=== PATIENT | female | born 1935 | race Caucasian/White ===

== ENCOUNTER → 2017-10-09 13:54 | Outpatient (CLI) | payer MEDICARE, OTHER, SELFPAY ==
[2017-10-09 14:15] LABS: International Normalized Ratio 2.6; Prothrombin Time (Protime)PT. 28.2 SECONDS (11.7-14.9)
== END ==
PROVIDERS: Visit Provider Internal Medicine Cardiovascular Disease
DX: I48.0 Paroxysmal atrial fibrillation (principal)
CPT/HCPCS: 85610

== ENCOUNTER → 2017-10-15 10:35 | Day surgery (SDC) | payer MEDICARE, OTHER, SELFPAY ==
[2017-10-15 11:21] LABS: Prothrombin Time Fingerstick 36.1 SEC (11.9-14.4)
--- NOTE | 2017-10-15 12:32 | PCM.OP.BLANK ---
Operative Report Date of Procedure: 10/15/17 CONSCIOUS SEDATION REPORT DATE OF SERVICE: October 15, 2017 BRIEF HISTORY OF PRESENT ILLNESS: The patient is an 82-year-old female who presented to the hospital today for an elective outpatient cardioversion due to underlying atrial fibrillation. The patient's last surface echocardiogram revealed an intact, normal ejection fraction. The patient is currently anticoagulated on Coumadin and receives amiodarone daily. She has a long-standing history of exertional dyspnea and chronic diastolic dysfunction. She denies any previous anesthetic complications. She has no known history of obstructive sleep apnea, asthma or COPD. The patient does not utilize supplemental oxygen at her baseline. PHYSICAL EXAMINATION: VITAL SIGNS: Reviewed and were acceptable. GENERAL: The patient is a pleasant female, in no apparent distress, speaking in full sentences. HEENT: Normocephalic, atraumatic. Mucous membranes are moist and pink. Good mouth opening noted. Trachea is midline. Good neck mobility. CHEST: S1, S2 irregularly irregular. No murmurs, rubs or gallops were noted. LUNGS: Clear to auscultation bilaterally without appreciable wheezes, rales or rhonchi. ABDOMEN: Soft, nontender, nondistended. Positive bowel sounds. EXTREMITIES: There is no clubbing, cyanosis or edema. ASA Class: II DESCRIPTION OF PROCEDURE: After confirmation of informed consent, the patient's anesthesia plan was reviewed in detail. Propofol was chosen. Risks and benefits were reviewed and the patient agreed to proceed. At 1210, the patient was given 40 mg of propofol. The patient achieved an appropriate level of sedation and was given a 200 joule synchronized cardioversion by Dr. Salvador at the bedside. This was initially unsuccessful in achieving normal sinus rhythm. Therefore, an additional 20 mg of propofol was administered. However, shortly after the administration of the patient's second bolus of propofol, she spontaneously converted to sinus rhythm. Therefore, a second shock was never delivered. In total, the patient received 60 mg of propofol throughout the procedure. The patient was monitored until 1222, at which time she reached her baseline mental status and function. The patient tolerated the procedure well. COMPLICATIONS: None ESTIMATED BLOOD LOSS: None RECOMMENDATIONS: Okay to recover in usual fashion.
--- NOTE | 2017-10-15 12:53 | PCM.OP.BLANK ---
Operative Report Date of Procedure: 10/15/17 DC cardioversion. Atrial fibrillation. Patient has a history of chronic persistent atrial fibrillation recently started on amiodarone. And brought in for an elective DC cardioversion. Patient is a patient of Dr. Gordon Vanegas. After informed consent was obtained anterior posterior pads were applied appropriately. The patient was seen by Dr. Rod of the medical care division. She was administered 40 mg of intravenous propofol and 200 J of DC cardioversion were applied. The patient reverted to sinus rhythm but then went back into atrial fibrillation intermittently. The patient was then administered at additional 20 mg of intravenous propofol and just before repeat DC cardioversion patient was noted to convert back to sinus rhythm. An EKG was done to confirm the above. Conclusion 1's Successful DC cardioversion to sinus rhythm. Follow-up as per Dr. Vanegas.
== END ==
PROVIDERS: Family Provider Internal Medicine; PCP Internal Medicine; Visit Provider Internal Medicine Cardiovascular Disease
DX: I48.0 Paroxysmal atrial fibrillation (principal); I35.1 Nonrheumatic aortic (valve) insufficiency; I07.1 Rheumatic tricuspid insufficiency; I50.9 Heart failure, unspecified; I27.20 Pulmonary hypertension, unspecified; E78.5 Hyperlipidemia, unspecified; D64.9 Anemia, unspecified; Z79.01 Long term (current) use of anticoagulants; Z79.82 Long term (current) use of aspirin; Z79.899 Other long term (current) drug therapy
CPT/HCPCS: 36416; 85610; 92960; 93005; J7040

== ENCOUNTER → 2018-01-05 09:33 | Outpatient (CLI) | payer MEDICARE, OTHER, SELFPAY ==
--- NOTE | 2018-01-05 09:33 | DT_ITS ---
This patient was seen during an EMR downtime January 04, 2018 - January 11, 2018. This patient may have a combination of paper and electronic documentation or all paper documentation. All documentation is viewable within the e-chart portion of [facility] for each patient visit.
--- NOTE | 2018-01-11 11:12 | PFT ---
INTRODUCTION: The patient is an 82-year-old female who presents for pulmonary function testing secondary to a diagnosis of dyspnea. Respiratory therapy reports good patient effort. Bronchodilators were used during testing. INTERPRETATION: Forced expiration spirometry demonstrates no evidence of a large airways obstructive ventilatory defect. There was no significant response to aerosolized bronchodilators. Spirograms are of good quality and plateau gradually. Body plethysmography was performed and reveals lung volumes to be within normal limits. Diffusing capacity by single breath CO is mildly reduced at 63% of predicted. IMPRESSION: These pulmonary function studies demonstrate the presence of an isolated mild reduction in diffusing capacity. There have been no significant changes since PFTs were last completed in April 2017.
== END ==
PROVIDERS: Family Provider Internal Medicine; PCP Internal Medicine; Visit Provider Internal Medicine Critical Care Medicine
DX: R06.09 Other forms of dyspnea (principal)
CPT/HCPCS: 94060; 94726; 94729

== ENCOUNTER → 2018-01-07 14:16 | Outpatient (CLI) | payer MEDICARE, OTHER, SELFPAY ==
[2018-01-07 11:25] VITALS: PULSE 67; PULSE 71; PULSE 72; PULSE 73; PULSE 77; PULSE 78; PULSE 81; O2SAT 93; O2SAT 94; O2SAT 95; O2SAT 96; O2SAT 97
--- NOTE | 2018-01-07 14:16 | DT_ITS ---
This patient was seen during an EMR downtime January 04, 2018 - January 11, 2018. This patient may have a combination of paper and electronic documentation or all paper documentation. All documentation is viewable within the e-chart portion of [facility] for each patient visit.
--- NOTE | 2018-01-11 11:30 | CPS ---
Testing done by Sandra Abreu RRT.
--- NOTE | 2018-01-11 11:58 | WT_ITS ---
PSN 6 Minute Walk Test - 6 Minute Walk Test 6 Minute Walk Test: 6 Minute Walk Test PSN:6-Minute Walk Test Start: 01/11/18 11: 24 Freq: Status: Active Protocol: [id number].[id number] Document 01/07/18 11:25 [email or web address] (Rec: 01/11/18 11:30 THAIS [id number]) 6 Minute Walk Test Date Performed 01/07/18 Time Performed 11:00 Height 5 ft 8 in Weight: 153 lb Weight in Pounds 153.[address]: Primo Webster Assistive device used: None Pre-test Oxygen Delivery Method Room Air Pulse Ox (%) 95 Pulse Rate (60-100 beats/min) 67 Dyspnea Roman Scale (0-10) 1 Exertion Roman Scale (6-20) 6 1st minute Oxygen Delivery Method Room Air Pulse Ox (%) 94 Pulse Rate (60-100 beats/min) 81 2nd minute Oxygen Delivery Method Room Air Pulse Ox (%) 93 Pulse Rate (60-100 beats/min) 73 3rd minute Oxygen Delivery Method Room Air Pulse Ox (%) 97 Pulse Rate (60-100 beats/min) 71 4th minute Oxygen Delivery Method Room Air Pulse Ox (%) 96 Pulse Rate (60-100 beats/min) 78 5th minute Oxygen Delivery Method Room Air Pulse Ox (%) 94 Pulse Rate (60-100 beats/min) 77 6th minute Oxygen Delivery Method Room Air Pulse Ox (%) 96 Pulse Rate (60-100 beats/min) 72 Post-test Oxygen Delivery Method Room Air Pulse Ox (%) 95 Pulse Rate (60-100 beats/min) 71 Dyspnea Roman Scale (0-10) 1 Exertion Roman Scale (6-20) 6 Full Laps Walked 18 Partial Lap, Number of Tiles Walked 0 Total Distance Walked (ft) 1062 01/11/18 11:30 Cardiopulmonary Services by Yumi Romeo Testing done by Sandra Abreu RRT. Initialized on 01/11/18 11:30 - END OF NOTE - Interpretation Interpretation: The patient ambulated 1062 feet over the course of 6 minutes beginning on room air without assistive devices or breaks. Pretesting oxygen saturation was noted to be 95% on room air. With ambulation, the james oxygen saturation was 93%. There was no significant exertional oxygen desaturation noted. - Recommendations Recommendations: There is no indication for the use of supplemental oxygen at this time.
== END ==
PROVIDERS: Family Provider Internal Medicine; PCP Internal Medicine; Visit Provider Internal Medicine Critical Care Medicine
DX: R06.09 Other forms of dyspnea (principal)
CPT/HCPCS: 94618

== ENCOUNTER → 2018-06-23 08:58 | Outpatient (CLI) | payer MEDICARE, OTHER, SELFPAY ==
[2018-06-23 09:28] LABS: Prothrombin Time (Protime)PT. 37.3 SECONDS (11.7-14.9)
[2018-06-23 09:39] LABS: International Normalized Ratio 3.7
== END ==
PROVIDERS: Family Provider Internal Medicine; PCP Internal Medicine; Referring Provider Internal Medicine Cardiovascular Disease; Visit Provider Internal Medicine Cardiovascular Disease
DX: I48.91 Unspecified atrial fibrillation (principal)
CPT/HCPCS: 85610

== ENCOUNTER → 2018-09-08 13:23 | Outpatient (CLI) | payer MEDICARE, OTHER, SELFPAY ==
[2018-07-05 09:19] VITALS: BMI 24.3
[2018-09-08 13:44] LABS: International Normalized Ratio 2.6; Prothrombin Time (Protime)PT. 28.3 SECONDS (11.7-14.9)
== END ==
PROVIDERS: Family Provider Internal Medicine; PCP Internal Medicine; Referring Provider Internal Medicine Cardiovascular Disease; Visit Provider Internal Medicine Cardiovascular Disease
DX: I48.91 Unspecified atrial fibrillation (principal)
CPT/HCPCS: 85610

== ENCOUNTER → 2018-09-23 15:23 | Outpatient (CLI) | payer MEDICARE, OTHER, SELFPAY ==
[2018-07-05 09:19] VITALS: BMI 24.3
[2018-09-23 16:27] LABS: International Normalized Ratio 2.2; Prothrombin Time (Protime)PT. 24.1 SECONDS (11.7-14.9)
== END ==
PROVIDERS: Family Provider Internal Medicine; PCP Internal Medicine; Referring Provider Internal Medicine Cardiovascular Disease; Visit Provider Internal Medicine Cardiovascular Disease
DX: I48.91 Unspecified atrial fibrillation (principal)
CPT/HCPCS: 85610

== ENCOUNTER → 2018-10-21 15:15 | Outpatient (CLI) | payer MEDICARE, OTHER, SELFPAY ==
[2018-07-05 09:19] VITALS: BMI 24.3
[2018-10-21 15:38] LABS: International Normalized Ratio 2.6; Prothrombin Time (Protime)PT. 28.3 SECONDS (11.7-14.9)
== END ==
PROVIDERS: Family Provider Internal Medicine; PCP Internal Medicine; Referring Provider Internal Medicine Cardiovascular Disease; Visit Provider Internal Medicine Cardiovascular Disease
DX: I48.91 Unspecified atrial fibrillation (principal)
CPT/HCPCS: 85610

== ENCOUNTER → 2018-11-04 15:22 | Outpatient (CLI) | payer MEDICARE, OTHER, SELFPAY ==
[2018-07-05 09:19] VITALS: BMI 24.3
[2018-11-04 16:05] LABS: International Normalized Ratio 3.2; Prothrombin Time (Protime)PT. 32.6 SECONDS (11.7-14.9)
== END ==
PROVIDERS: Family Provider Internal Medicine; PCP Internal Medicine; Referring Provider Internal Medicine Cardiovascular Disease; Visit Provider Internal Medicine Cardiovascular Disease
DX: I48.91 Unspecified atrial fibrillation (principal)
CPT/HCPCS: 85610

== ENCOUNTER 2018-12-21 11:10 | Outpatient (RCR) | payer MEDICARE, OTHER, SELFPAY ==
[2018-07-05 09:19] VITALS: BMI 24.3
[2018-12-08 14:37] LABS: International Normalized Ratio 2.7; Prothrombin Time (Protime)PT. 28.7 SECONDS (11.7-14.9)
[2018-12-21 11:26] LABS: Prothrombin Time Fingerstick 33.7 SEC (11.9-14.4)
== END 2018-12-21 12:00 | disposition home or self-care (01) ==
LOC: MTLAB 11:10
PROVIDERS: Family Provider Internal Medicine; PCP Internal Medicine; Referring Provider Internal Medicine Cardiovascular Disease; Visit Provider Internal Medicine Cardiovascular Disease
DX: I11.0 Hypertensive heart disease with heart failure (principal); I50.32 Chronic diastolic (congestive) heart failure; R06.09 Other forms of dyspnea; T84.84XA Pain due to internal orthopedic prosthetic devices, implants and grafts, initial encounter; I48.91 Unspecified atrial fibrillation; E03.9 Hypothyroidism, unspecified; G47.01 Insomnia due to medical condition; F41.9 Anxiety disorder, unspecified; Z96.652 Presence of left artificial knee joint; Z79.01 Long term (current) use of anticoagulants; Z51.81 Encounter for therapeutic drug level monitoring
CPT/HCPCS: 36415; 36416; 85610

== ENCOUNTER → 2018-12-28 | Outpatient (CLI) | payer MEDICARE, OTHER, SELFPAY ==
[2018-07-05 09:19] VITALS: BMI 24.3
--- NOTE | 2018-12-28 15:58 | PFTCOMP ---
COMPLETE PULMONARY FUNCTION TEST INTERPRETATION Brief HPI: Patient is an 83 year old female, currently under the care of myself, who presents to [facility] for complete pulmonary function tests secondary to diagnosis of dyspnea. Respiratory therapist reports good effort and reproducible results. Interpretation: Forced expiration spirometry shows no large airways obstructive ventilatory defect with an FEV1 of 86% predicted. There is no significant bronchodilator response by strict ATS criteria. Spirograms are of good quality and plateau slowly, indicating slowly emptying areas of the lungs. The respiratory flow volume loop shows decreased expiratory flow rates at high lung volumes consistent with small airways obstruction. Lung volumes by body plethysmography show a normal total lung capacity at 5.16 L, 93% predicted. All other lung volumes are within normal limits. Diffusion capacity by carbon monoxide is at the lower limit of normal at 67% predicted. The airway resistance is normal. Compared to previous pulmonary function tests from 01/05/2018, there has been no significant change. Impression: Isolated reduction diffusion capacity with some stigmata of possible small airways disease. No significant change compared to previous.
== END | disposition home or self-care (01) ==
LOC: PSN 09:55
PROVIDERS: Family Provider Internal Medicine; PCP Internal Medicine; Referring Provider Nurse Practitioner Acute Care; Visit Provider Nurse Practitioner Acute Care
DX: R06.09 Other forms of dyspnea (principal)
CPT/HCPCS: 94060; 94726; 94729

== ENCOUNTER → 2019-01-13 | Outpatient (CLI) | payer MEDICARE, OTHER, SELFPAY ==
[2019-01-13 10:02] VITALS: BMI 23.8
--- NOTE | 2019-01-13 11:29 | RAD_ITS ---
STUDY: X-RAY CHEST REASON FOR EXAM: Female, 83 years old. Congestive heart failure. TECHNIQUE: PA and lateral views of the chest. COMPARISON: Comparison is made with prior examination dated January 25, 2015. FINDINGS: Hyperinflation. There is no demonstrated pleural abnormality. There is mild cardiac enlargement. Normal mediastinum and debi. Normal visualized pulmonary arteries. There is atherosclerotic calcification of the aortic arch with tortuosity. Normal visualized thoracic spine. Healed right rib fracture. There is no demonstrated abnormality of the visualized soft tissue structures of the upper abdomen. RAD/Chest PA and Lateral IMPRESSION: Hyperinflation. No acute abnormality is seen. Electronically Signed: Lang Dasilva, at 12:51 EDT , Service support ,
[2019-01-13 12:00] LABS: Prothrombin Time Fingerstick 39.4 SEC (11.9-14.4)
== END | disposition home or self-care (01) ==
LOC: RAD 11:44 → LAB 11:45
PROVIDERS: Family Provider Internal Medicine; PCP Internal Medicine; Referring Provider Internal Medicine Cardiovascular Disease; Visit Provider Internal Medicine Cardiovascular Disease
DX: I48.91 Unspecified atrial fibrillation (principal); I48.92 Unspecified atrial flutter; I50.32 Chronic diastolic (congestive) heart failure; I48.0 Paroxysmal atrial fibrillation; Z79.01 Long term (current) use of anticoagulants
CPT/HCPCS: 36416; 71046; 85610

== ENCOUNTER → 2019-01-28 | Outpatient (CLI) | payer MEDICARE, OTHER, SELFPAY ==
[2019-01-13 10:02] VITALS: BMI 23.8
[2019-01-26 11:01] VITALS: BMI 23.7
--- NOTE | 2019-01-28 13:02 | ECHOD_ITS ---
Reason For Study: Afib/Flutter Procedure This was a 2D Doppler, Color Flow transthoracic echocardiogram. Exam performed in department. Left Ventricle Normal LV size. Left ventricular systolic function is normal. The estimated ejection fraction is 60 %. Unable to assess diastolic dysfunction. No regional wall motion abnormalities noted. Right Ventricle Normal RV size. Normal systolic function. Atria The left atrium is severely enlarged. The right atrium is severely enlarged. No doppler evidence for ASD. Mitral Valve There is mild to moderate mitral annular calcification. Extension of the mitral annular calcification onto the posterior mitral valve leaflet. Mild diffuse mitral valve thickening. Moderate (2+) mitral valve insufficiency. Tricuspid Valve Normal tricuspid valve. Moderately severe (3+) eccentric tricuspid valve insufficiency. Right ventricular systolic pressure estimated to be 51 mmHg. Aortic Valve Trisinus/trileaflet aortic valve. Mild diffuse aortic valve thickening. Mild focal aortic valve calcification. Aortic sclerosis, no stenosis. Pulmonic Valve The pulmonic valve is not well visualized. Trivial pulmonic valve insufficiency. Great Vessels Normal sized aortic root. Pericardium/Pleural No pericardial effusion. MMode/2D Measurements & Calculations LVIDd: 4.7 cm IVSd: 1.2 cm LVOT diam: 2.0 cm LVIDs: 2.8 cm LVPWd: 0.92 cm LVOT area: 3.0 cm2 RVDd: 3.5 cm FS: 40.4 % Ao root diam: 3.6 cm LAV(MOD-sp4): 102.6 ml Aortic Valve Planimetry: 1.7 cm2 LA dimension: 4.8 cm LA A4 area: 30.2 cm2 RA A4 area: 25.6 cm2 Time Measurements MV dec time: 0.24 sec Doppler Measurements & Calculations MV E max kameron: 93.8 cm/sec Med Peak E' Kameron: 5.1 cm/sec MV V2 max: 101.1 cm/sec E/E' med: 18.5 MV max P.1 mmHg MV V2 mean: 51.8 cm/sec MV mean P.3 mmHg MV V2 VTI: 28.6 cm MVA(VTI): 2.6 cm2 MV P1/2t max kameron: 102.1 cm/sec Ao V2 max: 159.6 cm/sec LV V1 max: 107.8 cm/sec MV P1/2t: 73.6 msec Ao max P.2 mmHg LV V1 max P.7 mmHg MV dec slope: 406.3 cm/sec2 Ao V2 mean: 105.6 cm/sec LV V1 mean P.3 mmHg Ao mean P.1 mmHg LV V1 mean: 69.4 cm/sec MVA(P1/2t): 3.0 cm2 Ao V2 VTI: 36.2 cm LV V1 VTI: 24.6 cm ROSA(I,D): 2.0 cm2 ROSA(V,D): 2.0 cm2 MR max kameron: 530.9 cm/sec SV(LVOT): 73.8 ml PA V2 max: 91.5 cm/sec MR max P.7 mmHg MR mean kameron: 409.4 cm/sec MR mean P.4 mmHg MR VTI: 194.8 cm PI end-d kameron: 175.3 cm/sec TR max kameron: 347.4 cm/sec TR max P.3 mmHg Interpretation Summary Left ventricular systolic function is normal. The estimated ejection fraction is 60 %. The left atrium is severely enlarged. The right atrium is severely enlarged. There is mild to moderate mitral annular calcification. Extension of the mitral annular calcification onto the posterior mitral valve leaflet. Mild diffuse mitral valve thickening. Moderate (2+) mitral valve insufficiency. Moderately severe (3+) eccentric tricuspid valve insufficiency. Aortic sclerosis, no stenosis. Trivial pulmonic valve insufficiency. Right ventricular systolic pressure estimated to be 51 mmHg. Unable to assess diastolic dysfunction. Ordering Physician: Kash Babin Referring Physician: Kash Babin Performed By: Vignesh Prieto RCS
== END | disposition home or self-care (01) ==
LOC: CVS 13:01
PROVIDERS: Family Provider Internal Medicine; PCP Internal Medicine; Referring Provider Internal Medicine Cardiovascular Disease; Visit Provider Internal Medicine Cardiovascular Disease
DX: I27.20 Pulmonary hypertension, unspecified (principal); I48.91 Unspecified atrial fibrillation; I48.92 Unspecified atrial flutter; I50.32 Chronic diastolic (congestive) heart failure; I50.23 Acute on chronic systolic (congestive) heart failure
CPT/HCPCS: 93225; 93226; 93306

== ENCOUNTER 2019-03-01 10:17 | Outpatient (RCR) | payer MEDICARE, OTHER, SELFPAY ==
[2018-07-05 09:19] VITALS: BMI 24.3
[2019-01-26 11:01] VITALS: BMI 23.7
[2019-02-10 13:16] LABS: Prothrombin Time Fingerstick 42.2 SEC (11.9-14.4)
[2019-02-10 14:40] LABS: International Normalized Ratio 3.4; Prothrombin Time (Protime)PT. 34.3 SECONDS (11.7-14.9)
[2019-03-01 12:22] LABS: International Normalized Ratio 4.4; Prothrombin Time (Protime)PT. 42.2 SECONDS (11.7-14.9)
[2019-03-01 12:31] LABS: ALB/GLOB Ratio 0.9 RATIO (0.9-2.4); AST(SGOT) 29 U/L (15-37); Alanine Aminotransfer ALT/SGPT 29 U/L (13-56); Albumin, Serum 3.8 g/dL (3.2-5.0); Alkaline Phosphatase 90 U/L (45-117); Anion Gap 6 (5-15); BUN 16 mg/dL (7-18); BUN/Creat Ratio 15.5 RATIO (10-20); Calcium,Total 8.7 mg/dL (8.5-10.1); Chloride 102 mmol/L (98-107); Creatinine, Serum 1.03 mg/dL (0.55-1.02); EST Glomerular Filtration Rate 55 mL/min (>60); Est Glom Filt Rate - Afr Amer 66 mL/min (>60); Globulin 4.1 g/dL (2.2-4.2); Glucose 68 mg/dL (74-106); Protein, Total 7.9 g/dL (6.4-8.2); Sodium Level 139 mmol/L (136-145)
[2019-03-01 12:36] LABS: Vitamin D,25 Hydroxy 32.4 ng/mL (29.95-100.01)
== END 2019-03-02 23:59 ==
LOC: BIMLAB 10:17
PROVIDERS: Internal Medicine; Family Provider Internal Medicine; PCP Internal Medicine; Referring Provider Internal Medicine Cardiovascular Disease; Visit Provider Internal Medicine Cardiovascular Disease
DX: I48.91 Unspecified atrial fibrillation (principal); I11.0 Hypertensive heart disease with heart failure; I50.32 Chronic diastolic (congestive) heart failure; R06.09 Other forms of dyspnea; T84.84XA Pain due to internal orthopedic prosthetic devices, implants and grafts, initial encounter; E03.9 Hypothyroidism, unspecified; G47.01 Insomnia due to medical condition; F41.9 Anxiety disorder, unspecified; Z96.652 Presence of left artificial knee joint; Z51.81 Encounter for therapeutic drug level monitoring; Z79.01 Long term (current) use of anticoagulants; M85.80 Other specified disorders of bone density and structure, unspecified site
CPT/HCPCS: 36415; 36416; 80053; 82306; 85610

== ENCOUNTER → 2019-03-08 | Outpatient (CLI) | payer MEDICARE, OTHER, SELFPAY ==
[2019-03-01 09:27] VITALS: BMI 23.6
--- NOTE | 2019-03-08 09:36 | BD_ITS ---
STUDY: DUAL ENERGY X-RAY ABSORPTIOMETRY / DXA REASON FOR EXAM: Female, 83 years old. The patient is postmenopausal. Loss of height. TECHNIQUE: Bone Mineral Density (BMD) measurements of lumbar spine and bilateral hips were obtained. COMPARISON: Comparison is made with prior examination dated March 13, 2003. FINDINGS: Lumbar Spine (L1-L4): g/cm2 (0.888) / T-score (-2.4) / Z-score (-0.6) Findings are suggestive of osteopenia with a high fracture risk. Left Femur Total: g/cm2 (0.733) / T-score (-2.2) / Z-score (0.0) Left Femoral Neck: g/cm2 (0.665) / T-score (-2.7) / Z-score (-0.4) Right Femur Total: g/cm2 (0.727) / T-score (-2.2) / Z-score (-0.1) Right Femoral Neck: g/cm2 (0.687) / T-score (-2.5) / Z-score (-0.3) The T-Scores on the most recent prior examination were: Lumbar Spine (L1-L4): There has been worsening of bone density since the previous examination. Left Femur Total: which represents a worsening of 22.5%. BD/DXA BONE DENS W/VERT FX ASMT IMPRESSION: The patient is considered osteoporotic as outlined below according to World Stephen Organization (WHO) criteria with a high fracture risk. There has been worsening of bone density since the previous examination. Reference Information: The T-score is the number of standard deviations above or below the standard which is normal for young adults at their peak bone mineral density. The World Health Organization (WHO) interprets the T-scores as follows: Above -1 Normal bone density Between -1 and -2.5 Osteopenia Equal to / or below -2.5 Osteoporosis As a practical clinical guideline, osteopenia may be graded as follows: Mild -1 through -1.5 Moderate -1.6 through -2.0 Severe -2.1 through -2.4 The Z-score is the number of standard deviations above or below age-matched controls. A Z-score of less than -1.5 would be considered abnormal. References: 1. NIH Osteoporosis and Related Bone Diseases http://www.osteo.org 2. International Society for Clinical Densitometry http://www.iscd.org 3. National Osteoporosis Foundation http://www.nof.org Electronically Signed: Lang Dasilva, at 10:58 EDT , Service support ,
== END | disposition home or self-care (01) ==
LOC: OPBD 09:30
PROVIDERS: Family Provider Internal Medicine; PCP Internal Medicine; Referring Provider Internal Medicine; Visit Provider Internal Medicine
DX: Z78.0 Asymptomatic menopausal state (principal)
CPT/HCPCS: 77085

== ENCOUNTER 2019-04-01 11:12 | Outpatient (RCR) | payer MEDICARE, SELFPAY ==
[2018-07-05 09:19] VITALS: BMI 24.3
[2019-03-01 09:27] VITALS: BMI 23.6
[2019-03-03 14:29] LABS: International Normalized Ratio 2.5; Prothrombin Time (Protime)PT. 26.9 SECONDS (11.7-14.9)
[2019-03-08 12:03] LABS: International Normalized Ratio 1.8; Prothrombin Time (Protime)PT. 20.7 SECONDS (11.7-14.9)
[2019-03-09 09:25] LABS: Prothrombin Time Fingerstick 23.9 SEC (11.9-14.4)
[2019-03-16 12:43] LABS: International Normalized Ratio 1.6; Prothrombin Time (Protime)PT. 19.2 SECONDS (11.7-14.9)
[2019-03-25 12:43] LABS: International Normalized Ratio 2.2; Prothrombin Time (Protime)PT. 24.5 SECONDS (11.7-14.9)
[2019-04-01 11:48] LABS: International Normalized Ratio 2.1; Prothrombin Time (Protime)PT. 23.2 SECONDS (11.7-14.9)
== END 2019-04-01 13:00 | disposition home or self-care (01) ==
LOC: LAB 11:12
PROVIDERS: Family Provider Internal Medicine; PCP Internal Medicine; Referring Provider Internal Medicine Cardiovascular Disease; Visit Provider Internal Medicine Cardiovascular Disease
DX: I11.0 Hypertensive heart disease with heart failure (principal); I50.32 Chronic diastolic (congestive) heart failure; I48.91 Unspecified atrial fibrillation; R06.09 Other forms of dyspnea; T84.84XA Pain due to internal orthopedic prosthetic devices, implants and grafts, initial encounter; E03.9 Hypothyroidism, unspecified; G47.01 Insomnia due to medical condition; F41.9 Anxiety disorder, unspecified; Z96.652 Presence of left artificial knee joint; Z51.81 Encounter for therapeutic drug level monitoring; Z79.01 Long term (current) use of anticoagulants; Z78.0 Asymptomatic menopausal state
CPT/HCPCS: 36415; 36416; 77085; 85610

== ENCOUNTER 2019-04-26 14:22 | Outpatient (RCR) | payer MEDICARE, OTHER, SELFPAY ==
[2019-03-01 09:27] VITALS: BMI 23.6
[2019-04-06 13:50] VITALS: BMI 23.7
[2019-04-08 12:10] LABS: International Normalized Ratio 2.8
[2019-04-22 14:36] LABS: Prothrombin Time (Protime)PT. 40.5 SECONDS (11.7-14.9)
[2019-04-22 15:07] LABS: International Normalized Ratio 4.1
[2019-04-26 15:15] LABS: International Normalized Ratio 3.1; Prothrombin Time (Protime)PT. 32.2 SECONDS (11.7-14.9)
== END 2019-04-26 16:00 | disposition home or self-care (01) ==
LOC: LAB 14:22
PROVIDERS: Family Provider Internal Medicine; PCP Internal Medicine; Referring Provider Internal Medicine Cardiovascular Disease; Visit Provider Internal Medicine Cardiovascular Disease
DX: I11.0 Hypertensive heart disease with heart failure (principal); I50.32 Chronic diastolic (congestive) heart failure; I48.91 Unspecified atrial fibrillation; R06.09 Other forms of dyspnea; T84.84XA Pain due to internal orthopedic prosthetic devices, implants and grafts, initial encounter; E03.9 Hypothyroidism, unspecified; G47.01 Insomnia due to medical condition; F41.9 Anxiety disorder, unspecified; Z96.652 Presence of left artificial knee joint; Z51.81 Encounter for therapeutic drug level monitoring; Z79.01 Long term (current) use of anticoagulants; Z78.0 Asymptomatic menopausal state
CPT/HCPCS: 36415; 85610

== ENCOUNTER 2019-05-24 12:30 | Outpatient (RCR) | payer MEDICARE, OTHER, SELFPAY ==
[2019-04-26 15:16] VITALS: BMI 23.7
[2019-05-03 13:45] LABS: International Normalized Ratio 2.5
[2019-05-10 13:28] LABS: International Normalized Ratio 2.5; Prothrombin Time (Protime)PT. 27.3 SECONDS (11.7-14.9)
[2019-05-24 14:01] LABS: International Normalized Ratio 2.7; Prothrombin Time (Protime)PT. 28.9 SECONDS (11.7-14.9)
== END 2019-05-24 18:00 | disposition home or self-care (01) ==
LOC: LAB 12:30
PROVIDERS: Family Provider Internal Medicine; PCP Internal Medicine; Referring Provider Internal Medicine Cardiovascular Disease; Visit Provider Internal Medicine Cardiovascular Disease
DX: I11.0 Hypertensive heart disease with heart failure (principal); I50.32 Chronic diastolic (congestive) heart failure; I48.91 Unspecified atrial fibrillation; R06.09 Other forms of dyspnea; T84.84XA Pain due to internal orthopedic prosthetic devices, implants and grafts, initial encounter; E03.9 Hypothyroidism, unspecified; G47.01 Insomnia due to medical condition; F41.9 Anxiety disorder, unspecified; Z96.652 Presence of left artificial knee joint; Z51.81 Encounter for therapeutic drug level monitoring; Z79.01 Long term (current) use of anticoagulants; Z78.0 Asymptomatic menopausal state
CPT/HCPCS: 36415; 85610

== ENCOUNTER → 2019-06-14 09:37 | Outpatient (CLI) | payer MEDICARE, OTHER, SELFPAY ==
[2019-06-14 09:08] VITALS: BMI 23.7
[2019-06-14 12:25] LABS: Absolute Neutrophil Count 4.2 X10^3/uL (2.0-7.7); Basophil# 0.06 X10^3/uL; Eosinophil# 0.37 X10^3/uL; Eosinophils% 6.1 % (0-5); Hemoglobin 12.2 g/dL (12.0-15.0); Mean Corp Hgb Conc 32.1 g/dL (32-36); Mean Corpuscular Hgb 32.4 pg (27.0-32.0); Mean Corpuscular Volume 101.1 fL (81-99); Monocyte# 0.76 X10^3/uL; Monocyte% 12.6 % (0-10); NRBC Flagged by Analyzer 0 % (0-5); Neutrophil # 4.21 X10^3/uL (2.7-7.7); POSITIVE DIFFERENTIAL YES; Platelet Count 225 K/mm3 (150-450); RBC Distribution Width CV 15.4 % (11.6-14.6); RBC Distribution Width SD 57.2 fl (35.1-43.9); Red Blood Count 3.76 M/mm3 (4.2-5.4)
[2019-06-14 12:26] LABS: International Normalized Ratio 2.5; Prothrombin Time (Protime)PT. 26.8 SECONDS (11.7-14.9)
[2019-06-14 12:27] LABS: Differential Indicated SCAN CRITERIA MET
[2019-06-14 13:06] LABS: Anion Gap 4 (5-15); BUN 16 mg/dL (7-18); BUN/Creat Ratio 16.1 RATIO (10-20); Calcium,Total 8.7 mg/dL (8.5-10.1); Chloride 105 mmol/L (98-107); Creatinine, Serum 0.99 mg/dL (0.55-1.02); EST Glomerular Filtration Rate 57 mL/min (>60); Est Glom Filt Rate - Afr Amer 69 mL/min (>60); Glucose 56 mg/dL (74-106); Potassium 4.3 mmol/L (3.5-5.1); Sodium Level 138 mmol/L (136-145); Thyroid Stim Hormone (TSH) 3.73 uIU/mL (0.358-3.74)
[2019-06-14 13:24] LABS: Platelet Estimate ADEQUATE (ADEQ); Red Cell Morphology N CHROM NORMAL (NORM C&C)
[2019-06-14 13:25] LABS: Anisocytosis RARE
== END ==
PROVIDERS: Internal Medicine Cardiovascular Disease; Family Provider Internal Medicine; PCP Internal Medicine; Visit Provider Internal Medicine
DX: I48.0 Paroxysmal atrial fibrillation (principal); E03.9 Hypothyroidism, unspecified; M81.0 Age-related osteoporosis without current pathological fracture; F41.9 Anxiety disorder, unspecified; I11.0 Hypertensive heart disease with heart failure; I50.32 Chronic diastolic (congestive) heart failure; R06.09 Other forms of dyspnea; G47.01 Insomnia due to medical condition; T84.84XA Pain due to internal orthopedic prosthetic devices, implants and grafts, initial encounter; Z51.81 Encounter for therapeutic drug level monitoring; Z79.01 Long term (current) use of anticoagulants; Z96.662 Presence of left artificial ankle joint
CPT/HCPCS: 36415; 80048; 84443; 85025; 85610

== ENCOUNTER 2019-07-11 12:21 | Outpatient (RCR) | payer MEDICARE, OTHER, SELFPAY ==
[2019-05-25 12:12] VITALS: BMI 23.7
[2019-07-08 09:57] VITALS: BMI 22.4
[2019-07-11 12:54] LABS: International Normalized Ratio 3.1; Prothrombin Time (Protime)PT. 32.1 SECONDS (11.7-14.9)
== END 2019-07-11 18:00 | disposition home or self-care (01) ==
LOC: LAB 12:21
PROVIDERS: Family Provider Internal Medicine; PCP Internal Medicine; Referring Provider Internal Medicine Cardiovascular Disease; Visit Provider Internal Medicine Cardiovascular Disease
DX: I11.0 Hypertensive heart disease with heart failure (principal); I50.32 Chronic diastolic (congestive) heart failure; I48.91 Unspecified atrial fibrillation; R06.09 Other forms of dyspnea; T84.84XA Pain due to internal orthopedic prosthetic devices, implants and grafts, initial encounter; E03.9 Hypothyroidism, unspecified; G47.01 Insomnia due to medical condition; F41.9 Anxiety disorder, unspecified; Z96.652 Presence of left artificial knee joint; Z51.81 Encounter for therapeutic drug level monitoring; Z79.01 Long term (current) use of anticoagulants; Z78.0 Asymptomatic menopausal state
CPT/HCPCS: 36415; 85610

== ENCOUNTER 2019-08-08 13:03 | Outpatient (RCR) | payer MEDICARE, OTHER, SELFPAY ==
[2019-07-08 09:57] VITALS: BMI 22.4
[2019-08-08 13:57] LABS: International Normalized Ratio 2.8; Prothrombin Time (Protime)PT. 29.3 SECONDS (11.7-14.9)
== END 2019-08-08 18:00 | disposition home or self-care (01) ==
LOC: LAB 13:03
PROVIDERS: Family Provider Internal Medicine; PCP Internal Medicine; Referring Provider Internal Medicine Cardiovascular Disease; Visit Provider Internal Medicine Cardiovascular Disease
DX: I11.0 Hypertensive heart disease with heart failure (principal); I50.32 Chronic diastolic (congestive) heart failure; I48.91 Unspecified atrial fibrillation; R06.09 Other forms of dyspnea; T84.84XA Pain due to internal orthopedic prosthetic devices, implants and grafts, initial encounter; E03.9 Hypothyroidism, unspecified; G47.01 Insomnia due to medical condition; F41.9 Anxiety disorder, unspecified; Z96.652 Presence of left artificial knee joint; Z51.81 Encounter for therapeutic drug level monitoring; Z79.01 Long term (current) use of anticoagulants; Z78.0 Asymptomatic menopausal state
CPT/HCPCS: 36415; 85610

== ENCOUNTER 2019-09-06 13:35 | Outpatient (RCR) | payer MEDICARE, OTHER, SELFPAY ==
[2019-09-02 12:33] VITALS: BMI 22.4
[2019-09-06 14:30] LABS: International Normalized Ratio 3.2; Prothrombin Time (Protime)PT. 33.3 SECONDS (11.7-14.9)
== END 2019-09-06 18:00 | disposition home or self-care (01) ==
LOC: LAB 13:35
PROVIDERS: Family Provider Internal Medicine; PCP Internal Medicine; Referring Provider Internal Medicine Cardiovascular Disease; Visit Provider Internal Medicine Cardiovascular Disease
DX: I11.0 Hypertensive heart disease with heart failure (principal); I50.32 Chronic diastolic (congestive) heart failure; I48.91 Unspecified atrial fibrillation; R06.09 Other forms of dyspnea; T84.84XA Pain due to internal orthopedic prosthetic devices, implants and grafts, initial encounter; E03.9 Hypothyroidism, unspecified; G47.01 Insomnia due to medical condition; F41.9 Anxiety disorder, unspecified; Z96.652 Presence of left artificial knee joint; Z51.81 Encounter for therapeutic drug level monitoring; Z79.01 Long term (current) use of anticoagulants; Z78.0 Asymptomatic menopausal state
CPT/HCPCS: 36415; 85610

== ENCOUNTER 2019-10-05 16:53 | Outpatient (RCR) | payer MEDICARE, OTHER, SELFPAY ==
[2019-09-02 12:33] VITALS: BMI 22.4
[2019-10-05 17:43] LABS: Prothrombin Time (Protime)PT. 31.4 SECONDS (11.7-14.9)
== END 2019-10-05 18:00 | disposition home or self-care (01) ==
LOC: LAB 16:53
PROVIDERS: Family Provider Internal Medicine; PCP Internal Medicine; Referring Provider Internal Medicine Cardiovascular Disease; Visit Provider Internal Medicine Cardiovascular Disease
DX: I11.0 Hypertensive heart disease with heart failure (principal); I50.32 Chronic diastolic (congestive) heart failure; I48.91 Unspecified atrial fibrillation; R06.09 Other forms of dyspnea; T84.84XA Pain due to internal orthopedic prosthetic devices, implants and grafts, initial encounter; E03.9 Hypothyroidism, unspecified; G47.01 Insomnia due to medical condition; F41.9 Anxiety disorder, unspecified; Z96.652 Presence of left artificial knee joint; Z51.81 Encounter for therapeutic drug level monitoring; Z79.01 Long term (current) use of anticoagulants
CPT/HCPCS: 36415; 85610

== ENCOUNTER 2019-11-04 11:15 | Outpatient (RCR) | payer MEDICARE, OTHER, SELFPAY ==
[2019-09-02 12:33] VITALS: BMI 22.4
[2019-11-04 12:16] LABS: International Normalized Ratio 2.9; Prothrombin Time (Protime)PT. 30.7 SECONDS (11.7-14.9)
== END 2019-12-01 18:00 | disposition home or self-care (01) ==
LOC: LAB 11:15
PROVIDERS: Family Provider Internal Medicine; PCP Internal Medicine; Referring Provider Internal Medicine Cardiovascular Disease; Visit Provider Internal Medicine Cardiovascular Disease
DX: I11.0 Hypertensive heart disease with heart failure (principal); I50.32 Chronic diastolic (congestive) heart failure; R06.09 Other forms of dyspnea; Z96.652 Presence of left artificial knee joint; T84.84XA Pain due to internal orthopedic prosthetic devices, implants and grafts, initial encounter; I48.91 Unspecified atrial fibrillation; Z51.81 Encounter for therapeutic drug level monitoring; Z79.01 Long term (current) use of anticoagulants; E03.9 Hypothyroidism, unspecified; G47.01 Insomnia due to medical condition; F41.9 Anxiety disorder, unspecified
CPT/HCPCS: 36415; 85610

== ENCOUNTER 2019-12-23 12:53 | Outpatient (RCR) | payer MEDICARE, OTHER, SELFPAY ==
[2019-09-02 12:33] VITALS: BMI 22.4
[2019-12-05 11:59] LABS: International Normalized Ratio 2.4; Prothrombin Time (Protime)PT. 25.6 SECONDS (11.7-14.9)
[2019-12-23 13:45] LABS: Absolute Lymphocyte Count 0.88 X10^3/uL (0.83-4.51); Absolute Neutrophil Count 4.2 X10^3/uL (2.0-7.7); Basophil# 0.07 X10^3/uL; Basophil% 1.1 % (0-1); Eosinophils% 6.4 % (0-5); Hematocrit 40.9 % (37-47); Hemoglobin 12.9 g/dL (12.0-15.0); Lymphocyte # 0.88 X10^3/ul (4.0); Lymphocyte % 14.1 % (19-41); Mean Corp Hgb Conc 31.5 g/dL (32-36); Mean Corpuscular Hgb 31.4 pg (27.0-32.0); Mean Corpuscular Volume 99.5 fL (81-99); Mean Platelet Vol. 8.7 fl (6.2-12.0); Monocyte% 11.2 % (0-10); NRBC Flagged by Analyzer 0 % (0-5); Neutrophil # 4.17 X10^3/uL (2.7-7.7); Platelet Count 239 K/mm3 (150-450); RBC Distribution Width SD 58.4 fl (35.1-43.9); Red Blood Count 4.11 M/mm3 (4.2-5.4); White Blood Count 6.2 K/mm3 (4.4-11.0)
[2019-12-23 13:58] LABS: International Normalized Ratio 2.8; Prothrombin Time (Protime)PT. 28.9 SECONDS (11.7-14.9)
[2019-12-23 14:01] LABS: ALB/GLOB Ratio 0.9 RATIO (0.9-2.4); AST(SGOT) 31 U/L (15-37); Alanine Aminotransfer ALT/SGPT 34 U/L (13-56); Albumin, Serum 3.6 g/dL (3.2-5.0); Alkaline Phosphatase 72 U/L (45-117); Anion Gap 3 (5-15); BUN 21 mg/dL (7-18); BUN/Creat Ratio 18.6 RATIO (10-20); Calcium,Total 9.3 mg/dL (8.5-10.1); Chloride 105 mmol/L (98-107); Creatinine, Serum 1.13 mg/dL (0.55-1.02); EST Glomerular Filtration Rate 49 mL/min (>60); Est Glom Filt Rate - Afr Amer 59 mL/min (>60); Glucose 82 mg/dL (74-106); Potassium 4.7 mmol/L (3.5-5.1); Protein, Total 7.6 g/dL (6.4-8.2); Sodium Level 139 mmol/L (136-145)
== END 2019-12-23 18:00 | disposition home or self-care (01) ==
LOC: LAB 12:53
PROVIDERS: Family Provider Internal Medicine; PCP Internal Medicine; Referring Provider Internal Medicine Cardiovascular Disease; Visit Provider Internal Medicine Cardiovascular Disease
DX: I48.0 Paroxysmal atrial fibrillation (principal); Z79.01 Long term (current) use of anticoagulants
CPT/HCPCS: 36415; 80053; 85025; 85610

== ENCOUNTER 2020-01-17 12:17 | Outpatient (RCR) | payer MEDICARE, OTHER, SELFPAY ==
[2019-12-21 10:20] VITALS: BMI 22.4
[2020-01-04 11:30] VITALS: BMI 23.0
[2020-01-17 13:32] LABS: T4 Total, Thyroxin 12.6 ug/dL (4.8-13.9); Thyroid Stim Hormone (TSH) 2.85 uIU/mL (0.358-3.74)
[2020-01-17 13:33] LABS: International Normalized Ratio 3.1; Prothrombin Time (Protime)PT. 31.8 SECONDS (11.7-14.9)
== END 2020-01-17 18:00 | disposition home or self-care (01) ==
LOC: LAB 12:17
PROVIDERS: Family Provider Internal Medicine; PCP Internal Medicine; Referring Provider Internal Medicine Cardiovascular Disease; Visit Provider Internal Medicine Cardiovascular Disease
DX: I48.0 Paroxysmal atrial fibrillation (principal); Z79.01 Long term (current) use of anticoagulants
CPT/HCPCS: 36415; 84436; 84443; 85610

== ENCOUNTER → 2020-01-31 | Outpatient (CLI) | payer MEDICARE, OTHER, SELFPAY ==
[2020-01-04 11:30] VITALS: BMI 23.0
[2020-01-31 09:49] LABS: Cholesterol 187 mg/dL (200); High Density Lipoprotein 84 mg/dL; Triglycerides 75 mg/dL; Very Low Density Lipoprotein 15 mg/dL (5-40)
== END | disposition home or self-care (01) ==
LOC: LAB 08:57
PROVIDERS: PCP Internal Medicine; Referring Provider Internal Medicine Cardiovascular Disease; Visit Provider Internal Medicine Cardiovascular Disease
DX: E78.00 Pure hypercholesterolemia, unspecified (principal); I10 Essential (primary) hypertension; I27.20 Pulmonary hypertension, unspecified; I34.0 Nonrheumatic mitral (valve) insufficiency; I36.1 Nonrheumatic tricuspid (valve) insufficiency; I48.0 Paroxysmal atrial fibrillation; Z79.01 Long term (current) use of anticoagulants; Z79.899 Other long term (current) drug therapy
CPT/HCPCS: 36415; 80061

== ENCOUNTER → 2020-02-13 07:35 | Outpatient (CLI) | payer MEDICARE, OTHER, SELFPAY ==
[2020-01-04 11:30] VITALS: BMI 23.0
--- NOTE | 2020-02-13 07:36 | ECHOD_ITS ---
Reason For Study: Valvular Heart Disease Procedure This was a 2D Doppler, Color Flow transthoracic echocardiogram. The exam was of adequate technical quality. Exam performed in department. Left Ventricle Normal LV size. Left ventricular systolic function is normal. The estimated ejection fraction is 55 %. No regional wall motion abnormalities noted. Right Ventricle Normal RV size. Normal systolic function. Atria The left atrium is severely enlarged. The right atrium is severely enlarged. No doppler evidence for ASD. Mitral Valve There is mild to moderate mitral annular calcification. Extension of the mitral annular calcification of the base of the posterior mitral valve leaflet. Moderate (2+) mitral valve insufficiency. Tricuspid Valve Normal tricuspid valve. Moderate (2+) tricuspid valve insufficiency. Right ventricular systolic pressure estimated to be 50 mmHg. Aortic Valve Trisinus/trileaflet aortic valve. Mild diffuse aortic valve thickening. Mild focal aortic valve calcification. Mild aortic stenosis. Pulmonic Valve The pulmonic valve is not well visualized. Trivial pulmonic valve insufficiency. Great Vessels Normal sized aortic root. Pericardium/Pleural No pericardial effusion. MMode/2D Measurements & Calculations LVIDd: 4.8 cm IVSd: 1.2 cm LVOT diam: 2.0 cm LVIDs: 3.4 cm LVPWd: 0.84 cm LVOT area: 3.1 cm2 RVDd: 3.3 cm FS: 30.2 % Ao root diam: 3.2 cm LAV(MOD-bp): 79.7 ml LVAd ap4: 20.0 cm2 LAV(MOD-bp) Indexed: 43.4 ml/m2 EDV(MOD-sp4): 53.9 ml LAV(MOD-sp2): 78.7 ml EDV(sp4-el): 52.0 ml LAV(MOD-sp4): 71.2 ml LVAs ap4: 12.3 cm2 ESV(MOD-sp4): 24.5 ml ESV(sp4-el): 22.7 ml EF(MOD-sp4): 54.6 % EF(sp4-el): 56.4 % SV(MOD-sp4): 29.4 ml SV(sp4-el): 29.3 ml LA A4 area: 24.5 cm2 LA dimension(2D): 5.2 cm RA A4 area: 26.5 cm2 Doppler Measurements & Calculations MV E max kameron: 60.5 cm/sec Lat Peak E' Kameron: 10.1 cm/sec Med Peak E' Kameron: 6.3 cm/sec E/E' lat: 6.0 E/E' med: 9.7 Ao V2 max: 141.7 cm/sec LV V1 max: 85.7 cm/sec PA V2 max: 82.0 cm/sec Ao max P.0 mmHg LV V1 max P.9 mmHg Ao V2 mean: 102.1 cm/sec Ao mean P.5 mmHg Ao V2 VTI: 26.6 cm ROSA(V,D): 1.9 cm2 TR max kameron: 325.1 cm/sec TR max P.3 mmHg Interpretation Summary Left ventricular systolic function is normal. The estimated ejection fraction is 55 %. The left atrium is severely enlarged. The right atrium is severely enlarged. There is mild to moderate mitral annular calcification. Extension of the mitral annular calcification of the base of the posterior mitral valve leaflet. Moderate (2+) mitral valve insufficiency. Moderate (2+) tricuspid valve insufficiency. Mild aortic stenosis. Trivial pulmonic valve insufficiency. Right ventricular systolic pressure estimated to be 50 mmHg. Transmitral diastolic flow velocities suggest diastolic dysfunction (pseudonormal pattern). Ordering Physician: Kash Babin Referring Physician: Agnieszka Fish Performed By: Evie Rene, GIOVANNA, RVT
--- NOTE | 2020-02-13 07:36 | RAD_ITS ---
STUDY: X-RAY CHEST REASON FOR EXAM: Female, 84 years old patient on amiodarone therapy. NO current chest complaints. TECHNIQUE: PA and lateral views of the chest. COMPARISON: January 13, 2019. FINDINGS: The lungs are clear and hyperexpanded. There is no demonstrated pleural abnormality. There is mild cardiac enlargement. Normal mediastinum and debi. Normal visualized pulmonary arteries. There is atherosclerotic calcification of the aortic arch with tortuosity. There is demineralization of the osseous structures. There is a moderate compression fracture of T12. There is no demonstrated abnormality of the visualized soft tissue structures of the upper abdomen. RAD/Chest PA and Lateral IMPRESSION: COPD and cardiomegaly without radiographic evidence of acute cardiopulmonary disease. Electronically Signed: Ilene Mayo MD at 5:00 EDT , Service support ,
--- NOTE | 2020-02-13 12:42 | PFT ---
INTRODUCTION: The patient is an 84-year-old female that presents for pulmonary function studies secondary to a diagnosis of atrial fibrillation on amiodarone therapy. Respiratory therapy reports good patient effort. Bronchodilators were used during testing. INTERPRETATION: Forced expiration spirometry demonstrates no evidence of a large airways obstructive ventilatory defect. Although there was technically no significant response to aerosolized bronchodilators, the patient did have a rather robust mid flow response. Spirograms are of good quality and plateau gradually. Body plus tomography was performed and reveals lung volumes to be within normal limits. Diffusing capacity by single breath CO is at the lower limits of normal at 65% of predicted. There have been little changes in the patient's pulmonary function studies from December 2018. IMPRESSION: Possible stigmata of small airways disease. Overall, the patient's pulmonary function studies have remained stable since December 2018.
== END ==
PROVIDERS: PCP Internal Medicine; Referring Provider Internal Medicine Cardiovascular Disease; Visit Provider Internal Medicine Cardiovascular Disease
DX: I34.0 Nonrheumatic mitral (valve) insufficiency (principal); I36.1 Nonrheumatic tricuspid (valve) insufficiency; I48.0 Paroxysmal atrial fibrillation; I27.20 Pulmonary hypertension, unspecified; E78.00 Pure hypercholesterolemia, unspecified; I10 Essential (primary) hypertension; Z79.01 Long term (current) use of anticoagulants; Z79.899 Other long term (current) drug therapy
CPT/HCPCS: 36415; 71046; 85610; 93306; 94060; 94726; 94729

== ENCOUNTER 2020-02-13 09:33 | Outpatient (RCR) | payer MEDICARE, OTHER, SELFPAY ==
[2020-01-04 11:30] VITALS: BMI 23.0
[2020-02-13 10:27] LABS: International Normalized Ratio 2.5; Prothrombin Time (Protime)PT. 26.5 SECONDS (11.7-14.9)
== END 2020-02-13 18:00 | disposition home or self-care (01) ==
LOC: LAB 09:33
PROVIDERS: Family Provider Internal Medicine; PCP Internal Medicine; Referring Provider Internal Medicine Cardiovascular Disease; Visit Provider Internal Medicine Cardiovascular Disease
DX: I48.0 Paroxysmal atrial fibrillation (principal); Z79.01 Long term (current) use of anticoagulants
CPT/HCPCS: 36415; 85610

== ENCOUNTER 2020-03-27 11:26 | Outpatient (RCR) | payer MEDICARE, OTHER, SELFPAY ==
[2020-02-15 10:33] VITALS: BMI 23.0
[2020-03-13 12:23] LABS: International Normalized Ratio 1.8; Prothrombin Time (Protime)PT. 20.7 SECONDS (11.7-14.9)
[2020-03-27 12:47] LABS: International Normalized Ratio 2.9
== END 2020-04-02 18:00 | disposition home or self-care (01) ==
LOC: LAB 11:26
PROVIDERS: Family Provider Internal Medicine; PCP Internal Medicine; Referring Provider Internal Medicine Cardiovascular Disease; Visit Provider Internal Medicine Cardiovascular Disease
DX: I48.0 Paroxysmal atrial fibrillation (principal); Z79.01 Long term (current) use of anticoagulants
CPT/HCPCS: 36415; 85610

== ENCOUNTER 2020-04-17 13:38 | Outpatient (RCR) | payer MEDICARE, OTHER, SELFPAY ==
[2020-02-15 10:33] VITALS: BMI 23.0
[2020-04-17 14:38] LABS: Prothrombin Time (Protime)PT. 34.7 SECONDS (11.7-14.9)
[2020-04-17 14:44] LABS: International Normalized Ratio 3.5
== END 2020-04-17 18:00 | disposition home or self-care (01) ==
LOC: LAB 13:38
PROVIDERS: Family Provider Internal Medicine; PCP Internal Medicine; Referring Provider Internal Medicine Cardiovascular Disease; Visit Provider Internal Medicine Cardiovascular Disease
DX: I48.0 Paroxysmal atrial fibrillation (principal); Z79.01 Long term (current) use of anticoagulants
CPT/HCPCS: 36415; 85610

== ENCOUNTER 2020-05-23 15:18 | Outpatient (RCR) | payer MEDICARE, OTHER, SELFPAY ==
[2020-05-02 09:16] VITALS: BMI 23.1
[2020-05-07 12:30] LABS: Prothrombin Time (Protime)PT. 39.6 SECONDS (11.7-14.9)
[2020-05-07 12:39] LABS: International Normalized Ratio 4.1
[2020-05-09 14:00] LABS: International Normalized Ratio 2.1; Prothrombin Time (Protime)PT. 23.1 SECONDS (11.7-14.9)
[2020-05-16 12:10] LABS: International Normalized Ratio 2.1; Prothrombin Time (Protime)PT. 23.4 SECONDS (11.7-14.9)
[2020-05-23 17:04] LABS: International Normalized Ratio 2.5; Prothrombin Time (Protime)PT. 26.9 SECONDS (11.7-14.9)
== END 2020-05-23 18:00 | disposition home or self-care (01) ==
LOC: LAB 15:18
PROVIDERS: Family Provider Internal Medicine; PCP Internal Medicine; Referring Provider Internal Medicine Cardiovascular Disease; Visit Provider Internal Medicine Cardiovascular Disease
DX: I48.0 Paroxysmal atrial fibrillation (principal); Z79.01 Long term (current) use of anticoagulants
CPT/HCPCS: 36415; 85610

== ENCOUNTER 2020-06-25 09:10 | Outpatient (RCR) | payer MEDICARE, OTHER, SELFPAY ==
[2020-05-23 15:37] VITALS: BMI 23.2
[2020-06-08 12:50] LABS: International Normalized Ratio 3.4; Prothrombin Time (Protime)PT. 34.4 SECONDS (11.7-14.9)
[2020-06-25 10:09] LABS: AST(SGOT) 40 U/L (15-37); Alanine Aminotransfer ALT/SGPT 46 U/L (13-56); Albumin, Serum 3.5 g/dL (3.2-5.0); Alkaline Phosphatase 73 U/L (45-117); Bilirubin, Direct 0.25 mg/dL (0.00-0.30); Cholesterol 176 mg/dL (200); Globulin 3.8 g/dL (2.2-4.2); High Density Lipoprotein 88 mg/dL; Protein, Total 7.3 g/dL (6.4-8.2); Triglycerides 62 mg/dL; Very Low Density Lipoprotein 12 mg/dL (5-40)
[2020-06-25 10:15] LABS: Prothrombin Time (Protime)PT. 34.7 SECONDS (11.7-14.9)
[2020-06-25 10:28] LABS: International Normalized Ratio 3.5
== END 2020-06-25 18:00 | disposition home or self-care (01) ==
LOC: LAB 09:10
PROVIDERS: Family Provider Internal Medicine; PCP Internal Medicine; Referring Provider Internal Medicine Cardiovascular Disease; Visit Provider Internal Medicine Cardiovascular Disease
DX: I48.0 Paroxysmal atrial fibrillation (principal); Z79.01 Long term (current) use of anticoagulants; E78.00 Pure hypercholesterolemia, unspecified
CPT/HCPCS: 36415; 80061; 80076; 85610

== ENCOUNTER 2020-07-30 12:03 | Outpatient (RCR) | payer MEDICARE, OTHER, SELFPAY ==
[2020-07-02 10:37] VITALS: BMI 23.6
[2020-07-30 12:49] LABS: International Normalized Ratio 2.8; Prothrombin Time (Protime)PT. 29.4 SECONDS (11.7-14.9)
== END 2020-07-30 18:00 | disposition home or self-care (01) ==
LOC: LAB 12:03
PROVIDERS: Family Provider Internal Medicine; PCP Internal Medicine; Referring Provider Internal Medicine Cardiovascular Disease; Visit Provider Internal Medicine Cardiovascular Disease
DX: I48.0 Paroxysmal atrial fibrillation (principal); Z79.01 Long term (current) use of anticoagulants
CPT/HCPCS: 36415; 85610

== ENCOUNTER 2020-08-27 11:45 | Outpatient (RCR) | payer MEDICARE, OTHER, SELFPAY ==
[2020-07-02 10:37] VITALS: BMI 23.6
[2020-08-27 12:16] LABS: International Normalized Ratio 2.6; Prothrombin Time (Protime)PT. 27.8 SECONDS (11.7-14.9)
== END 2020-08-27 18:00 | disposition home or self-care (01) ==
LOC: LAB 11:45
PROVIDERS: Family Provider Internal Medicine; PCP Internal Medicine; Referring Provider Internal Medicine Cardiovascular Disease; Visit Provider Internal Medicine Cardiovascular Disease
DX: I48.0 Paroxysmal atrial fibrillation (principal); Z79.01 Long term (current) use of anticoagulants
CPT/HCPCS: 36415; 85610

== ENCOUNTER → 2020-09-24 10:06 | Outpatient (CLI) | payer MEDICARE, OTHER, SELFPAY ==
[2020-09-24 09:34] VITALS: BMI 24.1
[2020-09-24 13:01] LABS: International Normalized Ratio 2.5; Prothrombin Time (Protime)PT. 26.6 SECONDS (11.7-14.9)
== END ==
PROVIDERS: PCP Internal Medicine; Visit Provider Internal Medicine Cardiovascular Disease
DX: I48.0 Paroxysmal atrial fibrillation (principal); Z79.01 Long term (current) use of anticoagulants
CPT/HCPCS: 36415; 85610

== ENCOUNTER 2020-10-25 12:44 | Outpatient (RCR) | payer MEDICARE, OTHER, SELFPAY ==
[2020-07-02 10:37] VITALS: BMI 23.6
[2020-09-24 09:34] VITALS: BMI 24.1
[2020-10-25 13:47] LABS: International Normalized Ratio 2.3; Prothrombin Time (Protime)PT. 24.7 SECONDS (11.7-14.9)
== END 2020-10-25 18:00 | disposition home or self-care (01) ==
LOC: LAB 12:44
PROVIDERS: Family Provider Internal Medicine; PCP Internal Medicine; Referring Provider Internal Medicine Cardiovascular Disease; Visit Provider Internal Medicine Cardiovascular Disease
DX: I48.0 Paroxysmal atrial fibrillation (principal); Z79.01 Long term (current) use of anticoagulants
CPT/HCPCS: 36415; 85610

== ENCOUNTER 2020-11-16 10:04 | Outpatient (RCR) | payer MEDICARE, OTHER, SELFPAY ==
[2020-09-24 09:34] VITALS: BMI 24.1
[2020-11-16 11:29] LABS: International Normalized Ratio 2.5; Prothrombin Time (Protime)PT. 26.3 SECONDS (11.7-14.9)
== END 2020-11-16 18:00 | disposition home or self-care (01) ==
LOC: LAB 10:04
PROVIDERS: Family Provider Internal Medicine; PCP Internal Medicine; Referring Provider Internal Medicine Cardiovascular Disease; Visit Provider Internal Medicine Cardiovascular Disease
DX: I48.0 Paroxysmal atrial fibrillation (principal); Z79.01 Long term (current) use of anticoagulants
CPT/HCPCS: 36415; 85610

== ENCOUNTER 2020-12-24 10:49 | Outpatient (RCR) | payer MEDICARE, OTHER, SELFPAY ==
[2020-09-24 09:34] VITALS: BMI 24.1
[2020-12-24 10:17] VITALS: BMI 24.0
[2020-12-24 12:42] LABS: Absolute Lymphocyte Count 0.64 X10^3/uL (0.83-4.51); Absolute Neutrophil Count 3.9 X10^3/uL (2.0-7.7); Basophil# 0.03 X10^3/uL; Basophil% 0.5 % (0-1); Eosinophil# 0.19 X10^3/uL; Eosinophils% 3.4 % (0-5); Hematocrit 39.1 % (37-47); Hemoglobin 12.2 g/dL (12.0-15.0); Lymphocyte # 0.64 X10^3/ul (0.83-4.51); Lymphocyte % 11.5 % (19-41); Mean Corp Hgb Conc 31.2 g/dL (32-36); Mean Corpuscular Hgb 31.9 pg (27.0-32.0); Mean Corpuscular Volume 102.1 fL (81-99); Mean Platelet Vol. 9.1 fl (6.2-12.0); Monocyte# 0.78 X10^3/uL; NRBC Flagged by Analyzer 0 % (0-5); Neutrophil % 70.2 % (47-70); Platelet Count 178 K/mm3 (150-450); RBC Distribution Width CV 15.5 % (11.6-14.6); RBC Distribution Width SD 58.1 fl (35.1-43.9); Red Blood Count 3.83 M/mm3 (4.2-5.4); White Blood Count 5.6 K/mm3 (4.4-11.0)
[2020-12-24 12:53] LABS: International Normalized Ratio 3.4; Prothrombin Time (Protime)PT. 33.3 SECONDS (11.7-14.9)
[2020-12-24 13:02] LABS: AST(SGOT) 33 U/L (15-37); Alanine Aminotransfer ALT/SGPT 35 U/L (13-56); Albumin, Serum 3.5 g/dL (3.2-5.0); Alkaline Phosphatase 60 U/L (45-117); Anion Gap 7 (5-15); BUN 14 mg/dL (7-18); BUN/Creat Ratio 12.4 RATIO (10-20); Calcium,Total 8.5 mg/dL (8.5-10.1); Chloride 103 mmol/L (98-107); Creatinine, Serum 1.13 mg/dL (0.55-1.02); EST Glomerular Filtration Rate 49 mL/min (>60); Est Glom Filt Rate - Afr Amer 59 mL/min (>60); Globulin 3.6 g/dL (2.2-4.2); Glucose 85 mg/dL (74-106); Potassium 4.2 mmol/L (3.5-5.1); Protein, Total 7.1 g/dL (6.4-8.2); Sodium Level 141 mmol/L (136-145)
== END 2020-12-31 23:59 ==
LOC: BIMLAB 10:49
PROVIDERS: Family Provider Internal Medicine; PCP Internal Medicine; Referring Provider Internal Medicine Cardiovascular Disease; Visit Provider Internal Medicine Cardiovascular Disease
DX: Z79.01 Long term (current) use of anticoagulants (principal); I48.0 Paroxysmal atrial fibrillation
CPT/HCPCS: 36415; 80053; 85025; 85610

== ENCOUNTER → 2021-01-04 12:42 | Outpatient (CLI) | payer MEDICARE, OTHER, SELFPAY ==
[2020-12-24 10:17] VITALS: BMI 24.0
--- NOTE | 2021-01-04 12:43 | ECHOD_ITS ---
Reason For Study: Murmur Procedure This was a 2D Doppler, Color Flow transthoracic echocardiogram. The exam was of adequate technical quality. Exam performed in department. Left Ventricle Normal LV size. Left ventricular systolic function is normal. The estimated ejection fraction is 60 %. No regional wall motion abnormalities noted. Right Ventricle Normal RV size. Normal systolic function. Atria The left atrium is severely enlarged. The right atrium is severely enlarged. No doppler evidence for ASD. Mitral Valve There is moderate mitral annular calcification. Extension of the mitral annular calcification onto the base of the posterior mitral valve leaflet. Mild diffuse mitral valve thickening. Mild-Moderate (1-2+) mitral valve insufficiency. Tricuspid Valve Normal tricuspid valve. Moderate (2+) tricuspid valve insufficiency. Right ventricular systolic pressure estimated to be 58 mmHg. Aortic Valve Trisinus/trileaflet aortic valve. Mild diffuse aortic valve thickening. Mild focal aortic valve calcification. Mild aortic stenosis. Pulmonic Valve The pulmonic valve is not well visualized. Trivial pulmonic valve insufficiency. Great Vessels Normal sized aortic root. Calcified aortic root. Pericardium/Pleural No pericardial effusion. MMode/2D Measurements & Calculations LVIDd: 5.2 cm IVSd: 0.99 cm LVOT diam: 2.0 cm LVIDs: 3.2 cm LVPWd: 0.95 cm LVOT area: 3.1 cm2 RVDd: 3.6 cm FS: 38.4 % Ao root diam: 3.2 cm LAV(MOD-bp): 95.7 ml LVAd ap4: 23.8 cm2 LAV(MOD-bp) Indexed: 52.5 ml/m2 LVLd ap4: 6.8 cm LAV(MOD-sp2): 87.4 ml EDV(MOD-sp4): 72.1 ml LAV(MOD-sp4): 96.9 ml EDV(sp4-el): 70.7 ml LVAs ap4: 13.1 cm2 LVLs ap4: 5.3 cm ESV(MOD-sp4): 28.1 ml ESV(sp4-el): 27.2 ml EF(MOD-sp4): 61.0 % EF(sp4-el): 61.5 % SV(MOD-sp4): 44.0 ml SV(sp4-el): 43.5 ml LA A4 area: 29.2 cm2 LA dimension(2D): 5.2 cm RA A4 area: 27.7 cm2 Doppler Measurements & Calculations MV E max kameron: 86.3 cm/sec Lat Peak E' Kameron: 10.4 cm/sec Med Peak E' Kameron: 6.0 cm/sec MV A max kameron: 22.6 cm/sec E/E' lat: 8.3 E/E' med: 14.4 MV E/A: 3.8 Ao V2 max: 182.0 cm/sec LV V1 max: 99.2 cm/sec PA V2 max: 87.4 cm/sec Ao max P.3 mmHg LV V1 max P.9 mmHg Ao V2 mean: 134.5 cm/sec Ao mean P.7 mmHg Ao V2 VTI: 48.1 cm ROSA(V,D): 1.7 cm2 TR max kameron: 370.8 cm/sec TR max P.0 mmHg ECHO/Echo Complete Interpretation Summary Left ventricular systolic function is normal. The estimated ejection fraction is 60 %. The left atrium is severely enlarged. The right atrium is severely enlarged. There is moderate mitral annular calcification. Extension of the mitral annular calcification onto the base of the posterior mi tral valve leaflet. Mild diffuse mitral valve thickening. Mild-Moderate (1-2+) mitral valve insufficiency. Moderate (2+) tricuspid valve insufficiency. Mild aortic stenosis. Trivial pulmonic valve insufficiency. Calcified aortic root. Right ventricular systolic pressure estimated to be 58 mmHg. Transmitral diastolic flow velocities suggest diastolic dysfunction (pseudonorm al pattern). Ordering Physician: Kash Babin Referring Physician: Agnieszka Fish Performed By: Evie Rene, GIOVANNA, RVT
== END ==
PROVIDERS: PCP Internal Medicine; Referring Provider Internal Medicine Cardiovascular Disease; Visit Provider Internal Medicine Cardiovascular Disease
DX: R06.09 Other forms of dyspnea (principal); I35.0 Nonrheumatic aortic (valve) stenosis; E78.00 Pure hypercholesterolemia, unspecified; I34.0 Nonrheumatic mitral (valve) insufficiency; I36.1 Nonrheumatic tricuspid (valve) insufficiency; I48.0 Paroxysmal atrial fibrillation; I11.0 Hypertensive heart disease with heart failure; I50.32 Chronic diastolic (congestive) heart failure
CPT/HCPCS: 93306

== ENCOUNTER 2021-01-16 13:18 | Outpatient (RCR) | payer MEDICARE, OTHER, SELFPAY ==
[2021-01-02 12:43] LABS: International Normalized Ratio 2.4
[2021-01-02 13:13] LABS: Thyroid Stim Hormone (TSH) 3.36 uIU/mL (0.358-3.74)
[2021-01-16 15:35] LABS: International Normalized Ratio 2.5; Prothrombin Time (Protime)PT. 26.2 SECONDS (11.7-14.9)
== END 2021-01-16 18:00 | disposition home or self-care (01) ==
LOC: LAB 13:18
PROVIDERS: Family Provider Internal Medicine; PCP Internal Medicine; Referring Provider Internal Medicine Cardiovascular Disease; Visit Provider Internal Medicine Cardiovascular Disease
DX: I48.0 Paroxysmal atrial fibrillation (principal); Z79.01 Long term (current) use of anticoagulants
CPT/HCPCS: 36415; 84443; 85610

== ENCOUNTER 2021-02-08 12:12 | Outpatient (RCR) | payer MEDICARE, OTHER, SELFPAY ==
[2021-02-08 12:47] LABS: International Normalized Ratio 3.1; Prothrombin Time (Protime)PT. 30.9 SECONDS (11.7-14.9)
== END 2021-02-08 18:00 | disposition home or self-care (01) ==
LOC: LAB 12:12
PROVIDERS: Family Provider Internal Medicine; PCP Internal Medicine; Referring Provider Internal Medicine Cardiovascular Disease; Visit Provider Internal Medicine Cardiovascular Disease
DX: I48.0 Paroxysmal atrial fibrillation (principal); Z79.01 Long term (current) use of anticoagulants
CPT/HCPCS: 36415; 85610

== ENCOUNTER 2021-03-11 13:03 | Outpatient (RCR) | payer MEDICARE, OTHER, SELFPAY ==
[2021-03-11 15:53] LABS: International Normalized Ratio 2.6; Prothrombin Time (Protime)PT. 26.9 SECONDS (11.7-14.9)
== END 2021-04-02 23:59 ==
LOC: BIMLAB 13:03
PROVIDERS: Family Provider Internal Medicine; PCP Internal Medicine; Referring Provider Internal Medicine Cardiovascular Disease; Visit Provider Internal Medicine Cardiovascular Disease
DX: I48.0 Paroxysmal atrial fibrillation (principal); Z79.01 Long term (current) use of anticoagulants
CPT/HCPCS: 36415; 85610

== ENCOUNTER → 2021-04-29 11:34 | Outpatient (CLI) | payer MEDICARE, OTHER, SELFPAY ==
[2021-04-29 12:49] LABS: AST(SGOT) 34 U/L (15-37); Alanine Aminotransfer ALT/SGPT 38 U/L (13-56); Albumin, Serum 3.3 g/dL (3.2-5.0); Alkaline Phosphatase 70 U/L (45-117); Bilirubin, Direct 0.18 mg/dL (0.00-0.30); Cholesterol 195 mg/dL (200); Globulin 4.4 g/dL (2.2-4.2); High Density Lipoprotein 83 mg/dL; Protein, Total 7.7 g/dL (6.4-8.2); Triglycerides 126 mg/dL; Very Low Density Lipoprotein 25 mg/dL (5-40)
== END ==
PROVIDERS: PCP Internal Medicine; Referring Provider Internal Medicine Cardiovascular Disease; Visit Provider Nurse Practitioner Family
DX: E78.00 Pure hypercholesterolemia, unspecified (principal)
CPT/HCPCS: 36415; 80061; 80076

== ENCOUNTER 2021-05-02 11:20 | Outpatient (RCR) | payer MEDICARE, OTHER, SELFPAY ==
[2021-04-03 00:18] VITALS: BMI 24.0
[2021-04-15 10:17] LABS: Prothrombin Time (Protime)PT. 22.2 SECONDS (11.7-14.9)
[2021-04-15 10:44] LABS: AST(SGOT) 37 U/L (15-37); Alanine Aminotransfer ALT/SGPT 41 U/L (13-56); Albumin, Serum 3.4 g/dL (3.2-5.0); Alkaline Phosphatase 68 U/L (45-117); Bilirubin, Direct 0.22 mg/dL (0.00-0.30); Cholesterol 199 mg/dL (200); Globulin 4.4 g/dL (2.2-4.2); High Density Lipoprotein 82 mg/dL; Protein, Total 7.8 g/dL (6.4-8.2); Triglycerides 94 mg/dL; Very Low Density Lipoprotein 19 mg/dL (5-40)
[2021-05-02 11:51] LABS: International Normalized Ratio 1.8; Prothrombin Time (Protime)PT. 20.5 SECONDS (11.7-14.9)
== END 2021-05-02 18:00 | disposition home or self-care (01) ==
LOC: LAB 11:20
PROVIDERS: Nurse Practitioner Family; Family Provider Internal Medicine; PCP Internal Medicine; Referring Provider Internal Medicine Cardiovascular Disease; Visit Provider Internal Medicine Cardiovascular Disease
DX: I48.0 Paroxysmal atrial fibrillation (principal); Z79.01 Long term (current) use of anticoagulants; E78.00 Pure hypercholesterolemia, unspecified
CPT/HCPCS: 36415; 80061; 80076; 85610

== ENCOUNTER 2021-05-24 11:41 | Outpatient (RCR) | payer MEDICARE, OTHER, SELFPAY ==
[2021-05-02 20:21] VITALS: BMI 24.0
[2021-05-09 12:08] LABS: International Normalized Ratio 2.1; Prothrombin Time (Protime)PT. 22.8 SECONDS (11.7-14.9)
[2021-05-24 12:24] LABS: International Normalized Ratio 2.6; Prothrombin Time (Protime)PT. 27.2 SECONDS (11.7-14.9)
== END 2021-06-02 03:35 | disposition home or self-care (01) ==
LOC: LAB 11:41
PROVIDERS: Family Provider Internal Medicine; PCP Internal Medicine; Referring Provider Internal Medicine Cardiovascular Disease; Visit Provider Internal Medicine Cardiovascular Disease
DX: I48.0 Paroxysmal atrial fibrillation (principal); Z79.01 Long term (current) use of anticoagulants
CPT/HCPCS: 36415; 85610

== ENCOUNTER 2021-06-19 12:24 | Outpatient (RCR) | payer MEDICARE, OTHER, SELFPAY ==
[2021-06-02 03:35] VITALS: BMI 24.0
[2021-06-19 14:08] LABS: International Normalized Ratio 3.1; Prothrombin Time (Protime)PT. 30.7 SECONDS (11.7-14.9)
== END 2021-07-02 18:00 | disposition home or self-care (01) ==
LOC: LAB 12:24
PROVIDERS: Family Provider Internal Medicine; PCP Internal Medicine; Referring Provider Internal Medicine Cardiovascular Disease; Visit Provider Internal Medicine Cardiovascular Disease
DX: I48.0 Paroxysmal atrial fibrillation (principal); Z79.01 Long term (current) use of anticoagulants
CPT/HCPCS: 36415; 85610

== ENCOUNTER 2021-07-03 12:07 | Outpatient (RCR) | payer MEDICARE, OTHER, SELFPAY ==
[2021-07-03 02:15] VITALS: BMI 24.0
[2021-07-03 13:04] LABS: Anion Gap 7 (5-15); BUN 18 mg/dL (7-18); BUN/Creat Ratio 15.9 RATIO (10-20); Calcium,Total 8.9 mg/dL (8.5-10.1); Chloride 103 mmol/L (98-107); Creatinine, Serum 1.13 mg/dL (0.55-1.02); EST Glomerular Filtration Rate 49 mL/min (>60); Est Glom Filt Rate - Afr Amer 59 mL/min (>60); Glucose 86 mg/dL (74-106); Potassium 4.4 mmol/L (3.5-5.1); Sodium Level 139 mmol/L (136-145)
[2021-07-03 13:09] LABS: Vitamin D,25 Hydroxy 44.8 ng/mL
== END 2021-08-03 18:00 | disposition home or self-care (01) ==
LOC: LAB 12:07
PROVIDERS: Family Provider Internal Medicine; PCP Internal Medicine; Referring Provider Internal Medicine Cardiovascular Disease; Visit Provider Internal Medicine Cardiovascular Disease
DX: I48.0 Paroxysmal atrial fibrillation (principal); Z79.01 Long term (current) use of anticoagulants; I10 Essential (primary) hypertension; M81.0 Age-related osteoporosis without current pathological fracture
CPT/HCPCS: 36415; 80048; 82306; 85610

== ENCOUNTER → 2021-07-15 09:09 | Outpatient (CLI) | payer MEDICARE, OTHER, SELFPAY | PROVIDERS: PCP Internal Medicine; Referring Provider Internal Medicine Cardiovascular Disease; Visit Provider Internal Medicine Cardiovascular Disease | DX: I48.0 Paroxysmal atrial fibrillation (principal); I48.92 Unspecified atrial flutter | CPT/HCPCS: 93225; 93226 ==

== ENCOUNTER 2021-08-05 12:41 | Outpatient (RCR) | payer MEDICARE, OTHER, SELFPAY ==
[2021-08-04 04:03] VITALS: BMI 24.0
[2021-08-05 13:42] LABS: Prothrombin Time (Protime)PT. 30.5 SECONDS (11.7-14.9)
== END 2021-09-02 18:00 | disposition home or self-care (01) ==
LOC: LAB 12:41
PROVIDERS: Family Provider Internal Medicine; PCP Internal Medicine; Referring Provider Internal Medicine Cardiovascular Disease; Visit Provider Internal Medicine Cardiovascular Disease
DX: I48.0 Paroxysmal atrial fibrillation (principal); Z79.01 Long term (current) use of anticoagulants
CPT/HCPCS: 36415; 85610

== ENCOUNTER 2021-08-28 13:46 | Emergency (ER) | payer MEDICARE, OTHER, SELFPAY ==
[2021-08-28 13:47] VITALS: BP 137/52; PULSE 63; RESP 16; TEMP 35.8; O2SAT 92; BMI 23.6
--- NOTE | 2021-08-28 14:08 | ED.VIS.LOWEX ---
HPI History of Present Illness Chief Complaint: Lower Extremity Injury Informant: patient Occured/Mechanism Mechanism/Context: Yes injury and Yes blunt trauma Onset/Context/Timing Onset: Today and Hours Context: Sudden Onset Timing: Continuous Quality of Pain: Sharp Current Severity: Mild Maximum Severity: Mild Associated Symptoms Associated Symptoms: Negative for Parasthesia, Weakness and Loss of Funtion Narrative Narrative: history of A. fib, hypertension, CHF on Coumadin.86-year-old female Tripped and fell over a curb injuring her left knee and right foot. Did not hit her head. No LOC. No chest, abdominal or back pain from the fall. [place] fine prior to the fall. She has had a prior left knee replacement. Prior similar symptoms: No Recent Illness/Hospitalization: No PFSH PFSH Medical History Anemia Anticoagulation goal of INR 2 to 3 Anxiety Arthritis Atrial fibrillation with normal ventricular rate Back problem Cataracts, bilateral Chronic headaches Cough Cystitis DDD (degenerative disc disease) Depression Dermatitis Diverticulosis Dyspnea on exertion Essential hypertension GERD (gastroesophageal reflux disease) Headache Hyperlipidemia Hypertension Hypothyroidism (acquired) Insomnia due to medical condition Joint pain Non-rheumatic mitral regurgitation Nonrheumatic aortic (valve) stenosis Nonrheumatic tricuspid valve regurgitation Osteopenia Osteoporosis 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 Paroxysmal atrial fibrillation Post-nasal drainage Pulmonary hypertension Pure hypercholesterolemia RBBB Seasonal allergies Snoring Urinary tract infection with hematuria UTI (urinary tract infection) Vision problems Home Medications Ca-D3-mag ml-kdcm-hmc-felicia-bor 1 tab PO DAILY 01/24/15 [History Last Taken 08/27/21] ascorbic acid (vitamin C) 500 mg PO DAILY@0800 01/24/15 [History Last Taken 08/27/21] aspirin 81 mg PO DAILY@0800 01/24/15 [History Last Taken 08/27/21] vitamin B comp and C no.3 1 ea PO DAILY 04/24/15 [History Last Taken 08/27/21] xijnwknyuqz-mfxnwxiab-uwg C-Mn 2 ea PO Q6H 10/14/17 [History Last Taken 08/27/21] multivitamin 1 ea PO DAILY 10/14/17 [History Last Taken 08/27/21] omega-3 fatty acids-fish oil 300 mg-1,000 mg capsule 1 cap PO BID 07/05/18 [History Last Taken 08/27/21] compress.stocking,knee,reg,lrg #2 ea 05/02/20 [Rx Last Taken Unknown] metoprolol succinate 25 mg tablet,extended release 24 hr 25 mg PO DAILY #90 tab 12/27/20 [Rx Last Taken 08/28/21] amiodarone 200 mg tablet 200 mg PO DAILY #90 tab 12/28/20 [Rx Last Taken 08/28/21] amlodipine 10 mg tablet 10 mg PO DAILY #90 tab 03/01/21 [Rx Last Taken 08/27/21] levothyroxine 100 mcg tablet 100 mcg PO DAILY #90 tab 06/28/21 [Rx Last Taken 08/28/21] atorvastatin 20 mg tablet 20 mg PO QHS #90 tab 07/01/21 [Rx Last Taken 08/27/21] losartan 50 mg tablet 50 mg PO DAILY #90 tab 07/09/21 [Rx Last Taken 08/28/21] alendronate 70 mg PO MO 08/28/21 [History Last Taken 08/26/21] furosemide 40 mg PO DAILY 08/28/21 [History Last Taken 08/28/21] furosemide [Lasix] 20 mg PO DAILY 08/28/21 [History Last Taken 08/27/21] potassium chloride 20 meq PO DAILY 08/28/21 [History Last Taken 08/27/21] potassium chloride 40 meq PO DAILY 08/28/21 [History Last Taken 08/28/21] warfarin 4.5 mg PO SUWE 08/28/21 [History Last Taken 08/25/21] warfarin 6 mg PO MOTUTHFRSA 08/28/21 [History Last Taken 08/27/21] Allergy/AdvReac Type Severity Reaction Status Date / Time bee venom protein (honey bee) Allergy Unknown UNKNOWN Verified 08/28/21 13:51 propoxyphene Allergy Unknown UNKNOWN Verified 08/28/21 13:51 [From Darvocet-N] codeine AdvReac Other Verified 08/28/21 13:51 Family History Mother Heart disease High cholesterol Osteoporosis CVA (cerebral vascular accident) Hypertension Father Hypertension Alcohol abuse Sister Asthma Hypertension Thyroid disorder Surgical History History of cardioversion History of cataract extraction History of total left knee replacement Status post surgical manipulation of ankle joint Status post total left knee replacement Social History Smoking Status: Never smoker alcohol intake: never substance use type: does not use what type of physical activity do you participate in: none ROS ROS ED ROS Narrative Denies recent illness. Review of Systems ROS Unobtainable: Denies due to encephalopathy Constitutional Constitutional ED: Denies fever(s) Eyes Eyes: Denies change in vision ENT ENT ED: Denies ear pain Cardiovascular Cardiovascular: Denies chest pain Respiratory/Chest Respiratory/Chest: Denies dyspnea Gastrointestinal Gastrointestinal: Denies abdominal pain, diarrhea, nausea or vomiting Genitourinary Genitourinary ED: Denies dysuria Musculoskeletal Musculoskeletal: Denies myalgias Integumentary Denies rash Neurologic Neurologic: Denies headache(s) Psychiatric Psychiatric: Denies depression Endocrine Endocrinology: Denies polyuria Hematologic/Lymphatic Hematologic/Lymphatic: Denies easy bruising Allergic/Immunologic Allergic/Immunologic ED: Denies urticaria EXAM Physical Exam Narrative Exam Narrative: 86-year-old female no acute distress. Vital signs stable afebrile. H EENT exam unremarkable atraumatic. Nontender. C-spine nontender. Trachea midline. Lungs clear to auscultation bilaterally. Heart regular rhythm rate about 60 with a systolic ejection murmur. Chest wall nontender. Ribs nontender. Back nontender. Abdomen soft nontender. Pelvic girdle intact. Tenderness to her left knee bruise on the lateral aspect of the left knee. Prior knee replacement midline incision which is well-healed. She is difficulty with flexion extension due to discomfort. There is no gross bony deformity. Proximal femur is nontender. The left lower leg ankle and foot is nontender neurovascular intact. Right hip and right knee are nontender. Ankle is mildly swollen which is chronic from a prior ankle surgery per the patient. She has mild tenderness along the lateral aspect of her right foot along the small toe or fifth metatarsal. Neurologically she is awake and alert with no focal motor deficits. Const Vital Signs: 08/28/21 13:47 Temperature 96.5 F L Temperature Source Temporal Pulse Rate 63 Respiratory Rate 16 Blood Pressure 137/52 H Blood Pressure Mean 80 Pulse Ox 92 Oxygen Delivery Method Room Air Positive well nourished and well developed; Negative for obese, cachectic, contractures or unkempt General Appearance ED: well developed and NAD; Negative for unkempt, cachectic or contractures Nutritional Appearance: Negative for cachectic or obese HEENT Reports moist mucous membranes normocephalic and atraumatic; Negative for trauma or tenderness Eyes PERRL Neck full ROM and supple Thyroid: Negative for tender Chest Wall inspection of chest normal and palpation of chest normal Chest: Negative for other Resp normal respiratory effort, no retractions and clear to auscultation bilaterally Auscultation: Negative for rales, rhonchi or wheezes Cardio regular rate, regular rhythm, S1 normal heart sound, S2 normal heart sound and no murmurs GI non-tender, non-distended and no masses Auscultation: normoactive bowel sounds Palpation: soft; Negative for tender, guarding or rebound tenderness present Back/Spine no CVA tenderness General Back: Negative for CVA tenderness Cervical Spine: Negative for cervical spine tenderness Thoracic Spine / Upper Back: Negative for thoracic spinal tenderness Lumbar Spine / Lower Back: Negative for lumbar spinal tenderness Extremity Extremity Narrative: Both upper extremities are nontender with normal range of motion. She has tenderness about her left knee has had a prior left knee replacement. She is decreased range of motion of left knee due to discomfort. She also has tenderness to the right lateral foot. No bony deformity. Neuro oriented x3 and moves all extremities Sensorium / Orientation: alert, oriented to person, oriented to place and oriented to time; Negative for orientation impaired, confused, lethargic or stuporous Motor Exam: strength 5/5 throughout Psych mental status grossly normal Appearance: Negative for unkempt Mood & Affect: Negative for anxious Skin no wounds Lesions: no lesions Rashes: no rashes Trauma: Negative for abrasion or laceration MDM MDM MDM Narrative Medical decision making narrative: 86-year-old female fell stepping off a curb. Complaining of left knee and right foot pain. X-rays of each are being obtained. She had no head injury. And otherwise exam is unremarkable. She does not currently want anything for pain. Multiple repeat exams patient is resting comfortably. She was treated with IV morphine 4 mg twice and Zofran x1. I have also spoken to her son. They realize orthopedics felt it was in her best interest to be transferred and I have already spoken [facility] about the transfer. I am awaiting acceptance. Lab Data Attestation: I reviewed the patient's lab results. Lab results narrative: CBC shows a white count of 5. Hemoglobin 13.8 hematocrit 42. Weight is 203. She is on Coumadin her INR is 2.5. Electrolytes unremarkable gap of 9 BUN 20 creatinine 1.2 glucose 128. Labs: Laboratory Results - last 24 hr 08/28/21 08/28/21 08/28/21 15:25 15:25 15:25 WBC 5.8 RBC 4.19 L Hgb 13.8 Hct 42.6 MCV 101.7 H MCH 32.9 H MCHC 32.4 RDW Std Deviation 57.9 H RDW Coeff of Payal 15.3 H Plt Count 203 MPV 8.6 PT 26.2 H INR 2.5 Sodium 139 Potassium 4.0 Chloride 103 Carbon Dioxide 27.0 Anion Gap 9 BUN 20 H Creatinine 1.23 H Estim Creat Clear Calc 33.73 Est GFR (MDRD) Af Amer 53 L Est GFR (MDRD) Non-Af 44 L BUN/Creatinine Ratio 16.3 Glucose 128 H Calcium 8.9 Radiography Diagnostic Testing: Clinical Impression(s) from Imaging Studies Foot X-Ray 08/28/21 14:20 IMPRESSION: Nondisplaced fracture at the base of the fifth metatarsal. Electronically Signed: Lang Dasilva MD at 15:10 EST , Knee X-Ray 08/28/21 14:20 IMPRESSION: Nondisplaced comminuted fracture of the distal femoral metaphysis. Small joint effusion. The patient is status post total knee replacement. Electronically Signed: Lang Dasilva MD at 15:10 EST , Left knee x-ray 4 views interpreted by myself shows a distal femur periprosthetic fracture. Right foot x-ray 3 views interpreted by myself shows a fracture of the proximal fifth or small metatarsal appears to be a pseudo-Hernandez fracture. I discussed the x-rays with the patient. Discharge Plan Triage Chief Complaint: Lower Extremity Injury ED Provider: Alan Reed Dx/Rx/DC Orders Clinical Impression: Fall, Fracture of distal end of femur, Anticoagulated, Foot fracture, right Prescriptions: No Action omega-3 fatty acids-fish oil [Fish Oil] 300-1,000 mg capsule 1 cap PO BID RF: 0 (DME) compress.stocking,knee,reg,lrg Misc See Rx Instructions .ROUTE .MEDSUPPLY Qty: 2 RF: 1 aspirin 81 MG tablet 81 mg PO DAILY@0800 RF: 0 ascorbic acid (vitamin C) 500 MG tablet 500 mg PO DAILY@0800 RF: 0 Ca-D3-mag ey-buky-lnp-felicia-bor 1 EACH tablet,chewable 1 tab PO DAILY RF: 0 vitamin B comp and C no.3 1 EACH capsule 1 ea PO DAILY RF: 0 multivitamin 1 EACH tablet 1 ea PO DAILY RF: 0 sezschkxwnr-biqzgepda-wlt C-Mn 1 EACH capsule 2 ea PO Q6H RF: 0 warfarin 3 mg tablet 4.5 mg PO SUWE RF: 0 furosemide 20 mg tablet 40 mg PO DAILY RF: 0 potassium chloride 20 mEq tablet extended release 20 meq PO DAILY RF: 0 alendronate 70 mg tablet 70 mg PO MO RF: 0 warfarin 3 mg tablet 6 mg PO MOTUTHFRSA RF: 0 furosemide [Lasix] 20 mg tablet 20 mg PO DAILY RF: 0 potassium chloride 20 mEq tablet extended release 40 meq PO DAILY RF: 0 metoprolol succinate 25 mg tablet extended release 24 hr 25 mg PO DAILY Qty: 90 RF: 4 amiodarone 200 mg tablet 200 mg PO DAILY Qty: 90 RF: 4 amlodipine 10 mg tablet 10 mg PO DAILY Qty: 90 RF: 3 levothyroxine 100 mcg tablet 100 mcg PO DAILY Qty: 90 RF: 1 atorvastatin 20 mg tablet 20 mg PO QHS Qty: 90 RF: 3 losartan 50 mg tablet 50 mg PO DAILY Qty: 90 RF: 3 Primary Care Provider: Agnieszka Fish Referrals: Agnieszka Fish MD [Primary Care Provider] - Disposition Disposition: Acute Care Hospital
--- NOTE | 2021-08-28 14:20 | RAD_ITS ---
STUDY: X-RAY - LEFT KNEE REASON FOR EXAM: Female, 86 years old. Fall TECHNIQUE: 2 view(s) of the knee. COMPARISON: None. FINDINGS: Nondisplaced comminuted oblique fracture of the distal metaphysis of the femur. The patient is status post total knee replacement. Small joint effusion. RAD/Knee 1 or 2 Views IMPRESSION: Nondisplaced comminuted fracture of the distal femoral metaphysis. Small joint effusion. The patient is status post total knee replacement. Electronically Signed: Lang Dasilva MD at 15:10 EST ,
--- NOTE | 2021-08-28 14:20 | RAD_ITS ---
STUDY: X-RAY - RIGHT FOOT CLINICAL: Female, 86 years old. History of fall. TECHNIQUE: 3 view(s) of the foot. COMPARISON: None. FINDINGS: There is an enthesophyte involving the posterior superior calcaneus at the site of insertion of the Achilles tendon. Calcaneal spur. Normal visualized subtalar, talonavicular, calcaneocuboid, tarsal and tarsometatarsal articulations. Nondisplaced transverse fracture at the base of the fifth metatarsal with overlying soft tissue swelling. There is degenerative arthrosis of the metatarsophalangeal joint of the hallux with a hallux valgus deformity. Normal tibial and fibular sesamoid bones. There is degenerative arthrosis of the interphalangeal joint of the great toe. Normal phalanges of the great toe. Normal second through fifth metatarsophalangeal joints. Normal interphalangeal joints and phalanges of the lesser toes. Soft tissue swelling. RAD/Foot min 3 Views IMPRESSION: Nondisplaced fracture at the base of the fifth metatarsal. Electronically Signed: Lang Dasilva MD at 15:10 EST ,
[2021-08-28] MEDS: Morphine 4 MG/ML Syringe IV ×2 (15:27→17:30)
[2021-08-28] MEDS: Ondansetron 4 MG/2 ML Vial IV (15:28)
--- NOTE | 2021-08-28 15:33 | NURSING ---
CALLED [facility]. LEFT MESSAGE ON DR GODINEZ'S MACHINE FOR JAYJAY, CADD TECHNICIAN, TO CALL BACK
[2021-08-28 15:42] LABS: Hematocrit 42.6 % (37-47); Hemoglobin 13.8 g/dL (12.0-15.0); Mean Corp Hgb Conc 32.4 g/dL (32-36); Mean Corpuscular Hgb 32.9 pg (27.0-32.0); Mean Corpuscular Volume 101.7 fL (81-99); Mean Platelet Vol. 8.6 fl (6.2-12.0); Platelet Count 203 K/mm3 (150-450); RBC Distribution Width CV 15.3 % (11.6-14.6); RBC Distribution Width SD 57.9 fl (35.1-43.9); Red Blood Count 4.19 M/mm3 (4.2-5.4); White Blood Count 5.8 K/mm3 (4.4-11.0)
[2021-08-28 15:50] LABS: International Normalized Ratio 2.5; Prothrombin Time (Protime)PT. 26.2 SECONDS (11.7-14.9)
[2021-08-28 15:51] LABS: Anion Gap 9 (5-15); BUN 20 mg/dL (7-18); BUN/Creat Ratio 16.3 RATIO (10-20); Calcium,Total 8.9 mg/dL (8.5-10.1); Chloride 103 mmol/L (98-107); Creatinine, Serum 1.23 mg/dL (0.55-1.02); EST Glomerular Filtration Rate 44 mL/min (>60); Est Glom Filt Rate - Afr Amer 53 mL/min (>60); Estimated Creatinine Clearance 33.73 ml/min; Glucose 128 mg/dL (74-106); Sodium Level 139 mmol/L (136-145)
--- NOTE | 2021-08-28 16:57 | NURSING ---
CALLED [facility] FOR TRANSFER
[2021-08-28 17:36] VITALS: BP 127/54; PULSE 67; RESP 18; O2SAT 96
--- NOTE | 2021-08-28 17:43 | NURSING ---
[facility] ER TO ER ACCEPTING DR VELEZ NURSE TO NURSE [phone]
--- NOTE | 2021-08-28 17:51 | NURSING ---
CALLED [facility], ETA 2 HRS
[2021-08-28 18:28] VITALS: BP 127/54; PULSE 67; RESP 18; TEMP 36.3; O2SAT 96
== END 2021-08-28 18:41 | disposition short-term general hospital (02) ==
PROVIDERS: Emergency Provider Emergency Medicine; PCP Internal Medicine; Visit Provider Emergency Medicine
DX: S72.354A Nondisplaced comminuted fracture of shaft of right femur, initial encounter for closed fracture (principal); I11.0 Hypertensive heart disease with heart failure; I50.9 Heart failure, unspecified; I27.20 Pulmonary hypertension, unspecified; I48.0 Paroxysmal atrial fibrillation; Y92.9 Unspecified place or not applicable; E78.5 Hyperlipidemia, unspecified; E78.00 Pure hypercholesterolemia, unspecified; W10.1XXA Fall (on)(from) sidewalk curb, initial encounter; Y93.9 Activity, unspecified; Z79.01 Long term (current) use of anticoagulants; F41.9 Anxiety disorder, unspecified; F32.A Depression, unspecified; Z87.440 Personal history of urinary (tract) infections; M19.90 Unspecified osteoarthritis, unspecified site; H26.9 Unspecified cataract; K21.9 Gastro-esophageal reflux disease without esophagitis; E03.9 Hypothyroidism, unspecified; I35.0 Nonrheumatic aortic (valve) stenosis; M81.0 Age-related osteoporosis without current pathological fracture; I34.0 Nonrheumatic mitral (valve) insufficiency; Z79.82 Long term (current) use of aspirin; Z79.899 Other long term (current) drug therapy; S92.901A Unspecified fracture of right foot, initial encounter for closed fracture
CPT/HCPCS: 73560; 73630; 80048; 85027; 85610; 96374; 96375; 96376; 99285; J2405

== ENCOUNTER 2021-09-03 14:10 | Inpatient (IN) | payer MEDICARE, OTHER, SELFPAY ==
[2021-09-03 14:20] VITALS: BP 118/61; PULSE 91; RESP 17; TEMP 37.2; O2SAT 91
--- NOTE | 2021-09-03 15:37 | NURSING ---
[facility] CALLED AND COVID VACCINATION STATUS VERIFIED. PFIZER 08/30/20, 09/20/20 AND BOOSTER 05/19/21.
[2021-09-03 17:30] LABS: International Normalized Ratio 1.2; Prothrombin Time (Protime)PT. 14.1 SECONDS (11.7-14.9)
[2021-09-03] MEDS: Potassium Chloride Oral Tablet 20 MEQ PO (17:53)
[2021-09-03] MEDS: Calcium Carb/Vitamin D 1 TABLET Tablet PO (17:53)
[2021-09-03] MEDS: Acetaminophen 325 MG Tablet 650 MG PO (18:22)
--- NOTE | 2021-09-03 19:54 | HP.PCM_ITS ---
HPI - General General Date of Admission: 09/03/21 HPI Narrative 08/28/2021 SAEID WALLS, is a 86 Female who presents to [facility] Emergency Department with lower extremity injury. Tripped, fell over curb, hurt left knee, right foot. Morphine, Zofran given. X-ray showed left distal femur periprosthetic fracture, right foot fifth metatarsal fracture. Transfer to [facility]. 08/29/2021 Admit to [facility]. Oxygen 2 liters per nasal cannula for hypoxia. CTA chest negative pulmonary embolism. Prepare for surgery, hold coumadin. 08/29/2021 Dr. Chacko performed retrograde IM nailing of left periprosthetic distal femur fracture. Vancomycin, Ancef given perioperative prophylaxis. Partial weight bearing left lower extremity. PT/OT for Custodial Facility. Non-operative management fo right fifth metatarsal fracture. 09/02/2021 Transfuse 1 unit PRBC for postoperative anemia. 09/03/2021 Admit to TCU with debility, here for rehabilitation, strengthening, prior to discharge home alone. [facility] Medical History Anemia Anticoagulation goal of INR 2 to 3 Anxiety Arthritis Atrial fibrillation with normal ventricular rate Back problem Cataracts, bilateral Chronic headaches Cough Cystitis DDD (degenerative disc disease) Depression Dermatitis Diverticulosis Dyspnea on exertion Essential hypertension GERD (gastroesophageal reflux disease) Headache Hyperlipidemia Hypertension Hypothyroidism (acquired) Insomnia due to medical condition Joint pain Non-rheumatic mitral regurgitation Nonrheumatic aortic (valve) stenosis Nonrheumatic tricuspid valve regurgitation Osteopenia Osteoporosis 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 Paroxysmal atrial fibrillation Post-nasal drainage Pulmonary hypertension Pure hypercholesterolemia RBBB Seasonal allergies Snoring Urinary tract infection with hematuria UTI (urinary tract infection) Vision problems Home Medications ascorbic acid (vitamin C) 500 mg PO DAILY@0800 01/24/15 [History Last Taken 08/27/21] aspirin 81 mg PO DAILY@0800 01/24/15 [History Last Taken 08/27/21] vitamin B comp and C no.3 1 ea PO DAILY 04/24/15 [History Last Taken 08/27/21] asjciwqetse-kddybsosu-nid C-Mn 2 ea PO TID 10/14/17 [History Last Taken 08/27/21] multivitamin 1 ea PO DAILY 10/14/17 [History Last Taken 08/27/21] compress.stocking,knee,reg,lrg #2 ea 05/02/20 [Rx Last Taken Unknown] furosemide 40 mg PO DAILY 08/28/21 [History Last Taken 08/28/21] furosemide [Lasix] 20 mg PO DAILY 08/28/21 [History Last Taken 08/27/21] potassium chloride 20 meq PO BID 08/28/21 [History Last Taken 08/27/21] warfarin 4.5 mg PO SUWE 08/28/21 [History Last Taken 09/02/21] warfarin 6 mg PO MOTUTHFRSA 08/28/21 [History Last Taken 08/27/21] acetaminophen [Tylenol] 650 mg PO Q4H PRN 09/03/21 [History Last Taken 09/03/21 09:03] amiodarone 100 mg PO DAILY 09/03/21 [History Last Taken 09/03/21 09:03] amlodipine 2.5 mg PO DAILY 09/03/21 [History Last Taken 09/03/21 09:03] atorvastatin 20 mg PO QHS 09/03/21 [History Last Taken 09/02/21 19:57] betamethasone valerate 1 applic TOPICAL TID PRN PRN 09/03/21 [History Last Taken Unknown] calcium carbonate-vitamin D3 [Calcium + D] 1 tab PO BID 09/03/21 [History Last Taken Unknown] docusate sodium 100 mg PO BID 09/03/21 [History Last Taken Unknown] estradiol [Estrace] 1 g VAGINAL QWEEK 09/03/21 [History Last Taken Unknown] levothyroxine 100 mcg PO DAILY 09/03/21 [History Last Taken 09/03/21 06:34] losartan 50 mg PO DAILY 09/03/21 [History Last Taken 09/03/21 0903] metoprolol succinate 12.5 mg PO DAILY 09/03/21 [History Last Taken 09/03/21 09:03] omeprazole 40 mg PO DAILY 09/03/21 [History Last Taken Unknown] oxycodone [OxyIR] 5 mg PO Q6H PRN 09/03/21 [History Last Taken Unknown] polyethylene glycol 3350 [Miralax] 17 g PO PRN PRN 09/03/21 [History Last Taken Unknown] Allergy/AdvReac Type Severity Reaction Status Date / Time bee venom protein (honey bee) Allergy Unknown UNKNOWN Verified 08/28/21 13:51 propoxyphene Allergy Unknown UNKNOWN Verified 08/28/21 13:51 [From Darvocet-N] codeine AdvReac Other Verified 08/28/21 13:51 Family History Mother Heart disease High cholesterol Osteoporosis CVA (cerebral vascular accident) Hypertension Father Hypertension Alcohol abuse Sister Asthma Hypertension Thyroid disorder Surgical History History of cardioversion History of cataract extraction History of total left knee replacement Status post surgical manipulation of ankle joint Status post total left knee replacement Social History (Updated 09/03/21 @ 19:[address] West Meyers MD) household members: none Smoking Status: Never smoker alcohol intake: never substance use type: does not use what type of physical activity do you participate in: none ROS Constitutional Constitutional: Denies chills, fever(s) or weight gain ENT HEENT: Denies headache(s), nasal congestion or nasal discharge Cardiovascular Cardiovascular: Denies chest pain or palpitations Respiratory/Chest Respiratory/Chest: Denies cough, excessive phlegm production or shortness of breath with exertion Gastrointestinal Gastrointestinal: Denies abdominal pain, nausea or vomiting Genitourinary Genitourinary: Denies dysuria Musculoskeletal Musculoskeletal: Denies joint pain or joint swelling Integumentary Integumentary: Denies rash or wounds Neurologic Neurologic: Denies focal weakness, numbness or tingling Psychiatric Psychiatric: Denies anxiety, auditory hallucinations, depression, homicidal ideation or suicidal ideation Vital Signs Vital Signs Vital Signs: 09/03/21 14:20 Temperature 98.9 F Temperature Source Temporal Pulse Rate 91 Pulse Rhythm Regular Pulse Strength Normal (2+) Respiratory Rate 17 Respiratory Effort Normal Non-Labored Respiratory Depth Normal Respiratory Pattern Normal Blood Pressure 118/61 Blood Pressure Mean 80 Blood Pressure Source Monitor Blood Pressure Position Sitting Blood Pressure Location Left Arm Pulse Ox 91 Oxygen Delivery Method Room Air Weight Weight: 74.57 kg Physical Exam Const alert and oriented x3 General Appearance: cooperative HEENT normocephalic Eyes PERRL and EOMs intact bilaterally Neck supple, no JVD and no carotid bruits Resp normal respiratory effort, normal air movement and clear to auscultation bilaterally Cardio regular rate and regular rhythm GI normal to inspection, nondistended, normoactive bowel sounds, non-tender and non-distended Extremity normal capillary refill General Extremity: Negative for edema Skin no rashes or lesions noted General Skin Exam: no breakdown Psych affect normal Appearance: appropriate Results Lab / Micro Data Labs: Laboratory Results - last 24 hr 09/03/21 16:06: PT 14.1, INR 1.2 Assessment & Plan Assessment/Plan (1) Debility: (2) Fracture of distal end of femur: (3) Foot fracture, right: (4) Paroxysmal atrial fibrillation: (5) Essential hypertension: (6) Chronic diastolic congestive heart failure: (7) Hypothyroidism: (8) Hyperlipidemia: (9) Osteoporosis: (10) Hypokalemia: PLAN: 86 year old female with below past medical history hospitalized for left distal femur periprosthetic fracture, right foot fifth metatarsal fracture, underwent retrograde IM nailing of left periprosthetic distal femur fracture 08/29/[address] Chacko, admitted to TCU with debility, here for rehabilitation, strengthening, prior to discharge home alone. * Debility - PT/OT. * Pain - Tylenol 1000mg q6h prn pain (1-5), Oxycodone 5mg q4h prn pain (6-10). * Bowel - Miralax 17gm daily, senna/colace 1 tablet bid, Dulcolax 10mg daily prn. * Adult immunization - Administer prevnar 13, pneumovax 23, fluzone, covid19 vaccine as appropriate. * DVT prophylaxis - Not necessary, on warfarin. * Atrial fibrillation - Metoprolol succinate 12.5mg daily, Amiodarone 100mg daily, Warfarin 6mg 5days/week, 4.5mG 2 days/week. * Hypertension - Metoprolol succinate 12.5mg daily, Losartan 50mg daily, Amlodipine 2.5mg daily. * Vitamin C deficiency - Vitamin C 500mg daily. * Coronary artery disease - Metoprolol succinate 12.5mg daily, Losartan 50mg d aily, Stop Aspirin 81mg daily, already on warfarin. * Hyperlipidemia - Atorvastatin 20mg qhs. * Rash - Betamethasone topical tid prn. * Calcium deficiency - Calcium D 1 tablet bid. * Chronic diastolic congestive heart failure - Metoprolol succinate 12.5mg daily, Losartan 50mg daily, Lasix 40mg am, 20mg pm. * Hypothyroidism - Levothyroxine 100mcg daily. * Nutrition - MVI daily. * GERD - Pantoprazole 40mg daily. * Hypokalemia - KCL 20meq bidcm. * Vitamin B deficiency - Vitamin B complex daily.
[2021-09-03] MEDS: Atorvastatin Calcium 20 MG Tablet PO (20:53)
[2021-09-04 05:32] LABS: Absolute Lymphocyte Count 0.48 X10^3/uL (0.83-4.51); Absolute Neutrophil Count 3.2 X10^3/uL (2.0-7.7); Basophil# 0.04 X10^3/uL; Basophil% 0.8 % (0-1); Eosinophil# 0.42 X10^3/uL; Eosinophils% 8.5 % (0-5); Hematocrit 26.4 % (37-47); Hemoglobin 8.7 g/dL (12.0-15.0); Lymphocyte # 0.48 X10^3/ul (0.83-4.51); Lymphocyte % 9.7 % (19-41); Mean Corpuscular Hgb 34.1 pg (27.0-32.0); Mean Corpuscular Volume 103.5 fL (81-99); Mean Platelet Vol. 8.9 fl (6.2-12.0); Monocyte# 0.78 X10^3/uL; Monocyte% 15.8 % (0-10); NRBC Flagged by Analyzer 0 % (0-5); Neutrophil # 3.16 X10^3/uL (2.7-7.7); POSITIVE DIFFERENTIAL YES; POSITIVE MORPHOLOGY YES; Platelet Count 187 K/mm3 (150-450); RBC Distribution Width CV 18.5 % (11.6-14.6); RBC Distribution Width SD 67.2 fl (35.1-43.9); Red Blood Count 2.55 M/mm3 (4.2-5.4); White Blood Count 4.9 K/mm3 (4.4-11.0)
[2021-09-04 05:38] LABS: Differential Indicated SCAN CRITERIA MET
[2021-09-04 05:44] VITALS: BP 117/67; PULSE 88
[2021-09-04] MEDS: Furosemide 40 MG Tablet PO (05:44)
[2021-09-04] MEDS: amLODIPine 2.5 MG Tablet PO (05:44)
[2021-09-04] MEDS: Losartan Potassium 50 MG Tablet PO (05:44)
[2021-09-04] MEDS: Metoprolol(XL)Succ 25 MG Tablet 12.5 MG PO (05:44)
[2021-09-04] MEDS: Levothyroxine 100 MCG Tablet PO (05:44)
[2021-09-04] MEDS: Pantoprazole Sodium 40 MG Tablet PO (05:44)
[2021-09-04 05:56] LABS: Anisocytosis 1+; Differential Comment SCANNED; Macrocytosis 1+
[2021-09-04 06:08] LABS: Anion Gap 4 (5-15); BUN 11 mg/dL (7-18); BUN/Creat Ratio 15.4 RATIO (10-20); Chloride 109 mmol/L (98-107); Creatinine, Serum 0.72 mg/dL (0.55-1.02); EST Glomerular Filtration Rate 82 mL/min (>60); Est Glom Filt Rate - Afr Amer 100 mL/min (>60); Estimated Creatinine Clearance 41.49 ml/min; Glucose 96 mg/dL (74-106); Potassium 4.1 mmol/L (3.5-5.1); Sodium Level 141 mmol/L (136-145)
[2021-09-04] MEDS: Amiodarone 200 MG Tablet 100 MG PO (08:01)
[2021-09-04] MEDS: Ascorbic Acid 500 MG Tablet PO (08:02)
[2021-09-04] MEDS: Potassium Chloride Oral Tablet 20 MEQ PO ×2 (08:02→16:43)
[2021-09-04] MEDS: Vitamin B Comp W-C Capsule 1 CAP PO (08:02)
[2021-09-04] MEDS: Multivitamins,Therapeutic Tablet 1 TABLET PO (08:02)
[2021-09-04] MEDS: Iron Polysaccharide Complex 150 MG CAPSULE PO (09:03)
[2021-09-04] MEDS: Tuberculin,Purif.prot.deriv. 50 TU/ML Vial 0.1 ML ID (10:07)
[2021-09-04] MEDS: Calcium Carb/Vitamin D 1 TABLET Tablet PO ×2 (11:24→16:43)
--- NOTE | 2021-09-04 11:42 | NURSING ---
Crackles in Rad lower lobes today that cleared with secretions. This nurse gave pt incentive spirometer and discussed importance of use to prevent complications to her respiratory system, pt verbalized understanding and demonstrated to this nurse proper technique on use. N.O. for polar care to left leg from pain control.
[2021-09-04 12:54] VITALS: BP 107/59; PULSE 79; RESP 16; TEMP 36.4; O2SAT 93
--- NOTE | 2021-09-04 13:34 | CASEMGMT ---
Social Work SW met w/pt in room, reviewed role of SW in TCU. Code status reviewed, pt confirms is a full code. MOLST form reviewed, communication to physician, form in chart. We spoke about pt's goals at discharge, pt does plan to return home, is open to home health care. SW did make pt aware she will have a plan of care meeting sometime in the next week, and that this will be communicated to pt when the meeting will be, pt states understanding. SW will continue to follow. HILARIO Nelson
[2021-09-04] MEDS: Furosemide 20 MG Tablet PO (13:56)
[2021-09-04] MEDS: Senna/Docusate Sodium 1 Tablet PO (16:44)
[2021-09-04] MEDS: Atorvastatin Calcium 20 MG Tablet PO (20:46)
[2021-09-05 05:23] VITALS: BP 122/62; PULSE 98
[2021-09-05 05:25] VITALS: PULSE 98
[2021-09-05] MEDS: Furosemide 40 MG Tablet PO (05:25)
[2021-09-05] MEDS: Losartan Potassium 50 MG Tablet PO (05:25)
[2021-09-05] MEDS: amLODIPine 2.5 MG Tablet PO (05:25)
[2021-09-05] MEDS: Metoprolol(XL)Succ 25 MG Tablet 12.5 MG PO (05:25)
[2021-09-05] MEDS: Senna/Docusate Sodium 1 Tablet PO (05:25)
[2021-09-05] MEDS: Levothyroxine 100 MCG Tablet PO (05:25)
[2021-09-05] MEDS: Pantoprazole Sodium 40 MG Tablet PO (05:25)
[2021-09-05 05:55] LABS: International Normalized Ratio 1.1; Prothrombin Time (Protime)PT. 13.8 SECONDS (11.7-14.9)
[2021-09-05] MEDS: Vitamin B Comp W-C Capsule 1 CAP PO (08:11)
[2021-09-05] MEDS: Multivitamins,Therapeutic Tablet 1 TABLET PO (08:11)
[2021-09-05] MEDS: Potassium Chloride Oral Tablet 20 MEQ PO ×2 (08:11→17:32)
[2021-09-05] MEDS: Amiodarone 200 MG Tablet 100 MG PO (08:11)
[2021-09-05] MEDS: Iron Polysaccharide Complex 150 MG CAPSULE PO (08:11)
[2021-09-05] MEDS: Ascorbic Acid 500 MG Tablet PO (08:11)
--- NOTE | 2021-09-05 08:49 | PCM.PN.RX ---
Progress Note - Pharmacy Subjective: [] TCU Admission Objective: Allergies bee venom protein (honey bee) Allergy (Unknown, Verified 08/28/21 13:51) UNKNOWN propoxyphene [From Darvocet-N] Allergy (Unknown, Verified 08/28/21 13:51) UNKNOWN codeine Adverse Reaction (Verified 08/28/21 13:51) Other Current Medications Generic Name Dose Route Start Last Admin Trade Name Freq PRN Reason Stop Dose Admin Acetaminophen 1,000 mg 09/03/21 20:16 Acetaminophen 500 Mg Tablet PO Q6H PRN PRN Pain Score 1-5 Amiodarone HCl 100 mg 09/04/21 08:00 09/05/21 08:11 Amiodarone 200 Mg Tablet PO 100 mg BREAKFAST LEDY Administration Amlodipine Besylate 2.5 mg 09/04/21 06:00 09/05/21 05:25 Amlodipine 2.5 Mg Tablet PO 2.5 mg DAILY LEDY Administration Ascorbic Acid 500 mg 09/04/21 08:00 09/05/21 08:11 Ascorbic Acid 500 Mg Tablet PO 500 mg BREAKFAST LEDY Administration Atorvastatin Calcium 20 mg 09/03/21 22:00 09/04/21 20:46 Atorvastatin Calcium 20 Mg Tablet PO 20 mg QHS LEDY Administration Betamethasone Valerate 1 applic 09/03/21 14:47 Betamethasone Valerate 0.1% Cream TOPICAL TID PRN PRN REDNESS Protocol Bisacodyl 10 mg 09/03/21 20:15 Bisacodyl 5 Mg Tablet PO X1 PRN Constipation Calcium/Vitamin D 1 tablet 09/03/21 17:00 09/04/21 16:43 Calcium Carb/Vitamin D 1 Tablet Tablet PO 1 tablet BIDLS LEDY Administration Furosemide 40 mg 09/04/21 06:00 09/05/21 05:25 Furosemide 40 Mg Tablet PO 40 mg DAILY LEDY Administration Furosemide 20 mg 09/04/21 14:00 09/04/21 13:56 Furosemide 20 Mg Tablet PO 20 mg DAILY@1400 LEDY Administration Levothyroxine Sodium 100 mcg 09/04/21 06:00 09/05/21 05:25 Levothyroxine 100 Mcg Tablet PO 100 mcg DAILY LEDY Administration Losartan Potassium 50 mg 09/04/21 06:00 09/05/21 05:25 Losartan Potassium 50 Mg Tablet PO 50 mg DAILY LEDY Administration Metoprolol Succinate 12.5 mg 09/04/21 06:00 09/05/21 05:25 Metoprolol(Xl)Succ 25 Mg Tablet PO 12.5 mg DAILY [facility] Administration Multivitamins 1 tablet 09/04/21 08:00 09/05/21 08:11 Multivitamins,Therapeutic Tablet PO 1 tablet BREAKFAST LEDY Administration Multivitamins 1 capsule 09/04/21 08:00 09/05/21 08:11 Vitamin B Comp W-C Capsule PO 1 capsule BREAKFAST [facility] Administration Oxycodone HCl 5 mg 09/03/21 20:16 Oxycodone 5 Mg Tablet PO Q4H PRN PRN Pain (Scale Score 6-10) Pantoprazole Sodium 40 mg 09/04/21 06:00 09/05/21 05:25 Pantoprazole Sodium 40 Mg Tablet PO 40 mg DAILY [facility] Administration Polyethylene Glycol 17 gm 09/04/21 06:00 09/05/21 05:25 Polyethylene Glycol 3350 17 Gm Packet PO Not Given DAILY [facility] Polysaccharide Iron Complex 150 mg 09/04/21 08:00 09/05/21 08:11 Iron Polysaccharide Complex 150 Mg Capsule PO 150 mg DAILYCM [facility] Administration Potassium Chloride 20 meq 09/03/21 17:00 09/05/21 08:11 Potassium Chloride Oral Tablet 20 Meq PO 20 meq BIDCM [facility] Administration Senna/Docusate Sodium 1 tablet 09/04/21 06:00 09/05/21 05:25 Senna/Docusate Sodium 1 Tablet PO 1 tablet BID LEDY Administration Tuberculin PPD 0.1 ml 09/11/21 10:00 Tuberculin,Purif.Prot.Deriv. 50 Tu/Ml Vial ID 09/11/21 10:01 X1 ONE Warfarin Sodium 6 mg 09/03/21 17:00 09/03/21 18:19 Warfarin 6 Mg Tablet PO 6 mg [id number] [facility] Administration Warfarin Sodium 2 mg/ Warfarin 4.5 mg 09/04/21 17:00 09/04/21 16:43 Sodium 2.5 mg PO 4.5 mg [id number]@1700 [facility] Administration Problem List (Last Reviewed 09/03/21 @ 19:[address] West Meyers MD) Hypokalemia (Acute) Osteoporosis (Acute) Hyperlipidemia (Acute) Hypothyroidism (Acute) Chronic diastolic congestive heart failure (Chronic) Debility (Acute) Paroxysmal atrial fibrillation (Chronic) Essential hypertension (Chronic) Vital Signs Temp Pulse Resp BP Pulse Ox 97.6 F L 98 16 122/62 H 93 09/04/21 12:54 09/05/21 05:25 09/04/21 12:54 09/05/21 05:23 09/04/21 12:54 Oxygen Delivery Method Room Air Weight: 74.57 kg Sodium 141 mmol/L (136-145) 09/04/21 05:12 Potassium 4.1 mmol/L (3.5-5.1) 09/04/21 05:12 Chloride 109 mmol/L (98-107) H 09/04/21 05:12 Carbon Dioxide 28.0 mmol/L (21.0-32.0) 09/04/21 05:12 Anion Gap 4 (5-15) L 09/04/21 05:12 BUN 11 mg/dL (7-18) 09/04/21 05:12 Creatinine 0.72 mg/dL (0.55-1.02) 09/04/21 05:12 Est GFR (MDRD) Af Amer 100 mL/min (>60) 09/04/21 05:12 Est GFR (MDRD) Non-Af 82 mL/min (>60) 09/04/21 05:12 BUN/Creatinine Ratio 15.4 RATIO (10-20) 09/04/21 05:12 Glucose 96 mg/dL (74-106) 09/04/21 05:12 Assessment/Plan: 1) Pain: Acetaminophen 1000mg po q6h prn for pain 1-5, Oxycodone 5mg po q4h prn for pain 6-10. Please continue to monitor prn usage and for signs/symptoms of increased pain. 2) GERD: Pantoprazole 40mg po daily. Please continue to monitor for signs/symptoms of GERD 3) Hypothyroidism: Levothyroxine 100mcg po daily. Pt's last TSH was 3.36 on 01-02-21. Please continue to monitor. 4) Hyperlipidemia: Atorvastatin 20mg po qhs. Pt's last Lipid Panel and LFTs (04-29-21) were within normal limits. Please continue to monitor. 5) Hypokalemia: Potassium Chloride 20meq po bid with food. Pt's last K+ was 4.1 on 09/04/21. Please continue to monitor. 6) Hypertension, CAD: Amlodipine 2.5mg po daily, Losartan 50mg po daily, Metoprolol Succinate 12.5mg po daily. Pt's K+ is 4.1, SrCr is 0.72, and BUN is 11. Please continue to monitor labs. Pt's average BP is 116/62.25. Please continue to monitor 7) Afb: Amiodarone 100mg with breakfast, Metoprolol Succinate 12.5mg po daily, Warfarin 6mg/4.5mg. Pt's average pulse is 90.8, pulse rhythm is regular, and pulse strength is normal. Please continue to monitor. Pt's last INR was 1.1 on 09/05/21. Please continue to monitor and adjust accordingly. 8) CHF: Metoprolol Succinate 12.5mg po daily, Losartan 50mg po daily, Furosemide 40mg po qam and 20mg po at 1400. Pt's Na is 141, K+ is 4.1, SrCr is 0.72, BUN is 11. Please continue to monitor labs. Psychotropic Medications: none Unnecessary Medications: none Bowel Regimen: Bisacodyl 10mg po daily x1 prn for constipation, Miralax 17gm po daily, Senna/Docusate 1 tablet po bid. Pt has refused 2 of 2 Miralax doses. Please continue to monitor pt refusals. If pt continues to refuse Miralax, please consider changing to prn use. Thanks Date of Note:: 09/05/21
[2021-09-05] MEDS: Calcium Carb/Vitamin D 1 TABLET Tablet PO ×2 (12:56→17:32)
[2021-09-05] MEDS: Furosemide 20 MG Tablet PO (12:56)
--- NOTE | 2021-09-05 13:43 | NURSING ---
Resident and daughter, Dexter, notified of a resident on the unit testing positive for COVID.
[2021-09-05 13:45] VITALS: BP 111/52; PULSE 98; RESP 12; TEMP 37.2; O2SAT 96
[2021-09-05] MEDS: Atorvastatin Calcium 20 MG Tablet PO (21:03)
[2021-09-06] MEDS: Pantoprazole Sodium 40 MG Tablet PO (05:59)
[2021-09-06] MEDS: amLODIPine 2.5 MG Tablet PO (05:59)
[2021-09-06] MEDS: Levothyroxine 100 MCG Tablet PO (05:59)
[2021-09-06 06:00] VITALS: BP 113/64; PULSE 90
[2021-09-06] MEDS: Furosemide 40 MG Tablet PO (06:00)
[2021-09-06] MEDS: Metoprolol(XL)Succ 25 MG Tablet 12.5 MG PO (06:00)
[2021-09-06] MEDS: Losartan Potassium 50 MG Tablet PO (06:00)
[2021-09-06 06:32] LABS: Hematocrit 29.7 % (37-47); Hemoglobin 9.4 g/dL (12.0-15.0)
[2021-09-06] MEDS: Potassium Chloride Oral Tablet 20 MEQ PO ×2 (08:11→17:30)
[2021-09-06] MEDS: Multivitamins,Therapeutic Tablet 1 TABLET PO (08:12)
[2021-09-06] MEDS: Iron Polysaccharide Complex 150 MG CAPSULE PO (08:12)
[2021-09-06] MEDS: Amiodarone 200 MG Tablet 100 MG PO (08:12)
[2021-09-06] MEDS: Ascorbic Acid 500 MG Tablet PO (08:12)
[2021-09-06] MEDS: Vitamin B Comp W-C Capsule 1 CAP PO (08:13)
[2021-09-06 08:18] VITALS: BP 108/50; PULSE 92
[2021-09-06 09:30] VITALS: PULSE 92; RESP 18; O2SAT 95
[2021-09-06] MEDS: Calcium Carb/Vitamin D 1 TABLET Tablet PO ×2 (11:51→17:30)
[2021-09-06] MEDS: Furosemide 20 MG Tablet PO (13:39)
[2021-09-06 14:24] VITALS: BP 105/62; PULSE 89; RESP 16; TEMP 36.3; O2SAT 96
--- NOTE | 2021-09-06 16:31 | CHAPLAIN ---
Type of Pastoral Visit _x__ Initial Visit ___ Follow-up Visit ___ On-call Visit ___ General Patient Visit ___ Spiritual Assessment ___ Family Conference ___ Bereavement ___ Rapid Response ___ Code Blue ___ Other (describe below) Pastoral Care Referral From _x__ Patient ___ Family ___ Nurse ___ Physician ___ Research And Development Specialist ___ Development Coordinator ___ Other (describe below) Sacrament/Intervention _x__ Active listening ___ Anointing ___ Islam ___ Bereavement ___ Communion ___ [place]queta exploration ___ _x__ Life review ___ Prayer ___ Reconciliation ___ Sacrament of Sick ___ Supportive presence ___ Wedding ___ Other (describe below) Pastoral Comments
[2021-09-06] MEDS: Senna/Docusate Sodium 1 Tablet PO (17:30)
[2021-09-06] MEDS: Atorvastatin Calcium 20 MG Tablet PO (20:26)
[2021-09-07] MEDS: Losartan Potassium 50 MG Tablet PO (05:11)
[2021-09-07] MEDS: amLODIPine 2.5 MG Tablet PO (05:11)
[2021-09-07] MEDS: Furosemide 40 MG Tablet PO (05:11)
[2021-09-07 05:12] VITALS: BP 119/60; PULSE 88
[2021-09-07] MEDS: Metoprolol(XL)Succ 25 MG Tablet 12.5 MG PO (05:12)
[2021-09-07] MEDS: Pantoprazole Sodium 40 MG Tablet PO (05:13)
[2021-09-07] MEDS: Levothyroxine 100 MCG Tablet PO (05:14)
[2021-09-07 05:18] VITALS: BP 119/60; PULSE 88; RESP 15; O2SAT 93
[2021-09-07 06:56] LABS: International Normalized Ratio 1.2
[2021-09-07] MEDS: Multivitamins,Therapeutic Tablet 1 TABLET PO (08:17)
[2021-09-07] MEDS: Vitamin B Comp W-C Capsule 1 CAP PO (08:18)
[2021-09-07] MEDS: Iron Polysaccharide Complex 150 MG CAPSULE PO (08:19)
[2021-09-07] MEDS: Potassium Chloride Oral Tablet 20 MEQ PO ×2 (08:19→17:13)
[2021-09-07] MEDS: Ascorbic Acid 500 MG Tablet PO (08:20)
[2021-09-07] MEDS: Amiodarone 200 MG Tablet 100 MG PO (08:22)
--- NOTE | 2021-09-07 09:58 | NURSING ---
REMOVED DRESSING TO PT LEFT KNEE AND UPPER THIGH PER ORDERS. AREA SWOLLEN AND BRUISED,STERI STRIPS ON INCISION AREAS. ADDED NEW STERI STRIPS TO AREAS THAT NEEDED REINFORCED. OPEN TO AIR. PT ASKED TO LEAVE WRAP OFF FOR NOW AND WOULD LET US KNOW IF SHE WANTED BACK ON. NO DRAINAGE AT THIS TIME. WILL CONTINUE TO MONITOR. RN AWARE.
[2021-09-07] MEDS: Calcium Carb/Vitamin D 1 TABLET Tablet PO ×2 (11:36→17:13)
[2021-09-07] MEDS: Furosemide 20 MG Tablet PO (13:11)
[2021-09-07 16:00] VITALS: BP 99/59; PULSE 85; RESP 17; TEMP 36.9; O2SAT 94
[2021-09-07] MEDS: Atorvastatin Calcium 20 MG Tablet PO (20:37)
[2021-09-08] MEDS: Levothyroxine 100 MCG Tablet PO (05:49)
[2021-09-08] MEDS: Polyethylene Glycol 3350 17 GM PACKET PO (05:50)
[2021-09-08] MEDS: Pantoprazole Sodium 40 MG Tablet PO (05:51)
[2021-09-08] MEDS: Furosemide 40 MG Tablet PO (05:51)
[2021-09-08] MEDS: amLODIPine 2.5 MG Tablet PO (05:51)
[2021-09-08] MEDS: Losartan Potassium 50 MG Tablet PO (05:51)
[2021-09-08 05:54] VITALS: BP 107/54; PULSE 85
--- NOTE | 2021-09-08 05:54 | NURSING ---
Toprol XL held at this time d/t BP of 107/54. Will continue to monitor.
[2021-09-08] MEDS: Ascorbic Acid 500 MG Tablet PO (08:11)
[2021-09-08 08:13] VITALS: BP 103/65; PULSE 90
[2021-09-08] MEDS: Metoprolol(XL)Succ 25 MG Tablet 12.5 MG PO (08:13)
[2021-09-08] MEDS: Vitamin B Comp W-C Capsule 1 CAP PO (08:15)
[2021-09-08] MEDS: Multivitamins,Therapeutic Tablet 1 TABLET PO (08:15)
[2021-09-08] MEDS: Potassium Chloride Oral Tablet 20 MEQ PO ×2 (08:16→16:30)
[2021-09-08] MEDS: Amiodarone 200 MG Tablet 100 MG PO (08:16)
[2021-09-08] MEDS: Iron Polysaccharide Complex 150 MG CAPSULE PO (08:16)
[2021-09-08 08:21] VITALS: BP 103/65; PULSE 90
[2021-09-08 09:30] VITALS: PULSE 85; RESP 18; O2SAT 93
[2021-09-08] MEDS: Calcium Carb/Vitamin D 1 TABLET Tablet PO ×2 (11:20→16:30)
[2021-09-08] MEDS: Furosemide 20 MG Tablet PO (13:53)
[2021-09-08 14:21] VITALS: BP 108/59; PULSE 80; RESP 152; TEMP 37.3; O2SAT 92
[2021-09-08] MEDS: Senna/Docusate Sodium 1 Tablet PO (16:30)
[2021-09-08] MEDS: Atorvastatin Calcium 20 MG Tablet PO (20:19)
[2021-09-09 04:34] VITALS: BP 121/65; PULSE 94
[2021-09-09] MEDS: Senna/Docusate Sodium 1 Tablet PO ×2 (04:34→17:47)
[2021-09-09] MEDS: Pantoprazole Sodium 40 MG Tablet PO (04:34)
[2021-09-09] MEDS: Metoprolol(XL)Succ 25 MG Tablet 12.5 MG PO (04:34)
[2021-09-09] MEDS: amLODIPine 2.5 MG Tablet PO (04:34)
[2021-09-09] MEDS: Losartan Potassium 50 MG Tablet PO (04:35)
[2021-09-09] MEDS: Furosemide 40 MG Tablet PO (04:35)
[2021-09-09] MEDS: Levothyroxine 100 MCG Tablet PO (04:35)
[2021-09-09 06:18] LABS: International Normalized Ratio 1.6
[2021-09-09] MEDS: Amiodarone 200 MG Tablet 100 MG PO (08:07)
[2021-09-09] MEDS: Potassium Chloride Oral Tablet 20 MEQ PO ×2 (08:07→17:46)
[2021-09-09] MEDS: Iron Polysaccharide Complex 150 MG CAPSULE PO (08:07)
[2021-09-09] MEDS: Vitamin B Comp W-C Capsule 1 CAP PO (08:07)
[2021-09-09] MEDS: Ascorbic Acid 500 MG Tablet PO (08:08)
[2021-09-09] MEDS: Multivitamins,Therapeutic Tablet 1 TABLET PO (08:08)
[2021-09-09] MEDS: Calcium Carb/Vitamin D 1 TABLET Tablet PO ×2 (11:16→17:46)
[2021-09-09] MEDS: Furosemide 20 MG Tablet PO (13:38)
[2021-09-09 15:01] VITALS: BP 106/53; PULSE 90; RESP 18; TEMP 36.1; O2SAT 96
[2021-09-09 20:28] VITALS: PULSE 85; RESP 16; O2SAT 97
[2021-09-09] MEDS: Atorvastatin Calcium 20 MG Tablet PO (20:28)
[2021-09-10] MEDS: Furosemide 40 MG Tablet PO (05:23)
[2021-09-10] MEDS: Pantoprazole Sodium 40 MG Tablet PO (05:23)
[2021-09-10] MEDS: Losartan Potassium 50 MG Tablet PO (05:23)
[2021-09-10] MEDS: Levothyroxine 100 MCG Tablet PO (05:23)
[2021-09-10] MEDS: amLODIPine 2.5 MG Tablet PO (05:23)
[2021-09-10 05:24] VITALS: BP 104/55; PULSE 85
[2021-09-10] MEDS: Metoprolol(XL)Succ 25 MG Tablet 12.5 MG PO (05:24)
--- NOTE | 2021-09-10 07:25 | MDS.RN ---
Preferences for customary routine and activities mds assessment completed.
[2021-09-10] MEDS: Multivitamins,Therapeutic Tablet 1 TABLET PO (08:24)
[2021-09-10] MEDS: Iron Polysaccharide Complex 150 MG CAPSULE PO (08:24)
[2021-09-10] MEDS: Potassium Chloride Oral Tablet 20 MEQ PO ×2 (08:24→17:41)
[2021-09-10] MEDS: Vitamin B Comp W-C Capsule 1 CAP PO (08:24)
[2021-09-10] MEDS: Ascorbic Acid 500 MG Tablet PO (08:25)
[2021-09-10] MEDS: Amiodarone 200 MG Tablet 100 MG PO (08:32)
[2021-09-10 08:34] VITALS: BP 103/56; PULSE 92
[2021-09-10 10:25] VITALS: PULSE 84; RESP 18; O2SAT 93
[2021-09-10] MEDS: Calcium Carb/Vitamin D 1 TABLET Tablet PO ×2 (11:07→17:41)
[2021-09-10] MEDS: Furosemide 20 MG Tablet PO (13:21)
[2021-09-10 13:28] VITALS: BP 96/50; PULSE 84; RESP 16; TEMP 36.2; O2SAT 93
--- NOTE | 2021-09-10 17:27 | CASEMGMT ---
Social Work BIMS and PHQ-9 completed for MDS assessment. Tiana Cool, SUPERINTENDENT DIVISION BUDGET AND POLICY ANALYST
[2021-09-10] MEDS: Atorvastatin Calcium 20 MG Tablet PO (20:33)
[2021-09-11] MEDS: Menthol/Lanolin/Calamine/Znox 113 GM Tube 1 APPLIC TOPICAL ×3 (04:55→17:14)
[2021-09-11] MEDS: amLODIPine 2.5 MG Tablet PO (04:55)
[2021-09-11] MEDS: Losartan Potassium 50 MG Tablet PO (04:55)
[2021-09-11] MEDS: Levothyroxine 100 MCG Tablet PO (04:56)
[2021-09-11] MEDS: Pantoprazole Sodium 40 MG Tablet PO (04:56)
[2021-09-11] MEDS: Furosemide 40 MG Tablet PO (04:58)
[2021-09-11 05:03] VITALS: BP 110/57; PULSE 91
[2021-09-11] MEDS: Metoprolol(XL)Succ 25 MG Tablet 12.5 MG PO (05:03)
[2021-09-11 05:54] LABS: Absolute Lymphocyte Count 0.84 X10^3/uL (0.83-4.51); Absolute Neutrophil Count 3.9 X10^3/uL (2.0-7.7); Basophil# 0.07 X10^3/uL; Basophil% 1.2 % (0-1); Eosinophil# 0.51 X10^3/uL; Eosinophils% 8.4 % (0-5); Hematocrit 31.6 % (37-47); Hemoglobin 10.1 g/dL (12.0-15.0); Lymphocyte # 0.84 X10^3/ul (0.83-4.51); Lymphocyte % 13.8 % (19-41); Mean Corpuscular Hgb 33.4 pg (27.0-32.0); Mean Corpuscular Volume 104.6 fL (81-99); Mean Platelet Vol. 8.3 fl (6.2-12.0); Monocyte# 0.73 X10^3/uL; NRBC Flagged by Analyzer 0 % (0-5); Neutrophil # 3.87 X10^3/uL (2.7-7.7); Neutrophil % 63.6 % (47-70); POSITIVE MORPHOLOGY YES; Platelet Count 316 K/mm3 (150-450); RBC Distribution Width CV 19.1 % (11.6-14.6); RBC Distribution Width SD 74.5 fl (35.1-43.9); Red Blood Count 3.02 M/mm3 (4.2-5.4); White Blood Count 6.1 K/mm3 (4.4-11.0)
[2021-09-11 06:09] LABS: Differential Indicated SCAN CRITERIA MET
[2021-09-11 06:22] LABS: Anisocytosis 2+
[2021-09-11 06:35] LABS: Anion Gap 7 (5-15); BUN 23 mg/dL (7-18); BUN/Creat Ratio 23.1 RATIO (10-20); Calcium,Total 8.2 mg/dL (8.5-10.1); Chloride 100 mmol/L (98-107); EST Glomerular Filtration Rate 56 mL/min (>60); Est Glom Filt Rate - Afr Amer 68 mL/min (>60); Estimated Creatinine Clearance 41.49 ml/min; Glucose 94 mg/dL (74-106); Potassium 3.7 mmol/L (3.5-5.1); Sodium Level 136 mmol/L (136-145)
[2021-09-11 06:44] LABS: International Normalized Ratio 1.8
[2021-09-11] MEDS: Amiodarone 200 MG Tablet 100 MG PO (07:58)
[2021-09-11] MEDS: Multivitamins,Therapeutic Tablet 1 TABLET PO (07:58)
[2021-09-11] MEDS: Potassium Chloride Oral Tablet 20 MEQ PO ×2 (07:59→17:13)
[2021-09-11] MEDS: Ascorbic Acid 500 MG Tablet PO (07:59)
[2021-09-11] MEDS: Vitamin B Comp W-C Capsule 1 CAP PO (07:59)
[2021-09-11] MEDS: Iron Polysaccharide Complex 150 MG CAPSULE PO (07:59)
--- NOTE | 2021-09-11 09:24 | CASEMGMT ---
Social Work IDT met with patient for care plan meeting. Discussed patient's progress in PT/OT and nursing. Pt progressing well. Explained Medicare benefit. Encouraged to contact secondary insurance to ensure copay coverage. The goal is for pt to return home alone with 0 steps. Discussed DC date and plans. Pt agreeable to DC home 09/20 and requesting [facility] and [facility] PT/OT. Pt does not have transportation for outpatient until cleared to drive. Provided [facility] list of agencies with Medicare and quality ratings. Pt agreeable to [facility]. Referral made for PT/OT. Referral made to [facility] for FWW. Friend to transport home. Plan: DC home alone 09/20, [facility] PT/OT, FWW TIFFANY Keane
[2021-09-11] MEDS: Calcium Carb/Vitamin D 1 TABLET Tablet PO ×2 (11:17→17:13)
[2021-09-11] MEDS: Tuberculin,Purif.prot.deriv. 50 TU/ML Vial 0.1 ML ID (11:17)
--- NOTE | 2021-09-11 11:56 | MDS.RN ---
Information for the mds was obtained from review of the clinical record, interview of resident, staff, and direct observation of resident's care. Information Systems, billing dept, and [facility] aware no PDPM codes generated with finalized mds assessment.
[2021-09-11 13:25] VITALS: BP 110/58; PULSE 84; RESP 16; TEMP 36.5; O2SAT 92
[2021-09-11] MEDS: Furosemide 20 MG Tablet PO (13:27)
--- NOTE | 2021-09-11 19:31 | DS.PCM_ITS ---
Providers Date of Admission: 09/03/21 Primary Care Physician: Dr. Agnieszka Fish MD Reason For Visit: LEFT FEMUR FRACTURE Diagnosis Discharge Diagnosis (1) Debility: Status: Acute Code(s): R53.81 - Other malaise (2) Fracture of distal end of femur: Status: Inactive Code(s): S72.409A - Unspecified fracture of lower end of unspecified femur, initial encounter for closed fracture (3) Foot fracture, right: Status: Inactive Code(s): S92.901A - Unspecified fracture of right foot, initial encounter for closed fracture (4) Paroxysmal atrial fibrillation: Status: Chronic Code(s): I48.0 - Paroxysmal atrial fibrillation (5) Essential hypertension: Status: Chronic Code(s): I10 - Essential (primary) hypertension (6) Chronic diastolic congestive heart failure: Status: Chronic Code(s): I50.32 - Chronic diastolic (congestive) heart failure (7) Hypothyroidism: Status: Acute Code(s): E03.9 - Hypothyroidism, unspecified (8) Hyperlipidemia: Status: Acute Code(s): E78.5 - Hyperlipidemia, unspecified (9) Osteoporosis: Status: Acute Code(s): M81.0 - Age-related osteoporosis without current pathological fracture (10) Hypokalemia: Status: Acute Code(s): E87.6 - Hypokalemia Medications at Discharge Home Medications ascorbic acid (vitamin C) 500 mg PO DAILY@0800 01/24/15 aspirin 81 mg PO DAILY@0800 01/24/15 vitamin B comp and C no.3 1 ea PO DAILY 04/24/15 multivitamin 1 ea PO DAILY 10/14/17 compress.stocking,knee,reg,lrg #2 ea 05/02/20 furosemide 40 mg PO DAILY 08/28/21 furosemide [Lasix] 20 mg PO DAILY 08/28/21 potassium chloride 20 meq PO BID 08/28/21 amiodarone 100 mg PO DAILY 09/03/21 amlodipine 2.5 mg PO DAILY 09/03/21 atorvastatin 20 mg PO QHS 09/03/21 betamethasone valerate 1 applic TOPICAL TID PRN PRN 09/03/21 calcium carbonate-vitamin D3 1 tab PO BID 09/03/21 levothyroxine 100 mcg PO DAILY 09/03/21 losartan 50 mg PO DAILY 09/03/21 metoprolol succinate 12.5 mg PO DAILY 09/03/21 omeprazole 40 mg PO DAILY 09/03/21 acetaminophen 1,000 mg PO Q6H PRN PRN #0 tab 09/11/21 polysaccharide iron complex [Ferrex 150] 150 mg PO DAILYCM 30 Days #30 cap 09/11/21 warfarin [Jantoven] 6 mg PO 1700 30 Days #30 tab 09/11/21 Hospital Course Operations - (retrograde IM nailing of left periprosthetic distal femur fracture) Procedures None Summary of Care Provided Minutes Spent on Discharge: 35 Hospital Course: 86 year old female with below past medical history hospitalized for left distal femur periprosthetic fracture, right foot fifth metatarsal fracture, underwent retrograde IM nailing of left periprosthetic distal femur fracture 08/29/[address] Chacko, admitted to TCU with debility, here for rehabilitation, strengthening, prior to discharge home alone. Discharge home alone 09/20/2021, [facility] PT/OT, Front Wheeled Walker. Physical Exam Const alert and oriented x3 General Appearance: cooperative HEENT normocephalic Eyes PERRL and EOMs intact bilaterally Neck supple, no JVD and no carotid bruits Resp normal respiratory effort, normal air movement and clear to auscultation bilaterally Cardio regular rate and regular rhythm GI normal to inspection, nondistended, normoactive bowel sounds, non-tender and non-distended Extremity normal capillary refill General Extremity: Negative for edema Skin no rashes or lesions noted General Skin Exam: no breakdown Psych affect normal Appearance: appropriate Weight / BMI Weight Weight: 69.127 kg ABG / Lab / Microbiology Data Result Diagrams: 09/11/21 05:14 09/11/21 05:14 Laboratory: Laboratory Results - last 24 hr 09/11/21 05:14: WBC 6.1, RBC 3.02 L, Hgb 10.1 L, Hct 31.6 L, MCV 104.6 H, MCH 33.4 H, MCHC 32.0, RDW Std Deviation 74.5 H, RDW Coeff of Payal 19.1 H, Plt Count 316, MPV 8.3, Immature Gran % (Auto) 1.000 H, Neut % (Auto) 63.6, Lymph % (Auto) 13.8 L, Lares % (Auto) 12.0 H, Eos % (Auto) 8.4 H, Baso % (Auto) 1.2 H, Absolute Neuts (auto) 3.9, Absolute Lymphs (auto) 0.84, Nucleated RBC % 0, Anisocytosis 2+ 09/11/21 05:14: Sodium 136, Potassium 3.7, Chloride 100, Carbon Dioxide 29.0, Anion Gap 7, BUN 23 H, Creatinine 1.00, Estim Creat Clear Calc 41.49, Est GFR (MDRD) Af Amer 68, Est GFR (MDRD) Non-Af 56 L, BUN/Creatinine Ratio 23.1 H, G lucose 94, Calcium 8.2 L 09/11/21 05:14: PT 20.0 H, INR 1.8 Microbiology: Microbiology 09/05/21 11:52 Nasal Secretion SARS-CoV-2 Antigen (Rapid) - Final D/C Instructions Discharge Diet: No restrictions Discharge Activity: Return to Normal Activity, May Shower and Use Walker Weight Bearing Status: Partial weight bearing (Left lower extremity.) Call your doctor if you observe: Fever of 101 or Higher, Inability to urinate, Inability to have a bowel movement, Shortness of breath, Dizziness, Fainting spells, Swelling in the ankles, Chest pain and Uncontrolled pain Additional Instructions: Discharge home alone 09/20/2021, [facility] PT/OT, Front Wheeled Walker. Please Follow Up With: MD Marisa When: As scheduled. Meaningful Use Info Meaningful Use Diagnoses (Choose all that apply): None applicable Discharge Plan Admission Admit Date/Time: 09/03/21 14:10 Primary Reason for Your Visit: Debility. Attending Provider: West Meyers Chi Primary Care Provider: Agnieszka Fish Instructions Additional Instructions / Restrictions: Discharge home alone 09/20/2021, [facility] PT/OT, Front Wheeled Walker. Discharge Orders/Prescriptions Prescriptions: New polysaccharide iron complex [Ferrex 150] 150 mg iron Capsule 150 mg PO DAILYCM 30 Days Qty: 30 RF: 0 acetaminophen 500 mg Tablet 1,000 mg PO Q6H PRN PRN (Reason: Pain Score 1-5) Qty: 0 RF: 0 warfarin [Jantoven] 6 mg Tablet 6 mg PO 1700 30 Days Qty: 30 RF: 0 Continued aspirin 81 MG tablet 81 mg PO DAILY@0800 RF: 0 ascorbic acid (vitamin C) 500 MG tablet 500 mg PO DAILY@0800 RF: 0 vitamin B comp and C no.3 1 EACH capsule 1 ea PO DAILY RF: 0 multivitamin 1 EACH tablet 1 ea PO DAILY RF: 0 furosemide 20 mg tablet 40 mg PO DAILY RF: 0 potassium chloride 20 mEq tablet extended release 20 meq PO BID RF: 0 furosemide [Lasix] 20 mg tablet 20 mg PO DAILY RF: 0 calcium carbonate-vitamin D3 600 mg-5 mcg (200 unit) Tablet 1 tab PO BID RF: 0 omeprazole 40 mg Capsule,Delayed Release(Dr/Ec) 40 mg PO DAILY RF: 0 betamethasone valerate 0.1 % Cream 1 applic TOPICAL TID PRN PRN (Reason: REDNESS) RF: 0 losartan 50 mg tablet 50 mg PO DAILY RF: 0 atorvastatin 20 mg tablet 20 mg PO QHS RF: 0 amiodarone 200 mg tablet 100 mg PO DAILY RF: 0 levothyroxine 100 mcg tablet 100 mcg PO DAILY RF: 0 amlodipine 10 mg tablet 2.5 mg PO DAILY RF: 0 metoprolol succinate 25 mg tablet extended release 24 hr 12.5 mg PO DAILY RF: 0 Discontinued uleeysohili-ynkksvdfq-ipj C-Mn 1 EACH capsule 2 ea PO TID RF: 0 warfarin 3 mg tablet 4.5 mg PO SUWE RF: 0 warfarin 3 mg tablet 6 mg PO MOTUTHFRSA RF: 0 docusate sodium 100 mg Capsule 100 mg PO BID RF: 0 acetaminophen [Tylenol] 325 mg Tablet 650 mg PO Q4H PRN (Reason: Pain) RF: 0 polyethylene glycol 3350 [Miralax] 17 gram Powder In Packet 17 g PO PRN PRN (Reason: Constipation) RF: 0 oxycodone [OxyIR] 5 mg Capsule 5 mg PO Q6H PRN (Reason: Pain (Scale Score 6-10)) RF: 0 estradiol [Estrace] 0.01 % (0.1 mg/gram) Cream 1 g VAGINAL QWEEK RF: 0 No Action (DME) compress.stocking,knee,reg,lrg Misc See Rx Instructions .ROUTE .MEDSUPPLY Qty: 2 RF: 1 Referrals / Follow Up: Agnieszka Fish MD [Primary Care Provider] - Disposition Disposition (needs filled in before D/C Order can be placed): Home Health Service
[2021-09-11 19:50] VITALS: PULSE 79; RESP 16; O2SAT 94
[2021-09-11] MEDS: Atorvastatin Calcium 20 MG Tablet PO (21:21)
[2021-09-12 06:00] VITALS: BP 106/55; PULSE 86
[2021-09-12] MEDS: Pantoprazole Sodium 40 MG Tablet PO (06:00)
[2021-09-12] MEDS: Furosemide 40 MG Tablet PO (06:00)
[2021-09-12] MEDS: Levothyroxine 100 MCG Tablet PO (06:00)
[2021-09-12] MEDS: Losartan Potassium 50 MG Tablet PO (06:00)
[2021-09-12] MEDS: amLODIPine 2.5 MG Tablet PO (06:00)
[2021-09-12] MEDS: Metoprolol(XL)Succ 25 MG Tablet 12.5 MG PO (06:00)
[2021-09-12] MEDS: Menthol/Lanolin/Calamine/Znox 113 GM Tube 1 APPLIC TOPICAL ×2 (06:02→17:13)
[2021-09-12] MEDS: Multivitamins,Therapeutic Tablet 1 TABLET PO (08:29)
[2021-09-12] MEDS: Ascorbic Acid 500 MG Tablet PO (08:29)
[2021-09-12] MEDS: Iron Polysaccharide Complex 150 MG CAPSULE PO (08:30)
[2021-09-12] MEDS: Vitamin B Comp W-C Capsule 1 CAP PO (08:30)
[2021-09-12] MEDS: Potassium Chloride Oral Tablet 20 MEQ PO ×2 (08:30→17:14)
[2021-09-12] MEDS: Amiodarone 200 MG Tablet 100 MG PO (08:33)
[2021-09-12 08:36] VITALS: BP 106/50; PULSE 91
[2021-09-12 08:40] VITALS: PULSE 90; RESP 18; O2SAT 96
--- NOTE | 2021-09-12 09:30 | NURSING ---
PT LEFT AT 0920 AM [address] JAGUAR FOR DR. YOUSSEF.
--- NOTE | 2021-09-12 10:57 | NURSING ---
PT RETURNED AT 10:45 FROM APPOINTMENT WITH . PT AND TRANSPORT SAID NNO AT THIS TIME AND WANTED PT TO FOLLOW UP IN 3 WEEKS. RN AND LICENSED INSURANCE AGENT AWARE.
[2021-09-12] MEDS: Calcium Carb/Vitamin D 1 TABLET Tablet PO ×2 (11:05→17:14)
[2021-09-12] MEDS: Furosemide 20 MG Tablet PO (13:12)
[2021-09-12 13:35] VITALS: BP 107/50; PULSE 85; RESP 14; TEMP 36.7; O2SAT 94
[2021-09-12] MEDS: Atorvastatin Calcium 20 MG Tablet PO (21:26)
[2021-09-13 06:11] LABS: Prothrombin Time (Protime)PT. 22.1 SECONDS (11.7-14.9)
[2021-09-13 06:50] VITALS: BP 106/59; PULSE 81
[2021-09-13] MEDS: Losartan Potassium 50 MG Tablet PO (06:50)
[2021-09-13] MEDS: Levothyroxine 100 MCG Tablet PO (06:50)
[2021-09-13] MEDS: Metoprolol(XL)Succ 25 MG Tablet 12.5 MG PO (06:50)
[2021-09-13] MEDS: amLODIPine 2.5 MG Tablet PO (06:50)
[2021-09-13] MEDS: Pantoprazole Sodium 40 MG Tablet PO (06:50)
[2021-09-13] MEDS: Menthol/Lanolin/Calamine/Znox 113 GM Tube 1 APPLIC TOPICAL ×2 (06:51→17:33)
[2021-09-13] MEDS: Furosemide 40 MG Tablet PO (06:52)
[2021-09-13] MEDS: Amiodarone 200 MG Tablet 100 MG PO (08:34)
[2021-09-13] MEDS: Potassium Chloride Oral Tablet 20 MEQ PO ×2 (08:34→17:32)
[2021-09-13] MEDS: Iron Polysaccharide Complex 150 MG CAPSULE PO (08:34)
[2021-09-13] MEDS: Multivitamins,Therapeutic Tablet 1 TABLET PO (08:34)
[2021-09-13] MEDS: Ascorbic Acid 500 MG Tablet PO (08:34)
[2021-09-13] MEDS: Vitamin B Comp W-C Capsule 1 CAP PO (08:34)
[2021-09-13] MEDS: Calcium Carb/Vitamin D 1 TABLET Tablet PO ×2 (11:36→17:31)
[2021-09-13] MEDS: Furosemide 20 MG Tablet PO (13:45)
[2021-09-13 15:41] VITALS: BP 105/54; PULSE 83; RESP 16; TEMP 36.9; O2SAT 89
--- NOTE | 2021-09-13 16:23 | NURSING ---
patient's checkbook box locked in med box per pt request.
[2021-09-13] MEDS: Senna/Docusate Sodium 1 Tablet PO (17:31)
[2021-09-13] MEDS: Atorvastatin Calcium 20 MG Tablet PO (20:55)
[2021-09-13 20:56] VITALS: RESP 16
[2021-09-14 06:43] VITALS: BP 110/61; PULSE 86; RESP 16; O2SAT 92
[2021-09-14 06:45] VITALS: BP 110/61; PULSE 86
[2021-09-14] MEDS: Losartan Potassium 50 MG Tablet PO (06:45)
[2021-09-14] MEDS: Metoprolol(XL)Succ 25 MG Tablet 12.5 MG PO (06:45)
[2021-09-14] MEDS: Senna/Docusate Sodium 1 Tablet PO (06:46)
[2021-09-14] MEDS: Levothyroxine 100 MCG Tablet PO (06:46)
[2021-09-14] MEDS: amLODIPine 2.5 MG Tablet PO (06:46)
[2021-09-14] MEDS: Pantoprazole Sodium 40 MG Tablet PO (06:46)
[2021-09-14] MEDS: Furosemide 40 MG Tablet PO (06:47)
[2021-09-14] MEDS: Menthol/Lanolin/Calamine/Znox 113 GM Tube 1 APPLIC TOPICAL ×2 (06:51→16:55)
[2021-09-14] MEDS: Vitamin B Comp W-C Capsule 1 CAP PO (08:11)
[2021-09-14] MEDS: Iron Polysaccharide Complex 150 MG CAPSULE PO (08:11)
[2021-09-14] MEDS: Amiodarone 200 MG Tablet 100 MG PO (08:11)
[2021-09-14] MEDS: Potassium Chloride Oral Tablet 20 MEQ PO ×2 (08:12→16:53)
[2021-09-14] MEDS: Ascorbic Acid 500 MG Tablet PO (08:12)
[2021-09-14] MEDS: Multivitamins,Therapeutic Tablet 1 TABLET PO (08:12)
[2021-09-14] MEDS: Calcium Carb/Vitamin D 1 TABLET Tablet PO ×2 (11:28→16:54)
[2021-09-14 13:40] VITALS: BP 95/52; PULSE 81; RESP 18; TEMP 36.6; O2SAT 94
[2021-09-14] MEDS: Furosemide 20 MG Tablet PO (14:58)
[2021-09-14 15:00] VITALS: BP 100/95
[2021-09-14] MEDS: Atorvastatin Calcium 20 MG Tablet PO (20:24)
[2021-09-15] MEDS: Furosemide 40 MG Tablet PO (05:22)
[2021-09-15] MEDS: Losartan Potassium 50 MG Tablet PO (05:22)
[2021-09-15] MEDS: Levothyroxine 100 MCG Tablet PO (05:22)
[2021-09-15] MEDS: amLODIPine 2.5 MG Tablet PO (05:22)
[2021-09-15 05:23] VITALS: PULSE 82
[2021-09-15] MEDS: Metoprolol(XL)Succ 25 MG Tablet 12.5 MG PO (05:23)
[2021-09-15] MEDS: Pantoprazole Sodium 40 MG Tablet PO (05:23)
[2021-09-15] MEDS: Menthol/Lanolin/Calamine/Znox 113 GM Tube 1 APPLIC TOPICAL ×2 (05:25→16:59)
[2021-09-15] MEDS: Vitamin B Comp W-C Capsule 1 CAP PO (07:30)
[2021-09-15] MEDS: Iron Polysaccharide Complex 150 MG CAPSULE PO (07:31)
[2021-09-15] MEDS: Amiodarone 200 MG Tablet 100 MG PO (07:31)
[2021-09-15] MEDS: Ascorbic Acid 500 MG Tablet PO (07:32)
[2021-09-15] MEDS: Potassium Chloride Oral Tablet 20 MEQ PO ×2 (07:32→16:53)
[2021-09-15] MEDS: Multivitamins,Therapeutic Tablet 1 TABLET PO (07:32)
[2021-09-15 08:25] LABS: International Normalized Ratio 2.2
[2021-09-15 13:05] VITALS: BP 95/42; PULSE 82; RESP 18; TEMP 36.3; O2SAT 94
[2021-09-15] MEDS: Calcium Carb/Vitamin D 1 TABLET Tablet PO ×2 (13:08→16:53)
[2021-09-15 16:21] VITALS: BP 107/62
[2021-09-15] MEDS: Atorvastatin Calcium 20 MG Tablet PO (21:20)
[2021-09-16 05:46] VITALS: BP 113/63; PULSE 81
[2021-09-16] MEDS: Losartan Potassium 50 MG Tablet PO (05:46)
[2021-09-16] MEDS: Levothyroxine 100 MCG Tablet PO (05:46)
[2021-09-16] MEDS: amLODIPine 2.5 MG Tablet PO (05:46)
[2021-09-16] MEDS: Metoprolol(XL)Succ 25 MG Tablet 12.5 MG PO (05:46)
[2021-09-16] MEDS: Furosemide 40 MG Tablet PO (05:46)
[2021-09-16] MEDS: Pantoprazole Sodium 40 MG Tablet PO (05:46)
[2021-09-16] MEDS: Menthol/Lanolin/Calamine/Znox 113 GM Tube 1 APPLIC TOPICAL ×2 (05:48→17:45)
[2021-09-16] MEDS: Potassium Chloride Oral Tablet 20 MEQ PO ×2 (08:26→17:44)
[2021-09-16] MEDS: Vitamin B Comp W-C Capsule 1 CAP PO (08:26)
[2021-09-16] MEDS: Multivitamins,Therapeutic Tablet 1 TABLET PO (08:27)
[2021-09-16] MEDS: Iron Polysaccharide Complex 150 MG CAPSULE PO (08:27)
[2021-09-16] MEDS: Amiodarone 200 MG Tablet 100 MG PO (08:28)
[2021-09-16] MEDS: Ascorbic Acid 500 MG Tablet PO (08:28)
[2021-09-16 08:33] VITALS: BP 96/57; PULSE 88
[2021-09-16] MEDS: Calcium Carb/Vitamin D 1 TABLET Tablet PO ×2 (11:09→17:45)
[2021-09-16] MEDS: Furosemide 20 MG Tablet PO (13:45)
[2021-09-16 13:49] VITALS: BP 106/49; PULSE 85; RESP 18; TEMP 36.2
[2021-09-16 13:50] VITALS: PULSE 84; RESP 18; O2SAT 95
[2021-09-16] MEDS: Atorvastatin Calcium 20 MG Tablet PO (21:22)
[2021-09-16] MEDS: Acetaminophen 500 MG Tablet 1000 MG PO (23:30)
[2021-09-17] MEDS: Pantoprazole Sodium 40 MG Tablet PO (05:14)
[2021-09-17] MEDS: amLODIPine 2.5 MG Tablet PO (05:14)
[2021-09-17] MEDS: Levothyroxine 100 MCG Tablet PO (05:14)
[2021-09-17] MEDS: Losartan Potassium 50 MG Tablet PO (05:14)
[2021-09-17] MEDS: Menthol/Lanolin/Calamine/Znox 113 GM Tube 1 APPLIC TOPICAL ×2 (05:17→17:01)
[2021-09-17 05:19] VITALS: BP 110/60; PULSE 87
[2021-09-17] MEDS: Metoprolol(XL)Succ 25 MG Tablet 12.5 MG PO (05:19)
[2021-09-17] MEDS: Furosemide 40 MG Tablet PO (05:20)
[2021-09-17 05:56] LABS: International Normalized Ratio 2.7; Prothrombin Time (Protime)PT. 28.2 SECONDS (11.7-14.9)
[2021-09-17] MEDS: Iron Polysaccharide Complex 150 MG CAPSULE PO (07:55)
[2021-09-17] MEDS: Potassium Chloride Oral Tablet 20 MEQ PO ×2 (07:55→16:59)
[2021-09-17] MEDS: Multivitamins,Therapeutic Tablet 1 TABLET PO (07:55)
[2021-09-17] MEDS: Vitamin B Comp W-C Capsule 1 CAP PO (07:56)
[2021-09-17] MEDS: Amiodarone 200 MG Tablet 100 MG PO (07:56)
[2021-09-17] MEDS: Ascorbic Acid 500 MG Tablet PO (07:57)
[2021-09-17] MEDS: Calcium Carb/Vitamin D 1 TABLET Tablet PO ×2 (11:51→17:00)
[2021-09-17] MEDS: Furosemide 20 MG Tablet PO (13:04)
[2021-09-17 13:13] VITALS: BP 108/54; PULSE 83; RESP 18; TEMP 36.1; O2SAT 95
[2021-09-17] MEDS: Atorvastatin Calcium 20 MG Tablet PO (19:50)
[2021-09-18 05:46] LABS: Absolute Lymphocyte Count 0.52 X10^3/uL (0.83-4.51); Absolute Neutrophil Count 3.2 X10^3/uL (2.0-7.7); Basophil# 0.04 X10^3/uL; Basophil% 0.8 % (0-1); Eosinophil# 0.38 X10^3/uL; Eosinophils% 7.7 % (0-5); Hematocrit 29.9 % (37-47); Hemoglobin 9.9 g/dL (12.0-15.0); Lymphocyte # 0.52 X10^3/ul (0.83-4.51); Lymphocyte % 10.5 % (19-41); Mean Corp Hgb Conc 33.1 g/dL (32-36); Mean Corpuscular Hgb 33.8 pg (27.0-32.0); Mean Platelet Vol. 8.3 fl (6.2-12.0); Monocyte# 0.75 X10^3/uL; Monocyte% 15.2 % (0-10); NRBC Flagged by Analyzer 0 % (0-5); Neutrophil # 3.23 X10^3/uL (2.7-7.7); Neutrophil % 65.2 % (47-70); POSITIVE DIFFERENTIAL YES; POSITIVE MORPHOLOGY YES; Platelet Count 297 K/mm3 (150-450); RBC Distribution Width CV 17.9 % (11.6-14.6); RBC Distribution Width SD 68.2 fl (35.1-43.9); Red Blood Count 2.93 M/mm3 (4.2-5.4)
[2021-09-18 05:48] LABS: Differential Indicated SCAN CRITERIA MET
[2021-09-18 06:08] LABS: Anion Gap 6 (5-15); BUN 16 mg/dL (7-18); BUN/Creat Ratio 17.2 RATIO (10-20); Calcium,Total 7.8 mg/dL (8.5-10.1); Chloride 103 mmol/L (98-107); Creatinine, Serum 0.93 mg/dL (0.55-1.02); EST Glomerular Filtration Rate 61 mL/min (>60); Est Glom Filt Rate - Afr Amer 74 mL/min (>60); Estimated Creatinine Clearance 44.61 ml/min; Glucose 85 mg/dL (74-106); Potassium 3.7 mmol/L (3.5-5.1); Sodium Level 136 mmol/L (136-145)
[2021-09-18 06:09] LABS: Anisocytosis 1+; Macrocytosis 1+
[2021-09-18 06:10] LABS: Differential Comment SCANNED
[2021-09-18 06:15] VITALS: BP 120/64; PULSE 82
[2021-09-18] MEDS: Losartan Potassium 50 MG Tablet PO (06:15)
[2021-09-18] MEDS: amLODIPine 2.5 MG Tablet PO (06:15)
[2021-09-18] MEDS: Metoprolol(XL)Succ 25 MG Tablet 12.5 MG PO (06:15)
[2021-09-18] MEDS: Levothyroxine 100 MCG Tablet PO (06:15)
[2021-09-18] MEDS: Pantoprazole Sodium 40 MG Tablet PO (06:15)
[2021-09-18] MEDS: Furosemide 40 MG Tablet PO (06:15)
[2021-09-18] MEDS: Menthol/Lanolin/Calamine/Znox 113 GM Tube 1 APPLIC TOPICAL ×2 (06:23→16:36)
[2021-09-18] MEDS: Amiodarone 200 MG Tablet 100 MG PO (07:31)
[2021-09-18] MEDS: Ascorbic Acid 500 MG Tablet PO (07:32)
[2021-09-18] MEDS: Multivitamins,Therapeutic Tablet 1 TABLET PO (07:32)
[2021-09-18] MEDS: Vitamin B Comp W-C Capsule 1 CAP PO (07:32)
[2021-09-18] MEDS: Potassium Chloride Oral Tablet 20 MEQ PO ×2 (07:32→16:34)
[2021-09-18] MEDS: Iron Polysaccharide Complex 150 MG CAPSULE PO (07:32)
[2021-09-18] MEDS: Calcium Carb/Vitamin D 1 TABLET Tablet PO ×2 (10:31→16:35)
--- NOTE | 2021-09-18 12:13 | CASEMGMT ---
Social Work BIMS(15) and PHQ-9(1) completed this date. SW also did let pt know that a walker tray would not be covered by insurance, she would need to get that on her own and pay for it out of pocket. Pt states understanding. Pt also received a call from Darleen at [facility], she wanted to make sure that this was a legitimate call before returning it. SW checked w/SW on TCU, a referral was made to [facility] and Darleen is the personal care aide, SW let pt know. HILARIO Nelson
[2021-09-18] MEDS: Furosemide 20 MG Tablet PO (14:20)
[2021-09-18 14:59] VITALS: BP 105/54; PULSE 73; RESP 16; TEMP 36.6; O2SAT 93
[2021-09-18] MEDS: Atorvastatin Calcium 20 MG Tablet PO (20:32)
[2021-09-19 05:06] VITALS: PULSE 78
[2021-09-19] MEDS: Pantoprazole Sodium 40 MG Tablet PO (05:06)
[2021-09-19] MEDS: Metoprolol(XL)Succ 25 MG Tablet 12.5 MG PO (05:06)
[2021-09-19] MEDS: Levothyroxine 100 MCG Tablet PO (05:07)
[2021-09-19] MEDS: amLODIPine 2.5 MG Tablet PO (05:07)
[2021-09-19] MEDS: Losartan Potassium 50 MG Tablet PO (05:07)
[2021-09-19] MEDS: Menthol/Lanolin/Calamine/Znox 113 GM Tube 1 APPLIC TOPICAL (05:07)
[2021-09-19] MEDS: Furosemide 40 MG Tablet PO (05:07)
[2021-09-19] MEDS: Amiodarone 200 MG Tablet 100 MG PO (08:31)
[2021-09-19] MEDS: Vitamin B Comp W-C Capsule 1 CAP PO (08:31)
[2021-09-19] MEDS: Iron Polysaccharide Complex 150 MG CAPSULE PO (08:33)
[2021-09-19] MEDS: Potassium Chloride Oral Tablet 20 MEQ PO ×2 (08:33→17:52)
[2021-09-19] MEDS: Multivitamins,Therapeutic Tablet 1 TABLET PO (08:34)
[2021-09-19] MEDS: Ascorbic Acid 500 MG Tablet PO (08:34)
[2021-09-19 08:40] VITALS: BP 99/53; PULSE 84
[2021-09-19] MEDS: Calcium Carb/Vitamin D 1 TABLET Tablet PO ×2 (11:31→17:53)
[2021-09-19 13:24] VITALS: BP 110/49; PULSE 67; RESP 18; TEMP 36.1; O2SAT 96
[2021-09-19] MEDS: Furosemide 20 MG Tablet PO (13:31)
--- NOTE | 2021-09-19 14:49 | MDS.RN ---
Pain interview for RENEA 09/20/21 completed.
[2021-09-19] MEDS: Atorvastatin Calcium 20 MG Tablet PO (21:28)
[2021-09-20 06:13] VITALS: PULSE 84
[2021-09-20] MEDS: Metoprolol(XL)Succ 25 MG Tablet 12.5 MG PO (06:13)
[2021-09-20] MEDS: Levothyroxine 100 MCG Tablet PO (06:13)
[2021-09-20] MEDS: Losartan Potassium 50 MG Tablet PO (06:14)
[2021-09-20] MEDS: Pantoprazole Sodium 40 MG Tablet PO (06:14)
[2021-09-20] MEDS: amLODIPine 2.5 MG Tablet PO (06:14)
[2021-09-20] MEDS: Furosemide 40 MG Tablet PO (06:14)
[2021-09-20 06:20] VITALS: BP 102/55; PULSE 83; RESP 18; TEMP 36.6; O2SAT 98
[2021-09-20] MEDS: Ascorbic Acid 500 MG Tablet PO (08:03)
[2021-09-20] MEDS: Multivitamins,Therapeutic Tablet 1 TABLET PO (08:03)
[2021-09-20] MEDS: Potassium Chloride Oral Tablet 20 MEQ PO (08:03)
[2021-09-20] MEDS: Iron Polysaccharide Complex 150 MG CAPSULE PO (08:04)
[2021-09-20] MEDS: Vitamin B Comp W-C Capsule 1 CAP PO (08:04)
[2021-09-20] MEDS: Amiodarone 200 MG Tablet 100 MG PO (08:10)
[2021-09-20 08:18] VITALS: BP 99/56; PULSE 103
--- NOTE | 2021-09-20 08:18 | NURSING ---
CHECK AND CHECKBOOK THAT WAS IN MED BOX GIVEN BACK TO PT.
[2021-09-20 11:18] VITALS: BP 118/67; PULSE 91; RESP 18; TEMP 36.3; O2SAT 97
[2021-09-20] MEDS: Calcium Carb/Vitamin D 1 TABLET Tablet PO (11:32)
== END 2021-09-20 12:08 | disposition home health service (06) | DRG 560 ==
PROVIDERS: Admitting Provider Family Medicine Geriatric Medicine; PCP Internal Medicine; Visit Provider Family Medicine Geriatric Medicine
DX: S72.402D Unspecified fracture of lower end of left femur, subsequent encounter for closed fracture with routine healing (principal); I50.32 Chronic diastolic (congestive) heart failure; I11.0 Hypertensive heart disease with heart failure; I48.0 Paroxysmal atrial fibrillation; E03.9 Hypothyroidism, unspecified; E78.5 Hyperlipidemia, unspecified; E87.6 Hypokalemia; W10.1XXD Fall (on)(from) sidewalk curb, subsequent encounter; M19.90 Unspecified osteoarthritis, unspecified site; K21.9 Gastro-esophageal reflux disease without esophagitis; S92.351D Displaced fracture of fifth metatarsal bone, right foot, subsequent encounter for fracture with routine healing; M97.12XD Periprosthetic fracture around internal prosthetic left knee joint, subsequent encounter; Z79.899 Other long term (current) drug therapy; Z79.82 Long term (current) use of aspirin; Z79.01 Long term (current) use of anticoagulants; Z79.890 Hormone replacement therapy
CPT/HCPCS: 36415; 80048; 85014; 85018; 85025; 85610; 87426; 97110; 97116; 97162; 97166; 97530; 97535; 97802

== ENCOUNTER 2021-09-26 08:49 | Outpatient (CLI) | payer MEDICARE, OTHER, SELFPAY ==
[2021-09-26 11:11] LABS: INR Fingerstick 4.6; Prothrombin Time Fingerstick 50.6 SEC (11.9-14.4)
[2021-09-26 11:36] LABS: International Normalized Ratio 3.7; Prothrombin Time (Protime)PT. 35.6 SECONDS (11.7-14.9)
== END 2021-09-26 23:59 | disposition home or self-care (01) ==
LOC: LAB 08:51
PROVIDERS: PCP Internal Medicine; Referring Provider Internal Medicine Cardiovascular Disease; Visit Provider Internal Medicine Cardiovascular Disease
DX: I48.0 Paroxysmal atrial fibrillation (principal); S72.90XA Unspecified fracture of unspecified femur, initial encounter for closed fracture; Z79.01 Long term (current) use of anticoagulants
CPT/HCPCS: 36416; 85610

== ENCOUNTER 2021-10-08 12:01 | Outpatient (RCR) | payer MEDICARE, OTHER, SELFPAY ==
[2021-09-02 22:51] VITALS: BMI 24.0
[2021-10-08 12:22] LABS: Mucous, Urine 0 SEEN /hpf (<or=2+); Red Blood Cells-Urine 0 SEEN /hpf (0-5); Squamous Epithelial Cells - UA 0 SEEN /hpf (5-10)
[2021-10-08 15:33] LABS: International Normalized Ratio 3.3; Prothrombin Time (Protime)PT. 32.8 SECONDS (11.7-14.9)
[2021-10-08 15:40] LABS: Color, Urine Yellow (Yellow); Glucose, Dipstick Normal (Normal); Ketone-Dipstick 5 mg/dl (Negative); Leukocyte Esterase-Dipstick 500 /ul (Negative); Nitrite-Dipstick Negative (Negative); Occult Blood-Urine 25 /ul (Negative); Protein-Dipstick 30 mg/dl (Negative); Urine Bilirubin Dipstick Negative (Negative); Urine Clarity Cloudy (Clear); Urine Urobilinogen 1 mg/dl (Normal)
[2021-10-08 16:08] LABS: Bacteria 4+ /hpf (None Seen); White Blood Cells >100 SEEN /hpf (0-5)
== END 2021-10-31 23:59 | disposition home or self-care (01) ==
LOC: BIMLAB 12:01
PROVIDERS: Family Provider Internal Medicine; PCP Internal Medicine; Referring Provider Internal Medicine Cardiovascular Disease; Visit Provider Internal Medicine Cardiovascular Disease
DX: I48.0 Paroxysmal atrial fibrillation (principal); S72.90XA Unspecified fracture of unspecified femur, initial encounter for closed fracture; Z79.01 Long term (current) use of anticoagulants; X58.XXXA Exposure to other specified factors, initial encounter; R82.90 Unspecified abnormal findings in urine
CPT/HCPCS: 36415; 81001; 85610; 87086; 87088; 87186

== ENCOUNTER 2021-10-28 09:31 | Outpatient (CLI) | payer MEDICARE, OTHER, SELFPAY ==
[2021-10-28 11:35] LABS: International Normalized Ratio 3.3; Prothrombin Time (Protime)PT. 32.5 SECONDS (11.7-14.9)
[2021-10-28 12:30] LABS: AST(SGOT) 31 U/L (15-37); Alanine Aminotransfer ALT/SGPT 30 U/L (13-56); Albumin, Serum 3.6 g/dL (3.2-5.0); Alkaline Phosphatase 92 U/L (45-117); Bilirubin, Direct 0.18 mg/dL (0.00-0.30); Cholesterol 182 mg/dL (200); Globulin 3.9 g/dL (2.2-4.2); High Density Lipoprotein 79 mg/dL; Protein, Total 7.5 g/dL (6.4-8.2); Triglycerides 106 mg/dL; Very Low Density Lipoprotein 21 mg/dL (5-40)
== END 2021-10-28 23:59 | disposition home or self-care (01) ==
LOC: LAB 09:33
PROVIDERS: PCP Internal Medicine; Referring Provider Internal Medicine Cardiovascular Disease; Visit Provider Internal Medicine Cardiovascular Disease
DX: S72.90XA Unspecified fracture of unspecified femur, initial encounter for closed fracture (principal); I48.0 Paroxysmal atrial fibrillation; E78.00 Pure hypercholesterolemia, unspecified; Z79.01 Long term (current) use of anticoagulants
CPT/HCPCS: 36415; 80061; 80076; 85610

== ENCOUNTER 2021-11-18 09:28 | Outpatient (CLI) | payer MEDICARE, OTHER, SELFPAY ==
[2021-11-18 12:16] LABS: Prothrombin Time (Protime)PT. 22.2 SECONDS (11.7-14.9)
== END 2021-11-18 23:59 | disposition home or self-care (01) ==
LOC: LAB 09:30
PROVIDERS: PCP Internal Medicine; Visit Provider Internal Medicine Cardiovascular Disease
DX: I48.0 Paroxysmal atrial fibrillation (principal); S72.90XA Unspecified fracture of unspecified femur, initial encounter for closed fracture; Z79.01 Long term (current) use of anticoagulants
CPT/HCPCS: 36415; 85610

== ENCOUNTER → 2021-11-25 | Outpatient (CLI) | payer MEDICARE, OTHER, SELFPAY ==
[2021-11-25 13:08] LABS: International Normalized Ratio 2.3; Prothrombin Time (Protime)PT. 24.8 SECONDS (11.7-14.9)
== END | disposition home or self-care (01) ==
LOC: LAB 12:26
PROVIDERS: PCP Internal Medicine; Visit Provider Internal Medicine Cardiovascular Disease
DX: S72.90XA Unspecified fracture of unspecified femur, initial encounter for closed fracture (principal); I48.0 Paroxysmal atrial fibrillation; Z79.01 Long term (current) use of anticoagulants
CPT/HCPCS: 36415; 85610

== ENCOUNTER → 2021-12-03 | Outpatient (CLI) | payer MEDICARE, OTHER, SELFPAY ==
[2021-12-03 11:14] LABS: International Normalized Ratio 2.7; Prothrombin Time (Protime)PT. 28.6 SECONDS (11.7-14.9)
== END | disposition home or self-care (01) ==
LOC: LAB 08:38
PROVIDERS: PCP Internal Medicine; Visit Provider Internal Medicine Cardiovascular Disease
DX: S72.90XA Unspecified fracture of unspecified femur, initial encounter for closed fracture (principal); I48.0 Paroxysmal atrial fibrillation; Z79.01 Long term (current) use of anticoagulants
CPT/HCPCS: 36415; 85610

== ENCOUNTER 2021-12-17 11:46 | Outpatient (RCR) | payer MEDICARE, OTHER, SELFPAY ==
[2021-11-01 00:08] VITALS: BMI 24.0
[2021-12-17 12:40] LABS: International Normalized Ratio 2.8; Prothrombin Time (Protime)PT. 29.3 SECONDS (11.7-14.9)
== END 2021-12-31 23:59 ==
LOC: BIMLAB 11:46
PROVIDERS: Family Provider Internal Medicine; PCP Internal Medicine; Referring Provider Internal Medicine Cardiovascular Disease; Visit Provider Internal Medicine Cardiovascular Disease
DX: I48.0 Paroxysmal atrial fibrillation (principal); Z79.01 Long term (current) use of anticoagulants; S72.90XD Unspecified fracture of unspecified femur, subsequent encounter for closed fracture with routine healing
CPT/HCPCS: 36415; 85610

== ENCOUNTER 2022-01-16 09:03 | Outpatient (RCR) | payer MEDICARE, OTHER, SELFPAY ==
[2022-01-01 00:08] VITALS: BMI 24.0
[2022-01-16 10:26] LABS: International Normalized Ratio 3.5; Prothrombin Time (Protime)PT. 34.5 SECONDS (11.7-14.9)
== END 2022-03-02 02:11 | disposition home or self-care (01) ==
LOC: LAB 09:03
PROVIDERS: Family Provider Internal Medicine; PCP Internal Medicine; Referring Provider Internal Medicine Cardiovascular Disease; Visit Provider Internal Medicine Cardiovascular Disease
DX: I48.0 Paroxysmal atrial fibrillation (principal); Z79.01 Long term (current) use of anticoagulants; S72.90XA Unspecified fracture of unspecified femur, initial encounter for closed fracture; X58.XXXA Exposure to other specified factors, initial encounter
CPT/HCPCS: 36415; 85610

== ENCOUNTER 2022-02-07 11:29 | Outpatient (RCR) | payer MEDICARE, OTHER, SELFPAY ==
[2022-02-07 15:06] LABS: Basophil# 0.06 X10^3/uL; Basophil% 1.1 % (0-1); Eosinophil# 0.28 X10^3/uL; Eosinophils% 5.3 % (0-5); Hematocrit 42.9 % (37-47); Hemoglobin 13.7 g/dL (12.0-15.0); Lymphocyte % 22.8 % (19-41); Mean Corp Hgb Conc 31.9 g/dL (32-36); Mean Corpuscular Hgb 33.3 pg (27.0-32.0); Mean Corpuscular Volume 104.4 fL (81-99); Mean Platelet Vol. 8.9 fl (6.2-12.0); Monocyte# 0.72 X10^3/uL; Monocyte% 13.7 % (0-10); NRBC Flagged by Analyzer 0 % (0-5); Neutrophil # 2.98 X10^3/uL (2.7-7.7); Neutrophil % 56.7 % (47-70); Platelet Count 217 K/mm3 (150-450); RBC Distribution Width CV 15.6 % (11.6-14.6); RBC Distribution Width SD 59.8 fl (35.1-43.9); Red Blood Count 4.11 M/mm3 (4.2-5.4); White Blood Count 5.3 K/mm3 (4.4-11.0)
[2022-02-07 15:23] LABS: Anion Gap 6 (5-15); BUN 32 mg/dL (7-18); BUN/Creat Ratio 21.1 RATIO (10-20); Calcium,Total 9.1 mg/dL (8.5-10.1); Chloride 103 mmol/L (98-107); Creatinine, Serum 1.52 mg/dL (0.55-1.02); EST Glomerular Filtration Rate 35 mL/min (>60); Est Glom Filt Rate - Afr Amer 42 mL/min (>60); Glucose 92 mg/dL (74-106); Sodium Level 139 mmol/L (136-145)
[2022-02-07 15:24] LABS: International Normalized Ratio 2.3; Prothrombin Time (Protime)PT. 25.2 SECONDS (11.7-14.9)
== END 2022-03-02 23:59 ==
LOC: BIMLAB 11:29
PROVIDERS: PCP Internal Medicine; Referring Provider Internal Medicine Cardiovascular Disease; Visit Provider Internal Medicine Cardiovascular Disease
DX: I48.0 Paroxysmal atrial fibrillation (principal); Z79.01 Long term (current) use of anticoagulants; S72.90XD Unspecified fracture of unspecified femur, subsequent encounter for closed fracture with routine healing
CPT/HCPCS: 36415; 80048; 85025; 85610

== ENCOUNTER 2022-04-01 12:11 | Outpatient (RCR) | payer MEDICARE, OTHER, SELFPAY ==
[2022-03-02 02:11] VITALS: BMI 24.0
[2022-03-07 11:54] LABS: International Normalized Ratio 1.8; Prothrombin Time (Protime)PT. 20.9 SECONDS (11.7-14.9)
[2022-03-17 13:42] LABS: International Normalized Ratio 1.9; Prothrombin Time (Protime)PT. 21.4 SECONDS (11.7-14.9)
[2022-04-01 13:06] LABS: International Normalized Ratio 2.5
== END 2022-04-01 18:00 | disposition home or self-care (01) ==
LOC: LAB 12:11
PROVIDERS: Family Provider Internal Medicine; PCP Internal Medicine; Referring Provider Internal Medicine Cardiovascular Disease; Visit Provider Internal Medicine Cardiovascular Disease
DX: I48.0 Paroxysmal atrial fibrillation (principal); Z79.01 Long term (current) use of anticoagulants; S72.90XA Unspecified fracture of unspecified femur, initial encounter for closed fracture; X58.XXXA Exposure to other specified factors, initial encounter
CPT/HCPCS: 36415; 85610

== ENCOUNTER → 2022-04-10 | Outpatient (CLI) | payer MEDICARE, OTHER, SELFPAY | END | disposition home or self-care (01) | PROVIDERS: PCP Internal Medicine; Referring Provider Physician Assistant Medical; Visit Provider Physician Assistant Medical | DX: R06.09 Other forms of dyspnea (principal) | CPT/HCPCS: 36415; 84443 ==

== ENCOUNTER 2022-04-14 12:19 | Outpatient (RCR) | payer MEDICARE, OTHER, SELFPAY ==
[2022-04-02 22:48] VITALS: BMI 24.0
[2022-04-14 13:45] LABS: International Normalized Ratio 2.6; Prothrombin Time (Protime)PT. 27.8 SECONDS (11.7-14.9)
== END 2022-04-14 18:00 | disposition home or self-care (01) ==
LOC: LAB 12:19
PROVIDERS: Family Provider Internal Medicine; PCP Internal Medicine; Referring Provider Internal Medicine Cardiovascular Disease; Visit Provider Internal Medicine Cardiovascular Disease
DX: I48.0 Paroxysmal atrial fibrillation (principal); S72.90XA Unspecified fracture of unspecified femur, initial encounter for closed fracture; X58.XXXA Exposure to other specified factors, initial encounter; Z79.01 Long term (current) use of anticoagulants
CPT/HCPCS: 36415; 85610

== ENCOUNTER → 2022-04-21 | Outpatient (CLI) | payer MEDICARE, OTHER, SELFPAY | END | disposition home or self-care (01) | LOC: PSN 09:02 | PROVIDERS: PCP Internal Medicine; Referring Provider Physician Assistant Medical; Visit Provider Physician Assistant Medical | DX: I48.92 Unspecified atrial flutter (principal); I50.32 Chronic diastolic (congestive) heart failure; I11.0 Hypertensive heart disease with heart failure; I48.0 Paroxysmal atrial fibrillation | CPT/HCPCS: 93225; 93226 ==

== ENCOUNTER 2022-05-27 15:09 | Outpatient (RCR) | payer MEDICARE, OTHER, SELFPAY ==
[2022-05-02 20:40] VITALS: BMI 24.0
[2022-05-05 13:58] LABS: International Normalized Ratio 2.9; Prothrombin Time (Protime)PT. 29.8 SECONDS (11.7-14.9)
[2022-05-27 16:23] LABS: International Normalized Ratio 2.9; Prothrombin Time (Protime)PT. 29.7 SECONDS (11.7-14.9)
[2022-05-27 16:47] LABS: Thyroid Stim Hormone (TSH) 0.61 uIU/mL (0.358-3.74)
== END 2022-05-27 18:00 | disposition home or self-care (01) ==
LOC: LAB 15:09
PROVIDERS: Family Provider Internal Medicine; PCP Internal Medicine; Referring Provider Internal Medicine Cardiovascular Disease; Visit Provider Internal Medicine Cardiovascular Disease
DX: I48.0 Paroxysmal atrial fibrillation (principal); S72.90XA Unspecified fracture of unspecified femur, initial encounter for closed fracture; Z79.01 Long term (current) use of anticoagulants; E03.9 Hypothyroidism, unspecified
CPT/HCPCS: 36415; 84443; 85610

== ENCOUNTER → 2022-06-10 | Outpatient (CLI) | payer MEDICARE, OTHER, SELFPAY ==
--- NOTE | 2022-06-10 13:54 | VDLE_ITS ---
Reason For Study: LEG PAIN Procedure LEFT This is a venous duplex using B-mode, color GSV is normal. flow and spectral Doppler. CFV is compressible, spontaneous, phasic, Exam performed in department. competent, and demonstrates normal The exam was diagnostic. augmentation. A preliminary report was called and/or faxed FV is compressible, spontaneous, phasic, to Tammie Pillai NP. competent and demonstrates normal augmentation. POP V is compressible, spontaneous, phasic, competent and demonstrates normal augmentation. T/P Trunk is compressible. PTV is compressible. LT PerV is compressible. VL/Venous Duplex US, Unilateral Interpretation Summary Deep veins of the left lower extremity are patent and compressible segmentally. There is no evidence of left lower extremity deep vein thrombosis. The left great saphenous vein ginny ears patent and compressible segmentally. Ordering Physician: Tammie Pillai Referring Physician: Agnieszka Fish Performed By: Cheko Ramos RVT
== END | disposition home or self-care (01) ==
LOC: CVS 13:53
PROVIDERS: PCP Internal Medicine; Referring Provider Nurse Practitioner Gerontology; Visit Provider Nurse Practitioner Gerontology
DX: M79.662 Pain in left lower leg (principal)
CPT/HCPCS: 93971

== ENCOUNTER 2022-06-13 11:30 | Outpatient (RCR) | payer MEDICARE, OTHER, SELFPAY ==
[2022-06-03 09:31] VITALS: BMI 24.0
[2022-06-13 15:11] LABS: Absolute Lymphocyte Count 0.95 X10^3/uL (0.83-4.51); Absolute Neutrophil Count 3.9 X10^3/uL (2.0-7.7); Basophil# 0.07 X10^3/uL; Basophil% 1.1 % (0-1); Eosinophil# 0.57 X10^3/uL; Hematocrit 39.1 % (37-47); Hemoglobin 12.3 g/dL (12.0-15.0); Lymphocyte # 0.95 X10^3/ul (0.83-4.51); Mean Corp Hgb Conc 31.5 g/dL (32-36); Mean Corpuscular Hgb 33.4 pg (27.0-32.0); Mean Corpuscular Volume 106.3 fL (81-99); Mean Platelet Vol. 9.1 fl (6.2-12.0); Monocyte% 12.6 % (0-10); NRBC Flagged by Analyzer 0 % (0-5); Neutrophil # 3.93 X10^3/uL (2.7-7.7); Neutrophil % 61.8 % (47-70); Platelet Count 232 K/mm3 (150-450); RBC Distribution Width CV 14.3 % (11.6-14.6); RBC Distribution Width SD 56.1 fl (35.1-43.9); Red Blood Count 3.68 M/mm3 (4.2-5.4); White Blood Count 6.4 K/mm3 (4.4-11.0)
[2022-06-13 15:32] LABS: Anion Gap 8 (5-15); BUN 17 mg/dL (7-18); BUN/Creat Ratio 16.7 RATIO (10-20); Calcium,Total 9.1 mg/dL (8.5-10.1); Chloride 105 mmol/L (98-107); Creatinine, Serum 1.02 mg/dL (0.55-1.02); EST Glomerular Filtration Rate 55 mL/min (>60); Est Glom Filt Rate - Afr Amer 66 mL/min (>60); Glucose 66 mg/dL (74-106); Magnesium 2.4 mg/dL (1.6-2.6); Potassium 4.8 mmol/L (3.5-5.1); Sodium Level 140 mmol/L (136-145)
[2022-06-13 15:43] LABS: International Normalized Ratio 2.8; Prothrombin Time (Protime)PT. 29.5 SECONDS (11.7-14.9)
== END 2022-07-02 23:59 ==
LOC: BIMLAB 11:30
PROVIDERS: Physician Assistant; Family Provider Internal Medicine; PCP Internal Medicine; Referring Provider Internal Medicine Cardiovascular Disease; Visit Provider Internal Medicine Cardiovascular Disease
DX: I48.0 Paroxysmal atrial fibrillation (principal); S72.90XA Unspecified fracture of unspecified femur, initial encounter for closed fracture; X58.XXXA Exposure to other specified factors, initial encounter; Z79.01 Long term (current) use of anticoagulants
CPT/HCPCS: 36415; 80048; 83735; 85025; 85610

== ENCOUNTER → 2022-07-10 | Outpatient (CLI) | payer MEDICARE, OTHER, SELFPAY ==
--- NOTE | 2022-07-10 13:45 | RAD_ITS ---
STUDY: X-RAY CHEST REASON FOR EXAM: Female, 86 years old. Possible DCCV, also on Amiodarone TECHNIQUE: XR Chest 2 Views COMPARISON: 02.13.20 FINDINGS: There is atherosclerotic calcification of the aortic arch with tortuosity. There are diffuse degenerative changes of the visualized thoracic spine. There is degenerative osteoarthritis of the bilateral shoulders. Healed right rib fracture . Stable lower lobe compressive root. Normal size heart. Normal mediastinum and debi. Normal visualized pulmonary arteries. There is no demonstrated abnormality of the visualized soft tissue structures of the upper abdomen. RAD/Chest PA and Lateral IMPRESSION: There are no acute findings. Electronically Signed: Carson Mitchell MD at 18:13 EST ,
[2022-07-10 14:21] LABS: Hematocrit 41.4 % (37-47); Hemoglobin 13.5 g/dL (12.0-15.0); Mean Corp Hgb Conc 32.6 g/dL (32-36); Mean Corpuscular Hgb 34.6 pg (27.0-32.0); Mean Corpuscular Volume 106.2 fL (81-99); Mean Platelet Vol. 8.4 fl (6.2-12.0); Platelet Count 237 K/mm3 (150-450); RBC Distribution Width CV 14.4 % (11.6-14.6); RBC Distribution Width SD 56.5 fl (35.1-43.9); White Blood Count 6.4 K/mm3 (4.4-11.0)
[2022-07-10 14:34] LABS: International Normalized Ratio 3.3; Prothrombin Time (Protime)PT. 33.1 SECONDS (11.7-14.9)
[2022-07-10 15:01] LABS: Anion Gap 3 (5-15); BUN 15 mg/dL (7-18); BUN/Creat Ratio 14.7 RATIO (10-20); Calcium,Total 9.1 mg/dL (8.5-10.1); Chloride 106 mmol/L (98-107); Creatinine, Serum 1.02 mg/dL (0.55-1.02); EST Glomerular Filtration Rate 55 mL/min (>60); Est Glom Filt Rate - Afr Amer 66 mL/min (>60); Glucose 94 mg/dL (74-106); Magnesium 2.6 mg/dL (1.6-2.6); Potassium 4.6 mmol/L (3.5-5.1); Sodium Level 139 mmol/L (136-145); Thyroid Stim Hormone (TSH) 3.38 uIU/mL (0.358-3.74)
== END | disposition home or self-care (01) ==
PROVIDERS: Physician Assistant Medical; PCP Internal Medicine; Referring Provider Internal Medicine Cardiovascular Disease; Visit Provider Internal Medicine Cardiovascular Disease
DX: R06.09 Other forms of dyspnea (principal); I50.32 Chronic diastolic (congestive) heart failure; I48.0 Paroxysmal atrial fibrillation; R00.2 Palpitations; Z79.01 Long term (current) use of anticoagulants; Z79.899 Other long term (current) drug therapy
CPT/HCPCS: 36415; 71046; 80048; 83735; 84443; 85027; 85610

== ENCOUNTER 2022-07-15 10:39 | Day surgery (SDC) | payer MEDICARE, OTHER, SELFPAY ==
--- NOTE | 2022-07-11 15:46 | HP.PCM_ITS ---
History and Physical Date of Admission: 07/15/22 [facility] [address] [place], [place] [id number] OFFICE VISIT Name:SAEID DUNCAN : 1935 Age/Sex:? 86/F ?HPI HPI History of Present Illness Details: SAEID WALLS, is a 86 F who presents here today for a cardiovascular follow up with a history of atrial fibrillation/flutter, tachycardic induced cardiomyopathy with systolic CHF, aortic valve stenosis, MR/TR, pulmonary hypertension, hyperlipidemia, and hypertension. In the past she did have an evaluation in the past for her cardiac dysrhythmia by? EP for possible ablation therapy.? She states she was thought not to be an ideal candidate. She did at times have lightheadedness and thinks that this was related to her atrial fib.? She does not have any chest pain or worsening shortness of breath.? Intake Vital Signs ? 07/11/2114:05 02/07/2210:56 04/10/2210:06 04/10/2210:07 Height 5 ft 9 in 5 ft 8 in 5 ft 8 in 5 ft 8 in Weight: ? ? 150 lb ? BMI ? ? 22.8 ? BP ? ? 110/70 ? Blood Pressure Location ? ? Lt brachial ? Position ? ? Sitting ? Respiration ? ? 18 ? Pulse ? ? 87 ? Pulse Source ? ? Monitor ? Pulse Oximetry (%) ? ? 98 ? 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: No Is patient in pain?: No Allergies bee venom protein (honey bee) Allergy (Unknown, Verified 04/10/22 10:09) UNKNOWNpropoxyphene [From Darvocet-N] Allergy (Unknown, Verified 04/10/22 10:09) UNKNOWNcodeine Adverse Reaction (Verified 04/10/22 10:09) Other Medications ascorbic acid (vitamin C) 500 mg tablet 500 mg PO DAILY@0800 SUPPLEMENT 01/24/15 [History Confirmed 04/10/22] aspirin 81 mg tablet,delayed release 81 mg PO DAILY@0800 Check with primary doctor 01/24/15 [History Confirmed 04/10/22] vitamin B comp and C no.3 15 mg-10 mg-50 mg-5 mg-300 mg capsule 1 ea PO DAILY SUPPLEMENT 04/24/15 [History Confirmed 04/10/22] multivitamin 1 ea PO DAILY VITAMIN 10/14/17 [History Confirmed 04/10/22] compress.stocking,knee,reg,lrg #2 ea 05/02/20 [Rx Confirmed 04/10/22] atorvastatin 20 mg tablet 20 mg PO QHS CHOLESTEROL 09/03/21 [History Confirmed 04/10/22] acetaminophen 500 mg tablet 1,000 mg PO Q6H PRN PRN Pain Score 1-5 #0 tabs 09/11/21 [Rx Confirmed 04/10/22] alendronate 70 mg tablet tablet PO 09/24/21 [History Confirmed 04/10/22] amiodarone 100 mg tablet 100 mg PO DAILY #90 tabs 10/01/21 [Rx Confirmed 04/10/22] amlodipine 5 mg tablet 5 mg PO DAILY #90 tabs 10/01/21 [Rx Confirmed 04/10/22] Handicap Placard #1 ea 10/08/21 [Rx Confirmed 02/07/22] potassium chloride 20 mEq tablet,extended release 20 meq PO .COMPLEX POTASSIUM 10/16/21 [History Confirmed 04/10/22] metoprolol succinate 50 mg tablet,extended release 24 hr 50 mg PO DAILY BP, HR #90 tabs 12/17/21 [Rx Confirmed 04/10/22] warfarin 3 mg tablet 3 mg PO .COMPLEX #180 tabs 12/26/21 [Rx Confirmed 04/10/22] pantoprazole 40 mg tablet,delayed release 40 mg PO DAILY #90 tabs 02/07/22 [Rx Confirmed 04/10/22] levothyroxine 100 mcg tablet 100 mcg PO DAILY THYROID #120 tabs 03/06/22 [Rx Confirmed 04/10/22] furosemide 20 mg tablet 20 mg PO .COMPLEX FLUID #270 tabs 04/10/22 [Rx Confirmed 04/10/22] losartan 50 mg tablet 25 mg PO DAILY BP 04/10/22 [History Confirmed 04/10/22] PFSH Medical History? Anemia Anticoagulation goal of INR 2 to 3 Anxiety Arthritis Atrial fibrillation with normal ventricular rate Back problem Cataracts, bilateral Chronic headaches Cough Cystitis DDD (degenerative disc disease) Depression Dermatitis Diverticulosis Dyspnea on exertion Essential hypertension Foul smelling urine GERD (gastroesophageal reflux disease) Headache Hx of fracture of femur Hyperlipidemia Hypertension Hypothyroidism (acquired) Insomnia due to medical condition Joint pain Non-rheumatic mitral regurgitation Nonrheumatic aortic (valve) stenosis Nonrheumatic tricuspid valve regurgitation Osteopenia Osteoporosis 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 Paroxysmal atrial fibrillation Post-nasal drainage Pulmonary hypertension Pure hypercholesterolemia RBBB Seasonal allergies Snoring Urinary tract infection with hematuria UTI (urinary tract infection) Vision problems Surgical History? History of cardioversion History of cataract extraction History of total left knee replacement Status post surgical manipulation of ankle joint Status post total left knee replacement Family History? Mother Heart disease High cholesterol Osteoporosis CVA (cerebral vascular accident) HypertensionFather Hypertension Alcohol abuseSister Asthma Hypertension Thyroid disorder Social History? household members:? none Smoking Status:? Never smoker alcohol intake:? never substance use type:? does not use what type of physical activity do you participate in:? none ROS Const Const: Negative for fatigue, weakness, headache(s), frequent falls, excessive sweating, weight gain or weight loss Eyes Eyes: Negative for blind spots, loss of peripheral vision, transient loss of vision, blurry vision, change in vision or double vision ENT ENT: Negative for headache(s), dizziness, tinnitus, Nosebleed/epistaxis or balance problems Cardio Chest Pain: No Palpitations: Yes Edema: None Muscle aches with walking: None Resp Respiratory: Negative for SOB with activity, SOB at rest, SOB orthopnea\SOB lying down or Cough GI GI: Negative nausea, vomiting, heartburn, bloating, vomiting blood/hematemesis, bright, red blood in stools or black,tarry stools : Negative for hematuria Musc Musc: Positive for muscle aches/ myalgia; Negative for muscle weakness, joint pain or balance problems Skin Skin: Negative rash or wounds Neuro Neuro: Positive for lightheadedness; Negative for dizziness, near syncope, syncope, orthostatic symptoms, frequent falls, headache(s), weakness, confusion, memory loss, restless legs, blurry vision or double vision Yovany Hematologic/Lymphatic: Negative for easy bleeding or easy bruising Endo Endo: Negative for fatigue, cold intolerance, heat intolerance or excessive sweating Psych Psych: Negative for anxiety or depression Allergy Allergy/Immunology: Negative for rash Cardiology Exam Const Appearance: cooperative, healthy appearing, comfortable, no acute distress, well developed and well groomed Nutritional Appearance: average body habitus Orientation: alert, awake and oriented x3 Head Head: normal to inspection, normocephalic and atraumatic Ears: hearing grossly normal bilaterally Nose: external nose normal Face and Sinus: face symmetric Eyes Eyelids: eyelids normal Conjunctivae: conjunctivae normal Pupils: PERRL EOM: EOM intact bilaterally Neck Neck: normal visual inspection Carotids: normal carotid upstroke Chest Chest inspection: normal inspection of the chest, symmetric chest movement and normal respiratory effort Auscultation: Bilateral: Clear to Auscultation Cardio Palpation: normal PMI Rate: regular rate Rhythm: irregularly irregular Heart sounds: S1 normal, S2 normal and murmur Murmur: Grade 3/6, harsh, mid systolic, LLSB, LVOT and sternal notch GI GI: normal to inspection, soft and bowel sounds present Neuro General: patient alert, patient awake, patient oriented x3 and moves all extrem ities Skin Skin: no rashes or lesions noted Extremities Pulses: Normal: Right Radial Pulse and Left Radial Pulse Lower Extremity Edema: None: Bilateral Psych Psychological: normal affect Supplemental Info Supplemental Information Transthoracic echocardiogram: 01-20-19 Left ventricular systolic function is normal. The estimated ejection fraction is 60 %. The left atrium is severely enlarged. The right atrium is severely enlarged. There is mild to moderate mitral annular calcification. Extension of the mitral annular calcification onto the posterior mitral valve leaflet. Mild diffuse mitral valve thickening. Moderate (2+) mitral valve insufficiency. Moderately severe (3+) eccentric tricuspid valve insufficiency. Aortic sclerosis, no stenosis. Trivial pulmonic valve insufficiency. Right ventricular systolic pressure estimated to be 51 mmHg. Unable to assess diastolic dysfunction. Echocardiogram: 02/13/2020 Interpretation Summary Left ventricular systolic function is normal. The estimated ejection fraction is 55 %. The left atrium is severely enlarged. The right atrium is severely enlarged. There is mild to moderate mitral annular calcification. Extension of the mitral annular calcification of the base of the posterior mitral valve leaflet. Moderate (2+) mitral valve insufficiency. Moderate (2+) tricuspid valve insufficiency. Mild aortic stenosis. Trivial pulmonic valve insufficiency. Right ventricular systolic pressure estimated to be 50 mmHg. Transmitral diastolic flow velocities suggest diastolic dysfunction (pseudonormal pattern). PFT 01/2019: Isolated reduction diffusion capacity with some stigmata of possible small airways disease.? No significant change compared to previous. Labs: ?? ? LDL Cholesterol 82 mg/dL (0-130) ?? ? HDL Cholesterol 79 mg/dL (40-) ?? ? Triglycerides 106 mg/dL (-199) ?? ? VLDL Cholesterol 21 mg/dL (5-40) Diagnostics: ?? ? Electrocardiogram ? Pulmonary: ?? ? No Data to Display Assessment and Plan Assessment and Plan (1) Chronic diastolic congestive heart failure: ?Status:?Chronic ?Plan: Patient does not have any symptoms of congestive heart failure.? She will continue with therapy with adjustment as deemed appropriate. (2) Essential hypertension: ?Status:?Chronic ?Plan: She will continue medical management with adjustment as deemed appropriate (3) Paroxysmal atrial fibrillation: ?Status:?Chronic ?Plan: She has presented for further evaluation and care with synchronized biphasic DC cardioversion. The procedure and risks have been discussed with her. She was agreeable to this approach. (4) Nonrheumatic aortic (valve) stenosis: ?Status:?Chronic ?Plan: She will continue noninvasive valuation with echocardiographic follow-up as needed. (5) Renal insufficiency: ?Status:?Acute ?Plan: Her renal insufficiency will need to be monitored over time and her medicines adjusted accordingly. (6) Pulmonary hypertension: ?Status:?Chronic ?Plan: Patient does have moderate pulmonary hypertension.? We will continue with her diuretics however we will decrease this due to her renal function. ? ? ? Orders: Orders 12 Lead EKG performed by [facility] Today I48.9 2 - Unspecified atrial flutter ? Thyroid Stim Hormone (TSH) Today R06.09 - Other forms of dyspnea ? Medications: Changed From furosemide ?20 mg PO TAKE 2 TABLETS BY MOUTH IN THE MORNING and ONE TABLET IN THE EVENING;? 270 tabs 3RF FLUID ? ? To furosemide ?20 mg PO TAKE 2 TABLETS BY MOUTH IN THE MORNING 270 tabs 3RF FLUID ? ? From losartan 50 mg? PO DAILY BP ? ? To losartan 25 mg? PO DAILY BP ?Patient Instructions: Decrease your losartan to 25 mg a day Decrease your furosemide to 40 mg a day Get your labs After you have your holter monitor I will call you Plan Details Follow Up: ? ? 6 Weeks (MMM) Coding Level of Care Code Off vis,est,level 4 Diagnoses Chronic diastolic congestive heart failure? I50.32 Essential hypertension? I10 Paroxysmal atrial fibrillation? I48.0 Nonrheumatic aortic (valve) stenosis? I35.0 Renal insufficiency? N28.9 Pulmonary hypertension? I27.20 Coding Level of Care Code Off vis,est,level 4 Diagnoses Chronic diastolic congestive heart failure? I50.32 Essential hypertension? I10 Paroxysmal atrial fibrillation? I48.0 Nonrheumatic aortic (valve) stenosis? I35.0 Renal insufficiency? N28.9 Pulmonary hypertension? I27.20 CC:? Dr. Agnieszka Fish MD ~ Assessment & Plan Addt'l Comments I have examined the patient and the H&P has been reviewed. There are no clinical changes since date of exam. This note was generated using a voice recognition system and there may be incorrect words, spelling or punctuation that were not noted when reviewing the office note prior to saving.
[2022-07-14 07:56] VITALS: BMI 22.8
[2022-07-15 10:51] LABS: INR Fingerstick 3.3; Prothrombin Time Fingerstick 37.8 SEC (11.7-14.9)
--- NOTE | 2022-07-15 12:36 | CARDIOVERS ---
Cardioversion Cardioversion: Date: ??2021 Procedure: Synchronized Biphasic DC Cardioversion Indications: Atrial fibrillation Consent: Per the Patient Anesthesia: per Dr. Rod of pulmonology and critical care medicine with propofol 40 mg IV push total Procedure: Synchronized Biphasic DC Cardioversion: 200 J x 1: Result: Sinus bradycardia; PSVCs; intermittent/transient junctional bradycardia Complications: no apparent complications This note was generated with [employer] software. It may contain incorrect words, spelling, and punctuation that were not noted in checking the note before signing.
--- NOTE | 2022-07-15 12:39 | PCM.OP.PRO ---
Procedure Report Date of Procedure: 07/15/22 CONSCIOUS SEDATION REPORT DATE OF SERVICE: July 15, 2022 BRIEF HISTORY OF PRESENT ILLNESS: The patient is an 86-year-old female who presented to [facility] for an elective outpatient cardioversion due to underlying atrial fibrillation. The patient did undergo a prior cardioversion in October 2017, during which time, she required 40 mg of propofol for sedation purposes. The patient denied any prior anesthetic complications. The patient is currently anticoagulated on Coumadin with an INR of 3.3 today. Her last surface echocardiogram demonstrated an ejection fraction of approximately 60%. PHYSICAL EXAMINATION: VITAL SIGNS: Reviewed and were acceptable. GENERAL: The patient is a female, in no apparent distress, speaking in full sentences. HEENT: Normocephalic, atraumatic. Mucous membranes are moist and pink. Good mouth opening noted. Trachea is midline. Good neck mobility. CHEST: S1, S2 irregularly irregular. No murmurs, rubs or gallops were noted. LUNGS: Clear to auscultation bilaterally without appreciable wheezes, rales or rhonchi. ABDOMEN: Soft, nontender, nondistended. Positive bowel sounds. EXTREMITIES: There is no clubbing, cyanosis or edema. ASA Class: II DESCRIPTION OF PROCEDURE: After confirmation of informed consent, the patient's anesthesia plan was reviewed in detail. Propofol was chosen. Risks and benefits were reviewed and the patient agreed to proceed. At 1216, the patient was given 40 mg of propofol. The patient achieved an appropriate level of sedation and was given a 200 joule synchronized cardioversion by Dr. Babin at the bedside. This was successful in achieving normal sinus rhythm. The patient was monitored until 1227, at which time she reached her baseline mental status and function. The patient tolerated the procedure well. COMPLICATIONS: None ESTIMATED BLOOD LOSS: None RECOMMENDATIONS: Okay to recover in usual fashion. Procedures Pulmonary 9xxxx: [id number] Con Sedation
== END 2022-07-15 13:25 | disposition home or self-care (01) ==
PROVIDERS: PCP Internal Medicine; Referring Provider Internal Medicine Cardiovascular Disease; Visit Provider Internal Medicine Cardiovascular Disease
DX: I48.0 Paroxysmal atrial fibrillation (principal); I11.0 Hypertensive heart disease with heart failure; I50.32 Chronic diastolic (congestive) heart failure; E03.9 Hypothyroidism, unspecified; E78.00 Pure hypercholesterolemia, unspecified; K21.9 Gastro-esophageal reflux disease without esophagitis; Z79.82 Long term (current) use of aspirin; Z79.01 Long term (current) use of anticoagulants; Z79.899 Other long term (current) drug therapy
CPT/HCPCS: 36416; 85610; 92960; 93005; J7040

== ENCOUNTER 2022-08-21 14:39 | Outpatient (RCR) | payer MEDICARE, OTHER, SELFPAY ==
[2022-07-03 00:38] VITALS: BMI 24.0
[2022-08-06 15:25] LABS: International Normalized Ratio 3.1; Prothrombin Time (Protime)PT. 31.9 SECONDS (11.7-14.9)
[2022-08-21 15:28] LABS: Prothrombin Time (Protime)PT. 30.7 SECONDS (11.7-14.9)
[2022-08-21 16:44] LABS: AST(SGOT) 30 U/L (15-37); Alanine Aminotransfer ALT/SGPT 35 U/L (13-56); Albumin, Serum 3.6 g/dL (3.2-5.0); Alkaline Phosphatase 74 U/L (45-117); Bilirubin, Direct 0.15 mg/dL (0.00-0.30); Cholesterol 180 mg/dL (200); Globulin 3.6 g/dL (2.2-4.2); High Density Lipoprotein 80 mg/dL; Protein, Total 7.2 g/dL (6.4-8.2); Triglycerides 168 mg/dL; Very Low Density Lipoprotein 34 mg/dL (5-40)
== END 2022-08-21 16:00 | disposition home or self-care (01) ==
LOC: LAB 14:39
PROVIDERS: Physician Assistant Medical; Family Provider Internal Medicine; PCP Internal Medicine; Referring Provider Internal Medicine Cardiovascular Disease; Visit Provider Internal Medicine Cardiovascular Disease
DX: I48.0 Paroxysmal atrial fibrillation (principal); S72.90XD Unspecified fracture of unspecified femur, subsequent encounter for closed fracture with routine healing; Z79.01 Long term (current) use of anticoagulants; E78.00 Pure hypercholesterolemia, unspecified
CPT/HCPCS: 36415; 80061; 80076; 85610

== ENCOUNTER → 2022-09-18 | Outpatient (CLI) | payer MEDICARE, OTHER, SELFPAY ==
--- NOTE | 2022-09-18 15:50 | RAD_ITS ---
EXAM: XR CHEST, 2 VIEWS CLINICAL INDICATION: COUGH TECHNIQUE: Frontal and lateral views of the chest. This report was created using [employer] report generation technology. COMPARISON: 07/10/2022 FINDINGS: LUNGS AND PLEURAL SPACES: Unremarkable. No consolidation or edema. No pneumothorax. No effusion. HEART: Cardiac silhouette is at the upper limits of normal in size. MEDIASTINUM: Central airways and mediastinal contour are unremarkable. BONES/JOINTS: Unremarkable. SOFT TISSUES: Unremarkable. RAD/Chest PA and Lateral IMPRESSION: Borderline cardiomegaly with no pulmonary abnormality. Electronically Signed: Ibrahima Da Silva MD at 16:16 EST ,
== END | disposition home or self-care (01) ==
LOC: RAD 15:40
PROVIDERS: PCP Internal Medicine; Referring Provider Nurse Practitioner Family; Visit Provider Nurse Practitioner Family
DX: R05.9 Cough, unspecified (principal)
CPT/HCPCS: 71046

== ENCOUNTER 2022-09-26 13:25 | Outpatient (RCR) | payer MEDICARE, OTHER, SELFPAY ==
[2022-09-03 08:06] VITALS: BMI 24.0
[2022-09-09 14:56] LABS: International Normalized Ratio 3.7
[2022-09-26 13:58] LABS: International Normalized Ratio 2.7; Prothrombin Time (Protime)PT. 27.9 SECONDS (11.7-14.9)
== END 2022-09-26 18:00 | disposition home or self-care (01) ==
LOC: LAB 13:25
PROVIDERS: Family Provider Internal Medicine; PCP Internal Medicine; Referring Provider Internal Medicine Cardiovascular Disease; Visit Provider Internal Medicine Cardiovascular Disease
DX: I48.0 Paroxysmal atrial fibrillation (principal); Z79.01 Long term (current) use of anticoagulants; S72.90XD Unspecified fracture of unspecified femur, subsequent encounter for closed fracture with routine healing
CPT/HCPCS: 36415; 85610

== ENCOUNTER 2022-10-31 13:07 | Outpatient (RCR) | payer MEDICARE, OTHER, SELFPAY ==
[2022-09-30 19:57] VITALS: BMI 24.0
[2022-10-31 13:43] LABS: International Normalized Ratio 3.1; Prothrombin Time (Protime)PT. 31.4 SECONDS (11.7-14.9)
== END 2022-10-31 21:47 | disposition home or self-care (01) ==
LOC: LAB 13:07
PROVIDERS: Family Provider Internal Medicine; PCP Internal Medicine; Referring Provider Internal Medicine Cardiovascular Disease; Visit Provider Internal Medicine Cardiovascular Disease
DX: I48.92 Unspecified atrial flutter (principal); Z79.01 Long term (current) use of anticoagulants; Z79.899 Other long term (current) drug therapy
CPT/HCPCS: 36415; 85610

== ENCOUNTER 2022-12-04 13:23 | Outpatient (RCR) | payer MEDICARE, OTHER, SELFPAY ==
[2022-10-31 21:48] VITALS: BMI 24.0
[2022-12-04 13:51] LABS: International Normalized Ratio 2.4; Prothrombin Time (Protime)PT. 26.7 SECONDS (11.7-14.9)
== END 2022-12-31 18:00 | disposition home or self-care (01) ==
LOC: LAB 13:23
PROVIDERS: Family Provider Internal Medicine; PCP Internal Medicine; Referring Provider Physician Assistant Medical; Visit Provider Physician Assistant Medical
DX: I48.0 Paroxysmal atrial fibrillation (principal); Z79.01 Long term (current) use of anticoagulants; I48.92 Unspecified atrial flutter
CPT/HCPCS: 36415; 85610

== ENCOUNTER → 2023-01-06 | Outpatient (CLI) | payer MEDICARE, OTHER, SELFPAY | END | disposition home or self-care (01) | LOC: PSN 09:48 | PROVIDERS: PCP Internal Medicine; Referring Provider Physician Assistant Medical; Visit Provider Physician Assistant Medical | DX: R00.1 Bradycardia, unspecified (principal) | CPT/HCPCS: 93225; 93226 ==

== ENCOUNTER 2023-01-23 10:55 | Outpatient (RCR) | payer MEDICARE, OTHER, SELFPAY ==
[2023-01-01 08:30] VITALS: BMI 24.0
[2023-01-01 16:26] LABS: International Normalized Ratio 3.3; Prothrombin Time (Protime)PT. 33.9 SECONDS (11.7-14.9)
[2023-01-23 12:22] LABS: International Normalized Ratio 2.4; Prothrombin Time (Protime)PT. 26.6 SECONDS (11.7-14.9)
[2023-01-23 12:30] LABS: Absolute Lymphocyte Count 0.76 X10^3/uL (0.83-4.51); Absolute Neutrophil Count 3.9 X10^3/uL (2.0-7.7); Basophil# 0.09 X10^3/uL; Basophil% 1.4 % (0-1); Eosinophils% 12.8 % (0-5); Hematocrit 45.4 % (37-47); Hemoglobin 14.7 g/dL (12.0-15.0); Lymphocyte # 0.76 X10^3/ul (0.83-4.51); Lymphocyte % 12.2 % (19-41); Mean Corp Hgb Conc 32.4 g/dL (32-36); Mean Corpuscular Hgb 33.8 pg (27.0-32.0); Mean Corpuscular Volume 104.4 fL (81-99); Mean Platelet Vol. 8.7 fl (6.2-12.0); Monocyte# 0.72 X10^3/uL; Monocyte% 11.5 % (0-10); NRBC Flagged by Analyzer 0 % (0-5); Neutrophil # 3.85 X10^3/uL (2.7-7.7); Neutrophil % 61.8 % (47-70); Platelet Count 253 K/mm3 (150-450); RBC Distribution Width CV 14.9 % (11.6-14.6); RBC Distribution Width SD 58.6 fl (35.1-43.9); Red Blood Count 4.35 M/mm3 (4.2-5.4); White Blood Count 6.2 K/mm3 (4.4-11.0)
[2023-01-23 12:43] LABS: Anion Gap 6 (5-15); BUN 19 mg/dL (7-18); BUN/Creat Ratio 16.7 RATIO (10-20); Calcium,Total 9.2 mg/dL (8.5-10.1); Chloride 106 mmol/L (98-107); Creatinine, Serum 1.14 mg/dL (0.55-1.02); EST Glomerular Filtration Rate 48 mL/min (>60); Est Glom Filt Rate - Afr Amer 58 mL/min (>60); Glucose 96 mg/dL (74-106); Potassium 4.4 mmol/L (3.5-5.1); Sodium Level 140 mmol/L (136-145); Thyroid Stim Hormone (TSH) 7.89 uIU/mL (0.358-3.74)
[2023-01-23 12:51] LABS: AST(SGOT) 33 U/L (15-37); Alanine Aminotransfer ALT/SGPT 32 U/L (13-56); Albumin, Serum 3.7 g/dL (3.2-5.0); Alkaline Phosphatase 80 U/L (45-117); Bilirubin, Direct 0.25 mg/dL (0.00-0.30); Cholesterol 198 mg/dL (200); Globulin 3.8 g/dL (2.2-4.2); High Density Lipoprotein 94 mg/dL; Protein, Total 7.5 g/dL (6.4-8.2); Triglycerides 90 mg/dL; Very Low Density Lipoprotein 18 mg/dL (5-40)
== END 2023-01-30 23:59 ==
LOC: BIMLAB 10:55
PROVIDERS: Family Provider Internal Medicine; PCP Internal Medicine; Referring Provider Physician Assistant Medical; Visit Provider Physician Assistant Medical
DX: Z79.01 Long term (current) use of anticoagulants; I48.92 Unspecified atrial flutter; Z79.899 Other long term (current) drug therapy
CPT/HCPCS: 36415; 80048; 80061; 80076; 84443; 85025; 85610

== ENCOUNTER 2023-02-12 11:15 | Outpatient (RCR) | payer MEDICARE, OTHER, SELFPAY ==
[2023-01-31 01:37] VITALS: BMI 24.0
[2023-02-12 12:44] LABS: International Normalized Ratio 2.9; Prothrombin Time (Protime)PT. 30.6 SECONDS (11.7-14.9)
== END 2023-03-02 23:59 ==
LOC: BIMLAB 11:15
PROVIDERS: Family Provider Internal Medicine; PCP Internal Medicine; Referring Provider Physician Assistant Medical; Visit Provider Physician Assistant Medical
DX: I48.0 Paroxysmal atrial fibrillation (principal); Z79.01 Long term (current) use of anticoagulants; S72.90XD Unspecified fracture of unspecified femur, subsequent encounter for closed fracture with routine healing
CPT/HCPCS: 36415; 85610

== ENCOUNTER → 2023-02-12 | Outpatient (CLI) | payer MEDICARE, OTHER, SELFPAY ==
--- NOTE | 2023-02-12 10:32 | BD_ITS ---
STUDY: DUAL ENERGY X-RAY ABSORPTIOMETRY / DXA REASON FOR EXAM: Female, 87 years old. Osteoporosis TECHNIQUE: Bone Mineral Density (BMD) measurements of lumbar spine and right hip were obtained. COMPARISON: Comparison is made with prior study March 08, 2019. FINDINGS: Lumbar Spine (L1-L4): g/cm2 (0.828) / T-score (-2.0) / Z-score (0.9) Findings are suggestive of osteopenia with a moderate fracture risk. Right Femur Total: g/cm2 (0.747) / T-score (-1.6) / Z-score (0.7) Right Femoral Neck: g/cm2 (0.567) / T-score (-2.5) / Z-score (0.0) The T-Scores on the most recent prior examination were: Lumbar Spine (L1-L4): There has been improvement of bone density since the previous examination. Right Femur Total: which represents an improvement of 11.7%. BD/Dexa Bone Density Study IMPRESSION: The patient is considered osteoporotic as outlined below according to World Stephen Organization (WHO) criteria with a high fracture risk. There has been improvement of bone density since the previous examination. Reference Information: The T-score is the number of standard deviations above or below the standard which is normal for young adults at their peak bone mineral density. The World Health Organization (WHO) interprets the T-scores as follows: Above -1 Normal bone density Between -1 and -2.5 Osteopenia Equal to / or below -2.5 Osteoporosis As a practical clinical guideline, osteopenia may be graded as follows: Mild -1 through -1.5 Moderate -1.6 through -2.0 Severe -2.1 through -2.4 The Z-score is the number of standard deviations above or below age-matched controls. A Z-score of less than -1.5 would be considered abnormal. References: 1. NIH Osteoporosis and Related Bone Diseases www osteo.org 2. International Society for Clinical Densitometry www iscd.org 3. National Osteoporosis Foundation www nof.org Electronically Signed: Lang Dasilva MD at 15:10 EDT ,
== END | disposition home or self-care (01) ==
LOC: OPBD 10:23
PROVIDERS: PCP Internal Medicine; Referring Provider Internal Medicine; Visit Provider Internal Medicine
DX: M81.0 Age-related osteoporosis without current pathological fracture (principal); I48.92 Unspecified atrial flutter; Z79.01 Long term (current) use of anticoagulants; Z79.899 Other long term (current) drug therapy
CPT/HCPCS: 36415; 77080; 85610

== ENCOUNTER 2023-03-18 14:10 | Outpatient (RCR) | payer MEDICARE, OTHER, SELFPAY ==
[2023-03-03 00:38] VITALS: BMI 24.0
[2023-03-18 14:37] LABS: International Normalized Ratio 3.1; Prothrombin Time (Protime)PT. 32.7 SECONDS (11.7-14.9)
== END 2023-04-02 23:59 ==
LOC: BIMLAB 14:10
PROVIDERS: Family Provider Internal Medicine; PCP Internal Medicine; Referring Provider Physician Assistant Medical; Visit Provider Physician Assistant Medical
DX: I48.0 Paroxysmal atrial fibrillation (principal); Z79.01 Long term (current) use of anticoagulants; S72.90XD Unspecified fracture of unspecified femur, subsequent encounter for closed fracture with routine healing
CPT/HCPCS: 36415; 85610

== ENCOUNTER 2023-04-17 13:44 | Outpatient (RCR) | payer MEDICARE, OTHER, SELFPAY ==
[2023-04-03 00:37] VITALS: BMI 24.0
[2023-04-03 15:13] LABS: International Normalized Ratio 2.2
[2023-04-17 15:10] LABS: International Normalized Ratio 2.6; Prothrombin Time (Protime)PT. 27.8 SECONDS (11.7-14.9)
[2023-04-17 15:51] LABS: Vitamin D,25 Hydroxy 54.8 ng/mL
== END 2023-04-17 18:00 | disposition home or self-care (01) ==
LOC: LAB 13:44
PROVIDERS: Family Provider Internal Medicine; PCP Internal Medicine; Referring Provider Physician Assistant Medical; Visit Provider Physician Assistant Medical
DX: I48.0 Paroxysmal atrial fibrillation (principal); Z79.01 Long term (current) use of anticoagulants; S72.90XD Unspecified fracture of unspecified femur, subsequent encounter for closed fracture with routine healing
CPT/HCPCS: 36415; 82306; 85610

== ENCOUNTER 2023-05-29 12:33 | Outpatient (RCR) | payer MEDICARE, OTHER, SELFPAY ==
[2023-05-03 01:57] VITALS: BMI 24.0
[2023-05-14 17:10] LABS: International Normalized Ratio 2.3; Prothrombin Time (Protime)PT. 25.5 SECONDS (11.7-14.9)
[2023-05-29 13:40] LABS: International Normalized Ratio 3.2; Prothrombin Time (Protime)PT. 32.8 SECONDS (11.7-14.9)
== END 2023-05-29 18:00 | disposition home or self-care (01) ==
LOC: LAB 12:33
PROVIDERS: Family Provider Internal Medicine; PCP Internal Medicine; Referring Provider Physician Assistant Medical; Visit Provider Physician Assistant Medical
DX: I48.0 Paroxysmal atrial fibrillation (principal); Z79.01 Long term (current) use of anticoagulants; I48.92 Unspecified atrial flutter; S72.90XA Unspecified fracture of unspecified femur, initial encounter for closed fracture
CPT/HCPCS: 36415; 85610

== ENCOUNTER 2023-06-18 13:45 | Outpatient (RCR) | payer MEDICARE, OTHER, SELFPAY ==
[2023-06-02 23:21] VITALS: BMI 24.0
[2023-06-18 14:14] LABS: International Normalized Ratio 3.1; Prothrombin Time (Protime)PT. 32.7 SECONDS (11.7-14.9)
== END 2023-07-02 18:00 | disposition home or self-care (01) ==
LOC: LAB 13:45
PROVIDERS: Family Provider Internal Medicine; PCP Internal Medicine; Referring Provider Physician Assistant Medical; Visit Provider Physician Assistant Medical
DX: Z79.01 Long term (current) use of anticoagulants; I48.92 Unspecified atrial flutter; Z79.899 Other long term (current) drug therapy
CPT/HCPCS: 36415; 85610

== ENCOUNTER 2023-07-15 14:44 | Outpatient (RCR) | payer MEDICARE, OTHER, SELFPAY ==
[2023-07-03 03:25] VITALS: BMI 24.0
[2023-07-15 17:03] LABS: International Normalized Ratio 2.7; Prothrombin Time (Protime)PT. 28.7 SECONDS (11.7-14.9)
[2023-07-15 17:05] LABS: AST(SGOT) 29 U/L (15-37); Alanine Aminotransfer ALT/SGPT 32 U/L (13-56); Albumin, Serum 3.7 g/dL (3.2-5.0); Alkaline Phosphatase 76 U/L (45-117); Bilirubin, Direct 0.24 mg/dL (0.00-0.30); Cholesterol 184 mg/dL (200); Globulin 3.9 g/dL (2.2-4.2); High Density Lipoprotein 85 mg/dL; Protein, Total 7.6 g/dL (6.4-8.2); Triglycerides 149 mg/dL; Very Low Density Lipoprotein 30 mg/dL (5-40)
[2023-07-15 17:14] LABS: Anion Gap 4 (5-15); BUN 21 mg/dL (7-18); BUN/Creat Ratio 17.2 RATIO (10-20); Calcium,Total 9.2 mg/dL (8.5-10.1); Chloride 105 mmol/L (98-107); Creatinine, Serum 1.22 mg/dL (0.55-1.02); EST Glomerular Filtration Rate 44 mL/min (>60); Est Glom Filt Rate - Afr Amer 54 mL/min (>60); Glucose 91 mg/dL (74-106); Potassium 4.5 mmol/L (3.5-5.1); Sodium Level 140 mmol/L (136-145); Thyroid Stim Hormone (TSH) 7.35 uIU/mL (0.358-3.74)
== END 2023-08-02 23:59 ==
LOC: BIMLAB 14:44
PROVIDERS: Family Provider Internal Medicine; PCP Internal Medicine; Referring Provider Physician Assistant Medical; Visit Provider Physician Assistant Medical
DX: I48.92 Unspecified atrial flutter (principal); Z79.01 Long term (current) use of anticoagulants; Z79.899 Other long term (current) drug therapy; E03.9 Hypothyroidism, unspecified; M81.0 Age-related osteoporosis without current pathological fracture; E78.00 Pure hypercholesterolemia, unspecified
CPT/HCPCS: 36415; 80048; 80061; 80076; 84443; 85610

== ENCOUNTER 2023-08-31 10:24 | Outpatient (RCR) | payer MEDICARE, OTHER, SELFPAY ==
[2023-08-03 00:26] VITALS: BMI 24.0
[2023-08-14 13:02] LABS: International Normalized Ratio 2.1; Prothrombin Time (Protime)PT. 23.9 SECONDS (11.7-14.9)
[2023-08-14 13:19] LABS: Thyroid Stim Hormone (TSH) 2.42 uIU/mL (0.358-3.74)
[2023-08-31 10:55] LABS: Prothrombin Time (Protime)PT. 31.3 SECONDS (11.7-14.9)
[2023-08-31 11:32] LABS: Anion Gap 5 (5-15); BUN 20 mg/dL (7-18); Chloride 112 mmol/L (98-107); Creatinine, Serum 1.11 mg/dL (0.55-1.02); EST Glomerular Filtration Rate 49 mL/min (>60); Est Glom Filt Rate - Afr Amer 60 mL/min (>60); Glucose 79 mg/dL (74-106); Potassium 4.8 mmol/L (3.5-5.1); Sodium Level 142 mmol/L (136-145)
== END 2023-08-31 18:00 | disposition home or self-care (01) ==
LOC: LAB 10:24
PROVIDERS: Family Provider Internal Medicine; PCP Internal Medicine; Referring Provider Physician Assistant Medical; Visit Provider Physician Assistant Medical
DX: I48.92 Unspecified atrial flutter (principal); Z79.01 Long term (current) use of anticoagulants; Z79.899 Other long term (current) drug therapy; I48.11 Longstanding persistent atrial fibrillation
CPT/HCPCS: 36415; 80048; 84443; 85610

== ENCOUNTER 2023-09-21 12:43 | Outpatient (RCR) | payer MEDICARE, OTHER, SELFPAY ==
[2023-09-02 21:54] VITALS: BMI 24.0
[2023-09-21 13:12] LABS: Prothrombin Time (Protime)PT. 31.6 SECONDS (11.7-14.9)
[2023-09-21 13:57] LABS: Anion Gap 4 (5-15); BUN 17 mg/dL (7-18); BUN/Creat Ratio 14.7 RATIO (10-20); Calcium,Total 9.5 mg/dL (8.5-10.1); Chloride 109 mmol/L (98-107); Creatinine, Serum 1.16 mg/dL (0.55-1.02); EST Glomerular Filtration Rate 47 mL/min (>60); Est Glom Filt Rate - Afr Amer 57 mL/min (>60); Glucose 76 mg/dL (74-106); Potassium 4.3 mmol/L (3.5-5.1); Sodium Level 141 mmol/L (136-145)
== END 2023-10-01 18:00 | disposition home or self-care (01) ==
LOC: LAB 12:43
PROVIDERS: Family Provider Internal Medicine; PCP Internal Medicine; Referring Provider Physician Assistant Medical; Visit Provider Physician Assistant Medical
DX: I48.92 Unspecified atrial flutter (principal); Z79.01 Long term (current) use of anticoagulants; Z79.899 Other long term (current) drug therapy; I11.0 Hypertensive heart disease with heart failure; I50.32 Chronic diastolic (congestive) heart failure
CPT/HCPCS: 36415; 80048; 85610

== ENCOUNTER → 2023-09-29 | Outpatient (CLI) | payer MEDICARE, OTHER, SELFPAY ==
--- NOTE | 2023-09-29 06:48 | ECHOD_ITS ---
Reason For Study: CP Procedure This was a 2D Doppler, Color Flow transthoracic echocardiogram. Technically difficult study due to heart rate. Exam performed in department. Left Ventricle Normal LV size. The estimated ejection fraction is 35 %. There is moderate global hypokinesis of the left ventricle. Right Ventricle Normal RV size. Normal systolic function. Atria The left atrium is severely enlarged. The right atrium is severely enlarged. Mitral Valve There is mild to moderate mitral annular calcification. Mild (1+) eccentric mitral valve insufficiency. Tricuspid Valve Normal tricuspid valve. Moderate (2+) tricuspid valve insufficiency. Pulmonary artery systolic pressure is 68 mmHg. Moderate pulmonary hypertension. Aortic Valve Trisinus/trileaflet aortic valve. Mild focal aortic valve thickening. Pulmonic Valve Normal pulmonic valve. Great Vessels Normal aortic root. The pulmonary artery is normal size. The inferior vena cava is dilated. Pericardium/Pleural No pericardial effusion. MMode/2D Measurements & Calculations LVIDd: 4.3 cm IVSd: 1.1 cm LVOT diam: 2.0 cm LVIDs: 3.4 cm LVPWd: 0.81 cm LVOT area: 3.0 cm2 RVDd: 3.5 cm FS: 20.3 % Ao root diam: 3.4 cm LAV(MOD-bp): 118.1 ml Aortic Valve Planimetry: 1.4 cm2 LA dimension: 5.3 cm LAV(MOD-bp) Indexed: 64.9 ml/m2 LAV(MOD-sp2): 104.1 ml LAV(MOD-sp4): 111.6 ml LA A4 area: 32.7 cm2 RA A4 area: 37.0 cm2 Doppler Measurements & Calculations MV E max sujey: 88.3 cm/sec MV V2 max: 96.4 cm/sec Ao V2 max: 136.5 cm/sec MV max P.7 mmHg Ao max P.5 mmHg MV V2 mean: 57.1 cm/sec Ao V2 mean: 91.4 cm/sec MV mean P.6 mmHg Ao mean P.9 mmHg MV V2 VTI: 9.9 cm Ao V2 VTI: 22.3 cm MVA(VTI): 3.9 cm2 AV (velocity ratio): 0.57 ROSA(I,D): 1.7 cm2 ROSA(V,D): 1.7 cm2 LV V1 max: 75.5 cm/sec MR max sujey: 423.9 cm/sec SV(LVOT): 38.7 ml LV V1 max P.3 mmHg MR max P.9 mmHg LV V1 mean P.2 mmHg LV V1 mean: 49.0 cm/sec LV V1 VTI: 12.8 cm PA V2 max: 61.7 cm/sec TR max sujey: 383.4 cm/sec TR max P.8 mmHg ECHO/Echo Complete Interpretation Summary Normal LV size. The estimated ejection fraction is 35 %. There is moderate global hypokinesis of the left ventricle. Pulmonary artery systolic pressure is 68 mmHg. Moderate pulmonary hypertension. Biatrial enlargement Ordering Physician: Eun Lloyd Referring Physician: Agnieszka Fish Performed By: Vignesh Prieto RCS
--- OUTSIDE RECORDS SUMMARY | 2023-09-29 06:51 | XMS RPT_ITS | CCD ---
Author Name Unknown Address [address] [place] [address] Organization [facility] Care Team Providers Care Electro Tech Name Role Phone DAVINA, PATSY Unavailable Unavailable TALAMPAS, SHARON Unavailable Unavailable DAVINA, PATSY Unavailable Unavailable TALAMPAS, SHARON Unavailable Unavailable TALAMPAS, SHARON Unavailable Unavailable DAVINA, PATSY Unavailable Unavailable TALAMPAS, SHARON Unavailable Unavailable DAVINA, PATSY Unavailable Unavailable DAVINA, PATSY Unavailable Unavailable TALAMPAS, SHARON Unavailable Unavailable DAVINA, PATSY Unavailable Unavailable DAVINA, PATSY Unavailable Unavailable TALAMPAS, SHARON Unavailable Unavailable Allergies Allergy Classification Reported Allergen(s) Allergy Type Date of Onset Reaction(s) Facility (1 source) Bee; Translations: [BEES] Propensity to adverse reactions (disorder) [facility] Repository (1 source) codeine; Translations: [CODEINE] Drug Allergy [facility] Repository (1 source) PROPOXYPHENE N-ACETAMINOPHEN; Translations: [PROPOXYPHENE N-ACETAMINOPHEN] Propensity to adverse reactions (disorder) [facility] Repository (1 source) OTHER; Translations: [OTHER] Propensity to adverse reactions (disorder) [facility] Repository Problems Problem Classification Problem Date Documented Da te Episodic/Chronic Congestive heart failure; nonhypertensive (1 source) Chronic diastolic (congestive) heart failure Onset: 06-11-2017 Chronic Unclassified (1 source) Unknown / UNK(Unknown) Onset: 06-11-2017 Results Test Name Value Interpretation Reference Range Facil ity Encounters Encounter Date Encounter Type Care Provider Facility Start: 01-22-2018 [facility] Facility :[facility] Start: 10-22-2017 End: 10-22-2017 Ambulatory [facility] Facility:[facility] Start: 10-12-2017 End: 10-12-2017 [facility] Facility:[facility] Start: 10-09-2017 End: 10-09-2017 [facility] Facility:[facility] Start: 06-11-2017 End: 06-11-2017 [facility] Facility:[facility] Procedures Date Procedure Procedure Detail Performing Clinician Start: 09-02-2021 Antibody screen Payers Date Payer Category Payer Policy ID Medicare [id number] Clinical Notes 08-29-2021 to 09-03-2021 Note Date & Type Note Facility 09-03-2021 Note HNO ID: [id number] Author: Juana Chua RN Service: Care Management Author Type: Registered Nurse Type: Care Mgt Progress Note Filed: 09/03/2021 10:05 AM Note Text: CARE MANAGEMENT DISCHARGE NOTE SERVICE DATE: 09/03/2021 SERVICE TIME: 1004 LOS: 5 days Admission Date: 08/28/2021 DISCHARGE ARRANGEMENT (list agency and phone number) Discharge Arrangement: Long-Term Facility Was an expedited discharge program used?: No Provider Name: [facility] CAREGIVER ASSESSMENT: HANDOFF COMMUNICATION: Handoff to: Other Caregiver Other Caregiver Name/Phone: RN to call report TRANSPORTATION ARRANGEMENTS: Transportation Arrangements: Ambulance/[facility] Transportation Agency and Phone #:: [facility] ( [facility] ) [phone] / [phone] Date of Trip: 09/03/21 Time of Trip: 1230 Type of Service: BLS Non-emergency Discussion of financial coverage occurred with: Patient Webmethods Consultant Location: [facility] Destination: [facility] Financial Care Management Responsibility: None ADDITIONAL CONTACT RESOURCES: [facility] can accept today. Discussed transportation with patient and requested cot transport. Patietn aware transport billed to insurance but may receive bill. Cot transport arranged for 1230, Patient, RN and facility notified. SIGNATURE: Juana Chua RN PATIENT NAME: Ana Maria Avalos DATE: September 03, 2021 TIME: 10:04 AM PAGER/CONTACT #: [phone] [facility] 09-03-2021 Note HNO ID: [id number] Author: Juana Chua RN Service: Care Management Author Type: Registered Nurse Type: Care Mgt Progress Note Filed: 09/03/2021 10:02 AM Note Text: CARE MANAGEMENT PROGRESS NOTE SERVICE DATE: 09/03/2021 SERVICE TIME: 1002 LOS: 5 days IMM Follow Up Copy Given: Yes Copy given to:: Patient Method: In Person SIGNATURE: Juana Chua RN PATIENT NAME: Ana Maria Avalos DATE: September 03, 2021 TIME: 10:02 AM PAGER/CONTACT #: [phone] [facility] 09-03-2021 Note HNO ID: [id number] Author: Reta Coppola RPh Service: Pharmacy Author Type: Pharmacist Type: Plan of Care Filed: 09/03/2021 9:56 AM Note Text: DISCHARGE MEDICATION REVIEW BY PHARMACY Patient Name: Ana Maria Avalos Account #: Data Unavailable Admission Date: 08/28/2021 Date of Contact: September 03, 2021 Time of Contact: 9:55 AM Medication list was reviewed by a Pharmacist for drug interactions or drug related problems:Yes Below is a summary of pharmacist recommendations discussed with LIP: No Recommendations at this time from Discharge Medication List. Patient's warfarin has been held, just restarted yesterday (INR 1.0). Being d/c to SNF. Reta Coppola RPh September 03, 2021 9:55 AM 09/03/2021 9:55 AM Medication List START taking these medications docusate sodium 100 mg capsule Commonly known as: COLACE Take 1 capsule by mouth twice daily as needed. oxyCODONE IR 5 mg immediate release tablet Commonly known as: ROXICODONE Take 1 tablet by mouth every 6 hours as needed. polyethylene glycol 3350 17 gram packet Commonly known as: MIRALAX, GLYCOLAX Take 1 Packet by mouth once daily as needed. Dissolve dose in 4 - 8 ounces of liquid and take as directed. CHANGE how you take these medications amLODIPine 2.5 mg tablet Commonly known as: NORVASC Take 1 tablet by mouth once daily. What changed: Another medication with the same name was removed. Continue taking this medication, and follow the directions you see here. COUMADIN 3 mg tablet Generic drug: warfarin What changed: Another medication with the same name was removed. Continue taking this medication, and follow the directions you see here. potassium chloride ER 20 mEq tablet Commonly known as: K-DUR, KLOR-CON Take 1 tablet by mouth twice daily. What changed: ? how much to take ? how to take this ? when to take this ? additional instructions CONTINUE taking these medications amiodarone 200 mg tablet Commonly known as: PACERONE Take 0.5 tablets by mouth once daily. ASPIR-81 81 mg EC tablet Generic drug: aspirin, enteric coated atorvastatin 20 mg tablet Commonly known as: LIPITOR Take 1 tablet by mouth once daily. B COMPLEX Tber Generic drug: B Complex Vitamins betamethasone valerate 0.1 % cream Commonly known as: BETA-CHERYL Apply 1 application to affected area three times daily as needed. CALCIUM + D 600 mg-5 mcg (200 unit) Tab Generic drug: calcium carbonate 600 mg-cholecalciferol 200 units COMPOUNDED PRESCRIPTION 1 box of non-adherent 4x4 gauze pads ESTRACE 0.01 % (0.1 mg/gram) vaginal cream Generic drug: estradiol 1gm vaginally once weekly furosemide 20 mg tablet Commonly known as: LASIX Take 2 tabs in the AM, 1 tab in the PM GLUCOSAMINE CHONDROITIN MAXSTR 500-400 mg Cap Generic drug: Xpovdbfhiko-Rjoqqixgi-Znm C-Mn levothyroxine 100 mcg tablet Commonly known as: SYNTHROID Take 1 tablet by mouth once daily. TAKE ONE TABLET BY MOUTH ONCE DAILY ON EMPTY stomach losartan 50 mg tablet Commonly known as: COZAAR Take 1 tablet by mouth once daily. metoprolol succinate ER 25 mg 24 hr tablet Commonly known as: TOPROL XL Take 0.5 tablets by mouth once daily. multivitamin tablet omeprazole 40 mg capsule Commonly known as: PriLOSEC Take 1 capsule by mouth once daily. TylenoL 325 mg tablet Generic drug: acetaminophen VITAMIN C 500 mg tablet Generic drug: ascorbic acid (vitamin C) STOP taking these medications Fish Oil-[place]-3 Fatty Acids 300-1,000 mg Cpdr Commonly known as: Fish OiL [place] 3-6-9 mupirocin 2 % ointment Commonly known as: BACTROBAN Where to Get Your Medications You can get these medications from any pharmacy Bring a paper prescription for each of these medications ? oxyCODONE IR 5 mg immediate release tablet [facility] 09-03-2021 Note HNO ID: [id number] Author: Marni Gray DO Service: Hospital Medicine Author Type: Physician Type: Progress Notes Filed: 09/03/2021 8:19 AM Note Text: DEPARTMENT OF HOSPITAL MEDICINE PROGRESS NOTE SERVICE DATE: 09/03/2021 SERVICE TIME: 8:04 AM Hospital Medicine/Primary Attending: Marni Gray, DO NIGHT AND WEEKEND COVERAGE: After 7pm please page [phone] CHIEF COMPLAINT: I m ok SUBJECTIVE: Pt seen and examined. Feels ok today. Pt denies chest pain, shortness of breath, nausea, vomiting, or diarrhea. OBJECTIVE: PHYSICAL EXAM: BP 123/66 Pulse 81 Temp (Src) 98.2 (Oral) Resp 17 Ht 5' 8 (1.73m) Wt 167 lb 5.3 oz (75.9kg) SpO2 94% BMI 25.45 kg/(m2). O2 Therapy: Room Air General - AANDOx3, NAD, Calm CV - RRR S1 S2, No M/R/G RESP - CTA B/L No wheezes, ronchi, rales ABD - soft, NT, ND +BS EXT - Post op dressing intact NEURO - CN II-XII grossly intact, no focal deficits MEDICATIONS: Current Facility-Administered Medications Medication Dose Route Frequency - amiodarone 100 mg tab(s) (PACERONE) 100 mg ORAL DAILY - atorvastatin 20 mg tab(s) (LIPITOR) 20 mg ORAL AT BEDTIME - losartan 50 mg tab(s) (COZAAR) 50 mg ORAL DAILY - metoprolol succinate ER 12.5 mg tab(s) (TOPROL XL) 12.5 mg ORAL DAILY - amLODIPine 2.5 mg tab(s) (NORVASC) 2.5 mg ORAL DAILY - pantoprazole DR 40 mg tab(s) (PROTONIX) 40 mg ORAL DAILY (6 AM) - levothyroxine 100 mcg tab(s) (SYNTHROID) 100 mcg ORAL DAILY (6 AM) - sodium chloride 0.9 % (flush) 3-5 mL (BD POSIFLUSH) 3-5 mL INTRAVENOUS q 12 H - NaCl 0.9% iv flush bag 20 mL INTRAVENOUS PRN - aluminum-magnesium hydroxide-simethicone 200-200-20 mg/5 mL 30 mL (MAALOX,MYLANTA,MAG-AL PLUS) 30 mL ORAL q 6 H PRN - benzocaine-menthol 1 Lozenge (CEPACOL) 1 Lozenge MUCOUS MEMBRANE (TOPICAL MOUTH AND THROAT) q 2 H PRN - guaiFENesin 600 mg ER tab(s) (MUCINEX) 600 mg ORAL q 12 H PRN - melatonin 3 mg tab(s) 3 mg ORAL HS PRN - ondansetron (PF) 4 mg injection (ZOFRAN) 4 mg INTRAVENOUS q 6 H PRN - polyethylene glycol 3350 17 g packet (MIRALAX, GLYCOLAX) 17 g ORAL DAILY PRN - docusate sodium 100 mg cap(s) (COLACE) 100 mg ORAL BID PRN - polyvinyl alcohol-povidone 1.4-0.6 % 1 Drop (REFRESH) 1 Drop BOTH EYES PRN - saliva substitute combo no.9 15 mL (BIOTENE mouthwash) 15 mL MUCOUS MEMBRANE (TOPICAL MOUTH AND THROAT) TID PRN - sodium chloride 0.65 % 2 [place] (AYR, OCEAN) 2 [place] EACH NOSTRIL PRN - prochlorperazine 10 mg injection (COMPAZINE) 10 mg INTRAVENOUS q 6 H PRN - sodium chloride 0.9 % (flush) 3-5 mL (BD POSIFLUSH) 3-5 mL INTRAVENOUS q 12 H - senna 17.2 mg tab(s) (SENOKOT) 17.2 mg ORAL AT BEDTIME - acetaminophen 650 mg tab(s) (TYLENOL) 650 mg ORAL TID - oxyCODONE IR 5 mg tab(s) (ROXICODONE) 5 mg ORAL q 3 H PRN - morphine 2 mg injection 2 mg INTRAVENOUS q 2 H PRN - warfarin 5 mg tab(s) (COUMADIN) 5 mg ORAL DAILY - WARFARIN DATA: Diagnostic tests reviewed for today's visit: CBC: Recent Labs 09/03/21100 WBC 6.88 RBC 2.70* HB 8.7* HCT 27.8* PLT 174 MCV 103.0* MCH 32.2 MPV 8.8* Coags: No results for input(s): PT, INR, APTT in the last 24 hours. BMP: Recent Labs 09/03/21100 NA 138 K 4.3 CHLOR 103 CO2 25 BUN 12 CREAT 0.87 GLUC 110* CMP: Recent Labs 09/03/21100 NA 138 K 4.3 CHLOR 103 CO2 25 BUN 12 CREAT 0.87 GLUC 110* CA 8.3* ANION 10 Cardiac Enzymes: No results for input(s): CK, MB, CKMB, TROPT in the last 24 hours. Liver Function, Amylase, Lipase: No results for input(s): TPROT, ALB, ALT, AST, ALKPHOS, TBILI, AMYLASE, LIPASE, LACTATE in the last 24 hours. MG/PHOS: No results for input(s): MG, P in the last 24 hours. Renal Panel: Recent Labs 09/03/21 0101 CREAT 0.87 BUN 12 GLUC 110* CA 8.3* CHLOR 103 K 4.3 CO2 25 NA 138 Heme: No results for input(s): RETICP, ABSRETIC, LD, KEVAN, FE, TIBC, TRANSFERSAT in the last 24 hours. Albumin/Creat Ratio (mg/g) Date Value 01/04/2014 2 Estimated Creatinine Clearance: 47.7 mL/min (based on SCr of 0.87 mg/dL). Assessment/Plan 1. POD #4 s/p IM nail of left distal femur fracture - plans for DC today 2. CHronic diastolic CHF - compensated. Restart lasix 3. Atrial fib - chronic. Re start OAC 4. Lung nodule - needs outpatient follow up 5. Macrocytic anemia - stable s/p transfusion 6. CHRISTOPHER vs CKD 3 - renal function now normal 7. Hypothyroidism - con't with synthroid 8. Hypoxia - resolved Medication and Non-Pharmacologic VTE Prophylaxis/Anticoagulants Anticoagulant AND Antiplatelet Medications (From admission, onward) Start Dose Route Frequency Last Action Ordered Stop 09/02/21 1700 warfarin 5 mg tab(s) (COUMADIN) 5 mg ORAL DAILY - WARFARIN Given, 09/02 1620 09/02/21 1359 09/07/21 1659 08/29/21 1230 vte pharmacologic prophylaxis contraindicated (tx,oh) 08/29/21 1230 pneumatic compression stockings (tx,nm) 08/29/21 1230 activity - mobilize patient (tx,nm) 08/29/21 0245 vte pharmacologic prophylaxis contra (more content not included)... [facility] 09-03-2021 Note HNO ID: [id number] Author: Stevie Urrutia MD Service: Orthopaedic Surgery Author Type: Resident Type: Progress Notes Filed: 09/03/2021 6:31 AM Note Text: Orthopaedic INPATIENT PROGRESS NOTE Assessment: 86 year old female?POD4?status-post?retrograde IM nailing of the left periprosthetic distal femur fracture. ? - Medical management per primary - Pain control. - Weight Bearing Status:?Partial WB LLE <60?lbs; WBAT RLE (post-op shoe ordered) - Dressing(s):?Maintain super riky, aquacel and tegaderms dressing LLE x 7-10 days: will change today - PT/OT: Evaluation AND?recommendations.? - INR yesterday:?1.0 - DVT PPx: Home warfarin, SCDs - Antibiotic PPx:?vancomycin and ancef: complete - Sandhu:?discontinued POD1 - Hemoglobin 8.7 this morning. IV Iron has previously been administered this admission - Ordered 2U PRBC transfusion 09/02/2021 - Anticipated Length of Stay/Disposition:?per primary, ok for discharge from ortho standpoint ? ? ? INTERVAL HPI: ? No acute events overnight. Pain controlled this morning. Doing well. Off oxygen currently. ? MEDICATIONS: Current Facility-Administered Medications Medication Dose Route Frequency - amiodarone 100 mg tab(s) (PACERONE) 100 mg ORAL DAILY - atorvastatin 20 mg tab(s) (LIPITOR) 20 mg ORAL AT BEDTIME - losartan 50 mg tab(s) (COZAAR) 50 mg ORAL DAILY - metoprolol succinate ER 12.5 mg tab(s) (TOPROL XL) 12.5 mg ORAL DAILY - amLODIPine 2.5 mg tab(s) (NORVASC) 2.5 mg ORAL DAILY - pantoprazole DR 40 mg tab(s) (PROTONIX) 40 mg ORAL DAILY (6 AM) - levothyroxine 100 mcg tab(s) (SYNTHROID) 100 mcg ORAL DAILY (6 AM) - sodium chloride 0.9 % (flush) 3-5 mL (BD POSIFLUSH) 3-5 mL INTRAVENOUS q 12 H - NaCl 0.9% iv flush bag 20 mL INTRAVENOUS PRN - aluminum-magnesium hydroxide-simethicone 200-200-20 mg/5 mL 30 mL (MAALOX,MYLANTA,MAG-AL PLUS) 30 mL ORAL q 6 H PRN - benzocaine-menthol 1 Lozenge (CEPACOL) 1 Lozenge MUCOUS MEMBRANE (TOPICAL MOUTH AND THROAT) q 2 H PRN - guaiFENesin 600 mg ER tab(s) (MUCINEX) 600 mg ORAL q 12 H PRN - melatonin 3 mg tab(s) 3 mg ORAL HS PRN - ondansetron (PF) 4 mg injection (ZOFRAN) 4 mg INTRAVENOUS q 6 H PRN - polyethylene glycol 3350 17 g packet (MIRALAX, GLYCOLAX) 17 g ORAL DAILY PRN - docusate sodium 100 mg cap(s) (COLACE) 100 mg ORAL BID PRN - polyvinyl alcohol-povidone 1.4-0.6 % 1 Drop (REFRESH) 1 Drop BOTH EYES PRN - saliva substitute combo no.9 15 mL (BIOTENE mouthwash) 15 mL MUCOUS MEMBRANE (TOPICAL MOUTH AND THROAT) TID PRN - sodium chloride 0.65 % 2 [place] (AYR, OCEAN) 2 [place] EACH NOSTRIL PRN - prochlorperazine 10 mg injection (COMPAZINE) 10 mg INTRAVENOUS q 6 H PRN - sodium chloride 0.9 % (flush) 3-5 mL (BD POSIFLUSH) 3-5 mL INTRAVENOUS q 12 H - senna 17.2 mg tab(s) (SENOKOT) 17.2 mg ORAL AT BEDTIME - acetaminophen 650 mg tab(s) (TYLENOL) 650 mg ORAL TID - oxyCODONE IR 5 mg tab(s) (ROXICODONE) 5 mg ORAL q 3 H PRN - morphine 2 mg injection 2 mg INTRAVENOUS q 2 H PRN - warfarin 5 mg tab(s) (COUMADIN) 5 mg ORAL DAILY - WARFARIN PHYSICAL EXAM: BP 129/70 Pulse 86 Temp 37 ?C (98.6 ?F) (Oral) Resp 17 Ht 172.7 cm (5' 8 ) Wt 75.9 kg (167 lb 5.3 oz) SpO2 94% BMI 25.44 kg/m? Body mass index is 25.44 kg/m?. General appearance:?NAD DATA: CBC: Recent Labs 09/03/21100 WBC 6.88 RBC 2.70* HB 8.7* HCT 27.8* PLT 174 MCV 103.0* MCH 32.2 MPV 8.8* BMP: Recent Labs 09/03/21100 NA 138 K 4.3 CHLOR 103 CO2 25 BUN 12 CREAT 0.87 GLUC 110* IMAGING: no new images SIGNATURE: Stevie Urrutia MD PAGER: [phone] DATE of SERVICE: 09/03/2021 TIME of SERVICE: 6:13 AM [facility] 09-02-2021 Note HNO ID: [id number] Author: Robin Recinos MD Service: Hospital Medicine Author Type: Physician Type: Progress Notes Filed: 09/02/2021 1:20 PM Note Text: DEPARTMENT OF HOSPITAL MEDICINE PROGRESS NOTE Hospital Medicine/Primary Attending: Robin Recinos MD NIGHT AND WEEKEND COVERAGE: [place] COVERAGE: After 7pm, please call cross cover pager #[phone] Subjective INTERVAL HPI: Pt seen and examined. MEDICATIONS: Reviewed Objective PHYSICAL EXAM: BP 99/60 Pulse 90 Temp (Src) 98.1 (Oral) Resp 18 Ht 5' 8 (1.73m) Wt 167 lb 5.3 oz (75.9kg) SpO2 94% BMI 25.45 kg/(m2). O2 Therapy: Room Air, Liters: 1 Physical Exam Performed GENERAL: Alert, no distress, cooperative NECK: Supple LUNGS: Lungs clear to auscultation CARDIAC: Normal S1 and S2; no rubs, murmurs, or gallops ABDOMEN: Abdomen soft, non-tender, BS normal, No masses or organomegaly EXTREMITIES: Extremities normal, no deformities, edema, clubbing or skin discoloration NEURO: Grossly normal cognition, motor function, and cranial nerves III-XII DATA: Diagnostic tests reviewed for today's visit: Most recent labs and imaging results. CBC, Coags, BMP, Mg, Phos Recent Labs 09/02/21 0652 09/02/21 0515 09/01/21 0517 08/31/21 0501 WBC -- 6.51 5.55 7.22 HB -- 6.7* 7.7* 8.4* HCT -- 22.0* 24.2* 26.5* PLT -- 182 125* 152 INR 1.0 -- 1.2 2.1* NA -- 139 -- 134* K -- 4.7 -- 4.3 CHLOR -- 106* -- 100 CO2 -- 26 -- 27 BUN -- 10 -- 18 CREAT -- 0.86 -- 1.01* GLUC -- 101* -- 110* CA -- 8.1* -- 8.0* Current Facility-Administered Medications Medication Dose Route Frequency - amiodarone 100 mg tab(s) (PACERONE) 100 mg ORAL DAILY - atorvastatin 20 mg tab(s) (LIPITOR) 20 mg ORAL AT BEDTIME - losartan 50 mg tab(s) (COZAAR) 50 mg ORAL DAILY - metoprolol succinate ER 12.5 mg tab(s) (TOPROL XL) 12.5 mg ORAL DAILY - amLODIPine 2.5 mg tab(s) (NORVASC) 2.5 mg ORAL DAILY - pantoprazole DR 40 mg tab(s) (PROTONIX) 40 mg ORAL DAILY (6 AM) - levothyroxine 100 mcg tab(s) (SYNTHROID) 100 mcg ORAL DAILY (6 AM) - sodium chloride 0.9 % (flush) 3-5 mL (BD POSIFLUSH) 3-5 mL INTRAVENOUS q 12 H - NaCl 0.9% iv flush bag 20 mL INTRAVENOUS PRN - aluminum-magnesium hydroxide-simethicone 200-200-20 mg/5 mL 30 mL (MAALOX,MYLANTA,MAG-AL PLUS) 30 mL ORAL q 6 H PRN - benzocaine-menthol 1 Lozenge (CEPACOL) 1 Lozenge MUCOUS MEMBRANE (TOPICAL MOUTH AND THROAT) q 2 H PRN - guaiFENesin 600 mg ER tab(s) (MUCINEX) 600 mg ORAL q 12 H PRN - melatonin 3 mg tab(s) 3 mg ORAL HS PRN - ondansetron (PF) 4 mg injection (ZOFRAN) 4 mg INTRAVENOUS q 6 H PRN - polyethylene glycol 3350 17 g packet (MIRALAX, GLYCOLAX) 17 g ORAL DAILY PRN - docusate sodium 100 mg cap(s) (COLACE) 100 mg ORAL BID PRN - polyvinyl alcohol-povidone 1.4-0.6 % 1 Drop (REFRESH) 1 Drop BOTH EYES PRN - saliva substitute combo no.9 15 mL (BIOTENE mouthwash) 15 mL MUCOUS MEMBRANE (TOPICAL MOUTH AND THROAT) TID PRN - sodium chloride 0.65 % 2 [place] (AYR, OCEAN) 2 [place] EACH NOSTRIL PRN - prochlorperazine 10 mg injection (COMPAZINE) 10 mg INTRAVENOUS q 6 H PRN - sodium chloride 0.9 % (flush) 3-5 mL (BD POSIFLUSH) 3-5 mL INTRAVENOUS q 12 H - senna 17.2 mg tab(s) (SENOKOT) 17.2 mg ORAL AT BEDTIME - acetaminophen 650 mg tab(s) (TYLENOL) 650 mg ORAL TID - oxyCODONE IR 5 mg tab(s) (ROXICODONE) 5 mg ORAL q 3 H PRN - morphine 2 mg injection 2 mg INTRAVENOUS q 2 H PRN - warfarin 3 mg tab(s) (COUMADIN) 3 mg ORAL DAILY - WARFARIN Assessment/Plan Principal Problem: # Acute left distal Femur fracture s/p retrograde IM Nailing of The left Periprosthetic placement POD #1 - Afebrile - Pain controlled - f/u on Ortho recs ? # Chronic hx of diastolic CHF , Atrial fibrillation, HTN - SAT's 93 % on 2 liters NC wean as tolerated while Keeping SAT's >90% - Holding Lasix and consider restarting if BP tolerates - Continue with remaining med regime. ? # Incidental Lung Nodule - Will need to follow up outpt for Chest CT ? # Macrocytic Anemia -Hb 6.7 today -2 units of blood transfusion ordered ? # Acute v/s Chronic renal failure stage Three - Resolved with GFR >60 ? # Hypothyroidism - Continue with Synthroid ? # Disposition - s/p PT and OT evaluation - Pending placement -Anticipate discharge in next 24 hours Medication and Non-Pharmacologic VTE Prophylaxis/Anticoagulants Anticoagulant AND Antiplatelet Medications (From admission, onward) Start Dose Route Frequency Last Action Ordered Stop 09/01/21 1700 warfarin 3 mg tab(s) (COUMADIN) 3 mg ORAL DAILY - WARFARIN Given, 09/01 1634 09/01/21 0649 -- 08/29/21 1230 vte pharmacologic prophylaxis contraindicated (tx,oh) 08/29/21 1230 pneumatic compression stockings (tx,nm) 08/29/21 1230 activity - mobilize patient (tx,nm) 08/29/21 0245 vte pharmacologic prophylaxis contraindicated (tx,nm) 08/29/21 0245 vte non-pharmacologic prophylaxis contraindicated (tx,nm) 08/29/21 0245 activity - mobil (more content not included)... [facility] 09-02-2021 Note HNO ID: [id number] Author: Juana Chua RN Service: Care Management Author Type: Registered Nurse Type: Care Mgt Progress Note Filed: 09/02/2021 11:55 AM Note Text: CARE MANAGEMENT PROGRESS NOTE SERVICE DATE: 09/02/2021 SERVICE TIME: 1154 LOS: 4 days Notified Vladimir transitional care transfer held today. Receiving PRBC SIGNATURE: Juana Chua RN PATIENT NAME: Ana Maria Avalos DATE: September 02, 2021 TIME: 11:54 AM PAGER/CONTACT #: [phone] [facility] 09-02-2021 Note HNO ID: [id number] Author: Tomás Chacko MD Service: Orthopaedic Surgery Author Type: Physician Type: Progress Notes Filed: 09/02/2021 2:02 PM Note Text: I evaluated the patient and personally participated in the [place] components. I agree with the resident's findings and plan with the following revisions and/or additions: Doing well. Pain controlled. Looking forward to discharge to rehab. Acute on chronic blood loss anemia. INR 1.2. Resume ususal coumadin doing. Transfuse for symptomatic anemia. Leg not excessively swollen and wound stable. Signature: Tomás Chacko MD Service Date: 09/02/2021 Service Time: 2:00 PM Orthopaedic INPATIENT PROGRESS NOTE Assessment: 86 year old female?POD3?status-post?retrograde IM nailing of the left periprosthetic distal femur fracture. ? - Medical management per primary - Pain control. - Weight Bearing Status:?Partial WB LLE <60?lbs; WBAT RLE (post-op shoe ordered) - Dressing(s):?Maintain super riky, aquacel and tegaderms dressing LLE x 7-10 days: will change today - PT/OT: Evaluation AND?recommendations.? - INR yesterday: 1.2 - DVT PPx: SCDs.?Hold Warfarin today due to Hg 6.7 - Antibiotic PPx:?vancomycin and ancef: complete - Sandhu:?discontinued POD1 - Hemoglobin 6.7 this morning. IV Iron has previously been administered this admission - Ordered 2U PRBC transfusion - F/U INR/Hg labs - Anticipated Length of Stay/Disposition:?per primary. ? ? ? INTERVAL HPI: ? No acute events overnight. Pain controlled. Off oxygen currently. Denies SOB/CP.? MEDICATIONS: Current Facility-Administered Medications Medication Dose Route Frequency - amiodarone 100 mg tab(s) (PACERONE) 100 mg ORAL DAILY - atorvastatin 20 mg tab(s) (LIPITOR) 20 mg ORAL AT BEDTIME - losartan 50 mg tab(s) (COZAAR) 50 mg ORAL DAILY - metoprolol succinate ER 12.5 mg tab(s) (TOPROL XL) 12.5 mg ORAL DAILY - amLODIPine 2.5 mg tab(s) (NORVASC) 2.5 mg ORAL DAILY - pantoprazole DR 40 mg tab(s) (PROTONIX) 40 mg ORAL DAILY (6 AM) - levothyroxine 100 mcg tab(s) (SYNTHROID) 100 mcg ORAL DAILY (6 AM) - sodium chloride 0.9 % (flush) 3-5 mL (BD POSIFLUSH) 3-5 mL INTRAVENOUS q 12 H - NaCl 0.9% iv flush bag 20 mL INTRAVENOUS PRN - aluminum-magnesium hydroxide-simethicone 200-200-20 mg/5 mL 30 mL (MAALOX,MYLANTA,MAG-AL PLUS) 30 mL ORAL q 6 H PRN - benzocaine-menthol 1 Lozenge (CEPACOL) 1 Lozenge MUCOUS MEMBRANE (TOPICAL MOUTH AND THROAT) q 2 H PRN - guaiFENesin 600 mg ER tab(s) (MUCINEX) 600 mg ORAL q 12 H PRN - melatonin 3 mg tab(s) 3 mg ORAL HS PRN - ondansetron (PF) 4 mg injection (ZOFRAN) 4 mg INTRAVENOUS q 6 H PRN - polyethylene glycol 3350 17 g packet (MIRALAX, GLYCOLAX) 17 g ORAL DAILY PRN - docusate sodium 100 mg cap(s) (COLACE) 100 mg ORAL BID PRN - polyvinyl alcohol-povidone 1.4-0.6 % 1 Drop (REFRESH) 1 Drop BOTH EYES PRN - saliva substitute combo no.9 15 mL (BIOTENE mouthwash) 15 mL MUCOUS MEMBRANE (TOPICAL MOUTH AND THROAT) TID PRN - sodium chloride 0.65 % 2 [place] (AYR, OCEAN) 2 [place] EACH NOSTRIL PRN - prochlorperazine 10 mg injection (COMPAZINE) 10 mg INTRAVENOUS q 6 H PRN - sodium chloride 0.9 % (flush) 3-5 mL (BD POSIFLUSH) 3-5 mL INTRAVENOUS q 12 H - senna 17.2 mg tab(s) (SENOKOT) 17.2 mg ORAL AT BEDTIME - acetaminophen 650 mg tab(s) (TYLENOL) 650 mg ORAL TID - oxyCODONE IR 5 mg tab(s) (ROXICODONE) 5 mg ORAL q 3 H PRN - morphine 2 mg injection 2 mg INTRAVENOUS q 2 H PRN - warfarin 3 mg tab(s) (COUMADIN) 3 mg ORAL DAILY - WARFARIN PHYSICAL EXAM: BP 111/67 Pulse 89 Temp 36.5 ?C (97.7 ?F) (Oral) Resp 16 Ht 172.7 cm (5' 8 ) Wt 75.9 kg (167 lb 5.3 oz) SpO2 92% BMI 25.44 kg/m? Body mass index is 25.44 kg/m?. General appearance:?NAD LLE: Dressing c/d/i +SILT s/s/sp/dp/t +motor df/pf/ehl +2 dp/pt pulses ? RLE:?no open wounds/lacerations +SILT s/s/sp/dp/t +motor df/pf/ehl +2 dp/pt pulses DATA: CBC: Recent Labs 09/02/21 0515 WBC 6.51 RBC 2.03* HB 6.7* HCT 22.0* PLT 182 MCV 108.4* MCH 33.0 MPV 8.9* BMP: Recent Labs 09/02/21 0515 NA 139 K 4.7 CHLOR 106* CO2 26 BUN 10 CREAT 0.86 GLUC 101* IMAGING: no new images SIGNATURE: Stevie Urrutia MD PAGER: [phone] DATE of SERVICE: 09/02/2021 TIME of SERVICE: 6:02 AM [facility] 09-01-2021 Note HNO ID: [id number] Author: Anjelica Holly RN Service: Nursing Author Type: Registered Nurse Type: Progress Notes Filed: 09/01/2021 1:36 PM Note Text: RN discussed discharge plan with Dr. Recinos. Per physician keep patient one more night to monitor BP, attempt to wean oxygen. [facility] 09-01-2021 Note HNO ID: [id number] Author: Robin Recinos MD Service: Hospital Medicine Author Type: Physician Type: Progress Notes Filed: 09/01/2021 1:21 PM Note Text: DEPARTMENT OF HOSPITAL MEDICINE PROGRESS NOTE Hospital Medicine/Primary Attending: Robin Recinos MD NIGHT AND WEEKEND COVERAGE: [place] COVERAGE: After 7pm, please call cross cover pager #[phone] Subjective INTERVAL HPI: Pt seen and examined. MEDICATIONS: Reviewed Objective PHYSICAL EXAM: BP 95/50 Pulse 87 Temp (Src) 98.4 (Oral) Resp 16 Ht 5' 8 (1.73m) Wt 166 lb 10.7 oz (75.6kg) SpO2 96% BMI 25.35 kg/(m2). O2 Therapy: Nasal Cannula, Liters: 2 Physical Exam Performed GENERAL: Alert, no distress, cooperative NECK: Supple LUNGS: Lungs clear to auscultation CARDIAC: Normal S1 and S2; no rubs, murmurs, or gallops ABDOMEN: Abdomen soft, non-tender, BS normal, No masses or organomegaly EXTREMITIES: Extremities normal, no deformities, edema, clubbing or skin discoloration NEURO: Grossly normal cognition, motor function, and cranial nerves III-XII DATA: Diagnostic tests reviewed for today's visit: Most recent labs and imaging results. CBC, Coags, BMP, Mg, Phos Recent Labs 09/01/21 0517 08/31/21 0501 08/30/21 1234 08/30/21 1233 08/30/21 0047 08/30/21 0046 WBC 5.55 7.22 -- 11.04* -- 9.89 HB 7.7* 8.4* -- 9.5* -- 9.0* HCT 24.2* 26.5* -- 29.9* -- 28.6* PLT 125* 152 -- 185 -- 151 INR 1.2 2.1* -- -- 2.9* -- NA -- 134* 133* -- -- 134* K -- 4.3 4.7 -- -- 5.0 CHLOR -- 100 97 -- -- 100 CO2 -- 27 24 -- -- 25 BUN -- 18 23* -- -- 23* CREAT -- 1.01* 1.38* -- -- 1.26* GLUC -- 110* 156* -- -- 150* CA -- 8.0* 8.3* -- -- 7.8* MG -- -- 2.5* -- -- -- Current Facility-Administered Medications Medication Dose Route Frequency - amiodarone 100 mg tab(s) (PACERONE) 100 mg ORAL DAILY - atorvastatin 20 mg tab(s) (LIPITOR) 20 mg ORAL AT BEDTIME - losartan 50 mg tab(s) (COZAAR) 50 mg ORAL DAILY - metoprolol succinate ER 12.5 mg tab(s) (TOPROL XL) 12.5 mg ORAL DAILY - amLODIPine 2.5 mg tab(s) (NORVASC) 2.5 mg ORAL DAILY - pantoprazole DR 40 mg tab(s) (PROTONIX) 40 mg ORAL DAILY (6 AM) - levothyroxine 100 mcg tab(s) (SYNTHROID) 100 mcg ORAL DAILY (6 AM) - sodium chloride 0.9 % (flush) 3-5 mL (BD POSIFLUSH) 3-5 mL INTRAVENOUS q 12 H - NaCl 0.9% iv flush bag 20 mL INTRAVENOUS PRN - aluminum-magnesium hydroxide-simethicone 200-200-20 mg/5 mL 30 mL (MAALOX,MYLANTA,MAG-AL PLUS) 30 mL ORAL q 6 H PRN - benzocaine-menthol 1 Lozenge (CEPACOL) 1 Lozenge MUCOUS MEMBRANE (TOPICAL MOUTH AND THROAT) q 2 H PRN - guaiFENesin 600 mg ER tab(s) (MUCINEX) 600 mg ORAL q 12 H PRN - melatonin 3 mg tab(s) 3 mg ORAL HS PRN - ondansetron (PF) 4 mg injection (ZOFRAN) 4 mg INTRAVENOUS q 6 H PRN - polyethylene glycol 3350 17 g packet (MIRALAX, GLYCOLAX) 17 g ORAL DAILY PRN - docusate sodium 100 mg cap(s) (COLACE) 100 mg ORAL BID PRN - polyvinyl alcohol-povidone 1.4-0.6 % 1 Drop (REFRESH) 1 Drop BOTH EYES PRN - saliva substitute combo no.9 15 mL (BIOTENE mouthwash) 15 mL MUCOUS MEMBRANE (TOPICAL MOUTH AND THROAT) TID PRN - sodium chloride 0.65 % 2 [place] (AYR, OCEAN) 2 [place] EACH NOSTRIL PRN - prochlorperazine 10 mg injection (COMPAZINE) 10 mg INTRAVENOUS q 6 H PRN - sodium chloride 0.9 % (flush) 3-5 mL (BD POSIFLUSH) 3-5 mL INTRAVENOUS q 12 H - senna 17.2 mg tab(s) (SENOKOT) 17.2 mg ORAL AT BEDTIME - acetaminophen 650 mg tab(s) (TYLENOL) 650 mg ORAL TID - oxyCODONE IR 5 mg tab(s) (ROXICODONE) 5 mg ORAL q 3 H PRN - morphine 2 mg injection 2 mg INTRAVENOUS q 2 H PRN - warfarin 3 mg tab(s) (COUMADIN) 3 mg ORAL DAILY - WARFARIN - ferric gluconate 125 mg in NaCl 0.9% 100 mL (FERRLECIT) 125 mg INTRAVENOUS DAILY AT 6 PM Assessment/Plan Principal Problem: # Acute left distal Femur fracture s/p retrograde IM Nailing of The left Periprosthetic placement POD #1 - Afebrile - Pain controlled - f/u on Ortho recs ? # Chronic hx of diastolic CHF , Atrial fibrillation, HTN - SAT's 93 % on 2 liters NC wean as tolerated while Keeping SAT's >90% - Holding Lasix and consider restarting if BP tolerates - Continue with remaining med regime. ? # Incidental Lung Nodule - Will need to follow up outpt for Chest CT ? # Macrocytic Anemia With H/H of 8.4/26.4 ? # Acute v/s Chronic renal failure stage Three - Resolved with GFR >60 ? # Hypothyroidism - Continue with Synthroid ? # Disposition - s/p PT and OT evaluation - Pending placement Medication and Non-Pharmacologic VTE Prophylaxis/Anticoagulants Anticoagulant AND Antiplatelet Medications (From admission, onward) Start Dose Route Frequency Last Action Ordered Stop 09/01/21 1700 warfarin 3 mg tab(s) (COUMADIN) 3 mg ORAL DAILY - WARFARIN Ordered 09/01/21 0649 -- 08/29/21 1230 vte pharmacologic prophylaxis contraindicated (tx,nm) 08/29/21 1230 pneumatic compression stockings (tx,nm) 08/29/21 1230 activity - mobilize patient (tx,nm) (more content not included)... [facility] 09-01-2021 Note HNO ID: [id number] Author: Anjelica Avni, RN Service: Nursing Author Type: Registered Nurse Type: Progress Notes Filed: 09/01/2021 1:13 PM Note Text: RN notified Dr. Recinos of pt BP 98/54, with current BP meds due. Per physician hold metoprolol, norvasc, and losartan. Okay to give amiodorone. Will continue to monitor. [facility] 09-01-2021 Note HNO ID: [id number] Author: Stevie Urrutia MD Service: Orthopaedic Surgery Author Type: Resident Type: Progress Notes Filed: 09/01/2021 7:31 AM Note Text: Orthopaedic INPATIENT PROGRESS NOTE Assessment: 86 year old female?POD2?status-post?retrograde IM nailing of the left periprosthetic distal femur fracture. ? - Medical management per primary - Pain control. - Weight Bearing Status:?Partial WB LLE <60?lbs; WBAT RLE (post-op shoe ordered) - Dressing(s):?Maintain super riky, aquacel and tegaderms dressing LLE x 7-10 days: will change today - PT/OT: Evaluation AND?recommendations.? - INR today: 1.2 - DVT PPx: SCDs.?Ok to resume home Coumadin beginning today from ortho standpoint - Antibiotic PPx:?vancomycin and ancef: complete - Sandhu: discontinued POD1 - Hemoglobin 7.7 this morning. Ordered IV Iron - Anticipated Length of Stay/Disposition:?per primary. ? ? ? INTERVAL HPI: ? No acute events overnight. Pain controlled. Currently on 3L NC. Denies SOB/CP. MEDICATIONS: Current Facility-Administered Medications Medication Dose Route Frequency - amiodarone 100 mg tab(s) (PACERONE) 100 mg ORAL DAILY - atorvastatin 20 mg tab(s) (LIPITOR) 20 mg ORAL AT BEDTIME - losartan 50 mg tab(s) (COZAAR) 50 mg ORAL DAILY - metoprolol succinate ER 12.5 mg tab(s) (TOPROL XL) 12.5 mg ORAL DAILY - amLODIPine 2.5 mg tab(s) (NORVASC) 2.5 mg ORAL DAILY - pantoprazole DR 40 mg tab(s) (PROTONIX) 40 mg ORAL DAILY (6 AM) - levothyroxine 100 mcg tab(s) (SYNTHROID) 100 mcg ORAL DAILY (6 AM) - sodium chloride 0.9 % (flush) 3-5 mL (BD POSIFLUSH) 3-5 mL INTRAVENOUS q 12 H - NaCl 0.9% iv flush bag 20 mL INTRAVENOUS PRN - aluminum-magnesium hydroxide-simethicone 200-200-20 mg/5 mL 30 mL (MAALOX,MYLANTA,MAG-AL PLUS) 30 mL ORAL q 6 H PRN - benzocaine-menthol 1 Lozenge (CEPACOL) 1 Lozenge MUCOUS MEMBRANE (TOPICAL MOUTH AND THROAT) q 2 H PRN - guaiFENesin 600 mg ER tab(s) (MUCINEX) 600 mg ORAL q 12 H PRN - melatonin 3 mg tab(s) 3 mg ORAL HS PRN - ondansetron (PF) 4 mg injection (ZOFRAN) 4 mg INTRAVENOUS q 6 H PRN - polyethylene glycol 3350 17 g packet (MIRALAX, GLYCOLAX) 17 g ORAL DAILY PRN - docusate sodium 100 mg cap(s) (COLACE) 100 mg ORAL BID PRN - polyvinyl alcohol-povidone 1.4-0.6 % 1 Drop (REFRESH) 1 Drop BOTH EYES PRN - saliva substitute combo no.9 15 mL (BIOTENE mouthwash) 15 mL MUCOUS MEMBRANE (TOPICAL MOUTH AND THROAT) TID PRN - sodium chloride 0.65 % 2 [place] (AYR, OCEAN) 2 [place] EACH NOSTRIL PRN - prochlorperazine 10 mg injection (COMPAZINE) 10 mg INTRAVENOUS q 6 H PRN - sodium chloride 0.9 % (flush) 3-5 mL (BD POSIFLUSH) 3-5 mL INTRAVENOUS q 12 H - senna 17.2 mg tab(s) (SENOKOT) 17.2 mg ORAL AT BEDTIME - acetaminophen 650 mg tab(s) (TYLENOL) 650 mg ORAL TID - oxyCODONE IR 5 mg tab(s) (ROXICODONE) 5 mg ORAL q 3 H PRN - morphine 2 mg injection 2 mg INTRAVENOUS q 2 H PRN PHYSICAL EXAM: BP 118/63 Pulse 81 Temp 37 ?C (98.6 ?F) (Axillary) Resp 16 Ht 172.7 cm (5' 8 ) Wt 75.6 kg (166 lb 10.7 oz) SpO2 98% BMI 25.34 kg/m? Body mass index is 25.34 kg/m?. General appearance:?NAD LLE: Dressing c/d/i +SILT s/s/sp/dp/t +motor df/pf/ehl +2 dp/pt pulses ? RLE:?no open wounds/lacerations +SILT s/s/sp/dp/t +motor df/pf/ehl +2 dp/pt pulses ? DATA: CBC: Recent Labs 09/01/21 0517 WBC 5.55 RBC 2.25* HB 7.7* HCT 24.2* PLT 125* MCV 107.6* MCH 34.2* MPV 8.9* BMP: No results for input(s): NA, K, CHLOR, CO2, BUN, CREAT, GLUC in the last 24 hours. IMAGING: no new images SIGNATURE: Stevie Urrutia MD PAGER: [phone] DATE of SERVICE: 09/01/2021 TIME of SERVICE: 6:44 AM [facility] 08-31-2021 Note HNO ID: [id number] Author: Anjelica Holly RN Service: Nursing Author Type: Registered Nurse Type: Progress Notes Filed: 08/31/2021 2:04 PM Note Text: RN spoke with Shahla Yan regarding patient unable to void on her own. RN bladder scan and per physician if greater than 400 mL, okay to straight cath x 1. Verbal orders obtained. [facility] 08-31-2021 Note HNO ID: [id number] Author: Anjelica Holly RN Service: Nursing Author Type: Registered Nurse Type: Progress Notes Filed: 08/31/2021 12:04 PM Note Text: RN spoke with Dr. Gale regarding patient morning cardiac/ antihypertensive medications after episode of hypotension this morning, and current vitals reported to physician. Per physician, okay to hold norvasc and losartan, and to administer metoprolol and amiodorone. Will continue to monitor. [facility] 08-31-2021 Note HNO ID: [id number] Author: Anjelica Holly RN Service: Nursing Author Type: Registered Nurse Type: Progress Notes Filed: 08/31/2021 10:58 AM Note Text: RN spoke with [facility] in [place] to verify coumadin dosage- see prior to admission meds. RN also called [facility] in [place], and per pharmacy patient has not filled scripts there recently. [facility] 08-31-2021 Note HNO ID: [id number] Author: Ghada Gale MD Service: Hospital Medicine Author Type: Physician Type: Progress Notes Filed: 08/31/2021 11:22 AM Note Text: INPATIENT PROGRESS NOTE SERVICE DATE: 08/31/2021 SERVICE TIME: 10:44 AM PRIMARY SERVICE: Hospitalist Subjective CHIEF COMPLAINT: Leg pain INTERVAL HPI: Pt states pain is controlled and no issues over night. Current Facility-Administered Medications Medication Dose Route Frequency - amiodarone 100 mg tab(s) (PACERONE) 100 mg ORAL DAILY - atorvastatin 20 mg tab(s) (LIPITOR) 20 mg ORAL AT BEDTIME - losartan 50 mg tab(s) (COZAAR) 50 mg ORAL DAILY - metoprolol succinate ER 12.5 mg tab(s) (TOPROL XL) 12.5 mg ORAL DAILY - amLODIPine 2.5 mg tab(s) (NORVASC) 2.5 mg ORAL DAILY - pantoprazole DR 40 mg tab(s) (PROTONIX) 40 mg ORAL DAILY (6 AM) - levothyroxine 100 mcg tab(s) (SYNTHROID) 100 mcg ORAL DAILY (6 AM) - sodium chloride 0.9 % (flush) 3-5 mL (BD POSIFLUSH) 3-5 mL INTRAVENOUS q 12 H - NaCl 0.9% iv flush bag 20 mL INTRAVENOUS PRN - aluminum-magnesium hydroxide-simethicone 200-200-20 mg/5 mL 30 mL (MAALOX,MYLANTA,MAG-AL PLUS) 30 mL ORAL q 6 H PRN - benzocaine-menthol 1 Lozenge (CEPACOL) 1 [place]oz[place] MUCOUS MEMBRANE (TOPICAL MOUTH AND THROAT) q 2 H PRN - guaiFENesin 600 mg ER tab(s) (MUCINEX) 600 mg ORAL q 12 H PRN - melatonin 3 mg tab(s) 3 mg ORAL HS PRN - ondansetron (PF) 4 mg injection (ZOFRAN) 4 mg INTRAVENOUS q 6 H PRN - polyethylene glycol 3350 17 g packet (MIRALAX, GLYCOLAX) 17 g ORAL DAILY PRN - docusate sodium 100 mg cap(s) (COLACE) 100 mg ORAL BID PRN - polyvinyl alcohol-povidone 1.4-0.6 % 1 Drop (REFRESH) 1 Drop BOTH EYES PRN - saliva substitute combo no.9 15 mL (BIOTENE mouthwash) 15 mL MUCOUS MEMBRANE (TOPICAL MOUTH AND THROAT) TID PRN - sodium chloride 0.65 % 2 [place] (AYR, OCEAN) 2 [place] EACH NOSTRIL PRN - prochlorperazine 10 mg injection (COMPAZINE) 10 mg INTRAVENOUS q 6 H PRN - sodium chloride 0.9 % (flush) 3-5 mL (BD POSIFLUSH) 3-5 mL INTRAVENOUS q 12 H - senna 17.2 mg tab(s) (SENOKOT) 17.2 mg ORAL AT BEDTIME - acetaminophen 650 mg tab(s) (TYLENOL) 650 mg ORAL TID - oxyCODONE IR 5 mg tab(s) (ROXICODONE) 5 mg ORAL q 3 H PRN - morphine 2 mg injection 2 mg INTRAVENOUS q 2 H PRN ROS: All remaining ROS >12 were negative Objective PHYSICAL EXAM: BP 109/50 Pulse 105 Temp (Src) 98.4 (Oral) Resp 18 Ht 5' 8 (1.73m) Wt 163 lb 9.3 oz (74.2kg) SpO2 93% BMI 24.88 kg/(m2). O2 Therapy: Nasal Cannula, Liters: 2 Physical Exam Performed GENERAL: Alert, no distress, cooperative OROPHARYNX: Lips, mucosa, and tongue normal. Teeth and gums normal. Oropharynx normal. NECK: No jugulovenous distention, No carotid bruits, Carotid pulse normal contour, Supple LUNGS: Lungs clear to auscultation, Good diaphragmatic excursion CARDIAC: Normal S1 and S2; no rubs, murmurs, or gallops ABDOMEN: Abdomen soft, non-tender, BS normal, No masses or organomegaly EXTREMITIES: Extremities normal, no deformities, edema, clubbing or skin discoloration. Good capillary refill., No ulcers DATA: Diagnostic tests reviewed for today's visit: Most recent labs and imaging results. Assessment/Plan 86 y/o female Acute left distal Femur fracture s/p retrograde IM Nailing of The left Periprosthetic placement POD #1 - Afebrile - Pain controlled - f/u on Ortho recs Chronic hx of diastolic CHF , Atrial fibrillation, HTN - SAT's 93 % on 2 liters NC wean as tolerated while Keeping SAT's >90% - Holding Lasix and consider restarting if BP tolerates - Continue with remaining med regime. Incidental Lung Nodule - Will need to follow up outpt for Chest CT FEN - Mild Hyponatremia with Sodium of 134 and monitor Heme - Macrocytic Anemia With H/H of 8.4/26.4 Acute v/s Chronic renal failure stage Three - Resolved with GFR >60 Hypothyroidism - Continue with Synthroid Disposition - s/p PT and OT evaluation - Pending placement on Thursday at [facility]. [facility]. Medication and Non-Pharmacologic VTE Prophylaxis/Anticoagulants 08/29/21 1230 vte pharmacologic prophylaxis contraindicated ([place], [place]) 08/29/21 1230 pneumatic compression stockings ([place]) 08/29/21 1230 activity - mobilize patient ([place] 08/29/21 0245 vte pharmacologic prophylaxis contraindicated ([place] 08/29/21 0245 vte non-pharmacologic prophylaxis contraindicated ([place]) 08/29/21 0245 activity - mobilize patient ([place]) VTE Prophylaxis: VTE prophylaxis appropriate SIGNATURE: Ghada Gale MD PATIENT NAME: Ana Maria Avalos DATE: August 31, 2021 TIME: 10:43 AM [facility] 08-31-2021 Note HNO ID: [id number] Author: Stevie Urrutia MD Service: Orthopaedic Surgery Author Type: Resident Type: Progress Notes Filed: 08/31/2021 7:34 AM Note Text: Orthopaedic INPATIENT PROGRESS NOTE Assessment: 86 year old female POD1 status-post?retrograde IM nailing of the left periprosthetic distal femur fracture. ? - Medical management per primary - Pain control. - Weight Bearing Status:?Partial WB LLE <60 lbs; WBAT RLE (post-op shoe ordered) - Dressing(s):?Maintain super riky, aquacel and tegaderms dressing LLE x 7-10 days - PT/OT: Evaluation AND?recommendations. - INR today: 2.1 - DVT PPx: SCDs.?Ok to resume home Coumadin beginning today from ortho standpoint - Antibiotic PPx:?vancomycin and ancef: complete - Sandhu: discontinued POD1 - Anticipated Length of Stay/Disposition:?per primary. ? ? ? INTERVAL HPI: ? No acute events overnight. Pain controlled. Currently on 2L NC. Denies SOB/CP. Emergency response team called yesterday for SVTs. MEDICATIONS: Current Facility-Administered Medications Medication Dose Route Frequency - amiodarone 100 mg tab(s) (PACERONE) 100 mg ORAL DAILY - atorvastatin 20 mg tab(s) (LIPITOR) 20 mg ORAL AT BEDTIME - losartan 50 mg tab(s) (COZAAR) 50 mg ORAL DAILY - metoprolol succinate ER 12.5 mg tab(s) (TOPROL XL) 12.5 mg ORAL DAILY - amLODIPine 2.5 mg tab(s) (NORVASC) 2.5 mg ORAL DAILY - pantoprazole DR 40 mg tab(s) (PROTONIX) 40 mg ORAL DAILY (6 AM) - levothyroxine 100 mcg tab(s) (SYNTHROID) 100 mcg ORAL DAILY (6 AM) - sodium chloride 0.9 % (flush) 3-5 mL (BD POSIFLUSH) 3-5 mL INTRAVENOUS q 12 H - NaCl 0.9% iv flush bag 20 mL INTRAVENOUS PRN - aluminum-magnesium hydroxide-simethicone 200-200-20 mg/5 mL 30 mL (MAALOX,MYLANTA,MAG-AL PLUS) 30 mL ORAL q 6 H PRN - benzocaine-menthol 1 Lozenge (CEPACOL) 1 Lozenge MUCOUS MEMBRANE (TOPICAL MOUTH AND THROAT) q 2 H PRN - guaiFENesin 600 mg ER tab(s) (MUCINEX) 600 mg ORAL q 12 H PRN - melatonin 3 mg tab(s) 3 mg ORAL HS PRN - ondansetron (PF) 4 mg injection (ZOFRAN) 4 mg INTRAVENOUS q 6 H PRN - polyethylene glycol 3350 17 g packet (MIRALAX, GLYCOLAX) 17 g ORAL DAILY PRN - docusate sodium 100 mg cap(s) (COLACE) 100 mg ORAL BID PRN - polyvinyl alcohol-povidone 1.4-0.6 % 1 Drop (REFRESH) 1 Drop BOTH EYES PRN - saliva substitute combo no.9 15 mL (BIOTENE mouthwash) 15 mL MUCOUS MEMBRANE (TOPICAL MOUTH AND THROAT) TID PRN - sodium chloride 0.65 % 2 [place] (AYR, OCEAN) 2 [place] EACH NOSTRIL PRN - prochlorperazine 10 mg injection (COMPAZINE) 10 mg INTRAVENOUS q 6 H PRN - sodium chloride 0.9 % (flush) 3-5 mL (BD POSIFLUSH) 3-5 mL INTRAVENOUS q 12 H - senna 17.2 mg tab(s) (SENOKOT) 17.2 mg ORAL AT BEDTIME - acetaminophen 650 mg tab(s) (TYLENOL) 650 mg ORAL TID - oxyCODONE IR 5 mg tab(s) (ROXICODONE) 5 mg ORAL q 3 H PRN - morphine 2 mg injection 2 mg INTRAVENOUS q 2 H PRN PHYSICAL EXAM: BP 109/50 Pulse 105 Temp 36.9 ?C (98.4 ?F) (Oral) Resp 18 Ht 172.7 cm (5' 8 ) Wt 74.2 kg (163 lb 9.3 oz) SpO2 93% BMI 24.87 kg/m? Body mass index is 24.87 kg/m?. General appearance: NAD LLE: Dressing c/d/i +SILT s/s/sp/dp/t +motor df/pf/ehl +2 dp/pt pulses ? RLE: no open wounds/lacerations +SILT s/s/sp/dp/t +motor df/pf/ehl +2 dp/pt pulses DATA: CBC: Recent Labs 08/31/21 0501 WBC 7.22 RBC 2.49* HB 8.4* HCT 26.5* PLT 152 MCV 106.4* MCH 33.7 MPV 9.0 BMP: Recent Labs 08/31/21 0501 NA 134* K 4.3 CHLOR 100 CO2 27 BUN 18 CREAT 1.01* GLUC 110* IMAGING: no new images SIGNATURE: Stevie Urrutia MD PAGER: [phone] DATE of SERVICE: 08/31/2021 TIME of SERVICE: 6:33 AM [facility] 08-30-2021 Note HNO ID: [id number] Author: Juana Chua RN Service: Care Management Author Type: Registered Nurse Type: Care Mgt Progress Note Filed: 08/30/2021 5:10 PM Note Text: CARE MANAGEMENT PROGRESS NOTE SERVICE DATE: 08/30/2021 SERVICE TIME: 170 LOS: 1 day [facility]. Will need expedited covid test within 72 hours of discharge. Patient updated SIGNATURE: Juana Chua RN PATIENT NAME: Ana Maria Avalos DATE: August 30, 2021 TIME: 5:09 PM PAGER/CONTACT #: [phone] [facility] 08-30-2021 Note HNO ID: [id number] Author: Eula Mast [email or web address].[email or web address] Service: Critical Care Author Type: Nurse Practitioner Type: Progress Notes Filed: 08/30/2021 1:06 PM Note Text: EMERGENCY RESPONSE TEAM Rapid Response Date of MET Page: August 30, 2021 Time of MET Page: 12:18 Requesting Provider: RN on Floor SUMMARY DIAGNOSIS, ASSESSMENT and RECOMMENDATIONS Rapid response was called for ? SVT on telemetry. Per RN, patient was just given some bad news and became very anxious and upset. All of a sudden her HR >170s and alarming on telemetry. On arrival, patient sitting up in chair in no distress. SBP 120s HR 160-170s appeared to be SVT on telemetry, which was confirmed with beside EKG. 5mg Lopressor IV x1 was given. HR lowered to HR 120-130s sinus tachycardia. SBP 100s.. Denies any CP, SOB or palpitations. Hx paroxsymal Afib on Coumadin but states she actually was in NSR prior to hospitalization. BMP from 0046 significant K 5.0 /Scr 1.26 Plan -BMP/CBC/ Mag/ Troponin -STAT EKG, done -500ml LRB IV x1 -Primary already ordered LR @ 100ml/hr maintenance will order end time for tonight at 23:00 (1L) to avoid hypervolemia. -Maintain telemetry Status: Stable PLAN, DISPOSITION and OUTCOME Responded to therapy, remains on current unit under care of: [facility] History of Present Illness: This is a 86 year old female who was admitted to the hospital for femur Fx s/p ORIF on 08/29/2021. PRIMARY REASON FOR CALL Cardiac: Heart rate <40 or >140 with new symptoms Any Heart Rate >150 PAST MEDICAL / SURGICAL HISTORY PAST MEDICAL HISTORY Diagnosis Date - Ankle fracture October trimalleolar fracture right ankle (/ suregery) - Arthritis - Atrial fibrillation (HCC) INR goal 2.5-3.5 - Degeneration of intervertebral disc, site unspecified DDD; had sciatica in her 40's - Disorder of bone and cartilage, unspecified osteopenia - Diverticulosis of colon (without mention of hemorrhage) - Essential hypertension, benign - History of total left knee replacement - Nontoxic multinodular goiter - Pure hypercholesterolemia - Unspecified hypothyroidism , PAST SURGICAL HISTORY Procedure Laterality Date - BX BREAST PERC VACUUM/ROTN 12/27/2009 - CARDIOVERSION 03/03/2011 In [place] - OPEN TX FEMORAL SUPRACONDYLAR FRACTURE W/XTN Left 08/29/2021 - PAST SURGICAL HISTORY OF right ankle ORIF for triamalleolar fracture - S $ KNEE TOTAL ARTHR PRASHANTH Left 05/07/2015 [facility] Marisa. LTK replacement arthroplasty - SIGMOIDOSCOPY FLX DX W/COLLJ SPEC BR/WA IF PFRMD 08/03/1999 Sigmoidoscopy MEDICATIONS Current Facility-Administered Medications Medication Dose Route Frequency - lactated ringers 500 mL iv bolus 500 mL INTRAVENOUS ONCE - amiodarone 100 mg tab(s) (PACERONE) 100 mg ORAL DAILY - atorvastatin 20 mg tab(s) (LIPITOR) 20 mg ORAL AT BEDTIME - losartan 50 mg tab(s) (COZAAR) 50 mg ORAL DAILY - metoprolol succinate ER 12.5 mg tab(s) (TOPROL XL) 12.5 mg ORAL DAILY - amLODIPine 2.5 mg tab(s) (NORVASC) 2.5 mg ORAL DAILY - pantoprazole DR 40 mg tab(s) (PROTONIX) 40 mg ORAL DAILY (6 AM) - levothyroxine 100 mcg tab(s) (SYNTHROID) 100 mcg ORAL DAILY (6 AM) - sodium chloride 0.9 % (flush) 3-5 mL (BD POSIFLUSH) 3-5 mL INTRAVENOUS q 12 H - NaCl 0.9% iv flush bag 20 mL INTRAVENOUS PRN - aluminum-magnesium hydroxide-simethicone 200-200-20 mg/5 mL 30 mL (MAALOX,MYLANTA,MAG-AL PLUS) 30 mL ORAL q 6 H PRN - benzocaine-menthol 1 Lozenge (CEPACOL) 1 Lozenge MUCOUS MEMBRANE (TOPICAL MOUTH AND THROAT) q 2 H PRN - guaiFENesin 600 mg ER tab(s) (MUCINEX) 600 mg ORAL q 12 H PRN - melatonin 3 mg tab(s) 3 mg ORAL HS PRN - ondansetron (PF) 4 mg injection (ZOFRAN) 4 mg INTRAVENOUS q 6 H PRN - polyethylene glycol 3350 17 g packet (MIRALAX, GLYCOLAX) 17 g ORAL DAILY PRN - docusate sodium 100 mg cap(s) (COLACE) 100 mg ORAL BID PRN - polyvinyl alcohol-povidone 1.4-0.6 % 1 Drop (REFRESH) 1 Drop BOTH EYES PRN - saliva substitute combo no.9 15 mL (BIOTENE mouthwash) 15 mL MUCOUS MEMBRANE (TOPICAL MOUTH AND THROAT) TID PRN - sodium chloride 0.65 % 2 [place] (AYR, OCEAN) 2 [place] EACH NOSTRIL PRN - prochlorperazine 10 mg injection (COMPAZINE) 10 mg INTRAVENOUS q 6 H PRN - sodium chloride 0.9 % (flush) 3-5 mL (BD POSIFLUSH) 3-5 mL INTRAVENOUS q 12 H - lactated ringers iv infusion 100 mL/hr INTRAVENOUS CONTINUOUS - senna 17.2 mg tab(s) (SENOKOT) 17.2 mg ORAL AT BEDTIME - acetaminophen 650 mg tab(s) (TYLENOL) 650 mg ORAL TID - oxyCODONE IR 5 mg tab(s) (ROXICODONE) 5 mg ORAL q 3 H PRN - morphine 2 mg injection 2 mg INTRAVENOUS q 2 H PRN ALLERGIES ALLERGIES Allergen Reactions - Bees - Codeine - Darvocet A500 [Prop* - Environmental [Othe* PERTINENT PHYSICAL EXAM and INITIAL ASSESSMENT (For vital signs prior and during MET call, see nursing documentation) Pertinent Vital Signs at Time of MET 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 [facility] 08-30-2021 Note HNO ID: [id number] Author: Juana Chua RN Service: Care Management Author Type: Registered Nurse Type: Care Mgt Progress Note Filed: 08/30/2021 11:41 AM Note Text: CARE MANAGEMENT PROGRESS NOTE SERVICE DATE: 08/30/2021 SERVICE TIME: 1140 LOS: 1 day Spoke with patient and discussed [facility] does not have bed available. Provided choice list. Patient wants to speak to family before giving choices. Discussed need choices as soon as possible. I will send some referrals in [place] area while waiting for patient preferences. SIGNATURE: Juana Chua RN PATIENT NAME: Ana Maria Avalos DATE: August 30, 2021 TIME: 11:40 AM PAGER/CONTACT #: [phone] [facility] 08-30-2021 Note HNO ID: [id number] Author: Juana Chua RN Service: Care Management Author Type: Registered Nurse Type: Care Mgt Initial Assessment Filed: 08/30/2021 10:12 AM Note Text: CARE MANAGEMENT: ASSESSMENT AND DISCHARGE PLAN SERVICE DATE: August 30, 2021 SERVICE TIME: 1010 PRIMARY CARE PHYSICIAN: Agnieszka Fish MD ADMISSION STATUS: Inpatient Needs Prior to Discharge: Facility or Agency Choices;Discharge Transportation MEDICAL: MEDICARE A AND B 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 : 1 - Never How confident are you filling out medical forms by yourself?: 1 - Extremely If Patient scores > 3 on either question, the following interventions were put into place:: Patient did not score > 3 on either question. Baseline Mental Status Prior to this Illness what was the patient's Baseline Mental Status?: Alert AND Oriented Prior to this illness, has anyone described the patient having any of the following behaviors?: Not Applicable Relationship of the informant to the patient:: Self Functional Status: Independent Does Patient Currently Receive Any Community Services or Home Care?: None Equipment Prior to Admission: None Has the Patient Been in a Long-Term Facility in the Past 30 days?: No SOCIAL: Living Arrangements: Home Lives With: Alone Financial Resources: Retired Primary Contact: Extended Emergency Contact Information Primary Emergency Contact: Kvng Pope [place] Mobile Relation: Relative Secondary Emergency Contact: Tracee Pope Mobile Relation: Daughter Contact Resources: Family Family Name/Phone: daughter Tracee Pope Caregiver AssessmentCaregiver is ready, willing and able to meet the patient's needs as recommended by the inter-professional team:: Yes Does the patient have an acute stroke diagnosis, or has the patient had a stroke during this admission?: No Patient's transition needs and plan for meeting these needs: snf Patient's perception of need for this admission: fall. Femur fracture Medication Adherance I am convinced of the importance of my prescription medication: 0 - Agree Completely I worry that my prescription medication will do more harm than good to me : 0 - Disagree Completely I feel financially burdened by my oyx-tx-[id number] expenses for my prescription medication:: 0 - Disagree Completely Risk Score: 0 Patient is categorized as: Low risk < 2 Are you interested in bedside delivery of your medications? No Is Patient Psychosocially Complex?: No ASSESSMENT AND PLAN: Medical Needs: Medical Needs: None Psychosocial Needs: Psychosocial Needs: None FREEDOM OF CHOICE EXPLAINED: [place] of Choice Given: No (requests [place] transitional snf) POTENTIAL TRANSITION PLANS Long-Term Facility/Intermediate Care Facility Met with patient at bedside. Lives alone and independent prior to admission. Ambulates without assistance. Patient asking about [place] [facility]. Discussed I will send referral to [facility] to check for bed availability . PT OT evaluation pending. . SIGNATURE: Juana Chua RN PATIENT NAME: Ana Maria Avalos DATE: August 30, 2021 TIME: 10:10 AM PAGER/CONTACT #: [phone] [facility] 08-30-2021 Note HNO ID: [id number] Author: Dwight Pierce MD Service: Hospital Medicine Author Type: Physician Type: Progress Notes Filed: 08/30/2021 1:28 PM Note Text: INPATIENT PROGRESS NOTE CHIEF COMPLAINT: L leg pain INTERVAL HPI: Pt underwent IMN for L femur fracture yest. Pt today denies any new complaints. No CP/SOB/palpitations PHYSICAL EXAM: BP 121/65 Pulse 156 Temp (Src) 97.5 (Axillary) Resp 18 Ht 5' 8 (1.73m) Wt 163 lb 9.3 oz (74.2kg) SpO2 92% BMI 24.88 kg/(m2). O2 Therapy: Nasal Cannula, Liters: 2 GENERAL: Alert, no distress, cooperative LUNGS: Lungs clear to auscultation, Good diaphragmatic excursion CARDIAC: Normal S1 and S2; no rubs, murmurs, or gallops ABDOMEN: Abdomen soft, non-tender, BS normal, No masses or organomegaly, sandhu+ EXTREMITIES: no edema DATA: Diagnostic tests reviewed for today's visit: CBC, Coags, BMP, Mg, Phos Recent Labs 08/30/21 1234 08/30/21 1233 08/30/21 0047 08/30/21 0046 08/29/21 1312 08/29/21 0442 08/29/21 0236 WBC -- 11.04* -- 9.89 9.53 < > 7.29 HB -- 9.5* -- 9.0* 10.0* < > 11.0* HCT -- 29.9* -- 28.6* 31.0* < > 34.3* PLT -- 185 -- 151 162 < > 179 INR -- -- 2.9* -- 2.5* -- 2.4* NA 133* -- -- 134* 139 < > 137 K 4.7 -- -- 5.0 4.8 < > 5.1 CHLOR 97 -- -- 100 105 < > 102 CO2 24 -- -- 25 25 < > 26 BUN 23* -- -- 23* 22* < > 22* CREAT 1.38* -- -- 1.26* 1.17* < > 1.15* GLUC 156* -- -- 150* 173* < > 209* CA 8.3* -- -- 7.8* 8.0* < > 8.3* MG 2.5* -- -- -- -- -- -- < > = values in this interval not displayed. Recent Labs 08/30/21 1220 PCGLUCOSE 164* Assessment/Plan # LEft distal femur fracture s/p IMN - c/w pain control with Oxycodone # acute hypoxic resp failure- Pt on 2 L O2 currently. Denies SOB. CT chest at admission neg for PE. Wean o2 to RA as able Rpt CXR if unable to wean # Chronic diastolic HF- lasix on hold. Restart if BP stable # chronic Afib- rate controlled on BB/amiodarone . Coumadin on hold for Sx. Restart when ok with ortho INR today therapaeutic # incidental lung nodule- needs rpt CT chest as out pt # CHRISTOPHER vs CKD 3- monitor PT/OT recommends SNF [place] Pt noted to have elevated HR earlier sustaining at 170.I was told that pt got upset after knowing that she needs to go to SNF [place]. EKG showed SVT. SWAMPER was called. HR improved with 1 dose of IV lopressor. Ordered fro NS bolus. Troponin elevated at 30. Pt with no active CP. Rpt Troponin and continue to monitor on tele Plan of care discussed with: Provider, RN, Patient. SIGNATURE: Dwight Pierce MD PATIENT NAME: Ana Maria Avalos DATE: August 30, 2021 TIME: 1:11 PM PAGER: [facility] 08-30-2021 Note HNO ID: [id number] Author: Tomás Chacko MD Service: Orthopaedic Surgery Author Type: Physician Type: Progress Notes Filed: 08/30/2021 11:56 AM Note Text: I evaluated the patient and personally participated in the [place] components. I agree with the resident's findings and plan with the following revisions and/or additions: overall doing well. Stable construct and will allow 60 lbs PWB. Discharge plan to SNF in [place]. Will try and arrange followup locally with her previous Ortho. Signature: Tomás Chacko MD Service Date: 08/30/2021 Service Time: 11:55 AM Orthopaedic INPATIENT PROGRESS NOTE Assessment: 86 year old female POD1 status-post retrograde IM nailing of the left periprosthetic distal femur fracture. ? - Medical management per primary - Pain control. - Weight Bearing Status: Partial WB LLE < 60 lbs; WBAT RLE (post-op shoe ordered) - Dressing(s): Maintain super riky, aquacel and tegaderms dressing LLE x 7-10 days - PT/OT: Evaluation AND recommendations. - INR today: 2.9 - DVT PPx: SCDs. Hold coumadin until POD2 (will recheck INR tomorrow) - Antibiotic PPx: vancomycin and ancef: complete - Sandhu: dc POD1 after up with therapy. - Anticipated Length of Stay/Disposition: per primary. ? INTERVAL HPI: No acute events overnight. Pain controlled. Currently on 2L NC. Denies SOB/CP. MEDICATIONS: Current Facility-Administered Medications Medication Dose Route Frequency - amiodarone 100 mg tab(s) (PACERONE) 100 mg ORAL DAILY - atorvastatin 20 mg tab(s) (LIPITOR) 20 mg ORAL AT BEDTIME - losartan 50 mg tab(s) (COZAAR) 50 mg ORAL DAILY - metoprolol succinate ER 12.5 mg tab(s) (TOPROL XL) 12.5 mg ORAL DAILY - amLODIPine 2.5 mg tab(s) (NORVASC) 2.5 mg ORAL DAILY - pantoprazole DR 40 mg tab(s) (PROTONIX) 40 mg ORAL DAILY (6 AM) - levothyroxine 100 mcg tab(s) (SYNTHROID) 100 mcg ORAL DAILY (6 AM) - sodium chloride 0.9 % (flush) 3-5 mL (BD POSIFLUSH) 3-5 mL INTRAVENOUS q 12 H - NaCl 0.9% iv flush bag 20 mL INTRAVENOUS PRN - aluminum-magnesium hydroxide-simethicone 200-200-20 mg/5 mL 30 mL (MAALOX,MYLANTA,MAG-AL PLUS) 30 mL ORAL q 6 H PRN - benzocaine-menthol 1 Lozenge (CEPACOL) 1 Lozenge MUCOUS MEMBRANE (TOPICAL MOUTH AND THROAT) q 2 H PRN - guaiFENesin 600 mg ER tab(s) (MUCINEX) 600 mg ORAL q 12 H PRN - melatonin 3 mg tab(s) 3 mg ORAL HS PRN - ondansetron (PF) 4 mg injection (ZOFRAN) 4 mg INTRAVENOUS q 6 H PRN - polyethylene glycol 3350 17 g packet (MIRALAX, GLYCOLAX) 17 g ORAL DAILY PRN - docusate sodium 100 mg cap(s) (COLACE) 100 mg ORAL BID PRN - polyvinyl alcohol-povidone 1.4-0.6 % 1 Drop (REFRESH) 1 Drop BOTH EYES PRN - saliva substitute combo no.9 15 mL (BIOTENE mouthwash) 15 mL MUCOUS MEMBRANE (TOPICAL MOUTH AND THROAT) TID PRN - sodium chloride 0.65 % 2 [place] (AYR, OCEAN) 2 [place] EACH NOSTRIL PRN - prochlorperazine 10 mg injection (COMPAZINE) 10 mg INTRAVENOUS q 6 H PRN - sodium chloride 0.9 % (flush) 3-5 mL (BD POSIFLUSH) 3-5 mL INTRAVENOUS q 12 H - lactated ringers iv infusion 100 mL/hr INTRAVENOUS CONTINUOUS - senna 17.2 mg tab(s) (SENOKOT) 17.2 mg ORAL AT BEDTIME - acetaminophen 650 mg tab(s) (TYLENOL) 650 mg ORAL TID - oxyCODONE IR 5 mg tab(s) (ROXICODONE) 5 mg ORAL q 3 H PRN - morphine 2 mg injection 2 mg INTRAVENOUS q 2 H PRN PHYSICAL EXAM: BP 105/70 Pulse 62 Temp 36.8 ?C (98.2 ?F) (Oral) Resp 18 Ht 172.7 cm (5' 8 ) Wt 74.2 kg (163 lb 9.3 oz) SpO2 97% BMI 24.87 kg/m? Body mass index is 24.87 kg/m?. General appearance: NAD LLE: Dressing c/d/i +SILT s/s/sp/dp/t +motor df/pf/ehl +2 dp/pt pulses RLE: no open wounds/lacerations +SILT s/s/sp/dp/t +motor df/pf/ehl +2 dp/pt pulses DATA: CBC: Recent Labs 08/30/2145 WBC 9.89 RBC 2.74* HB 9.0* HCT 28.6* PLT 151 MCV 104.4* MCH 32.8 MPV 9.0 BMP: Recent Labs 08/30/2145 NA 134* K 5.0 CHLOR 100 CO2 25 BUN 23* CREAT 1.26* GLUC 150* IMAGING: XR L Femur: Stable IMN hardware in apropriate alignment. SIGNATURE: Stevie Urrutia MD PAGER: [phone] DATE of SERVICE: 08/30/2021 TIME of SERVICE: 6:07 AM [facility] 08-29-2021 Note HNO ID: [id number] Author: Lana Lopez RN Service: ? Author Type: Registered Nurse Type: Nursing Progress Note Filed: 08/29/2021 12:07 PM Note Text: Post op xrays completed [facility] 08-29-2021 Note HNO ID: [id number] Author: Kilo Olivares RN Service: ? Author Type: Registered Nurse Type: Nursing Progress Note Filed: 08/29/2021 12:00 PM Note Text: Xray here for post op film [facility] 08-29-2021 Note HNO ID: [id number] Author: Lucille Chicas APRN.INTERNAL SECURITY MANAGER Service: Anesthesiology Author Type: Nurse Patrol Agent Type: Anesthesia Procedure Notes Filed: 08/29/2021 8:31 AM Note Text: ANESTHESIOLOGY PROCEDURE NOTE Airway General Information Procedure Start Time/Medication Administration: 08/29/2021 8:13 AM Patient location during procedure: OR Timeout Performed Pre-procedure: timeout performed Consent Obtained: Yes Patient identity confirmed: arm band Staffing Anesthesiologist: Primo Reno MD INTERNAL SECURITY MANAGER: Lucille Chicas APRN.INTERNAL SECURITY MANAGER Performed by: INTERNAL SECURITY MANAGER Indications and Patient Condition Preoxygenated: yes Patient position: sniffing Indications for airway management: anesthesia anesthesia circuit Method: asleep Cricoid Pressure: Yes Final Airway Details Final airway type: endotracheal airway Final Endotracheal Airway: ETT Cuffed: yes Successful intubation technique: direct laryngoscopy Devices used: Bougie Endotracheal tube insertion site: oral Blade: Epifanio Blade size: #3 ETT size (mm): 7.5 Measured from: lips Measurement (cm): 21 Placement verified by: chest auscultation and capnometry Cormack-Lehane Classification: grade IIb - view of arytenoids or posterior of glottis only Number of attempts at approach: 2 SIGNATURE: Lucille Chicas APRN.INTERNAL SECURITY MANAGER PATIENT NAME: Ana Maria Avalos DATE: August 29, 2021 TIME: 8:31 AM CSN: [id number] [facility] 08-29-2021 Note HNO ID: [id number] Author: Lizet Dickerson RN Service: Nursing Author Type: Registered Nurse Type: Nursing Progress Note Filed: 08/29/2021 8:00 AM Note Text: Last coumadin on 08/27/21 [facility] 08-29-2021 Note HNO ID: [id number] Author: Lizet Dickerson RN Service: Nursing Author Type: Registered Nurse Type: Nursing Progress Note Filed: 08/29/2021 8:00 AM Note Text: Dr Dwight Reno notified of no urination since yesterday per pt [facility] 08-29-2021 Note HNO ID: [id number] Author: Lizet Dickerson RN Service: Nursing Author Type: Registered Nurse Type: Nursing Progress Note Filed: 08/29/2021 7:58 AM Note Text: Dr Chacko in room and notified of INR of 2.4 [facility] 08-29-2021 Note HNO ID: [id number] Author: Lizet Dickerson RN Service: Nursing Author Type: Registered Nurse Type: Nursing Progress Note Filed: 08/29/2021 7:57 AM Note Text: Dr Chacko text paged with INR of 2.4 [facility] 08-29-2021 Note HNO ID: [id number] Author: Edis Chavez MD Service: Orthopaedic Surgery Author Type: Resident Type: Progress Notes Filed: 08/29/2021 6:05 AM Note Text: ORTHOPAEDIC SURGERY DAILY PROGRESS NOTE ASSESSMENT: 86 year old female with L periprosthetic distal femur fracture and R 5th metatarsal fracture PLAN: -medical management per primary -hold warfarin for surgery -pain control -maintain knee immobilizer -postop shoe to right foot -PT/OT: NWB LLE -ice and elevate right foot. Ice left knee -NPO -plan for ORIF L distal femur fracture today -plan for non-operative treatment of R 5th metatarsal fracture INTERVAL HPI: No acute events overnight. Pain controlled. Denies fevers and chills. Denies chest pain and shortness of breath. OBJECTIVE: BP (!) 111/48 Pulse 61 Temp 36.6 ?C (97.9 ?F) (Oral) Resp 16 Ht 172.7 cm (5' 8 ) Wt 74.2 kg (163 lb 9.3 oz) SpO2 94% BMI 24.87 kg/m? Exam: General: NAD, AOx3 Left Lower Extremity: There is swelling and bruising around the left knee. Compartments of the thigh and leg are soft and compressible. The patient tolerates passive stretch of the digits. +DF/PF/EHL. SILT neff/sa/sp/dp/t. BCR of the digits of the foot. Right Lower Extremity: There is swelling and bruising around the lateral foot. Compartments of the thigh and leg are soft and compressible. The patient tolerates passive stretch of the digits. +DF/PF/EHL. SILT but diminished neff/sa/sp/dp/t. BCR of the digits of the foot. Recent Labs 08/29/21 0442 08/29/21 0236 CREAT 1.12* 1.15* BUN 22* 22* NA 139 137 K 4.5 5.1 CHLOR 105 102 CO2 26 26 ANION 8* 9 GLUC 131* 209* CA 8.0* 8.3* ALB -- 3.7* AST -- 33 ALT -- 28 ALKPHOS -- 46 TBILI -- 0.6 WBC 6.68 7.29 HB 11.2* 11.0* HCT 35.1* 34.3* PLT 187 179 COAGS: APTT 29.5 12/09/2010 INR (POCT) 2.4 08/29/2021 Imaging: XR of the left femur: There is a displaced periprosthetic distal femur fracture. Implant appears stable. No proximal hardware or fractures identified. Edis Chavez MD Orthopaedic Surgery 08/29/2021 6:01 AM [facility] Summary Purpose Family History No Family History Records FoundNo Family History Records Found Advance Directives No Advanced Directives Records FoundNo Advanced Directives Records Found Additional Source Comments INFORMATION SOURCE (unrecogn ized section and content) DATE CREATED AUTHOR AUTHOR'S ORGANIZ ATION 09/12/2021 [facility] FOR RECORDS PERTAINING TO PATIENTS WHO ARE OR HAVE BEEN ENROLLED IN A CHEMICAL DEPENDENCY/SUBSTANCEABUSE PROGRAM, SOME INFORMATION MAY BE OMITTED. This clinical summary was aggregated from multiple sources. Caution should be exercised in using it in the provision of clinical care. This summary normalizes information from multiple sources, and as a consequence, information in this document may materially change the coding, format and clinical context of patient data. In addition, data may be omitted in some cases. CLINICAL DECISIONS SHOULD BE BASED ON THE PRIMARY CLINICAL RECORDS. [facility]. provides no warranty or guarantee of the accuracy or completeness of information in this document.
--- NOTE | 2023-09-29 17:36 | STRESSREP ---
Stress Test Report Pharmacologic myocardial perfusion stress test. 88-year-old lady with a history of chest pain Resting EKG demonstrates atrial flutter with a rate of 130 bpm. Resting blood pressure is 108/68 mmHg. 0.4 mg of regadenoson was infused per usual protocol followed by rapid intravenous saline flush injection. Continuous EKG monitoring was performed. The maximum heart rate was 134 bpm which was 100% of max impacted heart rate the maximum workload was 1 metabolic equivalent. At rest there were no ST or T wave changes noted to suggest ischemia and at peak infusion nonspecific ST changes were noted which did not meet the criteria for ischemia. No clinical angina is noted. The final blood pressure was 110/72 mmHg. Myocardial perfusion protocol. 11.3 mCi of technetium 99m sestamibi was injected at rest. 0.4 mg of regadenoson was infused per usual protocol. At peak infusion 33.8 mCi of technetium 99m sestamibi was injected stress images were obtained stress and rest images were reconstructed and compared in the short axis vertical long and horizontal long axis. Gated images were also obtained. Perfusion SPECT analysis: Review of the stress images demonstrate normal uptake of tracer noted in all areas of the myocardium. The resting images similar demonstrated normal uptake of tracer noted in all areas of the myocardium. No areas of reversibility are noted to suggest ischemia and no previous infarct is noted. Gated SPECT analysis: The gated ejection fraction is 42%. Conclusion: Normal pharmacologic myocardial perfusion stress test. Reduced ejection fraction. Atrial flutter with 2 :1 conduction and or junctional tachycardia.
== END | disposition home or self-care (01) ==
LOC: CVS 06:47
PROVIDERS: PCP Internal Medicine; Referring Provider Physician Assistant Medical; Visit Provider Physician Assistant Medical
DX: R07.9 Chest pain, unspecified (principal); R06.09 Other forms of dyspnea; I20.89 Other forms of angina pectoris; I35.0 Nonrheumatic aortic (valve) stenosis
CPT/HCPCS: 78452; 93017; 93306; A9500; A4216; J2785

== ENCOUNTER 2023-10-19 13:44 | Outpatient (RCR) | payer MEDICARE, OTHER, SELFPAY ==
[2023-10-01 22:27] VITALS: BMI 24.0
[2023-10-19 14:26] LABS: International Normalized Ratio 2.3; Prothrombin Time (Protime)PT. 25.1 SECONDS (11.7-14.9)
== END 2023-10-31 18:00 | disposition home or self-care (01) ==
LOC: LAB 13:44
PROVIDERS: Family Provider Internal Medicine; PCP Internal Medicine; Referring Provider Physician Assistant Medical; Visit Provider Physician Assistant Medical
DX: I48.92 Unspecified atrial flutter (principal); Z79.01 Long term (current) use of anticoagulants; Z79.899 Other long term (current) drug therapy
CPT/HCPCS: 36415; 85610

== ENCOUNTER 2023-11-16 14:53 | Outpatient (RCR) | payer MEDICARE, OTHER, SELFPAY ==
[2023-10-31 22:08] VITALS: BMI 24.0
[2023-11-02 11:59] LABS: International Normalized Ratio 2.4; Prothrombin Time (Protime)PT. 26.2 SECONDS (11.7-14.9)
[2023-11-16 15:27] LABS: International Normalized Ratio 2.6; Prothrombin Time (Protime)PT. 27.8 SECONDS (11.7-14.9)
== END 2023-12-01 22:42 | disposition home or self-care (01) ==
LOC: LAB 14:53
PROVIDERS: Family Provider Internal Medicine; PCP Internal Medicine; Referring Provider Physician Assistant Medical; Visit Provider Physician Assistant Medical
DX: Z79.01 Long term (current) use of anticoagulants; I48.11 Longstanding persistent atrial fibrillation
CPT/HCPCS: 36415; 85610

== ENCOUNTER → 2023-11-17 | Outpatient (CLI) | payer MEDICARE, OTHER, SELFPAY ==
[2023-11-17 12:47] VITALS: PULSE 110; PULSE 75; PULSE 89; PULSE 90; PULSE 92; PULSE 94; PULSE 97; O2SAT 93; O2SAT 94; O2SAT 95; O2SAT 96
--- NOTE | 2023-11-18 09:46 | PCM.PSN.6M ---
PSN 6 Minute Walk Test 6 Minute Walk Test 6 Minute Walk Test: 6 Minute Walk Test PSN:6-Minute Walk Test Start: 11/17/23 12:47 Freq: Status: Active Protocol: RESP.6MINW Document 11/17/23 12:47 THAIS (Rec: 11/17/23 12:49 THAIS [id number]) 6 Minute Walk Test Date Performed 11/17/23 Time Performed 12:30 Height 5 ft 8 in Weight: 150 lb Weight in Pounds 150.[address]: Eun Lloyd Assistive device used: None Pre-test Oxygen Delivery Method Room Air Pulse Ox 96 Pulse Rate (60-100) 90 Dyspnea Roman Scale (0-10) 0 Exertion Roman Scale (6-20) 6 1st minute Oxygen Delivery Method Room Air Pulse Ox 95 Pulse Rate (60-100) 94 2nd minute Oxygen Delivery Method Room Air Pulse Ox 93 Pulse Rate (60-100) 89 3rd minute Oxygen Delivery Method Room Air Pulse Ox 93 Pulse Rate (60-100) 110 H 4th minute Oxygen Delivery Method Room Air Pulse Ox 95 Pulse Rate (60-100) 92 5th minute Oxygen Delivery Method Room Air Pulse Ox 94 Pulse Rate (60-100) 94 6th minute Oxygen Delivery Method Room Air Pulse Ox 95 Pulse Rate (60-100) 97 Dyspnea Roman Scale (0-10) 4 Exertion Roman Scale (6-20) 13 Post-test Oxygen Delivery Method Room Air Pulse Ox 96 Pulse Rate (60-100) 75 Full Laps Walked 13 Partial Lap, Number of Tiles Walked 23 Total Distance Walked (ft) 790 Interpretation Interpretation: The patient ambulated 790 feet over the course of 6 minutes beginning on room air without assistive devices. Pretesting oxygen saturation was noted to be 96% on room air. With ambulation, the james oxygen saturation was 93%. There was no significant exertional oxygen desaturation. Recommendations Recommendations: There is no indication for the use of supplemental oxygen at this time.
== END | disposition home or self-care (01) ==
LOC: PSN 12:08
PROVIDERS: PCP Internal Medicine; Referring Provider Physician Assistant Medical; Visit Provider Physician Assistant Medical
DX: R06.09 Other forms of dyspnea (principal)
CPT/HCPCS: 94618

== ENCOUNTER 2023-12-29 12:15 | Outpatient (RCR) | payer MEDICARE, OTHER, SELFPAY ==
[2023-12-01 22:42] VITALS: BMI 24.0
[2023-12-15 15:21] LABS: International Normalized Ratio 2.4; Prothrombin Time (Protime)PT. 26.4 SECONDS (11.7-14.9)
[2023-12-29 13:07] LABS: International Normalized Ratio 2.2; Prothrombin Time (Protime)PT. 24.6 SECONDS (11.7-14.9)
== END 2024-01-01 18:00 | disposition home or self-care (01) ==
LOC: LAB 12:15
PROVIDERS: Family Provider Internal Medicine; PCP Internal Medicine; Referring Provider Physician Assistant Medical; Visit Provider Physician Assistant Medical
DX: I48.11 Longstanding persistent atrial fibrillation; Z79.01 Long term (current) use of anticoagulants
CPT/HCPCS: 36415; 85610

== ENCOUNTER 2024-01-27 13:54 | Outpatient (RCR) | payer MEDICARE, OTHER, SELFPAY ==
[2024-01-04 09:22] VITALS: BMI 24.0
[2024-01-15 12:28] LABS: Absolute Lymphocyte Count 0.96 X10^3/uL (0.83-4.51); Basophil# 0.07 X10^3/uL; Basophil% 1.1 % (0-1); Eosinophil# 0.36 X10^3/uL; Eosinophils% 5.7 % (0-5); Hematocrit 45.5 % (37-47); Hemoglobin 14.8 g/dL (12.0-15.0); Lymphocyte # 0.96 X10^3/ul (0.83-4.51); Lymphocyte % 15.2 % (19-41); Mean Corp Hgb Conc 32.5 g/dL (32-36); Mean Corpuscular Hgb 33.3 pg (27.0-32.0); Mean Corpuscular Volume 102.2 fL (81-99); Mean Platelet Vol. 8.8 fl (6.2-12.0); Monocyte# 0.86 X10^3/uL; Monocyte% 13.6 % (0-10); NRBC Flagged by Analyzer 0 % (0-5); Neutrophil # 4.04 X10^3/uL (2.7-7.7); Neutrophil % 64.1 % (47-70); Platelet Count 196 K/mm3 (150-450); RBC Distribution Width CV 15.6 % (11.6-14.6); RBC Distribution Width SD 59.3 fl (35.1-43.9); Red Blood Count 4.45 M/mm3 (4.2-5.4); White Blood Count 6.3 K/mm3 (4.4-11.0)
[2024-01-15 12:47] LABS: International Normalized Ratio 3.7; Prothrombin Time (Protime)PT. 36.4 SECONDS (11.7-14.9)
[2024-01-15 13:18] LABS: AST(SGOT) 30 U/L (15-37); Alanine Aminotransfer ALT/SGPT 32 U/L (13-56); Albumin, Serum 3.9 g/dL (3.2-5.0); Alkaline Phosphatase 78 U/L (45-117); Anion Gap 8 (5-15); BUN 31 mg/dL (7-18); BUN/Creat Ratio 20.3 RATIO (10-20); Bilirubin, Direct 0.35 mg/dL (0.00-0.30); Calcium,Total 9.5 mg/dL (8.5-10.1); Chloride 100 mmol/L (98-107); Creatinine, Serum 1.53 mg/dL (0.55-1.02); EST Glomerular Filtration Rate 34 mL/min (>60); Est Glom Filt Rate - Afr Amer 41 mL/min (>60); Globulin 3.8 g/dL (2.2-4.2); Glucose 92 mg/dL (74-106); Potassium 5.4 mmol/L (3.5-5.1); Protein, Total 7.7 g/dL (6.4-8.2); Sodium Level 135 mmol/L (136-145); Thyroid Stim Hormone (TSH) 2.83 uIU/mL (0.358-3.74)
[2024-01-16 07:17] LABS: Cholesterol 156 mg/dL (200); High Density Lipoprotein 56 mg/dL; Triglycerides 121 mg/dL; Very Low Density Lipoprotein 24 mg/dL (5-40)
[2024-01-27 14:38] LABS: International Normalized Ratio 3.1; Prothrombin Time (Protime)PT. 31.6 SECONDS (11.7-14.9)
[2024-01-27 15:02] LABS: Anion Gap 2 (5-15); BUN 38 mg/dL (7-18); BUN/Creat Ratio 21.6 RATIO (10-20); Calcium,Total 9.4 mg/dL (8.5-10.1); Chloride 103 mmol/L (98-107); Creatinine, Serum 1.76 mg/dL (0.55-1.02); EST Glomerular Filtration Rate 29 mL/min (>60); Est Glom Filt Rate - Afr Amer 35 mL/min (>60); Glucose 95 mg/dL (74-106); Potassium 4.8 mmol/L (3.5-5.1); Sodium Level 135 mmol/L (136-145)
== END 2024-01-27 18:00 | disposition home or self-care (01) ==
LOC: LAB 13:54
PROVIDERS: Nurse Practitioner Family; Family Provider Internal Medicine; PCP Internal Medicine; Referring Provider Physician Assistant Medical; Visit Provider Physician Assistant Medical
DX: Z79.01 Long term (current) use of anticoagulants; I48.11 Longstanding persistent atrial fibrillation; E78.00 Pure hypercholesterolemia, unspecified; I10 Essential (primary) hypertension; E03.9 Hypothyroidism, unspecified
CPT/HCPCS: 36415; 80048; 80053; 80061; 82248; 84443; 85025; 85610

== ENCOUNTER 2024-02-26 12:46 | Outpatient (RCR) | payer MEDICARE, OTHER, SELFPAY ==
[2024-01-31 22:18] VITALS: BMI 24.0
[2024-02-15 14:28] LABS: International Normalized Ratio 2.1; Prothrombin Time (Protime)PT. 23.7 SECONDS (11.7-14.9)
[2024-02-26 13:10] LABS: International Normalized Ratio 2.6
[2024-02-26 13:31] LABS: Anion Gap 5 (5-15); BUN 26 mg/dL (7-18); BUN/Creat Ratio 18.7 RATIO (10-20); Calcium,Total 9.2 mg/dL (8.5-10.1); Chloride 97 mmol/L (98-107); Creatinine, Serum 1.39 mg/dL (0.55-1.02); EST Glomerular Filtration Rate 38 mL/min (>60); Est Glom Filt Rate - Afr Amer 46 mL/min (>60); Glucose 93 mg/dL (74-106); Sodium Level 129 mmol/L (136-145)
== END 2024-03-02 18:00 | disposition home or self-care (01) ==
LOC: LAB 12:46
PROVIDERS: Family Provider Internal Medicine; PCP Internal Medicine; Referring Provider Physician Assistant Medical; Visit Provider Physician Assistant Medical
DX: Z79.01 Long term (current) use of anticoagulants; I48.11 Longstanding persistent atrial fibrillation; N18.30 Chronic kidney disease, stage 3 unspecified
CPT/HCPCS: 36415; 80048; 85610

== ENCOUNTER 2024-03-18 11:52 | Outpatient (RCR) | payer MEDICARE, OTHER, SELFPAY ==
[2024-03-02 20:47] VITALS: BMI 24.0
[2024-03-18 12:30] LABS: International Normalized Ratio 2.1; Prothrombin Time (Protime)PT. 23.1 SECONDS (11.7-14.9)
[2024-03-18 12:50] LABS: ALB/GLOB Ratio 1.1 RATIO (0.9-2.4); AST(SGOT) 27 U/L (15-37); Alanine Aminotransfer ALT/SGPT 29 U/L (13-56); Albumin, Serum 3.8 g/dL (3.2-5.0); Alkaline Phosphatase 83 U/L (45-117); Anion Gap 5 (5-15); BUN 30 mg/dL (7-18); BUN/Creat Ratio 18.5 RATIO (10-20); Calcium,Total 9.2 mg/dL (8.5-10.1); Chloride 99 mmol/L (98-107); Creatinine, Serum 1.62 mg/dL (0.55-1.02); EST Glomerular Filtration Rate 32 mL/min (>60); Est Glom Filt Rate - Afr Amer 39 mL/min (>60); Globulin 3.6 g/dL (2.2-4.2); Glucose 106 mg/dL (74-106); Potassium 5.7 mmol/L (3.5-5.1); Protein, Total 7.4 g/dL (6.4-8.2); Sodium Level 133 mmol/L (136-145)
== END 2024-03-18 18:00 | disposition home or self-care (01) ==
LOC: LAB 11:52
PROVIDERS: Internal Medicine Cardiovascular Disease; Family Provider Internal Medicine; PCP Internal Medicine; Referring Provider Physician Assistant Medical; Visit Provider Physician Assistant Medical
DX: I50.40 Unspecified combined systolic (congestive) and diastolic (congestive) heart failure; R06.09 Other forms of dyspnea
CPT/HCPCS: 36415; 80053; 83880; 85610

== ENCOUNTER → 2024-04-05 | Outpatient (CLI) | payer MEDICARE, OTHER, SELFPAY ==
[2024-04-05 12:32] LABS: Anion Gap 5 (5-15); BUN 21 mg/dL (7-18); BUN/Creat Ratio 16.9 RATIO (10-20); Calcium,Total 9.2 mg/dL (8.5-10.1); Chloride 101 mmol/L (98-107); Creatinine, Serum 1.24 mg/dL (0.55-1.02); EST Glomerular Filtration Rate 43 mL/min (>60); Est Glom Filt Rate - Afr Amer 53 mL/min (>60); Glucose 87 mg/dL (74-106); Potassium 5.2 mmol/L (3.5-5.1); Sodium Level 132 mmol/L (136-145)
== END | disposition home or self-care (01) ==
LOC: BIMLAB 11:21
PROVIDERS: Internal Medicine Cardiovascular Disease; PCP Internal Medicine; Visit Provider Internal Medicine
DX: N18.32 Chronic kidney disease, stage 3b (principal)
CPT/HCPCS: 36415; 80048

== ENCOUNTER 2024-04-18 12:17 | Outpatient (RCR) | payer MEDICARE, OTHER, SELFPAY ==
[2024-04-03 03:47] VITALS: BMI 24.0
[2024-04-08 12:00] LABS: International Normalized Ratio 1.7
[2024-04-18 15:12] LABS: International Normalized Ratio 2.3; Prothrombin Time (Protime)PT. 25.4 SECONDS (11.7-14.9)
== END 2024-05-02 23:59 ==
LOC: BIMLAB 12:17
PROVIDERS: Family Provider Internal Medicine; PCP Internal Medicine; Referring Provider Physician Assistant Medical; Visit Provider Physician Assistant Medical
DX: Z79.01 Long term (current) use of anticoagulants; I48.11 Longstanding persistent atrial fibrillation
CPT/HCPCS: 36415; 85610

== ENCOUNTER 2024-05-26 14:14 | Outpatient (RCR) | payer MEDICARE, OTHER, SELFPAY ==
[2024-05-03 00:45] VITALS: BMI 24.0
[2024-05-06 15:46] LABS: International Normalized Ratio 2.1
[2024-05-06 15:51] LABS: Anion Gap 4 (5-15); BUN 19 mg/dL (7-18); BUN/Creat Ratio 16.1 RATIO (10-20); Calcium,Total 9.2 mg/dL (8.5-10.1); Chloride 100 mmol/L (98-107); Creatinine, Serum 1.18 mg/dL (0.55-1.02); EST Glomerular Filtration Rate 46 mL/min (>60); Est Glom Filt Rate - Afr Amer 56 mL/min (>60); Glucose 102 mg/dL (74-106); Potassium 5.2 mmol/L (3.5-5.1); Sodium Level 131 mmol/L (136-145)
[2024-05-26 16:15] LABS: International Normalized Ratio 3.7; Prothrombin Time (Protime)PT. 36.5 SECONDS (11.7-14.9)
== END 2024-05-26 18:00 | disposition home or self-care (01) ==
LOC: LAB 14:14
PROVIDERS: Internal Medicine Cardiovascular Disease; Family Provider Internal Medicine; PCP Internal Medicine; Referring Provider Physician Assistant Medical; Visit Provider Physician Assistant Medical
DX: Z79.01 Long term (current) use of anticoagulants; I48.11 Longstanding persistent atrial fibrillation; N18.32 Chronic kidney disease, stage 3b
CPT/HCPCS: 36415; 80048; 85610

== ENCOUNTER 2024-06-29 13:45 | Outpatient (RCR) | payer MEDICARE, OTHER, SELFPAY ==
[2024-06-02 20:38] VITALS: BMI 24.0
[2024-06-08 15:13] LABS: International Normalized Ratio 2.7; Prothrombin Time (Protime)PT. 28.1 SECONDS (11.7-14.9)
[2024-06-29 15:59] LABS: Prothrombin Time (Protime)PT. 31.2 SECONDS (11.7-14.9)
== END 2024-07-02 23:59 ==
LOC: BIMLAB 13:45
PROVIDERS: Family Provider Internal Medicine; PCP Internal Medicine; Referring Provider Physician Assistant Medical; Visit Provider Physician Assistant Medical
DX: Z79.01 Long term (current) use of anticoagulants; I48.11 Longstanding persistent atrial fibrillation
CPT/HCPCS: 36415; 85610

== ENCOUNTER 2024-08-01 14:38 | Outpatient (RCR) | payer MEDICARE, OTHER, SELFPAY ==
[2024-07-03 00:38] VITALS: BMI 24.0
[2024-08-01 16:35] LABS: International Normalized Ratio 2.3; Prothrombin Time (Protime)PT. 25.8 SECONDS (11.7-14.9)
== END 2024-08-02 23:59 ==
LOC: BIMLAB 14:38
PROVIDERS: Family Provider Internal Medicine; PCP Internal Medicine; Referring Provider Physician Assistant Medical; Visit Provider Physician Assistant Medical
DX: Z79.01 Long term (current) use of anticoagulants; I48.11 Longstanding persistent atrial fibrillation
CPT/HCPCS: 36415; 85610

== ENCOUNTER 2024-08-15 14:19 | Outpatient (RCR) | payer MEDICARE, OTHER, SELFPAY ==
[2024-08-03 00:20] VITALS: BMI 24.0
[2024-08-15 17:34] LABS: International Normalized Ratio 2.7; Prothrombin Time (Protime)PT. 29.3 SECONDS (11.7-14.9)
== END 2024-09-02 23:59 ==
LOC: BIMLAB 14:19
PROVIDERS: Family Provider Internal Medicine; PCP Internal Medicine; Referring Provider Physician Assistant Medical; Visit Provider Physician Assistant Medical
DX: I48.92 Unspecified atrial flutter (principal); Z79.01 Long term (current) use of anticoagulants; Z79.899 Other long term (current) drug therapy; I11.0 Hypertensive heart disease with heart failure; I50.32 Chronic diastolic (congestive) heart failure
CPT/HCPCS: 36415; 85610

== ENCOUNTER → 2024-09-01 | Outpatient (CLI) | payer MEDICARE, OTHER, SELFPAY ==
[2024-09-01 17:11] LABS: Absolute Lymphocyte Count 1.02 X10^3/uL (0.83-4.51); Absolute Neutrophil Count 4.6 X10^3/uL (2.0-7.7); Basophil# 0.05 X10^3/uL; Basophil% 0.7 % (0-1); Eosinophil# 0.23 X10^3/uL; Eosinophils% 3.4 % (0-5); Hematocrit 41.8 % (37-47); Hemoglobin 13.5 g/dL (12.0-15.0); Lymphocyte # 1.02 X10^3/ul (0.83-4.51); Lymphocyte % 15.1 % (19-41); Mean Corp Hgb Conc 32.3 g/dL (32-36); Mean Corpuscular Hgb 32.8 pg (27.0-32.0); Mean Corpuscular Volume 101.5 fL (81-99); Mean Platelet Vol. 8.7 fl (6.2-12.0); Monocyte# 0.84 X10^3/uL; Monocyte% 12.4 % (0-10); NRBC Flagged by Analyzer 0 % (0-5); Neutrophil % 68.1 % (47-70); Platelet Count 202 K/mm3 (150-450); RBC Distribution Width CV 14.5 % (11.6-14.6); RBC Distribution Width SD 53.7 fl (35.1-43.9); Red Blood Count 4.12 M/mm3 (4.2-5.4); White Blood Count 6.8 K/mm3 (4.4-11.0)
[2024-09-01 17:36] LABS: Erythrocyte Sedimentation Rate 12 mm/hr (0-30)
[2024-09-01 17:57] LABS: ALB/GLOB Ratio 0.9 RATIO (0.9-2.4); AST(SGOT) 26 U/L (15-37); Alanine Aminotransfer ALT/SGPT 30 U/L (13-56); Albumin, Serum 3.5 g/dL (3.2-5.0); Alkaline Phosphatase 93 U/L (45-117); Anion Gap 7 (5-15); BUN 23 mg/dL (7-18); BUN/Creat Ratio 18.1 RATIO (10-20); CRP 7.31 mg/L (0.0-3.0); Calcium,Total 9.6 mg/dL (8.5-10.1); Chloride 99 mmol/L (98-107); Creatinine, Serum 1.27 mg/dL (0.55-1.02); EST Glomerular Filtration Rate 42 mL/min (>60); Est Glom Filt Rate - Afr Amer 51 mL/min (>60); Globulin 3.9 g/dL (2.2-4.2); Glucose 90 mg/dL (74-106); Protein, Total 7.4 g/dL (6.4-8.2); Sodium Level 132 mmol/L (136-145)
[2024-09-01 17:59] LABS: Vitamin D,25 Hydroxy 58.4 ng/mL
== END | disposition home or self-care (01) ==
LOC: BIMLAB 15:18
PROVIDERS: PCP Internal Medicine; Referring Provider Internal Medicine; Visit Provider Internal Medicine
DX: E03.9 Hypothyroidism, unspecified (principal); M81.0 Age-related osteoporosis without current pathological fracture; I10 Essential (primary) hypertension
CPT/HCPCS: 36415; 80053; 82306; 84443; 85025; 85652; 86140

== ENCOUNTER 2024-09-12 15:07 | Outpatient (RCR) | payer MEDICARE, OTHER, SELFPAY ==
[2024-09-03 00:45] VITALS: BMI 24.0
[2024-09-12 16:55] LABS: International Normalized Ratio 3.3; Prothrombin Time (Protime)PT. 34.1 SECONDS (11.7-14.9)
== END 2024-09-30 23:59 ==
LOC: BIMLAB 15:07
PROVIDERS: Family Provider Internal Medicine; PCP Internal Medicine; Referring Provider Physician Assistant Medical; Visit Provider Physician Assistant Medical
DX: Z79.01 Long term (current) use of anticoagulants; I48.11 Longstanding persistent atrial fibrillation
CPT/HCPCS: 36415; 85610

== ENCOUNTER 2024-10-06 14:39 | Outpatient (RCR) | payer MEDICARE, OTHER, SELFPAY ==
[2024-10-01 00:39] VITALS: BMI 24.0
[2024-10-06 16:44] LABS: International Normalized Ratio 2.6; Prothrombin Time (Protime)PT. 28.4 SECONDS (11.7-14.9)
[2024-10-06 18:04] LABS: CRP 3.29 mg/L (0.0-3.0)
== END 2024-10-31 23:59 ==
LOC: BIMLAB 14:39
PROVIDERS: Family Provider Internal Medicine; PCP Internal Medicine; Referring Provider Physician Assistant Medical; Visit Provider Physician Assistant Medical
DX: Z79.01 Long term (current) use of anticoagulants; I48.11 Longstanding persistent atrial fibrillation; R79.82 Elevated C-reactive protein (CRP)
CPT/HCPCS: 36415; 85610; 86140

== ENCOUNTER 2024-11-02 10:33 | Outpatient (RCR) | payer MEDICARE, OTHER, SELFPAY ==
[2024-11-01 00:13] VITALS: BMI 24.0
[2024-11-02 12:54] LABS: International Normalized Ratio 2.6; Prothrombin Time (Protime)PT. 28.6 SECONDS (11.7-14.9)
[2024-11-02 16:33] LABS: AST(SGOT) 31 U/L (<=31); Alanine Aminotransfer ALT/SGPT 23 U/L (<=34); Albumin, Serum 4.2 g/dL (3.4-4.8); Alkaline Phosphatase 95 U/L (35-104); Bilirubin, Direct 0.51 mg/dL (0.00-0.30); Cholesterol 140 mg/dL (<=200); Globulin 2.8 g/dL (2.2-4.2); High Density Lipoprotein 67 mg/dL; Low Density Lipoprotein Calc. 61 mg/dL; Protein, Total 6.9 g/dL (5.9-8.4); Total Bilirubin 1.04 mg/dL (0.00-1.30); Triglycerides 61 mg/dL; Very Low Density Lipoprotein 12 mg/dL (5-40); cholesterol:hdl ratio screen 2.08
== END 2024-11-30 23:59 ==
LOC: BIMLAB 10:33
PROVIDERS: Family Provider Internal Medicine; PCP Internal Medicine; Referring Provider Physician Assistant Medical; Visit Provider Physician Assistant Medical
DX: Z79.01 Long term (current) use of anticoagulants; E78.00 Pure hypercholesterolemia, unspecified
CPT/HCPCS: 36415; 80061; 80076; 85610

== ENCOUNTER 2024-12-02 12:36 | Outpatient (RCR) | payer MEDICARE, OTHER, SELFPAY ==
[2024-12-01 00:27] VITALS: BMI 24.0
[2024-12-02 13:14] LABS: International Normalized Ratio 2.5; Prothrombin Time (Protime)PT. 27.9 SECONDS (11.7-14.9)
[2024-12-02 14:49] LABS: AST(SGOT) 31 U/L (<=31); Alanine Aminotransfer ALT/SGPT 22 U/L (<=34); Albumin, Serum 4.1 g/dL (3.4-4.8); Alkaline Phosphatase 94 U/L (35-104); Bilirubin, Direct 0.42 mg/dL (0.00-0.30); Cholesterol 128 mg/dL (<=200); Globulin 2.6 g/dL (2.2-4.2); High Density Lipoprotein 59 mg/dL; Low Density Lipoprotein Calc. 53 mg/dL; Protein, Total 6.7 g/dL (5.9-8.4); Total Bilirubin 0.83 mg/dL (0.00-1.30); Triglycerides 79 mg/dL; Very Low Density Lipoprotein 16 mg/dL (5-40); cholesterol:hdl ratio screen 2.15
== END 2024-12-02 18:00 | disposition home or self-care (01) ==
LOC: LAB 12:36
PROVIDERS: Internal Medicine Cardiovascular Disease; Family Provider Internal Medicine; PCP Internal Medicine; Referring Provider Physician Assistant Medical; Visit Provider Physician Assistant Medical
DX: Z79.01 Long term (current) use of anticoagulants; E78.00 Pure hypercholesterolemia, unspecified
CPT/HCPCS: 36415; 80061; 80076; 85610

== ENCOUNTER 2025-01-10 10:31 | Outpatient (RCR) | payer MEDICARE, OTHER, SELFPAY ==
[2024-12-31 20:50] VITALS: BMI 24.0
[2025-01-10 12:27] LABS: International Normalized Ratio 3.5; Prothrombin Time (Protime)PT. 35.5 SECONDS (11.7-14.9)
== END 2025-01-30 23:59 ==
LOC: BIMLAB 10:31
PROVIDERS: Family Provider Internal Medicine; PCP Internal Medicine; Referring Provider Physician Assistant Medical; Visit Provider Physician Assistant Medical
DX: Z79.01 Long term (current) use of anticoagulants
CPT/HCPCS: 36415; 85610

== ENCOUNTER 2025-01-30 19:17 | Emergency (ER) | payer MEDICARE, OTHER, SELFPAY ==
[2025-01-30 19:20] VITALS: BP 126/66; PULSE 64; RESP 18; TEMP 35.6; O2SAT 94
[2025-01-30 19:40] VITALS: BMI 24.6
--- NOTE | 2025-01-30 19:53 | EKG12_ITS ---
Test Reason : SOB Blood Pressure : */* mmHG Vent. Rate : 80 BPM Atrial Rate : * BPM P-R Int : * ms QRS Dur : 106 ms QT Int : 384 ms P-R-T Axes : * 40 181 degrees QTcB Int : 442 ms Atrial fibrillation with premature ventricular or aberrantly conducted complexes Incomplete right bundle branch block ST & T wave abnormality, consider lateral ischemia Abnormal ECG Confirmed by SAMARA KIM, NORAH ([id number]), social media editor EDNA CHUN ([id number]) on 01/31/2025 1:35:01 PM Referred By: JOVITA Confirmed By: NORAH PASCUAL MD
--- NOTE | 2025-01-30 19:53 | EKG12_ITS ---
Test Reason : SOB Blood Pressure : */* mmHG Vent. Rate : 80 BPM Atrial Rate : * BPM P-R Int : * ms QRS Dur : 106 ms QT Int : 384 ms P-R-T Axes : * 40 181 degrees QTcB Int : 442 ms Atrial fibrillation with premature ventricular or aberrantly conducted complexes Incomplete right bundle branch block ST & T wave abnormality, consider lateral ischemia Abnormal ECG Confirmed by SAMARA KIM, NORAH ([id number]), news copy editor EDNA CHUN ([id number]) on 01/31/2025 1:35:01 PM Referred By: JOVITA Confirmed By: NORAH PASCUAL MD
[2025-01-30 20:04] LABS: Hematocrit 41.4 % (37-47); Hemoglobin 13.5 g/dL (12.0-15.0); Immature Granulocytes Count 0.020 X10^3/uL (0.0-0.0); Mean Corp Hgb Conc 32.6 g/dL (32-36); Mean Corpuscular Volume 97.6 fL (81-99); Mean Platelet Vol. 9.0 fl (6.2-12.0); NRBC Flagged by Analyzer 0 % (0-5); Platelet Count 173 K/mm3 (150-450); RBC Distribution Width CV 14.5 % (11.6-14.6); RBC Distribution Width SD 51.8 fl (35.1-43.9); Red Blood Count 4.24 M/mm3 (4.2-5.4); White Blood Count 5.7 K/mm3 (4.4-11.0)
[2025-01-30 20:38] LABS: Anion Gap 13 (5-15); BUN 37 mg/dL (4-19); BUN/Creat Ratio 21.9 RATIO (10-20); Calcium,Total 9.0 mg/dL (7.6-11.0); Carbon Dioxide 20.6 mmol/L (21.0-32.0); Chloride 99 mmol/L (98-108); Estimated Creatinine Clearance 23.07 ml/min (50-250); Glucose 136 mg/dL (70-99); Potassium 4.9 mmol/L (3.3-5.1); Troponin T High Sensitivity 56 ng/L (<=14)
--- NOTE | 2025-01-30 20:42 | CT_ITS ---
PROCEDURE: ABDOMEN/PELVIS W IV CONT ONLY 01/30/2025 REASON FOR EXAM: RUQ AND RLQ PAIN TECHNIQUE: ABDOMEN/PELVIS W IV CONT ONLY Coronal and Sagittal reconstruction series were provided. CONTRAST: Isovue 370 VOLUME: 100 mL One or more dose reduction techniques were used (e.g., Automated exposure control, adjustment of the mA and/or kV according to patient size, use of iterative reconstruction technique. RADIATION DOSE SUMMARY: CTDlvol: 23.27+ 15.17 mGy DLP: 725.89 mGycm COMPARISON: None. FINDINGS: The heart is enlarged. Partially visualized bilateral pleural effusions. Anasarca. Degenerative changes of the spine. [id number]-[id number] atherosclerosis. Normal caliber abdominal aorta. Thickening of the right anterior abdominal wall musculature measuring 10.0 x 4.1 cm with internal hyperdensity suspicious for an anterior abdominal wall hematoma with acute interval hemorrhage. Small volume ascites. No suspicious lymphadenopathy. Irregular hepatic surface contour suspicious for cirrhosis. The pancreas, spleen, and adrenals are unremarkable. Bilateral renal cortical atrophy. The urinary bladder is unremarkable. The uterus is unremarkable. Colonic diverticulosis. Normal caliber large and small bowel. CT/Abdomen/Pelvis W IV Cont ONLY IMPRESSION: Anterior abdominal wall musculature hematoma with probable acute internal hemor rhage. Anasarca. Small volume ascites. Probable cirrhotic liver morphology. Cardiomegaly. Bilateral pleural effusions. Colonic diverticulosis. Reading Location: [place] [id number]
--- NOTE | 2025-01-30 20:42 | CT_ITS ---
PROCEDURE: ABDOMEN/PELVIS W IV CONT ONLY 01/30/2025 REASON FOR EXAM: RUQ AND RLQ PAIN TECHNIQUE: ABDOMEN/PELVIS W IV CONT ONLY Coronal and Sagittal reconstruction series were provided. CONTRAST: Isovue 370 VOLUME: 100 mL One or more dose reduction techniques were used (e.g., Automated exposure control, adjustment of the mA and/or kV according to patient size, use of iterative reconstruction technique. RADIATION DOSE SUMMARY: CTDlvol: 23.27+ 15.17 mGy DLP: 725.89 mGycm COMPARISON: None. FINDINGS: The heart is enlarged. Partially visualized bilateral pleural effusions. Anasarca. Degenerative changes of the spine. Orlvgvfx-ld-rrazgh atherosclerosis. Normal caliber abdominal aorta. Thickening of the right anterior abdominal wall musculature measuring 10.0 x 4.1 cm with internal hyperdensity suspicious for an anterior abdominal wall hematoma with acute interval hemorrhage. Small volume ascites. No suspicious lymphadenopathy. Irregular hepatic surface contour suspicious for cirrhosis. The pancreas, spleen, and adrenals are unremarkable. Bilateral renal cortical atrophy. The urinary bladder is unremarkable. The uterus is unremarkable. Colonic diverticulosis. Normal caliber large and small bowel. CT/Abdomen/Pelvis W IV Cont ONLY IMPRESSION: Anterior abdominal wall musculature hematoma with probable acute internal hemor rhage. Anasarca. Small volume ascites. Probable cirrhotic liver morphology. Cardiomegaly. Bilateral pleural effusions. Colonic diverticulosis. Reading Location: [place] [id number]
--- NOTE | 2025-01-30 20:49 | EDS_ITS ---
HPI History of Present Illness Chief Complaint: Shortness of Breath Narrative Narrative: Patient is a 89-year-old female with past medical history of chronic kidney disease, pulmonary hypertension, atrial fibrillation on warfarin, CHF, hypothyroidism who presents to the emergency department with a chief complaint of abdominal pain and shortness of breath. Patient states that she has been following closely with the heart group and they have been making several medication adjustments and attempt to help get fluid off for her. She states that she noted that she has had worsening shortness of breath with exertion and swelling in her legs and she also noted that she developed severe right sided abdominal pain therefore she came here for further evaluation management. She did not feel that she was going to make it through the night. [facility] Medical History Elevated C-reactive protein (CRP) Pain in both upper extremities Hemorrhoid CKD (chronic kidney disease), stage III 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 Longstanding persistent atrial fibrillation Foul smelling urine Hx of fracture of femur Dermatitis Nonrheumatic aortic (valve) stenosis Cystitis Osteoporosis Urinary tract infection with hematuria Vision problems Osteopenia Chronic headaches Cataracts, bilateral UTI (urinary tract infection) Back problem Arthritis Seasonal allergies RBBB DDD (degenerative disc disease) Diverticulosis Pure hypercholesterolemia Anemia Pulmonary hypertension Non-rheumatic mitral regurgitation Nonrheumatic tricuspid valve regurgitation Paroxysmal atrial fibrillation Essential hypertension Hyperlipidemia GERD (gastroesophageal reflux disease) Depression Joint pain Headache Snoring Post-nasal drainage Cough Dyspnea on exertion Anxiety Insomnia due to medical condition Hypothyroidism (acquired) Anticoagulation goal of INR 2 to 3 Hypertension Atrial fibrillation with normal ventricular rate 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 Home Medications ?Medication ?Instructions ?Recorded ?Last Taken ?Type ascorbic acid (vitamin C) 500 mg 500 mg PO DAILY@0800 SUPPLEMENT 01/24/15 08/27/21 History tablet vitamin B comp and C no.3 15 mg-10 1 ea PO DAILY SUPPL EMENT 04/24/15 08/27/21 History mg-50 mg-5 mg-300 mg capsule multivitamin 1 ea PO DAILY VITAMIN 08/27/21 History acetaminophen 500 mg tablet 1,000 mg (2 x 500 mg) PO Q 6H PRN 09/11/21 Unknown Rx PRN Pain Score 1-5 #0 tabs metoprolol tartrate 100 mg tablet 100 mg PO Q12H #180 tabs 05/23/24 Unknown Rx atorvastatin 20 mg tablet 20 mg PO QHS CHOLESTEROL #90 tabs 06/16/24 Unknown Rx alendronate 70 mg tablet See Rx Instructions .Route 1 08/21/23 Unknown Rx .COMPLEX #14 tabs Handicap Placard #1 ea 08/15/24 Unknown Rx spironolactone 25 mg tablet 25 mg PO DAILY #30 tabs Unknown Rx warfarin 3 mg tablet 3 mg PO .COMPLEX #180 tabs 0 09/19/24 Unknown Rx Held on 01/30/25. Instructions: MD Ordered levothyroxine 112 mcg tablet See Rx Instructions .Rout e 09/26/24 Unknown Rx .COMPLEX #90 tabs dapagliflozin propanediol 10 mg 10 mg PO QAM #30 tabs 11/15/24 Unknown Rx tablet (Farxiga) losartan 50 mg tablet 25 mg (1/2 x 50 mg) PO DAILY #90 01/20/25 Unknown Rx tabs Allergy/AdvReac Type Severity Reaction Status Date / Time bee venom protein (honey bee) Allergy Unknown UNKNOWN Verified 01/30/25 19:23 propoxyphene (From Allergy Unknown UNKNOWN Verified 01/30/25 19:23 Darvocet-N) codeine AdvReac Other Verified 01/30/25 19:23 Family History Mother Heart disease High cholesterol Osteoporosis CVA (cerebral vascular accident) Hypertension Father Hypertension Alcohol abuse Sister Asthma Hypertension Thyroid disorder Surgical History History of cataract extraction History of cardioversion (~07/15/22) History of total left knee replacement Status post surgical manipulation of ankle joint Status post total left knee replacement Social History household members: none Smoking Status: Never smoker alcohol intake: never substance use type: does not use what type of physical activity do you participate in: none ROS ROS ED ROS Narrative Constitutional: Denies any fevers, chills, headaches Eyes: Denies change in vision double vision blurred vision Cardiovascular: Denies chest pain or palpitations Respiratory complains of shortness of breath as noted above: Denies coughing wheezing Abdomen: Complains of abdominal pain as noted above denies nausea vomiting diarrhea : Denies urinary symptoms Neurological: Denies any numbness, wheeze, tingling Musculoskeletal: Denies back pain complains of bilateral lower extremity swell ing as noted above Skin: Denies any rashes or lesions EXAM Physical Exam Narrative Exam Narrative: General: Patient is lying in bed rest comfortably do not appear to be acute distress Head: Atraumatic, normocephalic Eyes: PERRL bilaterally, EOMI blood, no conjunctival injection noted Neck: Soft, supple, trachea midline Cardiovascular: Regular rhythm no murmurs gallops rubs noted Respiratory: Clear to auscultation bilaterally Abdomen: Soft, nondistended, tender to palpation the right upper and lower quadrants no rebound or guarding on exam Extremities: Patient has 1+ pitting edema in the bilateral lower extremities, radial pulse +2/4 in bilateral extremities, Neurological: Patient follow commands knew that she was at [facility] year is 2024 Skin: Warm, dry, tact no rashes or lesions noted Const Vital Signs: 01/30/25 19:20 01/30/25 20:05 01/30/25 21:27 Temperature 96.1 F L Temperature Source Temporal Pulse Rate 64 88 Respiratory Rate 18 16 Blood Pressure 126/66 H 103/62 Blood Pressure Mean 86 75 Pulse Ox 94 98 Oxygen Delivery Method Room Air Room Air Room Air 01/30/25 23:00 Temperature Temperature Source Pulse Rate 90 Respiratory Rate 15 Blood Pressure 115/74 Blood Pressure Mean 87 Pulse Ox 98 Oxygen Delivery Method Room Air MDM MDM MDM Narrative Medical decision making narrative: Patient is a 89-year-old female who presents to the Emergency Department chief complaint of abdominal pain as well as dyspnea on exertion. On the differential diagnose occludes but not into CHF exacerbation, pneumonia, ACS, cholecystitis, pancreatitis, appendicitis. Once workup is obtained reviewed she will be reevaluated. Patient will be given 500 cc bolus of IV fluids as well as morphine Zofran. Patient's CBC reviewed showed no evidence leukocytosis white blood count normal at 5.7, hemoglobin stable at 13.5 this was compared to blood draw from earlier today, platelet count normal 173. Patient INR earlier today was noted be 6.7, sodium 132, potassium normal 4.9, creatinine was elevated 1.70 she does have underlying chronic kidney disease. Patient's AST and ALT were 62 and 42 respectively total bilirubin was noted to be 1.67 with a direct bilirubin of 0.71. Patient troponin was 56 with a delta troponin of 51. Patient is EKG showed atrial fibrillation with PVCs with a rate of 80 bpm. Patient's lipase normal at 41, urinalysis showed negative nitrites 100 leukocyte esterase 25-50 white cells with no bacteria seen she does not have any urinary symptoms this will be sent for culture will hold off antibiotics for now. Patient CT abdomen pelvis with IV contrast reviewed and showed anterior abdominal wall musculature hematoma with probable acute internal hemorrhage. Ansa cardia. Small volume ascites. Probable cirrhotic liver morphology. Cardiomegaly bilateral pleural effusions with colonic diverticulosis. I called and spoke with our general surgeon Dr. Machado here and she recommended transfer. Called and discussed case with on-call general surgeon Dr. Haji at [facility] And she states that the patient can go ER to ER. I discussed with ER physician Dr. Rocha who will accept patient for transfer. Patient was notified is agreeable this plan all question concerns answered. Lab Data Labs: Laboratory Results - last 24 hr 01/30/25 01/30/25 01/30/25 19:50 21:15 22:00 WBC 5.7 RBC 4.24 Hgb 13.5 Hct 41.4 MCV 97.6 MCH 31.8 MCHC 32.6 RDW Std Deviation 51.8 H RDW Coeff of Payal 14.5 Plt Count 173 MPV 9.0 Immature Gran % (Auto) 0.300 Neut % (Auto) 66.1 Lymph % (Auto) 15.0 L [place] % (Auto) 15.7 H Eos % (Auto) 2.4 Baso % (Auto) 0.5 Absolute Neuts (auto) 3.8 Absolute Lymphs (auto) 0.86 Nucleated RBC % 0 Sodium 132 L Potassium 4.9 Chloride 99 Carbon Dioxide 20.6 L Anion Gap 13 BUN 37 H Creatinine 1.70 H Estim Creat Clear Calc 23.07 L Est GFR (MDRD) Non-Af 29 L BUN/Creatinine Ratio 21.9 H Glucose 136 H Calcium 9.0 Total Bilirubin 1.67 H Direct Bilirubin 0.71 H AST 62 H ALT 42 H Alkaline Phosphatase 115 H Troponin T High Sens 56 H* Troponin T Hi Sens 2 Hr 51 H Total Protein 6.1 Albumin 3.8 Globulin 2.3 Lipase 41 Urine Color Yellow Urine Clarity Cloudy Urine pH 5.0 Ur Specific [place] 1.015 Urine Protein 100 H Urine Glucose (UA) 1000 H Urine Ketones Negative Urine Occult Blood 25 H Urine Nitrite Negative Urine Bilirubin Negative Urine Urobilinogen Normal Ur Leukocyte Esterase 100 H Urine RBC 0-5 SEEN Urine WBC 25-50 SEEN Ur Squamous Epith Cells 5-10 SEEN Ur Transition Epith Cell 5-10 SEEN Urine Bacteria 0 SEEN Urine Mucus 0 SEEN Radiography Diagnostic Testing: Clinical Impression(s) from Imaging Studies Abdomen/Pelvis CT 01/30/25 20:42 IMPRESSION: Anterior abdominal wall musculature hematoma with probable acute internal hemorrhage. Anasarca. Small volume ascites. Probable cirrhotic liver morphology. Cardiomegaly. Bilateral pleural effusions. Colonic diverticulosis. Reading Location: [id number] Discharge Plan Triage Chief Complaint: Shortness of Breath ED Provider: Car Solomon Dx/Rx/DC Orders Clinical Impression: Abdominal pain, Dyspnea on exertion, Chronic diastolic CHF (congestive heart failure), NYHA class 2, Essential hypertension, Paroxysmal atrial fibrillation, Hypothyroidism (acquired), Renal insufficiency, Hematoma of rectus sheath Prescriptions: No Action ascorbic acid (vitamin C) 500 MG tablet 500 mg PO DAILY@0800 Patient Comments: SUPPLEMENT vitamin B comp and C no.3 1 EACH capsule 1 ea PO DAILY Patient Comments: SUPPLEMENT multivitamin 1 EACH tablet 1 ea PO DAILY acetaminophen 500 mg Tablet 1,000 mg PO Q6H PRN PRN (Reason: Pain Score 1-5) Qty: 0 0RF metoprolol tartrate 100 mg tablet 100 mg PO Q12H Qty: 180 3RF atorvastatin 20 mg tablet 20 mg PO QHS Qty: 90 3RF alendronate 70 mg tablet See Rx Instructions .ROUTE .COMPLEX Qty: 14 0RF Dose Instruction: TAKE 1 TABLET BY MOUTH EVERY WEEK Rx Instructions: TAKE 1 TABLET BY MOUTH EVERY WEEK (DME) Handicap Placard See Rx Instructions .ROUTE .MEDSUPPLY Qty: 1 0RF Rx Instructions: As directed, length of time 3 years spironolactone 25 mg tablet 25 mg PO DAILY Qty: 30 11RF warfarin 3 mg tablet 3 mg PO .COMPLEX Qty: 180 3RF Protocol: Dose Management Condition: Thursday Dose/Route: 7.5 mg Instruction: 2.5 x 3 mg tablets Condition: Thursday Dose/Route: 0 mg Instruction: 0 tablets Condition: Thursday Dose/Route: 0 mg Instruction: 0 tablets Condition: Thursday Dose/Route: 6 mg Instruction: 2 x 3 mg tablets Condition: Dose/Route: 6 mg Instruction: 2 x 3 mg tablets Condition: Thursday Dose/Route: 7.5 mg Instruction: 2.5 x 3 mg tablets Condition: Thursday Dose/Route: 7.5 mg Instruction: 2.5 x 3 mg tablets Protocol Text: Adjustment Start Date: Thursday01/30/25 INR Value: 6.7 INR Date: 01/30/25 Recheck Date: 02/01/25 Rx Instructions: 2 tablets (6mg) daily or as directed levothyroxine 112 mcg tablet See Rx Instructions .ROUTE .COMPLEX Qty: 90 3RF Dose Instruction: TAKE 1 TABLET BY MOUTH DAILY for FOR THYROID Rx Instructions: TAKE 1 TABLET BY MOUTH DAILY for FOR THYROID dapagliflozin propanediol [Farxiga] 10 mg tablet 10 mg PO QAM Qty: 30 11RF losartan 50 mg tablet 25 mg PO DAILY Qty: 90 3RF Primary Care Provider: Agnieszka Fish Referrals: Agnieszka Fish MD [Primary Care Provider] - Print Language: Tajik Disposition Disposition: DC/Tx to Another Type of HCF
[2025-01-30 21:09] LABS: Lipase 41 U/L (13-75)
[2025-01-30 21:20] LABS: AST(SGOT) 62 U/L (<=31); Alanine Aminotransfer ALT/SGPT 42 U/L (<=34); Albumin, Serum 3.8 g/dL (3.4-4.8); Alkaline Phosphatase 115 U/L (35-104); Bilirubin, Direct 0.71 mg/dL (0.00-0.30); Globulin 2.3 g/dL (2.2-4.2)
[2025-01-30 21:22] LABS: Mucous, Urine 0 SEEN /hpf (<or=2+)
[2025-01-30] MEDS: 0.9% Normal Saline (500mL Bag) 500 ML 999 ML IV (21:23)
[2025-01-30 21:27] VITALS: BP 103/62; PULSE 88; RESP 16; O2SAT 98
[2025-01-30 21:29] LABS: Color, Urine Yellow (Yellow); Glucose, Dipstick 1000 mg/dl (Normal); Ketone-Dipstick Negative (Negative); Leukocyte Esterase-Dipstick 100 /ul (Negative); Nitrite-Dipstick Negative (Negative); Occult Blood-Urine 25 /ul (Negative); Protein-Dipstick 100 mg/dl (Negative); Specific Gravity, Urine 1.015 (1.002-1.030); Urine Bilirubin Dipstick Negative (Negative)
[2025-01-30 21:42] LABS: Red Blood Cells-Urine 0-5 SEEN /hpf (0-5)
[2025-01-30 21:43] LABS: Squamous Epithelial Cells - UA 5-10 SEEN /hpf (5-10)
[2025-01-30 21:44] LABS: Transitional Epithelial - Ur 5-10 SEEN /hpf (0-5)
[2025-01-30] MEDS: Phytonadione (Vit K) 10 MG in 0.9% Normal Saline (50mL Bag) 50 ML 150 MG IV (22:20)
[2025-01-30 22:25] LABS: Troponin T High Sens 2 HR 51 ng/L (<=14)
[2025-01-30 23:00] VITALS: BP 115/74; PULSE 90; RESP 15; O2SAT 98
[2025-01-31 00:10] VITALS: BP 109/74; PULSE 91; RESP 20; TEMP 36.7; O2SAT 95
== END 2025-01-31 00:20 | disposition other institution (70) ==
PROVIDERS: Emergency Provider Emergency Medicine; PCP Internal Medicine; Visit Provider Emergency Medicine
DX: R10.9 Unspecified abdominal pain (principal); I27.20 Pulmonary hypertension, unspecified; I50.32 Chronic diastolic (congestive) heart failure; I13.0 Hypertensive heart and chronic kidney disease with heart failure and stage 1 through stage 4 chronic kidney disease, or unspecified chronic kidney disease; I48.0 Paroxysmal atrial fibrillation; N18.30 Chronic kidney disease, stage 3 unspecified; K57.30 Diverticulosis of large intestine without perforation or abscess without bleeding; M79.81 Nontraumatic hematoma of soft tissue; R06.09 Other forms of dyspnea; I49.3 Ventricular premature depolarization; I35.0 Nonrheumatic aortic (valve) stenosis; I34.0 Nonrheumatic mitral (valve) insufficiency; K21.9 Gastro-esophageal reflux disease without esophagitis; F41.9 Anxiety disorder, unspecified; F32.A Depression, unspecified; E03.9 Hypothyroidism, unspecified; M81.0 Age-related osteoporosis without current pathological fracture; E78.00 Pure hypercholesterolemia, unspecified; Z79.01 Long term (current) use of anticoagulants; Z79.899 Other long term (current) drug therapy; Z79.890 Hormone replacement therapy
CPT/HCPCS: 74177; 80048; 80076; 81001; 83690; 84484; 85025; 93005; 96361; 96365; 96366; 96375; 99284; Q9967; A4216; J2405

== ENCOUNTER → 2025-01-30 | Outpatient (CLI) | payer MEDICARE, OTHER, SELFPAY ==
--- NOTE | 2025-01-30 12:33 | RAD_ITS ---
PROCEDURE: CHEST PA AND LATERAL 01/30/2025 REASON FOR EXAM: SHORTNESS OF BREATH, CHF TECHNIQUE: CHEST PA AND LATERAL COMPARISON: 09/18/2022. FINDINGS: The heart is enlarged. Bibasilar linear opacities favoring atelectasis. The lungs are hyperaerated which can suggest COPD. Chronic right rib deformities. RAD/Chest PA and Lateral IMPRESSION: Cardiomegaly. Hyperaerated lungs with can suggest COPD. Probable bibasilar atelectasis. Reading Location: [place] [address]
[2025-01-30 13:38] LABS: Basophil# 0.05 X10^3/uL; Eosinophil# 0.09 X10^3/uL; Eosinophils% 1.8 % (0-5); Hematocrit 42.3 % (37-47); Hemoglobin 13.6 g/dL (12.0-15.0); Mean Corp Hgb Conc 32.2 g/dL (32-36); Mean Corpuscular Hgb 31.6 pg (27.0-32.0); Mean Corpuscular Volume 98.1 fL (81-99); Mean Platelet Vol. 9.3 fl (6.2-12.0); Monocyte# 0.86 X10^3/uL; Monocyte% 17.2 % (0-10); NRBC Flagged by Analyzer 0 % (0-5); Neutrophil # 2.98 X10^3/uL (2.7-7.7); Neutrophil % 59.6 % (47-70); Platelet Count 185 K/mm3 (150-450); RBC Distribution Width CV 14.4 % (11.6-14.6); Red Blood Count 4.31 M/mm3 (4.2-5.4)
[2025-01-30 13:48] LABS: Prothrombin Time (Protime)PT. 59.8 SECONDS (11.7-14.9)
[2025-01-30 14:00] LABS: International Normalized Ratio 6.7
[2025-01-30 14:20] LABS: Anion Gap 12 (5-15); BUN 34 mg/dL (4-19); BUN/Creat Ratio 24.2 RATIO (10-20); Chloride 99 mmol/L (98-108); Creatinine, Serum 1.41 mg/dL (0.70-1.20); EST Glomerular Filtration Rate 36 (>60); Glucose 93 mg/dL (70-99); Potassium 4.6 mmol/L (3.3-5.1); Sodium Level 132 mmol/L (133-145)
[2025-01-30 14:26] LABS: Pro- Brain NATRIURETIC PEPTIDE 1533 pg/mL (<=1800)
== END | disposition home or self-care (01) ==
PROVIDERS: PCP Internal Medicine; Referring Provider Nurse Practitioner Gerontology; Visit Provider Nurse Practitioner Gerontology
DX: I48.11 Longstanding persistent atrial fibrillation (principal); I50.40 Unspecified combined systolic (congestive) and diastolic (congestive) heart failure; I48.19 Other persistent atrial fibrillation; N18.32 Chronic kidney disease, stage 3b; R53.83 Other fatigue; Z79.01 Long term (current) use of anticoagulants; Z79.899 Other long term (current) drug therapy; R06.02 Shortness of breath
CPT/HCPCS: 36415; 71046; 80048; 83880; 84443; 85025; 85610

== ENCOUNTER 2025-02-13 16:06 | Outpatient (RCR) | payer MEDICARE, OTHER, SELFPAY ==
[2025-02-13 16:23] LABS: Hematocrit 34.4 % (37-47); Hemoglobin 11.2 g/dL (12.0-15.0); Mean Corp Hgb Conc 32.6 g/dL (32-36); Mean Corpuscular Volume 100.3 fL (81-99); Mean Platelet Vol. 9.0 fl (6.2-12.0); Platelet Count 251 K/mm3 (150-450); RBC Distribution Width CV 18.8 % (11.6-14.6); RBC Distribution Width SD 63.1 fl (35.1-43.9); Red Blood Count 3.43 M/mm3 (4.2-5.4); White Blood Count 4.7 K/mm3 (4.4-11.0)
[2025-02-13 16:36] LABS: Anion Gap 12 (5-15); BUN 26 mg/dL (4-19); BUN/Creat Ratio 24.9 RATIO (10-20); Calcium,Total 8.4 mg/dL (7.6-11.0); Carbon Dioxide 17.4 mmol/L (21.0-32.0); Chloride 103 mmol/L (98-108); Glucose 122 mg/dL (70-99); Potassium 4.0 mmol/L (3.3-5.1)
== END 2025-03-02 18:00 | disposition home or self-care (01) ==
LOC: HHLAB 16:06
PROVIDERS: PCP Internal Medicine; Referring Provider Internal Medicine; Visit Provider Internal Medicine
DX: M79.81 Nontraumatic hematoma of soft tissue (principal)
CPT/HCPCS: 80048; 85027

== ENCOUNTER → 2025-03-01 | Outpatient (CLI) | payer MEDICARE, OTHER, SELFPAY ==
[2025-03-01 16:23] LABS: Anion Gap 13 (5-15); BUN 29 mg/dL (4-19); BUN/Creat Ratio 24.4 RATIO (10-20); Calcium,Total 9.5 mg/dL (7.6-11.0); Carbon Dioxide 26.2 mmol/L (21.0-32.0); Chloride 92 mmol/L (98-108); Glucose 88 mg/dL (70-99); Potassium 3.5 mmol/L (3.3-5.1)
== END | disposition home or self-care (01) ==
LOC: BIMLAB 12:06
PROVIDERS: Physician Assistant Medical; PCP Internal Medicine; Visit Provider Internal Medicine
DX: N18.32 Chronic kidney disease, stage 3b (principal); I50.40 Unspecified combined systolic (congestive) and diastolic (congestive) heart failure; E87.6 Hypokalemia
CPT/HCPCS: 36415; 80048

== ENCOUNTER → 2025-03-20 | Outpatient (CLI) | payer MEDICARE, OTHER, SELFPAY | END | disposition home or self-care (01) | LOC: LABSPEC 13:41 | PROVIDERS: PCP Internal Medicine; Referring Provider Nurse Practitioner Family; Visit Provider Nurse Practitioner Family | DX: R30.0 Dysuria (principal) | CPT/HCPCS: 87086; 87088; 87186 ==

== ENCOUNTER → 2025-04-09 | Outpatient (CLI) | payer MEDICARE, OTHER, SELFPAY ==
--- OUTSIDE RECORDS SUMMARY | 2025-04-10 07:32 | XMS RPT_ITS | CCD ---
Author Organization [facility] CliniSyar Care Team Providers Care Wheel Roller Name Role Phone DAVINA, SRINATH Unavailable Unavailable TALAMPAS, SHARON Unavailable Unavailable DAVINA, SRINATH Unavailable Unavailable TALAMPAS, SHARON Unavailable Unavailable TALAMPAS, SHARON Unavailable Unavailable DAVINA, SRINATH Unavailable Unavailable TALAMPAS, SHARON Unavailable Unavailable DAVINA, SRINATH Unavailable Unavailable DAVINA, SRINATH Unavailable Unavailable TALAMPAS, SHARON Unavailable Unavailable DAVINA, SRINATH Unavailable Unavailable DAVINA, SRINATH Unavailable Unavailable TALAMPAS, SHARON Unavailable Unavailable Dr. Agnieszka Fish Primary Care Provider [phone] 0) Polina, Dr. Aaron Referring Provider [phone] Dr. Kash Babin Attending Provider [phone]) SANDRA Sequeira Attending Provider Dr. Agnieszka Fish Attending Provider [phone])2 Dr. Agnieszka Fish Primary Care Provider 1(33 0) Dr. Agnieszka Fish Referring Provider [phone])2 Dr. Kash Babin Attending Provider [phone] Dr. Agnieszka Fish Primary Care Provider 1(33 0) Dr. Agnieszka Fish Referring Provider [phone])2 Dr. Agnieszka Fish Primary Care Provider 1(33 0) Dr. Agnieszka Fish Attending Provider [phone])2 Dr. Agnieszka Fish Referring Provider [phone])2 SANDRA Sequeira Attending Provider Dr. Agnieszka Fish Primary Care Provider 1(33 0) Dr. Agnieszka Fish Referring Provider [phone] SANDRA Sequeira Attending Provider Dr. Sheldon Huntley Attending Provider [phone] SANDRA Crandall Attending Provider Unavail beatriz Pillai PROPERTY ASSISTANT, PROPERTY ASSISTANT-C Tammie Referring Provider Dr. Kash Babin Attending Provider 1(330) Dr. Kash Babin Referring Provider 1(330) Dr. Kash Babin Other Provider [phone] Dr. Casey Rod Attending Provider [phone] Dr. Agnieszka Fish Attending Provider [phone])2 Dr. Agnieszka Fish Primary Care Provider 1(33 0) Dr. Agnieszka Fish Referring Provider [phone] Wendy PROPERTY ASSISTANT, PROPERTY ASSISTANT-C Tyler Attending Provider 1(330) Dr. Agnieszka Fish Primary Care Provider 1(33 0) Dr. Agnieszka Fish Referring Provider [phone])2 Dr. Kash Babin Attending Provider 1(330) Dr. Kash Babin Referring Provider 1(330) Dr. Kash Babin Other Provider [phone] Dr. Casey Rod Attending Provider [phone] Dr. Agnieszka Fish Attending Provider [phone])2 Wendy PROPERTY ASSISTANT, PROPERTY ASSISTANT-C Tyler Attending Provider 1(330) SANDRA Sequeira Attending Provider Dr. Agnieszka Fish Primary Care Provider 1(33 0) Dr. Agnieszka Fish Referring Provider [phone])2 Dr. Michael Salvador Attending Provider [phone] Dr. Agnieszka Fish Primary Care Provider 1(33 0) Polina, Dr. Aaron Referring Provider [phone])2 Polina, Dr. Aaron Attending Provider [phone])2 Dr. Agnieszka Fish Primary Care Provider 1(33 0) Polina, Dr. Aaron Referring Provider [phone])2 SANDRA Sequeira Attending Provider Polina, Dr. Aaron Primary Care Provider 1(33 0) Polina, Dr. Aaron Referring Provider [phone])2 Polina, Dr. Aaron Primary Care Provider 1(33 0) Polina, Dr. Aaron Attending Provider [phone])2 Polina, Dr. Aaron Referring Provider [phone])2 SANDRA Sequeira Attending Provider Dr. Michael Salvador Attending Provider [phone] Dr. Agnieszka Fish Primary Care Provider 1(33 0) Dr. Agnieszka Fish Attending Provider [phone])2 Dr. Agnieszka Fish Referring Provider [phone])2 SANDRA Sequeira Attending Provider Dr. Michael Salvador Attending Provider [phone])- Dr. Michael Salvador Referring Provider [phone] Dr. Agnieszka Fish Primary Care Provider 1(33 0) Dr. Agnieszka Fish Referring Provider [phone])2 SANDRA Sequeira Attending Provider SANDRA Sequeira Referring Provider SANDRA Sequeira Other Provider 1(33 0) Dr. Casey Rod Attending Provider Srinath Alba Unavailable Modesto KIM, Michael S Unavailable Danny Edmond MD Unavailable Polina KIM, Agnieszka Quintanilla Primary Care Provider [phone]) Agnieszka Fish MD Primary Care Provider [phone] DANNY EDMOND Referring Unavailable OLEGHE, EFEWONGBE B Primary Care Unavailable DANNY EDMOND Referring Unavailable OLEGHE, EFEWONGBE B Primary Care Unavailable RENO DUKES Attending Unavailable DANNY EDMOND Referring Unavailable OLEGHE, EFEWONGBE B Primary Care Unavailable DANNY EDMOND Referring Unavailable OLEGHE, EFEWONGBE B Primary Care Unavailable PENNY LLOYD Referring Unavailable DANNY EDMOND Attending Unavailable OLEGHE, EFEWONGBE B Primary Care Unavailable Polina KIM, Dr. Aaron Primary Care Provider Eun Sequeira Attending Provider 1(33 0) Eun Sequeira Referring Provider 1(33 0) Dr. Agnieszka Fish MD Attending Provider 1(33 0) Dr. Agnieszka Fish MD Referring Provider 1(33 0) Dr. Agnieszka Fish MD Primary Care Provider Eun Sequeira Attending Provider 1(33 0) Eun Sequeira Referring Provider 1(33 0) Dr. Agnieszka Fish MD Referring Provider 1(33 0) Dr. Agnieszka Fish MD Primary Care Provider Eun Sequeira Attending Provider [phone] Eun Sequeira Referring Provider 1(33 0) Tammie Neff Attending Provider [phone] Tammie Neff Referring Provider [phone] Dr. Car Solomon DO Emergency Provider LISA FISH Attending Unavaila ble POLINA, ELINAEWONGBE B Primary Care Unavailable ICKES II, ARNOLDO Admitting Unavailable ADELIA SAGASTUME Consulting Unavailable Polina KIM, Dr. Aaron Primary Care Provider Polina KIM, Dr. Aaron Referring Provider 1(33 0) Eun Sequeira Attending Provider [phone] Eun Sequeira Referring Provider [phone] Tammie Neff Attending Provider [phone] Tammie Neff Referring Provider Dr. Car Solomon DO Attending Provider Dr. Car Solomon DO Emergency Provider Polina KIM, Dr. Aaron Attending Provider 1(33 0) Ungzohaib PROPERTY ASSISTANT-C, Carla Attending Provider [phone] Polina KIM, Dr. Aaron Primary Care Provider Eun Sequeira Attending Provider 1(33 0) Dr. Agnieszka Fish MD Referring Provider 1(33 0) Dr. Agnieszka Fish MD Primary Care Provider Eun Sequeira Attending Provider [phone] 0) Eun Sequeira Referring Provider [phone] Madyson PROPERTY ASSISTANT-C, Carla Referring Provider [phone] Agnieszka Fish Attending Unavailable Oleghe, Efewongbe Primary Care Unavailable Olealexxe, Efewongbe Referring Unavailable Eun Sequeira Referring Unavail able Eun Sequeira Attending Unavail able Delmae, Efewongbe Primary Care Unavailable Eun Sequeira Referring Unavail able Oleghe, Efewongbe Primary Care Unavailable Eun Sequeira Attending Unavail able Eun Sequeira Referring Unavail able Eun Sequeira Attending Unavail able Oleghe, Efewongbe Primary Care Unavailable Oleghe, Efewongbe Primary Care Unavailable Eun Sequeira Referring Unavail able Eun Sequeira Attending Unavail able Eun Sequeira Referring Unavail able Eun Sequeira Attending Unavail able Oleghe, Efewongbe Primary Care Unavailable Rosas PROPERTY ASSISTANT, Tammie Referring Unavailable Rosas PROPERTY ASSISTANT, Tammie Attending Unavailable Oleghe, Efewongbe Primary Care Unavailable Eun Sequeira Referring Unavail able Eun Sequeira Attending Unavail able Oleghe, Efewongbe Primary Care Unavailable Oleghe OLS, Efewongbe Attending Unavailabl e Oleghe, Efewongbe Primary Care Unavailable Jennifererer Carla Referring Unavailable Oleghe, Efewongbe Primary Care Unavailable Carla Coughlin Attending Unavailable Oleghe, Efewongbe Referring Unavailable Oleghe, Efewongbe Attending Unavailable Oleghe, Efewongbe Primary Care Unavailable Dheeraj Rene NP Consulting Unavailable Eun Sequeira Referring Unavail able Eun Sequeira Attending Unavail able Oleghe, Efewongbe Primary Care Unavailable Oleghe, Efewongbe Consulting Unavailable Penny Richards Consulting Unavailable Oleghe, Efewongbe Primary Care Unavailable Eun Sequeira Referring Unavail able Eun Sequeira Attending Unavail able Oleghe, Efewongbe Referring Unavailable Oleghe, Efewongbe Primary Care Unavailable Eun Sequeira Attending Unavail able Oleghe, Efewongbe Primary Care Unavailable Oleghe, Efewongbe Referring Unavailable Oleghe, Efewongbe Attending Unavailable Oleghe, Efewongbe Primary Care Unavailable Oleghe, Efewongbe Referring Unavailable Jennifererer Carla Attending Unavailable Oleghe, Efewongbe Attending Unavailable Oleghe, Efewongbe Referring Unavailable Oleghe, Efewongbe Primary Care Unavailable Oleghe, Efewongbe Primary Care Unavailable Eun Sequeira Referring Unavail able Eun Sequeira Attending Unavail able Oleghe, Efewongbe Primary Care Unavailable Lloyd PA, Eun M Attending Unavail able Prema FLORES, Eun Gee Referring Unavail able Eun Sequeira Referring Unavail able Eun Sequeira Attending Unavail able Oleghe, Efewongbe Primary Care Unavailable Car Solomon Attending Unavailable Oleghe, Efewongbe Primary Care Unavailable Oleghe, Efewongbe Primary Care Unavailable Oleghe, Efewongbe Referring Unavailable Carla Coughlin Attending Unavailable Oleghe, Efewongbe Primary Care Unavailable Oleghe, Efewongbe Referring Unavailable Eun Sequeira Attending Unavail able Oleghe, Efewongbe Referring Unavailable Eun Sequeira Attending Unavail able Oleghe, Efewongbe Primary Care Unavailable Oleghe, Efewongbe Attending Unavailable Oleghe, Efewongbe Primary Care Unavailable Oleghe, Efewongbe Referring Unavailable Oleghe, Efewongbe Attending Unavailable Oleghe, Efewongbe Primary Care Unavailable Oleghe, Efewongbe Attending Unavailable Oleghe, Efewongbe Referring Unavailable Oleghe, Efewongbe Primary Care Unavailable Oleghe Dr. Agnieszka KIM Primary Care Provider Eun Sequeira Attending Provider Eun Sequeira Referring Provider [facility] Dheeraj YARBROUGH Attending Provider [phone] Allergies Allergy Classification Reported Allergen(s) Allergy Type Date of Onset Reaction(s) Facility (4 sources) Bee; Translations: [BEES] Propensity to adverse reactions (disorder) 5 [facility] Repository (20 sources) codeine; Translations: [CODEINE] Drug Allergy 5 Hives [facility] Repository (8 sources) PROPOXYPHENE N-ACETAMINOPHEN; Translations: [PROPOXYPHENE N-ACETAMINOPHEN] Propensity to adverse reactions (disorder) 5 Intolerance [facility] Repository (2 sources) OTHER; Translations: [OTHER] Propensity to adverse reactions (disorder) 5 [facility] Repository (20 sources) Propoxyphene Drug Allergy 2 UNKNOWN [facility] (20 sources) bee venom protein (honey bee) Allergy to substance 2 UNKNOWN [facility] (2 sources) Environmental [Other] Propensity to adverse reactions 5 [facility] (1 source) VENOM-HONEY BEE; Translations: [VENOM-HONEY BEE] Propensity to adverse reactions to drug (disorder) 5 [facility] Other [place] [facility] (1 source) Propoxyphene Drug Allergy 5 [facility] Repository (1 source) bee venom protein (honey bee) Drug allergy (disorder) 5 [facility] Repository Medications Current Medications Medication Drug Class(es) Dates Sig (Normalized) Sig (Original) acetaminophen 500 mg oral tablet (20 sources) Start: 09-11-2021 Start: 09-11-2021 take 1000 mg by mout h every six hours as needed Acetaminophen Active 1000 MG PO EVERY 6 HOURS NEEDED 0 September 11, 2021 1:00am Start: 09-03-2021 End: 09-11-2021 Start: 01-24-2015 End: 05-09-2015 Start: 01-24-2015 End: 05-09-2015 take 2 tablets by mouth once daily Acetaminophen (Tylenol) 325 MG tablet Discontinued 650 mg PO DAILY January 24, 2015 12:00am May 09, 2015 12:32pm apixaban 5 mg oral tablet (18 sources) Factor Xa Inhibitor Start: 02-09-2025 End: 02-09-2025 B COMPLEX TAB (5 sources) Start: 06-23-2005 take 1 tablet by mouth once daily B COMPLEX TAB Take 1 tablet by mouth once daily. 0 06/23/2005 Active Start: 06-23-2005 B COMPLEX TAB Take one(1) tablet daily. 0 06/23/2005 Active cholecalciferol 0.05 mg oral capsule (1 source) Vitamin D take 1 capsule by mouth once daily Cholecalciferol, Vitamin D3, (VITAMIN D-3) 50 mcg (2,000 unit) cap Take 4,000 Units by mouth once daily. 0 Active chondroitin sulfates 400 mg / glucosamine hydrochloride 500 mg oral capsule (5 sources) Start: 6 GLUCOSAMINE CHONDROITIN MAXSTR 500 MG-400 MG CAP Take two (2) tablet three times daily. 0 05/28/2006 Active Compress.Stocking,Knee,Re g,Lrg (20 sources) Start: 0 Compress.Stocking,Knee,Re g,Lrg Active 0 .ROUTE .MEDSUPPLY 2 May 02, 2020 9:38am wear daily for venous insufficiency 20-30 mmHg Start: 05-02-2020 Compress.Stock ing,Knee,Reg,Lrg Active 0 .ROUTE .MEDSUPPLY 2 May 01, 2020 11:00pm wear daily for venous insufficiency 20-30 mmHg Start: 05-02-2020 Compress.Stock ing,Knee,Reg,Lrg Active 0 .ROUTE .MEDSUPPLY 2 May 02, 2020 12:00am wear daily for venous insufficiency 20-30 mmHg dapagliflozin 10 mg oral tablet (14 sources) Sodium-Glucose Cotransporter 2 Inhibitor Start: 11-15-2024 Folic Acid (1 source) take 400 ug by mouth once daily FOLIC ACID ORAL Take 400 mcg by mouth once daily. 0 Active furosemide 20 mg oral tablet (20 sources) Loop Diuretic Start: 02-16-2025 End: 03-20-2025 Start: 10-16-2021 End: 04-10-2022 take 1 tablet by mouth in the evening Furosemide 20 mg tablet Discontinued 20 mg PO .COMPLEX 270 3 October 21, 2021 2:04pm April 10, 2022 10:39am FLUID 20 mg PO TAKE 2 TABLETS BY MOUTH IN THE MORNING and ONE TABLET IN THE EVENING; Start: 10-14-2017 End: 03-18-2024 Start: 10-14-2017 End: 01-19-2018 Start: 10-14-2017 End: 12-24-2023 Start: 10-14-2017 End: 08-19-2019 take 1 tablet by mouth once daily in the evening Furosemide (Lasix) 20 mg tablet Discontinued 20 mg PO EVERY EVENING January 19, 2018 12:00am August 19, 2019 6:04pm Handicap Placard (20 sources) Start: 08-15-[address] Active 0 .ROUTE .MEDSUPPLY 1 0 August 15, 2024 4:14pm Other reduced mobility As directed, length of time 3 years Start: 08-15-[address] Active 0 .ROUTE .MEDSUPPLY 1 August 15, 2024 4:14pm As directed, length of time 3 years Start: 10-08-[address] Active 0 .ROUTE .MEDSUPPLY October 08, 2021 12:42pm As directed, length of time 3 years Start: 10-08-2021 End: 08-15-2024 Handicap Placard Discontinue d 0 .ROUTE .MEDSUPPLY 1 0 October 08, 2021 1:00am August 15, 2024 4:14pm Other reduced mobility As directed, length of time 3 years Start: 10-08-2021 End: 08-15-2024 Handicap Placard Discontinue d 0 .ROUTE .MEDSUPPLY 1 October 08, 2021 1:00am August 15, 2024 4:14pm As directed, length of time 3 years Start: 10-08-[address] Active 0 .ROUTE .MEDSUPPLY 1 October 08, 2021 12:00am As directed, length of time 3 years Start: 10-08-[address] Active 0 .ROUTE .MEDSUPPLY October 08, 2021 1:00am As directed, length of time 3 years metoprolol tartrate 100 mg o ral tablet (20 sources) beta-Adrenergic Jhonny Start: 09-29-2023 End: 03-28-2025 Start: 12-17-2021 End: 09-29-2023 Start: 12-17-2021 End: 09-29-2023 Start: 12-17-2021 End: 09-29-2023 Start: 04-06-2019 End: 12-17-2021 Start: 04-06-2019 End: 11-14-2021 Start: 04-06-2019 End: 12-17-2021 Metoprolol Succinate 25 mg t ablet extended release 24 hr Discontinued 50 mg PO DAILY December 17, 2021 4:38pm December 17, 2021 4:39pm BP, HR Start: 12-21-2017 End: 12-17-2021 take 50 mg by mouth once daily Metoprolol Succinate Di scontinued 50 MG PO DAILY December 17, 2021 4:38pm December 17, 2021 4:39pm Start: 01-24-2015 End: 03-01-2019 Start: 01-24-2015 End: 03-01-2019 Start: 01-24-2015 End: 12-24-2023 take 1 tablet by mouth once daily Metoprolol Succinate 25 mg tablet extended release 24 hr Discontinued 25 mg PO DAILY November 14, 2021 5:35pm December 17, 2021 4:39pm BP, HR take 1 tablet by saulo th twice daily metoprolol tartrate, short acting, (LOPRESSOR) 100 mg tablet Take 100 mg by mouth two times a day. 0 Active take 1 tablet by saulo th once daily metoprolol tartrate, short acting, (LOPRESSOR) 100 mg tablet Take 100 mg by mouth once daily. 0 Active Multivitamin 1 EACH tablet (6 sources) Start: 10-14-2017 Multivitamin 1 EACH tablet Active 1 NMA PO DAILY October 14, 2017 12:00am VITAMIN Start: 10-14-2017 Multivitamin 1 EACH tablet Active 1 NMA PO DAILY October 14, 2017 12:00am Multivitamin preparation (20 sources) Start: 10-14-2017 Multivitamin A ctive 1 EACH PO DAILY October 14, 2017 2:39pm Start: 10-14-2017 Multivitamin A ctive 1 EACH PO DAILY October 13, 2017 11:00pm Start: 10-14-2017 Multivitamin A ctive 1 EACH PO DAILY October 14, 2017 12:00am MULTIVITAMIN TAB (5 sources) Start: 06-23-2005 MULTIVITAMIN T AB Take one(1) tablet daily. 0 06/23/2005 Active nitrofurantoin, macrocrystals 25 mg / nitrofurantoin, monohydrate 75 mg oral capsule (20 sources) Nitrofuran Antibacterial Start: 04-09-2025 Start: 03-20-2025 End: 03-25-2025 Start: 05-25-2019 End: 06-14-2019 Btkdy-0-KAG-EPA-Fish Oil (FISH OIL) 1,000 mg (120 mg-180 mg) cap (1 source) take 1 capsule by mouth twice daily Mqgxj-8-GHU-EPA-Fish Oil (FISH OIL) 1,000 mg (120 mg-180 mg) cap Take 2 g by mouth two times a day. 0 Active spironolactone 25 mg oral tablet (20 sources) Aldosterone Antagonist Start : 11-09 End: 09-13 Vitamin B Comp And C No.3 (20 sources) Start : 04-24 Vitamin B Comp And C No.3 Active 1 EACH PO DAILY April 24, 2015 1:40pm Start: 04-24-2015 Vitamin B Comp And C No.3 Active 1 EACH PO DAILY April 23, 2015 11:00pm Start: 04-24-2015 Vitamin B Comp And C No.3 Active 1 EACH PO DAILY April 24, 2015 12:00am Vitamin B Comp And C No.3 1 EACH capsule (6 sources) Start: 04-24-2015 take 1 capsule by mouth once daily Vitamin B Comp And C No.3 1 EACH capsule Active 1 NMA PO DAILY April 24, 2015 12:00am SUPPLEMENT Start: 04-24-2015 take 1 capsule by mo [facility] once daily Vitamin B Comp And C No.3 1 EACH capsule Active 1 NMA PO DAILY April 24, 2015 12:00am vitamin b12 1 mg oral tablet (1 source) Vitamin B12 take 1 tablet by mouth once daily cyanocobalamin (VITAMIN B-12) 1,000 mcg tab Take 1,000 mcg by mouth once daily. 0 Active Completed/Discontinued Medications Medication Drug Class(es) Dates Sig (Normalized) Sig (Original) acetaminophen 325 mg / HYDROcodone bitartrate 5 mg oral tablet (20 sources) Opioid Agonist Start: 05-09-2015 End: 05-17-2015 Start: 05-09-2015 End: 05-17-2015 Hydrocodone-Acetaminophen 1 TABLET tablet Discontinued 1 - 2 {tbl} PO EVERY 4 HOURS NEEDED as needed for Mild-Mod Pain (1-5/10) 90 0 May 09, 2015 12:00am May 17, 2015 1:08pm Start: 05-09-2015 End: 05-17-2015 take 1 tablet by mouth every four hours as needed Hydrocodone-Acetaminophen Discontinued 1 - 2 TABLET PO EVERY 4 HOURS NEEDED 90 May 09, 2015 12:00am May 17, 2015 1:08pm alendronic acid 70 mg oral t ablet (20 sources) Bisphosphonate Start: 09-24-2021 End: 06-21-2024 Start: 09-24-2021 End: 07-02-2022 Alendronate 70 mg tablet Dis continued NMA PO September 24, 2021 1:00am July 02, 2022 11:56pm Start: 03-11-2019 End: 08-28-2021 amiodarone hydrochloride 200 mg oral tablet (20 sources) Antiarrhythmic Start: 05-20-2022 End: 07-21-2023 Start: 05-20-2022 End: 07-21-2023 Start: 05-20-2022 End: 07-21-2023 Amiodarone 200 mg tablet Discontinued 100 mg PO DAILY 45 March 27, 2023 12:58pm July 21, 2023 11:47am Dose decreased Start: 10-01-2021 End: 05-20-2022 Start: 04-06-2019 End: 10-01-2021 Start: 04-06-2019 End: 10-01-2021 Start: 04-06-2019 End: 10-01-2021 Start: 01-13-2019 End: 03-01-2019 Start: 01-13-2019 End: 03-01-2019 Start: 01-13-2019 End: 03-01-2019 Start: 08-13-2018 End: 12-24-2023 take 0.5 tablet by mouth once daily amiodarone (PACERONE) 200 mg tablet Take 0.5 tablets by mouth once daily. 90 tablet 3 08/13/2018 12/24/2023 Discontinued Start: 07-07-2017 End: 01-13-2019 amLODIPine 5 mg oral tablet (20 sources) Dihydropyridine Calcium Channel Jhonny Start: 10-01-2021 End: 09-29-2023 Start: 01-07-2021 End: 10-01-2021 Start: 01-07-2021 End: 10-01-2021 Start: 01-07-2021 End: 10-01-2021 Start: 01-07-2021 End: 10-01-2021 Start: 01-07-2021 End: 09-03-2021 take 1 tablet by mouth once daily Amlodipine 10 mg tablet Discontinued 10 mg PO DAILY 90 March 01, 2021 11:15am September 03, 2021 3:47pm Start: 06-11-2020 End: 01-07-2021 Start: 10-14-2017 End: 06-11-2020 Start: 10-14-2017 End: 06-11-2020 Start: 10-14-2017 End: 12-24-2023 take 1 tablet by mouth once daily Amlodipine 2.5 mg tablet Discontinued 2.5 mg PO DAILY 90 4 October 14, 2019 8:22am May 23, 2020 3:41pm ascorbic acid 500 mg oral ta blet (20 sources) Vitamin C Start: 12-18-2009 End: 02-22-2025 Start: 12-18-2009 ascorbic acid( VITAMIN C 500 MG TAB) Take 1,000 mg by mouth daily at bedtime. 0 12/18/2009 Active aspirin 81 mg delayed releas e oral tablet (20 sources) Platelet Aggregation Inhibitor, Nonsteroidal Anti-inflammatory Drug Start: 04-30-2010 End: 03-18-2024 atorvastatin 20 mg oral tablet (20 sources) HMG-CoA Reductase Inhibitor Start: 10-14-2017 End: 06-16-2024 benzonatate 100 mg oral capsule (20 sources) Non-narcotic Antitussive Start: 09-18-2022 End: 01-23-2023 Start: 04-26-2019 End: 05-25-2019 Start: 04-26-2019 End: 05-25-2019 take 2 capsules by mouth three times daily as needed for cough Benzonatate (Tessalon Perles) 100 mg capsule Discontinued 200 mg PO THREE TIMES A DAY as needed for cough 60 0 April 26, 2019 12:00am May 25, 2019 12:04pm betamethasone 1 mg/ml topica l cream (20 sources) Corticosteroid Start: 01-11-2014 End: 09-24-2021 calcium carbonate 1500 mg / cholecalciferol 200 unt oral tablet (20 sources) Vitamin D Start: 09-03-2021 End: 09-24-2021 Start: 09-03-2021 End: 09-24-2021 Calcium Carbonate-Vitamin D3 600 mg-5 mcg (200 unit) Tablet Discontinued 1 {tbl} PO TWICE A DAY September 03, 2021 1:00am September 24, 2021 1:02pm CALCIUM Start: 09-03-2021 End: 09-24-2021 take 1 tablet by mouth twice daily Calcium Carbonate-Vitamin D3 Discontinued 1 TABLET PO TWICE A DAY September 03, 2021 1:00am September 24, 2021 1:02pm Start: 06-23-2005 CALCIUM + D 60 0 MG-200 UNIT TAB Take one(1) tablet two(2) times daily. 0 06/23/2005 Active cephalexin 500 mg oral capsu le (20 sources) Cephalosporin Antibacterial Start: 02-23-2025 End: 03-20-2025 Start: 10-11-2021 End: 02-07-2022 Start: 09-02-2019 End: 09-12-2019 Start: 09-02-2019 End: 09-12-2019 take 1 capsule by mouth every twelve hours Cephalexin 500 mg capsule Discontinued 500 mg PO Q12H 20 10 0 September 02, 2019 1:00am September 11, 2019 1:00am September 12, 2019 1:08am Start: 04-26-2019 End: 05-25-2019 COMPOUNDED PRESCRIPTION (3 sources) Start: 04-05-2017 End: 12-24-2023 COMPOUNDED PRESCRIPTION 1 bret x of non-adherent 4x4 gauze pads 1 Box 0 04/05/2017 12/24/2023 Discontinued Start: 04-05-2017 COMPOUNDED PRE SCRIPTION 1 box of non-adherent 4x4 gauze pads 1 Box 0 04/05/2017 Active Compress.Stocking,Knee,Reg,L rg misc (6 sources) Start: 05-02-2020 End: 01-05-2025 Compress.Stocking,Knee,Reg,L rg misc Discontinued 0 .ROUTE .MEDSUPPLY 2 May 02, 2020 12:00am January 05, 2025 9:33am Venous insufficiency (chronic) (peripheral) wear daily for venous insufficiency 20-30 mmHg Start: 05-02-2020 End: 01-05-2025 Compress.Stocking,Knee,Reg,L rg misc Discontinued 0 .ROUTE .MEDSUPPLY May 02, 2020 12:00am January 05, 2025 9:33am wear daily for venous insufficiency 20-30 mmHg Start: 05-02-2020 Compress.Stock ing,Knee,Reg,Lrg misc Active 0 .ROUTE .MEDSUPPLY May 02, 2020 12:00am wear daily for venous insufficiency 20-30 mmHg 24 hr dilTIAZem hydrochlorid e 120 mg extended release oral capsule (20 sources) Calcium Channel Jhonny Start: 12-02-2023 End: 01-30-2025 take 1 capsule by mouth once haylee ly dilTIAZem ER (CARDIZEM SR) 120 mg 12 hr capsule Take 120 mg by mouth once daily. Takes midday 0 Active docusate sodium 100 mg oral capsule (20 sources) Start: 09-03-2021 End: 12-24-2023 empagliflozin 10 mg oral tab let (20 sources) Sodium-Glucose Cotransporter 2 Inhibitor Start: 11-10-2023 End: 11-15-2024 estradiol 0.1 mg/ml vaginal cream (20 sources) Estrogen Start: 09-03-2021 End: 09-11-2021 Start: 01-11-2019 End: 04-06-2019 Start: 01-24-2015 End: 07-05-2018 Start: 10-10-2008 End: 12-24-2023 Estradiol (Estrace) 0.01 % ( 0.1 mg/gram) Cream Discontinued 1 g VAGINAL EVERY WEEK September 03, 2021 1:00am September 11, 2021 8:35pm ESTRACE ferrous sulfate 325 mg oral tablet (20 sources) Start: 10-14-2017 End: 07-05-2018 Jrzfogbk-Bujxwf-Dmt9- D3-C-Antelmo (Glucosamine-Chondr Complx Cplt) 1 EACH tablet (20 sources) Start: 01-24-2015 End: 05-09-2015 take 1 tablet by mouth three times daily Sdkpofjn-Wxikso-Xpz6-D3-C -Antelmo (Glucosamine-Chondr Complx Cplt) 1 EACH tablet Discontinued 1 EACH PO THREE TIMES A DAY January 24, 2015 11:55pm May 09, 2015 12:32pm Start: 01-24-2015 End: 05-09-2015 take 1 tablet by mouth three times daily Jymmupnz-Aveidu-Fih2-D3-C-Antelmo (Glucosamine-Chondr Complx Cplt) 1 EACH tablet Discontinued 1 NMA PO THREE TIMES A DAY January 24, 2015 12:00am May 09, 2015 12:32pm Start: 01-24-2015 End: 05-09-2015 take 1 tablet by mouth three times daily Farrrlql-Gfephu-Lfy3-D3-C-Antelmo (Glucosamine-Chondr Complx Cplt) 1 EACH tablet Discontinued 1 EACH PO THREE TIMES A DAY January 23, 2015 11:00pm May 09, 2015 11:32am Start: 01-24-2015 End: 05-09-2015 take 1 tablet by mouth three times daily Qdayojfe-Gvoioo-Nts2-D3-C-Antelmo (Glucosamine-Chondr Complx Cplt) 1 EACH tablet Discontinued 1 EACH PO THREE TIMES A DAY January 24, 2015 12:00am May 09, 2015 12:32pm Fbbliocryol-Djjttonfb-Zwm C- Mn (20 sources) Start: 10-14-2017 End: 09-11-2021 Glnyhbvbfei-Lhhmhvvtv-Nrq C- Mn Discontinued 2 EACH PO THREE TIMES A DAY October 14, 2017 2:39pm September 11, 2021 8:35pm Start: 10-14-2017 End: 09-11-2021 Adbrsiyvpnl-Zzxfjavjh-Sid C- Mn Discontinued 2 EACH PO THREE TIMES A DAY October 13, 2017 11:00pm September 11, 2021 7:35pm Start: 10-14-2017 End: 09-11-2021 Lbiuhaqwzaw-Yiqjjboyf-Pin C- Mn Discontinued 2 EACH PO THREE TIMES A DAY October 14, 2017 12:00am September 11, 2021 8:35pm Klasgoiiluq-Ascnzdwlm-Phf C-Mn 1 EACH capsule (6 sources) Start: 10-14-2017 End: 09-11-2021 take 1 capsule by mouth three times daily Myukhmcoois-Kwalifsaa-Qcg C-Mn 1 EACH capsule Discontinued 2 NMA PO THREE TIMES A DAY October 14, 2017 12:00am September 11, 2021 8:35pm SUPPLEMENT Start: 10-14-2017 End: 09-11-2021 take 1 capsule by mouth three times daily Nrjavkozzks-Cpsfxeuxy-Mji C-Mn 1 EACH capsule Discontinued 2 NMA PO THREE TIMES A DAY October 14, 2017 12:00am September 11, 2021 8:35pm levothyroxine sodium 0.112 m g oral tablet (20 sources) l-Thyroxine Start: 07-16-2023 End: 09-26-2024 Start: 06-15-2018 End: 12-24-2023 Start: 01-24-2015 End: 01-11-2019 Start: 01-24-2015 End: 01-11-2019 take 100 ug by mouth once daily Levothyroxine Discontinued 100 MCG PO DAILY January 24, 2015 12:00am January 11, 2019 11:04am losartan potassium 50 mg ora l tablet (20 sources) Angiotensin 2 Receptor Jhonny Start: 09-05-2019 End: 02-22-2025 Start: 09-05-2019 End: 01-20-2025 Losartan 50 mg tablet Active 25 mg PO DAILY 90 3 January 20, 2025 11:26am Start: 10-15-2017 End: 08-19-2019 Start: 10-15-2017 End: 01-20-2025 take 1 tablet by mouth once daily Losartan 50 mg tablet Discontinued 50 mg PO DAILY 90 3 March 21, 2024 9:15am January 20, 2025 11:26am magnesium oxide 400 mg oral tablet (20 sources) Start: 10-14-2017 End: 07-05-2018 metOLazone 5 mg oral tablet (9 sources) Thiazide-like Diuretic Start: 02-22-2025 End: 03-20-2025 mupirocin 0.02 mg/mg topical ointment (20 sources) RNA Synthetase Inhibitor Antibacterial Start: 07-05-2018 End: 01-28-2019 Quyse-1o-Gbc-Epa- Fish Oil-D3 (20 sources) Start: 01-24-2015 End: 07-05-2018 take 1 capsule by mouth once daily Hnqjg-0m-Hoo-Epa-F shaan Oil-D3 Discontinued 1 CAP PO DAILY January 24, 2015 11:55pm July 05, 2018 10:17am Start: 01-24-2015 End: 07-05-2018 take 1 capsule by mouth once daily Amzyb-2b-Pgp-Epa-Fish Oil-D3 Discontinued 1 CAP PO DAILY January 23, 2015 11:00pm July 05, 2018 9:17am Start: 01-24-2015 End: 07-05-2018 take 1 capsule by mouth once daily Tfnlr-7v-Dfy-Epa-Fish Oil-D3 Discontinued 1 CAP PO DAILY January 24, 2015 12:00am July 05, 2018 10:17am Rytbu-4g-Akn-Epa-Fish Oil-D3 1 EACH capsule (6 sources) Start: 01-24-2015 End: 07-05-2018 take 1 capsule by mouth once daily Ivvft-4c-Boy-Epa-Fish Oil-D3 1 EACH capsule Discontinued 1 NMA PO DAILY January 24, 2015 12:00am July 05, 2018 10:17am omeprazole 40 mg delayed release oral capsule (20 sources) Proton Pump Inhibitor Start: 01-24-2015 End: 12-24-2023 oxyCODONE hydrochloride 5 mg oral tablet (20 sources) Opioid Agonist Start: 09-03-2021 End: 12-24-2023 take 1 tablet by mouth every six hours as needed oxyCODONE IR (ROXICODONE) 5 mg immediate release tablet Indications: Other closed fracture of distal end of left femur, initial encounter ([facility]) Take 1 tablet by mouth every 6 hours as needed. 3 tablet 0 09/03/2021 12/24/2023 Discontinued Start: 09-03-2021 End: 09-11-2021 pantoprazole 40 mg delayed r elease oral tablet (20 sources) Proton Pump Inhibitor Start: 10-08-2021 End: 07-24-2022 Start: 10-08-2021 End: 02-07-2022 Pantoprazole 40 mg tablet,de layed release (DR/EC) Discontinued 40 mg PO TWICE A DAY 180 3 January 08, 2022 9:49am February 07, 2022 11:24am Bid for 3 months then daily polyethylene glycol 3350 50141 mg powder for oral solution (20 sources) Osmotic Laxative Start: 09-03-2021 End: 12-24-2023 polyethylene glycol 3350 (MIRALAX, GLYCOLAX) 17 gram packet Take 1 Packet by mouth once daily as needed. Dissolve dose in 4 - 8 ounces of liquid and take as directed. 0 09/03/2021 12/24/2023 Discontinued Start: 09-03-2021 End: 09-11-2021 Start: 09-03-2021 End: 09-11-2021 Polyethylene Glycol 3350 (Mi ralax) 17 gram Powder In Packet Discontinued 17 g PO NEEDED as needed for Constipation September 03, 2021 1:00am September 11, 2021 8:36pm polysaccharide iron complex 150 mg oral capsule (20 sources) Start: 09-11-2021 End: 11-20-2021 potassium chloride 20 meq ex tended release oral tablet (20 sources) Start: 12-24-2023 End: 03-18-2024 Start: 03-26-2023 End: 12-24-2023 Potassium Chloride 20 mEq ta blet extended release Discontinued 0 .ROUTE .COMPLEX 240 March 26, 2023 4:59pm December 24, 2023 1:01pm TAKE 2 TABLETS IN THE MORNING and 1 TABLET IN THE EVENING Start: 03-26-2023 End: 12-24-2023 Potassium Chloride 20 mEq ta blet extended release Discontinued 0 .ROUTE .COMPLEX 240 March 26, 2023 4:59pm December 24, 2023 1:01pm TAKE 2 TABLETS IN THE MORNING and 1 TABLET IN THE EVENING Start: 03-26-2023 Potassium Chlo ride Active 0 .ROUTE .COMPLEX 240 March 26, 2023 3:59pm TAKE 2 TABLETS IN THE MORNING and 1 TABLET IN THE EVENING Start: 03-26-2023 Potassium Chlo ride Active 0 .ROUTE .COMPLEX 240 March 26, 2023 4:59pm TAKE 2 TABLETS IN THE MORNING and 1 TABLET IN THE EVENING Start: 09-03-2021 take 1 tablet by saulo th twice daily potassium chloride ER (K-DUR, KLOR-CON) 20 mEq tablet Take 1 tablet by mouth twice daily. 0 09/03/2021 Active Start: 06-03-2019 End: 03-26-2023 take 1 tablet by mouth in the evening Potassium Chloride 20 mEq tablet extended release Discontinued 20 meq PO .COMPLEX 240 3 July 02, 2022 11:55pm March 26, 2023 5:00pm POTASSIUM 20 mEq PO 2 tablets in the AM and 1 tablet in the PM; Start: 01-19-2018 End: 03-26-2023 Start: 01-19-2018 End: 06-03-2019 take 1 tablet by mouth once daily in the evening Potassium Chloride 20 mEq tablet extended release Discontinued 20 meq PO EVERY EVENING January 19, 2018 12:00am June 03, 2019 8:06am Start: 01-19-2018 End: 06-03-2019 take 40 mEq by mouth once daily in the morning Potassium Chloride Discontinued 40 MEQ PO EVERY MORNING January 19, 2018 12:00am June 03, 2019 8:06am Start: 10-14-2017 End: 01-19-2018 Start: 10-14-2017 End: 01-19-2018 Start: 10-14-2017 End: 01-19-2018 take 2 tablets by mouth once daily Potassium Chloride 20 MEQ tablet Discontinued 40 meq PO DAILY October 14, 2017 12:00am January 19, 2018 9:49am Start: 10-14-2017 End: 01-19-2018 take 2 tablets by mouth at bedtime Potassium Chloride 10 MEQ tablet Discontinued 20 meq PO AT BEDTIME October 14, 2017 12:00am January 19, 2018 9:47am Start: 10-14-2017 End: 01-19-2018 take 40 mEq by mouth once daily Potassium Chloride Dis continued 40 MEQ PO DAILY October 14, 2017 12:00am January 19, 2018 9:49am Start: 10-14-2017 End: 01-19-2018 take 20 mEq by mouth at bedtime Potassium Chloride Dis continued 20 MEQ PO AT BEDTIME October 14, 2017 12:00am January 19, 2018 9:47am temazepam 15 mg oral capsule (20 sources) Benzodiazepine Start: 04-24-2015 End: 05-17-2015 Start: 04-24-2015 End: 05-17-2015 take 1 capsule by mouth at bedtime as needed for sleep Temazepam 15 MG capsule Discontinued 15 mg PO AT BEDTIME NEEDED as needed for Sleep April 24, 2015 12:00am May 17, 2015 1:07pm traMADol hydrochloride 50 mg oral tablet (20 sources) Opioid Agonist Start: 04-24-2015 End: 05-09-2015 triamcinolone acetonide 0.05 5 mg/actuat metered dose nasal spray (20 sources) Corticosteroid Start: 10-14-2017 End: 07-05-2018 Start: 10-14-2017 End: 07-05-2018 Triamcinolone Acetonide 1 SP RAY aerosol,spray Discontinued 2 NMA NS DAILY October 14, 2017 12:00am July 05, 2018 10:18am Start: 10-14-2017 End: 07-05-2018 Triamcinolone Acetonide Disc ontinued 2 SPRAY NS DAILY October 14, 2017 12:00am July 05, 2018 10:18am warfarin sodium 3 mg oral ta blet (20 sources) Vitamin K Antagonist Start: 09-26-2021 End: 02-09-2025 Start: 09-26-2021 End: 12-26-2021 take 1.5 tablets by mouth every week Warfarin 3 mg tablet Discontinued 3 mg PO .COMPLEX 1 0 September 26, 2021 1:00am December 26, 2021 9:03am 3 mg PO 1.5 tablets (4.5 mg) on and Thursday; 6 mg all other days of the week, or as directed; Please contact the information source for Protocol details. Start: 09-11-2021 End: 09-26-2021 Start: 08-28-2021 End: 09-11-2021 take 1.5 tablets by mouth once daily Warfarin Discontinued 6 MG PO MOTUTHFRSA August 28, 2021 4:41pm September 11, 2021 8:36pm 3 mg PO take 1.5 tablet (4.5 mg) on Thu and ; take 2 tablets (6mg) daily all other days of the week, or as directed; Start: 08-28-2021 End: 09-11-2021 Warfarin 3 mg tablet Discont inued 4.5 mg PO August 28, 2021 1:00am September 11, 2021 8:35pm AFIB Start: 08-28-2021 End: 09-11-2021 Warfarin Discontinued 4.5 MG PO August 28, 2021 1:00am September 11, 2021 8:35pm Start: 06-25-2021 End: 09-11-2021 take 1.5 tablets by mouth once daily Warfarin 3 mg tablet Discontinued 3 mg PO .COMPLEX 60 July 01, 2021 8:33am August 28, 2021 4:42pm 3 mg PO take 1.5 tablet (4.5 mg) on Thursday and ; take 2 tablets (6mg) daily all other days of the week, or as directed; Please contact the information source for Protocol details. Start: 05-09-2020 End: 06-25-2021 take 4.5 mg by mouth once daily Warfarin 3 mg tablet Discontinued 4.5 mg PO DAILY 45 May 09, 2020 2:28pm June 25, 2021 2:10pm Please contact the information source for Protocol details. Start: 05-09-2020 End: 06-25-2021 take 4.5 mg by mouth once daily Warfarin Discontinued 4.5 MG PO DAILY May 09, 2020 2:28pm June 25, 2021 2:10pm Start: 03-03-2019 End: 09-11-2021 Start: 03-03-2019 End: 05-09-2020 take 1 tablet by mouth four times weekly Warfarin 3 mg tablet Discontinued 3 mg PO 4 times per week 60 March 26, 2020 12:23pm May 09, 2020 2:29pm Please contact the information source for Protocol details. Start: 01-28-2019 End: 03-01-2019 Start: 01-28-2019 End: 03-01-2019 Start: 11-24-2018 End: 05-09-2020 Start: 05-17-2015 End: 03-03-2019 Start: 05-17-2015 End: 03-03-2019 Start: 05-17-2015 End: 03-03-2019 take 0.5 tablet by mouth every other day Warfarin 5 mg tablet Discontinued 5 mg PO .COMPLEX January 19, 2018 9:45am March 03, 2019 6:46pm 5 mg PO alternating QOD with half tab; 5mg(1 tablet) on thursday and thursday 10mg (2 tablets) on thursday, thursday,thursday, and thursday Please contact the information source for Protocol details. Start: 05-17-2015 End: 01-19-2018 take 2 tablets by mouth once daily Warfarin (Augtoven) 5 MG tablet Discontinued 5 mg PO DAILY October 14, 2017 3:02pm January 19, 2018 9:50am 5mg(1 tablet) on thursday and thursday 10mg (2 tablets) on thursday, thursday,thursday, and thursday Start: 05-17-2015 End: 10-14-2017 Warfarin Discontinued 10 MG PO Paolo@1700 0 May 17, 2015 12:00am October 14, 2017 3:02pm Start: 01-24-2015 End: 05-17-2015 Start: 01-24-2015 End: 05-17-2015 take 2 tablets by mouth once daily Warfarin (Jantoven) 4 MG tablet Discontinued 8 mg PO DAILY January 24, 2015 12:00am May 17, 2015 1:07pm take 1 tablet by saulo once daily warfarin (COUMADIN) 3 mg tablet Take 3 mg by mouth daily as directed. 0 Active (20 sources) Start: 02-23-2025 End: 03-20-2025 Start: 02-23-2025 Start: 08-15-2024 Start: 03-26-2023 End: 12-24-2023 Start: 10-08-2021 End: 08-15-2024 Start: 05-02-2020 End: 01-05-2025 Start: 10-14-2017 End: 02-22-2025 Start: 10-14-2017 End: 09-11-2021 Start: 04-24-2015 End: 02-22-2025 Start: 01-24-2015 End: 05-09-2015 Start: 01-24-2015 End: 07-05-2018 Problems Active Problems Problem Classification Problem Date Documented Date Episodic/Chronic Abdominal pain (13 sources) Abdominal pain; Translations: [Unspecified abdominal pain] Onset: 02-08-2025 01-30-2025 Episodic Acute and unspecified renal failure (1 source) Acute kidney failure, unspecified; Translations: [HANH (acute kidney injury)] Onset: 01-31-2025 Episodic Acute bronchitis (5 sources) Acute bronchitis, unspecified; Translations: [Acute bronchitis] 09-18-2022 Episodic Allergic reactions (20 sources) Inflammatory dermatosis; Translations: [Dermatitis, unspecified] 03-26-2021 Episodic Anxiety disorders (20 sources) Anxiety; Translations: [Anxiety disorder, unspecified] Onset: 12-19-2005 01-11-2019 Chronic Cardiac dysrhythmias (20 sources) Paroxysmal atrial flutter; Translations: [Unspecified atrial flutter] Onset: 12-16-2010 Chronic Cardiac dysrhythmias (20 sources) Tachycardia, unspecified; Translations: [Tachycardia, unspecified] Episodic Chronic kidney disease (20 sources) Chronic kidney disease stage 3; Translations: [Stage 3 chronic kidney disease] 03-18-2024 Chronic Chronic kidney disease (1 source) Chronic kidney disease; Translations: [Chronic kidney disease, stage 3b] Onset: 03-07-2025 Complication of device; implant or graft (20 sources) Pain due to knee joint prosthesis; Translations: [Pain due to internal orthopedic prosthetic devices, implants and grafts, initial encounter] 01-11-2019 Episodic Conduction disorders (20 sources) Right bundle branch block; Translations: [Unspecified right bundle-branch block] 01-13-2019 Chronic Congestive heart failure; nonhypertensive (20 sources) Chronic diastolic (congestive) heart failure; Translations: [Chronic diastolic heart failure] Onset: 06-11-2017 Chronic Coronary atherosclerosis and other heart disease (20 sources) Angina pectoris; Translations: [Angina at rest] Onset: 12-24-2023 07-21-2023 Chronic Deficiency and other anemia (1 source) Anemia, unspecified; Translations: [Anemia, unspecified] Onset: 03-01-2025 Episodic Disorders of lipid metabolism (20 sources) Pure hypercholesterolemia; Translations: [Pure hypercholesterolemia, unspecified] Onset: 12-19-2005 Chronic Diverticulosis and diverticulitis (5 sources) Diverticulosis of colon; Translations: [Diverticulosis of large intestine without perforation or abscess without bleeding] 12-19-2005 Chronic E Codes: Fall (20 sources) Fall; Translations: [Unspecified fall, initial encounter] 09-05-2021 Episodic Esophageal disorders (20 sources) Gastroesophageal reflux disease; Translations: [Gastro-esophageal reflux disease without esophagitis] Chronic Essential hypertension (20 sources) Essential hypertension; Translations: [Essential (primary) hypertension] Onset: 12-19-2005 Resolved: 12-12-2016 Chronic Fluid and electrolyte disorders (20 sources) Hypokalemia; Translations: [Hypokalemia] Onset: 01-31-2025 Episodic Fracture of lower limb (20 sources) Fracture of femur; Translations: [Unspecified fracture of unspecified femur, initial encounter for closed fracture] Onset: 08-29-2021 Episodic Genitourinary symptoms and ill-defined conditions (20 sources) Foul smelling urine; Translations: [Unspecified abnormal findings in urine] Onset: 03-22-2025 Episodic Headache; including migraine (5 sources) Migraine without aura; Translations: [Migraine without aura] Onset: 09-24-2006 09-24-2006 Chronic Headache; including migraine (20 sources) Headache; Translations: [Headache] Onset: 09-24-2006 01-11-2019 Episodic Heart valve disorders (20 sources) Aortic stenosis, non-rheumatic ; Translations: [Nonrheumatic aortic (valve) stenosis] Chronic Hemorrhoids (16 sources) Hemorrhoids; Translations: [Unspecified hemorrhoids] 09-01-2024 Episodic Malaise and fatigue (20 sources) Asthenia; Translations: [Other malaise] Onset: 02-23-2025 Episodic Mood disorders (12 sources) Mood disorder; Translations: [Unspecified mood [affective] disorder] 03-01-2025 Chronic Osteoporosis (20 sources) Osteoporosis; Translations: [Age-related osteoporosis without current pathological fracture] Onset: 09-01-2024 Chronic Other aftercare (20 sources) Drug 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; Translations: [exterminator helper (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) use of anticoagulants] 09-05-2021 Episodic Other aftercare (20 sources) Long-term current use of anticoagulant; Translations: [senior care (current) use of anticoagulants] 11-24-2018 Episodic Other aftercare (20 sources) Anticoagulant effect; Translations: [Encounter for therapeutic drug level monitoring] 01-11-2019 Episodic Other aftercare (3 sources) senior care (current) use of anticoagulants; Translations: [Anticoagulated on Coumadin] Onset: 01-31-2025 Episodic Other aftercare (14 sources) Post-discharge follow-up; Translations: [Encounter for follow-up examination after completed treatment for conditions other than malignant neoplasm] 02-23-2025 Episodic Other and ill-defined heart disease (18 sources) Right cardiac ventricular dilatation; Translations: [Cardiomegaly] 02-22-2025 Chronic Other and ill-defined heart disease (1 source) Cardiomegaly; Translations: [Cardiomegaly] Onset: 02-23-2025 Chronic Other bone disease and musculoskeletal deformities (5 sources) Disorder of skeletal system; Translations: [Disorder of bone, unspecified] 08-16-2009 Episodic Other connective tissue disease (20 sources) History of total knee arthroplasty; Translations: [Presence of left artificial knee joint] 01-11-2019 Chronic Other connective tissue disease (5 sources) History of left total knee replacement; Translations: [Presence of left artificial knee joint] 07-22-2015 Chronic Other connective tissue disease (20 sources) Pain in calf; Translations: [Pain in left lower leg] 06-10-2022 Episodic Other connective tissue disease (10 sources) Pain in left lower leg; Translations: [Pain in limb] Episodic Other connective tissue disease (16 sources) Pain in upper limb; Translations: [Pain in right arm] 09-01-2024 Episodic Other connective tissue disease (2 sources) Nontraumatic hematoma of soft tissue; Translations: [Nontraumatic hematoma of soft tissue] Onset: 03-02-2025 Episodic Other diseases of kidney and ureters (20 sources) Renal impairment; Translations: [Disorder of kidney and ureter, unspecified] 04-10-2022 Episodic Other diseases of kidney and ureters (4 sources) Disorder of kidney and ureter, unspecified; Translations: [Unspecified disorder of kidney and ureter] Episodic Other injuries and conditions due to external causes (20 sources) H/O: fracture; Translations: [Personal history of (healed) traumatic fracture] 10-08-2021 Episodic Other injuries and conditions due to external causes (5 sources) Personal history of (healed) traumatic fracture; Translations: [Personal history of traumatic fracture] Episodic Other lower respiratory disease (20 sources) Dyspnea on exertion; Translations: [Dyspnea, unspecified] 10-15-2017 Episodic Other lower respiratory disease (20 sources) Cough; Translations: [Cough] 01-11-2019 Episodic Other screening for suspected conditions (not mental disorders or infectious disease) (20 sources) Mammography abnormal; Translations: [Other abnormal and inconclusive findings on diagnostic imaging of breast] Onset: 12-18-2009 12-18-2009 Episodic Other upper respiratory infections (20 sources) Nasal discharge; Translations: [Postnasal drip] 01-11-2019 Episodic Pulmonary heart disease (20 sources) Pulmonary hypertension; Translations: [Pulmonary hypertension, unspecified] Chronic Residual codes; unclassified (20 sources) 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; Translations: [Insomnia due to medical condition] 01-11-2019 Chronic Residual codes; unclassified (17 sources) Insomnia; Translations: [Insomnia, unspecified] Onset: 06-23-2005 12-19-2005 Episodic Spondylosis; intervertebral disc disorders; other back problems (5 sources) Degeneration of intervertebral disc; Translations: [Degeneration of intervertebral disc, site unspecified] 08-16-2009 Chronic Superficial injury; contusion (20 sources) Hematoma of rectus sheath; Translations: [Contusion of abdominal wall, initial encounter] Onset: 01-31-2025 01-30-2025 Episodic Thyroid disorders (20 sources) Acquired hypothyroidism; Translations: [Hypothyroidism, unspecified] Onset: 09-20-2024 Chronic Unclassified (1 source) Unknown / UNK(Unknown) Onset: 06-11-2017 Unclassified (5 sources) SUMMARY Onset: 11-29-2015 07-29-2021 Unclassified (2 sources) Other persistent atrial fibrillation; Translations: [Atrial fibrillation, persistent (HCC)] Onset: 12-24-2023 Unclassified (1 source) Longstanding persistent atrial fibrillation; Translations: [Longstanding persistent atrial fibrillation] Onset: 02-23-2025 Urinary tract infections (20 sources) Urinary tract infectious disease; Translations: [Urinary tract infection, site not specified] 04-01-2019 Episodic Past or Other Problems Problem Classification Problem Date Documented Da te Episodic/Chronic Other lower respiratory disease (5 sources) Hypoxia; Translations: [Hypoxemia] Onset: 08-29-2021 08-29-2021 Episodic Other skin disorders (5 sources) Alopecia; Translations: [Other specified nonscarring hair loss] Onset: 12-27-2008 Resolved: 04-30-2010 07-29-2021 Episodic Residual codes; unclassified (20 sources) History of cardioversion; Translations: [Personal history of other medical treatment] Onset: 07-03-2022 07-15-2022 Episodic Comment on above: WC: 07/15/22, 10/15; [facility]: 2010, 2015 Results Test Name Value Interpretation Reference Range Facility Urine Cultureon 03-22-2025 [facility] Presumptive E. coli Rodman Count >100,000 Presumptive E. coli: REACTION Ampicillin Islt OSVALDO 8 Ampicillin+Sulbac Islt OSVALDO <=2 S Cefepime Islt OSVALDO <=0.12 S cefTRIAXone Islt OSVALDO <=0.25 S Ciprofloxacin Islt OSVALDO <=0.06 S B-Lactamase Extended Susc Islt NEG Gentamicin Islt OSVALDO <=1 S levoFLOXacin Islt OSVALDO <=0.12 S Meropenem Islt OSVALDO <=0.25 S Nitrofurantoin Islt OSVALDO <=16 S Pip+Tazo Islt OSVALDO <=4 S TMP SMX Islt OSVALDO <=20 S Normal [facility] Comment on above: Performed By: #### L 300.3900 #### [facility] [address] [place], [place], [address] Internal Medicine Office Vis iton 03-20-2025 Internal Medicine Office Visit [facility] [address] [place] [address] [place] [address] OFFICE VISIT Date of Service: 03/20/25 MR#: [id number] Acct: [id number] Name: ANA MARIA AVALOS Rep #: [id number] : 1935 Provider: LINNEA vinson Age/Sex: 89/F Location: [facility] Status: Signed Intake Vital Signs 03/01/25 12:14 Height 5 ft 8 in Weight: 148 lb BMI 22.5 BP 124/82 H Blood Pressure Location Lt brachial Position Sitting Respiration 16 Pulse 87 Pulse Source Monitor Temp 96.4 F L Temp Source Temporal Pulse Oximetry (%) 97 Oxygen Delivery Method room air Intake Visit Reasons: ACUTE-POSSIBLE UTI Pharmacist Per Diem Required: No Accompanied by: Self Is patient in pain?: No Allergies bee venom protein (honey bee) Allergy (Unknown, Verified 03/20/25 10:56) UNKNOWN propoxyphene (From Darvocet-N) Allergy (Unknown, Verified 03/20/25 10:56) UNKNOWN codeine Adverse Reaction (Verified 03/20/25 10:56) Other Medications ???Medication ???Instructions ???Recorded ???Confirmed ???Type acetaminophen 500 mg tablet 1,000 mg (2 x 500 mg) PO Q6H PRN 0 09/11/21 03/01/25 Rx PRN Pain Score 1-5 #0 tabs metoprolol tartrate 100 mg tablet 100 mg PO Q12H #180 tabs 05/23/24 03/20/25 Rx atorvastatin 20 mg tablet 20 mg PO QHS CHOLESTEROL #90 tabs 06/16/24 03/20/25 Rx alendronate 70 mg tablet See Rx Instructions .Route 4 03/20/25 Rx .COMPLEX #14 tabs Handicap Placard #1 ea 08/15/24 03/01/25 Rx spironolactone 25 mg tablet 25 mg PO DAILY #30 tabs 09/13/24 0 03/20/25 Rx levothyroxine 112 mcg tablet See Rx Instructions .Route 5 03/20/25 Rx .COMPLEX #90 tabs dapagliflozin propanediol 10 mg 10 mg PO QAM #30 tabs 11/15/24 Rx tablet (Farxiga) apixaban 5 mg tablet (Eliquis) 5 mg PO .COMPLEX #200 tabs 5 03/20/25 Rx furosemide 20 mg tablet (Lasix) 40 mg PO QAM 03/20/25 03/20/25 His tory nitrofurantoin 100 mg PO Q12H 5 days #10 caps 03/20/25 Rx monohydrate/macrocrysta ls 100 mg capsule (Macrobid) Have you fallen in the past year?: Yes PFSH Medical History (Updated 03/20/25 @ 14:37 by Carla Coughlin NP-C) UTI (urinary tract infection) Mood disorder Insomnia Hematoma of rectus sheath Right ventricular dilation Elevated C-reactive protein (CRP) Pain in both upper extremities Hemorrhoid CKD (chronic kidney disease), stage III 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 Longstanding persistent atrial fibrillation Foul smelling urine Hx of fracture of femur Dermatitis Nonrheumatic aortic (valve) stenosis Cystitis Osteoporosis Urinary tract infection with hematuria Vision problems Osteopenia Chronic headaches Cataracts, bilateral Back problem Arthritis Seasonal allergies RBBB DDD (degenerative disc disease) Diverticulosis Pure hypercholesterolemia Anemia Pulmonary hypertension Non-rheumatic mitral regurgitation Nonrheumatic tricuspid valve regurgitation Paroxysmal atrial fibrillation Essential hypertension Hyperlipidemia GERD (gastroesophageal reflux disease) Depression Joint pain Headache Snoring Post-nasal drainage Cough Dyspnea on exertion Anxiety Insomnia due to medical condition Hypothyroidism (acquired) Anticoagulation goal of INR 2 to 3 Hypertension Atrial fibrillation with normal ventricular rate 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 Surgical History History of cataract extraction History of cardioversion ( 07/15/22) History of total left knee replacement Status post surgical manipulation of ankle joint Status post total left knee replacement Family History Mother Heart disease High cholesterol Osteoporosis CVA (cerebral vascular accident) Hypertension Father Hypertension Alcohol abuse Sister Asthma Hypertension Thyroid disorder Social History household members: none Smoking Status: Never smoker alcohol intake: never substance use type: does not use what type of physical activity do you participate in: none HPI HPI Details: ANA MARIA AVALOS, is a 89 F who presents to the office today for urinary concerns. Patient states that over the last several weeks she was taking diuretics and has been urinating well has noticed over the last several days decreased urinary stream as well as change in color and odor of urine. She denies pain or burning with urination however noticed due to feelings of retention and discoloration of urine that she may have a urinary tract infection. States history of UTI approximately 1/year. ROS Const Constitutional: No body ache, chills, excessive sweating, fatigue, fever(s), frequ (more content not included)... Normal [facility] No Panel InformationOrdered By: Carla Coughlin on 03-20-2025 DARK YELLOW [facility] Cloudy [facility] 250 g/dL [facility] Trace (5) [facility] 1.010 [facility] 7.5 [facility] Negative [facility] 1 mg/dL [facility] Hemolyzed [facility] Large [facility] Trace [facility] Positive [facility] Urine cultureOrdered By: Gypsy Coughlin on 03-20-2025 Bacteria identified Cx Nom (U) Presumptive E. coli Abnormal [facility] Anion gap in Serum or Plasma Ordered By: Eun Lloyd on 03-01-2025 Anion gap [Moles/Vol] 13 mmol/L 5-15 [facility] BUN/creatinine ratioOrdered By: Eun Lloyd on 03-01-2025 Urea nitrogen/Creatinine [Mass ratio] 24.4 mg/mg High 10-20 [facility] Basic Metabolic Profile (BMP )on 03-01-2025 BUN/CRE 24.4 RATIO High 10-20 [facility] Comment on above: Order Comment: Send result to Dr. Fish also Performed By: #### L 500.2500 #### [facility] [address] [place], [address] Calcium [Mass/Vol] 9.5 mg/dL Normal 7.6-11.0 [facility] Comment on above: Order Comment: Send result to Dr. Fish also Performed By: #### L 500.2500 #### [facility] [address] [place], [address] Chloride [Moles/Vol] 92 mmol/L Low 98-108 [facility] Comment on above: Order Comment: Send result to Dr. Fish also Performed By: #### L 500.2500 #### [facility] [address] [place], [address] CO2 [Moles/Vol] 26.2 mmol/L Normal 21.0-32.0 [facility] Comment on above: Order Comment: Send result to Dr. Fish also Performed By: #### L 500.2500 #### [facility] [address] [place], [address] Creatinine [Mass/Vol] 1.17 mg/dL Normal 0.70-1.20 [facility] Comment on above: Order Comment: Send result to Dr. Fish also Performed By: #### L 500.2500 #### [facility] [address] [place], [address] GAP 13 Normal 5-15 [facility] Comment on above: Order Comment: Send result to Dr. Fish also Performed By: #### L 500.2500 #### [facility] [address] [place], [address] GFR/1.73 sq M.predicted among non-blacks MDRD (S/P/Bld) [Vol rate/Area] 45 mL/min/{1.73_m2} Low >60 [facility] Comment on above: Order Comment: Send result to Dr. Fish also Result Comment: mL/m in/1.73m2 CKD-EPI Creatinine Equation (2020) Performed By: #### L 500.2500 #### [facility] [address] [place], [address] Glucose [Mass/Vol] 88 mg/dL Normal 70-99 [facility] Comment on above: Order Comment: Send result to Dr. Fish also Performed By: #### L 500.2500 #### [facility] [address] [place], [address] Potassium [Moles/Vol] 3.5 mmol/L Normal 3.3-5.1 [facility] Comment on above: Order Comment: Send result to Dr. Fish also Performed By: #### L 500.2500 #### [facility] [address] [place], [address] Sodium [Moles/Vol] 131 mmol/L Low 133-145 [facility] Comment on above: Order Comment: Send result to Dr. Fish also Performed By: #### L 500.2500 #### [facility] [address] [place], [place], [address] Urea nitrogen [Mass/Vol] 29 mg/dL High 4-19 [facility] Comment on above: Order Comment: Send result to Dr. Fish also Performed By: #### L 500.2500 #### [facility] [address] [place], [place], [address] Carbon dioxide, total [Moles /volume] in Central venous bloodOrdered By: Eun Lloyd on 03-01-2025 CO2 [Moles/Vol] 26.2 mmol/L 21.0-32.0 [facility] Chloride assayOrdered By: Alee Lloyd on 03-01-2025 Chloride [Moles/Vol] 92 mmol/L Low 98-108 [facility] Glomerular filtration rate ( GFR) estimation/1.73 sq m using serum, plasma, or whole bOrdered By: Eun Lloyd on 03-01-2025 GFR/1.73 sq M.predicted among non-blacks MDRD (S/P/Bld) [Vol rate/Area] 45 mL/min/{1.73_m2} Low >60 [facility] Internal Medicine Office Vis iton 03-01-2025 Internal Medicine Office Visit [facility] [place] [address] [place] [address] OFFICE VISIT Date of Service: 03/01/25 MR#: [id number] Acct: [id number] Name: ANA MARIA AVALOS Rep #: [id number] : 1935 Provider: Dr. Agnieszka kebede MD Age/Sex: 89/F Location: [facility] Status: Signed Intake Vital Signs 09/01/24 14:13 02/23/25 11:23 03/01/25 11:07 Height 5 ft 8 in 5 ft 8 in 5 ft 8 in Weight: 150 lb 2 oz BMI 22.8 BP 118/84 H Blood Pressure Location Lt brachial Position Sitting Respiration 16 Pulse 69 Pulse Source Monitor Temp 97.0 F L Temp Source Temporal Pulse Oximetry (%) 95 Oxygen Delivery Method room air Intake Visit Reasons: 6 M FU Chief Complaint: Follow-up chronic conditions. Pharmacist Per Diem Required: No Accompanied by: Self Is patient in pain?: No Allergies bee venom protein (honey bee) Allergy (Unknown, Verified 03/01/25 11:08) UNKNOWN propoxyphene (From Darvocet-N) Allergy (Unknown, Verified 03/01/25 11:08) UNKNOWN codeine Adverse Reaction (Verified 03/01/25 11:08) Other Medications ???Medication ???Instructions ???Recorded ???Confirmed ???Type acetaminophen 500 mg tablet 1,000 mg (2 x 500 mg) PO Q6H PRN 0 09/11/21 03/01/25 Rx PRN Pain Score 1-5 #0 tabs metoprolol tartrate 100 mg tablet 100 mg PO Q12H #180 tabs 05/23/24 03/01/25 Rx atorvastatin 20 mg tablet 20 mg PO QHS CHOLESTEROL #90 tabs 06/16/24 03/01/25 Rx alendronate 70 mg tablet See Rx Instructions .Route 4 03/01/25 Rx .COMPLEX #14 tabs Handicap Placard #1 ea 08/15/24 03/01/25 Rx spironolactone 25 mg tablet 25 mg PO DAILY #30 tabs 09/13/24 0 03/01/25 Rx levothyroxine 112 mcg tablet See Rx Instructions .Route 5 03/01/25 Rx .COMPLEX #90 tabs dapagliflozin propanediol 10 mg 10 mg PO QAM #30 tabs 11/15/24 Rx tablet (Farxiga) apixaban 5 mg tablet (Eliquis) 5 mg PO .COMPLEX #200 tabs 5 03/01/25 Rx furosemide 20 mg tablet (Lasix) 20 mg PO QAM 02/16/25 03/01/25 His tory metolazone 5 mg tablet 5 mg PO .COMPLEX #10 tabs 02/22/25 03/01/25 Rx cephalexin 500 mg capsule 500 mg PO Q8 02/23/25 03/01/25 His tory doxycycline hyclate 100 mg capsule 100 mg PO 02/23/25 03/01/25 Hist ory Have you fallen in the past year?: Yes Nurse's Note: 6 M FU [facility] Medical History (Updated 03/01/25 @ 13:[address] Agnieszka Fish MD) Mood disorder Insomnia Hematoma of rectus sheath Right ventricular dilation Elevated C-reactive protein (CRP) Pain in both upper extremities Hemorrhoid CKD (chronic kidney disease), stage III 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 Longstanding persistent atrial fibrillation Foul smelling urine Hx of fracture of femur Dermatitis Nonrheumatic aortic (valve) stenosis Cystitis Osteoporosis Urinary tract infection with hematuria Vision problems Osteopenia Chronic headaches Cataracts, bilateral UTI (urinary tract infection) Back problem Arthritis Seasonal allergies RBBB DDD (degenerative disc disease) Diverticulosis Pure hypercholesterolemia Anemia Pulmonary hypertension Non-rheumatic mitral regurgitation Nonrheumatic tricuspid valve regurgitation Paroxysmal atrial fibrillation Essential hypertension Hyperlipidemia GERD (gastroesophageal reflux disease) Depression Joint pain Headache Snoring Post-nasal drainage Cough Dyspnea on exertion Anxiety Insomnia due to medical condition Hypothyroidism (acquired) Anticoagulation goal of INR 2 to 3 Hypertension Atrial fibrillation with normal ventricular rate 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 Surgical History History of cataract extraction History of cardioversion ( 07/15/22) History of total left knee replacement Status post surgical manipulation of ankle joint Status post total left knee replacement Family History Mother Heart disease High cholesterol Osteoporosis CVA (cerebral vascular accident) Hypertension Father Hypertension Alcohol abuse Sister Asthma Hypertension Thyroid disorder Social History household members: none Smoking Status: Never smoker alcohol intake: never substance use type: does not use what type of physical activity do you participate in: none HPI HPI Chief Complaint: Follow-up chronic conditions. Details: ANA MARIA AVALOS, is an 89-year-old female presenting for follow up of her chronic conditions. Status post recent hospital admission for abdominal pain and subsequent diagnosis of rectus sheath hematoma. She was transferred from [facility] to [facility] Due to anticipation for int ervention however conservative approach taken at (more content not included)... Normal [facility] Potassium measurement (mass/ volume)Ordered By: Eun Lloyd on 03-01-2025 Potassium (Unsp spec) [Mass/Vol] 3.5 mmol/L 3.3-5.1 [facility] Serum creatinine measurement (mass/volume)Ordered By: Eun Lloyd on 03-01-2025 Creatinine [Mass/Vol] 1.17 mg/dL 0.70-1.20 [facility] Serum glucose measurement (m ass/volume)Ordered By: Eun Lloyd on 03-01-2025 Glucose [Mass/Vol] 88 mg/dL 70-99 [facility] Serum or plasma calcium caleb urement (mass/volume)Ordered By: Eun Lloyd on 03-01-2025 Calcium [Mass/Vol] 9.5 mg/dL 7.6-11.0 [facility] Serum or plasma urea nitroge n measurement (mass/volume)Ordered By: Eun Lloyd on 03-01-2025 Urea nitrogen [Mass/Vol] 29 mg/dL High 4-19 [facility] Sodium levelOrdered By: Jim Lloyd on 03-01-2025 Sodium [Moles/Vol] 131 mmol/L Low 133-145 [facility] Internal Medicine Office Vis iton 02-23-2025 Internal Medicine Office Visit [facility] [address] [place] [address] [place] [address] OFFICE VISIT Date of Service: 02/23/25 MR#: [id number] Acct: [id number] Name: ANA MARIA AVALOS Rep #: [id number] : 1935 Provider: LINNEA vinson Age/Sex: 89/F Location: [facility] Status: Signed Intake Vital Signs 01/30/25 19:20 02/10/25 08:29 02/22/25 13:01 02/23/25 11:23 Height 5 ft 8 in 5 ft 8 in 5 ft 8 in 5 ft 8 in Weight: 167 lb BMI 25.4 BP 120/74 Blood Pressure Location Lt brachial Position Sitting Respiration 16 Pulse 83 Pulse Source Monitor Temp 96.5 F L Temp Source Temporal Pulse Oximetry (%) 95 Oxygen Delivery Method room air Intake Visit Reasons: Hospital FU Chief Complaint: Hospital F/U Pharmacist Per Diem Required: No Accompanied by: Neighbor Is patient in pain?: No Allergies bee venom protein (honey bee) Allergy (Unknown, Verified 02/23/25 11:05) UNKNOWN propoxyphene (From Darvocet-N) Allergy (Unknown, Verified 02/23/25 11:05) UNKNOWN codeine Adverse Reaction (Verified 02/23/25 11:05) Other Medications ???Medication ???Instructions ???Recorded ???Confirmed ???Type acetaminophen 500 mg tablet 1,000 mg (2 x 500 mg) PO Q6H PRN 0 09/11/21 02/23/25 Rx PRN Pain Score 1-5 #0 tabs metoprolol tartrate 100 mg tablet 100 mg PO Q12H #180 tabs 05/23/24 02/23/25 Rx atorvastatin 20 mg tablet 20 mg PO QHS CHOLESTEROL #90 tabs 06/16/24 02/23/25 Rx alendronate 70 mg tablet See Rx Instructions .Route 4 02/23/25 Rx .COMPLEX #14 tabs Handicap Placard #1 ea 08/15/24 01/05/25 Rx spironolactone 25 mg tablet 25 mg PO DAILY #30 tabs 09/13/24 0 02/23/25 Rx levothyroxine 112 mcg tablet See Rx Instructions .Route 5 02/23/25 Rx .COMPLEX #90 tabs dapagliflozin propanediol 10 mg 10 mg PO QAM #30 tabs 11/15/24 Rx tablet (Farxiga) apixaban 5 mg tablet (Eliquis) 5 mg PO .COMPLEX #200 tabs 5 02/23/25 Rx furosemide 20 mg tablet (Lasix) 20 mg PO QAM 02/16/25 02/22/25 His tory metolazone 5 mg tablet 5 mg PO .COMPLEX #10 tabs 02/22/25 02/22/25 Rx cephalexin 500 mg capsule 500 mg PO Q8 02/23/25 02/23/25 His tory doxycycline hyclate 100 mg capsule 100 mg PO 02/23/25 02/23/25 Hist ory Have you fallen in the past year?: Yes Nurse's Note: 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 Longstanding persistent atrial fibrillation Foul smelling urine Hx of fracture of femur Dermatitis Nonrheumatic aortic (valve) stenosis Cystitis Osteoporosis Urinary tract infection with hematuria Vision problems Osteopenia Chronic headaches Cataracts, bilateral UTI (urinary tract infection) Back problem Arthritis Seasonal allergies RBBB DDD (degenerative disc disease) Diverticulosis Pure hypercholesterolemia Anemia Pulmonary hypertension Non-rheumatic mitral regurgitation Nonrheumatic tricuspid valve regurgitation Paroxysmal atrial fibrillation Essential hypertension Hyperlipidemia GERD (gastroesophageal reflux disease) Depression Joint pain Headache Snoring Post-nasal drainage Cough Dyspnea on exertion Anxiety Insomnia due to medical condition Hypothyroidism (acquired) Anticoagulation goal of INR 2 to 3 Hypertension Atrial fibrillation with normal ventricular rate 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 Surgical History History of cataract extraction History of cardioversion ( 07/15/22) History of total left knee replacement Status post surgical manipulation of ankle joint Status post total left knee replacement Family History Mother Heart disease High cholesterol Osteoporosis CVA (cerebral vascular accident) Hypertension Father Hypertension Alcohol abuse Sister Asthma Hypertension Thyroid disorder Social History household members: none Smoking Status: Never smoker alcohol intake: never substance use type: does not use what type of physical activity do you participate in: none HPI HPI Chief Complaint: Hospital F/U Details: ANA MARIA AVALOS, is a 89 F who presents to the office today for follow-up from recent hospital stay. Patient initially presented to [facility] 01/30/2025 with abdominal pain. Here she was diagnosed with a rectus sheath hematoma. She was then transferred to [facility] Where she received care until she was discharged 02/08/2025. Hospital course included neff (more content not included)... Normal [facility] Cardiology Visit Reporton Cardiology Visit Report [facility] [address] [place] [address] OFFICE VISIT Date of Service: 02/22/25 MR#: [id number] Acct: [id number] Name: ANA MARIA AVALOS Rep #: [id number] : 1935 Provider: SANDRA Blount Age/Sex: 89/F Location: [facility] Status: Signed HPI HPI History of Present Illness Details: ANA MARIA AVALOS, is a 89 F who presents here today for a cardiovascular follow up. She does have a hx of history of persistent chronic atrial fibrillation/flutter, tachycardic induced cardiomyopathy with systolic CHF, aortic valve stenosis (peak gradient 8mmHg), MR/TR, pulmonary hypertension, hyperlipidemia, and hypertension. In the past she did have an evaluation in the past for her cardiac dysrhythmia by??? EP for possible ablation therapy.??? She states she was thought not to be an ideal candidate. However, they did talk with her about an AV darin ablation. The patient had some medications adjusted were we were treating her LV dysfunction with guideline directed medical therapy and added diltiazem and remove the digoxin. This is allowed for better rate control of her atrial fibrillation and repeat echocardiogram done March 01, 2024 revealed that her EF improved to 57%. She does have moderate 2+ mitral regurgitation and moderate to severe 3+ tricuspid regurgitation. Right ventricular systolic pressure was estimated 51. Right atrial pressure 15. Patient presented to [facility] on January 30, 2025. She was then transferred to [facility] For a rectus sheath hematoma. She was noted to have a supratherapeutic INR. She was treated with vitamin K. Echocardiogram demonstrated severe pulmonary hypertension, severe tricuspid regurg and worsening right ventricular enlargement. Her hospital stay was complicated by superficial septic thrombophlebitis involving the antecubital vein in the left upper extremity. She was also noted to be hyperkalemic during her hospital stay. Her Aldactone and losartan were held. Upon discharge her Aldactone was restarted with instructions to repeat a BMP in 1 week. Her Coumadin was discontinued and it was recommended that she be switched to Eliquis. She still has swelling and dependent edema. She is up 20 lbs. Intake Vital Signs 02/10/25 08:29 02/22/25 13:01 Height 5 ft 8 in 5 ft 8 in Weight: 166 lb BMI 25.2 BP 116/75 Blood Pressure Location Lt brachial Position Sitting Respiration 16 Pulse 71 Pulse Source NIBP Intake Visit Reasons: S/P [facility] 02/08 Pharmacist Per Diem Required: No Accompanied by: Friend Is patient in pain?: No Allergies bee venom protein (honey bee) Allergy (Unknown, Verified 02/22/25 13:08) UNKNOWN propoxyphene (From Darvocet-N) Allergy (Unknown, Verified 02/22/25 13:08) UNKNOWN codeine Adverse Reaction (Verified 02/22/25 13:08) Other Medications ???Medication ???Instructions ???Recorded ???Confirmed ???Type acetaminophen 500 mg tablet 1,000 mg (2 x 500 mg) PO Q6H PRN 0 09/11/21 01/30/25 Rx PRN Pain Score 1-5 #0 tabs metoprolol tartrate 100 mg tablet 100 mg PO Q12H #180 tabs 05/23/24 02/22/25 Rx atorvastatin 20 mg tablet 20 mg PO QHS CHOLESTEROL #90 tabs 06/16/24 02/22/25 Rx alendronate 70 mg tablet See Rx Instructions .Route 4 02/22/25 Rx .COMPLEX #14 tabs Handicap Placard #1 ea 08/15/24 01/05/25 Rx spironolactone 25 mg tablet 25 mg PO DAILY #30 tabs 09/13/24 0 02/22/25 Rx levothyroxine 112 mcg tablet See Rx Instructions .Route 5 02/22/25 Rx .COMPLEX #90 tabs dapagliflozin propanediol 10 mg 10 mg PO QAM #30 tabs 11/15/24 Rx tablet (Farxiga) apixaban 5 mg tablet (Eliquis) 5 mg PO .COMPLEX #200 tabs 5 02/22/25 Rx furosemide 20 mg tablet (Lasix) 20 mg PO QAM 02/16/25 02/22/25 His tory metolazone 5 mg tablet 5 mg PO .COMPLEX #10 tabs 02/22/25 02/22/25 Rx Ejection fraction %: 35 Have you fallen in the past year?: Yes [facility] Medical History (Updated 02/22/25 @ 13:47 by Eun Lloyd PA, PA) Right ventricular dilation Elevated C-reactive protein (CRP) Pain in both upper extremities Hemorrhoid CKD (chronic kidney disease), stage III 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 Normal [facility] Anion gap in Serum or Plasma Ordered By: Agnieszka Fish on 02-13-2025 Anion gap [Moles/Vol] 12 mmol/L - [facility] Automated blood erythrocyte countOrdered By: Agnieszka Fish on 02-13-2025 RBC (Bld) [#/Vol] 3.43 10*6/uL Low 4.2-5.4 [facility] Comment on above: Performed By: #### L 100.0500, L500.2500 #### [facility] [address] [place], [address] Automated blood hematocrit ( percentage)Ordered By: Agnieszka Fish on 02-13-2025 Hematocrit (Bld) [Volume fraction] 34.4 % Low 37-47 [facility] Comment on above: Performed By: #### L 100.0500, L500.2500 #### [facility] [address] [place], [address] BUN/creatinine ratioOrdered By: Agnieszka Fish on 02-13-2025 Urea nitrogen/Creatinine [Mass ratio] 24.9 mg/mg High 05-22 [facility] Basic Metabolic Profile (BMP )on 02-13-2025 BUN/CRE 24.9 RATIO High 05-22 [facility] Comment on above: Performed By: #### L 100.0500, L500.2500 #### [facility] [address] [place], [address] GAP 12 Normal 12-15 [facility] Comment on above: Performed By: #### L 100.0500, L500.2500 #### [facility] [address] [place], [address] Potassium [Moles/Vol] 4.0 mmol/L Normal 3.3-5.1 [facility] Comment on above: Performed By: #### L 100.0500, L500.2500 #### [facility] [address] [place], [address] CBC-Complete Blood Cnt No Di ffon 02-13-2025 MCHC (RBC) [Mass/Vol] 32.6 g/dL Normal 32-36 [facility] Comment on above: Performed By: #### L 100.0500, L500.2500 #### [facility] [address] [place], [address] Platelet mean volume (Bld) [Entitic vol] 9.0 fL Normal 6.2-12.0 [facility] Comment on above: Performed By: #### L 100.0500, L500.2500 #### [facility] [address] [place], [address] RDW SD 63.1 fl High 35.1-43.9 [facility] Comment on above: Performed By: #### L 100.0500, L500.2500 #### [facility] [address] [place], [address] Carbon dioxide, total [Moles /volume] in Central venous bloodOrdered By: Agnieszka Fish on 02-13-2025 CO2 [Moles/Vol] 17.4 mmol/L Low 21.0-32.0 [facility] Comment on above: Performed By: #### L 100.0500, L500.2500 #### [facility] [address] [place], [address] Chloride assayOrdered By: Elina Fish on 02-13-2025 Chloride [Moles/Vol] 103 mmol/L 98-108 [facility] Comment on above: Performed By: #### L 100.0500, L500.2500 #### [facility] [address] [place], [address] Erythrocyte distribution wid th ratioOrdered By: Agnieszka Fish on 02-13-2025 Erythrocyte distribution width (RBC) [Ratio] 18.8 % High 11.6-14.6 [facility] Comment on above: Performed By: #### L 100.0500, L500.2500 #### [facility] [address] [place], [address] Erythrocyte distribution wid th standard deviationOrdered By: Agnieszka Fish on 02-13-2025 Erythrocyte distribution width (RBC) [Ratio] 63.1 fl High 35.1-43.9 [facility] Glomerular filtration rate ( GFR) estimation/1.73 sq m using serum, plasma, or whole bOrdered By: Agnieszka Fish on 02-13-2025 GFR/1.73 sq M.predicted among non-blacks MDRD (S/P/Bld) [Vol rate/Area] 51 mL/min/{1.73_m2} Low >60 [facility] Comment on above: Result Comment: mL/m in/1.73m2 CKD-EPI Creatinine Equation (2020) Performed By: #### L 100.0500, L500.2500 #### [facility] [address] [place], [address] Hemoglobin measurementOrdere d By: Agnieszka Fish on 02-13-2025 Hemoglobin (Bld) [Mass/Vol] 11.2 g/dL Low 12.0-15.0 [facility] Comment on above: Performed By: #### L 100.0500, L500.2500 #### [facility] [address] [place], [address] MCV (mean corpuscular volume ) determinationOrdered By: Agnieszka Fish on 02-13-2025 MCV (RBC) [Entitic vol] 100.3 fL High 81-99 [facility] Comment on above: Performed By: #### L 100.0500, L500.2500 #### [facility] [address] [place], [address] Mean corpuscular hemoglobin (MCH) determinationOrdered By: Agnieszka Fish on 02-13-2025 MCH (RBC) [Entitic mass] 32.7 pg High 27.0-32.0 [facility] Comment on above: Performed By: #### L 100.0500, L500.2500 #### [facility] [address] [place], [address] Platelet countOrdered By: Elina shanelosman Fish on 02-13-2025 Platelets (Bld) [#/Vol] 251 10*3/uL 150-450 [facility] Comment on above: Performed By: #### L 100.0500, L500.2500 #### [facility] [address] [place], [address] Potassium measurement (mass/ volume)Ordered By: Agnieszka Fish on 02-13-2025 Potassium (Unsp spec) [Mass/Vol] 4.0 mmol/L 3.3-5.1 [facility] Serum creatinine measurement (mass/volume)Ordered By: Agnieszka Fsih on 02-13-2025 Creatinine [Mass/Vol] 1.05 mg/dL 0.70-1.20 [facility] Comment on above: Performed By: #### L 100.0500, L500.2500 #### [facility] [address] [place], [address] Serum glucose measurement (m ass/volume)Ordered By: Agnieszka Fish on 02-13-2025 Glucose [Mass/Vol] 122 mg/dL High 70-99 [facility] Comment on above: Performed By: #### L 100.0500, L500.2500 #### [facility] [address] [place], [address] Serum or plasma calcium caleb urement (mass/volume)Ordered By: Agnieszka Fish on 02-13-2025 Calcium [Mass/Vol] 8.4 mg/dL 7.6-11.0 [facility] Comment on above: Performed By: #### L 100.0500, L500.2500 #### [facility] [address] [place], [address] Serum or plasma urea nitroge n measurement (mass/volume)Ordered By: Agnieszka Fish on 02-13-2025 Urea nitrogen [Mass/Vol] 26 mg/dL High 4-19 [facility] Comment on above: Performed By: #### L 100.0500, L500.2500 #### [facility] [address] [place], [address] Sodium levelOrdered By: Hugh Fish on 02-13-2025 Sodium [Moles/Vol] 132 mmol/L Low 133-145 [facility] Comment on above: Performed By: #### L 100.0500, L500.2500 #### [facility] [address] [place], [address] White blood cell (WBC) count Ordered By: Agnieszka Fish on 02-13-2025 WBC (Bld) [#/Vol] 4.7 10*3/uL 4.4-11.0 [facility] Comment on above: Performed By: #### L 100.0500, L500.2500 #### [facility] [address] [place], [address] Basic metabolic 2000 panelon 02-08-2025 Anion gap [Moles/Vol] 13 mmol/L Normal 8-15 [facility] Comment on above: Order Comment: Speci men Type: BLOOD SPECIMEN Ordering Facility: [facility] Address: [address] [place] [address] Performed By: #### 3 4528-0 #### [facility] CLIA [id number] 1 [place] [address] [place] Calcium [Mass/Vol] 8.0 mg/dL Low 8.5-10.2 [facility] Comment on above: Order Comment: Speci men Type: BLOOD SPECIMEN Ordering Facility: [facility] Address: [address] [place] [address] Performed By: #### 3 4528-0 #### [facility] CLIA [id number] [address] [place] Chloride [Moles/Vol] 98 mmol/L Normal 98-107 [facility] Comment on above: Order Comment: Speci men Type: BLOOD SPECIMEN Ordering Facility: [facility] Address: [address] [place] [address] Performed By: #### 3 4528-0 #### [facility] CLIA [id number] [address] [place] CO2 [Moles/Vol] 18 mmol/L Low 22-30 [facility] Comment on above: Order Comment: Speci men Type: BLOOD SPECIMEN Ordering Facility: [facility] Address: [address] [place] [address] Performed By: #### 3 4528-0 #### [facility] CLIA [id number] [address] [place] Creatinine [Mass/Vol] 0.91 mg/dL Normal 0.58-0.96 [facility] Comment on above: Order Comment: Speci men Type: BLOOD SPECIMEN Ordering Facility: [facility] Address: [address] [place] [address] Performed By: #### 3 4528-0 #### [facility] CLIA [id number] [address] Creatinine and Glomerular filtration rate.predicted panel (S/P/Bld) 61 mL/min/1.73m??? Normal >=60 [facility] Comment on above: Order Comment: Speci men Type: BLOOD SPECIMEN Ordering Facility: [facility] Address: [address] [place] [address] Result Comment: Kiki mated Glomerular Filtration Rate (eGFR) is calculated using the 2020 CKD-EPI creatinine equation. This equation utilizes serum creatinine, sex, and age as parameters. The creatinine assay has traceable calibration to isotope dilution-mass spectrometry. Refer to KDIGO guidelines for clinical interpretation. In patients with unstable renal function, e.g. those with acute kidney injury, the eGFR may not accurately reflect actual GFR. Performed By: #### 3 4528-0 #### [facility] CLIA [id number] 1 [place] [address] [place] Glucose [Mass/Vol] 81 mg/dL Normal 74-99 [facility] Comment on above: Order Comment: Claudia howell Type: BLOOD SPECIMEN Ordering Facility: [facility] Address: [address] [place] [address] Result Comment: The [place] Diabetes [employer] (ADA) provides guidance for cutoff [...] Standards of Medical Care in Diabetes 2016, [place] [employer]. Diabetes Care. 2016.39(Suppl 1). Performed By: #### 3 4528-0 #### [facility] CLIA [id number] 1 [place] [address] [place] Potassium [Moles/Vol] 4.5 mmol/L Normal 3.7-5.1 [facility] Comment on above: Order Comment: Claudia howell Type: BLOOD SPECIMEN Ordering Facility: [facility] Address: [address] [id number] Performed By: #### 3 4528-0 #### [facility] CLIA [id number] [address] [place] [address] [place] Sodium [Moles/Vol] 129 mmol/L Low 136-144 [facility] Comment on above: Order Comment: Speci men Type: BLOOD SPECIMEN Ordering Facility: [facility] Address: [address] [place] [address] Performed By: #### 3 4528-0 #### [facility] CLIA [id number] 1 [place] [address] [place] Urea nitrogen [Mass/Vol] 21 mg/dL Normal 7-21 [facility] Comment on above: Order Comment: Speci men Type: BLOOD SPECIMEN Ordering Facility: [facility] Address: [address] [place] [address] Performed By: #### 3 4528-0 #### [facility] CLIA [id number] [address] [place] CBC W Auto Differential pane l (Bld)on 02-08-2025 Basophils (Bld) [#/Vol] 0.04 10*3/uL Normal <0.11 [facility] Comment on above: Order Comment: Speci men Type: BLOOD SPECIMEN Ordering Facility: [facility] Address: [address] [place] [address] Performed By: #### 2 4321-2 #### [facility] CLIA [id number] [address] [place] Basophils/100 WBC (Bld) 0.9 % Normal [facility] Comment on above: Order Comment: Speci men Type: BLOOD SPECIMEN Ordering Facility: [facility] Address: [address] [place] [address] Performed By: #### 2 4321-2 #### [facility] CLIA [id number] [address] STATES [facility] Differential cell count method Nom (Bld) Auto Normal [facility] Comment on above: Order Comment: Speci men Type: BLOOD SPECIMEN Ordering Facility: [facility] Address: [facility] [place] [address] Performed By: #### 2 4321-2 #### [facility] CLIA [id number] [address] [place] Eosinophils (Bld) [#/Vol] 10*3/uL Normal <0.46 [facility] Comment on above: Order Comment: Speci men Type: BLOOD SPECIMEN Ordering Facility: [facility] Address: [address] [place] [address] Performed By: #### 2 4321-2 #### [facility] CLIA [id number] [address] [place] Eosinophils/100 WBC (Bld) 0.5 % Normal [facility] Comment on above: Order Comment: Speci men Type: BLOOD SPECIMEN Ordering Facility: [facility] Address: [facility] [place] [address] Performed By: #### 2 1-2 #### [facility] CLIA [id number] [address] [place] Erythrocyte distribution width (RBC) [Ratio] 16.2 % High 11.5-15.0 [facility] Comment on above: Order Comment: Speci men Type: BLOOD SPECIMEN Ordering Facility: [facility] Address: [address] [place] [address] Performed By: #### 2 1-2 #### [facility] CLIA [id number] [address] [place] Hematocrit (Bld) [Volume fraction] 36.0 % Normal 36.0-46.0 [facility] Comment on above: Order Comment: Speci men Type: BLOOD SPECIMEN Ordering Facility: [facility] Address: [address] [place] [address] Performed By: #### 2 4321-2 #### [facility] CLIA [id number] [address] [place] Hemoglobin (Bld) [Mass/Vol] 11.2 g/dL Low 11.5-15.5 [facility] Comment on above: Order Comment: Speci men Type: BLOOD SPECIMEN Ordering Facility: [facility] Address: [facility] [place] [address] Performed By: #### 2 4321-2 #### [facility] CLIA [id number] [address] [place] Immature granulocytes (Bld) [#/Vol] 10*3/uL Normal <0.10 [facility] Comment on above: Order Comment: Speci men Type: BLOOD SPECIMEN Ordering Facility: [facility] Address: [address] [place] [address] Performed By: #### 2 4321-2 #### [facility] CLIA [id number] [address] OF [facility] Immature granulocytes/100 WBC (Bld) 0.5 % Normal [facility] Comment on above: Order Comment: Speci men Type: BLOOD SPECIMEN Ordering Facility: [facility] Address: [address] [place] [address] Performed By: #### 2 4321-2 #### [facility] CLIA [id number] [address] [place] Lymphocytes (Bld) [#/Vol] 0.41 10*3/uL Low 1.00-4.00 [facility] Comment on above: Order Comment: Speci men Type: BLOOD SPECIMEN Ordering Facility: [facility] Address: [address] [place] [address] Performed By: #### 2 4321-2 #### [facility] CLIA [id number] [address] Lymphocytes/100 WBC (Bld) 9.3 % Normal [facility] Comment on above: Order Comment: Speci men Type: BLOOD SPECIMEN Ordering Facility: [facility] Address: [address] [place] [address] Performed By: #### 2 4321-2 #### [facility] CLIA [id number] [address] [place] MCH (RBC) [Entitic mass] 31.5 pg Normal 26.0-34.0 [facility] Comment on above: Order Comment: Speci men Type: BLOOD SPECIMEN Ordering Facility: [facility] Address: [address] [place], [place] [address] Performed By: #### 2 4321-2 #### [facility] CLIA [id number] [address] MCHC (RBC) [Mass/Vol] 31.1 g/dL Normal 30.5-36.0 [facility] Comment on above: Order Comment: Speci men Type: BLOOD SPECIMEN Ordering Facility: [facility] Address: [address] [place] [address] Performed By: #### 2 4321-2 #### [facility] CLIA [id number] [address] MCV (RBC) [Entitic vol] 101.1 fL High 80.0-100.0 [facility] Comment on above: Order Comment: Speci men Type: BLOOD SPECIMEN Ordering Facility: [facility] Address: [address] [place] [address] Performed By: #### 2 4321-2 #### [facility] CLIA [id number] [address] Monocytes (Bld) [#/Vol] 0.74 10*3/uL Normal <0.87 [facility] Comment on above: Order Comment: Speci men Type: BLOOD SPECIMEN Ordering Facility: [facility] Address: [address] [place] [address] Performed By: #### 2 4321-2 #### [facility] CLIA [id number] [address] Monocytes/100 WBC (Bld) 16.7 % Normal [facility] Comment on above: Order Comment: Speci men Type: BLOOD SPECIMEN Ordering Facility: [facility] Address: [address] [place] [address] Performed By: #### 2 4321-2 #### [facility] CLIA [id number] [address] [place] Neutrophils (Bld) [#/Vol] 3.20 10*3/uL Normal 1.45-7.50 [facility] Comment on above: Order Comment: Speci men Type: BLOOD SPECIMEN Ordering Facility: [facility] Address: [address] [place] [address] Performed By: #### 2 4321-2 #### [facility] CLIA [id number] [address] [place] Neutrophils/100 WBC (Bld) 72.1 % Normal [facility] Comment on above: Order Comment: Speci men Type: BLOOD SPECIMEN Ordering Facility: [facility] Address: [address] [place] [address] Performed By: #### 2 4321-2 #### [facility] CLIA [id number] [address] [place] Nucleated RBC (Bld) [#/Vol] 10*3/uL Normal <0.01 [facility] Comment on above: Order Comment: Speci men Type: BLOOD SPECIMEN Ordering Facility: [facility] Address: [address] [place] [address] Performed By: #### 2 4321-2 #### [facility] CLIA [id number] [address] [place] Nucleated RBC/100 WBC (Bld) [Ratio] 0.0 /100 WBC Normal [facility] Comment on above: Order Comment: Speci men Type: BLOOD SPECIMEN Ordering Facility: [facility] Address: [address] [place] [address] Performed By: #### 2 4321-2 #### [facility] CLIA [id number] [address] [place] Platelet mean volume (Bld) [Entitic vol] 9.1 fL Normal 9.0-12.7 [facility] Comment on above: Order Comment: Speci men Type: BLOOD SPECIMEN Ordering Facility: [facility] Address: [address] [place] [address] Performed By: #### 2 4321-2 #### [facility] CLIA [id number] [address] [place] Platelets (Bld) [#/Vol] 155 10*3/uL Normal 150-400 [facility] Comment on above: Order Comment: Speci men Type: BLOOD SPECIMEN Ordering Facility: [facility] Address: [address] [place] [address] Performed By: #### 2 4321-2 #### [facility] CLIA [id number] [address] RBC (Bld) [#/Vol] 3.56 10*6/uL Low 3.90-5.20 [facility] Comment on above: Order Comment: Speci men Type: BLOOD SPECIMEN Ordering Facility: [facility] Address: [address] [place] [address] Performed By: #### 2 4321-2 #### [facility] CLIA [id number] [address] WBC (Bld) [#/Vol] 4.43 10*3/uL Normal 3.70-11.00 [facility] Comment on above: Order Comment: Speci men Type: BLOOD SPECIMEN Ordering Facility: [facility] Address: [address] [place] [address] Performed By: #### 2 4321-2 #### [facility] CLIA [id number] [address] CNDSon 02-08-2025 CNDS HNO ID: [id number] Author: LISA FISH MD Service: Hospital Medicine [...] Attending Provider: Lisa Fish MD Consulting: Susana Haji MD Primary Service: [facility] BUTLER Consulting: Adelia Sagastume MD MY CONDITION AT DISCHARGE: Stable REASON I WAS IN THE HOSPITAL: Rectus sheath hematoma SUMMARY OF WHAT HAPPENED WHILE I WAS IN THE HOSPITAL: Patient is a very pleasant 89-year-old female with a history of chronic atrial fibrillation, tricuspid regurgitation and pulmonary hypertension and who was transferred from [facility] where she had presented with rectus sheath [...] pleasant 89-year-old female presents as transfer from [facility] for rectus sheath hematoma. She was initially [...] Attending Provider: Lisa Fish MD Consulting: Susana Haji MD Primary Service: [facility] Consulting: Adelia Sagastume MD FINAL DIAGNOSIS: Rectus sheath hematoma Active [...] results. FOLLOW-UP APPOINTMENTS ALREADY SCHEDULED WITH A [facility] PROVIDER: No future appointments. Discharge Information Row Name ED to Hosp-Admission (Current) from 01/31/2025 in [facility] Phone# [phone] (more content not included)... Normal [facility] ECHOon 02-08-2025 Echocardiography Echocardiography Report: Transthoracic Echo [facility] Date of service: 02/08/2025 12:45:03 PM [facility] Ordering physician: HIMANSHU DECKER Exam indication: [...] * * Final * * * [facility] [employer] [facility] : [id number] Normal [facility] CBC W Auto Differential pane l (Bld)on 02-07-2025 Basophils (Bld) [#/Vol] 0.03 10*3/uL Normal <0.11 [facility] Comment on above: Order Comment: Claudia howell Type: BLOOD SPECIMEN Ordering Facility: [facility] Address: [address] [place] [address] Performed By: #### 3 4528-0 #### [facility] CLIA [id number] 1 [place] [address] [place] Basophils/100 WBC (Bld) 0.6 % Normal [facility] Comment on above: Order Comment: Sharnodai dante Type: BLOOD SPECIMEN Ordering Facility: [facility] Address: [address] [place] [address] Performed By: #### 3 4528-0 #### [facility] CLIA [id number] 1 [place] [address] [place] Differential cell count method Nom (Bld) Auto Normal [facility] Comment on above: Order Comment: Speci men Type: BLOOD SPECIMEN Ordering Facility: [facility] Address: [address] [place] [address] Performed By: #### 3 4528-0 #### [facility] CLIA [id number] [address] OF [facility] Eosinophils (Bld) [#/Vol] 0.05 10*3/uL Normal <0.46 [facility] Comment on above: Order Comment: Speci men Type: BLOOD SPECIMEN Ordering Facility: [facility] Address: [address] [place] [address] Performed By: #### 3 4528-0 #### [facility] CLIA [id number] [address] Eosinophils/100 WBC (Bld) 1.0 % Normal [facility] Comment on above: Order Comment: Speci men Type: BLOOD SPECIMEN Ordering Facility: [facility] Address: [address] [place] [address] Performed By: #### 3 4528-0 #### [facility] CLIA [id number] [address] Erythrocyte distribution width (RBC) [Ratio] 16.0 % High 11.5-15.0 [facility] Comment on above: Order Comment: Speci men Type: BLOOD SPECIMEN Ordering Facility: [facility] Address: [address] [place] [address] Performed By: #### 3 4528-0 #### [facility] CLIA [id number] [address] Hematocrit (Bld) [Volume fraction] 33.4 % Low 36.0-46.0 [facility] Comment on above: Order Comment: Speci men Type: BLOOD SPECIMEN Ordering Facility: [facility] Address: [facility] [place] [address] Performed By: #### 3 4528-0 #### [facility] CLIA [id number] [address] [place] Hemoglobin (Bld) [Mass/Vol] 10.8 g/dL Low 11.5-15.5 [facility] Comment on above: Order Comment: Speci men Type: BLOOD SPECIMEN Ordering Facility: [facility] Address: [address] [place] [address] Performed By: #### 3 4528-0 #### [facility] CLIA [id number] 1 [place] [address] [place] Immature granulocytes (Bld) [#/Vol] 0.05 10*3/uL Normal <0.10 [facility] Comment on above: Order Comment: Speci men Type: BLOOD SPECIMEN Ordering Facility: [facility] Address: [address] [place] [address] Performed By: #### 3 4528-0 #### [facility] CLIA [id number] [address] [place] Immature granulocytes/100 WBC (Bld) 1.0 % Normal [facility] Comment on above: Order Comment: Speci men Type: BLOOD SPECIMEN Ordering Facility: [facility] Address: [address] [place] [address] Performed By: #### 3 4528-0 #### [facility] CLIA [id number] [address] [place] [address] [place] Lymphocytes (Bld) [#/Vol] 0.52 10*3/uL Low 1.00-4.00 [facility] Comment on above: Order Comment: Speci men Type: BLOOD SPECIMEN Ordering Facility: [facility] Address: [address] [place] [address] Performed By: #### 3 4528-0 #### [facility] CLIA [id number] 1 [place] [address] [place] Lymphocytes/100 WBC (Bld) 10.8 % Normal [facility] Comment on above: Order Comment: Speci men Type: BLOOD SPECIMEN Ordering Facility: [facility] Address: [address] [place] [address] Performed By: #### 3 4528-0 #### [facility] CLIA [id number] [address] MCH (RBC) [Entitic mass] 32.0 pg Normal 26.0-34.0 [facility] Comment on above: Order Comment: Speci men Type: BLOOD SPECIMEN Ordering Facility: [facility] Address: [address] [place] [address] Performed By: #### 3 4528-0 #### [facility] CLIA [id number] [address] OF [facility] MCHC (RBC) [Mass/Vol] 32.3 g/dL Normal 30.5-36.0 [facility] Comment on above: Order Comment: Speci men Type: BLOOD SPECIMEN Ordering Facility: [facility] Address: [address] [place] [address] Performed By: #### 3 4528-0 #### [facility] CLIA [id number] [address] MCV (RBC) [Entitic vol] 98.8 fL Normal 80.0-100.0 [facility] Comment on above: Order Comment: Speci men Type: BLOOD SPECIMEN Ordering Facility: [facility] Address: [address] [place] [address] Performed By: #### 3 4528-0 #### [facility] CLIA [id number] [address] Monocytes (Bld) [#/Vol] 0.76 10*3/uL Normal <0.87 [facility] Comment on above: Order Comment: Speci men Type: BLOOD SPECIMEN Ordering Facility: [facility] Address: [address] [place] [address] Performed By: #### 3 4528-0 #### [facility] CLIA [id number] [address] Monocytes/100 WBC (Bld) 15.7 % Normal [facility] Comment on above: Order Comment: Speci men Type: BLOOD SPECIMEN Ordering Facility: [facility] Address: [address] [place] [address] Performed By: #### 3 4528-0 #### [facility] CLIA [id number] [address] [place] Neutrophils (Bld) [#/Vol] 3.42 10*3/uL Normal 1.45-7.50 [facility] Comment on above: Order Comment: Speci men Type: BLOOD SPECIMEN Ordering Facility: [facility] Address: [address] [place] [address] Performed By: #### 3 4528-0 #### [facility] CLIA [id number] [address] [place] Neutrophils/100 WBC (Bld) 70.9 % Normal [facility] Comment on above: Order Comment: Speci men Type: BLOOD SPECIMEN Ordering Facility: [facility] Address: [address] [place] [address] Performed By: #### 3 4528-0 #### [facility] CLIA [id number] [address] [place] Nucleated RBC (Bld) [#/Vol] 10*3/uL Normal <0.01 [facility] Comment on above: Order Comment: Speci men Type: BLOOD SPECIMEN Ordering Facility: [facility] Address: [address] [place] [address] Performed By: #### 3 4528-0 #### [facility] CLIA [id number] [address] [place] Nucleated RBC/100 WBC (Bld) [Ratio] 0.0 /100 WBC Normal [facility] Comment on above: Order Comment: Speci men Type: BLOOD SPECIMEN Ordering Facility: [facility] Address: [address] [place] [address] Performed By: #### 3 4528-0 #### [facility] CLIA [id number] [address] [place] Platelet mean volume (Bld) [Entitic vol] 9.7 fL Normal 9.0-12.7 [facility] Comment on above: Order Comment: Speci men Type: BLOOD SPECIMEN Ordering Facility: [facility] Address: [address] [place] [address] Performed By: #### 3 4528-0 #### [facility] CLIA [id number] [address] Platelets (Bld) [#/Vol] 158 10*3/uL Normal 150-400 [facility] Comment on above: Order Comment: Speci men Type: BLOOD SPECIMEN Ordering Facility: [facility] Address: [address] [place] [address] Performed By: #### 3 4528-0 #### [facility] CLIA [id number] [address] RBC (Bld) [#/Vol] 3.38 10*6/uL Low 3.90-5.20 [facility] Comment on above: Order Comment: Speci men Type: BLOOD SPECIMEN Ordering Facility: [facility] Address: [address] [place] [address] Performed By: #### 3 4528-0 #### [facility] CLIA [id number] [address] WBC (Bld) [#/Vol] 4.83 10*3/uL Normal 3.70-11.00 [facility] Comment on above: Order Comment: Speci men Type: BLOOD SPECIMEN Ordering Facility: [facility] Address: [address] [place] [address] Performed By: #### 3 4528-0 #### [facility] CLIA [id number] [address] OF [facility] NUTRITIONon 02-07-2025 NUTRITION HNO ID: [id number] Author: DIONICIO ALVAREZ DTR Service: Nutrition Therapy Author Type: Spectrographic Analyst Type: Nutrition Filed: 02/07/2025 13:40 Note Text: NUTRITION THERAPY [employer]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 NOTE SERVICE DATE: 02/07/2025 SERVICE TIME: Start [...] units Time Spent (mins): 30 SIGNATURE: Dionicio Alvarez DTR PATIENT NAME: Ana Maria Avalos DATE: February 07, 2025 TIME: 1:36 PM [facility] PT EDon 02-07-2025 PT ED HNO ID: [id number] Author: DIONICIO ALVAREZ DTR Service: Nutrition Therapy Author Type: Spectrographic Analyst Type: Patient Education Filed: 02/07/2025 13:40 Note [...] Routine Care : 2 units SIGNATURE: Dionicio Alvarez DTR PATIENT NAME: Ana Maria Avalos DATE: February 07, 2025 TIME: 1:40 PM PAGER: Normal [facility] PT panel Coag (PPP)on 2024 INR Coag (PPP) [Relative time] 1.1 {INR} Normal 0.9-1.3 [facility] Comment on above: Order Comment: Speci men Type: BLOOD SPECIMEN Ordering Facility: [facility] Address: [address] [place] [address] Result Comment: [place] min K Antagonist (VKA) Therapeutic Range: INR 2 to 3 (Target INR of 2.5) Note: For patients treated with VKA drugs, such as warfarin, the [place] [employer] 2012 Guideline recommends [...] Chest 2012, 141:7S-47S Madelaine RA et al. [facility] 2017, 70: 252-289 Performed By: #### 3 4528-0 #### [facility] CLIA [id number] [address] [place] [address] STATES OF [facility] PT Coag (PPP) [Time] 12.3 s Normal 9.7-13.0 [facility] Comment on above: Order Comment: Claudia howell Type: BLOOD SPECIMEN Ordering Facility: [facility] Address: [address] [place] [address] Performed By: #### 3 4528-0 #### [facility] CLIA [id number] [address] [place] [address] CBC W Auto Differential pane l (Bld)on 02-06-2025 Basophils (Bld) [#/Vol] 0.03 10*3/uL Normal <0.11 [facility] Comment on above: Order Comment: Claudia howell Type: BLOOD SPECIMEN Ordering Facility: [facility] Address: [address] [id number] Performed By: #### 3 4528-0 #### [facility] CLIA [id number] [address] Basophils/100 WBC (Bld) 0.6 % Normal [facility] Comment on above: Order Comment: Speci men Type: BLOOD SPECIMEN Ordering Facility: [facility] Address: [facility] [place] [address] Performed By: #### 3 4528-0 #### [facility] CLIA [id number] [address] [place] Differential cell count method Nom (Bld) Auto Normal [facility] Comment on above: Order Comment: Speci men Type: BLOOD SPECIMEN Ordering Facility: [facility] Address: [address] [place] [address] Performed By: #### 3 4528-0 #### [facility] CLIA [id number] [address] OF [facility] Eosinophils (Bld) [#/Vol] 0.06 10*3/uL Normal <0.46 [facility] Comment on above: Order Comment: Speci men Type: BLOOD SPECIMEN Ordering Facility: [facility] Address: [address] [place] [address] Performed By: #### 3 4528-0 #### [facility] CLIA [id number] [address] Eosinophils/100 WBC (Bld) 1.1 % Normal [facility] Comment on above: Order Comment: Speci men Type: BLOOD SPECIMEN Ordering Facility: [facility] Address: [address] [place] [address] Performed By: #### 3 4528-0 #### [facility] CLIA [id number] [address] [place] Erythrocyte distribution width (RBC) [Ratio] 15.8 % High 11.5-15.0 [facility] Comment on above: Order Comment: Speci men Type: BLOOD SPECIMEN Ordering Facility: [facility] Address: [address] [place] [address] Performed By: #### 3 4528-0 #### [facility] CLIA [id number] [address] [place] Hematocrit (Bld) [Volume fraction] 32.5 % Low 36.0-46.0 [facility] Comment on above: Order Comment: Speci men Type: BLOOD SPECIMEN Ordering Facility: [facility] Address: [address] [place] [address] Performed By: #### 3 4528-0 #### [facility] CLIA [id number] [address] [place] Hemoglobin (Bld) [Mass/Vol] 10.5 g/dL Low 11.5-15.5 [facility] Comment on above: Order Comment: Speci men Type: BLOOD SPECIMEN Ordering Facility: [facility] Address: [address] [place] [address] Performed By: #### 3 4528-0 #### [facility] CLIA [id number] [address] [place] Immature granulocytes (Bld) [#/Vol] 0.03 10*3/uL Normal <0.10 [facility] Comment on above: Order Comment: Speci men Type: BLOOD SPECIMEN Ordering Facility: [facility] Address: [address] [place] [address] Performed By: #### 3 4528-0 #### [facility] CLIA [id number] [address] Immature granulocytes/100 WBC (Bld) 0.6 % Normal [facility] Comment on above: Order Comment: Speci men Type: BLOOD SPECIMEN Ordering Facility: [facility] Address: [address] [place] [address] Performed By: #### 3 4528-0 #### [facility] CLIA [id number] [address] [place] Lymphocytes (Bld) [#/Vol] 0.82 10*3/uL Low 1.00-4.00 [facility] Comment on above: Order Comment: Speci men Type: BLOOD SPECIMEN Ordering Facility: [facility] Address: [address] [place] [address] Performed By: #### 3 4528-0 #### [facility] CLIA [id number] [address] Lymphocytes/100 WBC (Bld) 15.4 % Normal [facility] Comment on above: Order Comment: Speci men Type: BLOOD SPECIMEN Ordering Facility: [facility] Address: [address] [place] [address] Performed By: #### 3 4528-0 #### [facility] CLIA [id number] [address] MCH (RBC) [Entitic mass] 31.6 pg Normal 26.0-34.0 [facility] Comment on above: Order Comment: Speci men Type: BLOOD SPECIMEN Ordering Facility: [facility] Address: [address] [place] [address] Performed By: #### 3 4528-0 #### [facility] CLIA [id number] [address] MCHC (RBC) [Mass/Vol] 32.3 g/dL Normal 30.5-36.0 [facility] Comment on above: Order Comment: Speci men Type: BLOOD SPECIMEN Ordering Facility: [facility] Address: [address] [place] [address] Performed By: #### 3 4528-0 #### [facility] CLIA [id number] [address] MCV (RBC) [Entitic vol] 97.9 fL Normal 80.0-100.0 [facility] Comment on above: Order Comment: Speci men Type: BLOOD SPECIMEN Ordering Facility[facility] Address: [address] [place] [address] Performed By: #### 3 4528-0 #### [facility] CLIA [id number] [address] Monocytes (Bld) [#/Vol] 0.92 10*3/uL High <0.87 [facility] Comment on above: Order Comment: Speci men Type: BLOOD SPECIMEN Order[facility] Facility[facility] Address: [address] [place] [address] Performed By: #### 3 4528-0 #### [facility] CLIA [id number] [address] Monocytes/100 WBC (Bld) 17.3 % Normal [facility] Comment on above: Order Comment: Speci men Type: BLOOD SPECIMEN Ordering Facility: [facility] Address: [address] [place] [address] Performed By: #### 3 4528-0 #### [facility] CLIA [id number] [address] [place] Neutrophils (Bld) [#/Vol] 3.45 10*3/uL Normal 1.45-7.50 [facility] Comment on above: Order Comment: Speci men Type: BLOOD SPECIMEN Ordering Facility: [facility] Address: [address] [place] [address] Performed By: #### 3 4528-0 #### [facility] CLIA [id number] [address] Neutrophils/100 WBC (Bld) 65.0 % Normal [facility] Comment on above: Order Comment: Speci men Type: BLOOD SPECIMEN Order[facility] Facility[facility] Address: [address] [place] [address] Performed By: #### 3 4528-0 #### [facility] CLIA [id number] [address] [place] Nucleated RBC (Bld) [#/Vol] 10*3/uL Normal <0.01 [facility] Comment on above: Order Comment: Speci men Type: BLOOD SPECIMEN Ordering Facility[facility] Address: [address] [place] [address] Performed By: #### 3 4528-0 #### [facility] CLIA [id number] [address] [place] Nucleated RBC/100 WBC (Bld) [Ratio] 0.0 /100 WBC Normal [facility] Comment on above: Order Comment: Speci men Type: BLOOD SPECIMEN Order[facility] Address: [address] [place] [address] Performed By: #### 3 4528-0 #### [facility] CLIA [id number] [address] [place] Platelet mean volume (Bld) [Entitic vol] 8.9 fL Low 9.0-12.7 [facility] Comment on above: Order Comment: Speci men Type: BLOOD SPECIMEN Order[facility] Address: [address] [place] [address] Performed By: #### 3 4528-0 #### [facility] CLIA [id number] [address] [place] Platelets (Bld) [#/Vol] 141 10*3/uL Low 150-400 [facility] Comment on above: Order Comment: Speci men Type: BLOOD SPECIMEN Order[facility] Address: [address] [place] [address] Performed By: #### 3 4528-0 #### [facility] CLIA [id number] 1 [place] [address] [place] RBC (Bld) [#/Vol] 3.32 10*6/uL Low 3.90-5.20 [facility] Comment on above: Order Comment: Speci men Type: BLOOD SPECIMEN Order[facility] Address: [address] [place] [address] Performed By: #### 3 4528-0 #### [facility] CLIA [id number] [address] [place] WBC (Bld) [#/Vol] 5.31 10*3/uL Normal 3.70-11.00 [facility] Comment on above: Order Comment: Speci men Type: BLOOD SPECIMEN Order[facility] Address: [address] [place] [address] Performed By: #### 3 4528-0 #### [facility] CLIA [id number] [address] STATES OF [facility] CONSULTon 02-06-2025 CONSULT HNO ID: [id number] Author: KYLIE VILLATORO MD Service: Clinical Cardiology [...] pressure 15 mmHg Ms. Avalos presented to [place] for abdominal discomfort. She was found to [...] BREAST PERC VACUUM/ROTN 12/27/2009 CARDIOVERSION 03/03/2011 In [place] OPEN [place] FEMORAL SUPRACONDYLAR FRACTURE W/XTN Left 08/29/2021 PAST SURGICAL HISTORY OF right ankle ORIF for triamalleolar fracture S $ KNEE TOTAL ARTHR PRASHANTH Left 05/07/2015 [facility] Knsaurav. LTK replacement arthroplasty SIGMOIDOSCOPY FLX [...] Yes No Sig: Take one(1) tablet daily. Tbuye-7-AZF-EPA-Fish Oil (FISH OIL) 1,000 mg (120 mg-180 [...] No Sig: Take 112 mcg by mouth d (more content not included)... Normal [facility] ECG COMPLETEon 02-06-2025 ECG COMPLETE Ventricular Rate : 8 9 BPM QRS Duration : 88 ms Q-T Interval : 386 ms QTC Calculation(Bazett) : 469 ms Calculated R [place] : 96 degrees Calculated T [place] : 188 degrees ATRIAL FIBRILLATION RIGHTWARD AXIS ST & T WAVE ABNORMALITY, CONSIDER INFEROLATERAL ISCHEMIA ABNORMAL ECG WHEN COMPARED WITH ECG OF 30-Aug-2021 12:25, SIGNIFICANT CHANGES HAVE OCCURRED Confirmed by MD CASSIDY VINAY ([id number]) on 02/06/2025 5:38:40 PM NAME : ANA MARIA AVALOS PID : [id number] : 1935 Gender : Female Race : ORD : [id number] Procedure Date : Feb 06 2025 10:07:19 Edit Date : Feb 06 2025 17:38:42 Diagnosis: ATRIAL FIBRILLATION RIGHTWARD AXIS ST & T WAVE ABNORMALITY, CONSIDER INFEROLATERAL ISCHEMIA ABNORMAL ECG WHEN COMPARED WITH ECG OF 30-Aug-2021 12:25, SIGNIFICANT CHANGES HAVE OCCURRED Confirmed by MD CASSIDY VINAY ([id number]) on 02/06/2025 5:38:40 PM Test Reason : Arrhythmia Location : [address] : [place] [address] Overread By : MD CASSIDY VINAY Edited By : MD CASSIDY VINAY Referred By : , Acquired by : JACK ROWE [facility] PT panel Coag (PPP)on 2024 INR Coag (PPP) [Relative time] 1.3 {INR} Normal 0.9-1.3 [facility] Comment on above: Order Comment: Speci men Type: BLOOD SPECIMEN [facility] Address: [address] [place] [address] Result Comment: [place] min K Antagonist (VKA) Therapeutic Range: INR 2 to 3 (Target INR of 2.5) Note: For patients treated with VKA drugs, such as warfarin, the [place] [employer] 2012 Guideline recommends [...] Chest 2012, 141:7S-47S Madelaine RA, et al. [facility] 2017, 70: 252-289 Performed By: #### 3 4528-0 #### [facility] CLIA [id number] [address] [place] [address] OF [facility] PT Coag (PPP) [Time] 13.5 s High 9.7-13.0 [facility] Comment on above: Order Comment: Speci men Type: BLOOD SPECIMEN [facility] Address: [address] [place] [address] Performed By: #### 3 4528-0 #### [facility] CLIA [id number] [address] THERAPY NTon 02-06-2025 THERAPY NT HNO ID: [id number] Author: ELLYN AUGUST OTR/L Service: Occupational Therapy Author Type: Occupational Therapist Type: Therapy (PT/OT/Speech/Resp) Filed: 02/06/2025 10:46 Note Text: Occupational Therapy Evaluation Summary SERVICE DATE: 02/06/2025 SERVICE TIME: 1516 to 1005 ROOM: [id number] OT 6 Clicks Score: 23 DISCHARGE RECOMMENDATIONS [...] Bed/Chair Alarm CURRENT HOSPITAL COURSE Presented to [place] ED with abd pain--found to have abd [...] Unsteadiness on feet TREATMENT INTERVENTIONS Evaluation, Self Prison Management (60899) Timed Code Treatment (minutes): 24 Skilled Treatment Time (minutes): 49 $ Evaluation - Low (76544) Billed Units: 1 unit Self Prison Management (84233) Treatment Minutes: 24 $ Self Prison Management (52701) Billed Units: 2 units TRAINING AND EDUCATION PROVIDED Energy Conservation, Transfer - Sit to Stand, Transfer - Toilet/Commode, Toileting , Standing Balance to Improve [place] with ADLs/Self-Care, Sitting Balance to Improve [place] with ADLs/Self-Care, Role of Occupational Therapy, Safety/Judgment, [...] Limitation Comments Strength Limitation Comments: 3+; 4- dist (more content not included)... Normal [facility] Basic metabolic 2000 panelon 02-05-2025 Anion gap [Moles/Vol] 10 mmol/L Normal 8-15 [facility] Comment on above: Order Comment: Speci men Type: BLOOD SPECIMENOrdering Facility: [facility] Address: [address] [place] [address] Performed By: #### 2 4321-2 ####[facility] [id number] [place] [address] [place] Calcium [Mass/Vol] 8.7 mg/dL Normal 8.5-10.2 [facility] Comment on above: Order Comment: Speci men Type: BLOOD SPECIMENOrdering Facility: [facility] Address: [address] [place] [address] Performed By: #### 2 4321-2 ####[facility] [id number] [place] [address] [place] Chloride [Moles/Vol] 100 mmol/L Normal 98-107 [facility] Comment on above: Order Comment: Speci men Type: BLOOD SPECIMENOrdering Facility: [facility] Address: [address] [place] [address] Performed By: #### 2 4321-2 ####[facility] [id number] [address] [place] CO2 [Moles/Vol] 24 mmol/L Normal 22-30 [facility] Comment on above: Order Comment: Speci men Type: BLOOD SPECIMENOrdering Facility: [facility] Address: [address] [place] [address] Performed By: #### 2 4321-2 ####[facility] [id number] [place] [address] [place] Creatinine [Mass/Vol] 1.03 mg/dL High 0.58-0.96 [facility] Comment on above: Order Comment: Speci men Type: BLOOD SPECIMENOrdering Facility: [facility] Address: [address] [place] [address] Performed By: #### 2 4321-2 ####[facility] [id number] [address] Creatinine and Glomerular filtration rate.predicted panel (S/P/Bld) 52 mL/min/1.73m??? Low >=60 [facility] Comment on above: Order Comment: Speci men Type: BLOOD SPECIMENOrdering Facility: [facility] Address: [address] [place] [address] Result Comment: Kiki mated Glomerular Filtration Rate (eGFR) is calculated using the 2020 CKD-EPI creatinine equation. This equation utilizes serum creatinine, sex, and age as parameters. The creatinine assay has traceable calibration to isotope dilution-mass spectrometry. Refer to KDIGO guidelines for clinical interpretation. In patients with unstable renal function, e.g. those with acute kidney injury, the eGFR may not accurately reflect actual GFR. Performed By: #### 2 4321-2 ####[facility] [id number] [place] [address] [place] Glucose [Mass/Vol] 122 mg/dL High 74-99 [facility] Comment on above: Order Comment: Speci men Type: BLOOD SPECIMENOrdering Facility: [facility] Address: [address] [place] [address] Result Comment: The [place] Diabetes Association (ADA) provides guidance for cutoff [...] Standards of Medical Care in Diabetes 2016, [place] [employer]. Diabetes Care. 2016.39(Suppl 1). Performed By: #### 2 4321-2 ####[facility] [id number] [place] [address] [place] Potassium [Moles/Vol] 4.9 mmol/L Normal 3.7-5.1 [facility] Comment on above: Order Comment: Sharondai men Type: BLOOD SPECIMENOrdering Facility: [facility] Address: [address] [place] [id number] Performed By: #### 2 4321-2 ####[facility] [id number] [place] [id number] [place] Sodium [Moles/Vol] 134 mmol/L Low 136-144 [facility] Comment on above: Order Comment: Speci men Type: BLOOD SPECIMENOrdering Facility: [facility] Address: [address] [place] [address] Performed By: #### 2 4321-2 ####[facility] [id number] [address] STATES [facility] Urea nitrogen [Mass/Vol] 25 mg/dL High 7-21 [facility] Comment on above: Order Comment: Speci men Type: BLOOD SPECIMENOrdering Facility: [facility] Address: [address] [place] [address] Performed By: #### 2 4321-2 ####[facility] [id number] [address] OF [facility] CBC panel Auto (Bld)on 02-05 Erythrocyte distribution width (RBC) [Ratio] 15.7 % High 11.5-15.0 [facility] Comment on above: Order Comment: Speci men Type: BLOOD SPECIMEN Ordering Facility: [facility] Address: [address] [place] [address] Performed By: #### 3 4528-0 #### [facility] CLIA [id number] [address] STATES OF [facility] Hematocrit (Bld) [Volume fraction] 37.2 % Normal 36.0-46.0 [facility] Comment on above: Order Comment: Speci men Type: BLOOD SPECIMEN Ordering Facility: [facility] Address: [address] [place] [address] Performed By: #### 3 4528-0 #### [facility] CLIA [id number] [address] Hemoglobin (Bld) [Mass/Vol] 11.6 g/dL Normal 11.5-15.5 [facility] Comment on above: Order Comment: Speci men Type: BLOOD SPECIMEN Ordering Facility: [facility] Address: [address] [place] [address] Performed By: #### 3 4528-0 #### [facility] CLIA [id number] [address] MCH (RBC) [Entitic mass] 31.7 pg Normal 26.0-34.0 [facility] Comment on above: Order Comment: Speci men Type: BLOOD SPECIMEN Ordering Facility: [facility] Address: [address] [place] [address] Performed By: #### 3 4528-0 #### [facility] CLIA [id number] [address] MCHC (RBC) [Mass/Vol] 31.2 g/dL Normal 30.5-36.0 [facility] Comment on above: Order Comment: Speci men Type: BLOOD SPECIMEN Ordering Facility: [facility] Address: [address] [place] [address] Performed By: #### 3 4528-0 #### [facility] CLIA [id number] [address] OF [facility] MCV (RBC) [Entitic vol] 101.6 fL High 80.0-100.0 [facility] Comment on above: Order Comment: Speci men Type: BLOOD SPECIMEN Ordering Facility: [facility] Address: [address] [place] [address] Performed By: #### 3 4528-0 #### [facility] CLIA [id number] [address] Nucleated RBC (Bld) [#/Vol] 10*3/uL Normal <0.01 [facility] Comment on above: Order Comment: Speci men Type: BLOOD SPECIMEN Ordering Facility: [facility] Address: [address] [place] [address] Performed By: #### 3 4528-0 #### [facility] CLIA [id number] [address] Platelet mean volume (Bld) [Entitic vol] 9.2 fL Normal 9.0-12.7 [facility] Comment on above: Order Comment: Speci men Type: BLOOD SPECIMEN Ordering Facility: [facility] Address: [address] [place] [address] Performed By: #### 3 4528-0 #### [facility] CLIA [id number] [address] Platelets (Bld) [#/Vol] 168 10*3/uL Normal 150-400 [facility] Comment on above: Order Comment: Claudia howell Type: BLOOD SPECIMEN Ordering Facility: [facility] Address: [address] [place] [address] Performed By: #### 3 4528-0 #### [facility] CLIA [id number] [address] [place] RBC (Bld) [#/Vol] 3.66 10*6/uL Low 3.90-5.20 [facility] Comment on above: Order Comment: Claudia howell Type: BLOOD SPECIMEN Ordering Facility: [facility] Address: [address] [place] [address] Performed By: #### 3 4528-0 #### [facility] CLIA [id number] [address] WBC (Bld) [#/Vol] 5.27 10*3/uL Normal 3.70-11.00 [facility] Comment on above: Order Comment: Claudia howell Type: BLOOD SPECIMEN Ordering Facility: [facility] Address: [address] [place] [address] Performed By: #### 3 4528-0 #### [facility] CLIA [id number] [address] PT panel Coag (PPP)on 2024 INR Coag (PPP) [Relative time] 1.3 {INR} Normal 0.9-1.3 [facility] Comment on above: Order Comment: Claudia howell Type: BLOOD SPECIMEN Ordering Facility: [facility] Address: [address] [place] [address] Result Comment: [place]ton min K Antagonist (VKA) Therapeutic Range: INR 2 to 3 (Target INR of 2.5) Note: For patients treated with VKA drugs, such as warfarin, the [place] [employer] 2012 Guideline recommends [...] Chest 2012, 141:7S-47S Madelaine RA, et al. [facility] 2017, 70: 252-289 Performed By: #### 3 4528-0 #### [facility] CLIA [id number] [address] PT Coag (PPP) [Time] 14.2 s High 9.7-13.0 [facility] Comment on above: Order Comment: Speci dante Type: BLOOD SPECIMEN Ordering Facility: [facility] Address: [address] [place] [address] Performed By: #### 3 4528-0 #### [facility] CLIA [id number] [address] CBC W Auto Differential pane l (Bld)on 02-04-2025 Basophils (Bld) [#/Vol] 0.04 10*3/uL Normal <0.11 [facility] Comment on above: Order Comment: Sharondai dante Type: BLOOD SPECIMEN Ordering Facility: [facility] Address: [address] [place] [address] Performed By: #### 3 4528-0 #### [facility] CLIA [id number] [address] Basophils/100 WBC (Bld) 0.6 % Normal [facility] Comment on above: Order Comment: Sharondai dante Type: BLOOD SPECIMEN Ordering Facility: [facility] Address: [address] [place] [address] Performed By: #### 3 4528-0 #### [facility] CLIA [id number] [address] Differential cell count method Nom (Bld) Auto Normal [facility] Comment on above: Order Comment: Speci men Type: BLOOD SPECIMEN Ordering Facility: [facility] Address: [address] [place] [address] Performed By: #### 3 4528-0 #### [facility] CLIA [id number] [address] Eosinophils (Bld) [#/Vol] 0.12 10*3/uL Normal <0.46 [facility] Comment on above: Order Comment: Speci men Type: BLOOD SPECIMEN Ordering Facility: [facility] Address: [address] [place] [address] Performed By: #### 3 4528-0 #### [facility] CLIA [id number] [address] Eosinophils/100 WBC (Bld) 1.9 % Normal [facility] Comment on above: Order Comment: Speci men Type: BLOOD SPECIMEN Ordering Facility: [facility] Address: [address] [place] [address] Performed By: #### 3 4528-0 #### [facility] CLIA [id number] [address] Erythrocyte distribution width (RBC) [Ratio] 14.9 % Normal 11.5-15.0 [facility] Comment on above: Order Comment: Speci men Type: BLOOD SPECIMEN Ordering Facility: [facility] Address: [address] [place] [address] Performed By: #### 3 4528-0 #### [facility] CLIA [id number] [address] Hematocrit (Bld) [Volume fraction] 36.4 % Normal 36.0-46.0 [facility] Comment on above: Order Comment: Speci men Type: BLOOD SPECIMEN Ordering Facility: [facility] Address: [address] [place] [address] Performed By: #### 3 4528-0 #### [facility] CLIA [id number] [address] [place] Hemoglobin (Bld) [Mass/Vol] 11.4 g/dL Low 11.5-15.5 [facility] Comment on above: Order Comment: Speci men Type: BLOOD SPECIMEN Ordering Facility: [facility] Address: [address] [place] [address] Performed By: #### 3 4528-0 #### [facility] CLIA [id number] [address] [place] Immature granulocytes (Bld) [#/Vol] 0.03 10*3/uL Normal <0.10 [facility] Comment on above: Order Comment: Speci men Type: BLOOD SPECIMEN Ordering Facility: [facility] Address: [address] [place] [address] Performed By: #### 3 4528-0 #### [facility] CLIA [id number] [address] Immature granulocytes/100 WBC (Bld) 0.5 % Normal [facility] Comment on above: Order Comment: Speci men Type: BLOOD SPECIMEN Ordering Facility: [facility] Address: [address] [place] [address] Performed By: #### 3 4528-0 #### [facility] CLIA [id number] [address] [place] Lymphocytes (Bld) [#/Vol] 1.21 10*3/uL Normal 1.00-4.00 [facility] Comment on above: Order Comment: Speci men Type: BLOOD SPECIMEN Ordering Facility: [facility] Address: [address] [place] [address] Performed By: #### 3 4528-0 #### [facility] CLIA [id number] [address] [place] Lymphocytes/100 WBC (Bld) 18.7 % Normal [facility] Comment on above: Order Comment: Speci men Type: BLOOD SPECIMEN Ordering Facility: [facility] Address: [address] [place] [address] Performed By: #### 3 4528-0 #### [facility] CLIA [id number] [address] MCH (RBC) [Entitic mass] 31.5 pg Normal 26.0-34.0 [facility] Comment on above: Order Comment: Speci men Type: BLOOD SPECIMEN Ordering Facility: [facility] Address: [address] [place] [address] Performed By: #### 3 4528-0 #### [facility] CLIA [id number] [address] OF [facility] MCHC (RBC) [Mass/Vol] 31.3 g/dL Normal 30.5-36.0 [facility] Comment on above: Order Comment: Speci men Type: BLOOD SPECIMEN Ordering Facility: [facility] Address: [address] [place] [address] Performed By: #### 3 4528-0 #### [facility] CLIA [id number] [address] MCV (RBC) [Entitic vol] 100.6 fL High 80.0-100.0 [facility] Comment on above: Order Comment: Speci men Type: BLOOD SPECIMEN Ordering Facility[facility] Address: [address] [place] [address] Performed By: #### 3 4528-0 #### [facility] CLIA [id number] [address] Monocytes (Bld) [#/Vol] 1.17 10*3/uL High <0.87 [facility] Comment on above: Order Comment: Speci men Type: BLOOD SPECIMEN Ordering Facility: [facility] Address: [address] [place] [address] Performed By: #### 3 4528-0 #### [facility] CLIA [id number] [address] Monocytes/100 WBC (Bld) 18.1 % Normal [facility] Comment on above: Order Comment: Speci men Type: BLOOD SPECIMEN Ordering Facility[facility] Address: [address] [place] [address] Performed By: #### 3 4528-0 #### [facility] CLIA [id number] [address] [place] Neutrophils (Bld) [#/Vol] 3.91 10*3/uL Normal 1.45-7.50 [facility] Comment on above: Order Comment: Speci men Type: BLOOD SPECIMEN Order[facility] Facility[facility] Address: [address] [place] [address] Performed By: #### 3 4528-0 #### [facility] CLIA [id number] [address] Neutrophils/100 WBC (Bld) 60.2 % Normal [facility] Comment on above: Order Comment: Speci men Type: BLOOD SPECIMEN Ordering Facility[facility] Address: [address] [place] [address] Performed By: #### 3 4528-0 #### [facility] CLIA [id number] [address] [place] Nucleated RBC (Bld) [#/Vol] 10*3/uL Normal <0.01 [facility] Comment on above: Order Comment: Speci men Type: BLOOD SPECIMEN Order[facility] Address: [address] [place] [address] Performed By: #### 3 4528-0 #### [facility] CLIA [id number] [address] [place] Nucleated RBC/100 WBC (Bld) [Ratio] 0.0 /100 WBC Normal [facility] Comment on above: Order Comment: Speci men Type: BLOOD SPECIMEN Order[facility] Address: [address] [place] [address] Performed By: #### 3 4528-0 #### [facility] CLIA [id number] [address] [place] Platelet mean volume (Bld) [Entitic vol] 9.5 fL Normal 9.0-12.7 [facility] Comment on above: Order Comment: Speci men Type: BLOOD SPECIMEN Order[facility] Address: [address] [place] [address] Performed By: #### 3 4528-0 #### [facility] CLIA [id number] [address] Platelets (Bld) [#/Vol] 152 10*3/uL Normal 150-400 [facility] Comment on above: Order Comment: Speci men Type: BLOOD SPECIMEN [facility] Address: [address] [place] [address] Performed By: #### 3 4528-0 #### [facility] CLIA [id number] [address] STATES OF [facility] RBC (Bld) [#/Vol] 3.62 10*6/uL Low 3.90-5.20 [facility] Comment on above: Order Comment: Speci men Type: BLOOD SPECIMEN [facility] Address: [address] [place] [address] Performed By: #### 3 4528-0 #### [facility] CLIA [id number] [address] WBC (Bld) [#/Vol] 6.48 10*3/uL Normal 3.70-11.00 [facility] Comment on above: Order Comment: Speci men Type: BLOOD SPECIMEN [facility] Address: [address] [place] [address] Performed By: #### 3 4528-0 #### [facility] CLIA [id number] [address] [place] Basic metabolic 2000 panelon 02-03-2025 Anion gap [Moles/Vol] 9 mmol/L Normal 8-15 [facility] Comment on above: Order Comment: Speci men Type: BLOOD SPECIMENOrdering Facility: [facility] Address: [address] [place] [address] Performed By: #### 2 4321-2 ####[facility] [id number] [place] [address] [place] Calcium [Mass/Vol] 8.5 mg/dL Normal 8.5-10.2 [facility] Comment on above: Order Comment: Speci men Type: BLOOD SPECIMENOrdering Facility: [facility] Address: [address] [place] [address] Performed By: #### 2 4321-2 ####[facility] [id number] [place] [address] [place] Chloride [Moles/Vol] 101 mmol/L Normal 98-107 [facility] Comment on above: Order Comment: Speci men Type: BLOOD SPECIMENOrdering Facility: [facility] Address: [address] [place] [address] Performed By: #### 2 4321-2 ####[facility] [id number] [place] [address] [place] CO2 [Moles/Vol] 21 mmol/L Low 22-30 [facility] Comment on above: Order Comment: Speci men Type: BLOOD SPECIMENOrdering Facility: [facility] Address: [address] [place] [address] Performed By: #### 2 4321-2 ####[facility] [id number] [place] [address] [place] Creatinine [Mass/Vol] 1.26 mg/dL High 0.58-0.96 [facility] Comment on above: Order Comment: Speci men Type: BLOOD SPECIMENOrdering Facility: [facility] Address: [address] [place] [address] Performed By: #### 2 4321-2 ####[facility] [id number] [address] [place] Creatinine and Glomerular filtration rate.predicted panel (S/P/Bld) 41 mL/min/1.73m??? Low >=60 [facility] Comment on above: Order Comment: Speci men Type: BLOOD SPECIMENOrdering Facility: [facility] Address: [address] [place], [place] [address] Result Comment: Kiki mated Glomerular Filtration Rate (eGFR) is calculated using the 2020 CKD-EPI creatinine equation. This equation utilizes serum creatinine, sex, and age as parameters. The creatinine assay has traceable calibration to isotope dilution-mass spectrometry. Refer to KDIGO guidelines for clinical interpretation. In patients with unstable renal function, e.g. those with acute kidney injury, the eGFR may not accurately reflect actual GFR. Performed By: #### 2 4321-2 ####[facility] [id number] [place] [address] [place] Glucose [Mass/Vol] 122 mg/dL High 74-99 [facility] Comment on above: Order Comment: Claudia howell Type: BLOOD SPECIMENOrdering Facility: [facility] Address: [address] [place] [address] Result Comment: The [place] [employer] (ADA) provides guidance for cutoff [...] Standards of Medical Care in Diabetes 2016, [place] [employer]. Diabetes Care. 2016.39(Suppl 1). Performed By: #### 2 4321-2 ####[facility] [id number] [place] [address] [place] Potassium [Moles/Vol] 4.8 mmol/L Normal 3.7-5.1 [facility] Comment on above: Order Comment: Claudia howell Type: BLOOD SPECIMENOrdering Facility: [facility] Address: [address] [id number] Performed By: #### 2 4321-2 ####[facility] [id number] [place] [address] [place] Sodium [Moles/Vol] 131 mmol/L Low 136-144 [facility] Comment on above: Order Comment: Speci men Type: BLOOD SPECIMENOrdering Facility: [facility] Address: [address] [place] [address] Performed By: #### 2 4321-2 ####[facility] [id number] [place] [address] [place] Urea nitrogen [Mass/Vol] 34 mg/dL High 7-21 [facility] Comment on above: Order Comment: Speci men Type: BLOOD SPECIMENOrdering Facility: [facility] Address: [address] [place] [address] Performed By: #### 2 4321-2 ####[facility] [id number] [address] [place] Anion gap [Moles/Vol] 9 mmol/L Normal 8-15 [facility] Comment on above: Order Comment: Speci men Type: BLOOD SPECIMEN [facility] Address: [address] [place] [address] Performed By: #### 2 4321-2 #### [facility] CLIA [id number] 1 [place] [address] [place] Calcium [Mass/Vol] 9.0 mg/dL Normal 8.5-10.2 [facility] Comment on above: Order Comment: Speci men Type: BLOOD SPECIMEN [facility] Address: [address] [place] [address] Performed By: #### 2 4321-2 #### [facility] CLIA [id number] 1 [place] [address] [place] Chloride [Moles/Vol] 101 mmol/L Normal 98-107 [facility] Comment on above: Order Comment: Speci men Type: BLOOD SPECIMEN [facility] Address: [address] [place] [address] Performed By: #### 2 4321-2 #### [facility] CLIA [id number] 1 [place] [address] [place] CO2 [Moles/Vol] 22 mmol/L Normal 22-30 [facility] Comment on above: Order Comment: Speci dante Type: BLOOD SPECIMEN [facility] Address: [address] [place] [address] Performed By: #### 2 4321-2 #### [facility] CLIA [id number] 1 [place] [address] [place] Creatinine [Mass/Vol] 1.26 mg/dL High 0.58-0.96 [facility] Comment on above: Order Comment: Speci men Type: BLOOD SPECIMEN [facility] Address: [address] [place] [address] Performed By: #### 2 4321-2 #### [facility] CLIA [id number] [address] Creatinine and Glomerular filtration rate.predicted panel (S/P/Bld) 41 mL/min/1.73m??? Low >=60 [facility] Comment on above: Order Comment: Speci men Type: BLOOD SPECIMEN [facility] Address: [address] [place] [address] Result Comment: Kiki mated Glomerular Filtration Rate (eGFR) is calculated using the 2020 CKD-EPI creatinine equation. This equation utilizes serum creatinine, sex, and age as parameters. The creatinine assay has traceable calibration to isotope dilution-mass spectrometry. Refer to KDIGO guidelines for clinical interpretation. In patients with unstable renal function, e.g. those with acute kidney injury, the eGFR may not accurately reflect actual GFR. Performed By: #### 2 4321-2 #### [facility] CLIA [id number] [address] [place] Glucose [Mass/Vol] 104 mg/dL High 74-99 [facility] Comment on above: Order Comment: Speci men Type: BLOOD SPECIMEN [facility] Address: [address] [place] [address] Result Comment: The [place] Diabetes Association (ADA) provides guidance for cutoff [...] Standards of Medical Care in Diabetes 2016, [place] [employer]. Diabetes Care. 2016.39(Suppl 1). Performed By: #### 2 4321-2 #### [facility] CLIA [id number] [address] [place] Potassium [Moles/Vol] 5.3 mmol/L High 3.7-5.1 [facility] Comment on above: Order Comment: Sharondai men Type: BLOOD SPECIMEN [facility] Address: [address] [place] [address] Performed By: #### 2 4321-2 #### [facility] CLIA [id number] [address] STATES OF [facility] Sodium [Moles/Vol] 132 mmol/L Low 136-144 [facility] Comment on above: Order Comment: Claudia howell Type: BLOOD SPECIMEN [facility] Address: [address] [place] [address] Performed By: #### 2 4321-2 #### [facility] CLIA [id number] [address] [place] Urea nitrogen [Mass/Vol] 36 mg/dL High 7-21 [facility] Comment on above: Order Comment: Sharondai men Type: BLOOD SPECIMEN [facility] Address: [address] [place] [address] Performed By: #### 2 4321-2 #### [facility] CLIA [id number] [address] [place] CBC W Auto Differential pane l (Bld)on 02-03-2025 Basophils (Bld) [#/Vol] 0.05 10*3/uL Normal <0.11 [facility] Comment on above: Order Comment: Speci men Type: BLOOD SPECIMEN [facility] Address: [address] [place] [address] Performed By: #### 2 4321-2 #### [facility] CLIA [id number] [address] Basophils/100 WBC (Bld) 0.7 % Normal [facility] Comment on above: Order Comment: Speci men Type: BLOOD SPECIMEN [facility] Address: [address] [place] [address] Performed By: #### 2 1-2 #### [facility] CLIA [id number] [address] Differential cell count method Nom (Bld) Auto Normal [facility] Comment on above: Order Comment: Speci men Type: BLOOD SPECIMEN [facility] Address: [address] [place] [address] Performed By: #### 2 1-2 #### [facility] CLIA [id number] [address] OF [facility] Eosinophils (Bld) [#/Vol] 0.10 10*3/uL Normal <0.46 [facility] Comment on above: Order Comment: Speci men Type: BLOOD SPECIMEN [facility] Address: [address] [place] [address] Performed By: #### 2 1-2 #### [facility] CLIA [id number] [address] Eosinophils/100 WBC (Bld) 1.4 % Normal [facility] Comment on above: Order Comment: Speci men Type: BLOOD SPECIMEN [facility] Address: [address] [place] [address] Performed By: #### 2 1-2 #### [facility] CLIA [id number] [address] [place] Erythrocyte distribution width (RBC) [Ratio] 14.6 % Normal 11.5-15.0 [facility] Comment on above: Order Comment: Speci men Type: BLOOD SPECIMEN [facility] Address: [address] [place] [address] Performed By: #### 2 4321-2 #### [facility] CLIA [id number] [address] [place] Hematocrit (Bld) [Volume fraction] 36.0 % Normal 36.0-46.0 [facility] Comment on above: Order Comment: Speci men Type: BLOOD SPECIMEN [facility] [facility] Address: [address] [place] [address] Performed By: #### 2 4321-2 #### [facility] CLIA [id number] [address] [place] Hemoglobin (Bld) [Mass/Vol] 11.2 g/dL Low 11.5-15.5 [facility] Comment on above: Order Comment: Speci men Type: BLOOD SPECIMEN Ordering Facility: [facility] Address: [address] [place] [address] Performed By: #### 2 4321-2 #### [facility] CLIA [id number] [address] Immature granulocytes (Bld) [#/Vol] 10*3/uL Normal <0.10 [facility] Comment on above: Order Comment: Speci men Type: BLOOD SPECIMEN Ordering Facility: [facility] Address: [address] [place] [address] Performed By: #### 2 4321-2 #### [facility] CLIA [id number] [address] [place] Immature granulocytes/100 WBC (Bld) 0.3 % Normal [facility] Comment on above: Order Comment: Speci men Type: BLOOD SPECIMEN Ordering Facility: [facility] Address: [address] [place] [address] Performed By: #### 2 4321-2 #### [facility] CLIA [id number] [address] [place] Lymphocytes (Bld) [#/Vol] 1.25 10*3/uL Normal 1.00-4.00 [facility] Comment on above: Order Comment: Speci men Type: BLOOD SPECIMEN Ordering Facility: [facility] Address: [address] [place] [address] Performed By: #### 2 4321-2 #### [facility] CLIA [id number] [address] Lymphocytes/100 WBC (Bld) 17.7 % Normal [facility] Comment on above: Order Comment: Speci men Type: BLOOD SPECIMEN Ordering Facility: [facility] Address: [address] [place] [address] Performed By: #### 2 4321-2 #### [facility] CLIA [id number] [address] MCH (RBC) [Entitic mass] 31.4 pg Normal 26.0-34.0 [facility] Comment on above: Order Comment: Speci men Type: BLOOD SPECIMEN Ordering Facility: [facility] Address: [address] [place] [address] Performed By: #### 2 4321-2 #### [facility] CLIA [id number] [address] MCHC (RBC) [Mass/Vol] 31.1 g/dL Normal 30.5-36.0 [facility] Comment on above: Order Comment: Speci men Type: BLOOD SPECIMEN Ordering Facility: [facility] Address: [address] [place] [address] Performed By: #### 2 4321-2 #### [facility] CLIA [id number] [address] MCV (RBC) [Entitic vol] 100.8 fL High 80.0-100.0 [facility] Comment on above: Order Comment: Speci men Type: BLOOD SPECIMEN Ordering Facility: [facility] Address: [address] [place] [address] Performed By: #### 2 4321-2 #### [facility] CLIA [id number] [address] [place] Monocytes (Bld) [#/Vol] 1.50 10*3/uL High <0.87 [facility] Comment on above: Order Comment: Speci men Type: BLOOD SPECIMEN Ordering Facility: [facility] Address: [address] [place] [address] Performed By: #### 2 4321-2 #### [facility] CLIA [id number] [address] [place] Monocytes/100 WBC (Bld) 21.2 % Normal [facility] Comment on above: Order Comment: Speci men Type: BLOOD SPECIMEN Ordering Facility: [facility] Address: [address] [place] [address] Performed By: #### 2 4321-2 #### [facility] CLIA [id number] [address] [place] Neutrophils (Bld) [#/Vol] 4.14 10*3/uL Normal 1.45-7.50 [facility] Comment on above: Order Comment: Speci men Type: BLOOD SPECIMEN Ordering Facility: [facility] Address: [address] [place] [address] Performed By: #### 2 4321-2 #### [facility] CLIA [id number] [address] [place] Neutrophils/100 WBC (Bld) 58.7 % Normal [facility] Comment on above: Order Comment: Speci men Type: BLOOD SPECIMEN Ordering Facility: [facility] Address: [address] [place] [address] Performed By: #### 2 4321-2 #### [facility] CLIA [id number] 1 [place] [address] [place] Nucleated RBC (Bld) [#/Vol] 0.02 10*3/uL High <0.01 [facility] Comment on above: Order Comment: Speci men Type: BLOOD SPECIMEN Ordering Facility: [facility] Address: [address] [place] [address] Performed By: #### 2 4321-2 #### [facility] CLIA [id number] [address] [place] Nucleated RBC/100 WBC (Bld) [Ratio] 0.3 /100 WBC Normal [facility] Comment on above: Order Comment: Speci men Type: BLOOD SPECIMEN Ordering Facility: [facility] Address: [address] [place] [address] Performed By: #### 2 4321-2 #### [facility] CLIA [id number] [address] [place] Platelet mean volume (Bld) [Entitic vol] 9.7 fL Normal 9.0-12.7 [facility] Comment on above: Order Comment: Speci men Type: BLOOD SPECIMEN Ordering Facility: [facility] Address: [facility] [place] [address] Performed By: #### 2 4321-2 #### [facility] CLIA [id number] [address] [place] Platelets (Bld) [#/Vol] 140 10*3/uL Low 150-400 [facility] Comment on above: Order Comment: Speci men Type: BLOOD SPECIMEN Ordering Facility: [facility] Address: [address] [place] [address] Performed By: #### 2 4321-2 #### [facility] CLIA [id number] [address] [place] RBC (Bld) [#/Vol] 3.57 10*6/uL Low 3.90-5.20 [facility] Comment on above: Order Comment: Speci men Type: BLOOD SPECIMEN Ordering Facility: [facility] Address: [address] [place] [address] Performed By: #### 2 4321-2 #### [facility] CLIA [id number] [address] [place] WBC (Bld) [#/Vol] 7.06 10*3/uL Normal 3.70-11.00 [facility] Comment on above: Order Comment: Speci men Type: BLOOD SPECIMEN Ordering Facility: [facility] Address: [address] [place] [address] Performed By: #### 2 4321-2 #### [facility] CLIA [id number] 1 [place] [address] [place] Basic metabolic 2000 panelon 02-02-2025 Anion gap [Moles/Vol] 9 mmol/L Normal 8-15 [facility] Comment on above: Order Comment: Speci men Type: BLOOD SPECIMEN Ordering Facility: [facility] Address: [address] [place] [address] Performed By: #### 2 4321-2 #### [facility] CLIA [id number] 1 [place] [address] [place] Calcium [Mass/Vol] 8.0 mg/dL Low 8.5-10.2 [facility] Comment on above: Order Comment: Speci men Type: BLOOD SPECIMEN Ordering Facility: [facility] Address: [address] [place] [address] Performed By: #### 2 4321-2 #### [facility] CLIA [id number] [address] [place] Chloride [Moles/Vol] 102 mmol/L Normal 98-107 [facility] Comment on above: Order Comment: Speci men Type: BLOOD SPECIMEN Ordering Facility: [facility] Address: [address] [place] [address] Performed By: #### 2 4321-2 #### [facility] CLIA [id number] 1 [place] [address] [place] CO2 [Moles/Vol] 20 mmol/L Low 22-30 [facility] Comment on above: Order Comment: Speci men Type: BLOOD SPECIMEN Ordering Facility: [facility] Address: [address] [place] [address] Performed By: #### 2 4321-2 #### [facility] CLIA [id number] 1 [place] [address] [place] Creatinine [Mass/Vol] 1.29 mg/dL High 0.58-0.96 [facility] Comment on above: Order Comment: Claudia howell Type: BLOOD SPECIMEN Ordering Facility: [facility] Address: [address] [place] [address] Performed By: #### 2 4321-2 #### [facility] CLIA [id number] [address] OF [facility] Creatinine and Glomerular filtration rate.predicted panel (S/P/Bld) 40 mL/min/1.73m??? Low >=60 [facility] Comment on above: Order Comment: Claudia howell Type: BLOOD SPECIMEN Ordering Facility: [facility] Address: [address] [place] [address] Result Comment: Kiki mated Glomerular Filtration Rate (eGFR) is calculated using the 2020 CKD-EPI creatinine equation. This equation utilizes serum creatinine, sex, and age as parameters. The creatinine assay has traceable calibration to isotope dilution-mass spectrometry. Refer to KDIGO guidelines for clinical interpretation. In patients with unstable renal function, e.g. those with acute kidney injury, the eGFR may not accurately reflect actual GFR. Performed By: #### 2 4321-2 #### [facility] CLIA [id number] [address] [place] Glucose [Mass/Vol] 106 mg/dL High 74-99 [facility] Comment on above: Order Comment: Claudia hoewll Type: BLOOD SPECIMEN Ordering Facility: [facility] Address: [address] [place] [address] Result Comment: The [place] [employer] (ADA) provides guidance for cutoff [...] Standards of Medical Care in Diabetes 2016, [place] [employer]. Diabetes Care. 2016.39(Suppl 1). Performed By: #### 2 4321-2 #### [facility] CLIA [id number] [address] [place] Potassium [Moles/Vol] 5.1 mmol/L Normal 3.7-5.1 [facility] Comment on above: Order Comment: Speci men Type: BLOOD SPECIMEN Ordering Facility: [facility] Address: [address] [place] [address] Performed By: #### 2 4321-2 #### [facility] CLIA [id number] [address] STATES OF [facility] Sodium [Moles/Vol] 131 mmol/L Low 136-144 [facility] Comment on above: Order Comment: Speci men Type: BLOOD SPECIMEN Ordering Facility: [facility] Address: [address] [place] [address] Performed By: #### 2 4321-2 #### [facility] CLIA [id number] [address] STATES OF [facility] Urea nitrogen [Mass/Vol] 36 mg/dL High 7-21 [facility] Comment on above: Order Comment: Speci men Type: BLOOD SPECIMEN Ordering Facility: [facility] Address: [address] [place] [address] Performed By: #### 2 4321-2 #### [facility] CLIA [id number] [address] [place] CBC W Auto Differential pane l (Bld)on 02-02-2025 Basophils (Bld) [#/Vol] 0.03 10*3/uL Normal <0.11 [facility] Comment on above: Order Comment: Speci men Type: BLOOD SPECIMEN Ordering Facility: [facility] Address: [address] [place] [address] Performed By: #### 3 4528-0 #### [facility] CLIA [id number] [address] STATES OF [facility] Basophils/100 WBC (Bld) 0.5 % Normal [facility] Comment on above: Order Comment: Speci men Type: BLOOD SPECIMEN Ordering Facility: [facility] Address: [address] [place] [address] Performed By: #### 3 4528-0 #### [facility] CLIA [id number] [address] Differential cell count method Nom (Bld) Auto Normal [facility] Comment on above: Order Comment: Speci men Type: BLOOD SPECIMEN Ordering Facility: [facility] Address: [address] [place] [address] Performed By: #### 3 4528-0 #### [facility] CLIA [id number] [address] Eosinophils (Bld) [#/Vol] 0.18 10*3/uL Normal <0.46 [facility] Comment on above: Order Comment: Speci men Type: BLOOD SPECIMEN Ordering Facility: [facility] Address: [address] [place] [address] Performed By: #### 3 4528-0 #### [facility] CLIA [id number] [address] Eosinophils/100 WBC (Bld) 3.0 % Normal [facility] Comment on above: Order Comment: Speci men Type: BLOOD SPECIMEN Ordering Facility[facility] Address: [address] [place] [address] Performed By: #### 3 4528-0 #### [facility] CLIA [id number] [address] Erythrocyte distribution width (RBC) [Ratio] 14.6 % Normal 11.5-15.0 [facility] Comment on above: Order Comment: Speci men Type: BLOOD SPECIMEN Ordering Facility[facility] Address: [address] [place] [address] Performed By: #### 3 4528-0 #### [facility] CLIA [id number] [address] Hematocrit (Bld) [Volume fraction] 30.9 % Low 36.0-46.0 [facility] Comment on above: Order Comment: Speci men Type: BLOOD SPECIMEN Ordering Facility[facility] Address: [address] [place] [address] Performed By: #### 3 4528-0 #### [facility] CLIA [id number] [address] [place] Hemoglobin (Bld) [Mass/Vol] 10.2 g/dL Low 11.5-15.5 [facility] Comment on above: Order Comment: Speci men Type: BLOOD SPECIMEN Ordering Facility[facility] Address: [address] [place] [address] Performed By: #### 3 4528-0 #### [facility] CLIA [id number] [address] [place] Immature granulocytes (Bld) [#/Vol] 0.03 10*3/uL Normal <0.10 [facility] Comment on above: Order Comment: Speci men Type: BLOOD SPECIMEN Ordering Facility: [facility] Address: [address] [place] [address] Performed By: #### 3 4528-0 #### [facility] CLIA [id number] [address] [place] Immature granulocytes/100 WBC (Bld) 0.5 % Normal [facility] Comment on above: Order Comment: Speci men Type: BLOOD SPECIMEN Ordering Facility: [facility] Address: [address] [place] [address] Performed By: #### 3 4528-0 #### [facility] CLIA [id number] [address] [place] Lymphocytes (Bld) [#/Vol] 0.74 10*3/uL Low 1.00-4.00 [facility] Comment on above: Order Comment: Speci men Type: BLOOD SPECIMEN Ordering Facility: [facility] Address: [address] [place] [address] Performed By: #### 3 4528-0 #### [facility] CLIA [id number] [address] Lymphocytes/100 WBC (Bld) 12.1 % Normal [facility] Comment on above: Order Comment: Speci men Type: BLOOD SPECIMEN Ordering Facility[facility] Address: [address] [place] [address] Performed By: #### 3 4528-0 #### [facility] CLIA [id number] [address] MCH (RBC) [Entitic mass] 32.3 pg Normal 26.0-34.0 [facility] Comment on above: Order Comment: Speci men Type: BLOOD SPECIMEN Ordering [facility] Address: [address] [place] [address] Performed By: #### 3 4528-0 #### [facility] CLIA [id number] [address] OF [facility] MCHC (RBC) [Mass/Vol] 33.0 g/dL Normal 30.5-36.0 [facility] Comment on above: Order Comment: Speci men Type: BLOOD SPECIMEN Ordering Facility[facility] Address: [address] [place] [address] Performed By: #### 3 4528-0 #### [facility] CLIA [id number] [address] MCV (RBC) [Entitic vol] 97.8 fL Normal 80.0-100.0 [facility] Comment on above: Order Comment: Speci men Type: BLOOD SPECIMEN Ordering Facility[facility] Address: [address] [place] [address] Performed By: #### 3 4528-0 #### [facility] CLIA [id number] [address] Monocytes (Bld) [#/Vol] 1.46 10*3/uL High <0.87 [facility] Comment on above: Order Comment: Speci men Type: BLOOD SPECIMEN Ordering Facility[facility] Address: [address] [place] [address] Performed By: #### 3 4528-0 #### [facility] CLIA [id number] [address] [place] Monocytes/100 WBC (Bld) 23.9 % Normal [facility] Comment on above: Order Comment: Speci men Type: BLOOD SPECIMEN Ordering Facility[facility] Address: [address] [place] [address] Performed By: #### 3 4528-0 #### [facility] CLIA [id number] [address] [place] Neutrophils (Bld) [#/Vol] 3.66 10*3/uL Normal 1.45-7.50 [facility] Comment on above: Order Comment: Speci men Type: BLOOD SPECIMEN Ordering Facility[facility] Address: [address] [place] [address] Performed By: #### 3 4528-0 #### [facility] CLIA [id number] [address] Neutrophils/100 WBC (Bld) 60.0 % Normal [facility] Comment on above: Order Comment: Speci men Type: BLOOD SPECIMEN Ordering Facility[facility] Address: [address] [place] [address] Performed By: #### 3 4528-0 #### [facility] CLIA [id number] [address] [place] Nucleated RBC (Bld) [#/Vol] 10*3/uL Normal <0.01 [facility] Comment on above: Order Comment: Speci men Type: BLOOD SPECIMEN Order[facility] Facility[facility] Address: [address] [place] [address] Performed By: #### 3 4528-0 #### [facility] CLIA [id number] [address] [place] Nucleated RBC/100 WBC (Bld) [Ratio] 0.0 /100 WBC Normal [facility] Comment on above: Order Comment: Speci men Type: BLOOD SPECIMEN Ordering Facility[facility] Address: [address] [place] [address] Performed By: #### 3 4528-0 #### [facility] CLIA [id number] [address] Platelet mean volume (Bld) [Entitic vol] 9.7 fL Normal 9.0-12.7 [facility] Comment on above: Order Comment: Speci men Type: BLOOD SPECIMEN Ordering Facility[facility] Address: [address] [place] [address] Performed By: #### 3 4528-0 #### [facility] CLIA [id number] [address] [place] Platelets (Bld) [#/Vol] 114 10*3/uL Low 150-400 [facility] Comment on above: Order Comment: Speci men Type: BLOOD SPECIMEN Order[facility] Address: [address] [place] [address] Performed By: #### 3 4528-0 #### [facility] CLIA [id number] [address] STATES [facility] RBC (Bld) [#/Vol] 3.16 10*6/uL Low 3.90-5.20 [facility] Comment on above: Order Comment: Speci men Type: BLOOD SPECIMEN Ordering Facility[facility] Address: [address] [place] [address] Performed By: #### 3 4528-0 #### [facility] CLIA [id number] [address] [place] WBC (Bld) [#/Vol] 6.10 10*3/uL Normal 3.70-11.00 [facility] Comment on above: Order Comment: Speci men Type: BLOOD SPECIMEN Order[facility] Facility[facility] Address: [facility] [place] [address] Performed By: #### 3 4528-0 #### [facility] CLIA [id number] [address] PT panel Coag (PPP)on 2024 INR Coag (PPP) [Relative time] 1.8 {INR} High 0.9-1.3 [facility] Comment on above: Order Comment: Claudia howell Type: BLOOD SPECIMEN Ordering Facility: [facility] Address: [address] [place], [place] [address] Result Comment: [place] min K Antagonist (VKA) Therapeutic Range: INR 2 to 3 (Target INR of 2.5) Note: For patients treated with VKA drugs, such as warfarin, the [place] [employer] 2012 Guideline recommends [...] to 3.5 (target INR of 3). Timothy ALVARADO, et al. Chest 2012, 141:7S-47S Madelaine RA, et al. [facility] 2017, 70: 252-289 Performed By: #### 3 4528-0 #### [employer] [facility] CLIA [id number] [address] [place] PT Coag (PPP) [Time] 18.4 s High 9.7-13.0 [facility] Comment on above: Order Comment: Claudia howell Type: BLOOD SPECIMEN Ordering Facility[facility] Address: [address] [place] [address] Performed By: #### 3 4528-0 #### [employer] [facility] CLIA [id number] [address] [place] THERAPY NTon 02-02-2025 THERAPY NT HNO ID: [id number] Author: CHRISTEN QUICK PT Service: Physical Therapy Author Type: Physical Therapist Type: Therapy (PT/OT/Speech/Resp) Filed: 02/02/2025 16:50 Note Text: Physical Therapy Evaluation Summary SERVICE DATE: 02/02/2025 SERVICE TIME: 1556 to 1625 ROOM: [id number] PT 6 Clicks Score: 18 DISCHARGE RECOMMENDATIONS Home Anticipated Discharge Needs: Physical Assist at Home Physical Assist at Home for: Shopping, Transportation ASSESSMENT Response to Therapy Interventions: Good Participation in Activities, Pain pt with abdominal pain but able to mobilize with min A PRECAUTIONS Bed/Chair Alarm CURRENT HOSPITAL COURSE presented to [facility] with abd pain--found to have abd wall hematoma Relevant Past Medical History: osteoporosis, afib, HTN, CHF HOME LIVING Patient Lives With: Self/Alone Assistance Available: None (may be moving to [place] and live with dtr and son in [...] on feet TREATMENT INTERVENTIONS Evaluation, Therapeutic Activity (62642) Timed Code Treatment (minutes): 8 Skilled Treatment Time (minutes): 23 $ Evaluation-Moderate (64844) Billed Units: 1 unit Therapeutic Activity (70859) Treatment Minutes: 8 $ Therapeutic Activity (61527) Billed Units: 1 unit Cues for safe [...] to walker Gait Device: Wheeled Walker General Deviations/Observations : Misty decreased, Flexed trunk posture, Step length [...] DATE: February 02, 2025 TIME: 4:49 PM Normal [facility] Basic metabolic 2000 panelon 02-01-2025 Anion gap [Moles/Vol] 10 mmol/L Normal 8-15 [facility] Comment on above: Order Comment: Speci men Type: BLOOD SPECIMEN Ordering [facility] Address: [address] [place] [address] Performed By: #### 2 4321-2 #### [facility] CLIA [id number] 1 [place] [address] [place] Calcium [Mass/Vol] 8.6 mg/dL Normal 8.5-10.2 [facility] Comment on above: Order Comment: Speci men Type: BLOOD SPECIMEN Ordering Facility[facility] Address: [address] [place] [address] Performed By: #### 2 4321-2 #### [facility] CLIA [id number] 1 [place] [address] [place] Chloride [Moles/Vol] 101 mmol/L Normal 98-107 [facility] Comment on above: Order Comment: Speci men Type: BLOOD SPECIMEN Ordering Facility[facility] Address: [address] [place] [address] Performed By: #### 2 4321-2 #### [facility] CLIA [id number] [address] CO2 [Moles/Vol] 20 mmol/L Low 22-30 [facility] Comment on above: Order Comment: Speci men Type: BLOOD SPECIMEN Ordering Facility[facility] Address: [address] [place] [address] Performed By: #### 2 4321-2 #### [facility] CLIA [id number] [address] [place] Creatinine [Mass/Vol] 1.39 mg/dL High 0.58-0.96 [facility] Comment on above: Order Comment: Speci men Type: BLOOD SPECIMEN Order[facility] Address: [address] [place] [address] Performed By: #### 2 4321-2 #### [facility] CLIA [id number] [address] Creatinine and Glomerular filtration rate.predicted panel (S/P/Bld) 37 mL/min/1.73m??? Low >=60 [facility] Comment on above: Order Comment: Speci men Type: BLOOD SPECIMEN Ordering Facility: [facility] Address: [address] [place] [address] Result Comment: Kiki mated Glomerular Filtration Rate (eGFR) is calculated using the 2020 CKD-EPI creatinine equation. This equation utilizes serum creatinine, sex, and age as parameters. The creatinine assay has traceable calibration to isotope dilution-mass spectrometry. Refer to KDIGO guidelines for clinical interpretation. In patients with unstable renal function, e.g. those with acute kidney injury, the eGFR may not accurately reflect actual GFR. Performed By: #### 2 4321-2 #### [facility] CLIA [id number] [address] [place] Glucose [Mass/Vol] 120 mg/dL High 74-99 [facility] Comment on above: Order Comment: Speci men Type: BLOOD SPECIMEN Ordering Facility: [facility] Address: [address] [place] [address] Result Comment: The [place] Diabetes Association (ADA) provides guidance for cutoff [...] Standards of Medical Care in Diabetes 2016, [place] [employer]. Diabetes Care. 2016.39(Suppl 1). Performed By: #### 2 4321-2 #### [facility] CLIA [id number] [address] STATES OF [facility] Potassium [Moles/Vol] 4.6 mmol/L Normal 3.7-5.1 [facility] Comment on above: Order Comment: Speci men Type: BLOOD SPECIMEN Ordering Facility: [facility] Address: [address] [place] [address] Performed By: #### 2 4321-2 #### [facility] CLIA [id number] [address] [place] Sodium [Moles/Vol] 131 mmol/L Low 136-144 [facility] Comment on above: Order Comment: Sharondai dante Type: BLOOD SPECIMEN Ordering Facility: [facility] Address: [address] [place] [address] Performed By: #### 2 4321-2 #### [facility] CLIA [id number] [address] STATES [facility] Urea nitrogen [Mass/Vol] 38 mg/dL High 7-21 [facility] Comment on above: Order Comment: Sharondai men Type: BLOOD SPECIMEN Ordering Facility: [facility] Address: [address] [place] [address] Performed By: #### 2 4321-2 #### [place] [facility] CLIA [id number] [address] [place] CBC panel Auto (Bld)on 02-01 Erythrocyte distribution width (RBC) [Ratio] 14.6 % Normal 11.5-15.0 [facility] Comment on above: Order Comment: Speci men Type: BLOOD SPECIMEN Ordering Facility: [facility] Address: [facility] [place] [address] Performed By: #### 3 4528-0 #### [facility] CLIA [id number] [address] OF [facility] Hematocrit (Bld) [Volume fraction] 35.1 % Low 36.0-46.0 [facility] Comment on above: Order Comment: Speci men Type: BLOOD SPECIMEN Ordering Facility: [facility] Address: [address] [place] [address] Performed By: #### 3 4528-0 #### [facility] CLIA [id number] [address] STATES OF [facility] Hemoglobin (Bld) [Mass/Vol] 11.2 g/dL Low 11.5-15.5 [facility] Comment on above: Order Comment: Speci men Type: BLOOD SPECIMEN Ordering Facility: [facility] Address: [address] [place] [address] Performed By: #### 3 4528-0 #### [facility] CLIA [id number] [address] STATES OF [facility] MCH (RBC) [Entitic mass] 31.8 pg Normal 26.0-34.0 [facility] Comment on above: Order Comment: Speci men Type: BLOOD SPECIMEN Ordering Facility: [facility] Address: [address] [place] [address] Performed By: #### 3 4528-0 #### [facility] CLIA [id number] [address] [place] MCHC (RBC) [Mass/Vol] 31.9 g/dL Normal 30.5-36.0 [facility] Comment on above: Order Comment: Speci men Type: BLOOD SPECIMEN Ordering Facility: [facility] Address: [address] [place] [address] Performed By: #### 3 4528-0 #### [facility] CLIA [id number] [address] MCV (RBC) [Entitic vol] 99.7 fL Normal 80.0-100.0 [facility] Comment on above: Order Comment: Speci men Type: BLOOD SPECIMEN Ordering Facility: [facility] Address: [address] [place] [address] Performed By: #### 3 4528-0 #### [facility] CLIA [id number] [address] Nucleated RBC (Bld) [#/Vol] 0.02 10*3/uL High <0.01 [facility] Comment on above: Order Comment: Speci men Type: BLOOD SPECIMEN Ordering Facility: [facility] Address: [address] [place] [address] Performed By: #### 3 4528-0 #### [facility] CLIA [id number] [address] Platelet mean volume (Bld) [Entitic vol] 9.1 fL Normal 9.0-12.7 [facility] Comment on above: Order Comment: Speci men Type: BLOOD SPECIMEN Ordering Facility: [facility] Address: [address] [place] [address] Performed By: #### 3 4528-0 #### [facility] CLIA [id number] [address] Platelets (Bld) [#/Vol] 145 10*3/uL Low 150-400 [facility] Comment on above: Order Comment: Speci men Type: BLOOD SPECIMEN Ordering Facility: [facility] Address: [address] [place] [address] Performed By: #### 3 4528-0 #### [facility] CLIA [id number] [address] [place] RBC (Bld) [#/Vol] 3.52 10*6/uL Low 3.90-5.20 [facility] Comment on above: Order Comment: Speci men Type: BLOOD SPECIMEN Ordering Facility: [facility] Address: [address] [place] [address] Performed By: #### 3 4528-0 #### [facility] CLIA [id number] [address] OF [facility] WBC (Bld) [#/Vol] 6.74 10*3/uL Normal 3.70-11.00 [facility] Comment on above: Order Comment: Speci men Type: BLOOD SPECIMEN Ordering Facility: [facility] Address: [address] [place] [address] Performed By: #### 3 4528-0 #### [facility] CLIA [id number] [address] PT panel Coag (PPP)on 2024 INR Coag (PPP) [Relative time] 1.5 {INR} High 0.9-1.3 [facility] Comment on above: Order Comment: Speci men Type: BLOOD SPECIMEN Ordering Facility: [facility] Address: [address] [place] [address] Result Comment: Payton min K Antagonist (VKA) Therapeutic Range: INR 2 to 3 (Target INR of 2.5) Note: For patients treated with VKA drugs, such as warfarin, the [place] [employer] 2012 Guideline recommends [...] GH, et al. Chest 2012, 141:7S-47S Madelaine FOSTER et al. [facility] 2017, 70: 252-289 Performed By: #### 2 4321-2 #### [facility] CLIA [id number] [address] [place] [address] [place] PT Coag (PPP) [Time] 15.7 s High 9.7-13.0 [facility] Comment on above: Order Comment: Speci men Type: BLOOD SPECIMEN Ordering [facility]: [facility] Address: [address] [place] [address] Performed By: #### 2 4321-2 #### [facility] CLIA [id number] [address] STATES [facility] CBC W Auto Differential pane l (Bld)on 01-31-2025 Basophils (Bld) [#/Vol] 0.04 10*3/uL Normal <0.11 [facility] Comment on above: Order Comment: Speci men Type: BLOOD SPECIMEN Ordering [facility] Address: [address] [place] [address] Performed By: #### 2 4321-2 #### [facility] CLIA [id number] [address] [place] Basophils/100 WBC (Bld) 0.7 % Normal [facility] Comment on above: Order Comment: Speci men Type: BLOOD SPECIMEN Ordering [facility] Address: [address] [place] [address] Performed By: #### 2 4321-2 #### [facility] CLIA [id number] [address] Differential cell count method Nom (Bld) Auto Normal [facility] Comment on above: Order Comment: Speci men Type: BLOOD SPECIMEN Ordering Facility: [facility] Address: [address] [place] [address] Performed By: #### 2 4321-2 #### [place] [facility] CLIA [id number] [address] [place] Eosinophils (Bld) [#/Vol] 0.03 10*3/uL Normal <0.46 [facility] Comment on above: Order Comment: Speci men Type: BLOOD SPECIMEN Ordering Facility: [facility] Address: [address] [place] [address] Performed By: #### 2 4321-2 #### [facility] CLIA [id number] [address] [place] Eosinophils/100 WBC (Bld) 0.5 % Normal [facility] Comment on above: Order Comment: Speci men Type: BLOOD SPECIMEN Ordering Facility: [facility] Address: [address] [place] [address] Performed By: #### 2 4321-2 #### [facility] CLIA [id number] [address] Erythrocyte distribution width (RBC) [Ratio] 14.3 % Normal 11.5-15.0 [facility] Comment on above: Order Comment: Speci men Type: BLOOD SPECIMEN Ordering Facility: [facility] Address: [address] [place] [address] Performed By: #### 2 4321-2 #### [facility] CLIA [id number] [address] [place] Hematocrit (Bld) [Volume fraction] 40.0 % Normal 36.0-46.0 [facility] Comment on above: Order Comment: Speci men Type: BLOOD SPECIMEN Ordering Facility: [facility] Address: [address] [place] [address] Performed By: #### 2 4321-2 #### [facility] CLIA [id number] [address] [place] Hemoglobin (Bld) [Mass/Vol] 12.5 g/dL Normal 11.5-15.5 [facility] Comment on above: Order Comment: Speci men Type: BLOOD SPECIMEN Ordering Facility: [facility] Address: [address] [place] [address] Performed By: #### 2 4321-2 #### [facility] CLIA [id number] [address] Immature granulocytes (Bld) [#/Vol] 10*3/uL Normal <0.10 [facility] Comment on above: Order Comment: Speci men Type: BLOOD SPECIMEN Ordering Facility: [facility] Address: [address] [place] [address] Performed By: #### 2 4321-2 #### [facility] CLIA [id number] [address] Immature granulocytes/100 WBC (Bld) 0.3 % Normal [facility] Comment on above: Order Comment: Speci men Type: BLOOD SPECIMEN Ordering Facility: [facility] Address: [address] [place] [address] Performed By: #### 2 4321-2 #### [facility] CLIA [id number] [address] OF [facility] Lymphocytes (Bld) [#/Vol] 0.98 10*3/uL Low 1.00-4.00 [facility] Comment on above: Order Comment: Speci men Type: BLOOD SPECIMEN Ordering [facility] Address: [address] [place] [address] Performed By: #### 2 1-2 #### [facility] CLIA [id number] [address] [place] [address] Lymphocytes/100 WBC (Bld) 16.6 % Normal [facility] Comment on above: Order Comment: Speci men Type: BLOOD SPECIMEN Ordering [facility] Address: [address] [place] [address] Performed By: #### 2 4321-2 #### [facility] CLIA [id number] [address] MCH (RBC) [Entitic mass] 31.3 pg Normal 26.0-34.0 [facility] Comment on above: Order Comment: Speci men Type: BLOOD SPECIMEN Ordering Facility[facility] Address: [address] [place] [address] Performed By: #### 2 4321-2 #### [place] [facility] CLIA [id number] [address] STATES OF [facility] MCHC (RBC) [Mass/Vol] 31.3 g/dL Normal 30.5-36.0 [facility] Comment on above: Order Comment: Speci men Type: BLOOD SPECIMEN Ordering Facility: [facility] Address: [address] [place] [address] Performed By: #### 2 4321-2 #### [facility] [facility] CLIA [id number] [address] OF [facility] MCV (RBC) [Entitic vol] 100.0 fL Normal 80.0-100.0 [facility] Comment on above: Order Comment: Speci men Type: BLOOD SPECIMEN Ordering Facility: [facility] Address: [address] [place] [address] Performed By: #### 2 4321-2 #### [facility] [facility] CLIA [id number] [address] [place] Monocytes (Bld) [#/Vol] 0.94 10*3/uL High <0.87 [facility] Comment on above: Order Comment: Speci men Type: BLOOD SPECIMEN Order[facility] Address: [address] [place] [address] Performed By: #### 2 1-2 #### [facility] [facility] CLIA [id number] [address] Monocytes/100 WBC (Bld) 15.9 % Normal [facility] Comment on above: Order Comment: Speci men Type: BLOOD SPECIMEN Ordering [facility] Address: [address] [place] [address] Performed By: #### 2 4321-2 #### [facility] [facility] CLIA [id number] [address] [place] Neutrophils (Bld) [#/Vol] 3.91 10*3/uL Normal 1.45-7.50 [facility] Comment on above: Order Comment: Speci men Type: BLOOD SPECIMEN Order[facility] Address: [address] [place] [address] Performed By: #### 2 4321-2 #### [facility] CLIA [id number] [address] [place] Neutrophils/100 WBC (Bld) 66.0 % Normal [facility] Comment on above: Order Comment: Speci men Type: BLOOD SPECIMEN Order[facility] Address: [address] [place] [address] Performed By: #### 2 4321-2 #### [facility] [facility] CLIA [id number] [address] Nucleated RBC (Bld) [#/Vol] 10*3/uL Normal <0.01 [facility] Comment on above: Order Comment: Speci men Type: BLOOD SPECIMEN Order[facility] Facility[facility] Address: [address] [place] [address] Performed By: #### 2 1-2 #### [facility] CLIA [id number] [address] Nucleated RBC/100 WBC (Bld) [Ratio] 0.0 /100 WBC Normal [facility] Comment on above: Order Comment: Speci men Type: BLOOD SPECIMEN Order[facility] Facility[facility] Address: [address] [place] [address] Performed By: #### 2 1-2 #### [facility] CLIA [id number] [address] [place] Platelet mean volume (Bld) [Entitic vol] 9.5 fL Normal 9.0-12.7 [facility] Comment on above: Order Comment: Speci men Type: BLOOD SPECIMEN Order[facility] Address: [address] [place] [address] Performed By: #### 2 1-2 #### [place] [facility] CLIA [id number] [address] [place] Platelets (Bld) [#/Vol] 179 10*3/uL Normal 150-400 [facility] Comment on above: Order Comment: Speci men Type: BLOOD SPECIMEN Order[facility] Address: [address] [place] [address] Performed By: #### 2 1-2 #### [facility] [facility] CLIA [id number] [address] [place] [address] [place] RBC (Bld) [#/Vol] 4.00 10*6/uL Normal 3.90-5.20 [facility] Comment on above: Order Comment: Speci men Type: BLOOD SPECIMEN Ordering Facility: [facility] Address: [address] [place], [place] [address] Performed By: #### 2 4321-2 #### [facility] CLIA [id number] [address] [place] WBC (Bld) [#/Vol] 5.92 10*3/uL Normal 3.70-11.00 [facility] Comment on above: Order Comment: Speci men Type: BLOOD SPECIMEN Order[facility] Address: [address] [place] [address] Performed By: #### 2 4321-2 #### [facility] CLIA [id number] [address] CONSULTon 01-31-2025 CONSULT HNO ID: [id number] Author: SUSANA HAJI MD Service: General Surgery Author Type: Physician Type: Consults Filed: 01/31/2025 23:38 Note Text: HISTORY AND PHYSICAL EXAM: EGS SERVICE SERVICE DATE: 01/31/2025 SERVICE TIME: 2:49 AM Subjective CHIEF COMPLAINT: Rectus Sheath Hematoma HPI: 89 year old female with many co morbidities PMH Afib on coumadin, HLD, HTN, HLD, hypothyroidism, T2DM, CAD, CHF, Pulm HTN. [facility] couple days of Right hemiabdomen [...] BREAST PERC VACUUM/ROTN 12/27/2009 CARDIOVERSION 03/03/2011 In [facility] [place] FEMORAL SUPRACONDYLAR FRACTURE W/XTN Left 08/29/2021 PAST SURGICAL HISTORY OF right ankle ORIF for triamalleolar fracture S $ KNEE TOTAL ARTHR PRASHANTH Left 05/07/2015 [facility] [place]. LTK replacement arthroplasty SIGMOIDOSCOPY FLX [...] CAD, CHF, Pulm HTN. She presents to [facility] with a couple days of Right hemiabdomen pain and concern for rectus sheath hematoma. Hospital Course/Operations/Proce dures: * No surgery found * Plan: Rectus sheath hematoma - Patient currently HDS not tachycardic with normal hgb. - Bleed likely to tamponade in rectus sheath once anticoagulant reversal administered - No acute surgical intervention indicated. - Recommend medical admission - if not previously reversed at [place], would recommend reversal of coumadin - If patient becomes unstable, would recommend CTA and discussion with IR of embolization or thrombin injection into rectus sheath - rest of care per primary - Code status: Code Status: Not on file Assessment and plan d/w Dr. Haji. SIGNATURE: Rosalio Kraft MD PATIENT NAME: AnaM aria Avalos DATE: 01/31/2025 TIME: 2:49 AM Pager: See below. Emergency General Surgery (EGS) Staff Addendum: Briefly, this is a 89 YO patient presenting wi (more content not included)... Normal [facility] Comprehensive metabolic 2000 panelon 01-31-2025 Albumin [Mass/Vol] 3.5 g/dL Low 3.9-4.9 [facility] Comment on above: Order Comment: Speci men Type: BLOOD SPECIMEN Ordering [facility] Address: [address] [place] [address] Performed By: #### 2 4323-8 #### [facility] CLIA [id number] [address] [place] [address] [place] ALP [Catalytic activity/Vol] 102 U/L Normal 34-123 [facility] Comment on above: Order Comment: Speci men Type: BLOOD SPECIMEN Order[facility] Address: [address] [place] [address] Performed By: #### 2 4323-8 #### [place] [facility] CLIA [id number] [address] ALT With P-5'-P [Catalytic activity/Vol] 34 U/L Normal 7-38 [facility] Comment on above: Order Comment: Speci men Type: BLOOD SPECIMEN Order[facility] Address: [address] [place] [address] Performed By: #### 2 4323-8 #### [facility] CLIA [id number] [address] Anion gap [Moles/Vol] 13 mmol/L Normal 8-15 [facility] Comment on above: Order Comment: Speci men Type: BLOOD SPECIMEN Order[facility] Address: [address] [place] [address] Performed By: #### 2 4323-8 #### [facility] CLIA [id number] [address] AST With P-5'-P [Catalytic activity/Vol] 48 U/L High 13-35 [facility] Comment on above: Order Comment: Speci men Type: BLOOD SPECIMEN Order[facility] Address: [address] [place] [address] Performed By: #### 2 4323-8 #### [facility] [facility] CLIA [id number] [address] [place] Bilirubin [Mass/Vol] 1.6 mg/dL High 0.2-1.3 [facility] Comment on above: Order Comment: Speci men Type: BLOOD SPECIMEN Order[facility] Address: [address] [place] [address] Performed By: #### 2 4323-8 #### [facility] [facility] CLIA [id number] [address] [place] Calcium [Mass/Vol] 8.7 mg/dL Normal 8.5-10.2 [facility] Comment on above: Order Comment: Speci men Type: BLOOD SPECIMEN Order[facility] Address: [address] [place] [address] Performed By: #### 2 4323-8 #### [facility] CLIA [id number] [address] [place] Chloride [Moles/Vol] 102 mmol/L Normal 98-107 [facility] Comment on above: Order Comment: Speci men Type: BLOOD SPECIMEN Order[facility] Address: [address] [place] [address] Performed By: #### 2 4323-8 #### [facility] CLIA [id number] [address] [place] CO2 [Moles/Vol] 19 mmol/L Low 22-30 [facility] Comment on above: Order Comment: Speci men Type: BLOOD SPECIMEN Order[facility] Address: [address] [place] [address] Performed By: #### 2 4323-8 #### [facility] CLIA [id number] [address] [place] Creatinine [Mass/Vol] 1.49 mg/dL High 0.58-0.96 [facility] Comment on above: Order Comment: Speci men Type: BLOOD SPECIMEN Ordering Facility[facility] Address: [address] [place] [address] Performed By: #### 2 4323-8 #### [facility] CLIA [id number] [address] [place] Creatinine and Glomerular filtration rate.predicted panel (S/P/Bld) 34 mL/min/1.73m??? Low >=60 [facility] Comment on above: Order Comment: Speci men Type: BLOOD SPECIMEN Ordering Facility: [facility] Address: [address] [place] [address] Result Comment: Kiki mated Glomerular Filtration Rate (eGFR) is calculated using the 2020 CKD-EPI creatinine equation. This equation utilizes serum creatinine, sex, and age as parameters. The creatinine assay has traceable calibration to isotope dilution-mass spectrometry. Refer to KDIGO guidelines for clinical interpretation. In patients with unstable renal function, e.g. those with acute kidney injury, the eGFR may not accurately reflect actual GFR. Performed By: #### 2 4323-8 #### [facility] CLIA [id number] [address] [place] [address] [place] Glucose [Mass/Vol] 102 mg/dL High 74-99 [facility] Comment on above: Order Comment: Claudia howell Type: BLOOD SPECIMEN Ordering Facility: [facility] Address: [address] [place] [address] Result Comment: The [place] Diabetes Association (ADA) provides guidance for cutoff [...] Standards of Medical Care in Diabetes 2016, [place] [employer]. Diabetes Care. 2016.39(Suppl 1). Performed By: #### 2 4323-8 #### [facility] CLIA [id number] [address] [place] Potassium [Moles/Vol] 4.9 mmol/L Normal 3.7-5.1 [facility] Comment on above: Order Comment: Claudia howell Type: BLOOD SPECIMEN Ordering Facility[facility] Address: [address] [id number] Performed By: #### 2 4323-8 #### [facility] CLIA [id number] [address] [place] [address] [place] Protein [Mass/Vol] 5.6 g/dL Low 6.3-8.0 [facility] Comment on above: Order Comment: Speci men Type: BLOOD SPECIMEN Ordering Facility[facility] Address: [address] [place] [address] Performed By: #### 2 4323-8 #### [facility] CLIA [id number] [address] Sodium [Moles/Vol] 134 mmol/L Low 136-144 [facility] Comment on above: Order Comment: Speci men Type: BLOOD SPECIMEN [facility]ing Facility: [facility] Address: [address] [place] [address] Performed By: #### 2 4323-8 #### [facility] CLIA [id number] [address] [place] Urea nitrogen [Mass/Vol] 36 mg/dL High 7-21 [facility] Comment on above: Order Comment: Speci men Type: BLOOD SPECIMEN Ordering Facility: [facility] Address: [address] [place] [address] Performed By: #### 2 4323-8 #### [facility] CLIA [id number] [address] OF [facility] ED NOTEon 01-31-2025 ED NOTE HNO ID: [id number] Author: NIA LOPEZ RN Service: Emergency Medicine Author Type: Registered Nurse Type: ED Notes Filed: 01/31/2025 03:20 Note Text: While administering medication pt requested pain medication. This nurse to notify physician. [facility] ED NOTE HNO ID: [id number] Author: AYDEN ROSALES RN Service: ? Author Type: Registered Nurse Type: ED Notes Filed: 01/31/2025 01:19 Note Text: Bed: 12-ED Expected date: Expected time: Means of arrival: Comments: [place] transfer [facility] ED PROV NOTEon 01-31-2025 ED PROV NOTE HNO ID: [id number] Author: STEVE RED MD Service: Emergency Medicine [...] with: Functional Transfers: Arrives via EMS from [place] D/ ABD wall hematoma. Pt denies falls and/or accidents. A/Ox4. + Coumadin. 89-year-old female presenting to the emergency department with abdominal wall hematoma reported from [facility]. Patient denies any trauma to the abdomen [...] BREAST PERC VACUUM/ROTN 12/27/2009 CARDIOVERSION 03/03/2011 In [place] OPEN TX FEMORAL SUPRACONDYLAR FRACTURE W/XTN Left 08/29/2021 PAST SURGICAL HISTORY OF right ankle ORIF for triamalleolar fracture S $ KNEE TOTAL ARTHR PRASHANTH Left 05/07/2015 [facility] [place]. LTK replacement arthroplasty SIGMOIDOSCOPY FLX [...] 0.98 (*) 1.00 - 4.00 k/uL Abs [place] 0.94 (*) <0.87 k/uL All other components within normal limits COMPREHENSIVE METABOLIC PANEL PROTHROMBIN TIME TYPE + SCREEN Procedures ED Course / Clinical Impression ED Course as of 01/31/25 Gracie9 Steve Hickey's Documentation ThuJan 31, 2025 (more content not included)... Normal [facility] ED PROV NOTE HNO ID: [id number] Author: STEVE RED MD Service: Emergency Medicine [...] abdominal trauma, falls or injuries. Transferred from [place] for surgical consult. for the last day [...] and hemodynamically stable. Repeat hemoglobin here 5.3. STEVE RED 01/31/25 0259 Normal [facility] HISTORY PHYSICALon HISTORY PHYSICAL HNO ID: [id number] Author: PAT SEARS APRN.CNP Service: Hospital Medicine Author Type: Nurse Practitioner Type: H&P Filed: 01/31/2025 08:56 Note Text: DEPARTMENT OF HOSPITAL MEDICINE HISTORY AND PHYSICAL EXAM SERVICE DATE: 01/31/2025 SERVICE TIME: 8:46 AM NIGHT AND WEEKEND COVERAGE: After 7pm call #[phone] Chief complaint: Transfer from [place] for rectus sheath hematoma HPI: This is an 89-year-old female with prior history of atrial fibrillation on warfarin, HFpEF, hypertension, hyperlipidemia and hypothyroidism. She initially went to [place] for abdominal pain and then transferred here [...] staff and pt will be admitted to [facility]. PAST MEDICAL HISTORY Diagnosis Date Ankle [...] BREAST PERC VACUUM/ROTN 12/27/2009 CARDIOVERSION 03/03/2011 In [place] OPEN TX FEMORAL SUPRACONDYLAR FRACTURE W/XTN Left 08/29/2021 PAST SURGICAL HISTORY OF right ankle ORIF for triamalleolar fracture S $ KNEE TOTAL ARTHR PRASHANTH Left 05/07/2015 [facility] [place]. LTK replacement arthroplasty SIGMOIDOSCOPY FLX [...] (U/L) Date Value 01/31/2025 34 URINLAYSIS Specific [place], Ur Date Value Ref Range Status 01/06/2017 [...] Neg Final ALLERGIES Allergen Reactions Codeine Hives Darvocet A500 [Prop* Intolerance Venom-Honey Bee Unknown REVIEW [...] clear to auscultation, Unlabored CARDIAC: S1S2, irregular (more content not included)... Normal [facility] Hgb Bld-mCncon 01-31-2025 Hemoglobin (Bld) [Mass/Vol] 12.1 g/dL Normal 11.5-15.5 [facility] Comment on above: Order Comment: Claudia howell Type: BLOOD SPECIMEN Ordering Facility[facility] Address: [address] [place] [address] Performed By: #### 3 4528-0 #### [facility] CLIA [id number] [address] OF [facility] Hemoglobin (Bld) [Mass/Vol] 11.9 g/dL Normal 11.5-15.5 [facility] Comment on above: Order Comment: Claudia howell Type: BLOOD SPECIMEN Ordering [facility] Address: [address] [place] [address] Performed By: #### 7 18-7 #### [facility] CLIA [id number] [address] [place] Hemoglobin (Bld) [Mass/Vol] 11.8 g/dL Normal 11.5-15.5 [facility] Comment on above: Order Comment: Claudia howell Type: BLOOD SPECIMENOrdering Facility: [facility] Address: [address] [place] [address] Performed By: #### 7 18-7 ####[facility] [id number] [address] [place] PT panel Coag (PPP)on 2024 INR Coag (PPP) [Relative time] 5.3 {INR} High 0.9-1.3 [facility] Comment on above: Order Comment: Claudia howell Type: BLOOD SPECIMEN Ordering Facility[facility] Address: [address] [place] [address] Result Comment: [place] min K Antagonist (VKA) Therapeutic Range: INR 2 to 3 (Target INR of 2.5) Note: For patients treated with VKA drugs, such as warfarin, the [place] [employer] 2012 Guideline recommends [...] Chest 2012, 141:7S-47S Madelaine RA, et al. [facility] 2017, 70: 252-289 Performed By: #### 3 4528-0 #### [facility] CLIA [id number] 1 [place] [address] [place] PT Coag (PPP) [Time] 51.0 s High 9.7-13.0 [facility] Comment on above: Order Comment: Specchilo howell Type: BLOOD SPECIMEN Ordering Facility[facility] Address: [address] [place] [address] Performed By: #### 3 4528-0 #### [facility] CLIA [id number] [address] [place] TYPE + SCREENon 01-31-2025 ABO O Normal [facility] Comment on above: Order Comment: Claudia howell Type: BLOOD SPECIMENOrdering Facility: [facility] Address: [address] [place] [address] Performed By: #### T SCR ####[facility]ANKCLIA [id number] [address] [place] Rh Nom (Bld) Positive Normal [facility] Comment on above: Order Comment: Claudia howell Type: BLOOD SPECIMENOrdering Facility: [facility] Address: [address] [place] [address] Performed By: #### T SCR ####[facility] BANKCLIA [id number] [address] TYPE AND SCREEN EXPIRATION 02/03/2025 23:59 Normal [facility] Comment on above: Order Comment: Speci men Type: BLOOD SPECIMENOrdering Facility: [facility] Address: [address] [place] [address] Performed By: #### T SCR ####[facility] BLOOD BANKCLIA [id number] [place] [id number] [facility] 12 Lead EKGon 01-30-2025 12 Lead EKG [facility] Cardiovascular Services [address] [place] [address] 12 Lead EKG 01/30/251932 MR#: [id number] Acct: [id number] Name: ANA MARIA AVALOS Rep #: [id number] : 1935 89 From: Michael Salvador MD Attending Dr: Status: DEP ER Ordering Dr: Car Solomon DO Date: 01/30/25 Location: ED Sex: F C Admitted: Test Reason : SOB Blood Pressure : */* mmHG Vent. Rate : 80 BPM Atrial Rate : * BPM P-R Int : * ms QRS Dur : 106 ms QT Int : 384 ms P-R-T Axes : * 40 181 degrees QTcB Int : 442 ms Atrial fibrillation with premature ventricular or aberrantly conducted complexes Incomplete right bundle branch block ST T wave abnormality, consider lateral ischemia Abnormal ECG Confirmed by MICHAEL SALVADOR MD ([id number]), writer editor EDNA CHUN ([id number]) on 01/31/2025 1:35:01 PM Referred By: JOVITA Confirmed By: MICHAEL SALVADOR MD 01/31/25 1339 Date Michael Salvador MD CC: Dr. Agnieszka Fish MD; Dr. Car Solomon DO Signed Normal [facility] Abdomen/Pelvis W IV Cont ONL Yon 01-30-2025 Abdomen/Pelvis W IV Cont ONLY [facility] Imaging Services [address] [place] [address] Abdomen/Pelvis W IV Cont ONLY MR#: [id number] Acct: [id number] Name: ANA MARIA AVALOS Rep #: [id number] : 1935 F 89 From: Schuyler Justin MD PCP: Dr. Agnieszka Fish MD Status: REG ER Study: Abdomen/Pelvis W IV Cont ONLY Date of Exam: Exam# [id number] Ordering Dr: Car Solomon DO PROCEDURE: ABDOMEN/PELVIS W IV CONT ONLY 01/30/2025 REASON FOR EXAM: RUQ AND RLQ PAIN TECHNIQUE: ABDOMEN/PELVIS W IV CONT ONLY Coronal and Sagittal reconstruction series were provided. CONTRAST: Isovue 370 VOLUME: 100 mL One or more dose reduction techniques were used (e.g., Automated exposure control, adjustment of the mA and/or kV according to patient size, use of iterative reconstruction technique. RADIATION DOSE SUMMARY: CTDlvol: 23.27+ 15.17 mGy DLP: 725.89 mGycm COMPARISON: None. FINDINGS: The heart is enlarged. Partially visualized bilateral pleural effusions. Anasarca. Degenerative changes of the spine. Ucljlplz-yz-bjgvne atherosclerosis. Normal caliber abdominal aorta. Thickening of the right anterior abdominal wall musculature measuring 10.0 x 4.1 cm with internal hyperdensity suspicious for an anterior abdominal wall hematoma with acute interval hemorrhage. Small volume ascites. No suspicious lymphadenopathy. Irregular hepatic surface contour suspicious for cirrhosis. The pancreas, spleen, and adrenals are unremarkable. Bilateral renal cortical atrophy. The urinary bladder is unremarkable. The uterus is unremarkable. Colonic diverticulosis. Normal caliber large and small bowel. CT/Abdomen/Pelvis W IV Cont ONLY IMPRESSION: Anterior abdominal wall musculature hematoma with probable acute internal hemorrhage. Anasarca. Small volume ascites. Probable cirrhotic liver morphology. Cardiomegaly. Bilateral pleural effusions. Colonic diverticulosis. Reading Location: [id number] CC: Dr. Agnieszka Fish MD; Dr. Car Solomno DO Injection Mold Tooling Technician: Signed Normal [facility] Absolute lymphocyte countOrd ered By: Car Solomon on 01-30-2025 Lymphocytes Auto (Unsp spec) [#/Vol] 0.86 10*3/uL 0.83-4.51 [facility] Absolute lymphocyte countOrd ered By: Tammie Pillai on 01-30-2025 Lymphocytes Auto (Unsp spec) [#/Vol] 1.00 10*3/uL 0.83-4.51 [facility] Absolute neutrophil countOrd ered By: Car Solomon on 01-30-2025 Neutrophils (Bld) [#/Vol] 3.8 10*3/uL 2.0-7.7 [facility] Absolute neutrophil countOrd ered By: Tammie Pillai on 01-30-2025 Neutrophils (Bld) [#/Vol] 3.0 10*3/uL 2.0-7.7 [facility] Anion gap in Serum or Plasma Ordered By: Car Solomon on 01-30-2025 Anion gap [Moles/Vol] 13 mmol/L 12-15 [facility] Anion gap in Serum or Plasma Ordered By: Tammie Pillai on 01-30-2025 Anion gap [Moles/Vol] 12 mmol/L 12-15 [facility] Automated lymphocyte count a s percentage of total leukocytesOrdered By: Car Solomon on 01-30-2025 Lymphocytes/100 WBC Auto (Unsp spec) 15.0 % Low [facility] Automated lymphocyte count a s percentage of total leukocytesOrdered By: Tammie Pillai on 01-30-2025 Lymphocytes/100 WBC Auto (Unsp spec) 20.0 % [facility] BUN/creatinine ratioOrdered By: Car Solomon on 01-30-2025 Urea nitrogen/Creatinine [Mass ratio] 21.9 mg/mg High 05-22 [facility] BUN/creatinine ratioOrdered By: Tammie Pillai on 01-30-2025 Urea nitrogen/Creatinine [Mass ratio] 24.2 mg/mg High [facility] Basic Metabolic Profile (BMP )on 01-30-2025 BUN/CRE 21.[address] [facility] Comment on above: Performed By: #### L 453.9098 #### [facility] [address] [place], [place] [address], [address] Calcium [Mass/Vol] 9.0 mg/dL Normal 7.6-11.0 [facility] Comment on above: Performed By: #### L 300.3900 #### [facility] [address] [place], [address] Chloride [Moles/Vol] 99 mmol/L Normal 98-108 [facility] Comment on above: Performed By: #### L 300.3900 #### [facility] [address] [place], [address] CO2 [Moles/Vol] 20.6 mmol/L Low 21.0-32.0 [facility] Comment on above: Performed By: #### L 300.3900 #### [facility] [address] [place], [address] Creatinine [Mass/Vol] 1.70 mg/dL High 0.70-1.20 [facility] Comment on above: Performed By: #### L 300.3900 #### [facility] [address] [place], [address] ECRCL 23.07 ml/min Low 50-250 [facility] Comment on above: Performed By: #### L 300.3900 #### [facility] [address] [place], [address] GAP 13 Normal 5-15 [facility] Comment on above: Performed By: #### L 300.3900 #### [facility] [address] [place], [address] GFR/1.73 sq M.predicted among non-blacks MDRD (S/P/Bld) [Vol rate/Area] 29 mL/min/{1.73_m2} Low >60 [facility] Comment on above: Result Comment: mL/m in/1.73m2 CKD-EPI Creatinine Equation (2020) Performed By: #### L 300.3900 #### [facility] [address] [place], [address] Glucose [Mass/Vol] 136 mg/dL High 70-99 [facility] Comment on above: Performed By: #### L 300.3900 #### [facility] [address] [place], [address] Potassium [Moles/Vol] 4.9 mmol/L Normal 3.3-5.1 [facility] Comment on above: Result Comment: Hemo lysis present, Results??could be affected. ?? Performed By: #### L 300.3900 #### [facility] [address] [place], [address] Sodium [Moles/Vol] 132 mmol/L Low 133-145 [facility] Comment on above: Performed By: #### L 300.3900 #### [facility] [address] [place], [address] Urea nitrogen [Mass/Vol] 37 mg/dL High 4-19 [facility] Comment on above: Performed By: #### L 300.3900 #### [facility] [address] [place], [address] BUN/CRE 24.2 RATIO High 10-20 [facility] Comment on above: Performed By: #### L 100.0100, L300.3900, L503.7505, L500.2500, L501.9520 ####[facility] [address] [place], [address] Calcium [Mass/Vol] 9.0 mg/dL Normal 7.6-11.0 [facility] Comment on above: Performed By: #### L 100.0100, L300.3900, L503.7505, L500.2500, L501.9520 ####[facility] [address] [place], [address] Chloride [Moles/Vol] 99 mmol/L Normal 98-108 [facility] Comment on above: Performed By: #### L 100.0100, L300.3900, L503.7505, L500.2500, L501.9520 ####[facility] [address] [place], [address] CO2 [Moles/Vol] 21.0 mmol/L Normal 21.0-32.0 [facility] Comment on above: Performed By: #### L 100.0100, L300.3900, L503.7505, L500.2500, L501.9520 ####[facility] [address] [place], [address] Creatinine [Mass/Vol] 1.41 mg/dL High 0.70-1.20 [facility] Comment on above: Performed By: #### L 100.0100, L300.3900, L503.7505, L500.2500, L501.9520 ####[facility] [address] [place], [address] GAP 12 Normal 5-15 [facility] Comment on above: Performed By: #### L 100.0100, L300.3900, L503.7505, L500.2500, L501.9520 ####[facility] [address] [place], [address] GFR/1.73 sq M.predicted among non-blacks MDRD (S/P/Bld) [Vol rate/Area] 36 mL/min/{1.73_m2} Low >60 [facility] Comment on above: Result Comment: mL/m in/1.73m2 CKD-EPI Creatinine Equation (2020) Performed By: #### L 100.0100, L300.3900, L503.7505, L500.2500, L501.9520 ####[facility] [address] [place], [address] Glucose [Mass/Vol] 93 mg/dL Normal 70-99 [facility] Comment on above: Performed By: #### L 100.0100, L300.3900, L503.7505, L500.2500, L501.9520 ####[facility] [address] [place], [address] Potassium [Moles/Vol] 4.6 mmol/L Normal 3.3-5.1 [facility] Comment on above: Performed By: #### L 100.0100, L300.3900, L503.7505, L500.2500, L501.9520 ####[facility] [address] [place], [address] Sodium [Moles/Vol] 132 mmol/L Low 133-145 [facility] Comment on above: Performed By: #### L 100.0100, L300.3900, L503.7505, L500.2500, L501.9520 ####[facility] [address] [place], [address] Urea nitrogen [Mass/Vol] 34 mg/dL High 4-19 [facility] Comment on above: Performed By: #### L 100.0100, L300.3900, L503.7505, L500.2500, L501.9520 ####[facility] [address] [place], [address] Basophil percentageOrdered B y: Car Solomon on 01-30-2025 Basophils/100 WBC (Bld) 0.5 % 0-1 [facility] Basophil percentageOrdered B y: Tammie Pillai on 01-30-2025 Basophils/100 WBC (Bld) 1.0 % 0-1 [facility] Bilirubin Test strip Ql (U)O rdered By: Car Solomon on 01-30-2025 Bilirubin Ql (U) Negative Negative [facility] Bilirubin directOrdered By: Car Solomon on 01-30-2025 Bilirubin.direct [Mass/Vol] 0.71 mg/dL High 0.00-0.30 [facility] Comment on above: Hemolysis present, R esults could be affected. Bilirubin, totalOrdered By: Car Solomon on 01-30-2025 Bilirubin [Mass/Vol] 1.67 mg/dL High 0.00-1.30 [facility] CBC W/Diff, Automatedon 01-03 Absolute Lymph 0.86 X10 3/uL Normal 0.83-4.51 [facility] Comment on above: Performed By: #### L 300.3900 #### [facility] [address] [place], [address] Absolute Neut 3.8 X10 3/uL Normal 2.0-7.7 [facility] Comment on above: Performed By: #### L 300.3900 #### [facility] [address] [place], [address] Basophils/100 WBC (Bld) 0.5 % Normal 0-1 [facility] Comment on above: Performed By: #### L 300.3900 #### [facility] [address] [place], [address] Eosinophils/100 WBC (Bld) 2.4 % Normal 0-5 [facility] Comment on above: Performed By: #### L 300.3900 #### [facility] [address] [place], [address] Erythrocyte distribution width (RBC) [Ratio] 14.5 % Normal 11.6-14.6 [facility] Comment on above: Performed By: #### L 300.3900 #### [facility] [address] [place], [address] Hematocrit (Bld) [Volume fraction] 41.4 % Normal 37-47 [facility] Comment on above: Performed By: #### L 300.3900 #### [facility] [address] [place], [address] Hemoglobin (Bld) [Mass/Vol] 13.5 g/dL Normal 12.0-15.0 [facility] Comment on above: Performed By: #### L 300.3900 #### [facility] [address] [place], [address] IG% 0.300 Normal 0.0-0.9 [facility] Comment on above: Result Comment: IG% - Immature Granulocytes (promyelocytes, myelocytes and metamyelocytes) > 1% indicates that a LEFT SHIFT is Present. Performed By: #### L 300.3900 #### [facility] [address] [place], [address] Lymphocytes/100 WBC (Bld) 15.0 % Low 19-41 [facility] Comment on above: Performed By: #### L 300.3900 #### [facility] [address] [place], [address] MCH (RBC) [Entitic mass] 31.8 pg Normal 27.0-32.0 [facility] Comment on above: Performed By: #### L 300.3900 #### [facility] [address] [place], [address] MCHC (RBC) [Mass/Vol] 32.6 g/dL Normal 32-36 [facility] Comment on above: Performed By: #### L 300.3900 #### [facility] [address] [place], [address] MCV (RBC) [Entitic vol] 97.6 fL Normal 81-99 [facility] Comment on above: Performed By: #### L 300.3900 #### [facility] [address] [place], [address] Monocytes/100 WBC (Bld) 15.7 % High 0-10 [facility] Comment on above: Performed By: #### L 300.3900 #### [facility] [address] [place], [address] Neutrophils/100 WBC (Bld) 66.1 % Normal 47-70 [facility] Comment on above: Performed By: #### L 300.3900 #### [facility] [address] [place], [address] Nucleated RBC (Bld) [#/Vol] 0 10*3/uL Normal 0-5 [facility] Comment on above: Performed By: #### L 300.3900 #### [facility] [address] [place], [address] Platelet mean volume (Bld) [Entitic vol] 9.0 fL Normal 6.2-12.0 [facility] Comment on above: Performed By: #### L 300.3900 #### [facility] [address] [place], [address] Platelets (Bld) [#/Vol] 173 10*3/uL Normal 150-450 [facility] Comment on above: Performed By: #### L 300.3900 #### [facility] [address] [place], [address] RBC (Bld) [#/Vol] 4.24 10*6/uL Normal 4.2-5.4 [facility] [facility] Comment on above: Performed By: #### L 300.3900 #### [facility] [address] [place], [address] RDW SD 51.8 fl High 35.1-43.9 [facility] Comment on above: Performed By: #### L 300.3900 #### [facility] [address] [place], [address] WBC (Bld) [#/Vol] 5.7 10*3/uL Normal 4.4-11.0 [facility] Comment on above: Performed By: #### L 300.3900 #### [facility] [address] [place], [address] Absolute Lymph 1.00 X10 3/uL Normal 0.83-4.51 [facility] Comment on above: Performed By: #### L 100.0100, L300.3900, L503.7505, L500.2500, L501.9520 ####[facility] [address] [place], [address] Absolute Neut 3.0 X10 3/uL Normal 2.0-7.7 [facility] Comment on above: Performed By: #### L 100.0100, L300.3900, L503.7505, L500.2500, L501.9520 ####[facility] [address] [place], [address] Basophils/100 WBC (Bld) 1.0 % Normal 0-1 [facility] Comment on above: Performed By: #### L 100.0100, L300.3900, L503.7505, L500.2500, L501.9520 ####[facility] [address] [place], [address] Eosinophils/100 WBC (Bld) 1.8 % Normal 0-5 [facility] Comment on above: Performed By: #### L 100.0100, L300.3900, L503.7505, L500.2500, L501.9520 ####[facility] [address] [place], [address] Erythrocyte distribution width (RBC) [Ratio] 14.4 % Normal 11.6-14.6 [facility] Comment on above: Performed By: #### L 100.0100, L300.3900, L503.7505, L500.2500, L501.9520 ####[facility] [address] [place], [address] Hematocrit (Bld) [Volume fraction] 42.3 % Normal 37-47 [facility] Comment on above: Performed By: #### L 100.0100, L300.3900, L503.7505, L500.2500, L501.9520 ####[facility] [address] [place], [address] Hemoglobin (Bld) [Mass/Vol] 13.6 g/dL Normal 12.0-15.0 [facility] Comment on above: Performed By: #### L 100.0100, L300.3900, L503.7505, L500.2500, L501.9520 ####[facility] [address] [place], [address] IG% 0.400 Normal 0.0-0.9 [facility] Comment on above: Result Comment: IG% - Immature Granulocytes (promyelocytes, myelocytes and metamyelocytes) > 1% indicates that a LEFT SHIFT is Present. Performed By: #### L 100.0100, L300.3900, L503.7505, L500.2500, L501.9520 ####[facility] [address] [place], [address] Lymphocytes/100 WBC (Bld) 20.0 % Normal 19-41 [facility] Comment on above: Performed By: #### L 100.0100, L300.3900, L503.7505, L500.2500, L501.9520 ####[facility] [address] [place], [address] MCH (RBC) [Entitic mass] 31.6 pg Normal 27.0-32.0 [facility] Comment on above: Performed By: #### L 100.0100, L300.3900, L503.7505, L500.2500, L501.9520 ####[facility] [address] [place], [address] MCHC (RBC) [Mass/Vol] 32.2 g/dL Normal 32-36 [facility] Comment on above: Performed By: #### L 100.0100, L300.3900, L503.7505, L500.2500, L501.9520 ####[facility] [address] [place], [address] MCV (RBC) [Entitic vol] 98.1 fL Normal 81-99 [facility] Comment on above: Performed By: #### L 100.0100, L300.3900, L503.7505, L500.2500, L501.9520 ####[facility] [address] [place], [address] Monocytes/100 WBC (Bld) 17.2 % High 0-10 [facility] Comment on above: Performed By: #### L 100.0100, L300.3900, L503.7505, L500.2500, L501.9520 ####[facility] [address] [place], [address] Neutrophils/100 WBC (Bld) 59.6 % Normal 47-70 [facility] Comment on above: Performed By: #### L 100.0100, L300.3900, L503.7505, L500.2500, L501.9520 ####[facility] [address] [place], [address] Nucleated RBC (Bld) [#/Vol] 0 10*3/uL Normal 0-5 [facility] Comment on above: Performed By: #### L 100.0100, L300.3900, L503.7505, L500.2500, L501.9520 ####[facility] [address] [place], [address] Platelet mean volume (Bld) [Entitic vol] 9.3 fL Normal 6.2-12.0 [facility] Comment on above: Performed By: #### L 100.0100, L300.3900, L503.7505, L500.2500, L501.9520 ####[facility] [address] [place], [address] Platelets (Bld) [#/Vol] 185 10*3/uL Normal 150-450 [facility] Comment on above: Performed By: #### L 100.0100, L300.3900, L503.7505, L500.2500, L501.9520 ####[facility] [address] [place], [address] RBC (Bld) [#/Vol] 4.31 10*6/uL Normal 4.2-5.4 [facility] Comment on above: Performed By: #### L 100.0100, L300.3900, L503.7505, L500.2500, L501.9520 ####[facility] [address] [place], [address] RDW SD 52.0 fl High 35.1-43.9 [facility] Comment on above: Performed By: #### L 100.0100, L300.3900, L503.7505, L500.2500, L501.9520 ####[facility] [address] [place], [address] WBC (Bld) [#/Vol] 5.0 10*3/uL Normal 4.4-11.0 [facility] Comment on above: Performed By: #### L 100.0100, L300.3900, L503.7505, L500.2500, L501.9520 ####[facility] [address] [place], [address] Carbon dioxide, total [Moles /volume] in Central venous bloodOrdered By: Car Solomon on 01-30-2025 CO2 [Moles/Vol] 20.6 mmol/L Low 21.0-32.0 [facility] Carbon dioxide, total [Moles /volume] in Central venous bloodOrdered By: Tammie Pillai on 01-30-2025 CO2 [Moles/Vol] 21.0 mmol/L 21.0-32.0 [facility] Chest PA and Lateralon 01-30 Chest PA and Lateral [facility] Imaging Services [address] [place] [address] Chest PA and Lateral MR#: [id number] Acct: [id number] Name: ANA MARIA AVALOS Rep #: [id number] : 1935 F 89 From: Schuyler Justin MD PCP: Dr. Agnieszka Fish MD Status: REG CLI Study: Chest PA and Lateral Date of Exam: 01/30/25 Exam# [id number] Ordering Dr: Tammie Pillai PROPERTY ASSISTANT PROPERTY ASSISTANT- C PROCEDURE: CHEST PA AND LATERAL 01/30/2025 REASON FOR EXAM: SHORTNESS OF BREATH, CHF TECHNIQUE: CHEST PA AND LATERAL COMPARISON: 09/18/2022. FINDINGS: The heart is enlarged. Bibasilar linear opacities favoring atelectasis. The lungs are hyperaerated which can suggest COPD. Chronic right rib deformities. RAD/Chest PA and Lateral IMPRESSION: Cardiomegaly. Hyperaerated lungs with can suggest COPD. Probable bibasilar atelectasis. Reading Location: [id number] CC: PROPERTY ASSISTANT-C Tammie Pillai; Dr. Agnieszka Fish MD Injection Mold Tooling Technician: Signed Normal [facility] Chloride assayOrdered By: Gregory Solomon on 01-30-2025 Chloride [Moles/Vol] 99 mmol/L 98-108 [facility] Chloride assayOrdered By: Omar Pillai on 01-30-2025 Chloride [Moles/Vol] 99 mmol/L 98-108 [facility] Emergency Department Summary on 01-30-2025 Emergency Department Summary [facility] Medical Records Department [address] [place] [address] Emergency Department Summary 01/30/25 MR#: [id number] Acct: [id number] Name: ANA MARIA AVALOS Rep #: [id number] : 1935 89 From: Car Solomon DO PCP: Dr. Agnieszka Fish MD Status:REG ER Location: ED HPI History of Present Illness Chief Complaint: Shortness of Breath Narrative Narrative: Patient is a 89-year-old female with past medical history of chronic kidney disease, pulmonary hypertension, atrial fibrillation on warfarin, CHF, hypothyroidism who presents to the emergency department with a chief complaint of abdominal pain and shortness of breath. Patient states that she has been following closely with the heart group and they have been making several medication adjustments and attempt to help get fluid off for her. She states that she noted that she has had worsening shortness of breath with exertion and swelling in her legs and she also noted that she developed severe right sided abdominal pain therefore she came here for further evaluation management. She did not feel that she was going to make it through the night. [facility] Medical History Elevated C-reactive protein (CRP) Pain in both upper extremities Hemorrhoid CKD (chronic kidney disease), stage III 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 Longstanding persistent atrial fibrillation Foul smelling urine Hx of fracture of femur Dermatitis Nonrheumatic aortic (valve) stenosis Cystitis Osteoporosis Urinary tract infection with hematuria Vision problems Osteopenia Chronic headaches Cataracts, bilateral UTI (urinary tract infection) Back problem Arthritis Seasonal allergies RBBB DDD (degenerative disc disease) Diverticulosis Pure hypercholesterolemia Anemia Pulmonary hypertension Non-rheumatic mitral regurgitation Nonrheumatic tricuspid valve regurgitation Paroxysmal atrial fibrillation Essential hypertension Hyperlipidemia GERD (gastroesophageal reflux disease) Depression Joint pain Headache Snoring Post-nasal drainage Cough Dyspnea on exertion Anxiety Insomnia due to medical condition Hypothyroidism (acquired) Anticoagulation goal of INR 2 to 3 Hypertension Atrial fibrillation with normal ventricular rate 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 Home Medications ???Medication ???Instructions ???Recorded ???Last Taken ???Type ascorbic acid (vitamin C) 500 mg 500 mg PO DAILY@0800 SUPPLEMENT 08/27/21 History tablet vitamin B comp and C no.3 15 mg-10 1 ea PO DAILY SUPPLEMENT 5 08/27/21 History mg-50 mg-5 mg-300 mg capsule multivitamin 1 ea PO DAILY VITAMIN 10/14/17 History acetaminophen 500 mg tablet 1,000 mg (2 x 500 mg) PO Q6H PRN 0 09/11/21 Unknown Rx PRN Pain Score 1-5 #0 tabs metoprolol tartrate 100 mg tablet 100 mg PO Q12H #180 tabs 05/23/24 Unknown Rx atorvastatin 20 mg tablet 20 mg PO QHS CHOLESTEROL #90 tabs 06/16/24 Unknown Rx alendronate 70 mg tablet See Rx Instructions .Route 4 Unknown Rx .COMPLEX #14 tabs Handicap Placard #1 ea 08/15/24 Unknown Rx spironolactone 25 mg tablet 25 mg PO DAILY #30 tabs 09/13/24 U nknown Rx warfarin 3 mg tablet 3 mg PO .COMPLEX #180 tabs 5 Unknown Rx Held on 01/30/25. Instructions: MD Ordered levothyroxine 112 mcg tablet See Rx Instructions .Route 5 Unknown Rx .COMPLEX #90 tabs dapagliflozin propanediol 10 mg 10 mg PO QAM #30 tabs 11/15/24 Unk nown Rx tablet (Farxiga) losartan 50 mg tablet 25 mg (1/2 x 50 mg) PO DAILY #90 0 01/20/25 Unknown Rx tabs Allergy/AdvReac Type Severity Reaction Status Date / Time bee venom protein (honey bee) Allergy Unknown UNKNOWN Verified 01/30/25 19:23 propoxyphene (From Allergy Unknown UNKNOWN Verified 01/30/25 19:23 Darvocet-N) codeine AdvReac Other Verified 01/30/25 19:23 Family History Mother Heart disease High cholesterol Osteoporosis CVA (cerebral vascular accident) Hypertension Father Hypertension Alcohol abuse Sister Asthma Hypertension Thyroid disorder Surgical History History of cataract extraction History of cardioversion ( 07/15/22) History of total left knee replacement Status post surgical manipulation of ankle joint Status post total left knee replacement Social History household members: none Smoking Status: Never smoker alcohol intake: never substance use type: does not use what type of physical activity do you participate in: none ROS ROS ED ROS Narrative Constitutional: Denies a (more content not included)... Normal [facility] Eosinophil percentageOrdered By: Car Solomon on 01-30-2025 Eosinophils/100 WBC (Bld) 2.4 % 0-5 [facility] Eosinophil percentageOrdered By: Tammie Pillai on 01-30-2025 Eosinophils/100 WBC (Bld) 1.8 % 0-5 [facility] Erythrocyte distribution wid th ratioOrdered By: Car Solomon on 01-30-2025 Erythrocyte distribution width (RBC) [Ratio] 14.5 % 11.6-14.6 [facility] Erythrocyte distribution wid th ratioOrdered By: Tammie Pillai on 01-30-2025 Erythrocyte distribution width (RBC) [Ratio] 14.4 % 11.6-14.6 [facility] Erythrocyte distribution wid th standard deviationOrdered By: Car Solomon on 01-30-2025 Erythrocyte distribution width (RBC) [Ratio] 51.8 fl High 35.1-43.9 [facility] Erythrocyte distribution wid th standard deviationOrdered By: Tammie Pillai on 01-30-2025 Erythrocyte distribution width (RBC) [Ratio] 52.0 fl High 35.1-43.9 [facility] Glomerular filtration rate ( GFR) estimation/1.73 sq m using serum, plasma, or whole bOrdered By: Car Solomon on 01-30-2025 GFR/1.73 sq M.predicted among non-blacks MDRD (S/P/Bld) [Vol rate/Area] 29 mL/min/{1.73_m2} Low >60 [facility] Comment on above: mL/min/1.73m2 CKD-EP I Creatinine Equation (2020) Glomerular filtration rate ( GFR) estimation/1.73 sq m using serum, plasma, or whole bOrdered By: Tammie Pillai on 01-30-2025 GFR/1.73 sq M.predicted among non-blacks MDRD (S/P/Bld) [Vol rate/Area] 36 mL/min/{1.73_m2} Low >60 [facility] Comment on above: mL/min/1.73m2 CKD-EP I Creatinine Equation (2020) Hematocrit Auto (Bld) [Volum e fraction]Ordered By: Car Solomon on 01-30-2025 Hematocrit (Bld) [Volume fraction] 41.4 % 37-47 [facility] Hematocrit Auto (Bld) [Volum e fraction]Ordered By: Tammie Pillai on 01-30-2025 Hematocrit (Bld) [Volume fraction] 42.3 % 37-47 [facility] Hemoglobin measurementOrdere d By: Car Solomon on 01-30-2025 Hemoglobin (Bld) [Mass/Vol] 13.5 g/dL 12.0-15.0 [facility] Hemoglobin measurementOrdere d By: Tammie Pillai on 01-30-2025 Hemoglobin (Bld) [Mass/Vol] 13.6 g/dL 12.0-15.0 [facility] Immature granulocytes/100 WB C Auto (Bld)Ordered By: Car Solomon on 01-30-2025 Immature granulocytes/100 WBC (Bld) 0.300 % 0.0-0.9 [facility] Comment on above: IG% - Immature Granu locytes (promyelocytes, myelocytes and metamyelocytes) > 1% indicates that a LEFT SHIFT is Present. Immature granulocytes/100 WB C Auto (Bld)Ordered By: Tammie Pillai on 01-30-2025 Immature granulocytes/100 WBC (Bld) 0.400 % 0.0-0.9 [facility] Comment on above: IG% - Immature Granu locytes (promyelocytes, myelocytes and metamyelocytes) > 1% indicates that a LEFT SHIFT is Present. International normalized rat io (INR) calculationOrdered By: Tammie Pillai on 01-30-2025 INR Coag (Bld) [Relative time] 6.7 {INR} High [facility] Comment on above: CRITICAL VALUE BRAVO D TO AANY FRAUSTO ([facility])01/30/25 1359 Schuyler Dave.RESULTS READ BACK BY SAME. Ketones Test strip Ql (U)Ord ered By: Car Solomon on 01-30-2025 Ketones Ql (U) Negative Negative [facility] L499.0042on 01-30-2025 Trop T High Sen 51 ng/L High <=14 [facility] Comment on above: Result Comment: CRIT ICAL CALLED BY MICHAELA NGUYEN TO HARVEY LAZCANO AT 2125 Performed By: #### L 300.9338 #### [facility] [address] [place], [address] L499.0043on 01-30-2025 Trop T High Sen Normal <=14 [facility] Comment on above: Result Comment: [facility] DISCHARGED Performed By: #### L 499.0043 #### [facility] [address] [place], [address] L501.4021on 01-30-2025 Trop T High Sen 56 ng/L Invalid Interpretation Code <=14 [facility] Comment on above: Result Comment: Crit ical Result(s) Called at: 2037 by: MICHAELA NGUYEN TO STEVO KING Results read back by same. Performed By: #### L 300.3900 #### [facility] [address] [place], [address] L503.7505on 01-30-2025 Natriuretic peptide B (Bld) [Mass/Vol] 1533 pg/mL Normal <=1800 [facility] Comment on above: Result Comment: Hear t Failure Unlikely: < 300 pg/mL Heart Failure Likely < 50 Years: > 450 pg/mL 50-75 Years: > 900 pg/mL >75 Years: > 1800 pg/mL Performed By: #### L 100.0100, L300.3900, L503.7505, L500.2500, L501.9520 ####[facility] [address] [place], [address] Laboratory - Chemistry and C hemistry - challengeOrdered By: Car Solomon on 01-30-2025 AST [Catalytic activity/Vol] 62 U/L High <32 [facility] Comment on above: Hemolysis present, R esults could be affected. Lipaseon 01-30-2025 Lipase [Catalytic activity/Vol] 41 U/L Normal 13-75 [facility] Comment on above: Result Comment: Tito domínguez note: LIPASE revised reference range effective 22. New Lipase methodology. Expected to produce lower values than the previous assay method. NEW Reference Range: 13 - 75 U/L Performed By: #### L 501.2450, L500.3400 ####[facility] [address] [place], [address] Lipase measurementOrdered By : Car Solomon on 01-30-2025 Lipase [Catalytic activity/Vol] 41 U/L 13-75 [facility] Comment on above: Please note:LIPASE r evised reference range effective 22. New Lipase methodology. Expected to produce lower values than the previous assay method. NEW Reference Range: 13 - 75 U/L Liver Profileon 01-30-2025 Albumin [Mass/Vol] 3.8 g/dL Normal 3.4-4.8 [facility] Comment on above: Performed By: #### L 501.2450, L500.3400 ####[facility] [address] [place], [address] ALK PHOS 115 U/L High 35-104 [facility] Comment on above: Performed By: #### L 501.2450, L500.3400 ####[facility] [address] [place], [address] ALT [Catalytic activity/Vol] 42 U/L High <=34 [facility] Comment on above: Performed By: #### L 501.2450, L500.3400 ####[facility] [address] [place], [address] AST [Catalytic activity/Vol] 62 U/L High <=31 [facility] Comment on above: Result Comment: Hemo lysis present, Results??could be affected. ?? Performed By: #### L 501.2450, L500.3400 ####[facility] [address] [place], [address] Bilirubin [Mass/Vol] 1.67 mg/dL High 0.00-1.30 [facility] Comment on above: Performed By: #### L 501.2450, L500.3400 ####[facility] [address] [place], [address] Bilirubin.direct [Mass/Vol] 0.71 mg/dL High 0.00-0.30 [facility] Comment on above: Result Comment: Hemo lysis present, Results??could be affected. ?? Performed By: #### L 501.2450, L500.3400 ####[facility] [address] [place], [address] Globulin (S) [Mass/Vol] 2.3 g/dL Normal 2.2-4.2 [facility] Comment on above: Performed By: #### L 501.2450, L500.3400 ####[facility] [address] [place], [address] T PROT 6.1 g/dL Normal 5.9-8.4 [facility] Comment on above: Performed By: #### L 501.2450, L500.3400 ####[facility] [address] [place], [address] MCV (mean corpuscular volume ) determinationOrdered By: Car Solomon on 01-30-2025 MCV (RBC) [Entitic vol] 97.6 fL 81-99 [facility] MCV (mean corpuscular volume ) determinationOrdered By: Tammie Pillai on 01-30-2025 MCV (RBC) [Entitic vol] 98.1 fL 81-99 [facility] Mean corpuscular hemoglobin (MCH) determinationOrdered By: Car Solomon on 01-30-2025 MCH (RBC) [Entitic mass] 31.8 pg 27.0-32.0 [facility] Mean corpuscular hemoglobin (MCH) determinationOrdered By: Tammie Pillai on 01-30-2025 MCH (RBC) [Entitic mass] 31.6 pg 27.0-32.0 [facility] Mean corpuscular hemoglobin concentration (MCHC) determinationOrdered By: Car Solomon on 01-30-2025 MCHC (RBC) [Mass/Vol] 32.6 g/dL 32-36 [facility] Mean corpuscular hemoglobin concentration (MCHC) determinationOrdered By: Tammie Pillai on 01-30-2025 MCHC (RBC) [Mass/Vol] 32.2 g/dL 32-36 [facility] Mean platelet volume determi nationOrdered By: Car Solomon on 01-30-2025 Platelet mean volume (Bld) [Entitic vol] 9.0 fL 6.2-12.0 [facility] Mean platelet volume determi nationOrdered By: Tammie Pillai on 01-30-2025 Platelet mean volume (Bld) [Entitic vol] 9.3 fL 6.2-12.0 [facility] Microscopic analysis of urin e for red blood cells (RBC)Ordered By: Car Solomon on 01-30-2025 Microscopic analysis of urine for red blood cells (RBC) 0-5 SEEN /hpf 0-5 [facility] Monocyte percentageOrdered B y: Car Solomon on 01-30-2025 Monocytes/100 WBC (Bld) 15.7 % High 0-10 [facility] Monocyte percentageOrdered B y: Tammie Pillai on 01-30-2025 Monocytes/100 WBC (Bld) 17.2 % High 0-10 [facility] Mucus LM Ql (Urine sed)Order ed By: Car Solomon on 01-30-2025 Mucus Ql (Urine sed) 0 SEEN /hpf [facility] Natriuretic peptide.B prohor alejandro N-Terminal [Mass/volume] in Serum or PlasmaOrdered By: Tammie Pillai on 01-30-2025 Natriuretic peptide.B prohormone N-Terminal [Mass/Vol] 1533 pg/mL <1800 [facility] Comment on above: Heart Failure Unlike ly: < 300 pg/mLHeart Failure Likely< 50 Years: > 450 pg/mL50-75 Years: > 900 pg/mL>75 Years: > 1800 pg/mL Neutrophil percentageOrdered By: Car Solomon on 01-30-2025 Neutrophils/100 WBC (Bld) 66.1 % 47-70 [facility] Neutrophil percentageOrdered By: Tammie Pillai on 01-30-2025 Neutrophils/100 WBC (Bld) 59.6 % 47-70 [facility] Nitrite Test strip Ql (U)Ord ered By: Car Solomon on 01-30-2025 Nitrite Ql (U) Negative Negative [facility] No Panel InformationOrdered By: Car Solomon on 01-30-2025 62 U/L High <32 [facility] Nucleated red blood cell per centageOrdered By: Car Solomon on 01-30-2025 Nucleated RBC/100 WBC (Bld) [Ratio] 0 % 0-5 [facility] Nucleated red blood cell per centageOrdered By: Tammie Pillai on 01-30-2025 Nucleated RBC/100 WBC (Bld) [Ratio] 0 % 0-5 [facility] Platelet countOrdered By: Gregory Solomon on 01-30-2025 Platelets (Bld) [#/Vol] 173 10*3/uL 150-450 [facility] Platelet countOrdered By: Omar Pillai on 01-30-2025 Platelets (Bld) [#/Vol] 185 10*3/uL 150-450 [facility] Potassium measurement (mass/ volume)Ordered By: Car Solomon on 01-30-2025 Potassium (Unsp spec) [Mass/Vol] 4.9 mmol/L 3.3-5.1 [facility] Comment on above: Hemolysis present, R esults could be affected. Potassium measurement (mass/ volume)Ordered By: Tammie Pillai on 01-30-2025 Potassium (Unsp spec) [Mass/Vol] 4.6 mmol/L 3.3-5.1 [facility] Protein Test strip Ql (U)Ord ered By: Car Solomon on 01-30-2025 Protein Ql (U) 100 mg/dl High Negative [facility] Prothrombin Time w/INRon INR Coag (PPP) [Relative time] 6.7 {INR} Invalid Interpretation Code [facility] Comment on above: Result Comment: CRIT ICAL VALUE CALLED TO ANAY FRAUSTO ([facility]) 01/30/25 1359 Schuyler Flores RESULTS READ BACK BY SAME. Performed By: #### L 100.0100, L300.3900, L503.7505, L500.2500, L501.9520 ####[facility] [address] [place], [place], [id number] PT Coag (PPP) [Time] 59.8 s High 11.7-14.9 [facility] Comment on above: Performed By: #### L 100.0100, L300.3900, L503.7505, L500.1278, L501.9520 ####[facility] [address] [place], [address] Prothrombin timeOrdered By: Tammie Pillai on 01-30-2025 PT Coag (PPP) [Time] 59.8 s High 11.7-14.9 [facility] RBC Auto (Bld) [#/Vol]Ordere d By: Car Solomon on 01-30-2025 RBC (Bld) [#/Vol] 4.24 10*6/uL 4.2-5.4 [facility] RBC Auto (Bld) [#/Vol]Ordere d By: Tammie Pillai on 01-30-2025 RBC (Bld) [#/Vol] 4.31 10*6/uL 4.2-5.4 [facility] Serum creatinine measurement (mass/volume)Ordered By: Car Solomon on 01-30-2025 Creatinine [Mass/Vol] 1.70 mg/dL High 0.70-1.20 [facility] Serum creatinine measurement (mass/volume)Ordered By: Tammie Pillai on 01-30-2025 Creatinine [Mass/Vol] 1.41 mg/dL High 0.70-1.20 [facility] Serum globulin measurementOr dered By: Car Solomon on 01-30-2025 Globulin (S) [Mass/Vol] 2.3 g/dL 2.2-4.2 [facility] Serum glucose measurement (m ass/volume)Ordered By: Car Solomon on 01-30-2025 Glucose [Mass/Vol] 136 mg/dL High 70-99 [facility] Serum glucose measurement (m ass/volume)Ordered By: Tammie Pillai on 01-30-2025 Glucose [Mass/Vol] 93 mg/dL 70-99 [facility] Serum or plasma alanine henderson otransferase (ALT) measurementOrdered By: Car Solomon on 01-30-2025 ALT [Catalytic activity/Vol] 42 U/L High <35 [facility] Serum or plasma albumin caleb urement (mass/volume)Ordered By: Car Solomon on 01-30-2025 Albumin [Mass/Vol] 3.8 g/dL 3.4-4.8 [facility] Serum or plasma alkaline lexus sphatase measurementOrdered By: Car Solomon on 01-30-2025 ALP [Catalytic activity/Vol] 115 U/L High 35-104 [facility] Serum or plasma calcium caleb urement (mass/volume)Ordered By: Car Solomon on 01-30-2025 Calcium [Mass/Vol] 9.0 mg/dL 7.6-11.0 [facility] Serum or plasma calcium caleb urement (mass/volume)Ordered By: Tammie Pillai on 01-30-2025 Calcium [Mass/Vol] 9.0 mg/dL 7.6-11.0 [facility] Serum or plasma urea nitroge n measurement (mass/volume)Ordered By: Car Solomon on 01-30-2025 Urea nitrogen [Mass/Vol] 37 mg/dL High 4-19 [facility] Serum or plasma urea nitroge n measurement (mass/volume)Ordered By: Tammie Pillai on 01-30-2025 Urea nitrogen [Mass/Vol] 34 mg/dL High - [facility] Sodium levelOrdered By: Alondra Solomon on 01-30-2025 Sodium [Moles/Vol] 132 mmol/L Low 133-145 [facility] Sodium levelOrdered By: Ely Pillai on 01-30-2025 Sodium [Moles/Vol] 132 mmol/L Low 133-145 [facility] Squamous epithelial cells de tection in urine sediment by light microscopyOrdered By: Car Solomon on 01-30-2025 Epithelial cells.squamous LM Ql (Urine sed) 5-10 SEEN /hpf 5-10 [facility] TSH DL <= 0.005 mIU/L QnOrde red By: Tammie Pillai on 01-30-2025 TSH Qn 2.200 uIU/mL 0.300-4.200 [facility] Thyroid Stim Hormone (TSH)on 01-30-2025 TSH 2.200 uIU/mL Normal 0.300-4.200 [facility] Comment on above: Performed By: #### L 100.0100, L300.3900, L503.7505, L500.2500, L501.9520 ####[facility] [id number] [place], [address] Total proteinOrdered By: Shivani Solomon on 01-30-2025 Protein [Mass/Vol] 6.1 g/dL 5.9-8.4 [facility] Transitional cells detection in urine sediment by light microscopyOrdered By: Car Solomon on 01-30-2025 Transitional cells LM Ql (Urine sed) 5-10 SEEN /hpf 0-5 [facility] Troponin T.cardiac [Mass/vol ume] in Serum or Plasma by High sensitivity methodOrdered By: Car Solomon on 01-30-2025 Troponin T.cardiac High sensitivity method [Mass/Vol] 51 ng/L High <14 [facility] Comment on above: CRITICAL CALLED BY Marlen NGUYEN TO HARVEY LAZCANO AT 2124 Troponin T.cardiac High sensitivity method [Mass/Vol] 56 ng/L High <14 [facility] Comment on above: Critical Result(s) C alled at: 2037 by: MICHAELA NGUYEN TO STEVO KING Results read back by same. Urinalysis, Completeon 01-30 EPI,TRANSITION 5-10 SEEN Normal 0-5 [facility] Comment on above: Order Comment: COLLE CTOR TO SPECIFY Performed By: #### L 300.3900 #### [facility] [address] [place], [address] EPI,SQUAMOUS 5-10 SEEN Normal 5-10 [facility] Comment on above: Order Comment: COLLE CTOR TO SPECIFY Performed By: #### L 300.3900 #### [facility] [address] [place], [address] RBC 0-5 SEEN Normal 0-5 [facility] Comment on above: Order Comment: COLLE CTOR TO SPECIFY Performed By: #### L 300.3900 #### [facility] [address] [place], [address] WBC 25-50 SEEN Normal 0-5 [facility] Comment on above: Order Comment: DAPHNEY CTOR TO SPECIFY Performed By: #### L 300.3900 #### [facility] [address] [place], [address] BACTERIA 0 SEEN Normal None Seen [facility] Comment on above: Order Comment: DAPHNEY CTOR TO SPECIFY Performed By: #### L 300.3900 #### [facility] [address] [place], [address] Mucus Ql (Urine sed) 0 SEEN Normal [facility] Comment on above: Order Comment: DAPHNEY CTOR TO SPECIFY Performed By: #### L 300.3900 #### [facility] [address] [place], [address] Urine clarityOrdered By: Shivani Solomon on 01-30-2025 Clarity (U) Cloudy Clear [facility] Urine color determinationOrd ered By: Car Solomon on 01-30-2025 Color (U) Yellow Yellow [facility] Urine glucose detectionOrder ed By: Car Solomon on 01-30-2025 Glucose Ql (U) 1000 mg/dl High Normal [facility] Urine leukocyte esterase det ection by dipstickOrdered By: Car Solomon on 01-30-2025 Leukocyte esterase Test strip Ql (U) 100 /ul High Negative [facility] Urine pHOrdered By: Car raymundo on 01-30-2025 pH (U) 5.0 [pH] 5.0 - 8.0 [facility] Urine sediment bacteria coun t by microscopy (number/high power field)Ordered By: Car Solomon on 01-30-2025 Bacteria LM.HPF (Urine sed) [#/Area] 0 /[HPF] None Seen [facility] Urine specific gravity measu rementOrdered By: Car Solomon on 01-30-2025 Specific gravity (U) [Rel density] 1.015 1.002-1.030 [facility] Urine urobilinogen measureme ntOrdered By: Car Solomon on 01-30-2025 Urobilinogen Ql (U) Normal mg/dl Normal [facility] White blood cell (WBC) count Ordered By: Car Solomon on 01-30-2025 WBC (Bld) [#/Vol] 5.7 10*3/uL 4.4-11.0 [facility] White blood cell (WBC) count Ordered By: Tammie Pillai on 01-30-2025 WBC (Bld) [#/Vol] 5.0 10*3/uL 4.4-11.0 [facility] White blood cell countOrdere d By: Car Solomon on 01-30-2025 White blood cell count 25-50 SEEN /hpf 0-5 [facility] International normalized rat io (INR) calculationOrdered By: Eun Lloyd on 01-10-2025 INR Coag (Bld) [Relative time] 3.5 {INR} [facility] Prothrombin Time w/INRon INR Coag (PPP) [Relative time] 3.5 {INR} Normal [facility] Comment on above: Performed By: #### L 500.2500 #### [facility] [address] [place], [place], [id number] PT Coag (PPP) [Time] 35.5 s High 11.7-14.9 [facility] Comment on above: Performed By: #### L 500.2500 #### [facility] [address] [place], [place], [address] Prothrombin timeOrdered By: Eun Lloyd on 01-10-2025 PT Coag (PPP) [Time] 35.5 s High 11.7-14.9 [facility] Cardiology Visit Reporton Cardiology Visit Report [facility] [address] [place], [place] [address] OFFICE VISIT Date of Service: 01/05/25 MR#: [id number] Acct: [id number] Name: ANA MARIA AVALOS Rep #: [id number] : 1935 Provider: SANDRA Blount Age/Sex: 89/F Location: [facility] Status: Signed HPI HPI History of Present Illness Details: ANA MARIA AVALOS, is a 89 F who presents here today for a cardiovascular follow up. She does have a hx of history of persistent chronic atrial fibrillation/flutter, tachycardic induced cardiomyopathy with systolic CHF, aortic valve stenosis (peak gradient 8mmHg), MR/TR, pulmonary hypertension, hyperlipidemia, and hypertension. In the past she did have an evaluation in the past for her cardiac dysrhythmia by??? EP for possible ablation therapy.??? She states she was thought not to be an ideal candidate. However, they did talk with her about an AV darin ablation. The patient had some medications adjusted were we were treating her LV dysfunction with guideline directed medical therapy and added diltiazem and remove the digoxin. This is allowed for better rate control of her atrial fibrillation and repeat echocardiogram done March 01, 2024 revealed that her EF improved to 57%. She does have moderate 2+ mitral regurgitation and moderate to severe 3+ tricuspid regurgitation. Right ventricular systolic pressure was estimated 51. Right atrial pressure 15. Pts main complaint is fatigue. She has not get up and go. Intake Vital Signs 10/26/24 11:05 01/05/25 09:29 Height 5 ft 8 in 5 ft 8 in Weight: 149 lb BMI 22.6 BP 105/64 Blood Pressure Location Lt brachial Position Sitting Respiration 18 Pulse 56 L Pulse Source Monitor Intake Visit Reasons: Pt r/s from 01/04 with MH: see clinicals. Pharmacist Per Diem Required: No Is patient in pain?: No Allergies bee venom protein (honey bee) Allergy (Unknown, Verified 01/05/25 09:31) UNKNOWN propoxyphene (From Darvocet-N) Allergy (Unknown, Verified 01/05/25 09:31) UNKNOWN codeine Adverse Reaction (Verified 01/05/25 09:31) Other Medications ???Medication ???Instructions ???Recorded ???Confirmed ???Type ascorbic acid (vitamin C) 500 mg 500 mg PO DAILY@0800 SUPPLEMENT 01/05/25 History tablet vitamin B comp and C no.3 15 mg-10 1 ea PO DAILY SUPPLEMENT 5 01/05/25 History mg-50 mg-5 mg-300 mg capsule multivitamin 1 ea PO DAILY VITAMIN 10/14/1712/25 History acetaminophen 500 mg tablet 1,000 mg (2 x 500 mg) PO Q6H PRN 0 09/11/21 01/05/25 Rx PRN Pain Score 1-5 #0 tabs losartan 50 mg tablet 50 mg PO DAILY #90 tabs 03/21/24 0 01/05/25 Rx metoprolol tartrate 100 mg tablet 100 mg PO Q12H #180 tabs 05/23/24 01/05/25 Rx atorvastatin 20 mg tablet 20 mg PO QHS CHOLESTEROL #90 tabs 06/16/24 01/05/25 Rx alendronate 70 mg tablet See Rx Instructions .Route 4 01/05/25 Rx .COMPLEX #14 tabs Handicap Placard #1 ea 08/15/24 01/05/25 Rx diltiazem HCl 120 mg 120 mg PO DAILY #90 caps 09/13/24 01/05/25 Rx capsule,extended release 24 hr spironolactone 25 mg tablet 25 mg PO DAILY #30 tabs 09/13/24 0 01/05/25 Rx warfarin 3 mg tablet 3 mg PO .COMPLEX #180 tabs 5 10/26/24 Rx levothyroxine 112 mcg tablet See Rx Instructions .Route 5 01/05/25 Rx .COMPLEX #90 tabs dapagliflozin propanediol 10 mg 10 mg PO QAM #30 tabs 11/15/2412/25 Rx tablet (Farxiga) Ejection fraction %: 57 Have you fallen in the past year?: Yes (fall 3 weeks ago. unsure if passed out.) [facility] Medical History Elevated C-reactive protein (CRP) Pain in both upper extremities Hemorrhoid CKD (chronic kidney disease), stage III 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 Longstanding persistent atrial fibrillation Foul smelling urine Hx of fracture of femur Dermatitis Nonrheumatic aortic (valve) stenosis Cystitis Osteoporosis Urinary tract infection with hematuria Vision problems Osteopenia Chronic headaches Cataracts, bilateral UTI (urinary tract infection) Back problem Arthritis Seasonal allergies RBBB DDD (degenerative disc disease) Diverticulosis Pure hypercholesterolemia Anemia Pulmonary hypertension Non-rheumatic mitral regurgitation Nonrheumatic tricuspid valve regurgitation Paroxysmal atrial fibrillation Essential hypertension Hyperlipidemia GERD (gastroesophageal reflux disease) Depression Joint pain Headache Snoring Post-nasal drainage Cough Dyspnea on exertion Anxiety Insomnia due to medical condition Hypothyroidism (acquired) Anticoagulation goal of INR 2 to 3 Hypertension Atrial fibrillation with normal ventricular rate 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 Surg (more content not included)... Normal [facility] Bilirubin directOrdered By: Eun Lloyd on 12-02-2024 Bilirubin.direct [Mass/Vol] 0.42 mg/dL High 0.00-0.30 [facility] Bilirubin, totalOrdered By: Eun Lloyd on 12-02-2024 Bilirubin [Mass/Vol] 0.83 mg/dL 0.00-1.30 [facility] Calculated very low density lipoprotein (VLDL) cholesterol measurementOrdered By: Eun Lloyd on 12-02-2024 Calculated very low density lipoprotein (VLDL) cholesterol measurement 16 mg/dL 5-40 [facility] International normalized rat io (INR) calculationOrdered By: Penny Richards on 12-02-2024 INR Coag (Bld) [Relative time] 2.5 {INR} [facility] LDL calc ser/plasOrdered By: Eun Lloyd on 12-02-2024 Cholesterol in LDL [Mass/Vol] 53 mg/dL [facility] Comment on above: Fpxsuhrcfj=621-423 m g/dL & Higher Zwqz=033 mg/dL or greater Laboratory - Chemistry and C hemistry - challengeOrdered By: Eun Lloyd on 12-02-2024 AST [Catalytic activity/Vol] 31 U/L <32 [facility] Lipid Profileon 12-02-2024 CHOL:HDL 2.15 Normal [facility] Comment on above: Performed By: #### L 500.2500 #### [facility] [place], [address] Cholesterol [Mass/Vol] 128 mg/dL Normal <=200 [facility] Comment on above: Result Comment: Chol esterol level, Desirable <200 mg/dL Borderline high cholesterol 200-239 mg/dL High cholesterol >=240 mg/dL Recommendations of the NCEP Adult Treatment Panel for the following risk-cutoff thresholds for the [place] Citizen population. Performed By: #### L 500.2500 #### [facility] [address] [place], [address] Cholesterol in HDL [Mass/Vol] 59 mg/dL Normal [facility] Comment on above: Result Comment: [place]ita onal Cholesterol Education Program (NCEP) guidelines: <40 mg/dL: Low HDL-cholesterol (major risk factor for CHD) >= 60 mg/dL: High HDL-cholesterol (negative risk factor for CHD) HDL-cholesterol is affected by a number of factors, e.g. smoking, exercise, hormones, sex and age. Performed By: #### L 500.2500 #### [facility] [address] [place], [address] Cholesterol in LDL [Mass/Vol] 53 mg/dL Normal [facility] Comment on above: Result Comment: Bord xgrqqd=565-203 mg/dL Higher Dmhl=111 mg/dL or greater Performed By: #### L 500.2500 #### [facility] [address] [place], [address] Cholesterol in VLDL [Mass/Vol] 16 mg/dL Normal 5-40 [facility] Comment on above: Performed By: #### L 500.2500 #### [facility] [address] [place], [address] Triglyceride [Mass/Vol] 79 mg/dL Normal [facility] Comment on above: Result Comment: The drugs N-Acetylcysteine and Metamizole may falsely depress this assay. Normal range: <150 mg/dL Borderline High: 150-199 mg/dL High: 200-499 mg/dL Very High: >500 mg/dL Performed By: #### L 500.2500 #### [facility] [address] [place], [address] Liver Profileon 12-02-2024 Albumin [Mass/Vol] 4.1 g/dL Normal 3.4-4.8 [facility] Comment on above: Performed By: #### L 500.2500 #### [facility] [address] [place], [address] ALK PHOS 94 U/L Normal 35-104 [facility] Comment on above: Performed By: #### L 500.2500 #### [facility] [address] [place], [address] ALT [Catalytic activity/Vol] 22 U/L Normal <=34 [facility] Comment on above: Performed By: #### L 500.2500 #### [facility] [address] [place], [address] AST [Catalytic activity/Vol] 31 U/L Normal <=31 [facility] Comment on above: Performed By: #### L 500.2500 #### [facility] [address] [place], [address] Bilirubin [Mass/Vol] 0.83 mg/dL Normal 0.00-1.30 [facility] Comment on above: Performed By: #### L 500.2500 #### [facility] [address] [place], [address] Bilirubin.direct [Mass/Vol] 0.42 mg/dL High 0.00-0.30 [facility] Comment on above: Performed By: #### L 500.2500 #### [facility] [address] [place], [address] Globulin (S) [Mass/Vol] 2.6 g/dL Normal 2.2-4.2 [facility] Comment on above: Performed By: #### L 500.2500 #### [facility] [address] [place], [address] T PROT 6.7 g/dL Normal 5.9-8.4 [facility] Comment on above: Performed By: #### L 500.2500 #### [facility] [address] [place], [address] No Panel InformationOrdered By: Eun Lloyd on 12-02-2024 31 U/L <32 [facility] Prothrombin Time w/INRon INR Coag (PPP) [Relative time] 2.5 {INR} Normal [facility] Comment on above: Order Comment: Comme nts: STANDING ORDER Performed By: #### L 300.3900 #### [facility] [address] [place], [place], [id number] PT Coag (PPP) [Time] 27.9 s High 11.7-14.9 [facility] Comment on above: Order Comment: Comme nts: STANDING ORDER Performed By: #### L 300.3900 #### [facility] [address] [place], [place], [phone] Prothrombin timeOrdered By: Penny Richards on 12-02-2024 PT Coag (PPP) [Time] 27.9 s High 11.7-14.9 [facility] Screening total cholesterol/ high density lipoprotein (HDL) cholesterol ratioOrdered By: Eun Lloyd on 12-02-2024 Cholesterol.total/Edyta sterol in HDL [Mass ratio] 2.15 {ratio} [facility] Serum globulin measurementOr dered By: Eun Lloyd on 12-02-2024 Globulin (S) [Mass/Vol] 2.6 g/dL 2.2-4.2 [facility] Serum or plasma alanine henderson otransferase (ALT) measurementOrdered By: Eun Lloyd on 12-02-2024 ALT [Catalytic activity/Vol] 22 U/L <35 [facility] Serum or plasma albumin caleb urement (mass/volume)Ordered By: Eun Lloyd on 12-02-2024 Albumin [Mass/Vol] 4.1 g/dL 3.4-4.8 [facility] Serum or plasma alkaline lexus sphatase measurementOrdered By: Eun Lloyd on 12-02-2024 ALP [Catalytic activity/Vol] 94 U/L 35-104 [facility] Serum or plasma cholesterol in HDL measurement (mass/volume)Ordered By: Eun Lloyd on 12-02-2024 Cholesterol in HDL [Mass/Vol] 59 mg/dL >40 [facility] Comment on above: National Cholesterol Education Program (NCEP) guidelines:<40 mg/dL: Low HDL-cholesterol (major risk factor for CHD)>= 60 mg/dL: High HDL-cholesterol (negative risk factor for CHD)HDL-cholesterol is affected by a number of factors, e.g. smoking, exercise, hormones, sex and age. Serum or plasma cholesterol measurement (mass/volume)Ordered By: Eun Lloyd on 12-02-2024 Cholesterol [Mass/Vol] 128 mg/dL <201 [facility] Comment on above: Cholesterol level, D esirable <200 mg/dLBorderline high cholesterol 200-239 mg/dLHigh cholesterol >=240 mg/dLRecommendations of the NCEP Adult Treatment Panel for the following risk-cutoff thresholds for the [place] Citizen population. Total proteinOrdered By: Osvaldo Lloyd on 12-02-2024 Protein [Mass/Vol] 6.7 g/dL 5.9-8.4 [facility] Triglycerides measurementOrd ered By: Eun Lloyd on 12-02-2024 Triglyceride [Mass/Vol] 79 mg/dL <199 [facility] Comment on above: The drugs N-Acetylcy steine and Metamizole may falsely depress this assay. Normal range: <150 mg/dLBorderline High: 150-199 mg/dLHigh: 200-499 mg/dLVery High: >500 mg/dL Bilirubin directOrdered By: Eun Lloyd on 11-02-2024 Bilirubin.direct [Mass/Vol] 0.51 mg/dL High 0.00-0.30 [facility] Bilirubin, totalOrdered By: Eun Lloyd on 11-02-2024 Bilirubin [Mass/Vol] 1.04 mg/dL 0.00-1.30 [facility] Calculated very low density lipoprotein (VLDL) cholesterol measurementOrdered By: Eun Lloyd on 11-02-2024 Calculated very low density lipoprotein (VLDL) cholesterol measurement 12 mg/dL 5-40 [facility] International normalized rat io (INR) calculationOrdered By: Eun Lloyd on 11-02-2024 INR Coag (Bld) [Relative time] 2.6 {INR} [facility] LDL calc ser/plasOrdered By: Eun Lloyd on 11-02-2024 Cholesterol in LDL [Mass/Vol] 61 mg/dL [facility] Comment on above: Uhvbkgzvrj=453-261 m g/dL & Higher Uyqg=404 mg/dL or greater Laboratory - Chemistry and C hemistry - challengeOrdered By: Eun Lloyd on 11-02-2024 AST [Catalytic activity/Vol] 31 U/L <32 [facility] Lipid Profileon 11-02-2024 CHOL:HDL 2.08 Normal [facility] Comment on above: Performed By: #### L 500.2500 #### [facility] [address] [place], [place], [phone] ([phone]) Cholesterol [Mass/Vol] 140 mg/dL Normal <=200 [facility] Comment on above: Result Comment: Chol esterol level, Desirable <200 mg/dL Borderline high cholesterol 200-239 mg/dL High cholesterol >=240 mg/dL Recommendations of the NCEP Adult Treatment Panel for the following risk-cutoff thresholds for the [place] Citizen population. Performed By: #### L 500.2500 #### [facility] [address] [place], [place], [id number] ([phone]) Cholesterol in HDL [Mass/Vol] 67 mg/dL Normal [facility] Comment on above: Result Comment: [place] onal Cholesterol Education Program (NCEP) guidelines: <40 mg/dL: Low HDL-cholesterol (major risk factor for CHD) >= 60 mg/dL: High HDL-cholesterol (negative risk factor for CHD) HDL-cholesterol is affected by a number of factors, e.g. smoking, exercise, hormones, sex and age. Performed By: #### L 500.2500 #### [facility] [address] [place], [place], [phone] ([phone]) Cholesterol in LDL [Mass/Vol] 61 mg/dL Normal [facility] Comment on above: Result Comment: Bord gogbrp=023-861 mg/dL Higher Vwxh=305 mg/dL or greater Performed By: #### L 500.2500 #### [facility] [address], [address] Cholesterol in VLDL [Mass/Vol] 12 mg/dL Normal 5-40 [facility] Comment on above: Performed By: #### L 500.2500 #### [facility] [address] [place], [address] Triglyceride [Mass/Vol] 61 mg/dL Normal [facility] Comment on above: Result Comment: The drugs N-Acetylcysteine and Metamizole may falsely depress this assay. Normal range: <150 mg/dL Borderline High: 150-199 mg/dL High: 200-499 mg/dL Very High: >500 mg/dL Performed By: #### L 500.2500 #### [facility] [address] [place], [address] Liver Profileon 11-02-2024 Albumin [Mass/Vol] 4.2 g/dL Normal 3.4-4.8 [facility] Comment on above: Performed By: #### L 500.2500 #### [facility] [address] [place], [address] ALK PHOS 95 U/L Normal 35-104 [facility] Comment on above: Performed By: #### L 500.2500 #### [facility] [address] [place], [address] ALT [Catalytic activity/Vol] 23 U/L Normal <=34 [facility] Comment on above: Performed By: #### L 500.2500 #### [facility] [address] [place], [address] AST [Catalytic activity/Vol] 31 U/L Normal <=31 [facility] Comment on above: Performed By: #### L 500.2500 #### [facility] [address] [place], [address] Bilirubin [Mass/Vol] 1.04 mg/dL Normal 0.00-1.30 [facility] Comment on above: Performed By: #### L 500.2500 #### [facility] [address] [place], [place], [id number] Bilirubin.direct [Mass/Vol] 0.51 mg/dL High 0.00-0.30 [facility] Comment on above: Performed By: #### L 500.2500 #### [facility] [address] [place], [address] Globulin (S) [Mass/Vol] 2.8 g/dL Normal 2.2-4.2 [facility] Comment on above: Performed By: #### L 500.2500 #### [facility] [address] [place], [address] T PROT 6.9 g/dL Normal 5.9-8.4 [facility] Comment on above: Performed By: #### L 500.2500 #### [facility] [address] [place], [address] No Panel InformationOrdered By: Eun Lloyd on 11-02-2024 31 U/L <32 [facility] Prothrombin Time w/INRon INR Coag (PPP) [Relative time] 2.6 {INR} Normal [facility] Comment on above: Performed By: #### L 500.2500 #### [facility] [address] [place], [address] PT Coag (PPP) [Time] 28.6 s High 11.7-14.9 [facility] Comment on above: Performed By: #### L 500.2500 #### [facility] [address] [place], [address] Prothrombin timeOrdered By: Eun Lloyd on 11-02-2024 PT Coag (PPP) [Time] 28.6 s High 11.7-14.9 [facility] Screening total cholesterol/ high density lipoprotein (HDL) cholesterol ratioOrdered By: Eun Lloyd on 11-02-2024 Cholesterol.total/Edtya sterol in HDL [Mass ratio] 2.08 {ratio} [facility] Serum globulin measurementOr dered By: Eun Lloyd on 11-02-2024 Globulin (S) [Mass/Vol] 2.8 g/dL 2.2-4.2 [facility] Serum or plasma alanine henderson otransferase (ALT) measurementOrdered By: Eun Lloyd on 11-02-2024 ALT [Catalytic activity/Vol] 23 U/L <35 [facility] Serum or plasma albumin caleb urement (mass/volume)Ordered By: Eun Lloyd on 11-02-2024 Albumin [Mass/Vol] 4.2 g/dL 3.4-4.8 [facility] Serum or plasma alkaline lexus sphatase measurementOrdered By: Eun Lloyd on 11-02-2024 ALP [Catalytic activity/Vol] 95 U/L 35-104 [facility] Serum or plasma cholesterol in HDL measurement (mass/volume)Ordered By: Eun Lloyd on 11-02-2024 Cholesterol in HDL [Mass/Vol] 67 mg/dL >40 [facility] Comment on above: National Cholesterol Education Program (NCEP) guidelines:<40 mg/dL: Low HDL-cholesterol (major risk factor for CHD)>= 60 mg/dL: High HDL-cholesterol (negative risk factor for CHD)HDL-cholesterol is affected by a number of factors, e.g. smoking, exercise, hormones, sex and age. Serum or plasma cholesterol measurement (mass/volume)Ordered By: Eun Lloyd on 11-02-2024 Cholesterol [Mass/Vol] 140 mg/dL <201 [facility] Comment on above: Cholesterol level, D esirable <200 mg/dLBorderline high cholesterol 200-239 mg/dLHigh cholesterol >=240 mg/dLRecommendations of the NCEP Adult Treatment Panel for the following risk-cutoff thresholds for the [place] Citizen population. Total proteinOrdered By: Osvaldo Lloyd on 11-02-2024 Protein [Mass/Vol] 6.9 g/dL 5.9-8.4 [facility] Triglycerides measurementOrd ered By: Eun Lloyd on 04-02-2025 Triglyceride [Mass/Vol] 61 mg/dL <199 [facility] Comment on above: The drugs N-Acetylcy steine and Metamizole may falsely depress this assay. Normal range: <150 mg/dLBorderline High: 150-199 mg/dLHigh: 200-499 mg/dLVery High: >500 mg/dL Cardiology Visit Reporton Cardiology Visit Report [facility] [address] [place] [address] OFFICE VISIT Date of Service: 10/26/24 MR#: [id number] Acct: [id number] Name: ANA MARIA AVALOS Rep #: [id number] : 1935 Provider: SANDRA Blount Age/Sex: 89/F Location: [facility] Status: Signed HPI HPI History of Present Illness Details: ANA MARIA AVAOLS, is a 89 F who presents here today for a cardiovascular follow up. She does have a hx of history of persistent chronic atrial fibrillation/flutter, tachycardic induced cardiomyopathy with systolic CHF, aortic valve stenosis (peak gradient 8mmHg), MR/TR, pulmonary hypertension, hyperlipidemia, and hypertension. In the past she did have an evaluation in the past for her cardiac dysrhythmia by??? EP for possible ablation therapy.??? She states she was thought not to be an ideal candidate. However, they did talk with her about an AV darin ablation. The patient had some medications adjusted were we were treating her LV dysfunction with guideline directed medical therapy and added diltiazem and remove the digoxin. This is allowed for better rate control of her atrial fibrillation and repeat echocardiogram done March 01, 2024 revealed that her EF improved to 57%. She does have moderate 2+ mitral regurgitation and moderate to severe 3+ tricuspid regurgitation. Right ventricular systolic pressure was estimated 51. Right atrial pressure 15. The patient is tolerating the Jardiance along with her spironolactone metoprolol and losartan. Last blood work did show that her potassium was 5 and her sodium was depressed. She has been on Lasix 40 mg daily. Intake Vital Signs 03/18/24 10:56 10/26/24 08:39 03/26/25 11:05 Height 5 ft 8 in 5 ft 8 in 5 ft 8 in Weight: 145 lb BMI 22.0 BP 108/65 Blood Pressure Location Lt brachial Position Sitting Respiration 18 Pulse 62 Pulse Source Monitor Pulse Oximetry (%) 92 Intake Visit Reasons: 6 M FU Pharmacist Per Diem Required: No Is patient in pain?: No Allergies bee venom protein (honey bee) Allergy (Unknown, Verified 10/26/24 11:00) UNKNOWN propoxyphene (From Darvocet-N) Allergy (Unknown, Verified 10/26/24 11:00) UNKNOWN codeine Adverse Reaction (Verified 10/26/24 11:00) Other Medications ???Medication ???Instructions ???Recorded ???Confirmed ???Type ascorbic acid (vitamin C) 500 mg 500 mg PO DAILY@0800 SUPPLEMENT 10/26/24 History tablet vitamin B comp and C no.3 15 mg-10 1 ea PO DAILY SUPPLEMENT 5 10/26/24 History mg-50 mg-5 mg-300 mg capsule multivitamin 1 ea PO DAILY VITAMIN 10/14/17 History compress.stocking,knee, reg,lrg #2 ea 05/02/20 09/01/24 Rx acetaminophen 500 mg tablet 1,000 mg (2 x 500 mg) PO Q6H PRN 0 09/11/21 10/26/24 Rx PRN Pain Score 1-5 #0 tabs losartan 50 mg tablet 50 mg PO DAILY #90 tabs 03/21/24 0 10/26/24 Rx metoprolol tartrate 100 mg tablet 100 mg PO Q12H #180 tabs 05/23/24 10/26/24 Rx atorvastatin 20 mg tablet 20 mg PO QHS CHOLESTEROL #90 tabs 06/16/24 10/26/24 Rx alendronate 70 mg tablet See Rx Instructions .Route 4 10/26/24 Rx .COMPLEX #14 tabs Handicap Placard #1 ea 08/15/24 09/01/24 Rx diltiazem HCl 120 mg 120 mg PO DAILY #90 caps 09/13/24 10/26/24 Rx capsule,extended release 24 hr empagliflozin 10 mg tablet 10 mg PO DAILY #30 tabs 09/13/24 0 10/26/24 Rx (Jardiance) spironolactone 25 mg tablet 25 mg PO DAILY #30 tabs 09/13/24 0 10/26/24 Rx warfarin 3 mg tablet 3 mg PO .COMPLEX #180 tabs 5 10/26/24 Rx levothyroxine 112 mcg tablet See Rx Instructions .Route 5 10/26/24 Rx .COMPLEX #90 tabs Ejection fraction %: 57 Have you fallen in the past year?: No PFSH Medical History Elevated C-reactive protein (CRP) Pain in both upper extremities Hemorrhoid CKD (chronic kidney disease), stage III 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 Longstanding persistent atrial fibrillation Foul smelling urine Hx of fracture of femur Dermatitis Nonrheumatic aortic (valve) stenosis Cystitis Osteoporosis Urinary tract infection with hematuria Vision problems Osteopenia Chronic headaches Cataracts, bilateral UTI (urinary tract infection) Back problem Arthritis Seasonal allergies RBBB DDD (degenerative disc disease) Diverticulosis Pure hypercholesterolemia Anemia Pulmonary hypertension Non-rheumatic mitral regurgitation Nonrheumatic tricuspid valve regurgitation Paroxysmal atrial fibrillation Essential hypertension Hyperlipidemia GERD (gastroesophageal reflux disease) Depression Joint pain Headache Snoring Post-nasal drainage Cough Dyspnea on exertion Anxiety Insomnia due to medical c (more content not included)... Normal [facility] CRPon 10-06-2024 C-REACTIVE PROT 3.29 mg/L High 0.0-3.0 [facility] Comment on above: Performed By: #### L 300.3900 #### [facility] [address] [place], [address] CRP [Mass/Vol]Ordered By: Elina Fish on 10-06-2024 C-Reactive Protein Extended Range 3.29 mg/L High 0.0-3.0 [facility] International normalized rat io (INR) calculationOrdered By: Eun Lloyd on 10-06-2024 INR Coag (Bld) [Relative time] 2.6 {INR} [facility] Prothrombin Time w/INRon INR Coag (PPP) [Relative time] 2.6 {INR} Normal [facility] Comment on above: Performed By: #### L 500.2500 #### [facility] [address] [place], [address] PT Coag (PPP) [Time] 28.4 s High 11.7-14.9 [facility] Comment on above: Performed By: #### L 500.2500 #### [facility] [address] [place], [address] Prothrombin timeOrdered By: Eun Lloyd on 10-06-2024 PT Coag (PPP) [Time] 28.4 s High 11.7-14.9 [facility] Serum or plasma C reactive p rotein measurement (mass/volume)Ordered By: Agnieszka Fish on 10-06-2024 CRP [Mass/Vol] 3.29 mg/L High 0.0-3.0 [facility] International normalized rat io (INR) calculationOrdered By: Eun Lloyd on 09-12-2024 INR Coag (Bld) [Relative time] 3.3 {INR} [facility] Prothrombin Time w/INRon INR Coag (PPP) [Relative time] 3.3 {INR} Normal [facility] Comment on above: Performed By: #### L 300.3900 #### [facility] [address] [place], [address] PT Coag (PPP) [Time] 34.1 s High 11.7-14.9 [facility] Comment on above: Performed By: #### L 300.3900 #### [facility] [address] [place], [address] Prothrombin timeOrdered By: Eun Lloyd on 09-12-2024 PT Coag (PPP) [Time] 34.1 s High 11.7-14.9 [facility] 20-DW-Gcdtsdw DOrdered By: Sisi Fish on 09-01-2024 Vitamin D 25-Hydroxy 58.4 ng/mL [facility] Comment on above: Vitamin D 25(OH) Sta tus Range Deficiency <20 ng/mL (50nmol/L) Insufficiency 20 - 30 ng/mL (50 - 75 nmol/L) Sufficiency 30 - 100 ng/mL (75 - 250 nmol/L) Toxicity >100 ng/mL (>250 nmol/L) Absolute neutrophil countOrd ered By: Agnieszka Fish on 09-01-2024 Neutrophils (Bld) [#/Vol] 4.6 10*3/uL 2.0-7.7 [facility] Albumin to globulin ratioOrd ered By: shaneldanburylisa Fish on 09-01-2024 Albumin/Globulin [Mass ratio] 0.9 {ratio} 0.9-2.4 [facility] Basophil percentageOrdered B y: Hughdanburylisa Fish on 09-01-2024 Basophils/100 WBC (Bld) 0.7 % 0-1 [facility] Bilirubin, totalOrdered By: shaneldanburylisa Fish on 09-01-2024 Bilirubin [Mass/Vol] 1.20 mg/dL High 0.20-1.00 [facility] Comment on above: For patients on eltr ombopag therapy, use of Dimension [place] TBIL is not recommended. Blood urea nitrogen (BUN)/cr eatinine ratioOrdered By: Agnieszka Fish on 09-01-2024 Urea nitrogen/Creatinine [Mass ratio] 18.1 mg/mg 10-20 [facility] C-reactive protein measureme nt by high sensitivity methodOrdered By: shaneldanburylisa Jeansisi on 09-01-2024 C-Reactive Protein Extended Range 7.31 mg/L High 0.0-3.0 [facility] Comment on above: C-Reactive Protein ( CRP) provides useful information for thediagnosis, therapy and monitoring of inflammatory processesand associated diseases. For the evaluation of Relative Riskfor Cardiovascular Disease, a High Sensitivity CRP (HSCRP)should be ordered. CBC W/Diff, Automatedon 08-05 Absolute Lymph 1.02 X10 3/uL Normal 0.83-4.51 [facility] Comment on above: Performed By: #### L 300.6488 #### [facility] [place], [address] Absolute Neut 4.6 X10 3/uL Normal 2.0-7.7 [facility] Comment on above: Performed By: #### L 300.3900 #### [facility] [address] [place], [address] Basophils/100 WBC (Bld) 0.7 % Normal 0-1 [facility] Comment on above: Performed By: #### L 300.3900 #### [facility] [address] [place], [address] Eosinophils/100 WBC (Bld) 3.4 % Normal 0-5 [facility] Comment on above: Performed By: #### L 300.3900 #### [facility] [address] [place], [address] Erythrocyte distribution width (RBC) [Ratio] 14.5 % Normal 11.6-14.6 [facility] Comment on above: Performed By: #### L 300.3900 #### [facility] [address] [place], [address] Hematocrit (Bld) [Volume fraction] 41.8 % Normal 37-47 [facility] Comment on above: Performed By: #### L 300.3900 #### [facility] [address] [place], [address] Hemoglobin (Bld) [Mass/Vol] 13.5 g/dL Normal 12.0-15.0 [facility] Comment on above: Performed By: #### L 300.3900 #### [facility] [address] [place], [address] IG% 0.300 Normal 0.0-0.9 [facility] Comment on above: Result Comment: IG% - Immature Granulocytes (promyelocytes, myelocytes and metamyelocytes) > 1% indicates that a LEFT SHIFT is Present. Performed By: #### L 300.3900 #### [facility] [address] [place], [address] Lymphocytes/100 WBC (Bld) 15.1 % Low 19-41 [facility] Comment on above: Performed By: #### L 300.3900 #### [facility] [address] [place], [address] MCH (RBC) [Entitic mass] 32.8 pg High 27.0-32.0 [facility] Comment on above: Performed By: #### L 300.3900 #### [facility] [address] [place], [address] MCHC (RBC) [Mass/Vol] 32.3 g/dL Normal 32-36 [facility] Comment on above: Performed By: #### L 300.3900 #### [facility] [address] [place], [address] MCV (RBC) [Entitic vol] 101.5 fL High 81-99 [facility] Comment on above: Performed By: #### L 300.3900 #### [facility] [address] [place], [address] Monocytes/100 WBC (Bld) 12.4 % High 0-10 [facility] Comment on above: Performed By: #### L 300.3900 #### [facility] [address] [place], [address] Neutrophils/100 WBC (Bld) 68.1 % Normal 47-70 [facility] Comment on above: Performed By: #### L 300.3900 #### [facility] [address] [place], [address] Nucleated RBC (Bld) [#/Vol] 0 10*3/uL Normal 0-5 [facility] Comment on above: Performed By: #### L 300.3900 #### [facility] [address] [place], [address] Platelet mean volume (Bld) [Entitic vol] 8.7 fL Normal 6.2-12.0 [facility] Comment on above: Performed By: #### L 300.3900 #### [facility] [address] [place], [address] Platelets (Bld) [#/Vol] 202 10*3/uL Normal 150-450 [facility] Comment on above: Performed By: #### L 300.3900 #### [facility] [address] [place], [address] RBC (Bld) [#/Vol] 4.12 10*6/uL Low 4.2-5.4 [facility] [facility] Comment on above: Performed By: #### L 300.3900 #### [facility] [address] [place], [address] RDW SD 53.7 fl High 35.1-43.9 [facility] Comment on above: Performed By: #### L 300.3900 #### [facility] [address] [place], [address] WBC (Bld) [#/Vol] 6.8 10*3/uL Normal 4.4-11.0 [facility] Comment on above: Performed By: #### L 300.3900 #### [facility] [address] [place], [address] CRPon 09-01-2024 C-REACTIVE PROT 7.31 mg/L High 0.0-3.0 [facility] Comment on above: Result Comment: C-Re active Protein (CRP) provides useful information for the diagnosis, therapy and monitoring of inflammatory processes and associated diseases. For the evaluation of Relative Risk for Cardiovascular Disease, a High Sensitivity CRP (HSCRP) should be ordered. Performed By: #### L 300.3900 #### [facility] [address] [place], [address] Carbon dioxide measurementOr dered By: Agnieszka Fish on 09-01-2024 CO2 [Moles/Vol] 26.0 mmol/L 21.0-32.0 [facility] Chloride measurementOrdered By: Agnieszka Fish on 09-01-2024 Chloride [Moles/Vol] 99 mmol/L 98-107 [facility] Comprehensive Metabolic Prof ilon 09-01-2024 Albumin [Mass/Vol] 3.5 g/dL Normal 3.2-5.0 [facility] Comment on above: Performed By: #### L 300.3900 #### [facility] [address] [place], [address] Albumin/Globulin [Mass ratio] 0.9 {ratio} Normal 0.9-2.4 [facility] Comment on above: Performed By: #### L 300.3900 #### [facility] [address] [place], [address] ALK P 93 U/L Normal 45-117 [facility] Comment on above: Performed By: #### L 300.3900 #### [facility] [address] [place], [address] ALT [Catalytic activity/Vol] 30 U/L Normal 13-56 [facility] Comment on above: Performed By: #### L 300.3900 #### [facility] [address] [place], [address] AST [Catalytic activity/Vol] 26 U/L Normal 15-37 [facility] Comment on above: Performed By: #### L 300.3900 #### [facility] [address] [place], [address] Bilirubin [Mass/Vol] 1.20 mg/dL High 0.20-1.00 [facility] Comment on above: Result Comment: For patients on eltrombopag therapy, use of Dimension [place] TBIL is not recommended. Performed By: #### L 300.3900 #### [facility] [address] [place], [address] BUN/CRE 18.1 RATIO Normal 10-20 [facility] Comment on above: Performed By: #### L 300.3900 #### [facility] [address] [place], [address] CA,Total 9.6 mg/dL Normal 8.5-10.1 [facility] Comment on above: Performed By: #### L 300.3900 #### [facility] [address] [place], [address] Chloride [Moles/Vol] 99 mmol/L Normal 98-107 [facility] Comment on above: Performed By: #### L 300.3900 #### [facility] [address] [place], [address] CO2 [Moles/Vol] 26.0 mmol/L Normal 21.0-32.0 [facility] Comment on above: Performed By: #### L 300.3900 #### [facility] [address] [place], [address] Creatinine [Mass/Vol] 1.27 mg/dL High 0.55-1.02 [facility] Comment on above: Result Comment: The validity of the calculated GFR GFRAA in patients over 70 years has not been determined. Clinical correlation is essential. Performed By: #### L 300.3900 #### [facility] [address] [place], [address] EST GFR - AA 51 mL/min Low >60 [facility] Comment on above: Result Comment: Afri can [place] Citizen GFR Calc Performed By: #### L 300.3900 #### [facility] [address] [place], [address] GAP 7 Normal 5-15 [facility] Comment on above: Performed By: #### L 300.3900 #### [facility] [address] [place], [address] GFR/1.73 sq M.predicted among non-blacks MDRD (S/P/Bld) [Vol rate/Area] 42 mL/min/{1.73_m2} Low >60 [facility] Comment on above: Result Comment: Non- GFR Calc Performed By: #### L 300.3900 #### [facility] [address] [place], [address] Globulin (S) [Mass/Vol] 3.9 g/dL Normal 2.2-4.2 [facility] Comment on above: Performed By: #### L 300.3900 #### [facility] [address] [place], [address] Glucose [Mass/Vol] 90 mg/dL Normal 74-106 [facility] Comment on above: Performed By: #### L 300.3900 #### [facility] [address] [place], [address] Potassium [Moles/Vol] 5.0 mmol/L Normal 3.5-5.1 [facility] Comment on above: Performed By: #### L 300.3900 #### [facility] [address] [place], [address] Sodium [Moles/Vol] 132 mmol/L Low 136-145 [facility] Comment on above: Performed By: #### L 300.3900 #### [facility] [address] [place], [address] T PROT 7.4 g/dL Normal 6.4-8.2 [facility] Comment on above: Performed By: #### L 300.3900 #### [facility] [address] [place], [address] Urea nitrogen [Mass/Vol] 23 mg/dL High 7-18 [facility] Comment on above: Performed By: #### L 300.3900 #### [facility] [address] [place], [place], [address] Eosinophil percentageOrdered By: Agnieszka Fish on 09-01-2024 Eosinophils/100 WBC (Bld) 3.4 % 0-5 [facility] Erythrocyte Sed Rateon 09-01 SED RATE 12 mm/hr Normal 0-30 [facility] Comment on above: Performed By: #### L 300.3900 #### [facility] [address] [place], [place], [address] Erythrocyte distribution wid th ratioOrdered By: Agnieszka Fish on 09-01-2024 Erythrocyte distribution width (RBC) [Ratio] 14.5 % 11.6-14.6 [facility] Erythrocyte distribution wid th standard deviationOrdered By: Agnieszka Fish on 09-01-2024 Erythrocyte distribution width (RBC) [Entitic vol] 53.7 fL High 35.1-43.9 [facility] Erythrocyte sedimentation ra teOrdered By: Agnieszka Fish on 09-01-2024 ESR (Bld) [Velocity] 12 mm/h 0-30 [facility] Estimated glomerular filtrat ion rate (GFR) AmericanOrdered By: Agnieszka Fish on 09-01-2024 Estimated GFR (MDRD) Amer 51 mL/min Low >60 [facility] Comment on above: GFR Calc Glomerular filtration rate ( GFR) estimationOrdered By: Agnieszka Fish on 09-01-2024 Estimated GFR (MDRD) Non-Af Amer 42 mL/min Low >60 [facility] Comment on above: Non- GFR Calc Glucose measurementOrdered B y: Agnieszka Fish on 09-01-2024 Glucose [Mass/Vol] 90 mg/dL 74-106 [facility] Hematocrit Auto (Bld) [Volum e fraction]Ordered By: Agnieszka Fish on 09-01-2024 Hematocrit (Bld) [Volume fraction] 41.8 % 37-47 [facility] Hemoglobin measurementOrdere d By: Agnieszka Fish on 09-01-2024 Hemoglobin (Bld) [Mass/Vol] 13.5 g/dL 12.0-15.0 [facility] Immature granulocytes/100 WB C Auto (Bld)Ordered By: Agnieszka Fish on 09-01-2024 Immature granulocytes/100 WBC (Bld) 0.300 % 0.0-0.9 [facility] Comment on above: IG% - Immature Granu locytes (promyelocytes, myelocytes and metamyelocytes) > 1% indicates that a LEFT SHIFT is Present. Internal Medicine Office Vis iton 09-01-2024 Internal Medicine Office Visit [facility] [address] [place], [place] [address] OFFICE VISIT Date of Service: 09/01/24 MR#: [id number] Acct: [id number] Name: ANA MARIA AVALOS Rep #: [id number] : 1935 Provider: Dr. Agnieszka kebede MD Age/Sex: 89/F Location: [facility] Status: Signed Intake Vital Signs 03/18/24 10:56 09/01/24 14:13 Height 5 ft 8 in 5 ft 8 in Weight: 146 lb 6 oz BMI 22.2 BP 102/62 Blood Pressure Location Lt brachial Position Sitting Respiration 16 Pulse 82 Pulse Source Monitor Temp 96.2 F L Temp Source Temporal Pulse Oximetry (%) 94 Oxygen Delivery Method room air Intake Visit Reasons: 6 M FU Chief Complaint: Follow-up chronic conditions Pharmacist Per Diem Required: No Accompanied by: Self Is patient in pain?: No Allergies bee venom protein (honey bee) Allergy (Unknown, Verified 09/01/24 14:10) UNKNOWN propoxyphene (From Darvocet-N) Allergy (Unknown, Verified 09/01/24 14:10) UNKNOWN codeine Adverse Reaction (Verified 09/01/24 14:10) Other Medications ???Medication ???Instructions ???Recorded ???Confirmed ???Type ascorbic acid (vitamin C) 500 mg 500 mg PO DAILY@0800 SUPPLEMENT 09/01/24 History tablet vitamin B comp and C no.3 15 mg-10 1 ea PO DAILY SUPPLEMENT 5 09/01/24 History mg-50 mg-5 mg-300 mg capsule multivitamin 1 ea PO DAILY VITAMIN 10/14/17 History compress.stocking,knee, reg,lrg #2 ea 05/02/20 09/01/24 Rx acetaminophen 500 mg tablet 1,000 mg (2 x 500 mg) PO Q6H PRN 0 09/11/21 09/01/24 Rx PRN Pain Score 1-5 #0 tabs warfarin 3 mg tablet 3 mg PO .COMPLEX #180 tabs 4 09/01/24 Rx empagliflozin 10 mg tablet 10 mg PO DAILY #30 tabs 11/10/23 0 09/01/24 Rx (Jardiance) spironolactone 25 mg tablet 25 mg PO DAILY #30 tabs 11/10/23 0 09/01/24 Rx diltiazem HCl 120 mg 120 mg PO DAILY #90 caps 12/02/23 09/01/24 Rx capsule,extended release 24 hr levothyroxine 112 mcg tablet See Rx Instructions .Route 4 09/01/24 Rx .COMPLEX #60 tabs losartan 50 mg tablet 50 mg PO DAILY #90 tabs 03/21/24 0 09/01/24 Rx metoprolol tartrate 100 mg tablet 100 mg PO Q12H #180 tabs 05/23/24 09/01/24 Rx atorvastatin 20 mg tablet 20 mg PO QHS CHOLESTEROL #90 tabs 06/16/24 09/01/24 Rx alendronate 70 mg tablet See Rx Instructions .Route 4 09/01/24 Rx .COMPLEX #14 tabs Handicap Placard #1 ea 08/15/24 09/01/24 Rx Have you fallen in the past year?: No Nurse's Note: patient stated she has been very tired and also having some arthritic pain [facility] Medical History (Updated 09/01/24 @ 18:[address] 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 Longstanding persistent atrial fibrillation Foul smelling urine Hx of fracture of femur Dermatitis Nonrheumatic aortic (valve) stenosis Cystitis Osteoporosis Urinary tract infection with hematuria Vision problems Osteopenia Chronic headaches Cataracts, bilateral UTI (urinary tract infection) Back problem Arthritis Seasonal allergies RBBB DDD (degenerative disc disease) Diverticulosis Pure hypercholesterolemia Anemia Pulmonary hypertension Non-rheumatic mitral regurgitation Nonrheumatic tricuspid valve regurgitation Paroxysmal atrial fibrillation Essential hypertension Hyperlipidemia GERD (gastroesophageal reflux disease) Depression Joint pain Headache Snoring Post-nasal drainage Cough Dyspnea on exertion Anxiety Insomnia due to medical condition Hypothyroidism (acquired) Anticoagulation goal of INR 2 to 3 Hypertension Atrial fibrillation with normal ventricular rate 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 Surgical History History of cataract extraction History of cardioversion ( 07/15/22) History of total left knee replacement Status post surgical manipulation of ankle joint Status post total left knee replacement Family History Mother Heart disease High cholesterol Osteoporosis CVA (cerebral vascular accident) Hypertension Father Hypertension Alcohol abuse Sister Asthma Hypertension Thyroid disorder Social History household members: none Smoking Status: Never smoker alcohol intake: never substance use type: does not use what type of physical activity do you participate in: none HPI HPI Chief Complaint: Follow-up chronic conditions Details: ANA MARIA AVALOS, is a 89 F who presents to the office today for follow-up of her chronic medical conditions. Also has some concerns. She states that she believes that she has a hemorrhoid (more content not included)... Normal [facility] Laboratory - Chemistry and C hemistry - challengeOrdered By: Agnieszka Fish on 09-01-2024 AST [Catalytic activity/Vol] 26 U/L 15-37 [facility] Lymphocytes Auto (Unsp spec) [#/Vol]Ordered By: Agnieszka Fish on 09-01-2024 Lymphocytes (Bld) [#/Vol] 1.02 10*3/uL 0.83-4.51 [facility] Lymphocytes/100 WBC Auto (Un sp spec)Ordered By: Agnieszka Fish on 09-01-2024 Lymphocytes/100 WBC (Bld) 15.1 % Low 19-41 [facility] MCV (mean corpuscular volume ) determinationOrdered By: Agnieszka Fish on 09-01-2024 MCV (RBC) [Entitic vol] 101.5 fL High 81-99 [facility] Mean corpuscular hemoglobin (MCH) determinationOrdered By: Agnieszka Fish on 09-01-2024 MCH (RBC) [Entitic mass] 32.8 pg High 27.0-32.0 [facility] Mean corpuscular hemoglobin concentration (MCHC) determinationOrdered By: Agnieszka Fish on 09-01-2024 MCHC (RBC) [Mass/Vol] 32.3 g/dL 32-36 [facility] Mean platelet volume determi nationOrdered By: Agnieszka Fish on 09-01-2024 Platelet mean volume (Bld) [Entitic vol] 8.7 fL 6.2-12.0 [facility] Monocyte percentageOrdered B y: Agnieszka Fish on 09-01-2024 Monocytes/100 WBC (Bld) 12.4 % High 0-10 [facility] Neutrophil percentageOrdered By: Agnieszka Fish on 09-01-2024 Neutrophils/100 WBC (Bld) 68.1 % 47-70 [facility] Nucleated red blood cell per centageOrdered By: Agnieszka Fish on 09-01-2024 Nucleated RBC/100 WBC (Bld) [Ratio] 0 % 0-5 [facility] Platelet countOrdered By: Elina Fish on 09-01-2024 Platelets (Bld) [#/Vol] 202 10*3/uL 150-450 [facility] Potassium measurementOrdered By: Agnieszka Fish on 09-01-2024 Potassium [Moles/Vol] 5.0 mmol/L 3.5-5.1 [facility] RBC Auto (Bld) [#/Vol]Ordere d By: Agnieszka Fish on 09-01-2024 RBC (Bld) [#/Vol] 4.12 10*6/uL Low 4.2-5.4 [facility] Serum anion gap measurementO rdered By: Agnieszka Fish on 09-01-2024 Anion gap [Moles/Vol] 7 mmol/L 5-15 [facility] Serum globulin measurementOr dered By: Agnieszka Fish on 09-01-2024 Globulin (S) [Mass/Vol] 3.9 g/dL 2.2-4.2 [facility] Serum or plasma alanine henderson otransferase (ALT) measurementOrdered By: Agnieszka Fish on 09-01-2024 ALT [Catalytic activity/Vol] 30 U/L 13-56 [facility] Serum or plasma albumin caleb urement (mass/volume)Ordered By: Agnieszka Fish on 09-01-2024 Albumin [Mass/Vol] 3.5 g/dL 3.2-5.0 [facility] Serum or plasma alkaline lexus sphatase measurementOrdered By: shaneldanburylisa Jeansisi on 09-01-2024 ALP [Catalytic activity/Vol] 93 U/L 45-117 [facility] Serum or plasma calcium caleb urement (mass/volume)Ordered By: Agnieszka Fish on 09-01-2024 Calcium [Mass/Vol] 9.6 mg/dL 8.5-10.1 [facility] Serum or plasma creatinine m easurement (mass/volume)Ordered By: Agnieszka Fish on 09-01-2024 Creatinine [Mass/Vol] 1.27 mg/dL High 0.55-1.02 [facility] Comment on above: The validity of the calculated GFR & GFRAA in patients over 70 years has not been determined. Clinical correlation is essential. Serum or plasma urea nitroge n measurement (mass/volume)Ordered By: Agnieszka Fish on 09-01-2024 Urea nitrogen [Mass/Vol] 23 mg/dL High 7-18 [facility] Sodium levelOrdered By: Hugh beckettreed Polina on 09-01-2024 Sodium [Moles/Vol] 132 mmol/L Low 136-145 [facility] TSH QnOrdered By: Agnieszka Fish on 09-01-2024 Thyroid Stimulating Hormone (TSH) 1.010 uIU/mL 0.358-3.740 [facility] Thyroid Stim Hormone (TSH)on 09-01-2024 TSH 1.010 uIU/mL Normal 0.358-3.740 [facility] Comment on above: Performed By: #### L 300.3900 #### [facility] [address] [place], [place], [id number] Total proteinOrdered By: Sid Fish on 09-01-2024 Protein [Mass/Vol] 7.4 g/dL 6.4-8.2 [facility] Vitamin D,25 Hydroxyon 09-01 Vitamin D 25-OH 58.4 ng/mL Normal [facility] Comment on above: Result Comment: Payton min D 25(OH) Status Range Deficiency <20 ng/mL (50nmol/L) Insufficiency 20 - 30 ng/mL (50 - 75 nmol/L) Sufficiency 30 - 100 ng/mL (75 - 250 nmol/L) Toxicity >100 ng/mL (>250 nmol/L) Performed By: #### L 300.3900 #### [facility] [address] [facility] [facility] [place], [address] White blood cell (WBC) count Ordered By: Agnieszka Fish on 09-01-2024 WBC (Bld) [#/Vol] 6.8 10*3/uL 4.4-11.0 [facility] International normalized rat io (INR) calculationOrdered By: Eun Lloyd on 08-15-2024 INR Coag (Bld) [Relative time] 2.7 {INR} [facility] Prothrombin Time w/INRon INR Coag (PPP) [Relative time] 2.7 {INR} Normal [facility] Comment on above: Performed By: #### L 500.2500 #### [facility] [address] [place], [place], [id number] PT Coag (PPP) [Time] 29.3 s High 11.7-14.9 [facility] Comment on above: Performed By: #### L 500.2500 #### [facility] [address] [place], [place], [id number] Prothrombin timeOrdered By: Eun Lloyd on 08-15-2024 PT Coag (PPP) [Time] 29.3 s High 11.7-14.9 [facility] International normalized rat io (INR) calculationOrdered By: Eun Lloyd on 08-01-2024 INR Coag (Bld) [Relative time] 2.3 {INR} [facility] Prothrombin Time w/INRon INR Coag (PPP) [Relative time] 2.3 {INR} Normal [facility] Comment on above: Performed By: #### L 300.3900 #### [facility] [address] [place], [address] PT Coag (PPP) [Time] 25.8 s High 11.7-14.9 [facility] Comment on above: Performed By: #### L 300.3900 #### [facility] [address] [place], [address] Prothrombin timeOrdered By: Eun Lloyd on 08-01-2024 PT Coag (PPP) [Time] 25.8 s High 11.7-14.9 [facility] Prothrombin Time w/INRon INR Coag (PPP) [Relative time] 3.0 {INR} Normal [facility] Comment on above: Performed By: #### L 300.3900 #### [facility] [address] [place], [address] PT Coag (PPP) [Time] 31.2 s High 11.7-14.9 [facility] Comment on above: Performed By: #### L 300.3900 #### [facility] [address] [place], [address] Prothrombin Time w/INRon INR Coag (PPP) [Relative time] 2.7 {INR} Normal [facility] Comment on above: Performed By: #### L 500.2500 #### [facility] [address] [place], [address] PT Coag (PPP) [Time] 28.1 s High 11.7-14.9 [facility] Comment on above: Performed By: #### L 500.2500 #### [facility] [address] [place], [address] Prothrombin Time w/INRon INR Coag (PPP) [Relative time] 3.7 {INR} Normal [facility] Comment on above: Performed By: #### L 500.2500 #### [facility] [address] [place], [address] PT Coag (PPP) [Time] 36.5 s High 11.7-14.9 [facility] Comment on above: Performed By: #### L 500.2500 #### [facility] [address] [place], [address] Basic Metabolic Profile (BMP )on 05-06-2024 BUN/CRE 16.1 RATIO Normal - [facility] Comment on above: Performed By: #### L 500.2500 #### [facility] [address] [place], [address] CA,Total 9.2 mg/dL Normal 8.5-10.1 [facility] Comment on above: Performed By: #### L 500.2500 #### [facility] [address] [place], [address] Chloride [Moles/Vol] 100 mmol/L Normal 98-107 [facility] Comment on above: Performed By: #### L 500.2500 #### [facility] [address] [place], [address] CO2 [Moles/Vol] 27.0 mmol/L Normal 21.0-32.0 [facility] Comment on above: Performed By: #### L 500.2500 #### [facility] [address] [place], [address] Creatinine [Mass/Vol] 1.18 mg/dL High 0.55-1.02 [facility] Comment on above: Result Comment: The validity of the calculated GFR GFRAA in patients over 70 years has not been determined. Clinical correlation is essential. Performed By: #### L 500.2500 #### [facility] [address] [place], [address] EST GFR - AA 56 mL/min Low >60 [facility] Comment on above: Result Comment: Afri can [place] Citizen GFR Calc Performed By: #### L 500.2500 #### [facility] [address] [place], [address] GAP 4 Low 5-15 [facility] Comment on above: Performed By: #### L 500.2500 #### [facility] [address] [place], [address] GFR/1.73 sq M.predicted among non-blacks MDRD (S/P/Bld) [Vol rate/Area] 46 mL/min/{1.73_m2} Low >60 [facility] Comment on above: Result Comment: Non- GFR Calc Performed By: #### L 500.2500 #### [facility] [address] [place], [address] Glucose [Mass/Vol] 102 mg/dL Normal 74-106 [facility] Comment on above: Result Comment: Fast ing Glucose result from 100 to 125 mg/dL suggests IMPAIRED HOMEOSTASIS per A.D.A. criteria. Performed By: #### L 500.2500 #### [facility] [address] [place], [address] Potassium [Moles/Vol] 5.2 mmol/L High 3.5-5.1 [facility] Comment on above: Performed By: #### L 500.2500 #### [facility] [address] [place], [address] Sodium [Moles/Vol] 131 mmol/L Low 136-145 [facility] Comment on above: Performed By: #### L 500.2500 #### [facility] [address] [place], [address] Urea nitrogen [Mass/Vol] 19 mg/dL High 7-18 [facility] Comment on above: Performed By: #### L 500.2500 #### [facility] [address] [place], [address] Prothrombin Time w/INRon INR Coag (PPP) [Relative time] 2.1 {INR} Normal [facility] Comment on above: Performed By: #### L 300.3900 #### [facility] [address] [place], [address] PT Coag (PPP) [Time] 23.0 s High 11.7-14.9 [facility] Comment on above: Performed By: #### L 300.3900 #### [facility] [address] [place], [address] Prothrombin Time w/INRon INR Coag (PPP) [Relative time] 2.3 {INR} Normal [facility] Comment on above: Performed By: #### L 300.3900 #### [facility] [address] [place], [address] PT Coag (PPP) [Time] 25.4 s High 11.7-14.9 [facility] Comment on above: Performed By: #### L 300.3900 #### [facility] [address] [place], [address] Prothrombin Time w/INRon INR Coag (PPP) [Relative time] 1.7 {INR} Normal [facility] Comment on above: Performed By: #### L 300.3900 #### [facility] [address] [place], [address] PT Coag (PPP) [Time] 20.0 s High 11.7-14.9 [facility] Comment on above: Performed By: #### L 300.3900 #### [facility] [address] [place], [address] Basic Metabolic Profile (BMP )on 04-05-2024 BUN/CRE 16.9 RATIO Normal 10-20 [facility] Comment on above: Performed By: #### L 300.3900 #### [facility] [address] [place], [address] CA,Total 9.2 mg/dL Normal 8.5-10.1 [facility] Comment on above: Performed By: #### L 300.3900 #### [facility] [address] [place], [address] Chloride [Moles/Vol] 101 mmol/L Normal 98-107 [facility] Comment on above: Performed By: #### L 300.3900 #### [facility] [address] [place], [address] CO2 [Moles/Vol] 26.0 mmol/L Normal 21.0-32.0 [facility] Comment on above: Performed By: #### L 300.3900 #### [facility] [address] [place], [address] Creatinine [Mass/Vol] 1.24 mg/dL High 0.55-1.02 [facility] Comment on above: Result Comment: The validity of the calculated GFR GFRAA in patients over 70 years has not been determined. Clinical correlation is essential. Performed By: #### L 300.3900 #### [facility] [address] [place], [address] EST GFR - AA 53 mL/min Low >60 [facility] Comment on above: Result Comment: Afri can [place] Citizen GFR Calc Performed By: #### L 300.3900 #### [facility] [address] [place], [address] GAP 5 Normal 5-15 [facility] Comment on above: Performed By: #### L 300.3900 #### [facility] [address] [place], [address] GFR/1.73 sq M.predicted among non-blacks MDRD (S/P/Bld) [Vol rate/Area] 43 mL/min/{1.73_m2} Low >60 [facility] Comment on above: Result Comment: Non- GFR Calc Performed By: #### L 300.3900 #### [facility] [address] [place], [address] Glucose [Mass/Vol] 87 mg/dL Normal 74-106 [facility] Comment on above: Performed By: #### L 300.3900 #### [facility] [address] [place], [address] Potassium [Moles/Vol] 5.2 mmol/L High 3.5-5.1 [facility] Comment on above: Performed By: #### L 300.3900 #### [facility] [address] [place], [address] Sodium [Moles/Vol] 132 mmol/L Low 136-145 [facility] Comment on above: Performed By: #### L 300.3900 #### [facility] [address] [place], [address] Urea nitrogen [Mass/Vol] 21 mg/dL High 7-18 [facility] Comment on above: Performed By: #### L 300.3900 #### [facility] [address] [place], [address] CNOVon 03-01-2024 CNOV Office Visit (KLAUS CHAKRABORTY MAI) ANA MARIA AVALOS ([id number]) 1935 F Date Time Provider Department 03/01/24 2:15 PM [facility] During your visit today, we recorded the following information about you: Pulse Blood pressure Weight Height 67/minute 118/85 65.4 kg 1.727 m Reno Dukes MD 03/01/2024 6:19 PM Signed [facility] SECTION OF HEART FAILURE and CARDIAC TRANSPLANT MEDICINE OUTPATIENT VISIT DATE March 01, 2024 OUTPATIENT VISIT TYPE Consultation PRIMARY CARE PHYSICIAN: Agnieszka Fish (Carla) [address] [place] [address] CHIEF COMPLAINT: Some fatigue NURSING INTAKE (Patient?s concerns and/or recent hospitalizations/ER visits): Ana Maria Avalos is being referred by Dr. Edmond for optimization of GDMT, consider transition to Entresto. 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 This winter experienced shortness of breath, fatigue, and dizziness. Echo done at [facility] in october of this year, reports EF was 30%. HF Nursing Assessment: Interim Hospitalizations and/or ER visits: no Chest Pain: no Skipping or irregular heartbeats: yes, occasionally. Has improved since the winter. Happen with exertion or at rest Shortness of breath at rest: no Shortness of breath with activity: yes Cough: no Waking up in the middle of the night gasping for air: no Lightheadedness or dizziness: yes Feeling like you are going to pass out: no Actually passing out: no Poor energy level: improved Unintentional weight gain: no Unintentional weight loss: no Swelling in your legs,feet, abdomen: no Filling up quickly when you eat: no Exercise: gardening/house work HISTORY OF PRESENT ILLNESS: 88 year old female Long standing a fib, now chronic, on warfarin and rate control HFpEF, on lasix and jardiance (SGLT started in Spring after low EF found) Essential hypertension She had an echo in Sep 2023 in [place] reportedly showing EF of 30%, we do not have any images and I do not see an official report. At that time, her metoprolol was changed to short acting 100 mg bid, cardizem was added, jardiance, and spironolatone. Her losartan dose stayed stable. This improved some SOB and fatigue she was having and can now do much more, although still not where she wants to be. She was sent back to [facility] main to see EP, holter showed average HR 82 with no sig juan or tachy Sent to me today with concomitant echo to opine on medical therapy PAST MEDICAL HISTORY Diagnosis Date Ankle fracture [...] BREAST PERC VACUUM/ROTN 12/27/2009 CARDIOVERSION 03/03/2011 In [place] OPEN TX FEMORAL SUPRACONDYLAR FRACTURE W/XTN Left 08/29/2021 PAST SURGICAL HISTORY OF right ankle ORIF for triamalleolar fracture S $ KNEE TOTAL ARTHR PRASHANTH Left 05/07/2015 [facility] [place]. LTK replacement arthroplasty SIGMOIDOSCOPY FLX DX W/COLLJ SPEC BR/WA IF PFRMD 08/03/1999 Sigmoidoscopy SOCIAL HISTORY Social History Tobacco Use Smoking status: Never Smokeless tobacco: Never Vaping Use Vaping Use: Never used Substance Use Topics Alcohol use: Yes Comment: Rarely Drug use: No FAMILY HISTORY Problem Relation Age of Onset Hypertension Mother Arthritis Mother Hypertension Sister Asthma Sister Osteoporosis Paternal Aunt ALLERGIES: ALLERGIES Allergen Reactions Codele Lucerocet A500 [Prop* Intolerance CURRENT MEDICATIONS: furosemide (LASIX) 20 mg tablet Take 40 mg by mouth once daily. spironolactone (ALDACTONE) 25 mg tablet Take 25 mg by mouth once daily. alendronate (FOSAMAX) 70 mg tablet Take 1 tablet by mouth one time a week. On Saturdays Cholecalciferol, Vitamin D3, (VITAMIN D-3) 50 mcg (2,000 unit) cap Take 4,000 Units by mouth once daily. cyanocobalamin (VITAMIN B-12) 1,000 mcg tab Take 1,000 mcg by mouth once daily. FOLIC ACID ORAL Take 400 mcg by mouth once daily. Zlhnv-6-SEI-EPA-Fish Oil (FISH OIL) 1,000 mg (120 mg-180 mg) cap Take 2 g by mouth two times a day. metoprolol tartrate, short acting, (LOPRESSOR) 100 mg tablet Take 100 mg by mouth two times a day. dilTIAZem ER (CARDIZEM SR) 120 mg 12 hr capsule Take 120 mg (more content not included)... Normal [facility] ECHOon 03-01-2024 Echocardiography Echocardiography Report: Transthoracic Echo [facility] [id number] Date of service: 03/01/2024 12:07:52 PM ARCHITECT Ordering physician: DANNY EDMOND Indication: Nonsustained atrial fibrillation Technologist: Marcia Pollock Interpreting physician: Tommy Garcia MD PATIENT: Name: MRS. ANA MARIA AVALOS : 1935 Age: 88 years Gender: F History of hypertension, dyslipidemia and arrhythmia. Primary rhythm: atrial fib. Height: 172.70 cm BSA: 1.81 m Weight: 68.04 kg BMI: 22.8 kg/m Heart rate 95 bpm Blood pressure 124/73 mmHg Color Doppler was utilized to interrogate the cardiac valves assessed and spectral Doppler was utilized to determine the flow velocities and pressure gradients reported in this exam. MEASUREMENTS: Value Indexed Normal Max aortic dimension 3.5 cm Ao < 3.8 Left atrial volume 84 ml (biplane A-L) 47 ml/m Edwin <= 34 LV ID (diastole) 3.7 cm (2D) 2.05 cm/m LV ID (systole) 2.1 cm (2D) 1.16 cm/m IVS, leaflet tips 1.5 cm (2D) Posterior wall thickness 1.5 cm (2D) Left ventricular mass 209 g (2D) 116 g/m LV stroke volume 22 ml (2D biplane) LV end diastolic volume 39 ml (2D biplane) 21.4 ml/m 29<=EDVi<62 LV end systolic volume 16 ml (2D biplane) 9.1 ml/m Ejection Fraction 57 % (2D biplane) EF > 54 FINDINGS: LEFT VENTRICLE The left ventricle is small. Left ventricular systolic function is normal. Left ventricular diastolic function was not evaluated due to AF. Wall Motion: All scored segments are normal. RIGHT VENTRICLE The right ventricle is normal in size. Right ventricular systolic function is low normal. RV systolic tissue Doppler velocity is 8.7 cm/s. Tricuspid annular displacement is 1.6 cm. Estimated right ventricular systolic pressure is 51 mmHg consistent with moderate pulmonary hypertension. Estimated right atrial pressure is 15 mmHg based on IVC assessment. LEFT ATRIUM The left atrial cavity is moderately dilated. Pulmonary Veins: The pulmonary venous pattern showed blunted systolic flow. RIGHT ATRIUM The right atrial cavity is dilated. Inferior Vena Cava: The inferior vena cava appears dilated measuring 2.2 cm. The vessel decreases less than 50 percent with inspiration. MITRAL VALVE There is mild mitral annular calcification observed posterior. There is moderate (2+) mitral valve regurgitation. There is mild thickening. TRICUSPID VALVE There is moderately severe (3+) tricuspid valve regurgitation caused by annular dilatation. There is mild thickening. The hepatic venous pattern showed blunted systolic flow. AORTIC VALVE There is trace aortic valve regurgitation. Tricuspid aortic valve. There is moderate thickening. The peak gradient is 8 mmHg (peak velocity = 143.0 cm/s). PULMONIC VALVE The pulmonic valve cusps are structurally normal. There is trace pulmonic valve regurgitation. AORTA The visualized aorta is normal in size. Measurements - Sinus: 3.5 cm. Mid ascending aorta 3.4 cm. PULMONARY ARTERIES The pulmonary arteries are unseen or not interrogated. INTERVENTRICULAR SEPTUM There is no flow through the interventricular septum as detected by Doppler. PERICARDIUM There is no pericardial effusion. CONCLUSIONS: - Exam indication: Nonsustained atrial fibrillation - The left ventricle is small. Left ventricular systolic function is normal. EF = 57 5% (2D biplane) Left ventricular diastolic function [...] and RV systolic function appear slightly worse. * * * Final * * * [employer] [facility] : [id number] Normal [facility] CNOVon 12-24-2023 CNOV Office Visit (CARDMN ) ROBBIEANA MARIA Cristal ([id number]) 1935 F Date Time Provider Department 12/24/23 12:45 PM DANNY EDMOND During your visit today, we recorded the following information about you: Pulse Blood pressure Weight Height 89/minute 131/76 68 kg 1.727 m Danny Edmond MD 12/24/2023 3:02 PM Signed [facility] Department of Cardiovascular Medicine SECTION OF CARDIAC PACING and ELECTROPHYSIOLOGY OUTPATIENT VISIT DATE December 24, 2023 OUTPATIENT VISIT TYPE NEW PRIMARY CARE PHYSICIAN: Agnieszka Fish (Kathryn) [address] [place] [address] REFERRING PHYSICIAN: PENNY LLOYD [address] [place], [place] [address]y [facility] [address] CHIEF COMPLAINT: Persistent atrial fibrillation HISTORY OF PRESENT ILLNESS: Ms. Avalos is a 88 year old female who presents today for evaluation of atrial fibrillation. She has a past medical history of hypertension, hyperlipidemia, persistent atrial fibrillation, and hypothyroidism. She was an established patient of [facility] Edmond last seen in December 2017, she had underwent several cardioversion and attempted drug loading with Tikosyn but this was not tolerated due to prolonged QT. She was previously managed with amiodarone since November 2015. She has discussed AVN and PPM implant. She followed with her local provider and had amiodarone stopped due to persistent atrial fibrillation. She has been expressing concern related to worsening symptoms with her locla provider who advised an evaluation at [facility]. Patient states that she has been experiencing shortness of breath, low energy level, lightheadedness, and a decreased activity tolerance. She denies abdominal distention, edema, palpitations, PND, or syncope. She finds herself significantly limited with activity finding she frequently needs to take breaks from exertion. PAST MEDICAL HISTORY Diagnosis Date Ankle fracture October trimalleolar fracture right ankle (11/02 suregery) Arthritis Atrial fibrillation (HCC) INR goal 2.5-3.5 Degeneration of intervertebral disc, site unspecified DDD; had sciatica in her 40's Disorder of bone and cartilage, unspecified osteopenia Diverticulosis of colon (without mention of hemorrhage) Essential hypertension, benign History of total left knee replacement Nontoxic multinodular goiter Pure hypercholesterolemia Unspecified hypothyroidism PAST SURGICAL HISTORY Procedure Laterality Date BX BREAST PERC VACUUM/ROTN 12/27/2009 CARDIOVERSION 03/03/2011 In [place] OPEN TX FEMORAL SUPRACONDYLAR FRACTURE W/XTN Left 08/29/2021 PAST SURGICAL HISTORY OF right ankle ORIF for triamalleolar fracture S $ KNEE TOTAL ARTHR PRASHANTH Left 05/07/2015 [facility] [place]. LTK replacement arthroplasty SIGMOIDOSCOPY FLX DX W/COLLJ SPEC BR/WA IF PFRMD 08/03/1999 Sigmoidoscopy SOCIAL HISTORY Social History Tobacco Use Smoking status: Never Smokeless tobacco: Never Vaping Use Vaping Use: Never used Substance Use Topics Alcohol use: Yes Comment: Rarely Drug use: No FAMILY HISTORY Problem Relation Age of Onset Hypertension Mother Arthritis Mother Hypertension Sister Asthma Sister Osteoporosis Paternal Aunt ALLERGIES: ALLERGIES Allergen Reactions Bees Codeine Darvocet A500 [Prop* Environmental [Othe* MEDICATIONS: potassium chloride ER (K-DUR, KLOR-CON) 20 mEq tablet Take 1 tablet by mouth twice daily. warfarin (COUMADIN) 3 mg tablet Take 3 mg by mouth daily as directed. Take 1.5 tabs (4.5 mg) Thursday and Thursday. All other days take 2 tablets (6mg). Per [facility] in [place]- pt filled prescription June 26, 2021. losartan (COZAAR) 50 mg tablet Take 1 tablet by mouth once daily. (Patient taking differently: Take 25 mg by mouth once daily.) furosemide (LASIX) 20 mg tablet Take 2 tabs in the AM, 1 tab in the PM atorvastatin (LIPITOR) 20 mg tablet Take 1 tablet by mouth once daily. betamethasone valerate (BETA-CHERYL) 0.1 % cream Apply 1 application to affected area three times daily as needed. acetaminophen (TYLENOL) 325 mg tablet Take 650 mg by mouth every 4 hours as needed. aspirin EC (ASPIR-81) 81 mg ORAL TbEC One tablet daily ascorbic acid(VITAMIN C 500 MG TAB) Take one(1) tablet daily. GLUCOSAMINE CHONDROITIN MAXSTR 500 MG-400 MG CAP Take two (2) tablet three times daily. MULTIVITAMIN TAB Take one(1) tablet daily. CALCIUM + D 600 MG-200 UNIT TAB Take one(1) tablet two(2) times daily. B COMPLEX TAB Take one(1) tablet daily. metoprolol tartrate, short acting, (LOPRESSOR) 100 mg tablet Take 100 mg by mouth once daily. dilTIAZem ER (CARDIZEM SR) 120 mg 12 hr capsule Take 120 mg by mouth once daily. levothyroxine (SYNTHROID) 112 mcg tablet Take 112 mcg by mouth daily before breakfast. empagliflozin (JARDIANCE) 10 mg tablet Take 10 mg by mouth (more content not included)... Normal [facility] ECG COMPLETEon 12-24-2023 ECG COMPLETE Ventricular Rate : 8 3 BPM QRS Duration : 98 ms Q-T Interval : 402 ms QTC Calculation(Bazett) : 472 ms Calculated R [place] : -15 degrees Calculated T [place] : 54 degrees ATRIAL FIBRILLATION INCOMPLETE RIGHT BUNDLE BRANCH BLOCK NONSPECIFIC ST AND T WAVE ABNORMALITY PROLONGED QT INTERVAL OR TU FUSION, CONSIDER HYPOKALEMIA ABNORMAL ECG Confirmed by KATELYN ALBERTO MD ([id number]) on 01/04/2024 11:56:49 PM NAME : ANA MARIA AVALOS PID : [id number] : 1935 Gender : Female Race : ORD : [id number] Procedure Date : Dec 24 2023 11:25:23 Edit Date : Jan 04 2024 23:56:55 Diagnosis: ATRIAL FIBRILLATION INCOMPLETE RIGHT BUNDLE BRANCH BLOCK NONSPECIFIC ST AND T WAVE ABNORMALITY PROLONGED QT INTERVAL OR TU FUSION, CONSIDER HYPOKALEMIA ABNORMAL ECG Confirmed by KATELYN ALBERTO MD ([id number]) on 01/04/2024 11:56:49 PM Test Reason : Location : 314 : J14 Overread By : KATELYN ALBERTO MD Edited By : KATELYN ALBERTO MD Referred By : DANNY EDMOND Acquired by : CATIE GR [facility] HOLTER MONITOR 24 HOURon HOLTER MONITOR 24 HOUR Holter Report : IMPRESSIONS AND FINDINGS: Atrial fibrillation (100%) with frequent periods of rapid ventricular response (29%), occasional ventricular ectopy burden. Maximum HR 132 bpm. Minimum HR 59 bpm. Average HR 83 bpm. Occasional ventricular ectopy seen as singles, couplets and bigeminal cycles. Patient did not record any symptoms. Event marker was not activated. JACQUELINE Rico,CCT, scanned on 12/31/2023 Confirmed by DANNY EDMOND MD ([id number]) on 02/03/2024 5:18:14 PM Hookup Date: 20231224 Hookup Time: [id number] Recording Duration: 73239 S Minimum Heart Rate: 59 BPM Minimum Heart Rate Date/Time: 20231225 [id number] Maximum Heart Rate: 132 BPM Maximum Heart Rate Date/Time: 20231225 [id number] Average Heart Rate: 83 BPM Longest RR: 1.805 S Longest RR DATE/TIME: 20231225 [id number] QRS complexes: 247732 Ventricular Ectopics: 2761 Ventricular Isolated Beats: 2749 Ventricular Bigeminal Cycles: 208 Ventricular Couplets: 6 Ventricular Runs: 0 Ventricular Beats in Runs: 0 Supraventricular Ectopics: 0 Supraventricular Isolated Beats: 0 Supraventricular Couplets: 0 Supraventricular Runs: 0 Supraventricular Beats in Runs: 0 Overreading Physician: DANNY EDMOND MD [facility] Violet 12-02-2023 CNPN Telephone (CARDMN) ANA MARIA AVALOS ([id number]) 1935 F Date Time Provider Department 12/02/23 DANNY EDMOND During your visit today, we recorded the following information about you: Piper Brito 12/02/2023 2:52 PM Addendum Outside [id number] AND Scan Docs Referral- 12/24 (Dr. Eun Lloyd, PA) Office Visit- 12/24 EKG- 10/24 TTE Echo- 09/26 Stress Test- 09/26 Holter Report- 12/24 Cardioversion- 07/24 Labs- 11/24otto Brito Allergies As of Date: 12/02/2023 Noted Allergy Reaction BEES 06/20/2005 CODEINE 06/20/2005 DARVOCET A500 (PROPOXYPHENE N-CARLINE*06/20/2005 Environmental [Other] 06/20/2005 Date Reviewed: 09/01/2021 Reviewed by: Eula Loja, RN - Fully Assessed Reason for Visit: Received Outside Medical Records [[id number]] Cmt: [facility] Referral Prescriptions as of 12/02/2023 - docusate sodium (COLACE) 100 mg capsule Take 1 capsule by mouth twice daily as needed. - oxyCODONE IR (ROXICODONE) 5 mg immediate release tablet Take 1 tablet by mouth every 6 hours as needed. - polyethylene glycol 3350 (MIRALAX, GLYCOLAX) 17 gram packet Take 1 Packet by mouth once daily as needed. Dissolve dose in 4 - 8 ounces of liquid and take as directed. - potassium chloride ER (K-DUR, KLOR-CON) 20 mEq tablet Take 1 tablet by mouth twice daily. - warfarin (COUMADIN) 3 mg tablet Take 3 mg by mouth daily as directed. Take 1.5 tabs (4.5 mg) Thursday and Thursday. All other days take 2 tablets (6mg). Per [facility] in [place]- pt filled prescription June 26, 2021. - amLODIPine (NORVASC) 2.5 mg tablet Take 1 tablet by mouth once daily. - losartan (COZAAR) 50 mg tablet Take 1 tablet by mouth once daily. - furosemide (LASIX) 20 mg tablet Take 2 tabs in the AM, 1 tab in the PM - atorvastatin (LIPITOR) 20 mg tablet Take 1 tablet by mouth once daily. - amiodarone (PACERONE) 200 mg tablet Take 0.5 tablets by mouth once daily. - levothyroxine (SYNTHROID) 100 mcg tablet Take 1 tablet by mouth once daily. TAKE ONE TABLET BY MOUTH ONCE DAILY ON EMPTY stomach - Omeprazole 40 mg capsule Take 1 capsule by mouth once daily. - metoprolol succinate ER (TOPROL XL) 25 mg 24 hr tablet Take 0.5 tablets by mouth once daily. - COMPOUNDED PRESCRIPTION 1 box of non-adherent 4x4 gauze pads - betamethasone valerate (BETA-CHERYL) 0.1 % cream Apply 1 application to affected area three times daily as needed. - acetaminophen (TYLENOL) 325 mg tablet Take 650 mg by mouth every 4 hours as needed. - aspirin EC (ASPIR-81) 81 mg ORAL TbEC One tablet daily - ascorbic acid(VITAMIN C 500 MG TAB) Take one(1) tablet daily. - estradiol(ESTRACE 0.01% (0.1 MG/G) VAGINAL CREAM) 1gm vaginally once weekly - GLUCOSAMINE CHONDROITIN MAXSTR 500 MG-400 MG CAP Take two (2) tablet three times daily. - MULTIVITAMIN TAB Take one(1) tablet daily. - CALCIUM + D 600 MG-200 UNIT TAB Take one(1) tablet two(2) times daily. - B COMPLEX TAB Take one(1) tablet daily. Problem List As Of Date 12/02/2023 Noted Resolved Hypothyroidism [E03.9] NONTOX MULTINODUL GOITER [E04.2] DIVERTICULOSIS OF COLON W/O BLEED [K57.30] OSTEOPENIA [M89.9, M94.9] Degeneration of Intervertebral Disc, Site Unspe* INSOMNIA NOS [G47.00] 06/23/2005 Essential hypertension [I10] 12/19/2005 HYPERLIPIDEMIA NEC/NOS [E78.5] 12/19/2005 ANXIETY STATE NOS [F41.1] 12/19/2005 COMMON MIGRAINE [346.1] 09/24/2006 HEADACHE [R51] 09/24/2006 Other alopecia [L65.8] 12/27/2008 04/30/2010 Abnormal Mammogram, Unspecified [R92.8] 12/18/2009 Atrial fibrillation (HCC) [I48.91] 12/16/2010 History of total left knee replacement [Z96.652] SUMMARY 11/29/2015 Hypertension [I10] 11/29/2015 12/12/2016 Chronic diastolic CHF (congestive heart failure*11/12/2018 Femur fracture (HCC) [S72.90XA] 08/29/2021 Hypoxia [R09.02] 08/29/2021 Encounter Status:Closed by PIPER BRITO on 12/02/23 Normal [facility] Laboratory - CoagulationOrde red By: Eun Lloyd on 11-16-2023 INR Coag (Bld) [Relative time] 2.6 {INR} [facility] PT Coag (PPP) [Time] 27.8 s 11.7-14.9 [facility] Laboratory - CoagulationOrde red By: Eun Lloyd on 10-19-2023 INR Coag (Bld) [Relative time] 2.3 {INR} [facility] PT Coag (PPP) [Time] 25.1 s 11.7-14.9 [facility] Basophil percentageOrdered B y: Eun Lloyd on 09-21-2023 Chloride [Moles/Vol] 109 mmol/L 98-107 [facility] Glucose [Mass/Vol] 76 mg/dL 74-106 [facility] Potassium [Moles/Vol] 4.3 mmol/L 3.5-5.1 [facility] Sodium [Moles/Vol] 141 mmol/L 136-145 [facility] Laboratory - Chemistry and C hemistry - challengeOrdered By: Eun Lloyd on 09-21-2023 CO2 [Moles/Vol] 28.0 mmol/L 21.0-32.0 [facility] Urea nitrogen/Creatinine [Mass ratio] 14.7 mg/mg 10-20 [facility] Laboratory - CoagulationOrde red By: Eun Lloyd on 09-21-2023 INR Coag (Bld) [Relative time] 3.0 {INR} [facility] PT Coag (PPP) [Time] 31.6 s 11.7-14.9 [facility] No Panel InformationOrdered By: Eun Lloyd on 09-21-2023 Estimated GFR (MDRD) Amer 57 mL/min >60 [facility] Comment on above: GFR Calc Estimated GFR (MDRD) Non-Af Amer 47 mL/min >60 [facility] Comment on above: Non- GFR Calc Serum or plasma calcium caleb urement (mass/volume)Ordered By: Eun Lloyd on 09-21-2023 Calcium [Mass/Vol] 9.5 mg/dL 8.5-10.1 [facility] Serum or plasma creatinine m easurement (mass/volume)Ordered By: Eun Lloyd on 09-21-2023 Creatinine [Mass/Vol] 1.16 mg/dL 0.55-1.02 [facility] Comment on above: The validity of the calculated GFR & GFRAA in patients over 70 years has not been determined. Clinical correlation is essential. Serum or plasma urea nitroge n measurement (mass/volume)Ordered By: Eun Lloyd on 09-21-2023 Urea nitrogen [Mass/Vol] 17 mg/dL 7-18 [facility] Thin prep Papanicolaou smear with manual screeningOrdered By: Eun Lloyd on 09-21-2023 Thin prep Papanicolaou smear with manual screening 4 5-15 [facility] Basophil percentageOrdered B y: Eun Lloyd on 08-31-2023 Chloride [Moles/Vol] 112 mmol/L 98-107 [facility] Glucose [Mass/Vol] 79 mg/dL 74-106 [facility] Potassium [Moles/Vol] 4.8 mmol/L 3.5-5.1 [facility] Sodium [Moles/Vol] 142 mmol/L 136-145 [facility] International normalized rat io (INR) calculationOrdered By: Eun Lloyd on 08-31-2023 INR Coag (PPP) [Relative time] 3.0 {INR} [facility] Laboratory - Chemistry and C hemistry - challengeOrdered By: Eun Lloyd on 08-31-2023 CO2 [Moles/Vol] 25.0 mmol/L 21.0-32.0 [facility] Urea nitrogen/Creatinine [Mass ratio] 18.0 mg/mg 10-20 [facility] - CoagulationOrde red By: Eun Lloyd on 08-31-2023 PT Coag (PPP) [Time] 31.3 s 11.7-14.9 [facility] No Panel InformationOrdered By: Eun Lloyd on 08-31-2023 Estimated GFR (MDRD) Amer 60 mL/min >60 [facility] Comment on above: GFR Calc Estimated GFR (MDRD) Non-Af Amer 49 mL/min >60 [facility] Comment on above: Non- GFR Calc Serum or plasma calcium caleb urement (mass/volume)Ordered By: Eun Lloyd on 08-31-2023 Calcium [Mass/Vol] 9.0 mg/dL 8.5-10.1 [facility] Serum or plasma creatinine m easurement (mass/volume)Ordered By: Eun Lloyd on 08-31-2023 Creatinine [Mass/Vol] 1.11 mg/dL 0.55-1.02 [facility] Comment on above: The validity of the calculated GFR & GFRAA in patients over 70 years has not been determined. Clinical correlation is essential. Serum or plasma urea nitroge n measurement (mass/volume)Ordered By: Eun Lloyd on 08-31-2023 Urea nitrogen [Mass/Vol] 20 mg/dL 7-18 [facility] Thin prep Papanicolaou smear with manual screeningOrdered By: Eun Lloyd on 08-31-2023 Thin prep Papanicolaou smear with manual screening 5 5-15 [facility] No Panel InformationOrdered By: Agnieszka Fish on 08-14-2023 Thyroid Stimulating Hormone (TSH) 2.42 uIU/mL 0.358-3.74 [facility] Basophil percentageOrdered B y: Eun Lloyd on 07-15-2023 Bilirubin [Mass/Vol] 0.90 mg/dL 0.20-1.00 [facility] Comment on above: For patients on eltr ombopag therapy, use of Dimension [place] TBIL is not recommended. Cholesterol [Mass/Vol] 184 mg/dL <200 [facility] Comment on above: <200 mg/dL Desirable 200-240 mg/dL Borderline >240 mg/dL High Risk Protein [Mass/Vol] 7.6 g/dL 6.4-8.2 [facility] Triglyceride [Mass/Vol] 149 mg/dL <199 [facility] Comment on above: The drugs N-Acetylcy steine and Metamizole may falsely depress this assay.Serum Triglycerides Reference Interval Normal <150 mg/dL Borderline high 150 - 199 mg/dL High 200 - 499 mg/dL Very High > or = 500 mg/dL Basophil percentageOrdered B y: Agnieszka Fish on 07-15-2023 Chloride [Moles/Vol] 105 mmol/L 98-107 [facility] Glucose [Mass/Vol] 91 mg/dL 74-106 [facility] Potassium [Moles/Vol] 4.5 mmol/L 3.5-5.1 [facility] Sodium [Moles/Vol] 140 mmol/L 136-145 [facility] Direct bilirubinOrdered By: Eun Lloyd on 07-15-2023 Bilirubin.direct [Mass/Vol] 0.24 mg/dL 0.00-0.30 [facility] Laboratory - Chemistry and C hemistry - challengeOrdered By: Eun Lloyd on 07-15-2023 ALP [Catalytic activity/Vol] 76 U/L 45-117 [facility] ALT [Catalytic activity/Vol] 32 U/L 13-56 [facility] Globulin (S) [Mass/Vol] 3.9 g/dL 2.2-4.2 [facility] Laboratory - Chemistry and C hemistry - challengeOrdered By: Agnieszka Fish on 07-15-2023 CO2 [Moles/Vol] 31.0 mmol/L 21.0-32.0 [facility] Urea nitrogen/Creatinine [Mass ratio] 17.2 mg/mg 10- [facility] Laboratory - CoagulationOrde red By: Eun Lloyd on 07-15-2023 PT Coag (PPP) [Time] 28.7 s 11.7-14.9 [facility] No Panel InformationOrdered By: Agnieszka Fish on 07-15-2023 Estimated GFR (MDRD) Amer 54 mL/min >60 [facility] Comment on above: GFR Calc Estimated GFR (MDRD) Non-Af Amer 44 mL/min >60 [facility] Comment on above: Non- GFR Calc Thyroid Stimulating Hormone (TSH) 7.35 uIU/mL 0.358-3.74 [facility] Serum or plasma albumin caleb urement (mass/volume)Ordered By: Eun Lloyd on 07-15-2023 Albumin [Mass/Vol] 3.7 g/dL 3.2-5.0 [facility] Serum or plasma calcium caleb urement (mass/volume)Ordered By: Agnieszka Fish on 07-15-2023 Calcium [Mass/Vol] 9.2 mg/dL 8.5-10.1 [facility] Serum or plasma cholesterol in HDL measurement (mass/volume)Ordered By: Eun Lloyd on 07-15-2023 Cholesterol in HDL [Mass/Vol] 85 mg/dL >40 [facility] Comment on above: The drugs N-Acetylcy steine and Metamizole may falsely depress this assay. Reference Range HDL <40 mg/dL Low HDL Cholesterol HDL >or= 60 mg/dL High HDL Cholesterol Serum or plasma cholesterol in VLDL measurement (mass/volume)Ordered By: Eun Lloyd on 07-15-2023 Cholesterol in VLDL [Mass/Vol] 30 mg/dL 5-40 [facility] Serum or plasma creatinine m easurement (mass/volume)Ordered By: Agnieszka Fish on 07-15-2023 Creatinine [Mass/Vol] 1.22 mg/dL 0.55-1.02 [facility] Comment on above: The validity of the calculated GFR & GFRAA in patients over 70 years has not been determined. Clinical correlation is essential. Serum or plasma low density lipoprotein (LDL) cholesterol measurement (mass/volume)Ordered By: Eun Lloyd on 07-15-2023 Cholesterol in LDL [Mass/Vol] 69 mg/dL 0-130 [facility] Serum or plasma urea nitroge n measurement (mass/volume)Ordered By: Agnieszka Fish on 07-15-2023 Urea nitrogen [Mass/Vol] 21 mg/dL 7-18 [facility] Thin prep Papanicolaou smear with manual screeningOrdered By: Eun Lloyd on 07-15-2023 Thin prep Papanicolaou smear with manual screening 29 U/L 15-37 [facility] Thin prep Papanicolaou smear with manual screeningOrdered By: Agnieszka Fish on 07-15-2023 Thin prep Papanicolaou smear with manual screening 4 5-15 [facility] Whole blood international no rmalized ratio (INR)Ordered By: Eun Lloyd on 07-15-2023 INR Coag (Bld) [Relative time] 2.7 {INR} [facility] Laboratory - CoagulationOrde red By: Eun Lloyd on 06-18-2023 PT Coag (PPP) [Time] 32.7 s 11.7-14.9 [facility] Whole blood international no rmalized ratio (INR)Ordered By: Eun Lloyd on 06-18-2023 INR Coag (Bld) [Relative time] 3.1 {INR} [facility] INR in Blood by Coagulation assayOrdered By: Eun Lloyd on 05-29-2023 INR Coag (Bld) [Relative time] 3.2 {INR} [facility] Laboratory - CoagulationOrde red By: Eun Lloyd on 05-29-2023 PT Coag (PPP) [Time] 32.8 s 11.7-14.9 [facility] INR in Blood by Coagulation assayOrdered By: Agnieszka Fish on 04-17-2023 INR Coag (Bld) [Relative time] 2.6 {INR} [facility] Laboratory - CoagulationOrde red By: Agnieszka Fish on 04-17-2023 PT Coag (PPP) [Time] 27.8 s 11.7-14.9 [facility] No Panel InformationOrdered By: Agnieszka Fish on 04-17-2023 Vitamin D 25-Hydroxy 54.8 ng/mL [facility] Comment on above: Vitamin D 25(OH) Sta tus Range Deficiency <20 ng/mL (50nmol/L) Insufficiency 20 - 30 ng/mL (50 - 75 nmol/L) Sufficiency 30 - 100 ng/mL (75 - 250 nmol/L) Toxicity >100 ng/mL (>250 nmol/L) INR in Blood by Coagulation assayOrdered By: Eun Lloyd on 03-18-2023 INR Coag (Bld) [Relative time] 3.1 {INR} [facility] Laboratory - CoagulationOrde red By: Eun Lloyd on 03-18-2023 PT Coag (PPP) [Time] 32.7 s 11.7-14.9 [facility] INR in Blood by Coagulation assayOrdered By: Eun Lloyd on 02-12-2023 INR Coag (Bld) [Relative time] 2.9 {INR} [facility] Laboratory - CoagulationOrde red By: Eun Lloyd on 02-12-2023 PT Coag (PPP) [Time] 30.6 s 11.7-14.9 [facility] Absolute lymphocyte countOrd ered By: Agnieszka Fish on 01-23-2023 Lymphocytes Auto (Unsp spec) [#/Vol] 0.76 10*3/uL 0.83-4.51 [facility] Basophil percentageOrdered B y: Agnieszka Fish on 01-23-2023 Basophils/100 WBC (Bld) 1.4 % 0-1 [facility] Chloride [Moles/Vol] 106 mmol/L 98-107 [facility] Eosinophils/100 WBC (Bld) 12.8 % 0-5 [facility] Glucose [Mass/Vol] 96 mg/dL 74-106 [facility] Neutrophils (Bld) [#/Vol] 3.9 10*3/uL 2.0-7.7 [facility] Neutrophils/100 WBC (Bld) 61.8 % 47-70 [facility] Potassium [Moles/Vol] 4.4 mmol/L 3.5-5.1 [facility] Sodium [Moles/Vol] 140 mmol/L 136-145 [facility] WBC (Bld) [#/Vol] 6.2 10*3/uL 4.4-11.0 [facility] Basophil percentageOrdered B y: Eun Lloyd on 01-23-2023 Bilirubin [Mass/Vol] 1.00 mg/dL 0.20-1.00 [facility] Comment on above: For patients on eltr ombopag therapy, use of Dimension [place] TBIL is not recommended. Cholesterol [Mass/Vol] 198 mg/dL <200 [facility] Comment on above: <200 mg/dL Desirable 200-240 mg/dL Borderline >240 mg/dL High Risk Protein [Mass/Vol] 7.5 g/dL 6.4-8.2 [facility] Triglyceride [Mass/Vol] 90 mg/dL <199 [facility] Comment on above: The drugs N-Acetylcy steine and Metamizole may falsely depress this assay.Serum Triglycerides Reference Interval Normal <150 mg/dL Borderline high 150 - 199 mg/dL High 200 - 499 mg/dL Very High > or = 500 mg/dL Blood erythrocytes count (nu mber/volume)Ordered By: Agnieszka Fish on 01-23-2023 RBC (Bld) [#/Vol] 4.35 10*6/uL 4.2-5.4 [facility] Blood hemoglobin measurement (mass/volume)Ordered By: Agnieszka Fish on 01-23-2023 Hemoglobin (Bld) [Mass/Vol] 14.7 g/dL 12.0-15.0 [facility] Blood lymphocytes/100 leukoc ytesOrdered By: Agnieszka Fish on 01-23-2023 Lymphocytes/100 WBC (Bld) 12.2 % 19-41 [facility] Blood monocytes/100 leukocyt esOrdered By: Agnieszka Fish on 01-23-2023 Monocytes/100 WBC (Bld) 11.5 % 0-10 [facility] Blood platelet mean volumeOr dered By: Agnieszka Fish on 01-23-2023 Platelet mean volume (Bld) [Entitic vol] 8.7 fL 6.2-12.0 [facility] Determination of erythrocyte mean corpuscular volume (MCV)Ordered By: Agnieszka Fish on 01-23-2023 MCV (RBC) [Entitic vol] 104.4 fL 81-99 [facility] Direct bilirubinOrdered By: Eun Lloyd on 01-23-2023 Bilirubin.direct [Mass/Vol] 0.25 mg/dL 0.00-0.30 [facility] Hematocrit Auto (Bld) [Volum e fraction]Ordered By: Agnieszka Fish on 01-23-2023 Hematocrit (Bld) [Volume fraction] 45.4 % 37-47 [facility] INR in Blood by Coagulation assayOrdered By: Eun Lloyd on 01-23-2023 INR Coag (Bld) [Relative time] 2.4 {INR} [facility] Laboratory - Chemistry and C hemistry - challengeOrdered By: Eun Lloyd on 01-23-2023 ALP [Catalytic activity/Vol] 80 U/L 45-117 [facility] ALT [Catalytic activity/Vol] 32 U/L 13-56 [facility] Globulin (S) [Mass/Vol] 3.8 g/dL 2.2-4.2 [facility] Laboratory - Chemistry and C hemistry - challengeOrdered By: Agnieszka Fish on 01-23-2023 CO2 [Moles/Vol] 28.0 mmol/L 21.0-32.0 [facility] Urea nitrogen/Creatinine [Mass ratio] 16.7 mg/mg 10-20 [facility] Laboratory - CoagulationOrde red By: Eun Lloyd on 01-23-2023 PT Coag (PPP) [Time] 26.6 s 11.7-14.9 [facility] Laboratory - Hematology and Cell countsOrdered By: Agnieszka Fish on 01-23-2023 Erythrocyte distribution width (RBC) [Entitic vol] 58.6 fL 35.1-43.9 [facility] Erythrocyte distribution width (RBC) [Ratio] 14.9 % 11.6-14.6 [facility] Immature granulocytes/100 WBC (Bld) 0.300 % 0.0-0.9 [facility] Comment on above: IG% - Immature Granu locytes (promyelocytes, myelocytes and metamyelocytes) > 1% indicates that a LEFT SHIFT is Present. MCH (RBC) [Entitic mass] 33.8 pg 27.0-32.0 [facility] Nucleated RBC/100 WBC (Bld) [Ratio] 0 % 0-5 [facility] MCHC Auto (RBC) [Mass/Vol]Or dered By: Agnieszka Fish on 01-23-2023 MCHC (RBC) [Mass/Vol] 32.4 g/dL 32-36 [facility] No Panel InformationOrdered By: Agnieszka Fish on 01-23-2023 Estimated GFR (MDRD) Amer 58 mL/min >60 [facility] Comment on above: GFR Calc Estimated GFR (MDRD) Non-Af Amer 48 mL/min >60 [facility] Comment on above: Non- GFR Calc Thyroid Stimulating Hormone (TSH) 7.89 uIU/mL 0.358-3.74 [facility] Platelets bldOrdered By: Sid Fish on 01-23-2023 Platelets (Bld) [#/Vol] 253 10*3/uL 150-450 [facility] Serum or plasma albumin caleb urement (mass/volume)Ordered By: Eun Lloyd on 01-23-2023 Albumin [Mass/Vol] 3.7 g/dL 3.2-5.0 [facility] Serum or plasma calcium caleb urement (mass/volume)Ordered By: Agnieszka Fish on 01-23-2023 Calcium [Mass/Vol] 9.2 mg/dL 8.5-10.1 [facility] Serum or plasma cholesterol in HDL measurement (mass/volume)Ordered By: Eun Lloyd on 01-23-2023 Cholesterol in HDL [Mass/Vol] 94 mg/dL >40 [facility] Comment on above: The drugs N-Acetylcy steine and Metamizole may falsely depress this assay. Reference Range HDL <40 mg/dL Low HDL Cholesterol HDL >or= 60 mg/dL High HDL Cholesterol Serum or plasma cholesterol in VLDL measurement (mass/volume)Ordered By: Eun Lloyd on 01-23-2023 Cholesterol in VLDL [Mass/Vol] 18 mg/dL 5-40 [facility] Serum or plasma creatinine m easurement (mass/volume)Ordered By: Agnieszka Fish on 01-23-2023 Creatinine [Mass/Vol] 1.14 mg/dL 0.55-1.02 [facility] Comment on above: The validity of the calculated GFR & GFRAA in patients over 70 years has not been determined. Clinical correlation is essential. Serum or plasma low density lipoprotein (LDL) cholesterol measurement (mass/volume)Ordered By: Eun Lloyd on 01-23-2023 Cholesterol in LDL [Mass/Vol] 86 mg/dL 0-130 [facility] Serum or plasma urea nitroge n measurement (mass/volume)Ordered By: Agnieszka Fish on 01-23-2023 Urea nitrogen [Mass/Vol] 19 mg/dL 7-18 [facility] Thin prep Papanicolaou smear with manual screeningOrdered By: Eun Lloyd on 01-23-2023 Thin prep Papanicolaou smear with manual screening 33 U/L 15-37 [facility] Thin prep Papanicolaou smear with manual screeningOrdered By: Agnieszka Fish on 01-23-2023 Thin prep Papanicolaou smear with manual screening 6 5-15 [facility] INR in Blood by Coagulation assayOrdered By: Eun Lloyd on 01-01-2023 INR Coag (Bld) [Relative time] 3.3 {INR} [facility] - CoagulationOrde red By: Eun Lloyd on 01-01-2023 PT Coag (PPP) [Time] 33.9 s 11.7-14.9 [facility] INR in Blood by Coagulation assayOrdered By: Eun Lloyd on 12-04-2022 INR Coag (Bld) [Relative time] 2.4 {INR} [facility] - CoagulationOrde red By: Eun Lloyd on 12-04-2022 PT Coag (PPP) [Time] 26.7 s 11.7-14.9 [facility] INR in Blood by Coagulation assayOrdered By: Dr. Babin on 10-31-2022 INR Coag (Bld) [Relative time] 3.1 {INR} [facility] - CoagulationOrde red By: Dr. Babin on 10-31-2022 PT Coag (PPP) [Time] 31.4 s 11.7-14.9 [facility] INR in Blood by Coagulation assayOrdered By: Dr. Babin on 09-26-2022 INR Coag (Bld) [Relative time] 2.7 {INR} [facility] - CoagulationOrde red By: Dr. Babin on 09-26-2022 PT Coag (PPP) [Time] 27.9 s 11.7-14.9 [facility] No Panel Informationon 09-18 Influenza Types A,B Rapid (Clinic) Negative [facility] POC SARS CoV-2 Antigen Negative [facility] Basophil percentageOrdered B y: Eun Lloyd on 08-21-2022 Bilirubin [Mass/Vol] 0.60 mg/dL 0.20-1.00 [facility] Comment on above: For patients on eltr ombopag therapy, use of Dimension [place] TBIL is not recommended. Cholesterol [Mass/Vol] 180 mg/dL <200 [facility] Comment on above: <200 mg/dL Desirable 200-240 mg/dL Borderline >240 mg/dL High Risk Protein [Mass/Vol] 7.2 g/dL 6.4-8.2 [facility] Triglyceride [Mass/Vol] 168 mg/dL <199 [facility] Comment on above: The drugs N-Acetylcy steine and Metamizole may falsely depress this assay.Serum Triglycerides Reference Interval Normal <150 mg/dL Borderline high 150 - 199 mg/dL High 200 - 499 mg/dL Very High > or = 500 mg/dL Direct bilirubinOrdered By: Eun Lloyd on 08-21-2022 Bilirubin.direct [Mass/Vol] 0.15 mg/dL 0.00-0.30 [facility] INR in Blood by Coagulation assayOrdered By: Eun Lloyd on 08-21-2022 INR Coag (Bld) [Relative time] 3.0 {INR} [facility] Laboratory - Chemistry and C hemistry - challengeOrdered By: Eun Lloyd on 08-21-2022 ALP [Catalytic activity/Vol] 74 U/L 45-117 [facility] ALT [Catalytic activity/Vol] 35 U/L 13-56 [facility] Globulin (S) [Mass/Vol] 3.6 g/dL 2.2-4.2 [facility] Laboratory - CoagulationOrde red By: Eun Lloyd on 08-21-2022 PT Coag (PPP) [Time] 30.7 s 11.7-14.9 [facility] Serum or plasma albumin caleb urement (mass/volume)Ordered By: Eun Lloyd on 08-21-2022 Albumin [Mass/Vol] 3.6 g/dL 3.2-5.0 [facility] Serum or plasma cholesterol in HDL measurement (mass/volume)Ordered By: Eun Lloyd on 08-21-2022 Cholesterol in HDL [Mass/Vol] 80 mg/dL >40 [facility] Comment on above: The drugs N-Acetylcy steine and Metamizole may falsely depress this assay. Reference Range HDL <40 mg/dL Low HDL Cholesterol HDL >or= 60 mg/dL High HDL Cholesterol Serum or plasma cholesterol in VLDL measurement (mass/volume)Ordered By: Eun Lloyd on 08-21-2022 Cholesterol in VLDL [Mass/Vol] 34 mg/dL 5-40 [facility] Serum or plasma low density lipoprotein (LDL) cholesterol measurement (mass/volume)Ordered By: Eun Lloyd on 08-21-2022 Cholesterol in LDL [Mass/Vol] 66 mg/dL 0-130 [facility] Thin prep Papanicolaou smear with manual screeningOrdered By: Eun Lloyd on 08-21-2022 Thin prep Papanicolaou smear with manual screening 30 U/L 15-37 [facility] Laboratory - CoagulationOrde red By: Dr. Babin on 07-15-2022 INR Coag (Bld) [Relative time] 3.3 {INR} [facility] Comment on above: Critical Value > 4.0 Whole blood prothrombin time Ordered By: Dr. Babin on 07-15-2022 PT Coag (Bld) [Time] 37.8 s 11.7-14.9 [facility] Basophil percentageOrdered B y: Eun Lloyd on 07-10-2022 Chloride [Moles/Vol] 106 mmol/L 98-107 [facility] Glucose [Mass/Vol] 94 mg/dL 74-106 [facility] Potassium [Moles/Vol] 4.6 mmol/L 3.5-5.1 [facility] Sodium [Moles/Vol] 139 mmol/L 136-145 [facility] WBC (Bld) [#/Vol] 6.4 10*3/uL 4.4-11.0 [facility] Blood erythrocytes count (nu mber/volume)Ordered By: Eun Lloyd on 07-10-2022 RBC (Bld) [#/Vol] 3.90 10*6/uL 4.2-5.4 [facility] Blood hemoglobin measurement (mass/volume)Ordered By: Eun Lloyd on 07-10-2022 Hemoglobin (Bld) [Mass/Vol] 13.5 g/dL 12.0-15.0 [facility] Blood platelet mean volumeOr dered By: Eun Lloyd on 07-10-2022 Platelet mean volume (Bld) [Entitic vol] 8.4 fL 6.2-12.0 [facility] Determination of erythrocyte mean corpuscular volume (MCV)Ordered By: Eun Lloyd on 07-10-2022 MCV (RBC) [Entitic vol] 106.2 fL 81-99 [facility] Hematocrit Auto (Bld) [Volum e fraction]Ordered By: Eun Lloyd on 07-10-2022 Hematocrit (Bld) [Volume fraction] 41.4 % 37-47 [facility] INR in Blood by Coagulation assayOrdered By: Eun Lloyd on 07-10-2022 INR Coag (Bld) [Relative time] 3.3 {INR} [facility] Laboratory - Chemistry and C hemistry - challengeOrdered By: Eun Lloyd on 07-10-2022 CO2 [Moles/Vol] 30.0 mmol/L 21.0-32.0 [facility] Magnesium [Mass/Vol] 2.6 mg/dL 1.6-2.6 [facility] Urea nitrogen/Creatinine [Mass ratio] 14.7 mg/mg 10-20 [facility] - CoagulationOrde red By: Eun Lloyd on 07-10-2022 PT Coag (PPP) [Time] 33.1 s 11.7-14.9 [facility] - Hematology and Cell countsOrdered By: Eun Lloyd on 07-10-2022 Erythrocyte distribution width (RBC) [Entitic vol] 56.5 fL 35.1-43.9 [facility] Erythrocyte distribution width (RBC) [Ratio] 14.4 % 11.6-14.6 [facility] MCH (RBC) [Entitic mass] 34.6 pg 27.0-32.0 [facility] MCHC Auto (RBC) [Mass/Vol]Or dered By: Eun Lloyd on 07-10-2022 MCHC (RBC) [Mass/Vol] 32.6 g/dL 32-36 [facility] No Panel InformationOrdered By: Eun Lloyd on 07-10-2022 Estimated GFR (MDRD) Amer 66 mL/min >60 [facility] Comment on above: GFR Calc Estimated GFR (MDRD) Non-Af Amer 55 mL/min >60 [facility] Comment on above: Non- GFR Calc Thyroid Stimulating Hormone (TSH) 3.38 uIU/mL 0.358-3.74 [facility] Platelets bldOrdered By: Osvaldo Lloyd on 07-10-2022 Platelets (Bld) [#/Vol] 237 10*3/uL 150-450 [facility] Serum or plasma calcium caleb urement (mass/volume)Ordered By: Eun Lloyd on 07-10-2022 Calcium [Mass/Vol] 9.1 mg/dL 8.5-10.1 [facility] Serum or plasma creatinine m easurement (mass/volume)Ordered By: Eun Lloyd on 07-10-2022 Creatinine [Mass/Vol] 1.02 mg/dL 0.55-1.02 [facility] Comment on above: The validity of the calculated GFR & GFRAA in patients over 70 years has not been determined. Clinical correlation is essential. Serum or plasma urea nitroge n measurement (mass/volume)Ordered By: Eun Lloyd on 07-10-2022 Urea nitrogen [Mass/Vol] 15 mg/dL 7-18 [facility] Thin prep Papanicolaou smear with manual screeningOrdered By: Eun Lloyd on 07-10-2022 Thin prep Papanicolaou smear with manual screening 3 5-15 [facility] Absolute lymphocyte countOrd ered By: Britany Crandall on 06-13-2022 Lymphocytes Auto (Unsp spec) [#/Vol] 0.95 10*3/uL 0.83-4.51 [facility] Basophil percentageOrdered B y: Britany Crandall on 06-13-2022 Basophils/100 WBC (Bld) 1.1 % 0-1 [facility] Chloride [Moles/Vol] 105 mmol/L 98-107 [facility] Eosinophils/100 WBC (Bld) 9.0 % 0-5 [facility] Glucose [Mass/Vol] 66 mg/dL 74-106 [facility] Neutrophils (Bld) [#/Vol] 3.9 10*3/uL 2.0-7.7 [facility] Neutrophils/100 WBC (Bld) 61.8 % 47-70 [facility] Potassium [Moles/Vol] 4.8 mmol/L 3.5-5.1 [facility] Sodium [Moles/Vol] 140 mmol/L 136-145 [facility] WBC (Bld) [#/Vol] 6.4 10*3/uL 4.4-11.0 [facility] Blood erythrocytes count (nu mber/volume)Ordered By: Britany Crandall on 06-13-2022 RBC (Bld) [#/Vol] 3.68 10*6/uL 4.2-5.4 [facility] Blood hemoglobin measurement (mass/volume)Ordered By: Britany Crandall on 06-13-2022 Hemoglobin (Bld) [Mass/Vol] 12.3 g/dL 12.0-15.0 [facility] Blood lymphocytes/100 leukoc ytesOrdered By: Britany Crandall on 06-13-2022 Lymphocytes/100 WBC (Bld) 15.0 % 19-41 [facility] Blood monocytes/100 leukocyt esOrdered By: Britany Crandall on 06-13-2022 Monocytes/100 WBC (Bld) 12.6 % 0-10 [facility] Blood platelet mean volumeOr dered By: Britany Crandall on 06-13-2022 Platelet mean volume (Bld) [Entitic vol] 9.1 fL 6.2-12.0 [facility] Determination of erythrocyte mean corpuscular volume (MCV)Ordered By: Britany Crandall on 06-13-2022 MCV (RBC) [Entitic vol] 106.3 fL 81-99 [facility] Hematocrit Auto (Bld) [Volum e fraction]Ordered By: Britany Crandall on 06-13-2022 Hematocrit (Bld) [Volume fraction] 39.1 % 37-47 [facility] INR in Blood by Coagulation assayOrdered By: Dr. Babin on 06-13-2022 INR Coag (Bld) [Relative time] 2.8 {INR} [facility] Laboratory - Chemistry and C hemistry - challengeOrdered By: Britany Crandall on 06-13-2022 CO2 [Moles/Vol] 27.0 mmol/L 21.0-32.0 [facility] Magnesium [Mass/Vol] 2.4 mg/dL 1.6-2.6 [facility] Urea nitrogen/Creatinine [Mass ratio] 16.7 mg/mg 10-20 [facility] Laboratory - CoagulationOrde red By: Dr. Babin on 06-13-2022 PT Coag (PPP) [Time] 29.5 s 11.7-14.9 [facility] - Hematology and Cell countsOrdered By: Britany Crandall on 06-13-2022 Erythrocyte distribution width (RBC) [Entitic vol] 56.1 fL 35.1-43.9 [facility] Erythrocyte distribution width (RBC) [Ratio] 14.3 % 11.6-14.6 [facility] Immature granulocytes/100 WBC (Bld) 0.500 % 0.0-0.9 [facility] Comment on above: IG% - Immature Granu locytes (promyelocytes, myelocytes and metamyelocytes) > 1% indicates that a LEFT SHIFT is Present. MCH (RBC) [Entitic mass] 33.4 pg 27.0-32.0 [facility] Nucleated RBC/100 WBC (Bld) [Ratio] 0 % 0-5 [facility] MCHC Auto (RBC) [Mass/Vol]Or dered By: Britany Crandall on 06-13-2022 MCHC (RBC) [Mass/Vol] 31.5 g/dL 32-36 [facility] No Panel InformationOrdered By: Britany Crandall on 06-13-2022 Estimated GFR (MDRD) Amer 66 mL/min >60 [facility] Comment on above: GFR Calc Estimated GFR (MDRD) Non-Af Amer 55 mL/min >60 [facility] Comment on above: Non- GFR Calc Platelets bldOrdered By: Kristine Crandall on 06-13-2022 Platelets (Bld) [#/Vol] 232 10*3/uL 150-450 [facility] Serum or plasma calcium caleb urement (mass/volume)Ordered By: Britany Crandall on 06-13-2022 Calcium [Mass/Vol] 9.1 mg/dL 8.5-10.1 [facility] Serum or plasma creatinine m easurement (mass/volume)Ordered By: Britany Crandall on 06-13-2022 Creatinine [Mass/Vol] 1.02 mg/dL 0.55-1.02 [facility] Comment on above: The validity of the calculated GFR & GFRAA in patients over 70 years has not been determined. Clinical correlation is essential. Serum or plasma urea nitroge n measurement (mass/volume)Ordered By: Britany Crandall on 06-13-2022 Urea nitrogen [Mass/Vol] 17 mg/dL 7-18 [facility] Thin prep Papanicolaou smear with manual screeningOrdered By: Britany Crandall on 06-13-2022 Thin prep Papanicolaou smear with manual screening 8 5-15 [facility] INR in Blood by Coagulation assayOrdered By: Dr. Fish on 05-27-2022 INR Coag (Bld) [Relative time] 2.9 {INR} [facility] Laboratory - CoagulationOrde red By: Dr. Fish on 05-27-2022 PT Coag (PPP) [Time] 29.7 s 11.7-14.9 [facility] No Panel InformationOrdered By: Dr. Fish on 05-27-2022 Thyroid Stimulating Hormone (TSH) 0.61 uIU/mL 0.358-3.74 [facility] INR in Blood by Coagulation assayon 04-14-2022 INR Coag (Bld) [Relative time] 2.6 {INR} [facility] Work Phone: Laboratory - Coagulationon 0 04-14-2022 PT Coag (PPP) [Time] 27.8 s 11.7-14.9 [facility] Work Phone: No Panel Informationon 04-10 Thyroid Stimulating Hormone (TSH) 10.60 uIU/mL 0.358-3.74 [facility] Work Phone: INR in Blood by Coagulation assayon 04-01-2022 INR Coag (Bld) [Relative time] 2.5 {INR} [facility] Work Phone: Laboratory - Coagulationon 0 04-01-2022 PT Coag (PPP) [Time] 27.0 s 11.7-14.9 [facility] Work Phone: Absolute lymphocyte counton 02-07-2022 Lymphocytes Auto (Unsp spec) [#/Vol] 1.20 10*3/uL 0.83-4.51 [facility] Work Phone: Basophil percentageon 2021 Basophils/100 WBC (Bld) 1.1 % 0-1 [facility] Work Phone: Chloride [Moles/Vol] 103 mmol/L 98-107 [facility] Work Phone: [phone] Eosinophils/100 WBC (Bld) 5.3 % 0-5 [facility] Work Phone: Glucose [Mass/Vol] 92 mg/dL 74-106 [facility] Work Phone: [phone] Neutrophils (Bld) [#/Vol] 3.0 10*3/uL 2.0-7.7 [facility] Work Phone: [phone] Neutrophils/100 WBC (Bld) 56.7 % 47-70 [facility] Work Phone: Potassium [Moles/Vol] 5.0 mmol/L 3.5-5.1 [facility] Work Phone: Sodium [Moles/Vol] 139 mmol/L 136-145 [facility] Work Phone: WBC (Bld) [#/Vol] 5.3 10*3/uL 4.4-11.0 [facility] Work Phone: Blood erythrocytes count (nu mber/volume)on 02-07-2022 RBC (Bld) [#/Vol] 4.11 10*6/uL 4.2-5.4 [place] [facility] Work Phone: Blood hemoglobin measurement (mass/volume)on 02-07-2022 Hemoglobin (Bld) [Mass/Vol] 13.7 g/dL 12.0-15.0 [facility] Work Phone: Blood lymphocytes/100 leukoc yteson 02-07-2022 Lymphocytes/100 WBC (Bld) 22.8 % 19-41 [facility] Work Phone: Blood monocytes/100 leukocyt eson 02-07-2022 Monocytes/100 WBC (Bld) 13.7 % 0-10 [facility] Work Phone: Blood platelet mean volumeon 02-07-2022 Platelet mean volume (Bld) [Entitic vol] 8.9 fL 6.2-12.0 [facility] Work Phone: Determination of erythrocyte mean corpuscular volume (MCV)on 02-07-2022 MCV (RBC) [Entitic vol] 104.4 fL 81-99 [facility] Work Phone: Hematocrit Auto (Bld) [Volum e fraction]on 02-07-2022 Hematocrit (Bld) [Volume fraction] 42.9 % 37-47 [facility] Work Phone: INR in Blood by Coagulation assayon 02-07-2022 INR Coag (Bld) [Relative time] 2.3 {INR} [facility] Work Phone: Laboratory - Chemistry and C hemistry - challengeon 02-07-2022 CO2 [Moles/Vol] 30.0 mmol/L 21.0-32.0 [facility] Work Phone: Urea nitrogen/Creatinine [Mass ratio] 21.1 mg/mg 10-20 [facility] Work Phone: Laboratory - Coagulationon 0 02-07-2022 PT Coag (PPP) [Time] 25.2 s 11.7-14.9 [facility] Work Phone: Laboratory - Hematology and Cell countson 02-07-2022 Erythrocyte distribution width (RBC) [Entitic vol] 59.8 fL 35.1-43.9 [facility] Work Phone: Erythrocyte distribution width (RBC) [Ratio] 15.6 % 11.6-14.6 [facility] Work Phone: Immature granulocytes/100 WBC (Bld) 0.400 % 0.0-0.9 [facility] Work Phone: Comment on above: IG% - Immature Granu locytes (promyelocytes, myelocytes and metamyelocytes) > 1% indicates that a LEFT SHIFT is Present. MCH (RBC) [Entitic mass] 33.3 pg 27.0-32.0 [facility] Work Phone: Nucleated RBC/100 WBC (Bld) [Ratio] 0 % 0-5 [facility] Work Phone: MCHC Auto (RBC) [Mass/Vol]on 02-07-2022 MCHC (RBC) [Mass/Vol] 31.9 g/dL 32-36 [facility] Work Phone: No Panel Informationon 02-07 Estimated GFR (MDRD) Amer 42 mL/min >60 [facility] Work Phone: Comment on above: GFR Calc Estimated GFR (MDRD) Non-Af Amer 35 mL/min >60 [facility] Work Phone: Comment on above: Non- GFR Calc Platelets bldon 02-07-2022 Platelets (Bld) [#/Vol] 217 10*3/uL 150-450 [facility] Work Phone: Serum or plasma calcium caleb urement (mass/volume)on 02-07-2022 Calcium [Mass/Vol] 9.1 mg/dL 8.5-10.1 [facility] Work Phone: Serum or plasma creatinine m easurement (mass/volume)on 02-07-2022 Creatinine [Mass/Vol] 1.52 mg/dL 0.55-1.02 [facility] Work Phone: Comment on above: The validity of the calculated GFR & GFRAA in patients over 70 years has not been determined. Clinical correlation is essential. Serum or plasma urea nitroge n measurement (mass/volume)on 02-07-2022 Urea nitrogen [Mass/Vol] 32 mg/dL 7-18 [facility] Work Phone: Thin prep Papanicolaou smear with manual screeningon 02-07-2022 Thin prep Papanicolaou smear with manual screening 6 5-15 [facility] Work Phone: INR in Blood by Coagulation assayon 01-16-2022 INR Coag (Bld) [Relative time] 3.5 {INR} [facility] Work Phone: Laboratory - Coagulationon 0 01-16-2022 PT Coag (PPP) [Time] 34.5 s 11.7-14.9 [facility] Work Phone: INR in Blood by Coagulation assayon 12-17-2021 INR Coag (Bld) [Relative time] 2.8 {INR} [facility] Work Phone: Laboratory - Coagulationon 0 12-17-2021 PT Coag (PPP) [Time] 29.3 s 11.7-14.9 [facility] Work Phone: INR in Blood by Coagulation assayon 12-03-2021 INR Coag (Bld) [Relative time] 2.7 {INR} [facility] Work Phone: Laboratory - Coagulationon 0 12-03-2021 PT Coag (PPP) [Time] 28.6 s 11.7-14.9 [facility] Work Phone: INR in Blood by Coagulation assayon 11-25-2021 INR Coag (Bld) [Relative time] 2.3 {INR} [facility] Work Phone: Laboratory - Coagulationon 0 11-25-2021 PT Coag (PPP) [Time] 24.8 s 11.7-14.9 [facility] Work Phone: INR in Blood by Coagulation assayon 11-18-2021 INR Coag (Bld) [Relative time] 2.0 {INR} [facility] Work Phone: Laboratory - Coagulationon 0 11-18-2021 PT Coag (PPP) [Time] 22.2 s 11.7-14.9 [facility] Work Phone: Basophil percentageon 2021 Bilirubin [Mass/Vol] 0.60 mg/dL 0.20-1.00 [facility] Work Phone: Comment on above: For patients on eltr ombopag therapy, use of Dimension [place] TBIL is not recommended. Cholesterol [Mass/Vol] 182 mg/dL <200 [facility] Work Phone: Comment on above: <200 mg/dL Desirable 200-240 mg/dL Borderline >240 mg/dL High Risk Protein [Mass/Vol] 7.5 g/dL 6.4-8.2 [facility] Work Phone: Triglyceride [Mass/Vol] 106 mg/dL [facility] Work Phone: Comment on above: The drugs N-Acetylcy steine and Metamizole may falsely depress this assay.Serum Triglycerides Reference Interval Normal <150 mg/dL Borderline high 150 - 199 mg/dL High 200 - 499 mg/dL Very High > or = 500 mg/dL Direct bilirubinon 2 Bilirubin.direct [Mass/Vol] 0.18 mg/dL 0.00-0.30 [facility] Work Phone: INR in Blood by Coagulation assayon 10-28-2021 INR Coag (Bld) [Relative time] 3.3 {INR} [facility] Work Phone: Laboratory - Chemistry and C hemistry - challengeon 10-28-2021 ALP [Catalytic activity/Vol] 92 U/L 45-117 [facility] Work Phone: ALT [Catalytic activity/Vol] 30 U/L 13-56 [facility] Work Phone: Globulin (S) [Mass/Vol] 3.9 g/dL 2.2-4.2 [facility] Work Phone: Laboratory - Coagulationon 0 10-28-2021 PT Coag (PPP) [Time] 32.5 s 11.7-14.9 [facility] Work Phone: Serum or plasma albumin caleb urement (mass/volume)on 10-28-2021 Albumin [Mass/Vol] 3.6 g/dL 3.2-5.0 [facility] Work Phone: Serum or plasma cholesterol in HDL measurement (mass/volume)on 10-28-2021 Cholesterol in HDL [Mass/Vol] 79 mg/dL [facility] Work Phone: Comment on above: The drugs N-Acetylcy steine and Metamizole may falsely depress this assay. Reference Range HDL <40 mg/dL Low HDL Cholesterol HDL >or= 60 mg/dL High HDL Cholesterol Serum or plasma cholesterol in VLDL measurement (mass/volume)on 10-28-2021 Cholesterol in VLDL [Mass/Vol] 21 mg/dL 5-40 [facility] Work Phone: Serum or plasma low density lipoprotein (LDL) cholesterol measurement (mass/volume)on 10-28-2021 Cholesterol in LDL [Mass/Vol] 82 mg/dL 0-130 [facility] Work Phone: Thin prep Papanicolaou smear with manual screeningon 10-28-2021 Thin prep Papanicolaou smear with manual screening 31 U/L 15-37 [facility] [facility] Work Phone: Basophil percentageon 2021 Basophil percentage >100 SEEN /hpf [facility] Work Phone: Bilirubin Test strip Ql (U)o n 10-08-2021 Bilirubin Ql (U) Negative Negative [facility] Work Phone: Culture, urineon 10-08-2021 Bacteria identified Cx Nom (U) Presumptive E. coli [facility] Work Phone: INR in Blood by Coagulation assayon 10-08-2021 INR Coag (Bld) [Relative time] 3.3 {INR} [facility] Work Phone: Ketones Test strip Ql (U)on 10-08-2021 Ketones Ql (U) 5 mg/dl Negative [facility] Work Phone: Laboratory - Coagulationon 0 10-08-2021 PT Coag (PPP) [Time] 32.8 s 11.7-14.9 [facility] Work Phone: Mucus LM Ql (Urine sed)on Mucus Ql (Urine sed) 0 SEEN /hpf [facility] Work Phone: Nitrite Test strip Ql (U)on 10-08-2021 Nitrite Ql (U) Negative Negative [facility] Work Phone: Protein Test strip Ql (U)on 10-08-2021 Protein Ql (U) 30 mg/dl Negative [facility] Work Phone: Squamous epithelial cells de tection in urine sediment by light microscopyon 10-08-2021 Epithelial cells.squamous LM Ql (Urine sed) 0 SEEN /hpf [facility] Work Phone: Urine blood detectionon RBC Ql (U) 25 /ul Negative [facility] Work Phone: RBC Ql (U) 0 SEEN /hpf [facility] Work Phone: Urine clarityon 10-08-2021 Clarity (U) Cloudy Clear [facility] Work Phone: Urine color determinationon 10-08-2021 Color (U) Yellow Yellow [facility] Work Phone: Urine glucose detectionon Glucose Ql (U) Normal mg/dl Normal [facility] Work Phone: Urine leukocyte esterase det ection by dipstickon 10-08-2021 Leukocyte esterase Test strip Ql (U) 500 /ul Negative [facility] Work Phone: Urine pHon 10-08-2021 pH (U) 7.0 [pH] [facility] Work Phone: Urine sediment bacteria coun t by microscopy (number/high power field)on 10-08-2021 Bacteria LM.HPF (Urine sed) [#/Area] 4 /[HPF] None Seen [facility] Work Phone: Urine specific gravity measu rementon 10-08-2021 Specific gravity (U) [Rel density] 1.010 [facility] Work Phone: Urobilinogen Auto test strip Ql (U)on 10-08-2021 Urobilinogen Ql (U) 1 mg/dl Normal [facility] Work Phone: INR in Blood by Coagulation assayon 09-26-2021 INR Coag (Bld) [Relative time] 3.7 {INR} [facility] Work Phone: Laboratory - Coagulationon 0 09-26-2021 PT Coag (PPP) [Time] 35.6 s 11.7-14.9 [facility] Work Phone: Whole blood prothrombin time on 09-26-2021 PT Coag (Bld) [Time] 50.6 s 11.9-14.4 [facility] Work Phone: No Panel Informationon 09-19 SARS-CoV-2 Antigen (Rapid) [facility] Work Phone: Absolute lymphocyte counton 09-18-2021 Lymphocytes Auto (Unsp spec) [#/Vol] 0.52 10*3/uL 0.83-4.51 [facility] Work Phone: Basophil percentageon 2021 Basophils/100 WBC (Bld) 0.8 % 0-1 [facility] Work Phone: Chloride [Moles/Vol] 103 mmol/L 98-107 [facility]: Eosinophils/100 WBC (Bld) 7.7 % 0-5 [facility] Work Phone: Glucose [Mass/Vol] 85 mg/dL 74-106 [facility] Work Phone: Neutrophils (Bld) [#/Vol] 3.2 10*3/uL 2.0-7.7 [facility] Work Phone: Neutrophils/100 WBC (Bld) 65.2 % 47-70 [facility] Work Phone: Potassium [Moles/Vol] 3.7 mmol/L 3.5-5.1 [facility] Work Phone: Sodium [Moles/Vol] 136 mmol/L 136-145 [facility] Work Phone: [phone] WBC (Bld) [#/Vol] 5.0 10*3/uL 4.4-11.0 [facility] Work Phone: Blood erythrocytes count (nu mber/volume)on 09-18-2021 RBC (Bld) [#/Vol] 2.93 10*6/uL 4.2-5.4 [facility] Work Phone: Blood hemoglobin measurement (mass/volume)on 09-18-2021 Hemoglobin (Bld) [Mass/Vol] 9.9 g/dL 12.0-15.0 [facility] Work Phone: Blood lymphocytes/100 leukoc yteson 09-18-2021 Lymphocytes/100 WBC (Bld) 10.5 % 19-41 [facility] Work Phone: Blood manual differential co mment interpretation (narrative result)on 09-18-2021 Manual differential comment Tomi (Bld) [Interp] SCANNED [facility] Work Phone: Comment on above: LYMPHOPENIA NOTED Blood monocytes/100 leukocyt eson 09-18-2021 Monocytes/100 WBC (Bld) 15.2 % 0-10 [facility] Work Phone: Blood platelet mean volumeon 09-18-2021 Platelet mean volume (Bld) [Entitic vol] 8.3 fL 6.2-12.0 [facility] Work Phone: Determination of erythrocyte mean corpuscular volume (MCV)on 09-18-2021 MCV (RBC) [Entitic vol] 102.0 fL 81-99 [facility] Work Phone: Hematocrit Auto (Bld) [Volum e fraction]on 09-18-2021 Hematocrit (Bld) [Volume fraction] 29.9 % 37-47 [facility] Work Phone: Laboratory - Chemistry and C hemistry - challengeon 09-18-2021 CO2 [Moles/Vol] 27.0 mmol/L 21.0-32.0 [facility] Work Phone: Urea nitrogen/Creatinine [Mass ratio] 17.2 mg/mg 10-20 [facility] Work Phone: Laboratory - Hematology and Cell countson 09-18-2021 Anisocytosis Ql (Bld) 1+ [facility]: Erythrocyte distribution width (RBC) [Entitic vol] 68.2 fL 35.1-43.9 [facility] Work Phone: Erythrocyte distribution width (RBC) [Ratio] 17.9 % 11.6-14.6 [facility] Work Phone: Immature granulocytes/100 WBC (Bld) 0.600 % 0.0-0.9 [facility] Work Phone: Comment on above: IG% - Immature Granu locytes (promyelocytes, myelocytes and metamyelocytes) > 1% indicates that a LEFT SHIFT is Present. MCH (RBC) [Entitic mass] 33.8 pg 27.0-32.0 [facility] Work Phone: Nucleated RBC/100 WBC (Bld) [Ratio] 0 % 0-5 [facility] Work Phone: MCHC Auto (RBC) [Mass/Vol]on 09-18-2021 MCHC (RBC) [Mass/Vol] 33.1 g/dL 32-36 [facility] Work Phone: Macrocytes detectionon 09-18 Macrocytes Ql (Bld) 1+ [facility] Work Phone: No Panel Informationon 09-18 Estimated Creatinine Clearance Calc 44.61 ml/min [facility] Work Phone: Estimated GFR (MDRD) Amer 74 mL/min >60 [facility] Work Phone: Comment on above: GFR Calc Estimated GFR (MDRD) Non-Af Amer 61 mL/min >60 [facility] Work Phone: Comment on above: Non- GFR Calc Platelets bldon 09-18-2021 Platelets (Bld) [#/Vol] 297 10*3/uL 150-450 [facility] Work Phone: Serum or plasma calcium caleb urement (mass/volume)on 09-18-2021 Calcium [Mass/Vol] 7.8 mg/dL 8.5-10.1 [facility] Work Phone: Serum or plasma creatinine m easurement (mass/volume)on 09-18-2021 Creatinine [Mass/Vol] 0.93 mg/dL 0.55-1.02 [facility] Work Phone: Comment on above: The validity of the calculated GFR & GFRAA in patients over 70 years has not been determined. Clinical correlation is essential. Serum or plasma urea nitroge n measurement (mass/volume)on 09-18-2021 Urea nitrogen [Mass/Vol] 16 mg/dL 7-18 [facility] Work Phone: Thin prep Papanicolaou smear with manual screeningon 09-18-2021 Thin prep Papanicolaou smear with manual screening 6 5-15 [facility] Work Phone: INR in Blood by Coagulation assayon 02-15-2022 INR Coag (Bld) [Relative time] 2.7 {INR} [facility] Work Phone: Laboratory - Coagulationon 0 09-17-2021 PT Coag (PPP) [Time] 28.2 s 11.7-14.9 [facility] Work Phone: Basophil percentageon 2021 Chloride [Moles/Vol] 103 mmol/L 98-107 [facility] Work Phone: Glucose [Mass/Vol] 128 mg/dL 74-106 [facility] Work Phone: Comment on above: Fasting Glucose resu lt greater than or equal to 126 mg/dL suggests DIABETES MELLITUS per A.D.A. criteria. Potassium [Moles/Vol] 4.0 mmol/L 3.5-5.1 [facility] Work Phone: Sodium [Moles/Vol] 139 mmol/L 136-145 [facility] Work Phone: WBC (Bld) [#/Vol] 5.8 10*3/uL 4.4-11.0 [facility] Work Phone: Blood erythrocytes count (nu mber/volume)on 08-28-2021 RBC (Bld) [#/Vol] 4.19 10*6/uL 4.2-5.4 [facility] Work Phone: Blood hemoglobin measurement (mass/volume)on 08-28-2021 Hemoglobin (Bld) [Mass/Vol] 13.8 g/dL 12.0-15.0 [facility] Work Phone: Blood platelet mean volumeon 08-28-2021 Platelet mean volume (Bld) [Entitic vol] 8.6 fL 6.2-12.0 [facility] Work Phone: Determination of erythrocyte mean corpuscular volume (MCV)on 08-28-2021 MCV (RBC) [Entitic vol] 101.7 fL 81-99 [facility] Work Phone: Hematocrit Auto (Bld) [Volum e fraction]on 08-28-2021 Hematocrit (Bld) [Volume fraction] 42.6 % 37-47 [facility] Work Phone: INR in Blood by Coagulation assayon 08-28-2021 INR Coag (Bld) [Relative time] 2.5 {INR} [facility] Work Phone: Laboratory - Chemistry and C hemistry - challengeon 08-28-2021 CO2 [Moles/Vol] 27.0 mmol/L 21.0-32.0 [facility] Work Phone: Urea nitrogen/Creatinine [Mass ratio] 16.3 mg/mg 10-20 [facility] Work Phone: Laboratory - Coagulationon 0 08-28-2021 PT Coag (PPP) [Time] 26.2 s 11.7-14.9 [facility] Work Phone: Laboratory - Hematology and Cell countson 08-28-2021 Erythrocyte distribution width (RBC) [Entitic vol] 57.9 fL 35.1-43.9 [facility] Work Phone: Erythrocyte distribution width (RBC) [Ratio] 15.3 % 11.6-14.6 [facility] Work Phone: MCH (RBC) [Entitic mass] 32.9 pg 27.0-32.0 [facility] Work Phone: MCHC Auto (RBC) [Mass/Vol]on 08-28-2021 MCHC (RBC) [Mass/Vol] 32.4 g/dL 32-36 [facility] Work Phone: No Panel Informationon 08-28 Estimated Creatinine Clearance Calc 33.73 ml/min [facility] Work Phone: Estimated GFR (MDRD) Amer 53 mL/min >60 [facility] Work Phone: Comment on above: GFR Calc Estimated GFR (MDRD) Non-Af Amer 44 mL/min >60 [facility] Work Phone: Comment on above: Non- GFR Calc Platelets bldon 08-28-2021 Platelets (Bld) [#/Vol] 203 10*3/uL 150-450 [facility] Work Phone: Serum or plasma calcium caleb urement (mass/volume)on 08-28-2021 Calcium [Mass/Vol] 8.9 mg/dL 8.5-10.1 [facility] Work Phone: Serum or plasma creatinine m easurement (mass/volume)on 08-28-2021 Creatinine [Mass/Vol] 1.23 mg/dL 0.55-1.02 [facility] Work Phone: Comment on above: The validity of the calculated GFR & GFRAA in patients over 70 years has not been determined. Clinical correlation is essential. Serum or plasma urea nitroge n measurement (mass/volume)on 08-28-2021 Urea nitrogen [Mass/Vol] 20 mg/dL 7-18 [facility] Work Phone: Thin prep Papanicolaou smear with manual screeningon 08-28-2021 Thin prep Papanicolaou smear with manual screening 9 5-15 [facility] Work Phone: INR in Blood by Coagulation assayon 08-05-2021 INR Coag (Bld) [Relative time] 3.0 {INR} [facility] Work Phone: Laboratory - Coagulationon 0 08-05-2021 PT Coag (PPP) [Time] 30.5 s 11.7-14.9 [facility] Work Phone: Vital Signs Date Time Vital Sign Value Performing Clinician Faci lity 04-09-2025 11:16-0400 Body height 172.[address] Agnieszka Fish MD Work Phone: [facility] 04-09-2025 11:16-0400 Body mass index (BMI) [Ratio] 23.4 kg/m2 Dr. Agnieszka Fish MD Work Phone: [facility] 04-09-2025 11:16-0400 Body temperature 98.6 [degF] Dr. Agnieszka Fish MD Work Phone: [facility] 04-09-2025 11:16-0400 Body weight 69.[address] Agnieszka Fish MD Work Phone: [facility] 04-09-2025 11:16-0400 Diastolic blood pressure 66 mm[Hg] Dr. Agnieszka Fish MD Work Phone: [facility] 04-09-2025 11:16-0400 Heart rate 70 /min Dr. Agnieszka Fish MD Work Phone: [facility] 04-09-2025 11:16-0400 Respiratory rate 15 /min Dr. Agnieszka Fish MD Work Phone: [facility] 04-09-2025 11:16-0400 SaO2% (BldA) [Mass fraction] 98 % Dr. Agnieszka Fish MD Work Phone: [facility] 04-09-2025 11:16-0400 Systolic blood pressure 102 mm[Hg] Dr. Agnieszka Fish MD Work Phone: [facility] 03-01-2025 12:14-0400 Body mass index (BMI) [Ratio] 22.5 kg/m2 Dr. Agnieszka Fish MD Work Phone: [facility] 03-01-2025 12:14-0400 Body temperature 96.4 [degF] Dr. Agnieszka Fish MD Work Phone: [facility] 03-01-2025 12:14-0400 Body weight 67.[address] Agnieszka Fish MD Work Phone: [facility] 03-01-2025 12:14-0400 Diastolic blood pressure 82 mm[Hg] Dr. Agnieszka Fish MD Work Phone: [facility] 03-01-2025 12:14-0400 Heart rate 87 /min Dr. Agnieszka Fish MD Work Phone: [facility] 03-01-2025 12:14-0400 Respiratory rate 16 /min Dr. Agnieszka Fish MD Work Phone: [facility] 03-01-2025 12:14-0400 SaO2% (BldA) [Mass fraction] 97 % Dr. Agnieszka Fish MD Work Phone: [facility] 03-01-2025 12:14-0400 Systolic blood pressure 124 mm[Hg] Dr. Agnieszka Fish MD Work Phone: [facility] 03-01-2025 11:07-0400 Body height 172.[address] Agnieszka Fish MD Work Phone: [facility] 03-01-2025 11:07-0400 Body mass index (BMI) [Ratio] 22.8 kg/m2 Dr. Agnieszka Fish MD Work Phone: [facility] 03-01-2025 11:07-0400 Body temperature 97 [degF] Dr. Agnieszka Fish MD Work Phone: [facility] 03-01-2025 11:07-0400 Body weight 68.[address] Agnieszka Fish MD Work Phone: [facility] 03-01-2025 11:07-0400 Diastolic blood pressure 84 mm[Hg] Dr. Agnieszka Fish MD Work Phone: [facility] 03-01-2025 11:07-0400 Heart rate 69 /min Dr. Agnieszka Fish MD Work Phone: [facility] 03-01-2025 11:07-0400 Respiratory rate 16 /min Dr. gAnieszka Fish MD Work Phone: [facility] 03-01-2025 11:07-0400 SaO2% (BldA) [Mass fraction] 95 % Dr. Agnieszka Fish MD Work Phone: [facility] 03-01-2025 11:07-0400 Systolic blood pressure 118 mm[Hg] Dr. Agnieszka Fish MD Work Phone: [facility] 02-23-2025 11:23-0400 Body height 172.[address] Agnieszka Fish MD Work Phone: [facility] 02-23-2025 11:23-0400 Body mass index (BMI) [Ratio] 25.4 kg/m2 Dr. Agnieszka Fish MD Work Phone: [facility] 02-23-2025 11:23-0400 Body temperature 96.5 [degF] Dr. Agnieszka Fish MD Work Phone: [facility] 02-23-2025 11:23-0400 Body weight 75.[address] Agnieszka Fish MD Work Phone: [facility] 02-23-2025 11:23-0400 Diastolic blood pressure 74 mm[Hg] Dr. Agnieszka Fish MD Work Phone: [facility] 02-23-2025 11:23-0400 Heart rate 83 /min Dr. Agnieszka Fish MD Work Phone: [facility] 02-23-2025 11:23-0400 Respiratory rate 16 /min Dr. Agnieszka Fish MD Work Phone: [facility] 02-23-2025 11:23-0400 SaO2% (BldA) [Mass fraction] 95 % Dr. Agnieszka Fish MD Work Phone: [facility] 02-23-2025 11:23-0400 Systolic blood pressure 120 mm[Hg] Dr. Agnieszka Fish MD Work Phone: [facility] 02-22-2025 13:01-0400 Body height 172.[address] Agnieszka Fish MD Work Phone: [facility] 02-22-2025 13:01-0400 Body mass index (BMI) [Ratio] 25.2 kg/m2 Dr. Agnieszka Fish MD Work Phone: [facility] 02-22-2025 13:01-0400 Body weight 75.[address] Agnieszka Fish MD Work Phone: [facility] 02-22-2025 13:01-0400 Diastolic blood pressure 75 mm[Hg] Dr. Agnieszka Fish MD Work Phone: [facility] 02-22-2025 13:01-0400 Heart rate 71 /min Dr. Agnieszka Fish MD Work Phone: [facility] 02-22-2025 13:01-0400 Respiratory rate 16 /min Dr. Agnieszka Fish MD Work Phone: [facility] 02-22-2025 13:01-0400 Systolic blood pressure 116 mm[Hg] Dr. Agnieszka Fish MD Work Phone: [facility] 01-31-2025 00:10-0400 Body temperature 98 [degF] Dr. Agnieszka Fish MD Work Phone: [facility] 01-31-2025 00:10-0400 Diastolic blood pressure 74 mm[Hg] Dr. Agnieszka Fish MD Work Phone: [facility] 01-31-2025 00:10-0400 Heart rate 91 /min Dr. Agnieszka Fish MD Work Phone: [facility] 01-31-2025 00:10-0400 Respiratory rate 20 /min Dr. Agnieszka Fish MD Work Phone: [facility] 01-31-2025 00:10-0400 SaO2% (BldA) [Mass fraction] 95 % Dr. Agnieszka Fish MD Work Phone: [facility] 01-31-2025 00:10-0400 Systolic blood pressure 109 mm[Hg] Dr. Agnieszka Fish MD Work Phone: [facility] 01-30-2025 19:40-0400 Body mass index (BMI) [Ratio] 24.6 kg/m2 Dr. Agnieszka Fish MD Work Phone: [facility] 01-30-2025 19:40-0400 Body weight 73.[address] Agnieszka Fish MD Work Phone: [facility] 01-30-2025 19:20-0400 Body height 172.[address] Agnieszka Fish MD Work Phone: [facility] 01-05-2025 09:29-0400 Body height 172.[address] Agnieszka Fish MD Work Phone: [facility] 01-05-2025 09:29-0400 Body mass index (BMI) [Ratio] 22.6 kg/m2 Dr. Agnieszka Fish MD Work Phone: [facility] 01-05-2025 09:29-0400 Body weight 67.[address] Agnieszka Fish MD Work Phone: [facility] 01-05-2025 09:29-0400 Diastolic blood pressure 64 mm[Hg] Dr. Agnieszka Fish MD Work Phone: [facility] 01-05-2025 09:29-0400 Heart rate 56 /min Dr. Agnieszka Fish MD Work Phone: [facility] 01-05-2025 09:29-0400 Respiratory rate 18 /min Dr. Agnieszka Fish MD Work Phone: [facility] 01-05-2025 09:29-0400 Systolic blood pressure 105 mm[Hg] Dr. Agnieszka Fish MD Work Phone: [facility] 12-31-2024 20:50-0400 Body mass index (BMI) [Ratio] 24 kg/m2 Dr. Agnieszka Fish MD Work Phone: [facility] 12-01-2024 00:27-0400 Body mass index (BMI) [Ratio] 24 kg/m2 Dr. Agnieszka Fish MD Work Phone: [facility] 11-01-2024 00:13-0400 Body mass index (BMI) [Ratio] 24 kg/m2 Dr. Agnieszka Fish MD Work Phone: [facility] 10-26-2024 11:05-0400 Body height 172.[address] Agnieszka Fish MD Work Phone: [facility] 10-26-2024 08:39-0400 Body mass index (BMI) [Ratio] 22 kg/m2 Dr. Agnieszka Fish MD Work Phone: [facility] 10-26-2024 08:39-0400 Body weight 65.[address] Agnieszka Fish MD Work Phone: [facility] 10-26-2024 08:39-0400 Diastolic blood pressure 65 mm[Hg] Dr. Agnieszka Fish MD Work Phone: [facility] 10-26-2024 08:39-0400 Heart rate 62 /min Dr. Agnieszka Fish MD Work Phone: [facility] 10-26-2024 08:39-0400 Respiratory rate 18 /min Dr. Agnieszka Fish MD Work Phone: [facility] 10-26-2024 08:39-0400 SaO2% (BldA) [Mass fraction] 92 % Dr. Agnieszka Fish MD Work Phone: [facility] 10-26-2024 08:39-0400 Systolic blood pressure 108 mm[Hg] Dr. Agnieszka Fish MD Work Phone: [facility] 10-01-2024 00:39-0500 Body mass index (BMI) [Ratio] 24 kg/m2 Dr. Agnieszka Fish MD Work Phone: [facility] 09-03-2024 00:45-0500 Body mass index (BMI) [Ratio] 24 kg/m2 Dr. Agnieszka Fish MD Work Phone: [facility] 09-01-2024 14:13-0500 Body mass index (BMI) [Ratio] 22.2 kg/m2 Dr. Agnieszka Fish MD Work Phone: [facility] 09-01-2024 14:13-0500 Body temperature 96.2 [degF] Dr. Agnieszka Fish MD Work Phone: [facility] 09-01-2024 14:13-0500 Body weight 66.[address] Agnieszka Fish MD Work Phone: [facility] 09-01-2024 14:13-0500 Diastolic blood pressure 62 mm[Hg] Dr. Agnieszka Fish MD Work Phone: [facility] 09-01-2024 14:13-0500 Heart rate 82 /min Dr. Agnieszka Fish MD Work Phone: [facility] 09-01-2024 14:13-0500 Respiratory rate 16 /min Dr. Agnieszka Fish MD Work Phone: [facility] 09-01-2024 14:13-0500 SaO2% (BldA) [Mass fraction] 94 % Dr. Agnieszka Fish MD Work Phone: [facility] 09-01-2024 14:13-0500 Systolic blood pressure 102 mm[Hg] Dr. Agnieszka Fish MD Work Phone: [facility] 08-03-2024 00:20-0500 Body mass index (BMI) [Ratio] 24 kg/m2 Dr. Agnieszka Fish MD Work Phone: [facility] 07-03-2024 00:38-0500 Body mass index (BMI) [Ratio] 24 kg/m2 Dr. Agnieszka Fish MD Work Phone: [facility] 03-01-2024 15:19-0400 Body height 172.7 cm Reno Dukes MD Work Phone: [facility] 03-01-2024 15:19-0400 Body mass index (BMI) [Ratio] 21.93 kg/m2 Reno Dukes MD Work Phone: [facility] 03-01-2024 15:19-0400 Body weight 65.41 kg Reno Dukes MD Work Phone: [facility] 03-01-2024 15:19-0400 Diastolic blood pressure 85 mm[Hg] Reno Dukes MD Work Phone: [facility] 03-01-2024 15:19-0400 Heart rate 67 /min Reno Dukes MD Work Phone: [facility] 03-01-2024 15:19-0400 SaO2% (BldA) [Mass fraction] 97 % Reno Dukes MD Work Phone: [facility] 03-01-2024 15:19-0400 Systolic blood pressure 118 mm[Hg] Reno Dukes MD Work Phone: [facility] 12-24-2023 12:21-0400 Body height 172.7 cm Danny Edmond MD Work Phone: [facility] 12-24-2023 12:21-0400 Body mass index (BMI) [Ratio] 22.81 kg/m2 Danny Edmond MD Work Phone: [facility] 12-24-2023 12:21-0400 Body weight 68.04 kg Danny Edmond MD Work Phone: [facility] 12-24-2023 12:21-0400 Diastolic blood pressure 76 mm[Hg] Danny Edmond MD Work Phone: [facility] 12-24-2023 12:21-0400 Heart rate 89 /min Danny Edmond MD Work Phone: [facility] 12-24-2023 12:21-0400 Systolic blood pressure 131 mm[Hg] Danny Edmond MD Work Phone: [facility] 11-17-2023 12:47-0400 Body height 172.[address] Agnieszka Fish Work Phone: [facility] 11-17-2023 12:47-0400 Body weight 68.[address] Agnieszka Fish Work Phone: [facility] 11-17-2023 12:47-0400 Heart rate 90 /min Dr. Agnieszka Fish Work Phone: [facility] 11-17-2023 12:47-0400 SaO2% (BldA) [Mass fraction] 96 % Dr. Agnieszka Fish Work Phone: [facility] 10-31-2023 22:08-0400 Body mass index (BMI) [Ratio] 24 kg/m2 Dr. Agnieszka Fish Work Phone: [facility] 10-01-2023 22:27-0500 Body mass index (BMI) [Ratio] 24 kg/m2 Dr. Agnieszka Fish Work Phone: [facility] 09-02-2023 21:54-0500 Body mass index (BMI) [Ratio] 24 kg/m2 Dr. Agnieszka Fish Work Phone: [facility] 08-03-2023 00:26-0500 Body mass index (BMI) [Ratio] 24 kg/m2 Dr. Agnieszka Fish Work Phone: [facility] 07-21-2023 10:23-0500 Body height 172.[address] Agnieszka Fish Work Phone: [facility] 07-21-2023 10:15-0500 Body mass index (BMI) [Ratio] 23.1 kg/m2 Dr. Agnieszka Fish Work Phone: [facility] 07-21-2023 10:15-0500 Body weight 68.[address] Agnieszka Fish Work Phone: [facility] 07-21-2023 10:15-0500 Diastolic blood pressure 70 mm[Hg] Dr. Agnieszka Fish Work Phone: [facility] 07-21-2023 10:15-0500 Heart rate 120 /min Dr. Agnieszka Fish Work Phone: [facility] 07-21-2023 10:15-0500 Respiratory rate 18 /min Dr. Agnieszka Fish Work Phone: [facility] 07-21-2023 10:15-0500 SaO2% (BldA) [Mass fraction] 95 % Dr. Agnieszka Fish Work Phone: [facility] 07-21-2023 10:15-0500 Systolic blood pressure 120 mm[Hg] Dr. Agnieszka Fish Work Phone: [facility] 07-15-2023 14:10-0500 Body mass index (BMI) [Ratio] 23.2 kg/m2 Dr. Agnieszka Fish Work Phone: [facility] 07-15-2023 14:10-0500 Body temperature 97.1 [degF] Dr. Agnieszka Fish Work Phone: [facility] 07-15-2023 14:10-0500 Body weight 69.[address] Agnieszka Fish Work Phone: [facility] 07-15-2023 14:10-0500 Diastolic blood pressure 70 mm[Hg] Dr. Agnieszka Fish Work Phone: [facility] 07-15-2023 14:10-0500 Heart rate 114 /min Dr. Agnieszka Fish Work Phone: [facility] 07-15-2023 14:10-0500 Respiratory rate 16 /min Dr. Agnieszka Fish Work Phone: [facility] 07-15-2023 14:10-0500 SaO2% (BldA) [Mass fraction] 95 % Dr. Agnieszka Fish Work Phone: [facility] 07-15-2023 14:10-0500 Systolic blood pressure 118 mm[Hg] Dr. Agnieszka Fish Work Phone: [facility] 07-03-2023 03:25-0500 Body mass index (BMI) [Ratio] 24 kg/m2 Dr. Agnieszka Fish Work Phone: [facility] 06-02-2023 23:21-0400 Body mass index (BMI) [Ratio] 24 kg/m2 Dr. Agnieszka Fish Work Phone: [facility] 05-03-2023 01:57-0400 Body mass index (BMI) [Ratio] 24 kg/m2 [facility] 04-03-2023 00:37-0400 Body mass index (BMI) [Ratio] 24 kg/m2 Dr. Agnieszka Fish Work Phone: [facility] 03-03-2023 00:38-0400 Body mass index (BMI) [Ratio] 24 kg/m2 Dr. Agnieszka Fish Work Phone: [facility] 02-12-2023 10:25-0400 Body height 172.[address] Agnieszka Fish Work Phone: [facility] 01-31-2023 01:37-0400 Body mass index (BMI) [Ratio] 24 kg/m2 Dr. Agnieszka Fish Work Phone: [facility] 01-28-2023 10:04-0400 Body mass index (BMI) [Ratio] 22.8 kg/m2 Dr. Agnieszka Fish Work Phone: [facility] 01-28-2023 10:04-0400 Body weight 68.[address] Agnieszka Fish Work Phone: [facility] 01-28-2023 10:04-0400 Diastolic blood pressure 76 mm[Hg] Dr. Agnieszka Fish Work Phone: [facility] 01-28-2023 10:04-0400 Heart rate 80 /min Dr. Agnieszka Fish Work Phone: [facility] 01-28-2023 10:04-0400 Respiratory rate 18 /min Dr. Agnieszka Fish Work Phone: [facility] 01-28-2023 10:04-0400 SaO2% (BldA) [Mass fraction] 96 % Dr. Agnieskza Fish Work Phone: [facility] 01-28-2023 10:04-0400 Systolic blood pressure 121 mm[Hg] Dr. Agnieszka Fish Work Phone: [facility] 01-23-2023 10:26-0400 Body mass index (BMI) [Ratio] 22.8 kg/m2 Dr. Agnieszka Fish Work Phone: [facility] 01-23-2023 10:26-0400 Body temperature 97.8 [degF] Dr. Agnieszka Fish Work Phone: [facility] 01-23-2023 10:26-0400 Body weight 68.[address] Agnieszka Fish Work Phone: [facility] 01-23-2023 10:26-0400 Diastolic blood pressure 80 mm[Hg] Dr. Agnieszka Fish Work Phone: [facility] 01-23-2023 10:26-0400 Heart rate 100 /min Dr. Agnieszka Fish Work Phone: [facility] 01-23-2023 10:26-0400 Respiratory rate 16 /min Dr. Agnieszka Fish Work Phone: [facility] 01-23-2023 10:26-0400 SaO2% (BldA) [Mass fraction] 94 % Dr. Agnieszka Fish Work Phone: [facility] 01-23-2023 10:26-0400 Systolic blood pressure 124 mm[Hg] Dr. Agnieszka Fish Work Phone: [facility] 01-01-2023 15:04-0400 Body height 172.[address] Agnieszka Fish Work Phone: [facility] 01-01-2023 08:30-0400 Body mass index (BMI) [Ratio] 24 kg/m2 Dr. Agnieszka Fish Work Phone: [facility] 10-31-2022 21:48-0400 Body mass index (BMI) [Ratio] 24 kg/m2 Dr. Agnieszka Fish Work Phone: [facility] 10-15-2022 10:07-0400 Body height 172.[address] Agnieszka Fish Work Phone: [facility] 10-15-2022 10:07-0400 Body mass index (BMI) [Ratio] 23.1 kg/m2 Dr. Agnieszka Fish Work Phone: [facility] 10-15-2022 10:07-0400 Body weight 68.[address] Agnieszka Fish Work Phone: [facility] 10-15-2022 10:07-0400 Diastolic blood pressure 78 mm[Hg] Dr. Agnieszka Fish Work Phone: [facility] 10-15-2022 10:07-0400 Respiratory rate 18 /min Dr. Agnieszka Fish Work Phone: [facility] 10-15-2022 10:07-0400 Systolic blood pressure 115 mm[Hg] Dr. Agnieszka Fish Work Phone: [facility] 09-30-2022 19:57-0500 Body mass index (BMI) [Ratio] 24 kg/m2 Dr. Agnieszka Fish Work Phone: [facility] 09-18-2022 14:55-0500 Body height 172.[address] Agnieszka Fish Work Phone: [facility] 09-18-2022 14:55-0500 Body mass index (BMI) [Ratio] 22.8 kg/m2 Dr. Agnieszka Fish Work Phone: [facility] 09-18-2022 14:55-0500 Body temperature 97.6 [degF] Dr. Agnieszka Fish Work Phone: [facility] 09-18-2022 14:55-0500 Body weight 68.[address] Agnieszka Fish Work Phone: [facility] 09-18-2022 14:55-0500 Diastolic blood pressure 98 mm[Hg] Dr. Agnieszka Fish Work Phone: [facility] 09-18-2022 14:55-0500 Heart rate 108 /min Dr. Agnieszka Fish Work Phone: [facility] 09-18-2022 14:55-0500 Respiratory rate 16 /min Dr. Agnieszka Fish Work Phone: [facility] 09-18-2022 14:55-0500 SaO2% (BldA) [Mass fraction] 92 % Dr. Agnieszka Fish Work Phone: [facility] 09-18-2022 14:55-0500 Systolic blood pressure 148 mm[Hg] Dr. Agnieszka Fish Work Phone: [facility] 09-03-2022 08:06-0500 Body mass index (BMI) [Ratio] 24 kg/m2 Dr. Agnieszka Fish Work Phone: [facility] 07-24-2022 15:44-0500 Body temperature 96.9 [degF] Dr. Agnieszka Fish Work Phone: [facility] 07-24-2022 15:44-0500 Body weight 67.[address] Agnieszka Fish Work Phone: [facility] 07-24-2022 15:44-0500 Diastolic blood pressure 82 mm[Hg] Dr. Agnieszka Fish Work Phone: [facility] 07-24-2022 15:44-0500 Heart rate 90 /min Dr. Agnieszka Fish Work Phone: [facility] 07-24-2022 15:44-0500 Respiratory rate 18 /min Dr. Agnieszka Fish Work Phone: [facility] 07-24-2022 15:44-0500 SaO2% (BldA) [Mass fraction] 97 % Dr. Agnieszka Fish Work Phone: [facility] 07-24-2022 15:44-0500 Systolic blood pressure 112 mm[Hg] Dr. Agnieszka Fish Work Phone: [facility] 07-15-2022 11:12-0500 Body height 172.[address] Agnieszka Fish Work Phone: [facility] 07-15-2022 11:12-0500 Body weight 68.[address] Agnieszka Fish Work Phone: [facility] 07-14-2022 07:56-0500 Body mass index (BMI) [Ratio] 22.8 kg/m2 Dr. Agnieszka Fish Work Phone: [facility] 07-03-2022 00:38-0500 Body mass index (BMI) [Ratio] 24 kg/m2 Dr. Agnieszka Fish Work Phone: [facility] 06-13-2022 10:52-0500 Body height 172.[address] Agnieszka Fish Work Phone: [facility] Work Phone: 06-13-2022 10:52-0500 Body mass index (BMI) [Ratio] 23.2 kg/m2 Dr. Agnieszka Fish Work Phone: [facility] 06-13-2022 10:52-0500 Body temperature 96.8 [degF] Dr. Agnieszka Fish Work Phone: [facility] 06-13-2022 10:52-0500 Body weight 69.[address] Agnieszka Fish Work Phone: [facility] 06-13-2022 10:52-0500 Diastolic blood pressure 68 mm[Hg] Dr. Agnieszka Fish Work Phone: [facility] 06-13-2022 10:52-0500 Heart rate 125 /min Dr. Agnieszka Fish Work Phone: [facility] 06-13-2022 10:52-0500 Respiratory rate 16 /min Dr. Agnieszka Fish Work Phone: [facility] 06-13-2022 10:52-0500 SaO2% (BldA) [Mass fraction] 95 % Dr. Agnieszka Fish Work Phone: [facility] 06-13-2022 10:52-0500 Systolic blood pressure 108 mm[Hg] Dr. Agnieszka Fish Work Phone: [facility] 06-03-2022 09:31-0400 Body mass index (BMI) [Ratio] 24 kg/m2 Dr. Agnieszka Fish Work Phone: [facility] 05-02-2022 20:40-0400 Body mass index (BMI) [Ratio] 24 kg/m2 Dr. Agnieszka Fish Work Phone: [facility] 04-10-2022 10:07-0400 Body height 172.[address] Agnieszka Fish Work Phone: [facility] Work Phone: 04-10-2022 10:06-0400 Body mass index (BMI) [Ratio] 22.8 kg/m2 Dr. Agnieszka Fish Work Phone: [facility] Work Phone: 04-10-2022 10:06-0400 Body weight 68.[address] Agnieszka Fish Work Phone: [facility] Work Phone: 04-10-2022 10:06-0400 Diastolic blood pressure 70 mm[Hg] Dr. Agnieszka Fish Work Phone: [facility] Work Phone: 04-10-2022 10:06-0400 Heart rate 87 /min Dr. Agnieszka Fish Work Phone: [facility] Work Phone: 04-10-2022 10:06-0400 Respiratory rate 18 /min Dr. Agnieszka Fish Work Phone: [facility] Work Phone: 04-10-2022 10:06-0400 SaO2% (BldA) [Mass fraction] 98 % Dr. Agnieszka Fish Work Phone: [facility] Work Phone: 04-10-2022 10:06-0400 Systolic blood pressure 110 mm[Hg] Dr. Agnieszka Fish Work Phone: [facility] Work Phone: 04-02-2022 22:48-0400 Body mass index (BMI) [Ratio] 24 kg/m2 Dr. Agnieszka Fish Work Phone: [facility] Work Phone: 03-02-2022 02:11-0400 Body mass index (BMI) [Ratio] 24 kg/m2 Dr. Agnieszka Fish Work Phone: [facility] Work Phone: 02-07-2022 10:56-0400 Body height 172.[address] Agnieszka Fish Work Phone: [facility] Work Phone: 02-07-2022 10:56-0400 Body mass index (BMI) [Ratio] 22.8 kg/m2 Dr. Agnieszka Fish Work Phone: [facility] Work Phone: 02-07-2022 10:56-0400 Body temperature 96.4 [degF] Dr. Agnieszka Fish Work Phone: [facility] Work Phone: 02-07-2022 10:56-0400 Body weight 68.[address] Agnieszka Fish Work Phone: [facility] Work Phone: 02-07-2022 10:56-0400 Diastolic blood pressure 60 mm[Hg] Dr. Agnieszka Fish Work Phone: [facility] Work Phone: 02-07-2022 10:56-0400 Heart rate 50 /min Dr. Agnieszka Fish Work Phone: [facility] Work Phone: 02-07-2022 10:56-0400 Respiratory rate 16 /min Dr. Agnieszka Fish Work Phone: [facility] Work Phone: 02-07-2022 10:56-0400 SaO2% (BldA) [Mass fraction] 97 % Dr. Agnieszka Fish Work Phone: [facility] Work Phone: 02-07-2022 10:56-0400 Systolic blood pressure 104 mm[Hg] Dr. Agnieszka Fish Work Phone: [facility] Work Phone: 01-01-2022 00:08-0400 Body mass index (BMI) [Ratio] 24 kg/m2 Dr. Agnieszka Fish Work Phone: [facility] Work Phone: 11-01-2021 00:08-0400 Body mass index (BMI) [Ratio] 24 kg/m2 Dr. Agnieszka Fish Work Phone: [facility] Work Phone: 10-08-2021 09:59-0500 Body height 172.[address] Agnieszka Fish Work Phone: [facility] Work Phone: 10-08-2021 09:59-0500 Body temperature 97.3 [degF] Dr. Agnieszka Fish Work Phone: [facility] Work Phone: 10-08-2021 09:59-0500 Diastolic blood pressure 74 mm[Hg] Dr. Agnieszka Fish Work Phone: [facility] Work Phone: 10-08-2021 09:59-0500 Heart rate 85 /min Dr. Agnieszka Fish Work Phone: [facility] Work Phone: 10-08-2021 09:59-0500 Respiratory rate 18 /min Dr. Agnieszka Fish Work Phone: [facility] Work Phone: 10-08-2021 09:59-0500 SaO2% (BldA) [Mass fraction] 98 % Dr. Agnieszka Fish Work Phone: [facility] Work Phone: 10-08-2021 09:59-0500 Systolic blood pressure 120 mm[Hg] Dr. Agnieszka Fish Work Phone: [facility] Work Phone: 09-20-2021 10:18-0500 Body temperature 97.3 [degF] Dr. Agnieszka Fish Work Phone: [facility] Work Phone: 09-20-2021 10:18-0500 Diastolic blood pressure 67 mm[Hg] Dr. Agnieszka Fish Work Phone: [facility] Work Phone: 09-20-2021 10:18-0500 Heart rate 91 /min Dr. Agnieszka Fish Work Phone: [facility] Work Phone: 09-20-2021 10:18-0500 Respiratory rate 18 /min Dr. Agnieszka Fish Work Phone: [facility] Work Phone: 09-20-2021 10:18-0500 SaO2% (BldA) [Mass fraction] 97 % Dr. Agnieszka Fish Work Phone: [facility] Work Phone: 09-20-2021 10:18-0500 Systolic blood pressure 118 mm[Hg] Dr. Agnieszka Fish Work Phone: [facility] Work Phone: 09-17-2021 09:37-0500 Body weight 67.[address] Agnieszka Fish Work Phone: [facility] Work Phone: 09-02-2021 21:51-0500 Body mass index (BMI) [Ratio] 24 kg/m2 Dr. Agnieszka Fish Work Phone: [facility] Work Phone: 08-28-2021 17:28-0500 Body temperature 97.4 [degF] Dr. Agnieszka Fish Work Phone: [facility] Work Phone: 08-28-2021 17:28-0500 Diastolic blood pressure 54 mm[Hg] Dr. Agnieszka Fish Work Phone: [facility] Work Phone: 08-28-2021 17:28-0500 Heart rate 67 /min Dr. Agnieszka Fish Work Phone: [facility] Work Phone: 08-28-2021 17:28-0500 Respiratory rate 18 /min Dr. Agnieszka Fish Work Phone: [facility] Work Phone: 08-28-2021 17:28-0500 SaO2% (BldA) [Mass fraction] 96 % Dr. Agnieszka Fish Work Phone: [facility] Work Phone: 08-28-2021 17:28-0500 Systolic blood pressure 127 mm[Hg] Dr. Agnieszka Fish Work Phone: [facility] Work Phone: 08-28-2021 12:47-0500 Body mass index (BMI) [Ratio] 23.6 kg/m2 Dr. Agnieszka Fish Work Phone: [facility] Work Phone: 08-28-2021 12:47-0500 Body weight 70.[address] Agnieszka Fish Work Phone: [facility] Work Phone: 08-04-2021 03:03-0500 Body mass index (BMI) [Ratio] 24 kg/m2 Dr. Agnieszka Fish Work Phone: [facility] Work Phone: 07-11-2021 13:05-0500 Body weight 70.[address] Agnieszka Fish Work Phone: [facility] Work Phone: 07-11-2021 13:05-0500 Diastolic blood pressure 68 mm[Hg] Dr. Agnieszka Fish Work Phone: [facility] Work Phone: 07-11-2021 13:05-0500 Heart rate 104 /min Dr. Agnieszka Fish Work Phone: [facility] Work Phone: 07-11-2021 13:05-0500 Respiratory rate 16 /min Dr. Agnieszka Fish Work Phone: [facility] Work Phone: 07-11-2021 13:05-0500 Systolic blood pressure 108 mm[Hg] Dr. Agnieszka Fish Work Phone: [facility] Work Phone: 12-21-2020 14:53-0400 Body mass index (BMI) [Ratio] 24 kg/m2 Dr. Agnieszka Fish Work Phone: [facility] Work Phone: Encounters Encounter Date Encounter Type Care Provider Facility Start: 04-09-2025 End: 04-09-[address] Agnieszka Fish MD Work Phone: [facility] Start: 04-09-2025 End: 04-09-2025 Dheeraj YARBROUGH -[facility] Work Phone: Start: 03-20-2025 End: 03-20-[address] Agnieszka Fish MD Work Phone: -Laboratory Specimen Start: 03-20-2025 End: 03-20-2025 Carla Coughlin PROPERTY ASSISTANT-C -Laboratory Specime n Work Phone: Start: 03-20-2025 End: 03-20-2025 Carla Coughlin PROPERTY ASSISTANT-C -[facility] Work Phone: Start: 03-20-2025 End: 03-20-[address] Agnieszka Fish MD Work Phone: -[facility] Start: 03-20-2025 End: 03-20-2025 ambulatory Carla Coughlin Facility:[facility] Start: 03-03-2025 ambulatory Agnieszka Fish Facili ty:[facility] Start: 03-01-2025 End: 03-01-[address] Agnieszka Fish MD Work Phone: -Laboratory [facility] Start: 03-01-2025 End: 03-01-2025 Dr. Agnieszka Fish MD -[facility] Start: 03-01-2025 End: 03-01-2025 Dr. Agnieszka Fish MD -[facility] Work Phone: Start: 03-01-2025 End: 03-01-[address] Agnieszka Fish MD Work Phone: -[facility] Start: 03-01-2025 End: 03-01-2025 ambulatory Agnieszka Fish Facility:[facility] Start: 02-23-2025 End: 02-23-2025 Carla Coughlin PROPERTY ASSISTANT-C -[facility] Work Phone: Start: 02-23-2025 End: 02-23-[address] Agnieszka Fish MD Work Phone: -[facility] Start: 02-22-2025 End: 02-22-2025 Eun FLORES -[facility] Work Phone: Start: 02-22-2025 End: 02-22-[address] Agnieszka Fish MD Work Phone: -[facility] Start: 02-21-2025 ambulatory Agnieszka Fish Facili ty:[facility] Start: 02-13-2025 End: 03-02-2025 Dr. Agnieszka Fish MD -[facility] Start: 02-13-2025 End: 03-02-[address] Agnieszka Fish MD Work Phone: -Home Health [facility] Start: 02-10-2025 ambulatory Eun FLORES Facility:[facility] Start: 01-31-2025 End: 02-08-2025 Evaluation and management of inpatient LISA ELIZABETH FISH Facility:[facility] Start: 01-30-2025 End: 01-31-2025 Dr. Car Solomon DO -Emergency [facility] Work Phone: Start: 01-30-2025 End: 01-31-2025 Emergency department patient visit Dr. Agnieszka Fish MD Work Phone: -Emergency Department Work Phone: Start: 01-30-2025 End: 01-30-[address] Agnieszka Fish MD Work Phone: -Radiology [facility] Start: 01-30-2025 End: 01-30-2025 Patient encounter procedure Tammie Pillai PROPERTY ASSISTANT-C -Radiology [facility] Work Phone: Start: 01-30-2025 End: 01-30-2025 Tammie Pillai PROPERTY ASSISTANT-C -Radiology [facility] Work Phone: Start: 01-30-2025 End: 01-30-2025 ambulatory Tammie Pillai NP Facility:[facility] Start: 01-10-2025 End: 01-30-2025 Discharged Recurring Eun FLORES -[facility]atory [facility] Start: 01-10-2025 End: 01-30-2025 Eun Lloyd PA -Laboratory [facility] Start: 01-10-2025 End: 01-30-[address] Agnieszka Fish MD Work Phone: -[facility] Start: 01-05-2025 End: 01-05-2025 Patient encounter procedure Eun Lloyd PA -[facility] Work Phone: Start: 01-05-2025 End: 01-05-2025 Eun FLORES -[facility] Work Phone: Start: 01-05-2025 End: 01-05-[address] Agnieszka Fish MD Work Phone: [facility] Work Phone: Start: 12-02-2024 End: 12-02-2024 Discharged Recurring Eun Lloyd PA -Laboratory Work Phone: Start: 12-02-2024 End: 12-02-2024 Eun Lloyd PA -Laboratory Work Phone: Start: 12-02-2024 End: 12-02-[address] Agnieszka Fish MD Work Phone: [facility] Work Phone: Start: 11-02-2024 End: 11-30-2024 Discharged Recurring Eun FLORES -Laboratory [facility] Start: 11-02-2024 End: 11-30-2024 Eun Lloyd PA -Laboratory [facility] Start: 11-02-2024 End: 11-30-2024 ambulatory Eun FLORES Facility:[facility] Start: 10-26-2024 End: 10-26-2024 Patient encounter procedure Eun FLORES -[facility] Work Phone: Start: 10-26-2024 End: 10-26-2024 Eun FLORES -[facility] Work Phone: Start: 10-26-2024 End: 10-26-2024 ambulatory Agnieszka Fish Facility:[facility] Start: 10-06-2024 End: 10-31-2024 Discharged Recurring Eun FLORES -Laboratory, [facility] Start: 10-06-2024 End: 10-31-[address] Agnieszka Fish MD Work Phone: [facility] Work Phone: Start: 09-12-2024 End: 09-30-2024 Discharged Recurring Eun FLORES -Laboratory, [facility] Start: 09-12-2024 End: 09-30-2024 ambulatory Eun FLORES Facility:[facility] Start: 09-01-2024 End: 09-01-[address] Agnieszka Fish MD -Laboratory, [facility] Start: 09-01-2024 End: 09-01-[address] Agnieszka Fish MD -[facility] Work Phone: Start: 09-01-2024 End: 09-01-2024 ambulatory [facility] Facility:[facility] Start: 09-01-2024 End: 09-01-2024 ambulatory [facility] Facility:[facility] Start: 08-15-2024 End: 09-02-2024 Discharged Recurring Eun FLORES -Laboratory, [facility] Start: 08-15-2024 End: 09-02-2024 [facility]ulatory [facility] Facility[facility] Start: 08-01-2024 End: 08-02-2024 Discharged Recurring Eun FLORES -Laboratory, [facility] Start: 08-01-2024 End: 08-02-2024 ambulatory [facility] Facility:[facility] Start: 06-29-2024 End: 07-02-2024 ambulatory [facility] Facility:[facility] Start: 05-26-2024 End: 05-26-2024 ambulatory [facility] Facility:[facility] Start: 04-18-2024 End: 05-02-2024 ambulatory Dheeraj Rene NP Facility:[facility] Start: 04-05-2024 End: 04-05-2024 ambulatory Agnieszka URBAN Facility:[facility] Start: 03-01-2024 End: 03-01-2024 ambulatory RENO DUKES Facility:[facility] Start: 03-01-2024 End: 03-01-2024 Patient encounter procedure Reno Dukes MD Work Phone: Cardiology Comment on above: Chronic diastolic he art failure (HCC) (Primary Dx); Atrial fibrillation, chronic (HCC); Tricuspid valve insufficiency, unspecified etiology Start: 03-01-2024 End: 03-01-2024 ambulatory DANNY EDMOND Facility:[facility] Start: 12-24-2023 End: 12-24-2023 ambulatory [facility] Work Phone: Cardiology Comment on above: Holter Monitor Appli cation (24-HR) Start: 12-24-2023 End: 12-24-2023 Patient encounter procedure Danny Edmond MD Work Phone: Cardiology Comment on above: Atrial fibrillation, persistent (HCC) (Primary Dx); Other forms of angina pectoris (HCC); Chronic diastolic CHF (congestive heart failure) (HCC) Start: 12-24-2023 End: 12-24-2023 ambulatory DANNY EDMOND Facility:[facility] Start: 12-02-2023 Telephone encounter Danny silveira MD Work Phone: Cardiology Comment on above: Received [facility] ([facility]) Atrial fibrillation, unspecified type (HCC) (Primary Dx) Start: 11-18-2023 Non-patient / Non-visit Dr. Elina Fish Work Phone: [facility] Start: 11-17-2023 End: 11-17-[address] Agnieszka Fish Work Phone: [facility] Work Phone: Start: 11-17-2023 End: 11-17-[address] Agnieszka Fish Work Phone: [facility]-Pulmonary Services/Neurology Work Phone: Start: 11-16-2023 End: 12-01-[address] Agnieszka Fish Work Phone: [facility] Work Phone: Start: 11-16-2023 End: 12-01-[address] [facility] Start: 11-16-[address] Kristen [facility]: Start: 10-19-2023 End: 10-31-[address] Agnieszka Fish Work Phone: [facility] Work Phone: Start: 10-19-2023 End: 10-31-[address] [facility] Start: 10-05-2023 End: 10-05-[address] Agnieszka Fish Work Phone: [facility] Work Phone: Start: 09-29-2023 Non-patient / Non-visit Dr. Elina Fish Work Phone: [facility] Start: 09-29-2023 End: 09-29-[address] Agnieszka Fish Work Phone: [facility] Work Phone: Start: 09-29-2023 End: 09-29-[address] Agniesz[facility] Work Phone: Start: 09-21-2023 End: 10-01-[address] Agnieszka Fish Work Phone: [facility] Work Phone: Start: 09-21-2023 End: 10-01-[address] [facility]ies[facility]: Start: 08-31-2023 End: 08-31-[address] Agnieszka Fish Work Phone: [facility] Work Phone: Start: 08-31-2023 End: 08-31-[address] [facility] Start: 07-21-2023 End: 07-21-[address] Agnieszka Fish Work Phone: [facility] Work Phone: Start: 07-15-2023 End: 08-02-[address] Agnieszka Fish Work Phone: [facility] [place] Start: 07-15-2023 End: 07-15-2023 Patient encounter procedure Dr. Agnieszka Fish Work Phone: [facility] Internal Medicine Work Phone: Start: 06-18-2023 End: 07-02-[address] Agnieszka Fish Work Phone: [facility] Work Phone: Start: 05-29-2023 End: 05-29-2023 ambulatory [facility] Work Phone: Start: 05-29-2023 End: 05-29-2023 Discharged Recurring [facility] Work Phone: Start: 04-17-2023 End: 04-17-[address] Agnieszka Fish Work Phone: [facility] Work Phone: Start: 04-17-2023 End: 04-17-[address] Agnieszka Fish Work Phone: [facility]-Laboratory Work Phone: Start: 04-17-[address] Krist[facility]: Start: 03-18-2023 End: 04-02-[address] Agnieszka Fish Work Phone: [facility] Work Phone: Start: 03-18-2023 End: 04-02-[address] Agnieszka Fish [facility] Start: 02-12-2023 End: 03-02-[address] Agnieszka Fish [facility] Start: 02-12-2023 End: 03-02-[address] Agnieszka Fish Work Phone: [facility] Work Phone: Start: 02-12-2023 End: 02-12-[address] Agnieszka Fish Work Phone: [facility]-Outpatient Bone Densitometry Work Phone: Start: 01-28-2023 End: 01-28-[address] Agnieszka Fish Work Phone: [facility] Work Phone: Start: 01-23-2023 End: 01-30-[address] Agnieszka Fish Work Phone: [facility] Work Phone: Start: 01-23-2023 End: 01-30-[address] Agnieszka Fish Work Phone[facility] Start: 01-23-2023 End: 01-23-[address] Agnieszka Fish Work Phone: [facility] Work Phone: Start: 01-06-2023 End: 01-06-[address] Agnieszka Fish Work Phone: [facility] Work Phone: Start: 01-06-2023 End: 01-06-[address] Agniesz[facility] Start: 01-01-[address] Kristen [facility] Work Phone: [facility] Start: 01-01-2023 End: 01-01-[address] Agnieszka Fish Work Phone: [facility] Start: 12-04-2022 End: 12-31-[address] Agnieszka Fish Work Phone: [facility] Work Phone: Start: 12-04-2022 End: 12-31-[address] Agnieszka Fish [facility] Phone[facility] Start: 10-31-2022 End: 10-31-[address] Agnieszka Fish Work Phone: [facility] Work Phone: Start: 10-31-2022 End: 10-31-[address] Agnieszka Fish [facility] Phone[facility] Start: 10-15-2022 End: 10-15-[address] Agnieszka Fish Work Phone: [facility] Start: 10-15-2022 End: 10-15-[address] Agnieszka Fish Work Phone: [facility] Start: 09-26-2022 End: 09-26-[address] Agnieszka Fish Work Phone: [facility] Work Phone: Start: 09-26-2022 End: 09-26-[address] Agnieszka Fish Work Phone: [facility]-Laboratory Start: 09-26-[address] Kristen Fish Work Phone: [facility] Start: 09-18-2022 End: 09-18-[address] Agnieszka Fish Work Phone: [facility] Work Phone: Start: 09-18-2022 End: 09-18-[address] Agnieszka Fish Work Phone: [facility] Start: 08-21-2022 End: 08-21-[address] Agnieszka Fish Work Phone: [facility] Work Phone: Start: 08-21-2022 End: 08-21-[address] Agnieszka Fish Work Phone: [facility] Start: 08-08-2022 End: 08-08-[address] Agnieszka Fish Work Phone: [facility] Start: 07-24-2022 End: 07-24-[address] Agnieszka Fish Work Phone: [facility] Start: 07-15-2022 Non-patient / Non-visit Dr. Elina Fish Work Phone: [facility] Start: 07-15-2022 End: 07-15-2022 Admission to same day surgery center Dr. 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 Elina Fish Work Phone: [facility] Start: 07-10-2022 End: 07-10-[address] Agnieszka Fish Work Phone: [facility] Work Phone: Start: 07-10-2022 End: 07-10-[address] Agnieszka Fish Work Phone: [facility] Start: 06-13-2022 End: 07-02-[address] Agnieszka Fish Work Phone: [facility] Start: 06-13-[address] Kristen [facility]: [facility] Start: 06-13-2022 End: 06-13-[address] Agnieszka Fish Work Phone: [facility] Start: 06-10-2022 Non-patient / Non-visit Dr. Elina Fish Work Phone: [facility] Start: 06-10-2022 End: 06-10-[address] Agnieszka Fish Work Phone: [facility] Work Phone: Start: 06-10-2022 End: 06-10-[address] [facility]niesz[facility] Start: 05-27-2022 End: 05-27-[address] Agnieszka Fish Work Phone: [facility] Work Phone: Start: 05-27-2022 End: 05-27-[address] Agnieszka Fish Work Phone: [facility]-Laboratory Start: 04-21-2022 End: 04-21-[address] Agnieszka Fish Work Phone: [facility]-Pulmonary Services/Neurology Start: 04-14-2022 End: 04-14-[address] Agniesz[facility] Start: 04-10-2022 End: 04-10-[address] Agnieszka Fish Work Phone: [facility] Work Phone: Start: 04-10-2022 End: 04-10-[address] Agnieszka Fish Work Phone: [facility] Start: 04-01-2022 End: 04-01-[address] Agnieszka Fish Work Phone: [facility] Work Phone: Start: 04-01-2022 End: 04-01-[address] Agniesz[facility] Start: 02-07-2022 End: 03-02-[address] Agnieszka Fish Work Phone: [facility] Start: 02-07-[address] Kristen Fish Work Phone: [facility] Start: 02-07-2022 End: 02-07-[address] Agnieszka Fish Work Phone: [facility] Start: 01-16-2022 End: 03-02-[address] Agnieszka Fish Work Phone: [facility] Start: 12-17-2021 End: 12-31-[address] Agnieszka Fish Work Phone: [facility] Start: 12-03-2021 End: 12-03-[address] Agnieszka Fish Work Phone: [facility] Start: 11-25-2021 End: 11-25-[address] Agnieszka Fish Work Phone: [facility] Start: 11-18-2021 End: 11-18-[address] Agnieszka Fish Work Phone: [facility] Start: 10-28-2021 End: 10-28-[address] Agnieszka Fish Work Phone: [facility] Start: 10-08-2021 End: 10-31-[address] Agnieszka Fish Work Phone: [facility] Start: 10-08-2021 End: 10-08-[address] Agnieszka Fish Work Phone: [facility] Start: 09-26-2021 End: 09-26-[address] Agnieszka Fish Work Phone: [facility] Start: 09-24-2021 End: 09-24-[address] Agnieszka Fish Work Phone: [facility] Start: 09-03-2021 End: 09-20-2021 Evaluation and management of inpatient Dr. Agnieszka Fish Work Phone: [facility]-Transitional Care Unit Start: 08-28-2021 End: 08-28-2021 Emergency department patient visit Dr. Agnieszka Fish Work Phone: [facility]-Emergency Department Start: 08-06-2021 End: 08-06-[address] Agnieszka Fish Work Phone: [facility] Start: 08-05-2021 End: 09-02-[address] Agnieszka Fish Work Phone: [facility]-Laboratory Start: 07-15-[address] Agnieszka Fish Work Phone: [facility]-Pulmonary Services/Neurology Start: 07-11-2021 End: 07-11-[address] Agnieszka Fish Work Phone: [facility] Start: 01-22-[address] [facility] Facility :[facility] Start: 10-22-2017 End: 10-22-[address] [facility] Facility:[facility] Start: 10-12-2017 End: 10-12-[address] [facility] Facility:[facility] Start: 10-09-2017 End: 10-09-[address] [facility] Facility:[facility] Start: 06-11-2017 End: 06-11-[address] [facility] Facility:[facility] Procedures Date Procedure Procedure Detail Performing Clinician Start: 03-20-[address] Kristen Fish MD Work Phone: Start: 02-13-2025 Mean corpuscular hem oglobin concentration determination Dr. Agnieszka Fish MD Work Phone: Start: 02-13-2025 Platelet mean volume determination Dr. Agnieszka Fish MD Work Phone: Start: 01-31-2025 Antibody screen LISA FISH Comment on above: Order Comment: Speci men Type: BLOOD SPECIMENOrdering Facility: [facility] Address: [address] [place] [address] Performed By: #### T SCR ####[facility] BLOOD BANKIA [id number] [place] [address] [facility] Start: 01-30-2025 Urine microscopy: red cells Dr. Agnieszka Fish MD Work Phone: Start: 01-30-2025 Urnls dip stick/tabl et reagent auto microscopy Dr. Agnieszka Fish MD Work Phone: Start: 01-30-2025 Computed tomography of abdomen and pelvis with intravenous contrast Dr. Agnieszka Fish MD Work Phone: Start: 01-30-2025 Blood count smear mc rscp w/mnl difrntl wbc count Dr. Agnieszka Fish MD Work Phone: Start: 01-30-[address] Agnieszka Fish MD Work Phone: Start: 01-30-2025 Mean corpuscular hem oglobin concentration determination Dr. Agnieszka Fish MD Work Phone: Start: 01-30-2025 Nucleated red blood cell count procedure Dr. Agnieszka Fish MD Work Phone: Start: 01-30-2025 Platelet mean volume determination Dr. Agnieszka Fish MD Work Phone: Start: 01-30-[address]25 [address] se measurement Dr. Agnieszka Fish MD Work Phone: Start: 01-30-2025 Blood count smear mc rscp w/mnl difrntl wbc count Dr. Agnieszka Fish MD Work Phone: Start: 01-30-2025 Calculation of inter national normalized ratio Dr. Agnieszka Fish MD Work Phone: Start: 01-30-2025 Mean corpuscular hem oglobin concentration determination Dr. Agnieszka Fish MD Work Phone: Start: 01-30-2025 Nucleated red blood cell count procedure Dr. Agnieszka Fish MD Work Phone: Start: 01-30-2025 Platelet mean volume determination Dr. Agnieszka Fish MD Work Phone: Start: 01-30-2025 X-ray of chest, PA a nd lateral views Dr. Agnieszka Fish MD Work Phone: Start: 01-10-2025 Calculation of inter national normalized ratio Dr. Agnieszka Fish MD Work Phone: Start: 12-02-[address] Agnieszka Fish MD Work Phone: Start: 12-02-2024 Calculation of inter national normalized ratio Dr. Agnieszka Fish MD Work Phone: Start: 12-02-2024 Total cholesterol:HD L ratio measurement Dr. Agnieszka Fish MD Work Phone: Start: 11-02-2024 Calculation of inter national normalized ratio Dr. Agnieszka Fish MD Work Phone: Start: 11-02-[address] Agnieszka Fish MD Work Phone: Start: 11-02-2024 Total cholesterol:HD L ratio measurement Dr. Agnieszka Fish MD Work Phone: Start: 03-01-2024 Echo tthrc r-t 2d w/ wom-mode compl spec&colr d Danny Edmond MD Work Phone: Start: 09-29-2023 Cardiovascular stres s test using pharmacologic stress agent Dr. Agnieszka Fish Work Phone: Start: 02-12-2023 Dual energy X-ray absorptiometry Dr. Agnieszka Fish Work Phone: Start: 09-18-2022 Plain chest X-ray Dr. Sisi Fish Work Phone: Start: 07-10-2022 Plain chest X-ray Dr. Sisi Fish Work Phone: Start: 10-08-[address] Kristen Fish Work Phone: Start: 09-19-2021 SARS-CoV-2 Antigen (Rapid) Dr. Agnieszka Fish Work Phone: Start: 08-28-2021 Radiologic examinati on of knee Dr. Agnieszka Fish Work Phone: Start: 08-28-2021 X-ray of both feet Dr. Agnieszka Fish Work Phone: Plan of Treatment Date Care Activity Detail Author Start: 01-31-2025 [facility] Start: 01-30-2025 [facility] Start: 09-03-2024 Diabetes Screening Diabetes Screenin g [facility] Start: 04-03-2024 Influenza vaccination [facility] Start: 03-01-2024 End: 03-01-2024 Patient encounter procedure 03/01/2024 2:15 PM EDT Office Visit Cardiology [address] [id number] Reno Dukes MD [address] [place], [place] [id number] Dx: Atrial fibrillation, persistent (HCC) [I48.19] Cardiology Comment on above: Dx: Atrial fibrillat ion, persistent (HCC) [I48.19] Start: 03-01-2024 End: 03-01-2024 Patient encounter procedure 03/01/2024 12:30 PM EDT Appointment Cardiology [address] [id number] Dx: Atrial fibrillation, persistent (HCC) [I48.19] Cardiology Comment on above: Dx: Atrial fibrillat ion, persistent (HCC) [I48.19] Start: 12-24-2023 End: 12-24-2023 ambulatory 12/24/2023 12:00 PM EDT Results Only Cardiology [address] [place] [address] DX: AFIB Cardiology Comment on above: DX: AFIB Start: 12-24-2023 End: 12-24-2023 Patient encounter procedure Cardiology Comment on above: DX: AFIB Start: 09-29-2023 Covid-19 Vaccine () Covid-19 Vaccine () [facility] Start: 08-03-2023 Advance Directive Discussion Advance Directive Discussion [facility] Start: 08-03-2023 Behavioral Health Screening Behavioral Health Screening [facility] Start: 07-21-2023 Evaluation of diagno stic study results [facility] Start: 04-03-2023 Covid-19 Vaccine () Covid-19 Vaccine () [facility] Start: 03-24-2016 Urine microalbumin profile DTa P,Tdap,Td Vaccine (1 - Tdap) [facility] Start: 1996 RSV Vaccine (1 - 1-d ose 60+ series) RSV Vaccine (1 - 1-dose 60+ series) [facility] Start: 1986 Shingrix Vaccine (1 of 2) Murphy grix Vaccine (1 of 2) [facility] Start: 1954 Depression Screening Depression Scre ening [facility] Anion gap in Serum o r Plasma [facility] BUN/Creatinine ratio [facility] Calcium [Mass/volume ] in Serum or Plasma [facility] Carbon dioxide, tota l [Moles/volume] in Central venous blood [facility] Cardioversion [facility] Work Phone: Cardioversion [facility] CBC W Auto Different ial panel - Blood [facility] Creatinine [Mass/vol ume] in Serum or Plasma [facility] DXA Bone [Mass/Area] Bone density [facility] DXA Bone [Mass/Area] Bone density [facility] End: 12-01-2024 ECG COMPLETE ECG COMPLETE ECG Routine Atrial fibrillation, unspecified type (HCC) 1 Occurrences starting 12/02/2023 until 12/01/2024 [facility] Work Phone: Comment on above: 1 Occurrences starti ng 12/02/2023 until 12/01/2024 End: 12-23-2024 Echocardiography ECHO Cardiology Routine Atrial fibrillation, persistent (HCC) 1 Occurrences starting 12/24/2023 until 12/23/2024 [facility] Work Phone: Comment on above: 1 Occurrences starti ng 12/24/2023 until 12/23/2024 Glucose [Mass/volume ] in Serum or Plasma [facility] Hepatic function panel [facility] End: 12-23-2024 HOLTER MONITOR 24 HOUR HOLTER MONITOR 24 HOUR ECG Routine Atrial fibrillation, persistent (HCC) 1 Occurrences starting 12/24/2023 until 12/23/2024 [facility] Comment on above: 1 Occurrences starti ng 12/24/2023 until 12/23/2024 Lipid 1996 panel - S abdullahi or Plasma [facility] Measurement of renal function [facility] Patient referral [facility] Work Phone: Potassium measurement [facility] Radionuclide imaging of perfusion of myocardium under exercise stress [facility] Serum chloride measurement [facility] Sodium measurement [facility] Troponin T.cardiac [Mass/volume] in Serum or Plasma by High sensitivity method [facility] Urea nitrogen [Mass/volume] in Serum or Plasma [facility] US Heart [facility] Vitamin D, 25-hydrox y measurement [facility] Immunizations Immunization Date Immunization Notes Care Provider [facility] 05-29-2023 influenza virus vacc ine, unspecified formulation Reno Dukes MD Work Phone: [facility] 05-19-2021 Covid (Pfizer) Dr. Agnieszka Fish Work Phone: [facility] 05-19-2021 influenza virus vacc ine, unspecified formulation Danny Edmond MD Work Phone: [facility] 09-20-2020 Covid (Pfizer) Dr. Agnieszka Fish Work Phone: [facility] 08-30-2020 Covid (Pfizer) Dr. Agnieszka Fish Work Phone: [facility] 05-02-2020 influenza, injectabl e, quadrivalent, preservative free Dr. Agnieszka Fish Work Phone: [facility] 05-02-2020 influenza, seasonal, injectable Dr. Agnieszka Fish Work Phone: [facility] 05-02-2020 Fluad Quad (65yr up)(PF) 60 mcg (15 mcg x 4)/0.5mL IM syringe (flu vac Dr. Agnieszka Fish Work Phone: [facility] Work Phone: 05-24-2019 influenza, injectabl e, quadrivalent, preservative free Dr. Agnieszka Fish Work Phone: [facility] 05-24-2019 influenza, seasonal, injectable Dr. Agnieszka Fish Work Phone: [facility] 05-24-2019 Fluad 2018- 65yr up(PF)45 mcg(15 mcgx3)/0.5 mL intramuscular syringe (flu vac Dr. Agnieszka Fish Work Phone: [facility] Work Phone: 03-23-2016 tetanus and diphther ia toxoids, adsorbed, preservative free, for adult use (2 Lf of tetanus toxoid and 2 Lf of diphtheria toxoid) Dr. Agnieszka Fish Work Phone: [facility] 05-18-[address] Sid Fish Work Phone: [facility] Work Phone: 05-18-2015 pneumococcal vaccine , unspecified formulation Dr. Agnieszka Fish Work Phone: [facility] 05-09-2015 influenza, high dose seasonal, preservative-free Danny Edmond MD Work Phone: [facility] 05-09-2015 influenza, injectabl e, quadrivalent, preservative free Dr. Agnieszka Fish Work Phone: [facility] 05-09-2015 influenza, seasonal, injectable Dr. Agnieszka Fish Work Phone: [facility] 01-05-2015 pneumococcal conjuga te vaccine, 13 valent Danny Edmond MD Work Phone: [facility] 04-28-2014 influenza, high dose seasonal, preservative-free Danny Edmond MD Work Phone: [facility] 06-14-2012 influenza virus vacc ine, unspecified formulation Danny Edmond MD Work Phone: [facility] 03-30-2012 tetanus and diphther ia toxoids, adsorbed, preservative free, for adult use (2 Lf of tetanus toxoid and 2 Lf of diphtheria toxoid) Danny Edmond MD Work Phone: [facility] Work Phone: 06-25-2004 pneumococcal polysaccharide vaccine, 23 valent Danny Edmond MD Work Phone: [facility] Payers Date Payer Category Payer Self-pay [id number] 2019 Unknown MMO MMO MEDICARE SUPPLEMENT [id number] 2019-Present [phone] [address] [place] [address] Indemnity [id number] 2015 Unknown [id number] 2002 Medicare MEDICARE MEDICAR E A AND B [id number] 2002-Present [phone] [facility] [address] [place] [address] Medicare [id number] 2001 Medicare [id number] Medicare [id number] Unknown [id number] Unknown [id number] 2.16.840.1.321075.3.579.2.462 Unknown [id number] 2.16.840.1.458466.3.579.2.462 Unknown [id number] 2.16.840.1.898873.3.579.2.462 Unknown [id number] 2.16.840.1.204483.3.579.2.462 Unknown [id number] 2.16.840.1.475793.3.579.2.462 Unknown [id number] 2.16.840.1.942996.3.579.2.462 Unknown [id number] 2.16.840.1.850855.3.579.2.462 Unknown [id number] 2.16.840.1.543194.3.579.2.462 Unknown [id number] 2.16.840.1.320252.3.579.2.462 Unknown [id number] 2.16.840.1.028473.3.579.2.462 Unknown [id number] 2.16.840.1.893127.3.579.2.462 Unknown [id number] 2.16.840.1.003680.3.579.2.462 Unknown [id number] 2.16.840.1.466444.3.579.2.462 Unknown [id number] 2.16.840.1.372615.3.579.2.462 Unknown [id number] 2.16.840.1.654695.3.579.2.462 Unknown [id number] 2.16.840.1.629976.3.579.2.462 Unknown [id number] 2.16.840.1.248994.3.579.2.462 Unknown [id number] 2.16.840.1.674126.3.579.2.462 Unknown [id number] 2.16.840.1.288224.3.579.2.462 Unknown [id number] 2.16.840.1.989194.3.579.2.462 Unknown [id number] 2.16.840.1.614594.3.579.2.462 Unknown [id number] 2.16.840.1.494211.3.579.2.462 Unknown [id number] 2.16.840.1.152208.3.579.2.462 Unknown [id number] 2.16.840.1.301276.3.579.2.462 Unknown [id number] 2.16.840.1.456839.3.579.2.462 Unknown [id number] 2.16.840.1.186984.3.579.2.462 Social History Date Type Detail Facility Start: 10-08-2021 End: 07-21-2023 Tobacco smoking status CAIS Unknown if ever smoked [facility] Start: 05-15-2015 None [facility] Start: 05-15-2015 Alone [facility] Start: 05-15-2015 Non-smoker [facility] Start: 1935 Sex Assigned At Female [facility] Start: 05-29-2011 End: 03-01-2025 Tobacco smoking status NHIS Never smoked tobacco [facility] Work Phone: Start: 05-29-2011 Tobacco use and exposure Smokeless tobacco non-user [facility] Start: 08-29-2021 End: 03-01-2024 Alcohol intake Current drinker of alcohol (finding) [facility] Start: 08-29-2021 End: 12-24-2023 History of Social function [facility] Start: 08-29-2021 End: 12-24-2023 Tobacco use panel [facility] Adult Depression Screening Assessment 0 [facility] Start: 1935 Sex Assigned At Not on file [facility] Start: 11-01-2024 Sex Female (finding) [facility] Medical Equipment Procedure Code Equipment Code Equipment Origin al Text Equipment Identifier Dates Rfn-A Femur Nail 5deg Bend 12mm X 200mm Sterile [id number] Start: 08-29-2021 Locking Screw Tf na Medullary Nail 5mm X 70mm Xl25 Ns [id number] Start: 08-29-2021 Locking Screw Fo r Im Nail 5mm 82mm Xl25 [id number] Start: 08-29-2021 Locking Screw Tf na Medullary Nail 5mm X 76mm Xl25 Ns [id number] Start: 08-29-2021 Locking Screw Tf na Medullary Nail 5mm X 30mm Xl25 Ns [id number] Start: 08-29-2021 Goals Date Patient Goal Desired Activity /State Personal health goal Functional Status Date Assessment Result Facility 09-20-2021 Functional status Up ad monica [facility] Work Phone: Mental Status Date Assessment Result Facility 09-20-2021 Cognitive function Voice/Name [facility] Work Phone: Clinical Notes 11-18-2023 to 02-08-2025 Note Date & Type Note Facility 02-08-2025 Note HNO ID: [id number] Author: STEVE GONZALEZ RN Service: Care Management Author Type: Registered Nurse Type: Care Mgt Progress Note Filed: 02/09/2025 07:39 Note Text: CARE MANAGEMENT DISCHARGE NOTE SERVICE DATE: February 09, 2025 SERVICE TIME: 737 Admission Date: 01/31/2025 LOS: 8 days Discharge Arrangement Discharge Arrangement: Home with Home Health Services Arranged Medical Services: Skilled Home Health Care Type: Home Health Agency, Jail, Physical Therapy, Occupational Therapy Provider Name: Dr. Fish Caregiver Assessment Caregiver is ready, willing and able to meet the patient's needs as recommended by the inter-professional team: Yes Name of Caregiver: [facility] Transportation Arrangements Transportation Arrangements: Car Handoff Communication: Additional Information: Discharge Information Row Name ED to Hosp-Admission (Discharged) from 01/31/2025 in [facility] Care Agency [facility] Start of Care 02/09/25 Patient discharged last evening to home with [facility]. Order and DC summary sent to agency. Patient arranged transport home with a friend. SIGNATURE: Steve Gonzalez RN PATIENT NAME: Ana Maria Avalos DATE: February 09, 2025 TIME: 7:38 AM [facility] 02-08-2025 Note HNO ID: [id number] Author: STEVE GONZALEZ RN Service: Care Management Author Type: Registered Nurse Type: Care Mgt Progress Note Filed: 02/08/2025 15:05 Note Text: CARE MANAGEMENT PROGRESS NOTE SERVICE DATE: 02/08/2025 SERVICE TIME: 1504 LOS: 8 days Needs Prior to Discharge: To Be Determined [facility] can accept and do SOC tomorrow. Patient informed and agreeable. Home care order sent. SIGNATURE: Steve Gonzalez RN PATIENT NAME: Ana Maria Avalos DATE: February 08, 2025 TIME: 3:04 PM [facility] 02-08-2025 Note HNO ID: [id number] Author: STEVE GONZALEZ RN Service: Care Management Author Type: Registered Nurse Type: Care Mgt Progress Note Filed: 02/08/2025 10:42 Note Text: CARE MANAGEMENT PROGRESS NOTE SERVICE DATE: 02/08/2025 SERVICE TIME: 1040 LOS: 8 days Needs Prior to Discharge: To Be Determined Chart reviewed. Informed patient that [facility] can draw INR labs if she discharges on coumadin. Patient requested referral to [facility] after discussing home care with friend. Referral sent. Awaiting ECHO. CM will continue to follow. SIGNATURE: Steve Gonzalez RN PATIENT NAME: Ana Maria Avalos DATE: February 08, 2025 TIME: 10:40 AM [facility] 02-07-2025 Note HNO ID: [id number] Author: HIMANSHU DECKER DO Service: Hospital Medicine Author Type: Physician Type: Progress Notes Filed: 02/07/2025 16:53 Note Text: DEPARTMENT OF HOSPITAL MEDICINE PROGRESS NOTE SERVICE DATE: 02/07/2025 SERVICE TIME: 4:45 PM Hospital Medicine/Primary Attending: Himanshu Decker DO NIGHT AND WEEKEND COVERAGE: After 7pm please page [phone] SUBJECTIVE: Patient seen examined at bedside. Reports [...] on lower side -Cardio following echo pending #HANH v CKD improving-renal function improved -Monitor BMP -Hold losartan/Aldactone due to hanh and hypotension #HFpEF- Last EF 57% #moderately- [...] VTE Prophylaxis: scd, subcu heparin Disposition: Home (more content not included)... [facility] 02-07-2025 Note HNO ID: [id number] Author: STEVE GONZALEZ RN Service: Care Management Author Type: Registered Nurse Type: Care Mgt Progress Note Filed: 02/07/2025 15:51 Note Text: CARE MANAGEMENT PROGRESS NOTE SERVICE DATE: 02/07/2025 SERVICE TIME: 1550 LOS: 7 days Needs Prior to Discharge: To Be Determined, Home Care Order Chart reviewed. Informed patient that [facility] can accept. Patient is agreeable to use [facility]. Will need home care order placed prior to discharge. SIGNATURE: Steve Gonzalez RN PATIENT NAME: Ana Maria Avalos DATE: February 07, 2025 TIME: 3:50 PM [facility] 02-07-2025 Note HNO ID: [id number] Author: MARVIN CASTILLO APRN.NEISHA Service: Hospital Medicine Author Type: Nurse Practitioner Type: Progress Notes Filed: 02/07/2025 06:31 Note Text: Nurse (Ami Kelsey RN) informed me that she discontinued the right [...] redness or signs of infection. WILIAN Boswell ([facility], pager # [phone]) [facility] 02-06-2025 Note HNO ID: [id number] Author: HIMANSHU DECKER DO Service: Hospital Medicine Author Type: Physician Type: Progress Notes Filed: 02/06/2025 17:38 Note Text: DEPARTMENT OF HOSPITAL MEDICINE PROGRESS NOTE SERVICE DATE: 02/06/2025 SERVICE TIME: 5:26 PM Hospital Medicine/Primary Attending: Himanshu Decker DO NIGHT AND WEEKEND COVERAGE: After 7pm please page [phone] SUBJECTIVE: Patient seen examined at bedside. No [...] on lower side -Cardio consult as above #HANH v CKD improving-renal function improved -Monitor BMP -Hold losartan/Aldactone due to hanh and hypotension #HFpEF- Last EF 57% #moderately- [...] - Continue levothyroxine 112 mcg daily VTE Prophyla (more content not included)... [facility] 02-06-2025 Note HNO ID: [id number] Author: STEVE GONZALEZ RN Service: Care Management Author Type: Registered [...] No preferred agency named. Referral sent to [facility] to see if they can accept and service Pietro. will continue to follow. SIGNATURE: Steve Gonzalez RN PATIENT NAME: Ana Maria Avalos DATE: February 06, 2025 TIME: 12:46 PM [facility] 02-05-2025 Note HNO ID: [id number] Author: HIMANSHU DECKER DO Service: Hospital Medicine Author Type: Physician Type: Progress Notes Filed: 02/05/2025 14:16 Note Text: DEPARTMENT OF HOSPITAL MEDICINE PROGRESS NOTE SERVICE DATE: 02/05/2025 SERVICE TIME: 2:08 PM Hospital Medicine/Primary Attending: Himanshu Decker DO NIGHT AND WEEKEND COVERAGE: After 7pm please page [phone] SUBJECTIVE: Patient seen and examined at bedside. [...] NM +BS, bruising over right flank, smaller chilkoot of demarcated bruising over left flank, noticed [...] on lower side -Cardio consult as above #HANH v CKD improving -Monitor BMP -Hold losartan/Aldactone due to hanh and hypotension #HFpEF- Last EF 57% #moderately- [...] VTE Prophylaxis: scd, subcu heparin Disposition: Home (more content not included)... [facility] 02-04-2025 Note HNO ID: [id number] Author: HIMANSHU DECKER DO Service: Hospital Medicine Author Type: Physician Type: Progress Notes Filed: 02/04/2025 15:18 Note Text: DEPARTMENT OF HOSPITAL MEDICINE PROGRESS NOTE SERVICE DATE: 02/04/2025 SERVICE TIME: 3:13 PM Hospital Medicine/Primary Attending: Himanshu Decker DO NIGHT AND WEEKEND COVERAGE: After 7pm please page [phone] SUBJECTIVE: Patient seen examined at bedside, no [...] NM +BS, bruising over right flank, smaller chilkoot of demarcated bruising over left flank Neuro- [...] INR see above - Continue metoprolol metoprolol #HANH v CKD improving -Monitor BMP -Hold losartan/Aldactone due to hanh and hypotension #HFpEF- Last EF 57% #moderately- severe (3+) tricuspid valve regurgitation #mod pulm htn - Continue Farxiga 10 mg daily - Continue metoprolol twice daily hold blood pressure below 100 systolic # Hyperkalemia -Will give D10 and insulin -1 dose of Lokelma -Hold Aldactone and losartan due to hanh -Consider dose of Lasix if blood pressure [...] encounter (POA: Yes) Atrial fibrillation (HCC) (POA: Ye (more content not included)... [facility] 02-03-2025 Note HNO ID: [id number] Author: HIMANSHU DECKER DO Service: Hospital Medicine Author Type: Physician Type: Progress Notes Filed: 02/03/2025 08:39 Note Text: DEPARTMENT OF HOSPITAL MEDICINE PROGRESS NOTE SERVICE DATE: 02/03/2025 SERVICE TIME: 8:36 AM Hospital Medicine/Primary Attending: Himanshu Decker DO NIGHT AND WEEKEND COVERAGE: After 7pm please page [phone] SUBJECTIVE: Patient seen examined at bedside. No [...] INR see above - Continue metoprolol metoprolol #HANH v CKD improving -Monitor BMP -Hold losartan/Aldactone [...] (POA: Yes) This note was generated using wireWAX voice dictation. All reasonable efforts were made to correct dictation errors. SIGNATURE: Himanshu Decker DO PATIENT NAME: Ana Maria Avalos DATE: February 03, 2025 TIME: 8:36 (more content not included)... [facility] 02-02-2025 Note HNO ID: [id number] Author: PILAR MACIAS MD Service: General Surgery Author Type: Resident [...] there are any questions or concerns. Pilar Macias MD February 02, 2025 2:46 PM [facility] 02-02-2025 Note HNO ID: [id number] Author: HIMANSHU DECKER DO Service: Hospital Medicine Author Type: Physician Type: Progress Notes Filed: 02/02/2025 13:15 Note Text: DEPARTMENT OF HOSPITAL MEDICINE PROGRESS NOTE SERVICE DATE: 02/02/2025 SERVICE TIME: 1:11 PM Hospital Medicine/Primary Attending: Himanshu Decker DO NIGHT AND WEEKEND COVERAGE: After 7pm please page [phone] SUBJECTIVE: Patient seen examined at bedside, no [...] last 24 hours. Renal Panel: Recent Labs 02/02/25309 CREAT 1.29* BUN 36* GLUC 106* CA [...] hold monitor INR - Continue metoprolol metoprolol #HANH v CKD improving -Monitor BMP #HFpEF- Last [...] (POA: Yes) This note was generated using wireWAX voice dictation. All reasonable efforts were made to correct dictation errors. SIGNATURE: Himanshu Decker DO PATIENT NAME: Ana Maria Avalos DATE: February 02, 2025 TIME: 1:11 PM PAGER/CONTACT #: My Pager [facility] 02-01-2025 Note HNO ID: [id number] Author: STEVE GONZALEZ RN Service: Care Management Author Type: Registered [...] CM will continue to follow. SIGNATURE: Steve Gonzalez RN PATIENT NAME: Ana Maria Avalos DATE: February 01, 2025 TIME: 12:16 PM [facility] 02-01-2025 Note HNO ID: [id number] Author: HIMANSHU DECKER DO Service: Hospital Medicine Author Type: Physician Type: Progress Notes Filed: 02/01/2025 11:46 Note Text: DEPARTMENT OF HOSPITAL MEDICINE PROGRESS NOTE SERVICE DATE: 02/01/2025 SERVICE TIME: 11:37 AM Hospital Medicine/Primary Attending: Himanshu Decker, NIGHT AND WEEKEND COVERAGE: After 7pm please page [phone] SUBJECTIVE: Patient seen and examined at bedside, [...] -Warfarin on hold monitor INR -Resume metoprolol #HANH v CKD improving -Monitor BMP #HFpEF- Last [...] (POA: Yes) This note was generated using wireWAX voice dictation. All reasonable efforts were made to correct dictation errors. SIGNATURE: Himanshu Decker DO PATIENT NAME: Ana Maria Avalos DATE: February 01, 2025 TIME: 11:37 AM PAGER/CONTACT #: My Pager [facility] 01-31-2025 Note HNO ID: [id number] Author: RYAN MALDONADO RN Service: Care Management Author Type: Registered Nurse Type: Care Mgt Initial Assessment Filed: 01/31/2025 17:19 Note Text: CARE MANAGEMENT: ASSESSMENT AND DISCHARGE PLAN SERVICE DATE: January 31, 2025 SERVICE TIME: 5:11 PM PCP: Agnieszka Fish MD Primary Contact: Extended Emergency Contact Information Primary Emergency Contact: Preston Pope Mobile Relation: Daughter Secondary Emergency Contact: Nehal Boles Mobile Relation: Other Admission Status: Inpatient Insurance Provider: MEDICARE A AND B Discharge Planning requested by: Per Department Practice Potential Transition Plans To Be Determined Advance Directives Current Advance Directive: None Hand Mexican Food Maker Attempted to Assist with AD Completion: Yes [...] little to no assistance, Back to cooking Hanson of Choice Explained: Hanson of Choice Given: No Are you interested [...] groceries and will work on the yard. 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 Her son lives near by but is not super helpful. Has a walker but does not use it. +DME, +PCP. Anticipate patient will be discharging home pending clinical course. She states if she does need placement she would prefer somewhere in [place]. Friends will be able to transport home. SIGNATURE: Ryan Maldonado RN PATIENT NAME: Ana Maria Avalos DATE: January 31, 2025 TIME: 5:11 PM [facility] 01-30-2025 Discharge summary [facility] 01-30-2025 Radiology Diagnostic study note [facility] Imaging Services [address] [place] [address] [id number] Chest PA and Lateral MR#: [id number] Acct: [id number] Name: ANA MARIA AVALOS Rep #: [id number] : 1935 F 89 From: Martín Justin MD PCP: Dr. Agnieszka Fish MD Status: R EG CLI Study:Chest PA and Lateral Date of Exam: 01/30/25 Exam# [id number] Ordering Dr: Tammie Pillai PROPERTY ASSISTANT PROPERTY ASSISTANT-C PROCEDURE: CHEST PA AND LATERAL 01/30/2025 REASON FOR EXAM: SHORTNESS OF BREATH, CHF TECHNIQUE: CHEST PA AND LATERAL COMPARISON: 09/18/2022. FINDINGS: The heart is enlarged. Bibasilar linear opacities favoring atelectasis. The lungs are hyperaerated which can suggest COPD. Chronic right rib deformities. RAD/Chest PA and Lateral IMPRESSION: Cardiomegaly. Hyperaerated lungs with can suggest COPD. Probable bibasilar atelectasis. Reading Location: [id number] CC: PROPERTY ASSISTANT-C Tammie Pillai; Dr. Agnieszka Fish MD ~ Injection Mold Tooling Technician: Signed [facility] 01-30-2025 Radiology Diagnostic study note [facility] Imaging Services [address] [place] [address] Abdomen/Pelvis W IV Cont ONLY MR#: [id number] Acct: [id number] Name: ANA MARIA AVALOS Rep #: [id number] : 1935 F 89 From: Martín Justin MD PCP: Dr. Agnieszka Fish MD Status: R EG ER Study:Abdomen/Pelvis W IV Cont ONLY Date of E xam: 01/30/25 Exam# [id number] Ordering Dr: Nza Solomon DO PROCEDURE: ABDOMEN/PELVIS W IV CONT ONLY 01/30/2025 REASON FOR EXAM: RUQ AND RLQ PAIN TECHNIQUE: ABDOMEN/PELVIS W IV CONT ONLY Coronal and Sagittal reconstruction series were provided. CONTRAST: Isovue 370 VOLUME: 100 mL One or more dose reduction techniques were used (e.g., Automated exposure control, adjustment of the mA and/or kV according to patient size, use of iterative reconstruction technique. RADIATION DOSE SUMMARY: CTDlvol: 23.27+ 15.17 mGy DLP: 725.89 mGycm COMPARISON: None. FINDINGS: The heart is enlarged. Partially visualized bilateral pleural effusions. Anasarca. Degenerative changes of the spine. Hdxewjuu-wg-ilgati atherosclerosis. Normal caliber abdominal aorta. Thickening of the right anterior abdominal wall musculature measuring 10.0 x 4.1cm with internal hyperdensity suspicious for an anterior abdominal wall hematoma with acute interval hemorrhage. Small volume ascites. No suspicious lymphadenopathy. Irregular hepatic surface contour suspicious for cirrhosis. The pancreas, spleen, and adrenals are unremarkable. Bilateral renal cortical atrophy. The urinary bladder is unremarkable. The uterus is unremarkable. Colonic diverticulosis. Normal caliber large and small bowel. CT/Abdomen/Pelvis W IV Cont ONLY IMPRESSION: Anterior abdominal wall musculature hematoma with probable acute internal hemorrhage. Anasarca. Small volume ascites. Probable cirrhotic liver morphology. Cardiomegaly. Bilateral pleural effusions. Colonic diverticulosis. Reading Location: [id number] CC: Dr. Agnieszka Fish MD; Dr. Car Solomon DO ~ Injection Mold Tooling Technician: Signed [facility] 01-30-2025 Discharge summary Note Date/Time January 30, 2025 11:41pm [facility] Medical Records Department [address] [place] [address] Emergency Department Summary 01/30/25 MR#: [id number] Acct: [id number] Name: ANA MARIA AVALOS Rep #:[id number] : 1935 89 From: Car Solomon DO PCP: Dr. Agnieszka Fish MD Status:R EG ER Location: ED HPI History of Present Illness Chief Complaint: Shortness of Breath Narrative Narrative: Patient is a 89-year-old female with past medical history of chronic kidney disease, pulmonary hypertension, atrial fibrillation on warfarin, CHF, hypothyroidism who presents to the emergency department with a chief complaint of abdominal pain and shortness of breath. Patient states that she has been following closely with the heart group and they have been making several medication adjustments and attempt to help get fluid off for her. She states that she noted that she has had worsening shortness of breath with exertion and swelling in her legs and she also noted that she developed severe right sided abdominal pain therefore she came here for further evaluation management. She did not feel that she was going to make it through the night. [facility] Medical History Elevated C-reactive protein (CRP) Pain in both upper extremities Hemorrhoid CKD (chronic kidney disease), stage III 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 Longstanding persistent atrial fibrillation Foul smelling urine Hx of fracture of femur Dermatitis Nonrheumatic aortic (valve) stenosis Cystitis Osteoporosis Urinary tract infection with hematuria Vision problems Osteopenia Chronic headaches Cataracts, bilateral UTI (urinary tract infection) Back problem Arthritis Seasonal allergies RBBB DDD (degenerative disc disease) Diverticulosis Pure hypercholesterolemia Anemia Pulmonary hypertension Non-rheumatic mitral regurgitation Nonrheumatic tricuspid valve regurgitation Paroxysmal atrial fibrillation Essential hypertension Hyperlipidemia GERD (gastroesophageal reflux disease) Depression Joint pain Headache Snoring Post-nasal drainage Cough Dyspnea on exertion Anxiety Insomnia due to medical condition Hypothyroidism (acquired) Anticoagulation goal of INR 2 to 3 Hypertension Atrial fibrillation with normal ventricular rate 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 Home Medications ?Medication ?Instructions ?Recorded ?Last Taken ?Type ascorbic acid (vitamin C) 500 mg 500 mg PO DAILY@0800 SUPPLEMENT 01/24/15 08/27/21 History tablet vitamin B comp and C no.3 15 mg-10 1 ea PO DAILY SUPPL EMENT 04/24/15 08/27/21 History mg-50 mg-5 mg-300 mg capsule multivitamin 1 ea PO DAILY VITAMIN 08/27/21 History acetaminophen 500 mg tablet 1,000 mg (2 x 500 mg) PO Q 6H PRN 09/11/21 Unknown Rx PRN Pain Score 1-5 #0 tabs metoprolol tartrate 100 mg tablet 100 mg PO Q12H #180 tabs 05/23/24 Unknown Rx atorvastatin 20 mg tablet 20 mg PO QHS CHOLESTEROL #90 tabs 06/16/24 Unknown Rx alendronate 70 mg tablet See Rx Instructions .Route 1 08/21/23 Unknown Rx .COMPLEX #14 tabs Handicap Placard #1 ea 08/15/24 Unknown Rx spironolactone 25 mg tablet 25 mg PO DAILY #30 tabs Unknown Rx warfarin 3 mg tablet 3 mg PO .COMPLEX #180 tabs 0 09/19/24 Unknown Rx Held on 01/30/25. Instructions: Ordered levothyroxine 112 mcg tablet See Rx Instructions .Rout e 09/26/24 Unknown Rx .COMPLEX #90 tabs dapagliflozin propanediol 10 mg 10 mg PO QAM #30 tabs 11/15/24 Unknown Rx tablet (Farxiga) losartan 50 mg tablet 25 mg (1/2 x 50 mg) PO DAILY #90 01/20/25 Unknown Rx tabs Allergy/AdvReac Type Severity Reaction Status Date / Time bee venom protein (honey bee) Allergy Unknown UNKNOWN Verified 01/30/25 19:23 propoxyphene (From Allergy Unknown UNKNOWN Verified 01/30/25 19:23 Darvocet-N) codeine AdvReac Other Verified 01/30/25 19:23 Family History Mother Heart disease High cholesterol Osteoporosis CVA (cerebral vascular accident) Hypertension Father Hypertension Alcohol abuse Sister Asthma Hypertension Thyroid disorder Surgical History History of cataract extraction History of cardioversion (~07/15/22) History of total left knee replacement Status post surgical manipulation of ankle joint Status post total left knee replacement Social History household members: none Smoking Status: Never smoker alcohol intake: never substance use type: does not use what type of physical activity do you participate in: none ROS ROS ED ROS Narrative Constitutional: Denies any fevers, chills, headaches Eyes: Denies change in vision double vision blurred vision Cardiovascular: Denies chest pain or palpitations Respiratory complains of shortness of breath as noted above: Denies coughing wheezing Abdomen: Complains of abdominal pain as noted above denies nausea vomiting diarrhea : Denies urinary symptoms Neurological: Denies any numbness, wheeze, tingling Musculoskeletal: Denies back pain complains of bilateral lower extremity swelling as noted above Skin: Denies any rashes or lesions EXAM Physical Exam Narrative Exam Narrative: General: Patient is lying in bed rest comfortably do not appear to be acute distress Head: Atraumatic, normocephalic Eyes: PERRL bilaterally, EOMI blood, no conjunctival injection noted Neck: Soft, supple, trachea midline Cardiovascular: Regular rhythm no murmurs gallops rubs noted Respiratory: Clear to auscultation bilaterally Abdomen: Soft, nondistended, tender to palpation the right upper and lower quadrants no rebound or guarding on exam Extremities: Patient has 1+ pitting edema in the bilateral lower extremities, radial pulse +2/4 in bilateral extremities, Neurological: Patient follow commands knew that she was at [facility]24 Skin: Warm, dry, tact no rashes or lesions noted Const Vital Signs: 01/30/25 19:20 01/30/25 20:05 01/30/25 21:27 Temperature 96.1 F L Temperature Source Temporal Pulse Rate 64 88 Respiratory Rate 18 16 Blood Pressure 126/66 H 103/62 Blood Pressure Mean 86 75 Pulse Ox 94 98 Oxygen Delivery Method Room Air Room Air Room Air 01/30/25 23:00 Temperature Temperature Source Pulse Rate 90 Respiratory Rate 15 Blood Pressure 115/74 Blood Pressure Mean 87 Pulse Ox 98 Oxygen Delivery Method Room Air MDM MDM MDM Narrative Medical decision making narrative: Patient is a 89-year-old female who presents to the Emergency Department chief complaint of abdominal pain as well as dyspnea on exertion. On the differentialdiagnose occludes but not into CHF exacerbation, pneumonia, ACS, cholecystitis, pancreatitis, appendicitis. Once workup is obtained reviewed she will be reevaluated. Patient will be given 500 cc bolus of IV fluids as well as morphine Zofran. Patient's CBC reviewed showed no evidence leukocytosis white blood count normal at 5.7, hemoglobin stable at 13.5 this was compared to blood draw from earlier today, platelet count normal 173. Patient INR earlier today was noted be 6.7, sodium 132, potassium normal 4.9, creatinine was elevated 1.70 she does have underlying chronic kidney disease. Patient's AST and ALT were 62 and 42 respectively total bilirubin was noted to be 1.67 with a direct bilirubin of 0.71. Patient troponin was 56 with a delta troponin of 51. Patient is EKG showed atrial fibrillation with PVCs with a rate of 80 bpm. Patient's lipase normal at 41, urinalysis showed negative nitrites 100 leukocyte esterase 25-50 white cells with no bacteria seen she does not have any urinary symptoms this will be sent for culture will hold off antibiotics for now. Patient CT abdomen pelvis with IV contrast reviewed and showed anterior abdominal wall musculature hematoma with probable acute internal hemorrhage. Ansa cardia. Small volume ascites. Probable cirrhotic liver morphology. Cardiomegaly bilateral pleural effusions with colonic diverticulosis. I called and spoke with our general surgeon Dr. Machado here and she recommended transfer. Called and discussed case with on-call general surgeon Dr. Haji at [facility] And she states that the patient can go ER to ER. I discussed with ER physician Dr. Rocha who will accept patient for transfer. Patient was notified is agreeable this plan all question concerns answered. Lab Data Labs: Laboratory Results - last 24 hr 01/30/25 01/30/25 01/30/25 19:50 21:15 22:00 WBC 5.7 RBC 4.24 Hgb 13.5 Hct 41.4 MCV 97.6 MCH 31.8 MCHC 32.6 RDW Std Deviation 51.8 H RDW Coeff of Payal 14.5 Plt Count 173 MPV 9.0 Immature Gran % (Auto) 0.300 Neut % (Auto) 66.1 Lymph % (Auto) 15.0 L [place] % (Auto) 15.7 H Eos % (Auto) 2.4 Baso % (Auto) 0.5 Absolute Neuts (auto) 3.8 Absolute Lymphs (auto) 0.86 Nucleated RBC % 0 Sodium 132 L Potassium 4.9 Chloride 99 Carbon Dioxide 20.6 L Anion Gap 13 BUN 37 H Creatinine 1.70 H Estim Creat Clear Calc 23.07 L Est GFR (MDRD) Non-Af 29 L BUN/Creatinine Ratio 21.9 H Glucose 136 H Calcium 9.0 Total Bilirubin 1.67 H Direct Bilirubin 0.71 H AST 62 H ALT 42 H Alkaline Phosphatase 115 H Troponin T High Sens 56 H* Troponin T Hi Sens 2 Hr 51 H Total Protein 6.1 Albumin 3.8 Globulin 2.3 Lipase 41 Urine Color Yellow Urine Clarity Cloudy Urine pH 5.0 Ur Specific [place] 1.015 Urine Protein 100 H Urine Glucose (UA) 1000 H Urine Ketones Negative Urine Occult Blood 25 H Urine Nitrite Negative Urine Bilirubin Negative Urine Urobilinogen Normal Ur Leukocyte Esterase 100 H Urine RBC 0-5 SEEN Urine WBC 25-50 SEEN Ur Squamous Epith Cells 5-10 SEEN Ur Transition Epith Cell 5-10 SEEN Urine Bacteria 0 SEEN Urine Mucus 0 SEEN Radiography Diagnostic Testing: Clinical Impression(s) from Imaging Studies Abdomen/Pelvis CT 01/30/25 20:42 IMPRESSION: Anterior abdominal wall musculature hematoma with probable acute internal hemorrhage. Anasarca. Small volume ascites. Probable cirrhotic liver morphology. Cardiomegaly. Bilateral pleural effusions. Colonic diverticulosis. Reading Location: [place] [address] Discharge Plan Triage Chief Complaint: Shortness of Breath ED Provider: Car Solomon Dx/Rx/DC Orders Clinical Impression: Abdominal pain, Dyspnea on exertion, Chronic diastolic CHF (congestive heart failure), NYHA class 2, Essential hypertension, Paroxysmal atrial fibrillation, Hypothyroidism (acquired), Renal insufficiency, Hematoma of rectus sheath Prescriptions: No Action ascorbic acid (vitamin C) 500 MG tablet 500 mg PO DAILY@0800 Patient Comments: SUPPLEMENT vitamin B comp and C no.3 1 EACH capsule 1 ea PO DAILY Patient Comments: SUPPLEMENT multivitamin 1 EACH tablet 1 ea PO DAILY acetaminophen 500 mg Tablet 1,000 mg PO Q6H PRN PRN (Reason: Pain Score 1-5) Qty: 0 0RF metoprolol tartrate 100 mg tablet 100 mg PO Q12H Qty: 180 3RF atorvastatin 20 mg tablet 20 mg PO QHS Qty: 90 3RF alendronate 70 mg tablet See Rx Instructions .ROUTE .COMPLEX Qty: 14 0RF Dose Instruction: TAKE 1 TABLET BY MOUTH EVERY WEEK Rx Instructions: TAKE 1 TABLET BY MOUTH EVERY WEEK (DME) Handicap Placard See Rx Instructions .ROUTE .MEDSUPPLY Qty: 1 0RF Rx Instructions: As directed, length of time 3 years spironolactone 25 mg tablet 25 mg PO DAILY Qty: 30 11RF warfarin 3 mg tablet 3 mg PO .COMPLEX Qty: 180 3RF Protocol: Dose Management Condition: Thursday Dose/Route: 7.5 mg Instruction: 2.5 x 3 mg tablets Condition: Thursday Dose/Route: 0 mg Instruction: 0 tablets Condition: Thursday Dose/Route: 0 mg Instruction: 0 tablets Condition: Thursday Dose/Route: 6 mg Instruction: 2 x 3 mg tablets Condition: Dose/Route: 6 mg Instruction: 2 x 3 mg tablets Condition: Thursday Dose/Route: 7.5 mg Instruction: 2.5 x 3 mg tablets Condition: Thursday Dose/Route: 7.5 mg Instruction: 2.5 x 3 mg tablets Protocol Text: Adjustment Start Date: Thursday01/30/25 INR Value: 6.7 INR Date: 01/30/25 Recheck Date: 02/01/25 Rx Instructions: 2 tablets (6mg) daily or as directed levothyroxine 112 mcg tablet See Rx Instructions .ROUTE .COMPLEX Qty: 90 3RF Dose Instruction: TAKE 1 TABLET BY MOUTH DAILY for FOR THYROID Rx Instructions: TAKE 1 TABLET BY MOUTH DAILY for FOR THYROID dapagliflozin propanediol [Farxiga] 10 mg tablet 10 mg PO QAM Qty: 30 11RF losartan 50 mg tablet 25 mg PO DAILY Qty: 90 3RF Primary Care Provider: Agnieszka Fish Referrals: Agnieszka Fish MD [Primary Care Provider] - Print Language: Icelandic Disposition Disposition: DC/Tx to Another Type of HCF What to do if you have Problems For any increased pain, shortness of breath, bleeding, nausea or vomiting, chestpain, or any unexpected problems, contact your Primary Care Provider. Call [facility] ([phone]) or report to the closest Emergency Room. Call 911 if necessary. 01/30/25 2341 <Electronically signed by Car Solomon DO> Cosigner Signature (if applicable): CC: Dr. Agnieszka Fish MD ~ Signed [facility] Work Phone: 1(901) 573-238906-05-2025 Evaluation note* Diagnosis Onset Date Resolution Status Admit Date Fatigue acute January 05, 2025 9:25am CKD (chronic kidney disease) , stage III chronic January 05, 2025 9:25am 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 chronic January 05, 2025 9:25am Longstanding persistent atri al fibrillation chronic January 05, 2025 9:25am Pure hypercholesterolemia chronic January 05, 2025 9:25am Fatigue acute February 22 12:52pm Right ventricular dilation acute February 22, 2025 12:52pm CKD (chronic kidney disease) , stage III chronic February 22, 2025 12:52pm 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 chronic February 22, 2025 12:52pm Longstanding persistent atri al fibrillation chronic February 22, 2025 12:52pm Pure hypercholesterolemia chronic February 22, 2025 12:52pm Fatigue acute February 23 10:52am Hospital discharge follow-up acute February 23, 2025 10:52am 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 chronic February 23, 2025 10:52am Longstanding persistent atri al fibrillation chronic February 23, 2025 10:52am Hematoma of rectus sheath noneactive February 23, 2025 10:52am [facility] Work Phone: 1([phone]) 710-875906-05-2025 Evaluation note* Diagnosis Onset Date Resolution Status Admit Date Fatigue acute January 05, 2025 9:25am CKD (chronic kidney disease) , stage III chronic January 05, 2025 9:25am 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 chronic January 05, 2025 9:25am Longstanding persistent atri al fibrillation chronic January 05, 2025 9:25am Pure hypercholesterolemia chronic January 05, 2025 9:25am Fatigue acute February 22 12:52pm Right ventricular dilation acute February 22, 2025 12:52pm CKD (chronic kidney disease) , stage III chronic February 22, 2025 12:52pm 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 chronic February 22, 2025 12:52pm Longstanding persistent atri al fibrillation chronic February 22, 2025 12:52pm Pure hypercholesterolemia chronic February 22, 2025 12:52pm Fatigue acute February 23 10:52am Hospital discharge follow-up acute February 23, 2025 10:52am 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 chronic February 23, 2025 10:52am Longstanding persistent atri al fibrillation chronic February 23, 2025 10:52am Hematoma of rectus sheath noneactive February 23, 2025 10:52am Insomnia acute March 01 10:52am Hematoma of rectus sheath chronic March 01, 2025 10:52am Hypothyroidism (acquired) chronic March 01, 2025 10:52am Mood disorder chronic March 01, 2025 10:52am Pulmonary hypertension chronic 2024 10:52am [facility] Work Phone: 1([phone]) 504-451006-05-2025 Evaluation note* Diagnosis Onset Date Resolution Status Admit Date Fatigue acute January 05, 2025 9:25am CKD (chronic kidney disease) , stage III chronic January 05, 2025 9:25am 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 chronic January 05, 2025 9:25am Longstanding persistent atri al fibrillation chronic January 05, 2025 9:25am Pure hypercholesterolemia chronic January 05, 2025 9:25am Fatigue acute February 22 12:52pm Right ventricular dilation acute February 22, 2025 12:52pm CKD (chronic kidney disease) , stage III chronic February 22, 2025 12:52pm 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 chronic February 22, 2025 12:52pm Longstanding persistent atri al fibrillation chronic February 22, 2025 12:52pm Pure hypercholesterolemia chronic February 22, 2025 12:52pm Fatigue acute February 23 10:52am Hospital discharge follow-up acute February 23, 2025 10:52am 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 chronic February 23, 2025 10:52am Longstanding persistent atri al fibrillation chronic February 23, 2025 10:52am Hematoma of rectus sheath noneactive February 23, 2025 10:52am Insomnia acute March 01 10:52am Hematoma of rectus sheath chronic March 01, 2025 10:52am Hypothyroidism (acquired) chronic March 01, 2025 10:52am Mood disorder chronic March 01, 2025 10:52am Pulmonary hypertension chronic Ju ly 2024 10:52am UTI (urinary tract infection) acute March 20, 2025 10:40am [facility] Work Phone: 1([phone]) 365-221606-05-2025 Evaluation note* Diagnosis Onset Date Resolution Status Admit Date Fatigue acute January 05, 2025 9:25am CKD (chronic kidney disease) , stage III chronic January 05, 2025 9:25am 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 chronic January 05, 2025 9:25am Longstanding persistent atri al fibrillation chronic January 05, 2025 9:25am Pure hypercholesterolemia chronic January 05, 2025 9:25am Fatigue acute February 22 12:52pm Right ventricular dilation acute February 22, 2025 12:52pm CKD (chronic kidney disease) , stage III chronic February 22, 2025 12:52pm 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 chronic February 22, 2025 12:52pm Longstanding persistent atri al fibrillation chronic February 22, 2025 12:52pm Pure hypercholesterolemia chronic February 22, 2025 12:52pm Fatigue acute February 23 10:52am Hospital discharge follow-up acute February 23, 2025 10:52am 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 chronic February 23, 2025 10:52am Longstanding persistent atri al fibrillation chronic February 23, 2025 10:52am Hematoma of rectus sheath noneactive February 23, 2025 10:52am Insomnia acute March 01 10:52am Hematoma of rectus sheath chronic March 01, 2025 10:52am Hypothyroidism (acquired) chronic March 01, 2025 10:52am Mood disorder chronic March 01, 2025 10:52am Pulmonary hypertension chronic Ju ly 2024 10:52am UTI (urinary tract infection) acute March 20, 2025 10:40am UTI (urinary tract infection) acute April 09, 2025 10:59am [facility] Work Phone: 1(395) 662-892106-05-2025 [facility] [address] [place] [address] OFFICE VISIT Date of Service: 01/05/25 MR#: [id number] Acct: [id number] Name: ANA MARIA AVALOS Rep #: [id number] : 1935 Provider: SANDRA Santiago Age/Sex: 89/F Location: [facility] Status: Signed HPI HPI History of Present Illness Details: ANA MARIA AVALOS, is a 89 F who presents here today for a cardiovascular follow up. She does have a hx of history of persistent chronic atrial fibrillation/flutter, tachycardic induced cardiomyopathy with systolic CHF, aortic valve stenosis (peak gradient 8mmHg), MR/TR, pulmonary hypertension, hyperlipidemia, and hypertension. In the past she did have an evaluation in the past for her cardiac dysrhythmia by? EP for possible ablation therapy.? She states she was thought not to be an ideal candidate.However, they did talk withher about an AV darin ablation. The patient had some medications adjusted were we were treating her LV dysfunction with guideline directed medical therapy and added diltiazem and remove the digoxin. This is allowed for better rate control of her atrial fibrillation and repeat echocardiogram done March 01, 2024 revealed that her EF improved to 57%. She does have moderate 2+ mitral regurgitation and moderate tosevere 3+ tricuspid regurgitation. Right ventricular systolic pressure was estimated 51. Right atrial pressure 15. Pts main complaint is fatigue. She has not get up and go. Intake Vital Signs 10/26/24 11:05 01/05/25 09:29 Height 5 ft 8 in 5 ft 8 in Weight: 149 lb BMI 22.6 BP 105/64 Blood Pressure Location Lt brachial Position Sitting Respiration 18 Pulse 56 L Pulse Source Monitor Intake Visit Reasons: Pt r/s from 01/04 with MH: see clinicals. Pharmacist Per Diem Required: No Is patient in pain?: No Allergies bee venom protein (honey bee) Allergy (Unknown, Verified 01/05/25 09:31) UNKNOWN propoxyphene (From Darvocet-N) Allergy (Unknown, Verified 01/05/25 09:31) UNKNOWN codeine Adverse Reaction (Verified 01/05/25 09:31) Other Medications ?Medication ?Instructions ?Recorded ?Confirmed ?Type ascorbic acid (vitamin C) 500 mg 500 mg PO DAILY@0800 SUPPLEMENT 01/24/15 01/05/25 History tablet vitamin B comp and C no.3 15 mg-10 1 ea PO DAILY SUPPL EMENT 04/24/15 01/05/25 History mg-50 mg-5 mg-300 mg capsule multivitamin 1 ea PO DAILY VITAMIN 01/05/25 History acetaminophen 500 mg tablet 1,000 mg (2 x 500 mg) PO Q 6H PRN 09/11/21 01/05/25 Rx PRN Pain Score 1-5 #0 tabs losartan 50 mg tablet 50 mg PO DAILY #90 tabs 03/0301/05/25 Rx metoprolol tartrate 100 mg tablet 100 mg PO Q12H #180 tabs 05/23/24 01/05/25 Rx atorvastatin 20 mg tablet 20 mg PO QHS CHOLESTEROL #90 tabs 06/16/24 01/05/25 Rx alendronate 70 mg tablet See Rx Instructions .Route 1 08/21/23 01/05/25 Rx .COMPLEX #14 tabs Handicap Placard #1 ea 08/15/24 01/05/25 Rx diltiazem HCl 120 mg 120 mg PO DAILY #90 caps 06/2701/05/25 Rx capsule,extended release 24 hr spironolactone 25 mg tablet 25 mg PO DAILY #30 tabs 01/05/25 Rx warfarin 3 mg tablet 3 mg PO .COMPLEX #180 tabs 0 09/19/24 10/26/24 Rx levothyroxine 112 mcg tablet See Rx Instructions .Rout e 09/26/24 01/05/25 Rx .COMPLEX #90 tabs dapagliflozin propanediol 10 mg 10 mg PO QAM #30 tabs 11/15/24 01/05/25 Rx tablet (Farxiga) Ejection fraction %: 57 Have you fallen in the past year?: Yes (fall 3 weeks ago. unsure if passed out.) [facility] Medical History Elevated C-reactive protein (CRP) Pain in both upper extremities Hemorrhoid CKD (chronic kidney disease), stage III 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 Longstanding persistent atrial fibrillation Foul smelling urine Hx of fracture of femur Dermatitis Nonrheumatic aortic (valve) stenosis Cystitis Osteoporosis Urinary tract infection with hematuria Vision problems Osteopenia Chronic headaches Cataracts, bilateral UTI (urinary tract infection) Back problem Arthritis Seasonal allergies RBBB DDD (degenerative disc disease) Diverticulosis Pure hypercholesterolemia Anemia Pulmonary hypertension Non-rheumatic mitral regurgitation Nonrheumatic tricuspid valve regurgitation Paroxysmal atrial fibrillation Essential hypertension Hyperlipidemia GERD (gastroesophageal reflux disease) Depression Joint pain Headache Snoring Post-nasal drainage Cough Dyspnea on exertion Anxiety Insomnia due to medical condition Hypothyroidism (acquired) Anticoagulation goal of INR 2 to 3 Hypertension Atrial fibrillation with normal ventricular rate 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 Surgical History History of cataract extraction History of cardioversion (~07/15/22) History of total left knee replacement Status post surgical manipulation of ankle joint Status post total left knee replacement Family History Mother Heart disease High cholesterol Osteoporosis CVA (cerebral vascular accident) Hypertension Father Hypertension Alcohol abuse Sister Asthma Hypertension Thyroid disorder Social History household members: none Smoking Status: Never smoker alcohol intake: never substance use type: does not use what type of physical activity do you participate in: none ROS Const Const: Positive for fatigue; Negative for weakness Eyes Eyes: Negative for change in vision ENT ENT: Positive for balance problems; Negative for dizziness Cardio Chest Pain: No Palpitations: Yes (occasionally) feels like its: irregular Edema: None Resp Respiratory: Positive for SOB with activity; Negative for SOB at rest or SOB orthopneaundefinedSOB lying down GI GI: Negative nausea or heartburn Musc Musc: Positive for balance problems Neuro Neuro: Positive for lightheadedness; Negative for dizziness, near syncope, syncope or weakness Endo Endo: Positive for fatigue Cardiology Exam Const Appearance: cooperative, comfortable, no acute distress and well developed Appears much younger than her stated age of 89. Head Head: normal to inspection Eyes General: appearance normal, both eyes and all related structures Neck Neck: normal visual inspection and no JVD Carotids: Negative bruit Chest Chest inspection: normal inspection of the chest Auscultation: Bilateral: Clear to Auscultation Cardio Rate: regular rate Rhythm: irregularly irregular Heart sounds: S1 normal, S2 normal and murmur; Negative rub or gallop Murmur: Grade 2/6, mid systolic, LLSB and RLSB GI GI: normal to inspection Neuro General: patient alert and patient oriented x3 Skin Skin: no rashes or lesions noted Hyperpigmentation on the lower extremities. Extremities Lower Extremity Edema: None: Bilateral Psych Psychological: normal affect Supplemental Info Supplemental Information Echocardiogram done in March 2024 at [facility] demonstrated an ejection fraction of 57%. Left atrium moderately dilated, right atrium dilated. Moderate mitral insufficiency. Moderately severetricuspid insufficiency. RVSP51 mmHg. Echocardiogram 09/29/2023 Normal LV size. The estimated ejection fraction is 35 %. There is moderate global hypokinesis of the left ventricle. Pulmonary artery systolic pressure is 68 mmHg. Moderate pulmonary hypertension. Biatrial enlargement Stress Test 09/29/2023 Conclusion: Normal pharmacologic myocardial perfusion stress test. Reduced ejection fraction. Atrial flutter with 2:1 conduction and or junctional tachycardia. Holter Monitor 01/06/2023 Interpretation Normal sinus rhythm with 33 hours of scan in sinus bradycardia. Rare episodes ofmarked sinus arrhythmia. Longest R-R interval 1.9 seconds. Minimum HR 36 BPM at 3:47:50 AM D1, no activity or symptom recorded. Average HR 58 BPM Maximum HR 86 BPM at 9:58:29 AM D2, no activity or symptom recorded. Rare isolated premature atrial complexes. Rare atrial bigeminy. 77 atrial couplets. 14 runs totaling 58 beats. The longest run was 8 beats of probable ectopic atrial rhythm rate 110 BPM at 9:54:40 PMD2. The fastest run was 4 beatsof probable ectopic atrial tachycardia rate 136 BPM at 1:26:08 AM D2. Rare isolated premature ventricular complexes. One ventricular couplet. No further runs noted. No symptoms documented in 48 hour holter diary. Labs: HDL Cholesterol 59 mg/dL (40-) Cholesterol 128 mg/dL (<=200) Triglycerides 79 mg/dL (-199) Diagnostics: No Data to Display Pulmonary: No Data to Display Past Visits: Cardiology Visit 01/05/25 Assessment and Plan Assessment and Plan (1) Longstanding persistent atrial fibrillation: Status: Chronic Plan: Heart rate is controlled. She will continue with her metoprolol and Coumadin. We manage her INRs. (2) 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: Status: Chronic Plan: Patient's global LV systolic dysfunction has improved to an EF of 57%. She doeshave moderate valvular heart disease with tricuspid and mitral regurgitation as well as some mild aortic stenosis. Patient states that she is significantly better since her medication regimen last year. She will continuewith her metoprolol, losartan, spironolactone, Farxiga. Will continue to monitor echocardiograms asdeemed appropriate. (3) CKD (chronic kidney disease), stage III: Status: Chronic Qualifiers: Chronic kidney disease stage 3 subtype: stage 3b (GFR 30-44) Qualified Code(s): N18.32 - Chronic kidney disease, stage 3b Plan: This is being managed by her primary care doctor. (4) Pure hypercholesterolemia: Status: Chronic Plan: she will continue with her current dose of atorvastatin. Lipids are adequatley controlled. Laboratory Tests 12/02/24 12:46 Cholesterol 128 LDL Cholesterol, Calc 53 HDL Cholesterol 59 (5) Fatigue: Status: Acute Plan: Will stop her diltiazem. She will let us know if this helps. If she still has fatigue will consider decreasing her metoprolol. Plan Details Additional Comments: Thank you for allowing me to participate in the care of your patient. Please don't hesitate to callif any issues arise. This note was generated using a voice recognition system and there may be incorrect words, spelling, or punctuation that were not noted when reviewing theoffice note prior to saving. Portions of this documentation were copied and pasted from previous office visitnotes to provide a cohesive continuity of the history. The note has been reviewed, edited, and updated, as necessary. Follow Up: 3 Months (Susie/JOSEPH) Coding Level of Care Code Off vis,est,level 4 Diagnoses Longstanding persistent atrial fibrillation I48.11 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 I50.40 Stage 3b chronic kidney disease N18.32 Chronic kidney disease stage 3 subtype: stage 3b (GFR 30-44) Pure hypercholesterolemia E78.00 Fatigue R53.83 Coding Level of Care Code Off vis,est,level 4 Diagnoses Longstanding persistent atrial fibrillation I48.11 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 I50.40 Stage 3b chronic kidney disease N18.32 Chronic kidney disease stage 3 subtype: stage 3b (GFR 30-44) Pure hypercholesterolemia E78.00 Fatigue R53.83 Clinical Quality Measures Falls Risk Screening/Assistive Devices Have you fallen in the past year?: Yes (fall 3 weeks ago. unsure if passed out.) Cardiac Ejection fraction %: 57 01/05/25 1007 Sivakumar FLORES> Date _ Eun FLORES Cosigner Signature: Date (if applicable) CC: Dr. Agnieszka Fish MD ~ [facility]03-26-2025 Evaluation note* Diagnosis Onset Date Resolution Status Admit Date CKD (chronic kidney disease) , stage III chronic October 26, 2024 10:57am Heart failure with reduced e jection fraction and diastolic dysfunction chronic October 26, 2024 10:57am Longstanding persistent atri al fibrillation chronic October 26, 2024 10:57am Pure hypercholesterolemia chronic October 26, 2024 10:57am [facility] Work Phone: 1([phone]) 905-315203-26-2025 Evaluation note* Diagnosis Onset Date Resolution Status Admit Date CKD (chronic kidney disease) , stage III chronic October 26, 2024 10:57am Heart failure with reduced e jection fraction and diastolic dysfunction chronic October 26, 2024 10:57am Longstanding persistent atri al fibrillation chronic October 26, 2024 10:57am Pure hypercholesterolemia chronic October 26, 2024 10:57am Fatigue acute January 05, 2025 9:25am CKD (chronic kidney disease) , stage III chronic January 05, 2025 9:25am Heart failure with reduced e jection fraction and diastolic dysfunction chronic January 05, 2025 9:25am Longstanding persistent atri al fibrillation chronic January 05, 2025 9:25am Pure hypercholesterolemia chronic January 05, 2025 9:25am [facility] Work Phone: 1(210) 415-688803-26-2025 Evaluation note* Diagnosis Onset Date Resolution Status Admit Date CKD (chronic kidney disease) , stage III chronic October 26, 2024 10:57am Heart failure with reduced e jection fraction and diastolic dysfunction chronic October 26, 2024 10:57am Longstanding persistent atri al fibrillation chronic October 26, 2024 10:57am Pure hypercholesterolemia chronic October 26, 2024 10:57am Fatigue acute January 05, 2025 9:25am CKD (chronic kidney disease) , stage III chronic January 05, 2025 9:25am Heart failure with reduced e jection fraction and diastolic dysfunction chronic January 05, 2025 9:25am Longstanding persistent atri al fibrillation chronic January 05, 2025 9:25am Pure hypercholesterolemia chronic January 05, 2025 9:25am Fatigue acute February 22 12:52pm Right ventricular dilation acute February 22, 2025 12:52pm CKD (chronic kidney disease) , stage III chronic February 22, 2025 12:52pm Heart failure with reduced e jection fraction and diastolic dysfunction chronic February 22, 2025 12:52pm Longstanding persistent atri al fibrillation chronic February 22, 2025 12:52pm Pure hypercholesterolemia chronic February 22, 2025 12:52pm [facility] Work Phone: 1(579) 529-594601-30-2025 Evaluation note* Diagnosis Onset Date Resolution Status Admit Date Essential hypertension [facility] 2024 2:09pm 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 chronic September 01 2:09pm Hemorrhoid chronic September 01, 2024 2:09pm Hypothyroidism chronic September 012024 2:09pm Osteoporosis chronic August 2:09pm Pain in both upper extremities chron ic September 01, 2024 2:09pm CKD (chronic kidney disease) , stage III chronic October 26, 2024 10:57am 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 chronic October 26, 2024 10:57am Longstanding persistent atri al fibrillation chronic October 26, 2024 10:57am Pure hypercholesterolemia chronic October 26, 2024 10:57am [facility] Work Phone: [phone]) 114-588007-30-2024 History of Present illness Narrative* Reno Dukes MD - 03/01/2024 2:15 PM EDT Images from the original note were not included. Heart [facility] [place] SECTION OF HEART FAILURE and CARDIAC TRANSPLANT MEDICINE OUTPATIENT VISIT DATE March 01, 2024 OUTPATIENT VISIT TYPE Consultation PRIMARY CARE PHYSICIAN: Agnieszka Fish (Kathryn) [address] [place] [address] CHIEF COMPLAINT: Some fatigue NURSING INTAKE (Patient s concerns and/or recent hospitalizations/ER visits): Ana Maria Cristal Robbie is being referred by Dr. Edmond for optimization of GDMT, consider transition toEntresto. 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 This winter experienced shortness of breath, fatigue, and dizziness. Echo done at [facility] in october of this year, reports EF was 30%. HF Nursing Assessment: Interim Hospitalizations and/or ER visits: no Chest Pain: no Skipping or irregular heartbeats: yes, occasionally. Has improved since the winter. Happen with exertion or at rest Shortness of breath at rest: no Shortness of breath with activity: yes Cough: no Waking up in the middle of the night gasping for air: no Lightheadedness or dizziness: yes Feeling like you are going to pass out: no Actually passing out: no Poor energy level: improved Unintentional weight gain: no Unintentional weight loss: no Swelling in your legs,feet, abdomen: no Filling up quickly when you eat: no Exercise: gardening/house work HISTORY OF PRESENT ILLNESS: 88 year old female Long standing a fib, now chronic, on warfarin and rate control HFpEF, on lasix and jardiance (SGLT started in Spring after low EF found) Essential hypertension She had an echo in Sep 2023 in [place] reportedly showing EF of 30%, we do not have any images and I do not see an official report. At that time, her metoprolol was changed to short acting 100 mg bid, cardizem was added, jardiance,and spironolatone. Her losartan dose stayed stable. This improved some SOB and fatigue she was having and can now do much more, although still not where she wants to be. She was sent back to [facility] main to see EP, holter showed average HR 82 with no sig juan or tachy Sent to me today with concomitant echo to opine on medical therapy PAST MEDICAL HISTORY Diagnosis Date Ankle fracture [...] BREAST PERC VACUUM/ROTN 12/27/2009 CARDIOVERSION 03/03/2011 In [place] OPEN TX FEMORAL SUPRACONDYLAR FRACTURE W/XTN Left 08/29/2021 PAST SURGICAL HISTORY OF right ankle ORIF for triamalleolar fracture S $ KNEE TOTAL ARTHR PRASHANTH Left 05/07/2015 [facility] [place]. LTK replacement arthroplasty SIGMOIDOSCOPY FLX DX W/COLLJ SPEC BR/WA IF PFRMD 08/03/1999 Sigmoidoscopy SOCIAL HISTORY Social History Tobacco Use Smoking status: Never Smokeless tobacco: Never Vaping Use Vaping Use: Never used Substance Use Topics Alcohol use: Yes Comment: Rarely Drug use: No FAMILY HISTORY Problem Relation Age of Onset Hypertension Mother Arthritis Mother Hypertension Sister Asthma Sister Osteoporosis Paternal Aunt ALLERGIES: ALLERGIES Allergen Reactions Codele Trejo A500 [Prop* Intolerance CURRENT MEDICATIONS: furosemide (LASIX) 20 mg tablet Take 40 mg by mouth once daily. spironolactone (ALDACTONE) 25 mg tablet Take 25 mg by mouth once daily. alendronate (FOSAMAX) 70 mg tablet Take 1 tablet by mouth one time a week. On Saturdays Cholecalciferol, Vitamin D3, (VITAMIN D-3) 50 mcg (2,000 unit) cap Take 4,000 Units by mouth once daily. cyanocobalamin (VITAMIN B-12) 1,000 mcg tab Take 1,000 mcg by mouth once daily. FOLIC ACID ORAL Take 400 mcg by mouth once daily. Qldyw-3-JNR-EPA-Fish Oil (FISH OIL) 1,000 mg (120 mg-180 mg) cap Take 2 g by mouth two times a day. metoprolol tartrate, short acting, (LOPRESSOR) 100 mg tablet Take 100 mg by mouth two times a day. dilTIAZem ER (CARDIZEM SR) 120 mg 12 hr capsule Take 120 mg by mouth once daily. Takes midday levothyroxine (SYNTHROID) 112 mcg tablet Take 112 mcg by mouth daily before breakfast. empagliflozin (JARDIANCE) 10 mg tablet Take 10 mg by mouth daily with breakfast. potassium chloride ER (K-DUR, KLOR-CON) 20 mEq tablet Take 1 tablet by mouth twice daily. (Patient taking differently: Take 40 mEq by mouth once daily.) warfarin (COUMADIN) 3 mg tablet Take 3 mg by mouth daily as directed. losartan (COZAAR) 50 mg tablet Take 1 tablet by mouth once daily. atorvastatin (LIPITOR) 20 mg tablet Take 1 tablet by mouth once daily. acetaminophen (TYLENOL) 325 mg tablet Take 650 mg by mouth every 4 hours as needed. aspirin EC (ASPIR-81) 81 mg ORAL TbEC Take 81 mg by mouth once daily. ascorbic acid(VITAMIN C 500 MG TAB) Take 1,000 mg by mouth daily at bedtime. GLUCOSAMINE CHONDROITIN MAXSTR 500 MG-400 MG CAP Take two (2) tablet three times daily. MULTIVITAMIN TAB Take one(1) tablet daily. CALCIUM + D 600 MG-200 UNIT TAB Take one(1) tablet two(2) times daily. B COMPLEX TAB Take 1 tablet by mouth once daily. betamethasone valerate (BETA-CHERYL) 0.1 % cream Apply 1 application to affected area three times daily as needed. REVIEW OF SYSTEMS: CONSTITUTION: Negative for: Fever, Night sweats and Recent weight change HEENT: Negative for: Hearing loss RESPIRATORY: Negative for: Cough and Difficulty breathing GASTROINTESTINAL: Negative for: Melena, Nausea, Diarrhea, Abdominal distention and Early satiety MUSCULOSKELETAL: NEUROLOGICAL: Negative for: Headaches and Dizziness SKIN: Negative for: Rash EYES: Negative for: Visual disturbance CARDIOVASCULAR: Positive for: Arrhythmia Negative for: Chest pain, Leg swelling and Pre-syncope GENITOURINARY: PHYSICAL EXAMINATION: BP 118/85 (BP Site: Left Arm, BP Position: Sitting, BP Cuff Size: Regular Adult) Pulse 67 Ht 172.7 cm (5' 8) Wt 65.4 kg (144 lb 3.2 oz) SpO2 97% BMI 21.93 kg/m General: Well appearing, in no acute distress Skin: No clubbing, no cyanosis Eyes: Extra ocular movements intact Oropharynx: Teeth in good repair Neck: JVP is 12-14 cm h20 with large V waves no carotid bruits, carotids have a normal upstroke, nopalpable thyromegaly. Lungs: Dec BS right base Heart: irregular rhythm, mild RV lift, 2/6 systolic murmur at LLSB Abdomen: Soft, nontender, bowel sounds normal, no palpable organomegaly, no bruits, mildly pulsatile liver Extremities: trace peripheral edema . Grade 2/4 distal pulses bilaterally. Neuro: Oriented to person, place and time, alert, cooperative, gait coordinated. CARDIOVASCULAR MEDICINE TESTING: Last ECHO Result Conclusion ECHO Collected: 03/01/2024 12:07 PM (Final result) Impression: CONCLUSIONS: - Exam indication: Nonsustained atrial fibrillation - The left ventricle is small. Left ventricular systolic function is normal. EF = 57 5% (2D biplane) Left ventricular diastolic function [...] and RV systolic function appear slightly worse. 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 The current medical program includes Rate control of A fib: Metoprolol 100 mg bid and Cardizem SR 120 mg with average HR 80s on holter HFpEF: jardiance, spironolatone, lasix 40 mg / 20 mg with euvolemic by exam for her physiology Hypertension: Losartan, cardizem At this point, no indication to change ARB to Entresto Long talk about atrial TR and joint terminal attack controller remodeling of the RV over time. At this point, would not change any meds. If in the future has right sided HF, can switch cardizem to digoxin as was being contemplated by her local physicians in Sep 2023. PLAN AND RECOMMENDATIONS: no changes Follow up in 6 months I personally interviewed, confirmed and edited the above information as obtained by others I personally spent 65 minutes in total time involved in the management and care of this patient. Wediscussed natural history of disease, current treatment options, and future potential treatment options. We discussed diet, exercise, other non-medical management as above. [facility] Section Of Heart Failure and Cardiac Transplant Medicine Heart [facility] [place] Desk [id number] [place] [address] documented in this encounterKettering [facility] Hospital07-30-2024 NoteHNO ID: [id number] Author: RENO DUKES MD Service: ? Author Type: Physician Type: Progress Notes Filed: 03/01/2024 18:19 Note Text: [facility] SECTION OF HEART FAILURE and CARDIAC TRANSPLANT MEDICINE OUTPATIENT VISIT DATE March 01, 2024 OUTPATIENT VISIT TYPE Consultation PRIMARY CARE PHYSICIAN: Agnieszka Fish (Kathryn) [address] [place] [address] CHIEF COMPLAINT: Some fatigue NURSING INTAKE (Patient?s concerns and/or recent hospitalizations/ER visits): Ana Maria Avalos is being referred by Dr. Edmond for optimization of GDMT, consider transition to Entresto. 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 This winter experienced shortness of breath, fatigue, and dizziness. Echo done at [facility] in october of this year, reports EF was 30%. HF Nursing Assessment: Interim Hospitalizations and/or ER visits: no Chest Pain: no Skipping or irregular heartbeats: yes, occasionally. Has improved since the winter. Happen with exertion or at rest Shortness of breath at rest: no Shortness of breath with activity: yes Cough: no Waking up in the middle of the night gasping for air: no Lightheadedness or dizziness: yes Feeling like you are going to pass out: no Actually passing out: no Poor energy level: improved Unintentional weight gain: no Unintentional weight loss: no Swelling in your legs,feet, abdomen: no Filling up quickly when you eat: no Exercise: gardening/house work HISTORY OF PRESENT ILLNESS: 88 year old female Long standing a fib, now chronic, on warfarin and rate control HFpEF, on lasix and jardiance (SGLT started in Spring after low EF found) Essential hypertension She had an echo in Sep 2023 in [place] reportedly showing EF of 30%, we do not have any images and I do not see an official report. At that time, her metoprolol was changed to short acting 100 mg bid, cardizem was added, jardiance, and spironolatone. Her losartan dose stayed stable. This improved some SOB and fatigue she was having and can now do much more, although still not where she wants to be. She was sent back to [facility] main to see EP, holter showed average HR 82 with no sig juan or tachy Sent to me today with concomitant echo to opine on medical therapy PAST MEDICAL HISTORY Diagnosis Date Ankle fracture [...] BREAST PERC VACUUM/ROTN 12/27/2009 CARDIOVERSION 03/03/2011 In [facility] [place] FEMORAL SUPRACONDYLAR FRACTURE W/XTN Left 08/29/2021 PAST SURGICAL HISTORY OF right ankle ORIF for triamalleolar fracture S $ KNEE TOTAL ARTHR PRASHANTH Left 05/07/2015 [facility] [place]. LTK replacement arthroplasty SIGMOIDOSCOPY FLX DX W/COLLJ SPEC BR/WA IF PFRMD 08/03/1999 Sigmoidoscopy SOCIAL HISTORY Social History Tobacco Use Smoking status: Never Smokeless tobacco: Never Vaping Use Vaping Use: Never used Substance Use Topics Alcohol use: Yes Comment: Rarely Drug use: No FAMILY HISTORY Problem Relation Age of Onset Hypertension Mother Arthritis Mother Hypertension Sister Asthma Sister Osteoporosis Paternal Aunt ALLERGIES: ALLERGIES Allergen Reactions Codeine Hives Darvocet A500 [Prop* Intolerance CURRENT MEDICATIONS: furosemide (LASIX) 20 mg tablet Take 40 mg by mouth once daily. spironolactone (ALDACTONE) 25 mg tablet Take 25 mg by mouth once daily. alendronate (FOSAMAX) 70 mg tablet Take 1 tablet by mouth one time a week. On Saturdays Cholecalciferol, Vitamin D3, (VITAMIN D-3) 50 mcg (2,000 unit) cap Take 4,000 Units by mouth once daily. cyanocobalamin (VITAMIN B-12) 1,000 mcg tab Take 1,000 mcg by mouth once daily. FOLIC ACID ORAL Take 400 mcg by mouth once daily. Oajzt-1-TJA-EPA-Fish Oil (FISH OIL) 1,000 mg (120 mg-180 mg) cap Take 2 g by mouth two times a day. metoprolol tartrate, short acting, (LOPRESSOR) 100 mg tablet Take 100 mg by mouth two times a day. dilTIAZem ER (CARDIZEM SR) 120 mg 12 hr capsule Take 120 mg by mouth once daily. Takes midday levothyroxine (SYNTHROID) 112 mcg tablet Take 112 mcg by mouth daily before breakfast. empagliflozin (JARDIANCE) 10 mg tablet Take 10 mg by mouth daily with breakfast. potassium chloride ER (K-DUR, KLOR-CON) 20 mEq tablet Take 1 tabl (more content not included)...[facility]05-23-2024 NoteHNO ID: [id number] Author: ELA RIVERA Tech Service: ? Author Type: Technologist Type: Progress Notes Filed: 12/24/2023 14:24 Note Text: HOLTER MONITOR APPLICATION Patient Name: Ana Maria Avalos [facility] Number: [id number] Chest is cleansed with alcohol Skin prep applied Electrodes place on chest and stress loops secured with tape Fresh battery inserted in monitor Holter monitor secured to patient with waist or shoulder straps Patient instructed 1.) Diary documentation 2.) Usage of event button 3.) Maintenance and care of monitor 4.) Safety issues with monitor 5.) Return unit in 24 hours or 48 hours 6.) Call with problems [phone] OR [phone] Patient expresses good verbal understanding of instructions Amrik LugoOhio[facility]05-23-2024 History of Present illness Narrative* Ela Rivera Tech - 12/24/2023 2:24 PM EDT HOLTER MONITOR APPLICATION Patient Name: Ana Maria Avalos [facility] Number: [id number] Chest is cleansed with alcohol Skin prep applied Electrodes place on chest and stress loops secured with tape Fresh battery inserted in monitor Holter monitor secured to patient with waist or shoulder straps Patient instructed 1.) Diary documentation 2.) Usage of event button 3.) Maintenance and care of monitor 4.) Safety issues with monitor 5.) Return unit in 24 hours or 48 hours 6.) Call with problems [phone] OR [phone] Patient expresses good verbal understanding of instructions Amrik Lugo documented in this [facility]05-23-2024 NoteEducation (CARDMN) ANA MARIA AVALOS ([id number]) 1935 F Date Time Provider Department 12/24/23 1:45 PM ARRHYTHMIA MONITORING LAB CARDMN Reason for Visit: Holter Monitor Application [261] Cmt: 24-HR Visit Diagnosis:Atrial fibrillation, persistent (HCC) [I48.19] Order(s):HOLTER MONITOR 24 HOUR [[id number]] Order #: [id number] During your visit today, we recorded the following information about you: Allergies As of Date: 12/24/2023 Noted Allergy Reaction CODEINE 06/20/2005 4 - Hives DARVOCET A500 (PROPOXYPHENE N-CARLINE*06/20/2005 5 - Intolerance Date Reviewed: 12/24/2023 Reviewed by: Cecilia Mccann RN - Fully Assessed Prescriptions as of 12/24/2023 - metoprolol tartrate, short acting, (LOPRESSOR) 100 mg tablet Take 100 mg by mouth once daily. - dilTIAZem ER (CARDIZEM SR) 120 mg 12 hr capsule Take 120 mg by mouth once daily. - levothyroxine (SYNTHROID) 112 mcg tablet Take 112 mcg by mouth daily before breakfast. - empagliflozin (JARDIANCE) 10 mg tablet Take 10 mg by mouth daily with breakfast. - potassium chloride ER (K-DUR, KLOR-CON) 20 mEq tablet Take 1 tablet by mouth twice daily. - warfarin (COUMADIN) 3 mg tablet Take 3 mg by mouth daily as directed. Take 1.5 tabs (4.5 mg) Thursday and Thursday. All other days take 2 tablets (6mg). Per [facility] in [place]- pt filled prescription June 26, 2021. - losartan (COZAAR) 50 mg tablet Take 1 tablet by mouth once daily. - furosemide (LASIX) 20 mg tablet Take 2 tabs in the AM, 1 tab in the PM - atorvastatin (LIPITOR) 20 mg tablet Take 1 tablet by mouth once daily. - betamethasone valerate (BETA-CHERYL) 0.1 % cream Apply 1 application to affected area three times daily as needed. - acetaminophen (TYLENOL) 325 mg tablet Take 650 mg by mouth every 4 hours as needed. - aspirin EC (ASPIR-81) 81 mg ORAL TbEC One tablet daily - ascorbic acid(VITAMIN C 500 MG TAB) Take one(1) tablet daily. - GLUCOSAMINE CHONDROITIN MAXSTR 500 MG-400 MG CAP Take two (2) tablet three times daily. - MULTIVITAMIN TAB Take one(1) tablet daily. - CALCIUM + D 600 MG-200 UNIT TAB Take one(1) tablet two(2) times daily. - B COMPLEX TAB Take one(1) tablet daily. Encounter Status:Closed by ELA RIVERA on 12/24/23[facility] 12-24-2023 History of Present illness Narrative* Danny Edmond MD - 12/24/2023 12:45 PM EDT Images from the original note were not included. [facility] Department of Cardiovascular Medicine SECTION OF CARDIAC PACING and ELECTROPHYSIOLOGY OUTPATIENT VISIT DATE December 24, 2023 OUTPATIENT VISIT TYPE NEW PRIMARY CARE PHYSICIAN: Agnieszka Fish (Kathryn) [address] [facility] [place] [address] REFERRING PHYSICIAN: PENNY LLOYD [address] [place] [address] [place] [id number] CHIEF COMPLAINT: Persistent atrial fibrillation HISTORY OF PRESENT ILLNESS: Ms. Avalos is a 88 year old female who presents today for evaluation of atrial fibrillation. She has a past medical history of hypertension, hyperlipidemia, persistent atrial fibrillation, andhypothyroidism. She was an established patient of [place] Edmond last seen in December 2017, she had underwent several cardioversion and attempted drug loading with Tikosyn but this was not tolerated due to prolonged QT. She was previously managed with amiodarone since November 2015. She has discussed AVN and PPM implant. She followed with her local provider and had amiodarone stopped due to persistent atrial fibrillation. She has been expressing concern related to worsening symptoms with her locla provider who advised an evaluation at [facility]. Patient states that she has been experiencing shortness of breath, low energy level, lightheadedness, and a decreased activity tolerance. She denies abdominal distention, edema, palpitations, PND, orsyncope. She finds herself significantly limited with activity finding she frequently needs to takebreaks from exertion. PAST MEDICAL HISTORY Diagnosis Date Ankle fracture October trimalleolar fracture right ankle (11/02 suregery) Arthritis Atrial fibrillation (HCC) INR goal 2.5-3.5 Degeneration of intervertebral disc, site unspecified DDD; had sciatica in her 40's Disorder of bone and cartilage, unspecified osteopenia Diverticulosis of colon (without mention of hemorrhage) Essential hypertension, benign History of total left knee replacement Nontoxic multinodular goiter Pure hypercholesterolemia Unspecified hypothyroidism PAST SURGICAL HISTORY Procedure Laterality Date BX BREAST PERC VACUUM/ROTN 12/27/2009 CARDIOVERSION 03/03/2011 In [place] OPEN TX FEMORAL SUPRACONDYLAR FRACTURE W/XTN Left 08/29/2021 PAST SURGICAL HISTORY OF right ankle ORIF for triamalleolar fracture S $ KNEE TOTAL ARTHR PRASHANTH Left 05/07/2015 [facility] Marisa. LTK replacement arthroplasty SIGMOIDOSCOPY FLX DX W/COLLJ SPEC BR/WA IF PFRMD 08/03/1999 Sigmoidoscopy SOCIAL HISTORY Social History Tobacco Use Smoking status: Never Smokeless tobacco: Never Vaping Use Vaping Use: Never used Substance Use Topics Alcohol use: Yes Comment: Rarely Drug use: No FAMILY HISTORY Problem Relation Age of Onset Hypertension Mother Arthritis Mother Hypertension Sister Asthma Sister Osteoporosis Paternal Aunt ALLERGIES: ALLERGIES Allergen Reactions Bees Codeine Darvocet A500 [Prop* Environmental [Othe* MEDICATIONS: potassium chloride ER (K-DUR, KLOR-CON) 20 mEq tablet Take 1 tablet by mouth twice daily. warfarin (COUMADIN) 3 mg tablet Take 3 mg by mouth daily as directed. Take 1.5 tabs (4.5 mg) nd Thursday. All other days take 2 tablets (6mg). Per [facility] in [place]- pt filled prescriptionJune 26, 2021. losartan (COZAAR) 50 mg tablet Take 1 tablet by mouth once daily. (Patient taking differently: Take25 mg by mouth once daily.) furosemide (LASIX) 20 mg tablet Take 2 tabs in the AM, 1 tab in the PM atorvastatin (LIPITOR) 20 mg tablet Take 1 tablet by mouth once daily. betamethasone valerate (BETA-CHERYL) 0.1 % cream Apply 1 application to affected area three times daily as needed. acetaminophen (TYLENOL) 325 mg tablet Take 650 mg by mouth every 4 hours as needed. aspirin EC (ASPIR-81) 81 mg ORAL TbEC One tablet daily ascorbic acid(VITAMIN C 500 MG TAB) Take one(1) tablet daily. GLUCOSAMINE CHONDROITIN MAXSTR 500 MG-400 MG CAP Take two (2) tablet three times daily. MULTIVITAMIN TAB Take one(1) tablet daily. CALCIUM + D 600 MG-200 UNIT TAB Take one(1) tablet two(2) times daily. B COMPLEX TAB Take one(1) tablet daily. metoprolol tartrate, short acting, (LOPRESSOR) 100 mg tablet Take 100 mg by mouth once daily. dilTIAZem ER (CARDIZEM SR) 120 mg 12 hr capsule Take 120 mg by mouth once daily. levothyroxine (SYNTHROID) 112 mcg tablet Take 112 mcg by mouth daily before breakfast. empagliflozin (JARDIANCE) 10 mg tablet Take 10 mg by mouth daily with breakfast. Cecilia Mccann RN PHYSICAL EXAMINATION: BP 131/76 Pulse 89 Ht 172.7 cm (5' 8) Wt 68 kg (150 lb) BMI 22.81 kg/m Echocardiogram 09/2023: Left Ventricle: Normal Lv size. The estimated ejection fraction is 35%. There is moderate global hypokinesis of the left ventricle. Right Ventricle: Normal RV size. Normal systolic function. Atri: The left atrium is severely enlarged. Mitral valve: there is mild to moderate mitral annular calcification. Mild eccentric mitral valve insufficiency. Tricuspid Valve: Normal tricuspid valve. Moderate tricuspid valve insufficiency. Pulmonary artery systolic pressure is 68 mmHg. Moderate pulmonary hypertension. Pulmonic Valve: Normal pulmonic valve. Great Vessels: Normal aortic root. The pulmonary artery is normal in size. The inferior vena cava is dilated. EP STAFF NOTE: Please note: This note has been produced using speech recognition software and may contain errors related to that system including grammar, punctuation, spelling, gender and words and phrases that may be inappropriate Consultation initially requested by Davina for an opinion regarding management of AF I have reviewed the above information and examined the patient and confirm the above with the following additions/modifications. ECG: PE: Vitals: BP 131/76 Pulse 89 Ht 172.7 cm (5' 8) Wt 68 kg (150 lb) BMI 22.81 kg/m General: Appears well nourished. In no acute distress. Skin: No clubbing. No cyanosis. Eyes: EOMI Oropharynx: No oral lesions. Neck: no JVD. giant Lungs: Unlabored Heart: IRIR Abdomen: nontender Extremities: venous stasis No peripheral edema bilaterally. Neuro: Oriented x3, alert, cooperative, gait coordinated. PROBLEM LIST: Persistent AF - Dx 12/2010, symptomatic, initially presented with a rapid ventricular rate, somewhatdifficult to rate control On Flecainide 2012 to 2015 Recurrent AF -2015. Admitted to [facility] at that time for dofetilide initiation and therapeutic drug monitoring. QT prolongation on Tikosyn. Unable to tolerate. Started on Amiodarone at that time. Recurrent, symptomatic AF - requiring DCC. Thus far maintaining NSR. significant pulmonary hypertension DLCO 64% DLCO 60% CHADS VASc score Age x2, HTN, female - 5 - on coumadin JOEL at [place] 02-14-11: smoke and a possible fibrinous clot in the left atrial appendage - DCC aborted, inr goal increased to 2.5-3.5 Repeat JOEL at [facility] main : CONCLUSIONS: - Exam indication: atrial fibrillation - The left ventricle is normal in size. EF = 45 5% (visual est.) - The right ventricle is normal in size. Right ventricular systolic function is mildly decreased. - There is moderate (2+) mitral valve regurgitation. - There is moderately severe (3+) tricuspid valve regurgitation. Severely dilated right atrium. Interatrial septum bowing into left atrium suggestive of high right atrial pressures. IVC is dilated with no respiratory variation suggesting RA pressure >15 mmHg. Moderate 2+ mitral regurgitation due to annular dilatation Moderately severe 3+ tricuspid regurgitation with hepatic vein systolic flow reversal, however no RV dilation. dyslipidemia hypothyroidism TTE : - The left ventricle is normal in size. There is mild concentric left ventricular hypertrophy. Leftventricular systolic function is normal. EF = 55 5% (visual est.) Left ventricular diastolic function was not evaluated due to severe MR and AF. - The right ventricle is normal in size. Right ventricular systolic function is normal. - The left atrial cavity is severely dilated. - The right atrial cavity is severely dilated. - There is moderate (2+ - 3+) mitral valve regurgitation. Regurgitant orifice area (PISA) is 0.34 cm . - There is moderately severe (3+) tricuspid valve regurgitation. - Estimated right ventricular systolic pressure is 68 mmHg consistent with moderately severe pulmonary hypertension. Estimated right atrial pressure is 10 mmHg. - Exam was compared with the prior echocardiographic exam performed on 06/24/2016. Probably no significant change. RVSP is slightly lower. TTE 2019: - The left ventricle is normal in size. Left ventricular systolic function is normal. EF = 66 5% (2D biplane) Indeterminate left ventricular diastolic dysfunction. - The right ventricle is normal in size. Right ventricular systolic function is normal. - The left atrial cavity is moderately dilated. - The right atrial cavity is dilated. - There is moderate (2+ - 3+) mitral valve regurgitation. Regurgitant orifice area (PISA) is 0.11 cm . - There is moderate (2+ - 3+) tricuspid valve regurgitation. - Estimated right ventricular systolic pressure is 74 mmHg consistent with moderately severe pulmonary hypertension. Estimated right atrial pressure is 15 mmHg based on IVC assessment. - Exam was compared with the prior echocardiographic exam performed on 04/01/2017, no significant change. IMPRESSION / PLAN: 88 y/o with recurrent, persistent, symptomatic AF in the setting of significant structural heart disease with moderately severe MR / TR, massive AMENA and moderately severe pHTN. She was started on Amiodarone after failing Tikosyn due to QT prolongation. She has known pHTN with a reduced DLCO - followed by pulmonology. DLCO is reduced DLCO 64% DLCO 60% She had her first recurrent of AF and was cardioverted. She felt better in NSR EKG 10-15-17 most consistent with atypical AFL with RVR at 117 bpm. She was last seen in EP clinic by myself in 2010. She is referred back in 2018 to discuss the potential for ablation / PVI. R/B reviewed. Efficacy is likely to be limited based on her advanced valve Dz and massive bi-atrialenlargement. In 2018 I reviewed the option for AVN ablation and PPM implant (His pacing or BiV pacing in the setting of her valve Dz) - which may be the preferred approach due to the limited likelihood for success with PVI. Also discussed the potential for PPM now - with deferred AVN ablation until the need arised. She may benefit from atrial based pacing current for her relative bradycardia. Also would be helpful to monitor for recurrent AF. In 2018 she was very much against an invasive approach of any kind at this time. If her burden of breakthroughs worsens or Dr. Webster recommends stopping Amiodarone do to worseningpulmonary function - she will reconsider. Followed locally since 2018 - now re-referred back to [facility]: LAst DCC monitor suggested she was maintaining NSR: Her Amio was stopped about d/t recurrent AF Rate control / AC used. I suspect that as the Amio wore off - rate control was poor on or about late Jul / early Aug 2023 and by Sep 2023 she was developed a tachy-induced CM with ADSHF: Metoprolol has since been adjusted and Dilt at low dose added. Her rate control appears improved She is feeling better as of recent. Agreed to the following: - Holter to assess rate control - if sub-optimal ? med adjustment versus AVN RFA and PPM placement - Referral to HF for during adjustment of GDMT - ? switch from Cozaar to Entresto. TTE to be updated at time of HF referral - ordered This note was created with electronic dictation and errors in syntax and meaning may have occurred. Danny Edmond MD Pager: [phone] Office: [phone] I personally examined the patient and repeated the delgadillo components of the exam and cardiac history, past medical and surgical history, social and family history. The assessment and plan were formulated and discussed with the patient and family. I spent over 25 minutes (face time) and greater than 50% of this time was spent counseling and/or coordinating the care of the patient with regard the diagnosis and medical regimen Referring Physician: Sharon Velazco MD [id number] [place] [address] Srinath Alba MD [address] [facility] [id number] Primo Webster MD [facility] NoteHNO ID: [id number] Author: DANNY EDMOND MD Service: ? Author Type: Physician Type: Progress Notes Filed: 12/24/2023 15:02 Note Text: [facility] [place] [facility] Department of Cardiovascular Medicine SECTION OF CARDIAC PACING and ELECTROPHYSIOLOGY OUTPATIENT VISIT DATE December 24, 2023 OUTPATIENT VISIT TYPE NEW PRIMARY CARE PHYSICIAN: Agnieszka Fish (Carla) [address] [facility] [place] [address] REFERRING PHYSICIAN: PENNY LLOYD [address] [place] [address] [address] [facility] [address] CHIEF COMPLAINT: Persistent atrial fibrillation HISTORY OF PRESENT ILLNESS: Ms. Avalos is a 88 year old female who presents today for evaluation of atrial fibrillation. She has a past medical history of hypertension, hyperlipidemia, persistent atrial fibrillation, and hypothyroidism. She was an established patient of Madison Edmond last seen in December 2017, she had underwent several cardioversion and attempted drug loading with Tikosyn but this was not tolerated due to prolonged QT. She was previously managed with amiodarone since November 2015. She has discussed AVN and PPM implant. She followed with her local provider and had amiodarone stopped due to persistent atrial fibrillation. She has been expressing concern related to worsening symptoms with her [facility] provider who advised an evaluation at [facility]. Patient states that she has been experiencing shortness of breath, low energy level, lightheadedness, and a decreased activity tolerance. She denies abdominal distention, edema, palpitations, PND, or syncope. She finds herself significantly limited with activity finding she frequently needs to take breaks from exertion. PAST MEDICAL HISTORY Diagnosis Date Ankle fracture October trimalleolar fracture right ankle (11/02 suregery) Arthritis Atrial fibrillation (HCC) INR goal 2.5-3.5 Degeneration of intervertebral disc, site unspecified DDD; had sciatica in her 40's Disorder of bone and cartilage, unspecified osteopenia Diverticulosis of colon (without mention of hemorrhage) Essential hypertension, benign History of total left knee replacement Nontoxic multinodular goiter Pure hypercholesterolemia Unspecified hypothyroidism PAST SURGICAL HISTORY Procedure Laterality Date BX BREAST PERC VACUUM/ROTN 12/27/2009 CARDIOVERSION 03/03/2011 In [facility] [place] FEMORAL SUPRACONDYLAR FRACTURE W/XTN Left 08/29/2021 PAST SURGICAL HISTORY OF right ankle ORIF for triamalleolar fracture S $ KNEE TOTAL ARTHR PRASHANTH Left 05/07/2015 [facility] [place]. LTK replacement arthroplasty SIGMOIDOSCOPY FLX DX W/COLLJ SPEC BR/WA IF PFRMD 08/03/1999 Sigmoidoscopy SOCIAL HISTORY Social History Tobacco Use Smoking status: Never Smokeless tobacco: Never Vaping Use Vaping Use: Never used Substance Use Topics Alcohol use: Yes Comment: Rarely Drug use: No FAMILY HISTORY Problem Relation Age of Onset Hypertension Mother Arthritis Mother Hypertension Sister Asthma Sister Osteoporosis Paternal Aunt ALLERGIES: ALLERGIES Allergen Reactions Bees Codeine Darvocet A500 [Prop* Environmental [Othe* MEDICATIONS: potassium chloride ER (K-DUR, KLOR-CON) 20 mEq tablet Take 1 tablet by mouth twice daily. warfarin (COUMADIN) 3 mg tablet Take 3 mg by mouth daily as directed. Take 1.5 tabs (4.5 mg) Thursday and Thursday. All other days take 2 tablets (6mg). Per [facility] in [place]- pt filled prescription June 26, 2021. losartan (COZAAR) 50 mg tablet Take 1 tablet by mouth once daily. (Patient taking differently: Take 25 mg by mouth once daily.) furosemide (LASIX) 20 mg tablet Take 2 tabs in the AM, 1 tab in the PM atorvastatin (LIPITOR) 20 mg tablet Take 1 tablet by mouth once daily. betamethasone valerate (BETA-CHERYL) 0.1 % cream Apply 1 application to affected area three times daily as needed. acetaminophen (TYLENOL) 325 mg tablet Take 650 mg by mouth every 4 hours as needed. aspirin EC (ASPIR-81) 81 mg ORAL TbEC One tablet daily ascorbic acid(VITAMIN C 500 MG TAB) Take one(1) tablet daily. GLUCOSAMINE CHONDROITIN MAXSTR 500 MG-400 MG CAP Take two (2) tablet three times daily. MULTIVITAMIN TAB Take one(1) tablet daily. CALCIUM + D 600 MG-200 UNIT TAB Take one(1) tablet two(2) times daily. B COMPLEX TAB Take one(1) tablet daily. metoprolol tartrate, short acting, (LOPRESSOR) 100 mg tablet Take 100 mg by mouth once daily. dilTIAZem ER (CARDIZEM SR) 120 mg 12 hr capsule Take 120 mg by mouth once daily. levothyroxine (SYNTHROID) 112 mcg tablet Take 112 mcg by mouth daily before breakfast. empagliflozin (JARDIANCE) 10 mg tablet Take 10 mg by mouth daily with breakfast. Cecilia Mccann RN PHYSICAL EXAMINATION: BP 131/76 Pulse 89 Ht 172.7 cm (5' 8) Wt 68 kg (150 lb) BMI 22.81 kg/m? Echocardiogram 09/2023: Left Ventricle: Normal Lv size. The estimated ejection fraction is 35%. There is m (more content not included)...[facility]05-01-2024 Telephone encounter Note* Telephone Encounter - [place]Piper - 12/02/2023 1:23 PM EDT Images from the original note were not included. Outside EP-42-pgs & Scan Docs Referral- 12/24 (Dr. Eun Lloyd, PA) Office Visit- 12/24 EKG- 24 TTE Echo- 2 Stress Test- 09/26 Holter Report- 12/24 Cardioversion- 07/24 Labs- 11/24 Piper Brito [facility]05-01[facility] Miscellaneous Notes* Telephone Encounter - Piper Rainey - 12/02/2023 1:23 PM EDT Images from the original note were not included. Outside EP-42-pgs & Scan Docs Referral- 12/24 (Dr. Eun Lloyd, PA) Office Visit- 12/24 EKG- 10/24 TTE Echo- 09/26 Stress Test- 09/26 Holter Report- 12/24 Cardioversion- 07/24 Labs- 11/24 Piper Brito documented in [facility] Diagnosis Onset Date Resolution Status Paroxysmal atrial flutter ac [place] Essential hypertension chron ic Non-rheumatic mitral regurgitation chronic Nonrheumatic aortic (valve) stenosis chronic Nonrheumatic tricuspid valve regurgitation chronic Paroxysmal atrial fibrillation chronic Pure hypercholesterolemia ch ronic Debility acute Hyperlipidemia acute Hypokalemia acute Hypothyroidism acute Chronic diastolic congestive heart failure chronic Essential hypertension chron ic Osteoporosis chronic Paroxysmal atrial fibrillation chronic Paroxysmal atrial flutter ac [place] Chronic diastolic congestive heart failure chronic Essential hypertension chron ic Nonrheumatic aortic (valve) stenosis chronic Paroxysmal atrial fibrillation chronic Foul smelling urine acute Hx of fracture of femur acut e GERD (gastroesophageal reflux disease) chronic Osteoporosis chronic Paroxysmal atrial fibrillation [facility] Work Phone: Evaluation note* Diagnosis Onset Date Resolution Status Debility acute Hyperlipidemia acute Hypokalemia acute Hypothyroidism acute Chronic diastolic congestive heart failure chronic Essential hypertension chron ic Osteoporosis chronic Paroxysmal atrial fibrillation chronic Paroxysmal atrial flutter ac [place] Chronic diastolic congestive heart failure chronic Essential hypertension chron ic Nonrheumatic aortic (valve) stenosis chronic Paroxysmal atrial fibrillation chronic Foul smelling urine acute Hx of fracture of femur acut e GERD (gastroesophageal reflux disease) chronic Osteoporosis chronic Paroxysmal atrial fibrillation chronic [facility] Work Phone: Evaluation note* Diagnosis Onset Date Resolution Status Femoral distal fracture acut e Essential hypertension chron ic GERD (gastroesophageal reflux disease) chronic Osteoporosis chronic Paroxysmal atrial fibrillation [facility] Work Phone: Evaluation note* Diagnosis Onset Date Resolution Status Femoral distal fracture acut e Essential hypertension chron ic GERD (gastroesophageal reflux disease) chronic Osteoporosis chronic Paroxysmal atrial fibrillation chronic Renal insufficiency acute Chronic diastolic congestive heart failure chronic Essential hypertension chron ic Nonrheumatic aortic (valve) stenosis chronic Paroxysmal atrial fibrillation chronic Pulmonary hypertension chron ic [facility] Work Phone: Evaluation note* Diagnosis Onset Date Resolution Status Renal insufficiency acute Chronic diastolic congestive heart failure chronic Essential hypertension chron ic Nonrheumatic aortic (valve) stenosis chronic Paroxysmal atrial fibrillation chronic Pulmonary hypertension chron ic Pain of left calf acute Paroxysmal atrial fibrillation chronic Tachycardia noneactive [facility] Work Phone: Evaluation note* Diagnosis Onset Date Resolution Status Renal insufficiency acute Chronic diastolic congestive heart failure chronic Essential hypertension chron ic Nonrheumatic aortic (valve) stenosis chronic Paroxysmal atrial fibrillation chronic Pulmonary hypertension chron ic Pain of left calf acute Paroxysmal atrial fibrillation chronic Tachycardia noneactive Pain of left calf acute Essential hypertension chron ic Osteoporosis chronic Persistent atrial fibrillation [facility] Work Phone: Evaluation note* Diagnosis Onset Date Resolution Status Pain of left calf acute Paroxysmal atrial fibrillation chronic Tachycardia noneactive Pain of left calf acute Essential hypertension chron ic Osteoporosis chronic Persistent atrial fibrillation [facility] Work Phone: Evaluation note* Diagnosis Onset Date Resolution Status Pain of left calf acute Paroxysmal atrial fibrillation chronic Tachycardia noneactive Pain of left calf acute Essential hypertension chron ic Osteoporosis chronic Persistent atrial fibrillation chronic Acute bronchitis noneactive [facility] Work Phone: Evaluation note* Diagnosis Onset Date Resolution Status Pain of left calf acute Essential hypertension chron ic Osteoporosis chronic Persistent atrial fibrillation chronic Acute bronchitis noneactive Essential hypertension chron ic Nonrheumatic aortic (valve) stenosis chronic Paroxysmal atrial fibrillation chronic Pulmonary hypertension chron ic [facility] Work Phone: Evaluation note* Diagnosis Onset Date Resolution Status Acute bronchitis noneactive Essential hypertension chron ic Nonrheumatic aortic (valve) stenosis chronic Paroxysmal atrial fibrillation chronic Pulmonary hypertension [facility] Work Phone: Evaluation note* Diagnosis Onset Date Resolution Status Essential hypertension chron ic Nonrheumatic aortic (valve) stenosis chronic Paroxysmal atrial fibrillation chronic Pulmonary hypertension chron ic Essential hypertension chron ic Hypothyroidism (acquired) ch ronic Osteoporosis chronic Paroxysmal atrial fibrillation chronic Essential hypertension chron ic Hypothyroidism (acquired) ch ronic Nonrheumatic aortic (valve) stenosis chronic Paroxysmal atrial fibrillation chronic Pulmonary hypertension [facility] Work Phone: Evaluation note* Diagnosis Onset Date Resolution Status Essential hypertension chron ic Hypothyroidism (acquired) ch ronic Osteoporosis chronic Paroxysmal atrial fibrillation chronic Essential hypertension chron ic Hypothyroidism (acquired) ch ronic Nonrheumatic aortic (valve) stenosis chronic Paroxysmal atrial fibrillation chronic Pulmonary hypertension [facility] Work Phone: Evaluation noteNo assessment information available [facility] Work Phone: Evaluation note* Diagnosis Onset Date Resolution Status Essential hypertension chron ic Hypothyroidism chronic Osteoporosis chronic Persistent atrial fibrillation chronic Angina at rest acute Longstanding persistent atrial fibrillation acute Essential hypertension chron ic Nonrheumatic aortic (valve) stenosis chronic Pulmonary hypertension [facility] Work Phone: Evaluation note* Diagnosis Atrial fibrillation, unspecified type (HCC)- Primary documented in this encounter [facility]* Diagnosis Atrial fibrillation, persistent (HCC) Atrial fibrillation documented in this encounter [facility]* Diagnosis Atrial fibrillation, persistent (HCC)- Primary Atrial fibrillation Other forms of angina pectoris (HCC) Chronic diastolic CHF (congestive heart failure) (HCC) Chronic diastolic heart failure documented in this encounter [facility]* Diagnosis Chronic diastolic heart failure (HCC)- Primary Chronic diastolic heart failure Atrial fibrillation, chronic (HCC) Atrial fibrillation Tricuspid valve insufficiency, unspecified etiology [facility] Work Phone: Progress note Author Eun Lloyd [facility] Note Date/Time January 05, 2025 10:07 am [facility] [address] [place] [address] OFFICE VISIT Date of Service: 01/05/25 MR#: [id number] Acct: [id number] Name: ANA MARIA AVALOS Rep #: [id number] : 1935 Provider: SANDRA Santiago Age/Sex: 89/F Location: [facility] Status: Signed HPI HPI History of Present Illness Details: ANA MARIA AVALOS, is a 89 F who presents here today for a cardiovascular follow up. She does have a hx of history of persistent chronic atrial fibrillation/flutter, tachycardic induced cardiomyopathy with systolic CHF, aortic valve stenosis (peak gradient 8mmHg), MR/TR, pulmonary hypertension, hyperlipidemia, and hypertension. In the past she did have an evaluation in the past for her cardiac dysrhythmia by? EP for possible ablation therapy.? She states she was thought not to be an ideal candidate. However, they did talk withher about an AV darin ablation. The patient had some medications adjusted were we were treating her LV dysfunction with guideline directed medical therapy and added diltiazem and remove the digoxin. This is allowed for better rate control of her atrial fibrillation and repeat echocardiogram done March 01, 2024 revealed that her EF improved to 57%. She does have moderate 2+ mitral regurgitation and moderate tosevere 3+ tricuspid regurgitation. Right ventricular systolic pressure was estimated 51. Right atrial pressure 15. Pts main complaint is fatigue. She has not get up and go. Intake Vital Signs 10/26/24 11:05 01/05/25 09:29 Height 5 ft 8 in 5 ft 8 in Weight: 149 lb BMI 22.6 BP 105/64 Blood Pressure Location Lt brachial Position Sitting Respiration 18 Pulse 56 L Pulse Source Monitor Intake Visit Reasons: Pt r/s from 01/04 with MH: see clinicals. Pharmacist Per Diem Required: No Is patient in pain?: No Allergies bee venom protein (honey bee) Allergy (Unknown, Verified 01/05/25 09:31) UNKNOWN propoxyphene (From Darvocet-N) Allergy (Unknown, Verified 01/05/25 09:31) UNKNOWN codeine Adverse Reaction (Verified 01/05/25 09:31) Other Medications ?Medication ?Instructions ?Recorded ?Confirmed ?Type ascorbic acid (vitamin C) 500 mg 500 mg PO DAILY@0800 SUPPLEMENT 01/24/15 01/05/25 History tablet vitamin B comp and C no.3 15 mg-10 1 ea PO DAILY SUPPL EMENT 04/24/15 01/05/25 History mg-50 mg-5 mg-300 mg capsule multivitamin 1 ea PO DAILY VITAMIN 01/05/25 History acetaminophen 500 mg tablet 1,000 mg (2 x 500 mg) PO Q 6H PRN 09/11/21 01/05/25 Rx PRN Pain Score 1-5 #0 tabs losartan 50 mg tablet 50 mg PO DAILY #90 tabs 03/0301/05/25 Rx metoprolol tartrate 100 mg tablet 100 mg PO Q12H #180 tabs 05/23/24 01/05/25 Rx atorvastatin 20 mg tablet 20 mg PO QHS CHOLESTEROL #90 tabs 06/16/24 01/05/25 Rx alendronate 70 mg tablet See Rx Instructions .Route 1 08/21/23 01/05/25 Rx .COMPLEX #14 tabs Handicap Placard #1 ea 08/15/24 01/05/25 Rx diltiazem HCl 120 mg 120 mg PO DAILY #90 caps 06/2701/05/25 Rx capsule,extended release 24 hr spironolactone 25 mg tablet 25 mg PO DAILY #30 tabs 01/05/25 Rx warfarin 3 mg tablet 3 mg PO .COMPLEX #180 tabs 0 09/19/24 10/26/24 Rx levothyroxine 112 mcg tablet See Rx Instructions .Rout e 09/26/24 01/05/25 Rx .COMPLEX #90 tabs dapagliflozin propanediol 10 mg 10 mg PO QAM #30 tabs 11/15/24 01/05/25 Rx tablet (Farxiga) Ejection fraction %: 57 Have you fallen in the past year?: Yes (fall 3 weeks ago. unsure if passed out.) [facility] Medical History Elevated C-reactive protein (CRP) Pain in both upper extremities Hemorrhoid CKD (chronic kidney disease), stage III 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 Longstanding persistent atrial fibrillation Foul smelling urine Hx of fracture of femur Dermatitis Nonrheumatic aortic (valve) stenosis Cystitis Osteoporosis Urinary tract infection with hematuria Vision problems Osteopenia Chronic headaches Cataracts, bilateral UTI (urinary tract infection) Back problem Arthritis Seasonal allergies RBBB DDD (degenerative disc disease) Diverticulosis Pure hypercholesterolemia Anemia Pulmonary hypertension Non-rheumatic mitral regurgitation Nonrheumatic tricuspid valve regurgitation Paroxysmal atrial fibrillation Essential hypertension Hyperlipidemia GERD (gastroesophageal reflux disease) Depression Joint pain Headache Snoring Post-nasal drainage Cough Dyspnea on exertion Anxiety Insomnia due to medical condition Hypothyroidism (acquired) Anticoagulation goal of INR 2 to 3 Hypertension Atrial fibrillation with normal ventricular rate 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 Surgical History History of cataract extraction History of cardioversion (~07/15/22) History of total left knee replacement Status post surgical manipulation of ankle joint Status post total left knee replacement Family History Mother Heart disease High cholesterol Osteoporosis CVA (cerebral vascular accident) Hypertension Father Hypertension Alcohol abuse Sister Asthma Hypertension Thyroid disorder Social History household members: none Smoking Status: Never smoker alcohol intake: never substance use type: does not use what type of physical activity do you participate in: none ROS Const Const: Positive for fatigue; Negative for weakness Eyes Eyes: Negative for change in vision ENT ENT: Positive for balance problems; Negative for dizziness Cardio Chest Pain: No Palpitations: Yes (occasionally) feels like its: irregular Edema: None Resp Respiratory: Positive for SOB with activity; Negative for SOB at rest or SOB orthopneaundefinedSOB lying down GI GI: Negative nausea or heartburn Musc Musc: Positive for balance problems Neuro Neuro: Positive for lightheadedness; Negative for dizziness, near syncope, syncope or weakness Endo Endo: Positive for fatigue Cardiology Exam Const Appearance: cooperative, comfortable, no acute distress and well developed Appears much younger than her stated age of 89. Head Head: normal to inspection Eyes General: appearance normal, both eyes and all related structures Neck Neck: normal visual inspection and no JVD Carotids: Negative bruit Chest Chest inspection: normal inspection of the chest Auscultation: Bilateral: Clear to Auscultation Cardio Rate: regular rate Rhythm: irregularly irregular Heart sounds: S1 normal, S2 normal and murmur; Negative rub or gallop Murmur: Grade 2/6, mid systolic, LLSB and RLSB GI GI: normal to inspection Neuro General: patient alert and patient oriented x3 Skin Skin: no rashes or lesions noted Hyperpigmentation on the lower extremities. Extremities Lower Extremity Edema: None: Bilateral Psych Psychological: normal affect Supplemental Info Supplemental Information Echocardiogram done in March 2024 at [facility] demonstrated an ejection fraction of 57%. Left atrium moderately dilated, right atrium dilated. Moderate mitral insufficiency. Moderately severe tricuspid insufficiency. RVSP51 mmHg. Echocardiogram 09/29/2023 Normal LV size. The estimated ejection fraction is 35 %. There is moderate global hypokinesis of the left ventricle. Pulmonary artery systolic pressure is 68 mmHg. Moderate pulmonary hypertension. Biatrial enlargement Stress Test 09/29/2023 Conclusion: Normal pharmacologic myocardial perfusion stress test. Reduced ejection fraction. Atrial flutter with 2:1 conduction and or junctional tachycardia. Holter Monitor 01/06/2023 Interpretation Normal sinus rhythm with 33 hours of scan in sinus bradycardia. Rare episodes ofmarked sinus arrhythmia. Longest R-R interval 1.9 seconds. Minimum HR 36 BPM at 3:47:50 AM D1, no activity or symptom recorded. Average HR 58 BPM Maximum HR 86 BPM at 9:58:29 AM D2, no activity or symptom recorded. Rare isolated premature atrial complexes. Rare atrial bigeminy. 77 atrial couplets. 14 runs totaling 58 beats. The longest run was 8 beats of probable ectopic atrial rhythm rate 110 BPM at 9:54:40 PM D2. The fastest run was 4 beatsof probable ectopic atrial tachycardia rate 136 BPM at 1:26:08 AM D2. Rare isolated premature ventricular complexes. One ventricular couplet. No further runs noted. No symptoms documented in 48 hour holter diary. Labs: HDL Cholesterol 59 mg/dL (40-) Cholesterol 128 mg/dL (<=200) Triglycerides 79 mg/dL (-199) Diagnostics: No Data to Display Pulmonary: No Data to Display Past Visits: Cardiology Visit 01/05/25 Assessment and Plan Assessment and Plan (1) Longstanding persistent atrial fibrillation: Status: Chronic Plan: Heart rate is controlled. She will continue with her metoprolol and Coumadin. We manage her INRs. (2) 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: Status: Chronic Plan: Patient's global LV systolic dysfunction has improved to an EF of 57%. She doeshave moderate valvular heart disease with tricuspid and mitral regurgitation as well as some mild aortic stenosis. Patient states that she is significantly better since her medication regimen last year. She will continue with her metoprolol, losartan, spironolactone, Farxiga. Will continue to monitor echocardiograms as deemed appropriate. (3) CKD (chronic kidney disease), stage III: Status: Chronic Qualifiers: Chronic kidney disease stage 3 subtype: stage 3b (GFR 30-44) Qualified Code(s): N18.32 - Chronic kidney disease, stage 3b Plan: This is being managed by her primary care doctor. (4) Pure hypercholesterolemia: Status: Chronic Plan: she will continue with her current dose of atorvastatin. Lipids are adequatley controlled. Laboratory Tests 12/02/24 12:46 Cholesterol 128 LDL Cholesterol, Calc 53 HDL Cholesterol 59 (5) Fatigue: Status: Acute Plan: Will stop her diltiazem. She will let us know if this helps. If she still has fatigue will consider decreasing her metoprolol. Plan Details Additional Comments: Thank you for allowing me to participate in the care of your patient. Please don't hesitate to call if any issues arise. This note was generated using a voice recognition system and there may be incorrect words, spelling, or punctuation that were not noted when reviewing theoffice note prior to saving. Portions of this documentation were copied and pasted from previous office visitnotes to provide a cohesive continuity of the history. The note has been reviewed, edited, and updated, as necessary. Follow Up: 3 Months (Susie/JOSEPH) Coding Level of Care Code Off vis,est,level 4 Diagnoses Longstanding persistent atrial fibrillation I48.11 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 I50.40 Stage 3b chronic kidney disease N18.32 Chronic kidney disease stage 3 subtype: stage 3b (GFR 30-44) Pure hypercholesterolemia E78.00 Fatigue R53.83 Coding Level of Care Code Off vis,est,level 4 Diagnoses Longstanding persistent atrial fibrillation I48.11 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 I50.40 Stage 3b chronic kidney disease N18.32 Chronic kidney disease stage 3 subtype: stage 3b (GFR 30-44) Pure hypercholesterolemia E78.00 Fatigue R53.83 Clinical Quality Measures Falls Risk Screening/Assistive Devices Have you fallen in the past year?: Yes (fall 3 weeks ago. unsure if passed out.) Cardiac Ejection fraction %: 57 01/05/25 1007 <Electronically signed by Eun Max> Date _ Eun FLORES Cosigner Signature: Date (if applicable) CC: Dr. Agnieszka Fish MD ~ [facility] Work Phone: Reason for referral (narrative)* Outpatient Procedure (Routine) - Authorized Specialty Diagnoses / Procedures Referred By Contac t Referred To [facility] Diagnoses Atrial fibrillation, unspecified type (HCC) Procedures ECG COMPLETE ECG ROUTINE ECG W/LEAST 12 LDS W/I&R Danny Edmond MD [address] [place] [address] [facility] [place] [address] Referral ID Status Reason Start Date Expiration Date Visits Requested Visits Authorized [id number] Authorized Auto-Generat ed Referral 12/02/2023 12/01/2024 1 1 [facility] for referral (narrative)[facility] for [facility] Work Phone: Summary Purpose Family History Relationship Condition Age at Onset Recorded Date/T philip mother Cardiac disease Unknown High blood cholesterol Unknown Osteoporosis Unknown Cerebrovascular accident (CVA) Unknown Hypertension Unknown father Hypertension Unknown Alcohol abuse Unknown sister Asthma Unknown Disorder of thyroid Unknown Advance Directives Advance Directive Response Recorded Date/ Time Advance Directives Yes October 15, 2 018 11:11am Living Will Yes September 04 11:30am Power of Frame Gate Mortiser Operator Yes September 04, 2021 11:30am Advance Directive Response Recorded Date/ Time Advance Directives Yes October 15 018 10:11am Living Will Yes September 04 10:30am Power of Frame Gate Mortiser Operator Yes September 04, 2021 10:30am Advance Directive Response Recorded Date/ Time Advance Directives on File Yes Decem laura 2021 11:12am Name of Medical Power of Frame Gate Mortiser Operator Preston Avalos July 15, 2022 11:12am Advance Directives Yes July 11:12am Living Will Yes July 15 11:12am Power of Frame Gate Mortiser Operator Yes July 15, 2022 11:12am Advance Directive Response Recorded Date/ Time Advance Directives on File Yes Decem 2021 12:12pm Name of Medical Power of Frame Gate Mortiser Operator Preston Avalos July 15, 2022 12:12pm Advance Directives Yes July 12:12pm Living Will Yes July 15 12:12pm Power of Frame Gate Mortiser Operator Yes July 15, 2022 12:12pm Advance Directive Response Recorded Date/ Time Advance Directives Yes July 12:12pm Living Will Yes July 15 12:12pm Power of Frame Gate Mortiser Operator Yes July 15, 2022 12:12pm Advance Directive Response Recorded Date/ Time Advance Directives Yes January 01 3:04pm Living Will Yes January 01, 2023 3 :04pm Power of Frame Gate Mortiser Operator Yes January 01, 2023 3:04pm Advance Directive Response Recorded Date/ Time Advance Directives Yes January 28 10:48am Living Will Yes January 28, 2023 10:48am Power of Frame Gate Mortiser Operator Yes January 28 10:48am Advance Directive Response Recorded Date/ Time Advance Directives Yes January 28 9:48am Living Will Yes January 28, 2023 9:48am Power of Frame Gate Mortiser Operator Yes January 28 9:48am Advance Directive Response Recorded Date/ Time Living Will Yes January 28, 2023 10:48am Do you have a Healthcare Power of Frame Gate Mortiser Operator? Yes January 28, 2023 10:48am Living Will Yes July 03 1:38am Do you have a Healthcare Power of Frame Gate Mortiser Operator? Yes July 03, 2024 1:38am Living Will Yes August 03 1:20am Do you have a Healthcare Power of Frame Gate Mortiser Operator? Yes August 03, 2024 1:20am Living Will Yes September 03 1:45am Do you have a Healthcare Power of Frame Gate Mortiser Operator? Yes September 03, 2024 1:45am Living Will Yes October 01, 2024 1:39am Do you have a Healthcare Power of Frame Gate Mortiser Operator? Yes October 01, 2024 1:39am Advance Directives Yes January 28 10:48am Advance Directive Response Recorded Date/ Time Living Will Yes January 28, 2023 10:48am Do you have a Healthcare Power of Frame Gate Mortiser Operator? Yes January 28, 2023 10:48am Living Will Yes September 03 1:45am Do you have a Healthcare Power of Frame Gate Mortiser Operator? Yes September 03, 2024 1:45am Living Will Yes October 01, 2024 1:39am Do you have a Healthcare Power of Frame Gate Mortiser Operator? Yes October 01, 2024 1:39am Living Will Yes November 01, 2024 12:13am Do you have a Healthcare Power of Frame Gate Mortiser Operator? Yes November 01, 2024 12:13am Living Will Yes December 01, 2024 12 :27am Do you have a Healthcare Power of Frame Gate Mortiser Operator? Yes December 01, 2024 12:27am Advance Directives Yes January 28 10:48am Advance Directive Response Recorded Date/ Time Living Will Yes January 28, 2023 10:48am Do you have a Healthcare Pow er of Frame Gate Mortiser Operator? Yes January 28, 2023 10:48am Living Will Yes October 01, 2024 1:39am Do you have a Healthcare Pow er of Frame Gate Mortiser Operator? Yes October 01, 2024 1:39am Do you have a Healthcare Pow er of Frame Gate Mortiser Operator? Yes January 30, 2025 7:40pm Name of Medical Power of Frame Gate Mortiser Operator preston lawrence January 30, 2025 7:40pm Living Will Yes November 01, 2024 12:13am Do you have a Healthcare Pow er of Frame Gate Mortiser Operator? Yes November 01, 2024 12:13am Living Will Yes December 01, 2024 12 :27am Do you have a Healthcare Pow er of Frame Gate Mortiser Operator? Yes December 01, 2024 12:27am Living Will Yes December 31, 2024 8 :50pm Do you have a Healthcare Pow er of Frame Gate Mortiser Operator? Yes December 31, 2024 8:50pm Advance Directives Yes January 28 10:48am Advance Directive Response Recorded Date/ Time Living Will Yes January 28, 2023 10:48am Do you have a Healthcare Pow er of Frame Gate Mortiser Operator? Yes January 28, 2023 10:48am Do you have a Healthcare Pow er of Frame Gate Mortiser Operator? Yes January 30, 2025 7:40pm Name of Medical Power of Frame Gate Mortiser Operator preston lawrence January 30, 2025 7:40pm Living Will Yes November 01, 2024 12:13am Do you have a Healthcare Pow er of Frame Gate Mortiser Operator? Yes November 01, 2024 12:13am Living Will Yes December 01, 2024 12 :27am Do you have a Healthcare Pow er of Frame Gate Mortiser Operator? Yes December 01, 2024 12:27am Living Will Yes December 31, 2024 8 :50pm Do you have a Healthcare Pow er of Frame Gate Mortiser Operator? Yes December 31, 2024 8:50pm Advance Directives Yes February 10 8:29am Advance Directive Response Recorded Date/ Time Living Will Yes January 28, 2023 10:48am Do you have a Healthcare Pow er of Frame Gate Mortiser Operator? Yes January 28, 2023 10:48am Do you have a Healthcare Pow er of Frame Gate Mortiser Operator? Yes January 30, 2025 7:40pm Name of Medical Power of Frame Gate Mortiser Operator preston lawrence January 30, 2025 7:40pm Living Will Yes November 01, 2024 12:13am Do you have a Healthcare Pow er of Frame Gate Mortiser Operator? Yes November 01, 2024 12:13am Living Will Yes December 01, 2024 12 :27am Do you have a Healthcare Pow er of Frame Gate Mortiser Operator? Yes December 01, 2024 12:27am Living Will Yes December 31, 2024 8 :50pm Do you have a Healthcare Pow er of Frame Gate Mortiser Operator? Yes December 31, 2024 8:50pm Advance Directives Yes January 01 3:04pm Advance Directive Response Recorded Date/ Time Do you have a Healthcare Pow er of Frame Gate Mortiser Operator? Yes January 30, 2025 7:40pm Name of Medical Power of Frame Gate Mortiser Operator preston lawrence January 30, 2025 7:40pm Living Will Yes November 01, 2024 12:13am Do you have a Healthcare Pow er of Frame Gate Mortiser Operator? Yes November 01, 2024 12:13am Living Will Yes December 01, 2024 12 :27am Do you have a Healthcare Pow er of Frame Gate Mortiser Operator? Yes December 01, 2024 12:27am Living Will Yes December 31, 2024 8 :50pm Do you have a Healthcare Pow er of Frame Gate Mortiser Operator? Yes December 31, 2024 8:50pm Advance Directives Yes January 01 3:04pm Advance Directive Response Recorded Date/ Time Do you have a Healthcare Pow er of Frame Gate Mortiser Operator? Yes January 30, 2025 7:40pm Name of Medical Power of Frame Gate Mortiser Operator preston lawrence January 30, 2025 7:40pm Living Will Yes November 01, 2024 12:13am Do you have a Healthcare Pow er of Frame Gate Mortiser Operator? Yes November 01, 2024 12:13am Living Will Yes December 01, 2024 12 :27am Do you have a Healthcare Pow er of Frame Gate Mortiser Operator? Yes December 01, 2024 12:27am Living Will Yes December 31, 2024 8 :50pm Do you have a Healthcare Pow er of Frame Gate Mortiser Operator? Yes December 31, 2024 8:50pm Advance Directives Yes March 01 12:14pm Advance Directive Response Recorded Date/ Time Do you have a Healthcare Pow er of Frame Gate Mortiser Operator? Yes January 30, 2025 7:40pm Name of Medical Power of Frame Gate Mortiser Operator preston lawrence January 30, 2025 7:40pm Living Will Yes December 01, 2024 12 :27am Do you have a Healthcare Pow er of Frame Gate Mortiser Operator? Yes December 01, 2024 12:27am Living Will Yes December 31, 2024 8 :50pm Do you have a Healthcare Pow er of Frame Gate Mortiser Operator? Yes December 31, 2024 8:50pm Advance Directives Yes March 01 12:14pm Advance Directive Response Recorded Date/ Time Do you have a Healthcare Pow er of Frame Gate Mortiser Operator? Yes January 30, 2025 7:40pm Name of Medical Power of Frame Gate Mortiser Operator preston lawrence January 30, 2025 7:40pm Living Will Yes December 31, 2024 8 :50pm Do you have a Healthcare Pow er of Frame Gate Mortiser Operator? Yes December 31, 2024 8:50pm Advance Directives Yes March 01 12:14pm Chief Complaint and Reason for Visit Chief Complaint 7 m fu AFIB S/O EKG, back in a fib M. Lomeli fall LEFT FEMUR FRACTURE GO OVER MEDS. HOME DRAW LAB WORK Hospital S/O HOME DRAW LAB WORK Reason for Visit Paroxysmal atrial fl utter Essential hypertension Non-rheumatic mitral regurgitation Nonrheumatic aortic (valve) stenosis Nonrheumatic tricuspid valve regurgitation Paroxysmal atrial fibrillation Pure hypercholesterolemia Debility Hyperlipidemia Hypokalemia Hypothyroidism Chronic diastolic congestive heart failure Essential hypertension Osteoporosis Paroxysmal atrial fibrillation Paroxysmal atrial flutter Chronic diastolic congestive heart failure Essential hypertension Nonrheumatic aortic (valve) stenosis Paroxysmal atrial fibrillation Foul smelling urine Hx of fracture of femur GERD (gastroesophageal reflux disease) Osteoporosis Paroxysmal atrial fibrillation Chief Complaint S/O EKG, back in a fib M. Lomeli fall LEFT FEMUR FRACTURE GO OVER MEDS. HOME DRAW LAB WORK Hospital S/O HOME DRAW LAB WORK HOMEDRAW LABWORK Reason for Visit Debility Hyperlipidemia Hypokalemia Hypothyroidism Chronic diastolic congestive heart failure Essential hypertension Osteoporosis Paroxysmal atrial fibrillation Paroxysmal atrial flutter Chronic diastolic congestive heart failure Essential hypertension Nonrheumatic aortic (valve) stenosis Paroxysmal atrial fibrillation Foul smelling urine Hx of fracture of femur GERD (gastroesophageal reflux disease) Osteoporosis Paroxysmal atrial fibrillation Chief Complaint S/O EKG, back in a fib M. Lomeli fall LEFT FEMUR FRACTURE GO OVER MEDS. HOME DRAW LAB WORK Hospital S/O HOME DRAW LAB WORK HOMEDRAW LABWORK HOMEDRAW LABWORK Reason for Visit Debility Hyperlipidemia Hypokalemia Hypothyroidism Chronic diastolic congestive heart failure Essential hypertension Osteoporosis Paroxysmal atrial fibrillation Paroxysmal atrial flutter Chronic diastolic congestive heart failure Essential hypertension Nonrheumatic aortic (valve) stenosis Paroxysmal atrial fibrillation Foul smelling urine Hx of fracture of femur GERD (gastroesophageal reflux disease) Osteoporosis Paroxysmal atrial fibrillation Chief Complaint LEFT FEMUR FRACTURE GO OVER MEDS. HOME DRAW LAB WORK Hospital FU S/O HOME DRAW LAB WORK HOMEDRAW LABWORK HOMEDRAW LABWORK HOMEBOUND PATIENT LABWORK S/O Reason for Visit Debility Hyperlipidemia Hypokalemia Hypothyroidism Chronic diastolic congestive heart failure Essential hypertension Osteoporosis Paroxysmal atrial fibrillation Paroxysmal atrial flutter Chronic diastolic congestive heart failure Essential hypertension Nonrheumatic aortic (valve) stenosis Paroxysmal atrial fibrillation Foul smelling urine Hx of fracture of femur GERD (gastroesophageal reflux disease) Osteoporosis Paroxysmal atrial fibrillation Chief Complaint HOMEDRAW LABWORK HOMEDRAW LABWORK HOMEBOUND PATIENT LABWORK S/O S/O 3 M FU Reason for Visit Femoral distal fract ure Essential hypertension GERD (gastroesophageal reflux disease) Osteoporosis Paroxysmal atrial fibrillation Chief Complaint HOMEBOUND PATIENT LA BWORK S/O S/O 3 M FU S/O Reason for Visit Femoral distal fract ure Essential hypertension GERD (gastroesophageal reflux disease) Osteoporosis Paroxysmal atrial fibrillation Chief Complaint S/O S/O 3 M FU S/O 6-9 mo fu INT LABS Reason for Visit Femoral distal fract ure Essential hypertension GERD (gastroesophageal reflux disease) Osteoporosis Paroxysmal atrial fibrillation Renal insufficiency Chronic diastolic congestive heart failure Essential hypertension Nonrheumatic aortic (valve) stenosis Paroxysmal atrial fibrillation Pulmonary hypertension Chief Complaint 3 M FU S/O 6-9 mo fu INT LABS S/O AFIB S/O Reason for Visit Femoral distal fract ure Essential hypertension GERD (gastroesophageal reflux disease) Osteoporosis Paroxysmal atrial fibrillation Renal insufficiency Chronic diastolic congestive heart failure Essential hypertension Nonrheumatic aortic (valve) stenosis Paroxysmal atrial fibrillation Pulmonary hypertension Chief Complaint S/O 6-9 mo fu INT LABS S/O AFIB S/O PAIN IN LEFT LOWER LEG CALF ISSUES S/O Reason for Visit Renal insufficiency Chronic diastolic congestive heart failure Essential hypertension Nonrheumatic aortic (valve) stenosis Paroxysmal atrial fibrillation Pulmonary hypertension Pain of left calf Paroxysmal atrial fibrillation Tachycardia Chief Complaint S/O 6-9 mo fu INT LABS S/O AFIB S/O PAIN IN LEFT LOWER LEG CALF ISSUES S/O EKG to see if a-fib L.Lorson EORDERS afib afib afib afib 6 M FU Reason for Visit Renal insufficiency Chronic diastolic congestive heart failure Essential hypertension Nonrheumatic aortic (valve) stenosis Paroxysmal atrial fibrillation Pulmonary hypertension Pain of left calf Paroxysmal atrial fibrillation Tachycardia Pain of left calf Essential hypertension Osteoporosis Persistent atrial fibrillation Chief Complaint S/O PAIN IN LEFT LOWER LEG CALF ISSUES S/O EKG to see if a-fib L.[place] EORDERS afib afib afib afib 6 M FU Thinks in sinus rhythm Tammie Vasel S/O Reason for Visit Pain of left calf Paroxysmal atrial fibrillation Tachycardia Pain of left calf Essential hypertension Osteoporosis Persistent atrial fibrillation Chief Complaint PAIN IN LEFT LOWER L EG CALF ISSUES S/O EKG to see if a-fib L.[place] EORDERS afib afib afib afib 6 M FU Thinks in sinus rhythm Tammie Vasel S/O Cough EORDER/COUGH S/O Reason for Visit Pain of left calf Paroxysmal atrial fibrillation Tachycardia Pain of left calf Essential hypertension Osteoporosis Persistent atrial fibrillation Acute bronchitis Chief Complaint EKG to see if nikolay Beckwith EORDERS afib afib afib afib 6 M FU Thinks in sinus rhythm Tammie Vasel S/O Cough EORDER/COUGH S/O 6 M FU S/O Reason for Visit Pain of left calf Essential hypertension Osteoporosis Persistent atrial fibrillation Acute bronchitis Essential hypertension Nonrheumatic aortic (valve) stenosis Paroxysmal atrial fibrillation Pulmonary hypertension Chief Complaint Cough EORDER/COUGH S/O 6 M FU S/O S/O Reason for Visit Acute bronchitis Essential hypertension Nonrheumatic aortic (valve) stenosis Paroxysmal atrial fibrillation Pulmonary hypertension Chief Complaint Cough EORDER/COUGH S/O 6 M FU S/O S/O HR in 40's last 3 days S/O BRADYCARDIA Reason for Visit Acute bronchitis Essential hypertension Nonrheumatic aortic (valve) stenosis Paroxysmal atrial fibrillation Pulmonary hypertension Chief Complaint 6 M FU S/O S/O HR in 40's last 3 days BRADYCARDIA 6 M FU S/O 3 M FU Reason for Visit Essential hypertensi on Nonrheumatic aortic (valve) stenosis Paroxysmal atrial fibrillation Pulmonary hypertension Essential hypertension Hypothyroidism (acquired) Osteoporosis Paroxysmal atrial fibrillation Essential hypertension Hypothyroidism (acquired) Nonrheumatic aortic (valve) stenosis Paroxysmal atrial fibrillation Pulmonary hypertension Chief Complaint S/O HR in 40's last 3 days BRADYCARDIA 6 M FU S/O 3 M FU OSTEO SCRNING S/O Reason for Visit Essential hypertensi on Hypothyroidism (acquired) Osteoporosis Paroxysmal atrial fibrillation Essential hypertension Hypothyroidism (acquired) Nonrheumatic aortic (valve) stenosis Paroxysmal atrial fibrillation Pulmonary hypertension Chief Complaint S/O HR in 40's last 3 days BRADYCARDIA 6 M FU S/O 3 M FU OSTEO SCRNING S/O S/O Reason for Visit Essential hypertensi on Hypothyroidism (acquired) Osteoporosis Paroxysmal atrial fibrillation Essential hypertension Hypothyroidism (acquired) Nonrheumatic aortic (valve) stenosis Paroxysmal atrial fibrillation Pulmonary hypertension Chief Complaint BRADYCARDIA 6 M FU S/O 3 M FU OSTEO SCRNING S/O S/O S/O Reason for Visit Essential hypertensi on Hypothyroidism (acquired) Osteoporosis Paroxysmal atrial fibrillation Essential hypertension Hypothyroidism (acquired) Nonrheumatic aortic (valve) stenosis Paroxysmal atrial fibrillation Pulmonary hypertension Chief Complaint OSTEO SCRNING S/O S/O S/O S/O Chief Complaint S/O S/O follow up S/O 6 M FU S/O Reason for Visit Essential hypertensi on Hypothyroidism Osteoporosis Persistent atrial fibrillation Angina at rest Longstanding persistent atrial fibrillation Essential hypertension Nonrheumatic aortic (valve) stenosis Pulmonary hypertension Chief Complaint S/O follow up S/O 6 M FU S/O S/O CP, ANGINA AT REST; MURMUR, LYNN Reason for Visit Essential hypertensi on Hypothyroidism Osteoporosis Persistent atrial fibrillation Angina at rest Longstanding persistent atrial fibrillation Essential hypertension Nonrheumatic aortic (valve) stenosis Pulmonary hypertension Chief Complaint follow up S/O 6 M FU S/O S/O CP, ANGINA AT REST; MURMUR, LYNN EKG CHECK/BP CHECK S/O Reason for Visit Essential hypertensi on Hypothyroidism Osteoporosis Persistent atrial fibrillation Angina at rest Longstanding persistent atrial fibrillation Essential hypertension Nonrheumatic aortic (valve) stenosis Pulmonary hypertension Chief Complaint S/O S/O CP, ANGINA AT REST; MURMUR, LYNN EKG CHECK/BP CHECK S/O S/O DYSPNEA DYSPNEA Chief Complaint Admit Date S/O August 01, 2024 2:38pm S/O August 15, 2024 2 :19pm 6 M FU September 01, 2024 2 :09pm S/O September 12, 2024 3:07pm S/O October 06, 2024 2:39 pm 6 M FU October 26, 2024 10: 57am Reason for Visit Admit Date Essential hypertension September 01 2:09pm Heart failure with reduced e jection fraction and diastolic dysfunction September 01, 2024 2:09pm Hemorrhoid September 01, 2024 2 :09pm Hypothyroidism September 01, 2024 2 :09pm Osteoporosis September 01, 2024 2 :09pm Pain in both upper extremities August 052024 2:09pm CKD (chronic kidney disease), stage III October 26, 2024 10:57am Heart failure with reduced e jection fraction and diastolic dysfunction October 26, 2024 10:57am Longstanding persistent atrial fibrillat ion October 26, 2024 10:57am Pure hypercholesterolemia October 26 10:57am Chief Complaint Admit Date S/O September 12, 2024 3:07pm S/O October 06, 2024 2:39 pm 6 M FU October 26, 2024 10: 57am S/O November 02, 2024 10:3 3am S/O December 02, 2024 12:36p m Reason for Visit Admit Date CKD (chronic kidney disease), stage III October 26, 2024 10:57am Heart failure with reduced e jection fraction and diastolic dysfunction October 26, 2024 10:57am Longstanding persistent atrial fibrillat ion October 26, 2024 10:57am Pure hypercholesterolemia October 26 10:57am Chief Complaint Admit Date S/O September 12, 2024 3:07pm S/O October 06, 2024 2:39 pm 6 M FU October 26, 2024 10: 57am S/O November 02, 2024 10:3 3am S/O December 02, 2024 12:36p m Pt r/s from 01/04 with MH: see clinicals. January 05, 2025 9:25am Reason for Visit Admit Date CKD (chronic kidney disease), stage III October 26, 2024 10:57am Heart failure with reduced e jection fraction and diastolic dysfunction October 26, 2024 10:57am Longstanding persistent atrial fibrillat ion October 26, 2024 10:57am Pure hypercholesterolemia October 26 10:57am Fatigue January 05, 2025 9:25a m CKD (chronic kidney disease), stage III January 05, 2025 9:25am Heart failure with reduced e jection fraction and diastolic dysfunction January 05, 2025 9:25am Longstanding persistent atrial fibrillat ion January 05, 2025 9:25am Pure hypercholesterolemia January 05, 2025 9:25am Chief Complaint Admit Date S/O October 06, 2024 2:39 pm 6 M FU October 26, 2024 10: 57am S/O November 02, 2024 10:3 3am S/O December 02, 2024 12:36p m Pt r/s from 01/04 with MH: see clinicals. January 05, 2025 9:25am S/O January 10, 2025 10:3 1am E-ORDER, SOB January 30, 2025 12:3 1pm sob January 30, 2025 7:17 pm Chief Complaint Admit Date 6 M FU October 26, 2024 10: 57am S/O November 02, 2024 10:3 3am S/O December 02, 2024 12:36p m Pt r/s from 01/04 with MH: see clinicals. January 05, 2025 9:25am S/O January 10, 2025 10:3 1am E-ORDER, SOB January 30, 2025 12:3 1pm sob January 30, 2025 7:17 pm S/P [facility] 02/08February 22, 2025 12:5 2pm Reason for Visit Admit Date CKD (chronic kidney disease), stage III October 26, 2024 10:57am Heart failure with reduced e jection fraction and diastolic dysfunction October 26, 2024 10:57am Longstanding persistent atrial fibrillat ion October 26, 2024 10:57am Pure hypercholesterolemia October 26 10:57am Fatigue January 05, 2025 9:25a m CKD (chronic kidney disease), stage III January 05, 2025 9:25am Heart failure with reduced e jection fraction and diastolic dysfunction January 05, 2025 9:25am Longstanding persistent atrial fibrillat ion January 05, 2025 9:25am Pure hypercholesterolemia January 05, 2025 9:25am Fatigue February 22, 2025 12:5 2pm Right ventricular dilation February 22 12:52pm CKD (chronic kidney disease), stage III February 22, 2025 12:52pm Heart failure with reduced e jection fraction and diastolic dysfunction February 22, 2025 12:52pm Longstanding persistent atrial fibrillat ion February 22, 2025 12:52pm Pure hypercholesterolemia February 22 12:52pm Chief Complaint Admit Date 6 M FU October 26, 2024 10: 57am S/O November 02, 2024 10:3 3am S/O December 02, 2024 12:36p m Pt r/s from 01/04 with MH: see clinicals. January 05, 2025 9:25am S/O January 10, 2025 10:3 1am E-ORDER, SOB January 30, 2025 12:3 1pm sob January 30, 2025 7:17 pm S/P [facility] 02/08February 22, 2025 12:5 2pm Hospital FU February 23, 2025 10:5 2am Chief Complaint Admit Date S/O November 02, 2024 10:3 3am S/O December 02, 2024 12:36p m Pt r/s from 01/04 with MH: see clinicals. January 05, 2025 9:25am S/O January 10, 2025 10:3 1am E-ORDER, SOB January 30, 2025 12:3 1pm sob January 30, 2025 7:17 pm S/P [facility] 02/08February 22, 2025 12:5 2pm Hospital FU February 23, 2025 10:5 2am 6 M FU March 01, 2025 10:5 2am Reason for Visit Admit Date Fatigue January 05, 2025 9:25a m CKD (chronic kidney disease), stage III January 05, 2025 9:25am Heart failure with reduced e jection fraction and diastolic dysfunction January 05, 2025 9:25am Longstanding persistent atrial fibrillat ion January 05, 2025 9:25am Pure hypercholesterolemia January 05, 2025 9:25am Fatigue February 22, 2025 12:5 2pm Right ventricular dilation February 22 12:52pm CKD (chronic kidney disease), stage III February 22, 2025 12:52pm Heart failure with reduced e jection fraction and diastolic dysfunction February 22, 2025 12:52pm Longstanding persistent atrial fibrillat ion February 22, 2025 12:52pm Pure hypercholesterolemia February 22 12:52pm Fatigue February 23, 2025 10:5 2am Hospital discharge follow-up February 23, 2025 10:52am Heart failure with reduced e jection fraction and diastolic dysfunction February 23, 2025 10:52am Longstanding persistent atrial fibrillat ion February 23, 2025 10:52am Hematoma of rectus sheath February 23 10:52am Reason for Visit Admit Date Fatigue January 05, 2025 9:25a m CKD (chronic kidney disease), stage III January 05, 2025 9:25am Heart failure with reduced e jection fraction and diastolic dysfunction January 05, 2025 9:25am Longstanding persistent atrial fibrillat ion January 05, 2025 9:25am Pure hypercholesterolemia January 05, 2025 9:25am Fatigue February 22, 2025 12:5 2pm Right ventricular dilation February 22 12:52pm CKD (chronic kidney disease), stage III February 22, 2025 12:52pm Heart failure with reduced e jection fraction and diastolic dysfunction February 22, 2025 12:52pm Longstanding persistent atrial fibrillat ion February 22, 2025 12:52pm Pure hypercholesterolemia February 22 12:52pm Fatigue February 23, 2025 10:5 2am Hospital discharge follow-up February 23, 2025 10:52am Heart failure with reduced e jection fraction and diastolic dysfunction February 23, 2025 10:52am Longstanding persistent atrial fibrillat ion February 23, 2025 10:52am Hematoma of rectus sheath February 23 10:52am Insomnia March 01, 2025 10:5 2am Hematoma of rectus sheath March 01 10:52am Hypothyroidism (acquired) March 01 10:52am Mood disorder March 01, 2025 10:5 2am Pulmonary hypertension March 01, 2025 1 0:52am Chief Complaint Admit Date S/O December 02, 2024 12:36p m Pt r/s from 01/04 with MH: see clinicals. January 05, 2025 9:25am S/O January 10, 2025 10:3 1am E-ORDER, SOB January 30, 2025 12:3 1pm sob January 30, 2025 7:17 pm S/P [facility] 02/08February 22, 2025 12:5 2pm Hospital FU February 23, 2025 10:5 2am 6 M FU March 01, 2025 10:5 2am Chief Complaint Admit Date S/O December 02, 2024 12:36p m Pt r/s from 01/04 with MH: see clinicals. January 05, 2025 9:25am S/O January 10, 2025 10:3 1am E-ORDER, SOB January 30, 2025 12:3 1pm sob January 30, 2025 7:17 pm S/P [facility] 02/08February 22, 2025 12:5 2pm Hospital FU February 23, 2025 10:5 2am 6 M FU March 01, 2025 10:5 2am ACUTE-POSSIBLE UTI March 20, 2025 10 :40am Reason for Visit Admit Date Fatigue January 05, 2025 9:25a m CKD (chronic kidney disease), stage III January 05, 2025 9:25am Heart failure with reduced e jection fraction and diastolic dysfunction January 05, 2025 9:25am Longstanding persistent atrial fibrillat ion January 05, 2025 9:25am Pure hypercholesterolemia January 05, 2025 9:25am Fatigue February 22, 2025 12:5 2pm Right ventricular dilation February 22 12:52pm CKD (chronic kidney disease), stage III February 22, 2025 12:52pm Heart failure with reduced e jection fraction and diastolic dysfunction February 22, 2025 12:52pm Longstanding persistent atrial fibrillat ion February 22, 2025 12:52pm Pure hypercholesterolemia February 22 12:52pm Fatigue February 23, 2025 10:5 2am Hospital discharge follow-up February 23, 2025 10:52am Heart failure with reduced e jection fraction and diastolic dysfunction February 23, 2025 10:52am Longstanding persistent atrial fibrillat ion February 23, 2025 10:52am Hematoma of rectus sheath February 23 10:52am Insomnia March 01, 2025 10:5 2am Hematoma of rectus sheath March 01 10:52am Hypothyroidism (acquired) March 01 10:52am Mood disorder March 01, 2025 10:5 2am Pulmonary hypertension March 01, 2025 1 0:52am UTI (urinary tract infection) March 10:40am Chief Complaint Admit Date Pt r/s from 01/04 with MH: see clinicals. January 05, 2025 9:25am S/O January 10, 2025 10:3 1am E-ORDER, SOB January 30, 2025 12:3 1pm sob January 30, 2025 7:17 pm S/P [facility] /February 22, 2025 12:5 2pm Hospital FU February 23, 2025 10:5 2am 6 M FU March 01, 2025 10:5 2am ACUTE-POSSIBLE UTI March 20, 2025 10 :40am concern for uti April 09, 2025 10:59am Reason for Visit Admit Date Fatigue January 05, 2025 9:25a m CKD (chronic kidney disease), stage III January 05, 2025 9:25am Heart failure with reduced e jection fraction and diastolic dysfunction January 05, 2025 9:25am Longstanding persistent atrial fibrillat ion January 05, 2025 9:25am Pure hypercholesterolemia January 05, 2025 9:25am Fatigue February 22, 2025 12:5 2pm Right ventricular dilation February 22 12:52pm CKD (chronic kidney disease), stage III February 22, 2025 12:52pm Heart failure with reduced e jection fraction and diastolic dysfunction February 22, 2025 12:52pm Longstanding persistent atrial fibrillat ion February 22, 2025 12:52pm Pure hypercholesterolemia February 22 12:52pm Fatigue February 23, 2025 10:5 2am Hospital discharge follow-up February 23, 2025 10:52am Heart failure with reduced e jection fraction and diastolic dysfunction February 23, 2025 10:52am Longstanding persistent atrial fibrillat ion February 23, 2025 10:52am Hematoma of rectus sheath February 23 10:52am Insomnia March 01, 2025 10:5 2am Hematoma of rectus sheath March 01 10:52am Hypothyroidism (acquired) March 01 10:52am Mood disorder March 01, 2025 10:5 2am Pulmonary hypertension March 01, 2025 1 0:52am UTI (urinary tract infection) March 10:40am UTI (urinary tract infection) April 09, 2025 10:59am Reason for Referral Specialty Diagnoses / Procedures Referred By Contac t [facility] Diagnoses Atrial fibrillation, persistent (HCC) Procedures CARDIOVASCULAR MEDICINE OP FOLLOW UP APPT ORDER Danny Edmond MD [address] [place] [address] [facility] [address] [place] [address] Referral ID Status Reason Start Date Expiration Date Visits Requested Visits Authorized [id number] Ref Not Required PCP Requested Referral 12/24/2023 12/23/2024 1 1 Specialty Diagnoses / Procedures Referred By Contac t Referred To Contact Diagnoses Atrial fibrillation, persistent (HCC) Procedures REFERRAL TO CHF CLINIC OFFICE/OUTPATIENT [facility])[3] 60 MINUTES Danny Edmond MD [address] [place] [id number] Referral ID Status Reason Start Date Expiration Date Visits Requested Visits Authorized [id number] Authorized PCP Requested Referral 12/24/2023 12/23/2024 1 1 Specialty Diagnoses / Procedures Referred By Contac t Referred To Contact [facility] Diagnoses Atrial fibrillation, persistent (HCC) Procedures ECHO ECHO TTHRC R-T 2D W/WOM-MODE COMPL SPEC&COLR D Danny Edmond MD [address] [place] [address] [place] [id number] Referral ID Status Reason Start Date Expiration Date Visits Requested Visits Authorized [id number] Authorized Auto-Generat ed Referral 12/24/2023 12/23/2024 1 1 Specialty Diagnoses / Procedures Referred By Contac t Referred To Contact [facility] Procedures CARDIOVASCULAR MEDICINE [place] [address] [place], [place] [id number] [place] [id number] Referral ID Status Reason Start Date Expiration Date Visits Requested Visits Authorized [id number] Ref Not Required PCP Requested Referral 09/01/2024 11/30/2024 1 1 Additional Source Comments INFORMATION SOURCE (unrecogn ized section and content) DATE CREATED AUTHOR 01/22/2018 [facility] DATE CREATED AUTHOR AUTHOR'S ORGANIZ ATION 03/03/2024 [facility] DATE CREATED AUTHOR AUTHOR'S ORGANIZ ATION 02/13/2025 [facility] DATE CREATED AUTHOR AUTHOR'S ORGANIZ ATION 03/24/2025 [facility] Goals (unrecognized section and content) Goals may be documented in a n alternate sectionGoals may be documented in an alternate sectionGoals may be documented in an alternate sectionGoals may be documented in an alternate sectionGoals may be documented in an alternate sectionGoals may be documented in an alternate sectionGoals may be documented in an alternate sectionGoals may be documented in an alternate sectionGoals may be documented in an alternate sectionGoals may be documented in an alternate sectionGoals may be documented in an alternate sectionGoals may be documented in an alternate sectionGoals may be documented in an alternate sectionGoals may be documented in an alternate sectionGoals may be documented in an alternate sectionGoals may be documented in an alternate sectionGoals may be documented in an alternate sectionGoals may be documented in an alternate sectionGoals may be documented in an alternate sectionGoals may be documented in an alternate sectionGoals may be documented in an alternate sectionGoals may be documented in an alternate sectionGoals may be documented in an alternate sectionGoals may be documented in an alternate sectionGoals may be documented in an alternate sectionGoals may be documented in an alternate sectionGoals may be documented in an alternate sectionGoals may be documented in an alternate sectionGoals may be documented in an alternate sectionGoals may be documented in an alternate sectionGoals may be documented in an alternate sectionGoals may be documented in an alternate sectionGoals may be documented in an alternate sectionGoals may be documented in an alternate sectionGoals may be documented in an alternate sectionGoals may be documented in an alternate sectionGoals may be documented in an alternate sectionGoals may be documented in an alternate sectionGoals may be documented in an alternate sectionGoals may be documented in an alternate sectionGoals may be documented in an alternate sectionGoals may be documented in an alternate sectionGoals may be documented in an alternate sectionGoals may be documented in an alternate sectionGoals may be documented in an alternate section Care Teams (unrecognized sec tion and content) Team Status: Active Member Role Status Dates Dr. Agnieszka Fish MD Family Provider Active Dr. Agnieszka Fish MD Primary Care Provider Active Team Status: Inactive Member Role Status Dates Dr. Agnieszka Fish MD Primary Care Cristal khan, Attending Provider, Referring Provider Active Team Status: Active Member Role Status Dates Dr. Agnieszka Fish MD Primary Care Provider Active Dr. Sheldon Huntley MD Attending Provider Active Tammie Pillai PROPERTY ASSISTANT, PROPERTY ASSISTANT-C Referring Provider Active Team Status: Inactive Member Role Status Dates Dr. Agnieszka Fish MD Primary Care Provider, Refer ring Provider Active SANDRA Solorzano Attending Provider Active Team Status: Inactive Member Role Status Dates Dr. Agnieszka Fish MD Primary Care Provider, Refer ring Provider Active Olaf Active Dr. Kash Babin MD Attending Provider Active Team Status: Active Member Role Status Dates Dr. Agnieszka Fish MD Primary Care Provider Active Dr. Kash Babin MD Attending Provid er, Referring Provider, Other Provider Active Team Status: Active Member Role Status Dates Dr. Agnieszka Fish MD Primary Care Provider Active Dr. Kash Babin MD Referring Provider, Other Prov ider Active Dr. Casey Rod DO Attending Provider Active Team Status: Inactive Member Role Status Dates Dr. Agnieszka Fish MD Primary Care Provider, Refer ring Provider Active Dr. Kash Babin MD Attending Provider Active Team Status: Inactive Member Role Status Dates Dr. Kash Babin MD Attending Provider, Referring Provider Active Dr. Agnieszka Fish MD Primary Care Provider, Famil y Provider Active Dheeraj Rene PROPERTY ASSISTANT, PROPERTY ASSISTANT-C Other Provider Active Team Status: Inactive Member Role Status Dates Dr. Agnieszka Fish MD Primary Care Provider Active Tammie Pillai PROPERTY ASSISTANT, PROPERTY ASSISTANT-C Attending Provider, Referring P erin Active Team Status: Inactive Member Role Status Dates Dr. Agnieszka Fish MD Primary Care Provider Active Dr. Kash Babin MD Attending Provider, Referring Provider Active Eun Lloyd PA, PA Other Provider Active Team Status: Inactive Member Role Status Dates Dr. Agnieszka Fish MD Primary Care Provider Active Dr. Kash Babin MD Attending Provider, Referring Provider Active Team Status: Inactive Member Role Status Dates Dr. Agnieszka Fish MD Primary Care Provider, Refer ring Provider Active Tyler Nguyen PROPERTY ASSISTANT, PROPERTY ASSISTANT-C Attending Provider Active Team Status: Active Member Role Status Dates Dr. Kash Babin MD Attending Provider, Referring Provider Active Dr. Agnieszka Fish MD Primary Care Provider, Famil y Provider Active Dheeraj Rene PROPERTY ASSISTANT, PROPERTY ASSISTANT-C Other Provider Active Team Status: Inactive Member Role Status Dates Dr. Agnieszka Fish MD Primary Care Provider Active Tyler Nguyen PROPERTY ASSISTANT, PROPERTY ASSISTANT-C Attending Provider, Referring Prov ider Active Team Status: Inactive Member Role Status Dates Dr. Agnieszka Fish MD Primary Care Provider, Refer ring Provider Active Eun FLORES PA Attending Provider Active Team Status: Inactive Member Role Status Dates Dr. Agnieszka Fish MD Primary Care Provider Active Team Status: Inactive Member Role Status Dates Dr. Kash Babin MD Other Provider Active Dr. Agnieszka Fish MD Primary Care Provider, Famil y Provider Active Dheeraj Rene PROPERTY ASSISTANT, PROPERTY ASSISTANT-C Other Provider Active Eun Lloyd PA, PA Attending Provider, Referr ing Provider Active Team Status: Inactive Member Role Status Dates Dr. Agnieszka Fish MD Primary Care Provider, Refer ring Provider Active Dr. Michael Salvador MD Attending Provider Active Team Status: Active Member Role Status Dates Dr. Kash Babin MD Other Provider Active Dr. Agnieszka Fish MD Primary Care Provider, Famil y Provider Active Dheeraj Rene PROPERTY ASSISTANT, PROPERTY ASSISTANT-C Other Provider Active Eun FLORES, PA Attending Provider, Referr ing Provider Active Team Status: Inactive Member Role Status Dates Dr. Agnieszka Fish MD Primary Care Provider Active Eun FLORES, PA Attending Provider, Referr ing Provider Active Team Status: Active Member Role Status Dates Dr. Agnieszka Fish MD Primary Care P rovider, Attending Provider, Referring Provider Active Team Status: Active Member Role Status Dates Dr. Agnieszka Fish MD Primary Care Provider Active Dr. Michael Salvador MD Attending Provider Active Team Status: Active Member Role Status Dates Dr. Agnieszka Fish MD Primary Care Provider Active Eun FLORES, PA Attending Provider, Referr ing Provider Active Team Status: Active Member Role Status Dates Dr. Agnieszka Fish MD Primary Care Provider Active Dr. Michael Salvador MD Attending Provider, Referring Pro vider Active Team Status: Active Member Role Status Dates Dr. Agnieszka Fish MD Primary Care Provider Active Eun FLORES, PA Referring Provider, Other Provider Active Dr. Casey Rod DO Attending Provider Active Wheel Roller Relationship Specialty Start Date End Date Agnieszka Fish MD [address] [place] [address] PCP - General Internal Medicine 08/28/21 Srinath Alba [address] [place], [place] [address] Cardiology 12/15/17 Michael Salvador MD [address] [place], [place] [id number] [phone] Physician Cardiology 11/12/18 Danny Edmond MD [address] [place], [place] [id number] Primary Staff Physician Cardiology 10/19/18 Wheel Roller Relationship Specialty Start Date End Date Agnieszka Fish MD [address] [place], [place] [id number] PCP - General Internal Medicine 08/28/21 Srinath Alba [address] [place], [place] [id number] Cardiology 12/15/17 Michael Salvador MD [address] [place] [address] Physician Cardiology 11/12/18 Danny Edmond MD [address] [place] [address] Primary Staff Physician Cardiology 10/19/18 Wheel Roller Relationship Specialty Start Date End Date Agnieszka Fsih MD [address] [place] [address] PCP - General Internal Medicine 08/28/21 Srinath Alba [address] [place] [address] (Fax) Cardiology 12/15/17 Michael Salvador MD [address] [facility] [address] [place] [address] Physician Cardiology 11/12/18 Danny Edmond MD [address] [facility] [place], [place] [id number] Primary Staff Physician Cardiology 10/19/18 Wheel Roller Relationship Specialty Start Date End Date Agnieszka Fish MD [address] [place] [address] PCP - General Internal Medicine 08/28/21 Srinath Alba [address] [place] [address] (Fax) Cardiology 12/15/17 Michael Salvador MD [address] [facility] [address] [place] [address] Physician Cardiology 11/12/18 Danny Edmond MD [address] [place] [address] Primary Staff Physician Cardiology 10/19/18 Wheel Roller Relationship Specialty Start Date End Date Agnieszka Fish MD [address] [address] (Fax) PCP - General Internal Medicine 08/28/21 Srinath Alba [address] [place] [address] (Fax) Cardiology 12/15/17 Michael Salvador MD [address] [address] Physician Cardiology 11/12/18 Danny Edmond MD [address] [place] [address] Primary Staff Physician Cardiology 10/19/18 Team Status: Inactive Member Role Status Dates Dr. Agnieszka Fish MD Primary Care Provider Active Start: August 01, 2024 End: August 02, 2024 Dr. Agnieszka Fish MD Family Provider Active Start: August 01, 2024 End: August 02, 2024 Eun FLORES PA Attending Provider Active Start: August 01, 2024 End: August 02, 2024 Eun FLORES PA Referring Provider Active Start: August 01, 2024 End: August 02, 2024 Team Status: Inactive Member Role Status Dates Dr. Agnieszka Fish MD Primary Care Provider Active Start: August 15, 2024 End: September 02, 2024 Dr. Agnieszka iFsh MD Family Provider Active Start: August 15, 2024 End: September 02, 2024 Eun FLORES PA Attending Provider Active Start: August 15, 2024 End: September 02, 2024 Eun FLORES PA Referring Provider Active Start: August 15, 2024 End: September 02, 2024 Team Status: Inactive Member Role Status Dates Dr. Agnieszka Fish MD Primary Care Provider Active Start: September 01, 2024 End: September 01, 2024 Dr. Agnieszka Fish MD Attending Provider Active Start: September 01, 2024 End: September 01, 2024 Dr. Agnieszka Fish MD Referring Provider Active Start: September 01, 2024 End: September 01, 2024 Team Status: Inactive Member Role Status Dates Dr. Agnieszka Fish MD Primary Care Provider Active Start: September 12, 2024 End: September 30, 2024 Dr. Agnieszka Fish MD Family Provider Active Start: September 12, 2024 End: September 30, 2024 Eun Lloyd PA, PA Attending Provider Active Start: September 12, 2024 End: September 30, 2024 Eun Lloyd PA, PA Referring Provider Active Start: September 12, 2024 End: September 30, 2024 Team Status: Inactive Member Role Status Dates Dr. Agnieszka Fish MD Primary Care Provider Active Start: October 06, 2024 End: October 31, 2024 Dr. Agnieszka Fish MD Family Provider Active Start: October 06, 2024 End: October 31, 2024 Eun Lloyd PA, PA Attending Provider Active Start: October 06, 2024 End: October 31, 2024 Eun Lloyd PA, PA Referring Provider Active Start: October 06, 2024 End: October 31, 2024 Team Status: Inactive Member Role Status Dates Dr. Agnieszka Fish MD Primary Care Provider Active Start: October 26, 2024 End: October 26, 2024 Dr. Agnieszka Fish MD Referring Provider Active Start: October 26, 2024 End: October 26, 2024 Eun Lloyd PA, PA Attending Provider Active Start: October 26, 2024 End: October 26, 2024 Team Status: Inactive Member Role Status Dates Dr. Agnieszka Fish MD Primary Care Provider Active Start: November 02, 2024 End: November 30, 2024 Dr. Agnieszka Fish MD Family Provider Active Start: November 02, 2024 End: November 30, 2024 Eun Lloyd PA, PA Attending Provider Active Start: November 02, 2024 End: November 30, 2024 Eun Lloyd PA, PA Referring Provider Active Start: November 02, 2024 End: November 30, 2024 Team Status: Inactive Member Role Status Dates Dr. Agnieszka Fish MD Primary Care Provider Active Start: December 02, 2024 End: December 02, 2024 Dr. Agnieszka Fish MD Family Provider Active Start: December 02, 2024 End: December 02, 2024 Eun Lloyd PA, PA Attending Provider Active Start: December 02, 2024 End: December 02, 2024 Eun Lloyd PA, PA Referring Provider Active Start: December 02, 2024 End: December 02, 2024 Team Status: Active Member Role Status Dates Dr. Agnieszka Fish MD Primary Care Provider Active Team Status: Inactive Member Role Status Dates Dr. Agnieszka Fish MD Primary Care Provider Active Start: January 05, 2025 End: January 05, 2025 Dr. Agnieszka Fish MD Referring Provider Active Start: January 05, 2025 End: January 05, 2025 Eun Lloyd PA, PA Attending Provider Active Start: January 05, 2025 End: January 05, 2025 Team Status: Active Member Role/Relationship Status Dates Dr. Agnieszka Fish MD Family Provider Active Dr. Agnieszka Fish MD Primary Care Provider Active Team Status: Inactive Member Role/Relationship Status Dates Dr. Agnieszka Fish MD Primary Care Provider Active Start: October 06, 2024 End: October 31, 2024 Dr. Agnieszka Fish MD Family Provider Active Start: October 06, 2024 End: October 31, 2024 Eun Lloyd PA, PA Attending Provider Active Start: October 06, 2024 End: October 31, 2024 Eun Lloyd PA, PA Referring Provider Active Start: October 06, 2024 End: October 31, 2024 Team Status: Inactive Member Role/Relationship Status Dates Dr. Agnieszka Fish MD Primary Care Provider Active Start: October 26, 2024 End: October 26, 2024 Dr. Agnieszka Fish MD Referring Provider Active Start: October 26, 2024 End: October 26, 2024 Eun Lloyd PA, PA Attending Provider Active Start: October 26, 2024 End: October 26, 2024 Team Status: Inactive Member Role/Relationship Status Dates Dr. Agnieszka Fish MD Primary Care Provider Active Start: November 02, 2024 End: November 30, 2024 Dr. Agnieszka Fish MD Family Provider Active Start: November 02, 2024 End: November 30, 2024 Eun Lloyd PA, PA Attending Provider Active Start: November 02, 2024 End: November 30, 2024 Eun FLORES, PA Referring Provider Active Start: November 02, 2024 End: November 30, 2024 Team Status: Inactive Member Role/Relationship Status Dates Dr. Agnieszka Fish MD Primary Care Provider Active Start: December 02, 2024 End: December 02, 2024 Dr. Agnieszka Fish MD Family Provider Active Start: December 02, 2024 End: December 02, 2024 Eun Lloyd PA, PA Attending Provider Active Start: December 02, 2024 End: December 02, 2024 Eun Lloyd PA, PA Referring Provider Active Start: December 02, 2024 End: December 02, 2024 Team Status: Inactive Member Role/Relationship Status Dates Dr. Agnieszka Fish MD Primary Care Provider Active Start: January 05, 2025 End: January 05, 2025 Dr. Agnieszka Fish MD Referring Provider Active Start: January 05, 2025 End: January 05, 2025 Eun Lloyd PA, PA Attending Provider Active Start: January 05, 2025 End: January 05, 2025 Team Status: Inactive Member Role/Relationship Status Dates Dr. Agnieszka Fish MD Primary Care Provider Active Start: January 10, 2025 End: January 30, 2025 Dr. Agnieszka Fish MD Family Provider Active Start: January 10, 2025 End: January 30, 2025 Eun FLORES, PA Attending Provider Active Start: January 10, 2025 End: January 30, 2025 Eun Lloyd PA, PA Referring Provider Active Start: January 10, 2025 End: January 30, 2025 Team Status: Active Member Role/Relationship Status Dates Dr. Agnieszka Fish MD Primary Care Provider Active Start: January 30, 2025 Tammie Pillai PROPERTY ASSISTANT, PROPERTY ASSISTANT-C Attending Provider Active Start: January 30, 2025 Tammie Pillai PROPERTY ASSISTANT, PROPERTY ASSISTANT-C Referring Provider Active Start: January 30, 2025 Team Status: Inactive Member Role/Relationship Status Dates Dr. Agnieszka Fish MD Primary Care Provider Active Start: January 30, 2025 End: January 31, 2025 Dr. Car Solomon DO Emergency Provider Active Start: January 30, 2025 End: January 31, 2025 Team Status: Inactive Member Role/Relationship Status Dates Dr. Agnieszka Fish MD Primary Care Provider Active Start: January 30, 2025 End: January 30, 2025 Tammie Pillai PROPERTY ASSISTANT, PROPERTY ASSISTANT-C Attending Provider Active Start: January 30, 2025 End: January 30, 2025 Tammie Pillai PROPERTY ASSISTANT, PROPERTY ASSISTANT-C Referring Provider Active Start: January 30, 2025 End: January 30, 2025 Team Status: Active Member Role/Relationship Status Dates Dr. Agnieszka Fish MD Primary Care Provider Active Team Status: Inactive Member Role/Relationship Status Dates Dr. Agnieszka Fish MD Primary Care Provider Active Start: October 26, 2024 End: October 26, 2024 Dr. Agnieszka Fish MD Referring Provider Active Start: October 26, 2024 End: October 26, 2024 Eun Lloyd PA, PA Attending Provider Active Start: October 26, 2024 End: October 26, 2024 Team Status: Inactive Member Role/Relationship Status Dates Dr. Agnieszka Fish MD Primary Care Provider Active Start: November 02, 2024 End: November 30, 2024 Dr. Agnieszka Fish MD Family Provider Active Start: November 02, 2024 End: November 30, 2024 Eun Lloyd PA, PA Attending Provider Active Start: November 02, 2024 End: November 30, 2024 Eun Lloyd PA, PA Referring Provider Active Start: November 02, 2024 End: November 30, 2024 Team Status: Inactive Member Role/Relationship Status Dates Dr. Agnieszka Fish MD Primary Care Provider Active Start: December 02, 2024 End: December 02, 2024 Dr. Agnieszka Fish MD Family Provider Active Start: December 02, 2024 End: December 02, 2024 Eun Lloyd PA, PA Attending Provider Active Start: December 02, 2024 End: December 02, 2024 Eun Lloyd PA, PA Referring Provider Active Start: December 02, 2024 End: December 02, 2024 Team Status: Inactive Member Role/Relationship Status Dates Dr. Agnieszka Fish MD Primary Care Provider Active Start: January 05, 2025 End: January 05, 2025 Dr. Agnieszka Fish MD Referring Provider Active Start: January 05, 2025 End: January 05, 2025 Eun Lloyd PA, PA Attending Provider Active Start: January 05, 2025 End: January 05, 2025 Team Status: Inactive Member Role/Relationship Status Dates Dr. Agnieszka Fish MD Primary Care Provider Active Start: January 10, 2025 End: January 30, 2025 Dr. Agnieszka Fish MD Family Provider Active Start: January 10, 2025 End: January 30, 2025 Eun Lloyd PA, PA Attending Provider Active Start: January 10, 2025 End: January 30, 2025 Eun Lloyd PA, PA Referring Provider Active Start: January 10, 2025 End: January 30, 2025 Team Status: Inactive Member Role/Relationship Status Dates Dr. Agnieszka iFsh MD Primary Care Provider Active Start: January 30, 2025 End: January 30, 2025 Tammie Pillai PROPERTY ASSISTANT, PROPERTY ASSISTANT-C Attending Provider Active Start: January 30, 2025 End: January 30, 2025 Tammie Pillai PROPERTY ASSISTANT, PROPERTY ASSISTANT-C Referring Provider Active Start: January 30, 2025 End: January 30, 2025 Team Status: Inactive Member Role/Relationship Status Dates Dr. Agnieszka Fish MD Primary Care Provider Active Start: January 30, 2025 End: January 31, 2025 Dr. Car Solomon DO Attending Provider Active Start: January 30, 2025 End: January 31, 2025 Dr. Car Solomon DO Emergency Provider Active Start: January 30, 2025 End: January 31, 2025 Team Status: Active Member Role/Relationship Status Dates Dr. Agnieszka Fish MD Primary Care Provider Active Start: February 13, 2025 Dr. Agnieszka Fish MD Attending Provider Active Start: February 13, 2025 Dr. Agnieszka Fish MD Referring Provider Active Start: February 13, 2025 Team Status: Inactive Member Role/Relationship Status Dates Dr. Agnieszka Fish MD Primary Care Provider Active Start: February 22, 2025 End: February 22, 2025 Dr. Agnieszka Fish MD Referring Provider Active Start: February 22, 2025 End: February 22, 2025 Eun Lloyd PA, PA Attending Provider Active Start: February 22, 2025 End: February 22, 2025 Team Status: Inactive Member Role/Relationship Status Dates Dr. Agnieszka Fish MD Primary Care Provider Active Start: February 23, 2025 End: February 23, 2025 Dr. Agnieszka Fish MD Referring Provider Active Start: February 23, 2025 End: February 23, 2025 LINNEA Aggarwal Attending Provider Active Start: February 23, 2025 End: February 23, 2025 Team Status: Inactive Member Role/Relationship Status Dates Dr. Agnieszka Fish MD Primary Care Provider Active Start: November 02, 2024 End: November 30, 2024 Dr. Agnieszka Fish MD Family Provider Active Start: November 02, 2024 End: November 30, 2024 Eun Lloyd PA, PA Attending Provider Active Start: November 02, 2024 End: November 30, 2024 Eun Lloyd PA, PA Referring Provider Active Start: November 02, 2024 End: November 30, 2024 Team Status: Inactive Member Role/Relationship Status Dates Dr. Agnieszka Fish MD Primary Care Provider Active Start: December 02, 2024 End: December 02, 2024 Dr. Agnieszka Fish MD Family Provider Active Start: December 02, 2024 End: December 02, 2024 Eun Lloyd PA, PA Attending Provider Active Start: December 02, 2024 End: December 02, 2024 Eun Lloyd PA, PA Referring Provider Active Start: December 02, 2024 End: December 02, 2024 Team Status: Inactive Member Role/Relationship Status Dates Dr. Agnieszka Fish MD Primary Care Provider Active Start: January 05, 2025 End: January 05, 2025 Dr. Agnieszka Fish MD Referring Provider Active Start: January 05, 2025 End: January 05, 2025 Eun Lloyd PA, PA Attending Provider Active Start: January 05, 2025 End: January 05, 2025 Team Status: Inactive Member Role/Relationship Status Dates Dr. Agnieszka Fish MD Primary Care Provider Active Start: January 10, 2025 End: January 30, 2025 Dr. Agnieszka Fish MD Family Provider Active Start: January 10, 2025 End: January 30, 2025 Eun Lloyd PA, PA Attending Provider Active Start: January 10, 2025 End: January 30, 2025 Eun Lloyd PA, PA Referring Provider Active Start: January 10, 2025 End: January 30, 2025 Team Status: Inactive Member Role/Relationship Status Dates Dr. Agnieszka Fish MD Primary Care Provider Active Start: January 30, 2025 End: January 30, 2025 Tammie Pillai PROPERTY ASSISTANT, PROPERTY ASSISTANT-C Attending Provider Active Start: January 30, 2025 End: January 30, 2025 Tammie Pillai PROPERTY ASSISTANT, PROPERTY ASSISTANT-C Referring Provider Active Start: January 30, 2025 End: January 30, 2025 Team Status: Inactive Member Role/Relationship Status Dates Dr. Agnieszka Fish MD Primary Care Provider Active Start: January 30, 2025 End: January 31, 2025 Dr. Car Solomon DO Attending Provider Active Start: January 30, 2025 End: January 31, 2025 Dr. Car Solomon DO Emergency Provider Active Start: January 30, 2025 End: January 31, 2025 Team Status: Active Member Role/Relationship Status Dates Dr. Agnieszka Fish MD Primary Care Provider Active Start: February 13, 2025 Dr. Agnieszka Fish MD Attending Provider Active Start: February 13, 2025 Dr. Agnieszka Fish MD Referring Provider Active Start: February 13, 2025 Team Status: Inactive Member Role/Relationship Status Dates Dr. Agnieszka Fish MD Primary Care Provider Active Start: February 22, 2025 End: February 22, 2025 Dr. Agnieszka Fish MD Referring Provider Active Start: February 22, 2025 End: February 22, 2025 Eun Lloyd PA, PA Attending Provider Active Start: February 22, 2025 End: February 22, 2025 Team Status: Inactive Member Role/Relationship Status Dates Dr. Agnieszka Fish MD Primary Care Provider Active Start: February 23, 2025 End: February 23, 2025 Dr. Agnieszka Fish MD Referring Provider Active Start: February 23, 2025 End: February 23, 2025 LINNEA Aggarwal Attending Provider Active Start: February 23, 2025 End: February 23, 2025 Team Status: Inactive Member Role/Relationship Status Dates Dr. Agnieszka Fish MD Primary Care Provider Active Start: March 01, 2025 End: March 01, 2025 Dr. Agnieszka Fish MD Attending Provider Active Start: March 01, 2025 End: March 01, 2025 Dr. Agnieszka Fish MD Referring Provider Active Start: March 01, 2025 End: March 01, 2025 Team Status: Active Member Role/Relationship Status Dates Dr. Agnieszka Fish MD Primary Care Provider Active Start: March 01, 2025 Dr. Agnieszka Fish MD Attending Provider Active Start: March 01, 2025 Team Status: Inactive Member Role/Relationship Status Dates Dr. Agnieszka Fish MD Primary Care Provider Active Start: February 13, 2025 End: March 02, 2025 Dr. Agnieszka Fish MD Attending Provider Active Start: February 13, 2025 End: March 02, 2025 Dr. Agnieszka Fish MD Referring Provider Active Start: February 13, 2025 End: March 02, 2025 Team Status: Inactive Member Role/Relationship Status Dates Dr. Agnieszka Fish MD Primary Care Provider Active Start: December 02, 2024 End: December 02, 2024 Dr. Agnieszka Fish MD Family Provider Active Start: December 02, 2024 End: December 02, 2024 Eun Lloyd PA, PA Attending Provider Active Start: December 02, 2024 End: December 02, 2024 Eun Lloyd PA, PA Referring Provider Active Start: December 02, 2024 End: December 02, 2024 Team Status: Inactive Member Role/Relationship Status Dates Dr. Agnieszka Fish MD Primary Care Provider Active Start: January 05, 2025 End: January 05, 2025 Dr. Agnieszka Fish MD Referring Provider Active Start: January 05, 2025 End: January 05, 2025 Eun FLORES PA Attending Provider Active Start: January 05, 2025 End: January 05, 2025 Team Status: Inactive Member Role/Relationship Status Dates Dr. Agnieszka Fish MD Primary Care Provider Active Start: January 10, 2025 End: January 30, 2025 Dr. Agnieszka Fish MD Family Provider Active Start: January 10, 2025 End: January 30, 2025 Eun FLORES PA Attending Provider Active Start: January 10, 2025 End: January 30, 2025 SANDRA Weaver Referring Provider Active Start: January 10, 2025 End: January 30, 2025 Team Status: Inactive Member Role/Relationship Status Dates Dr. Agnieszka Fish MD Primary Care Provider Active Start: January 30, 2025 End: January 30, 2025 Tammie Pillai PROPERTY ASSISTANT, PROPERTY ASSISTANT-C Attending Provider Active Start: January 30, 2025 End: January 30, 2025 Tammie Pillai PROPERTY ASSISTANT, PROPERTY ASSISTANT-C Referring Provider Active Start: January 30, 2025 End: January 30, 2025 Team Status: Inactive Member Role/Relationship Status Dates Dr. Agnieszka Fish MD Primary Care Provider Active Start: January 30, 2025 End: January 31, 2025 Dr. Car Solomon DO Attending Provider Active Start: January 30, 2025 End: January 31, 2025 Dr. Car Solomon DO Emergency Provider Active Start: January 30, 2025 End: January 31, 2025 Team Status: Inactive Member Role/Relationship Status Dates Dr. Agnieszka Fish MD Primary Care Provider Active Start: February 13, 2025 End: March 02, 2025 Dr. Agnieszka Fish MD Attending Provider Active Start: February 13, 2025 End: March 02, 2025 Dr. Agnieszka Fish MD Referring Provider Active Start: February 13, 2025 End: March 02, 2025 Team Status: Inactive Member Role/Relationship Status Dates Dr. Agnieszka Fish MD Primary Care Provider Active Start: February 22, 2025 End: February 22, 2025 Dr. Agnieszka Fish MD Referring Provider Active Start: February 22, 2025 End: February 22, 2025 Eun Lloyd PA, PA Attending Provider Active Start: February 22, 2025 End: February 22, 2025 Team Status: Inactive Member Role/Relationship Status Dates Dr. Agnieszka Fish MD Primary Care Provider Active Start: February 23, 2025 End: February 23, 2025 Dr. Agnieszka Fish MD Referring Provider Active Start: February 23, 2025 End: February 23, 2025 Carla Coughlin PROPERTY ASSISTANT-C Attending Provider Active Start: February 23, 2025 End: February 23, 2025 Team Status: Inactive Member Role/Relationship Status Dates Dr. Agnieszka Fish MD Primary Care Provider Active Start: March 01, 2025 End: March 01, 2025 Dr. Agnieszka Fish MD Attending Provider Active Start: March 01, 2025 End: March 01, 2025 Dr. Agnieszka Fish MD Referring Provider Active Start: March 01, 2025 End: March 01, 2025 Team Status: Inactive Member Role/Relationship Status Dates Dr. Agnieszka Fish MD Primary Care Provider Active Start: March 01, 2025 End: March 01, 2025 Dr. Agnieszka Fish MD Attending Provider Active Start: March 01, 2025 End: March 01, 2025 Team Status: Inactive Member Role/Relationship Status Dates Dr. Agnieszka Fish MD Primary Care Provider Active Start: March 20, 2025 End: March 20, 2025 Dr. Agnieszka Fish MD Referring Provider Active Start: March 20, 2025 End: March 20, 2025 Carla Coughlin PROPERTY ASSISTANT-C Attending Provider Active Start: March 20, 2025 End: March 20, 2025 Team Status: Inactive Member Role/Relationship Status Dates Dr. Agnieszka Fish MD Primary Care Provider Active Start: March 20, 2025 End: March 20, 2025 Carla Coughlin PROPERTY ASSISTANT-C Attending Provider Active Start: March 20, 2025 End: March 20, 2025 Carla Coughlin PROPERTY ASSISTANT-C Referring Provider Active Start: March 20, 2025 End: March 20, 2025 Team Status: Inactive Member Role/Relationship Status Dates Dr. Agnieszka Fish MD Primary Care Provider Active Start: January 05, 2025 End: January 05, 2025 Dr. Agnieszka Fish MD Referring Provider Active Start: January 05, 2025 End: January 05, 2025 Eun Lloyd PA, PA Attending Provider Active Start: January 05, 2025 End: January 05, 2025 Team Status: Inactive Member Role/Relationship Status Dates Dr. Agnieszka Fish MD Primary Care Provider Active Start: January 10, 2025 End: January 30, 2025 Dr. Agnieszka Fish MD Family Provider Active Start: January 10, 2025 End: January 30, 2025 Eun Lloyd PA, PA Attending Provider Active Start: January 10, 2025 End: January 30, 2025 Eun Lloyd PA, PA Referring Provider Active Start: January 10, 2025 End: January 30, 2025 Team Status: Inactive Member Role/Relationship Status Dates Dr. Agnieszka Fish MD Primary Care Provider Active Start: January 30, 2025 End: January 30, 2025 Tammie Pillai PROPERTY ASSISTANT, PROPERTY ASSISTANT-C Attending Provider Active Start: January 30, 2025 End: January 30, 2025 Tammie Pillai PROPERTY ASSISTANT, PROPERTY ASSISTANT-C Referring Provider Active Start: January 30, 2025 End: January 30, 2025 Team Status: Inactive Member Role/Relationship Status Dates Dr. Agnieszka Fish MD Primary Care Provider Active Start: January 30, 2025 End: January 31, 2025 Dr. Car Solomon DO Attending Provider Active Start: January 30, 2025 End: January 31, 2025 Dr. Car Solomon DO Emergency Provider Active Start: January 30, 2025 End: January 31, 2025 Team Status: Inactive Member Role/Relationship Status Dates Dr. Agnieszka Fish MD Primary Care Provider Active Start: February 13, 2025 End: March 02, 2025 Dr. Agnieszka Fish MD Attending Provider Active Start: February 13, 2025 End: March 02, 2025 Dr. Agnieszka Fish MD Referring Provider Active Start: February 13, 2025 End: March 02, 2025 Team Status: Inactive Member Role/Relationship Status Dates Dr. Agnieszka Fish MD Primary Care Provider Active Start: February 22, 2025 End: February 22, 2025 Dr. Agnieszka Fish MD Referring Provider Active Start: February 22, 2025 End: February 22, 2025 Eun Lloyd PA, PA Attending Provider Active Start: February 22, 2025 End: February 22, 2025 Team Status: Inactive Member Role/Relationship Status Dates Dr. Agnieszka Fish MD Primary Care Provider Active Start: February 23, 2025 End: February 23, 2025 Dr. Agnieszka Fish MD Referring Provider Active Start: February 23, 2025 End: February 23, 2025 LINNEA Aggarwal Attending Provider Active Start: February 23, 2025 End: February 23, 2025 Team Status: Inactive Member Role/Relationship Status Dates Dr. Agnieszka Fish MD Primary Care Provider Active Start: March 01, 2025 End: March 01, 2025 Dr. Agnieszka Fish MD Attending Provider Active Start: March 01, 2025 End: March 01, 2025 Dr. Agnieszka Fish MD Referring Provider Active Start: March 01, 2025 End: March 01, 2025 Team Status: Inactive Member Role/Relationship Status Dates Dr. Agnieszka Fish MD Primary Care Provider Active Start: March 01, 2025 End: March 01, 2025 Dr. Agnieszka Fish MD Attending Provider Active Start: March 01, 2025 End: March 01, 2025 Team Status: Inactive Member Role/Relationship Status Dates Dr. Agnieszka Fish MD Primary Care Provider Active Start: March 20, 2025 End: March 20, 2025 Dr. Agnieszka Fish MD Referring Provider Active Start: March 20, 2025 End: March 20, 2025 LINNEA Aggarwal Attending Provider Active Start: March 20, 2025 End: March 20, 2025 Team Status: Inactive Member Role/Relationship Status Dates Dr. Agnieszka Fish MD Primary Care Provider Active Start: March 20, 2025 End: March 20, 2025 LINNEA Aggarwal Attending Provider Active Start: March 20, 2025 End: March 20, 2025 LINNEA Aggarwal Referring Provider Active Start: March 20, 2025 End: March 20, 2025 Team Status: Inactive Member Role/Relationship Status Dates Dr. Agnieszka Fish MD Primary Care Provider Active Start: April 09, 2025 End: April 09, 2025 Dr. Agnieszka Fish MD Referring Provider Active Start: April 09, 2025 End: April 09, 2025 LINNEA Mendoza NP Attending Provider Active S tart: April 09, 2025 End: April 09, 2025 Source Comments (unrecognize d section and content) In the event this informatio n is protected by the Federal Confidentiality of Alcohol and Drug Abuse Patient Records regulations: The Federal rules restrict any use of the information to criminally investigate or prosecute any alcohol or drug abuse patient.[facility] the event this information is protected by the Federal Confidentiality of Alcohol and Drug Abuse Patient Records regulations: The Federal rules restrict any use of the information to criminally investigate or prosecute any alcohol or drug abuse patient.[facility] the event this information is protected by the Federal Confidentiality of Alcohol and Drug Abuse Patient Records regulations: The Federal rules restrict any use of the information to criminally investigate or prosecute any alcohol or drug abuse patient.[facility] the event this information is protected by the Federal Confidentiality of Alcohol and Drug Abuse Patient Records regulations: The Federal rules restrict any use of the information to criminally investigate or prosecute any alcohol or drug abuse patient.[facility] the event this information is protected by the Federal Confidentiality of Alcohol and Drug Abuse Patient Records regulations: The Federal rules restrict any use of the information to criminally investigate or prosecute any alcohol or drug abuse patient.[facility] Reason for Visit (unrecogniz ed section and content) Reason Comments Received Outside Medical Records Hair joe Medical & Referral Reason Comments Holter Monitor Application 24-HR Reason Comments Consult Specialty Diagnoses / Procedures Referred By Contac t Referred To Contact [facility] Diagnoses Atrial fibrillation, persistent (HCC) Procedures ECHO ECHO TTHRC R-T 2D W/WOM-MODE COMPL SPEC&COLR D Danny Edmond MD [address] [place] [address] [facility] [address] [address] [place] [address] Referral ID Status Reason Start Date Expiration Date V isits Requested Visits Authorized [id number] Closed Auto-Generate d Referral 12/24/2023 12/23/2024 1 1 FOR RECORDS PERTAINING TO PATIENTS WHO ARE [...] BE BASED ON THE PRIMARY CLINICAL RECORDS. [facility], [facility]. provides no warranty or guarantee of the accuracy or completeness of information in this document.
== END | disposition home or self-care (01) ==
LOC: LABSPEC 04-10 07:26
PROVIDERS: PCP Internal Medicine; Visit Provider Nurse Practitioner Family
DX: R82.90 Unspecified abnormal findings in urine (principal)
CPT/HCPCS: 87077; 87086; 87088; 87186

== ENCOUNTER → 2025-04-14 | Outpatient (CLI) | payer MEDICARE, OTHER, SELFPAY ==
--- NOTE | 2025-04-14 11:35 | RAD_ITS ---
PROCEDURE: CHEST PA AND LATERAL 04/14/2025 REASON FOR EXAM: SOB TECHNIQUE: Procedure Code: RADCXR Modality: DX Procedure: CHEST PA AND LATERAL COMPARISON: January 30, 2025 FINDINGS: Hardware: None Heart: Enlarged. Mediastinum: Aorta is atherosclerotic. Lungs: Subsegmental atelectasis of the lung bases. No consolidation. Bones: Degenerative changes are identified within the thoracic spine. RAD/Chest PA and Lateral IMPRESSION: Cardiac enlargement. Subsegmental atelectasis of the lung bases. Reading Location: [id number]
[2025-04-14 12:27] LABS: Hematocrit 40.2 % (37-47); Hemoglobin 13.2 g/dL (12.0-15.0); Immature Granulocytes Count 0.010 X10^3/uL (0.0-0.0); Mean Corp Hgb Conc 32.8 g/dL (32-36); Mean Corpuscular Volume 91.4 fL (81-99); Mean Platelet Vol. 9.5 fl (6.2-12.0); NRBC Flagged by Analyzer 0 % (0-5); Platelet Count 188 K/mm3 (150-450); RBC Distribution Width CV 18.9 % (11.6-14.6); RBC Distribution Width SD 62.4 fl (35.1-43.9); Red Blood Count 4.40 M/mm3 (4.2-5.4); White Blood Count 4.3 K/mm3 (4.4-11.0)
[2025-04-14 13:11] LABS: Cholesterol 109 mg/dL (<=200); Low Density Lipoprotein Calc. 51 mg/dL; Triglycerides 83 mg/dL; Very Low Density Lipoprotein 17 mg/dL (5-40); cholesterol:hdl ratio screen 2.64
[2025-04-14 13:15] LABS: AST(SGOT) 55 U/L (<=31); Alanine Aminotransfer ALT/SGPT 27 U/L (<=34); Albumin, Serum 3.6 g/dL (3.4-4.8); Alkaline Phosphatase 143 U/L (35-104); Anion Gap 12 (5-15); BUN 32 mg/dL (4-19); BUN/Creat Ratio 22.5 RATIO (10-20); Bilirubin, Direct 1.08 mg/dL (0.00-0.30); Calcium,Total 8.8 mg/dL (7.6-11.0); Carbon Dioxide 25.3 mmol/L (21.0-32.0); Chloride 94 mmol/L (98-108); Globulin 2.6 g/dL (2.2-4.2); Glucose 72 mg/dL (70-99); Potassium 3.6 mmol/L (3.3-5.1)
== END | disposition home or self-care (01) ==
PROVIDERS: PCP Internal Medicine; Referring Provider Physician Assistant Medical; Visit Provider Physician Assistant Medical
DX: R05.9 Cough, unspecified (principal); I50.40 Unspecified combined systolic (congestive) and diastolic (congestive) heart failure; I48.11 Longstanding persistent atrial fibrillation; E78.00 Pure hypercholesterolemia, unspecified; Z79.01 Long term (current) use of anticoagulants
CPT/HCPCS: 36415; 71046; 80048; 80061; 80076; 85025

== ENCOUNTER → 2025-05-02 | Outpatient (CLI) | payer MEDICARE, OTHER, SELFPAY ==
--- OUTSIDE RECORDS SUMMARY | 2025-01-31 01:19 | XMS RPT_ITS ---
Author Name Auto Generated Organization OHIP Care Team Providers Care Brushing Operator Name Role Phone AGNIESZKA FISH Primary Care Unavailable ARNOLDO GONSALVES II Admitting Unavailable LISA FISH Attending Unavailsantiago PERRY MD, ADELIA Consulting Unavailable PROBLEMS DATE TYPE CONDITION / CODE [facility] Active Hematoma of rect us sheath, initial encounter / S30.1XXA(ICD-10) LISA FISH [facility] 01/31/2025 Active CHRISTOPHER (acute kidne y injury) / N17.9(ICD-10) LISA FISH [facility] 01/31/2025 Active Anticoagulated o n Coumadin / Z79.01(ICD-10) [facility] 01/31/2025 Active Atrial fibrillat ion, persistent (HCC) / I48.19(ICD-10) AUNGLISA Laird [facility] 01/31/2025 Active Hyperkalemia / E87.5(ICD-10) [facility] PROCEDURES No Procedure Records Found RESULTS CASE MANAGEM Observed: 02/08/2025 6:47 PM Status: COMPLETED Source: [facility] HNO ID: [id number] Author: STEVE VALDERRAMA RN Service: Care Management Author Type: Registered Nurse Type: Care Mgt Progress Note Filed: 02/09/2025 07:39 Note Text: CARE MANAGEMENT DISCHARGE NOTE SERVICE DATE: February 09, 2025 SERVICE TIME: 737 Admission Date: 01/31/2025 LOS: 8 days Discharge Arrangement Discharge Arrangement: Home with Home Health Services Arranged Medical Services: Skilled Home Health Care Type: Home Health Agency, Assisted, Physical Therapy, Occupational Therapy Provider Name: Dr. Fish Caregiver Assessment Caregiver is ready, willing and able to meet the patient's needs as recommended by the inter-professional team: Yes Name of Caregiver: [facility] Transportation Arrangements Transportation Arrangements: Car Handoff Communication: Additional Information: Discharge Information Row Name ED to Hosp-Admission (Discharged) from 01/31/2025 in [facility] Start of Care 02/09/25 Patient discharged last evening to home with [facility]. Order and DC summary sent to agency. Patient arranged transport home with a friend. SIGNATURE: Steve Valderrama RN PATIENT NAME: Ana Maria Avalos DATE: February 09, 2025 TIME: 7:38 AM CNDS Observed: 02/08/2025 4:43 PM Status: COMPLETED Source: [facility] HNO ID: [id number] Author: LISA FISH MD Service: Hospital Medicine Author Type: Physician Type: Discharge Summary Filed: 02/08/2025 16:45 Note Text: DISCHARGE SUMMARY PATIENT NAME: Ana Maria Avalos Code Status: Full Code Highest Readmission Risk Score: 12 The 30 day readmissions risk score is derived from an internally validated risk model which evaluates patient level characteristics, utilization history, medication orders and lab results up until the day of discharge. Patients with a score of 39 or above are considered highest risk for readmission. Specific patient level drivers will be listed at the bottom of the summary. Admission Information Admission Information ADMIT DATE: 01/31/2025 DISCHARGE DATE: 02/08/2025 MY DOCTORS AND MEDICAL TEAM: My Main Hospital Doctor: Lisa Fish,* Primary Care Provider: Agnieszka Fish MD My Medical Team Members: Treatment Team: Attending Provider: Lisa Fish MD Consulting: Susana Rodriguez MD Primary Service: [place] Consulting: Adelia Perry MD MY CONDITION AT DISCHARGE: Stable REASON I WAS IN THE HOSPITAL: Rectus sheath hematoma SUMMARY OF WHAT HAPPENED WHILE I WAS IN THE HOSPITAL: Patient is a very pleasant 89-year-old female with a history of chronic atrial fibrillation, tricuspid regurgitation and pulmonary hypertension and who was transferred from [facility] where she had presented with rectus sheath hematoma and found to have supratherapeutic INR. She was treated with vitamin K and followed by surgical team. Patient was seen by cardiology as well as general surgery. Patient was monitored for ongoing bleeding clinically with serial examinations and hemoglobin monitoring and remained stable. Echocardiogram showed unchanged severe pulmonary hypertension, severe tricuspid regurgitation but worsening right ventricular enlargement. Hospital stay complicated by development of superficial septic thrombophlebitis involving the antecubital vein in the left upper extremity. This was treated with antibiotics and warm compresses and she is improving from this. Hospital stay was also complicated by hyperkalemia on admission for which Aldactone and losartan were initially held. Only Aldactone will be resumed for now and patient instructed to do BMP in 1 week. Coumadin was discontinued and she has been switched to Eliquis per cardiology recommendations. Patient is instructed to follow with primary care provider in 1 week. OTHER PROBLEMS/DIAGNOSIS: Principal Problem: Rectus sheath hematoma, initial encounter Active Problems: Atrial fibrillation (HCC) Hypothyroidism Essential hypertension Acute on chronic diastolic congestive heart failure (HCC) Localized edema Shortness of breath Resolved Problems: * No resolved hospital problems. * OPERATIONS PERFORMED WHILE IN THE HOSPITAL: None IMPORTANT TEST/PROCEDURES: No procedures performed TEST RESULTS NOT AVAILABLE AT THIS TIME: No pending results Discharge Disposition Discharge Disposition: Home With Home Care Additional Provider to Provider Information: Patient is a pleasant 89-year-old female presents as transfer from [facility] for rectus sheath hematoma. She was initially being treated was referred abdominal pain. She was found to have significantly elevated INR. She was treated with vitamin K and followed by surgical team. Surgery recommended monitoring. Subcu heparin was resumed. Cardiology was consulted to assist with selection of anticoagulation patient previously on Coumadin. Echocardiogram was ordered to evaluate for possible heart failure. Patient had right AC aVF that became painful on reportedly was draining purulence. She started on antibiotics orally and topically and IV was removed. She is currently awaiting echocardiogram and final anticoagulation plan. Treatment Team: Attending Provider: Lisa Fish MD Consulting: Susana Rodriguez MD Primary Service: DONAVON BUTLER Consulting: Adelia Perry MD FINAL DIAGNOSIS: Rectus sheath hematoma Active Hospital Problems Diagnosis POA Rectus sheath hematoma, initial encounter Yes Atrial fibrillation (HCC) Yes Localized edema Unknown Shortness of breath Unknown Acute on chronic diastolic congestive heart failure (HCC) Yes Essential hypertension Yes Hypothyroidism Yes Resolved Hospital Problems No resolved problems to display. Transitions of Care Critical Issues: LAB MONITORING NEEDED: BMP to be drawn in 1 week SPECIALIST FOLLOW-UP: Follow-up with primary care provider in 1 week LABS AND PROCEDURES PENDING AT DISCHARGE: No pending results. FOLLOW-UP APPOINTMENTS ALREADY SCHEDULED WITH A [facility] PROVIDER: No future appointments. Discharge Information Row Name ED to Hosp-Admission (Current) from 01/31/2025 in [facility] Start of Care 02/09/25 ALLERGIES Allergen Reactions Codeine Hives Darvocet A500 [Prop* Intolerance Venom-Honey Bee Unknown DISCHARGE MEDICATION: Medication List START taking these medications apixaban 5 mg tab(s) Commonly known as: ELIQUIS Take 1 tablet by mouth two times a day. bacitracin 500 unit/gram ointment Apply to affected area two times a day for 5 days. cephALEXin 500 mg capsule Commonly known as: KEFLEX Take 1 capsule by mouth every 8 hours for 13 doses. doxycycline hyclate 100 mg capsule Commonly known as: VIBRAMYCIN Take 1 capsule by mouth every 12 hours at 6 am and 6 pm for 8 doses. CONTINUE taking these medications alendronate 70 mg tablet Commonly known as: FOSAMAX atorvastatin 20 mg tablet Commonly known as: LIPITOR Take 1 tablet by mouth once daily. B COMPLEX Tber Generic drug: B Complex Vitamins CALCIUM + D 600 mg-5 mcg (200 unit) Tab Generic drug: calcium carbonate 600 mg-cholecalciferol 200 units dapagliflozin propanediol 10 mg tablet Commonly known as: FARXIGA Fish OiL 1,000 (120-180) mg Cap Generic drug: Ilavi-2-QGW-EPA-Fish Oil FOLIC ACID PO GLUCOSAMINE CHONDROITIN MAXSTR 500-400 mg Cap Generic drug: Oynnneyclic-Lpbggrcoj-Ddz C-Mn metoprolol tartrate (short acting) 100 mg tablet Commonly known as: LOPRESSOR multivitamin tablet spironolactone 25 mg tablet Commonly known as: ALDACTONE SYNTHROID 112 mcg tablet Generic drug: levothyroxine TylenoL 325 mg tablet Generic drug: acetaminophen VITAMIN B-12 1,000 mcg Tab Generic drug: cyanocobalamin VITAMIN C 500 mg tablet Generic drug: ascorbic acid (vitamin C) Vitamin D-3 50 mcg (2,000 unit) Cap Generic drug: Cholecalciferol (Vitamin D3) STOP taking these medications COUMADIN 3 mg tablet Generic drug: warfarin losartan 50 mg tablet Commonly known as: COZAAR Where to Get Your Medications These medications were sent to [id number] - [place] [address] - [address] - [phone] [address] [place] [id number] apixaban 5 mg tab(s) bacitracin 500 unit/gram ointment cephALEXin 500 mg capsule doxycycline hyclate 100 mg capsule Discharge Physical Exam: VITAL SIGNS: BP 100/64 Pulse 107 Temp 36.8 ?C (98.3 ?F) (Oral) Resp 20 Ht 172.7 cm (5' 8) Wt 84.4 kg (186 lb 1.1 oz) SpO2 95% BMI 28.29 kg/m? GENERAL: Alert, no distress, cooperative SKIN: Skin color, texture, turgor normal. No rashes or lesions. HEAD/SINUSES: No significant findings LUNGS: Lungs clear to auscultation, Good diaphragmatic excursion ABDOMEN: Resolving ecchymosis bilateral flanks EXTREMITIES: Extremities normal, no deformities, edema, clubbing or skin discoloration. Good capillary refill., No ulcers The remainder of the physical exam is noncontributory. Additional Information Additional Health Information I Need to Know After I Leave the Hospital No additional instructions. The patient's risk for 30-day readmission is determined using the following contributing factors: Predictive Model Details 12% (Low) Factor Value Calculated 02/08/2025 05:21 19% Hospital Unit [place] [facility] READMISSION RISK Model -15% [facility] -11% Admissions (365d) 1 -10% Current Age 89 -8% ED visits (365d) 0 8% Diagnosis Count 18 -6% Observations (365d) 0 5% Sodium (Avg) 131.8 5% Mark Anthony Scale 19 -4% ED Encounter No Plan of care discussed with Provider, RN, Patient 40 minutes spent in discharge planning and coordination of care. SIGNATURE: Lisa Fish MD DATE: February 08, 2025 TIME: 4:43 PM CASE MANAGEM Observed: 02/08/2025 3:04 PM Status: COMPLETED [id number] Author: STEVE VALDERRAMA RN Service: Care Management Author Type: Registered Nurse Type: Care Mgt Progress Note Filed: 02/08/2025 15:05 Note Text: CARE MANAGEMENT PROGRESS NOTE SERVICE DATE: 02/08/2025 SERVICE TIME: 1504 LOS: 8 days Needs Prior to Discharge: To Be Determined [facility] can accept and do SOC tomorrow. Patient informed and agreeable. Home care order sent. SIGNATURE: Steve Valderrama RN PATIENT NAME: Ana Maria Avalos DATE: February 08, 2025 TIME: 3:04 PM ECHO Observed: 02/08/2025 12:45 PM Status: F Source: [facility] Echocardiography Report: Tra nsthoracic Echo [facility] Date of service: 02/08/2025 12:45:03 PM [facility] Ordering physician: HIMANSHU DECKER Exam indication: Initial evaluation of Heart Failure Technologist: Evie Pantoja Interpreting physician: Dakotah Cuenca MD PATIENT: Name: MRS. ANA MARIA AVALOS : 1935 Age: 89 years Gender: F History of hypertension, arrhythmia and dyslipidemia. Primary rhythm: atrial fib. Height: 172.70 cm BSA: 1.97 m Weight: 80.70 kg BMI: 27.1 kg/m Heart rate 98 bpm Blood pressure 116/76 mmHg Color Doppler was utilized to interrogate the cardiac valves assessed and spectral Doppler was utilized to determine the flow velocities and pressure gradients reported in this exam. MEASUREMENTS: Value Indexed Normal Max aortic dimension 3.5 cm Ao < 3.8 Left atrial volume 135 ml (biplane A-L) 69 ml/m Edwin <= 34 LV ID (diastole) 4.1 cm (2D) 2.07 cm/m LV ID (systole) 2.8 cm (2D) 1.40 cm/m IVS, leaflet tips 0.8 cm (2D) Posterior wall thickness 1.1 cm (2D) Left ventricular mass 118 g (2D) 60 g/m LV end diastolic volume 62 ml (2D biplane) 31.6 ml/m 29<=EDVi<62 Ejection Fraction 55 % (visual est.) EF > 54 FINDINGS: LEFT VENTRICLE The left ventricle is normal in size. There is no left ventricular hypertrophy. Left ventricular systolic function is normal regionally. Left ventricular diastolic function was not evaluated due to AF. Wall Motion: All scored segments are normal. RIGHT VENTRICLE The right ventricle is dilated. Right ventricular systolic function is moderately decreased. RV systolic tissue Doppler velocity is 9.0 cm/s. Tricuspid annular displacement is 1.5 cm. Estimated right ventricular systolic pressure is 52 mmHg consistent with moderate pulmonary hypertension (but may be underestimated due to severe TR). Estimated right atrial pressure is 15 mmHg based on IVC assessment. LEFT ATRIUM The left atrial cavity is severely dilated. RIGHT ATRIUM The right atrial cavity is severely dilated. Inferior Vena Cava: The inferior vena cava appears dilated measuring 3.8 cm. The vessel decreases less than 50 percent with inspiration. MITRAL VALVE There is mild mitral annular calcification observed posterior. There is mild (1+) mitral valve regurgitation. There is no thickening. TRICUSPID VALVE There is severe (4+) tricuspid valve regurgitation caused by annular dilatation. There is no thickening. The hepatic venous pattern showed reversed systolic flow. AORTIC VALVE There is no aortic valve stenosis. There is no aortic valve regurgitation. Tricuspid aortic valve. There is mild thickening. PULMONIC VALVE The pulmonic valve cusps are structurally normal. There is trace (trace - 1+) pulmonic valve regurgitation. There is no thickening. AORTA The visualized aorta is normal in size. Measurements - Mid ascending aorta 3.5 cm. PULMONARY ARTERIES The pulmonary arteries are unseen or not interrogated. The main pulmonary artery diameter is 3.1 cm (diastolic). INTERATRIAL SEPTUM There is no evidence of intracardiac shunting as detected by Doppler. INTERVENTRICULAR SEPTUM There is systolic and diastolic flattening of the interventricular septum consistent with RV pressure and volume overload. There is no flow through the interventricular septum as detected by Doppler. PERICARDIUM There is no pericardial effusion. CONCLUSIONS: - Exam indication: Initial evaluation of Heart Failure - The left ventricle is normal in size. There is no left ventricular hypertrophy. Left ventricular systolic function is normal. EF = 55 5% (visual est.) Left ventricular diastolic function was not evaluated due to AF. - The right ventricle is dilated. Right ventricular systolic function is moderately decreased. - Severe biatrial enlargement. - There is severe (4+) tricuspid valve regurgitation caused by annular dilatation and lack of leaflet coaptation (clip 17). - Estimated right ventricular systolic pressure is 52 mmHg consistent with moderate pulmonary hypertension (but may be underestimated due to severe TR and dilated, dysfunctional right ventricle). Estimated right atrial pressure is 15 mmHg based on IVC assessment. - Exam was compared with the prior CC echocardiographic exam performed on 03/01/24. When compared to report of prior study, the right ventricle is dilated and dysfunctional on current study. * * * Final * * * CC [employer] : [id number] CASE MANAGEM Observed: 02/08/2025 10:40 AM Status: COMPLETED Source: [facility] HNO ID: [id number] Author: STEVE VALDERRAMA RN Service: Care Management Author Type: Registered Nurse Type: Care Mgt Progress Note Filed: 02/08/2025 10:42 Note Text: CARE MANAGEMENT PROGRESS NOTE SERVICE DATE: 02/08/2025 SERVICE TIME: 1040 LOS: 8 days Needs Prior to Discharge: To Be Determined Chart reviewed. Informed patient that [facility] can draw INR labs if she discharges on coumadin. Patient requested referral to [facility] after discussing home care with friend. Referral sent. Awaiting ECHO. CM will continue to follow. SIGNATURE: Steve Valderrama RN PATIENT NAME: Ana Maria Avalos DATE: February 08, 2025 TIME: 10:40 AM CBC W AUTO DIFF BLD Collected: 02/08/2025 8:[address] atus: F Source: [facility] Order Comment: Specimen Type : BLOOD SPECIMEN Ordering Facility: [facility] Address: [address] [place] [address] TYPE CODE TESTS RESULT OUT OF RANGE REFERENCE UNITS LAB 6690-2(LOINC) WBC # Bld Auto 4.43 3.70-11.00 k/uL LAB 789-8(LOINC) RBC # Bld Auto 3.56 Low 3.90-5.20 m/ uL LAB 718-7(LOINC) Hgb Bld-mCnc 11.2 Low 11.5-15.5 g/dL LAB 4544-3(LOINC) Hct VFr Bld Auto 36.0 36.0-46.0 % LAB 787-2([facility]) MCV RBC Auto 101.1 High 80.0-100.0 fL LAB 785-6([facility]) MCH RBC Qn Auto 31.5 26.0-34.0 p g LAB 786-4([facility]) MCHC RBC Auto-mCnc 31.1 30.5-36.0 g/dL LAB 37597-6([facility]) RDW RBC-Rto 16.2 High 11.5-15.0 % LAB 777-3([facility]) Platelet # Bld Auto 155 150-400 k/uL LAB 25197-1([facility]) PMV Bld Auto 9.1 9.0-12.7 fL LAB 770-8([facility]) Neutrophils/leuk NFr Bld Auto 72.1 % LAB 751-8([facility]) Neutrophils # Bld Auto 3.20 1.45-7.50 k/uL LAB 736-9([facility]) Lymphocytes/leuk NFr Bld Auto 9.3 % LAB 731-0([facility]) Lymphocytes # Bld Auto 0.41 Low 1.00-4.00 k/uL LAB 5905-5([facility]) Monocytes/leuk NFr Bld Auto 16.7 % LAB 742-7([facility]) Monocytes # Bld Auto 0.74 <0.87 k/uL LAB 713-8([facility]) Eosinophil/leuk NFr Bld Auto 0.5 % LAB 711-2([facility]) Eosinophil # Bld Auto <0.03 <0.46 k/uL LAB 706-2([facility]) Basophils/leuk NFr Bld Auto 0.9 % LAB 704-7([facility]) Basophils # Bld Auto 0.04 <0.11 k/uL LAB 95143-0([facility]) Imm Granulocytes/mavis k NFr Bld Auto 0.5 % LAB 73512-4([facility]) Imm Granulocytes # Bld Auto <0.03 <0.10 k/uL LAB 64813-5([facility]) nRBC/100 WBC Bld-Rto 0.0 /100 WBC LAB 771-6([facility]) nRBC # Bld Auto <0.01 <0.01 k/u L LAB 04677-9(LOINC) Differential method Bld Auto Performed By: #### [id number] # ### [facility] CLIA [id number] [address] [place] [id number] [place] MET[place] 2000 PNL SERPL Collected: 04/2025 8:40 AM Status: F Source: [facility] Order Comment: Specimen Type : BLOOD SPECIMEN Ordering Facility: [facility] Address: [facility] [place] [address] TYPE CODE TESTS RESULT OUT OF RANGE REFERENCE UNITS LAB 2345-7(LOINC) Glucose SerPl-mCnc 81 74-99 mg/dL Result Comment: The [place] [employer] (ADA) provides guidance for cutoff values for fasting glucose and random glucose. The ADA defines fasting as no caloric intake for at least 8 hours. Fasting plasma glucose results between 100 to 125 mg/dL indicate increased risk for diabetes (prediabetes). Fasting plasma glucose results greater than or equal to 126 mg/dL meet the criteria for diagnosis of diabetes. In the absence of unequivocal hyperglycemia, results should be confirmed by repeat testing. In a patient with classic symptoms of hyperglycemia or hyperglycemic crisis, random plasma glucose results greater than or equal to 200 mg/dL meet the criteria for diagnosis of diabetes. Reference: Standards of Medical Care in Diabetes 2016, [place] [employer] Association. Diabetes Care. 2016.39(Suppl 1). LAB 3094-0(LOINC) BUN SerPl-mCnc 21 7-21 mg/ dL LAB 2160-0(LOINC) Creat SerPl-mCnc 0.91 0.58-0.96 mg/dL LAB 2951-2(LOINC) Sodium SerPl-sCnc 129 Low 136-144 mmol/L LAB 2823-3(LOINC) Potassium SerPl-sCnc 4.5 3.7-5.1 mmol/L LAB 2075-0(LOINC) Chloride SerPl-sCnc 98 98-107 mmol/L LAB 2028-9(LOINC) CO2 SerPl-sCnc 18 Low 22-30 mmo l/L LAB 1863-0(LOINC) Anion Gap4 SerPl-sCnc 13 8-15 mmol/L LAB 40200-5(LOINC) Calcium SerPl-mCnc 8.0 Low 8.5-10.2 mg/dL LAB 50082-9(LOINC) Creatinine + eGFR Pnl SerPlBld 61 >=60 mL/min/1. 73m??? Result Comment: Estimated Gl omerular Filtration Rate (eGFR) is calculated using the 2020 CKD-EPI creatinine equation. This equation utilizes serum creatinine, sex, and age as parameters. The creatinine assay has traceable calibration to isotope dilution-mass spectrometry. Refer to KDIGO guidelines for clinical interpretation. In patients with unstable renal function, e.g. those with acute kidney injury, the eGFR may not accurately reflect actual GFR. Performed By: #### 40005-7 # ### [facility] CLIA [id number] [address] PROGRESS Observed: 02/07/2025 4:45 PM Status: COMPLETED Source: [facility] HNO ID: [id number] Author: HIMANSHU DECKER DO Service: Hospital Medicine Author Type: Physician Type: Progress Notes Filed: 02/07/2025 16:53 Note Text: DEPARTMENT OF HOSPITAL MEDICINE PROGRESS NOTE SERVICE DATE: 02/07/2025 SERVICE TIME: 4:45 PM Hospital Medicine/Primary Attending: Himanshu Decker DO NIGHT AND WEEKEND COVERAGE: After 7pm please page [phone] SUBJECTIVE: Patient seen examined at bedside. Reports some pain at right IV site with erythema and reported pus draining from it earlier. Otherwise denies any complaints or concerns. Denies any change in abdominal discomfort. OBJECTIVE: PHYSICAL EXAM: BP 108/58 Pulse 103 Temp (Src) 98.5 (Oral) Resp 18 Ht 5' 8 (1.73m) Wt 179 lb 10.8 oz (81.5kg) SpO2 95% BMI 27.33 kg/(m2). O2 Therapy: Room Air General - Alert, NAD, Calm ENT- no icterus, MMM CV -irregularly irregular S1 S2, No M/R/G RESP - CTA B/L No wheezes, ronchi, rales ABD - soft, NT, ND, NM +BS, bilateral flank and periumbilical bruising slowly fading/receding from previously outlined area Neuro- Conversant, follows commands, moves all ext, gross sensation intact Ext:Non-tender, 2+ edema Skin: warm, no rash MEDICATIONS: Current Facility-Administered Medications Medication Dose Route Frequency levothyroxine 112 mcg tab(s) (SYNTHROID) 112 mcg ORAL BEFORE BREAKFAST DAILY NaCl 0.9% iv flush bag 20 mL INTRAVENOUS PRN aluminum-magnesium hydroxide-simethicone 200-200-20 mg/5 mL 30 mL 30 mL ORAL DAILY PRN ondansetron 4 mg tab(s) (ZOFRAN) 4 mg ORAL q 6 H PRN Or ondansetron (PF) 4 mg injection (ZOFRAN) 4 mg INTRAVENOUS q 6 H PRN acetaminophen 650 mg tab(s) (TYLENOL) 650 mg ORAL q 6 H PRN melatonin 3 mg tab(s) 3 mg ORAL AT BEDTIME PRN dapagliflozin propanediol 10 mg tab(s) (FARXIGA) 10 mg ORAL DAILY WITH BREAKFAST atorvastatin 20 mg tab(s) (LIPITOR) 20 mg ORAL AT BEDTIME metoprolol tartrate (short acting) 100 mg tab(s) (LOPRESSOR) 100 mg ORAL BID dextrose 15 gram/32 mL 15 g (TRUEPLUS) 15 g ORAL PRN Or glucagon 1 mg injection 1 mg INTRAMUSCULAR PRN Or dextrose 10% iv bolus 12.5 g INTRAVENOUS PRN heparin 5,000 Units injection 5,000 Units SUBCUTANEOUS q 12 H polyvinyl alcohol-povidone 1.4-0.6 % 1 drop (REFRESH) 1 drop BOTH EYES PRN hemorrhoid ointment ointment (PREPARATION H) RECTAL PRN sodium chloride 0.9 % (flush) 2-10 mL (BD POSIFLUSH) 2-10 mL INTRAVENOUS DIRECTED PRN And perflutren lipid microspheres 1.1 mg/mL 1.3 mL injection (DEFINITY) 1.3 mL INTRAVENOUS DIRECTED PRN DATA: Diagnostic tests reviewed for today's visit: CBC: Recent Labs 02/07/25456 WBC 4.83 RBC 3.38* HB 10.8* HCT 33.4* PLT 158 MCV 98.8 MCH 32.0 MPV 9.7 Coags: Recent Labs 02/07/25456 INR 1.1 BMP: No results for input(s): NA, K, CHLOR, CO2, BUN, CREAT, GLUC in the last 24 hours. CMP: No results for input(s): NA, K, CHLOR, CO2, BUN, CREAT, GLUC, TPROT, CA, MG, ALBUMIN, TBILI, ALKPHOS, ALT, AST, ANION in the last 24 hours. Cardiac Enzymes: No results for input(s): CK, MB, CKMB, TROPT in the last 24 hours. Liver Function, Amylase, Lipase: No results for input(s): TPROT, ALB, ALT, AST, ALKPHOS, TBILI, AMYLASE, LIPASE, LACTATE in the last 24 hours. MG/PHOS: No results for input(s): MG, P in the last 24 hours. Renal Panel: No results for input(s): ALBUMIN, CREAT, BUN, GLUC, CA, P, CHLOR, K, CO2, NA in the last 24 hours. Heme: No results for input(s): RETICP, ABSRETIC, LD, KEVAN, FE, TIBC,TRANSFERSAT in the last 24 hours. Albumin/Creat Ratio (mg/g) Date Value 01/04/2014 2 Assessment/Plan This is a 89 year old female with: #Rectus sheath hematoma- In the setting of supratherapeutic INR - Warfarin still held at this time appreciate cardiology recs- echo pending - Telemetry - Continue monitor hemoglobin closely #R anti cubital IV site erythema with reported purulent drainage - Start Doxy, bacitracin ointment, cold compress and elevation-monitor #Atrial fibrillation on chronic warfarin with supratherapeutic INR -Warfarin on hold monitor INR see above - Continue metoprolol May need to reduce dose if blood pressure remains on lower side -Cardio following echo pending #CHRISTOPHER v CKD improving-renal function improved -Monitor BMP -Hold losartan/Aldactone due to christopher and hypotension #HFpEF- Last EF 57% #moderately- severe (3+) tricuspid valve regurgitation #mod pulm htn - Continue Farxiga 10 mg daily - Continue metoprolol -Repeat BMP pending -Repeat echo pending # Hyperkalemia stable - Repeat BMP pending #hyponatremia improved -repeat BMP pending #Hypertension pressure on the low side - Monitor vitals, continue current blood pressure meds #Hyperlipidemia - Atorvastatin 20 mg daily #Hypothyroidism - Continue levothyroxine 112 mcg daily VTE Prophylaxis: scd, subcu heparin Disposition: Home Plan of care discussed with: Provider, RN, Patient. Problem List Rectus sheath hematoma, initial encounter (POA: Yes) Atrial fibrillation (HCC) (POA: Yes) Hypothyroidism (POA: Yes) Essential hypertension (POA: Yes) Acute on chronic diastolic congestive heart failure (HCC) (POA: Yes) Localized edema (POA: Status not on file) Shortness of breath (POA: Status not on file) This note was generated using Deep-Secureon voice dictation. All reasonable efforts were made to correct dictation errors. SIGNATURE: Himanshu Decker DO PATIENT NAME: Ana Maria Avalos DATE: February 07, 2025 TIME: 4:45 PM PAGER/CONTACT #: My Pager CASE MANAGEM Observed: 02/07/2025 3:50 PM Status: COMPLETED Source: [facility] HNO ID: [id number] Author: STEVE VALDERRAMA RN Service: Care Management Author Type: Registered Nurse Type: Care Mgt Progress Note Filed: 02/07/2025 15:51 Note Text: CARE MANAGEMENT PROGRESS NOTE SERVICE DATE: 02/07/2025 SERVICE TIME: 1550 LOS: 7 days Needs Prior to Discharge: To Be Determined, Home Care Order Chart reviewed. Informed patient that shopp [facility] can accept. Patient is agreeable to use shopp. Will need home care order placed prior to discharge. SIGNATURE: Steve Valderrama RN PATIENT NAME: Ana Maria Avalos DATE: February 07, 2025 TIME: 3:50 PM PT ED Observed: 02/07/2025 1:40 PM Status: COMPLETED Source: [facility] HNO ID: [id number] Author: DIONICIO SHERIDAN DTR Service: Nutrition Therapy Author Type: Sail Cutter Type: Patient Education Filed: 02/07/2025 13:40 Note Text: NUTRITION THERAPY PATIENT EDUCATION SERVICE DATE: 02/07/2025 SERVICE TIME: 1049 TOPIC: Congestive Heart failure LEARNING ASSESSMENT Individuals Assessed: Patient Preferred Learning Method: No Preference Barriers to Learning: None Evident LEARNING RESPONSE Instruction Provided to: Patient Patient / Family Response: Verbalizes Understanding and Recommend Continued Instruction Method of Instruction: Teach Back . Individual instruction Written instruction/Handouts Verbal instruction Material(s) Provided to Patient: Education Materials Provided Nutrition Education [facility]: Your Sodium Controlled Diet MNT Billing: $ Routine Care : 2 units SIGNATURE: Dionicio Sheridan DTR PATIENT NAME: Ana Maria Avalos DATE: February 07, 2025 TIME: 1:40 PM PAGER: NUTRITION Observed: 02/07/2025 1:36 PM Status: COMPLETED Source: [facility] HNO ID: [id number] Author: DIONICIO SHERIDAN DTR Service: Nutrition Therapy Author Type: Sail Cutter Type: Nutrition Filed: 02/07/2025 13:40 Note Text: NUTRITION THERAPY SWING TYPE LATHE OPERATOR NOTE SERVICE DATE: 02/07/2025 SERVICE TIME: Start Time: 1019 Visit Type: Length of Stay, Diet Education Patient reports poor appetite prior to this admission over 1-2 months. Weight loss is probably masked by fluid retention. Patient dislikes current diet. Unable to liberalize diet related to hyperlipidemia diagnosis. Plan of Care: Follow-Up: Tech Reassessment Nursing Admission Assessment Malnutrition Score: 1 Nutrition Intake: Diet Orders (From admission, onward) Start Ordered 02/04/25 1530 DIET HEART HEALTHY START NOW Question Answer Comment Heart Healthy 2 GM SODIUM (LOW SAT FAT) Fluid Restriction 1800 ML 02/04/25 1518 Average intake over: Unable to determine Appetite: Good (Po intake 50-100%) GI Symptoms: None Anthropometrics: Weight: 81.5 kg (179 lb 10.8 oz) Body mass index is 27.32 kg/m?. Usual Weight: 68.5 kg (151 lb) (patient reports intentional weight loss prior to this admission) Weight Change: Increased Food Preferences: dislikes some of hospital offerings MNT Billing: $ Routine Care : 2 units Time Spent (mins): 30 SIGNATURE: Dionicio Sheridan DTR PATIENT NAME: Ana Maria Avalos DATE: February 07, 2025 TIME: 1:36 PM CBC W AUTO DIFF BLD Collected: 02/07/2025 4:[address] atus: F Source: [facility] Order Comment: Specimen Type : BLOOD SPECIMEN Ordering Facility: [facility] Address: [address] [place] [address] TYPE CODE TESTS RESULT OUT OF RANGE REFERENCE UNITS LAB 6690-2(LOINC) WBC # Bld Auto 4.83 3.70-11.00 k/uL LAB 789-8(LOINC) RBC # Bld Auto 3.38 Low 3.90-5.20 m/ uL LAB 718-7(LOINC) Hgb Bld-mCnc 10.8 Low 11.5-15.5 g/dL LAB 4544-3([facility]) Hct VFr Bld Auto 33.4 Low 36.0-46.0 % LAB 787-2([facility]) MCV RBC Auto 98.8 80.0-100.0 fL LAB 785-6([facility]) MCH RBC Qn Auto 32.0 26.0-34.0 p g LAB 786-4([facility]) MCHC RBC Auto-mCnc 32.3 30.5-36.0 g/dL LAB 16174-0([facility]) RDW RBC-Rto 16.0 High 11.5-15.0 % LAB 777-3([facility]) Platelet # Bld Auto 158 150-400 k/uL LAB 22382-0([facility]) PMV Bld Auto 9.7 9.0-12.7 fL LAB 770-8([facility]) Neutrophils/leuk NFr Bld Auto 70.9 % LAB 751-8([facility]) Neutrophils # Bld Auto 3.42 1.45-7.50 k/uL LAB 736-9([facility]) Lymphocytes/leuk NFr Bld Auto 10.8 % LAB 731-0([facility]) Lymphocytes # Bld Auto 0.52 Low 1.00-4.00 k/uL LAB 5905-5([facility]) Monocytes/leuk NFr Bld Auto 15.7 % LAB 742-7([facility]) Monocytes # Bld Auto 0.76 <0.87 k/uL LAB 713-8([facility]) Eosinophil/leuk NFr Bld Auto 1.0 % LAB 711-2([facility]) Eosinophil # Bld Auto 0.05 <0.46 k/uL LAB 706-2([facility]) Basophils/leuk NFr Bld Auto 0.6 % LAB 704-7([facility]) Basophils # Bld Auto 0.03 <0.11 k/uL LAB 87661-9([facility]) Imm Granulocytes/mavis k NFr Bld Auto 1.0 % LAB 76963-3([facility]) Imm Granulocytes # Bld Auto 0.05 <0.10 k/uL LAB 04356-6([facility]) nRBC/100 WBC Bld-Rto 0.0 /100 WBC LAB 771-6(LOINC) nRBC # Bld Auto <0.01 <0.01 k/u L LAB 30360-9(INC) Differential method Bld Auto Performed By: #### [id number] # ### [facility] CLIA [id number] [address] PT PNL PPP Collected: 02/07/2025 4:57 AM Status: F Source: [facility] Order Comment: Specimen Type : BLOOD SPECIMEN Ordering Facility: [facility] Address: [address] [place] [address] TYPE CODE TESTS RESULT OUT OF RANGE REFERENCE UNITS LAB 5902-2([facility]) Prothrombin time 12.3 9.7-13.0 sec LAB 6301-6([facility]) INR PPP 1.1 0.9-1.3 Result Comment: Vitamin K An tagonist (VKA) Therapeutic Range: INR 2 to 3 (Target INR of 2.5) Note: For patients treated with VKA drugs, such as warfarin, the [employer] 2012 Guideline recommends a therapeutic INR range of 2 to 3 (target INR of 2.5). This recommendation includes high-risk patients with antiphospholipid syndrome with previous arterial or venous thromboembolism, current-generation mechanical or bioprosthetic aortic heart valve replacement. Note: Patients with mechanical aortic valve replacement and additional risk factors for thromboembolic events (atrial fibrillation, previous thromboembolism, LV dysfunction, hypercoagulable conditions) or an older generation mechanical AVR (i.e., ball in-Cage) or any mechanical MVR should have a INR therapeutic range of 2.5 to 3.5 (target INR of 3). Timothy GH, et al. Chest 2012, 141:7S-47S Madelaine RA, et al. JACC 2017, 70: 252-289 Performed By: #### [id number] # ### [facility] CLIA [id number] [address] PROGRESS Observed: 02/07/2025 4:45 AM Status: COMPLETED Source: [facility] HNO ID: [id number] Author: MARVIN CASTILLO APRN.SYSTEM CONTROLLER Service: Hospital Medicine Author Type: Nurse Practitioner Type: Progress Notes Filed: 02/07/2025 06:31 Note Text: Nurse (Ami Kelsey, LISBET) informed me that she discontinued the right AC IV due to redness. She also states that a photo was uploaded under the LDA- Avatar section in nursing flowsheet, which I reviewed. She stated that upon removing IV, she also saw what appeared to be pus. She states that the site was cleansed and a band-aid was applied. Upon my arrival to room for assessment, nurse reported that the redness had decreased. Per my assessment, there is mild redness located right antecubital space with minimal soft tissue swelling. Nurse removed band-aid per my request and applied a soft guaze pad. There wasn't any visible drainage or pus on my exam. Patient endorse minor discomfort since having IV removed. Peripheral pulse intact. Nurse instructed to monitor and assess for signs of increasing redness or signs of infection. WILIAN Boswell ([facility], pager # [phone]) PROGRESS Observed: 02/06/2025 5:26 PM Status: COMPLETED [facility] [id number] Author: HIMANSHU DECKER DO Service: Hospital Medicine Author Type: Physician Type: Progress Notes Filed: 02/06/2025 17:38 Note Text: DEPARTMENT OF HOSPITAL MEDICINE PROGRESS NOTE SERVICE DATE: 02/06/2025 SERVICE TIME: 5:26 PM Hospital Medicine/Primary Attending: Himanshu Decker DO NIGHT AND WEEKEND COVERAGE: After 7pm please page [phone] SUBJECTIVE: Patient seen examined at bedside. No new complaints or concerns reported, no events reported overnight. Denies any pain OBJECTIVE: PHYSICAL EXAM: BP 110/76 Pulse 109 Temp (Src) 98.6 (Oral) Resp 18 Ht 5' 8 (1.73m) Wt 177 lb 14.6 oz (80.7kg) SpO2 94% BMI 27.06 kg/(m2). O2 Therapy: Room Air General - Alert, NAD, Calm ENT- no icterus, MMM CV -irregularly irregular S1 S2, No M/R/G RESP - CTA B/L No wheezes, ronchi, rales ABD - soft, NT, ND, NM +BS, left and right flank bruising seems to be fading compared to previous, noticed also small anterior abdominal bruising fading, Neuro- Conversant, follows commands, moves all ext, gross sensation intact Ext:Non-tender, 2+ edema Skin: warm, no rash MEDICATIONS: Current Facility-Administered Medications Medication Dose Route Frequency levothyroxine 112 mcg tab(s) (SYNTHROID) 112 mcg ORAL BEFORE BREAKFAST DAILY NaCl 0.9% iv flush bag 20 mL INTRAVENOUS PRN aluminum-magnesium hydroxide-simethicone 200-200-20 mg/5 mL 30 mL 30 mL ORAL DAILY PRN ondansetron 4 mg tab(s) (ZOFRAN) 4 mg ORAL q 6 H PRN Or ondansetron (PF) 4 mg injection (ZOFRAN) 4 mg INTRAVENOUS q 6 H PRN acetaminophen 650 mg tab(s) (TYLENOL) 650 mg ORAL q 6 H PRN melatonin 3 mg tab(s) 3 mg ORAL AT BEDTIME PRN dapagliflozin propanediol 10 mg tab(s) (FARXIGA) 10 mg ORAL DAILY WITH BREAKFAST atorvastatin 20 mg tab(s) (LIPITOR) 20 mg ORAL AT BEDTIME metoprolol tartrate (short acting) 100 mg tab(s) (LOPRESSOR) 100 mg ORAL BID dextrose 15 gram/32 mL 15 g (TRUEPLUS) 15 g ORAL PRN Or glucagon 1 mg injection 1 mg INTRAMUSCULAR PRN Or dextrose 10% iv bolus 12.5 g INTRAVENOUS PRN heparin 5,000 Units injection 5,000 Units SUBCUTANEOUS q 12 H polyvinyl alcohol-povidone 1.4-0.6 % 1 drop (REFRESH) 1 drop BOTH EYES PRN hemorrhoid ointment ointment (PREPARATION H) RECTAL PRN sodium chloride 0.9 % (flush) 2-10 mL (BD POSIFLUSH) 2-10 mL INTRAVENOUS DIRECTED PRN And perflutren lipid microspheres 1.1 mg/mL 1.3 mL injection (DEFINITY) 1.3 mL INTRAVENOUS DIRECTED PRN DATA: Diagnostic tests reviewed for today's visit: CBC: Recent Labs 02/06/25 0636 WBC 5.31 RBC 3.32* HB 10.5* HCT 32.5* PLT 141* MCV 97.9 MCH 31.6 MPV 8.9* Coags: Recent Labs 02/06/25 0414 INR 1.3 BMP: No results for input(s): NA, K, CHLOR, CO2, BUN, CREAT, GLUC in the last 24 hours. CMP: No results for input(s): NA, K, CHLOR, CO2, BUN, CREAT, GLUC, TPROT, CA, MG, ALBUMIN, TBILI, ALKPHOS, ALT, AST, ANION in the last 24 hours. Cardiac Enzymes: No results for input(s): CK, MB, CKMB, TROPT in the last 24 hours. Liver Function, Amylase, Lipase: No results for input(s): TPROT, ALB, ALT, AST, ALKPHOS, TBILI, AMYLASE, LIPASE, LACTATE in the last 24 hours. MG/PHOS: No results for input(s): MG, P in the last 24 hours. Renal Panel: No results for input(s): ALBUMIN, CREAT, BUN, GLUC, CA, P, CHLOR, K, CO2, NA in the last 24 hours. Heme: No results for input(s): RETICP, ABSRETIC, LD, KEVAN, FE, TIBC,TRANSFERSAT in the last 24 hours. Albumin/Creat Ratio (mg/g) Date Value 01/04/2014 2 Assessment/Plan This is a 89 year old female with: #Rectus sheath hematoma- In the setting of supratherapeutic INR - Warfarin still held at this time appreciate cardiology recs echo pending-reordered echo as was ordered Limited but was able to change to full echo - Telemetry - Every 4 hours vital signs - Continue monitor hemoglobin closely #Atrial fibrillation on chronic warfarin with supratherapeutic INR -Warfarin on hold monitor INR see above - Continue metoprolol May need to reduce dose if blood pressure remains on lower side -Cardio consult as above #CHRISTOPHER v CKD improving-renal function improved -Monitor BMP -Hold losartan/Aldactone due to christopher and hypotension #HFpEF- Last EF 57% #moderately- severe (3+) tricuspid valve regurgitation #mod pulm htn - Continue Farxiga 10 mg daily - Continue metoprolol twice daily hold blood pressure below 100 systolic-May need to adjust dosing to allow for diuretic if continues to develop swelling in her legs -Repeat BMP pending # Hyperkalemia stable - Repeat BMP pending #hyponatremia-does remain relatively stable -repeat BMP pending #Hypertension pressure on the low side - Monitor vitals, continue current blood pressure meds #Hyperlipidemia - Atorvastatin 20 mg daily #Hypothyroidism - Continue levothyroxine 112 mcg daily VTE Prophylaxis: scd, subcu heparin Disposition: Home Plan of care discussed with: Provider, RN, Patient. Problem List Rectus sheath hematoma, initial encounter (POA: Yes) Atrial fibrillation (HCC) (POA: Yes) Hypothyroidism (POA: Yes) Essential hypertension (POA: Yes) Acute on chronic diastolic congestive heart failure (HCC) (POA: Yes) Localized edema (POA: Status not on file) Shortness of breath (POA: Status not on file) This note was generated using Storm Player voice dictation. All reasonable efforts were made to correct dictation errors. SIGNATURE: Himanshu Decker DO PATIENT NAME: Ana Maria Avalos DATE: February 06, 2025 TIME: 5:26 PM PAGER/CONTACT #: My Pager CASE MANAGEM Observed: 02/06/2025 12:46 PM Status: COMPLETED Source: [facility] HNO ID: [id number] Author: STEVE VALDERRAMA RN Service: Care Management Author Type: Registered Nurse Type: Care Mgt Progress Note Filed: 02/06/2025 12:48 Note Text: CARE MANAGEMENT PROGRESS NOTE SERVICE DATE: 02/06/2025 SERVICE TIME: 1205 LOS: 6 days Needs Prior to Discharge: To Be Determined, Home Care Order IMM Follow Up Copy Given: Yes Copy given to:: Patient Method: In Person Chart reviewed. Discussed home care with patient who is interested primarily in SN to assist with INR testing. [place]. No preferred agency named. [facility] and service will continue to follow. SIGNATURE: Steve Valderrama RN PATIENT NAME: Ana Maria Avalos DATE: February 06, 2025 TIME: 12:46 PM THERAPY NT Observed: 02/06/2025 10:39 AM Status: COMPLETED Source: [facility] HNO ID: [id number] Author: ELLYN SHOOK, OTR/L Service: Occupational Therapy Author Type: Occupational Therapist Type: Therapy (PT/OT/Speech/Resp) Filed: 02/06/2025 10:46 Note Text: Occupational Therapy Evaluation Summary SERVICE DATE: 02/06/2025 SERVICE TIME: 0916 to 1005 ROOM: [id number] OT 6 Clicks Score: 23 DISCHARGE RECOMMENDATIONS Home OT Recommended Discharge Disposition Comments: Pt would benefit from home OT for IADL mgmt, change in life roles and possible housing transition, pt reluctant to ask others for help in her family Anticipated Discharge Needs: Physical Assist at Home Physical Assist at Home for: Shopping, Transportation ASSESSMENT Response to Therapy Interventions: Good Participation in Activities, Improved Tolerance for Activity, Multiple Ongoing Medical Issues, Needs Frequent Redirection or Reinstruction, Labile Vital Signs Pt agreeable to work with OT, rpts a lot of potential life changes as her family is asking her to come live with them eventually and she is worried about the acute/chronic changes in her health and wondering functionally what she is going to be able to do at D/C. Rpts prior to D/C struggling with walking a long distance in stores and with gardening which is a passion of hers. Pt sits edge of bed dizzy somewhat BP 94/58, after standing a few minutes, BP 81/60. Facilitated toileting, standing hand hygiene, facial hygiene, upperbody bathing at sink with stand by assist. Assisted back to edge of bed, discussed possible sources for additional help if needed and to explore options for aides, housekeepers, gardeners if she doesn't want to burden family. Pt receptive and grateful for session. PRECAUTIONS Fall Risk, Bed/Chair Alarm CURRENT HOSPITAL COURSE Presented to [facility] with abd pain--found to have abd wall hematoma. Pt found to have a supratherapeutic INR: 5+; administered vitamin K Relevant Past Medical History: osteoporosis, afib, HTN, CHF, HLD, atrial fibrillation on warfarin, hypothyroidism HOME LIVING Patient Lives With: Self/Alone Assistance Available: None Entry To Home: Stairs Number Of Stairs Into Home: 0 Number Of Stairs To Bed/Bath: 1 story set up Tub/Shower Type: Walk in shower Laundry: main floor Equipment Owned: Grab Bars- Shower, Rollator, Cane PRIOR FUNCTIONAL LEVEL Within Functional Limits Patient completely independent in ADLs/IADLs prior to admission. Pt completed med management and exercises at home IND. [place] and driving to places as needed. Pt expresses interest in having someone come to home for assistance. Family does not live nearby and/or not able to provide assistance. Pt rpts having DME (rollator and cane) at home but did not need to use them. Baseline Cognition: Oriented to self, Oriented to place, Oriented to time, Oriented to situation SUBJECTIVE Pt cooperative, open, and engaged in session. COGNITION Responsiveness: Alert, Awake Follows Commands: 2-step Commands THERAPY DIAGNOSIS Reduced mobility-other, Unsteadiness on feet TREATMENT INTERVENTIONS Evaluation, Self Fci Management (86323) Timed Code Treatment (minutes): 24 Skilled Treatment Time (minutes): 49 $ Evaluation - Low (67234) Billed Units: 1 unit Self Fci Management (17855) Treatment Minutes: 24 $ Self Fci Management (14240) Billed Units: 2 units TRAINING AND EDUCATION PROVIDED Energy Conservation, Transfer - Sit to Stand, Transfer - Toilet/Commode, Toileting , Standing Balance to Improve [place] with ADLs/Self-Care, Sitting Balance to Improve [place] with ADLs/Self-Care, Role of Occupational Therapy, Safety/Judgment, Functional Mobility Involving ADLs, Adaptive Equipment/DME, Bed Mobility, Grooming Tasks THERAPEUTIC SKILLS USED Therapeutic Use of Self, Cuing Verbal, Cues for Sequencing/Proper Technique for Activity, Assessment of Tolerance Including Vitals Response to Activity, Cuing Tactile, Physical Assist FUNCTIONAL STATUS Activities of Daily Living Assist Level Additional Information Feeding Independent Grooming Stand By Assistance Bathing Upper Body Contact Guard Assistance Bathing Lower Body Minimal Assistance Dressing Upper Body Supervision Dressing Lower Body Stand By Assistance Toileting Modified Independent Mobility Assist Level Additional Information Bed Mobility Supine To Sit: Contact Guard Assistance Sit To Supine: Stand By Assistance Sit to Stand Contact Guard Assistance Stand to Sit Contact Guard Assistance Bed to Chair Toilet/Commode Modified Independent Shower Functional Mobility Contact Guard Assistance, Additional Information Functional Mobility Device: Wheeled Walker pt reaching for things to steady herself when not using walker, doesn't use DME typically at home Hand Dominance: Right Range of Motion: WFL Strength: Strength Limitation Comments Strength Limitation Comments: 3+; 4- distally BALANCE Static Sitting Balance: Good Dynamic Sitting Balance: Good Static Standing Balance: Good Dynamic Standing Balance: Fair GOALS Grooming with: Modified Independent Upper Body Bathing with: Set Up Lower Body Bathing with: Set Up Tolerate (minutes of functional activity): 25 (standing activity tolerance) Functional Activity with: Modified Independent (with walker or cane as needed) Demonstrate Positive Coping Strategies with: Verbal Cues Only Additional Goal 1: Pt to tolerate OOB ADLs for at least 25 mins Additional Goal 2: Pt to verbalize/demo at least 2 WSEC techs with IADLs/ADLs Rehab Potential: Good ACUTE CARE TREATMENT PLAN OT Frequency: 1 Time Per Week Treatment Interventions: Education, Self Care/Home Management, Functional Mobility Training, Balance Training SIGNATURE: Ellyn Shook OTR/L PATIENT NAME: Ana Maria Avalos DATE: February 06, 2025 TIME: 10:39 AM ECG COMPLETE Observed: 02/06/2025 10:07 AM Status: F Source: [facility] Ventricular Rate : 89 BPM QRS Duration : 88 ms Q-T Interval : 386 ms QTC Calculation(Bazett) : 469 ms Calculated R [place] : 96 degrees Calculated T [place] : 188 degrees ATRIAL FIBRILLATION RIGHTWARD AXIS ST & T WAVE ABNORMALITY, CONSIDER INFEROLATERAL ISCHEMIA ABNORMAL ECG WHEN COMPARED WITH ECG OF 30-Aug-2021 12:25, SIGNIFICANT CHANGES HAVE OCCURRED Confirmed by MD CASSIDY VINAY ([id number]) on 02/06/2025 5:38:40 PM NAME : ANA MARIA AVALOS PID : [id number] : 1935 Gender : Female Race : ORD : [id number] Procedure Date : Feb 06 2025 10:07:19 Edit Date : Feb 06 2025 17:38:42 Diagnosis: ATRIAL FIBRILLATION RIGHTWARD AXIS ST & T WAVE ABNORMALITY, CONSIDER INFEROLATERAL ISCHEMIA ABNORMAL ECG WHEN COMPARED WITH ECG OF 30-Aug-2021 12:25, SIGNIFICANT CHANGES HAVE OCCURRED Confirmed by MD CASSIDY VINAY ([id number]) on 02/06/2025 5:38:40 PM Test Reason : Arrhythmia Location : 200 : [facility] 710 Overread By : MD CASSIDY VINAY Edited By : MD CASSIDY VINAY Referred By : , Acquired by : JACK ROWE CONSULT Observed: 02/06/2025 9:54 AM Status: COMPLETED Source: [facility] HNO ID: [id number] Author: KYLIE VILLATORO MD Service: Clinical Cardiology Author Type: Physician Type: Consults Filed: 02/06/2025 17:16 Note Text: CONSULT: CARDIOLOGY SERVICE SERVICE DATE: 02/06/2025 SERVICE TIME: 3:30 PM CONSULTING PHYSICIAN: Kylie Villatoro PCP: Agnieszka Fish MD ATTENDING: Himanshu Decker DO REASON FOR CONSULT: Arrhythmias Subjective CHIEF COMPLAINT: Rectus sheath hematoma, initial encounter [S30.1XXA] HISTORY OF PRESENT ILLNESS: Ms. Avalos is a 89 year old female who presents for abdominal pain. Ms. Avalos has history of : -Hypertension -Hyperlipidemia -Chronic diastolic congestive heart failure -Permanent atrial fibrillation on Coumadin and metoprolol -Pulmonary hypertension -Echocardiogram March 01, 2024 revealed : ejection fraction 57?5%, moderate left atrial enlargement, dilated right atrium, moderate mitral insufficiency, moderately severe tricuspid insufficiency, moderate pulmonary hypertension with a right ventricular systolic pressure estimated at 51 mmHg and right atrial pressure 15 mmHg Ms. Avalos presented to [facility] for abdominal discomfort. She was found to have a rectus sheath hematoma. She has atrial fibrillation. Her Coumadin is currently on hold. Cardiology consult was obtained. Ms. 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 There had been discussions in the past for consideration for AV darin ablation. She was felt not to be a good candidate for atrial fibrillation ablation. Her ejection fraction returned to normal by February 2024. Ms. Avalos claims she has not felt well since November. She stated started having abdominal distention and abdominal pain. She has had some resolution of the distention and pain. She still has a very tender abdomen. She has occasional palpitations. She has had very much decreased energy. She has had shortness of breath. She has had increasing edema especially over the last few days. She has had some constipation since she has been in the hospital. She has very little urine output. She has arthritis in her hands. Ms. Avalos denies fever, cough, nausea, vomiting, diarrhea, hematochezia, or melena. 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 LTK replacement arthroplasty SIGMOIDOSCOPY FLX DX W/COLLJ SPEC BR/WA IF PFRMD 08/03/1999 Sigmoidoscopy FAMILY HISTORY Problem Relation Age of Onset Hypertension Mother Arthritis Mother Hypertension Sister Asthma Sister Osteoporosis Paternal Aunt Social History Tobacco Use Smoking status: Never Smokeless tobacco: Never Vaping Use Vaping status: Never Used Substance Use Topics Alcohol use: Yes Comment: Rarely Drug use: No Prior to Admission Medications Prescriptions Last Dose Informant Patient Reported? Taking? B COMPLEX TAB Yes No Sig: Take 1 tablet by mouth once daily. CALCIUM + D 600 MG-200 UNIT TAB Yes No Sig: Take one(1) tablet two(2) times daily. Cholecalciferol, Vitamin D3, (VITAMIN D-3) 50 mcg (2,000 unit) cap Yes No Sig: Take 4,000 Units by mouth once daily. FOLIC ACID ORAL Yes No Sig: Take 400 mcg by mouth once daily. GLUCOSAMINE CHONDROITIN MAXSTR 500 MG-400 MG CAP Yes No Sig: Take two (2) tablet three times daily. MULTIVITAMIN TAB Yes No Sig: Take one(1) tablet daily. Smykc-4-BYN-EPA-Fish Oil (FISH OIL) 1,000 mg (120 mg-180 mg) cap Yes No Sig: Take 2 g by mouth two times a day. acetaminophen (TYLENOL) 325 mg tablet Yes No Sig: Take 650 mg by mouth every 4 hours as needed. alendronate (FOSAMAX) 70 mg tablet Yes Yes Sig: Take 1 tablet by mouth one time a week. On Saturdays ascorbic acid(VITAMIN C 500 MG TAB) Yes No Sig: Take 1,000 mg by mouth daily at bedtime. atorvastatin (LIPITOR) 20 mg tablet No No Sig: Take 1 tablet by mouth once daily. cyanocobalamin (VITAMIN B-12) 1,000 mcg tab Yes No Sig: Take 1,000 mcg by mouth once daily. dapagliflozin propanediol (FARXIGA) 10 mg tablet Yes Yes Sig: Take 10 mg by mouth daily with breakfast. levothyroxine (SYNTHROID) 112 mcg tablet Yes No Sig: Take 112 mcg by mouth daily before breakfast. losartan (COZAAR) 50 mg tablet No No Sig: Take 1 tablet by mouth once daily. Patient taking differently: Take 25 mg by mouth once daily. metoprolol tartrate, short acting, (LOPRESSOR) 100 mg tablet Yes No Sig: Take 100 mg by mouth two times a day. spironolactone (ALDACTONE) 25 mg tablet Yes No Sig: Take 25 mg by mouth once daily. warfarin (COUMADIN) 3 mg tablet Yes Yes Sig: Take 6 mg by mouth daily as directed. Facility-Administered Medications: None Current Facility-Administered Medications Medication Dose Route Frequency levothyroxine 112 mcg tab(s) (SYNTHROID) 112 mcg ORAL BEFORE BREAKFAST DAILY NaCl 0.9% iv flush bag 20 mL INTRAVENOUS PRN aluminum-magnesium hydroxide-simethicone 200-200-20 mg/5 mL 30 mL 30 mL ORAL DAILY PRN ondansetron 4 mg tab(s) (ZOFRAN) 4 mg ORAL q 6 H PRN Or ondansetron (PF) 4 mg injection (ZOFRAN) 4 mg INTRAVENOUS q 6 H PRN acetaminophen 650 mg tab(s) (TYLENOL) 650 mg ORAL q 6 H PRN melatonin 3 mg tab(s) 3 mg ORAL AT BEDTIME PRN dapagliflozin propanediol 10 mg tab(s) (FARXIGA) 10 mg ORAL DAILY WITH BREAKFAST atorvastatin 20 mg tab(s) (LIPITOR) 20 mg ORAL AT BEDTIME metoprolol tartrate (short acting) 100 mg tab(s) (LOPRESSOR) 100 mg ORAL BID dextrose 15 gram/32 mL 15 g (TRUEPLUS) 15 g ORAL PRN Or glucagon 1 mg injection 1 mg INTRAMUSCULAR PRN Or dextrose 10% iv bolus 12.5 g INTRAVENOUS PRN heparin 5,000 Units injection 5,000 Units SUBCUTANEOUS q 12 H polyvinyl alcohol-povidone 1.4-0.6 % 1 drop (REFRESH) 1 drop BOTH EYES PRN hemorrhoid ointment ointment (PREPARATION H) RECTAL PRN ALLERGIES Allergen Reactions Codeine Hives Niccet A500 [Prop* Intolerance Venom-Honey Bee Unknown CARDIAC STATUS: Chest Pain: Denies Dyspnea: As above Ankle Edema: 2+ Arrhythmia: Atrial fibrillation with rapid ventricular rate, frequent multiform PVCs, frequent ventricular couplets Functional Capacity: Not assessed REVIEW OF SYSTEMS: The following systems were reviewed with the patient, and are unremarkable other than as described below. SYSTEMIC: No fever, chills, or change in weight or appetite HEENT: No recent change in vision or hearing. CARDIOVASCULAR: No murmur, gallop. Denies chest pain. She has occasional palpitations and has had shortness of breath. She has had increasing edema GI: No recent nausea, vomiting or diarrhea. She has had abdominal distention and pain : No recent hematuria or dysuria. SKIN: No recent itching or eruption. PSYCH: No recent active anxiety or depression. HEMATOLOGY/ONCOLOGY: No recent diagnosis of cancer. She was admitted with a rectal sheath hematoma ENDOCRINE: No recent polyuria or heat intolerance. NEURO: No recent TIA, stroke or seizures. RHEUMATOLOGY: She has arthritis discomfort in her fingers Objective PHYSICAL EXAM: Pleasant, comfortable, not in acute distress. Awake, alert, oriented times 3. Excellent historian Moves all extremities. SKIN: No rash or lumps. HEENT: Normocephalic, face symmetrical. NECK: Supple, no JVD, no carotid bruit, no thyromegaly. LUNGS: Clear to auscultation bilaterally. Diminished breath sounds CARDIAC: PMI present, tachycardic, irregularly irregular rhythm, S1 and S2, no S3 or S4, systolic flow type murmur right upper sternal border ABDOMEN: bowel sounds present, diffuse tenderness with voluntary guarding and no rebound EXTREMITIES: 2+ edema. PULSES: Peripheral pulses present. Body mass index is 27.05 kg/m?. O2 Therapy: Room Air No data recorded Patient Vitals for the past 48 hrs: BP Temp Temp src Pulse Resp SpO2 Weight 02/06/25 0938 81/60 -- -- -- -- -- -- 02/06/25 0934 94/58 -- -- -- -- -- -- 02/06/25 0702 104/71 36.3 ?C (97.4 ?F) Oral 81 20 95 % -- 02/06/25 0607 -- -- -- -- -- -- 80.7 kg (177 lb 14.6 oz) 02/06/25 0308 102/54 36.5 ?C (97.7 ?F) Oral 118 18 96 % -- 02/05/25 2329 110/72 36.4 ?C (97.6 ?F) Oral 110 19 97 % -- 02/05/252010 97/61 -- -- 98 -- -- -- 02/05/25 1945 102/58 36.8 ?C (98.2 ?F) Oral 106 -- 96 % -- 02/05/25 1520 98/65 36.4 ?C (97.5 ?F) Oral 82 16 96 % -- 02/05/25 1105 101/63 36.6 ?C (97.9 ?F) Oral 70 15 96 % -- 02/05/25 1018 -- -- -- -- -- -- 76.9 kg (169 lb 8.5 oz) 02/05/25 0913 109/54 36.3 ?C (97.3 ?F) Oral 86 14 93 % -- 02/04/25 2301 106/58 36.6 ?C (97.8 ?F) Oral 98 18 93 % -- 02/04/252012 97/52 36.5 ?C (97.7 ?F) Oral 85 18 95 % -- 02/04/25 1519 107/68 36.6 ?C (97.9 ?F) Oral 104 17 97 % -- 02/04/25 1101 94/58 36.4 ?C (97.6 ?F) Oral 80 18 96 % -- DATA: Diagnostic tests reviewed for today's visit: Most recent labs and imaging results. Past 72 Hour Labs: Recent Labs 02/06/25 0636 02/06/25 0414 02/05/25 1508 WBC 5.31 -- 5.27 RBC 3.32* -- 3.66* HB 10.5* -- 11.6 HCT 32.5* -- 37.2 MCV 97.9 -- 101.6* MCH 31.6 -- 31.7 MCHC 32.3 -- 31.2 RDWCV 15.8* -- 15.7* PLT 141* -- 168 MPV 8.9* -- 9.2 NEUTP 65.0 -- -- LYMPHP 15.4 -- -- MONOP 17.3 -- -- EODINP 1.1 -- -- BASOP 0.6 -- -- ABSNEUT 3.45 -- -- ABSMONO 0.92* -- -- ABSEOSIN 0.06 -- -- ABSBASO 0.03 -- -- GLUC -- -- 122* BUN -- -- 25* CREAT -- -- 1.03* NA -- -- 134* K -- -- 4.9 CHLOR -- -- 100 CO2 -- -- 24 CA -- -- 8.7 PTSEC -- 13.5* -- INR -- 1.3 -- Last Lab Drawn: TSH 2.160 06/23/2018 Triglyceride 84 11/23/2018 HDL Cholesterol 81 11/23/2018 LDL Chol, Vladimir 96 11/23/2018 Cholesterol, Total 194 11/23/2018 Prior Cardiac Workup: Echocardiogram March 01, 2024 revealed : CONCLUSIONS: - Exam indication: Nonsustained atrial fibrillation - The left ventricle is small. Left ventricular systolic function is normal. EF = 57 ? 5% (2D biplane) Left ventricular diastolic function was not evaluated due to AF. - The right ventricle is normal in size. Right ventricular systolic function is low normal. - The left atrial cavity is moderately dilated. - The right atrial cavity is dilated. - There is moderate (2+) mitral valve regurgitation. - There is moderately severe (3+) tricuspid valve regurgitation caused by annular dilatation. - Estimated right ventricular systolic pressure is 51 mmHg consistent with moderate pulmonary hypertension. Estimated right atrial pressure is 15 mmHg based on IVC assessment. - Exam was compared with the prior CC echocardiographic exam performed on 11/12/2018. TR and RV systolic function appear slightly worse. Impression/Recommendations Principal Problem: Rectus sheath hematoma, initial encounter (POA: Yes) Assessment AND Plan: Ms. Avalos's EKG revealed atrial fibrillation, rate 89, PVCs, right axis deviation, inferior lateral ST depression. Ms. Avalos will need anticoagulation resumed in the near future. General Surgery made recommendations concerning anticoagulation. I am recommending an echocardiogram as she does appear to have congestive heart failure. She has had hypotension complicating treating her congestive heart failure. I will make further recommendations after results of her echocardiogram are known. On ordering her echocardiogram I was only allowed to order a limited echo as somehow the system seems to think she had a recent echocardiogram. She has not had an echocardiogram since February 2024. Active Problems: Atrial fibrillation (HCC) (POA: Yes) Assessment AND Plan: Hypothyroidism (POA: Yes) Assessment AND Plan: Essential hypertension (POA: Yes) Assessment AND Plan: Chronic diastolic CHF (congestive heart failure) (HCC) (POA: Yes) Assessment AND Plan: Resolved Problems: * No resolved hospital problems. * Orders reviewed and I agree with the cardiac orders. Additional orders include: Echocardiogram SIGNATURE: Kylie Villatoro MD PATIENT NAME: Ana Maria Avalos DATE: February 06, 2025 TIME: 9:54 AM CBC W AUTO DIFF BLD Collected: 02/06/2025 6:[address] atus: F Source: [facility] Order Comment: Specimen Type : BLOOD SPECIMEN Ordering Facility: [facility] Address: [address] [place] [address] TYPE CODE TESTS RESULT OUT OF RANGE REFERENCE UNITS LAB 6690-2(LOINC) WBC # Bld Auto 5.31 3.70-11.00 k/uL LAB 789-8(LOINC) RBC # Bld Auto 3.32 Low 3.90-5.20 m/ uL LAB 718-7(LOINC) Hgb Bld-mCnc 10.5 Low 11.5-15.5 g/dL LAB 4544-3(LOINC) Hct VFr Bld Auto 32.5 Low 36.0-46.0 % LAB 787-2(LOINC) MCV RBC Auto 97.9 80.0-100.0 fL LAB 785-6(LOINC) MCH RBC Qn Auto 31.6 26.0-34.0 p g LAB 786-4(LOINC) MCHC RBC Auto-mCnc 32.3 30.5-36.0 g/dL LAB 77747-9(LOINC) RDW RBC-Rto 15.8 High 11.5-15.0 % LAB 777-3(LOINC) Platelet # Bld Auto 141 Low 150-400 k/uL LAB 49857-6(LOINC) PMV Bld Auto 8.9 Low 9.0-12.7 fL LAB 770-8(LOINC) Neutrophils/leuk NFr Bld Auto 65.0 % LAB 751-8(LOINC) Neutrophils # Bld Auto 3.45 1.45-7.50 k/uL LAB 736-9(LOINC) Lymphocytes/leuk NFr Bld Auto 15.4 % LAB 731-0(LOINC) Lymphocytes # Bld Auto 0.82 Low 1.00-4.00 k/uL LAB 5905-5(LOINC) Monocytes/leuk NFr Bld Auto 17.3 % LAB 742-7(LOINC) Monocytes # Bld Auto 0.92 High <0.87 k/uL LAB 713-8(LOINC) Eosinophil/leuk NFr Bld Auto 1.1 % LAB 711-2(LOINC) Eosinophil # Bld Auto 0.06 <0.46 k/uL LAB 706-2(LOINC) Basophils/leuk NFr Bld Auto 0.6 % LAB 704-7(LOINC) Basophils # Bld Auto 0.03 <0.11 k/uL LAB 83385-1(LOINC) Imm Granulocytes/mavis k NFr Bld Auto 0.6 % LAB 73557-3(LOINC) Imm Granulocytes # Bld Auto 0.03 <0.10 k/uL LAB 93081-0(LOINC) nRBC/100 WBC Bld-Rto 0.0 /100 WBC LAB 771-6(INC) nRBC # Bld Auto <0.01 <0.01 k/u L LAB 56013-3(INC) Differential method Bld Auto Performed By: #### [id number] # ### [facility] CLIA [id number] [address] PT PNL PPP Collected: 02/06/2025 4:14 AM Status: F Source: [facility] Order Comment: Specimen Type : BLOOD SPECIMEN Ordering Facility: [facility] Address: [address] [place] [address] TYPE CODE TESTS RESULT OUT OF RANGE REFERENCE UNITS LAB 5902-2(INC) Prothrombin time 13.5 High 9.7-13.0 sec LAB 6301-6(LOINC) INR PPP 1.3 0.9-1.3 Result Comment: Vitamin K An tagonist (VKA) Therapeutic Range: INR 2 to 3 (Target INR of 2.5) Note: For patients treated with VKA drugs, such as warfarin, the [employer] 2012 Guideline recommends a therapeutic INR range of 2 to 3 (target INR of 2.5). This recommendation includes high-risk patients with antiphospholipid syndrome with previous arterial or venous thromboembolism, current-generation mechanical or bioprosthetic aortic heart valve replacement. Note: Patients with mechanical aortic valve replacement and additional risk factors for thromboembolic events (atrial fibrillation, previous thromboembolism, LV dysfunction, hypercoagulable conditions) or an older generation mechanical AVR (i.e., ball in-Cage) or any mechanical MVR should have a INR therapeutic range of 2.5 to 3.5 (target INR of 3). Timothy GH, et al. Chest 2012, 141:7S-47S Madelaine RA, et al. [facility] 2017, 70: 252-289 Performed By: #### [id number] # ### [facility] CLIA [id number] [address] CBC PNL BLD AUTO Collected: 02/05/2025 3:08 PM Statu s: F Source: [facility] Order Comment: Specimen Type : BLOOD SPECIMEN Ordering Facility: [facility] Address: [address] [place] [address] TYPE CODE TESTS RESULT OUT OF RANGE REFERENCE UNITS LAB 6690-2(LOINC) WBC # Bld Auto 5.27 3.70-11.00 k/uL LAB 789-8(LOINC) RBC # Bld Auto 3.66 Low 3.90-5.20 m/ uL LAB 718-7(LOINC) Hgb Bld-mCnc 11.6 11.5-15.5 g/dL LAB 4544-3(LOINC) Hct VFr Bld Auto 37.2 36.0-46.0 % LAB 787-2(LOINC) MCV RBC Auto 101.6 High 80.0-100.0 fL LAB 785-6(LOINC) MCH RBC Qn Auto 31.7 26.0-34.0 pg LAB 786-4(LOINC) MCHC RBC Auto-mCnc 31.2 30.5-36.0 g/dL LAB 46270-2(LOINC) RDW RBC-Rto 15.7 High 11.5-15.0 % LAB 777-3(LOINC) Platelet # Bld Auto 168 150-400 k/uL LAB 81293-0(LOINC) PMV Bld Auto 9.2 9.0-12.7 fL LAB 771-6([facility]) nRBC # Bld Auto <0.01 <0.01 k/uL Performed By: #### [id number] # ### [facility] CLIA [id number] [address] [place] [address] [place] [facility] BAS METAB 2000 PNL SERPL Collected: 01/2025 3:08 PM Status: F Source: [facility] Order Comment: Specimen Type : BLOOD SPECIMEN Ordering Facility: [facility] Address: [address] [place] [address] TYPE CODE TESTS RESULT OUT OF RANGE REFERENCE UNITS LAB 2345-7([facility]) Glucose SerPl-mCnc 122 High 74-99 mg/dL Result Comment: The [place] [employer] (ADA) provides guidance for cutoff values for fasting glucose and random glucose. The ADA defines fasting as no caloric intake for at least 8 hours. Fasting plasma glucose results between 100 to 125 mg/dL indicate increased risk for diabetes (prediabetes). Fasting plasma glucose results greater than or equal to 126 mg/dL meet the criteria for diagnosis of diabetes. In the absence of unequivocal hyperglycemia, results should be confirmed by repeat testing. In a patient with classic symptoms of hyperglycemia or hyperglycemic crisis, random plasma glucose results greater than or equal to 200 mg/dL meet the criteria for diagnosis of diabetes. Reference: Standards of Medical Care in Diabetes 2016, [place] [employer]. Diabetes Care. 2016.39(Suppl 1). LAB 3094-0(LOINC) BUN SerPl-mCnc 25 High 7-21 mg/ dL LAB 2160-0(LOINC) Creat SerPl-mCnc 1.03 High 0.58-0.96 mg/dL LAB 2951-2(LOINC) Sodium SerPl-sCnc 134 Low 136-144 mmol/L LAB 2823-3(LOINC) Potassium SerPl-sCnc 4.9 3.7-5.1 mmol/L LAB 2075-0(LOINC) Chloride SerPl-sCnc 100 98-107 mmol/L LAB 2028-9(LOINC) CO2 SerPl-sCnc 24 22-30 mmo l/L LAB 1863-0(LOINC) Anion Gap4 SerPl-sCnc 10 8-15 mmol/L LAB 25002-9(LOINC) Calcium SerPl-mCnc 8.7 8.5-10.2 mg/dL LAB 70928-6(INC) Creatinine + eGFR Pnl SerPlBld 52 Low >=60 mL/min/1. 73m??? Result Comment: Estimated Gl omerular Filtration Rate (eGFR) is calculated using the 2020 CKD-EPI creatinine equation. This equation utilizes serum creatinine, sex, and age as parameters. The creatinine assay has traceable calibration to isotope dilution-mass spectrometry. Refer to KDIGO guidelines for clinical interpretation. In patients with unstable renal function, e.g. those with acute kidney injury, the eGFR may not accurately reflect actual GFR. Performed By: #### [id number] # ### [facility] CLIA [id number] [address] PROGRESS Observed: 02/05/2025 2:08 PM Status: COMPLETED Source: [facility] HNO ID: [id number] Author: HIMANSHU DECKER DO Service: Hospital Medicine Author Type: Physician Type: Progress Notes Filed: 02/05/2025 14:16 Note Text: DEPARTMENT OF HOSPITAL MEDICINE PROGRESS NOTE SERVICE DATE: 02/05/2025 SERVICE TIME: 2:08 PM Hospital Medicine/Primary Attending: Himanshu Decker DO NIGHT AND WEEKEND COVERAGE: After 7pm please page [phone] SUBJECTIVE: Patient seen and examined at bedside. No new complaints or concerns reported, no events reported overnight. OBJECTIVE: PHYSICAL EXAM: BP 101/63 Pulse 70 Temp (Src) 97.9 (Oral) Resp 15 Ht 5' 8 (1.73m) Wt 169 lb 8.5 oz (76.9kg) SpO2 96% BMI 25.78 kg/(m2). O2 Therapy: Room Air General - Alert, NAD, Calm ENT- no icterus, MMM CV -irregularly irregular S1 S2, No M/R/G RESP - CTA B/L No wheezes, ronchi, rales ABD - soft, NT, ND, NM +BS, bruising over right flank, smaller [place] of demarcated bruising over left flank, noticed also small anterior abdominal bruising Neuro- Conversant, follows commands, moves all ext, gross sensation intact Ext:Non-tender, 2+ edema Skin: warm, no rash MEDICATIONS: Current Facility-Administered Medications Medication Dose Route Frequency levothyroxine 112 mcg tab(s) (SYNTHROID) 112 mcg ORAL BEFORE BREAKFAST DAILY NaCl 0.9% iv flush bag 20 mL INTRAVENOUS PRN aluminum-magnesium hydroxide-simethicone 200-200-20 mg/5 mL 30 mL 30 mL ORAL DAILY PRN ondansetron 4 mg tab(s) (ZOFRAN) 4 mg ORAL q 6 H PRN Or ondansetron (PF) 4 mg injection (ZOFRAN) 4 mg INTRAVENOUS q 6 H PRN acetaminophen 650 mg tab(s) (TYLENOL) 650 mg ORAL q 6 H PRN melatonin 3 mg tab(s) 3 mg ORAL AT BEDTIME PRN dapagliflozin propanediol 10 mg tab(s) (FARXIGA) 10 mg ORAL DAILY WITH BREAKFAST atorvastatin 20 mg tab(s) (LIPITOR) 20 mg ORAL AT BEDTIME metoprolol tartrate (short acting) 100 mg tab(s) (LOPRESSOR) 100 mg ORAL BID dextrose 15 gram/32 mL 15 g (TRUEPLUS) 15 g ORAL PRN Or glucagon 1 mg injection 1 mg INTRAMUSCULAR PRN Or dextrose 10% iv bolus 12.5 g INTRAVENOUS PRN heparin 5,000 Units injection 5,000 Units SUBCUTANEOUS q 12 H polyvinyl alcohol-povidone 1.4-0.6 % 1 drop (REFRESH) 1 drop BOTH EYES PRN hemorrhoid ointment ointment (PREPARATION H) RECTAL PRN WARFARIN DOSING PER PHARMACY 1 each OTHER DAILY - WARFARIN DATA: Diagnostic tests reviewed for today's visit: CBC: No results for input(s): WBC, RBC, HB, HCT, PLT, MCV, MCH, MPV, RDW in the last 24 hours. Coags: Recent Labs 02/05/25 0936 INR 1.3 BMP: No results for input(s): NA, K, CHLOR, CO2, BUN, CREAT, GLUC in the last 24 hours. CMP: No results for input(s): NA, K, CHLOR, CO2, BUN, CREAT, GLUC, TPROT, CA, MG, ALBUMIN, TBILI, ALKPHOS, ALT, AST, ANION in the last 24 hours. Cardiac Enzymes: No results for input(s): CK, MB, CKMB, TROPT in the last 24 hours. Liver Function, Amylase, Lipase: No results for input(s): TPROT, ALB, ALT, AST, ALKPHOS, TBILI, AMYLASE, LIPASE, LACTATE in the last 24 hours. MG/PHOS: No results for input(s): MG, P in the last 24 hours. Renal Panel: No results for input(s): ALBUMIN, CREAT, BUN, GLUC, CA, P, CHLOR, K, CO2, NA in the last 24 hours. Heme: No results for input(s): RETICP, ABSRETIC, LD, KEVAN, FE, TIBC,TRANSFERSAT in the last 24 hours. Albumin/Creat Ratio (mg/g) Date Value 01/04/2014 2 Assessment/Plan This is a 89 year old female with: #Rectus sheath hematoma- In the setting of supratherapeutic INR - Warfarin on hold, may be okay to resume now per surgical team has been on heparin for 2 days-will consult cardiology to see if she may be a better candidate for DOAC or if recommend further delay in resumption of blood thinners at this time - Telemetry - Every 4 hours vital signs - Continue monitor hemoglobin closely -As nursing outlined new bruising on anterior abdomen #Atrial fibrillation on chronic warfarin with supratherapeutic INR -Warfarin on hold monitor INR see above - Continue metoprolol May need to reduce dose if blood pressure remains on lower side -Cardio consult as above #CHRISTOPHER v CKD improving -Monitor BMP -Hold losartan/Aldactone due to christopher and hypotension #HFpEF- Last EF 57% #moderately- severe (3+) tricuspid valve regurgitation #mod pulm htn - Continue Farxiga 10 mg daily - Continue metoprolol twice daily hold blood pressure below 100 systolic-May need to adjust dosing to allow for diuretic if continues to develop swelling in her legs -Repeat BMP pending # Hyperkalemia - Repeat BMP pending #hyponatremia-does remain relatively stable -repeat BMP pending #Hypertension pressure on the low side - Monitor vitals, continue current blood pressure meds #Hyperlipidemia - Atorvastatin 20 mg daily #Hypothyroidism - Continue levothyroxine 112 mcg daily VTE Prophylaxis: scd, subcu heparin Disposition: Home Plan of care discussed with: Provider, RN, Patient. Problem List Rectus sheath hematoma, initial encounter (POA: Yes) Atrial fibrillation (HCC) (POA: Yes) Hypothyroidism (POA: Yes) Essential hypertension (POA: Yes) Chronic diastolic CHF (congestive heart failure) (HCC) (POA: Yes) This note was generated using [employer] voice dictation. All reasonable efforts were made to correct dictation errors. SIGNATURE: Himanshu Decker DO PATIENT NAME: Ana Maria Avalos DATE: February 05, 2025 TIME: 2:08 PM PAGER/CONTACT #: My Pager PT PNL PPP Collected: 02/05/2025 9:36 AM Status: F Source: [facility] Order Comment: Specimen Type : BLOOD SPECIMEN Ordering Facility: [facility] Address: [address] [place] [address] TYPE CODE TESTS RESULT OUT OF RANGE REFERENCE UNITS LAB 5902-2(LOINC) Prothrombin time 14.2 High 9.7-13.0 sec LAB 6301-6(LOINC) INR PPP 1.3 0.9-1.3 Result Comment: Vitamin K An tagonist (VKA) Therapeutic Range: INR 2 to 3 (Target INR of 2.5) Note: For patients treated with VKA drugs, such as warfarin, the [employer] 2012 Guideline recommends a therapeutic INR range of 2 to 3 (target INR of 2.5). This recommendation includes high-risk patients with antiphospholipid syndrome with previous arterial or venous thromboembolism, current-generation mechanical or bioprosthetic aortic heart valve replacement. Note: Patients with mechanical aortic valve replacement and additional risk factors for thromboembolic events (atrial fibrillation, previous thromboembolism, LV dysfunction, hypercoagulable conditions) or an older generation mechanical AVR (i.e., ball in-Cage) or any mechanical MVR should have a INR therapeutic range of 2.5 to 3.5 (target INR of 3). Timothy GH, et al. Chest 2012, 141:7S-47S Madelaine RA, et al. JACC 2017, 70: 252-289 Performed By: #### [id number] # ### [facility] CLIA [id number] [address] [facility] PROGRESS Observed: 02/04/2025 3:13 PM Status: COMPLETED Source: [facility] HNO ID: [id number] Author: HIMANSHU DECKER DO Service: Hospital Medicine Author Type: Physician Type: Progress Notes Filed: 02/04/2025 15:18 Note Text: DEPARTMENT OF HOSPITAL MEDICINE PROGRESS NOTE SERVICE DATE: 02/04/2025 SERVICE TIME: 3:13 PM Hospital Medicine/Primary Attending: Himanshu Decker DO NIGHT AND WEEKEND COVERAGE: After 7pm please page [phone] SUBJECTIVE: Patient seen examined at bedside, no new acute complaints or concerns reported, no events reported overnight. Reports she has been getting up and moving. OBJECTIVE: PHYSICAL EXAM: BP 94/58 Pulse 80 Temp (Src) 97.6 (Oral) Resp 18 Ht 5' 8 (1.73m) Wt 175 lb 6.4 oz (79.6kg) SpO2 96% BMI 26.68 kg/(m2). O2 Therapy: Room Air General - Alert, NAD, Calm ENT- no icterus, MMM CV -irregularly irregular S1 S2, No M/R/G RESP - CTA B/L No wheezes, ronchi, rales ABD - soft, NT, ND, NM +BS, bruising over right flank, smaller [place] of demarcated bruising over left flank Neuro- Conversant, follows commands, moves all ext, gross sensation intact Ext:Non-tender, 1+ edema Skin: warm, no rash MEDICATIONS: Current Facility-Administered Medications Medication Dose Route Frequency levothyroxine 112 mcg tab(s) (SYNTHROID) 112 mcg ORAL BEFORE BREAKFAST DAILY NaCl 0.9% iv flush bag 20 mL INTRAVENOUS PRN aluminum-magnesium hydroxide-simethicone 200-200-20 mg/5 mL 30 mL 30 mL ORAL DAILY PRN ondansetron 4 mg tab(s) (ZOFRAN) 4 mg ORAL q 6 H PRN Or ondansetron (PF) 4 mg injection (ZOFRAN) 4 mg INTRAVENOUS q 6 H PRN acetaminophen 650 mg tab(s) (TYLENOL) 650 mg ORAL q 6 H PRN melatonin 3 mg tab(s) 3 mg ORAL AT BEDTIME PRN dapagliflozin propanediol 10 mg tab(s) (FARXIGA) 10 mg ORAL DAILY WITH BREAKFAST atorvastatin 20 mg tab(s) (LIPITOR) 20 mg ORAL AT BEDTIME metoprolol tartrate (short acting) 100 mg tab(s) (LOPRESSOR) 100 mg ORAL BID dextrose 15 gram/32 mL 15 g (TRUEPLUS) 15 g ORAL PRN Or glucagon 1 mg injection 1 mg INTRAMUSCULAR PRN Or dextrose 10% iv bolus 12.5 g INTRAVENOUS PRN heparin 5,000 Units injection 5,000 Units SUBCUTANEOUS q 12 H polyvinyl alcohol-povidone 1.4-0.6 % 1 drop (REFRESH) 1 drop BOTH EYES PRN hemorrhoid ointment ointment (PREPARATION H) RECTAL PRN DATA: Diagnostic tests reviewed for today's visit: CBC: Recent Labs 02/04/25 0451 WBC 6.48 RBC 3.62* HB 11.4* HCT 36.4 PLT 152 MCV 100.6* MCH 31.5 MPV 9.5 Coags: No results for input(s): PT, INR, APTT in the last 24 hours. BMP: No results for input(s): NA, K, CHLOR, CO2, BUN, CREAT, GLUC in the last 24 hours. CMP: No results for input(s): NA, K, CHLOR, CO2, BUN, CREAT, GLUC, TPROT, CA, MG, ALBUMIN, TBILI, ALKPHOS, ALT, AST, ANION in the last 24 hours. Cardiac Enzymes: No results for input(s): CK, MB, CKMB, TROPT in the last 24 hours. Liver Function, Amylase, Lipase: No results for input(s): TPROT, ALB, ALT, AST, ALKPHOS, TBILI, AMYLASE, LIPASE, LACTATE in the last 24 hours. MG/PHOS: No results for input(s): MG, P in the last 24 hours. Renal Panel: No results for input(s): ALBUMIN, CREAT, BUN, GLUC, CA, P, CHLOR, K, CO2, NA in the last 24 hours. Heme: No results for input(s): RETICP, ABSRETIC, LD, KEVAN, FE, TIBC,TRANSFERSAT in the last 24 hours. Albumin/Creat Ratio (mg/g) Date Value 01/04/2014 2 Assessment/Plan This is a 89 year old female with: #Rectus sheath hematoma- In the setting of supratherapeutic INR - Continue to hold warfarin start subcu heparin per surgery recommendations after 48 hours can consider initiation of warfarin if no signs of bleeding, hypotension, drop in hemoglobin or worsening pain-appreciate surgical recs - Telemetry - Every 4 hours vital signs - Continue monitor hemoglobin closely #Atrial fibrillation on chronic warfarin with supratherapeutic INR -Warfarin on hold monitor INR see above - Continue metoprolol metoprolol #CHRISTOPHER v CKD improving -Monitor BMP -Hold losartan/Aldactone due to christopher and hypotension #HFpEF- Last EF 57% #moderately- severe (3+) tricuspid valve regurgitation #mod pulm htn - Continue Farxiga 10 mg daily - Continue metoprolol twice daily hold blood pressure below 100 systolic # Hyperkalemia -Will give D10 and insulin -1 dose of Lokelma -Hold Aldactone and losartan due to christopher -Consider dose of Lasix if blood pressure stable #hyponatremia- -repeat in a.m., consider fluid restriction if worsening #Hypertension pressure on the low side - Every 4 hours vital signs while holding antihypertensive medications #Hyperlipidemia - Atorvastatin 20 mg daily #Hypothyroidism - Continue levothyroxine 112 mcg daily VTE Prophylaxis: scd, subcu heparin Disposition: Home Plan of care discussed with: Provider, RN, Patient. Problem List Rectus sheath hematoma, initial encounter (POA: Yes) Atrial fibrillation (HCC) (POA: Yes) Hypothyroidism (POA: Yes) Essential hypertension (POA: Yes) Chronic diastolic CHF (congestive heart failure) (HCC) (POA: Yes) This note was generated using Storm Player voice dictation. All reasonable efforts were made to correct dictation errors. SIGNATURE: Himanshu Decker DO PATIENT NAME: Ana Maria Avalos DATE: February 04, 2025 TIME: 3:13 PM PAGER/CONTACT #: My Pager CBC W AUTO DIFF BLD Collected: 02/04/2025 4:[address] at[facility]: F Source: [facility] Order Comment: Specimen Type : BLOOD SPECIMEN Ordering Facility: [facility] Address: [address] [place] [address] TYPE CODE TESTS RESULT OUT OF RANGE REFERENCE UNITS LAB 6690-2(LOINC) WBC # Bld Auto 6.48 3.70-11.00 k/uL LAB 789-8(LOINC) RBC # Bld Auto 3.62 Low 3.90-5.20 m/ uL LAB 718-7(LOINC) Hgb Bld-mCnc 11.4 Low 11.5-15.5 g/dL LAB 4544-3(LOINC) Hct VFr Bld Auto 36.4 36.0-46.0 % LAB 787-2([facility]) MCV RBC Auto 100.6 High 80.0-100.0 fL LAB 785-6([facility]) MCH RBC Qn Auto 31.5 26.0-34.0 p g LAB 786-4([facility]) MCHC RBC Auto-mCnc 31.3 30.5-36.0 g/dL LAB 41058-8([facility]) RDW RBC-Rto 14.9 11.5-15.0 % LAB 777-3([facility]) Platelet # Bld Auto 152 150-400 k/uL LAB 74138-6([facility]) PMV Bld Auto 9.5 9.0-12.7 fL LAB 770-8([facility]) Neutrophils/leuk NFr Bld Auto 60.2 % LAB 751-8([facility]) Neutrophils # Bld Auto 3.91 1.45-7.50 k/uL LAB 736-9([facility]) Lymphocytes/leuk NFr Bld Auto 18.7 % LAB 731-0([facility]) Lymphocytes # Bld Auto 1.21 1.00-4.00 k/uL LAB 5905-5([facility]) Monocytes/leuk NFr Bld Auto 18.1 % LAB 742-7([facility]) Monocytes # Bld Auto 1.17 High <0.87 k/uL LAB 713-8([facility]) Eosinophil/leuk NFr Bld Auto 1.9 % LAB 711-2([facility]) Eosinophil # Bld Auto 0.12 <0.46 k/uL LAB 706-2([facility]) Basophils/leuk NFr Bld Auto 0.6 % LAB 704-7([facility]) Basophils # Bld Auto 0.04 <0.11 k/uL LAB 93823-5([facility]) Imm Granulocytes/mavis k NFr Bld Auto 0.5 % LAB 59543-7([facility]) Imm Granulocytes # Bld Auto 0.03 <0.10 k/uL LAB 09989-5([facility]) nRBC/100 WBC Bld-Rto 0.0 /100 WBC LAB 771-6([facility]) nRBC # Bld Auto <0.01 <0.01 k/u L LAB 84296-8([facility]) Differential method Bld Auto Performed By: #### [id number] # ### [facility] CLIA [id number] [address] [place] [address] [place] BAS METAB 2000 PNL SERPL Collected: 11/2024 11:24 AM Status: F Source: [facility] Order Comment: Specimen Type : BLOOD SPECIMEN Ordering Facility: [facility] Address: [address] [place] [address] [place] [address] TYPE CODE TESTS RESULT OUT OF RANGE REFERENCE UNITS LAB 2345-7(LOINC) Glucose SerPl-mCnc 122 High 74-99 mg/dL Result Comment: The [place] Diabetes [employer] (ADA) provides guidance for cutoff values for fasting glucose and random glucose. The ADA defines fasting as no caloric intake for at least 8 hours. Fasting plasma glucose results between 100 to 125 mg/dL indicate increased risk for diabetes (prediabetes). Fasting plasma glucose results greater than or equal to 126 mg/dL meet the criteria for diagnosis of diabetes. In the absence of unequivocal hyperglycemia, results should be confirmed by repeat testing. In a patient with classic symptoms of hyperglycemia or hyperglycemic crisis, random plasma glucose results greater than or equal to 200 mg/dL meet the criteria for diagnosis of diabetes. Reference: Standards of Medical Care in Diabetes 2016, [place] [employer]. Diabetes Care. 2016.39(Suppl 1). LAB 3094-0(LOINC) BUN SerPl-mCnc 34 High 7-21 mg/ dL LAB 2160-0(LOINC) Creat SerPl-mCnc 1.26 High 0.58-0.96 mg/dL LAB 2951-2(LOINC) Sodium SerPl-sCnc 131 Low 136-144 mmol/L LAB 2823-3(LOINC) Potassium SerPl-sCnc 4.8 3.7-5.1 mmol/L LAB 2075-0(LOINC) Chloride SerPl-sCnc 101 98-107 mmol/L LAB 2028-9(LOINC) CO2 SerPl-sCnc 21 Low 22-30 mmo l/L LAB 1863-0(LOINC) Anion Gap4 SerPl-sCnc 9 8-15 mmol/L LAB 52858-9(LOINC) Calcium SerPl-mCnc 8.5 8.5-10.2 mg/dL LAB 08049-7(LOINC) Creatinine + eGFR Pnl SerPlBld 41 Low >=60 mL/min/1. 73m??? Result Comment: Estimated Gl omerular Filtration Rate (eGFR) is calculated using the 2020 CKD-EPI creatinine equation. This equation utilizes serum creatinine, sex, and age as parameters. The creatinine assay has traceable calibration to isotope dilution-mass spectrometry. Refer to KDIGO guidelines for clinical interpretation. In patients with unstable renal function, e.g. those with acute kidney injury, the eGFR may not accurately reflect actual GFR. Performed By: #### 00896-9 # ### [facility] CLIA [id number] [address] PROGRESS Observed: 02/03/2025 8:36 AM Status: COMPLETED Source: [facility] HNO ID: [id number] Author: HIMANSHU DECKER DO Service: Hospital Medicine Author Type: Physician Type: Progress Notes Filed: 02/03/2025 08:39 Note Text: DEPARTMENT OF HOSPITAL MEDICINE PROGRESS NOTE SERVICE DATE: 02/03/2025 SERVICE TIME: 8:36 AM Hospital Medicine/Primary Attending: Himanshu Decker DO NIGHT AND WEEKEND COVERAGE: After 7pm please page [phone] SUBJECTIVE: Patient seen examined at bedside. No new acute complaints or concerns reported, no events reported overnight. Reports pain is improved. Feels less swollen her abdomen. OBJECTIVE: PHYSICAL EXAM: BP 112/66 Pulse 72 Temp (Src) 97.7 (Oral) Resp 18 Ht 5' 8 (1.73m) Wt 175 lb 6.4 oz (79.6kg) SpO2 100% BMI 26.68 kg/(m2). O2 Therapy: Room Air General - Alert, NAD, Calm ENT- no icterus, MMM CV -irregularly irregular S1 S2, No M/R/G RESP - CTA B/L No wheezes, ronchi, rales ABD - soft, NT, ND, NM +BS, bruising over right flank Neuro- Conversant, follows commands, moves all ext, gross sensation intact Ext:Non-tender, 1+ edema Skin: warm, no rash MEDICATIONS: Current Facility-Administered Medications Medication Dose Route Frequency levothyroxine 112 mcg tab(s) (SYNTHROID) 112 mcg ORAL BEFORE BREAKFAST DAILY NaCl 0.9% iv flush bag 20 mL INTRAVENOUS PRN aluminum-magnesium hydroxide-simethicone 200-200-20 mg/5 mL 30 mL 30 mL ORAL DAILY PRN ondansetron 4 mg tab(s) (ZOFRAN) 4 mg ORAL q 6 H PRN Or ondansetron (PF) 4 mg injection (ZOFRAN) 4 mg INTRAVENOUS q 6 H PRN acetaminophen 650 mg tab(s) (TYLENOL) 650 mg ORAL q 6 H PRN melatonin 3 mg tab(s) 3 mg ORAL AT BEDTIME PRN dapagliflozin propanediol 10 mg tab(s) (FARXIGA) 10 mg ORAL DAILY WITH BREAKFAST atorvastatin 20 mg tab(s) (LIPITOR) 20 mg ORAL AT BEDTIME metoprolol tartrate (short acting) 100 mg tab(s) (LOPRESSOR) 100 mg ORAL BID dextrose 10% iv bolus 25 g INTRAVENOUS STAT dextrose 15 gram/32 mL 15 g (TRUEPLUS) 15 g ORAL PRN Or glucagon 1 mg injection 1 mg INTRAMUSCULAR PRN Or dextrose 10% iv bolus 12.5 g INTRAVENOUS PRN sodium zirconium cyclosilicate 5 g oral packet (LOKELMA) 5 g ORAL ONCE heparin 5,000 Units injection 5,000 Units SUBCUTANEOUS q 12 H DATA: Diagnostic tests reviewed for today's visit: CBC: Recent Labs 02/03/25329 WBC 7.06 RBC 3.57* HB 11.2* HCT 36.0 PLT 140* MCV 100.8* MCH 31.4 MPV 9.7 Coags: No results for input(s): PT, INR, APTT in the last 24 hours. BMP: Recent Labs 02/03/25 0330 NA 132* K 5.3* CHLOR 101 CO2 22 BUN 36* CREAT 1.26* GLUC 104* CMP: Recent Labs 02/03/25 0330 NA 132* K 5.3* CHLOR 101 CO2 22 BUN 36* CREAT 1.26* GLUC 104* CA 9.0 ANION 9 Cardiac Enzymes: No results for input(s): CK, MB, CKMB, TROPT in the last 24 hours. Liver Function, Amylase, Lipase: No results for input(s): TPROT, ALB, ALT, AST, ALKPHOS, TBILI, AMYLASE, LIPASE, LACTATE in the last 24 hours. MG/PHOS: No results for input(s): MG, P in the last 24 hours. Renal Panel: Recent Labs 02/03/25 0330 CREAT 1.26* BUN 36* GLUC 104* CA 9.0 CHLOR 101 K 5.3* CO2 22 NA 132* Heme: No results for input(s): RETICP, ABSRETIC, LD, KEVAN, FE, TIBC,TRANSFERSAT in the last 24 hours. Albumin/Creat Ratio (mg/g) Date Value 01/04/2014 2 Assessment/Plan This is a 89 year old female with: #Rectus sheath hematoma- In the setting of supratherapeutic INR - Continue to hold warfarin start subcu heparin per surgery recommendations after 48 hours can consider initiation of warfarin if no signs of bleeding, hypotension, drop in hemoglobin or worsening pain-appreciate surgical recs - Telemetry - Every 4 hours vital signs - Continue monitor hemoglobin closely #Atrial fibrillation on chronic warfarin with supratherapeutic INR -Warfarin on hold monitor INR see above - Continue metoprolol metoprolol #CHRISTOPHER v CKD improving -Monitor BMP -Hold losartan/Aldactone #HFpEF- Last EF 57% - Continue Farxiga 10 mg daily - Holding metoprolol # Hyperkalemia -Will give D10 and insulin -1 dose of Lokelma -Hold Aldactone and losartan -Consider dose of Lasix if blood pressure stable #Hypertension - Every 4 hours vital signs while holding antihypertensive medications #Hyperlipidemia - Atorvastatin 20 mg daily #Hypothyroidism - Continue levothyroxine 112 mcg daily VTE Prophylaxis: scd, subcu heparin Disposition: Home Plan of care discussed with: Provider, RN, Patient. Problem List Rectus sheath hematoma, initial encounter (POA: Yes) Atrial fibrillation (HCC) (POA: Yes) Hypothyroidism (POA: Yes) Essential hypertension (POA: Yes) Chronic diastolic CHF (congestive heart failure) (HCC) (POA: Yes) This note was generated using Storm Player voice dictation. All reasonable efforts were made to correct dictation errors. SIGNATURE: Himanshu Decker DO PATIENT NAME: Ana Maria Avalos DATE: February 03, 2025 TIME: 8:36 AM PAGER/CONTACT #: My Pager CBC W AUTO DIFF BLD Collected: 02/03/2025 3:[address] [facility]: F Source: [facility] Order Comment: Specimen Type : BLOOD SPECIMEN Ordering Facility: [facility] Address: [address] [place] [id number] TYPE CODE TESTS RESULT OUT OF RANGE REFERENCE UNITS LAB 6690-2([facility]) WBC # Bld Auto 7.06 3.70-11.00 k/uL LAB 789-8([facility]) RBC # Bld Auto 3.57 Low 3.90-5.20 m/ uL LAB 718-7([facility]) Hgb Bld-mCnc 11.2 Low 11.5-15.5 g/dL LAB 4544-3([facility]) Hct VFr Bld Auto 36.0 36.0-46.0 % LAB 787-2([facility]) MCV RBC Auto 100.8 High 80.0-100.0 fL LAB 785-6([facility]) MCH RBC Qn Auto 31.4 26.0-34.0 p g LAB 786-4([facility]) MCHC RBC Auto-mCnc 31.1 30.5-36.0 g/dL LAB 26158-8([facility]) RDW RBC-Rto 14.6 11.5-15.0 % LAB 777-3([facility]) Platelet # Bld Auto 140 Low 150-400 k/uL LAB 56569-8([facility]) PMV Bld Auto 9.7 9.0-12.7 fL LAB 770-8([facility]) Neutrophils/leuk NFr Bld Auto 58.7 % LAB 751-8([facility]) Neutrophils # Bld Auto 4.14 1.45-7.50 k/uL LAB 736-9([facility]) Lymphocytes/leuk NFr Bld Auto 17.7 % LAB 731-0([facility]) Lymphocytes # Bld Auto 1.25 1.00-4.00 k/uL LAB 5905-5([facility]) Monocytes/leuk NFr Bld Auto 21.2 % LAB 742-7([facility]) Monocytes # Bld Auto 1.50 High <0.87 k/uL LAB 713-8([facility]) Eosinophil/leuk NFr Bld Auto 1.4 % LAB 711-2([facility]) Eosinophil # Bld Auto 0.10 <0.46 k/uL LAB 706-2([facility]) Basophils/leuk NFr Bld Auto 0.7 % LAB 704-7(LO[facility]) Basophils # Bld Auto 0.05 <0.11 k/uL LAB 10292-8(LOINC) Imm Granulocytes/mavis k NFr Bld Auto 0.3 % LAB 18427-1([facility]) Imm Granulocytes # Bld Auto <0.03 <0.10 k/uL LAB 56680-0(LOINC) nRBC/100 WBC Bld-Rto 0.3 /100 WBC LAB 771-6([facility]) nRBC # Bld Auto 0.02 High <0.01 k/u L LAB 57683-5([facility]) Differential method Bld Auto Performed By: #### 41911-6 # ### [facility] CLIA [id number] [address] [facility] BAS METAB 2000 PNL SERPL Collected: 11/2024 3:30 AM Status: F Source: [facility] Order Comment: Specimen Type : BLOOD SPECIMEN Ordering Facility: [facility] Address: [address] [place] [address] TYPE CODE TESTS RESULT OUT OF RANGE REFERENCE UNITS LAB 2345-7([facility]) Glucose SerPl-mCnc 104 High 74-99 mg/dL Result Comment: The [place] Diabetes [employer] (ADA) provides guidance for cutoff values for fasting glucose and random glucose. The ADA defines fasting as no caloric intake for at least 8 hours. Fasting plasma glucose results between 100 to 125 mg/dL indicate increased risk for diabetes (prediabetes). Fasting plasma glucose results greater than or equal to 126 mg/dL meet the criteria for diagnosis of diabetes. In the absence of unequivocal hyperglycemia, results should be confirmed by repeat testing. In a patient with classic symptoms of hyperglycemia or hyperglycemic crisis, random plasma glucose results greater than or equal to 200 mg/dL meet the criteria for diagnosis of diabetes. Reference: Standards of Medical Care in Diabetes 2016, [place] [employer]. Diabetes Care. 2016.39(Suppl 1). LAB 3094-0(LOINC) BUN SerPl-mCnc 36 High 7-21 mg/ dL LAB 2160-0(LOINC) Creat SerPl-mCnc 1.26 High 0.58-0.96 mg/dL LAB 2951-2(LOINC) Sodium SerPl-sCnc 132 Low 136-144 mmol/L LAB 2823-3(LOINC) Potassium SerPl-sCnc 5.3 High 3.7-5.1 mmol/L LAB 2075-0(LOINC) Chloride SerPl-sCnc 101 98-107 mmol/L LAB 8-9(LOINC) CO2 SerPl-sCnc 22 22-30 mmo l/L LAB 1863-0(LOINC) Anion Gap4 SerPl-sCnc 9 8-15 mmol/L LAB 52838-3(LOINC) Calcium SerPl-mCnc 9.0 8.5-10.2 mg/dL LAB 42775-4(LOINC) Creatinine + eGFR Pnl SerPlBld 41 Low >=60 mL/min/1. 73m??? Result Comment: Estimated Gl omerular Filtration Rate (eGFR) is calculated using the 2020 CKD-EPI creatinine equation. This equation utilizes serum creatinine, sex, and age as parameters. The creatinine assay has traceable calibration to isotope dilution-mass spectrometry. Refer to KDIGO guidelines for clinical interpretation. In patients with unstable renal function, e.g. those with acute kidney injury, the eGFR may not accurately reflect actual GFR. Performed By: #### 13101-1 # ### [facility] CLIA [id number] [address] THERAPY NT Observed: 02/02/2025 4:49 PM Status: COMPLETED Source: [facility] HNO ID: [id number] Author: CHRISTEN QUICK PT Service: Physical Therapy Author Type: Physical Therapist Type: Therapy (PT/OT/Speech/Resp) Filed: 02/02/2025 16:50 Note Text: Physical Therapy Evaluation Summary SERVICE DATE: 02/02/2025 SERVICE TIME: 1556 to 1625 ROOM: [place] [address] PT 6 Clicks Score: 18 DISCHARGE RECOMMENDATIONS Home Anticipated Discharge Needs: Physical Assist at Home Physical Assist at Home for: Shopping, Transportation ASSESSMENT Response to Therapy Interventions: Good Participation in Activities, Pain pt with abdominal pain but able to mobilize with min A PRECAUTIONS Bed/Chair Alarm CURRENT HOSPITAL COURSE presented to [facility] ED with abd pain--found to have abd wall hematoma Relevant Past Medical History: osteoporosis, afib, HTN, CHF HOME LIVING Patient Lives With: Self/Alone Assistance Available: None (may be moving to [place] and live with dtr and son in law) Entry To Home: Stairs Number Of Stairs Into Home: 1 Number Of Stairs To Bed/Bath: 1 story set up Tub/Shower Type: Walk in shower Laundry: main floor Equipment Owned: Walker- Wheeled, Rollator, Grab Bars- Shower (can get shower chair if needed) PRIOR FUNCTIONAL LEVEL Within Functional Limits Patient completely independent in ADLs/IADLs prior to admission SUBJECTIVE agreeable to PT/mobility THERAPY DIAGNOSIS Reduced mobility-other, Unsteadiness on feet TREATMENT INTERVENTIONS Evaluation, Therapeutic Activity (45496) Timed Code Treatment (minutes): 8 Skilled Treatment Time (minutes): 23 $ Evaluation-Moderate (71942) Billed Units: 1 unit Therapeutic Activity (10688) Treatment Minutes: 8 $ Therapeutic Activity (77244) Billed Units: 1 unit Cues for safe mobility per grid below Cues for safe bed mobility via log roll Cues for hand placement and safety with transfers Cues for safe walker use--stay close to the walker, have upright posture and look up Supine AROM bilat LEs--cues for proper alignment and technique TRAINING AND EDUCATION PROVIDED Bed Mobility, Benefits of In-Hospital Mobility, Discharge Planning, Falls Prevention, Home Safety, Positioning, Role of Physical Therapy, Transfers THERAPEUTIC SKILLS USED Activity Dosing, Assessment of Tolerance Including Vitals Response to Activity, Cues for Sequencing/Proper Technique for Activity, Physical Assist, Movement Facilitation FUNCTIONAL STATUS Bed Mobility Supine To Sit: Minimal Assistance, Additional Information cues for log roll technique Sit to Supine: Stand By Assistance, Additional Information able to bring LEs into bed Transfers Sit To Stand: Contact Guard Assistance, Additional Information cues for hand placement and safety Stand To Sit: Contact Guard Assistance, Additional Information cues for reach back to bed and slowly sit down Bed to Chair Gait Contact Guard Assistance, Stand By Assistance, Additional Information cues for upright posture and stay close to walker Gait Device: Wheeled Walker General Deviations/Observations: Misty decreased, Flexed trunk posture, Step length decreased Gait Distance (feet): amb 50'x2 Stairs Range of Motion: WFL Strength: WFL GOALS Transfer Supine to/from Sit with: Stand By Assistance Transfer Sit to/from Stand with: Stand By Assistance Ambulate with: Stand By Assistance Distance: 100'x2 Device: No Device Goal: sit to/from stand x10 reps SBA Rehab Potential: Good Good Rehab Potential Due To: Good overall health status ACUTE CARE TREATMENT PLAN PT Frequency: 4 Times Per Week (1-4) Treatment Interventions: Education, Functional Mobility Training SIGNATURE: Christen Quick PT PATIENT NAME: Ana Maria Avalos DATE: February 02, 2025 TIME: 4:49 PM PLAN OF CARE Observed: 02/02/2025 2:45 PM Status: COMPLETED Source: [facility] HNO ID: [id number] Author: PILAR MAY MD Service: General Surgery Author Type: Resident Type: Plan of Care Filed: 02/02/2025 14:50 Note Text: Patient has remained hemodynamically stable. The most common course of rectus sheath hematomas is to self-tamponade and resolve spontaneously. Chemoprophylaxis (LMWH or SQ heparin) may be initiated 48-72 hours after hemostasis. If no increase in abdominal pain, drop in hemoglobin, or hypotension, then may resume therapeutic anticoagulation 48-72 hours after starting chemoprophylaxis. There is no indication for surgical intervention at this time. Surgery signing off. Please reach out if there are any questions or concerns. Pilar May MD February 02, 2025 2:46 PM PROGRESS Observed: 02/02/2025 1:11 PM Status: COMPLETED Source: [facility] HNO ID: [id number] Author: HIMANSHU DECKER DO Service: Hospital Medicine Author Type: Physician Type: Progress Notes Filed: 02/02/2025 13:15 Note Text: DEPARTMENT OF HOSPITAL MEDICINE PROGRESS NOTE SERVICE DATE: 02/02/2025 SERVICE TIME: 1:11 PM Hospital Medicine/Primary Attending: Himanshu Decker DO NIGHT AND WEEKEND COVERAGE: After 7pm please page [phone] SUBJECTIVE: Patient seen examined at bedside, no new acute complaints or concerns reported, no events reported overnight. Denies any change in pain worsening. OBJECTIVE: PHYSICAL EXAM: BP 105/66 Pulse 83 Temp (Src) 98 (Oral) Resp 15 Ht 5' 8 (1.73m) Wt 175 lb 6.4 oz (79.6kg) SpO2 95% BMI 26.68 kg/(m2). O2 Therapy: Room Air General - Alert, NAD, Calm ENT- no icterus, MMM CV -irregularly irregular S1 S2, No M/R/G RESP - CTA B/L No wheezes, ronchi, rales ABD - soft, NT, ND, NM +BS, bruising over right flank Neuro- Conversant, follows commands, moves all ext, gross sensation intact Ext:Non-tender, no edema Skin: warm, no rash MEDICATIONS: Current Facility-Administered Medications Medication Dose Route Frequency levothyroxine 112 mcg tab(s) (SYNTHROID) 112 mcg ORAL BEFORE BREAKFAST DAILY NaCl 0.9% iv flush bag 20 mL INTRAVENOUS PRN aluminum-magnesium hydroxide-simethicone 200-200-20 mg/5 mL 30 mL 30 mL ORAL DAILY PRN ondansetron 4 mg tab(s) (ZOFRAN) 4 mg ORAL q 6 H PRN Or ondansetron (PF) 4 mg injection (ZOFRAN) 4 mg INTRAVENOUS q 6 H PRN acetaminophen 650 mg tab(s) (TYLENOL) 650 mg ORAL q 6 H PRN melatonin 3 mg tab(s) 3 mg ORAL AT BEDTIME PRN dapagliflozin propanediol 10 mg tab(s) (FARXIGA) 10 mg ORAL DAILY WITH BREAKFAST atorvastatin 20 mg tab(s) (LIPITOR) 20 mg ORAL AT BEDTIME metoprolol tartrate (short acting) 100 mg tab(s) (LOPRESSOR) 100 mg ORAL BID DATA: Diagnostic tests reviewed for today's visit: CBC: Recent Labs 02/02/25309 WBC 6.10 RBC 3.16* HB 10.2* HCT 30.9* PLT 114* MCV 97.8 MCH 32.3 MPV 9.7 Coags: Recent Labs 02/02/25309 INR 1.8* BMP: Recent Labs 02/02/25309 NA 131* K 5.1 CHLOR 102 CO2 20* BUN 36* CREAT 1.29* GLUC 106* CMP: Recent Labs 02/02/25309 NA 131* K 5.1 CHLOR 102 CO2 20* BUN 36* CREAT 1.29* GLUC 106* CA 8.0* ANION 9 Cardiac Enzymes: No results for input(s): CK, MB, CKMB, TROPT in the last 24 hours. Liver Function, Amylase, Lipase: No results for input(s): TPROT, ALB, ALT, AST, ALKPHOS, TBILI, AMYLASE, LIPASE, LACTATE in the last 24 hours. MG/PHOS: No results for input(s): MG, P in the last 24 hours. Renal Panel: Recent Labs 02/02/25 0310 CREAT 1.29* BUN 36* GLUC 106* CA 8.0* CHLOR 102 K 5.1 CO2 20* NA 131* Heme: No results for input(s): RETICP, ABSRETIC, LD, KEVAN, FE, TIBC,TRANSFERSAT in the last 24 hours. Albumin/Creat Ratio (mg/g) Date Value 01/04/2014 2 Assessment/Plan This is a 89 year old female with: #Rectus sheath hematoma- In the setting of supratherapeutic INR -Surgery recommending 72 hours holding blood thinners monitor hemoglobin - Hold warfarin for now consider resuming tomorrow if hemoglobin remaining stable - Telemetry - Every 4 hours vital signs - Continue monitor hemoglobin closely #Atrial fibrillation on chronic warfarin with supratherapeutic INR -Warfarin on hold monitor INR - Continue metoprolol metoprolol #CHRISTOPHER v CKD improving -Monitor BMP #HFpEF- Last EF 57% - Continue Farxiga 10 mg daily - His metoprolol #Hypertension - Every 4 hours vital signs while holding antihypertensive medications #Hyperlipidemia - Atorvastatin 20 mg daily #Hypothyroidism - Continue levothyroxine 112 mcg daily VTE Prophylaxis: scd Disposition: Home Plan of care discussed with: Provider, RN, Patient. Problem List Rectus sheath hematoma, initial encounter (POA: Yes) Atrial fibrillation (HCC) (POA: Yes) Hypothyroidism (POA: Yes) Essential hypertension (POA: Yes) Chronic diastolic CHF (congestive heart failure) (HCC) (POA: Yes) This note was generated using Storm Player voice dictation. All reasonable efforts were made to correct dictation errors. SIGNATURE: Himanshu Decker DO PATIENT NAME: Ana Maria Avalos DATE: February 02, 2025 TIME: 1:11 PM PAGER/CONTACT #: My Pager CBC W AUTO DIFF BLD Collected: 02/02/2025 3:[address] at[facility]: F Source: [facility] Order Comment: Specimen Type : BLOOD SPECIMEN Ordering Facility: [facility] Address: [address] [place] [address] TYPE CODE TESTS RESULT OUT OF RANGE REFERENCE UNITS LAB 6690-2(LOINC) WBC # Bld Auto 6.10 3.70-11.00 k/uL LAB 789-8([facility]) RBC # Bld Auto 3.16 Low 3.90-5.20 m/ uL LAB 718-7([facility]) Hgb Bld-mCnc 10.2 Low 11.5-15.5 g/dL LAB 4544-3([facility]) Hct VFr Bld Auto 30.9 Low 36.0-46.0 % LAB 787-2([facility]) MCV RBC Auto 97.8 80.0-100.0 fL LAB 785-6([facility]) MCH RBC Qn Auto 32.3 26.0-34.0 p g LAB 786-4([facility]) MCHC RBC Auto-mCnc 33.0 30.5-36.0 g/dL LAB 50960-8([facility]) RDW RBC-Rto 14.6 11.5-15.0 % LAB 777-3([facility]) Platelet # Bld Auto 114 Low 150-400 k/uL LAB 71787-1([facility]) PMV Bld Auto 9.7 9.0-12.7 fL LAB 770-8([facility]) Neutrophils/leuk NFr Bld Auto 60.0 % LAB 751-8([facility]) Neutrophils # Bld Auto 3.66 1.45-7.50 k/uL LAB 736-9([facility]) Lymphocytes/leuk NFr Bld Auto 12.1 % LAB 731-0([facility]) Lymphocytes # Bld Auto 0.74 Low 1.00-4.00 k/uL LAB 5905-5([facility]) Monocytes/leuk NFr Bld Auto 23.9 % LAB 742-7([facility]) Monocytes # Bld Auto 1.46 High <0.87 k/uL LAB 713-8([facility]) Eosinophil/leuk NFr Bld Auto 3.0 % LAB 711-2([facility]) Eosinophil # Bld Auto 0.18 <0.46 k/uL LAB 706-2([facility]) Basophils/leuk NFr Bld Auto 0.5 % LAB 704-7([facility]) Basophils # Bld Auto 0.03 <0.11 k/uL LAB 74802-3([facility]) Imm Granulocytes/mavis k NFr Bld Auto 0.5 % LAB 96112-8(LOINC) Imm Granulocytes # Bld Auto 0.03 <0.10 k/uL LAB 72151-2(LOINC) nRBC/100 WBC Bld-Rto 0.0 /100 WBC LAB 771-6(LOINC) nRBC # Bld Auto <0.01 <0.01 k/u L LAB 23887-9(LOINC) Differential method Bld Auto Performed By: #### 10803-3 # ### [facility] CLIA [id number] [address] PT PNL PPP Collected: 02/02/2025 3:10 AM Status: F Source: [facility] Order Comment: Specimen Type : BLOOD SPECIMEN Ordering Facility: [facility] Address: [address] [place] [address] TYPE CODE TESTS RESULT OUT OF RANGE REFERENCE UNITS LAB 5902-2(LOINC) Prothrombin time 18.4 High 9.7-13.0 sec LAB 6301-6(LOINC) INR PPP 1.8 High 0.9-1.3 Result Comment: Vitamin K An tagonist (VKA) Therapeutic Range: INR 2 to 3 (Target INR of 2.5) Note: For patients treated with VKA drugs, such as warfarin, the [place] [employer] 2012 Guideline recommends a therapeutic INR range of 2 to 3 (target INR of 2.5). This recommendation includes high-risk patients with antiphospholipid syndrome with previous arterial or venous thromboembolism, current-generation mechanical or bioprosthetic aortic heart valve replacement. Note: Patients with mechanical aortic valve replacement and additional risk factors for thromboembolic events (atrial fibrillation, previous thromboembolism, LV dysfunction, hypercoagulable conditions) or an older generation mechanical AVR (i.e., ball in-Cage) or any mechanical MVR should have a INR therapeutic range of 2.5 to 3.5 (target INR of 3). Timothy GH, et al. Chest 2012, 141:7S-47S Madelaine RA et al. [facility] 2017, 70: 252-289 Performed By: #### 34725-9 # ### [facility] CLIA [id number] [address] [place] 2000 PNL SERPL Collected: 10/2024 3:10 AM Status: F Source: [facility] Order Comment: Specimen Type : BLOOD SPECIMEN Ordering Facility: [facility] Address: [place] [address] TYPE CODE TESTS RESULT OUT OF RANGE REFERENCE UNITS LAB 2345-7(LOINC) Glucose SerPl-mCnc 106 High 74-99 mg/dL Result Comment: The [place] [employer] (ADA) provides guidance for cutoff values for fasting glucose and random glucose. The ADA defines fasting as no caloric intake for at least 8 hours. Fasting plasma glucose results between 100 to 125 mg/dL indicate increased risk for diabetes (prediabetes). Fasting plasma glucose results greater than or equal to 126 mg/dL meet the criteria for diagnosis of diabetes. In the absence of unequivocal hyperglycemia, results should be confirmed by repeat testing. In a patient with classic symptoms of hyperglycemia or hyperglycemic crisis, random plasma glucose results greater than or equal to 200 mg/dL meet the criteria for diagnosis of diabetes. Reference: Standards of Medical Care in Diabetes 2016, [place] [employer]. Diabetes Care. 2016.39(Suppl 1). LAB 3094-0(LOINC) BUN SerPl-mCnc 36 High 7-21 mg/ dL LAB 2160-0(LOINC) Creat SerPl-mCnc 1.29 High 0.58-0.96 mg/dL LAB 2951-2(LOINC) Sodium SerPl-sCnc 131 Low 136-144 mmol/L LAB 2823-3(LOINC) Potassium SerPl-sCnc 5.1 3.7-5.1 mmol/L LAB 2075-0(LOINC) Chloride SerPl-sCnc 102 98-107 mmol/L LAB 2027-9(LOINC) CO2 SerPl-sCnc 20 Low 22-30 mmo l/L LAB 1863-0(LOINC) Anion Gap4 SerPl-sCnc 9 8-15 mmol/L LAB 96297-4(LOINC) Calcium SerPl-mCnc 8.0 Low 8.5-10.2 mg/dL LAB 91072-6(LOINC) Creatinine + eGFR Pnl SerPlBld 40 Low >=60 mL/min/1. 73m??? Result Comment: Estimated Gl omerular Filtration Rate (eGFR) is calculated using the 2020 CKD-EPI creatinine equation. This equation utilizes serum creatinine, sex, and age as parameters. The creatinine assay has traceable calibration to isotope dilution-mass spectrometry. Refer to KDIGO guidelines for clinical interpretation. In patients with unstable renal function, e.g. those with acute kidney injury, the eGFR may not accurately reflect actual GFR. Performed By: #### 46155-4 # ### [facility] CLIA [id number] [address] CASE MANAGEM Observed: 02/01/2025 12:16 PM Status: COMPLETED Source: [facility] HNO ID: [id number] Author: STEVE VALDERRAMA RN Service: Care Management Author Type: Registered Nurse Type: Care Mgt Progress Note Filed: 02/01/2025 12:19 Note Text: CARE MANAGEMENT PROGRESS NOTE SERVICE DATE: 02/01/2025 SERVICE TIME: 1216 LOS: 1 day Needs Prior to Discharge: To Be Determined, OT/PT Evaluation Chart reviewed. Patient admitted from home alone. Recommend therapy evaluation to assist with discharge planning. Discharge disposition TBD. CM will continue to follow. SIGNATURE: Steve Valderrama RN PATIENT NAME: Ana Maria Avalos DATE: February 01, 2025 TIME: 12:16 PM PROGRESS Observed: 02/01/2025 11:35 AM Status: COMPLETED Source: [facility] HNO ID: [id number] Author: HIMANSHU DECKER DO Service: Hospital Medicine Author Type: Physician Type: Progress Notes Filed: 02/01/2025 11:46 Note Text: DEPARTMENT OF HOSPITAL MEDICINE PROGRESS NOTE SERVICE DATE: 02/01/2025 SERVICE TIME: 11:37 AM Hospital Medicine/Primary Attending: Himanshu Decker DO NIGHT AND WEEKEND COVERAGE: After 7pm please page [phone] SUBJECTIVE: Patient seen and examined at bedside, no new acute complaints returns reported, no events reported overnight. Reports abdomen pain is improving feels less bloated. OBJECTIVE: PHYSICAL EXAM: BP 125/76 Pulse 139 Temp (Src) 97.9 (Oral) Resp 18 Ht 5' 8 (1.73m) Wt 175 lb 6.4 oz (79.6kg) SpO2 92% BMI 26.68 kg/(m2). O2 Therapy: Room Air General - Alert, NAD, Calm ENT- no icterus, MMM CV -irregularly irregular S1 S2, No M/R/G RESP - CTA B/L No wheezes, ronchi, rales ABD - soft, NT, ND, NM +BS Neuro- Conversant, follows commands, moves all ext, gross sensation intact Ext:Non-tender, no edema Skin: warm, no rash MEDICATIONS: Current Facility-Administered Medications Medication Dose Route Frequency levothyroxine 112 mcg tab(s) (SYNTHROID) 112 mcg ORAL BEFORE BREAKFAST DAILY NaCl 0.9% iv flush bag 20 mL INTRAVENOUS PRN aluminum-magnesium hydroxide-simethicone 200-200-20 mg/5 mL 30 mL 30 mL ORAL DAILY PRN ondansetron 4 mg tab(s) (ZOFRAN) 4 mg ORAL q 6 H PRN Or ondansetron (PF) 4 mg injection (ZOFRAN) 4 mg INTRAVENOUS q 6 H PRN acetaminophen 650 mg tab(s) (TYLENOL) 650 mg ORAL q 6 H PRN melatonin 3 mg tab(s) 3 mg ORAL AT BEDTIME PRN dapagliflozin propanediol 10 mg tab(s) (FARXIGA) 10 mg ORAL DAILY WITH BREAKFAST [START ON 02/02/2025] atorvastatin 20 mg tab(s) (LIPITOR) 20 mg ORAL AT BEDTIME metoprolol tartrate (short acting) 100 mg tab(s) (LOPRESSOR) 100 mg ORAL BID DATA: Diagnostic tests reviewed for today's visit: CBC: Recent Labs 02/01/25 0204 WBC 6.74 RBC 3.52* HB 11.2* HCT 35.1* PLT 145* MCV 99.7 MCH 31.8 MPV 9.1 Coags: Recent Labs 02/01/25 0923 INR 1.5* BMP: Recent Labs 02/01/25 0204 NA 131* K 4.6 CHLOR 101 CO2 20* BUN 38* CREAT 1.39* GLUC 120* CMP: Recent Labs 02/01/25 0204 NA 131* K 4.6 CHLOR 101 CO2 20* BUN 38* CREAT 1.39* GLUC 120* CA 8.6 ANION 10 Cardiac Enzymes: No results for input(s): CK, MB, CKMB, TROPT in the last 24 hours. Liver Function, Amylase, Lipase: No results for input(s): TPROT, ALB, ALT, AST, ALKPHOS, TBILI, AMYLASE, LIPASE, LACTATE in the last 24 hours. MG/PHOS: No results for input(s): MG, P in the last 24 hours. Renal Panel: Recent Labs 02/01/25 0204 CREAT 1.39* BUN 38* GLUC 120* CA 8.6 CHLOR 101 K 4.6 CO2 20* NA 131* Heme: No results for input(s): RETICP, ABSRETIC, LD, KEVAN, FE, TIBC,TRANSFERSAT in the last 24 hours. Albumin/Creat Ratio (mg/g) Date Value 01/04/2014 2 Assessment/Plan This is a 89 year old female with: #Rectus sheath hematoma- In the setting of supratherapeutic INR -Surgery recommending 72 hours holding blood thinners monitor hemoglobin - Hold warfarin and antihypertensive medications - Telemetry - Every 4 hours vital signs - Serial hemoglobin every 6 hours x 24 hours #Atrial fibrillation on chronic warfarin with supratherapeutic INR -Warfarin on hold monitor INR -Resume metoprolol #CHRISTOPHER v CKD improving -Monitor BMP #HFpEF- Last EF 57% - Continue Farxiga 10 mg daily - His metoprolol #Hypertension - Every 4 hours vital signs while holding antihypertensive medications #Hyperlipidemia - Atorvastatin 20 mg daily #Hypothyroidism - Continue levothyroxine 112 mcg daily VTE Prophylaxis: scd Disposition: Home Plan of care discussed with: Provider, RN, Patient. Problem List Rectus sheath hematoma, initial encounter (POA: Yes) Atrial fibrillation (HCC) (POA: Yes) Hypothyroidism (POA: Yes) Essential hypertension (POA: Yes) Chronic diastolic CHF (congestive heart failure) (HCC) (POA: Yes) This note was generated using Storm Player voice dictation. All reasonable efforts were made to correct dictation errors. SIGNATURE: Himanshu Decker DO PATIENT NAME: Ana Maria Avalos DATE: February 01, 2025 TIME: 11:37 AM PAGER/CONTACT #: My Pager PT PNL PPP Collected: 02/01/2025 9:23 AM Status: F Source: [facility] Order Comment: Specimen Type : BLOOD SPECIMEN Ordering Facility: [facility] Address: [address] [place] [address] TYPE CODE TESTS RESULT OUT OF RANGE REFERENCE UNITS LAB 5902-2(LOINC) Prothrombin time 15.7 High 9.7-13.0 sec LAB 6301-6(LOINC) INR PPP 1.5 High 0.9-1.3 Result Comment: Vitamin K An tagonist (VKA) Therapeutic Range: INR 2 to 3 (Target INR of 2.5) Note: For patients treated with VKA drugs, such as warfarin, the [place] [employer] 2012 Guideline recommends a therapeutic INR range of 2 to 3 (target INR of 2.5). This recommendation includes high-risk patients with antiphospholipid syndrome with previous arterial or venous thromboembolism, current-generation mechanical or bioprosthetic aortic heart valve replacement. Note: Patients with mechanical aortic valve replacement and additional risk factors for thromboembolic events (atrial fibrillation, previous thromboembolism, LV dysfunction, hypercoagulable conditions) or an older generation mechanical AVR (i.e., ball in-Cage) or any mechanical MVR should have a INR therapeutic range of 2.5 to 3.5 (target INR of 3). Timothy GH, et al. Chest 2012, 141:7S-47S Madelaine RA, et al. [facility] 2017, 70: 252-289 Performed By: #### 61926-1 # ### [facility] CLIA [id number] [address] STATES OF [facility] CBC PNL BLD AUTO Collected: 02/01/2025 2:04 AM Statu s: F Source: [facility] Order Comment: Specimen Type : BLOOD SPECIMEN Ordering Facility: [facility] Address: [address] [place] [address] TYPE CODE TESTS RESULT OUT OF RANGE REFERENCE UNITS LAB 6690-2(LOINC) WBC # Bld Auto 6.74 3.70-11.00 k/uL LAB 789-8(LOINC) RBC # Bld Auto 3.52 Low 3.90-5.20 m/ uL LAB 718-7(LOINC) Hgb Bld-mCnc 11.2 Low 11.5-15.5 g/dL LAB 4544-3(LOINC) Hct VFr Bld Auto 35.1 Low 36.0-46.0 % LAB 787-2(LOINC) MCV RBC Auto 99.7 80.0-100.0 fL LAB 785-6(LOINC) MCH RBC Qn Auto 31.8 26.0-34.0 pg LAB 786-4(LOINC) MCHC RBC Auto-mCnc 31.9 30.5-36.0 g/dL LAB 97876-9(LOINC) RDW RBC-Rto 14.6 11.5-15.0 % LAB 777-3(LOINC) Platelet # Bld Auto 145 Low 150-400 k/uL LAB 39280-4(LOINC) PMV Bld Auto 9.1 9.0-12.7 fL LAB 771-6(LOINC) nRBC # Bld Auto 0.02 High <0.01 k/uL Performed By: #### 42327-0 # ### [facility] CLIA [id number] [address] [place] 2000 PNL SERPL Collected: 09/2024 2:04 AM Status: F Source: [facility] Order Comment: Specimen Type : BLOOD SPECIMEN Ordering Facility: [facility] Address: [address] [place] [address] TYPE CODE TESTS RESULT OUT OF RANGE REFERENCE UNITS LAB 2345-7(LOINC) Glucose SerPl-mCnc 120 High 74-99 mg/dL Result Comment: The [place] [employer] (ADA) provides guidance for cutoff values for fasting glucose and random glucose. The ADA defines fasting as no caloric intake for at least 8 hours. Fasting plasma glucose results between 100 to 125 mg/dL indicate increased risk for diabetes (prediabetes). Fasting plasma glucose results greater than or equal to 126 mg/dL meet the criteria for diagnosis of diabetes. In the absence of unequivocal hyperglycemia, results should be confirmed by repeat testing. In a patient with classic symptoms of hyperglycemia or hyperglycemic crisis, random plasma glucose results greater than or equal to 200 mg/dL meet the criteria for diagnosis of diabetes. Reference: Standards of Medical Care in Diabetes 2016, [place] [employer]. Diabetes Care. 2016.39(Suppl 1). LAB 3094-0(LOINC) BUN SerPl-mCnc 38 High 7-21 mg/ dL LAB 2160-0(LOINC) Creat SerPl-mCnc 1.39 High 0.58-0.96 mg/dL LAB 2951-2(LOINC) Sodium SerPl-sCnc 131 Low 136-144 mmol/L LAB 2823-3(LOINC) Potassium SerPl-sCnc 4.6 3.7-5.1 mmol/L LAB 2075-0(LOINC) Chloride SerPl-sCnc 101 98-107 mmol/L LAB 8-9(LOINC) CO2 SerPl-sCnc 20 Low 22-30 mmo l/L LAB 1863-0(LOINC) Anion Gap4 SerPl-sCnc 10 8-15 mmol/L LAB 03187-4(LOINC) Calcium SerPl-mCnc 8.6 8.5-10.2 mg/dL LAB 66796-1(LOINC) Creatinine + eGFR Pnl SerPlBld 37 Low >=60 mL/min/1. 73m??? Result Comment: Estimated Gl omerular Filtration Rate (eGFR) is calculated using the 2020 CKD-EPI creatinine equation. This equation utilizes serum creatinine, sex, and age as parameters. The creatinine assay has traceable calibration to isotope dilution-mass spectrometry. Refer to KDIGO guidelines for clinical interpretation. In patients with unstable renal function, e.g. those with acute kidney injury, the eGFR may not accurately reflect actual GFR. Performed By: #### 89932-1 # ### [facility] CLIA [id number] [address] HGB BLD-MCNC Collected: 01/31/2025 9:26 PM Status: F Source: [facility] Order Comment: Specimen Type : BLOOD SPECIMEN Ordering Facility: [facility] Address: [address] [place] [address] TYPE CODE TESTS RESULT OUT OF RANGE REFERENCE UNITS LAB 718-7([facility]) Hgb Bld-mCnc 12.1 11.5-15.5 g/dL Performed By: #### 718-7 ### # [facility] CLIA [id number] [address] CASE MGT INCAREY ARREOLA Observed: 01/31/2025 5:11 PM Status: COMPLETED Source: [facility] HNO ID: [id number] Author: KALEB MALDONADO RN Service: Care Management Author Type: Registered Nurse Type: Care Mgt Initial Assessment Filed: 01/31/2025 17:19 Note Text: CARE MANAGEMENT: ASSESSMENT AND DISCHARGE PLAN SERVICE DATE: January 31, 2025 SERVICE TIME: 5:11 PM PCP: Agnieszka Fish MD Primary Contact: Extended Emergency Contact Information Primary Emergency Contact: Tracee Pope Mobile Relation: Daughter Secondary Emergency Contact: Nehal Boles Mobile Relation: Other Admission Status: Inpatient Insurance Provider: MEDICARE A AND B Discharge Planning requested by: Per Department Practice Potential Transition Plans To Be Determined Advance Directives Current Advance Directive: None Milling Supervisor Attempted to Assist with AD Completion: Yes Action: Education Provided Current Living Arrangements and Support Lives with: Alone Type of Residence: Private Residence (House) Does the patient have to climb stairs at home?: No Support: Friends/neighbors, Children How do you manage to accomplish the following: Independent: Ambulation, Bathe/Shower, Dress, Meals/Meal Prep, Going to the bathroom, Medication Management, Transportation to appointments/community Current Services/Equipment Current Post-Acute Service(s): DME Current DME Type: Walker Discharge Planning Patient Goal(s): Be able to go home, Go shopping with little to no assistance, Back to cooking [place] Explained: [place] Given: No Are you interested in bedside delivery of your medications? No Discharge Planning Participant(s): Patient Patient/Family Comments: Caregiver Assessment: Caregiver is ready, willing and able to meet the patient's needs as recommended by the inter-professional team: No Caregiver needed Transport at Discharge: Transportation Arrangements: Car Needs Prior to Discharge: Needs Prior to Discharge: To Be Determined Post-Acute Discharge Plan: CM Reviewed chart. Plan to admit patient to monitor HGB. Gen surg following for abdominal hematoma, but no planned surgery at this time. CM met with patient at the bedside. Introduced self and role[place] She still drives herself to the store for groceries and will work on the yard. PALLIATIVE CARE NURSE PRACTITIONER she was ind with all ADL's. Her son lives near by but is not super helpful. Has a walker but does not use it. +DME, +PCP. Anticipate patient will be discharging home pending clinical course. She states if she does need placement she would prefer somewhere in [place]. Friends will be able to transport home. SIGNATURE: Kaleb Maldonado RN PATIENT NAME: Ana Maria Avalos DATE: January 31, 2025 TIME: 5:11 PM HGB BLD-MCNC Collected: 01/31/2025 3:54 PM Status: F Source: [facility] Order Comment: Specimen Type : BLOOD SPECIMEN Ordering Facility: [facility] Address: [address] [place] [address] TYPE CODE TESTS RESULT OUT OF RANGE REFERENCE UNITS LAB 718-7(LOINC) Hgb Bld-mCnc 11.9 11.5-15.5 g/dL Performed By: #### 718-7 ### # [facility] CLIA [id number] [address] HGB BLD-MCNC Collected: 01/31/2025 9:28 AM Status: F Source: [facility] Order Comment: Specimen Type : BLOOD SPECIMEN Ordering Facility: [facility] Address: [address] [place] [address] TYPE CODE TESTS RESULT OUT OF RANGE REFERENCE UNITS LAB 718-7(LOINC) Hgb Bld-mCnc 11.8 11.5-15.5 g/dL Performed By: #### 718-7 ### # [facility] CLIA [id number] [address] HISTORY PHYSICAL Observed: 01/31/2025 8:46 AM Status: COMPLETED Source: [facility] HNO ID: [id number] Author: PAT SEARS APRN.CNP Service: Hospital Medicine Author Type: Nurse Practitioner Type: H&P Filed: 01/31/2025 08:56 Note Text: DEPARTMENT OF HOSPITAL MEDICINE HISTORY AND PHYSICAL EXAM SERVICE DATE: 01/31/2025 SERVICE TIME: 8:46 AM NIGHT AND WEEKEND COVERAGE: After 7pm call #[phone] Chief complaint: Transfer from [place] for rectus sheath hematoma HPI: This is an 89-year-old female with prior history of atrial fibrillation on warfarin, HFpEF, hypertension, hyperlipidemia and hypothyroidism. She initially went to [place] for abdominal pain and then transferred here because she was found to have a rectus sheath hematoma. She is on warfarin and denies recent changes. Denies active bleeding. No chest pain or dyspnea. She does have some lightheadedness. No other signs of bleeding. Patient was seen by general surgery with no plans for intervention. She is hemodynamically stable with a hemoglobin of 12.5. INR was elevated at 5.3 and she received vitamin K. Sodium 134, potassium 4.9, creatinine 1.49, WBC 5 and platelets 179. History and labs reviewed. Discussed with ED staff and pt will be admitted to [facility]. 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 LTK replacement arthroplasty SIGMOIDOSCOPY FLX DX W/COLLJ SPEC BR/WA IF PFRMD 08/03/1999 Sigmoidoscopy FAMILY HISTORY Problem Relation Age of Onset Hypertension Mother Arthritis Mother Hypertension Sister Asthma Sister Osteoporosis Paternal Aunt Social History Tobacco Use Smoking status: Never Smokeless tobacco: Never Vaping Use Vaping status: Never Used Substance Use Topics Alcohol use: Yes Comment: Rarely Drug use: No DATA: Diagnostic tests reviewed for today's visit: No orders to display WBC (k/uL) Date Value 01/31/2025 5.92 RBC (m/uL) Date Value 01/31/2025 4.00 Hemoglobin (g/dL) Date Value 01/31/2025 12.5 Hematocrit (%) Date Value 01/31/2025 40.0 MCV (fL) Date Value 01/31/2025 100.0 MCH (pg) Date Value 01/31/2025 31.3 MCHC (g/dL) Date Value 01/31/2025 31.3 RDW-CV (%) Date Value 01/31/2025 14.3 Platelet Count (k/uL) Date Value 01/31/2025 179 MPV (fL) Date Value 01/31/2025 9.5 Glucose (mg/dL) Date Value 01/31/2025 102 (H) BUN (mg/dL) Date Value 01/31/2025 36 (H) Creatinine (mg/dL) Date Value 01/31/2025 1.49 (H) Sodium (mmol/L) Date Value 01/31/2025 134 (L) Potassium (mmol/L) Date Value 01/31/2025 4.9 Chloride (mmol/L) Date Value 01/31/2025 102 CO2 (mmol/L) Date Value 01/31/2025 19 (L) Protein, Total (g/dL) Date Value 01/31/2025 5.6 (L) Albumin (g/dL) Date Value 01/31/2025 3.5 (L) Calcium, Total (mg/dL) Date Value 01/31/2025 8.7 Alkaline Phosphatase (U/L) Date Value 01/31/2025 102 Bilirubin, Total (mg/dL) Date Value 01/31/2025 1.6 (H) AST (U/L) Date Value 01/31/2025 48 (H) ALT (U/L) Date Value 01/31/2025 34 URINLAYSIS Specific [place], Ur Date Value Ref Range Status 01/06/2017 1.015 1.005 - 1.030 Final Glucose, Urine Date Value Ref Range Status 01/06/2017 neg Neg mg/dL Final Bilirubin, Urine Date Value Ref Range Status 01/06/2017 neg Neg Final Ketones, Urine Date Value Ref Range Status 01/06/2017 neg Neg Final Hemoglobin/Blood,Ur Date Value Ref Range Status 01/06/2017 trace Neg Final Protein, Urine Date Value Ref Range Status 01/06/2017 30 Neg mg/dL Final Urobilinogen, Urine Date Value Ref Range Status 01/06/2017 0.2 Normal (<1.1) EU Final Leukocytes Date Value Ref Range Status 01/06/2017 mod Neg Final ALLERGIES Allergen Reactions Codeine Hives Maya A500 [Prop* Intolerance Venom-Honey Bee Unknown REVIEW OF SYSTEM: Abdominal pain, lightheadedness. All systems reviewed and negative except as stated in HPI PHYSICAL EXAM: BP 101/62 Pulse 85 Temp (Src) 97.4 (Oral) Resp 17 Ht 5' 8 (1.73m) Wt 175 lb 6.4 oz (79.6kg) SpO2 100% BMI 26.68 kg/(m2). O2 Therapy: Room Air GENERAL: Alert, no distress, cooperative LUNGS: Lungs clear to auscultation, Unlabored CARDIAC: S1S2, irregular ABDOMEN: Abdomen soft, BS normal, NT EXTREMITIES: Extremities normal. no deformities, edema, or clubbing NEURO: AANDOX3, speech fluent HOME MEDICATIONS: Prior to Admission Medications Prescriptions Last Dose Informant Patient Reported? Taking? B COMPLEX TAB Yes No Sig: Take 1 tablet by mouth once daily. CALCIUM + D 600 MG-200 UNIT TAB Yes No Sig: Take one(1) tablet two(2) times daily. Cholecalciferol, Vitamin D3, (VITAMIN D-3) 50 mcg (2,000 unit) cap Yes No Sig: Take 4,000 Units by mouth once daily. FOLIC ACID ORAL Yes No Sig: Take 400 mcg by mouth once daily. GLUCOSAMINE CHONDROITIN MAXSTR 500 MG-400 MG CAP Yes No Sig: Take two (2) tablet three times daily. MULTIVITAMIN TAB Yes No Sig: Take one(1) tablet daily. Qnjni-8-BUL-EPA-Fish Oil (FISH OIL) 1,000 mg (120 mg-180 mg) cap Yes No Sig: Take 2 g by mouth two times a day. acetaminophen (TYLENOL) 325 mg tablet Yes No Sig: Take 650 mg by mouth every 4 hours as needed. alendronate (FOSAMAX) 70 mg tablet Yes No Sig: Take 1 tablet by mouth one time a week. On Saturdays ascorbic acid(VITAMIN C 500 MG TAB) Yes No Sig: Take 1,000 mg by mouth daily at bedtime. atorvastatin (LIPITOR) 20 mg tablet No No Sig: Take 1 tablet by mouth once daily. cyanocobalamin (VITAMIN B-12) 1,000 mcg tab Yes No Sig: Take 1,000 mcg by mouth once daily. dapagliflozin propanediol (FARXIGA) 10 mg tablet Yes No Sig: Take 10 mg by mouth daily with breakfast. levothyroxine (SYNTHROID) 112 mcg tablet Yes No Sig: Take 112 mcg by mouth daily before breakfast. losartan (COZAAR) 50 mg tablet No No Sig: Take 1 tablet by mouth once daily. Patient taking differently: Take 25 mg by mouth once daily. metoprolol tartrate, short acting, (LOPRESSOR) 100 mg tablet Yes No Sig: Take 100 mg by mouth two times a day. spironolactone (ALDACTONE) 25 mg tablet Yes No Sig: Take 25 mg by mouth once daily. warfarin (COUMADIN) 3 mg tablet Yes No Sig: Take 6 mg by mouth daily as directed. Facility-Administered Medications: None PROBLEM LIST: Rectus sheath hematoma, initial encounter (POA: Yes) Atrial fibrillation (HCC) (POA: Yes) Hypothyroidism (POA: Yes) Essential hypertension (POA: Yes) Chronic diastolic CHF (congestive heart failure) (HCC) (POA: Yes) A/P: *Rectus sheath hematoma - In the setting of supratherapeutic INR - Seen by surgery with no plans for intervention as patient is hemodynamically stable with a hemoglobin of 12.5 - Hold warfarin and antihypertensive medications - Telemetry - Every 4 hours vital signs - Serial hemoglobin every 6 hours x 24 hours *Atrial fibrillation on chronic warfarin with supratherapeutic INR - INR 5.3 and patient received vitamin K - Hold warfarin - INR in a.m. *CHRISTOPHER v CKD - Creatinine 1.49. Last creatinine in [facility] was in 2021 -BMP in a.m. *HFpEF - Last EF 57% - Continue Farxiga 10 mg daily *Hypertension - Every 4 hours vital signs while holding antihypertensive medications *Hyperlipidemia - Atorvastatin 20 mg daily *Hypothyroidism - Continue levothyroxine 112 mcg daily PAGE 1526 UNTIL 7PM TODAY VTE Prophylaxis: Patient is already anti-coagulated. Plan of care discussed with: patient SIGNATURE: Pat Sears APRN.CNP PATIENT NAME: Ana Maria Avalos DATE: January 31, 2025 TIME: 8:46 AM PAGER/CONTACT #: [phone] ED NOTE Observed: 01/31/2025 3:19 AM Status: COMPLETED Source: [facility] HNO ID: [id number] Author: NIA LOPEZ RN Service: Emergency Medicine Author Type: Registered Nurse Type: ED Notes Filed: 01/31/2025 03:20 Note Text: While administering medication pt requested pain medication. This nurse to notify physician. CONSULT Observed: 01/31/2025 2:49 AM Status: COMPLETED Source: [facility] HNO ID: [id number] Author: SUSANA RODRIGUEZ MD Service: General Surgery Author Type: Physician Type: Consults Filed: 01/31/2025 23:38 Note Text: HISTORY AND PHYSICAL EXAM: EGS SERVICE SERVICE DATE: 01/31/2025 SERVICE TIME: 2:49 AM Subjective CHIEF COMPLAINT: Rectus Sheath Hematoma HPI: 89 year old female with many co morbidities PMH Afib on coumadin, HLD, HTN, HLD, hypothyroidism, T2DM, CAD, CHF, Pulm HTN. [facility] with a couple days of Right hemiabdomen pain and concern for rectus sheath hematoma. She reports she has never had this pain before. She denies any recent heavy lifting, coughing, or trauma to the area. She states she has also noticed some swelling over the area where the pain is but has not noticed any skin changes or rashes. She notes that she takes warfarin for a-fib and typically is in therapeutic range. She denies any nausea, vomiting, constipation, or diarrhea. No fevers or chills. She has otherwise felt well. Labs in the ED reveal a PT/INR of 5.6. Unclear if her warfarin was reversed at the outside ED. CTAP notable for a rectus sheath hematoma. PAST MEDICAL HISTORY Diagnosis Date Ankle fracture 10/23/2014 trimalleolar fracture right ankle (11/02 suregery) Arthritis Atrial fibrillation (HCC) INR goal 2.5-3.5 Degeneration of intervertebral disc, site unspecified DDD; had sciatica in her 40's Disorder of bone and cartilage, unspecified osteopenia Diverticulosis of colon (without mention of hemorrhage) Dyslipidemia Essential hypertension, benign History of total left knee replacement Nontoxic multinodular goiter Pure hypercholesterolemia Unspecified hypothyroidism PAST SURGICAL HISTORY Procedure Laterality Date BX BREAST PERC VACUUM/ROTN 12/27/2009 CARDIOVERSION 03/03/2011 In [facility] [place] FEMORAL SUPRACONDYLAR FRACTURE W/XTN Left 08/29/2021 PAST SURGICAL HISTORY OF right ankle ORIF for triamalleolar fracture S $ KNEE TOTAL ARTHR PRASHANTH Left 05/07/2015 [facility] [place]. LTK replacement arthroplasty SIGMOIDOSCOPY FLX DX W/COLLJ SPEC BR/WA IF PFRMD 08/03/1999 Sigmoidoscopy FAMILY HISTORY Problem Relation Age of Onset Hypertension Mother Arthritis Mother Hypertension Sister Asthma Sister Osteoporosis Paternal Aunt Social History Tobacco Use Smoking status: Never Smokeless tobacco: Never Vaping Use Vaping status: Never Used Substance Use Topics Alcohol use: Yes Comment: Rarely Drug use: No (Not in a hospital admission) ALLERGIES Allergen Reactions Codeine Hives Darvocet A500 [Prop* Intolerance Venom-Honey Bee Unknown COMPLETE REVIEW OF SYSTEMS: Pertinent positives and negatives noted in the HPI. Complete ROS otherwise negative. Objective BP 101/62 Pulse 86 Temp (Src) 97.4 (Oral) Resp 16 Ht 5' 8 (1.73m) Wt 175 lb 6.4 oz (79.6kg) SpO2 96% BMI 26.68 kg/(m2). O2 Therapy: Room Air PHYSICAL EXAM: GENERAL: Alert. No distress. Resting comfortably. NEURO: AANDOx3. No focal neurologic deficits. Sensation grossly intact. HEENT: Normocephalic. Atraumatic. EOMI. LUNGS: Unlabored breathing. Equal excursion bilaterally. CARDIAC: Regular rate. Good perfusion throughout. ABDOMEN: Right hemiabdomen more firm than left and mildly TTP. No overlying skin changes. Abdomen otherwise soft, non-distended. EXTREMITIES: GRAVES. No deformities. SKIN: No obvious jaundice or pallor. DATA: Labs: Recent Labs 01/31/25 0157 NA 134* K 4.9 CHLOR 102 CO2 19* BUN 36* CREAT 1.49* GLUC 102* ANION 13 CA 8.7 ALB 3.5* AST 48* ALT 34 ALKPHOS 102 TBILI 1.6* WBC 5.92 HB 12.5 HCT 40.0 PLT 179 INR 5.3* No orders to display Diagnostic tests reviewed for today's visit: Most recent labs and imaging results. No orders to display Assessment/Plan There are no active hospital problems to display for this patient. 89 year old female with many co morbidities PMH Afib on coumadin, HLD, HTN, HLD, hypothyroidism, T2DM, CAD, CHF, Pulm HTN. She presents to [facility] with a couple days of Right hemiabdomen pain and concern for rectus sheath hematoma. Hospital Course/Operations/Procedures: * No surgery found * Plan: Rectus sheath hematoma - Patient currently HDS not tachycardic with normal hgb. - Bleed likely to tamponade in rectus sheath once anticoagulant reversal administered - No acute surgical intervention indicated. - Recommend medical admission - if not previously reversed at [facility], would recommend reversal of coumadin - If patient becomes unstable, would recommend CTA and discussion with IR of embolization or thrombin injection into rectus sheath - rest of care per primary - Code status: Code Status: Not on file Assessment and plan d/w Dr. Rodriguez. SIGNATURE: Rosalio Kraft MD PATIENT NAME: Ana Maria Avalos DATE: 01/31/2025 TIME: 2:49 AM Pager: See below. Emergency General Surgery (EGS) Staff Addendum: Briefly, this is a 89 YO patient presenting with acute onset R abdominal pain and swelling. No reported traumatic event (+) supratherapeutic INR, (+) therapeutic anticoagulation No hypotension or hypoxia. On exam: Lungs CTAB. CV regular. Abdomen is soft, (+) palpable fullness R rectus mm sheath. CT a/p reviewed with patient. Labs noted Impression: Patient Active Hospital Problem List: Rectus sheath hematoma, initial encounter Date Noted: 01/31/2025 Hypothyroidism Date Noted: Essential hypertension Date Noted: 12/19/2005 Atrial fibrillation (HCC) Date Noted: 12/16/2010 Chronic diastolic CHF (congestive heart failure) (HCC) Date Noted: 11/12/2018 Our plan of care includes: Serial H/H and hemodynamics Abdominal surveillance Hold therapeutic anticoagulation at this time Hematoma expected to tamponade within the rectus sheath Anticoagulation can generally be restarted after rectus sheath hematoma once hemostasis is achieved and the patient is clinically stable, with most patients in observational studies safely resuming anticoagulation by day 4 after diagnosis. [employer] recommends timing of reinitiation be individualized, balancing thrombotic and rebleeding risks. For high bleeding risk situations, such as rectus sheath hematoma, therapeutic anticoagulation is typically delayed for 48-72hrs after hemostasis. Chemoprophylaxis (LMWH or SQ heparin) dosing likely can be initiated at 48-72hrs if H/H stable and no hypotension. Then OK to resume therapeutic anticoagulation 48-72hrs after starting chemoprophylaxis if no increase in abdominal pain, drop in H/H or hypotension. Please call if any questions or concerns with this plan. Attending Note I evaluated the patient and personally participated in the delgadillo components. I agree with the resident's findings and plan as documented and have discussed the case and management of the patient's care with the resident. Susana Rodriguez MD Department of General Surgery Division of Trauma, Critical Care, and Acute Care Surgery January 31, 2025 11:26 PM ED PROV NOTE Observed: 01/31/2025 2:25 AM Status: COMPLETED Source: [facility] HNO ID: [id number] Author: STEVE RED MD Service: Emergency Medicine Author Type: Resident Type: ED Provider Notes Filed: 01/31/2025 05:32 Note Text: Attestation signed by Steve Red MD at 01/31/2025 5:32 AM Attending Note I evaluated the patient and personally participated in the delgadillo components. I agree with the resident's findings and plan as documented and have discussed the case and management of the patient's care with the resident. Please see separate ED provider note for additional details/changes to resident documentation. Signature: Steve Red MD Date: 01/31/2025 Time: 3:30 AM ED Provider Note Patient Name: Ana Maria Avalos : 1935 SERVICE DATE: 01/31/25 History Patient presents with: Functional Transfers: Arrives via EMS from [facility] D/T ABD wall hematoma. Pt denies falls and/or accidents. A/Ox4. + Coumadin. 89-year-old female presenting to the emergency department with abdominal wall hematoma reported from [facility]. Patient denies any trauma to the abdomen recently and states that the pain has been worsening throughout the last day. Patient states that she has been having history of recent swelling all over her body including her abdomen but states that she began experiencing abdominal pain yesterday which prompted her to be evaluated in the ER. History provided by: Patient PAST MEDICAL HISTORY Diagnosis Date Ankle fracture 10/23/2014 trimalleolar fracture right ankle (11/02 suregery) Arthritis Atrial fibrillation (HCC) INR goal 2.5-3.5 Degeneration of intervertebral disc, site unspecified DDD; had sciatica in her 40's Disorder of bone and cartilage, unspecified osteopenia Diverticulosis of colon (without mention of hemorrhage) Dyslipidemia Essential hypertension, benign History of total left knee replacement Nontoxic multinodular goiter Pure hypercholesterolemia Unspecified hypothyroidism PAST SURGICAL HISTORY Procedure Laterality Date BX BREAST PERC VACUUM/ROTN 12/27/2009 CARDIOVERSION 03/03/2011 In [facility] [place] FEMORAL SUPRACONDYLAR FRACTURE W/XTN Left 08/29/2021 PAST SURGICAL HISTORY OF right ankle ORIF for triamalleolar fracture S $ KNEE TOTAL ARTHR PRASHANTH Left 05/07/2015 [facility] [place]. LTK replacement arthroplasty SIGMOIDOSCOPY FLX DX W/COLLJ SPEC BR/WA IF PFRMD 08/03/1999 Sigmoidoscopy FAMILY HISTORY Problem Relation Age of Onset Hypertension Mother Arthritis Mother Hypertension Sister Asthma Sister Osteoporosis Paternal Aunt Social History Tobacco Use Smoking status: Never Smokeless tobacco: Never Vaping Use Vaping status: Never Used Substance and Sexual Activity Alcohol use: Yes Comment: Rarely Drug use: No Sexual activity: Not Currently Comment: with prostrate cancer/ ALLERGIES Allergen Reactions Codeine Hives Darvocet A500 [Prop* Intolerance Venom-Honey Bee Unknown Review of Systems All other systems reviewed and are negative. Physical Exam Vitals [01/31/25 0120] BP Pulse Temp Temp src Resp SpO2 Weight Height 101/78 (!) 92 36.3 ?C (97.4 ?F) Oral 12 96 % 79.6 kg (175 lb 6.4 oz) 1.727 m (5' 8) Physical Exam Vitals and nursing note reviewed. Constitutional: General: She is not in acute distress. Appearance: Normal appearance. She is not toxic-appearing. HENT: Head: Normocephalic and atraumatic. Nose: Nose normal. Mouth/Throat: Mouth: Mucous membranes are moist. Eyes: Extraocular Movements: Extraocular movements intact. Pupils: Pupils are equal, round, and reactive to light. Cardiovascular: Rate and Rhythm: Normal rate and regular rhythm. Heart sounds: No murmur heard. No friction rub. No gallop. Pulmonary: Effort: Pulmonary effort is normal. Breath sounds: Normal breath sounds. No wheezing, rhonchi or rales. Abdominal: General: Abdomen is flat. There is distension. Palpations: Abdomen is soft. Tenderness: There is abdominal tenderness. There is guarding. Musculoskeletal: General: Normal range of motion. Cervical back: Normal range of motion. Skin: General: Skin is warm and dry. Neurological: General: No focal deficit present. Mental Status: She is alert and oriented to person, place, and time. Psychiatric: Mood and Affect: Mood normal. Behavior: Behavior normal. Diagnostic Testing ED Labs Ordered and Reviewed COMPLETE BLOOD COUNT AND DIFFERENTIAL - Abnormal; Notable for the following components: Result Value Ref Range Abs Lymph 0.98 (*) 1.00 - 4.00 k/uL Abs Lamar 0.94 (*) <0.87 k/uL All other components within normal limits COMPREHENSIVE METABOLIC PANEL PROTHROMBIN TIME TYPE + SCREEN Procedures ED Course / Clinical Impression ED Course as of 01/31/25 0319 Steve Sampson's Documentation ThuJan 31, 2025 0258 At 2150,10 mg of IV vitamin K were given at outside hospital Clinical Impressions as of 01/31/25 0319 Hematoma of rectus sheath, initial encounter CHRISTOPHER (acute kidney injury) Anticoagulated on Coumadin MDM / Disposition / Plan MDM 89-year-old female presenting to the emergency department for right roberson hematoma. Patient has a small extension to the lower part of some associated area of hematoma. Patient is on Coumadin and was given vitamin K at [facility] prior to transfer. On arrival here patient was evaluated by surgery who recommended medical admission for trending hemoglobins. If patient becomes unstable they recommend CTA, however given patient's current stable vital signs I do not think that is indicated at this time. Patient admitted to [facility] in hemodynamically stable condition. SIGNATURE: Steve Sampson MD Emergency Medicine, PGY-2 [facility] - STEVE SAMPSON 01/31/25 0327 STEVE RED 01/31/25 0532 CBC W AUTO DIFF BLD Collected: 01/31/2025 1:[address] [facility]: F Source: [facility] Order Comment: Specimen Type : BLOOD SPECIMEN Ordering Facility: [facility] Address: [place] [address] TYPE CODE TESTS RESULT OUT OF RANGE REFERENCE UNITS LAB 6690-2([facility]) WBC # Bld Auto 5.92 3.70-11.00 k/uL LAB 789-8([facility]) RBC # Bld Auto 4.00 3.90-5.20 m/ uL LAB 718-7([facility]) Hgb Bld-mCnc 12.5 11.5-15.5 g/dL LAB 4544-3([facility]) Hct VFr Bld Auto 40.0 36.0-46.0 % LAB 787-2([facility]) MCV RBC Auto 100.0 80.0-100.0 fL LAB 785-6([facility]) MCH RBC Qn Auto 31.3 26.0-34.0 p g LAB 786-4([facility]) MCHC RBC Auto-mCnc 31.3 30.5-36.0 g/dL LAB 65103-4([facility]) RDW RBC-Rto 14.3 11.5-15.0 % LAB 777-3([facility]) Platelet # Bld Auto 179 150-400 k/uL LAB 65506-9([facility]) PMV Bld Auto 9.5 9.0-12.7 fL LAB 770-8([facility]) Neutrophils/leuk NFr Bld Auto 66.0 % LAB 751-8([facility]) Neutrophils # Bld Auto 3.91 1.45-7.50 k/uL LAB 736-9([facility]) Lymphocytes/leuk NFr Bld Auto 16.6 % LAB 731-0([facility]) Lymphocytes # Bld Auto 0.98 Low 1.00-4.00 k/uL LAB 5905-5([facility]) Monocytes/leuk NFr Bld Auto 15.9 % LAB 742-7([facility]) Monocytes # Bld Auto 0.94 High <0.87 k/uL LAB 713-8([facility]) Eosinophil/leuk NFr Bld Auto 0.5 % LAB 711-2([facility]) Eosinophil # Bld Auto 0.03 <0.46 k/uL LAB 706-2([facility]) Basophils/leuk NFr Bld Auto 0.7 % LAB 704-7([facility]) Basophils # Bld Auto 0.04 <0.11 k/uL LAB 87296-8([facility]) Imm Granulocytes/mavis k NFr Bld Auto 0.3 % LAB 52595-2([facility]) Imm Granulocytes # Bld Auto <0.03 <0.10 k/uL LAB 10479-5([facility]) nRBC/100 WBC Bld-Rto 0.0 /100 WBC LAB 771-6([facility]) nRBC # Bld Auto <0.01 <0.01 k/u L LAB 36631-5([facility]) Differential method Bld Auto Performed By: #### [id number] # ### [facility] CLIA [id number] [address] OF [facility] PT PNL PPP Collected: 01/31/2025 1:57 AM Status: F Source: [facility] Order Comment: Specimen Type : BLOOD SPECIMEN Ordering Facility: [facility] Address: [address] [place] [address] TYPE CODE TESTS RESULT OUT OF RANGE REFERENCE UNITS LAB 5902-2([facility]) Prothrombin time 51.0 High 9.7-13.0 sec LAB 6301-6([facility]) INR PPP 5.3 High 0.9-1.3 Result Comment: Vitamin K An tagonist (VKA) Therapeutic Range: INR 2 to 3 (Target INR of 2.5) Note: For patients treated with VKA drugs, such as warfarin, the [employer] 2012 Guideline recommends a therapeutic INR range of 2 to 3 (target INR of 2.5). This recommendation includes high-risk patients with antiphospholipid syndrome with previous arterial or venous thromboembolism, current-generation mechanical or bioprosthetic aortic heart valve replacement. Note: Patients with mechanical aortic valve replacement and additional risk factors for thromboembolic events (atrial fibrillation, previous thromboembolism, LV dysfunction, hypercoagulable conditions) or an older generation mechanical AVR (i.e., ball in-Cage) or any mechanical MVR should have a INR therapeutic range of 2.5 to 3.5 (target INR of 3). Timothy GH, et al. Chest 2012, 141:7S-47S Madelaine RA, et al. [facility] 2017, 70: 252-289 Performed By: #### [id number] # ### [facility] CLIA [id number] [address] TYPE + SCREEN Collected: 01/31/2025 1:57 AM Status: F Source: [facility] Order Comment: Specimen Type : BLOOD SPECIMEN Ordering Facility: [facility] Address: [address] [place] [address] TYPE CODE TESTS RESULT OUT OF RANGE REFERENCE UNITS LAB [id number] ABO O LAB [id number] RH Positive LAB [id number] ANTIBODY SCREEN Negative LAB [id number] TYPE AND SCREEN EXPIRATION 02/03/2025 23:59 Performed By: #### TSCR #### [facility] CLIA [id number] [address] COMP METAB 2000 PNL SERPL Collected: 1:57 AM Status: F Source: [facility] Order Comment: Specimen Type : BLOOD SPECIMEN Ordering Facility: [facility] Address: [address] [place] [address] TYPE CODE TESTS RESULT OUT OF RANGE REFERENCE UNITS LAB 2885-2(LOINC) Prot SerPl-mCnc 5.6 Low 6.3-8.0 g/dL LAB 1751-7(LOINC) Albumin SerPl-mCnc 3.5 Low 3.9-4.9 g/dL LAB 33812-6(LOINC) Calcium SerPl-mCnc 8.7 8.5-10.2 mg/dL LAB 1975-2(LOINC) Bilirub SerPl-mCnc 1.6 High 0.2-1.3 mg/dL LAB 6768-6(LOINC) ALP SerPl-cCnc 102 34-123 U/L LAB 30457-1(LOINC) AST SerPl w P-5'-P-cCnc 48 High 13-35 U/L LAB 1743-4(LOINC) ALT SerPl w P-5'-P-cCnc 34 7-38 U/L LAB 2345-7(LOINC) Glucose SerPl-mCnc 102 High 74-99 mg/dL Result Comment: The [place] [employer] (ADA) provides guidance for cutoff values for fasting glucose and random glucose. The ADA defines fasting as no caloric intake for at least 8 hours. Fasting plasma glucose results between 100 to 125 mg/dL indicate increased risk for diabetes (prediabetes). Fasting plasma glucose results greater than or equal to 126 mg/dL meet the criteria for diagnosis of diabetes. In the absence of unequivocal hyperglycemia, results should be confirmed by repeat testing. In a patient with classic symptoms of hyperglycemia or hyperglycemic crisis, random plasma glucose results greater than or equal to 200 mg/dL meet the criteria for diagnosis of diabetes. Reference: Standards of Medical Care in Diabetes 2016, [place] [employer]. Diabetes Care. 2016.39(Suppl 1). LAB 3094-0(LOINC) BUN SerPl-mCnc 36 High 7-21 mg/ dL LAB 2160-0(LOINC) Creat SerPl-mCnc 1.49 High 0.58-0.96 mg/dL LAB 2951-2(LOINC) Sodium SerPl-sCnc 134 Low 136-144 mmol/L LAB 2823-3(LOINC) Potassium SerPl-sCnc 4.9 3.7-5.1 mmol/L LAB 2075-0(LOINC) Chloride SerPl-sCnc 102 98-107 mmol/L LAB 2028-9(LOINC) CO2 SerPl-sCnc 19 Low 22-30 mmo l/L LAB 1863-0(LOINC) Anion Gap4 SerPl-sCnc 13 8-15 mmol/L LAB 21833-2(LOINC) Creatinine + eGFR Pnl SerPlBld 34 Low >=60 mL/min/1. 73m??? Result Comment: Estimated Gl omerular Filtration Rate (eGFR) is calculated using the 2020 CKD-EPI creatinine equation. This equation utilizes serum creatinine, sex, and age as parameters. The creatinine assay has traceable calibration to isotope dilution-mass spectrometry. Refer to KDIGO guidelines for clinical interpretation. In patients with unstable renal function, e.g. those with acute kidney injury, the eGFR may not accurately reflect actual GFR. Performed By: #### [id number] # ### [facility] CLIA [id number] [address] [facility] [place] ED PROV NOTE Observed: 01/31/2025 1:38 AM Status: COMPLETED Source: [facility] HNO ID: [id number] Author: STEVE RED MD Service: Emergency Medicine Author Type: Physician Type: ED Provider Notes Filed: 01/31/2025 02:59 Note Text: Attending Note I personally saw and examined the patient. I reviewed the resident's note. I agree with the resident's assessment and plan unless otherwise noted. I was present for the significant portion of the procedure(s). Brief HPI: Ana Maria Avalos is a 89 year old female transferred from outside facility. Patient is on Coumadin, history of A-fib. States that her family was in town this week and she was eating more salads. Taking her Coumadin as prescribed. She denies abdominal trauma, falls or injuries. Transferred from [facility] for surgical consult. for the last day or so. Denies any exacerbating or relieving factors. No trauma or injury to the abdomen. She had a mechanical fall in her garden over 8 weeks ago. Given 10 mg Vit K IV @ 2150 at outside hospital. PAST MEDICAL HISTORY Diagnosis Date Ankle fracture 10/23/2014 trimalleolar fracture right ankle (11/02 suregery) Arthritis Atrial fibrillation (HCC) INR goal 2.5-3.5 Degeneration of intervertebral disc, site unspecified DDD; had sciatica in her 40's Disorder of bone and cartilage, unspecified osteopenia Diverticulosis of colon (without mention of hemorrhage) Dyslipidemia Essential hypertension, benign History of total left knee replacement Nontoxic multinodular goiter Pure hypercholesterolemia Unspecified hypothyroidism Physical Exam: - Gen: Well appearing, NAD. Seated semirecumbent in bed. No distress. Pleasant conversational. Vital signs within normal limits. A-fib on monitor - CV: irregular, rate mid 80s. Murmur present - Pulm: No respiratory distress, CTAB - abdomen: Soft, mild superficial tenderness to palpation mainly midline and slightly to right of umbilicus. No significant distention. No bruising or ecchymosis. - lower extremities: Chronic lower extremity edema/venous stasis skin changes - Neuro: No focal neurologic deficits, AANDOx3 MDM/Plan: In summary this is an 89-year-old female transferred to our facility for surgical consultation. Likely spontaneous rectal sheath abdominal hematoma. Supratherapeutic INR reported at outside ED. report of 10 x 3 cm abdominal wall hematoma/rectus sheath hematoma. Hemoglobin 12.5. Hemodynamically stable upon arrival here. Case reviewed with surgery, awaiting final recommendations. No acute operative intervention planned for now. 2:26 AM Surgery recommends reversal if she has not already received vitamin K. Surgically updated that she has already received vitamin K. Surgical recommendations for medical admit. Patient's pain is controlled. She is resting comfortably and hemodynamically stable. Repeat hemoglobin here 5.3. NEDA STEVE 01/31/25 0259 ED NOTE Observed: 01/31/2025 1:19 AM Status: COMPLETED Source: [facility] HNO ID: [id number] Author: AYDEN ROSALES RN Service: ? Author Type: Registered Nurse Type: ED Notes Filed: 01/31/2025 01:19 Note Text: Bed: 12-ED Expected date: Expected time: Means of arrival: Comments: [facility] transfer ALLERGIES DATE TYPE / CODE NAME / CODE REACTION SEVERITY SOURCE 01/31/2025 DRUG INGREDI/[id number] 003(SNOMED CT) VENOM-HONEY BEE UNKNOWN [facility] 06/20/2005 DRUG INGREDI/346475 003(SNOMED CT) CODEINE HIVES [facility] 06/20/2005 DRUG/[id number] (SNOMED CT) PROPOXYPHENE N-ACETAMINOPHEN INTOLERANCE [facility] ENCOUNTERS ADMIT/DISCHARGE ACCOUNT NUMBER ADMITTING ENCOUNTER CLASS LOCATION SOURCE 01/31/2025/ 5 [id number] ARNOLDO GONSALVES II [facility]patient [facility]counter [facility] 7109Bed: 01 [facility] PAYERS ENCOUNTER GUARANTOR PAYER SUBSCRIBER SOURCE 01/31/2025 Primary Insuranc e:MEDICARE A AND BPolicy Number: [id number] Date:[id number] Name:Cristal LLANOS: [id number] [place] [address] [facility] 01/31/2025 Secondary Insura nce:MMO MEDICARE SUPPLEMENTPolicy Number: [id number] Date:1511-31-26Lizn Name:Dwight LLANOS: [id number] [place] [address] [facility]
--- OUTSIDE RECORDS SUMMARY | 2025-01-31 01:19 | XMS RPT_ITS ---
Author Name Auto Generated Organization OHIP Care Team Providers Care Ecommerce Manager Name Role Phone AGNIESZKA FISH Primary Care Unavailable ARNOLDO GONSALVES II Admitting Unavailable LISA FISH Attending Unavailsantiago PERRY MD, ADELIA Consulting Unavailable PROBLEMS DATE TYPE CONDITION / CODE [facility] Active Hematoma of rect us sheath, initial encounter / S30.1XXA(ICD-10) LISA FISH [facility] 01/31/2025 Active CHRISTOPHER (acute kidne y injury) / N17.9(ICD-10) LISA FISH [facility] 01/31/2025 Active Anticoagulated o n Coumadin / Z79.01(ICD-10) [facility] 01/31/2025 Active Atrial fibrillat ion, persistent (HCC) / I48.19(ICD-10) AUNGLISA Laird [facility] 01/31/2025 Active Hyperkalemia / E87.5(ICD-10) [facility] PROCEDURES No Procedure Records Found RESULTS CASE MANAGEM Observed: 02/08/2025 6:47 PM Status: COMPLETED Source: [facility] HNO ID: [id number] Author: STEVE VALDERRAMA RN Service: Care Management Author Type: Registered Nurse Type: Care Mgt Progress Note Filed: 02/09/2025 07:39 Note Text: CARE MANAGEMENT DISCHARGE NOTE SERVICE DATE: February 09, 2025 SERVICE TIME: 737 Admission Date: 01/31/2025 LOS: 8 days Discharge Arrangement Discharge Arrangement: Home with Home Health Services Arranged Medical Services: Skilled Home Health Care Type: Home Health Agency, Alf, Physical Therapy, Occupational Therapy Provider Name: Dr. Fish Caregiver Assessment Caregiver is ready, willing and able to meet the patient's needs as recommended by the inter-professional team: Yes Name of Caregiver: [facility] Transportation Arrangements Transportation Arrangements: Car Handoff Communication: Additional Information: Discharge Information Row Name ED to Hosp-Admission (Discharged) from 01/31/2025 in [facility] Agency [facility] Start of Care 02/09/25 Patient discharged last evening to home with [facility]. Order and DC summary sent to agency. Patient arranged transport home with a friend. SIGNATURE: Steve Valderrama RN PATIENT NAME: Ana Maria Avalos DATE: February 09, 2025 TIME: 7:38 AM CNDS Observed: 02/08/2025 4:43 PM Status: COMPLETED Source: [facility] HNO ID: [id number] Author: LISA FISH MD Service: Hospital Medicine [...] MD Consulting: Susana Rodriguez MD Primary Service: [place] Consulting: Adelia Perry MD MY CONDITION AT DISCHARGE: Stable REASON I WAS IN THE HOSPITAL: Rectus sheath hematoma SUMMARY OF WHAT HAPPENED WHILE I WAS IN THE HOSPITAL: Patient is a very pleasant 89-year-old female with a history of chronic atrial fibrillation, tricuspid regurgitation and pulmonary hypertension and who was transferred from [facility] where she had presented with rectus sheath [...] pleasant 89-year-old female presents as transfer from [facility] for rectus sheath hematoma. She was initially [...] results. FOLLOW-UP APPOINTMENTS ALREADY SCHEDULED WITH A [facility] PROVIDER: No future appointments. Discharge Information Row Name ED to Hosp-Admission (Current) from 01/31/2025 in [facility] Agency [facility] Start of Care 02/09/25 ALLERGIES [...] OiL 1,000 (120-180) mg Cap Generic drug: Wjatm-2-GKV-EPA-Fish Oil FOLIC ACID PO GLUCOSAMINE CHONDROITIN MAXSTR 500-400 mg Cap Generic drug: Dhywycupfpk-Begsecpsj-Zcx C-Mn metoprolol tartrate (short acting) 100 mg [...] Your Medications These medications were sent to [facility] - [place] [address] - [address] - [phone] [place] [address] apixaban 5 mg tab(s) bacitracin 500 unit/gram [...] Value Calculated 02/08/2025 05:21 19% Hospital Unit [facility] READMISSION RISK Model -15% [facility] -11% Admissions (365d) 1 -10% Current Age [...] Observed: 02/08/2025 3:04 PM Status: [facility]PLETED [id number] Author: STEVE VALDERRAMA RN Service: Care Management Author Type: Registered Nurse Type: Care Mgt Progress Note Filed: 02/08/2025 15:05 Note Text: CARE MANAGEMENT PROGRESS NOTE SERVICE DATE: 02/08/2025 SERVICE TIME: 1504 LOS: 8 days Needs Prior to Discharge: To Be Determined [facility] can accept and do SOC tomorrow. Patient informed and agreeable. Home care order sent. SIGNATURE: Steve Valderraam RN PATIENT NAME: Ana Maria Avalos DATE: February 08, 2025 TIME: 3:04 PM ECHO Observed: 02/08/2025 12:45 PM Status: F Source: [facility] Echocardiography Report: Tra nsthoracic Echo [facility] Date of service: 02/08/2025 12:45:03 PM ASYLUM Ordering physician: HIMANSHU DECKER Exam indication: Initial [...] * * Final * * * CC [employer] [facility] : [id number] CASE MANAGEM Observed: 02/08/2025 10:40 AM Status: COMPLETED Source: [facility] HNO ID: [id number] Author: STEVE VALDERRAMA RN Service: Care Management Author Type: Registered Nurse Type: Care Mgt Progress Note Filed: 02/08/2025 10:42 Note Text: CARE MANAGEMENT PROGRESS NOTE SERVICE DATE: 02/08/2025 SERVICE TIME: 1040 LOS: 8 days Needs Prior to Discharge: To Be Determined Chart reviewed. Informed patient that [facility] can draw INR labs if she discharges on coumadin. Patient requested referral to [facility] after discussing home care with friend. Referral sent. Awaiting ECHO. CM will continue to follow. SIGNATURE: Steve Valderrama RN PATIENT NAME: Ana Maria Avalos DATE: February 08, 2025 TIME: 10:40 AM CBC W AUTO DIFF BLD Collected: 02/08/2025 8:[address] atus: F Source: [facility] Order Comment: Specimen Type : BLOOD SPECIMEN Ordering Facility: [facility] Address: [address] [place] [address] TYPE CODE TESTS RESULT OUT OF RANGE REFERENCE UNITS LAB 6690-2(LOINC) WBC # Bld Auto 4.43 3.70-11.00 k/uL LAB 789-8(LOINC) RBC # Bld Auto 3.56 Low 3.90-5.20 m/ uL LAB 718-7(LOINC) Hgb Bld-mCnc 11.2 Low 11.5-15.5 g/dL LAB 4544-3(LOINC) Hct VFr Bld Auto 36.0 36.0-46.0 % LAB 787-2([facility]) MCV RBC Auto 101.1 High 80.0-100.0 fL LAB 785-6([facility]) MCH RBC Qn Auto 31.5 26.0-34.0 p g LAB 786-4([facility]) MCHC RBC Auto-mCnc 31.1 30.5-36.0 g/dL LAB 97805-8([facility]) RDW RBC-Rto 16.2 High 11.5-15.0 % LAB 777-3([facility]) Platelet # Bld Auto 155 150-400 k/uL LAB 17800-2([facility]) PMV Bld Auto 9.1 9.0-12.7 fL LAB 770-8([facility]) Neutrophils/leuk NFr Bld Auto 72.1 % LAB 751-8([facility]) Neutrophils # Bld Auto 3.20 1.45-7.50 k/uL LAB 736-9([facility]) Lymphocytes/leuk NFr Bld Auto 9.3 % LAB 731-0([facility]) Lymphocytes # Bld Auto 0.41 Low 1.00-4.00 k/uL LAB 5905-5([facility]) Monocytes/leuk NFr Bld Auto 16.7 % LAB 742-7([facility]) Monocytes # Bld Auto 0.74 <0.87 k/uL LAB 713-8([facility]) Eosinophil/leuk NFr Bld Auto 0.5 % LAB 711-2([facility]) Eosinophil # Bld Auto <0.03 <0.46 k/uL LAB 706-2([facility]) Basophils/leuk NFr Bld Auto 0.9 % LAB 704-7([facility]) Basophils # Bld Auto 0.04 <0.11 k/uL LAB 32867-7([facility]) Imm Granulocytes/mavis k NFr Bld Auto 0.5 % LAB 53111-7([facility]) Imm Granulocytes # Bld Auto <0.03 <0.10 k/uL LAB 99710-2([facility]) nRBC/100 WBC Bld-Rto 0.0 /100 WBC LAB 771-6([facility]) nRBC # Bld Auto <0.01 <0.01 k/u L LAB 13550-0(LOINC) Differential method Bld Auto Performed By: #### 55805-7 # ### [facility] CLIA [id number] [address] [place] [id number] [place] BAS METAB 2000 PNL SERPL Collected: 04/2025 8:40 AM Status: F Source: [facility] Order Comment: Specimen Type : BLOOD SPECIMEN Ordering Facility: [facility] Address: [facility] [place] [address] TYPE CODE TESTS RESULT OUT OF RANGE REFERENCE UNITS LAB 2345-7(LOINC) Glucose SerPl-mCnc 81 74-99 mg/dL Result Comment: The [employer] Diabetes Association (ADA) provides guidance for cutoff [...] Standards of Medical Care in Diabetes 2016, [employer] Diabetes Association. Diabetes Care. 2016.39(Suppl 1). LAB 3094-0(LOINC) BUN SerPl-mCnc 21 7-21 mg/ dL LAB 2160-0(LOINC) Creat SerPl-mCnc 0.91 0.58-0.96 mg/dL LAB 2951-2(LOINC) Sodium SerPl-sCnc 129 Low 136-144 mmol/L LAB 2823-3(LOINC) Potassium SerPl-sCnc 4.5 3.7-5.1 mmol/L LAB 2075-0(LOINC) Chloride SerPl-sCnc 98 98-107 mmol/L LAB 2028-9(LOINC) CO2 SerPl-sCnc 18 Low 22-30 mmo l/L LAB 1863-0(LOINC) Anion Gap4 SerPl-sCnc 13 8-15 mmol/L LAB 22781-0(LOINC) Calcium SerPl-mCnc 8.0 Low 8.5-10.2 mg/dL LAB 31360-8(LOINC) Creatinine + eGFR Pnl SerPlBld 61 >=60 [...] accurately reflect actual GFR. Performed By: #### 39683-2 # ### [facility] CLIA [id number] [address] PROGRESS Observed: 02/07/2025 4:45 PM Status: COMPLETED Source: [facility] HNO ID: [id number] Author: HIMANSHU DECKER DO Service: Hospital Medicine Author Type: Physician Type: Progress Notes Filed: 02/07/2025 16:53 Note Text: DEPARTMENT OF HOSPITAL MEDICINE PROGRESS NOTE SERVICE DATE: 02/07/2025 SERVICE TIME: 4:45 PM Hospital Medicine/Primary Attending: Himanshu Decker DO NIGHT AND WEEKEND COVERAGE: After 7pm please page [phone] SUBJECTIVE: Patient seen examined at bedside. Reports [...] on file) This note was generated using Taazon voice dictation. All reasonable efforts were made to correct dictation errors. SIGNATURE: Himanshu Decker DO PATIENT NAME: Ana Maria Avalos DATE: February 07, 2025 TIME: 4:45 PM PAGER/CONTACT #: My Pager CASE MANAGEM Observed: 02/07/2025 3:50 PM Status: COMPLETED Source: [facility] HNO ID: [id number] Author: STEVE VALDERRAMA RN Service: Care Management Author Type: Registered Nurse Type: Care Mgt Progress Note Filed: 02/07/2025 15:51 Note Text: CARE MANAGEMENT PROGRESS NOTE SERVICE DATE: 02/07/2025 SERVICE TIME: 1550 LOS: 7 days Needs Prior to Discharge: To Be Determined, Home Care Order Chart reviewed. Informed patient that [facility] can accept. Patient is agreeable to use [facility]. Will need home care order placed prior to discharge. SIGNATURE: Steve Valderrama RN PATIENT NAME: Ana Maria Avalos DATE: February 07, 2025 TIME: 3:50 PM PT ED Observed: 02/07/2025 1:40 PM Status: COMPLETED Source: [facility] HNO ID: [id number] Author: DIONICIO SHERIDAN DTR Service: Nutrition Therapy Author Type: Auto Repair Technician Type: Patient Education Filed: 02/07/2025 13:40 Note [...] Observed: 02/07/2025 1:36 PM Status: COMPLETED Source: [facility] HNO ID: [id number] Author: DIONICIO SHERIDAN DTR Service: Nutrition Therapy Author Type: Auto Repair Technician Type: Nutrition Filed: 02/07/2025 13:40 Note Text: NUTRITION THERAPY SHEET FINISHER NOTE SERVICE DATE: 02/07/2025 SERVICE TIME: Start [...] 02/07/2025 4:[address] atus: F Source: [facility] Order Comment: Specimen Type : BLOOD SPECIMEN Ordering Facility: [facility] Address: [address] [place] [address] TYPE CODE TESTS RESULT OUT OF RANGE REFERENCE UNITS LAB 6690-2(LOINC) WBC # Bld Auto 4.83 3.70-11.00 k/uL LAB 789-8(LOINC) RBC # Bld Auto 3.38 Low 3.90-5.20 m/ uL LAB 718-7(LOINC) Hgb Bld-mCnc 10.8 Low 11.5-15.5 g/dL LAB 4544-3([facility]) Hct VFr Bld Auto 33.4 Low 36.0-46.0 % LAB 787-2([facility]) MCV RBC Auto 98.8 80.0-100.0 fL LAB 785-6([facility]) MCH RBC Qn Auto 32.0 26.0-34.0 p g LAB 786-4([facility]) MCHC RBC Auto-mCnc 32.3 30.5-36.0 g/dL LAB 64231-2([facility]) RDW RBC-Rto 16.0 High 11.5-15.0 % LAB 777-3([facility]) Platelet # Bld Auto 158 150-400 k/uL LAB 79072-6([facility]) PMV Bld Auto 9.7 9.0-12.7 fL LAB 770-8([facility]) Neutrophils/leuk NFr Bld Auto 70.9 % LAB 751-8([facility]) Neutrophils # Bld Auto 3.42 1.45-7.50 k/uL LAB 736-9([facility]) Lymphocytes/leuk NFr Bld Auto 10.8 % LAB 731-0([facility]) Lymphocytes # Bld Auto 0.52 Low 1.00-4.00 k/uL LAB 5905-5([facility]) Monocytes/leuk NFr Bld Auto 15.7 % LAB 742-7([facility]) Monocytes # Bld Auto 0.76 <0.87 k/uL LAB 713-8([facility]) Eosinophil/leuk NFr Bld Auto 1.0 % LAB 711-2([facility]) Eosinophil # Bld Auto 0.05 <0.46 k/uL LAB 706-2([facility]) Basophils/leuk NFr Bld Auto 0.6 % LAB 704-7([facility]) Basophils # Bld Auto 0.03 <0.11 k/uL LAB 66223-3([facility]) Imm Granulocytes/mavis k NFr Bld Auto 1.0 % LAB 24407-4([facility]) Imm Granulocytes # Bld Auto 0.05 <0.10 k/uL LAB 63622-4([facility]) nRBC/100 WBC Bld-Rto 0.0 /100 WBC LAB 771-6(LOINC) nRBC # Bld Auto <0.01 <0.01 k/u L LAB 46885-6(INC) Differential method Bld Auto Performed By: #### 33403-9 # ### [facility] CLIA [id number] [address] PT PNL PPP Collected: 02/07/2025 4:57 AM Status: F Source: [facility] Order Comment: Specimen Type : BLOOD SPECIMEN Ordering Facility: [facility] Address: [address] [place] [address] TYPE CODE TESTS RESULT OUT OF RANGE REFERENCE UNITS LAB 5902-2([facility]) Prothrombin time 12.3 9.7-13.0 sec LAB 6301-6([facility]) INR PPP 1.1 0.9-1.3 Result Comment: Vitamin K An tagonist (VKA) Therapeutic Range: INR 2 to 3 (Target INR of 2.5) Note: For patients treated with VKA drugs, such as warfarin, the [employer] 2012 Guideline recommends [...] JACC 2017, 70: 252-289 Performed By: #### 24607-4 # ### [facility] CLIA [id number] [address] PROGRESS Observed: 02/07/2025 4:45 AM Status: COMPLETED Source: [facility] HNO ID: [id number] Author: MARVIN CASTILLO APRN.RUNNING RIGGER Service: Hospital Medicine Author Type: Nurse Practitioner [...] redness or signs of infection. WILIAN Boswell ([facility] [place] [facility], pager # [phone]) PROGRESS Observed: 02/06/2025 5:26 PM Status: COMPLETED [facility] [id number] Author: HIMANSHU DECKER DO Service: Hospital Medicine Author Type: Physician Type: Progress Notes Filed: 02/06/2025 17:38 Note Text: DEPARTMENT OF HOSPITAL MEDICINE PROGRESS NOTE SERVICE DATE: 02/06/2025 SERVICE TIME: 5:26 PM Hospital Medicine/Primary Attending: Himanshu Decker DO NIGHT AND WEEKEND COVERAGE: After 7pm please page [phone] SUBJECTIVE: Patient seen examined at bedside. No [...] on file) This note was generated using [employer] voice dictation. All reasonable efforts were made to correct dictation errors. SIGNATURE: Himanshu Decker DO PATIENT NAME: Ana Maria Avalos DATE: February 06, 2025 TIME: 5:26 PM PAGER/CONTACT #: My Pager CASE MANAGEM Observed: 02/06/2025 12:46 PM Status: COMPLETED Source: [facility] HNO ID: [id number] Author: STEVE VALDERRAMA RN Service: Care Management [...] No preferred agency named. Referral sent to [facility] to see if they can accept and service will continue to follow. SIGNATURE: Steve Valderrama RN PATIENT NAME: Ana Maria Avalos DATE: February 06, 2025 TIME: 12:46 PM THERAPY NT Observed: 02/06/2025 10:39 AM Status: COMPLETED Source: [facility] HNO ID: [id number] Author: ELLYN SHOOK, OTR/L Service: Occupational Therapy Author Type: Occupational Therapist Type: Therapy (PT/OT/Speech/Resp) Filed: 02/06/2025 10:46 Note Text: Occupational Therapy Evaluation Summary SERVICE DATE: 02/06/2025 SERVICE TIME: 0916 to 1005 ROOM: [id number] OT 6 Clicks Score: 23 DISCHARGE RECOMMENDATIONS [...] Bed/Chair Alarm CURRENT HOSPITAL COURSE Presented to [facility] with abd pain--found to have abd [...] Unsteadiness on feet TREATMENT INTERVENTIONS Evaluation, Self Detention Management (74839) Timed Code Treatment (minutes): 24 Skilled Treatment Time (minutes): 49 $ Evaluation - Low (28360) Billed Units: 1 unit Self Detention Management (83990) Treatment Minutes: 24 $ Self Detention Management (71262) Billed Units: 2 units TRAINING AND EDUCATION PROVIDED Energy Conservation, Transfer - Sit to Stand, Transfer - Toilet/Commode, Toileting , Standing Balance to Improve [place] with ADLs/Self-Care, Sitting Balance to Improve [place] with ADLs/Self-Care, Role of Occupational Therapy, Safety/Judgment, [...] Observed: 02/06/2025 10:07 AM Status: F Source: [facility] Ventricular Rate : 89 BPM QRS Duration : 88 ms Q-T Interval : 386 ms QTC Calculation(Bazett) : 469 ms Calculated R [place] : 96 degrees Calculated T [place] : 188 degrees ATRIAL FIBRILLATION RIGHTWARD AXIS ST & T WAVE ABNORMALITY, CONSIDER INFEROLATERAL ISCHEMIA ABNORMAL ECG WHEN COMPARED WITH ECG OF 30-Aug-2021 12:25, SIGNIFICANT CHANGES HAVE OCCURRED Confirmed by MD CASSIDY VINAY ([id number]) on 02/06/2025 5:38:40 PM NAME : ANA MARIA AVALOS PID : [id number] : 1935 Gender : Female Race : ORD : [id number] Procedure Date : Feb 06 2025 10:07:19 Edit Date : Feb 06 2025 17:38:42 Diagnosis: ATRIAL FIBRILLATION RIGHTWARD AXIS ST & T WAVE ABNORMALITY, CONSIDER INFEROLATERAL ISCHEMIA ABNORMAL ECG WHEN COMPARED WITH ECG OF 30-Aug-2021 12:25, SIGNIFICANT CHANGES HAVE OCCURRED Confirmed by MD CASSIDY VINAY ([id number]) on 02/06/2025 5:38:40 PM Test Reason : Arrhythmia Location : 200 : [facility] 710 Overread By : MD CASSIDY VINAY Edited By : MD CASSIDY VINAY Referred By : , Acquired by : JACK ROWE CONSULT Observed: 02/06/2025 9:54 AM Status: COMPLETED Source: [facility] HNO ID: [id number] Author: KYLIE VILLATORO MD Service: Clinical Cardiology [...] pressure 15 mmHg Ms. Avalos presented to [facility] for abdominal discomfort. She was found to [...] BREAST PERC VACUUM/ROTN 12/27/2009 CARDIOVERSION 03/03/2011 In [place] OPEN TX FEMORAL SUPRACONDYLAR FRACTURE W/XTN Left 08/29/2021 PAST SURGICAL HISTORY OF right ankle ORIF for triamalleolar fracture S $ KNEE TOTAL ARTHR PRASHANTH Left 05/07/2015 [facility] [place]. LTK replacement arthroplasty SIGMOIDOSCOPY FLX DX [...] Yes No Sig: Take one(1) tablet daily. Momdx-9-SPK-EPA-Fish Oil (FISH OIL) 1,000 mg (120 mg-180 [...] 02/06/2025 6:[address] atus: F Source: [facility] Order Comment: Specimen Type : BLOOD SPECIMEN Ordering Facility: [facility] Address: [address] [place] [address] TYPE CODE TESTS RESULT OUT OF RANGE [...] MCHC RBC Auto-mCnc 32.3 30.5-36.0 g/dL LAB 72950-2(LOINC) RDW RBC-Rto 15.8 High 11.5-15.0 % LAB 777-3(LOINC) Platelet # Bld Auto 141 Low 150-400 k/uL LAB 75621-8(LOINC) PMV Bld Auto 8.9 Low 9.0-12.7 fL [...] # Bld Auto 0.03 <0.11 k/uL LAB 19613-6(LOINC) Imm Granulocytes/mavis k NFr Bld Auto 0.6 % LAB 23414-6(LOINC) Imm Granulocytes # Bld Auto 0.03 <0.10 k/uL LAB 72755-7(LOINC) nRBC/100 WBC Bld-Rto 0.0 /100 WBC LAB 771-6(INC) nRBC # Bld Auto <0.01 <0.01 k/u L LAB 85642-4(INC) Differential method Bld Auto Performed By: #### 26308-3 # ### [facility] CLIA [id number] [address] PT PNL PPP Collected: 02/06/2025 4:14 AM Status: F Source: [facility] Order Comment: Specimen Type : BLOOD SPECIMEN Ordering Facility: [facility] Address: [address] [place] [address] TYPE CODE TESTS RESULT OUT OF RANGE REFERENCE UNITS LAB 5902-2(INC) Prothrombin time 13.5 High 9.7-13.0 sec LAB 6301-6(LOINC) INR PPP 1.3 0.9-1.3 Result Comment: Vitamin K An tagonist (VKA) Therapeutic Range: INR 2 to 3 (Target INR of 2.5) Note: For patients treated with VKA drugs, such as warfarin, the [employer] 2012 Guideline recommends [...] Chest 2012, 141:7S-47S Madelaine RA, et al. [facility] 2017, 70: 252-289 Performed By: #### 80340-5 # ### [facility] CLIA [id number] [address] CBC PNL BLD AUTO Collected: 02/05/2025 3:08 PM Statu s: F Source: [facility] Order Comment: Specimen Type : BLOOD SPECIMEN Ordering Facility: [facility] Address: [address] [place] [address] TYPE CODE TESTS RESULT OUT OF RANGE [...] MCHC RBC Auto-mCnc 31.2 30.5-36.0 g/dL LAB 16556-8(LOINC) RDW RBC-Rto 15.7 High 11.5-15.0 % LAB 777-3(LOINC) Platelet # Bld Auto 168 150-400 k/uL LAB 82108-2(LOINC) PMV Bld Auto 9.2 9.0-12.7 fL LAB 771-6([facility]) nRBC # Bld Auto <0.01 <0.01 k/uL Performed By: #### 13372-2 # ### [facility] CLIA [id number] 1 [place] [address] [place] [facility] BAS METAB 2000 PNL SERPL Collected: 01/2025 3:08 PM Status: F Source: [facility] Order Comment: Specimen Type : BLOOD SPECIMEN Ordering Facility: [facility] Address: [address] [place] [address] TYPE CODE TESTS RESULT OUT OF RANGE REFERENCE UNITS LAB 2345-7([facility]) Glucose SerPl-mCnc 122 High 74-99 mg/dL Result Comment: The [employer] Diabetes Association (ADA) provides guidance for cutoff [...] Standards of Medical Care in Diabetes 2016, [employer]. Diabetes Care. 2016.39(Suppl 1). LAB 3094-0(LOINC) BUN SerPl-mCnc 25 High 7-21 mg/ dL LAB 2160-0(LOINC) Creat SerPl-mCnc 1.03 High 0.58-0.96 mg/dL LAB 2951-2(LOINC) Sodium SerPl-sCnc 134 Low 136-144 mmol/L LAB 2823-3(LOINC) Potassium SerPl-sCnc 4.9 3.7-5.1 mmol/L LAB 2075-0(LOINC) Chloride SerPl-sCnc 100 98-107 mmol/L LAB 2028-9(LOINC) CO2 SerPl-sCnc 24 22-30 mmo l/L LAB 1863-0(LOINC) Anion Gap4 SerPl-sCnc 10 8-15 mmol/L LAB 38581-8(LOINC) Calcium SerPl-mCnc 8.7 8.5-10.2 mg/dL LAB 06999-2(INC) Creatinine + eGFR Pnl SerPlBld 52 Low [...] accurately reflect actual GFR. Performed By: #### [id number] # ### [facility] CLIA [id number] [address] PROGRESS Observed: 02/05/2025 2:08 PM Status: COMPLETED Source: [facility] HNO ID: [id number] Author: HIMANSHU DECKER DO Service: Hospital Medicine Author Type: Physician Type: Progress Notes Filed: 02/05/2025 14:16 Note Text: DEPARTMENT OF HOSPITAL MEDICINE PROGRESS NOTE SERVICE DATE: 02/05/2025 SERVICE TIME: 2:08 PM Hospital Medicine/Primary Attending: Himanshu Decker DO NIGHT AND WEEKEND COVERAGE: After 7pm please page [phone] SUBJECTIVE: Patient seen and examined at bedside. [...] NM +BS, bruising over right flank, smaller tunica-biloxi of demarcated bruising over left flank, noticed [...] (POA: Yes) This note was generated using [employer] voice dictation. All reasonable efforts were made to correct dictation errors. SIGNATURE: Himanshu Decker DO PATIENT NAME: Ana Maria Avalos DATE: February 05, 2025 TIME: 2:08 PM PAGER/CONTACT #: My Pager PT PNL PPP Collected: 02/05/2025 9:36 AM Status: F [facility] [facility] Order Comment: Specimen Type : BLOOD SPECIMEN Ordering Facility: [facility] Address: [address] [place] [address] TYPE CODE TESTS RESULT OUT OF RANGE REFERENCE UNITS LAB 5902-2(LOINC) Prothrombin time 14.2 High 9.7-13.0 sec LAB 6301-6(LOINC) INR PPP 1.3 0.9-1.3 Result Comment: Vitamin K An tagonist (VKA) Therapeutic Range: INR 2 to 3 (Target INR of 2.5) Note: For patients treated with VKA drugs, such as warfarin, the [employer] 2012 Guideline recommends [...] JACC 2017, 70: 252-289 Performed By: #### 69045-9 # ### [facility] CLIA [id number] [address] OF [facility] PROGRESS Observed: 02/04/2025 3:13 PM Status: COMPLETED Source: [facility] HNO ID: [id number] Author: HIMANSHU DECKER DO Service: Hospital Medicine Author Type: Physician Type: Progress Notes Filed: 02/04/2025 15:18 Note Text: DEPARTMENT OF HOSPITAL MEDICINE PROGRESS NOTE SERVICE DATE: 02/04/2025 SERVICE TIME: 3:13 PM Hospital Medicine/Primary Attending: Himanshu Decker DO NIGHT AND WEEKEND COVERAGE: After 7pm please page [phone] SUBJECTIVE: Patient seen examined at bedside, no [...] NM +BS, bruising over right flank, smaller tunica-biloxi of demarcated bruising over left flank Neuro- [...] (POA: Yes) This note was generated using [employer] voice dictation. All reasonable efforts were made to correct dictation errors. SIGNATURE: Himanshu Decker DO PATIENT NAME: Ana Maria Avalos DATE: February 04, 2025 TIME: 3:13 PM PAGER/CONTACT #: My Pager CBC W AUTO DIFF BLD Collected: 02/04/2025 4:[address] atus: F Source: [facility] Order Comment: Specimen Type : BLOOD SPECIMEN Ordering Facility: [facility] Address: [address] [place] [address] TYPE CODE TESTS RESULT OUT OF RANGE REFERENCE UNITS LAB 6690-2(LOINC) WBC # Bld Auto 6.48 3.70-11.00 k/uL LAB 789-8(LOINC) RBC # Bld Auto 3.62 Low 3.90-5.20 m/ uL LAB 718-7(LOINC) Hgb Bld-mCnc 11.4 Low 11.5-15.5 g/dL LAB 4544-3(LOINC) Hct VFr Bld Auto 36.4 36.0-46.0 % LAB 787-2([facility]) MCV RBC Auto 100.6 High 80.0-100.0 fL LAB 785-6([facility]) MCH RBC Qn Auto 31.5 26.0-34.0 p g LAB 786-4([facility]) MCHC RBC Auto-mCnc 31.3 30.5-36.0 g/dL LAB 57808-1([facility]) RDW RBC-Rto 14.9 11.5-15.0 % LAB 777-3([facility]) Platelet # Bld Auto 152 150-400 k/uL LAB 81326-9([facility]) PMV Bld Auto 9.5 9.0-12.7 fL LAB 770-8([facility]) Neutrophils/leuk NFr Bld Auto 60.2 % LAB 751-8([facility]) Neutrophils # Bld Auto 3.91 1.45-7.50 k/uL LAB 736-9([facility]) Lymphocytes/leuk NFr Bld Auto 18.7 % LAB 731-0([facility]) Lymphocytes # Bld Auto 1.21 1.00-4.00 k/uL LAB 5905-5([facility]) Monocytes/leuk NFr Bld Auto 18.1 % LAB 742-7([facility]) Monocytes # Bld Auto 1.17 High <0.87 k/uL LAB 713-8([facility]) Eosinophil/leuk NFr Bld Auto 1.9 % LAB 711-2([facility]) Eosinophil # Bld Auto 0.12 <0.46 k/uL LAB 706-2([facility]) Basophils/leuk NFr Bld Auto 0.6 % LAB 704-7([facility]) Basophils # Bld Auto 0.04 <0.11 k/uL LAB 31676-6([facility]) Imm Granulocytes/mavis k NFr Bld Auto 0.5 % LAB 89782-5([facility]) Imm Granulocytes # Bld Auto 0.03 <0.10 k/uL LAB 48523-2([facility]) nRBC/100 WBC Bld-Rto 0.0 /100 WBC LAB 771-6([facility]) nRBC # Bld Auto <0.01 <0.01 k/u L LAB 09590-2([facility]) Differential method Bld Auto Performed By: #### 47861-4 # ### [facility] CLIA [id number] 1 [place] [address] [place] BAS METAB 2000 PNL SERPL Collected: 11/2024 11:24 AM Status: F Source: [facility] Order Comment: Specimen Type : BLOOD SPECIMEN Ordering Facility: [facility] Address: [address] [place] [address] [place] [address] TYPE CODE TESTS RESULT OUT OF RANGE REFERENCE UNITS LAB 2345-7(LOINC) Glucose SerPl-mCnc 122 High 74-99 mg/dL Result Comment: The [employer] (ADA) provides guidance for cutoff [...] Standards of Medical Care in Diabetes 2016, [employer]. Diabetes Care. 2016.39(Suppl 1). LAB 3094-0(LOINC) BUN SerPl-mCnc 34 High 7-21 mg/ dL LAB 2160-0(LOINC) Creat SerPl-mCnc 1.26 High 0.58-0.96 mg/dL LAB 2951-2(LOINC) Sodium SerPl-sCnc 131 Low 136-144 mmol/L LAB 2823-3(LOINC) Potassium SerPl-sCnc 4.8 3.7-5.1 mmol/L LAB 2075-0(LOINC) Chloride SerPl-sCnc 101 98-107 mmol/L LAB 2028-9(LOINC) CO2 SerPl-sCnc 21 Low 22-30 mmo l/L LAB 1863-0(LOINC) Anion Gap4 SerPl-sCnc 9 8-15 mmol/L LAB 77727-5(LOINC) Calcium SerPl-mCnc 8.5 8.5-10.2 mg/dL LAB 41867-9(LOINC) Creatinine + eGFR Pnl SerPlBld 41 Low [...] accurately reflect actual GFR. Performed By: #### 07469-5 # ### [facility] CLIA [id number] [address] PROGRESS Observed: 02/03/2025 8:36 AM Status: COMPLETED Source: [facility] HNO ID: [id number] Author: HIMANSHU DECKER DO Service: Hospital Medicine Author Type: Physician Type: Progress Notes Filed: 02/03/2025 08:39 Note Text: DEPARTMENT OF HOSPITAL MEDICINE PROGRESS NOTE SERVICE DATE: 02/03/2025 SERVICE TIME: 8:36 AM Hospital Medicine/Primary Attending: Himanshu Decker DO NIGHT AND WEEKEND COVERAGE: After 7pm please page [phone] SUBJECTIVE: Patient seen examined at bedside. No [...] (POA: Yes) This note was generated using [employer] voice dictation. All reasonable efforts were made to correct dictation errors. SIGNATURE: Himanshu Decker DO PATIENT NAME: Ana Maria Avalos DATE: February 03, 2025 TIME: 8:36 AM PAGER/CONTACT #: My Pager CBC W AUTO DIFF BLD Collected: 02/03/2025 3:[address] atus: F Source: [facility] Order Comment: Specimen Type : BLOOD SPECIMEN Ordering Facility: [facility] Address: [address] [place] [id number] TYPE CODE TESTS RESULT OUT OF RANGE REFERENCE UNITS LAB 6690-2([facility]) WBC # Bld Auto 7.06 3.70-11.00 k/uL LAB 789-8([facility]) RBC # Bld Auto 3.57 Low 3.90-5.20 m/ uL LAB 718-7([facility]) Hgb Bld-mCnc 11.2 Low 11.5-15.5 g/dL LAB 4544-3([facility]) Hct VFr Bld Auto 36.0 36.0-46.0 % LAB 787-2([facility]) MCV RBC Auto 100.8 High 80.0-100.0 fL LAB 785-6([facility]) MCH RBC Qn Auto 31.4 26.0-34.0 p g LAB 786-4([facility]) MCHC RBC Auto-mCnc 31.1 30.5-36.0 g/dL LAB 10522-7([facility]) RDW RBC-Rto 14.6 11.5-15.0 % LAB 777-3([facility]) Platelet # Bld Auto 140 Low 150-400 k/uL LAB 25523-9([facility]) PMV Bld Auto 9.7 9.0-12.7 fL LAB 770-8([facility]) Neutrophils/leuk NFr Bld Auto 58.7 % LAB 751-8([facility]) Neutrophils # Bld Auto 4.14 1.45-7.50 k/uL LAB 736-9([facility]) Lymphocytes/leuk NFr Bld Auto 17.7 % LAB 731-0([facility]) Lymphocytes # Bld Auto 1.25 1.00-4.00 k/uL LAB 5905-5([facility]) Monocytes/leuk NFr Bld Auto 21.2 % LAB 742-7([facility]) Monocytes # Bld Auto 1.50 High <0.87 k/uL LAB 713-8([facility]) Eosinophil/leuk NFr Bld Auto 1.4 % LAB 711-2([facility]) Eosinophil # Bld Auto 0.10 <0.46 k/uL LAB 706-2([facility]) Basophils/leuk NFr Bld Auto 0.7 % LAB 704-7(LOINC) Basophils # Bld Auto 0.05 <0.11 k/uL LAB 48402-0(LOINC) Imm Granulocytes/mavis k NFr Bld Auto 0.3 % LAB 43191-5([facility]) Imm Granulocytes # Bld Auto <0.03 <0.10 k/uL LAB 29068-1(LOINC) nRBC/100 WBC Bld-Rto 0.3 /100 WBC LAB 771-6([facility]) nRBC # Bld Auto 0.02 High <0.01 k/u L LAB 59079-3([facility]) Differential method Bld Auto Performed By: #### 22732-6 # ### [facility] CLIA [id number] [address] OF [facility] BAS METAB 2000 PNL SERPL Collected: 11/2024 3:30 AM Status: F Source: [facility] Order Comment: Specimen Type : BLOOD SPECIMEN Ordering Facility: [facility] Address: [address] [place] [address] TYPE CODE TESTS RESULT OUT OF RANGE REFERENCE UNITS LAB 2345-7([facility]) Glucose SerPl-mCnc 104 High 74-99 mg/dL Result Comment: The [employer] Diabetes Association (ADA) provides guidance for cutoff [...] Standards of Medical Care in Diabetes 2016, [employer]. Diabetes Care. 2016.39(Suppl 1). LAB 3094-0(LOINC) BUN SerPl-mCnc 36 High 7-21 mg/ dL LAB 2160-0(LOINC) Creat SerPl-mCnc 1.26 High 0.58-0.96 mg/dL LAB 2951-2(LOINC) Sodium SerPl-sCnc 132 Low 136-144 mmol/L LAB 2823-3(LOINC) Potassium SerPl-sCnc 5.3 High 3.7-5.1 mmol/L LAB 2075-0(LOINC) Chloride SerPl-sCnc 101 98-107 mmol/L LAB 8-9(LOINC) CO2 SerPl-sCnc 22 22-30 mmo l/L LAB 1863-0(LOINC) Anion Gap4 SerPl-sCnc 9 8-15 mmol/L LAB 23907-2(LOINC) Calcium SerPl-mCnc 9.0 8.5-10.2 mg/dL LAB 23129-8(LOINC) Creatinine + eGFR Pnl SerPlBld 41 Low [...] accurately reflect actual GFR. Performed By: #### 89478-3 # ### [facility] CLIA [id number] [address] THERAPY NT Observed: 02/02/2025 4:49 PM Status: COMPLETED Source: [facility] HNO ID: [id number] Author: CHRISTEN QUICK PT Service: Physical Therapy Author Type: Physical Therapist Type: Therapy (PT/OT/Speech/Resp) Filed: 02/02/2025 16:50 Note Text: Physical Therapy Evaluation Summary SERVICE DATE: 02/02/2025 SERVICE TIME: 1556 to 1625 ROOM: [place] [address] PT 6 Clicks Score: 18 DISCHARGE RECOMMENDATIONS Home Anticipated Discharge Needs: Physical Assist at Home Physical Assist at Home for: Shopping, Transportation ASSESSMENT Response to Therapy Interventions: Good Participation in Activities, Pain pt with abdominal pain but able to mobilize with min A PRECAUTIONS Bed/Chair Alarm CURRENT HOSPITAL COURSE presented to [facility] with abd pain--found to have abd wall hematoma Relevant Past Medical History: osteoporosis, afib, HTN, CHF HOME LIVING Patient Lives With: Self/Alone Assistance Available: None (may be moving to [place] and live with dtr and son in [...] on feet TREATMENT INTERVENTIONS Evaluation, Therapeutic Activity (54843) Timed Code Treatment (minutes): 8 Skilled Treatment Time (minutes): 23 $ Evaluation-Moderate (03208) Billed Units: 1 unit Therapeutic Activity (60707) Treatment Minutes: 8 $ Therapeutic Activity (66547) Billed Units: 1 unit Cues for safe [...] Observed: 02/02/2025 2:45 PM Status: COMPLETED Source: [facility] HNO ID: [id number] Author: PILAR MAY MD Service: General Surgery [...] Observed: 02/02/2025 1:11 PM Status: COMPLETED Source: [facility] HNO ID: [id number] Author: HIMANSHU DECKER DO Service: Hospital Medicine Author Type: Physician Type: Progress Notes Filed: 02/02/2025 13:15 Note Text: DEPARTMENT OF HOSPITAL MEDICINE PROGRESS NOTE SERVICE DATE: 02/02/2025 SERVICE TIME: 1:11 PM Hospital Medicine/Primary Attending: Himanshu Decker DO NIGHT AND WEEKEND COVERAGE: After 7pm please page [phone] SUBJECTIVE: Patient seen examined at bedside, no [...] (POA: Yes) This note was generated using [employer] voice dictation. All reasonable efforts were made to correct dictation errors. SIGNATURE: Himanshu Decker DO PATIENT NAME: Ana Maria Avalos DATE: February 02, 2025 TIME: 1:11 PM PAGER/CONTACT #: My Pager CBC W AUTO DIFF BLD Collected: 02/02/2025 3:[address] atus: F Source: [facility] Order Comment: Specimen Type : BLOOD SPECIMEN Ordering Facility: [facility] Address: [address] [place] [address] TYPE CODE TESTS RESULT OUT OF RANGE REFERENCE UNITS LAB 6690-2(LOINC) WBC # Bld Auto 6.10 3.70-11.00 k/uL LAB 789-8([facility]) RBC # Bld Auto 3.16 Low 3.90-5.20 m/ uL LAB 718-7([facility]) Hgb Bld-mCnc 10.2 Low 11.5-15.5 g/dL LAB 4544-3([facility]) Hct VFr Bld Auto 30.9 Low 36.0-46.0 % LAB 787-2([facility]) MCV RBC Auto 97.8 80.0-100.0 fL LAB 785-6([facility]) MCH RBC Qn Auto 32.3 26.0-34.0 p g LAB 786-4([facility]) MCHC RBC Auto-mCnc 33.0 30.5-36.0 g/dL LAB 86910-9([facility]) RDW RBC-Rto 14.6 11.5-15.0 % LAB 777-3([facility]) Platelet # Bld Auto 114 Low 150-400 k/uL LAB 13573-7([facility]) PMV Bld Auto 9.7 9.0-12.7 fL LAB 770-8([facility]) Neutrophils/leuk NFr Bld Auto 60.0 % LAB 751-8([facility]) Neutrophils # Bld Auto 3.66 1.45-7.50 k/uL LAB 736-9([facility]) Lymphocytes/leuk NFr Bld Auto 12.1 % LAB 731-0([facility]) Lymphocytes # Bld Auto 0.74 Low 1.00-4.00 k/uL LAB 5905-5([facility]) Monocytes/leuk NFr Bld Auto 23.9 % LAB 742-7([facility]) Monocytes # Bld Auto 1.46 High <0.87 k/uL LAB 713-8([facility]) Eosinophil/leuk NFr Bld Auto 3.0 % LAB 711-2([facility]) Eosinophil # Bld Auto 0.18 <0.46 k/uL LAB 706-2([facility]) Basophils/leuk NFr Bld Auto 0.5 % LAB 704-7([facility]) Basophils # Bld Auto 0.03 <0.11 k/uL LAB 72764-2([facility]) Imm Granulocytes/mavis k NFr Bld Auto 0.5 % LAB 91523-8(LOINC) Imm Granulocytes # Bld Auto 0.03 <0.10 k/uL LAB 93409-4(LOINC) nRBC/100 WBC Bld-Rto 0.0 /100 WBC LAB 771-6(LOINC) nRBC # Bld Auto <0.01 <0.01 k/u L LAB 53756-2(LOINC) Differential method Bld Auto Performed By: #### 68293-7 # ### [facility] CLIA [id number] [address] PT PNL PPP Collected: 02/02/2025 3:10 AM Status: F Source: [facility] Order Comment: Specimen Type : BLOOD SPECIMEN Ordering Facility: [facility] Address: [address] [place] [address] TYPE CODE TESTS RESULT OUT OF RANGE REFERENCE UNITS LAB 5902-2(LOINC) Prothrombin time 18.4 High 9.7-13.0 sec LAB 6301-6(LOINC) INR PPP 1.8 High 0.9-1.3 Result Comment: Vitamin K An tagonist (VKA) Therapeutic Range: INR 2 to 3 (Target INR of 2.5) Note: For patients treated with VKA drugs, such as warfarin, the [employer] 2012 Guideline recommends [...] Chest 2012, 141:7S-47S Madelaine RA et al. [facility] 2017, 70: 252-289 Performed By: #### 80465-5 # ### [facility] CLIA [id number] [address] [place] BAS METAB 2000 PNL SERPL Collected: 10/2024 3:10 AM Status: F Source: [facility] Order Comment: Specimen Type : BLOOD SPECIMEN Ordering Facility: [facility] Address: [place] [address] TYPE CODE TESTS RESULT OUT OF RANGE REFERENCE UNITS LAB 2345-7(LOINC) Glucose SerPl-mCnc 106 High 74-99 mg/dL Result Comment: The [employer] (ADA) provides guidance for cutoff [...] Standards of Medical Care in Diabetes 2016, [employer]. Diabetes Care. 2016.39(Suppl 1). LAB 3094-0(LOINC) BUN SerPl-mCnc 36 High 7-21 mg/ dL LAB 2160-0(LOINC) Creat SerPl-mCnc 1.29 High 0.58-0.96 mg/dL LAB 2951-2(LOINC) Sodium SerPl-sCnc 131 Low 136-144 mmol/L LAB 2823-3(LOINC) Potassium SerPl-sCnc 5.1 3.7-5.1 mmol/L LAB 2075-0(LOINC) Chloride SerPl-sCnc 102 98-107 mmol/L LAB 2027-9(LOINC) CO2 SerPl-sCnc 20 Low 22-30 mmo l/L LAB 1863-0(LOINC) Anion Gap4 SerPl-sCnc 9 8-15 mmol/L LAB 24727-9(LOINC) Calcium SerPl-mCnc 8.0 Low 8.5-10.2 mg/dL LAB 77631-1(LOINC) Creatinine + eGFR Pnl SerPlBld 40 Low [...] accurately reflect actual GFR. Performed By: #### 36565-7 # ### [facility] CLIA [id number] [address] CASE MANAGEM Observed: 02/01/2025 12:16 PM Status: COMPLETED Source: [facility] HNO ID: [id number] Author: STEVE VALDERRAMA RN Service: Care Management [...] Observed: 02/01/2025 11:35 AM Status: COMPLETED Source: [facility] HNO ID: [id number] Author: HIMANSHU DECKER DO Service: Hospital Medicine Author Type: Physician Type: Progress Notes Filed: 02/01/2025 11:46 Note Text: DEPARTMENT OF HOSPITAL MEDICINE PROGRESS NOTE SERVICE DATE: 02/01/2025 SERVICE TIME: 11:37 AM Hospital Medicine/Primary Attending: Himanshu Decker DO NIGHT AND WEEKEND COVERAGE: After 7pm please page [phone] SUBJECTIVE: Patient seen and examined at bedside, [...] (POA: Yes) This note was generated using [employer] voice dictation. All reasonable efforts were made to correct dictation errors. SIGNATURE: Himanshu Decker DO PATIENT NAME: Ana Maria Avalos DATE: February 01, 2025 TIME: 11:37 AM PAGER/CONTACT #: My Pager PT PNL PPP Collected: 02/01/2025 9:23 AM Status: F Source: [facility] Order Comment: Specimen Type : BLOOD SPECIMEN Ordering Facility: [facility] Address: [address] [place] [address] TYPE CODE TESTS RESULT OUT OF RANGE REFERENCE UNITS LAB 5902-2(LOINC) Prothrombin time 15.7 High 9.7-13.0 sec LAB 6301-6(LOINC) INR PPP 1.5 High 0.9-1.3 Result Comment: Vitamin K An tagonist (VKA) Therapeutic Range: INR 2 to 3 (Target INR of 2.5) Note: For patients treated with VKA drugs, such as warfarin, the [employer] 2012 Guideline recommends [...] Chest 2012, 141:7S-47S Madelaine RA, et al. [facility] 2017, 70: 252-289 Performed By: #### 12406-3 # ### [facility] CLIA [id number] [address] STATES OF [facility] CBC PNL BLD AUTO Collected: 02/01/2025 2:04 AM Statu s: F Source: [facility] Order Comment: Specimen Type : BLOOD SPECIMEN Ordering Facility: [facility] Address: [address] [place] [address] TYPE CODE TESTS RESULT OUT OF RANGE [...] MCHC RBC Auto-mCnc 31.9 30.5-36.0 g/dL LAB 72957-0(LOINC) RDW RBC-Rto 14.6 11.5-15.0 % LAB 777-3(LOINC) Platelet # Bld Auto 145 Low 150-400 k/uL LAB 26549-8(LOINC) PMV Bld Auto 9.1 9.0-12.7 fL LAB 771-6(LOINC) nRBC # Bld Auto 0.02 High <0.01 k/uL Performed By: #### 80843-9 # ### [facility] CLIA [id number] [address] [place] BAS METAB 2000 PNL SERPL Collected: 09/2024 2:04 AM Status: F Source: [facility] Order Comment: Specimen Type : BLOOD SPECIMEN Ordering Facility: [facility] Address: [address] [place] [address] TYPE CODE TESTS RESULT OUT OF RANGE REFERENCE UNITS LAB 2345-7(LOINC) Glucose SerPl-mCnc 120 High 74-99 mg/dL Result Comment: The [employer] (ADA) provides guidance for cutoff [...] Standards of Medical Care in Diabetes 2016, [employer]. Diabetes Care. 2016.39(Suppl 1). LAB 3094-0(LOINC) BUN SerPl-mCnc 38 High 7-21 mg/ dL LAB 2160-0(LOINC) Creat SerPl-mCnc 1.39 High 0.58-0.96 mg/dL LAB 2951-2(LOINC) Sodium SerPl-sCnc 131 Low 136-144 mmol/L LAB 2823-3(LOINC) Potassium SerPl-sCnc 4.6 3.7-5.1 mmol/L LAB 2075-0(LOINC) Chloride SerPl-sCnc 101 98-107 mmol/L LAB 8-9(LOINC) CO2 SerPl-sCnc 20 Low 22-30 mmo l/L LAB 1863-0(LOINC) Anion Gap4 SerPl-sCnc 10 8-15 mmol/L LAB 49363-9(LOINC) Calcium SerPl-mCnc 8.6 8.5-10.2 mg/dL LAB 17948-1(LOINC) Creatinine + eGFR Pnl SerPlBld 37 Low [...] accurately reflect actual GFR. Performed By: #### 46404-7 # ### [facility] CLIA [id number] [address] HGB BLD-MCNC Collected: 01/31/2025 9:26 PM Status: F Source: [facility] Order Comment: Specimen Type : BLOOD SPECIMEN Ordering Facility: [facility] Address: [address] [place] [address] TYPE CODE TESTS RESULT OUT OF RANGE REFERENCE UNITS LAB 718-7([facility]) Hgb Bld-mCnc 12.1 11.5-15.5 g/dL Performed By: #### 718-7 ### # [facility] CLIA [id number] [address] CASE MGT INCAREY ARREOLA Observed: 01/31/2025 5:11 PM Status: COMPLETED Source: [facility] HNO ID: [id number] Author: KALEB MALDONADO RN Service: Care Management [...] Determined Advance Directives Current Advance Directive: None Executive Officer Attempted to Assist with AD Completion: Yes [...] little to no assistance, Back to cooking [place] Explained: [place] Given: No Are you interested [...] groceries and will work on the yard. 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 Her [...] Collected: 01/31/2025 3:54 PM Status: F Source: [facility] Order Comment: Specimen Type : BLOOD SPECIMEN Ordering Facility: [facility] Address: [address] [place] [address] TYPE CODE TESTS RESULT OUT OF RANGE REFERENCE UNITS LAB 718-7(LOINC) Hgb Bld-mCnc 11.9 11.5-15.5 g/dL Performed By: #### 718-7 ### # [facility] CLIA [id number] [address] HGB BLD-MCNC Collected: 01/31/2025 9:28 AM Status: F Source: [facility] Order Comment: Specimen Type : BLOOD SPECIMEN Ordering Facility: [facility] Address: [address] [place] [address] TYPE CODE TESTS RESULT OUT OF RANGE REFERENCE UNITS LAB 718-7(LOINC) Hgb Bld-mCnc 11.8 11.5-15.5 g/dL Performed By: #### 718-7 ### # [facility] CLIA [id number] [address] HISTORY PHYSICAL Observed: 01/31/2025 8:46 AM Status: COMPLETED Source: [facility] HNO ID: [id number] Author: PAT SEARS APRN.CNP Service: Hospital Medicine Author Type: Nurse Practitioner Type: H&P Filed: 01/31/2025 08:56 Note Text: DEPARTMENT OF HOSPITAL MEDICINE HISTORY AND PHYSICAL EXAM SERVICE DATE: 01/31/2025 SERVICE TIME: 8:46 AM NIGHT AND WEEKEND COVERAGE: After 7pm call #[phone] Chief complaint: Transfer from [facility] for rectus sheath hematoma HPI: This is an 89-year-old female with prior history of atrial fibrillation on warfarin, HFpEF, hypertension, hyperlipidemia and hypothyroidism. She initially went to [facility] for abdominal pain and then transferred here [...] staff and pt will be admitted to [facility]. PAST MEDICAL HISTORY Diagnosis Date Ankle [...] BREAST PERC VACUUM/ROTN 12/27/2009 CARDIOVERSION 03/03/2011 In [place] OPEN TX FEMORAL SUPRACONDYLAR FRACTURE W/XTN Left 08/29/2021 PAST SURGICAL HISTORY OF right ankle ORIF for triamalleolar fracture S $ KNEE TOTAL ARTHR PRASHANTH Left 05/07/2015 [facility] [place]. LTK replacement arthroplasty SIGMOIDOSCOPY FLX DX [...] (U/L) Date Value 01/31/2025 34 URINLAYSIS Specific Dickson, Ur Date Value Ref Range Status 01/06/2017 [...] Yes No Sig: Take one(1) tablet daily. Pkmuf-1-XTI-EPA-Fish Oil (FISH OIL) 1,000 mg (120 mg-180 [...] CKD - Creatinine 1.49. Last creatinine in [facility] was in 2021 -BMP in [...] 31, 2025 TIME: 8:46 AM PAGER/CONTACT #: [phone] ED NOTE Observed: 01/31/2025 3:19 AM Status: COMPLETED Source: [facility] HNO ID: [id number] Author: NIA LOPEZ RN Service: Emergency Medicine Author Type: Registered Nurse Type: ED Notes Filed: 01/31/2025 03:20 Note Text: While administering medication pt requested pain medication. This nurse to notify physician. CONSULT Observed: 01/31/2025 2:49 AM Status: COMPLETED Source: [facility] HNO ID: [id number] Author: SUSANA RODRIGUEZ MD Service: General Surgery Author Type: Physician Type: Consults Filed: 01/31/2025 23:38 Note Text: HISTORY AND PHYSICAL EXAM: EGS SERVICE SERVICE DATE: 01/31/2025 SERVICE TIME: 2:49 AM Subjective CHIEF COMPLAINT: Rectus Sheath Hematoma HPI: 89 year old female with many co morbidities PMH Afib on coumadin, HLD, HTN, HLD, hypothyroidism, T2DM, CAD, CHF, Pulm HTN. She presents to [facility] with a couple days of Right hemiabdomen [...] BREAST PERC VACUUM/ROTN 12/27/2009 CARDIOVERSION 03/03/2011 In [facility] [place] FEMORAL SUPRACONDYLAR FRACTURE W/XTN Left 08/29/2021 PAST SURGICAL HISTORY OF right ankle ORIF for triamalleolar fracture S $ KNEE TOTAL ARTHR PRASHANTH Left 05/07/2015 [facility] Knsaurav. LTK replacement arthroplasty SIGMOIDOSCOPY FLX DX [...] CAD, CHF, Pulm HTN. She presents to [facility] with a couple days of Right hemiabdomen pain and concern for rectus sheath hematoma. Hospital Course/Operations/Procedures: * No surgery found * Plan: Rectus sheath hematoma - Patient currently HDS not tachycardic with normal hgb. - Bleed likely to tamponade in rectus sheath once anticoagulant reversal administered - No acute surgical intervention indicated. - Recommend medical admission - if not previously reversed at [facility], would recommend reversal of coumadin - If [...] resuming anticoagulation by day 4 after diagnosis. [employer] recommends timing of reinitiation [...] Observed: 01/31/2025 2:25 AM Status: COMPLETED Source: [facility] HNO ID: [id number] Author: STEVE RED MD Service: Emergency Medicine [...] with: Functional Transfers: Arrives via EMS from [facility] D/T ABD wall hematoma. Pt denies falls and/or accidents. A/Ox4. + Coumadin. 89-year-old female presenting to the emergency department with abdominal wall hematoma reported from [facility]. Patient denies any trauma to the abdomen [...] BREAST PERC VACUUM/ROTN 12/27/2009 CARDIOVERSION 03/03/2011 In [facility] [place] FEMORAL SUPRACONDYLAR FRACTURE W/XTN Left 08/29/2021 PAST SURGICAL HISTORY OF right ankle ORIF for triamalleolar fracture S $ KNEE TOTAL ARTHR PRASHANTH Left 05/07/2015 [facility] [place]ap[place]. LTK replacement arthroplasty SIGMOIDOSCOPY FLX DX [...] 0.98 (*) 1.00 - 4.00 k/uL Abs [place] 0.94 (*) <0.87 k/uL All other components [...] Coumadin and was given vitamin K at [facility] prior to transfer. On arrival here patient was evaluated by surgery who recommended medical admission for trending hemoglobins. If patient becomes unstable they recommend CTA, however given patient's current stable vital signs I do not think that is indicated at this time. Patient admitted to [facility] in hemodynamically stable condition. SIGNATURE: Steve Sampson MD Emergency Medicine, PGY-2 [facility] - STEVE SAMPSON 01/31/25 0327 STEVE RED 01/31/25 0532 CBC W AUTO DIFF BLD Collected: 01/31/2025 1:[address] atus: F Source: [facility] Order Comment: Specimen Type : BLOOD SPECIMEN Ordering Facility: [facility] Address: [place] [address] TYPE CODE TESTS RESULT OUT OF RANGE REFERENCE UNITS LAB 6690-2([facility]) WBC # Bld Auto 5.92 3.70-11.00 k/uL LAB 789-8([facility]) RBC # Bld Auto 4.00 3.90-5.20 m/ uL LAB 718-7([facility]) Hgb Bld-mCnc 12.5 11.5-15.5 g/dL LAB 4544-3([facility]) Hct VFr Bld Auto 40.0 36.0-46.0 % LAB 787-2([facility]) MCV RBC Auto 100.0 80.0-100.0 fL LAB 785-6([facility]) MCH RBC Qn Auto 31.3 26.0-34.0 p g LAB 786-4([facility]) MCHC RBC Auto-mCnc 31.3 30.5-36.0 g/dL LAB 37732-9([facility]) RDW RBC-Rto 14.3 11.5-15.0 % LAB 777-3([facility]) Platelet # Bld Auto 179 150-400 k/uL LAB 24340-3([facility]) PMV Bld Auto 9.5 9.0-12.7 fL LAB 770-8([facility]) Neutrophils/leuk NFr Bld Auto 66.0 % LAB 751-8([facility]) Neutrophils # Bld Auto 3.91 1.45-7.50 k/uL LAB 736-9([facility]) Lymphocytes/leuk NFr Bld Auto 16.6 % LAB 731-0([facility]) Lymphocytes # Bld Auto 0.98 Low 1.00-4.00 k/uL LAB 5905-5([facility]) Monocytes/leuk NFr Bld Auto 15.9 % LAB 742-7([facility]) Monocytes # Bld Auto 0.94 High <0.87 k/uL LAB 713-8([facility]) Eosinophil/leuk NFr Bld Auto 0.5 % LAB 711-2([facility]) Eosinophil # Bld Auto 0.03 <0.46 k/uL LAB 706-2([facility]) Basophils/leuk NFr Bld Auto 0.7 % LAB 704-7([facility]) Basophils # Bld Auto 0.04 <0.11 k/uL LAB 13869-8([facility]) Imm Granulocytes/mavis k NFr Bld Auto 0.3 % LAB 87148-3([facility]) Imm Granulocytes # Bld Auto <0.03 <0.10 k/uL LAB 92986-8([facility]) nRBC/100 WBC Bld-Rto 0.0 /100 WBC LAB 771-6([facility]) nRBC # Bld Auto <0.01 <0.01 k/u L LAB 20400-2([facility]) Differential method Bld Auto Performed By: #### 23759-8 # ### [facility] CLIA [id number] [address] OF [facility] PT PNL PPP Collected: 01/31/2025 1:57 AM Status: F Source: [facility] Order Comment: Specimen Type : BLOOD SPECIMEN Ordering Facility: [facility] Address: [address] [place] [address] TYPE CODE TESTS RESULT OUT OF RANGE REFERENCE UNITS LAB 5902-2([facility]) Prothrombin time 51.0 High 9.7-13.0 sec LAB 6301-6([facility]) INR PPP 5.3 High 0.9-1.3 Result Comment: Vitamin K An tagonist (VKA) Therapeutic Range: INR 2 to 3 (Target INR of 2.5) Note: For patients treated with VKA drugs, such as warfarin, the [employer] 2012 Guideline recommends [...] Chest 2012, 141:7S-47S Madelaine RA, et al. [facility] 2017, 70: 252-289 Performed By: #### 25354-4 # ### [facility] CLIA [id number] [address] TYPE + SCREEN Collected: 01/31/2025 1:57 AM Status: F Source: [facility] Order Comment: Specimen Type : BLOOD SPECIMEN Ordering Facility: [facility] Address: [address] [place] [address] TYPE CODE TESTS RESULT OUT OF RANGE REFERENCE UNITS LAB [id number] ABO O LAB [id number] RH Positive LAB [id number] ANTIBODY SCREEN Negative LAB [id number] TYPE AND SCREEN EXPIRATION 02/03/2025 23:59 Performed By: #### TSCR #### [facility] CLIA [id number] [address] COMP METAB 2000 PNL SERPL Collected: 1:57 AM Status: F Source: [facility] Order Comment: Specimen Type : BLOOD SPECIMEN Ordering Facility: [facility] Address: [address] [place] [address] TYPE CODE TESTS RESULT OUT OF RANGE REFERENCE UNITS LAB 2885-2(LOINC) Prot SerPl-mCnc 5.6 Low 6.3-8.0 g/dL LAB 1751-7(LOINC) Albumin SerPl-mCnc 3.5 Low 3.9-4.9 g/dL LAB 36478-3(LOINC) Calcium SerPl-mCnc 8.7 8.5-10.2 mg/dL LAB 1975-2(LOINC) Bilirub SerPl-mCnc 1.6 High 0.2-1.3 mg/dL LAB 6768-6(LOINC) ALP SerPl-cCnc 102 34-123 U/L LAB 48893-3(LOINC) AST SerPl w P-5'-P-cCnc 48 High 13-35 U/L LAB 1743-4(LOINC) ALT SerPl w P-5'-P-cCnc 34 7-38 U/L LAB 2345-7(LOINC) Glucose SerPl-mCnc 102 High 74-99 mg/dL Result Comment: The [employer] (ADA) provides guidance for cutoff [...] Standards of Medical Care in Diabetes 2016, [employer]. Diabetes Care. 2016.39(Suppl 1). LAB 3094-0(LOINC) BUN SerPl-mCnc 36 High 7-21 mg/ dL LAB 2160-0(LOINC) Creat SerPl-mCnc 1.49 High 0.58-0.96 mg/dL LAB 2951-2(LOINC) Sodium SerPl-sCnc 134 Low 136-144 mmol/L LAB 2823-3(LOINC) Potassium SerPl-sCnc 4.9 3.7-5.1 mmol/L LAB 2075-0(LOINC) Chloride SerPl-sCnc 102 98-107 mmol/L LAB 2028-9(LOINC) CO2 SerPl-sCnc 19 Low 22-30 mmo l/L LAB 1863-0(LOINC) Anion Gap4 SerPl-sCnc 13 8-15 mmol/L LAB 33643-8(LOINC) Creatinine + eGFR Pnl SerPlBld 34 Low [...] accurately reflect actual GFR. Performed By: #### 01977-5 # ### [facility] CLIA [id number] [address] [facility] [place] ED PROV NOTE Observed: 01/31/2025 1:38 AM Status: COMPLETED Source: [facility] HNO ID: [id number] Author: STEVE RED MD Service: Emergency Medicine [...] abdominal trauma, falls or injuries. Transferred from [facility] for surgical consult. for the last day [...] Observed: 01/31/2025 1:19 AM Status: COMPLETED Source: [facility] HNO ID: [id number] Author: AYDEN ROSALES RN Service: ? Author Type: Registered Nurse Type: ED Notes Filed: 01/31/2025 01:19 Note Text: Bed: 12-ED Expected date: Expected time: Means of arrival: Comments: [facility] transfer ALLERGIES DATE TYPE / CODE NAME / CODE REACTION SEVERITY SOURCE 01/31/2025 DRUG INGREDI/589487 003(SNOMED CT) VENOM-HONEY BEE UNKNOWN [facility] 06/20/2005 DRUG INGREDI/288393 003(SNOMED CT) CODEINE HIVES [facility] 06/20/2005 DRUG/[id number] (SNOMED CT) PROPOXYPHENE N-ACETAMINOPHEN INTOLERANCE [facility] ENCOUNTERS ADMIT/DISCHARGE ACCOUNT NUMBER ADMITTING ENCOUNTER CLASS LOCATION SOURCE 01/31/2025/ 5 [id number] ARNOLDO GONSALVES [facility] PAYERS ENCOUNTER GUARANTOR PAYER SUBSCRIBER SOURCE 01/31/2025 Primary Insuranc e:MEDICARE A AND BPolicy Number: [id number] Date:[id number] Name:Cristal LLANOS: [id number] [place] [address] [facility] 01/31/2025 Secondary Insura nce:MMO MEDICARE SUPPLEMENTPolicy Number: [id number] Date:[id number] Name:Dwight LLANOS: [id number] [place] [address] [facility]
[2025-05-02 16:17] LABS: Anion Gap 11 (5-15); BUN 29 mg/dL (4-19); BUN/Creat Ratio 17.5 RATIO (10-20); Calcium,Total 8.6 mg/dL (7.6-11.0); Carbon Dioxide 27.9 mmol/L (21.0-32.0); Chloride 91 mmol/L (98-108); Glucose 120 mg/dL (70-99); Potassium 3.6 mmol/L (3.3-5.1)
== END | disposition home or self-care (01) ==
LOC: MTLAB 12:43
PROVIDERS: PCP Internal Medicine; Referring Provider Physician Assistant Medical; Visit Provider Physician Assistant Medical
DX: I50.40 Unspecified combined systolic (congestive) and diastolic (congestive) heart failure (principal)
CPT/HCPCS: 36415; 80048

== ENCOUNTER → 2025-05-09 | Outpatient (CLI) | payer MEDICARE, OTHER, SELFPAY ==
[2025-05-09 17:10] LABS: Mucous, Urine 0 SEEN /hpf (<or=2+); Red Blood Cells-Urine 0 SEEN /hpf (0-5)
[2025-05-09 17:25] LABS: Color, Urine Yellow (Yellow); Glucose, Dipstick 1000 mg/dl (Normal); Ketone-Dipstick Negative (Negative); Leukocyte Esterase-Dipstick 500 /ul (Negative); Nitrite-Dipstick Negative (Negative); Occult Blood-Urine 10 /ul (Negative); Protein-Dipstick 30 mg/dl (Negative); Specific Gravity, Urine 1.010 (1.002-1.030); Urine Bilirubin Dipstick Negative (Negative)
[2025-05-09 17:34] LABS: Squamous Epithelial Cells - UA 0-5 SEEN /hpf (5-10)
== END | disposition home or self-care (01) ==
LOC: LABSPEC 16:07
PROVIDERS: PCP Internal Medicine; Referring Provider Nurse Practitioner Family; Visit Provider Nurse Practitioner Family
DX: N30.01 Acute cystitis with hematuria (principal)
CPT/HCPCS: 81001; 87086; 87088; 87186

== ENCOUNTER 2025-05-14 07:08 | Inpatient (IN) | payer MEDICARE, OTHER, SELFPAY ==
[2025-05-14] VITALS (7 sets, daily range): BP systolic 94–119; BP diastolic 54–86; PULSE 55–84; RESP 16–18; TEMP 36.1–37; O2SAT 92–100; BMI 26.0; BMI 25.0
--- NOTE | 2025-05-14 07:27 | EKG12_ITS ---
Test Reason : FALL Blood Pressure : */* mmHG Vent. Rate : 55 BPM Atrial Rate : * BPM P-R Int : * ms QRS Dur : 126 ms QT Int : 518 ms P-R-T Axes : * 150 225 degrees QTcB Int : 495 ms Atrial fibrillation with slow ventricular response Right bundle branch block T wave abnormality, consider inferolateral ischemia Abnormal ECG Confirmed by SAMARA KIM, NORAH ([id number]), research editor EDNA CHUN ([id number]) on 05/16/2025 7:44:06 AM Referred By: Confirmed By: NORAH PASCUAL MD
--- NOTE | 2025-05-14 07:28 | ED.VIS.FALL ---
HPI HPI - Fall History of Present Illness Chief Complaint: Fall Narrative Narrative: Patient is a 89-year-old female presenting to the emergency department after a fall. Patient has a PMHX of hyponatremia, recurrent UTI, CKD stage III, HFrEF, Patient states that she was walking to the kitchen to have a snack, when her walker slipped out from under her causing her to fall and strike the back of her head. She is on Eliquis for atrial fibrillation. She did not lose consciousness. She denies any neck pain. She endorses pain to her left lower back and her right ankle. States that for the past month or so she has been more weak than normal. This is being worked up outpatient and is reportedly likely due to her hyponatremia. She recently had a medication changes to attempt to resolve this. She denies any fevers, chest pain, shortness of breath, abdominal pain, nausea, vomiting, diarrhea, dysuria or hematuria. [facility] Medical History Cough UTI (urinary tract infection) Mood disorder Insomnia Hematoma of rectus sheath Right ventricular dilation Elevated C-reactive protein (CRP) Pain in both upper extremities Hemorrhoid CKD (chronic kidney disease), stage III 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 Longstanding persistent atrial fibrillation Foul smelling urine Hx of fracture of femur Dermatitis Nonrheumatic aortic (valve) stenosis Cystitis Osteoporosis Urinary tract infection with hematuria Vision problems Osteopenia Chronic headaches Cataracts, bilateral Back problem Arthritis Seasonal allergies RBBB DDD (degenerative disc disease) Diverticulosis Pure hypercholesterolemia Anemia Pulmonary hypertension Non-rheumatic mitral regurgitation Nonrheumatic tricuspid valve regurgitation Paroxysmal atrial fibrillation Essential hypertension Hyperlipidemia GERD (gastroesophageal reflux disease) Depression Joint pain Headache Snoring Post-nasal drainage Dyspnea on exertion Anxiety Insomnia due to medical condition Hypothyroidism (acquired) Anticoagulation goal of INR 2 to 3 Hypertension Atrial fibrillation with normal ventricular rate 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 Home Medications ?Medication ?Instructions ?Recorded ?Last Taken ?Type acetaminophen 500 mg tablet 1,000 mg (2 x 500 mg) PO Q6H PRN 09/11/21 Unknown Rx PRN Pain Score 1-5 #0 tabs atorvastatin 20 mg tablet 20 mg PO QHS CHOLESTEROL #90 tabs 06/16/24 Unknown Rx alendronate 70 mg tablet See Rx Instructions .Route 06/21/24 Unknown Rx .COMPLEX #14 tabs Handicap Placard #1 ea 08/15/24 Unknown Rx levothyroxine 112 mcg tablet See Rx Instructions .Route 09/26/24 Unknown Rx .COMPLEX #90 tabs dapagliflozin propanediol 10 mg 10 mg PO QAM #30 tabs 11/15/24 Unknown Rx tablet (Farxiga) apixaban 5 mg tablet (Eliquis) 5 mg PO .COMPLEX #200 tabs 02/09/25 Unknown Rx metoprolol tartrate 100 mg tablet 100 mg PO Q12H #180 tabs 03/28/25 Unknown Rx furosemide 40 mg tablet 40 mg PO BID #180 tabs 04/20/25 Unknown Rx nitrofurantoin 100 mg PO Q12H 7 days #14 caps 05/09/25 Unknown Rx monohydrate/macrocrystals 100 mg capsule (Macrobid) spironolactone 25 mg tablet 50 mg (2 x 25 mg) PO DAILY #60 tabs 05/09/25 Unknown Rx Allergy/AdvReac Type Severity Reaction Status Date / Time bee venom protein (honey bee) Allergy Unknown UNKNOWN Verified 05/14/25 07:13 propoxyphene (From Allergy Unknown UNKNOWN Verified 05/14/25 07:13 Darvocet-N) codeine AdvReac Other Verified 05/14/25 07:13 Family History Mother Heart disease High cholesterol Osteoporosis CVA (cerebral vascular accident) Hypertension Father Hypertension Alcohol abuse Sister Asthma Hypertension Thyroid disorder Surgical History History of cataract extraction History of cardioversion (~07/15/22) History of total left knee replacement Status post surgical manipulation of ankle joint Status post total left knee replacement Social History household members: none Smoking Status: Never smoker alcohol intake: never substance use type: does not use what type of physical activity do you participate in: none ROS ROS ED ROS Narrative see HPI EXAM Physical Exam Narrative Exam Narrative: Vital signs: Reviewed General: Alert and orientedx3. No acute distress. HEENT: Head is normocephalic. Cephalohematoma to the left parietal portion of the scalp. No overlying laceration or abrasion. Midface is stable and nontender to palpation. Pupils 2 mm equal round and reactive. Nares are patent. No septal hematoma. Oropharynx and throat exams normal. No oropharyngeal trauma. Neck: Supple without lymphadenopathy nontender. No midline cervical spinal tenderness to palpation. No step-offs or deformities. Cardiovascular: Regular rate and rhythm, no murmurs. No rubs or gallops. Normal S1 and S2 Respiratory: Clear to auscultation bilaterally. No wheezes, rales, rhonchi Chest: Chest wall is atraumatic and nontender to palpation. No crepitus, erythema or ecchymosis noted. Abdominal: Soft and nontender. Normal bowel sounds. No guarding or rebound. Nonsurgical abdomen Extremities: No midline thoracic or lumbar spinal tenderness to palpation. No step-offs or deformities. Hips are stable and nontender to palpation. There is some mild left lower lumbar paraspinal tenderness to palpation. No erythema or ecchymosis to the back or flank. There is mild tenderness to palpation of the right lateral malleolus with some mild swelling noted at the ankle. Plantarflexion and dorsiflexion strength intact. Sensation intact. DP and PT pulses intact. Extremities are otherwise atraumatic and nontender to palpation with normal active range of motion no tenderness. Skin: Chronic venous stasis changes to bilateral lower extremities. Neurological: Cranial nerves II through XII are grossly intact. Normal strength and sensation. Normal cerebellar function The rest of the physical exam is unremarkable Const Vital Signs: 05/14/25 07:09 05/14/25 07:14 05/14/25 09:28 Temperature 97.3 F L Temperature Source Temporal Pulse Rate 58 L 55 L Respiratory Rate 16 18 Respiratory Effort Normal Blood Pressure 104/86 H 108/69 Blood Pressure Mean 92 82 Pulse Ox 100 94 Oxygen Delivery Method Room Air Room Air 05/14/25 11:00 05/14/25 12:08 Temperature 98.6 F Temperature Source Pulse Rate 56 L 67 Respiratory Rate 16 Respiratory Effort Blood Pressure 119/81 H 94/60 Blood Pressure Mean 93 71 Pulse Ox 92 Oxygen Delivery Method MDM MDM MDM Narrative Medical decision making narrative: Patient is an 89-year-old female presenting to the emergency department after a mechanical fall. Patient was seen and examined. Vitals are stable. Patient resting in bed comfortably in no acute distress. Given her age, head trauma on Eliquis, CT the brain and cervical spine were obtained. X-rays were ordered based off her physical exam including pelvis and right ankle x-rays. Given the patient's age, fall and reported back pain although no midline tenderness on exam a CT of the lumbar spine was ordered to assess for any fracture. Given her generalized weakness for the last few weeks basic lab work, EKG and urinalysis were obtained. CBC with chronic leukopenia of 4.2 and a normal hemoglobin. BMP with acute on chronic hyponatremia of 124, which is slightly worse than her baseline recently of 130. BUN and creatinine are around her baseline. AST, alk phos and total bilirubin are slightly worse than her baseline however it looks like they have been uptrending over the past few months. Urinalysis with leukocyte esterase and rare bacteria however there is pretty significant contamination with epithelial cells noted. There are no nitrites. This looks to be contaminated not consistent with a urinary tract infection. CT of the brain with an intracranial aneurysm likely anterior communicating artery that is moderately large at 1.6 cm x 1.4 cm. There is no no intracranial acute pathology. CT cervical spine with no acute abnormalities. CT lumbar with an old T12 compression fracture otherwise no acute abnormalities. Right ankle x-ray, chest x-ray and pelvis x-ray reviewed by myself and no acute abnormalities are seen. Mild cardiomegaly noted on the chest x-ray. Radiology read in agreement. Patient ambulated and states she felt fairly weak while walking. I did update the patient on the CT findings of the aneurysm and she states she was unaware of this. States she does not think she has ever had a CT of the brain done. She denies any headaches or neurologic symptoms over the past week. I did speak with neurosurgeon at [facility] , Dr. Real, who states with no symptoms she can follow-up outpatient in his office will call her this week. However with the patient's generalized weakness especially while walking and acute on chronic hyponatremia she states she will be nervous going home and I think it is appropriate for her to be admitted for further management. 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 Labs: Laboratory Results - last 24 hr 05/14/25 05/14/25 07:40 08:56 WBC 4.2 L RBC 4.86 Hgb 14.1 Hct 42.2 MCV 86.8 MCH 29.0 MCHC 33.4 RDW Std Deviation 61.0 H RDW Coeff of Payal 20.3 H Plt Count 151 MPV 9.6 Immature Gran % (Auto) 0.500 Neut % (Auto) 71.0 H Lymph % (Auto) 13.3 L [place] % (Auto) 14.5 H Eos % (Auto) 0.2 Baso % (Auto) 0.5 Absolute Neuts (auto) 3.0 Absolute Lymphs (auto) 0.56 L Nucleated RBC % 0 Anisocytosis 1+ Sodium 124 L Potassium 3.6 Chloride 86 L Carbon Dioxide 23.5 Anion Gap 14 BUN 34 H Creatinine 1.55 H Estim Creat Clear Calc 27.48 L Est GFR (MDRD) Non-Af 32 L BUN/Creatinine Ratio 21.7 H Glucose 102 H Uric Acid 6.2 H Calcium 9.0 Total Bilirubin 2.87 H Direct Bilirubin 1.67 H AST 61 H ALT 29 Alkaline Phosphatase 143 H Total Protein 6.4 Albumin 3.5 Globulin 2.8 Lipase 37 TSH 91.900 H Free T4 0.30 L Cortisol AM Sample 21.70 H Urine Color Yellow Urine Clarity Sl. Cloudy Urine pH 7.0 Ur Specific [place] 1.010 Urine Protein 30 H Urine Glucose (UA) 250 H Urine Ketones Negative Urine Occult Blood 10 H Urine Nitrite Negative Urine Bilirubin Negative Urine Urobilinogen 4 H Ur Leukocyte Esterase 500 H Urine RBC 0 SEEN Urine WBC 10-25 SEEN Ur Squamous Epith Cells 10-25 SEEN Ur Transition Epith Cell 0-5 SEEN Urine Bacteria RARE Urine Mucus 0 SEEN Urine Osmolality 302 Ur Random Sodium 35 Radiography Chest X-Ray - ED: 2 View, Read by ED Physician, Normal, No Acute Disease and Cardiomegaly X-Ray: Right Hip, Left Hip, Read by ED Physician and No Fracture Diagnostic Testing: Clinical Impression(s) from Imaging Studies Brain CT 05/14/25 07:50 IMPRESSION: Age-appropriate appearance of the brain. 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 Negative for acute intracranial pathology. Reading Location: [id number] Cervical Spine CT 05/14/25 07:50 IMPRESSION: Age-appropriate appearance of the brain. 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 Negative for acute intracranial pathology. Reading Location: [id number] Lumbar Spine CT 05/14/25 07:50 IMPRESSION: Old T12 compression fracture. Negative for acute abnormality of the lumbar spine. Reading Location: [id number] Ankle X-Ray 05/14/25 08:05 IMPRESSION: Previous orthopedic fixation of the ankle without residual or recurrent fracture Reading Location: [id number] Chest X-Ray 05/14/25 08:05 IMPRESSION: Cardiomegaly. Negative for acute cardiopulmonary disease. Reading Location: [id number] Pelvis X-Ray 05/14/25 08:05 IMPRESSION: Negative for acute abnormality of the pelvis. Reading Location: [id number] Discharge Plan Dx/Rx/DC Orders Clinical Impression: Fall, Brain aneurysm, Transaminitis, Hyponatremia Disposition Disposition: Acute Care Hospital [facility] Discharge Date/Time: 05/14/25 13:16
[2025-05-14 07:45] LABS: Hematocrit 42.2 % (37-47); Hemoglobin 14.1 g/dL (12.0-15.0); Immature Granulocytes Count 0.020 X10^3/uL (0.0-0.0); Mean Corp Hgb Conc 33.4 g/dL (32-36); Mean Corpuscular Volume 86.8 fL (81-99); Mean Platelet Vol. 9.6 fl (6.2-12.0); NRBC Flagged by Analyzer 0 % (0-5); POSITIVE DIFFERENTIAL YES; POSITIVE MORPHOLOGY YES; Platelet Count 151 K/mm3 (150-450); RBC Distribution Width CV 20.3 % (11.6-14.6); RBC Distribution Width SD 61.0 fl (35.1-43.9); Red Blood Count 4.86 M/mm3 (4.2-5.4); White Blood Count 4.2 K/mm3 (4.4-11.0)
--- NOTE | 2025-05-14 07:50 | CT_ITS ---
PROCEDURE: BRAIN/HEAD WITHOUT CONTRAST; SPINE CERVICAL WITHOUT CONTRAS 05/14/2025 REASON FOR EXAM: FALL, HIT HEAD ON ELIQUIS TECHNIQUE: Procedure Code: CTBR; CTSPC Modality: CT Procedure: BRAIN/HEAD WITHOUT CONTRAST; SPINE CERVICAL WITHOUT CONTRAS Coronal and Sagittal reconstruction series were provided. One or more dose reduction techniques were used (e.g., Automated exposure control, adjustment of the mA and/or kV according to patient size, use of iterative reconstruction technique. RADIATION DOSE SUMMARY: CTDlvol: 76 mGy DLP: 1080 mGycm COMPARISON: None. FINDINGS: Cerebrum: Mild loss of cerebral volume. Negative for mass the frontal, parietal, temporal and occipital lobes otherwisenegative. White matter: Mild periventricular white matter changes. Cerebellum: Negative. Negative for mass. Negative for acute infarction. CSF pathways and ventricles: Negative. Negative for ventricular dilatation or obstruction. Basal ganglia and thalami: Negative. No acute infarctions. Brainstem: Midbrain, michael and medulla otherwisenegative. Calvarium: Negative. Negative for fractures. Orbital structures: Globes negative. Extraocular muscles negative. Paranasal sinuses: No air fluid levels. Remainder of the sinuses negative. Vascular structures: There is an aneurysm in the bspwic-th-Rifdle likely anterior communicating artery aneurysm measures 1.6 x 1.4 cm. No prior exam to determine stability. Cnee-ox-pnobeyon calcifications of the distal intracranial internal carotid arteries. Soft tissues: Left parietal soft tissue swelling. Otherwise negative. Other: : Negative for acute intracranial hemorrhage. Negative for acute infarction. Remainder of exam negative. CT/Brain/Head without Contrast IMPRESSION: Age-appropriate appearance of the brain. 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 Negative for acute intracranial pathology. Reading Location: [id number]
--- NOTE | 2025-05-14 07:50 | CT_ITS ---
PROCEDURE: BRAIN/HEAD WITHOUT CONTRAST; SPINE CERVICAL WITHOUT CONTRAS 05/14/2025 REASON FOR EXAM: FALL, HIT HEAD ON ELIQUIS TECHNIQUE: Procedure Code: CTBR; CTSPC Modality: CT Procedure: BRAIN/HEAD WITHOUT CONTRAST; SPINE CERVICAL WITHOUT CONTRAS Coronal and Sagittal reconstruction series were provided. One or more dose reduction techniques were used (e.g., Automated exposure control, adjustment of the mA and/or kV according to patient size, use of iterative reconstruction technique. RADIATION DOSE SUMMARY: CTDlvol: 76 mGy DLP: 1080 mGycm COMPARISON: None. FINDINGS: Cerebrum: Mild loss of cerebral volume. Negative for mass the frontal, parietal, temporal and occipital lobes otherwisenegative. White matter: Mild periventricular white matter changes. Cerebellum: Negative. Negative for mass. Negative for acute infarction. CSF pathways and ventricles: Negative. Negative for ventricular dilatation or obstruction. Basal ganglia and thalami: Negative. No acute infarctions. Brainstem: Midbrain, michael and medulla otherwisenegative. Calvarium: Negative. Negative for fractures. Orbital structures: Globes negative. Extraocular muscles negative. Paranasal sinuses: No air fluid levels. Remainder of the sinuses negative. Vascular structures: There is an aneurysm in the rjlbex-ap-Ulmshe likely anterior communicating artery aneurysm measures 1.6 x 1.4 cm. No prior exam to determine stability. Nyno-uz-cuvzxlmw calcifications of the distal intracranial internal carotid arteries. Soft tissues: Left parietal soft tissue swelling. Otherwise negative. Other: : Negative for acute intracranial hemorrhage. Negative for acute infarction. Remainder of exam negative. CT/Spine Cervical without Contras IMPRESSION: Age-appropriate appearance of the brain. 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 Negative for acute intracranial pathology. Reading Location: [id number]
--- NOTE | 2025-05-14 07:50 | CT_ITS ---
PROCEDURE: SPINE LUMBAR WITHOUT CONTRAST 05/14/2025 REASON FOR EXAM: BACK PAIN AFTER FALL Low back pain. TECHNIQUE: Procedure Code: CTSPL Modality: CT Procedure: SPINE LUMBAR WITHOUT CONTRAST Coronal and Sagittal reconstruction series were provided. One or more dose reduction techniques were used (e.g., Automated exposure control, adjustment of the mA and/or kV according to patient size, use of iterative reconstruction technique COMPARISON: January 2025 RADIATION DOSE SUMMARY: CTDlvol: 18.4 mGy DLP: 688 mGycm FINDINGS: T11 through L1: Vertebral bodies: Old compression fracture superior aspect of T12 unchanged. Associated Schmorl's node T11-T12. Disk Space: Schmorl's node T11-T12. Facet Joints: Negative for bilateral facet joint hypertrophy. Spinal Canal: Negative forsubarticular zone narrowing. Mildcentral spinal narrowing. At T11-T12. L1-L2 and L2-L3 Vertebral bodies: Negative. Disk Space: Mild degenerate disc disease at these levels. Facet Joints: Mild bilateral facet joint hypertrophy. Spinal Canal: Negative forsubarticular zone narrowing. Negative forcentral spinal narrowing. L3-4: Vertebral bodies: Negative. Disk Space: Schmorl's node L3. moderate diffuse disc bulge. Facet Joints: Mild bilateral facet joint hypertrophy. Spinal Canal: Mild bilateral subarticular zone narrowing. Mildcentral spinal narrowing. L4-5: Vertebral bodies: Negative. Disk Space: Negative. Facet Joints: Negative for bilateral facet joint hypertrophy. Spinal Canal: Negative forsubarticular zone narrowing. Negative forcentral spinal narrowing. L5-S1: Vertebral bodies: Negative. Disk Space: Disc desiccation moderate loss of disc height. Moderate posterior osteophyte disc complex. Facet Joints: Moderate bilateral facet joint hypertrophy. Spinal Canal: Mildsubarticular zone narrowing. Negative forcentral spinal narrowing. Alignment: Normal alignment. Vascular calcifications abdominal its branches. CT/Spine Lumbar without Contrast IMPRESSION: Old T12 compression fracture. Negative for acute abnormality of the lumbar spine. Reading Location: [id number]
[2025-05-14 07:52] LABS: Differential Indicated SCAN CRITERIA MET
--- NOTE | 2025-05-14 08:05 | RAD_ITS ---
PROCEDURE: ANKLE MIN 3 VIEWS 05/14/2025 REASON FOR EXAM: FALL, ANKLE PAIN TECHNIQUE: Procedure Code: RADANK Modality: DX Procedure: ANKLE MIN 3 VIEWS Laterality: Right COMPARISON: None. FINDINGS: Bones: Distal tibia and fibula negative. Imaged hindfoot and metatarsals negative. Joints: Degenerative changes in the ankle articulation as well as hindfoot. Soft tissues: No significant soft tissue swelling. Other: Orthopedic screws and plates distal ankle intact. Remainder of the exam negative. RAD/Ankle min 3 Views IMPRESSION: Previous orthopedic fixation of the ankle without residual or recurrent fractur e Reading Location: [id number]
--- NOTE | 2025-05-14 08:05 | RAD_ITS ---
PROCEDURE: PELVIS 1 OR 2 VIEWS 05/14/2025 REASON FOR EXAM: FALL TECHNIQUE: Procedure Code: RADPEL Modality: DX Procedure: PELVIS 1 OR 2 VIEWS COMPARISON: None FINDINGS: CR pelvis/hips: Bones: Mild degenerative changes. Bony pelvis intact with no fractures. Right proximal femur otherwise negative. Left proximal femur otherwise negative. Joints: Mild superior joint space narrowing. Soft tissues: Mild vascular calcifications abdominal aortic branches. Adjacent soft tissues otherwise negative. Other: Remainder of exam negative. RAD/Pelvis 1 or 2 Views IMPRESSION: Negative for acute abnormality of the pelvis. Reading Location: [id number]
--- NOTE | 2025-05-14 08:05 | RAD_ITS ---
PROCEDURE: CHEST PA AND LATERAL 05/14/2025 REASON FOR EXAM: FALL, WEAKNESS TECHNIQUE: Procedure Code: RADCXR Modality: DX Procedure: CHEST PA AND LATERAL COMPARISON: 14 April 2025. FINDINGS: Hardware and support lines: None. Heart: Moderate cardiomegaly. Lungs: Negative for infiltrates, or pulmonary edema. Pleura: No pleural thickening. No pleural effusion. Mediastinum and aorta: Negative for hilar adenopathy. Mild vascular calcifications thoracic aorta. Bones: Age-appropriate degenerative changes of the spine. Other: Remainder of the exam negative. RAD/Chest PA and Lateral IMPRESSION: Cardiomegaly. Negative for acute cardiopulmonary disease. Reading Location: [id number]
[2025-05-14 08:13] LABS: Anion Gap 14 (5-15); BUN 34 mg/dL (4-19); BUN/Creat Ratio 21.7 RATIO (10-20); Calcium,Total 9.0 mg/dL (7.6-11.0); Carbon Dioxide 23.5 mmol/L (21.0-32.0); Chloride 86 mmol/L (98-108); Estimated Creatinine Clearance 27.48 ml/min (50-250); Glucose 102 mg/dL (70-99); Potassium 3.6 mmol/L (3.3-5.1)
[2025-05-14 08:25] LABS: Anisocytosis 1+
[2025-05-14 09:01] LABS: Mucous, Urine 0 SEEN /hpf (<or=2+); Red Blood Cells-Urine 0 SEEN /hpf (0-5)
[2025-05-14 09:05] LABS: Color, Urine Yellow (Yellow); Glucose, Dipstick 250 mg/dl (Normal); Ketone-Dipstick Negative (Negative); Leukocyte Esterase-Dipstick 500 /ul (Negative); Nitrite-Dipstick Negative (Negative); Occult Blood-Urine 10 /ul (Negative); Protein-Dipstick 30 mg/dl (Negative); Specific Gravity, Urine 1.010 (1.002-1.030); Urine Bilirubin Dipstick Negative (Negative)
[2025-05-14] MEDS: 0.9% Normal Saline (1000mL) 1,000 ML 1000 ML IV (09:07)
[2025-05-14 09:12] LABS: Squamous Epithelial Cells - UA 10-25 SEEN /hpf (5-10); Transitional Epithelial - Ur 0-5 SEEN /hpf (0-5)
[2025-05-14 09:31] LABS: AST(SGOT) 61 U/L (<=31); Alanine Aminotransfer ALT/SGPT 29 U/L (<=34); Albumin, Serum 3.5 g/dL (3.4-4.8); Alkaline Phosphatase 143 U/L (35-104); Bilirubin, Direct 1.67 mg/dL (0.00-0.30); Globulin 2.8 g/dL (2.2-4.2); Lipase 37 U/L (13-75)
--- NOTE | 2025-05-14 09:32 | CM.ED ---
Social Work Date of referral: 05/14/25 Reason for referral: Advanced Care Directives (ACD's) not on file. Referred by: Social Work Identification Patient provided consent for social work visit. Animal Keeper requested patient to bring in a copy of ACD's which patient agreed to do. Carmelita Huynh, CASHIER RECEPTIONIST, VESSEL SCRAPPER HELPER
--- NOTE | 2025-05-14 12:23 | ED.RN ---
pt. was given d/c papers and PIV removed and given instructions for home. Pt. was going to be dressed and placed in waiting room. Pt. friend then called and expressed concerns that she needed to be admitted. This RN went in and discussed this with patient and stated that being admitted is her decision. Pt. decided that she feels it will be best if she is admitted. Dr Britt notified
--- NOTE | 2025-05-14 12:42 | PCM.HP.STD ---
HPI - General General Date of Admission: 05/14/25 Date of Service: 05/14/25 Chief Complaint: weakness and falls/ HPI Narrative SAEID WALLS, is a 89 F who presented to the emergency department at [facility] on 05/14/2025 with a chief complaint of falls. Patient reported that she was walking back to the kitchen to have a snack when her walker slipped out from under her causing her to fall and strike the back of her head. She was on Eliquis for atrial fibrillation. She did not lose consciousness. She denies any significant pain to her head or neck but did endorse some left low back pain and right ankle pain. She reported over the last month she has felt weaker than typical as well. She has hyponatremia at baseline and her primary care physician has been working this up. She has not felt ill. She had been evaluated for urinary tract infection and was placed on Macrobid. Urine culture here shows significant growth with presumptive E. coli from a culture on 05/09/2025. OSVALDO was greater than 16. Patient does live at home alone. Vital signs on presentation showed a temperature of 97.3, heart rate 58, respiratory rate was 16, blood pressure is 104/86 and pulse ox was 100% on room air. CBC showed a white count of 4.2 with a normal hemoglobin. She did have a mild left shift with 71% neutrophilia. Chemistry panel showed worsening hyponatremia with a sodium of 124, chloride of 86, BUN was 34 with a serum creatinine of 1.55 (consistent with her baseline), LFTs show chronic hyperbilirubinemia which is stable. UA is somewhat suggestive of infection sowing leuk esterase, white cells, bacteria but was negative for nitrates. Extensive imaging was performed given fall. CT of the brain was unremarkable for acute findings but did show evidence of an ANUSHA aneurysm that was 1.[address] of the cervical spine was unremarkable for acute findings. CT of the ankle was unremarkable for acute findings. CT of the pelvis was unremarkable for acute findings. Chest x-ray was unremarkable for acute findings. CT of the lumbar spine was negative for acute findings. Initially, the ED physician was planning on sending her home however with her sodium being lower than typical and her falls admission was felt to be warranted. Dr. Britt from the emergency department also did have a conversation with Dr. Lopez, who is a neurosurgeon at [facility], and he recommended outpatient follow-up for the aneurysm indicating he would see her after discharge next week. 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 Longstanding persistent atrial fibrillation Foul smelling urine Hx of fracture of femur Dermatitis Nonrheumatic aortic (valve) stenosis Cystitis Osteoporosis Urinary tract infection with hematuria Vision problems Osteopenia Chronic headaches Cataracts, bilateral Back problem Arthritis Seasonal allergies RBBB DDD (degenerative disc disease) Diverticulosis Pure hypercholesterolemia Anemia Pulmonary hypertension Non-rheumatic mitral regurgitation Nonrheumatic tricuspid valve regurgitation Paroxysmal atrial fibrillation Essential hypertension Hyperlipidemia GERD (gastroesophageal reflux disease) Depression Joint pain Headache Snoring Post-nasal drainage Dyspnea on exertion Anxiety Insomnia due to medical condition Hypothyroidism (acquired) Anticoagulation goal of INR 2 to 3 Hypertension Atrial fibrillation with normal ventricular rate 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 Home Medications ?Medication ?Instructions ?Recorded ?Last Taken ?Type acetaminophen 500 mg tablet 1,000 mg (2 x 500 mg) PO Q6H PRN 09/11/21 Unknown Rx PRN Pain Score 1-5 #0 tabs atorvastatin 20 mg tablet 20 mg PO QHS CHOLESTEROL #90 tabs 06/16/24 Unknown Rx alendronate 70 mg tablet See Rx Instructions .Route 06/21/24 Unknown Rx .COMPLEX #14 tabs Handicap Placard #1 ea 08/15/24 Unknown Rx levothyroxine 112 mcg tablet See Rx Instructions .Route 09/26/24 Unknown Rx .COMPLEX #90 tabs dapagliflozin propanediol 10 mg 10 mg PO QAM #30 tabs 11/15/24 Unknown Rx tablet (Farxiga) apixaban 5 mg tablet (Eliquis) 5 mg PO .COMPLEX #200 tabs 02/09/25 Unknown Rx metoprolol tartrate 100 mg tablet 100 mg PO Q12H #180 tabs 03/28/25 Unknown Rx furosemide 40 mg tablet 40 mg PO BID #180 tabs 04/20/25 Unknown Rx nitrofurantoin 100 mg PO Q12H 7 days #14 caps 05/09/25 Unknown Rx monohydrate/macrocrystals 100 mg capsule (Macrobid) spironolactone 25 mg tablet 50 mg (2 x 25 mg) PO DAILY #60 tabs 05/09/25 Unknown Rx Allergy/AdvReac Type Severity Reaction Status Date / Time bee venom protein (honey bee) Allergy Unknown UNKNOWN Verified 05/14/25 07:13 propoxyphene (From Allergy Unknown UNKNOWN Verified 05/14/25 07:13 Darvocet-N) codeine AdvReac Other Verified 05/14/25 07:13 Family History Mother Heart disease High cholesterol Osteoporosis CVA (cerebral vascular accident) Hypertension Father Hypertension Alcohol abuse Sister Asthma Hypertension Thyroid disorder Surgical History History of cataract extraction History of cardioversion (~07/15/22) History of total left knee replacement Status post surgical manipulation of ankle joint Status post total left knee replacement Social History household members: none Smoking Status: Never smoker alcohol intake: never substance use type: does not use what type of physical activity do you participate in: none ROS Constitutional Constitutional: Reports fatigue and weakness; Denies anorexia, change in weight, chills, fever(s), malaise, night sweats or other Eyes Eyes: Denies blurry vision, change in eye color, change in vision, discharge from eye(s), double vision, erythema, eye pain, loss of vision or other ENT HEENT: Reports abnormal hearing and hearing loss; Denies dysphagia, ear pain, epistaxis, headache(s), nasal congestion, nasal discharge, post nasal drip, sinus pressure, sore throat or other Cardiovascular Cardiovascular: Denies chest pain, claudication, dyspnea on exertion, edema, lightheadedness, orthopnea, palpitations, paroxysmal nocturnal dyspnea, rapid heart rate, syncope or other Respiratory/Chest Respiratory/Chest: Denies cough, dyspnea, excessive phlegm production, hemoptysis, productive cough, shortness of breath at rest, shortness of breath with exertion, wheezing or other Gastrointestinal Gastrointestinal: Reports loose stools; Denies abdominal pain, coffee ground emesis, constipation, diarrhea, dyspepsia, hematemesis, hematochezia, melena, nausea, vomiting or other Genitourinary Genitourinary: Reports burning urination and urinary frequency; Denies difficulty urinating, dysuria, hematuria, nocturia, urinary hesitancy, urinary incontinence, urinary urgency or other Musculoskeletal Musculoskeletal: Reports back pain and other Details: Ankle pain ; Denies arthralgias, joint pain, joint stiffness, joint swelling, myalgias or neck pain Neurologic Neurologic: Denies abnormal gait, abnormal speech, confusion, disequilibrium, dizziness, focal weakness, headache(s), numbness, paresthesias, seizure-like activity, seizures, syncope, tingling, tremor(s) or other Psychiatric Psychiatric: Denies anxiety, depression, homicidal ideation, suicidal ideation or other Endocrine Endocrinology: Reports polydipsia; Denies change in body appearance, cold intolerance, excessive sweating, heat intolerance, polyuria or other Hematologic/Lymphatic Hematologic/Lymphatic: Reports easy bleeding and easy bruising; Denies anemia, lymphadenopathy or other Allergic/Immunologic Allergic/Immunologic: Denies rhinitis, hives, eczemia, asthma or other Vital Signs Vital Signs Vital Signs: 05/14/25 07:09 05/14/25 07:14 05/14/25 09:28 Temperature 97.3 F L Temperature Source Temporal Pulse Rate 58 L 55 L Respiratory Rate 16 18 Respiratory Effort Normal Blood Pressure 104/86 H 108/69 Blood Pressure Mean 92 82 Pulse Ox 100 94 Oxygen Delivery Method Room Air Room Air 05/14/25 11:00 05/14/25 12:08 Temperature 98.6 F Temperature Source Pulse Rate 56 L 67 Respiratory Rate 16 Respiratory Effort Blood Pressure 119/81 H 94/60 Blood Pressure Mean 93 71 Pulse Ox 92 Oxygen Delivery Method Weight Weight: 77.61 kg Body Mass Index (BMI) 26.0 Physical Exam Const alert, oriented x3, no apparent distress, average body habitus, healthy appearing and well nourished Constitutional Narrative: Very pleasant, elderly, white female, sitting up in bed, appears younger than stated age, does not appear toxic, very pleasant General Appearance: cooperative HEENT normocephalic, head/scalp atraumatic and moist oral mucous membranes; Negative for hearing grossly normal bilaterally HEENT Narrative: Dentition is fair, Mallampati is 2, no thrush, mild hearing loss Eyes PERRL, EOMs intact bilaterally and conjunctivae normal Eyes Narrative: No scleral icterus Neck supple Neck Narrative: Trachea midline, no thyroid enlargement, no lymphadenopathy Resp normal respiratory effort, no retractions, no use of accessory muscles and clear to auscultation bilaterally Auscultation: Negative for rales, rhonchi or wheezes Cardio regular rate, S1 normal heart sound, S2 normal heart sound, no murmurs, no rub, no gallops and no clicks; Negative for regular rhythm Cardio Narrative: Irregularly irregular rhythm with good rate control-mildly bradycardic GI normal to inspection, nondistended, normoactive bowel sounds, soft to palpation and non-tender Extremity Extremity Narrative: Trace bilateral lower extremity edema with no clubbing or cyanosis Skin no jaundice, no petechiae and no mottling Skin Narrative: Scattered ecchymotic changes on bilateral upper extremities/lower extremities in various stages of healing, no significant open wounds Neuro CN's II-XII intact bilaterally, moves all extremities and no focal motor deficits Speech: speech normal Psych affect normal Psych Narrative: Extremely pleasant, makes good eye contact, patient interacts appropriately Results Lab / Micro Data 05/14/25 07:40 05/14/25 07:40 Labs: Laboratory Results - last 24 hr 05/14/25 07:40: WBC 4.2 L, RBC 4.86, Hgb 14.1, Hct 42.2, MCV 86.8, MCH 29.0, MCHC 33.4, RDW Std Deviation 61.0 H, RDW Coeff of Payal 20.3 H, Plt Count 151, MPV 9.6, Immature Gran % (Auto) 0.500, Neut % (Auto) 71.0 H, Lymph % (Auto) 13.3 L, [place] % (Auto) 14.5 H, Eos % (Auto) 0.2, Baso % (Auto) 0.5, Absolute Neuts (auto) 3.0, Absolute Lymphs (auto) 0.56 L, Nucleated RBC % 0, Anisocytosis 1+, Sodium 124 L, Potassium 3.6, Chloride 86 L, Carbon Dioxide 23.5, Anion Gap 14, BUN 34 H, Creatinine 1.55 H, Estim Creat Clear Calc 27.48 L, Est GFR (MDRD) Non-Af 32 L, BUN/Creatinine Ratio 21.7 H, Glucose 102 H, Calcium 9.0, Total Bilirubin 2.87 H, Direct Bilirubin 1.67 H, AST 61 H, ALT 29, Alkaline Phosphatase 143 H, Total Protein 6.4, Albumin 3.5, Globulin 2.8, Lipase 37 05/14/25 08:56: Urine Color Yellow, Urine Clarity Sl. Cloudy, Urine pH 7.0, Ur Specific [place] 1.010, Urine Protein 30 H, Urine Glucose (UA) 250 H, Urine Ketones Negative, Urine Occult Blood 10 H, Urine Nitrite Negative, Urine Bilirubin Negative, Urine Urobilinogen 4 H, Ur Leukocyte Esterase 500 H, Urine RBC 0 SEEN, Urine WBC 10-25 SEEN, Ur Squamous Epith Cells 10-25 SEEN, Ur Transition Epith Cell 0-5 SEEN, Urine Bacteria RARE, Urine Mucus 0 SEEN Imaging Radiology Impression Brain CT 05/14/25 07:50 IMPRESSION: Age-appropriate appearance of the brain. 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 Negative for acute intracranial pathology. Reading Location: [facility] Cervical Spine CT 05/14/25 07:50 IMPRESSION: Age-appropriate appearance of the brain. 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 Negative for acute intracranial pathology. Reading Location: [facility] Lumbar Spine CT 05/14/25 07:50 IMPRESSION: Old T12 compression fracture. Negative for acute abnormality of the lumbar spine. Reading Location: [facility] Ankle X-Ray 05/14/25 08:05 IMPRESSION: Previous orthopedic fixation of the ankle without residual or recurrent fracture Reading Location: [facility] Chest X-Ray 05/14/25 08:05 IMPRESSION: Cardiomegaly. Negative for acute cardiopulmonary disease. Reading Location: [facility] Pelvis X-Ray 05/14/25 08:05 IMPRESSION: Negative for acute abnormality of the pelvis. Reading Location: [facility] Assessment & Plan Assessment/Plan (1) Brain aneurysm: (2) Fall: (3) Hyponatremia: (4) Low-grade chronic hyperbilirubinemia: (5) Hypothyroidism: (6) Nonadherence to medication: PLAN: Plan Falls/Generalized Weakness - having falls at home...just a few - PT/OT consulted - TSH is 91 and I suspect this is the etiology for her falls and weakness - SW/CM consulted to assist with D/C planning patient may need home health versus temporary placement depending on functional status Hypoosmolar hyponatremia - Patient has had issues with hyponatremia lately - It looks like her levels have been between 130 and 133 for several months - Patient has not been compliant with her Synthroid and I suspect this is likely the etiology - Uric acid is up so may have somewhat of a component of SIADH - TSH was 91 and I suspect this is the etiology - Urine sodium is 35 on diuretics -Urine osmolality was pending - will fluid restrict to 1500 cc daily - continue Lasix and Aldactone for now - Repeat sodium in a.m. - Patient is asymptomatic other than having generalized weakness Acute on chronic hypothyroidism secondary to medication nonadherence - Patient is to be on levothyroxine 112 mcg daily - Per discussion with patient she has not been compliant with her Synthroid - Will give one-time dose IV levothyroxine and start her home Synthroid dose tomorrow - Recheck free T4 in 48 hours - Will need outpatient follow-up for repeat TSH in 6 to 8 weeks - Suspect this is the etiology for most of her symptoms E. coli UTI - Culture sent from facility on 05/09/2025 - Presumptive E. coli at infectious levels - Will start Keflex 500 p.o. 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 Lopez - Recommended follow-up within a week to 2 after discharge for evaluation no acute intervention needed Chronic hyperbilirubinemia - At baseline Chronic RV dilation/chronic HFrEF/HPL/essential hypertension - Patient previously with reduced EF however most recent echocardiogram showed improved EF to 57% - Continue home atorvastatin - Continue home Farxiga - continue home Lasix 40 twice daily - continue home metoprolol 100 mg twice daily - continue home Aldactone 50 mg daily - Continue ongoing outpatient follow-up with cardiology - Does have some mild bilateral lower extremity edema which she says is worse than typical however her TSH is off and I suspect it is related to this - Continue to monitor clinically Persistent atrial fibrillation - Continue home metoprolol - Continue on apixaban Osteoporosis - Restart alendronate at discharge DVT prophylaxis - Continue home apixaban CODE STATUS - DNR CCA with no intubation per emergency department physician Charges/Coding Visit Charges Inpatient E&M: 98462 Init Hosp L3
[2025-05-14 13:25] LABS: CORTISOL AM 21.70 ug/dL (6.02-18.40)
[2025-05-14 13:27] LABS: Osmolality, Urine 302 mOsm/KG
[2025-05-14 15:43] LABS: Osmolality, Serum 279 mOsm/KG (280-301)
[2025-05-14 15:48] LABS: Uric Acid 6.2 mg/dL (2.6-6.0)
[2025-05-14] MEDS: 0.9% Saline Lock 10 ML Syringe IV (17:15)
[2025-05-14] MEDS: LEVOTHYROXINE SODIUM 100 MCG VIAL 75 MCG IV (17:16)
[2025-05-14] MEDS: APIXABAN 5 MG TABLET PO (21:31)
[2025-05-14] MEDS: Ensure Plus High Protein 120 ML LIQUID PO (22:13)
[2025-05-15] VITALS (7 sets, daily range): BP systolic 92–118; BP diastolic 46–79; PULSE 64–66; RESP 16–17; TEMP 36.6; O2SAT 93–100
[2025-05-15 06:46] LABS: Hematocrit 38.9 % (37-47); Hemoglobin 13.2 g/dL (12.0-15.0); Immature Granulocytes Count 0.030 X10^3/uL (0.0-0.0); Mean Corp Hgb Conc 33.9 g/dL (32-36); Mean Corpuscular Volume 85.7 fL (81-99); Mean Platelet Vol. 9.6 fl (6.2-12.0); NRBC Flagged by Analyzer 0 % (0-5); POSITIVE MORPHOLOGY YES; Platelet Count 146 K/mm3 (150-450); RBC Distribution Width CV 20.3 % (11.6-14.6); RBC Distribution Width SD 59.0 fl (35.1-43.9); Red Blood Count 4.54 M/mm3 (4.2-5.4); White Blood Count 4.2 K/mm3 (4.4-11.0)
[2025-05-15 06:47] LABS: Differential Indicated SCAN CRITERIA MET
[2025-05-15 07:11] LABS: Anisocytosis 2+; Differential Comment SCANNED
[2025-05-15 08:01] LABS: AST(SGOT) 52 U/L (<=31); Alanine Aminotransfer ALT/SGPT 26 U/L (<=34); Albumin, Serum 3.3 g/dL (3.4-4.8); Alkaline Phosphatase 128 U/L (35-104); Anion Gap 12 (5-15); BUN 35 mg/dL (4-19); BUN/Creat Ratio 25.1 RATIO (10-20); Calcium,Total 8.6 mg/dL (7.6-11.0); Carbon Dioxide 24.7 mmol/L (21.0-32.0); Chloride 89 mmol/L (98-108); Estimated Creatinine Clearance 27.82 ml/min (50-250); Globulin 2.3 g/dL (2.2-4.2); Glucose 82 mg/dL (70-99); Magnesium 2.5 mg/dL (1.5-2.2); Potassium 3.5 mmol/L (3.3-5.1)
[2025-05-15] MEDS: Ensure Plus High Protein 120 ML LIQUID PO (10:38)
[2025-05-15] MEDS: APIXABAN 5 MG TABLET PO ×2 (10:38→21:13)
--- NOTE | 2025-05-15 11:04 | CASEMGMT ---
LISBET SNOWDEN Assessment: Face to Face with pt for initial transition planning/care coordination assessment. LISBET SNOWDEN introduced self and role at [facility], pt voices understanding and consents to assessment. Pt is A&O x4 and answers all questions appropriately at this time. Pt is resting in bed in no distress. Care providers, pharmacy, and demographics verified/updated. Strata: 3 Admitting Dx: Generalized weakness/Hyponatremia/Falls PCP: Polina Specialists: RAMOS Preferred Pharmacy: [facility] Insurance: [facility] A&B, MMO Prescription Benefit: yes LNOK: Daughter, Tracee; Niece, Daria Living Arrangements: Pt lives alone in a 1 level home with no steps to enter. ADLs: Pt states she is I with ADLs and IADLs. Transportation: Pt was driving herself until recently, she went to [employer] in January and states she has not been able to regain her strength since then and has not been up to driving lately. DME: Walker, cane, shower bench. HHC/SNF: Previously at [facility], TCU and [facility] HHC. Pt requesting to go to TCU at time of DC. Pt states she lives alone and feels she needs to get therapy to get stronger again and does not feel safe returning home at this time. Pt denies wanting a list of local SNF's and is adamant about TCU. Pt states if insurance doesn't approve she is willing to pay out of pocket. LISBET SNOWDEN explained to Pt therapy will work with her and will give recommendation for DC planning. If it's appropriate, LISBET SNOWDEN will send a referral to see if TCU able to accept and submit to insurance for approval. Pt states no further concerns/needs. CM to follow. LISBET SNOWDEN gave report to CM on floor. Advised pt to ask CM if any further question/concerns/needs arise, voices understanding. Pt Goal: TCU Plan: TBD, Follow therapy recommendations. Michelle FRAUSTO CM
--- NOTE | 2025-05-15 13:07 | CASEMGMT ---
Social Work- SW met with pt to complete SDOH assessment. SW introduced self and role; pt agreeable to meeting. Pt reports that she has been unable to drive for the past three months due to feeling weak. Pt reports that she only leaves for dr appointments because she can't walk in stores. Pt reports that she has two friends who assist with transport regularly. Pt reports that she has tried to utilize [facility] transportation, but even scheduling weeks out has been unable to find availability for appointments. Pt reports she would like referral to TCU for skilled stay at discharge. SW provided education on referral process and reached out to therapy to notify of pt request/confirm that therapy would see pt today. SW remains available to follow for referral. PAULETTE Oconnor
--- NOTE | 2025-05-15 19:17 | PCM.PN.HOSP ---
Reason for Visit Chief Complaint: weakness and falls/ Subjective Subjective Patient was seen and examined today, she appears in no distress, she had family members in the room at the time of my examination. Patient stated that she would like to go to TCU if possible for short-term rehab services, she understands that her insurance may not approve this-patient has Medicare advantage plan. I ask her to think about an alternate place that she might want to go in case there was no bed available in TCU. Objective Data Objective Data Vital Signs: Vital Signs Temp Pulse Resp BP Pulse Ox O2 Del Method 97.9 F 66 17 95/65 97 Room Air 05/15/25 14:30 05/15/25 14:30 05/15/25 14:30 05/15/25 14:30 05/15/25 14:30 05/15/25 14:30 Oxygen Delivery Method Room Air Weight: 74.6 kg Body Mass Index (BMI) 25.0 Intake & Output: Intake and Output for Last 24 Hours 05/13/25 05/14/25 05/15/25 23:59 23:59 23:59 Intake Total 1500 / 1500 Balance 1500 / 1500 Lab / Micro Data 05/15/25 06:17 05/15/25 06:17 Labs: Laboratory Results - last 24 hr 05/15/25 06:17: WBC 4.2 L, RBC 4.54, Hgb 13.2, Hct 38.9, MCV 85.7, MCH 29.1, MCHC 33.9, RDW Std Deviation 59.0 H, RDW Coeff of Payal 20.3 H, Plt Count 146 L, MPV 9.6, Immature Gran % (Auto) 0.700, Neut % (Auto) 65.4, Lymph % (Auto) 15.3 L, [place] % (Auto) 18.1 H, Eos % (Auto) 0.0, Baso % (Auto) 0.5, Absolute Neuts (auto) 2.7, Absolute Lymphs (auto) 0.64 L, Nucleated RBC % 0, Differential Comment SCANNED, Anisocytosis 2+, Sodium 126 L, Potassium 3.5, Chloride 89 L, Carbon Dioxide 24.7, Anion Gap 12, BUN 35 H, Creatinine 1.41 H, Estim Creat Clear Calc 27.82 L, Est GFR (MDRD) Non-Af 36 L, BUN/Creatinine Ratio 25.1 H, Glucose 82, Calcium 8.6, Phosphorus 3.8, Magnesium 2.5 H, Total Bilirubin 2.12 H, AST 52 H, ALT 26, Alkaline Phosphatase 128 H, Total Protein 5.6 L, Albumin 3.3 L, Globulin 2.3, Albumin/Globulin Ratio 1.4 Physical Exam Const alert, oriented x3, no apparent distress and healthy appearing General Appearance: cooperative, well kempt and well developed Orientation / Consciousness: awake, oriented to person, oriented to place and oriented to time HEENT normocephalic and moist oral mucous membranes Eyes PERRL, EOMs intact bilaterally and conjunctivae normal Neck supple, no JVD, thyroid normal and no carotid bruits General: trachea midline Resp normal respiratory effort, no retractions, no use of accessory muscles and clear to auscultation bilaterally Auscultation: Negative for rales, rhonchi or wheezes Cardio S1 normal heart sound, S2 normal heart sound, no rub and no gallops Cardio Narrative: Heart rate and rhythm is irregular GI normal to inspection, nondistended, normoactive bowel sounds, soft to palpation, non-tender and non-distended Extremity Extremity Narrative: Patient has stasis dermatitis changes over both lower extremities, there is generalized edema noted over both lower legs General Extremity: edema bilateral lower extremity Skin Skin Narrative: Stasis dermatitis changes are noted over both lower legs Neuro oriented x3, CN's II-XII intact bilaterally, moves all extremities, no focal motor deficits and no sensory deficits noted Sensorium / Orientation: awake and alert Speech: speech normal Psych affect normal Assessment & Plan Assessment/Plan (1) Physical deconditioning: PLAN: Plan 1. Generalized weakness/physical deconditioning-PT and OT will continue to see the patient, she will need at least temporary placement in a [place] [facility] facility for inpatient rehab services #2 chronic atrial fibrillation-patient is on Eliquis and metoprolol #3 rate related cardiomyopathy-complicates care, management, recovery, and prognosis #4 hypothyroidism-patient is on levothyroxine #5 severe tricuspid regurg-complicates care, management, recovery, and prognosis #6 recent urinary tract infection-present on admission-patient will remain on Keflex for total of 5 days, urine culture as an outpatient showed E. coli, it is unknown whether the patient took all her medication-she had been prescribed Macrodantin #7 hyperlipidemia-patient is on a statin Total clinical time spent by myself addressing the patient's medical issues, reviewing all of her data, and collaborating with patient's care team: 35 minutes Charges/Coding Visit Charges Inpatient E&M: 58371 Subs Hosp L2
[2025-05-16 02:40] VITALS: BP 101/68; PULSE 68; RESP 16; TEMP 36.6; O2SAT 95
[2025-05-16 04:41] VITALS: BMI 24.9
--- NOTE | 2025-05-16 08:47 | CASEMGMT ---
Social Work Pt accepted in TCU, they will have a bed tomorrow. SW let pt know, pt expressed much appreciation to be able to go to TCU. Pt inquired about coverage, SW explained Medicare coverage for alf facility. Pt states understanding. SW inquired if she would like SW to call her daughter to let her know, pt states no, she will let her daughter know. SW will continue to follow for d/c to TCU tomorrow. HILARIO Nelson
[2025-05-16 10:00] VITALS: BP 110/67; PULSE 65; RESP 16; TEMP 36.4; O2SAT 97
[2025-05-16] MEDS: APIXABAN 5 MG TABLET PO ×2 (11:05→22:06)
[2025-05-16 11:30] VITALS: BP 110/67; PULSE 65
--- NOTE | 2025-05-16 14:43 | PCM.PN.HOSP ---
Reason for Visit Chief Complaint: weakness and falls/ Subjective Subjective Patient was seen and examined today, we are awaiting skilled placement for inpatient rehab services. I noted in the patient's medical record that she had an abdominal CT performed in January of this year which indicated she might have cirrhosis. Patient has no history of alcohol intake and she denies any history of liver disease. According to the medical record, patient does have a history of a cardiomyopathy which could be secondary to chronic atrial fib. Patient has no specific complaints today. Objective Data Objective Data Vital Signs: Vital Signs Temp Pulse Resp BP Pulse Ox O2 Del Method 97.5 F L 65 16 110/67 97 Room Air 05/16/25 10:00 05/16/25 11:30 05/16/25 10:00 05/16/25 11:30 05/16/25 10:00 05/16/25 10:42 Oxygen Delivery Method Room Air Weight: 74.5 kg Body Mass Index (BMI) 24.9 Intake & Output: Intake and Output for Last 24 Hours 05/14/25 05/15/25 05/16/25 23:59 23:59 23:59 Intake Total 1500 / 1500 Balance 1500 / 1500 Lab / Micro Data 05/15/25 06:17 05/15/25 06:17 Physical Exam Narrative alert, oriented x3, no apparent distress and healthy appearing General Appearance: cooperative, well kempt and well developed Orientation / Consciousness: awake, oriented to person, oriented to place and oriented to time HEENT normocephalic and moist oral mucous membranes Eyes PERRL, EOMs intact bilaterally and conjunctivae normal Neck supple, no JVD, thyroid normal and no carotid bruits General: trachea midline Resp normal respiratory effort, no retractions, no use of accessory muscles and clear to auscultation bilaterally Auscultation: Negative for rales, rhonchi or wheezes Cardio S1 normal heart sound, S2 normal heart sound, no rub and no gallops Cardio Narrative: Heart rate and rhythm is irregular GI normal to inspection, nondistended, normoactive bowel sounds, soft to palpation, non-tender and non-distended Extremity Extremity Narrative: Patient has stasis dermatitis changes over both lower extremities, there is generalized edema noted over both lower legs General Extremity: edema bilateral lower extremity Skin Skin Narrative: Stasis dermatitis changes are noted over both lower legs Neuro oriented x3, CN's II-XII intact bilaterally, moves all extremities, no focal motor deficits and no sensory deficits noted Sensorium / Orientation: awake and alert Speech: speech normal Psych affect normal Assessment & Plan Assessment/Plan (1) Physical deconditioning: PLAN: Plan 1. Generalized weakness/physical deconditioning-PT and OT will continue to see the patient, she will need at least temporary placement in a fpc facility for inpatient rehab services #2 chronic atrial fibrillation-patient is on Eliquis and metoprolol #3 rate related cardiomyopathy-complicates care, management, recovery, and prognosis #4 hypothyroidism-patient is on levothyroxine #5 severe tricuspid regurg-complicates care, management, recovery, and prognosis #6 recent urinary tract infection-present on admission-patient will remain on Keflex for total of 5 days, urine culture as an outpatient showed E. coli, it is unknown whether the patient took all her medication-she had been prescribed Macrodantin #7 hyperlipidemia-patient is on a statin Total clinical time spent by myself addressing the patient's medical issues, reviewing all of her data, and collaborating with patient's care team: 35 minutes Charges/Coding Visit Charges Inpatient E&M: 18416 Subs Hosp L2
[2025-05-16 15:59] VITALS: BP 95/55; PULSE 62; RESP 16; TEMP 36.6; O2SAT 98
[2025-05-16 21:57] VITALS: BP 104/66; PULSE 67; RESP 16; TEMP 36.4; O2SAT 98
[2025-05-16 22:06] VITALS: BP 104/66; PULSE 67
[2025-05-17 05:25] VITALS: BP 103/58; PULSE 61; RESP 18; TEMP 36.3; O2SAT 96
[2025-05-17 06:00] VITALS: BMI 25.2
[2025-05-17 07:46] VITALS: O2SAT 92
[2025-05-17 09:06] VITALS: BP 94/66; PULSE 67
[2025-05-17] MEDS: APIXABAN 5 MG TABLET PO (09:06)
[2025-05-17 09:17] VITALS: BP 94/66; PULSE 67; RESP 16; TEMP 36.6; O2SAT 95
[2025-05-17 11:42] VITALS: BP 87/63
[2025-05-17 16:22] VITALS: BP 101/74; PULSE 68; RESP 16; TEMP 36.4; O2SAT 97
--- NOTE | 2025-05-17 16:50 | TREXTCAR_ITS ---
Diet Diet Order/Speech Therapy: INPATIENT Hospital Diet / Speech Therapy Order(s) 05/14/25 13:35 Diet: Regular - General Food consistency:: Regular Liquid Consistency:: Regular/Thin Type of Dietary Supplement:: Ensure Plus High Protein Fluid restriction:: 1500 mL Diet Comments: 120 sterling EPHP tid w/ meals; vanilla magic cup w/ dinner Routine Orders/Code Status Code Status: DNRCC-A (No intubation) DC O2, CPAP, BIPAP needs Home O2 Discharge instructions: No Wound(s) back of head: Wound Type: Hematoma back/bottom: Wound Type: Abrasion Therapies Weight Bearing: Full weight bearing Physical Therapy: Eval and Treat Occupational Therapy: Eval and Treat Problem/Diagnosis (1) Physical deconditioning: Status: Acute Code(s): R53.81 - Other malaise Plan 1. Generalized weakness/physical deconditioning-PT and OT will continue to see the patient, she will need at least temporary placement in a fpc facility for inpatient rehab services #2 chronic atrial fibrillation-patient is on Eliquis and metoprolol #3 rate related cardiomyopathy-complicates care, management, recovery, and prognosis #4 hypothyroidism-patient is on levothyroxine #5 severe tricuspid regurg-complicates care, management, recovery, and prognosis #6 recent urinary tract infection-present on admission-patient will remain on Keflex for total of 5 days, urine culture as an outpatient showed E. coli, it is unknown whether the patient took all her medication-she had been prescribed Macrodantin #7 hyperlipidemia-patient is on a statin Total clinical time spent by myself addressing the patient's medical issues, reviewing all of her data, and collaborating with patient's care team: 35 minutes Allergies/Procedures Done in Hospital Allergies bee venom protein (honey bee) Allergy (Unknown, Verified 05/14/25 07:13) UNKNOWN propoxyphene (From Darvocet-N) Allergy (Unknown, Verified 05/14/25 07:13) UNKNOWN codeine Adverse Reaction (Verified 05/14/25 07:13) Other Procedures: None Type of Care/Length of Stay Estimated LOS: Convalescent Care Less Than 30 days Type of Care Needed: Skilled Rehab Potential: Good Prognosis: Good Additional Orders/Day of Discharge H&P will serve as current which was dated: 05/14/25 Day of Discharge: 05/17/25 Dietary and Speech Recommendations Dietitian Recommendations/Changes: Continue Regular diet w/ FR per MD order Adjust ONS per pt request - EPHP tid w/ meals and magic cup w/ dinner instead of EPHP 4x/day w/ medpass Continue to follow and monitor for changes in res nutritional status and make additional rec as indicated Discharge Plan Admission Admit Date/Time: 05/14/25 12:50 Primary Reason for Your Visit: Debility, cardiomyopathy secondary to atrial fibrillation Attending Provider: Tyelr Dueñas Primary Care Provider: Agnieszka Fish Consulting Providers: Fabiana Anderson Instructions Patient Instructions: Types of Brain Aneurysms, Diagnosing a Brain Aneurysm Additional Instructions / Restrictions: 1. You are found to have an aneurysm in your brain as discussed on admission. Your aneurysm was discussed with a neurosurgeon over at [facility]. Please call as soon as possible after discharge and ask for an appointment with Dr. Lopez for your brain aneurysm that was found during hospitalization at [facility]. Discharge Orders/Prescriptions Prescriptions: New furosemide 40 mg Tablet 40 mg PO DAILY Qty: 0 0RF acetaminophen 500 mg Tablet 1,000 mg PO Q8 Qty: 1 0RF cephalexin 500 mg Capsule 500 mg PO Q12 Qty: 0 0RF Rx Instructions: Continue for a total of 7 doses starting the evening of 05/17/2025 Eliquis 5 mg Tablet 5 mg PO BID Qty: 0 0RF Jardiance 25 mg Tablet 25 mg PO DAILY Qty: 0 0RF melatonin 10 mg Tablet,Disintegrating 10 mg PO QHS PRN PRN (Reason: Insomnia) Qty: 0 0RF spironolactone 50 mg Tablet 25 mg PO DAILY Qty: 0 0RF metoprolol tartrate 75 mg tablet 75 mg PO BID Qty: 1 0RF Continued atorvastatin 20 mg tablet 20 mg PO QHS Qty: 90 3RF alendronate 70 mg tablet See Rx Instructions .ROUTE .COMPLEX Qty: 14 0RF Dose Instruction: TAKE 1 TABLET BY MOUTH EVERY WEEK Patient Comments: has been unfaithful to it Rx Instructions: TAKE 1 TABLET BY MOUTH EVERY WEEK (DME) Handicap Placard See Rx Instructions .ROUTE .MEDSUPPLY Qty: 1 0RF Rx Instructions: As directed, length of time 3 years levothyroxine 112 mcg tablet See Rx Instructions .ROUTE .COMPLEX Qty: 90 3RF Dose Instruction: TAKE 1 TABLET BY MOUTH DAILY for FOR THYROID Rx Instructions: TAKE 1 TABLET BY MOUTH DAILY for FOR THYROID Discontinued nitrofurantoin monohyd/m-cryst [Macrobid] 100 mg capsule 100 mg PO Q12H 7 Days Qty: 14 0RF Rx Instructions: must administer with a meal/food acetaminophen 500 mg Tablet 1,000 mg PO Q6H PRN PRN (Reason: Pain Score 1-5) Qty: 0 0RF dapagliflozin propanediol [Farxiga] 10 mg tablet 10 mg PO QAM Qty: 30 11RF Eliquis 5 mg tablet 5 mg PO .COMPLEX Qty: 200 3RF Rx Instructions: 5 mg orally twice a day: Fax to [facility] : ; metoprolol tartrate 100 mg tablet 100 mg PO Q12H Qty: 180 3RF furosemide 40 mg tablet 40 mg PO BID Qty: 180 3RF spironolactone 25 mg tablet 50 mg PO DAILY Qty: 60 11RF Patient Comments: taking this pt is unsure of the dose and frequency Referrals / Follow Up: Dr. Doris Real [Other] - As soon as possible Problems: Brain aneurysm Agnieszka Fish MD [Primary Care Provider, Internal Medicine] - As soon as possible Disposition Disposition (needs filled in before D/C Order can be placed): Assisted Facility
--- NOTE | 2025-05-17 17:02 | DS.PCM_ITS ---
Providers Date of Admission: 05/14/25 Date of Discharge: 05/17/25 Primary Care Physician: Dr. Agnieszka Fish MD Reason For Visit: GENERALIZED WEAKNESS/HYPONATREMIA/FALLS Diagnosis Discharge Diagnosis (1) Physical deconditioning: Status: Acute Code(s): R53.81 - Other malaise Plan 1. Generalized weakness/physical deconditioning-PT and OT will continue to see the patient, she will need at least temporary placement in a [place] [facility] facility for inpatient rehab services #2 chronic atrial fibrillation-patient is on Eliquis and metoprolol #3 rate related cardiomyopathy-complicates care, management, recovery, and prognosis #4 hypothyroidism-patient is on levothyroxine #5 severe tricuspid regurg-complicates care, management, recovery, and prognosis #6 recent urinary tract infection-present on admission-patient will remain on Keflex for total of 5 days, urine culture as an outpatient showed E. coli, it is unknown whether the patient took all her medication-she had been prescribed Macrodantin #7 hyperlipidemia-patient is on a statin Total clinical time spent by myself addressing the patient's medical issues, reviewing all of her data, and collaborating with patient's care team: 35 minutes Medications at Discharge Home Medications atorvastatin 20 mg tablet 20 mg PO QHS CHOLESTEROL #90 tabs 06/16/24 alendronate 70 mg tablet See Rx Instructions .Route .COMPLEX #14 tabs 06/21/24 Handicap Placard #1 ea 08/15/24 levothyroxine 112 mcg tablet See Rx Instructions .Route .COMPLEX #90 tabs 09/26/24 acetaminophen 500 mg tablet 1,000 mg (2 x 500 mg) PO Q8 #1 TAB 05/17/25 apixaban 5 mg tablet (Eliquis) 5 mg PO BID #0 tabs 05/17/25 cephalexin 500 mg capsule 500 mg PO Q12 #0 caps 05/17/25 empagliflozin 25 mg tablet (Jardiance) 25 mg PO DAILY #0 tabs 05/17/25 furosemide 40 mg tablet 40 mg PO DAILY #0 tabs 05/17/25 melatonin 10 mg disintegrating tablet 10 mg PO QHS PRN PRN Insomnia #0 tabs 05/17/25 metoprolol tartrate 75 mg tablet 75 mg PO BID #1 TAB 05/17/25 spironolactone 50 mg tablet 25 mg (1/2 x 50 mg) PO DAILY #0 tabs 05/17/25 Hospital Course Operations None Procedures None Summary of Care Provided Minutes Spent on Discharge: 32 Hospital Course: This 89-year-old white female was seen in the emergency room at [facility] with a chief complaint of mechanical falls at home and generalized weakness. She had been evaluated for urinary tract infection as an outpatient was placed on Macrobid. Review of medical record here showed a urine culture with presumptive E. coli that was dated 05/09/2025. Workup in the emergency room included a chest x-ray which was unremarkable, CT of the brain was unremarkable for acute findings but did show evidence of an ANUSHA aneurysm. BUN was elevated at 34 and creatinine was 1.55 which was consistent with her baseline. Emergency room physician was initially planning on sending the patient home however she appeared to be impaired as far as her walking was concerned and the hospitalist service was called for admission. Emergency room physician did have a conversation with a neurosurgeon at [facility] and he recommended outpatient follow-up for her aneurysm. Patient was admitted to [place] [address] and seen by PT and OT, it was felt that she would benefit from inpatient skilled services and TCU agreed to take the patient. On 05/17/2025, patient was seen and examined:alert, oriented x3, no apparent distress and healthy appearing General Appearance: cooperative, well kempt and well developed Orientation / Consciousness: awake, oriented to person, oriented to place and oriented to time HEENT normocephalic and moist oral mucous membranes Eyes PERRL, EOMs intact bilaterally and conjunctivae normal Neck supple, no JVD, thyroid normal and no carotid bruits General: trachea midline Resp normal respiratory effort, no retractions, no use of accessory muscles and clear to auscultation bilaterally Auscultation: Negative for rales, rhonchi or wheezes Cardio S1 normal heart sound, S2 normal heart sound, no rub and no gallops Cardio Narrative: Heart rate and rhythm is irregular GI normal to inspection, nondistended, normoactive bowel sounds, soft to palpation, non-tender and non-distended Extremity Extremity Narrative: Patient has stasis dermatitis changes over both lower extremities, there is generalized edema noted over both lower legs General Extremity: edema bilateral lower extremity Skin Skin Narrative: Stasis dermatitis changes are noted over both lower legs Neuro oriented x3, CN's II-XII intact bilaterally, moves all extremities, no focal motor deficits and no sensory deficits noted Sensorium / Orientation: awake and alert Speech: speech normal Psych affect normal Patient was transferred to TCU on 05/17/2025 in stable condition Weight / BMI Weight Weight: 75.5 kg Body Mass Index (BMI) 25.2 ABG / Lab / Microbiology Data 05/15/25 06:17 05/15/25 06:17 Laboratory: Laboratory Results - last 24 hr 05/17/25 06:22: Free T4 0.70 L D/C Instructions DC O2, CPAP, BIPAP Needs Home O2 Discharge instructions: No Meaningful Use Info Meaningful Use Meaningful Use Diagnoses (Choose all that apply): None applicable Discharge Plan Admission Admit Date/Time: 05/14/25 12:50 Primary Reason for Your Visit: Debility, cardiomyopathy secondary to atrial fibrillation Attending Provider: Tyler Dueñas Primary Care Provider: Agnieszka Fish Consulting Providers: Fabiana Anderson Instructions Patient Instructions: Types of Brain Aneurysms, Diagnosing a Brain Aneurysm Additional Instructions / Restrictions: 1. You are found to have an aneurysm in your brain as discussed on admission. Your aneurysm was discussed with a neurosurgeon over at [facility]. Please call as soon as possible after discharge and ask for an appointment with Dr. Lopez for your brain aneurysm that was found during hospitalization at [facility]. Discharge Orders/Prescriptions Prescriptions: New furosemide 40 mg Tablet 40 mg PO DAILY Qty: 0 0RF acetaminophen 500 mg Tablet 1,000 mg PO Q8 Qty: 1 0RF cephalexin 500 mg Capsule 500 mg PO Q12 Qty: 0 0RF Rx Instructions: Continue for a total of 7 doses starting the evening of 05/17/2025 Eliquis 5 mg Tablet 5 mg PO BID Qty: 0 0RF Jardiance 25 mg Tablet 25 mg PO DAILY Qty: 0 0RF melatonin 10 mg Tablet,Disintegrating 10 mg PO QHS PRN PRN (Reason: Insomnia) Qty: 0 0RF spironolactone 50 mg Tablet 25 mg PO DAILY Qty: 0 0RF metoprolol tartrate 75 mg tablet 75 mg PO BID Qty: 1 0RF Continued atorvastatin 20 mg tablet 20 mg PO QHS Qty: 90 3RF alendronate 70 mg tablet See Rx Instructions .ROUTE .COMPLEX Qty: 14 0RF Dose Instruction: TAKE 1 TABLET BY MOUTH EVERY WEEK Patient Comments: has been unfaithful to it Rx Instructions: TAKE 1 TABLET BY MOUTH EVERY WEEK (DME) Handicap Placard See Rx Instructions .ROUTE .MEDSUPPLY Qty: 1 0RF Rx Instructions: As directed, length of time 3 years levothyroxine 112 mcg tablet See Rx Instructions .ROUTE .COMPLEX Qty: 90 3RF Dose Instruction: TAKE 1 TABLET BY MOUTH DAILY for FOR THYROID Rx Instructions: TAKE 1 TABLET BY MOUTH DAILY for FOR THYROID Discontinued nitrofurantoin monohyd/m-cryst [Macrobid] 100 mg capsule 100 mg PO Q12H 7 Days Qty: 14 0RF Rx Instructions: must administer with a meal/food acetaminophen 500 mg Tablet 1,000 mg PO Q6H PRN PRN (Reason: Pain Score 1-5) Qty: 0 0RF dapagliflozin propanediol [Farxiga] 10 mg tablet 10 mg PO QAM Qty: 30 11RF Eliquis 5 mg tablet 5 mg PO .COMPLEX Qty: 200 3RF Rx Instructions: 5 mg orally twice a day: Fax to [facility] : ; metoprolol tartrate 100 mg tablet 100 mg PO Q12H Qty: 180 3RF furosemide 40 mg tablet 40 mg PO BID Qty: 180 3RF spironolactone 25 mg tablet 50 mg PO DAILY Qty: 60 11RF Patient Comments: taking this pt is unsure of the dose and frequency Referrals / Follow Up: Dr. Doris Real [Other] - As soon as possible Problems: Brain aneurysm Agnieszka Fish MD [Primary Care Provider, Internal Medicine] - As soon as possible Disposition Disposition (needs filled in before D/C Order can be placed): [facility] Facility Charges/Coding Visit Charges Inpatient E&M: 03211 Disch Hosp >30min
--- NOTE | 2025-05-17 17:19 | PHA.DC.MR.R ---
Pharmacy [facility] Med Reconciliation Pharmacy Service has performed discharge medication reconciliation for this patient. The patient's discharge medication list was reviewed for discrepancies and discrepancies were resolved. Medications at Discharge Home Medications atorvastatin 20 mg tablet 20 mg PO QHS CHOLESTEROL #90 tabs 06/16/24 alendronate 70 mg tablet See Rx Instructions .Route .COMPLEX #14 tabs 06/21/24 Handicap Placard #1 ea 08/15/24 levothyroxine 112 mcg tablet See Rx Instructions .Route .COMPLEX #90 tabs 09/26/24 acetaminophen 500 mg tablet 1,000 mg (2 x 500 mg) PO Q8 #1 TAB 05/17/25 apixaban 5 mg tablet (Eliquis) 5 mg PO BID #0 tabs 05/17/25 cephalexin 500 mg capsule 500 mg PO Q12 #0 caps 05/17/25 empagliflozin 25 mg tablet (Jardiance) 25 mg PO DAILY #0 tabs 05/17/25 furosemide 40 mg tablet 40 mg PO DAILY #0 tabs 05/17/25 melatonin 10 mg disintegrating tablet 10 mg PO QHS PRN PRN Insomnia #0 tabs 05/17/25 metoprolol tartrate 75 mg tablet 75 mg PO BID #1 TAB 05/17/25 spironolactone 50 mg tablet 25 mg (1/2 x 50 mg) PO DAILY #0 tabs 05/17/25
== END 2025-05-17 17:50 | disposition skilled nursing facility (03) | DRG 92 ==
LOC: ED 12:50 → MS3 13:20
PROVIDERS: Admitting Provider Internal Medicine; Emergency Provider Student in an Organized Health Care Education/Training Program; PCP Internal Medicine; Visit Provider Internal Medicine
DX: R29.6 Repeated falls (principal); I42.9 Cardiomyopathy, unspecified; E87.1 Hypo-osmolality and hyponatremia; I48.20 Chronic atrial fibrillation, unspecified; I13.0 Hypertensive heart and chronic kidney disease with heart failure and stage 1 through stage 4 chronic kidney disease, or unspecified chronic kidney disease; I50.42 Chronic combined systolic (congestive) and diastolic (congestive) heart failure; N39.0 Urinary tract infection, site not specified; I67.1 Cerebral aneurysm, nonruptured; Z66 Do not resuscitate; N18.30 Chronic kidney disease, stage 3 unspecified; E03.9 Hypothyroidism, unspecified; I07.1 Rheumatic tricuspid insufficiency; S93.401A Sprain of unspecified ligament of right ankle, initial encounter; E78.00 Pure hypercholesterolemia, unspecified; E80.6 Other disorders of bilirubin metabolism; W18.39XA Other fall on same level, initial encounter; B96.20 Unspecified Escherichia coli [E. coli] as the cause of diseases classified elsewhere; Z91.148 Patient's other noncompliance with medication regimen for other reason; Z79.01 Long term (current) use of anticoagulants; R74.01 Elevation of levels of liver transaminase levels; Z79.899 Other long term (current) drug therapy; Z79.890 Hormone replacement therapy; Z79.84 Long term (current) use of oral hypoglycemic drugs; Z98.49 Cataract extraction status, unspecified eye; Z96.652 Presence of left artificial knee joint; Y93.01 Activity, walking, marching and hiking
CPT/HCPCS: 36415; 70450; 71046; 72125; 72131; 72170; 73610; 80048; 80053; 80076; 81001; 82533; 83690; 83735; 83930; 83935; 84100; 84300; 84439; 84443; 84550; 85025; 93005; 94668; 97162; 97166; 97530; 97535; 99285; P9612; A4216

== ENCOUNTER 2025-05-17 18:13 | Inpatient (IN) | payer MEDICARE, OTHER, SELFPAY ==
[2025-05-17 18:20] VITALS: BP 90/44; PULSE 84; RESP 18; TEMP 35.9; O2SAT 98
--- OUTSIDE RECORDS SUMMARY | 2025-05-17 18:20 | XMS RPT_ITS | CCD ---
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 Radha Fish Primary Care Provider [phone] 0) Polina, Dr. Aaron Referring Provider [phone] Dr. Kash Babin Attending Provider 1(330) Prema FLORES PA Eun Gee Attending Provider Dr. Radha Fish Attending Provider [phone])2 Dr. Radha Fish Primary Care Provider 1(33 0) Dr. Radha Fish Referring Provider [phone])2 Dr. Kash Babin Attending Provider [phone] Dr. Radha Fish Primary Care Provider 1(33 0) Dr. Radha Fish Referring Provider [phone])2 Dr. Radha Fish Primary Care Provider 1(33 0) Dr. Radha Fish Attending Provider [phone])2 Dr. Radha Fish Referring Provider [phone] SANDRA Sequeira Attending Provider Dr. Radha Fish Primary Care Provider 1(33 0) Dr. Radha Fish Referring Provider [phone])2 SANDRA Sequeira Attending Provider Dr. Sheldon Huntley Attending Provider [phone] SANDRA Crandall Attending Provider Unavail beatriz Pillai CABLE STRETCHER AND TESTER, CABLE STRETCHER AND TESTER-C Tammie Referring Provider Dr. Kash Babin Attending Provider 1(330) Dr. Kash Babin Referring Provider 1(330) Dr. Kash Babin Other Provider [phone] Dr. Casey Rod Attending Provider [phone] Dr. Radha Fish Attending Provider [phone])2 Dr. Radha Fish Primary Care Provider 1(33 0) Dr. Radha Fish Referring Provider [phone])2 Wendy CABLE STRETCHER AND TESTER, CABLE STRETCHER AND TESTER-C Tyler Attending Provider 1(330) Dr. Radha Fish Primary Care Provider 1(33 0) Dr. Radha Fish Referring Provider [phone])2 Dr. Kash Babin Attending Provider 1(330) Dr. Kash Babin Referring Provider 1(330) Dr. Kash Babin Other Provider [phone] Dr. Casey Rod Attending Provider [phone] Dr. Radha Fish Attending Provider [phone])2 Wendy CABLE STRETCHER AND TESTER, CABLE STRETCHER AND TESTER-C Tyler Attending Provider 1(330) SANDRA Sequeira Attending Provider Dr. Radha Fish Primary Care Provider 1(33 0) Dr. Radha Fish Referring Provider [phone])2 Dr. Michael Salvador Attending Provider [phone] Dr. Radha Fish Primary Care Provider 1(33 0) Dr. Radha Fish Referring Provider [phone])2 Dr. Radha Fish Attending Provider [phone])2 Dr. Radha Fish Primary Care Provider 1(33 0) Dr. Radha Fish Referring Provider [phone])2 SANDRA Sequeira Attending Provider Dr. Radha Fish Primary Care Provider 1(33 0) Polina, Dr. Aaron Referring Provider [phone])2 Polina, Dr. Aaron Primary Care Provider 1(33 0) Polina, Dr. Aaron Attending Provider [phone])2 Polina, Dr. Aaron Referring Provider [phone])2 SANDRA Sequeira Attending Provider Dr. Michael Salvador Attending Provider [phone] Dr. Radha Fish Primary Care Provider 1(33 0) Dr. Radha Fish Attending Provider [phone])2 Dr. Radha Fish Referring Provider [phone])2 SANDRA Sequeira Attending Provider Dr. Michael Salvador Attending Provider 1(330)- Dr. Michael Salvador Referring Provider [phone] Dr. Radha Fish Primary Care Provider 1(33 0) Dr. Radha Fish Referring Provider [phone])2 SANDRA Sequeira Attending Provider SANDRA Sequeira Referring Provider SANDRA Sequeira Other Provider 1(33 0) Dr. Casey Rod Attending Provider Srinath Alba Unavailable Modesto KIM, Michael Nicole Unavailable Danny Edmond MD Unavailable Radha Fish MD Primary Care Provider 1(3 30) Radha Fish MD Primary Care Provider 1(3 30) Polina KIM, Dr. Aaron Primary Care Provider Eun Sequeira Attending Provider [phone] Eun Sequeira Referring Provider 1(33 0) Polina KIM, Dr. Aaron Attending Provider 1(33 0) Polina KIM, Dr. Aaron Referring Provider 1(33 0) Dr. Radha Fish MD Primary Care Provider Eun Sequeira Attending Provider 1(33 0) Eun Sequeira Referring Provider 1(33 0) Dr. Radha Fish MD Referring Provider 1(33 0) Dr. Radha Fish MD Primary Care Provider Eun Sequeira Attending Provider 1(33 0) Eun Sequeira Referring Provider [phone] Tammie Neff Attending Provider [phone] Tammie Neff Referring Provider [phone] Dr. Car Solomon DO Emergency Provider LISA FISH Attending Unavaila ble RADHA FISH Primary Care Unavailable BRINA IIARNOLDO Admitting Unavailable ADELIA SAGASTUME Consulting Unavailable Polina KIM, Dr. Aaron Primary Care Provider Dr. Radha Fish MD Referring Provider 1(33 0) Eun Sequeira Attending Provider Eun Seqeuira Referring Provider Tammie Neff Attending Provider Tammie Neff Referring Provider Neha MUNGUIA, Dr. Yoon Attending Provider Dr. Car Solomon DO Emergency Provider Polina KIM, Dr. Aaron Attending Provider [phone] Ungerer CABLE STRETCHER AND TESTER-C, Carla Attending Provider [phone] Polina KIM, Dr. Aaron Primary Care Provider Eun Sequeira Attending Provider [phone] Polina KIM, Dr. Aaron Referring Provider 1(33 0) Polina KIM, Dr. Aaron Primary Care Provider Eun Sequeira Attending Provider [phone] Eun Sequeira Referring Provider [phone] Tarar CABLE STRETCHER AND TESTER-C, Carla Referring Provider [phone] Polina KIM, Dr. Aaron Primary Care Provider Eun Sequeira Attending Provider Eun Sequeira Referring Provider Anju CABLE STRETCHER AND TESTER-CDheeraj Attending Provider Anju CABLE STRETCHER AND TESTER-CDheeraj Attending Provider Dr. Radha Fish MD Primary Care Physician Eun Sequeira Attending Physician Tammie Neff Attending Physician Dr. Car Solomon DO Attending Physician Dr. Car Solomon DO Emergency Department Physic manuel Polina KIM, Dr. Aaron Attending Physician Ungerer CABLE STRETCHER AND TESTER-C, Carla Attending Physician Roof Dheeraj YARBROUGH Attending Physician [phone] Polina KIM, Dr. Aaron Primary Care Physician Eun Sequeira Attending Physician [phone] Polina KIM, Dr. Aaron Referring Provider [phone] Oleghe, Efewongbe Primary Care Unavailable Eun Sequeira Attending Unavail able Eun Sequeira Referring Unavail able Oleghe, Efewongbe Primary Care Unavailable Eun Sequeira Referring Unavail able Eun Sequeira Attending Unavail able Oleghe, Efewongbe Primary Care Unavailable Eun Sequeira Referring Unavail able Eun Sequeira Attending Unavail able Oleghe, Efewongbe Primary Care Unavailable Oleghe, Efewongbe Referring Unavailable Oleghe, Efewongbe Attending Unavailable Oleghe, Efewongbe Primary Care Unavailable Eun Sequeira Attending Unavail able Eun Sequeira Referring Unavail able Oleghe, Efewongbe Attending Unavailable Oleghe, Efewongbe Referring Unavailable Oleghe, Efewongbe Primary Care Unavailable Fabiana Anderson Admitting Unavailable Fabiana Anderson Consulting Unavailable Oleghe, Efewongbe Primary Care Unavailable Tyler Dueñas Attending Unavailable Oleghe, Efewongbe Primary Care Unavailable Eun Sequeira Referring Unavail able Eun Sequeira Attending Unavail able Oleghe, Efewongbe Primary Care Unavailable Eun Sequeira Attending Unavail able Eun Sequeira Referring Unavail able Oleghe, Efewongbe Primary Care Unavailable Tammie Pillai NP Attending Unavailable Tammie Pillai NP Referring Unavailable Oleghe, Efewongbe Primary Care Unavailable Carla Coughlin Attending Unavailable UngererCarla Referring Unavailable Oleghe, Efewongbe Primary Care Unavailable Car Solomon Attending Unavailable Oleghe, Efewongbe Attending Unavailable Oleghe, Efewongbe Primary Care Unavailable Oleghe, Efewongbe Primary Care Unavailable Eun Sequeira Referring Unavail able Eun Sequeira Attending Unavail able Oleghe, Efewongbe Primary Care Unavailable Oleghe, Efewongbe Referring Unavailable Oleghe, Efewongbe Attending Unavailable Oleghe, Efewongbe Primary Care Unavailable Eun Sequeira Attending Unavail able Eun Sequeira Referring Unavail able Oleghe, Efewongbe Primary Care Unavailable Eun Sequeira Attending Unavail able Eun Sequeira Referring Unavail able Oleghe, Efewongbe Primary Care Unavailable Dheeraj Rene NP Attending Unavailable Oleghe, Efewongbe Primary Care Unavailable Eun Sequeira Attending Unavail able Eun Sequeira Referring Unavail able Oleghe, Efewongbe Attending Unavailable Oleghe, Efewongbe Primary Care Unavailable Oleghe, Efewongbe Referring Unavailable Oleghe, Efewongbe Primary Care Unavailable Eun Sequeira Referring Unavail able Eun Sequeira Attending Unavail able Oleghe, Efewongbe Primary Care Unavailable Oleghe, Efewongbe Referring Unavailable Oleghe, Efewongbe Attending Unavailable Oleghe, Efewongbe Primary Care Unavailable Eun Sequeira Referring Unavail able Eun Sequeira Attending Unavail able Fabiana Anderson Admitting Unavailable Oleghe, Efewongbe Primary Care Unavailable Tyler Dueñas Attending Unavailable Fabiana Anderson Consulting Unavailable Tyler Dueñas Consulting Unavailable Fabiana Anderson Attending Unavailable Oleghe, Efewongbe Primary Care Unavailable Oleghe, Efewongbe Referring Unavailable Eun Sequeira Attending Unavail able Oleghe, Efewongbe Primary Care Unavailable Oleghe, Efewongbe Referring Unavailable Eun Sequeira Attending Unavail able Oleghe, Efewongbe Primary Care Unavailable Oleghe, Efewongbe Referring Unavailable Eun Sequeira Attending Unavail able Carla Coughlin Attending Unavailable Oleghe, Efewongbe Primary Care Unavailable Oleghe, Efewongbe Referring Unavailable Oleghe, Efewongbe Attending Unavailable Oleghe, Efewongbe Referring Unavailable Oleghe, Efewongbe Primary Care Unavailable Ungerer, Carla Attending Unavailable Oleghe, Efewongbe Referring Unavailable Oleghe, Efewongbe Primary Care Unavailable Oleghe, Efewongbe Primary Care Unavailable Oleghe, Efewongbe Referring Unavailable Roof AMAYA, Dheeraj Noel Attending Unavailable Oleghe, Efewongbe Primary Care Unavailable Oleghe, Efewongbe Referring Unavailable Eun Sequeira Attending Unavail able Oleghe, Efewongbe Primary Care Unavailable Oleghe, Efewongbe Referring Unavailable Ungerer, Carla Attending Unavailable Oleghe, Efewongbe Primary Care Unavailable Eun Sequeira Referring Unavail able Eun Sequeira Attending Unavail able Oleghe, Efewongbe Primary Care Unavailable Ungerer, Carla Attending Unavailable Ungerer, Carla Referring Unavailable Allergies Allergy Classification Reported Allergen(s) Allergy Type Date of Onset Reaction(s) Facility (3 sources) Bee; Translations: [BEES] Propensity to adverse reactions (disorder) 5 [facility] Repository (20 sources) codeine; Translations: [CODEINE] Drug Allergy 5 Hives [facility] Repository (7 sources) PROPOXYPHENE N-ACETAMINOPHEN; Translations: [PROPOXYPHENE N-ACETAMINOPHEN] Propensity to adverse reactions (disorder) 5 Intolerance [facility] Repository (1 source) OTHER; Translations: [OTHER] Propensity to adverse reactions (disorder) [facility] Repository (20 sources) Propoxyphene Drug Allergy 2 UNKNOWN [facility] (20 sources) bee venom protein (honey bee) Allergy to substance 2 UNKNOWN [facility] (2 sources) Environmental [Other] Propensity to adverse reactions 5 [facility] (1 source) VENOM-HONEY BEE; Translations: [VENOM-HONEY BEE] Propensity to adverse reactions to drug (disorder) 5 [facility] Other [place] Repository (1 source) Propoxyphene Drug Allergy 5 [facility] Repository (1 source) bee venom protein (honey bee) Drug allergy (disorder) 5 [facility] Repository Medications Current Medications Medication Drug Class(es) [...] 2015 12:32pm apixaban 5 mg oral tablet (20 sources) Factor Xa Inhibitor Start: 02-09-2025 End: [...] Units by mouth once daily. 0 Active Compress.Stocking,Knee,Re g,Lrg (20 sources) Start: 0 Compress.Stocking,Knee,Re g,Lrg Active 0 .ROUTE .MEDSUPPLY 2 May 02, 2020 9:38am wear daily for venous insufficiency 20-30 mmHg Start: 05-02-2020 Compress.Stock ing,Knee,Reg,Lrg Active 0 .ROUTE .MEDSUPPLY May 01, 2020 11:00pm wear daily for venous insufficiency 20-30 mmHg Start: 05-02-2020 Compress.Stock ing,Knee,Reg,Lrg Active 0 .ROUTE .MEDSUPPLY May 02, 2020 12:00am wear daily for venous insufficiency 20-30 mmHg dapagliflozin 10 mg oral tablet (18 sources) Sodium-Glucose Cotransporter 2 Inhibitor Start: 11-15-2024 Folic Acid (1 source) take 400 ug by mouth once daily FOLIC ACID ORAL Take 400 mcg by mouth once daily. 0 Active Handicap Placard (20 sources) Start: 08-15-2024 Handicap Placard Active 0 .ROUTE .MEDSUPPLY 1 0 August 15, 2024 4:14pm Other reduced mobility As directed, length of time 3 years Start: 08-15-[address] Active 0 .ROUTE .MEDSUPPLY 1 August 15, 2024 4:14pm As directed, length of time 3 years Start: 10-08-[address] Active 0 .ROUTE .MEDSUPPLY 1 October 08, 2021 12:42pm As directed, length [...] .ROUTE .MEDSUPPLY 1 October 08, 2021 1:00am As directed, length of time 3 years Multivitamin 1 EACH tablet (6 sources) Start: [...] oral capsule (20 sources) Nitrofuran Antibacterial Start: 05-09-2025 Start: 04-09-2025 End: 04-12-2025 Start: 03-20-2025 End: 03-25-2025 Start: 05-25-2019 End: 06-14-2019 Brsli-6-HXK-EPA-Fish Oil (FISH OIL) 1,000 mg (120 mg-180 mg) cap (1 source) take 1 capsule by mouth twice daily Vaxga-0-WVR-EPA-Fish Oil (FISH OIL) 1,000 mg (120 mg-180 [...] SUPPLEMENT Start: 04-24-2015 take 1 capsule by [facility] once daily Vitamin B Comp And C [...] HOURS NEEDED as needed for Mild-Mod Pain () 90 0 May 09, 2015 12:00am May [...] tablet Discontinued 100 mg PO DAILY 45 3 March 27, 2023 12:58pm July 21, 2023 [...] tablet Discontinued 10 mg PO DAILY 90 3 March 01, 2021 11:15am September 03, 2021 [...] 12, 2019 1:08am Start: 04-26-2019 End: 05-25-2019 chondroitin sulfates 400 mg / glucosamine hydrochloride 500 mg oral capsule (8 sources) Start: 10-14-2017 End: 09-11-2021 Start: 05-28-2006 GLUCOSAMINE CH ONDROITIN MAXSTR 500 MG-400 MG CAP Take two (2) tablet three times daily. 0 05/28/2006 Active COMPOUNDED PRESCRIPTION (3 sources) Start: 04-05-2017 End: 12-24-2023 COMPOUNDED PRESCRIPTION 1 bret x of non-adherent 4x4 gauze pads 1 Box 0 04/05/2017 12/24/2023 Discontinued Start: 04-05-2017 COMPOUNDED PRE SCRIPTION 1 box of non-adherent 4x4 gauze pads 1 Box 0 04/05/2017 Active Compress.Stocking,Knee,Reg,L rg misc (6 sources) Start: 05-02-2020 End: 01-05-2025 Compress.Stocking,Knee,Reg,L rg misc Discontinued 0 .ROUTE .MEDSUPPLY 2 1 May 02, 2020 12:00am January 05, 2025 9:33am Venous insufficiency (chronic) (peripheral) wear daily for venous insufficiency 20-30 mmHg Start: 05-02-2020 End: 01-05-2025 Compress.Stocking,Knee,Reg,L rg misc Discontinued 0 .ROUTE .MEDSUPPLY 2 May 02, 2020 12:00am January 05, 2025 9:33am wear daily for venous insufficiency 20-30 mmHg Start: 05-02-2020 Compress.Stock ing,Knee,Reg,Lrg misc Active 0 .ROUTE .MEDSUPPLY 2 May 02, [...] capsule (20 sources) Start: 09-03-2021 End: 12-24-2023 doxycycline hyclate 100 mg o ral capsule (3 sources) Tetracycline-class Drug Start: 02-23-2025 End: 03-20-2025 empagliflozin 10 mg oral tab let (20 [...] tablet (20 sources) Start: 10-14-2017 End: 07-05-2018 furosemide 40 mg oral tablet (20 sources) Loop Diuretic Start: 04-14-2025 End: 04-20-2025 Start: 02-16-2025 End: 04-14-2025 Start: 10-16-2021 End: 04-10-2022 take 1 tablet [...] 19, 2018 12:00am August 19, 2019 6:04pm Ktaqvmfl-Rahepy-Xrk7-D3-C-Ma ng (Glucosamine-Chondr Complx Cplt) 1 EACH tablet (20 sources) Start: 01-24-2015 End: 05-09-2015 take 1 tablet by mouth three times daily Oreptxzy-Yomsqx-Nav2-D3-C-Antelmo (Glucosamine-Chondr Complx Cplt) 1 EACH tablet Discontinued 1 EACH PO THREE TIMES A DAY January 24, 2015 11:55pm May 09, 2015 12:32pm Start: 01-24-2015 End: 05-09-2015 take 1 tablet by mouth three times daily Evzpcvnm-Vjjpra-Kim2-D3-C-Antelmo (Glucosamine-Chondr Complx Cplt) 1 EACH tablet Discontinued 1 NMA PO THREE TIMES A DAY January 24, 2015 12:00am May 09, 2015 12:32pm Start: 01-24-2015 End: 05-09-2015 take 1 tablet by mouth three times daily Jxjedrav-Ccgkzh-Jew7-D3-C-Antelmo (Glucosamine-Chondr Complx Cplt) 1 EACH tablet Discontinued 1 EACH PO THREE TIMES A DAY January 23, 2015 11:00pm May 09, 2015 11:32am Start: 01-24-2015 End: 05-09-2015 take 1 tablet by mouth three times daily Jlptsvjg-Qpzwcz-Rxt1-D3-C-Antelmo (Glucosamine-Chondr Complx Cplt) 1 EACH tablet Discontinued 1 EACH PO THREE TIMES A DAY January 24, 2015 12:00am May 09, 2015 12:32pm Gfdtvcthftb-Waudtkjem-Vhc C- Mn (20 sources) Start: 10-14-2017 End: 09-11-2021 Qtjbrhemnvw-Sxlzlgyih-Wrt C- Mn Discontinued 2 EACH PO THREE TIMES A DAY October 14, 2017 2:39pm September 11, 2021 8:35pm Start: 10-14-2017 End: 09-11-2021 Eghvsvgvqci-Zfwgrlurk-Dpl C- Mn Discontinued 2 EACH PO THREE TIMES A DAY October 13, 2017 11:00pm September 11, 2021 7:35pm Start: 10-14-2017 End: 09-11-2021 Teswymwezda-Lctvqudkp-Pbk C- Mn Discontinued 2 EACH PO THREE TIMES A DAY October 14, 2017 12:00am September 11, 2021 8:35pm Ppucrssawvx-Tkdgicjaz-Txf C-Mn 1 EACH capsule (6 sources) Start: 10-14-2017 End: 09-11-2021 take 1 capsule by mouth three times daily Tudmbysklom-Zjmnwdmvo-Evl C-Mn 1 EACH capsule Discontinued 2 NMA PO THREE TIMES A DAY October 14, 2017 12:00am September 11, 2021 8:35pm SUPPLEMENT Start: 10-14-2017 End: 09-11-2021 take 1 capsule by mouth three times daily Wxtqkyreshr-Ijnsxejkf-Sgt C-Mn 1 EACH capsule Discontinued 2 NMA [...] End: 07-05-2018 metOLazone 5 mg oral tablet (13 sources) Thiazide-like Diuretic Start: 02-22-2025 End: 03-20-2025 metoprolol tartrate 100 mg o ral tablet [...] mg by mouth once daily. 0 Active mupirocin 0.02 mg/mg topical ointment (20 sources) RNA Synthetase Inhibitor Antibacterial Start: 07-05-2018 End: 01-28-2019 Elyjg-4g-Prd-Epa -Fish Oil-D3 (20 sources) Start: 01-24-2015 End: 07-05-2018 take 1 capsule by mouth once daily Qghjf-8o-Djg-Epa-F shaan Oil-D3 Discontinued 1 CAP PO DAILY January 24, 2015 11:55pm July 05, 2018 10:17am Start: 01-24-2015 End: 07-05-2018 take 1 capsule by mouth once daily Xnfpj-8z-Qes-Epa-Fish Oil-D3 Discontinued 1 CAP PO DAILY January 23, 2015 11:00pm July 05, 2018 9:17am Start: 01-24-2015 End: 07-05-2018 take 1 capsule by mouth once daily Zxvhi-2c-Atb-Epa-Fish Oil-D3 Discontinued 1 CAP PO DAILY January 24, 2015 12:00am July 05, 2018 10:17am Vkxzt-3q-Zsg-Epa-Fish Oil-D3 1 EACH capsule (6 sources) Start: 01-24-2015 End: 07-05-2018 take 1 capsule by mouth once daily Wihxx-5x-Ikq-Epa-Fish Oil-D3 1 EACH capsule Discontinued 1 NMA [...] of left femur, initial encounter ([facility]) Take 1 tablet by mouth every 6 hours as needed. 3 tablet 0 09/03/2021 12/24/2023 Discontinued Start: 09-03-2021 End: 09-11-2021 pantoprazole 40 mg delayed r elease oral tablet (20 sources) Proton Pump Inhibitor Start: 10-08-2021 End: 07-24-2022 Start: 10-08-2021 End: 02-07-2022 Pantoprazole 40 mg tablet,de layed release (DR/EC) Discontinued 40 mg PO TWICE A DAY 180 January 08, 2022 9:49am February 07, 2022 11:24am Bid for 3 months then daily polyethylene glycol 3350 78466 mg powder for oral solution (20 sources) [...] 09-11-2021 End: 11-20-2021 potassium chloride 20 meq extended release oral tablet (20 sources) Start: 03-26-2023 End: 12-24-2023 Potassium Chloride 20 mEq tablet extended release Discontinued 0 .ROUTE .COMPLEX 240 [...] mouth twice daily. 0 09/03/2021 Active Start: 01-19-2018 End: 03-18-2024 Start: 01-19-2018 End: 03-18-2024 Start: 01-19-2018 End: 06-03-2019 take 1 tablet [...] 1.5 tablet (4.5 mg) on Thu and Weds; take 2 tablets (6mg) daily all other days of the week, or as directed; Start: 08-28-2021 End: 09-11-2021 Warfarin 3 mg tablet Discont inued 4.5 mg PO SUWE August 28, 2021 1:00am September 11, 2021 8:35pm AFIB Start: 08-28-2021 End: 09-11-2021 Warfarin Discontinued 4.5 MG PO SUWE August 28, 2021 1:00am September 11, 2021 [...] mg PO 4 times per week 60 3 March 26, 2020 12:23pm May 09, 2020 [...] tablets by mouth once daily Warfarin (Jantoven) 5 MG tablet Discontinued 5 mg PO [...] 2015 1:07pm take 1 tablet by saulo th once daily warfarin (COUMADIN) 3 mg tablet [...] Problem Classification Problem Date Documented Date Episodic/Chronic Acute and unspecified renal failure (1 source) [...] sources) Fall; Translations: [Unspecified fall, initial encounter] 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-2025 09-05-2021 Episodic Esophageal disorders (20 sources) Gastroesophageal [...] Translations: [Nonrheumatic aortic (valve) stenosis] Chronic Hemorrhoids (20 sources) Hemorrhoids; Translations: [Unspecified hemorrhoids] 09-01-2024 Episodic Malaise and fatigue (20 sources) Asthenia; Translations: [Other malaise] Onset: 02-23-2025 Episodic Mood disorders (20 sources) Mood disorder; Translations: [Unspecified mood [affective] disorder] 03-01-2025 Chronic Osteoporosis (20 sources) Osteoporosis; Translations: [Age-related osteoporosis without current pathological fracture] Onset: 09-01-2024 Chronic Other aftercare (20 sources) Drug 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; 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] 09-05-2021 Episodic Other aftercare (20 sources) Long-term current use of anticoagulant; 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] 11-24-2018 Episodic Other aftercare (20 sources) Anticoagulant effect; Translations: [Encounter for therapeutic drug level monitoring] 01-11-2019 Episodic Other aftercare (3 sources) 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; Translations: [Anticoagulated on Coumadin] Onset: 01-31-2025 Episodic Other aftercare (20 sources) Post-discharge follow-up; Translations: [Encounter for follow-up examination after completed treatment for conditions other than malignant neoplasm] 02-23-2025 Episodic Other and ill-defined cerebrovascular disease (1 source) Cerebral aneurysm, nonruptured; Translations: [Cerebral aneurysm, nonruptured] 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-2025 Chronic Other and ill-defined heart disease (20 sources) Right cardiac ventricular dilatation; Translations: [Cardiomegaly] 02-22-2025 Chronic Other and ill-defined heart disease (2 sources) Cardiomegaly; Translations: [Cardiomegaly] Onset: 04-14-2025 Chronic Other bone disease and musculoskeletal deformities [...] in limb] Episodic Other connective tissue disease (17 sources) Pain in upper limb; Translations: [Pain in right arm] 09-01-2024 Episodic Other connective tissue disease (3 sources) Pain of left calf; Translations: [Pain in left lower leg] 06-10-2022 Episodic Other connective tissue disease (3 sources) Pain of bilateral upper limbs; Translations: [Pain in right arm] 09-01-2024 Episodic [...] sources) Cough; Translations: [Cough] 01-11-2019 Episodic Other lower respiratory disease (1 source) Cough; Translations: [Cough] Onset: 04-14-2025 Episodic Other nutritional; endocrine; and metabolic disorders (1 source) Gilbert syndrome; 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] 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-2025 Chronic Other upper respiratory infections (20 sources) Nasal discharge; Translations: [Postnasal drip] 01-11-2019 Episodic Pulmonary heart disease (20 sources) Pulmonary hypertension; Translations: [Pulmonary hypertension, unspecified] Chronic Residual codes; unclassified (20 sources) 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; Translations: [Insomnia due to medical condition] 01-11-2019 Chronic Residual codes; unclassified (20 sources) Insomnia; Translations: [Insomnia, unspecified] Onset: 06-23-2005 [...] (5 sources) SUMMARY Onset: 11-29-2015 07-29-2021 Unclassified (1 source) Other persistent atrial fibrillation; Translations: [Atrial fibrillation, persistent (HCC)] Onset: 01-31-2025 Unclassified (1 source) Patient's other noncompliance with medication regimen for other reason; Translations: [Patient's other noncompliance with medication regimen for other reason] 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-2025 Unclassified (1 source) Cough, unspecified; Translations: [Cough, unspecified] Onset: 04-29-2025 Unclassified (1 source) Longstanding persistent atrial fibrillation; Translations: [Longstanding persistent atrial fibrillation] Onset: 04-14-2025 Urinary tract infections (20 sources) Urinary tract infectious disease; Translations: [Urinary tract infection, site not specified] Onset: 05-09-2025 04-01-2019 Episodic Past or Other Problems Problem Classification Problem Date Documented Da te Episodic/Chronic Abdominal pain (17 sources) Abdominal pain; Translations: [Unspecified abdominal pain] Onset: 02-08-2025 01-30-2025 Episodic Other lower respiratory disease (5 sources) Hypoxia; Translations: [Hypoxemia] Onset: 08-29-2021 08-29-2021 Episodic Other screening for suspected conditions (not mental disorders or infectious disease) (20 sources) Mammography abnormal; Translations: [Other abnormal and inconclusive findings on diagnostic imaging of breast] Onset: 12-18-2009 12-18-2009 Episodic Other skin disorders (5 sources) Alopecia; Translations: [Other specified nonscarring hair loss] Onset: 12-27-2008 Resolved: 04-30-2010 07-29-2021 Episodic Residual codes; unclassified (20 sources) History of cardioversion; Translations: [Personal history of other medical treatment] Onset: 07-03-2022 07-15-2022 Episodic Comment on above: [facility]: 07/15/22, 10/15; [facility]: 2015 Results Test Name Value Interpretation Reference Range Facility CBC W/Diff, Automatedon 10-1 Anisocytosis Ql (Bld) 2+ Normal [facility] Comment on above: Performed By: #### L 100.0100, L500.4050, L501.2300, L501.5200 ####[facility] [address] [place], [place], [id number] SMEAR COMMENT SCANNED Normal [facility] Comment on above: Performed By: #### L 100.0100, L500.4050, L501.2300, L501.5200 ####[facility] [address] [place], [address] [facility] 05-15-2025 [facility] Telephone ([facility]) ANA MARIA AVALOS ([id number]) 1935 F Date Time Provider Department 05/15/25 YAHAIRA REAL During your visit today, we recorded the following information about you: Jatinder Chavez RN 05/15/2025 8:30 AM Signed Received message from Dr. Real for scheduling. Will route to CV Triage. Can we please schedule this patient for a clinic appointment to discuss an incidental anterior communicating aneurysm? Needs images from [facility] prior to the visit. Thanks! Yuridia Curiel 05/15/2025 10:04 PM Addendum OSH imaging/records received from [facility]: May 15, 2025 -[facility] Medical Records scanned Schuyler Newman 05/15/2025 10:58 AM Signed OSH imaging/records received from [facility]: May 15, 2025 -Records available in Care Everywhere [employer] Fax received with Medical Records from [facility]. Records Scanned into patient's chart AND available under Scanned Docs. Allergies As of Date: 05/15/2025 Noted Allergy Reaction CODEINE 06/20/2005 4 - Hives DARVOCET A500 (PROPOXYPHENE N-CARLINE*06/20/2005 5 - Intolerance VENOM-HONEY BEE 01/31/2025 16 - Unknown Date Reviewed: 02/08/2025 Reviewed by: Rosanna Min RN - Fully Assessed Reason for Visit: Future Appointment [256] Cmt: New Patient [place] Addie Prescriptions as of 05/15/2025 - dapagliflozin propanediol (FARXIGA) 10 mg tablet Take 10 mg by mouth daily with breakfast. - spironolactone (ALDACTONE) 25 mg tablet Take 25 mg by mouth once daily. - alendronate (FOSAMAX) 70 mg tablet Take 1 tablet by mouth one time a week. On Saturdays - Cholecalciferol, Vitamin D3, (VITAMIN D-3) 50 mcg (2,000 unit) cap Take 4,000 Units by mouth once daily. - cyanocobalamin (VITAMIN B-12) 1,000 mcg tab Take 1,000 mcg by mouth once daily. - FOLIC ACID ORAL Take 400 mcg by mouth once daily. - Fljca-8-NPC-EPA-Fish Oil (FISH OIL) 1,000 mg (120 mg-180 mg) cap Take 2 g by mouth two times a day. - metoprolol tartrate, short acting, (LOPRESSOR) 100 mg tablet Take 100 mg by mouth two times a day. - levothyroxine (SYNTHROID) 112 mcg tablet Take 112 mcg by mouth daily before breakfast. - atorvastatin (LIPITOR) 20 mg tablet Take 1 tablet by mouth once daily. - acetaminophen (TYLENOL) 325 mg tablet Take 650 mg by mouth every 4 hours as needed. - ascorbic acid(VITAMIN C 500 MG TAB) Take 1,000 mg by mouth daily at bedtime. - GLUCOSAMINE CHONDROITIN MAXSTR 500 MG-400 MG CAP Take two (2) tablet three times daily. - MULTIVITAMIN TAB Take one(1) tablet daily. - CALCIUM + D 600 MG-200 UNIT TAB Take one(1) tablet two(2) times daily. - B COMPLEX TAB Take 1 tablet by mouth once daily. 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, [address] Albumin/Globulin [Mass ratio] 1.4 {ratio} Normal 0.9-2.4 [facility] Comment on above: Performed By: #### L 100.0100, L500.4050, L501.2300, L501.5200 ####[facility] [address] [place], [address] ALK PHOS 128 U/L High 35-104 [facility] Comment on above: Performed By: #### L 100.0100, L500.4050, L501.2300, L501.5200 ####[facility] [address] [place], [address] ALT [Catalytic activity/Vol] 26 U/L Normal <=34 [facility] Comment on above: Performed By: #### L 100.0100, L500.4050, L501.2300, L501.5200 ####[facility] [address] [place], [address] AST [Catalytic activity/Vol] 52 U/L High <=31 [facility] Comment on above: Performed By: #### L 100.0100, L500.4050, L501.2300, L501.5200 ####[facility] [address], [address] Bilirubin [Mass/Vol] 2.12 mg/dL High 0.00-1.30 [facility] Comment on above: Performed By: #### L 100.0100, L500.4050, L501.2300, L501.5200 ####[facility] [address] [place], [address] BUN/CRE 25.1 RATIO High 10-20 [facility] Comment on above: Performed By: #### L 100.0100, L500.4050, L501.2300, L501.5200 ####[facility] [address] [place], [address] Calcium [Mass/Vol] 8.6 mg/dL Normal 7.6-11.0 [facility] Comment on above: Performed By: #### L 100.0100, L500.4050, L501.2300, L501.5200 ####[facility] [address] [place], [address] Chloride [Moles/Vol] 89 mmol/L Low 98-108 [facility] Comment on above: Performed By: #### L 100.0100, L500.4050, L501.2300, L501.5200 ####[facility] [address] [place], [address] CO2 [Moles/Vol] 24.7 mmol/L Normal 21.0-32.0 [facility] Comment on above: Performed By: #### L 100.0100, L500.4050, L501.2300, L501.5200 ####[facility] [address] [place], [address] Creatinine [Mass/Vol] 1.41 mg/dL High 0.70-1.20 [facility] Comment on above: Performed By: #### L 100.0100, L500.4050, L501.2300, L501.5200 ####[facility] [address] [place], [address] ECRCL 27.82 ml/min Low 50-250 [facility] Comment on above: Performed By: #### L 100.0100, L500.4050, L501.2300, L501.5200 ####[facility] [address] [place], [address] GAP 12 Normal 5-15 [facility] Comment on above: Performed By: #### L 100.0100, L500.4050, L501.2300, L501.5200 ####[facility] [address] [place], [address] GFR/1.73 sq M.predicted among non-blacks MDRD (S/P/Bld) [Vol rate/Area] 36 mL/min/{1.73_m2} Low >60 [facility] Comment on above: Result Comment: mL/m in/1.73m2 CKD-EPI Creatinine Equation (2020) Performed By: #### L 100.0100, L500.4050, L501.2300, L501.5200 ####[facility] [address] [place], [address] Globulin (S) [Mass/Vol] 2.3 g/dL Normal 2.2-4.2 [facility] Comment on above: Performed By: #### L 100.0100, L500.4050, L501.2300, L501.5200 ####[facility] [address] [place], [address] Glucose [Mass/Vol] 82 mg/dL Normal 70-99 [facility] Comment on above: Performed By: #### L 100.0100, L500.4050, L501.2300, L501.5200 ####[facility] [address] [place], [address] Potassium [Moles/Vol] 3.5 mmol/L Normal 3.3-5.1 [facility] Comment on above: Performed By: #### L 100.0100, L500.4050, L501.2300, L501.5200 ####[facility] [address] [place], [address] Sodium [Moles/Vol] 126 mmol/L Low 133-145 [facility] Comment on above: Performed By: #### L 100.0100, L500.4050, L501.2300, L501.5200 ####[facility] [address] [place], [address] T PROT 5.6 g/dL Low 5.9-8.4 [facility] Comment on above: Performed By: #### L 100.0100, L500.4050, L501.2300, L501.5200 ####[facility] [address] [place], [address] Urea nitrogen [Mass/Vol] 35 mg/dL High 4-19 [facility] Comment on above: Performed By: #### L 100.0100, L500.4050, L501.2300, L501.5200 ####[facility] [address] [place], [address] Magnesiumon 05-15-2025 Magnesium [Mass/Vol] 2.5 mg/dL High 1.5-2.2 [facility] Comment on above: Performed By: #### L 100.0100, L500.4050, L501.2300, L501.5200 ####[facility] [address], [address] Phosphoruson 05-15-2025 Phosphate [Mass/Vol] 3.8 mg/dL Normal 2.7-4.5 [facility] Comment on above: Performed By: #### L 100.0100, L500.4050, L501.2300, L501.5200 ####[facility] [address] [place], [address] 12 Lead EKGon 05-14-2025 12 Lead EKG Normal [facility] Ankle min 3 Viewson 05-14-20 25 Ankle min 3 Views Normal [facility] Basic Metabolic Profile (BMP )on 05-14-2025 BUN Normal -19 [facility] Comment on above: Result Comment: Canc elled via OM: Order cancelled - Patient discharged Performed By: #### L 500.2500 ####[facility] [address] [place], [address] BUN/CRE Normal - [facility] Comment on above: Result Comment: Canc elled via OM: Order cancelled - Patient discharged Performed By: #### L 500.2500 ####[facility] [address] [place], [address] Calcium Normal 7.6-11.0 [facility] Comment on above: Result Comment: Canc elled via OM: Order cancelled - Patient discharged Performed By: #### L 500.2500 ####[facility] [address] [place], [address] CL Normal 98-108 [facility] Comment on above: Result Comment: Canc elled via OM: Order cancelled - Patient discharged Performed By: #### L 500.2500 ####[facility] [address] [place], [address] CO2 Normal 21.0-32.0 [facility] Comment on above: Result Comment: Canc elled via OM: Order cancelled - Patient discharged Performed By: #### L 500.2500 ####[facility] [address] [place], [address] CREAT,SERUM Normal 0.70-1.20 [facility] Comment on above: Result Comment: Canc elled via OM: Order cancelled - Patient discharged Performed By: #### L 500.2500 ####[facility] [address] [place], [address] eGFR Normal >60 [facility] Comment on above: Result Comment: Canc elled via OM: Order cancelled - Patient discharged Performed By: #### L 500.2500 ####[facility] [address] [place], [address] GAP Normal 5-15 [facility] Comment on above: Result Comment: Canc elled via OM: Order cancelled - Patient discharged Performed By: #### L 500.2500 ####[facility] [address] [place], [address] GLU Normal 70-99 [facility] Comment on above: Result Comment: Canc elled via OM: Order cancelled - Patient discharged Performed By: #### L 500.2500 ####[facility] [address] [place], [address] Potassium Normal 3.3-5.1 [facility] Comment on above: Result Comment: Canc elled via OM: Order cancelled - Patient discharged Performed By: #### L 500.2500 ####[facility] [address] [place], [address] Basic Metabolic Profile (BMP) Normal 133-145 [facility] Comment on above: Result Comment: Canc elled via OM: Order cancelled - Patient discharged Performed By: #### L 500.2500 ####[facility] [address] [place], [address] BUN/CRE 21.7 RATIO High 10-20 [facility] Comment on above: Performed By: #### L 100.0100, L500.2500 ####[facility] [address] [place], [address] Calcium [Mass/Vol] 9.0 mg/dL Normal 7.6-11.0 [facility] Comment on above: Performed By: #### L 100.0100, L500.2500 ####[facility] [address] [place], [address] Chloride [Moles/Vol] 86 mmol/L Low 98-108 [facility] Comment on above: Performed By: #### L 100.0100, L500.2500 ####[facility] [address] [place], [address] CO2 [Moles/Vol] 23.5 mmol/L Normal 21.0-32.0 [facility] Comment on above: Performed By: #### L 100.0100, L500.2500 ####[facility] [address] [place], [address] Creatinine [Mass/Vol] 1.55 mg/dL High 0.70-1.20 [facility] Comment on above: Performed By: #### L 100.0100, L500.2500 ####[facility] [address] [place], [address] ECRCL 27.48 ml/min Low 50-250 [facility] Comment on above: Performed By: #### L 100.0100, L500.2500 ####[facility] [address] [place], [address] GAP 14 Normal 5-15 [facility] Comment on above: Performed By: #### L 100.0100, L500.2500 ####[facility] [address] [place], [address] GFR/1.73 sq M.predicted among non-blacks MDRD (S/P/Bld) [Vol rate/Area] 32 mL/min/{1.73_m2} Low >60 [facility] Comment on above: Result Comment: mL/m in/1.73m2 CKD-EPI Creatinine Equation (2020) Performed By: #### L 100.0100, L500.2500 ####[facility] [address] [place], [address] Glucose [Mass/Vol] 102 mg/dL High 70-99 [facility] Comment on above: Performed By: #### L 100.0100, L500.2500 ####[facility] [address] [place], [address] Potassium [Moles/Vol] 3.6 mmol/L Normal 3.3-5.1 [facility] Comment on above: Performed By: #### L 100.0100, L500.2500 ####[facility] [address] [place], [address] Sodium [Moles/Vol] 124 mmol/L Low 133-145 [facility] Comment on above: Performed By: #### L 100.0100, L500.2500 ####[facility] [address] [place], [address] Urea nitrogen [Mass/Vol] 34 mg/dL High 4-19 [facility] Comment on above: Performed By: #### L 100.0100, L500.2500 ####[facility] [address] [place], [address] Brain/Head without Contrasto n 05-14-2025 Brain/Head without Contrast Normal [facility] CBC W/Diff, Automatedon 05-03 Anisocytosis Ql (Bld) 1+ Normal [facility] Comment on above: Performed By: #### L 100.0100, L500.2500 ####[facility] [address] [place], [address] Chest PA and Lateralon 05-14 Chest PA and Lateral Normal [facility] Emergency Department Summary on 05-14-2025 Emergency Department Summary Normal [facility] H AND P Exam - Hospitaliston 05-14-2025 H&P Exam - Hospitalist Normal [facility] L509.6001on 05-14-2025 CORTISOL 21.70 ug/dL High 6.02-18.40 [facility] Comment on above: Performed By: #### L 501.9520, L509.6001, L501.7300 ####[facility] [address], [address] Lipaseon 05-14-2025 Lipase [Catalytic activity/Vol] 37 U/L Normal 13-75 [facility] Comment on above: Result Comment: Tito domínguez note:LIPASE revised reference range effective 22.New Lipase methodology. Expected to produce lower valuesthan the previous assay method.NEW Reference Range: 13 - 75 U/L Performed By: #### L 500.3400, L501.2450 ####[facility] [address] [place], [address] Liver Profileon 05-14-2025 Albumin [Mass/Vol] 3.5 g/dL Normal 3.4-4.8 [facility] Comment on above: Performed By: #### L 500.3400, L501.2450 ####[facility] [address] [place], [address] ALK PHOS 143 U/L High 35-104 [facility] Comment on above: Performed By: #### L 500.3400, L501.2450 ####[facility] [address] [place], [address] ALT [Catalytic activity/Vol] 29 U/L Normal <=34 [facility] Comment on above: Performed By: #### L 500.3400, L501.2450 ####[facility] [address] [place], [address] AST [Catalytic activity/Vol] 61 U/L High <=31 [facility] Comment on above: Performed By: #### L 500.3400, L501.2450 ####[facility] [address] [place], [address] Bilirubin [Mass/Vol] 2.87 mg/dL High 0.00-1.30 [facility] Comment on above: Performed By: #### L 500.3400, L501.2450 ####[facility] [address], [address] Bilirubin.direct [Mass/Vol] 1.67 mg/dL High 0.00-0.30 [facility] Comment on above: Performed By: #### L 500.3400, L501.2450 ####[facility] [address] [place], [address] Globulin (S) [Mass/Vol] 2.8 g/dL Normal 2.2-4.2 [facility] Comment on above: Performed By: #### L 500.3400, L501.2450 ####[facility] [address] [place], [address] T PROT 6.4 g/dL Normal 5.9-8.4 [facility] Comment on above: Performed By: #### L 500.3400, L501.2450 ####[facility] [address] [place], [address] Osmolality, Serumon 10-12-20 25 OSMOLALITY,SER 279 mOsm/KG Low 280-301 [facility] Comment on above: Performed By: #### L 501.9520, L509.6001, L501.7300 ####[facility] [address] [place], [address] Osmolality, Urineon 10-12-20 25 OSMOLALITY,UR 302 mOsm/KG Normal [facility] Comment on above: Result Comment: Norm al Urine Reference Ranges Random: 50 - 1200 mOsm/kg H20 depending on fluid intake Random: >850 mOsm/kg after 12 hour fluid restriction 24 hour: 300 - 900 mOsm/kg H2O Performed By: #### L 501.5500, L501.7400 ####[facility] [address] [place], [address] Pelvis 1 or 2 Viewson 2024 Pelvis 1 or 2 Views Normal [facility] Spine Cervical without Contr ason 05-14-2025 Spine Cervical without Contras Normal [facility] Spine Lumbar without Contras ton 05-14-2025 Spine Lumbar without Contrast Normal [facility] T4 Free Directon 05-14-2025 T4 FREE DIRECT 0.30 ng/dL Low 0.76-1.46 [facility] Comment on above: Performed By: #### L 501.1400, L506.0400 ####[facility] [address] [place], [address] Thyroid Stim Hormone (TSH)on 05-14-2025 TSH 91.900 uIU/mL High 0.300-4.200 [facility] Comment on above: Performed By: #### L 501.9520, L509.6001, L501.7300 ####[facility] [address] [place], [address] Uric Acidon 05-14-2025 URIC 6.2 mg/dL High 2.6-6.0 [facility] Comment on above: Result Comment: The drugs N-Acetylcysteine and Metamizole may falselydepress this assay. Performed By: #### L 501.1400, L506.0400 ####[facility] [address] [place], [address] Urinalysis, Completeon 05-14 BACTERIA RARE Normal None Seen [facility] Comment on above: Order Comment: CLEAN CATCH Performed By: #### L 400.0001 ####[facility] [address] [place], [address] EPI,SQUAMOUS 10-25 SEEN Normal 5-10 [facility] Comment on above: Order Comment: CLEAN CATCH Performed By: #### L 400.0001 ####[facility] [address] [place], [address] EPI,TRANSITION 0-5 SEEN Normal 0-5 [facility] Comment on above: Order Comment: CLEAN CATCH Performed By: #### L 400.0001 ####[facility] [address] [place], [address] WBC 10-25 SEEN Normal 0-5 [facility] Comment on above: Order Comment: CLEAN CATCH Performed By: #### L 400.0001 ####[facility] [address] [place], [address] Mucus Ql (Urine sed) 0 SEEN Normal [facility] Comment on above: Order Comment: CLEAN CATCH Performed By: #### L 400.0001 ####[facility] [address] [place], [address] RBC 0 SEEN Normal 0-5 [facility] Comment on above: Order Comment: CLEAN CATCH Performed By: #### L 400.0001 ####[facility] [address] [place], [address] Urine Sodiumon 05-14-2025 Sodium (U) [Moles/Vol] 35 mmol/L Normal Not Establ. [facility] Comment on above: Performed By: #### L 501.5500, L501.7400 ####[facility] [address] [place], [address] Urine Cultureon 05-11-2025 URC Normal [facility] Comment on above: Performed By: #### L 400.0001, M1 ####[facility] [address] [place], [address] Internal Medicine Office Vis iton 05-09-2025 Internal Medicine Office Visit Normal [facility] Urinalysis, Completeon 05-09 BACTERIA 2+ /hpf Normal None Seen [facility] Comment on above: Order Comment: COLLE CTOR TO SPECIFY Performed By: #### L 400.0001, M1.0 ####[facility] [address] [place], [address] EPI,SQUAMOUS 0-5 SEEN Normal 5-10 [facility] Comment on above: Order Comment: COLLE CTOR TO SPECIFY Performed By: #### L 400.0001, M100.2200 ####[facility] [address] [place], [address] WBC 5-10 SEEN Normal 0-5 [facility] Comment on above: Order Comment: COLLE CTOR TO SPECIFY Performed By: #### L 400.0001, M100.2200 ####[facility] [address] [place], [address] Mucus Ql (Urine sed) 0 SEEN Normal [facility] Comment on above: Order Comment: DAPHNEY CTOR TO SPECIFY Performed By: #### L 400.0001, M100.0 ####[facility] [address] [place], [address] RBC 0 SEEN Normal 0-5 [facility] Comment on above: Order Comment: DAPHNEY CTOR TO SPECIFY Performed By: #### L 400.0001, M100.0 ####[facility] [address] [place], [address] Anion gap in Serum or Plasma Ordered By: Eun Lloyd on 05-02-2025 Anion gap [Moles/Vol] 11 mmol/L 5-15 [facility] BUN/creatinine ratioOrdered By: Eun Lloyd on 05-02-2025 Urea nitrogen/Creatinine [Mass ratio] 17.5 mg/mg 10- [facility] Basic Metabolic Profile (BMP )on 05-02-2025 BUN/CRE 17.5 RATIO Normal -20 [facility] Comment on above: Performed By: #### L 500.2500 ####[facility] [address] [place], [address] Calcium [Mass/Vol] 8.6 mg/dL Normal 7.6-11.0 [facility] Comment on above: Performed By: #### L 500.2500 ####[facility] [address] [place], [address] Chloride [Moles/Vol] 91 mmol/L Low 98-108 [facility] Comment on above: Performed By: #### L 500.2500 ####[facility] [address] [place], [address] CO2 [Moles/Vol] 27.9 mmol/L Normal 21.0-32.0 [facility] Comment on above: Performed By: #### L 500.2500 ####[facility] [address] [place], [address] Creatinine [Mass/Vol] 1.64 mg/dL High 0.70-1.20 [facility] Comment on above: Performed By: #### L 500.2500 ####[facility] [address] [place], [address] GAP 11 Normal 5-15 [facility] Comment on above: Performed By: #### L 500.2500 ####[facility] [address] [place], [address] GFR/1.73 sq M.predicted among non-blacks MDRD (S/P/Bld) [Vol rate/Area] 30 mL/min/{1.73_m2} Low >60 [facility] Comment on above: Result Comment: mL/m in/1.73m2 CKD-EPI Creatinine Equation (2020) Performed By: #### L 500.2500 ####[facility] [address] [place], [address] Glucose [Mass/Vol] 120 mg/dL High 70-99 [facility] Comment on above: Performed By: #### L 500.2500 ####[facility] [address] [place], [address] Potassium [Moles/Vol] 3.6 mmol/L Normal 3.3-5.1 [facility] Comment on above: Performed By: #### L 500.2500 ####[facility] [address] [place], [place], [address] Sodium [Moles/Vol] 130 mmol/L Low 133-145 [facility] Comment on above: Performed By: #### L 500.2500 ####[facility] [address] [place], [place], [address] Urea nitrogen [Mass/Vol] 29 mg/dL High 4-19 [facility] Comment on above: Performed By: #### L 500.2500 ####[facility] [address] [place], [place], [id number] Carbon dioxide, total [Moles /volume] in Central venous bloodOrdered By: Eun Lloyd on 05-02-2025 CO2 [Moles/Vol] 27.9 mmol/L 21.0-32.0 [facility] Chloride assayOrdered By: Alee Lloyd on 05-02-2025 Chloride [Moles/Vol] 91 mmol/L Low 98-108 [facility] Glomerular filtration rate ( GFR) estimation/1.73 sq m using serum, plasma, or whole bOrdered By: Eun Lloyd on 05-02-2025 GFR/1.73 sq M.predicted among non-blacks MDRD (S/P/Bld) [Vol rate/Area] 30 mL/min/{1.73_m2} Low >60 [facility] Potassium measurement (mass/ volume)Ordered By: Eun Lloyd on 05-02-2025 Potassium (Unsp spec) [Mass/Vol] 3.6 mmol/L 3.3-5.1 [facility] Serum creatinine measurement (mass/volume)Ordered By: Eun Lloyd on 05-02-2025 Creatinine [Mass/Vol] 1.64 mg/dL High 0.70-1.20 [facility] Serum glucose measurement (m ass/volume)Ordered By: Eun Lloyd on 05-02-2025 Glucose [Mass/Vol] 120 mg/dL High 70-99 [facility] Serum or plasma calcium caleb urement (mass/volume)Ordered By: Eun Lloyd on 05-02-2025 Calcium [Mass/Vol] 8.6 mg/dL 7.6-11.0 [facility] Serum or plasma urea nitroge n measurement (mass/volume)Ordered By: Eun Lloyd on 05-02-2025 Urea nitrogen [Mass/Vol] 29 mg/dL High 4-19 [facility] Sodium levelOrdered By: Jim Lloyd on 05-02-2025 Sodium [Moles/Vol] 130 mmol/L Low 133-145 [facility] Absolute lymphocyte countOrd ered By: Eun Lloyd on 04-14-2025 Lymphocytes Auto (Unsp spec) [#/Vol] 0.74 10*3/uL Low 0.83-4.51 [facility] Anion gap in Serum or Plasma Ordered By: Eun Lloyd on 04-14-2025 Anion gap [Moles/Vol] 12 mmol/L 5-15 [facility] Automated lymphocyte count a s percentage of total leukocytesOrdered By: Eun Lloyd on 04-14-2025 Lymphocytes/100 WBC Auto (Unsp spec) 17.1 % Low 19-41 [facility] BUN/creatinine ratioOrdered By: Eun Lloyd on 04-14-2025 Urea nitrogen/Creatinine [Mass ratio] 22.5 mg/mg High 10-20 [facility] Basic Metabolic Profile (BMP )on 04-14-2025 BUN/CRE 22.5 RATIO High 10- [facility] Comment on above: Performed By: #### L 100.0100, L500.4100, L500.2500, L500.3400 ####[facility] [address] [place], [place], [id number] Calcium [Mass/Vol] 8.8 mg/dL Normal 7.6-11.0 [facility] Comment on above: Performed By: #### L 100.0100, L500.4100, L500.2500, L500.3400 ####[facility] [address] [place], [address] Chloride [Moles/Vol] 94 mmol/L Low 98-108 [facility] Comment on above: Performed By: #### L 100.0100, L500.4100, L500.2500, L500.3400 ####[facility] [address] [place], [address] CO2 [Moles/Vol] 25.3 mmol/L Normal 21.0-32.0 [facility] Comment on above: Performed By: #### L 100.0100, L500.4100, L500.2500, L500.3400 ####[facility] [address] [place], [address] Creatinine [Mass/Vol] 1.41 mg/dL High 0.70-1.20 [facility] Comment on above: Performed By: #### L 100.0100, L500.4100, L500.2500, L500.3400 ####[facility] [address] [place], [address] GAP 12 Normal 5-15 [facility] Comment on above: Performed By: #### L 100.0100, L500.4100, L500.2500, L500.3400 ####[facility] [address] [place], [address] GFR/1.73 sq M.predicted among non-blacks MDRD (S/P/Bld) [Vol rate/Area] 36 mL/min/{1.73_m2} Low >60 [facility] Comment on above: Result Comment: mL/m in/1.73m2 CKD-EPI Creatinine Equation (2020) Performed By: #### L 100.0100, L500.4100, L500.2500, L500.3400 ####[facility] [address] [place], [address] Glucose [Mass/Vol] 72 mg/dL Normal 70-99 [facility] Comment on above: Performed By: #### L 100.0100, L500.4100, L500.2500, L500.3400 ####[facility] [address] [place], [address] Potassium [Moles/Vol] 3.6 mmol/L Normal 3.3-5.1 [facility] Comment on above: Result Comment: Hemo lysis present, Results??could be affected.?? Performed By: #### L 100.0100, L500.4100, L500.2500, L500.3400 ####[facility] [address] [place], [address] Sodium [Moles/Vol] 131 mmol/L Low 133-145 [facility] Comment on above: Performed By: #### L 100.0100, L500.4100, L500.2500, L500.3400 ####[facility] [address] [place], [address] Urea nitrogen [Mass/Vol] 32 mg/dL High 4-19 [facility] Comment on above: Performed By: #### L 100.0100, L500.4100, L500.2500, L500.3400 ####[facility] [address] [place], [address] Basophil percentageOrdered B y: Eun Lloyd on 04-14-2025 Basophils/100 WBC (Bld) 1.2 % High 0-1 [facility] Bilirubin directOrdered By: Eun Lloyd on 04-14-2025 Bilirubin.direct [Mass/Vol] 1.08 mg/dL High 0.00-0.30 [facility] Bilirubin, totalOrdered By: Eun Lloyd on 04-14-2025 Bilirubin [Mass/Vol] 2.02 mg/dL High 0.00-1.30 [facility] CBC W/Diff, Automatedon 04-03 Absolute Lymph 0.74 X10 3/uL Low 0.83-4.51 [facility] Comment on above: Order Comment: SEND CBCD TO Performed By: #### L 100.0100, L500.4100, L500.2500, L500.3400 ####[facility] [address] [place], [address] Absolute Neut 2.6 X10 3/uL Normal 2.0-7.7 [facility] Comment on above: Order Comment: SEND CBCD TO Performed By: #### L 100.0100, L500.4100, L500.2500, L500.3400 ####[facility] [address] [place], [address] Basophils/100 WBC (Bld) 1.2 % High 0-1 [facility] Comment on above: Order Comment: SEND CBCD TO Performed By: #### L 100.0100, L500.4100, L500.2500, L500.3400 ####[facility] [address] [place], [address] Eosinophils/100 WBC (Bld) 0.2 % Normal 0-5 [facility] Comment on above: Order Comment: SEND CBCD TO Performed By: #### L 100.0100, L500.4100, L500.2500, L500.3400 ####[facility] [address] [place], [address] Erythrocyte distribution width (RBC) [Ratio] 18.9 % High 11.6-14.6 [facility] Comment on above: Order Comment: SEND CBCD TO Performed By: #### L 100.0100, L500.4100, L500.2500, L500.3400 ####[facility] [address] [place], [address] Hematocrit (Bld) [Volume fraction] 40.2 % Normal 37-47 [facility] Comment on above: Order Comment: SEND CBCD TO Performed By: #### L 100.0100, L500.4100, L500.2500, L500.3400 ####[facility] [address] [place], [address] Hemoglobin (Bld) [Mass/Vol] 13.2 g/dL Normal 12.0-15.0 [facility] Comment on above: Order Comment: SEND CBCD TO Performed By: #### L 100.0100, L500.4100, L500.2500, L500.3400 ####[facility] [address] [place], [address] IG% 0.200 Normal 0.0-0.9 [facility] Comment on above: Order Comment: SEND CBCD TO Result Comment: IG% - Immature Granulocytes (promyelocytes, myelocytes andmetamyelocytes) > 1% indicates that a LEFT SHIFT is Present. Performed By: #### L 100.0100, L500.4100, L500.2500, L500.3400 ####[facility] [address] [place], [address] Lymphocytes/100 WBC (Bld) 17.1 % Low 19-41 [facility] Comment on above: Order Comment: SEND CBCD TO Performed By: #### L 100.0100, L500.4100, L500.2500, L500.3400 ####[facility] [address] [place], [address] MCH (RBC) [Entitic mass] 30.0 pg Normal 27.0-32.0 [facility] Comment on above: Order Comment: SEND CBCD TO Performed By: #### L 100.0100, L500.4100, L500.2500, L500.3400 ####[facility] [address] [place], [address] MCHC (RBC) [Mass/Vol] 32.8 g/dL Normal 32-36 [facility] Comment on above: Order Comment: SEND CBCD TO Performed By: #### L 100.0100, L500.4100, L500.2500, L500.3400 ####[facility] [address] [place], [address] MCV (RBC) [Entitic vol] 91.4 fL Normal 81-99 [facility] Comment on above: Order Comment: SEND CBCD TO Performed By: #### L 100.0100, L500.4100, L500.2500, L500.3400 ####[facility] [address] [place], [address] Monocytes/100 WBC (Bld) 21.4 % High 0-10 [facility] Comment on above: Order Comment: SEND CBCD TO Performed By: #### L 100.0100, L500.4100, L500.2500, L500.3400 ####[facility] [address] [place], [address] Neutrophils/100 WBC (Bld) 59.9 % Normal 47-70 [facility] Comment on above: Order Comment: SEND CBCD TO Performed By: #### L 100.0100, L500.4100, L500.2500, L500.3400 ####[facility] [address] [place], [address] Nucleated RBC (Bld) [#/Vol] 0 10*3/uL Normal 0-5 [facility] Comment on above: Order Comment: SEND CBCD TO Performed By: #### L 100.0100, L500.4100, L500.2500, L500.3400 ####[facility] [address] [place], [address] Platelet mean volume (Bld) [Entitic vol] 9.5 fL Normal 6.2-12.0 [facility] Comment on above: Order Comment: SEND CBCD TO Performed By: #### L 100.0100, L500.4100, L500.2500, L500.3400 ####[facility] [address] [place], [address] Platelets (Bld) [#/Vol] 188 10*3/uL Normal 150-450 [facility] Comment on above: Order Comment: SEND CBCD TO Performed By: #### L 100.0100, L500.4100, L500.2500, L500.3400 ####[facility] [address] [place], [address] RBC (Bld) [#/Vol] 4.40 10*6/uL Normal 4.2-5.4 [facility] Comment on above: Order Comment: SEND CBCD TO Performed By: #### L 100.0100, L500.4100, L500.2500, L500.3400 ####[facility] [address] [place], [address] RDW SD 62.4 fl High 35.1-43.9 [facility] Comment on above: Order Comment: SEND CBCD TO Performed By: #### L 100.0100, L500.4100, L500.2500, L500.3400 ####[facility] [address] [place], [address] WBC (Bld) [#/Vol] 4.3 10*3/uL Low 4.4-11.0 [facility] Comment on above: Order Comment: SEND CBCD TO Performed By: #### L 100.0100, L500.4100, L500.2500, L500.3400 ####[facility] [address] [place], [address] Absolute Neut Normal 2.0-7.7 [facility] Comment on above: Result Comment: DUPL ICATE Performed By: #### L 100.0100 ####[facility] [address] [place], [address] HCT Normal 37-47 [facility] Comment on above: Result Comment: DUPL ICATE Performed By: #### L 100.0100 ####[facility] [address] [place], [address] HGB Normal 12.0-15.0 [facility] Comment on above: Result Comment: DUPL ICATE Performed By: #### L 100.0100 ####[facility] [address] [place], [address] MCH Normal 27.0-32.0 [facility] Comment on above: Result Comment: DUPL ICATE Performed By: #### L 100.0100 ####[facility] [address] [place], [address] MCHC Normal 32-36 [facility] Comment on above: Result Comment: DUPL ICATE Performed By: #### L 100.0100 ####[facility] [address] [place], [address] MCV Normal 81-99 [facility] Comment on above: Result Comment: DUPL ICATE Performed By: #### L 100.0100 ####[facility] [address] [place], [address] NEUT% Normal 47-70 [facility] Comment on above: Result Comment: DUPL ICATE Performed By: #### L 100.0100 ####[facility] [address] [place], [address] PLT Normal 150-450 [facility] Comment on above: Result Comment: DUPL ICATE Performed By: #### L 100.0100 ####[facility] [address] [place], [address] RBC Normal 4.2-5.4 [facility] Comment on above: Result Comment: DUPL ICATE Performed By: #### L 100.0100 ####[facility] [address] [place], [address] RDW CV Normal 11.6-14.6 [facility] Comment on above: Result Comment: DUPL ICATE Performed By: #### L 100.0100 ####[facility] [address] [place], [address] RDW SD Normal 35.1-43.9 [facility] Comment on above: Result Comment: DUPL ICATE Performed By: #### L 100.0100 ####[facility] [address] [place], [address] WBC Normal 4.4-11.0 [facility] Comment on above: Result Comment: DUPL ICATE Performed By: #### L 100.0100 ####[facility] [address] [place], [address] Calculated very low density lipoprotein (VLDL) cholesterol measurementOrdered By: Eun Lloyd on 04-14-2025 Calculated very low density lipoprotein (VLDL) cholesterol measurement 17 mg/dL 5-40 [facility] Carbon dioxide, total [Moles /volume] in Central venous bloodOrdered By: Eun Lloyd on 04-14-2025 CO2 [Moles/Vol] 25.3 mmol/L 21.0-32.0 [facility] Cardiology Visit Reporton Cardiology Visit Report Normal [facility] Chest PA and Lateralon 04-14 Chest PA and Lateral Normal [facility] Chloride assayOrdered By: Alee Lloyd on 04-14-2025 Chloride [Moles/Vol] 94 mmol/L Low 98-108 [facility] Eosinophil percentageOrdered By: Eun Lloyd on 04-14-2025 Eosinophils/100 WBC (Bld) 0.2 % 0-5 [facility] Erythrocyte distribution wid th ratioOrdered By: Eun Lloyd on 04-14-2025 Erythrocyte distribution width (RBC) [Ratio] 18.9 % High 11.6-14.6 [facility] Erythrocyte distribution wid th standard deviationOrdered By: Eun Lloyd on 04-14-2025 Erythrocyte distribution width (RBC) [Ratio] 62.4 fl High 35.1-43.9 [facility] Glomerular filtration rate ( GFR) estimation/1.73 sq m using serum, plasma, or whole bOrdered By: Eun Lloyd on 04-14-2025 GFR/1.73 sq M.predicted among non-blacks MDRD (S/P/Bld) [Vol rate/Area] 36 mL/min/{1.73_m2} Low >60 [facility] Hematocrit Auto (Bld) [Volum e fraction]Ordered By: Eun Lloyd on 04-14-2025 Hematocrit (Bld) [Volume fraction] 40.2 % 37-47 [facility] Hemoglobin measurementOrdere d By: Eun Lloyd on 04-14-2025 Hemoglobin (Bld) [Mass/Vol] 13.2 g/dL 12.0-15.0 [facility] Immature granulocytes/100 WB C Auto (Bld)Ordered By: Eun Lloyd on 04-14-2025 Immature granulocytes/100 WBC (Bld) 0.200 % 0.0-0.9 [facility] LDL calc ser/plasOrdered By: Eun Lloyd on 04-14-2025 Cholesterol in LDL [Mass/Vol] 51 mg/dL [facility] Lipid Profileon 04-14-2025 CHOL:HDL 2.64 Normal [facility] Comment on above: Performed By: #### L 100.0100, L500.4100, L500.2500, L500.3400 ####[facility] [address] [place], [place], [id number] Cholesterol [Mass/Vol] 109 mg/dL Normal <=200 [facility] Comment on above: Result Comment: Chol esterol level, Desirable <200 mg/dLBorderline high cholesterol 200-239 mg/dLHigh cholesterol >=240 mg/dLRecommendations of the NCEP Adult Treatment Panel for thefollowing risk-cutoff thresholds for the [place] [facility]. Performed By: #### L 100.0100, L500.4100, L500.2500, L500.3400 ####[facility] [address] [place], [address] Cholesterol in HDL [Mass/Vol] 41 mg/dL Normal [facility] Comment on above: Result Comment: Sharita onal Cholesterol Education Program (NCEP) guidelines:<40 mg/dL: Low HDL-cholesterol (major risk factor for CHD)>= 60 mg/dL: High HDL-cholesterol (negative risk factor forCHD)HDL-cholesterol is affected by a number of factors, e.g.smoking, exercise, hormones, sex and age. Performed By: #### L 100.0100, L500.4100, L500.2500, L500.3400 ####[facility] [address] [place], [address] Cholesterol in LDL [Mass/Vol] 51 mg/dL Normal [facility] Comment on above: Result Comment: Bord ieprgj=484-473 mg/dL Higher Scfn=560 mg/dL or greaterFriedwald Equation for LDL-C Performed By: #### L 100.0100, L500.4100, L500.2500, L500.3400 ####[facility] [address] [place], [address] Cholesterol in VLDL [Mass/Vol] 17 mg/dL Normal 5-40 [facility] Comment on above: Performed By: #### L 100.0100, L500.4100, L500.2500, L500.3400 ####[facility] [address] [place], [address] Triglyceride [Mass/Vol] 83 mg/dL Normal [facility] Comment on above: Result Comment: The drugs N-Acetylcysteine and Metamizole may falselydepress this assay.Normal range: <150 mg/dLBorderline High: 150-199 mg/dLHigh: 200-499 mg/dLVery High: >500 mg/dL Performed By: #### L 100.0100, L500.4100, L500.2500, L500.3400 ####[facility] [address] [place], [address] Liver Profileon 04-14-2025 Albumin [Mass/Vol] 3.6 g/dL Normal 3.4-4.8 [facility] Comment on above: Performed By: #### L 100.0100, L500.4100, L500.2500, L500.3400 ####[facility] [address] [place], [address] ALK PHOS 143 U/L High 35-104 [facility] Comment on above: Performed By: #### L 100.0100, L500.4100, L500.2500, L500.3400 ####[facility] [address] [place], [address] ALT [Catalytic activity/Vol] 27 U/L Normal <=34 [facility] Comment on above: Performed By: #### L 100.0100, L500.4100, L500.2500, L500.3400 ####[facility] [address] [place], [address] AST [Catalytic activity/Vol] 55 U/L High <=31 [facility] Comment on above: Result Comment: Hemo lysis present, Results??could be affected.?? Performed By: #### L 100.0100, L500.4100, L500.2500, L500.3400 ####[facility] [address] [place], [address] Bilirubin [Mass/Vol] 2.02 mg/dL High 0.00-1.30 [facility] Comment on above: Performed By: #### L 100.0100, L500.4100, L500.2500, L500.3400 ####[facility] [address] [place], [address] Bilirubin.direct [Mass/Vol] 1.08 mg/dL High 0.00-0.30 [facility] Comment on above: Result Comment: Hemo lysis present, Results??could be affected.?? Performed By: #### L 100.0100, L500.4100, L500.2500, L500.3400 ####[facility] [address] [place], [address] Globulin (S) [Mass/Vol] 2.6 g/dL Normal 2.2-4.2 [facility] Comment on above: Performed By: #### L 100.0100, L500.4100, L500.2500, L500.3400 ####[facility] [address] [place], [address] T PROT 6.2 g/dL Normal 5.9-8.4 [facility] Comment on above: Performed By: #### L 100.0100, L500.4100, L500.2500, L500.3400 ####[facility] [address] [place], [address] MCV (mean corpuscular volume ) determinationOrdered By: Eun Lloyd on 04-14-2025 MCV (RBC) [Entitic vol] 91.4 fL 81-99 [facility] Mean corpuscular hemoglobin (MCH) determinationOrdered By: Eun Lloyd on 04-14-2025 MCH (RBC) [Entitic mass] 30.0 pg 27.0-32.0 [facility] Monocyte percentageOrdered B y: Eun Lloyd on 04-14-2025 Monocytes/100 WBC (Bld) 21.4 % High 0-10 [facility] Neutrophil percentageOrdered By: Eun Lloyd on 04-14-2025 Neutrophils/100 WBC (Bld) 59.9 % 47-70 [facility] No Panel InformationOrdered By: Eun Lloyd on 04-14-2025 55 U/L High <32 [facility] Platelet countOrdered By: Alee Lloyd on 04-14-2025 Platelets (Bld) [#/Vol] 188 10*3/uL 150-450 [facility] Potassium measurement (mass/ volume)Ordered By: Eun Lloyd on 04-14-2025 Potassium (Unsp spec) [Mass/Vol] 3.6 mmol/L 3.3-5.1 [facility] RBC Auto (Bld) [#/Vol]Ordere d By: Eun Lloyd on 04-14-2025 RBC (Bld) [#/Vol] 4.40 10*6/uL 4.2-5.4 [facility] Serum creatinine measurement (mass/volume)Ordered By: Eun Lloyd on 04-14-2025 Creatinine [Mass/Vol] 1.41 mg/dL High 0.70-1.20 [facility] Serum globulin measurementOr dered By: Eun Lloyd on 04-14-2025 Globulin (S) [Mass/Vol] 2.6 g/dL 2.2-4.2 [facility] Serum glucose measurement (m ass/volume)Ordered By: Eun Lloyd on 04-14-2025 Glucose [Mass/Vol] 72 mg/dL 70-99 [facility] Serum or plasma alanine henderson otransferase (ALT) measurementOrdered By: Eun Lloyd on 04-14-2025 ALT [Catalytic activity/Vol] 27 U/L <35 [facility] Serum or plasma albumin caleb urement (mass/volume)Ordered By: Eun Lloyd on 04-14-2025 Albumin [Mass/Vol] 3.6 g/dL 3.4-4.8 [facility] Serum or plasma alkaline lexus sphatase measurementOrdered By: Eun Lloyd on 04-14-2025 ALP [Catalytic activity/Vol] 143 U/L High 35-104 [facility] Serum or plasma calcium caleb urement (mass/volume)Ordered By: Eun Lloyd on 04-14-2025 Calcium [Mass/Vol] 8.8 mg/dL 7.6-11.0 [facility] Serum or plasma cholesterol in HDL measurement (mass/volume)Ordered By: Eun Lloyd on 04-14-2025 Cholesterol in HDL [Mass/Vol] 41 mg/dL >40 [facility] Serum or plasma cholesterol measurement (mass/volume)Ordered By: Eun Lloyd on 04-14-2025 Cholesterol [Mass/Vol] 109 mg/dL <201 [facility] Serum or plasma urea nitroge n measurement (mass/volume)Ordered By: Eun Lloyd on 04-14-2025 Urea nitrogen [Mass/Vol] 32 mg/dL High 4-19 [facility] Sodium levelOrdered By: Jim Lloyd on 04-14-2025 Sodium [Moles/Vol] 131 mmol/L Low 133-145 [facility] Total proteinOrdered By: Ernesto Lloyd on 04-14-2025 Protein [Mass/Vol] 6.2 g/dL 5.9-8.4 [facility] White blood cell (WBC) count Ordered By: Eun Lloyd on 04-14-2025 WBC (Bld) [#/Vol] 4.3 10*3/uL Low 4.4-11.0 [facility] Urine Cultureon 04-12-2025 [facility] Normal [facility] Comment on above: Performed By: #### M 100.2200 ####[facility] [address] [place], [address] Urine cultureOrdered By: Carlito Rene on 04-10-2025 Bacteria identified Cx Nom (U) Escherichia coli Abnormal [facility] No Panel InformationOrdered By: Dheeraj Rene on 04-09-2025 DARK YELLOW [facility] 160 mg/dL High 70-110 [facility] Clear [facility] 500 g/dL [facility] Negative [facility] 1.010 [facility] 6.0 [facility] Trace [facility] Positive [facility] Urgent Care Visit Reporton 0 04-09-2025 Urgent Care Visit Report Normal [facility] Urine Cultureon 03-22-2025 [facility] Normal [facility] Comment on above: Performed By: #### M 100.2200 ####[facility] [address] [place], [address] Internal Medicine Office Vis iton 03-20-2025 Internal Medicine Office Visit Normal [facility] No Panel InformationOrdered By: Carla Coughlin on 03-20-2025 DARK YELLOW [facility] Cloudy [facility] 250 g/dL [facility] Trace (5) [facility] 1.010 [facility] 7.5 [facility] Negative [facility] 1 mg/dL [facility] Hemolyzed [facility] Large [facility] Trace [facility] Positive [facility] Urine cultureOrdered By: Gypsy Coughlin on 03-20-2025 Bacteria identified Cx Nom (U) Presumptive E. coli Abnormal [facility] Anion gap in Serum or Plasma Ordered By: Eun Lloyd on 03-01-2025 Anion gap [Moles/Vol] 13 mmol/L 5-15 [facility] BUN/creatinine ratioOrdered By: Eun Lloyd on 03-01-2025 Urea nitrogen/Creatinine [Mass ratio] 24.4 mg/mg High 10-20 [facility] Basic Metabolic Profile (BMP )on 03-01-2025 BUN/CRE 24.4 RATIO High 1020 [facility] Comment on above: Order Comment: Send result to Dr. Fish also Performed By: #### L 500.2500 ####[facility] [address] [place], [address] Calcium [Mass/Vol] 9.5 mg/dL Normal 7.6-11.0 [facility] Comment on above: Order Comment: Send result to Dr. Fish also Performed By: #### L 500.2500 ####[facility] [address] [place], [address] Chloride [Moles/Vol] 92 mmol/L Low 98-108 [facility] Comment on above: Order Comment: Send result to Dr. Fish also Performed By: #### L 500.2500 ####[facility] [address] [place], [address] CO2 [Moles/Vol] 26.2 mmol/L Normal 21.0-32.0 [facility] Comment on above: Order Comment: Send result to Dr. Fish also Performed By: #### L 500.2500 ####[facility] [address] [place], [address] Creatinine [Mass/Vol] 1.17 mg/dL Normal 0.70-1.20 [facility] Comment on above: Order Comment: Send result to Dr. Fish also Performed By: #### L 500.2500 ####[facility] [address] [place], [address] GAP 13 Normal 5-15 [facility] Comment on above: Order Comment: Send result to Dr. Fish also Performed By: #### L 500.2500 ####[facility] [address] [place], [address] GFR/1.73 sq M.predicted among non-blacks MDRD (S/P/Bld) [Vol rate/Area] 45 mL/min/{1.73_m2} Low >60 [facility] Comment on above: Order Comment: Send result to Dr. Fish also Result Comment: mL/m in/1.73m2 CKD-EPI Creatinine Equation (2020) Performed By: #### L 500.2500 ####[facility] [address] [place], [address] Glucose [Mass/Vol] 88 mg/dL Normal 70-99 [facility] Comment on above: Order Comment: Send result to Dr. Fish also Performed By: #### L 500.2500 ####[facility] [address] [place], [address] Potassium [Moles/Vol] 3.5 mmol/L Normal 3.3-5.1 [facility] Comment on above: Order Comment: Send result to Dr. Fish also Performed By: #### L 500.2500 ####[facility] [address] [place], [address] Sodium [Moles/Vol] 131 mmol/L Low 133-145 [facility] Comment on above: Order Comment: Send result to Dr. Fish also Performed By: #### L 500.2500 ####[facility] [address] [place], [address] Urea nitrogen [Mass/Vol] 29 mg/dL High 4-19 [facility] Comment on above: Order Comment: Send result to Dr. Fish also Performed By: #### L 500.2500 ####[facility] [address] [facility] [address] [place], [place], [id number] Carbon dioxide, total [Moles /volume] in Central venous bloodOrdered By: Eun Lloyd on 03-01-2025 CO2 [Moles/Vol] 26.2 mmol/L 21.0-32.0 [facility] Chloride assayOrdered By: Alee Lloyd on 03-01-2025 Chloride [Moles/Vol] 92 mmol/L Low 98-108 [facility] Glomerular filtration rate ( GFR) estimation/1.73 sq m using serum, plasma, or whole bOrdered By: Eun Lloyd on 03-01-2025 GFR/1.73 sq M.predicted among non-blacks MDRD (S/P/Bld) [Vol rate/Area] 45 mL/min/{1.73_m2} Low >60 [facility] Internal Medicine Office Vis iton 03-01-2025 Internal Medicine Office Visit Normal [facility] Potassium measurement (mass/ volume)Ordered By: Eun Lloyd on 03-01-2025 Potassium (Unsp spec) [Mass/Vol] 3.5 mmol/L 3.3-5.1 [facility] Serum creatinine measurement (mass/volume)Ordered By: Eun Lloyd on 03-01-2025 Creatinine [Mass/Vol] 1.17 mg/dL 0.70-1.20 [facility] Serum glucose measurement (m ass/volume)Ordered By: Eun Lloyd on 03-01-2025 Glucose [Mass/Vol] 88 mg/dL 70-99 [facility] Serum or plasma calcium caleb urement (mass/volume)Ordered By: Eun Lloyd on 03-01-2025 Calcium [Mass/Vol] 9.5 mg/dL 7.6-11.0 [facility] Serum or plasma urea nitroge n measurement (mass/volume)Ordered By: Eun Lloyd on 03-01-2025 Urea nitrogen [Mass/Vol] 29 mg/dL High 4-19 [facility] Sodium levelOrdered By: Jim Lloyd on 03-01-2025 Sodium [Moles/Vol] 131 mmol/L Low 133-145 [facility] Internal Medicine Office Vis iton 02-23-2025 Internal Medicine Office Visit Normal [facility] Cardiology Visit Reporton Cardiology Visit Report Normal [facility] Anion gap in Serum or Plasma Ordered By: Radha Fish on 02-13-2025 Anion gap [Moles/Vol] 12 mmol/L 5-15 [facility] Automated blood erythrocyte countOrdered By: Radha Fish on 02-13-2025 RBC (Bld) [#/Vol] 3.43 10*6/uL Low 4.2-5.4 [facility] Comment on above: Performed By: #### L 100.0500, L500.2500 ####[facility] [address] [place], [place], [id number] Automated blood hematocrit ( percentage)Ordered By: Radha Fish on 02-13-2025 Hematocrit (Bld) [Volume fraction] 34.4 % Low 37-47 [facility] Comment on above: Performed By: #### L 100.0500, L500.2500 ####[facility] [address] [facility] [place], [place], [id number] BUN/creatinine ratioOrdered By: Radha Fish on 02-13-2025 Urea nitrogen/Creatinine [Mass ratio] 24.9 mg/mg High 10- [facility] Basic Metabolic Profile (BMP )on 02-13-2025 BUN/CRE 24.9 RATIO High 05-22 [facility] Comment on above: Performed By: #### L 100.0500, L500.2500 ####[facility] [address] [place], [address] GAP 12 Normal 5-15 [facility] Comment on above: Performed By: #### L 100.0500, L500.2500 ####[facility] [address] [place], [address] Potassium [Moles/Vol] 4.0 mmol/L Normal 3.3-5.1 [facility] Comment on above: Performed By: #### L 100.0500, L500.2500 ####[facility] [address] [place], [address] CBC-Complete Blood Cnt No Di ffon 02-13-2025 MCHC (RBC) [Mass/Vol] 32.6 g/dL Normal 32-36 [facility] Comment on above: Performed By: #### L 100.0500, L500.2500 ####[facility] [address] [place], [address] Platelet mean volume (Bld) [Entitic vol] 9.0 fL Normal 6.2-12.0 [facility] Comment on above: Performed By: #### L 100.0500, L500.2500 ####[facility] [address] [place], [address] RDW SD 63.1 fl High 35.1-43.9 [facility] Comment on above: Performed By: #### L 100.0500, L500.2500 ####[facility] [address] [place], [address] Carbon dioxide, total [Moles /volume] in Central venous bloodOrdered By: Radha Fish on 02-13-2025 CO2 [Moles/Vol] 17.4 mmol/L Low 21.0-32.0 [facility] Comment on above: Performed By: #### L 100.0500, L500.2500 ####[facility] [address] [place], [address] Chloride assayOrdered By: Elina Fish on 02-13-2025 Chloride [Moles/Vol] 103 mmol/L Normal 98-108 [facility] Comment on above: Performed By: #### L 100.0500, L500.2500 ####[facility] [address] [facility] [address] Erythrocyte distribution wid th ratioOrdered By: Radha Fish on 02-13-2025 Erythrocyte distribution width (RBC) [Ratio] 18.8 % High 11.6-14.6 [facility] Comment on above: Performed By: #### L 100.0500, L500.2500 ####[facility] [address] [facility] [id number] Erythrocyte distribution wid th standard deviationOrdered By: Radha Fish on 02-13-2025 Erythrocyte distribution width (RBC) [Ratio] 63.1 fl High 35.1-43.9 [facility] Glomerular filtration rate ( GFR) estimation/1.73 sq m using serum, plasma, or whole bOrdered By: Radha Fish on 02-13-2025 GFR/1.73 sq M.predicted among non-blacks MDRD (S/P/Bld) [Vol rate/Area] 51 mL/min/{1.73_m2} Low >60 [facility] Comment on above: Result Comment: mL/m in/1.73m2 CKD-EPI Creatinine Equation (2020) Performed By: #### L 100.0500, L500.2500 ####[facility] [address] [place], [address] Hemoglobin measurementOrdere d By: Radha Fish on 02-13-2025 Hemoglobin (Bld) [Mass/Vol] 11.2 g/dL Low 12.0-15.0 [facility] Comment on above: Performed By: #### L 100.0500, L500.2500 ####[facility] [address] [place], [address] MCV (mean corpuscular volume ) determinationOrdered By: Radha Fish on 02-13-2025 MCV (RBC) [Entitic vol] 100.3 fL High 81-99 [facility] Comment on above: Performed By: #### L 100.0500, L500.2500 ####[facility] [address] [place], [address] Mean corpuscular hemoglobin (MCH) determinationOrdered By: Hughisabelalisa Fish on 02-13-2025 MCH (RBC) [Entitic mass] 32.7 pg High 27.0-32.0 [facility] Comment on above: Performed By: #### L 100.0500, L500.2500 ####[facility] [address] [place], [address] Platelet countOrdered By: Elina divya Tedalexxsisi on 02-13-2025 Platelets (Bld) [#/Vol] 251 10*3/uL Normal 150-450 [facility] Comment on above: Performed By: #### L 100.0500, L500.2500 ####[facility] [address] [place], [address] Potassium measurement (mass/ volume)Ordered By: Radha Fish on 02-13-2025 Potassium (Unsp spec) [Mass/Vol] 4.0 mmol/L 3.3-5.1 [facility] Serum creatinine measurement (mass/volume)Ordered By: Radha Fish on 02-13-2025 Creatinine [Mass/Vol] 1.05 mg/dL Normal 0.70-1.20 [facility] Comment on above: Performed By: #### L 100.0500, L500.2500 ####[facility] [address] [place], [address] Serum glucose measurement (m ass/volume)Ordered By: Radha Fish on 02-13-2025 Glucose [Mass/Vol] 122 mg/dL High 70-99 [facility] Comment on above: Performed By: #### L 100.0500, L500.2500 ####[facility] [address] [place], [address] Serum or plasma calcium caleb urement (mass/volume)Ordered By: Radha Fish on 02-13-2025 Calcium [Mass/Vol] 8.4 mg/dL Normal 7.6-11.0 [facility] Comment on above: Performed By: #### L 100.0500, L500.2500 ####[facility] [address] [place], [address] Serum or plasma urea nitroge n measurement (mass/volume)Ordered By: Radha Fish on 02-13-2025 Urea nitrogen [Mass/Vol] 26 mg/dL High 4-19 [facility] Comment on above: Performed By: #### L 100.0500, L500.2500 ####[facility] [address] [place], [address] Sodium levelOrdered By: Hugh Fish on 02-13-2025 Sodium [Moles/Vol] 132 mmol/L Low 133-145 [facility] Comment on above: Performed By: #### L 100.0500, L500.2500 ####[facility] [address] [place], [address] White blood cell (WBC) count Ordered By: Radha Fish on 02-13-2025 WBC (Bld) [#/Vol] 4.7 10*3/uL Normal 4.4-11.0 [facility] Comment on above: Performed By: #### L 100.0500, L500.2500 ####[facility] [address] [place], [address] Basic metabolic 2000 panelon 02-08-2025 Anion gap [Moles/Vol] 13 mmol/L Normal 8-15 [facility] Comment on above: Order Comment: Speci men Type: BLOOD SPECIMEN Ordering Facility: [facility] Address: [address] [place] [address] Performed By: #### 3 4528-0 #### [facility] CLIA [id number] [address] [place] [address] [place] Calcium [Mass/Vol] 8.0 mg/dL Low 8.5-10.2 [facility] Comment on above: Order Comment: Speci men Type: BLOOD SPECIMEN Ordering Facility: [facility] Address: [address] [place] [address] Performed By: #### 3 4528-0 #### [facility] CLIA [id number] [address] [place] [address] [place] Chloride [Moles/Vol] 98 mmol/L Normal 98-107 [facility] Comment on above: Order Comment: Speci men Type: BLOOD SPECIMEN Ordering Facility: [facility] Address: [address] [place] [address] Performed By: #### 3 4528-0 #### [facility] CLIA [id number] [address] [place] [address] [place] CO2 [Moles/Vol] 18 mmol/L Low 22-30 [facility] Comment on above: Order Comment: Speci men Type: BLOOD SPECIMEN Ordering Facility: [facility] Address: [address] [place] [address] Performed By: #### 3 4528-0 #### [facility] CLIA [id number] [address] [place] [address] [place] Creatinine [Mass/Vol] 0.91 mg/dL Normal 0.58-0.96 [facility] Comment on above: Order Comment: Speci men Type: BLOOD SPECIMEN Ordering Facility: [facility] Address: [address] [place] [address] Performed By: #### 3 4528-0 #### [facility] CLIA [id number] [address] [place] [address] [place] Creatinine and Glomerular filtration rate.predicted panel (S/P/Bld) 61 mL/min/1.73m??? Normal >=60 [facility] Comment on above: Order Comment: Claudia howell Type: BLOOD SPECIMEN Ordering Facility: [facility] Address: [address] [place] [address] Result Comment: Kiki mated Glomerular Filtration Rate [...] GFR. Performed By: #### 3 4528-0 #### [facility] CLIA [id number] [address] [place] [address] [place] Glucose [Mass/Vol] 81 mg/dL Normal 74-99 [facility] Comment on above: Order Comment: Claudia howell Type: BLOOD SPECIMEN Ordering Facility: [facility] Address: [address] [place] [address] Result Comment: The [place] [employer] (ADA) provides guidance for cutoff [...] Standards of Medical Care in Diabetes 2016, [place] [employer]. Diabetes Care. 2016.39(Suppl 1). Performed By: #### 3 4528-0 #### [facility] CLIA [id number] [address] [place] [address] [place] Potassium [Moles/Vol] 4.5 mmol/L Normal 3.7-5.1 [facility] Comment on above: Order Comment: Speci men Type: BLOOD SPECIMEN Ordering Facility: [facility] Address: [address] [place] [address] Performed By: #### 3 4528-0 #### [facility] CLIA [id number] [address] STATES OF [facility] Sodium [Moles/Vol] 129 mmol/L Low 136-144 [facility] Comment on above: Order Comment: Speci men Type: BLOOD SPECIMEN Ordering Facility: [facility] Address: [address] [place] [address] Performed By: #### 3 4528-0 #### [facility] CLIA [id number] [address] [place] [facility] Urea nitrogen [Mass/Vol] 21 mg/dL Normal 7-21 [facility] Comment on above: Order Comment: Speci men Type: BLOOD SPECIMEN Ordering Facility: [facility] Address: [address] [place] [address] Performed By: #### 3 4528-0 #### [facility] CLIA [id number] [address] OF [facility] CBC W Auto Differential pane l (Bld)on 02-08-2025 Basophils (Bld) [#/Vol] 0.04 10*3/uL Normal <0.11 [facility] Comment on above: Order Comment: Speci men Type: BLOOD SPECIMEN Ordering Facility: [facility] Address: [address] [place] [address] Performed By: #### 2 4321-2 #### [facility] CLIA [id number] [address] Basophils/100 WBC (Bld) 0.9 % Normal A [facility] Comment on above: Order Comment: Speci men Type: BLOOD SPECIMEN Ordering Facility: [facility] Address: [address] [place] [address] Performed By: #### 2 4321-2 #### [facility] CLIA [id number] [address] Differential cell count method Nom (Bld) Auto Normal [facility] Comment on above: Order Comment: Speci men Type: BLOOD SPECIMEN Ordering Facility: [facility] Address: [address] [place] [address] Performed By: #### 2 4321-2 #### [facility] CLIA [id number] [address] Eosinophils (Bld) [#/Vol] 10*3/uL Normal <0.46 [facility] Comment on above: Order Comment: Speci men Type: BLOOD SPECIMEN Ordering Facility: [facility] Address: [address] [place] [address] Performed By: #### 2 1-2 #### [facility] CLIA [id number] [address] Eosinophils/100 WBC (Bld) 0.5 % Normal [facility] Comment on above: Order Comment: Speci men Type: BLOOD SPECIMEN Ordering Facility: [facility] Address: [address] [place] [address] Performed By: #### 2 1-2 #### [facility] CLIA [id number] [address] Erythrocyte distribution width (RBC) [Ratio] 16.2 % High 11.5-15.0 [facility] Comment on above: Order Comment: Speci men Type: BLOOD SPECIMEN Ordering Facility: [facility] Address: [address] [place] [address] Performed By: #### 2 1-2 #### [facility] CLIA [id number] [address] Hematocrit (Bld) [Volume fraction] 36.0 % Normal 36.0-46.0 [facility] Comment on above: Order Comment: Speci men Type: BLOOD SPECIMEN Ordering Facility: [facility] Address: [facility] [place] [address] Performed By: #### 2 1-2 #### [facility] CLIA [id number] [address] [place] Hemoglobin (Bld) [Mass/Vol] 11.2 g/dL Low 11.5-15.5 [facility] Comment on above: Order Comment: Speci men Type: BLOOD SPECIMEN Ordering Facility: [facility] Address: [address] [place] [address] Performed By: #### 2 4321-2 #### [facility] CLIA [id number] [address] [place] Immature granulocytes (Bld) [#/Vol] 10*3/uL Normal <0.10 [facility] Comment on above: Order Comment: Speci men Type: BLOOD SPECIMEN Ordering Facility: [facility] Address: [address] [place] [address] Performed By: #### 2 4321-2 #### [facility] CLIA [id number] [address] [place] Immature granulocytes/100 WBC (Bld) 0.5 % Normal [facility] Comment on above: Order Comment: Speci men Type: BLOOD SPECIMEN Ordering Facility: [facility] Address: [address] [place] [address] Performed By: #### 2 4321-2 #### [facility] CLIA [id number] [address] [place] Lymphocytes (Bld) [#/Vol] 0.41 10*3/uL Low 1.00-4.00 [facility] Comment on above: Order Comment: Speci men Type: BLOOD SPECIMEN Ordering Facility: [facility] Address: [address] [place] [address] Performed By: #### 2 4321-2 #### [facility] CLIA [id number] [address] [place] Lymphocytes/100 WBC (Bld) 9.3 % Normal [facility] Comment on above: Order Comment: Speci men Type: BLOOD SPECIMEN Ordering Facility: [facility] Address: [facility] [place] [address] Performed By: #### 2 4321-2 #### [facility] CLIA [id number] [address] MCH (RBC) [Entitic mass] 31.5 pg Normal 26.0-34.0 [facility] Comment on above: Order Comment: Speci men Type: BLOOD SPECIMEN Ordering Facility: [facility] Address: [address] [place] [address] Performed By: #### 2 4321-2 #### [facility] CLIA [id number] [address] OF [facility] MCHC (RBC) [Mass/Vol] 31.1 g/dL Normal 30.5-36.0 [facility] Comment on above: Order Comment: Speci men Type: BLOOD SPECIMEN Ordering Facility: [facility] Address: [address] [place] [address] Performed By: #### 2 4321-2 #### [facility] CLIA [id number] [address] MCV (RBC) [Entitic vol] 101.1 fL High 80.0-100.0 [facility] Comment on above: Order Comment: Speci men Type: BLOOD SPECIMEN Ordering Facility: [facility] Address: [address] [place] [address] Performed By: #### 2 4321-2 #### [facility] CLIA [id number] [address] Monocytes (Bld) [#/Vol] 0.74 10*3/uL Normal <0.87 [facility] Comment on above: Order Comment: Speci men Type: BLOOD SPECIMEN Ordering Facility: [facility] Address: [address] [place] [address] Performed By: #### 2 4321-2 #### [facility] CLIA [id number] [address] Monocytes/100 WBC (Bld) 16.7 % Normal [facility] Comment on above: Order Comment: Speci men Type: BLOOD SPECIMEN Ordering Facility: [facility] Address: [address] [place] [address] Performed By: #### 2 4321-2 #### [facility] CLIA [id number] [address] [place] Neutrophils (Bld) [#/Vol] 3.20 10*3/uL Normal 1.45-7.50 [facility] Comment on above: Order Comment: Speci men Type: BLOOD SPECIMEN Ordering Facility: [facility] Address: [address] [place] [address] Performed By: #### 2 4321-2 #### [facility] CLIA [id number] [address] Neutrophils/100 WBC (Bld) 72.1 % Normal [facility] Comment on above: Order Comment: Speci men Type: BLOOD SPECIMEN Ordering Facility: [facility] Address: [address] [place] [address] Performed By: #### 2 4321-2 #### [facility] CLIA [id number] [address] [place] Nucleated RBC (Bld) [#/Vol] 10*3/uL Normal <0.01 [facility] Comment on above: Order Comment: Speci men Type: BLOOD SPECIMEN Ordering Facility: [facility] Address: [address] [place] [address] Performed By: #### 2 4321-2 #### [facility] CLIA [id number] [address] [place] Nucleated RBC/100 WBC (Bld) [Ratio] 0.0 /100 WBC Normal [facility] Comment on above: Order Comment: Speci men Type: BLOOD SPECIMEN Ordering Facility: [facility] Address: [address] [place] [address] Performed By: #### 2 4321-2 #### [facility] CLIA [id number] [address] [place] Platelet mean volume (Bld) [Entitic vol] 9.1 fL Normal 9.0-12.7 [facility] Comment on above: Order Comment: Speci men Type: BLOOD SPECIMEN Ordering Facility: [facility] Address: [address] [place] [address] Performed By: #### 2 4321-2 #### [facility] CLIA [id number] [address] Platelets (Bld) [#/Vol] 155 10*3/uL Normal 150-400 [facility] Comment on above: Order Comment: Speci men Type: BLOOD SPECIMEN Ordering Facility: [facility] Address: [address] [place] [address] Performed By: #### 2 4321-2 #### [facility] CLIA [id number] [address] RBC (Bld) [#/Vol] 3.56 10*6/uL Low 3.90-5.20 [facility] Comment on above: Order Comment: Speci men Type: BLOOD SPECIMEN Ordering Facility: [facility] Address: [address] [place] [address] Performed By: #### 2 4321-2 #### [facility] CLIA [id number] [address] WBC (Bld) [#/Vol] 4.43 10*3/uL Normal 3.70-11.00 [facility] Comment on above: Order Comment: Speci men Type: BLOOD SPECIMEN Ordering Facility: [facility] Address: [address] [place] [address] Performed By: #### 2 4321-2 #### [facility] CLIA [id number] [address] CNDSon 02-08-2025 CNDS HNO ID: [id number] Author: LISA FISH MD Service: Hospital Medicine [...] AND MEDICAL TEAM: My Main Hospital Doctor: iLsa Fish,* Primary Care Provider: Radha Fish MD My Medical Team Members: Treatment [...] pulmonary hypertension and who was transferred from [facility] where she had presented with rectus [...] pleasant 89-year-old female presents as transfer from [facility] for rectus sheath hematoma. She was [...] MD Consulting: Susana Haji MD Primary Service: [facility] Consulting: Adelia Sagastume MD FINAL DIAGNOSIS: Rectus [...] results. FOLLOW-UP APPOINTMENTS ALREADY SCHEDULED WITH A [facility] PROVIDER: No future appointments. Discharge Information Row Name ED to Hosp-Admission (Current) from 01/31/2025 in [facility] Phone# [phone] (more content not included)... Normal [facility] ECHOon 02-08-2025 Echocardiography Echocardiography Report: Transthoracic Echo [facility] Date of service: 02/08/2025 12:45:03 PM [facility] Ordering physician: HIMANSHU DECKER Exam indication: Initial [...] * * Final * * * CC [facility] : [id number] ISUID Normal [facility] CBC W Auto Differential pane l (Bld)on 02-07-2025 Basophils (Bld) [#/Vol] 0.03 10*3/uL Normal <0.11 [facility] Comment on above: Order Comment: Speci men Type: BLOOD SPECIMEN Ordering Facility: [facility] Address: [address] [place] [address] Performed By: #### 3 4528-0 #### [facility] CLIA [id number] 1 [place] [address] [place] Basophils/100 WBC (Bld) 0.6 % Normal [facility] Comment on above: Order Comment: Speci men Type: BLOOD SPECIMEN Ordering Facility: [facility] Address: [address] [place] [address] Performed By: #### 3 4528-0 #### [facility] CLIA [id number] [address] Differential cell count method Nom (Bld) Auto Normal [facility] Comment on above: Order Comment: Speci men Type: BLOOD SPECIMEN Ordering Facility: [facility] Address: [address] [place] [address] Performed By: #### 3 4528-0 #### [facility] CLIA [id number] [address] Eosinophils (Bld) [#/Vol] 0.05 10*3/uL Normal <0.46 [facility] Comment on above: Order Comment: Speci men Type: BLOOD SPECIMEN Ordering Facility: [facility] Address: [address] [place] [address] Performed By: #### 3 4528-0 #### [facility] CLIA [id number] [address] Eosinophils/100 WBC (Bld) 1.0 % Normal [facility] Comment on above: Order Comment: Speci men Type: BLOOD SPECIMEN Ordering Facility: [facility] Address: [address] [place] [address] Performed By: #### 3 4528-0 #### [facility] CLIA [id number] [address] Erythrocyte distribution width (RBC) [Ratio] 16.0 % High 11.5-15.0 [facility] Comment on above: Order Comment: Speci men Type: BLOOD SPECIMEN Ordering Facility: [facility] Address: [address] [place] [address] Performed By: #### 3 4528-0 #### [facility] CLIA [id number] [address] [place] Hematocrit (Bld) [Volume fraction] 33.4 % Low 36.0-46.0 [facility] Comment on above: Order Comment: Speci men Type: BLOOD SPECIMEN Ordering Facility: [facility] Address: [address] [place] [address] Performed By: #### 3 4528-0 #### [facility] CLIA [id number] [address] [place] Hemoglobin (Bld) [Mass/Vol] 10.8 g/dL Low 11.5-15.5 [facility] Comment on above: Order Comment: Speci men Type: BLOOD SPECIMEN Ordering Facility: [facility] Address: [facility] [place] [address] Performed By: #### 3 4528-0 #### [facility] CLIA [id number] [address] [place] Immature granulocytes (Bld) [#/Vol] 0.05 10*3/uL Normal <0.10 [facility] Comment on above: Order Comment: Speci men Type: BLOOD SPECIMEN Ordering Facility: [facility] Address: [address] [place] [address] Performed By: #### 3 4528-0 #### [facility] CLIA [id number] [address] [place] Immature granulocytes/100 WBC (Bld) 1.0 % Normal [facility] Comment on above: Order Comment: Speci men Type: BLOOD SPECIMEN Ordering Facility: [facility] Address: [address] [place] [address] Performed By: #### 3 4528-0 #### [facility] CLIA [id number] 1 [place] [address] [place] Lymphocytes (Bld) [#/Vol] 0.52 10*3/uL Low 1.00-4.00 [facility] Comment on above: Order Comment: Speci men Type: BLOOD SPECIMEN Ordering Facility: [facility] Address: [address] [place] [address] Performed By: #### 3 4528-0 #### [facility] CLIA [id number] [address] Lymphocytes/100 WBC (Bld) 10.8 % Normal [facility] Comment on above: Order Comment: Speci men Type: BLOOD SPECIMEN Ordering Facility: [facility] Address: [address] [place] [address] Performed By: #### 3 4528-0 #### [facility] CLIA [id number] [address] MCH (RBC) [Entitic mass] 32.0 pg Normal 26.0-34.0 [facility] Comment on above: Order Comment: Speci men Type: BLOOD SPECIMEN Ordering Facility: [facility] Address: [address] [place] [address] Performed By: #### 3 4528-0 #### [facility] CLIA [id number] [address] [place] MCHC (RBC) [Mass/Vol] 32.3 g/dL Normal 30.5-36.0 [facility] Comment on above: Order Comment: Speci men Type: BLOOD SPECIMEN Ordering Facility: [facility] Address: [address] [place] [address] Performed By: #### 3 4528-0 #### [facility] CLIA [id number] [address] MCV (RBC) [Entitic vol] 98.8 fL Normal 80.0-100.0 [facility] Comment on above: Order Comment: Speci men Type: BLOOD SPECIMEN Ordering Facility: [facility] Address: [address] [place] [address] Performed By: #### 3 4528-0 #### [facility] CLIA [id number] [address] Monocytes (Bld) [#/Vol] 0.76 10*3/uL Normal <0.87 [facility] Comment on above: Order Comment: Speci men Type: BLOOD SPECIMEN Ordering Facility: [facility] Address: [address] [place] [address] Performed By: #### 3 4528-0 #### [facility] CLIA [id number] [address] [place] Monocytes/100 WBC (Bld) 15.7 % Normal [facility] Comment on above: Order Comment: Speci men Type: BLOOD SPECIMEN Ordering Facility: [facility] Address: [address] [place] [address] Performed By: #### 3 4528-0 #### [facility] CLIA [id number] [address] [place] Neutrophils (Bld) [#/Vol] 3.42 10*3/uL Normal 1.45-7.50 [facility] Comment on above: Order Comment: Speci men Type: BLOOD SPECIMEN Ordering Facility: [facility] Address: [address] [place] [address] Performed By: #### 3 4528-0 #### [facility] CLIA [id number] [address] [place] Neutrophils/100 WBC (Bld) 70.9 % Normal [facility] Comment on above: Order Comment: Speci men Type: BLOOD SPECIMEN Ordering Facility: [facility] Address: [address] [place] [address] Performed By: #### 3 4528-0 #### [facility] CLIA [id number] [address] [place] Nucleated RBC (Bld) [#/Vol] 10*3/uL Normal <0.01 [facility] Comment on above: Order Comment: Speci men Type: BLOOD SPECIMEN Ordering Facility: [facility] Address: [address] [place] [address] Performed By: #### 3 4528-0 #### [facility] CLIA [id number] [address] [place] Nucleated RBC/100 WBC (Bld) [Ratio] 0.0 /100 WBC Normal [facility] Comment on above: Order Comment: Speci men Type: BLOOD SPECIMEN Ordering Facility: [facility] Address: [address] [place] [address] Performed By: #### 3 4528-0 #### [facility] CLIA [id number] [address] [place] Platelet mean volume (Bld) [Entitic vol] 9.7 fL Normal 9.0-12.7 [facility] Comment on above: Order Comment: Speci men Type: BLOOD SPECIMEN Ordering Facility: [facility] Address: [address] [place] [address] Performed By: #### 3 4528-0 #### [facility] CLIA [id number] [address] [place] Platelets (Bld) [#/Vol] 158 10*3/uL Normal 150-400 [facility] Comment on above: Order Comment: Speci men Type: BLOOD SPECIMEN Ordering Facility: [facility] Address: [address] [place] [address] Performed By: #### 3 4528-0 #### [facility] CLIA [id number] [address] [place] RBC (Bld) [#/Vol] 3.38 10*6/uL Low 3.90-5.20 [facility] Comment on above: Order Comment: Speci men Type: BLOOD SPECIMEN Ordering Facility: [facility] Address: [address] [place] [address] Performed By: #### 3 4528-0 #### [facility] CLIA [id number] [address] [place] WBC (Bld) [#/Vol] 4.83 10*3/uL Normal 3.70-11.00 [facility] Comment on above: Order Comment: Speci men Type: BLOOD SPECIMEN Ordering Facility: [facility] Address: [address] [place] [address] Performed By: #### 3 4528-0 #### [facility] CLIA [id number] [address] [place] NUTRITIONon 02-07-2025 NUTRITION HNO ID: [id number] Author: DIONICIO ALVAREZ DTR Service: Nutrition Therapy Author Type: Ground [employer]or Type: Nutrition Filed: 02/07/2025 13:40 Note Text: NUTRITION THERAPY SERVICE SUPERVISOR NOTE SERVICE DATE: 02/07/2025 SERVICE TIME: Start Time: 1019 Visit Type: Length of Stay, Diet Education Patient reports poor appetite prior to this admission over 1-2 months. Weight loss is probably masked by fluid retention. Patient dislikes current diet. Unable to liberalize diet related to hyperlipidemia diagnosis. Plan of Care: Follow-Up: [facility] Reassessment Nursing Admission Assessment Malnutrition Score: 1 [...] DATE: February 07, 2025 TIME: 1:36 PM [facility] PT EDon 02-07-2025 PT ED HNO ID: [id number] Author: DIONICIO ALVAREZ DTR Service: Nutrition Therapy Author Type: Ground [employer] Contractor Type: Patient Education Filed: 02/07/2025 13:40 Note [...] 07, 2025 TIME: 1:40 PM PAGER: Normal [facility] PT panel Coag (PPP)on 2024 INR Coag (PPP) [Relative time] 1.1 {INR} Normal 0.9-1.3 [facility] Comment on above: Order Comment: Claudia howell Type: BLOOD SPECIMEN Ordering Facility: [facility] Address: [address] [place] [address] Result Comment: [place] min K Antagonist (VKA) Therapeutic Range: INR 2 to 3 (Target INR of 2.5) Note: For patients treated with VKA drugs, such as warfarin, the [employer] 2012 Guideline recommends [...] Chest 2012, 141:7S-47S Madelaine RA, et al. [facility] 2017, 70: 252-289 Performed By: #### 3 4528-0 #### [facility] CLIA [id number] [address] OF [facility] PT Coag (PPP) [Time] 12.3 s Normal 9.7-13.0 [facility] Comment on above: Order Comment: Claudia howell Type: BLOOD SPECIMEN Ordering Facility: [facility] Address: [address] [place] [address] Performed By: #### 3 4528-0 #### [facility] CLIA [id number] [address] STATES OF [facility] CBC W Auto Differential pane l (Bld)on 02-06-2025 Basophils (Bld) [#/Vol] 0.03 10*3/uL Normal <0.11 [facility] Comment on above: Order Comment: Speci men Type: BLOOD SPECIMEN Ordering Facility: [facility] Address: [address] [place] [address] Performed By: #### 3 4528-0 #### [facility] CLIA [id number] [address] Basophils/100 WBC (Bld) 0.6 % Normal [facility] Comment on above: Order Comment: Speci men Type: BLOOD SPECIMEN Ordering Facility: [facility] Address: [address] [place] [address] Performed By: #### 3 4528-0 #### [facility] CLIA [id number] [address] Differential cell count method Nom (Bld) Auto Normal [facility] Comment on above: Order Comment: Speci men Type: BLOOD SPECIMEN Ordering Facility: [facility] Address: [address] [place] [address] Performed By: #### 3 4528-0 #### [facility] CLIA [id number] [address] OF [facility] Eosinophils (Bld) [#/Vol] 0.06 10*3/uL Normal <0.46 [facility] Comment on above: Order Comment: Speci men Type: BLOOD SPECIMEN Ordering Facility: [facility] Address: [address] [place] [address] Performed By: #### 3 4528-0 #### [facility] CLIA [id number] [address] Eosinophils/100 WBC (Bld) 1.1 % Normal [facility] Comment on above: Order Comment: Speci men Type: BLOOD SPECIMEN Ordering Facility: [facility] Address: [address] [place] [address] Performed By: #### 3 4528-0 #### [facility] CLIA [id number] [address] Erythrocyte distribution width (RBC) [Ratio] 15.8 % High 11.5-15.0 [facility] Comment on above: Order Comment: Speci men Type: BLOOD SPECIMEN Ordering Facility: [facility] Address: [address] [place] [address] Performed By: #### 3 4528-0 #### [facility] CLIA [id number] [address] [place] Hematocrit (Bld) [Volume fraction] 32.5 % Low 36.0-46.0 [facility] Comment on above: Order Comment: Speci men Type: BLOOD SPECIMEN Ordering Facility: [facility] Address: [address] [place] [address] Performed By: #### 3 4528-0 #### [facility] CLIA [id number] [address] [place] Hemoglobin (Bld) [Mass/Vol] 10.5 g/dL Low 11.5-15.5 [facility] Comment on above: Order Comment: Speci men Type: BLOOD SPECIMEN Ordering Facility: [facility] Address: [address] [place] [address] Performed By: #### 3 4528-0 #### [facility] CLIA [id number] [address] OF [facility] Immature granulocytes (Bld) [#/Vol] 0.03 10*3/uL Normal <0.10 [facility] Comment on above: Order Comment: Speci men Type: BLOOD SPECIMEN Ordering Facility: [facility] Address: [address] [place] [address] Performed By: #### 3 4528-0 #### [facility] CLIA [id number] [address] Immature granulocytes/100 WBC (Bld) 0.6 % Normal [facility] Comment on above: Order Comment: Speci men Type: BLOOD SPECIMEN Ordering Facility: [facility] Address: [address] [place] [address] Performed By: #### 3 4528-0 #### [facility] CLIA [id number] [address] [place] Lymphocytes (Bld) [#/Vol] 0.82 10*3/uL Low 1.00-4.00 [facility] Comment on above: Order Comment: Speci men Type: BLOOD SPECIMEN Ordering Facility: [facility] Address: [address] [place] [address] Performed By: #### 3 4528-0 #### [facility] CLIA [id number] [address] Lymphocytes/100 WBC (Bld) 15.4 % Normal [facility] Comment on above: Order Comment: Speci men Type: BLOOD SPECIMEN Ordering Facility: [facility] Address: [address] [place] [address] Performed By: #### 3 4528-0 #### [facility] CLIA [id number] [address] MCH (RBC) [Entitic mass] 31.6 pg Normal 26.0-34.0 [facility] Comment on above: Order Comment: Speci men Type: BLOOD SPECIMEN Ordering Facility: [facility] Address: [address] [place] [address] Performed By: #### 3 4528-0 #### [facility] CLIA [id number] [address] OF [facility] MCHC (RBC) [Mass/Vol] 32.3 g/dL Normal 30.5-36.0 [facility] Comment on above: Order Comment: Speci men Type: BLOOD SPECIMEN Ordering Facility: [facility] Address: [address] [place] [address] Performed By: #### 3 4528-0 #### [facility] CLIA [id number] [address] [facility] (RBC) [Entitic vol] 97.9 fL Normal 80.0-100.0 [facility] Comment on above: Order Comment: Speci men Type: BLOOD SPECIMEN Ordering Facility: [facility] Address: [address] [place] [address] Performed By: #### 3 4528-0 #### [facility] CLIA [id number] [address] [place] Monocytes (Bld) [#/Vol] 0.92 10*3/uL High <0.87 [facility] Comment on above: Order Comment: Speci men Type: BLOOD SPECIMEN Ordering Facility: [facility] Address: [address] [place] [address] Performed By: #### 3 4528-0 #### [facility] CLIA [id number] [address] [place] Monocytes/100 WBC (Bld) 17.3 % Normal A [facility] Comment on above: Order Comment: Speci men Type: BLOOD SPECIMEN Ordering Facility: [facility] Address: [address] [place] [address] Performed By: #### 3 4528-0 #### [facility] CLIA [id number] [address] [place] Neutrophils (Bld) [#/Vol] 3.45 10*3/uL Normal 1.45-7.50 [facility] Comment on above: Order Comment: Speci men Type: BLOOD SPECIMEN Ordering Facility: [facility] Address: [address] [place] [address] Performed By: #### 3 4528-0 #### [facility] CLIA [id number] [address] [place] Neutrophils/100 WBC (Bld) 65.0 % Normal [facility] Comment on above: Order Comment: Speci men Type: BLOOD SPECIMEN Ordering Facility: [facility] Address: [address] [place] [address] Performed By: #### 3 4528-0 #### [facility] CLIA [id number] 1 [place] [address] [place] Nucleated RBC (Bld) [#/Vol] 10*3/uL Normal <0.01 [facility] Comment on above: Order Comment: Speci men Type: BLOOD SPECIMEN Ordering Facility: [facility] Address: [address] [place] [address] Performed By: #### 3 4528-0 #### [facility] CLIA [id number] [address] [place] Nucleated RBC/100 WBC (Bld) [Ratio] 0.0 /100 WBC Normal [facility] Comment on above: Order Comment: Speci men Type: BLOOD SPECIMEN Ordering Facility: [facility] Address: [address] [place] [address] Performed By: #### 3 4528-0 #### [facility] CLIA [id number] [address] [place] Platelet mean volume (Bld) [Entitic vol] 8.9 fL Low 9.0-12.7 [facility] Comment on above: Order Comment: Speci men Type: BLOOD SPECIMEN Ordering Facility: [facility] Address: [address] [place] [address] Performed By: #### 3 4528-0 #### [facility] CLIA [id number] [address] [place] Platelets (Bld) [#/Vol] 141 10*3/uL Low 150-400 [facility] Comment on above: Order Comment: Speci men Type: BLOOD SPECIMEN Ordering Facility: [facility] Address: [address] [place] [address] Performed By: #### 3 4528-0 #### [facility] CLIA [id number] 1 [place] [address] [place] RBC (Bld) [#/Vol] 3.32 10*6/uL Low 3.90-5.20 [facility] Comment on above: Order Comment: Speci men Type: BLOOD SPECIMEN Ordering Facility: [facility] Address: [address] [place] [address] Performed By: #### 3 4528-0 #### [facility] CLIA [id number] [address] [place] WBC (Bld) [#/Vol] 5.31 10*3/uL Normal 3.70-11.00 [facility] Comment on above: Order Comment: Speci men Type: BLOOD SPECIMEN Ordering Facility: [facility] Address: [address] [place] [address] Performed By: #### 3 4528-0 #### [facility] CLIA [id number] 1 [place] [address] [facility] CONSULTon 02-06-2025 CONSULT HNO ID: [id number] Author: KYLIE VILLATORO MD Service: Clinical Cardiology Author Type: Physician Type: Consults Filed: 02/06/2025 17:16 Note Text: CONSULT: CARDIOLOGY SERVICE SERVICE DATE: 02/06/2025 SERVICE TIME: 3:30 PM CONSULTING PHYSICIAN: Kylie Villatoro PCP: Radha Fish MD ATTENDING: Himanshu Decker DO REASON [...] pressure 15 mmHg Ms. Avalos presented to [facility] for abdominal discomfort. She was found to [...] BREAST PERC VACUUM/ROTN 12/27/2009 CARDIOVERSION 03/03/2011 In [facility] [place] FEMORAL SUPRACONDYLAR FRACTURE W/XTN Left 08/29/2021 PAST SURGICAL HISTORY OF right ankle ORIF for triamalleolar fracture S $ KNEE TOTAL ARTHR PRASHANTH Left 05/07/2015 [facility] [place]. LTK replacement arthroplasty SIGMOIDOSCOPY FLX [...] Yes No Sig: Take one(1) tablet daily. Jumrn-4-YPS-EPA-Fish Oil (FISH OIL) 1,000 mg (120 mg-180 [...] mouth d (more content not included)... Normal [facility] ECG COMPLETEon 02-06-2025 ECG COMPLETE Ventricular Rate : 8 9 BPM QRS Duration : 88 ms Q-T Interval : 386 ms QTC Calculation(Bazett) : 469 ms Calculated R Mantua : 96 degrees Calculated T Mant[place] : 188 degrees ATRIAL FIBRILLATION RIGHTWARD AXIS ST & T WAVE ABNORMALITY, CONSIDER INFEROLATERAL ISCHEMIA ABNORMAL ECG WHEN COMPARED WITH ECG OF 30-Aug-2021 12:25, SIGNIFICANT CHANGES HAVE OCCURRED Confirmed by MD CASSIDY VINAY ([id number]) on 02/06/2025 5:38:40 PM NAME : ANA MARIA AVALOS PID : [id number] : 1935 Gender : Female Race : ORD : [id number] Procedure Date : Feb 06 2025 10:07:19 Edit Date : Feb 06 2025 17:38:42 Diagnosis: ATRIAL FIBRILLATION RIGHTWARD AXIS ST & T WAVE ABNORMALITY, CONSIDER INFEROLATERAL ISCHEMIA ABNORMAL ECG WHEN COMPARED WITH ECG OF 30-Aug-2021 12:25, SIGNIFICANT CHANGES HAVE OCCURRED Confirmed by MD CASSIDY VINAY ([id number]) on 02/06/2025 5:38:40 PM Test Reason : Arrhythmia Location : [address] : [place] [address] Overread By : MD CASSIDY VINAY Edited By : MD CASSIDY VINAY Referred By : , Acquired by : JACK ROWE Normal [facility] PT panel Coag (PPP)on 2024 INR Coag (PPP) [Relative time] 1.3 {INR} Normal 0.9-1.3 [facility] Comment on above: Order Comment: Claudia howell Type: BLOOD SPECIMEN Ordering Facility: [facility] Address: [address] [place] [address] Result Comment: [place] min K Antagonist (VKA) Therapeutic Range: INR 2 to 3 (Target INR of 2.5) Note: For patients treated with VKA drugs, such as warfarin, the [place] [employer] 2012 Guideline recommends [...] Chest 2012, 141:7S-47S Madelaine RA, et al. JAC 2017, 70: 252-289 Performed By: #### 3 4528-0 #### [facility] CLIA [id number] [address] STATES OF [facility] PT Coag (PPP) [Time] 13.5 s High 9.7-13.0 [facility] Comment on above: Order Comment: Claudia howell Type: BLOOD SPECIMEN Ordering Facility: [facility] Address: [address] [place] [address] Performed By: #### 3 4528-0 #### [facility] CLIA [id number] [address] OF [facility] THERAPY NTon 02-06-2025 THERAPY NT HNO ID: [id number] Author: ELLYN AUGUST, OTR/L Service: Occupational Therapy Author Type: Occupational Therapist Type: Therapy (PT/OT/Speech/Resp) Filed: 02/06/2025 10:46 Note Text: Occupational Therapy Evaluation Summary SERVICE DATE: 02/06/2025 SERVICE TIME: 0916 to 1005 ROOM: [place] [address] OT 6 Clicks Score: 23 DISCHARGE RECOMMENDATIONS [...] Bed/Chair Alarm CURRENT HOSPITAL COURSE Presented to [facility] ED with abd pain--found to have abd [...] Unsteadiness on feet TREATMENT INTERVENTIONS Evaluation, Self Correction Management (07459) Timed Code Treatment (minutes): 24 Skilled Treatment Time (minutes): 49 $ Evaluation - Low (17452) Billed Units: 1 unit Self Correction Management (84338) Treatment Minutes: 24 $ Self Correction Management (33268) Billed Units: 2 units TRAINING AND EDUCATION PROVIDED Energy Conservation, Transfer - Sit to Stand, Transfer - Toilet/Commode, Toileting , Standing Balance to Improve [place] with ADLs/Self-Care, Sitting Balance to Improve [place] with ADLs/Self-Care, Role of Occupational Therapy, Safety/Judgment, [...] 4- dist (more content not included)... Normal [facility] Basic metabolic 2000 panelon 02-05-2025 Anion gap [Moles/Vol] 10 mmol/L Normal 8-15 [facility] Comment on above: Order Comment: Speci men Type: BLOOD SPECIMENOrdering Facility: [facility] Address: [address] [place] [address] Performed By: #### 2 4321-2 ####[facility] [id number] [address] [place] Calcium [Mass/Vol] 8.7 mg/dL Normal 8.5-10.2 [facility] Comment on above: Order Comment: Speci men Type: BLOOD SPECIMENOrdering Facility: [facility] Address: [address] [place] [address] Performed By: #### 2 4321-2 ####[facility] [id number] [address] [place] Chloride [Moles/Vol] 100 mmol/L Normal 98-107 [facility] Comment on above: Order Comment: Speci men Type: BLOOD SPECIMENOrdering Facility: [facility] Address: [address] [place] [address] Performed By: #### 2 4321-2 ####[facility] [id number] [place] [address] [place] CO2 [Moles/Vol] 24 mmol/L Normal 22-30 [facility] Comment on above: Order Comment: Speci men Type: BLOOD SPECIMENOrdering Facility: [facility] Address: [address] [place] [address] Performed By: #### 2 4321-2 ####[facility] [id number] [address] [place] Creatinine [Mass/Vol] 1.03 mg/dL High 0.58-0.96 [facility] Comment on above: Order Comment: Speci men Type: BLOOD SPECIMENOrdering Facility: [facility] Address: [address] [place] [address] Performed By: #### 2 4321-2 ####[facility]CLIA [id number] [address] [place] Creatinine and Glomerular filtration rate.predicted panel (S/P/Bld) 52 mL/min/1.73m??? Low >=60 [facility] Comment on above: Order Comment: Claudia howell Type: BLOOD SPECIMENOrdering Facility: [facility] Address: [address] [place] [address] Result Comment: Kiki mated Glomerular Filtration Rate [...] actual GFR. Performed By: #### 2 4321-2 ####[facility] [id number] [place] [address] [place] Glucose [Mass/Vol] 122 mg/dL High 74-99 [facility] Comment on above: Order Comment: Claudia howell Type: BLOOD SPECIMENOrdering Facility: [facility] Address: [address] [place] [address] Result Comment: The [place] [employer] (ADA) provides guidance for cutoff [...] Standards of Medical Care in Diabetes 2016, [place] [employer]. Diabetes Care. 2016.39(Suppl 1). Performed By: #### 2 4321-2 ####[facility]IA [id number] [place] [address] [place] Potassium [Moles/Vol] 4.9 mmol/L Normal 3.7-5.1 [facility] Comment on above: Order Comment: Claudia howell Type: BLOOD SPECIMENOrdering Facility: [facility] Address: [address] [place], [place] [address] Performed By: #### 2 4321-2 ####[facility]IA [id number] [address] Sodium [Moles/Vol] 134 mmol/L Low 136-144 [facility] Comment on above: Order Comment: Speci men Type: BLOOD SPECIMENOrdering Facility: [facility] Address: [address] [place] [address] Performed By: #### 2 4321-2 ####[facility]IA [id number] [address] [place] [facility] Urea nitrogen [Mass/Vol] 25 mg/dL High 7-21 [facility] Comment on above: Order Comment: Speci men Type: BLOOD SPECIMENOrdering Facility: [facility] Address: [address] [place] [address] Performed By: #### 2 4321-2 ####[facility] [id number] [address] CBC panel Auto (Bld)on 02-05 Erythrocyte distribution width (RBC) [Ratio] 15.7 % High 11.5-15.0 [facility] Comment on above: Order Comment: Speci men Type: BLOOD SPECIMEN Ordering Facility: [facility] Address: [address] [place] [address] Performed By: #### 3 4528-0 #### [facility] CLIA [id number] [address] [place] [facility] Hematocrit (Bld) [Volume fraction] 37.2 % Normal 36.0-46.0 [facility] Comment on above: Order Comment: Speci men Type: BLOOD SPECIMEN Ordering Facility: [facility] Address: [address] [place] [address] Performed By: #### 3 4528-0 #### [facility] CLIA [id number] [address] [place] Hemoglobin (Bld) [Mass/Vol] 11.6 g/dL Normal 11.5-15.5 [facility] Comment on above: Order Comment: Speci men Type: BLOOD SPECIMEN Ordering Facility: [facility] Address: [address] [place] [address] Performed By: #### 3 4528-0 #### [facility] CLIA [id number] [address] MCH (RBC) [Entitic mass] 31.7 pg Normal 26.0-34.0 [facility] Comment on above: Order Comment: Speci men Type: BLOOD SPECIMEN Ordering Facility: [facility] Address: [address] [place] [address] Performed By: #### 3 4528-0 #### [facility] CLIA [id number] [address] MCHC (RBC) [Mass/Vol] 31.2 g/dL Normal 30.5-36.0 [facility] Comment on above: Order Comment: Speci men Type: BLOOD SPECIMEN Ordering Facility: [facility] Address: [address] [place] [address] Performed By: #### 3 4528-0 #### [facility] CLIA [id number] [address] MCV (RBC) [Entitic vol] 101.6 fL High 80.0-100.0 [facility] Comment on above: Order Comment: Speci men Type: BLOOD SPECIMEN Ordering Facility: [facility] Address: [address] [place] [address] Performed By: #### 3 4528-0 #### [facility] CLIA [id number] [address] Nucleated RBC (Bld) [#/Vol] 10*3/uL Normal <0.01 [facility] Comment on above: Order Comment: Speci men Type: BLOOD SPECIMEN Ordering Facility: [facility] Address: [address] [place] [address] Performed By: #### 3 4528-0 #### [facility] CLIA [id number] [address] Platelet mean volume (Bld) [Entitic vol] 9.2 fL Normal 9.0-12.7 [facility] Comment on above: Order Comment: Speci men Type: BLOOD SPECIMEN Ordering Facility: [facility] Address: [address] [place] [address] Performed By: #### 3 4528-0 #### [facility] CLIA [id number] [address] [place] Platelets (Bld) [#/Vol] 168 10*3/uL Normal 150-400 [facility] Comment on above: Order Comment: Speci men Type: BLOOD SPECIMEN Ordering Facility: [facility] Address: [address] [place] [address] Performed By: #### 3 4528-0 #### [facility] CLIA [id number] [address] RBC (Bld) [#/Vol] 3.66 10*6/uL Low 3.90-5.20 [facility] Comment on above: Order Comment: Speci men Type: BLOOD SPECIMEN Ordering Facility: [facility] Address: [address] [place] [address] Performed By: #### 3 4528-0 #### [facility] CLIA [id number] [address] WBC (Bld) [#/Vol] 5.27 10*3/uL Normal 3.70-11.00 [facility] Comment on above: Order Comment: Speci men Type: BLOOD SPECIMEN Ordering Facility: [facility] Address: [address] [place] [address] Performed By: #### 3 4528-0 #### [facility] CLIA [id number] [address] PT panel Coag (PPP)on 2024 INR Coag (PPP) [Relative time] 1.3 {INR} Normal 0.9-1.3 [facility] Comment on above: Order Comment: Speci men Type: BLOOD SPECIMEN Ordering Facility: [facility] Address: [address] [place] [address] Result Comment: [place] min K Antagonist (VKA) Therapeutic Range: INR 2 to 3 (Target INR of 2.5) Note: For patients treated with VKA drugs, such as warfarin, the [place] [employer] 2012 Guideline recommends [...] Chest 2012, 141:7S-47S Madelaine RA, et al. [facility] 2017, 70: 252-289 Performed By: #### 3 4528-0 #### [facility] CLIA [id number] [address] STATES OF [facility] PT Coag (PPP) [Time] 14.2 s High 9.7-13.0 [facility] Comment on above: Order Comment: Claudia howell Type: BLOOD SPECIMEN Ordering Facility: [facility] Address: [address] [place] [address] Performed By: #### 3 4528-0 #### [facility] CLIA [id number] [address] [place] [facility] CBC W Auto Differential pane l (Bld)on 02-04-2025 Basophils (Bld) [#/Vol] 0.04 10*3/uL Normal <0.11 [facility] Comment on above: Order Comment: Claudia howell Type: BLOOD SPECIMEN Ordering Facility: [facility] Address: [address] [place] [address] Performed By: #### 3 4528-0 #### [facility] CLIA [id number] [address] [place] [address] [place] Basophils/100 WBC (Bld) 0.6 % Normal A [facility] Comment on above: Order Comment: Speci men Type: BLOOD SPECIMEN Ordering Facility: [facility] Address: [address] [place] [address] Performed By: #### 3 4528-0 #### [facility] CLIA [id number] [address] Differential cell count method Nom (Bld) Auto Normal [facility] Comment on above: Order Comment: Speci men Type: BLOOD SPECIMEN Ordering Facility: [facility] Address: [address] [place] [address] Performed By: #### 3 4528-0 #### [facility] CLIA [id number] [address] Eosinophils (Bld) [#/Vol] 0.12 10*3/uL Normal <0.46 [facility] Comment on above: Order Comment: Speci men Type: BLOOD SPECIMEN Ordering Facility: [facility] Address: [address] [place] [address] Performed By: #### 3 4528-0 #### [facility] CLIA [id number] [address] Eosinophils/100 WBC (Bld) 1.9 % Normal [facility] Comment on above: Order Comment: Speci men Type: BLOOD SPECIMEN Ordering Facility: [facility] Address: [address] [place] [address] Performed By: #### 3 4528-0 #### [facility] CLIA [id number] [address] Erythrocyte distribution width (RBC) [Ratio] 14.9 % Normal 11.5-15.0 [facility] Comment on above: Order Comment: Speci men Type: BLOOD SPECIMEN Ordering Facility: [facility] Address: [address] [place] [address] Performed By: #### 3 4528-0 #### [facility] CLIA [id number] [address] [place] Hematocrit (Bld) [Volume fraction] 36.4 % Normal 36.0-46.0 [facility] Comment on above: Order Comment: Speci men Type: BLOOD SPECIMEN Ordering Facility: [facility] Address: [address] [place] [address] Performed By: #### 3 4528-0 #### [facility] CLIA [id number] [address] [place] Hemoglobin (Bld) [Mass/Vol] 11.4 g/dL Low 11.5-15.5 [facility] Comment on above: Order Comment: Speci men Type: BLOOD SPECIMEN Ordering Facility: [facility] Address: [address] [place] [address] Performed By: #### 3 4528-0 #### [facility] CLIA [id number] [address] [place] Immature granulocytes (Bld) [#/Vol] 0.03 10*3/uL Normal <0.10 [facility] Comment on above: Order Comment: Speci men Type: BLOOD SPECIMEN Ordering Facility: [facility] Address: [address] [place] [address] Performed By: #### 3 4528-0 #### [facility] CLIA [id number] [address] OF [facility] Immature granulocytes/100 WBC (Bld) 0.5 % Normal [facility] Comment on above: Order Comment: Speci men Type: BLOOD SPECIMEN Ordering Facility: [facility] Address: [address] [place] [address] Performed By: #### 3 4528-0 #### [facility] CLIA [id number] [address] [place] Lymphocytes (Bld) [#/Vol] 1.21 10*3/uL Normal 1.00-4.00 [facility] Comment on above: Order Comment: Speci men Type: BLOOD SPECIMEN Ordering Facility: [facility] Address: [address] [place] [address] Performed By: #### 3 4528-0 #### [facility] CLIA [id number] [address] Lymphocytes/100 WBC (Bld) 18.7 % Normal [facility] Comment on above: Order Comment: Speci men Type: BLOOD SPECIMEN Ordering Facility: [facility] Address: [address] [place] [address] Performed By: #### 3 4528-0 #### [facility] CLIA [id number] [address] MCH (RBC) [Entitic mass] 31.5 pg Normal 26.0-34.0 [facility] Comment on above: Order Comment: Speci men Type: BLOOD SPECIMEN Ordering Facility: [facility] Address: [address] [place] [address] Performed By: #### 3 4528-0 #### [facility] CLIA [id number] [address] MCHC (RBC) [Mass/Vol] 31.3 g/dL Normal 30.5-36.0 [facility] Comment on above: Order Comment: Speci men Type: BLOOD SPECIMEN Ordering Facility: [facility] Address: [address] [place] [address] Performed By: #### 3 4528-0 #### [facility] CLIA [id number] [address] MCV (RBC) [Entitic vol] 100.6 fL High 80.0-100.0 [facility] Comment on above: Order Comment: Speci men Type: BLOOD SPECIMEN Ordering Facility: [facility] Address: [address] [place] [address] Performed By: #### 3 4528-0 #### [facility] CLIA [id number] [address] Monocytes (Bld) [#/Vol] 1.17 10*3/uL High <0.87 [facility] Comment on above: Order Comment: Speci men Type: BLOOD SPECIMEN Ordering Facility: [facility] Address: [address] [place] [address] Performed By: #### 3 4528-0 #### [facility] CLIA [id number] [address] [place] Monocytes/100 WBC (Bld) 18.1 % Normal A [facility] Comment on above: Order Comment: Speci men Type: BLOOD SPECIMEN Ordering Facility: [facility] Address: [address] [place] [address] Performed By: #### 3 4528-0 #### [facility] CLIA [id number] [address] [place] [address] [place] Neutrophils (Bld) [#/Vol] 3.91 10*3/uL Normal 1.45-7.50 [facility] Comment on above: Order Comment: Speci men Type: BLOOD SPECIMEN Ordering Facility: [facility] Address: [address] [place] [address] Performed By: #### 3 4528-0 #### [facility] CLIA [id number] [address] [place] Neutrophils/100 WBC (Bld) 60.2 % Normal [facility] Comment on above: Order Comment: Speci men Type: BLOOD SPECIMEN Ordering Facility: [facility] Address: [address] [place] [address] Performed By: #### 3 4528-0 #### [facility] CLIA [id number] [address] [place] Nucleated RBC (Bld) [#/Vol] 10*3/uL Normal <0.01 [facility] Comment on above: Order Comment: Speci men Type: BLOOD SPECIMEN Ordering Facility: [facility] Address: [address] [place] [address] Performed By: #### 3 4528-0 #### [facility] CLIA [id number] [address] [place] Nucleated RBC/100 WBC (Bld) [Ratio] 0.0 /100 WBC Normal [facility] Comment on above: Order Comment: Speci men Type: BLOOD SPECIMEN Ordering Facility: [facility] Address: [address] [place] [address] Performed By: #### 3 4528-0 #### [facility] CLIA [id number] [address] Platelet mean volume (Bld) [Entitic vol] 9.5 fL Normal 9.0-12.7 [facility] Comment on above: Order Comment: Speci men Type: BLOOD SPECIMEN Ordering Facility: [facility] Address: [address] [place] [address] Performed By: #### 3 4528-0 #### [facility] CLIA [id number] [address] [place] Platelets (Bld) [#/Vol] 152 10*3/uL Normal 150-400 [facility] Comment on above: Order Comment: Speci men Type: BLOOD SPECIMEN Ordering Facility: [facility] Address: [address] [place] [address] Performed By: #### 3 4528-0 #### [facility] CLIA [id number] [address] [place] RBC (Bld) [#/Vol] 3.62 10*6/uL Low 3.90-5.20 [facility] Comment on above: Order Comment: Speci men Type: BLOOD SPECIMEN Ordering Facility: [facility] Address: [address] [place] [address] Performed By: #### 3 4528-0 #### [facility] CLIA [id number] [address] [place] WBC (Bld) [#/Vol] 6.48 10*3/uL Normal 3.70-11.00 [facility] Comment on above: Order Comment: Speci men Type: BLOOD SPECIMEN Ordering Facility: [facility] Address: [address] [place] [address] Performed By: #### 3 4528-0 #### [facility] CLIA [id number] [address] [place] [address] [place] Basic metabolic 2000 panelon 02-03-2025 Anion gap [Moles/Vol] 9 mmol/L Normal 8-15 [facility] Comment on above: Order Comment: Speci men Type: BLOOD SPECIMENOrdering Facility: [facility] Address: [address] [place] [address] Performed By: #### 2 4321-2 ####[facility] [id number] [place] [address] [place] Calcium [Mass/Vol] 8.5 mg/dL Normal 8.5-10.2 [facility] Comment on above: Order Comment: Speci men Type: BLOOD SPECIMENOrdering Facility: [facility] Address: [address] [place] [address] Performed By: #### 2 4321-2 ####[facility]ORYCLIA [id number] [place] [address] [place] Chloride [Moles/Vol] 101 mmol/L Normal 98-107 [facility] Comment on above: Order Comment: Speci men Type: BLOOD SPECIMENOrdering Facility: [facility] Address: [address] [place] [address] Performed By: #### 2 4321-2 ####[facility]ORYCLIA [id number] [place] [address] [place] CO2 [Moles/Vol] 21 mmol/L Low 22-30 [facility] Comment on above: Order Comment: Speci men Type: BLOOD SPECIMENOrdering Facility: [facility] Address: [address] [place] [address] Performed By: #### 2 4321-2 ####[facility] [id number] [place] [address] [place] Creatinine [Mass/Vol] 1.26 mg/dL High 0.58-0.96 [facility] Comment on above: Order Comment: Speci men Type: BLOOD SPECIMENOrdering Facility: [facility] Address: [address] [place] [address] Performed By: #### 2 4321-2 ####[facility] [id number] [place] [address] [place] Creatinine and Glomerular filtration rate.predicted panel (S/P/Bld) 41 mL/min/1.73m??? Low >=60 [facility] Comment on above: Order Comment: Claudia howell Type: BLOOD SPECIMENOrdering Facility: [facility] Address: [address] [place] [address] Result Comment: Kiki mated Glomerular Filtration Rate [...] actual GFR. Performed By: #### 2 4321-2 ####[facility] [id number] [place] [address] [place] Glucose [Mass/Vol] 122 mg/dL High 74-99 [facility] Comment on above: Order Comment: Claudia howell Type: BLOOD SPECIMENOrdering Facility: [facility] Address: [address] [place] [address] Result Comment: The [place] Diabetes Association (ADA) provides guidance for cutoff [...] Standards of Medical Care in Diabetes 2016, [place] [employer]. Diabetes Care. 2016.39(Suppl 1). Performed By: #### 2 4321-2 ####[facility] [id number] [place] [id number] [place] Potassium [Moles/Vol] 4.8 mmol/L Normal 3.7-5.1 [facility] Comment on above: Order Comment: Speci men Type: BLOOD SPECIMENOrdering Facility: [facility] Address: [address] [place] [address] Performed By: #### 2 4321-2 ####[facility] [id number] [place] [address] [place] Sodium [Moles/Vol] 131 mmol/L Low 136-144 [facility] Comment on above: Order Comment: Speci men Type: BLOOD SPECIMENOrdering Facility: [facility] Address: [address] [place] [address] Performed By: #### 2 4321-2 ####[facility] [id number] [place] [address] [place] Urea nitrogen [Mass/Vol] 34 mg/dL High 7-21 [facility] Comment on above: Order Comment: Speci men Type: BLOOD SPECIMENOrdering Facility: [facility] Address: [address] [place] [address] Performed By: #### 2 4321-2 ####[facility] [id number] [place] [address] [place] Anion gap [Moles/Vol] 9 mmol/L Normal 8-15 [facility] Comment on above: Order Comment: Speci men Type: BLOOD SPECIMEN Ordering Facility: [facility] Address: [address] [place] [address] Performed By: #### 2 4321-2 #### [facility] CLIA [id number] 1 [place] [address] [place] Calcium [Mass/Vol] 9.0 mg/dL Normal 8.5-10.2 [facility] Comment on above: Order Comment: Speci men Type: BLOOD SPECIMEN Ordering Facility: [facility] Address: [address] [place] [address] Performed By: #### 2 4321-2 #### [facility] CLIA [id number] 1 [place] [address] [place] Chloride [Moles/Vol] 101 mmol/L Normal 98-107 [facility] Comment on above: Order Comment: Speci men Type: BLOOD SPECIMEN Ordering Facility: [facility] Address: [address] [place] [address] Performed By: #### 2 4321-2 #### [facility] CLIA [id number] [address] [place] CO2 [Moles/Vol] 22 mmol/L Normal 22-30 [facility] Comment on above: Order Comment: Speci men Type: BLOOD SPECIMEN Ordering Facility: [facility] Address: [address] [place] [address] Performed By: #### 2 4321-2 #### [facility] CLIA [id number] [address] [facility] Creatinine [Mass/Vol] 1.26 mg/dL High 0.58-0.96 [facility] Comment on above: Order Comment: Speci men Type: BLOOD SPECIMEN Ordering Facility: [facility] Address: [address] [place] [address] Performed By: #### 2 4321-2 #### [facility] CLIA [id number] [address] Creatinine and Glomerular filtration rate.predicted panel (S/P/Bld) 41 mL/min/1.73m??? Low >=60 [facility] Comment on above: Order Comment: Speci men Type: BLOOD SPECIMEN Ordering Facility: [facility] Address: [address] [place] [address] Result Comment: Kiki mated Glomerular Filtration Rate [...] GFR. Performed By: #### 2 4321-2 #### [facility] CLIA [id number] [address] Glucose [Mass/Vol] 104 mg/dL High 74-99 [facility] Comment on above: Order Comment: Claudia howell Type: BLOOD SPECIMEN Ordering Facility: [facility] Address: [address] [place] [id number] Result Comment: The [place] Diabetes Association (ADA) provides guidance for cutoff [...] Standards of Medical Care in Diabetes 2016, [place] [employer]. Diabetes Care. 2016.39(Suppl 1). Performed By: #### 2 4321-2 #### [facility] CLIA [id number] [address] [place] [address] [place] Potassium [Moles/Vol] 5.3 mmol/L High 3.7-5.1 [facility] Comment on above: Order Comment: Claudia howell Type: BLOOD SPECIMEN Ordering Facility: [facility] Address: [address] [place] [address] Performed By: #### 2 4321-2 #### [facility] CLIA [id number] 1 [place] [address] [place] Sodium [Moles/Vol] 132 mmol/L Low 136-144 [facility] Comment on above: Order Comment: Claudia howell Type: BLOOD SPECIMEN Ordering Facility[facility] Address: [address] [place] [id number] Performed By: #### 2 4321-2 #### [facility] CLIA [id number] [address] [place] [address] [place] Urea nitrogen [Mass/Vol] 36 mg/dL High 7-21 [facility] Comment on above: Order Comment: Claudia howell Type: BLOOD SPECIMEN Ordering Facility: [facility] Address: [address] [place] [address] Performed By: #### 2 4321-2 #### [facility] CLIA [id number] [address] [place] CBC W Auto Differential pane l (Bld)on 02-03-2025 Basophils (Bld) [#/Vol] 0.05 10*3/uL Normal <0.11 [facility] Comment on above: Order Comment: Speci men Type: BLOOD SPECIMEN Ordering Facility: [facility] Address: [address] [place] [address] Performed By: #### 2 4321-2 #### [facility] CLIA [id number] [address] Basophils/100 WBC (Bld) 0.7 % Normal [facility] Comment on above: Order Comment: Speci men Type: BLOOD SPECIMEN Ordering Facility: [facility] Address: [address] [place] [address] Performed By: #### 2 1-2 #### [facility] CLIA [id number] [address] Differential cell count method Nom (Bld) Auto Normal [facility] Comment on above: Order Comment: Speci men Type: BLOOD SPECIMEN Ordering Facility: [facility] Address: [address] [place] [address] Performed By: #### 2 4321-2 #### [facility] CLIA [id number] [address] [place] Eosinophils (Bld) [#/Vol] 0.10 10*3/uL Normal <0.46 [facility] Comment on above: Order Comment: Speci men Type: BLOOD SPECIMEN Ordering Facility: [facility] Address: [address] [place] [address] Performed By: #### 2 1-2 #### [facility] CLIA [id number] [address] [place] Eosinophils/100 WBC (Bld) 1.4 % Normal [facility] Comment on above: Order Comment: Speci men Type: BLOOD SPECIMEN Ordering Facility: [facility] Address: [address] [place] [address] Performed By: #### 2 4321-2 #### [facility] CLIA [id number] [address] [place] Erythrocyte distribution width (RBC) [Ratio] 14.6 % Normal 11.5-15.0 [facility] Comment on above: Order Comment: Speci men Type: BLOOD SPECIMEN Ordering Facility: [facility] Address: [address] [place] [address] Performed By: #### 2 4321-2 #### [facility] CLIA [id number] [address] [place] Hematocrit (Bld) [Volume fraction] 36.0 % Normal 36.0-46.0 [facility] Comment on above: Order Comment: Speci men Type: BLOOD SPECIMEN Ordering Facility: [facility] Address: [address] [place] [address] Performed By: #### 2 1-2 #### [facility] CLIA [id number] [address] [place] Hemoglobin (Bld) [Mass/Vol] 11.2 g/dL Low 11.5-15.5 [facility] Comment on above: Order Comment: Speci men Type: BLOOD SPECIMEN Ordering Facility: [facility] Address: [address] [place] [address] Performed By: #### 2 1-2 #### [facility] CLIA [id number] [address] [place] Immature granulocytes (Bld) [#/Vol] 10*3/uL Normal <0.10 [facility] Comment on above: Order Comment: Speci men Type: BLOOD SPECIMEN Ordering Facility: [facility] Address: [facility] [place] [address] Performed By: #### 2 4321-2 #### [facility] CLIA [id number] [address] [place] [address] [place] Immature granulocytes/100 WBC (Bld) 0.3 % Normal [facility] Comment on above: Order Comment: Speci men Type: BLOOD SPECIMEN Ordering Facility: [facility] Address: [facility] [place] [address] Performed By: #### 2 4321-2 #### [facility] CLIA [id number] [address] [place] Lymphocytes (Bld) [#/Vol] 1.25 10*3/uL Normal 1.00-4.00 [facility] Comment on above: Order Comment: Speci men Type: BLOOD SPECIMEN Ordering Facility: [facility] Address: [address] [place] [address] Performed By: #### 2 1-2 #### [facility] CLIA [id number] [address] [facility] Lymphocytes/100 WBC (Bld) 17.7 % Normal [facility] Comment on above: Order Comment: Speci men Type: BLOOD SPECIMEN Ordering Facility: [facility] Address: [address] [place] [address] Performed By: #### 2 1-2 #### [facility] CLIA [id number] [address] [place] MCH (RBC) [Entitic mass] 31.4 pg Normal 26.0-34.0 [facility] Comment on above: Order Comment: Speci men Type: BLOOD SPECIMEN Ordering Facility: [facility] Address: [address] [place] [address] Performed By: #### 2 1-2 #### [facility] CLIA [id number] [address] [place] MCHC (RBC) [Mass/Vol] 31.1 g/dL Normal 30.5-36.0 [facility] Comment on above: Order Comment: Speci men Type: BLOOD SPECIMEN Ordering Facility: [facility] Address: [address] [place] [address] Performed By: #### 2 4321-2 #### [facility] CLIA [id number] [address] [place] MCV (RBC) [Entitic vol] 100.8 fL High 80.0-100.0 [facility] Comment on above: Order Comment: Speci men Type: BLOOD SPECIMEN Ordering Facility: [facility] Address: [address] [place] [address] Performed By: #### 2 4321-2 #### [facility] CLIA [id number] [address] [place] Monocytes (Bld) [#/Vol] 1.50 10*3/uL High <0.87 [facility] Comment on above: Order Comment: Speci men Type: BLOOD SPECIMEN Ordering Facility: [facility] Address: [address] [place] [address] Performed By: #### 2 4321-2 #### [facility] CLIA [id number] [address] Monocytes/100 WBC (Bld) 21.2 % Normal [facility] Comment on above: Order Comment: Speci men Type: BLOOD SPECIMEN Ordering Facility: [facility] Address: [address] [place] [address] Performed By: #### 2 4321-2 #### [facility] CLIA [id number] [address] [place] Neutrophils (Bld) [#/Vol] 4.14 10*3/uL Normal 1.45-7.50 [facility] Comment on above: Order Comment: Speci men Type: BLOOD SPECIMEN Ordering Facility: [facility] Address: [address] [place] [address] Performed By: #### 2 4321-2 #### [facility] CLIA [id number] [address] [place] Neutrophils/100 WBC (Bld) 58.7 % Normal [facility] Comment on above: Order Comment: Speci men Type: BLOOD SPECIMEN Ordering Facility: [facility] Address: [address] [place] [address] Performed By: #### 2 4321-2 #### [facility] CLIA [id number] [address] [place] Nucleated RBC (Bld) [#/Vol] 0.02 10*3/uL High <0.01 [facility] Comment on above: Order Comment: Speci men Type: BLOOD SPECIMEN Ordering Facility: [facility] Address: [address] [place] [address] Performed By: #### 2 4321-2 #### [facility] CLIA [id number] [address] [place] Nucleated RBC/100 WBC (Bld) [Ratio] 0.3 /100 WBC Normal [facility] Comment on above: Order Comment: Speci men Type: BLOOD SPECIMEN Ordering Facility: [facility] Address: [address] [place] [address] Performed By: #### 2 4321-2 #### [facility] CLIA [id number] [address] [place] Platelet mean volume (Bld) [Entitic vol] 9.7 fL Normal 9.0-12.7 [facility] Comment on above: Order Comment: Speci men Type: BLOOD SPECIMEN Ordering Facility: [facility] Address: [address] [place] [address] Performed By: #### 2 4321-2 #### [facility] CLIA [id number] [address] [place] Platelets (Bld) [#/Vol] 140 10*3/uL Low 150-400 [facility] Comment on above: Order Comment: Speci men Type: BLOOD SPECIMEN Ordering Facility: [facility] Address: [address] [place] [address] Performed By: #### 2 4321-2 #### [facility] CLIA [id number] [address] [place] RBC (Bld) [#/Vol] 3.57 10*6/uL Low 3.90-5.20 [facility] Comment on above: Order Comment: Speci men Type: BLOOD SPECIMEN Ordering Facility: [facility] Address: [address] [place] [address] Performed By: #### 2 4321-2 #### [facility] CLIA [id number] 1 [place] [address] [place] WBC (Bld) [#/Vol] 7.06 10*3/uL Normal 3.70-11.00 [facility] Comment on above: Order Comment: Speci men Type: BLOOD SPECIMEN Ordering Facility: [facility] Address: [address] [place] [address] Performed By: #### 2 4321-2 #### [facility] CLIA [id number] [address] [place] Basic metabolic 2000 panelon 02-02-2025 Anion gap [Moles/Vol] 9 mmol/L Normal 8-15 [facility] Comment on above: Order Comment: Speci men Type: BLOOD SPECIMEN Ordering Facility: [facility] Address: [address] [place] [address] Performed By: #### 2 4321-2 #### [facility] CLIA [id number] [address] [place] Calcium [Mass/Vol] 8.0 mg/dL Low 8.5-10.2 [facility] Comment on above: Order Comment: Speci men Type: BLOOD SPECIMEN Ordering Facility: [facility] Address: [address] [place] [address] Performed By: #### 2 4321-2 #### [facility] CLIA [id number] [address] [place] Chloride [Moles/Vol] 102 mmol/L Normal 98-107 [facility] Comment on above: Order Comment: Speci men Type: BLOOD SPECIMEN Ordering Facility: [facility] Address: [address] [place] [address] Performed By: #### 2 4321-2 #### [facility] CLIA [id number] [address] [place] CO2 [Moles/Vol] 20 mmol/L Low 22-30 [facility] Comment on above: Order Comment: Speci men Type: BLOOD SPECIMEN Ordering Facility: [facility] Address: [address] [place] [address] Performed By: #### 2 4321-2 #### [facility] CLIA [id number] [address] [place] Creatinine [Mass/Vol] 1.29 mg/dL High 0.58-0.96 [facility] Comment on above: Order Comment: Speci men Type: BLOOD SPECIMEN Ordering Facility: [facility] Address: [address] [place] [address] Performed By: #### 2 4321-2 #### [facility] CLIA [id number] [address] Creatinine and Glomerular filtration rate.predicted panel (S/P/Bld) 40 mL/min/1.73m??? Low >=60 [facility] Comment on above: Order Comment: Claudia men Type: BLOOD SPECIMEN Ordering Facility: [facility] Address: [address] [place] [address] Result Comment: Kiki mated Glomerular Filtration Rate [...] GFR. Performed By: #### 2 4321-2 #### [facility] CLIA [id number] [address] [place] Glucose [Mass/Vol] 106 mg/dL High 74-99 [facility] Comment on above: Order Comment: Claudia howell Type: BLOOD SPECIMEN Ordering Facility: [facility] Address: [address] [place] [address] Result Comment: The [place] [employer] (ADA) provides guidance for cutoff [...] Standards of Medical Care in Diabetes 2016, [place] [employer]. Diabetes Care. 2016.39(Suppl 1). Performed By: #### 2 4321-2 #### [facility] CLIA [id number] [address] STATES OF [facility] Potassium [Moles/Vol] 5.1 mmol/L Normal 3.7-5.1 [facility] Comment on above: Order Comment: Claudia howell Type: BLOOD SPECIMEN Ordering Facility: [facility] Address: [address] [place] [address] Performed By: #### 2 4321-2 #### [facility] CLIA [id number] [address] [place] [address] Sodium [Moles/Vol] 131 mmol/L Low 136-144 [facility] Comment on above: Order Comment: Claudia howell Type: BLOOD SPECIMEN Ordering Facility: [facility] Address: [address] [place] [address] Performed By: #### 2 4321-2 #### [facility] CLIA [id number] [address] Urea nitrogen [Mass/Vol] 36 mg/dL High 7-21 [facility] Comment on above: Order Comment: Claudia howell Type: BLOOD SPECIMEN Ordering Facility: [facility] Address: [address] [place] [address] Performed By: #### 2 4321-2 #### [facility] CLIA [id number] [address] [place] CBC W Auto Differential pane l (Bld)on 02-02-2025 Basophils (Bld) [#/Vol] 0.03 10*3/uL Normal <0.11 [facility] Comment on above: Order Comment: Speci men Type: BLOOD SPECIMEN Ordering Facility: [facility] Address: [address] [place] [address] Performed By: #### 3 4528-0 #### [facility] CLIA [id number] [address] [place] [facility] Basophils/100 WBC (Bld) 0.5 % Normal A [facility] Comment on above: Order Comment: Speci men Type: BLOOD SPECIMEN Ordering Facility: [facility] Address: [address] [place] [address] Performed By: #### 3 4528-0 #### [facility] CLIA [id number] [address] Differential cell count method Nom (Bld) Auto Normal [facility] Comment on above: Order Comment: Speci men Type: BLOOD SPECIMEN Ordering Facility: [facility] Address: [address] [place] [address] Performed By: #### 3 4528-0 #### [facility] CLIA [id number] [address] [place] Eosinophils (Bld) [#/Vol] 0.18 10*3/uL Normal <0.46 [facility] Comment on above: Order Comment: Speci men Type: BLOOD SPECIMEN Ordering Facility: [facility] Address: [address] [place] [address] Performed By: #### 3 4528-0 #### [facility] CLIA [id number] [address] Eosinophils/100 WBC (Bld) 3.0 % Normal [facility] Comment on above: Order Comment: Speci men Type: BLOOD SPECIMEN Ordering Facility: [facility] Address: [facility] [place] [address] Performed By: #### 3 4528-0 #### [facility] CLIA [id number] [address] [place] Erythrocyte distribution width (RBC) [Ratio] 14.6 % Normal 11.5-15.0 [facility] Comment on above: Order Comment: Speci men Type: BLOOD SPECIMEN Ordering Facility: [facility] Address: [address] [place] [address] Performed By: #### 3 4528-0 #### [facility] CLIA [id number] [address] [place] Hematocrit (Bld) [Volume fraction] 30.9 % Low 36.0-46.0 [facility] Comment on above: Order Comment: Speci men Type: BLOOD SPECIMEN Ordering Facility: [facility] Address: [address] [place] [address] Performed By: #### 3 4528-0 #### [facility] CLIA [id number] [address] [place] Hemoglobin (Bld) [Mass/Vol] 10.2 g/dL Low 11.5-15.5 [facility] Comment on above: Order Comment: Speci men Type: BLOOD SPECIMEN Ordering Facility: [facility] Address: [address] [place] [address] Performed By: #### 3 4528-0 #### [facility] CLIA [id number] [address] [place] Immature granulocytes (Bld) [#/Vol] 0.03 10*3/uL Normal <0.10 [facility] Comment on above: Order Comment: Speci men Type: BLOOD SPECIMEN Ordering Facility: [facility] Address: [address] [place] [address] Performed By: #### 3 4528-0 #### [facility] CLIA [id number] [address] [place] Immature granulocytes/100 WBC (Bld) 0.5 % Normal [facility] Comment on above: Order Comment: Speci men Type: BLOOD SPECIMEN Ordering Facility: [facility] Address: [address] [place] [address] Performed By: #### 3 4528-0 #### [facility] CLIA [id number] [address] [place] [address] [place] Lymphocytes (Bld) [#/Vol] 0.74 10*3/uL Low 1.00-4.00 [facility] Comment on above: Order Comment: Speci men Type: BLOOD SPECIMEN Ordering Facility: [facility] Address: [address] [place] [address] Performed By: #### 3 4528-0 #### [facility] CLIA [id number] [address] Lymphocytes/100 WBC (Bld) 12.1 % Normal [facility] Comment on above: Order Comment: Speci men Type: BLOOD SPECIMEN Ordering Facility: [facility] Address: [address] [place] [address] Performed By: #### 3 4528-0 #### [facility] CLIA [id number] [address] MCH (RBC) [Entitic mass] 32.3 pg Normal 26.0-34.0 [facility] Comment on above: Order Comment: Speci men Type: BLOOD SPECIMEN Ordering Facility: [facility] Address: [address] [place] [address] Performed By: #### 3 4528-0 #### [facility] CLIA [id number] [address] MCHC (RBC) [Mass/Vol] 33.0 g/dL Normal 30.5-36.0 [facility] Comment on above: Order Comment: Speci men Type: BLOOD SPECIMEN Ordering Facility: [facility] Address: [address] [place] [address] Performed By: #### 3 4528-0 #### [facility] CLIA [id number] [address] MCV (RBC) [Entitic vol] 97.8 fL Normal 80.0-100.0 [facility] Comment on above: Order Comment: Speci men Type: BLOOD SPECIMEN Ordering Facility: [facility] Address: [address] [place] [address] Performed By: #### 3 4528-0 #### [facility] CLIA [id number] [address] [place] Monocytes (Bld) [#/Vol] 1.46 10*3/uL High <0.87 [facility] Comment on above: Order Comment: Speci men Type: BLOOD SPECIMEN Ordering Facility: [facility] Address: [address] [place] [address] Performed By: #### 3 4528-0 #### [facility] CLIA [id number] [address] [place] Monocytes/100 WBC (Bld) 23.9 % Normal [facility] Comment on above: Order Comment: Speci men Type: BLOOD SPECIMEN Ordering Facility: [facility] Address: [address] [place] [address] Performed By: #### 3 4528-0 #### [facility] CLIA [id number] [address] [place] Neutrophils (Bld) [#/Vol] 3.66 10*3/uL Normal 1.45-7.50 [facility] Comment on above: Order Comment: Speci men Type: BLOOD SPECIMEN Ordering Facility: [facility] Address: [address] [place] [address] Performed By: #### 3 4528-0 #### [facility] CLIA [id number] [address] Neutrophils/100 WBC (Bld) 60.0 % Normal [facility] Comment on above: Order Comment: Speci men Type: BLOOD SPECIMEN Ordering Facility: [facility] Address: [address] [place] [address] Performed By: #### 3 4528-0 #### [facility] CLIA [id number] [address] [place] Nucleated RBC (Bld) [#/Vol] 10*3/uL Normal <0.01 [facility] Comment on above: Order Comment: Speci men Type: BLOOD SPECIMEN Ordering Facility: [facility] Address: [address] [place] [address] Performed By: #### 3 4528-0 #### [facility] CLIA [id number] [address] [place] Nucleated RBC/100 WBC (Bld) [Ratio] 0.0 /100 WBC Normal [facility] Comment on above: Order Comment: Speci men Type: BLOOD SPECIMEN Ordering Facility: [facility] Address: [address] [place] [address] Performed By: #### 3 4528-0 #### [facility] CLIA [id number] [address] [place] Platelet mean volume (Bld) [Entitic vol] 9.7 fL Normal 9.0-12.7 [facility] Comment on above: Order Comment: Speci men Type: BLOOD SPECIMEN Ordering Facility: [facility] Address: [address] [place] [address] Performed By: #### 3 4528-0 #### [facility] CLIA [id number] [address] [place] Platelets (Bld) [#/Vol] 114 10*3/uL Low 150-400 [facility] Comment on above: Order Comment: Speci men Type: BLOOD SPECIMEN Ordering Facility: [facility] Address: [address] [place] [address] Performed By: #### 3 4528-0 #### [facility] CLIA [id number] [address] [place] RBC (Bld) [#/Vol] 3.16 10*6/uL Low 3.90-5.20 [facility] Comment on above: Order Comment: Speci men Type: BLOOD SPECIMEN Ordering Facility: [facility] Address: [address] [place] [address] Performed By: #### 3 4528-0 #### [facility] CLIA [id number] [address] [place] WBC (Bld) [#/Vol] 6.10 10*3/uL Normal 3.70-11.00 [facility] Comment on above: Order Comment: Specchilo howell Type: BLOOD SPECIMEN Ordering Facility: [facility] Address: [address] [place] [address] Performed By: #### 3 4528-0 #### [facility] CLIA [id number] [address] [place] PT panel Coag (PPP)on 2024 INR Coag (PPP) [Relative time] 1.8 {INR} High 0.9-1.3 [facility] Comment on above: Order Comment: Speci men Type: BLOOD SPECIMEN Ordering Facility: [facility] Address: [address] [place] [address] Result Comment: Payton min K Antagonist (VKA) Therapeutic Range: INR 2 to 3 (Target INR of 2.5) Note: For patients treated with VKA drugs, such as warfarin, the [place] [employer] 2012 Guideline recommends [...] Chest 2012, 141:7S-47S Madelaine RA et al. [facility] 2017, 70: 252-289 Performed By: #### 3 4528-0 #### [facility] CLIA [id number] [address] [place] PT Coag (PPP) [Time] 18.4 s High 9.7-13.0 [facility] Comment on above: Order Comment: Specchilo howell Type: BLOOD SPECIMEN Ordering Facility: [facility] Address: [address] [place] [address] Performed By: #### 3 4528-0 #### [facility] CLIA [id number] [address] OF [facility] THERAPY NTon 02-02-2025 THERAPY NT HNO ID: [id number] Author: CHRISTEN QUICK, PT Service: Physical Therapy Author Type: Physical Therapist Type: Therapy (PT/OT/Speech/Resp) Filed: 02/02/2025 16:50 Note Text: Physical Therapy Evaluation Summary SERVICE DATE: 02/02/2025 SERVICE TIME: 1556 to 1625 ROOM: [place] [address] PT 6 Clicks Score: 18 DISCHARGE RECOMMENDATIONS Home Anticipated Discharge Needs: Physical Assist at Home Physical Assist at Home for: Shopping, Transportation ASSESSMENT Response to Therapy Interventions: Good Participation in Activities, Pain pt with abdominal pain but able to mobilize with min A PRECAUTIONS Bed/Chair Alarm CURRENT HOSPITAL COURSE presented to [facility] with abd pain--found to have abd wall hematoma Relevant Past Medical History: osteoporosis, afib, HTN, CHF HOME LIVING Patient Lives With: Self/Alone Assistance Available: None (may be moving to [place] and live with dtr and son in [...] on feet TREATMENT INTERVENTIONS Evaluation, Therapeutic Activity (44080) Timed Code Treatment (minutes): 8 Skilled Treatment Time (minutes): 23 $ Evaluation-Moderate (81518) Billed Units: 1 unit Therapeutic Activity (78898) Treatment Minutes: 8 $ Therapeutic Activity (40124) Billed Units: 1 unit Cues for safe [...] Interventions: Education, Functional Mobility Training SIGNATURE: Christen Quick, ELENI PATIENT NAME: Ana Maria Avalos DATE: February 02, 2025 TIME: 4:49 PM Normal [facility] Basic metabolic 2000 panelon 02-01-2025 Anion gap [Moles/Vol] 10 mmol/L Normal 8-15 [facility] Comment on above: Order Comment: Speci men Type: BLOOD SPECIMEN Ordering Facility: [facility] Address: [address] [place] [address] Performed By: #### 2 4321-2 #### [facility] CLIA [id number] 1 [place] [address] [place] Calcium [Mass/Vol] 8.6 mg/dL Normal 8.5-10.2 [facility] Comment on above: Order Comment: Speci men Type: BLOOD SPECIMEN Ordering Facility: [facility] Address: [address] [place] [address] Performed By: #### 2 4321-2 #### [facility] CLIA [id number] [address] Chloride [Moles/Vol] 101 mmol/L Normal 98-107 [facility] Comment on above: Order Comment: Speci men Type: BLOOD SPECIMEN Ordering Facility: [facility] Address: [address] [place] [address] Performed By: #### 2 4321-2 #### [facility] CLIA [id number] [address] OF [facility] CO2 [Moles/Vol] 20 mmol/L Low 22-30 [facility] Comment on above: Order Comment: Speci men Type: BLOOD SPECIMEN Ordering Facility: [facility] Address: [address] [place] [address] Performed By: #### 2 4321-2 #### [facility] CLIA [id number] [address] [place] [address] Creatinine [Mass/Vol] 1.39 mg/dL High 0.58-0.96 [facility] Comment on above: Order Comment: Speci men Type: BLOOD SPECIMEN Ordering Facility: [facility] Address: [address] [place] [address] Performed By: #### 2 4321-2 #### [facility] CLIA [id number] [address] [place] [address] Creatinine and Glomerular filtration rate.predicted panel (S/P/Bld) 37 mL/min/1.73m??? Low >=60 [facility] Comment on above: Order Comment: Speci men Type: BLOOD SPECIMEN Ordering Facility: [facility] Address: [address] [place] [address] Result Comment: Kiki mated Glomerular Filtration Rate [...] GFR. Performed By: #### 2 4321-2 #### [facility] CLIA [id number] 1 [place] [address] [place] Glucose [Mass/Vol] 120 mg/dL High 74-99 [facility] Comment on above: Order Comment: Claudia howell Type: BLOOD SPECIMEN Ordering Facility: [facility] Address: [address] [place] [address] Result Comment: The [place] [employer] (ADA) provides guidance for cutoff [...] Standards of Medical Care in Diabetes 2016, [place] [employer]. Diabetes Care. 2016.39(Suppl 1). Performed By: #### 2 4321-2 #### [facility] CLIA [id number] 1 [place] [address] [place] Potassium [Moles/Vol] 4.6 mmol/L Normal 3.7-5.1 [facility] Comment on above: Order Comment: Claudia howell Type: BLOOD SPECIMEN Ordering Facility: [facility] Address: [address] [place] [address] Performed By: #### 2 4321-2 #### [facility] CLIA [id number] 1 [place] [address] [place] Sodium [Moles/Vol] 131 mmol/L Low 136-144 [facility] Comment on above: Order Comment: Claudia howell Type: BLOOD SPECIMEN Ordering Facility: [facility] Address: [address] [place] [address] Performed By: #### 2 4321-2 #### [facility] CLIA [id number] 1 [place] [address] [place] Urea nitrogen [Mass/Vol] 38 mg/dL High 7-21 [facility] Comment on above: Order Comment: Speci men Type: BLOOD SPECIMEN Ordering Facility: [facility] Address: [address] [place] [address] Performed By: #### 2 4321-2 #### [facility] CLIA [id number] [address] CBC panel Auto (Bld)on 02-01 Erythrocyte distribution width (RBC) [Ratio] 14.6 % Normal 11.5-15.0 [facility] Comment on above: Order Comment: Speci men Type: BLOOD SPECIMEN Ordering Facility: [facility] Address: [address] [place] [address] Performed By: #### 3 4528-0 #### [facility] CLIA [id number] [address] Hematocrit (Bld) [Volume fraction] 35.1 % Low 36.0-46.0 [facility] Comment on above: Order Comment: Speci men Type: BLOOD SPECIMEN Ordering Facility: [facility] Address: [address] [place] [address] Performed By: #### 3 4528-0 #### [facility] CLIA [id number] [address] Hemoglobin (Bld) [Mass/Vol] 11.2 g/dL Low 11.5-15.5 [facility] Comment on above: Order Comment: Speci men Type: BLOOD SPECIMEN Ordering Facility: [facility] Address: [address] [place] [address] Performed By: #### 3 4528-0 #### [facility] CLIA [id number] [address] MCH (RBC) [Entitic mass] 31.8 pg Normal 26.0-34.0 [facility] Comment on above: Order Comment: Speci men Type: BLOOD SPECIMEN Ordering Facility: [facility] Address: [address] [place] [address] Performed By: #### 3 4528-0 #### [facility] CLIA [id number] [address] [place] MCHC (RBC) [Mass/Vol] 31.9 g/dL Normal 30.5-36.0 [facility] Comment on above: Order Comment: Speci men Type: BLOOD SPECIMEN Ordering Facility: [facility] Address: [address] [place] [address] Performed By: #### 3 4528-0 #### [facility] CLIA [id number] [address] MCV (RBC) [Entitic vol] 99.7 fL Normal 80.0-100.0 [facility] Comment on above: Order Comment: Speci men Type: BLOOD SPECIMEN Ordering Facility: [facility] Address: [address] [place] [address] Performed By: #### 3 4528-0 #### [facility] CLIA [id number] [address] Nucleated RBC (Bld) [#/Vol] 0.02 10*3/uL High <0.01 [facility] Comment on above: Order Comment: Speci men Type: BLOOD SPECIMEN Ordering Facility: [facility] Address: [address] [place] [address] Performed By: #### 3 4528-0 #### [facility] CLIA [id number] [address] Platelet mean volume (Bld) [Entitic vol] 9.1 fL Normal 9.0-12.7 [facility] Comment on above: Order Comment: Speci men Type: BLOOD SPECIMEN Ordering Facility: [facility] Address: [address] [place] [address] Performed By: #### 3 4528-0 #### [facility] CLIA [id number] [address] Platelets (Bld) [#/Vol] 145 10*3/uL Low 150-400 [facility] Comment on above: Order Comment: Speci men Type: BLOOD SPECIMEN Ordering Facility: [facility] Address: [address] [place] [address] Performed By: #### 3 4528-0 #### [facility] CLIA [id number] [address] [place] [facility] RBC (Bld) [#/Vol] 3.52 10*6/uL Low 3.90-5.20 [facility] Comment on above: Order Comment: Claudia howell Type: BLOOD SPECIMEN Ordering Facility: [facility] Address: [address] [place] [address] Performed By: #### 3 4528-0 #### [facility] CLIA [id number] [address] OF [facility] WBC (Bld) [#/Vol] 6.74 10*3/uL Normal 3.70-11.00 [facility] Comment on above: Order Comment: Claudia howell Type: BLOOD SPECIMEN Ordering Facility: [facility] Address: [address] [place] [address] Performed By: #### 3 4528-0 #### [facility] CLIA [id number] [address] OF [facility] PT panel Coag (PPP)on 2024 INR Coag (PPP) [Relative time] 1.5 {INR} High 0.9-1.3 [facility] Comment on above: Order Comment: Claudia howell Type: BLOOD SPECIMEN Ordering Facility: [facility] Address: [address] [place] [address] Result Comment: Pay[place] min K Antagonist (VKA) Therapeutic Range: INR 2 to 3 (Target INR of 2.5) Note: For patients treated with VKA drugs, such as warfarin, the [place] [employer] 2012 Guideline recommends [...] Chest 2012, 141:7S-47S Madelaine RA, et al. [facility] 2017, 70: 252-289 Performed By: #### 2 4321-2 #### [facility] CLIA [id number] [address] [place] [facility] PT Coag (PPP) [Time] 15.7 s High 9.7-13.0 [facility] Comment on above: Order Comment: Speci men Type: BLOOD SPECIMEN Ordering Facility: [facility] Address: [address] [place] [address] Performed By: #### 2 4321-2 #### [facility] CLIA [id number] [address] CBC W Auto Differential pane l (Bld)on 01-31-2025 Basophils (Bld) [#/Vol] 0.04 10*3/uL Normal <0.11 [facility] Comment on above: Order Comment: Speci men Type: BLOOD SPECIMEN Ordering Facility: [facility] Address: [address] [place] [address] Performed By: #### 2 4321-2 #### [facility] CLIA [id number] [address] Basophils/100 WBC (Bld) 0.7 % Normal [facility] Comment on above: Order Comment: Speci men Type: BLOOD SPECIMEN Ordering Facility: [facility] Address: [address] [place] [address] Performed By: #### 2 4321-2 #### [facility] CLIA [id number] [address] Differential cell count method Nom (Bld) Auto Normal [facility] Comment on above: Order Comment: Speci men Type: BLOOD SPECIMEN Ordering Facility: [facility] Address: [address] [place] [address] Performed By: #### 2 1-2 #### [facility] CLIA [id number] [address] [place] Eosinophils (Bld) [#/Vol] 0.03 10*3/uL Normal <0.46 [facility] Comment on above: Order Comment: Speci men Type: BLOOD SPECIMEN Ordering Facility: [facility] Address: [address] [place] [address] Performed By: #### 2 4321-2 #### [facility] CLIA [id number] [address] [place] Eosinophils/100 WBC (Bld) 0.5 % Normal [facility] Comment on above: Order Comment: Speci men Type: BLOOD SPECIMEN Ordering Facility: [facility] Address: [address] [place] [address] Performed By: #### 2 4321-2 #### [facility] CLIA [id number] [address] [place] Erythrocyte distribution width (RBC) [Ratio] 14.3 % Normal 11.5-15.0 [facility] Comment on above: Order Comment: Speci men Type: BLOOD SPECIMEN Ordering Facility: [facility] Address: [address] [place] [address] Performed By: #### 2 4321-2 #### [facility] CLIA [id number] [address] [place] Hematocrit (Bld) [Volume fraction] 40.0 % Normal 36.0-46.0 [facility] Comment on above: Order Comment: Speci men Type: BLOOD SPECIMEN Ordering Facility: [facility] Address: [address] [place] [address] Performed By: #### 2 4321-2 #### [facility] CLIA [id number] [address] [place] Hemoglobin (Bld) [Mass/Vol] 12.5 g/dL Normal 11.5-15.5 [facility] Comment on above: Order Comment: Speci men Type: BLOOD SPECIMEN Ordering Facility: [facility] Address: [facility] [place] [address] Performed By: #### 2 4321-2 #### [facility] CLIA [id number] [address] [place] Immature granulocytes (Bld) [#/Vol] 10*3/uL Normal <0.10 [facility] Comment on above: Order Comment: Speci men Type: BLOOD SPECIMEN Ordering Facility: [facility] Address: [address] [place] [address] Performed By: #### 2 4321-2 #### [facility] CLIA [id number] [address] Immature granulocytes/100 WBC (Bld) 0.3 % Normal [facility] Comment on above: Order Comment: Speci men Type: BLOOD SPECIMEN Ordering Facility: [facility] Address: [address] [place] [address] Performed By: #### 2 4321-2 #### [facility] CLIA [id number] [address] [place] [facility] Lymphocytes (Bld) [#/Vol] 0.98 10*3/uL Low 1.00-4.00 [facility] Comment on above: Order Comment: Speci men Type: BLOOD SPECIMEN Ordering Facility: [facility] Address: [address] [place] [address] Performed By: #### 2 4321-2 #### [facility] CLIA [id number] [address] Lymphocytes/100 WBC (Bld) 16.6 % Normal [facility] Comment on above: Order Comment: Speci men Type: BLOOD SPECIMEN Ordering Facility: [facility] Address: [address] [place] [address] Performed By: #### 2 4321-2 #### [facility] CLIA [id number] [address] [place] MCH (RBC) [Entitic mass] 31.3 pg Normal 26.0-34.0 [facility] Comment on above: Order Comment: Speci men Type: BLOOD SPECIMEN Ordering Facility: [facility] Address: [address] [place] [address] Performed By: #### 2 4321-2 #### [facility] CLIA [id number] [address] MCHC (RBC) [Mass/Vol] 31.3 g/dL Normal 30.5-36.0 [facility] Comment on above: Order Comment: Speci men Type: BLOOD SPECIMEN Ordering Facility: [facility] Address: [address] [place] [address] Performed By: #### 2 4321-2 #### [facility] CLIA [id number] [address] MCV (RBC) [Entitic vol] 100.0 fL Normal 80.0-100.0 [facility] Comment on above: Order Comment: Speci men Type: BLOOD SPECIMEN Ordering Facility: [facility] Address: [address] [place] [address] Performed By: #### 2 4321-2 #### [facility] CLIA [id number] [address] OF [facility] Monocytes (Bld) [#/Vol] 0.94 10*3/uL High <0.87 [facility] Comment on above: Order Comment: Speci men Type: BLOOD SPECIMEN Ordering Facility: [facility] Address: [address] [place] [address] Performed By: #### 2 4321-2 #### [facility] CLIA [id number] [address] Monocytes/100 WBC (Bld) 15.9 % Normal A [facility] Comment on above: Order Comment: Speci men Type: BLOOD SPECIMEN Ordering Facility: [facility] Address: [address] [place] [address] Performed By: #### 2 4321-2 #### [facility] CLIA [id number] [address] [place] Neutrophils (Bld) [#/Vol] 3.91 10*3/uL Normal 1.45-7.50 [facility] Comment on above: Order Comment: Speci men Type: BLOOD SPECIMEN Ordering Facility: [facility] Address: [address] [place] [address] Performed By: #### 2 4321-2 #### [facility] CLIA [id number] [address] [place] Neutrophils/100 WBC (Bld) 66.0 % Normal [facility] Comment on above: Order Comment: Speci men Type: BLOOD SPECIMEN Ordering Facility: [facility] Address: [address] [place] [address] Performed By: #### 2 4321-2 #### [facility] CLIA [id number] [address] [place] Nucleated RBC (Bld) [#/Vol] 10*3/uL Normal <0.01 [facility] Comment on above: Order Comment: Speci men Type: BLOOD SPECIMEN Ordering Facility: [facility] Address: [address] [place] [address] Performed By: #### 2 1-2 #### [facility] CLIA [id number] [address] [place] Nucleated RBC/100 WBC (Bld) [Ratio] 0.0 /100 WBC Normal [facility] Comment on above: Order Comment: Speci men Type: BLOOD SPECIMEN Ordering Facility: [facility] Address: [address] [place] [address] Performed By: #### 2 4321-2 #### [facility] CLIA [id number] [address] [place] Platelet mean volume (Bld) [Entitic vol] 9.5 fL Normal 9.0-12.7 [facility] Comment on above: Order Comment: Speci men Type: BLOOD SPECIMEN Ordering Facility: [facility] Address: [address] [place] [address] Performed By: #### 2 4321-2 #### [facility] CLIA [id number] [address] [place] Platelets (Bld) [#/Vol] 179 10*3/uL Normal 150-400 [facility] Comment on above: Order Comment: Speci men Type: BLOOD SPECIMEN Ordering Facility: [facility] Address: [address] [place] [address] Performed By: #### 2 4321-2 #### [facility] CLIA [id number] 1 [place] [address] [place] RBC (Bld) [#/Vol] 4.00 10*6/uL Normal 3.90-5.20 [facility] Comment on above: Order Comment: Speci men Type: BLOOD SPECIMEN Ordering Facility: [facility] Address: [address] [place] [address] Performed By: #### 2 4321-2 #### [facility] CLIA [id number] 1 [place] [address] [place] WBC (Bld) [#/Vol] 5.92 10*3/uL Normal 3.70-11.00 [facility] Comment on above: Order Comment: Speci men Type: BLOOD SPECIMEN Ordering Facility: [facility] Address: [address] [place] [address] Performed By: #### 2 4321-2 #### [facility] CLIA [id number] [address] [place] CONSULTon 01-31-2025 CONSULT HNO ID: [id number] Author: SUSANA HAJI MD Service: General Surgery Author Type: Physician Type: Consults Filed: 01/31/2025 23:38 Note Text: HISTORY AND PHYSICAL EXAM: EGS SERVICE SERVICE DATE: 01/31/2025 SERVICE TIME: 2:49 AM Subjective CHIEF COMPLAINT: Rectus Sheath Hematoma HPI: 89 year old female with many co morbidities PMH Afib on coumadin, HLD, HTN, HLD, hypothyroidism, T2DM, CAD, CHF, Pulm HTN. She presents to [facility] with a couple days of Right hemiabdomen [...] BREAST PERC VACUUM/ROTN 12/27/2009 CARDIOVERSION 03/03/2011 In [place] FEMORAL SUPRACONDYLAR FRACTURE W/XTN Left 08/29/2021 PAST SURGICAL HISTORY OF right ankle ORIF for triamalleolar fracture S $ KNEE TOTAL ARTHR PRASHANTH Left 05/07/2015 [facility] [place]. LTK replacement arthroplasty SIGMOIDOSCOPY FLX [...] CAD, CHF, Pulm HTN. She presents to [facility] with a couple days of Right hemiabdomen pain and concern for rectus sheath hematoma. Hospital Course/Operations/Proce dures: * No surgery found * Plan: Rectus sheath hematoma - Patient currently HDS not tachycardic with normal hgb. - Bleed likely to tamponade in rectus sheath once anticoagulant reversal administered - No acute surgical intervention indicated. - Recommend medical admission - if not previously reversed at [place], would recommend reversal of coumadin - If patient becomes unstable, would recommend CTA and discussion with IR of embolization or thrombin injection into rectus sheath - rest of care per primary - Code status: Code Status: Not on file Assessment and plan d/w Dr. Haji. SIGNATURE: Rosalio Kraft MD PATIENT NAME: Ana Maria Avalos DATE: 01/31/2025 TIME: 2:49 AM Pager: See below. Emergency General Surgery (EGS) Staff Addendum: Briefly, this is a 89 YO patient presenting wi (more content not included)... Normal [facility] Comprehensive metabolic 2000 panelon 01-31-2025 Albumin [Mass/Vol] 3.5 g/dL Low 3.9-4.9 [facility] Comment on above: Order Comment: Speci men Type: BLOOD SPECIMEN Ordering Facility: [facility] Address: [address] [place] [address] Performed By: #### 2 4323-8 #### [facility] CLIA [id number] [address] [place] ALP [Catalytic activity/Vol] 102 U/L Normal 34-123 [facility] Comment on above: Order Comment: Speci men Type: BLOOD SPECIMEN Ordering Facility: [facility] Address: [address] [place] [address] Performed By: #### 2 4323-8 #### [facility] CLIA [id number] [address] [place] ALT With P-5'-P [Catalytic activity/Vol] 34 U/L Normal 7-38 [facility] Comment on above: Order Comment: Speci men Type: BLOOD SPECIMEN Ordering Facility: [facility] Address: [address] [place] [address] Performed By: #### 2 4323-8 #### [facility] CLIA [id number] [address] [place] Anion gap [Moles/Vol] 13 mmol/L Normal 8-15 [facility] Comment on above: Order Comment: Speci men Type: BLOOD SPECIMEN Ordering Facility: [facility] Address: [address] [place] [address] Performed By: #### 2 4323-8 #### [facility] CLIA [id number] [address] [place] AST With P-5'-P [Catalytic activity/Vol] 48 U/L High 13-35 [facility] Comment on above: Order Comment: Speci men Type: BLOOD SPECIMEN Ordering Facility: [facility] Address: [address] [place] [address] Performed By: #### 2 4323-8 #### [facility] CLIA [id number] [address] [place] Bilirubin [Mass/Vol] 1.6 mg/dL High 0.2-1.3 [facility] Comment on above: Order Comment: Speci men Type: BLOOD SPECIMEN Ordering Facility: [facility] Address: [address] [place] [address] Performed By: #### 2 4323-8 #### [facility] CLIA [id number] [address] [place] Calcium [Mass/Vol] 8.7 mg/dL Normal 8.5-10.2 [facility] Comment on above: Order Comment: Speci men Type: BLOOD SPECIMEN Ordering Facility: [facility] Address: [address] [place] [address] Performed By: #### 2 4323-8 #### [facility] CLIA [id number] [address] [place] Chloride [Moles/Vol] 102 mmol/L Normal 98-107 [facility] Comment on above: Order Comment: Speci men Type: BLOOD SPECIMEN Ordering Facility: [facility] Address: [address] [place] [address] Performed By: #### 2 4323-8 #### [facility] CLIA [id number] [address] [place] CO2 [Moles/Vol] 19 mmol/L Low 22-30 [facility] Comment on above: Order Comment: Speci men Type: BLOOD SPECIMEN Ordering Facility: [facility] Address: [address] [place] [address] Performed By: #### 2 4323-8 #### [facility] CLIA [id number] 1 [place] [address] [place] Creatinine [Mass/Vol] 1.49 mg/dL High 0.58-0.96 [facility] Comment on above: Order Comment: Speci men Type: BLOOD SPECIMEN Ordering Facility: [facility] Address: [address] [place] [address] Performed By: #### 2 4323-8 #### [facility] CLIA [id number] [address] [place] Creatinine and Glomerular filtration rate.predicted panel (S/P/Bld) 34 mL/min/1.73m??? Low >=60 [facility] Comment on above: Order Comment: Claudia howell Type: BLOOD SPECIMEN Ordering Facility: [facility] Address: [address] [place] [address] Result Comment: Kiki mated Glomerular Filtration Rate [...] GFR. Performed By: #### 2 4323-8 #### [facility] CLIA [id number] 1 [place] [address] [place] Glucose [Mass/Vol] 102 mg/dL High 74-99 [facility] Comment on above: Order Comment: Claudia howell Type: BLOOD SPECIMEN Ordering Facility: [facility] Address: [address] [place] [address] Result Comment: The [place] Diabetes Association (ADA) provides guidance for cutoff [...] Standards of Medical Care in Diabetes 2016, [place] [employer]. Diabetes Care. 2016.39(Suppl 1). Performed By: #### 2 4323-8 #### [facility] CLIA [id number] 1 [place] [address] [place] Potassium [Moles/Vol] 4.9 mmol/L Normal 3.7-5.1 [facility] Comment on above: Order Comment: Claudia howell Type: BLOOD SPECIMEN Ordering Facility: [facility] Address: [address] [place] [address] Performed By: #### 2 4323-8 #### [facility] CLIA [id number] [address] Protein [Mass/Vol] 5.6 g/dL Low 6.3-8.0 [facility] Comment on above: Order Comment: Speci men Type: BLOOD SPECIMEN Ordering Facility: [facility] Address: [address] [place] [address] Performed By: #### 2 4323-8 #### [facility] CLIA [id number] [address] Sodium [Moles/Vol] 134 mmol/L Low 136-144 [facility] Comment on above: Order Comment: Speci men Type: BLOOD SPECIMEN Ordering Facility: [facility] Address: [address] [place] [address] Performed By: #### 2 4323-8 #### [facility] CLIA [id number] [address] [place] [facility] Urea nitrogen [Mass/Vol] 36 mg/dL High 7-21 [facility] Comment on above: Order Comment: Speci men Type: BLOOD SPECIMEN Ordering Facility: [facility] Address: [address] [place] [address] Performed By: #### 2 4323-8 #### [facility] CLIA [id number] [address] OF [facility] ED NOTEon 01-31-2025 ED NOTE HNO ID: [id number] Author: NIA LOPEZ RN Service: Emergency Medicine Author Type: Registered Nurse Type: ED Notes Filed: 01/31/2025 03:20 Note Text: While administering medication pt requested pain medication. This nurse to notify physician. Normal [facility] ED NOTE HNO ID: [id number] Author: AYDEN ROSALES RN Service: ? Author Type: Registered Nurse Type: ED Notes Filed: 01/31/2025 01:19 Note Text: Bed: 12-ED Expected date: Expected time: Means of arrival: Comments: [place] transfer Normal [facility] ED PROV NOTEon 01-31-2025 ED PROV NOTE HNO ID: [id number] Author: STEVE RED MD Service: Emergency Medicine [...] with: Functional Transfers: Arrives via EMS from [place] D/T ABD wall hematoma. Pt denies falls and/or accidents. A/Ox4. + Coumadin. 89-year-old female presenting to the emergency department with abdominal wall hematoma reported from [facility]. Patient denies any trauma to the [...] BREAST PERC VACUUM/ROTN 12/27/2009 CARDIOVERSION 03/03/2011 In [facility] [place] FEMORAL SUPRACONDYLAR FRACTURE W/XTN Left 08/29/2021 PAST SURGICAL HISTORY OF right ankle ORIF for triamalleolar fracture S $ KNEE TOTAL ARTHR PRASHANTH Left 05/07/2015 [facility] [place]. LTK replacement arthroplasty SIGMOIDOSCOPY FLX [...] 0.98 (*) 1.00 - 4.00 k/uL Abs [place] 0.94 (*) <0.87 k/uL All other components within normal limits COMPREHENSIVE METABOLIC PANEL PROTHROMBIN TIME TYPE + SCREEN Procedures ED Course / Clinical Impression ED Course as of 01/31/25 0319 Steve Hickey's Documentation ThuJan 31, 2025 (more content not included)... Normal [facility] ED PROV NOTE HNO ID: [id number] Author: STEVE RED MD Service: Emergency Medicine [...] abdominal trauma, falls or injuries. Transferred from [place] for surgical consult. for the last day [...] here 5.3. STEVE RED 01/31/25 0259 Normal [facility] HISTORY PHYSICALon HISTORY PHYSICAL HNO ID: [id number] Author: PAT SERAS APRN.CNP Service: Hospital Medicine Author Type: Nurse Practitioner Type: H&P Filed: 01/31/2025 08:56 Note Text: DEPARTMENT OF HOSPITAL MEDICINE HISTORY AND PHYSICAL EXAM SERVICE DATE: 01/31/2025 SERVICE TIME: 8:46 AM NIGHT AND WEEKEND COVERAGE: After 7pm call #[phone] Chief complaint: Transfer from [place] for rectus sheath hematoma HPI: This is an 89-year-old female with prior history of atrial fibrillation on warfarin, HFpEF, hypertension, hyperlipidemia and hypothyroidism. She initially went to [place] for abdominal pain and then transferred here [...] staff and pt will be admitted to [facility]. PAST MEDICAL HISTORY Diagnosis Date Ankle [...] BREAST PERC VACUUM/ROTN 12/27/2009 CARDIOVERSION 03/03/2011 In [place] FEMORAL SUPRACONDYLAR FRACTURE W/XTN Left 08/29/2021 PAST SURGICAL HISTORY OF right ankle ORIF for triamalleolar fracture S $ KNEE TOTAL ARTHR PRASHANTH Left 05/07/2015 [facility] [place]. LTK replacement arthroplasty SIGMOIDOSCOPY FLX [...] (U/L) Date Value 01/31/2025 34 URINLAYSIS Specific [place]anna, Ur Date Value Ref Range Status 01/06/2017 [...] S1S2, irregular (more content not included)... Normal [facility] Hgb Bld-mCncon 01-31-2025 Hemoglobin (Bld) [Mass/Vol] 12.1 g/dL Normal 11.5-15.5 [facility] Comment on above: Order Comment: Speci men Type: BLOOD SPECIMEN Ordering Facility: [facility] Address: [address] [place] [address] Performed By: #### 3 4528-0 #### [facility] CLIA [id number] 1 [place] [address] [place] Hemoglobin (Bld) [Mass/Vol] 11.9 g/dL Normal 11.5-15.5 [facility] Comment on above: Order Comment: Claudia howell Type: BLOOD SPECIMEN Ordering Facility: [facility] Address: [address] [place] [address] Performed By: #### 7 18-7 #### [facility] CLIA [id number] 1 [place] [address] [place] Hemoglobin (Bld) [Mass/Vol] 11.8 g/dL Normal 11.5-15.5 [facility] Comment on above: Order Comment: Speci men Type: BLOOD SPECIMENOrdering Facility: [facility] Address: [address] [place] [address] Performed By: #### 7 18-7 ####[facility] [id number] [place] [address] [place] PT panel Coag (PPP)on 2024 INR Coag (PPP) [Relative time] 5.3 {INR} High 0.9-1.3 [facility] Comment on above: Order Comment: Claudia howell Type: BLOOD SPECIMEN Ordering Facility: [facility] Address: [address] [place] [address] Result Comment: [place] min K Antagonist (VKA) Therapeutic Range: INR 2 to 3 (Target INR of 2.5) Note: For patients treated with VKA drugs, such as warfarin, the [place] [employer] 2012 Guideline recommends [...] Chest 2012, 141:7S-47S Madelaine RA, et al. [facility] 2017, 70: 252-289 Performed By: #### 3 4528-0 #### [facility] CLIA [id number] 1 [place] [address] [place] PT Coag (PPP) [Time] 51.0 s High 9.7-13.0 [facility] Comment on above: Order Comment: Claudia howell Type: BLOOD SPECIMEN Ordering Facility: [facility] Address: [address] [place] [address] Performed By: #### 3 4528-0 #### [facility] CLIA [id number] [address] [place] TYPE + SCREENon 01-31-2025 ABO O Normal [facility] Comment on above: Order Comment: Claudia howell Type: BLOOD SPECIMENOrdering Facility: [facility] Address: [address] [place] [address] Performed By: #### T SCR ####[facility]ANKCLIA [id number] [place] [id number] [facility] Rh Nom (Bld) Positive Normal [facility] Comment on above: Order Comment: Speci men Type: BLOOD SPECIMENOrdering Facility: [facility] Address: [address] [place], [place] [address] Performed By: #### T SCR ####[facility] BANKCLIA [id number] [place] [address] [facility] TYPE AND SCREEN EXPIRATION 02/03/2025 23:59 Normal [facility] Comment on above: Order Comment: Speci men Type: BLOOD SPECIMENOrdering Facility: [facility] Address: [address] [place] [address] Performed By: #### T SCR ####[facility] BLO[facility] BANKCLIA [id number] [place] [address] [facility] 12 Lead EKGon 01-30-2025 12 Lead EKG Normal [facility] Abdomen/Pelvis W IV Cont ONL Yon 01-30-2025 Abdomen/Pelvis W IV Cont ONLY Normal [facility] Absolute lymphocyte countOrd ered By: Car Solomon on 01-30-2025 Lymphocytes Auto (Unsp spec) [#/Vol] 0.86 10*3/uL 0.83-4.51 [facility] Absolute lymphocyte countOrd ered By: Tammie Pillai on 01-30-2025 Lymphocytes Auto (Unsp spec) [#/Vol] 1.00 10*3/uL 0.83-4.51 [facility] Absolute neutrophil countOrd ered By: Car Solomon on 01-30-2025 Neutrophils (Bld) [#/Vol] 3.8 10*3/uL 2.0-7.7 [facility] Absolute neutrophil countOrd ered By: Tammie Pillai on 01-30-2025 Neutrophils (Bld) [#/Vol] 3.0 10*3/uL 2.0-7.7 [facility] Anion gap in Serum or Plasma Ordered By: Car Solomon on 01-30-2025 Anion gap [Moles/Vol] 13 mmol/L 5-15 [facility] Anion gap in Serum or Plasma Ordered By: Tammie Pillai on 01-30-2025 Anion gap [Moles/Vol] 12 mmol/L 5- [facility] Automated lymphocyte count a s percentage of total leukocytesOrdered By: Car Solomon on 01-30-2025 Lymphocytes/100 WBC Auto (Unsp spec) 15.0 % Low [facility] Automated lymphocyte count a s percentage of total leukocytesOrdered By: Tammie Pillai on 01-30-2025 Lymphocytes/100 WBC Auto (Unsp spec) 20.0 % [facility] BUN/creatinine ratioOrdered By: Car Solomon on 01-30-2025 Urea nitrogen/Creatinine [Mass ratio] 21.9 mg/mg High 05-22 [facility] BUN/creatinine ratioOrdered By: Tammie Pillai on 01-30-2025 Urea nitrogen/Creatinine [Mass ratio] 24.2 mg/mg High 05-22 [facility] Basic Metabolic Profile (BMP )on 01-30-2025 BUN/CRE 21.[address] [facility] Comment on above: Performed By: #### L 100.0100, L500.2500, L501.4021 ####[facility] [address] [place], [address] Calcium [Mass/Vol] 9.0 mg/dL Normal 7.6-11.0 [facility] Comment on above: Performed By: #### L 100.0100, L500.2500, L501.4021 ####[facility] [address] [place], [address] Chloride [Moles/Vol] 99 mmol/L Normal 98-108 [facility] Comment on above: Performed By: #### L 100.0100, L500.2500, L501.4021 ####[facility] [address] [place], [address] CO2 [Moles/Vol] 20.6 mmol/L Low 21.0-32.0 [facility] Comment on above: Performed By: #### L 100.0100, L500.2500, L501.4021 ####[facility] [address] [place], [address] Creatinine [Mass/Vol] 1.70 mg/dL High 0.70-1.20 [facility] Comment on above: Performed By: #### L 100.0100, L500.2500, L501.4021 ####[facility] [address] [place], [address] ECRCL 23.07 ml/min Low 50-250 [facility] Comment on above: Performed By: #### L 100.0100, L500.2500, L501.4021 ####[facility] [address] [place], [address] GAP 13 Normal 5-15 [facility] Comment on above: Performed By: #### L 100.0100, L500.2500, L501.4021 ####[facility] [address] [place], [address] GFR/1.73 sq M.predicted among non-blacks MDRD (S/P/Bld) [Vol rate/Area] 29 mL/min/{1.73_m2} Low >60 [facility] Comment on above: Result Comment: mL/m in/1.73m2 CKD-EPI Creatinine Equation (2020) Performed By: #### L 100.0100, L500.2500, L501.4021 ####[facility] [address] [place], [address] Glucose [Mass/Vol] 136 mg/dL High 70-99 [facility] Comment on above: Performed By: #### L 100.0100, L500.2500, L501.4021 ####[facility] [address] [place], [address] Potassium [Moles/Vol] 4.9 mmol/L Normal 3.3-5.1 [facility] Comment on above: Result Comment: Hemo lysis present, Results??could be affected.?? Performed By: #### L 100.0100, L500.2500, L501.4021 ####[facility] [address] [place], [address] Sodium [Moles/Vol] 132 mmol/L Low 133-145 [facility] Comment on above: Performed By: #### L 100.0100, L500.2500, L501.4021 ####[facility] [address] [place], [address] Urea nitrogen [Mass/Vol] 37 mg/dL High 4-19 [facility] Comment on above: Performed By: #### L 100.0100, L500.2500, L501.4021 ####[facility] [address] [place], [address] BUN/CRE 24.2 RATIO High 10-20 [facility] Comment on above: Performed By: #### L 501.9520, L100.0100, L300.3900, L503.7505, L500.2500 ####[facility] [address] [place], [address] Calcium [Mass/Vol] 9.0 mg/dL Normal 7.6-11.0 [facility] Comment on above: Performed By: #### L 501.9520, L100.0100, L300.3900, L503.7505, L500.2500 ####[facility] [address] [place], [address] Chloride [Moles/Vol] 99 mmol/L Normal 98-108 [facility] Comment on above: Performed By: #### L 501.9520, L100.0100, L300.3900, L503.7505, L500.2500 ####[facility] [address] [place], [address] CO2 [Moles/Vol] 21.0 mmol/L Normal 21.0-32.0 [facility] Comment on above: Performed By: #### L 501.9520, L100.0100, L300.3900, L503.7505, L500.2500 ####[facility] [address] [place], [address] Creatinine [Mass/Vol] 1.41 mg/dL High 0.70-1.20 [facility] Comment on above: Performed By: #### L 501.9520, L100.0100, L300.3900, L503.7505, L500.2500 ####[facility] [address] [place], [address] GAP 12 Normal 5-15 [facility] Comment on above: Performed By: #### L 501.9520, L100.0100, L300.3900, L503.7505, L500.2500 ####[facility] [address] [place], [address] GFR/1.73 sq M.predicted among non-blacks MDRD (S/P/Bld) [Vol rate/Area] 36 mL/min/{1.73_m2} Low >60 [facility] Comment on above: Result Comment: mL/m in/1.73m2 CKD-EPI Creatinine Equation (2020) Performed By: #### L 501.9520, L100.0100, L300.3900, L503.7505, L500.2500 ####[facility] [address] [place], [address] Glucose [Mass/Vol] 93 mg/dL Normal 70-99 [facility] Comment on above: Performed By: #### L 501.9520, L100.0100, L300.3900, L503.7505, L500.2500 ####[facility] [address] [place], [address] Potassium [Moles/Vol] 4.6 mmol/L Normal 3.3-5.1 [facility] Comment on above: Performed By: #### L 501.9520, L100.0100, L300.3900, L503.7505, L500.2500 ####[facility] [address] [place], [address] Sodium [Moles/Vol] 132 mmol/L Low 133-145 [facility] Comment on above: Performed By: #### L 501.9520, L100.0100, L300.3900, L503.7505, L500.2500 ####[facility] [address] [place], [address] Urea nitrogen [Mass/Vol] 34 mg/dL High 4-19 [facility] Comment on above: Performed By: #### L 501.9520, L100.0100, L300.3900, L503.7505, L500.2500 ####[facility] [address] [place], [address] Basophil percentageOrdered B y: Car Solomon on 01-30-2025 Basophils/100 WBC (Bld) 0.5 % 0-1 [facility] Basophil percentageOrdered B y: Tammie Pillai on 01-30-2025 Basophils/100 WBC (Bld) 1.0 % 0-1 [facility] Bilirubin Test strip Ql (U)O rdered By: Car Solomon on 01-30-2025 Bilirubin Ql (U) Negative Negative [facility] Bilirubin directOrdered By: Car Solomon on 01-30-2025 Bilirubin.direct [Mass/Vol] 0.71 mg/dL High 0.00-0.30 [facility] Comment on above: Hemolysis present, R esults could be affected. Bilirubin, totalOrdered By: Car Solomon on 01-30-2025 Bilirubin [Mass/Vol] 1.67 mg/dL High 0.00-1.30 [facility] CBC W/Diff, Automatedon 01-03 Absolute Lymph 0.86 X10 3/uL Normal 0.83-4.51 [facility] Comment on above: Performed By: #### L 100.0100, L500.2500, L501.4021 ####[facility] [address] [place], [address] Absolute Neut 3.8 X10 3/uL Normal 2.0-7.7 [facility] Comment on above: Performed By: #### L 100.0100, L500.2500, L501.4021 ####[facility] [address] [place], [address] Basophils/100 WBC (Bld) 0.5 % Normal 0-1 [facility] Comment on above: Performed By: #### L 100.0100, L500.2500, L501.4021 ####[facility] [address] [place], [address] Eosinophils/100 WBC (Bld) 2.4 % Normal 0-5 [facility] Comment on above: Performed By: #### L 100.0100, L500.2500, L501.4021 ####[facility] [address] [place], [address] Erythrocyte distribution width (RBC) [Ratio] 14.5 % Normal 11.6-14.6 [facility] Comment on above: Performed By: #### L 100.0100, L500.2500, L501.4021 ####[facility] [address] [place], [address] Hematocrit (Bld) [Volume fraction] 41.4 % Normal 37-47 [facility] Comment on above: Performed By: #### L 100.0100, L500.2500, L501.4021 ####[facility] [address] [place], [address] Hemoglobin (Bld) [Mass/Vol] 13.5 g/dL Normal 12.0-15.0 [facility] Comment on above: Performed By: #### L 100.0100, L500.2500, L501.4021 ####[facility] [address] [place], [address] IG% 0.300 Normal 0.0-0.9 [facility] Comment on above: Result Comment: IG% - Immature Granulocytes (promyelocytes, myelocytes andmetamyelocytes) > 1% indicates that a LEFT SHIFT is Present. Performed By: #### L 100.0100, L500.2500, L501.4021 ####[facility] [address] [place], [address] Lymphocytes/100 WBC (Bld) 15.0 % Low 19-41 [facility] Comment on above: Performed By: #### L 100.0100, L500.2500, L501.4021 ####[facility] [address] [place], [address] MCH (RBC) [Entitic mass] 31.8 pg Normal 27.0-32.0 [facility] Comment on above: Performed By: #### L 100.0100, L500.2500, L501.4021 ####[facility] [address] [place], [address] MCHC (RBC) [Mass/Vol] 32.6 g/dL Normal 32-36 [facility] Comment on above: Performed By: #### L 100.0100, L500.2500, L501.4021 ####[facility] [address] [place], [address] MCV (RBC) [Entitic vol] 97.6 fL Normal 81-99 [facility] Comment on above: Performed By: #### L 100.0100, L500.2500, L501.4021 ####[facility] [address] [place], [address] Monocytes/100 WBC (Bld) 15.7 % High 0-10 [facility] Comment on above: Performed By: #### L 100.0100, L500.2500, L501.4021 ####[facility] [address] [place], [address] Neutrophils/100 WBC (Bld) 66.1 % Normal 47-70 [facility] Comment on above: Performed By: #### L 100.0100, L500.2500, L501.4021 ####[facility] [address] [place], [address] Nucleated RBC (Bld) [#/Vol] 0 10*3/uL Normal 0-5 [facility] Comment on above: Performed By: #### L 100.0100, L500.2500, L501.4021 ####[facility] [address] [place], [address] Platelet mean volume (Bld) [Entitic vol] 9.0 fL Normal 6.2-12.0 [facility] Comment on above: Performed By: #### L 100.0100, L500.2500, L501.4021 ####[facility] [address] [place], [address] Platelets (Bld) [#/Vol] 173 10*3/uL Normal 150-450 [facility] Comment on above: Performed By: #### L 100.0100, L500.2500, L501.4021 ####[facility] [address] [place], [address] RBC (Bld) [#/Vol] 4.24 10*6/uL Normal 4.2-5.4 [facility] Comment on above: Performed By: #### L 100.0100, L500.2500, L501.4021 ####[facility] [address] [place], [address] RDW SD 51.8 fl High 35.1-43.9 [facility] Comment on above: Performed By: #### L 100.0100, L500.2500, L501.4021 ####[facility] [address] [place], [address] WBC (Bld) [#/Vol] 5.7 10*3/uL Normal 4.4-11.0 [facility] Comment on above: Performed By: #### L 100.0100, L500.2500, L501.4021 ####[facility] [address] [place], [address] Absolute Lymph 1.00 X10 3/uL Normal 0.83-4.51 [facility] Comment on above: Performed By: #### L 501.9520, L100.0100, L300.3900, L503.7505, L500.2500 ####[facility] [address] [place], [address] Absolute Neut 3.0 X10 3/uL Normal 2.0-7.7 [facility] Comment on above: Performed By: #### L 501.9520, L100.0100, L300.3900, L503.7505, L500.2500 ####[facility] [address] [place], [address] Basophils/100 WBC (Bld) 1.0 % Normal 0-1 [facility] Comment on above: Performed By: #### L 501.9520, L100.0100, L300.3900, L503.7505, L500.2500 ####[facility] [address] [place], [address] Eosinophils/100 WBC (Bld) 1.8 % Normal 0-5 [facility] Comment on above: Performed By: #### L 501.9520, L100.0100, L300.3900, L503.7505, L500.2500 ####[facility] [address] [place], [address] Erythrocyte distribution width (RBC) [Ratio] 14.4 % Normal 11.6-14.6 [facility] Comment on above: Performed By: #### L 501.9520, L100.0100, L300.3900, L503.7505, L500.2500 ####[facility] [address] [place], [address] Hematocrit (Bld) [Volume fraction] 42.3 % Normal 37-47 [facility] Comment on above: Performed By: #### L 501.9520, L100.0100, L300.3900, L503.7505, L500.2500 ####[facility] [address] [place], [address] Hemoglobin (Bld) [Mass/Vol] 13.6 g/dL Normal 12.0-15.0 [facility] Comment on above: Performed By: #### L 501.9520, L100.0100, L300.3900, L503.7505, L500.2500 ####[facility] [address] [place], [address] IG% 0.400 Normal 0.0-0.9 [facility] Comment on above: Result Comment: IG% - Immature Granulocytes (promyelocytes, myelocytes andmetamyelocytes) > 1% indicates that a LEFT SHIFT is Present. Performed By: #### L 501.9520, L100.0100, L300.3900, L503.7505, L500.2500 ####[facility] [address] [place], [address] Lymphocytes/100 WBC (Bld) 20.0 % Normal 19-41 [facility] Comment on above: Performed By: #### L 501.9520, L100.0100, L300.3900, L503.7505, L500.2500 ####[facility] [address] [place], [address] MCH (RBC) [Entitic mass] 31.6 pg Normal 27.0-32.0 [facility] Comment on above: Performed By: #### L 501.9520, L100.0100, L300.3900, L503.7505, L500.2500 ####[facility] [address] [place], [address] MCHC (RBC) [Mass/Vol] 32.2 g/dL Normal 32-36 [facility] Comment on above: Performed By: #### L 501.9520, L100.0100, L300.3900, L503.7505, L500.2500 ####[facility] [address] [place], [address] MCV (RBC) [Entitic vol] 98.1 fL Normal 81-99 [facility] Comment on above: Performed By: #### L 501.9520, L100.0100, L300.3900, L503.7505, L500.2500 ####[facility] [address] [place], [address] Monocytes/100 WBC (Bld) 17.2 % High 0-10 [facility] Comment on above: Performed By: #### L 501.9520, L100.0100, L300.3900, L503.7505, L500.2500 ####[facility] [address] [place], [address] Neutrophils/100 WBC (Bld) 59.6 % Normal 47-70 [facility] Comment on above: Performed By: #### L 501.9520, L100.0100, L300.3900, L503.7505, L500.2500 ####[facility] [address] [place], [address] Nucleated RBC (Bld) [#/Vol] 0 10*3/uL Normal 0-5 [facility] Comment on above: Performed By: #### L 501.9520, L100.0100, L300.3900, L503.7505, L500.2500 ####[facility] [address] [place], [address] Platelet mean volume (Bld) [Entitic vol] 9.3 fL Normal 6.2-12.0 [facility] Comment on above: Performed By: #### L 501.9520, L100.0100, L300.3900, L503.7505, L500.2500 ####[facility] [address] [place], [address] Platelets (Bld) [#/Vol] 185 10*3/uL Normal 150-450 [facility] Comment on above: Performed By: #### L 501.9520, L100.0100, L300.3900, L503.7505, L500.2500 ####[facility] [address] [place], [address] RBC (Bld) [#/Vol] 4.31 10*6/uL Normal 4.2-5.4 [facility] Comment on above: Performed By: #### L 501.9520, L100.0100, L300.3900, L503.7505, L500.2500 ####[facility] [address] [place], [address] RDW SD 52.0 fl High 35.1-43.9 [facility] Comment on above: Performed By: #### L 501.9520, L100.0100, L300.3900, L503.7505, L500.2500 ####[facility] [address] [place], [address] WBC (Bld) [#/Vol] 5.0 10*3/uL Normal 4.4-11.0 [facility] Comment on above: Performed By: #### L 501.9520, L100.0100, L300.3900, L503.7505, L500.2500 ####[facility] [address] [place], [address] Carbon dioxide, total [Moles /volume] in Central venous bloodOrdered By: Car Soolmon on 01-30-2025 CO2 [Moles/Vol] 20.6 mmol/L Low 21.0-32.0 [facility] Carbon dioxide, total [Moles /volume] in Central venous bloodOrdered By: Tammie Pillai on 01-30-2025 CO2 [Moles/Vol] 21.0 mmol/L 21.0-32.0 [facility] Chest PA and Lateralon 01-30 Chest PA and Lateral Normal [facility] Chloride assayOrdered By: Gregory Solomon on 01-30-2025 Chloride [Moles/Vol] 99 mmol/L 98-108 [facility] Chloride assayOrdered By: Omar Pillai on 01-30-2025 Chloride [Moles/Vol] 99 mmol/L 98-108 [facility] Emergency Department Summary on 01-30-2025 Emergency Department Summary Normal [facility] Eosinophil percentageOrdered By: Car Solomon on 01-30-2025 Eosinophils/100 WBC (Bld) 2.4 % 0- [facility] Eosinophil percentageOrdered By: Tammie Pillai on 01-30-2025 Eosinophils/100 WBC (Bld) 1.8 % 0-5 [facility] Erythrocyte distribution wid th ratioOrdered By: Car Solomon on 01-30-2025 Erythrocyte distribution width (RBC) [Ratio] 14.5 % 11.6-14.6 [facility] Erythrocyte distribution wid th ratioOrdered By: Tammie Pillai on 01-30-2025 Erythrocyte distribution width (RBC) [Ratio] 14.4 % 11.6-14.6 [facility] Erythrocyte distribution wid th standard deviationOrdered By: Car Solomon on 01-30-2025 Erythrocyte distribution width (RBC) [Ratio] 51.8 fl High 35.1-43.9 [facility] Erythrocyte distribution wid th standard deviationOrdered By: Tammie Pillai on 01-30-2025 Erythrocyte distribution width (RBC) [Ratio] 52.0 fl High 35.1-43.9 [facility] Glomerular filtration rate ( GFR) estimation/1.73 sq m using serum, plasma, or whole bOrdered By: Car Solomon on 01-30-2025 GFR/1.73 sq M.predicted among non-blacks MDRD (S/P/Bld) [Vol rate/Area] 29 mL/min/{1.73_m2} Low >60 [facility] Comment on above: mL/min/1.73m2 CKD-EP I Creatinine Equation (2020) Glomerular filtration rate ( GFR) estimation/1.73 sq m using serum, plasma, or whole bOrdered By: Tammie Pillai on 01-30-2025 GFR/1.73 sq M.predicted among non-blacks MDRD (S/P/Bld) [Vol rate/Area] 36 mL/min/{1.73_m2} Low >60 [facility] Comment on above: mL/min/1.73m2 CKD-EP I Creatinine Equation (2020) Hematocrit Auto (Bld) [Volum e fraction]Ordered By: Car Solomon on 01-30-2025 Hematocrit (Bld) [Volume fraction] 41.4 % 37-47 [facility] Hematocrit Auto (Bld) [Volum e fraction]Ordered By: Tammie Pillai on 01-30-2025 Hematocrit (Bld) [Volume fraction] 42.3 % 37-47 [facility] Hemoglobin measurementOrdere d By: Car Solomon on 01-30-2025 Hemoglobin (Bld) [Mass/Vol] 13.5 g/dL 12.0-15.0 [facility] Hemoglobin measurementOrdere d By: Tammie Pillai on 01-30-2025 Hemoglobin (Bld) [Mass/Vol] 13.6 g/dL 12.0-15.0 [facility] Immature granulocytes/100 WB C Auto (Bld)Ordered By: Car Solomon on 01-30-2025 Immature granulocytes/100 WBC (Bld) 0.300 % 0.0-0.9 [facility] Comment on above: IG% - Immature Granu locytes (promyelocytes, myelocytes and metamyelocytes) > 1% indicates that a LEFT SHIFT is Present. Immature granulocytes/100 WB C Auto (Bld)Ordered By: Tammie Pillai on 01-30-2025 Immature granulocytes/100 WBC (Bld) 0.400 % 0.0-0.9 [facility] Comment on above: IG% - Immature Granu locytes (promyelocytes, myelocytes and metamyelocytes) > 1% indicates that a LEFT SHIFT is Present. International normalized rat io (INR) calculationOrdered By: Tammie Pillai on 01-30-2025 INR Coag (Bld) [Relative time] 6.7 {INR} High [facility] Comment on above: CRITICAL VALUE BRAVO D ROSALBA CUEVA RN ([facility])01/30/25 1359 Schuyler Dave.RESULTS READ BACK BY SAME. Ketones Test strip Ql (U)Ord ered By: Car Solomon on 01-30-2025 Ketones Ql (U) Negative Negative [facility] L499.0042on 01-30-2025 Trop T High Sen 51 ng/L High <=14 [facility] Comment on above: Result Comment: CRIT ICAL CALLED BY MICHAELA LAZCANO AT 2124 Performed By: #### L 499.0042 ####[facility] [address] [place], [address] L499.0043on 01-30-2025 Trop T High Sen Normal <=14 [facility] Comment on above: Result Comment: SANTIAGO ENT DISCHARGED Performed By: #### L 499.0043 ####[facility] [address] [place], [address] L501.4021on 01-30-2025 Trop T High Sen 56 ng/L Invalid Interpretation Code <=14 [facility] Comment on above: Result Comment: Crit ical Result(s) Called at: 2037 by: MICHAELA KING Results read back by same. Performed By: #### L 100.0100, L500.2500, L501.4021 ####[facility] [address] [place], [address] L503.7505on 01-30-2025 Natriuretic peptide B (Bld) [Mass/Vol] 1533 pg/mL Normal <=1800 [facility] Comment on above: Result Comment: Hear t Failure Unlikely: < 300 pg/mLHeart Failure Likely< 50 Years: > 450 pg/mL50-75 Years: > 900 pg/mL>75 Years: > 1800 pg/mL Performed By: #### L 501.9520, L100.0100, L300.3900, L503.7505, L500.2500 ####[facility] [address] [place], [address] Laboratory - Chemistry and C hemistry - challengeOrdered By: Car Solomon on 01-30-2025 AST [Catalytic activity/Vol] 62 U/L High <32 [facility] Comment on above: Hemolysis present, R esults could be affected. Lipaseon 01-30-2025 Lipase [Catalytic activity/Vol] 41 U/L Normal 13-75 [facility] Comment on above: Result Comment: Tito domínguez note:LIPASE revised reference range effective 22.New Lipase methodology. Expected to produce lower valuesthan the previous assay method.NEW Reference Range: 13 - 75 U/L Performed By: #### L 501.2450, L500.3400 ####[facility] [address] [place], [address] Lipase measurementOrdered By : Car Solomon on 01-30-2025 Lipase [Catalytic activity/Vol] 41 U/L 13-75 [facility] Comment on above: Please note:LIPASE r evised reference range effective 22. New Lipase methodology. Expected to produce lower values than the previous assay method. NEW Reference Range: 13 - 75 U/L Liver Profileon 01-30-2025 Albumin [Mass/Vol] 3.8 g/dL Normal 3.4-4.8 [facility] Comment on above: Performed By: #### L 501.2450, L500.3400 ####[facility] [address] [place], [address] ALK PHOS 115 U/L High 35-104 [facility] Comment on above: Performed By: #### L 501.2450, L500.3400 ####[facility] [address] [place], [address] ALT [Catalytic activity/Vol] 42 U/L High <=34 [facility] Comment on above: Performed By: #### L 501.2450, L500.3400 ####[facility] [address] [place], [address] AST [Catalytic activity/Vol] 62 U/L High <=31 [facility] Comment on above: Result Comment: Hemo lysis present, Results??could be affected.?? Performed By: #### L 501.2450, L500.3400 ####[facility] [address] [place], [address] Bilirubin [Mass/Vol] 1.67 mg/dL High 0.00-1.30 [facility] Comment on above: Performed By: #### L 501.2450, L500.3400 ####[facility] [address] [place], [address] Bilirubin.direct [Mass/Vol] 0.71 mg/dL High 0.00-0.30 [facility] Comment on above: Result Comment: Hemo lysis present, Results??could be affected.?? Performed By: #### L 501.2450, L500.3400 ####[facility] [address] [place], [address] Globulin (S) [Mass/Vol] 2.3 g/dL Normal 2.2-4.2 [facility] Comment on above: Performed By: #### L 501.2450, L500.3400 ####[facility] [address] [place], [address] T PROT 6.1 g/dL Normal 5.9-8.4 [facility] Comment on above: Performed By: #### L 501.2450, L500.3400 ####[facility] [address] [place], [address] MCV (mean corpuscular volume ) determinationOrdered By: Car Solomon on 01-30-2025 MCV (RBC) [Entitic vol] 97.6 fL 81-99 [facility] MCV (mean corpuscular volume ) determinationOrdered By: Tammie Pillai on 01-30-2025 MCV (RBC) [Entitic vol] 98.1 fL 81-99 [facility] Mean corpuscular hemoglobin (MCH) determinationOrdered By: Car Solomon on 01-30-2025 MCH (RBC) [Entitic mass] 31.8 pg 27.0-32.0 [facility] Mean corpuscular hemoglobin (MCH) determinationOrdered By: Tammie Pillai on 01-30-2025 MCH (RBC) [Entitic mass] 31.6 pg 27.0-32.0 [facility] Mean corpuscular hemoglobin concentration (MCHC) determinationOrdered By: Car Solomon on 01-30-2025 MCHC (RBC) [Mass/Vol] 32.6 g/dL -36 [facility] Mean corpuscular hemoglobin concentration (MCHC) determinationOrdered By: Tammie Pillai on 01-30-2025 MCHC (RBC) [Mass/Vol] 32.2 g/dL 32-36 [facility] Mean platelet volume determi nationOrdered By: Car Solomon on 01-30-2025 Platelet mean volume (Bld) [Entitic vol] 9.0 fL 6.2-12.0 [facility] Mean platelet volume determi nationOrdered By: Tammie Pillai on 01-30-2025 Platelet mean volume (Bld) [Entitic vol] 9.3 fL 6.2-12.0 [facility] Microscopic analysis of urin e for red blood cells (RBC)Ordered By: Car Solomon on 01-30-2025 Microscopic analysis of urine for red blood cells (RBC) 0-5 SEEN /hpf 0-5 [facility] Monocyte percentageOrdered B y: Car Solomon on 01-30-2025 Monocytes/100 WBC (Bld) 15.7 % High 0-10 [facility] Monocyte percentageOrdered B y: Tammie Pillai on 01-30-2025 Monocytes/100 WBC (Bld) 17.2 % High 0-10 [facility] Mucus LM Ql (Urine sed)Order ed By: Car Solomon on 01-30-2025 Mucus Ql (Urine sed) 0 SEEN /hpf [facility] Natriuretic peptide.B prohor alejandro N-Terminal [Mass/volume] in Serum or PlasmaOrdered By: Tammie Pillai on 01-30-2025 Natriuretic peptide.B prohormone N-Terminal [Mass/Vol] 1533 pg/mL <1800 [facility] Comment on above: Heart Failure Unlike ly: < 300 pg/mLHeart Failure Likely< 50 Years: > 450 pg/mL50-75 Years: > 900 pg/mL>75 Years: > 1800 pg/mL Neutrophil percentageOrdered By: Car Solomon on 01-30-2025 Neutrophils/100 WBC (Bld) 66.1 % -70 [facility] Neutrophil percentageOrdered By: Tammie Pillai on 01-30-2025 Neutrophils/100 WBC (Bld) 59.6 % -70 [facility] Nitrite Test strip Ql (U)Ord ered By: Car Solomon on 01-30-2025 Nitrite Ql (U) Negative Negative [facility] No Panel InformationOrdered By: Car Solomon on 01-30-2025 62 U/L High <32 [facility] Nucleated red blood cell per centageOrdered By: Car Solomon on 01-30-2025 Nucleated RBC/100 WBC (Bld) [Ratio] 0 % 0-5 [facility] Nucleated red blood cell per centageOrdered By: Tammie Pillai on 01-30-2025 Nucleated RBC/100 WBC (Bld) [Ratio] 0 % 0-5 [facility] Platelet countOrdered By: Gregory Solomon on 01-30-2025 Platelets (Bld) [#/Vol] 173 10*3/uL 150-450 [facility] Platelet countOrdered By: Omar Pillai on 01-30-2025 Platelets (Bld) [#/Vol] 185 10*3/uL 150-450 [facility] Potassium measurement (mass/ volume)Ordered By: Car Solomon on 01-30-2025 Potassium (Unsp spec) [Mass/Vol] 4.9 mmol/L 3.3-5.1 [facility] Comment on above: Hemolysis present, R esults could be affected. Potassium measurement (mass/ volume)Ordered By: Tammie Pillai on 01-30-2025 Potassium (Unsp spec) [Mass/Vol] 4.6 mmol/L 3.3-5.1 [facility] Protein Test strip Ql (U)Ord ered By: Car Solomon on 01-30-2025 Protein Ql (U) 100 mg/dl High Negative [facility] Prothrombin Time w/INRon INR Coag (PPP) [Relative time] 6.7 {INR} Invalid Interpretation Code [facility] Comment on above: Result Comment: CRIT ICAL VALUE CALLED TO ANAY FRAUSTO ([facility])01/30/25 1359 Schuyler Dave.RESULTS READ BACK BY SAME. Performed By: #### L 501.9520, L100.0100, L300.3900, L503.7505, L500.2500 ####[facility] [address] [place], [address] PT Coag (PPP) [Time] 59.8 s High 11.7-14.9 [facility] Comment on above: Performed By: #### L 501.9520, L100.0100, L300.3900, L503.7505, L500.2500 ####[facility] [address] [place], [address] Prothrombin timeOrdered By: Tammie Pillai on 01-30-2025 PT Coag (PPP) [Time] 59.8 s High 11.7-14.9 [facility] RBC Auto (Bld) [#/Vol]Ordere d By: Car Solomon on 01-30-2025 RBC (Bld) [#/Vol] 4.24 10*6/uL 4.2-5.4 [facility] RBC Auto (Bld) [#/Vol]Ordere d By: Tammie Pillai on 01-30-2025 RBC (Bld) [#/Vol] 4.31 10*6/uL 4.2-5.4 [facility] Serum creatinine measurement (mass/volume)Ordered By: Car Solomon on 01-30-2025 Creatinine [Mass/Vol] 1.70 mg/dL High 0.70-1.20 [facility] Serum creatinine measurement (mass/volume)Ordered By: Tammie Pillai on 01-30-2025 Creatinine [Mass/Vol] 1.41 mg/dL High 0.70-1.20 [facility] Serum globulin measurementOr dered By: Car Solomon on 01-30-2025 Globulin (S) [Mass/Vol] 2.3 g/dL 2.2-4.2 [facility] Serum glucose measurement (m ass/volume)Ordered By: Car Solomon on 01-30-2025 Glucose [Mass/Vol] 136 mg/dL High 70-99 [facility] Serum glucose measurement (m ass/volume)Ordered By: Tammie Pillai on 01-30-2025 Glucose [Mass/Vol] 93 mg/dL 70-99 [facility] Serum or plasma alanine henderson otransferase (ALT) measurementOrdered By: Car Solomon on 01-30-2025 ALT [Catalytic activity/Vol] 42 U/L High <35 [facility] Serum or plasma albumin caleb urement (mass/volume)Ordered By: Car Solomon on 01-30-2025 Albumin [Mass/Vol] 3.8 g/dL 3.4-4.8 [facility] Serum or plasma alkaline lexus sphatase measurementOrdered By: Car Solomon on 01-30-2025 ALP [Catalytic activity/Vol] 115 U/L High 35-104 [facility] Serum or plasma calcium caleb urement (mass/volume)Ordered By: Car Solomon on 01-30-2025 Calcium [Mass/Vol] 9.0 mg/dL 7.6-11.0 [facility] Serum or plasma calcium caleb urement (mass/volume)Ordered By: Tammie Pillai on 01-30-2025 Calcium [Mass/Vol] 9.0 mg/dL 7.6-11.0 [facility] Serum or plasma urea nitroge n measurement (mass/volume)Ordered By: Car Solomon on 01-30-2025 Urea nitrogen [Mass/Vol] 37 mg/dL High 4-19 [facility] Serum or plasma urea nitroge n measurement (mass/volume)Ordered By: Tammie Pillai on 01-30-2025 Urea nitrogen [Mass/Vol] 34 mg/dL High 4-19 [facility] Sodium levelOrdered By: Alondra Solomon on 01-30-2025 Sodium [Moles/Vol] 132 mmol/L Low 133-145 [facility] Sodium levelOrdered By: Ely Pillai on 01-30-2025 Sodium [Moles/Vol] 132 mmol/L Low 133-145 [facility] Squamous epithelial cells de tection in urine sediment by light microscopyOrdered By: Car Solomon on 01-30-2025 Epithelial cells.squamous LM Ql (Urine sed) 5-10 SEEN /hpf 5-10 [facility] TSH DL <= 0.005 mIU/L QnOrde red By: Tammie Pillai on 01-30-2025 TSH Qn 2.200 uIU/mL 0.300-4.200 [facility] Thyroid Stim Hormone (TSH)on 01-30-2025 TSH 2.200 uIU/mL Normal 0.300-4.200 [facility] Comment on above: Performed By: #### L 501.9520, L100.0100, L300.3900, L503.7505, L500.2500 ####[facility] [address] [place], [place], [address] Total proteinOrdered By: Shivani Solomon on 01-30-2025 Protein [Mass/Vol] 6.1 g/dL 5.9-8.4 [facility] Transitional cells detection in urine sediment by light microscopyOrdered By: Car Solomon on 01-30-2025 Transitional cells LM Ql (Urine sed) 5-10 SEEN /hpf 0-5 [facility] Troponin T.cardiac [Mass/vol ume] in Serum or Plasma by High sensitivity methodOrdered By: Car Solomon on 01-30-2025 Troponin T.cardiac High sensitivity method [Mass/Vol] 51 ng/L High <14 [facility] Comment on above: CRITICAL CALLED BY Marlen LAZCANO AT 2124 Troponin T.cardiac High sensitivity method [Mass/Vol] 56 ng/L Critically high <14 [facility] Comment on above: Critical Result(s) C alled at: 2037 by: MICHAELA NGUYEN TO STEVO KING Results read back by same. Urinalysis, Completeon 01-30 EPI,TRANSITION 5-10 SEEN Normal 0-5 [facility] Comment on above: Order Comment: DAPHNEY CTOR TO SPECIFY Performed By: #### L 400.0001 ####[facility] [address] [place], [address] EPI,SQUAMOUS 5-10 SEEN Normal 5-10 [facility] Comment on above: Order Comment: DAPHNEY CTOR TO SPECIFY Performed By: #### L 400.0001 ####[facility] [address] [place], [address] RBC 0-5 SEEN Normal 0-5 [facility] Comment on above: Order Comment: DAPHNEY CTOR TO SPECIFY Performed By: #### L 400.0001 ####[facility] [address] [place], [address] WBC 25-50 SEEN Normal 0-5 [facility] Comment on above: Order Comment: DAPHNEY CTOR TO SPECIFY Performed By: #### L 400.0001 ####[facility] [address] [place], [address] BACTERIA 0 SEEN Normal None Seen [facility] Comment on above: Order Comment: DAPHNEY CTOR TO SPECIFY Performed By: #### L 400.0001 ####[facility] [address] [place], [address] Mucus Ql (Urine sed) 0 SEEN Normal [facility] Comment on above: Order Comment: DAPHNEY CTOR TO SPECIFY Performed By: #### L 400.0001 ####[facility] [address] [place], [address] Urine clarityOrdered By: Shivani Solomon on 01-30-2025 Clarity (U) Cloudy Clear [facility] Urine color determinationOrd ered By: Car Solomon on 01-30-2025 Color (U) Yellow Yellow [facility] Urine glucose detectionOrder ed By: Car Solomon on 01-30-2025 Glucose Ql (U) 1000 mg/dl High Normal [facility] Urine leukocyte esterase det ection by dipstickOrdered By: Car Solomon on 01-30-2025 Leukocyte esterase Test strip Ql (U) 100 /ul High Negative [facility] Urine pHOrdered By: Car raymundo on 01-30-2025 pH (U) 5.0 [pH] 5.0 - 8.0 [facility] Urine sediment bacteria coun t by microscopy (number/high power field)Ordered By: Car Solomon on 01-30-2025 Bacteria LM.HPF (Urine sed) [#/Area] 0 /[HPF] None Seen [facility] Urine specific gravity measu rementOrdered By: Car Solomon on 01-30-2025 Specific gravity (U) [Rel density] 1.015 1.002-1.030 [facility] Urine urobilinogen measureme ntOrdered By: Car Solomon on 01-30-2025 Urobilinogen Ql (U) Normal mg/dl Normal [facility] White blood cell (WBC) count Ordered By: Car Solomon on 01-30-2025 WBC (Bld) [#/Vol] 5.7 10*3/uL 4.4-11.0 [facility] White blood cell (WBC) count Ordered By: Tammie Pillai on 01-30-2025 WBC (Bld) [#/Vol] 5.0 10*3/uL 4.4-11.0 [facility] White blood cell countOrdere d By: Car Solomon on 01-30-2025 White blood cell count 25-50 SEEN /hpf 0-5 [facility] International normalized rat io (INR) calculationOrdered By: Eun Lloyd on 01-10-2025 INR Coag (Bld) [Relative time] 3.5 {INR} [facility] Prothrombin Time w/INRon INR Coag (PPP) [Relative time] 3.5 {INR} Normal [facility] Comment on above: Performed By: #### L 300.5843 ####[facility] [address] [place], [address] PT Coag (PPP) [Time] 35.5 s High 11.7-14.9 [facility] Comment on above: Performed By: #### L 300.3900 ####[facility] [address] [place], [place], [address] Prothrombin timeOrdered By: Eun Lloyd on 01-10-2025 PT Coag (PPP) [Time] 35.5 s High 11.7-14.9 [facility] Cardiology Visit Reporton Cardiology Visit Report Normal [facility] Bilirubin directOrdered By: Eun Lloyd on 12-02-2024 Bilirubin.direct [Mass/Vol] 0.42 mg/dL High 0.00-0.30 [facility] Bilirubin, totalOrdered By: Eun Lloyd on 12-02-2024 Bilirubin [Mass/Vol] 0.83 mg/dL 0.00-1.30 [facility] Calculated very low density lipoprotein (VLDL) cholesterol measurementOrdered By: Eun Lloyd on 12-02-2024 Calculated very low density lipoprotein (VLDL) cholesterol measurement 16 mg/dL 5-40 [facility] International normalized rat io (INR) calculationOrdered By: Penny Richards on 12-02-2024 INR Coag (Bld) [Relative time] 2.5 {INR} [facility] LDL calc ser/plasOrdered By: Eun Lloyd on 12-02-2024 Cholesterol in LDL [Mass/Vol] 53 mg/dL [facility] Comment on above: Tpohnkpryt=875-919 m g/dL & Higher Team=993 mg/dL or greater Laboratory - Chemistry and C hemistry - challengeOrdered By: Eun Lloyd on 12-02-2024 AST [Catalytic activity/Vol] 31 U/L <32 [facility] Lipid Profileon 12-02-2024 CHOL:HDL 2.15 Normal [facility] Comment on above: Performed By: #### L 500.3400, L500.4100 ####[facility] [address] [place], [address] Cholesterol [Mass/Vol] 128 mg/dL Normal <=200 [facility] Comment on above: Result Comment: Chol esterol level, Desirable <200 mg/dLBorderline high cholesterol 200-239 mg/dLHigh cholesterol >=240 mg/dLRecommendations of the NCEP Adult Treatment Panel for thefollowing risk-cutoff thresholds for the [place] [facility]. Performed By: #### L 500.3400, L500.4100 ####[facility] [address] [place], [address] Cholesterol in HDL [Mass/Vol] 59 mg/dL Normal [facility] Comment on above: Result Comment: Sharita onal Cholesterol Education Program (NCEP) guidelines:<40 mg/dL: Low HDL-cholesterol (major risk factor for CHD)>= 60 mg/dL: High HDL-cholesterol (negative risk factor forCHD)HDL-cholesterol is affected by a number of factors, e.g.smoking, exercise, hormones, sex and age. Performed By: #### L 500.3400, L500.4100 ####[facility] [address] [place], [address] Cholesterol in LDL [Mass/Vol] 53 mg/dL Normal [facility] Comment on above: Result Comment: Bord dzsesx=569-050 mg/dL Higher Ioqe=206 mg/dL or greater Performed By: #### L 500.3400, L500.4100 ####[facility] [address] [place], [address] Cholesterol in VLDL [Mass/Vol] 16 mg/dL Normal 5-40 [facility] Comment on above: Performed By: #### L 500.3400, L500.4100 ####[facility] [address] [place], [address] Triglyceride [Mass/Vol] 79 mg/dL Normal [facility] Comment on above: Result Comment: The drugs N-Acetylcysteine and Metamizole may falselydepress this assay.Normal range: <150 mg/dLBorderline High: 150-199 mg/dLHigh: 200-499 mg/dLVery High: >500 mg/dL Performed By: #### L 500.3400, L500.4100 ####[facility] [address] [place], [address] Liver Profileon 12-02-2024 Albumin [Mass/Vol] 4.1 g/dL Normal 3.4-4.8 [facility] Comment on above: Performed By: #### L 500.3400, L500.4100 ####[facility] [address] [place], [address] ALK PHOS 94 U/L Normal 35-104 [facility] Comment on above: Performed By: #### L 500.3400, L500.4100 ####[facility] [address] [place], [address] ALT [Catalytic activity/Vol] 22 U/L Normal <=34 [facility] Comment on above: Performed By: #### L 500.3400, L500.4100 ####[facility] [address] [place], [address] AST [Catalytic activity/Vol] 31 U/L Normal <=31 [facility] Comment on above: Performed By: #### L 500.3400, L500.4100 ####[facility] [address] [place], [address] Bilirubin [Mass/Vol] 0.83 mg/dL Normal 0.00-1.30 [facility] Comment on above: Performed By: #### L 500.3400, L500.4100 ####[facility] [address] [place], [address] Bilirubin.direct [Mass/Vol] 0.42 mg/dL High 0.00-0.30 [facility] Comment on above: Performed By: #### L 500.3400, L500.4100 ####[facility] [address] [place], [address] Globulin (S) [Mass/Vol] 2.6 g/dL Normal 2.2-4.2 [facility] Comment on above: Performed By: #### L 500.3400, L500.4100 ####[facility] [address] [place], [address] T PROT 6.7 g/dL Normal 5.9-8.4 [facility] Comment on above: Performed By: #### L 500.3400, L500.4100 ####[facility] [address] [place], [address] No Panel InformationOrdered By: Eun Lloyd on 12-02-2024 31 U/L <32 [facility] Prothrombin Time w/INRon INR Coag (PPP) [Relative time] 2.5 {INR} Normal [facility] Comment on above: Order Comment: Comme nts: STANDING ORDER Performed By: #### L 300.3900 ####[facility] [address] [place], [address] PT Coag (PPP) [Time] 27.9 s High 11.7-14.9 [facility] Comment on above: Order Comment: Comme nts: STANDING ORDER Performed By: #### L 300.3900 ####[facility] [address] [place], [address] Prothrombin timeOrdered By: Penny Richards on 12-02-2024 PT Coag (PPP) [Time] 27.9 s High 11.7-14.9 [facility] Screening total cholesterol/ high density lipoprotein (HDL) cholesterol ratioOrdered By: Eun Lloyd on 12-02-2024 Cholesterol.total/Edyta sterol in HDL [Mass ratio] 2.15 {ratio} [facility] Serum globulin measurementOr dered By: Eun Lloyd on 12-02-2024 Globulin (S) [Mass/Vol] 2.6 g/dL 2.2-4.2 [facility] Serum or plasma alanine henderson otransferase (ALT) measurementOrdered By: Eun Lloyd on 12-02-2024 ALT [Catalytic activity/Vol] 22 U/L <35 [facility] Serum or plasma albumin caleb urement (mass/volume)Ordered By: Eun Lloyd on 12-02-2024 Albumin [Mass/Vol] 4.1 g/dL 3.4-4.8 [facility] Serum or plasma alkaline lexus sphatase measurementOrdered By: Eun Lloyd on 12-02-2024 ALP [Catalytic activity/Vol] 94 U/L 35-104 [facility] Serum or plasma cholesterol in HDL measurement (mass/volume)Ordered By: Eun Lloyd on 12-02-2024 Cholesterol in HDL [Mass/Vol] 59 mg/dL >40 [facility] Comment on above: National Cholesterol Education Program (NCEP) guidelines:<40 mg/dL: Low HDL-cholesterol (major risk factor for CHD)>= 60 mg/dL: High HDL-cholesterol (negative risk factor for CHD)HDL-cholesterol is affected by a number of factors, e.g. smoking, exercise, hormones, sex and age. Serum or plasma cholesterol measurement (mass/volume)Ordered By: Eun Lloyd on 12-02-2024 Cholesterol [Mass/Vol] 128 mg/dL <201 [facility] Comment on above: Cholesterol level, D esirable <200 mg/dLBorderline high cholesterol 200-239 mg/dLHigh cholesterol >=240 mg/dLRecommendations of the NCEP Adult Treatment Panel for the following risk-cutoff thresholds for the [place] population. Total proteinOrdered By: Ernesto Lloyd on 12-02-2024 Protein [Mass/Vol] 6.7 g/dL 5.9-8.4 [facility] Triglycerides measurementOrd ered By: Eun Lloyd on 12-02-2024 Triglyceride [Mass/Vol] 79 mg/dL <199 [facility] Comment on above: The drugs N-Acetylcy steine and Metamizole may falsely depress this assay. Normal range: <150 mg/dLBorderline High: 150-199 mg/dLHigh: 200-499 mg/dLVery High: >500 mg/dL Bilirubin directOrdered By: Eun Lloyd on 11-02-2024 Bilirubin.direct [Mass/Vol] 0.51 mg/dL High 0.00-0.30 [facility] Bilirubin, totalOrdered By: Eun Lloyd on 11-02-2024 Bilirubin [Mass/Vol] 1.04 mg/dL 0.00-1.30 [facility] Calculated very low density lipoprotein (VLDL) cholesterol measurementOrdered By: Eun Lloyd on 11-02-2024 Calculated very low density lipoprotein (VLDL) cholesterol measurement 12 mg/dL 5-40 [facility] International normalized rat io (INR) calculationOrdered By: Eun Lloyd on 11-02-2024 INR Coag (Bld) [Relative time] 2.6 {INR} [facility] LDL calc ser/plasOrdered By: Eun Lloyd on 11-02-2024 Cholesterol in LDL [Mass/Vol] 61 mg/dL [facility] Comment on above: Qmdztizayk=042-737 m g/dL & Higher Uzys=269 mg/dL or greater Laboratory - Chemistry and C hemistry - challengeOrdered By: Eun Lloyd on 11-02-2024 AST [Catalytic activity/Vol] 31 U/L <32 [facility] Lipid Profileon 11-02-2024 CHOL:HDL 2.08 Normal [facility] Comment on above: Performed By: #### L 300.3900, L500.3400, L500.4100 ####[facility] [address] [place], [place], [id number] Cholesterol [Mass/Vol] 140 mg/dL Normal <=200 [facility] Comment on above: Result Comment: Chol esterol level, Desirable <200 mg/dLBorderline high cholesterol 200-239 mg/dLHigh cholesterol >=240 mg/dLRecommendations of the NCEP Adult Treatment Panel for thefollowing risk-cutoff thresholds for the [place] Americanpulation. Performed By: #### L 300.3900, L500.3400, L500.4100 ####[facility] [address] [place], [address] Cholesterol in HDL [Mass/Vol] 67 mg/dL Normal [facility] Comment on above: Result Comment: Shartia onal Cholesterol Education Program (NCEP) guidelines:<40 mg/dL: Low HDL-cholesterol (major risk factor for CHD)>= 60 mg/dL: High HDL-cholesterol (negative risk factor forCHD)HDL-cholesterol is affected by a number of factors, e.g.smoking, exercise, hormones, sex and age. Performed By: #### L 300.3900, L500.3400, L500.4100 ####[facility] [address] [place], [address] Cholesterol in LDL [Mass/Vol] 61 mg/dL Normal [facility] Comment on above: Result Comment: Bord yyhrvk=463-006 mg/dL Higher Ervz=797 mg/dL or greater Performed By: #### L 300.3900, L500.3400, L500.4100 ####[facility] [address] [place], [address] Cholesterol in VLDL [Mass/Vol] 12 mg/dL Normal 5-40 [facility] Comment on above: Performed By: #### L 300.3900, L500.3400, L500.4100 ####[facility] [address] [place], [address] Triglyceride [Mass/Vol] 61 mg/dL Normal [facility] Comment on above: Result Comment: The drugs N-Acetylcysteine and Metamizole may falselydepress this assay.Normal range: <150 mg/dLBorderline High: 150-199 mg/dLHigh: 200-499 mg/dLVery High: >500 mg/dL Performed By: #### L 300.3900, L500.3400, L500.4100 ####[facility] [address] [place], [address] Liver Profileon 11-02-2024 Albumin [Mass/Vol] 4.2 g/dL Normal 3.4-4.8 [facility] Comment on above: Performed By: #### L 300.3900, L500.3400, L500.4100 ####[facility] [address] [place], [address] ALK PHOS 95 U/L Normal 35-104 [facility] Comment on above: Performed By: #### L 300.3900, L500.3400, L500.4100 ####[facility] [address] [place], [address] ALT [Catalytic activity/Vol] 23 U/L Normal <=34 [facility] Comment on above: Performed By: #### L 300.3900, L500.3400, L500.4100 ####[facility] [address] [place], [address] AST [Catalytic activity/Vol] 31 U/L Normal <=31 [facility] Comment on above: Performed By: #### L 300.3900, L500.3400, L500.4100 ####[facility] [address] [place], [address] Bilirubin [Mass/Vol] 1.04 mg/dL Normal 0.00-1.30 [facility] Comment on above: Performed By: #### L 300.3900, L500.3400, L500.4100 ####[facility] [address] [place], [address] Bilirubin.direct [Mass/Vol] 0.51 mg/dL High 0.00-0.30 [facility] Comment on above: Performed By: #### L 300.3900, L500.3400, L500.4100 ####[facility] [address] [place], [address] Globulin (S) [Mass/Vol] 2.8 g/dL Normal 2.2-4.2 [facility] Comment on above: Performed By: #### L 300.3900, L500.3400, L500.4100 ####[facility] [address] [place], [address] T PROT 6.9 g/dL Normal 5.9-8.4 [facility] Comment on above: Performed By: #### L 300.3900, L500.3400, L500.4100 ####[facility] [address] [place], [address] No Panel InformationOrdered By: Eun Lloyd on 11-02-2024 31 U/L <32 [facility] Prothrombin Time w/INRon INR Coag (PPP) [Relative time] 2.6 {INR} Normal [facility] Comment on above: Performed By: #### L 300.3900, L500.3400, L500.4100 ####[facility] [address] [place], [address] PT Coag (PPP) [Time] 28.6 s High 11.7-14.9 [facility] Comment on above: Performed By: #### L 300.3900, L500.3400, L500.4100 ####[facility] [address] [place], [address] Prothrombin timeOrdered By: Eun Lloyd on 11-02-2024 PT Coag (PPP) [Time] 28.6 s High 11.7-14.9 [facility] Screening total cholesterol/ high density lipoprotein (HDL) cholesterol ratioOrdered By: Eun Lloyd on 11-02-2024 Cholesterol.total/Edyta sterol in HDL [Mass ratio] 2.08 {ratio} [facility] Serum globulin measurementOr dered By: Eun Lloyd on 11-02-2024 Globulin (S) [Mass/Vol] 2.8 g/dL 2.2-4.2 [facility] Serum or plasma alanine henderson otransferase (ALT) measurementOrdered By: Eun Lloyd on 11-02-2024 ALT [Catalytic activity/Vol] 23 U/L <35 [facility] Serum or plasma albumin caleb urement (mass/volume)Ordered By: Eun Lloyd on 11-02-2024 Albumin [Mass/Vol] 4.2 g/dL 3.4-4.8 [facility] Serum or plasma alkaline lexus sphatase measurementOrdered By: Eun Lloyd on 11-02-2024 ALP [Catalytic activity/Vol] 95 U/L 35-104 [facility] Serum or plasma cholesterol in HDL measurement (mass/volume)Ordered By: Eun Lloyd on 11-02-2024 Cholesterol in HDL [Mass/Vol] 67 mg/dL >40 [facility] Comment on above: National Cholesterol Education Program (NCEP) guidelines:<40 mg/dL: Low HDL-cholesterol (major risk factor for CHD)>= 60 mg/dL: High HDL-cholesterol (negative risk factor for CHD)HDL-cholesterol is affected by a number of factors, e.g. smoking, exercise, hormones, sex and age. Serum or plasma cholesterol measurement (mass/volume)Ordered By: Eun Lloyd on 11-02-2024 Cholesterol [Mass/Vol] 140 mg/dL <201 [facility] Comment on above: Cholesterol level, D esirable <200 mg/dLBorderline high cholesterol 200-239 mg/dLHigh cholesterol >=240 mg/dLRecommendations of the NCEP Adult Treatment Panel for the following risk-cutoff thresholds for the [place] population. Total proteinOrdered By: Ernesto Lloyd on 11-02-2024 Protein [Mass/Vol] 6.9 g/dL 5.9-8.4 [facility] Triglycerides measurementOrd ered By: Eun Lloyd on 11-02-2024 Triglyceride [Mass/Vol] 61 mg/dL <199 [facility] Comment on above: The drugs N-Acetylcy steine and Metamizole may falsely depress this assay. Normal range: <150 mg/dLBorderline High: 150-199 mg/dLHigh: 200-499 mg/dLVery High: >500 mg/dL Cardiology Visit Reporton Cardiology Visit Report Normal [facility] CRPon 10-06-2024 C-REACTIVE PROT 3.29 mg/L High 0.0-3.0 [facility] Comment on above: Performed By: #### L 501.6710 ####[facility] [address] [place], [place], [id number]([phone] CRP [Mass/Vol]Ordered By: Elina Fish on 10-06-2024 C-Reactive Protein Extended Range 3.29 mg/L High 0.0-3.0 [facility] International normalized rat io (INR) calculationOrdered By: Eun Lloyd on 10-06-2024 INR Coag (Bld) [Relative time] 2.6 {INR} [facility] Prothrombin Time w/INRon INR Coag (PPP) [Relative time] 2.6 {INR} Normal [facility] Comment on above: Performed By: #### L 300.3900 ####[facility] [address] [place], [address] PT Coag (PPP) [Time] 28.4 s High 11.7-14.9 [facility] Comment on above: Performed By: #### L 300.3900 ####[facility] [address] [place], [address] Prothrombin timeOrdered By: Eun Lloyd on 10-06-2024 PT Coag (PPP) [Time] 28.4 s High 11.7-14.9 [facility] Serum or plasma C reactive p rotein measurement (mass/volume)Ordered By: Radha Fish on 10-06-2024 CRP [Mass/Vol] 3.29 mg/L High 0.0-3.0 [facility] International normalized rat io (INR) calculationOrdered By: Eun Lloyd on 09-12-2024 INR Coag (Bld) [Relative time] 3.3 {INR} [facility] Prothrombin Time w/INRon INR Coag (PPP) [Relative time] 3.3 {INR} Normal [facility] Comment on above: Performed By: #### L 300.3900 ####[facility] [address] [place], [id number] PT Coag (PPP) [Time] 34.1 s High 11.7-14.9 [facility] Comment on above: Performed By: #### L 300.3900 ####[facility] [address] [place], [id number] Prothrombin timeOrdered By: Eun Lloyd on 09-12-2024 PT Coag (PPP) [Time] 34.1 s High 11.7-14.9 [facility] 69-VX-Qjixjfv DOrdered By: Sisi Fish on 09-01-2024 Vitamin D 25-Hydroxy 58.4 ng/mL [facility] Comment on above: Vitamin D 25(OH) Sta tus Range Deficiency <20 ng/mL (50nmol/L) Insufficiency 20 - 30 ng/mL (50 - 75 nmol/L) Sufficiency 30 - 100 ng/mL (75 - 250 nmol/L) Toxicity >100 ng/mL (>250 nmol/L) Absolute neutrophil countOrd ered By: Radha Fish on 09-01-2024 Neutrophils (Bld) [#/Vol] 4.6 10*3/uL 2.0-7.7 [facility] Albumin to globulin ratioOrd ered By: Radha Fish on 09-01-2024 Albumin/Globulin [Mass ratio] 0.9 {ratio} 0.9-2.4 [facility] Basophil percentageOrdered B y: Radha Fish on 09-01-2024 Basophils/100 WBC (Bld) 0.7 % 0-1 [facility] Bilirubin, totalOrdered By: Radha Fish on 09-01-2024 Bilirubin [Mass/Vol] 1.20 mg/dL High 0.20-1.00 [facility] Comment on above: For patients on eltr ombopag therapy, use of Dimension [place] TBIL is not recommended. Blood urea nitrogen (BUN)/cr eatinine ratioOrdered By: Radha Fish on 09-01-2024 Urea nitrogen/Creatinine [Mass ratio] 18.1 mg/mg 10-20 [facility] C-reactive protein measureme nt by high sensitivity methodOrdered By: Radha Fish on 09-01-2024 C-Reactive Protein Extended Range 7.31 mg/L High 0.0-3.0 [facility] Comment on above: C-Reactive Protein ( CRP) provides useful information for thediagnosis, therapy and monitoring of inflammatory processesand associated diseases. For the evaluation of Relative Riskfor Cardiovascular Disease, a High Sensitivity CRP (HSCRP)should be ordered. CBC W/Diff, Automatedon 08-05 Absolute Lymph 1.02 X10 3/uL Normal 0.83-4.51 [facility] Comment on above: Performed By: #### L 506.1000, L500.4050, L501.6710, L501.9520, L100.0100, L101.9900 ####[facility] [address] [place], [address] Absolute Neut 4.6 X10 3/uL Normal 2.0-7.7 [facility] Comment on above: Performed By: #### L 506.1000, L500.4050, L501.6710, L501.9520, L100.0100, L101.9900 ####[facility] [address] [place], [address] Basophils/100 WBC (Bld) 0.7 % Normal 0-1 [facility] Comment on above: Performed By: #### L 506.1000, L500.4050, L501.6710, L501.9520, L100.0100, L101.9900 ####[facility] [address] [place], [address] Eosinophils/100 WBC (Bld) 3.4 % Normal 0-5 [facility] Comment on above: Performed By: #### L 506.1000, L500.4050, L501.6710, L501.9520, L100.0100, L101.9900 ####[facility] [address] [place], [address] Erythrocyte distribution width (RBC) [Ratio] 14.5 % Normal 11.6-14.6 [facility] Comment on above: Performed By: #### L 506.1000, L500.4050, L501.6710, L501.9520, L100.0100, L101.9900 ####[facility] [address] [place], [address] Hematocrit (Bld) [Volume fraction] 41.8 % Normal 37-47 [facility] Comment on above: Performed By: #### L 506.1000, L500.4050, L501.6710, L501.9520, L100.0100, L101.9900 ####[facility] [address] [place], [address] Hemoglobin (Bld) [Mass/Vol] 13.5 g/dL Normal 12.0-15.0 [facility] Comment on above: Performed By: #### L 506.1000, L500.4050, L501.6710, L501.9520, L100.0100, L101.9900 ####[facility] [address] [place], [address] IG% 0.300 Normal 0.0-0.9 [facility] Comment on above: Result Comment: IG% - Immature Granulocytes (promyelocytes, myelocytes andmetamyelocytes) > 1% indicates that a LEFT SHIFT is Present. Performed By: #### L 506.1000, L500.4050, L501.6710, L501.9520, L100.0100, L101.9900 ####[facility] [address] [place], [address] Lymphocytes/100 WBC (Bld) 15.1 % Low 19-41 [facility] Comment on above: Performed By: #### L 506.1000, L500.4050, L501.6710, L501.9520, L100.0100, L101.9900 ####[facility] [address] [place], [address] MCH (RBC) [Entitic mass] 32.8 pg High 27.0-32.0 [facility] Comment on above: Performed By: #### L 506.1000, L500.4050, L501.6710, L501.9520, L100.0100, L101.9900 ####[facility] [address] [place], [address] MCHC (RBC) [Mass/Vol] 32.3 g/dL Normal 32-36 [facility] Comment on above: Performed By: #### L 506.1000, L500.4050, L501.6710, L501.9520, L100.0100, L101.9900 ####[facility] [address] [place], [address] MCV (RBC) [Entitic vol] 101.5 fL High 81-99 [facility] Comment on above: Performed By: #### L 506.1000, L500.4050, L501.6710, L501.9520, L100.0100, L101.9900 ####[facility] [address] [place], [address] Monocytes/100 WBC (Bld) 12.4 % High 0-10 [facility] Comment on above: Performed By: #### L 506.1000, L500.4050, L501.6710, L501.9520, L100.0100, L101.9900 ####[facility] [address] [place], [address] Neutrophils/100 WBC (Bld) 68.1 % Normal 47-70 [facility] Comment on above: Performed By: #### L 506.1000, L500.4050, L501.6710, L501.9520, L100.0100, L101.9900 ####[facility] [address] [place], [address] Nucleated RBC (Bld) [#/Vol] 0 10*3/uL Normal 0-5 [facility] Comment on above: Performed By: #### L 506.1000, L500.4050, L501.6710, L501.9520, L100.0100, L101.9900 ####[facility] [address] [place], [address] Platelet mean volume (Bld) [Entitic vol] 8.7 fL Normal 6.2-12.0 [facility] Comment on above: Performed By: #### L 506.1000, L500.4050, L501.6710, L501.9520, L100.0100, L101.9900 ####[facility] [address] [place], [address] Platelets (Bld) [#/Vol] 202 10*3/uL Normal 150-450 [facility] Comment on above: Performed By: #### L 506.1000, L500.4050, L501.6710, L501.9520, L100.0100, L101.9900 ####[facility] [address] [place], [address] RBC (Bld) [#/Vol] 4.12 10*6/uL Low 4.2-5.4 [facility] Comment on above: Performed By: #### L 506.1000, L500.4050, L501.6710, L501.9520, L100.0100, L101.9900 ####[facility] [address] [place], [address] RDW SD 53.7 fl High 35.1-43.9 [facility] Comment on above: Performed By: #### L 506.1000, L500.4050, L501.6710, L501.9520, L100.0100, L101.9900 ####[facility] [address] [place], [place], [id number] WBC (Bld) [#/Vol] 6.8 10*3/uL Normal 4.4-11.0 [facility] Comment on above: Performed By: #### L 506.1000, L500.4050, L501.6710, L501.9520, L100.0100, L101.9900 ####[facility] [address] [place], [place], [id number] CRPon 09-01-2024 C-REACTIVE PROT 7.31 mg/L High 0.0-3.0 [facility] Comment on above: Result Comment: C-Re active Protein (CRP) provides useful information for thediagnosis, therapy and monitoring of inflammatory processesand associated diseases. For the evaluation of Relative Riskfor Cardiovascular Disease, a High Sensitivity CRP (HSCRP)should be ordered. Performed By: #### L 506.1000, L500.4050, L501.6710, L501.9520, L100.0100, L101.9900 ####[facility] [address] [place], [place], [id number] Carbon dioxide measurementOr dered By: Radha Fish on 09-01-2024 CO2 [Moles/Vol] 26.0 mmol/L 21.0-32.0 [facility] Chloride measurementOrdered By: Radha Fish on 09-01-2024 Chloride [Moles/Vol] 99 mmol/L 98-107 [facility] Comprehensive Metabolic Prof ilon 09-01-2024 Albumin [Mass/Vol] 3.5 g/dL Normal 3.2-5.0 [facility] Comment on above: Performed By: #### L 506.1000, L500.4050, L501.6710, L501.9520, L100.0100, L101.9900 ####[facility] [address] [place], [address] Albumin/Globulin [Mass ratio] 0.9 {ratio} Normal 0.9-2.4 [facility] Comment on above: Performed By: #### L 506.1000, L500.4050, L501.6710, L501.9520, L100.0100, L101.9900 ####[facility] [address] [place], [address] ALK P 93 U/L Normal 45-117 [facility] Comment on above: Performed By: #### L 506.1000, L500.4050, L501.6710, L501.9520, L100.0100, L101.9900 ####[facility] [address] [place], [address] ALT [Catalytic activity/Vol] 30 U/L Normal 13-56 [facility] Comment on above: Performed By: #### L 506.1000, L500.4050, L501.6710, L501.9520, L100.0100, L101.9900 ####[facility] [address] [place], [address] AST [Catalytic activity/Vol] 26 U/L Normal 15-37 [facility] Comment on above: Performed By: #### L 506.1000, L500.4050, L501.6710, L501.9520, L100.0100, L101.9900 ####[facility] [address] [place], [address] Bilirubin [Mass/Vol] 1.20 mg/dL High 0.20-1.00 [facility] Comment on above: Result Comment: For patients on eltrombopag therapy, use of Dimension [place] TBIL is not recommended. Performed By: #### L 506.1000, L500.4050, L501.6710, L501.9520, L100.0100, L101.9900 ####[facility] [address] [place], [address] BUN/CRE 18.1 RATIO Normal 10-20 [facility] Comment on above: Performed By: #### L 506.1000, L500.4050, L501.6710, L501.9520, L100.0100, L101.9900 ####[facility] [address] [place], [address] CA,Total 9.6 mg/dL Normal 8.5-10.1 [facility] Comment on above: Performed By: #### L 506.1000, L500.4050, L501.6710, L501.9520, L100.0100, L101.9900 ####[facility] [address] [place], [address] Chloride [Moles/Vol] 99 mmol/L Normal 98-107 [facility] Comment on above: Performed By: #### L 506.1000, L500.4050, L501.6710, L501.9520, L100.0100, L101.9900 ####[facility] [address] [place], [address] CO2 [Moles/Vol] 26.0 mmol/L Normal 21.0-32.0 [facility] Comment on above: Performed By: #### L 506.1000, L500.4050, L501.6710, L501.9520, L100.0100, L101.9900 ####[facility] [address] [place], [address] Creatinine [Mass/Vol] 1.27 mg/dL High 0.55-1.02 [facility] Comment on above: Result Comment: The validity of the calculated GFR GFRAA in patients over70 years has not been determined. Clinical correlation isessential. Performed By: #### L 506.1000, L500.4050, L501.6710, L501.9520, L100.0100, L101.9900 ####[facility] [address] [place], [address] EST GFR - AA 51 mL/min Low >60 [facility] Comment on above: Result Comment: Afri can Colombian GFR Calc Performed By: #### L 506.1000, L500.4050, L501.6710, L501.9520, L100.0100, L101.9900 ####[facility] [address] [place], [address] GAP 7 Normal 5-15 [facility] Comment on above: Performed By: #### L 506.1000, L500.4050, L501.6710, L501.9520, L100.0100, L101.9900 ####[facility] [address] [place], [address] GFR/1.73 sq M.predicted among non-blacks MDRD (S/P/Bld) [Vol rate/Area] 42 mL/min/{1.73_m2} Low >60 [facility] Comment on above: Result Comment: Non- GFR Calc Performed By: #### L 506.1000, L500.4050, L501.6710, L501.9520, L100.0100, L101.9900 ####[facility] [address] [place], [address] Globulin (S) [Mass/Vol] 3.9 g/dL Normal 2.2-4.2 [facility] Comment on above: Performed By: #### L 506.1000, L500.4050, L501.6710, L501.9520, L100.0100, L101.9900 ####[facility] [address] [place], [address] Glucose [Mass/Vol] 90 mg/dL Normal 74-106 [facility] Comment on above: Performed By: #### L 506.1000, L500.4050, L501.6710, L501.9520, L100.0100, L101.9900 ####[facility] [address] [place], [address] Potassium [Moles/Vol] 5.0 mmol/L Normal 3.5-5.1 [facility] Comment on above: Performed By: #### L 506.1000, L500.4050, L501.6710, L501.9520, L100.0100, L101.9900 ####[facility] [address] [place], [address] Sodium [Moles/Vol] 132 mmol/L Low 136-145 [facility] Comment on above: Performed By: #### L 506.1000, L500.4050, L501.6710, L501.9520, L100.0100, L101.9900 ####[facility] [address] [place], [address] T PROT 7.4 g/dL Normal 6.4-8.2 [facility] Comment on above: Performed By: #### L 506.1000, L500.4050, L501.6710, L501.9520, L100.0100, L101.9900 ####[facility] [address] [place], [address] Urea nitrogen [Mass/Vol] 23 mg/dL High 7-18 [facility] Comment on above: Performed By: #### L 506.1000, L500.4050, L501.6710, L501.9520, L100.0100, L101.9900 ####[facility] [address] [place], [address] Eosinophil percentageOrdered By: Radha Fish on 09-01-2024 Eosinophils/100 WBC (Bld) 3.4 % 0-5 [facility] Erythrocyte Sed Rateon 09-01 SED RATE 12 mm/hr Normal 0-30 [facility] Comment on above: Performed By: #### L 506.1000, L500.4050, L501.6710, L501.9520, L100.0100, L101.9900 ####[facility] [address] [place], [address] Erythrocyte distribution wid th ratioOrdered By: Radha Fish on 09-01-2024 Erythrocyte distribution width (RBC) [Ratio] 14.5 % 11.6-14.6 [facility] Erythrocyte distribution wid th standard deviationOrdered By: Radha Fish on 09-01-2024 Erythrocyte distribution width (RBC) [Entitic vol] 53.7 fL High 35.1-43.9 [facility] Erythrocyte sedimentation ra teOrdered By: Radha Fish on 09-01-2024 ESR (Bld) [Velocity] 12 mm/h 0-30 [facility] Estimated glomerular filtrat ion rate (GFR) AmericanOrdered By: Radha Fish on 09-01-2024 Estimated GFR (MDRD) Amer 51 mL/min Low >60 [facility] Comment on above: GFR Calc Glomerular filtration rate ( GFR) estimationOrdered By: Radha Fish on 09-01-2024 Estimated GFR (MDRD) Non-Af Amer 42 mL/min Low >60 [facility] Comment on above: Non- GFR Calc Glucose measurementOrdered B y: Radha Fish on 09-01-2024 Glucose [Mass/Vol] 90 mg/dL 74-106 [facility] Hematocrit Auto (Bld) [Volum e fraction]Ordered By: Radha Fish on 09-01-2024 Hematocrit (Bld) [Volume fraction] 41.8 % 37-47 [facility] Hemoglobin measurementOrdere d By: Radha Fish on 09-01-2024 Hemoglobin (Bld) [Mass/Vol] 13.5 g/dL 12.0-15.0 [facility] Immature granulocytes/100 WB C Auto (Bld)Ordered By: Radha Fish on 09-01-2024 Immature granulocytes/100 WBC (Bld) 0.300 % 0.0-0.9 [facility] Comment on above: IG% - Immature Granu locytes (promyelocytes, myelocytes and metamyelocytes) > 1% indicates that a LEFT SHIFT is Present. Internal Medicine Office Vis iton 09-01-2024 Internal Medicine Office Visit Normal [facility] Laboratory - Chemistry and C hemistry - challengeOrdered By: Radha Fish on 09-01-2024 AST [Catalytic activity/Vol] 26 U/L 15-37 [facility] Lymphocytes Auto (Unsp spec) [#/Vol]Ordered By: Radha Fish on 09-01-2024 Lymphocytes (Bld) [#/Vol] 1.02 10*3/uL 0.83-4.51 [facility] Lymphocytes/100 WBC Auto (Un sp spec)Ordered By: Radha Fish on 09-01-2024 Lymphocytes/100 WBC (Bld) 15.1 % Low 19-41 [facility] MCV (mean corpuscular volume ) determinationOrdered By: Radha Fish on 09-01-2024 MCV (RBC) [Entitic vol] 101.5 fL High 81-99 [facility] Mean corpuscular hemoglobin (MCH) determinationOrdered By: Radha Fish on 09-01-2024 MCH (RBC) [Entitic mass] 32.8 pg High 27.0-32.0 [facility] Mean corpuscular hemoglobin concentration (MCHC) determinationOrdered By: Radha Fish on 09-01-2024 MCHC (RBC) [Mass/Vol] 32.3 g/dL 32-36 [facility] Mean platelet volume determi nationOrdered By: Radha Fish on 09-01-2024 Platelet mean volume (Bld) [Entitic vol] 8.7 fL 6.2-12.0 [facility] Monocyte percentageOrdered B y: Radha Fish on 09-01-2024 Monocytes/100 WBC (Bld) 12.4 % High 0-10 [facility] Neutrophil percentageOrdered By: Radha Fish on 09-01-2024 Neutrophils/100 WBC (Bld) 68.1 % 47-70 [facility] Nucleated red blood cell per centageOrdered By: Radha Fish on 09-01-2024 Nucleated RBC/100 WBC (Bld) [Ratio] 0 % 0-5 [facility] Platelet countOrdered By: Elina Fish on 09-01-2024 Platelets (Bld) [#/Vol] 202 10*3/uL 150-450 [facility] Potassium measurementOrdered By: Radha Fish on 09-01-2024 Potassium [Moles/Vol] 5.0 mmol/L 3.5-5.1 [facility] RBC Auto (Bld) [#/Vol]Ordere d By: Radha Fish on 09-01-2024 RBC (Bld) [#/Vol] 4.12 10*6/uL Low 4.2-5.4 [facility] Serum anion gap measurementO rdered By: Radha Fish on 09-01-2024 Anion gap [Moles/Vol] 7 mmol/L 5-15 [facility] Serum globulin measurementOr dered By: Radha Fish on 09-01-2024 Globulin (S) [Mass/Vol] 3.9 g/dL 2.2-4.2 [facility] Serum or plasma alanine henderson otransferase (ALT) measurementOrdered By: Radha Fish on 09-01-2024 ALT [Catalytic activity/Vol] 30 U/L 13-56 [facility] Serum or plasma albumin caleb urement (mass/volume)Ordered By: Radha Fish on 09-01-2024 Albumin [Mass/Vol] 3.5 g/dL 3.2-5.0 [facility] Serum or plasma alkaline lexus sphatase measurementOrdered By: Radha Fish on 09-01-2024 ALP [Catalytic activity/Vol] 93 U/L 45-117 [facility] Serum or plasma calcium caleb urement (mass/volume)Ordered By: Radha Fish on 09-01-2024 Calcium [Mass/Vol] 9.6 mg/dL 8.5-10.1 [facility] Serum or plasma creatinine m easurement (mass/volume)Ordered By: Radha Fish on 09-01-2024 Creatinine [Mass/Vol] 1.27 mg/dL High 0.55-1.02 [facility] Comment on above: The validity of the calculated GFR & GFRAA in patients over 70 years has not been determined. Clinical correlation is essential. Serum or plasma urea nitroge n measurement (mass/volume)Ordered By: Radha Fish on 09-01-2024 Urea nitrogen [Mass/Vol] 23 mg/dL High 7-18 [facility] Sodium levelOrdered By: Hugh beckettreed Polina on 09-01-2024 Sodium [Moles/Vol] 132 mmol/L Low 136-145 [facility] TSH QnOrdered By: Radha Fish on 09-01-2024 Thyroid Stimulating Hormone (TSH) 1.010 uIU/mL 0.358-3.740 [facility] Thyroid Stim Hormone (TSH)on 09-01-2024 TSH 1.010 uIU/mL Normal 0.358-3.740 [facility] Comment on above: Performed By: #### L 506.1000, L500.4050, L501.6710, L501.9520, L100.0100, L101.9900 ####[facility] [address] [place], [address] Total proteinOrdered By: Sid lucylisa Fish on 09-01-2024 Protein [Mass/Vol] 7.4 g/dL 6.4-8.2 [facility] Vitamin D,25 Hydroxyon 09-01 Vitamin D 25-OH 58.4 ng/mL Normal [facility] Comment on above: Result Comment: [place] min D 25(OH) Status Range Deficiency <20 ng/mL (50nmol/L) Insufficiency 20 - 30 ng/mL (50 - 75 nmol/L) Sufficiency 30 - 100 ng/mL (75 - 250 nmol/L) Toxicity >100 ng/mL (>250 nmol/L) Performed By: #### L 506.1000, L500.4050, L501.6710, L501.9520, L100.0100, L101.9900 ####[facility] [address] [place], [address] White blood cell (WBC) count Ordered By: Radha Fish on 09-01-2024 WBC (Bld) [#/Vol] 6.8 10*3/uL 4.4-11.0 [facility] International normalized rat io (INR) calculationOrdered By: Eun Lloyd on 08-15-2024 INR Coag (Bld) [Relative time] 2.7 {INR} [facility] Prothrombin Time w/INRon INR Coag (PPP) [Relative time] 2.7 {INR} Normal [facility] Comment on above: Performed By: #### L 300.3900 ####[facility] [address] [place], [address] PT Coag (PPP) [Time] 29.3 s High 11.7-14.9 [facility] Comment on above: Performed By: #### L 300.3900 ####[facility] [id number] [place], [address] Prothrombin timeOrdered By: Eun Lloyd on 08-15-2024 PT Coag (PPP) [Time] 29.3 s High 11.7-14.9 [facility] International normalized rat io (INR) calculationOrdered By: Eun Lloyd on 08-01-2024 INR Coag (Bld) [Relative time] 2.3 {INR} [facility] Prothrombin Time w/INRon INR Coag (PPP) [Relative time] 2.3 {INR} Normal [facility] Comment on above: Performed By: #### L 300.3900 ####[facility] [address] [place], [address] PT Coag (PPP) [Time] 25.8 s High 11.7-14.9 [facility] Comment on above: Performed By: #### L 300.3900 ####[facility] [address] [place], [address] Prothrombin timeOrdered By: Eun Lloyd on 08-01-2024 PT Coag (PPP) [Time] 25.8 s High 11.7-14.9 [facility] Prothrombin Time w/INRon INR Coag (PPP) [Relative time] 3.0 {INR} Normal [facility] Comment on above: Performed By: #### L 300.3900 ####[facility] [address], [address] PT Coag (PPP) [Time] 31.2 s High 11.7-14.9 [facility] Comment on above: Performed By: #### L 300.3900 ####[facility] [address] [place], [address] Prothrombin Time w/INRon INR Coag (PPP) [Relative time] 2.7 {INR} Normal [facility] Comment on above: Performed By: #### L 300.3900 ####[facility] [address] [place], [address] PT Coag (PPP) [Time] 28.1 s High 11.7-14.9 [facility] Comment on above: Performed By: #### L 300.3900 ####[facility] [address] [place], [address] Prothrombin Time w/INRon INR Coag (PPP) [Relative time] 3.7 {INR} Normal [facility] Comment on above: Performed By: #### L 300.3900 ####[facility] [address] [place], [address] PT Coag (PPP) [Time] 36.5 s High 11.7-14.9 [facility] Comment on above: Performed By: #### L 958.6120 ####[facility] [address] [place], [address] Laboratory - CoagulationOrde red By: Eun Lloyd on 11-16-2023 INR Coag (Bld) [Relative time] 2.6 {INR} [facility] PT Coag (PPP) [Time] 27.8 s 11.7-14.9 [facility] Laboratory - CoagulationOrde red By: Eun Lloyd on 10-19-2023 INR Coag (Bld) [Relative time] 2.3 {INR} [facility] PT Coag (PPP) [Time] 25.1 s 11.7-14.9 [facility] Basophil percentageOrdered B y: Eun Lloyd on 09-21-2023 Chloride [Moles/Vol] 109 mmol/L 98-107 [facility] Glucose [Mass/Vol] 76 mg/dL 74-106 [facility] Potassium [Moles/Vol] 4.3 mmol/L 3.5-5.1 [facility] Sodium [Moles/Vol] 141 mmol/L 136-145 [facility] Laboratory - Chemistry and C hemistry - challengeOrdered By: Eun Lloyd on 09-21-2023 CO2 [Moles/Vol] 28.0 mmol/L 21.0-32.0 [facility] Urea nitrogen/Creatinine [Mass ratio] 14.7 mg/mg 10-20 [facility] Laboratory - CoagulationOrde red By: Eun Lloyd on 09-21-2023 INR Coag (Bld) [Relative time] 3.0 {INR} [facility] PT Coag (PPP) [Time] 31.6 s 11.7-14.9 [facility] No Panel InformationOrdered By: Eun Lloyd on 09-21-2023 Estimated GFR (MDRD) Amer 57 mL/min >60 [facility] Comment on above: GFR Calc Estimated GFR (MDRD) Non-Af Amer 47 mL/min >60 [facility] Comment on above: Non- GFR Calc Serum or plasma calcium caleb urement (mass/volume)Ordered By: Eun Lloyd on 09-21-2023 Calcium [Mass/Vol] 9.5 mg/dL 8.5-10.1 [facility] Serum or plasma creatinine m easurement (mass/volume)Ordered By: Eun Lloyd on 09-21-2023 Creatinine [Mass/Vol] 1.16 mg/dL 0.55-1.02 [facility] Comment on above: The validity of the calculated GFR & GFRAA in patients over 70 years has not been determined. Clinical correlation is essential. Serum or plasma urea nitroge n measurement (mass/volume)Ordered By: Eun Lloyd on 09-21-2023 Urea nitrogen [Mass/Vol] 17 mg/dL 7-18 [facility] Thin prep Papanicolaou smear with manual screeningOrdered By: Eun Lloyd on 09-21-2023 Thin prep Papanicolaou smear with manual screening 4 5-15 [facility] Basophil percentageOrdered B y: Eun Lloyd on 08-31-2023 Chloride [Moles/Vol] 112 mmol/L 98-107 [facility] Glucose [Mass/Vol] 79 mg/dL 74-106 [facility] Potassium [Moles/Vol] 4.8 mmol/L 3.5-5.1 [facility] Sodium [Moles/Vol] 142 mmol/L 136-145 [facility] International normalized rat io (INR) calculationOrdered By: Eun Lloyd on 08-31-2023 INR Coag (PPP) [Relative time] 3.0 {INR} [facility] Laboratory - Chemistry and C hemistry - challengeOrdered By: Eun Lloyd on 08-31-2023 CO2 [Moles/Vol] 25.0 mmol/L 21.0-32.0 [facility] Urea nitrogen/Creatinine [Mass ratio] 18.0 mg/mg 10-20 [facility] Laboratory - CoagulationOrde red By: Eun Lloyd on 08-31-2023 PT Coag (PPP) [Time] 31.3 s 11.7-14.9 [facility] No Panel InformationOrdered By: Eun Lloyd on 08-31-2023 Estimated GFR (MDRD) Amer 60 mL/min >60 [facility] Comment on above: GFR Calc Estimated GFR (MDRD) Non-Af Amer 49 mL/min >60 [facility] Comment on above: Non- GFR Calc Serum or plasma calcium caleb urement (mass/volume)Ordered By: Eun Lloyd on 08-31-2023 Calcium [Mass/Vol] 9.0 mg/dL 8.5-10.1 [facility] Serum or plasma creatinine m easurement (mass/volume)Ordered By: Eun Lloyd on 08-31-2023 Creatinine [Mass/Vol] 1.11 mg/dL 0.55-1.02 [facility] Comment on above: The validity of the calculated GFR & GFRAA in patients over 70 years has not been determined. Clinical correlation is essential. Serum or plasma urea nitroge n measurement (mass/volume)Ordered By: Eun Lloyd on 08-31-2023 Urea nitrogen [Mass/Vol] 20 mg/dL 7-18 [facility] Thin prep Papanicolaou smear with manual screeningOrdered By: Eun Lloyd on 08-31-2023 Thin prep Papanicolaou smear with manual screening 5 5-15 [facility] No Panel InformationOrdered By: Radha Fish on 08-14-2023 Thyroid Stimulating Hormone (TSH) 2.42 uIU/mL 0.358-3.74 [facility] Basophil percentageOrdered B y: Eun Lloyd on 07-15-2023 Bilirubin [Mass/Vol] 0.90 mg/dL 0.20-1.00 [facility] Comment on above: For patients on eltr ombopag therapy, use of Dimension [place] TBIL is not recommended. Cholesterol [Mass/Vol] 184 mg/dL <200 [facility] Comment on above: <200 mg/dL Desirable 200-240 mg/dL Borderline >240 mg/dL High Risk Protein [Mass/Vol] 7.6 g/dL 6.4-8.2 [facility] Triglyceride [Mass/Vol] 149 mg/dL <199 [facility] Comment on above: The drugs N-Acetylcy steine and Metamizole may falsely depress this assay.Serum Triglycerides Reference Interval Normal <150 mg/dL Borderline high 150 - 199 mg/dL High 200 - 499 mg/dL Very High > or = 500 mg/dL Basophil percentageOrdered B y: Radha Fish on 07-15-2023 Chloride [Moles/Vol] 105 mmol/L 98-107 [facility] Glucose [Mass/Vol] 91 mg/dL 74-106 [facility] Potassium [Moles/Vol] 4.5 mmol/L 3.5-5.1 [facility] Sodium [Moles/Vol] 140 mmol/L 136-145 [facility] Direct bilirubinOrdered By: Eun Lloyd on 07-15-2023 Bilirubin.direct [Mass/Vol] 0.24 mg/dL 0.00-0.30 [facility] Laboratory - Chemistry and C hemistry - challengeOrdered By: Eun Lloyd on 07-15-2023 ALP [Catalytic activity/Vol] 76 U/L 45-117 [facility] ALT [Catalytic activity/Vol] 32 U/L 13- [facility] Globulin (S) [Mass/Vol] 3.9 g/dL 2.2-4.2 [facility] Laboratory - Chemistry and C hemistry - challengeOrdered By: Radha Fish on 07-15-2023 CO2 [Moles/Vol] 31.0 mmol/L 21.0-32.0 [facility] Urea nitrogen/Creatinine [Mass ratio] 17.2 mg/mg 10-20 [facility] Laboratory - CoagulationOrde red By: Eun Lloyd on 07-15-2023 PT Coag (PPP) [Time] 28.7 s 11.7-14.9 [facility] No Panel InformationOrdered By: Radha Fish on 07-15-2023 Estimated GFR (MDRD) Amer 54 mL/min >60 [facility] Comment on above: GFR Calc Estimated GFR (MDRD) Non-Af Amer 44 mL/min >60 [facility] Comment on above: Non- GFR Calc Thyroid Stimulating Hormone (TSH) 7.35 uIU/mL 0.358-3.74 [facility] Serum or plasma albumin caleb urement (mass/volume)Ordered By: Eun Lloyd on 07-15-2023 Albumin [Mass/Vol] 3.7 g/dL 3.2-5.0 [facility] Serum or plasma calcium caleb urement (mass/volume)Ordered By: Radha Fish on 07-15-2023 Calcium [Mass/Vol] 9.2 mg/dL 8.5-10.1 [facility] Serum or plasma cholesterol in HDL measurement (mass/volume)Ordered By: Eun Lloyd on 07-15-2023 Cholesterol in HDL [Mass/Vol] 85 mg/dL >40 [facility] Comment on above: The drugs N-Acetylcy steine and Metamizole may falsely depress this assay. Reference Range HDL <40 mg/dL Low HDL Cholesterol HDL >or= 60 mg/dL High HDL Cholesterol Serum or plasma cholesterol in VLDL measurement (mass/volume)Ordered By: Eun Lloyd on 07-15-2023 Cholesterol in VLDL [Mass/Vol] 30 mg/dL 5-40 [facility] Serum or plasma creatinine m easurement (mass/volume)Ordered By: Radha Fish on 07-15-2023 Creatinine [Mass/Vol] 1.22 mg/dL 0.55-1.02 [facility] Comment on above: The validity of the calculated GFR & GFRAA in patients over 70 years has not been determined. Clinical correlation is essential. Serum or plasma low density lipoprotein (LDL) cholesterol measurement (mass/volume)Ordered By: Eun Lloyd on 07-15-2023 Cholesterol in LDL [Mass/Vol] 69 mg/dL 0-130 [facility] Serum or plasma urea nitroge n measurement (mass/volume)Ordered By: Radha Fish on 07-15-2023 Urea nitrogen [Mass/Vol] 21 mg/dL 7-18 [facility] Thin prep Papanicolaou smear with manual screeningOrdered By: Eun Lloyd on 07-15-2023 Thin prep Papanicolaou smear with manual screening 29 U/L 15-37 [facility] Thin prep Papanicolaou smear with manual screeningOrdered By: Radha Fish on 07-15-2023 Thin prep Papanicolaou smear with manual screening 4 12-15 [facility] Whole blood international no rmalized ratio (INR)Ordered By: Eun Lloyd on 07-15-2023 INR Coag (Bld) [Relative time] 2.7 {INR} [facility] Laboratory - CoagulationOrde red By: Eun Lloyd on 06-18-2023 PT Coag (PPP) [Time] 32.7 s 11.7-14.9 [facility] Whole blood international no rmalized ratio (INR)Ordered By: Eun Lloyd on 06-18-2023 INR Coag (Bld) [Relative time] 3.1 {INR} [facility] INR in Blood by Coagulation assayOrdered By: Eun Lloyd on 05-29-2023 INR Coag (Bld) [Relative time] 3.2 {INR} [facility] Laboratory - CoagulationOrde red By: Eun Lloyd on 05-29-2023 PT Coag (PPP) [Time] 32.8 s 11.7-14.9 [facility] INR in Blood by Coagulation assayOrdered By: Radha Fish on 04-17-2023 INR Coag (Bld) [Relative time] 2.6 {INR} [facility] Laboratory - CoagulationOrde red By: Radha Fish on 04-17-2023 PT Coag (PPP) [Time] 27.8 s 11.7-14.9 [facility] No Panel InformationOrdered By: Radha Fish on 04-17-2023 Vitamin D 25-Hydroxy 54.8 ng/mL [facility] Comment on above: Vitamin D 25(OH) Sta tus Range Deficiency <20 ng/mL (50nmol/L) Insufficiency 20 - 30 ng/mL (50 - 75 nmol/L) Sufficiency 30 - 100 ng/mL (75 - 250 nmol/L) Toxicity >100 ng/mL (>250 nmol/L) INR in Blood by Coagulation assayOrdered By: Eun Lloyd on 03-18-2023 INR Coag (Bld) [Relative time] 3.1 {INR} [facility] Laboratory - CoagulationOrde red By: Eun Lloyd on 03-18-2023 PT Coag (PPP) [Time] 32.7 s 11.7-14.9 [facility] INR in Blood by Coagulation assayOrdered By: Eun Lloyd on 02-12-2023 INR Coag (Bld) [Relative time] 2.9 {INR} [facility] Laboratory - CoagulationOrde red By: Eun Lloyd on 02-12-2023 PT Coag (PPP) [Time] 30.6 s 11.7-14.9 [facility] Absolute lymphocyte countOrd ered By: Elinadivya Fish on 01-23-2023 Lymphocytes Auto (Unsp spec) [#/Vol] 0.76 10*3/uL 0.83-4.51 [facility] Basophil percentageOrdered B y: Radha Fish on 01-23-2023 Basophils/100 WBC (Bld) 1.4 % 0-1 [facility] Chloride [Moles/Vol] 106 mmol/L 98-107 [facility] Eosinophils/100 WBC (Bld) 12.8 % 0-5 [facility] Glucose [Mass/Vol] 96 mg/dL 74-106 [facility] Neutrophils (Bld) [#/Vol] 3.9 10*3/uL 2.0-7.7 [facility] Neutrophils/100 WBC (Bld) 61.8 % 47-70 [facility] Potassium [Moles/Vol] 4.4 mmol/L 3.5-5.1 [facility] Sodium [Moles/Vol] 140 mmol/L 136-145 [facility] WBC (Bld) [#/Vol] 6.2 10*3/uL 4.4-11.0 [facility] Basophil percentageOrdered B y: Eun Lloyd on 01-23-2023 Bilirubin [Mass/Vol] 1.00 mg/dL 0.20-1.00 [facility] Comment on above: For patients on eltr ombopag therapy, use of Dimension [place] TBIL is not recommended. Cholesterol [Mass/Vol] 198 mg/dL <200 [facility] Comment on above: <200 mg/dL Desirable 200-240 mg/dL Borderline >240 mg/dL High Risk Protein [Mass/Vol] 7.5 g/dL 6.4-8.2 [facility] Triglyceride [Mass/Vol] 90 mg/dL <199 [facility] Comment on above: The drugs N-Acetylcy steine and Metamizole may falsely depress this assay.Serum Triglycerides Reference Interval Normal <150 mg/dL Borderline high 150 - 199 mg/dL High 200 - 499 mg/dL Very High > or = 500 mg/dL Blood erythrocytes count (nu mber/volume)Ordered By: Radha Fish on 01-23-2023 RBC (Bld) [#/Vol] 4.35 10*6/uL 4.2-5.4 [facility] Blood hemoglobin measurement (mass/volume)Ordered By: Radha Fish on 01-23-2023 Hemoglobin (Bld) [Mass/Vol] 14.7 g/dL 12.0-15.0 [facility] Blood lymphocytes/100 leukoc ytesOrdered By: Radha Fish on 01-23-2023 Lymphocytes/100 WBC (Bld) 12.2 % 19-41 [facility] Blood monocytes/100 leukocyt esOrdered By: Radha Fish on 01-23-2023 Monocytes/100 WBC (Bld) 11.5 % 0-10 [facility] Blood platelet mean volumeOr dered By: Radha Fish on 01-23-2023 Platelet mean volume (Bld) [Entitic vol] 8.7 fL 6.2-12.0 [facility] Determination of erythrocyte mean corpuscular volume (MCV)Ordered By: Radha Fish on 01-23-2023 MCV (RBC) [Entitic vol] 104.4 fL 81-99 [facility] Direct bilirubinOrdered By: Eun Lloyd on 01-23-2023 Bilirubin.direct [Mass/Vol] 0.25 mg/dL 0.00-0.30 [facility] Hematocrit Auto (Bld) [Volum e fraction]Ordered By: Radha Fish on 01-23-2023 Hematocrit (Bld) [Volume fraction] 45.4 % 37-47 [facility] INR in Blood by Coagulation assayOrdered By: Eun Lloyd on 01-23-2023 INR Coag (Bld) [Relative time] 2.4 {INR} [facility] Laboratory - Chemistry and C hemistry - challengeOrdered By: Eun Lloyd on 01-23-2023 ALP [Catalytic activity/Vol] 80 U/L 45-117 [facility] ALT [Catalytic activity/Vol] 32 U/L 13-56 [facility] Globulin (S) [Mass/Vol] 3.8 g/dL 2.2-4.2 [facility] Laboratory - Chemistry and C hemistry - challengeOrdered By: Radha Fish on 01-23-2023 CO2 [Moles/Vol] 28.0 mmol/L 21.0-32.0 [facility] Urea nitrogen/Creatinine [Mass ratio] 16.7 mg/mg 10-20 [facility] Laboratory - CoagulationOrde red By: Eun Lloyd on 01-23-2023 PT Coag (PPP) [Time] 26.6 s 11.7-14.9 [facility] Laboratory - Hematology and Cell countsOrdered By: Radha Fish on 01-23-2023 Erythrocyte distribution width (RBC) [Entitic vol] 58.6 fL 35.1-43.9 [facility] Erythrocyte distribution width (RBC) [Ratio] 14.9 % 11.6-14.6 [facility] Immature granulocytes/100 WBC (Bld) 0.300 % 0.0-0.9 [facility] Comment on above: IG% - Immature Granu locytes (promyelocytes, myelocytes and metamyelocytes) > 1% indicates that a LEFT SHIFT is Present. MCH (RBC) [Entitic mass] 33.8 pg 27.0-32.0 [facility] Nucleated RBC/100 WBC (Bld) [Ratio] 0 % 0-5 [facility] MCHC Auto (RBC) [Mass/Vol]Or dered By: Radha Fish on 01-23-2023 MCHC (RBC) [Mass/Vol] 32.4 g/dL 32-36 [facility] No Panel InformationOrdered By: Radha Fish on 01-23-2023 Estimated GFR (MDRD) Amer 58 mL/min >60 [facility] Comment on above: GFR Calc Estimated GFR (MDRD) Non-Af Amer 48 mL/min >60 [facility] Comment on above: Non- GFR Calc Thyroid Stimulating Hormone (TSH) 7.89 uIU/mL 0.358-3.74 [facility] Platelets bldOrdered By: Sid Fish on 01-23-2023 Platelets (Bld) [#/Vol] 253 10*3/uL 150-450 [facility] Serum or plasma albumin caleb urement (mass/volume)Ordered By: Eun Lloyd on 01-23-2023 Albumin [Mass/Vol] 3.7 g/dL 3.2-5.0 [facility] Serum or plasma calcium caleb urement (mass/volume)Ordered By: Radha Fish on 01-23-2023 Calcium [Mass/Vol] 9.2 mg/dL 8.5-10.1 [facility] Serum or plasma cholesterol in HDL measurement (mass/volume)Ordered By: Eun Lloyd on 01-23-2023 Cholesterol in HDL [Mass/Vol] 94 mg/dL >40 [facility] Comment on above: The drugs N-Acetylcy steine and Metamizole may falsely depress this assay. Reference Range HDL <40 mg/dL Low HDL Cholesterol HDL >or= 60 mg/dL High HDL Cholesterol Serum or plasma cholesterol in VLDL measurement (mass/volume)Ordered By: Eun Lloyd on 01-23-2023 Cholesterol in VLDL [Mass/Vol] 18 mg/dL 5-40 [facility] Serum or plasma creatinine m easurement (mass/volume)Ordered By: Radha Fish on 01-23-2023 Creatinine [Mass/Vol] 1.14 mg/dL 0.55-1.02 [facility] Comment on above: The validity of the calculated GFR & GFRAA in patients over 70 years has not been determined. Clinical correlation is essential. Serum or plasma low density lipoprotein (LDL) cholesterol measurement (mass/volume)Ordered By: Eun Lloyd on 01-23-2023 Cholesterol in LDL [Mass/Vol] 86 mg/dL 0-130 [facility] Serum or plasma urea nitroge n measurement (mass/volume)Ordered By: Radha Fish on 01-23-2023 Urea nitrogen [Mass/Vol] 19 mg/dL 7-18 [facility] Thin prep Papanicolaou smear with manual screeningOrdered By: Eun Lloyd on 01-23-2023 Thin prep Papanicolaou smear with manual screening 33 U/L 15-37 [facility] Thin prep Papanicolaou smear with manual screeningOrdered By: Radha Fsih on 01-23-2023 Thin prep Papanicolaou smear with manual screening 6 5-15 [facility] INR in Blood by Coagulation assayOrdered By: Eun Lloyd on 01-01-2023 INR Coag (Bld) [Relative time] 3.3 {INR} [facility] Laboratory - CoagulationOrde red By: Eun Lloyd on 01-01-2023 PT Coag (PPP) [Time] 33.9 s 11.7-14.9 [facility] INR in Blood by Coagulation assayOrdered By: Eun Lloyd on 12-04-2022 INR Coag (Bld) [Relative time] 2.4 {INR} [facility] Laboratory - CoagulationOrde red By: Eun Lloyd on 12-04-2022 PT Coag (PPP) [Time] 26.7 s 11.7-14.9 [facility] INR in Blood by Coagulation assayOrdered By: Dr. Babin on 10-31-2022 INR Coag (Bld) [Relative time] 3.1 {INR} [facility] Laboratory - CoagulationOrde red By: Dr. Babin on 10-31-2022 PT Coag (PPP) [Time] 31.4 s 11.7-14.9 [facility] INR in Blood by Coagulation assayOrdered By: Dr. Babin on 09-26-2022 INR Coag (Bld) [Relative time] 2.7 {INR} [facility] Laboratory - CoagulationOrde red By: Dr. Babin on 09-26-2022 PT Coag (PPP) [Time] 27.9 s 11.7-14.9 [facility] No Panel Informationon 02-16 -2023 Influenza Types A,B Rapid (Clinic) Negative [facility] POC SARS CoV-2 Antigen Negative [facility] Basophil percentageOrdered B y: Eun Lloyd on 08-21-2022 Bilirubin [Mass/Vol] 0.60 mg/dL 0.20-1.00 [facility] Comment on above: For patients on eltr ombopag therapy, use of Dimension [place] TBIL is not recommended. Cholesterol [Mass/Vol] 180 mg/dL <200 [facility] Comment on above: <200 mg/dL Desirable 200-240 mg/dL Borderline >240 mg/dL High Risk Protein [Mass/Vol] 7.2 g/dL 6.4-8.2 [facility] Triglyceride [Mass/Vol] 168 mg/dL <199 [facility] Comment on above: The drugs N-Acetylcy steine and Metamizole may falsely depress this assay.Serum Triglycerides Reference Interval Normal <150 mg/dL Borderline high 150 - 199 mg/dL High 200 - 499 mg/dL Very High > or = 500 mg/dL Direct bilirubinOrdered By: Eun Lloyd on 08-21-2022 Bilirubin.direct [Mass/Vol] 0.15 mg/dL 0.00-0.30 [facility] INR in Blood by Coagulation assayOrdered By: Eun Lloyd on 08-21-2022 INR Coag (Bld) [Relative time] 3.0 {INR} [facility] Laboratory - Chemistry and C hemistry - challengeOrdered By: Eun Lloyd on 08-21-2022 ALP [Catalytic activity/Vol] 74 U/L 45-117 [facility] ALT [Catalytic activity/Vol] 35 U/L 13-56 [facility] Globulin (S) [Mass/Vol] 3.6 g/dL 2.2-4.2 [facility] Laboratory - CoagulationOrde red By: Eun Lloyd on 08-21-2022 PT Coag (PPP) [Time] 30.7 s 11.7-14.9 [facility] Serum or plasma albumin caleb urement (mass/volume)Ordered By: Eun Lloyd on 08-21-2022 Albumin [Mass/Vol] 3.6 g/dL 3.2-5.0 [facility] Serum or plasma cholesterol in HDL measurement (mass/volume)Ordered By: Eun Lloyd on 08-21-2022 Cholesterol in HDL [Mass/Vol] 80 mg/dL >40 [facility] Comment on above: The drugs N-Acetylcy steine and Metamizole may falsely depress this assay. Reference Range HDL <40 mg/dL Low HDL Cholesterol HDL >or= 60 mg/dL High HDL Cholesterol Serum or plasma cholesterol in VLDL measurement (mass/volume)Ordered By: Eun Lloyd on 08-21-2022 Cholesterol in VLDL [Mass/Vol] 34 mg/dL 5-40 [facility] Serum or plasma low density lipoprotein (LDL) cholesterol measurement (mass/volume)Ordered By: Eun Lloyd on 08-21-2022 Cholesterol in LDL [Mass/Vol] 66 mg/dL 0-130 [facility] Thin prep Papanicolaou smear with manual screeningOrdered By: Eun Lloyd on 08-21-2022 Thin prep Papanicolaou smear with manual screening 30 U/L 15-37 [facility] Laboratory - CoagulationOrde red By: Dr. Babin on 07-15-2022 INR Coag (Bld) [Relative time] 3.3 {INR} [facility] Comment on above: Critical Value > 4.0 Whole blood prothrombin time Ordered By: Dr. Babin on 07-15-2022 PT Coag (Bld) [Time] 37.8 s 11.7-14.9 [facility] Basophil percentageOrdered B y: Eun Lloyd on 07-10-2022 Chloride [Moles/Vol] 106 mmol/L 98-107 [facility] Glucose [Mass/Vol] 94 mg/dL 74-106 [facility] Potassium [Moles/Vol] 4.6 mmol/L 3.5-5.1 [facility] Sodium [Moles/Vol] 139 mmol/L 136-145 [facility] WBC (Bld) [#/Vol] 6.4 10*3/uL 4.4-11.0 [facility] Blood erythrocytes count (nu mber/volume)Ordered By: Eun Lloyd on 07-10-2022 RBC (Bld) [#/Vol] 3.90 10*6/uL 4.2-5.4 [facility] Blood hemoglobin measurement (mass/volume)Ordered By: Eun Lloyd on 07-10-2022 Hemoglobin (Bld) [Mass/Vol] 13.5 g/dL 12.0-15.0 [facility] Blood platelet mean volumeOr dered By: Eun Lloyd on 07-10-2022 Platelet mean volume (Bld) [Entitic vol] 8.4 fL 6.2-12.0 [facility] Determination of erythrocyte mean corpuscular volume (MCV)Ordered By: Eun Lloyd on 07-10-2022 MCV (RBC) [Entitic vol] 106.2 fL 81-99 [facility] Hematocrit Auto (Bld) [Volum e fraction]Ordered By: Eun Lloyd on 07-10-2022 Hematocrit (Bld) [Volume fraction] 41.4 % 37-47 [facility] INR in Blood by Coagulation assayOrdered By: Eun Lloyd on 07-10-2022 INR Coag (Bld) [Relative time] 3.3 {INR} [facility] Laboratory - Chemistry and C hemistry - challengeOrdered By: Eun Lloyd on 07-10-2022 CO2 [Moles/Vol] 30.0 mmol/L 21.0-32.0 [facility] Magnesium [Mass/Vol] 2.6 mg/dL 1.6-2.6 [facility] Urea nitrogen/Creatinine [Mass ratio] 14.7 mg/mg 10-20 [facility] Laboratory - CoagulationOrde red By: Eun Lloyd on 07-10-2022 PT Coag (PPP) [Time] 33.1 s 11.7-14.9 [facility] Laboratory - Hematology and Cell countsOrdered By: Eun Lloyd on 07-10-2022 Erythrocyte distribution width (RBC) [Entitic vol] 56.5 fL 35.1-43.9 [facility] Erythrocyte distribution width (RBC) [Ratio] 14.4 % 11.6-14.6 [facility] MCH (RBC) [Entitic mass] 34.6 pg 27.0-32.0 [facility] MCHC Auto (RBC) [Mass/Vol]Or dered By: Eun Lloyd on 07-10-2022 MCHC (RBC) [Mass/Vol] 32.6 g/dL 32-36 [facility] No Panel InformationOrdered By: Eun Lloyd on 07-10-2022 Estimated GFR (MDRD) Amer 66 mL/min >60 [facility] Comment on above: GFR Calc Estimated GFR (MDRD) Non-Af Amer 55 mL/min >60 [facility] Comment on above: Non- GFR Calc Thyroid Stimulating Hormone (TSH) 3.38 uIU/mL 0.358-3.74 [facility] Platelets bldOrdered By: Ernesto Lloyd on 07-10-2022 Platelets (Bld) [#/Vol] 237 10*3/uL 150-450 [facility] Serum or plasma calcium caleb urement (mass/volume)Ordered By: Eun Lloyd on 07-10-2022 Calcium [Mass/Vol] 9.1 mg/dL 8.5-10.1 [facility] Serum or plasma creatinine m easurement (mass/volume)Ordered By: Eun Lloyd on 07-10-2022 Creatinine [Mass/Vol] 1.02 mg/dL 0.55-1.02 [facility] Comment on above: The validity of the calculated GFR & GFRAA in patients over 70 years has not been determined. Clinical correlation is essential. Serum or plasma urea nitroge n measurement (mass/volume)Ordered By: Eun Lloyd on 07-10-2022 Urea nitrogen [Mass/Vol] 15 mg/dL 7-18 [facility] Thin prep Papanicolaou smear with manual screeningOrdered By: Eun Lloyd on 07-10-2022 Thin prep Papanicolaou smear with manual screening 3 5-15 [facility] Absolute lymphocyte countOrd ered By: Britany Crandall on 06-13-2022 Lymphocytes Auto (Unsp spec) [#/Vol] 0.95 10*3/uL 0.83-4.51 [facility] Basophil percentageOrdered B y: Britany Crandall on 06-13-2022 Basophils/100 WBC (Bld) 1.1 % 0-1 [facility] Chloride [Moles/Vol] 105 mmol/L 98-107 [facility] Eosinophils/100 WBC (Bld) 9.0 % 0-5 [facility] Glucose [Mass/Vol] 66 mg/dL 74-106 [facility] Neutrophils (Bld) [#/Vol] 3.9 10*3/uL 2.0-7.7 [facility] Neutrophils/100 WBC (Bld) 61.8 % 47-70 [facility] Potassium [Moles/Vol] 4.8 mmol/L 3.5-5.1 [facility] Sodium [Moles/Vol] 140 mmol/L 136-145 [facility] WBC (Bld) [#/Vol] 6.4 10*3/uL 4.4-11.0 [facility] Blood erythrocytes count (nu mber/volume)Ordered By: Britany Crandall on 06-13-2022 RBC (Bld) [#/Vol] 3.68 10*6/uL 4.2-5.4 [facility] Blood hemoglobin measurement (mass/volume)Ordered By: Britany Crandall on 06-13-2022 Hemoglobin (Bld) [Mass/Vol] 12.3 g/dL 12.0-15.0 [facility] Blood lymphocytes/100 leukoc ytesOrdered By: Britany Crandall on 06-13-2022 Lymphocytes/100 WBC (Bld) 15.0 % 19-41 [facility] Blood monocytes/100 leukocyt esOrdered By: Britany Crandall on 06-13-2022 Monocytes/100 WBC (Bld) 12.6 % 0-10 [facility] Blood platelet mean volumeOr dered By: Britany Crandall on 06-13-2022 Platelet mean volume (Bld) [Entitic vol] 9.1 fL 6.2-12.0 [facility] Determination of erythrocyte mean corpuscular volume (MCV)Ordered By: Britany Crandall on 06-13-2022 MCV (RBC) [Entitic vol] 106.3 fL 81-99 [facility] Hematocrit Auto (Bld) [Volum e fraction]Ordered By: Britany Crandall on 06-13-2022 Hematocrit (Bld) [Volume fraction] 39.1 % 37-47 [facility] INR in Blood by Coagulation assayOrdered By: Dr. Babin on 06-13-2022 INR Coag (Bld) [Relative time] 2.8 {INR} [facility] Laboratory - Chemistry and C hemistry - challengeOrdered By: Britany Crandall on 06-13-2022 CO2 [Moles/Vol] 27.0 mmol/L 21.0-32.0 [facility] Magnesium [Mass/Vol] 2.4 mg/dL 1.6-2.6 [facility] Urea nitrogen/Creatinine [Mass ratio] 16.7 mg/mg 10-20 [facility] Laboratory - CoagulationOrde red By: Dr. Babin on 06-13-2022 PT Coag (PPP) [Time] 29.5 s 11.7-14.9 [facility] Laboratory - Hematology and Cell countsOrdered By: Britany Crandall on 06-13-2022 Erythrocyte distribution width (RBC) [Entitic vol] 56.1 fL 35.1-43.9 [facility] Erythrocyte distribution width (RBC) [Ratio] 14.3 % 11.6-14.6 [facility] Immature granulocytes/100 WBC (Bld) 0.500 % 0.0-0.9 [facility] Comment on above: IG% - Immature Granu locytes (promyelocytes, myelocytes and metamyelocytes) > 1% indicates that a LEFT SHIFT is Present. MCH (RBC) [Entitic mass] 33.4 pg 27.0-32.0 [facility] Nucleated RBC/100 WBC (Bld) [Ratio] 0 % 0-5 [facility] MCHC Auto (RBC) [Mass/Vol]Or dered By: Britany Crandall on 06-13-2022 MCHC (RBC) [Mass/Vol] 31.5 g/dL 32-36 [facility] No Panel InformationOrdered By: Britany Crandall on 06-13-2022 Estimated GFR (MDRD) Amer 66 mL/min >60 [facility] Comment on above: GFR Calc Estimated GFR (MDRD) Non-Af Amer 55 mL/min >60 [facility] Comment on above: Non- GFR Calc Platelets bldOrdered By: Kristine Crandall on 06-13-2022 Platelets (Bld) [#/Vol] 232 10*3/uL 150-450 [facility] Serum or plasma calcium caleb urement (mass/volume)Ordered By: Britany Crandall on 06-13-2022 Calcium [Mass/Vol] 9.1 mg/dL 8.5-10.1 [facility] Serum or plasma creatinine m easurement (mass/volume)Ordered By: Britany Crandall on 06-13-2022 Creatinine [Mass/Vol] 1.02 mg/dL 0.55-1.02 [facility] Comment on above: The validity of the calculated GFR & GFRAA in patients over 70 years has not been determined. Clinical correlation is essential. Serum or plasma urea nitroge n measurement (mass/volume)Ordered By: Britany Crandall on 06-13-2022 Urea nitrogen [Mass/Vol] 17 mg/dL 7-18 [facility] Thin prep Papanicolaou smear with manual screeningOrdered By: Britany Crandall on 06-13-2022 Thin prep Papanicolaou smear with manual screening 8 5-15 [facility] INR in Blood by Coagulation assayOrdered By: Dr. Fish on 05-27-2022 INR Coag (Bld) [Relative time] 2.9 {INR} [facility] Laboratory - CoagulationOrde red By: Dr. Fish on 05-27-2022 PT Coag (PPP) [Time] 29.7 s 11.7-14.9 [facility] No Panel InformationOrdered By: Dr. Fish on 05-27-2022 Thyroid Stimulating Hormone (TSH) 0.61 uIU/mL 0.358-3.74 [facility] INR in Blood by Coagulation assayon 04-14-2022 INR Coag (Bld) [Relative time] 2.6 {INR} [facility] Work Phone: Laboratory - Coagulationon 0 04-14-2022 PT Coag (PPP) [Time] 27.8 s 11.7-14.9 [facility] Work Phone: No Panel Informationon 04-10 Thyroid Stimulating Hormone (TSH) 10.60 uIU/mL 0.358-3.74 [facility] Work Phone: INR in Blood by Coagulation assayon 04-01-2022 INR Coag (Bld) [Relative time] 2.5 {INR} [facility] Work Phone: Laboratory - Coagulationon 0 04-01-2022 PT Coag (PPP) [Time] 27.0 s 11.7-14.9 [facility] Work Phone: Absolute lymphocyte counton 02-07-2022 Lymphocytes Auto (Unsp spec) [#/Vol] 1.20 10*3/uL 0.83-4.51 [facility] Work Phone: Basophil percentageon 2021 Basophils/100 WBC (Bld) 1.1 % 0-1 [facility] Work Phone: Chloride [Moles/Vol] 103 mmol/L 98-107 [facility] Work Phone: Eosinophils/100 WBC (Bld) 5.3 % 0-5 [facility] Work Phone: Glucose [Mass/Vol] 92 mg/dL 74-106 [facility] Work Phone: Neutrophils (Bld) [#/Vol] 3.0 10*3/uL 2.0-7.7 [facility] Work Phone: Neutrophils/100 WBC (Bld) 56.7 % 47-70 [facility] Work Phone: Potassium [Moles/Vol] 5.0 mmol/L 3.5-5.1 [facility] Work Phone: Sodium [Moles/Vol] 139 mmol/L 136-145 [facility] Work Phone: WBC (Bld) [#/Vol] 5.3 10*3/uL 4.4-11.0 [facility] Work Phone: [phone] Blood erythrocytes count (nu mber/volume)on 02-07-2022 RBC (Bld) [#/Vol] 4.11 10*6/uL 4.2-5.4 [facility] Work Phone: Blood hemoglobin measurement (mass/volume)on 02-07-2022 Hemoglobin (Bld) [Mass/Vol] 13.7 g/dL 12.0-15.0 [facility] Work Phone: Blood lymphocytes/100 leukoc yteson 02-07-2022 Lymphocytes/100 WBC (Bld) 22.8 % 19-41 [facility] Work Phone: Blood monocytes/100 leukocyt eson 02-07-2022 Monocytes/100 WBC (Bld) 13.7 % 0-10 [facility] Work Phone: Blood platelet mean volumeon 02-07-2022 Platelet mean volume (Bld) [Entitic vol] 8.9 fL 6.2-12.0 [facility] Work Phone: Determination of erythrocyte mean corpuscular volume (MCV)on 02-07-2022 MCV (RBC) [Entitic vol] 104.4 fL 81-99 [facility] Work Phone: Hematocrit Auto (Bld) [Volum e fraction]on 02-07-2022 Hematocrit (Bld) [Volume fraction] 42.9 % 37-47 [facility] Work Phone: INR in Blood by Coagulation assayon 02-07-2022 INR Coag (Bld) [Relative time] 2.3 {INR} [facility] Work Phone: Laboratory - Chemistry and C hemistry - challengeon 02-07-2022 CO2 [Moles/Vol] 30.0 mmol/L 21.0-32.0 [facility] Work Phone: Urea nitrogen/Creatinine [Mass ratio] 21.1 mg/mg 10-20 [facility] Work Phone: Laboratory - Coagulationon 0 02-07-2022 PT Coag (PPP) [Time] 25.2 s 11.7-14.9 [facility] Work Phone: Laboratory - Hematology and Cell countson 02-07-2022 Erythrocyte distribution width (RBC) [Entitic vol] 59.8 fL 35.1-43.9 [facility] Work Phone: Erythrocyte distribution width (RBC) [Ratio] 15.6 % 11.6-14.6 [facility] Work Phone: Immature granulocytes/100 WBC (Bld) 0.400 % 0.0-0.9 [facility] Work Phone: Comment on above: IG% - Immature Granu locytes (promyelocytes, myelocytes and metamyelocytes) > 1% indicates that a LEFT SHIFT is Present. MCH (RBC) [Entitic mass] 33.3 pg 27.0-32.0 [facility] Work Phone: Nucleated RBC/100 WBC (Bld) [Ratio] 0 % 0-5 [facility] Work Phone: MCHC Auto (RBC) [Mass/Vol]on 02-07-2022 MCHC (RBC) [Mass/Vol] 31.9 g/dL 32-36 [facility] Work Phone: No Panel Informationon 02-07 Estimated GFR (MDRD) Amer 42 mL/min >60 [facility] Work Phone: Comment on above: GFR Calc Estimated GFR (MDRD) Non-Af Amer 35 mL/min >60 [facility] Work Phone: Comment on above: Non- GFR Calc Platelets bldon 02-07-2022 Platelets (Bld) [#/Vol] 217 10*3/uL 150-450 [facility] Work Phone: Serum or plasma calcium caleb urement (mass/volume)on 02-07-2022 Calcium [Mass/Vol] 9.1 mg/dL 8.5-10.1 [facility] Work Phone: Serum or plasma creatinine m easurement (mass/volume)on 02-07-2022 Creatinine [Mass/Vol] 1.52 mg/dL 0.55-1.02 [facility] Work Phone: Comment on above: The validity of the calculated GFR & GFRAA in patients over 70 years has not been determined. Clinical correlation is essential. Serum or plasma urea nitroge n measurement (mass/volume)on 02-07-2022 Urea nitrogen [Mass/Vol] 32 mg/dL 7-18 [facility] Work Phone: Thin prep Papanicolaou smear with manual screeningon 02-07-2022 Thin prep Papanicolaou smear with manual screening 6 5-15 [facility] Work Phone: INR in Blood by Coagulation assayon 01-16-2022 INR Coag (Bld) [Relative time] 3.5 {INR} [facility] Work Phone: Laboratory - Coagulationon 0 - PT Coag (PPP) [Time] 34.5 s 11.7-14.9 [facility] Work Phone: INR in Blood by Coagulation assayon 12-17-2021 INR Coag (Bld) [Relative time] 2.8 {INR} [facility] Work Phone: [phone] Laboratory - Coagulationon 0 12-17-2021 PT Coag (PPP) [Time] 29.3 s 11.7-14.9 [facility] Work Phone: INR in Blood by Coagulation assayon 12-03-2021 INR Coag (Bld) [Relative time] 2.7 {INR} [facility] Work Phone: Laboratory - Coagulationon 0 - PT Coag (PPP) [Time] 28.6 s 11.7-14.9 [facility] Work Phone: [phone] INR in Blood by Coagulation assayon 11-25-2021 INR Coag (Bld) [Relative time] 2.3 {INR} [facility] Work Phone: Laboratory - Coagulationon 0 11-25-2021 PT Coag (PPP) [Time] 24.8 s 11.7-14.9 [facility] Work Phone: INR in Blood by Coagulation assayon 11-18-2021 INR Coag (Bld) [Relative time] 2.0 {INR} [facility] Work Phone: Laboratory - Coagulationon 0 11-18-2021 PT Coag (PPP) [Time] 22.2 s 11.7-14.9 [facility] Work Phone: Basophil percentageon 2021 Bilirubin [Mass/Vol] 0.60 mg/dL 0.20-1.00 [facility] Work Phone: Comment on above: For patients on eltr ombopag therapy, use of Dimension [place] TBIL is not recommended. Cholesterol [Mass/Vol] 182 mg/dL <200 [facility] Work Phone: Comment on above: <200 mg/dL Desirable 200-240 mg/dL Borderline >240 mg/dL High Risk Protein [Mass/Vol] 7.5 g/dL 6.4-8.2 [facility] Work Phone: Triglyceride [Mass/Vol] 106 mg/dL [facility] Work Phone: Comment on above: The drugs N-Acetylcy steine and Metamizole may falsely depress this assay.Serum Triglycerides Reference Interval Normal <150 mg/dL Borderline high 150 - 199 mg/dL High 200 - 499 mg/dL Very High > or = 500 mg/dL Direct bilirubinon 2 Bilirubin.direct [Mass/Vol] 0.18 mg/dL 0.00-0.30 [facility] Work Phone: INR in Blood by Coagulation assayon 10-28-2021 INR Coag (Bld) [Relative time] 3.3 {INR} [facility] Work Phone: Laboratory - Chemistry and C hemistry - challengeon 10-28-2021 ALP [Catalytic activity/Vol] 92 U/L 45-117 [facility] Work Phone: ALT [Catalytic activity/Vol] 30 U/L 13-56 [facility] Work Phone: Globulin (S) [Mass/Vol] 3.9 g/dL 2.2-4.2 [facility] Work Phone: Laboratory - Coagulationon 0 10-28-2021 PT Coag (PPP) [Time] 32.5 s 11.7-14.9 [facility] Work Phone: Serum or plasma albumin caleb urement (mass/volume)on 10-28-2021 Albumin [Mass/Vol] 3.6 g/dL 3.2-5.0 [facility] Work Phone: Serum or plasma cholesterol in HDL measurement (mass/volume)on 10-28-2021 Cholesterol in HDL [Mass/Vol] 79 mg/dL [facility] Work Phone: Comment on above: The drugs N-Acetylcy steine and Metamizole may falsely depress this assay. Reference Range HDL <40 mg/dL Low HDL Cholesterol HDL >or= 60 mg/dL High HDL Cholesterol Serum or plasma cholesterol in VLDL measurement (mass/volume)on 10-28-2021 Cholesterol in VLDL [Mass/Vol] 21 mg/dL 5-40 [facility] Work Phone: Serum or plasma low density lipoprotein (LDL) cholesterol measurement (mass/volume)on 10-28-2021 Cholesterol in LDL [Mass/Vol] 82 mg/dL 0-130 [facility] Work Phone: Thin prep Papanicolaou smear with manual screeningon 10-28-2021 Thin prep Papanicolaou smear with manual screening 31 U/L 15-37 [facility] Work Phone: Basophil percentageon 2021 Basophil percentage >100 SEEN /hpf [facility] Work Phone: Bilirubin Test strip Ql (U)o n 10-08-2021 Bilirubin Ql (U) Negative Negative [facility] Work Phone: Culture, urineon 10-08-2021 Bacteria identified Cx Nom (U) Presumptive E. coli [facility] Work Phone: INR in Blood by Coagulation assayon 10-08-2021 INR Coag (Bld) [Relative time] 3.3 {INR} [facility] Work Phone: Ketones Test strip Ql (U)on 10-08-2021 Ketones Ql (U) 5 mg/dl Negative [facility] Work Phone: Laboratory - Coagulationon 0 10-08-2021 PT Coag (PPP) [Time] 32.8 s 11.7-14.9 [facility] Work Phone: Mucus LM Ql (Urine sed)on Mucus Ql (Urine sed) 0 SEEN /hpf [facility] Work Phone: Nitrite Test strip Ql (U)on 10-08-2021 Nitrite Ql (U) Negative Negative [facility] Work Phone: Protein Test strip Ql (U)on 10-08-2021 Protein Ql (U) 30 mg/dl Negative [facility] Work Phone: Squamous epithelial cells de tection in urine sediment by light microscopyon 10-08-2021 Epithelial cells.squamous LM Ql (Urine sed) 0 SEEN /hpf [facility] Work Phone: Urine blood detectionon RBC Ql (U) 25 /ul Negative [facility] Work Phone: RBC Ql (U) 0 SEEN /hpf [facility] Work Phone: Urine clarityon 10-08-2021 Clarity (U) Cloudy Clear [facility] Work Phone: Urine color determinationon 10-08-2021 Color (U) Yellow Yellow [facility] Work Phone: Urine glucose detectionon Glucose Ql (U) Normal mg/dl Normal [facility] Work Phone: Urine leukocyte esterase det ection by dipstickon 10-08-2021 Leukocyte esterase Test strip Ql (U) 500 /ul Negative [facility] Work Phone: Urine pHon 10-08-2021 pH (U) 7.0 [pH] [facility] Work Phone: Urine sediment bacteria coun t by microscopy (number/high power field)on 10-08-2021 Bacteria LM.HPF (Urine sed) [#/Area] 4 /[HPF] None Seen [facility] Work Phone: Urine specific gravity measu rementon 10-08-2021 Specific gravity (U) [Rel density] 1.010 [facility] Work Phone: Urobilinogen Auto test strip Ql (U)on 10-08-2021 Urobilinogen Ql (U) 1 mg/dl Normal [facility] Work Phone: INR in Blood by Coagulation assayon 09-26-2021 INR Coag (Bld) [Relative time] 3.7 {INR} [facility] Work Phone: Laboratory - Coagulationon 0 09-26-2021 PT Coag (PPP) [Time] 35.6 s 11.7-14.9 [facility] Work Phone: Whole blood prothrombin time on 09-26-2021 PT Coag (Bld) [Time] 50.6 s 11.9-14.4 [facility] Work Phone: No Panel Informationon 09-19 SARS-CoV-2 Antigen (Rapid) [facility] Work Phone: Absolute lymphocyte counton 09-18-2021 Lymphocytes Auto (Unsp spec) [#/Vol] 0.52 10*3/uL 0.83-4.51 [facility] Work Phone: Basophil percentageon 2021 Basophils/100 WBC (Bld) 0.8 % 0-1 [facility] Work Phone: Chloride [Moles/Vol] 103 mmol/L 98-107 [facility] Work Phone: Eosinophils/100 WBC (Bld) 7.7 % 0-5 [facility] Work Phone: Glucose [Mass/Vol] 85 mg/dL 74-106 [facility] Work Phone: Neutrophils (Bld) [#/Vol] 3.2 10*3/uL 2.0-7.7 [facility] Work Phone: Neutrophils/100 WBC (Bld) 65.2 % 47-70 [facility] Work Phone: Potassium [Moles/Vol] 3.7 mmol/L 3.5-5.1 [facility] Work Phone: Sodium [Moles/Vol] 136 mmol/L 136-145 [facility] Work Phone: WBC (Bld) [#/Vol] 5.0 10*3/uL 4.4-11.0 [facility] Work Phone: Blood erythrocytes count (nu mber/volume)on 09-18-2021 RBC (Bld) [#/Vol] 2.93 10*6/uL 4.2-5.4 [facility] Work Phone: Blood hemoglobin measurement (mass/volume)on 09-18-2021 Hemoglobin (Bld) [Mass/Vol] 9.9 g/dL 12.0-15.0 [facility] Work Phone: Blood lymphocytes/100 leukoc yteson 09-18-2021 Lymphocytes/100 WBC (Bld) 10.5 % 19-41 [facility] Work Phone: Blood manual differential co mment interpretation (narrative result)on 09-18-2021 Manual differential comment Tomi (Bld) [Interp] SCANNED [facility] Work Phone: Comment on above: LYMPHOPENIA NOTED Blood monocytes/100 leukocyt eson 09-18-2021 Monocytes/100 WBC (Bld) 15.2 % 0-10 [facility] Work Phone: Blood platelet mean volumeon 09-18-2021 Platelet mean volume (Bld) [Entitic vol] 8.3 fL 6.2-12.0 [facility] Work Phone: Determination of erythrocyte mean corpuscular volume (MCV)on 09-18-2021 MCV (RBC) [Entitic vol] 102.0 fL 81-99 [facility] Work Phone: Hematocrit Auto (Bld) [Volum e fraction]on 09-18-2021 Hematocrit (Bld) [Volume fraction] 29.9 % 37-47 [facility] Work Phone: Laboratory - Chemistry and C hemistry - challengeon 09-18-2021 CO2 [Moles/Vol] 27.0 mmol/L 21.0-32.0 [facility] Work Phone: Urea nitrogen/Creatinine [Mass ratio] 17.2 mg/mg 10-20 [facility] Work Phone: Laboratory - Hematology and Cell countson 09-18-2021 Anisocytosis Ql (Bld) 1+ [facility] Work Phone: Erythrocyte distribution width (RBC) [Entitic vol] 68.2 fL 35.1-43.9 [facility] Work Phone: Erythrocyte distribution width (RBC) [Ratio] 17.9 % 11.6-14.6 [facility] Work Phone: Immature granulocytes/100 WBC (Bld) 0.600 % 0.0-0.9 [facility] Work Phone: Comment on above: IG% - Immature Granu locytes (promyelocytes, myelocytes and metamyelocytes) > 1% indicates that a LEFT SHIFT is Present. MCH (RBC) [Entitic mass] 33.8 pg 27.0-32.0 [facility] Work Phone: Nucleated RBC/100 WBC (Bld) [Ratio] 0 % 0-5 [facility] Work Phone: MCHC Auto (RBC) [Mass/Vol]on 09-18-2021 MCHC (RBC) [Mass/Vol] 33.1 g/dL 32-36 [facility] Work Phone: Macrocytes detectionon 09-18 Macrocytes Ql (Bld) 1+ [facility] Work Phone: No Panel Informationon 09-18 Estimated Creatinine Clearance Calc 44.61 ml/min [facility] Work Phone: Estimated GFR (MDRD) Amer 74 mL/min >60 [facility] Work Phone: Comment on above: GFR Calc Estimated GFR (MDRD) Non-Af Amer 61 mL/min >60 [facility] Work Phone: Comment on above: Non- GFR Calc Platelets bldon 09-18-2021 Platelets (Bld) [#/Vol] 297 10*3/uL 150-450 [facility] Work Phone: Serum or plasma calcium caleb urement (mass/volume)on 09-18-2021 Calcium [Mass/Vol] 7.8 mg/dL 8.5-10.1 [facility] Work Phone: Serum or plasma creatinine m easurement (mass/volume)on 09-18-2021 Creatinine [Mass/Vol] 0.93 mg/dL 0.55-1.02 [facility] Work Phone: Comment on above: The validity of the calculated GFR & GFRAA in patients over 70 years has not been determined. Clinical correlation is essential. Serum or plasma urea nitroge n measurement (mass/volume)on 09-18-2021 Urea nitrogen [Mass/Vol] 16 mg/dL 7-18 [facility] Work Phone: Thin prep Papanicolaou smear with manual screeningon 09-18-2021 Thin prep Papanicolaou smear with manual screening 6 5-15 [facility] Work Phone: INR in Blood by Coagulation assayon 09-17-2021 INR Coag (Bld) [Relative time] 2.7 {INR} [facility] Work Phone: Laboratory - Coagulationon 0 09-17-2021 PT Coag (PPP) [Time] 28.2 s 11.7-14.9 [facility] Work Phone: Basophil percentageon 2021 Chloride [Moles/Vol] 103 mmol/L 98-107 [facility] Work Phone: Glucose [Mass/Vol] 128 mg/dL 74-106 [facility] Work Phone: Comment on above: Fasting Glucose resu lt greater than or equal to 126 mg/dL suggests DIABETES MELLITUS per A.D.A. criteria. Potassium [Moles/Vol] 4.0 mmol/L 3.5-5.1 [facility] Work Phone: Sodium [Moles/Vol] 139 mmol/L 136-145 [facility] Work Phone: [phone] WBC (Bld) [#/Vol] 5.8 10*3/uL 4.4-11.0 [facility] Work Phone: Blood erythrocytes count (nu mber/volume)on 08-28-2021 RBC (Bld) [#/Vol] 4.19 10*6/uL 4.2-5.4 [facility] Work Phone: Blood hemoglobin measurement (mass/volume)on 08-28-2021 Hemoglobin (Bld) [Mass/Vol] 13.8 g/dL 12.0-15.0 [facility] Work Phone: Blood platelet mean volumeon 08-28-2021 Platelet mean volume (Bld) [Entitic vol] 8.6 fL 6.2-12.0 [facility] Work Phone: Determination of erythrocyte mean corpuscular volume (MCV)on 08-28-2021 MCV (RBC) [Entitic vol] 101.7 fL 81-99 [facility] Work Phone: Hematocrit Auto (Bld) [Volum e fraction]on 08-28-2021 Hematocrit (Bld) [Volume fraction] 42.6 % 37-47 [facility] Work Phone: INR in Blood by Coagulation assayon 08-28-2021 INR Coag (Bld) [Relative time] 2.5 {INR} [facility] Work Phone: Laboratory - Chemistry and C hemistry - challengeon 08-28-2021 CO2 [Moles/Vol] 27.0 mmol/L 21.0-32.0 [facility] Work Phone: Urea nitrogen/Creatinine [Mass ratio] 16.3 mg/mg 10-20 [facility] Work Phone: Laboratory - Coagulationon 0 08-28-2021 PT Coag (PPP) [Time] 26.2 s 11.7-14.9 [facility] Work Phone: Laboratory - Hematology and Cell countson 08-28-2021 Erythrocyte distribution width (RBC) [Entitic vol] 57.9 fL 35.1-43.9 [facility] Work Phone: Erythrocyte distribution width (RBC) [Ratio] 15.3 % 11.6-14.6 [facility] Work Phone: MCH (RBC) [Entitic mass] 32.9 pg 27.0-32.0 [facility] Work Phone: MCHC Auto (RBC) [Mass/Vol]on 08-28-2021 MCHC (RBC) [Mass/Vol] 32.4 g/dL 32-36 [facility] Work Phone: No Panel Informationon 08-28 Estimated Creatinine Clearance Calc 33.73 ml/min [facility] Work Phone: Estimated GFR (MDRD) Amer 53 mL/min >60 [facility] Work Phone: Comment on above: GFR Calc Estimated GFR (MDRD) Non-Af Amer 44 mL/min >60 [facility] Work Phone: Comment on above: Non- GFR Calc Platelets bldon 08-28-2021 Platelets (Bld) [#/Vol] 203 10*3/uL 150-450 [facility] Work Phone: Serum or plasma calcium caleb urement (mass/volume)on 08-28-2021 Calcium [Mass/Vol] 8.9 mg/dL 8.5-10.1 [facility] Work Phone: Serum or plasma creatinine m easurement (mass/volume)on 08-28-2021 Creatinine [Mass/Vol] 1.23 mg/dL 0.55-1.02 [facility] Work Phone: Comment on above: The validity of the calculated GFR & GFRAA in patients over 70 years has not been determined. Clinical correlation is essential. Serum or plasma urea nitroge n measurement (mass/volume)on 08-28-2021 Urea nitrogen [Mass/Vol] 20 mg/dL 7-18 [facility] Work Phone: Thin prep Papanicolaou smear with manual screeningon 08-28-2021 Thin prep Papanicolaou smear with manual screening 9 5-15 [facility] Work Phone: INR in Blood by Coagulation assayon 08-05-2021 INR Coag (Bld) [Relative time] 3.0 {INR} [facility] Work Phone: Laboratory - Coagulationon 0 08-05-2021 PT Coag (PPP) [Time] 30.5 s 11.7-14.9 [facility] Work Phone: Vital Signs Date Time Vital Sign Value Performing Clinician Tigre miller 05-09-2025 13:13-0400 Body height 172.[address] Radha Fish MD Work Phone: [facility] 05-09-2025 13:13-0400 Body mass index (BMI) [Ratio] 24 kg/m2 Dr. Radha Fish MD Work Phone: [facility] 05-09-2025 13:13-0400 Body temperature 96.7 [degF] Dr. Radha Fish MD Work Phone: [facility] 05-09-2025 13:13-0400 Body weight 71.[address] Radha Fish MD Work Phone: [facility] 05-09-2025 13:13-0400 Diastolic blood pressure 64 mm[Hg] Dr. Radha Fish MD Work Phone: [facility] 05-09-2025 13:13-0400 Heart rate 76 /min Dr. Radha Fish MD Work Phone: [facility] 05-09-2025 13:13-0400 Respiratory rate 16 /min Dr. Radha Fish MD Work Phone: [facility] 05-09-2025 13:13-0400 SaO2% (BldA) [Mass fraction] 98 % Dr. Radha Fish MD Work Phone: [facility] 05-09-2025 13:13-0400 Systolic blood pressure 92 mm[Hg] Dr. Radha Fish MD Work Phone: [facility] 04-14-2025 07:36-0400 Body mass index (BMI) [Ratio] 24 kg/m2 Dr. Radha Fish MD Work Phone: [facility] 04-14-2025 07:36-0400 Body weight 71.[address] Radha Fish MD Work Phone: [facility] 04-14-2025 07:36-0400 Diastolic blood pressure 64 mm[Hg] Dr. Radha Fish MD Work Phone: [facility] 04-14-2025 07:36-0400 Heart rate 80 /min Dr. Radha Fish MD Work Phone: [facility] 04-14-2025 07:36-0400 Respiratory rate 18 /min Dr. Radha Fish MD Work Phone: [facility] 04-14-2025 07:36-0400 SaO2% (BldA) [Mass fraction] 97 % Dr. Radha Fish MD Work Phone: [facility] 04-14-2025 07:36-0400 Systolic blood pressure 97 mm[Hg] Dr. Radha Fish MD Work Phone: [facility] 04-09-2025 11:16-0400 Body height 172.[address] Radha Fish MD Work Phone: [facility] 04-09-2025 11:16-0400 Body mass index (BMI) [Ratio] 23.4 kg/m2 Dr. Radha Fish MD Work Phone: [facility] 04-09-2025 11:16-0400 Body temperature 98.6 [degF] Dr. Radha Fish MD Work Phone: [facility] 04-09-2025 11:16-0400 Body weight 69.[address] Radha Fish MD Work Phone: [facility] 04-09-2025 11:16-0400 Diastolic blood pressure 66 mm[Hg] Dr. Radha Fish MD Work Phone: [facility] 04-09-2025 11:16-0400 Heart rate 70 /min Dr. Radha Fish MD Work Phone: [facility] 04-09-2025 11:16-0400 Respiratory rate 15 /min Dr. Radha Fish MD Work Phone: [facility] 04-09-2025 11:16-0400 SaO2% (BldA) [Mass fraction] 98 % Dr. Radha Fish MD Work Phone: [facility] 04-09-2025 11:16-0400 Systolic blood pressure 102 mm[Hg] Dr. Radha Fish MD Work Phone: [facility] 03-01-2025 12:14-0400 Body mass index (BMI) [Ratio] 22.5 kg/m2 Dr. Radha Fish MD Work Phone: [facility] 03-01-2025 12:14-0400 Body temperature 96.4 [degF] Dr. Radha Fish MD Work Phone: [facility] 03-01-2025 12:14-0400 Body weight 67.[address] Radha Fish MD Work Phone: [facility] 03-01-2025 12:14-0400 Diastolic blood pressure 82 mm[Hg] Dr. Radha Fish MD Work Phone: [facility] 03-01-2025 12:14-0400 Heart rate 87 /min Dr. Radha Fish MD Work Phone: [facility] 03-01-2025 12:14-0400 Respiratory rate 16 /min Dr. Radha Fish MD Work Phone: [facility] 03-01-2025 12:14-0400 SaO2% (BldA) [Mass fraction] 97 % Dr. Radha Fish MD Work Phone: [facility] 03-01-2025 12:14-0400 Systolic blood pressure 124 mm[Hg] Dr. Radha Fish MD Work Phone: [facility] 03-01-2025 11:07-0400 Body height 172.[address] Rahda Fish MD Work Phone: [facility] 03-01-2025 11:07-0400 Body mass index (BMI) [Ratio] 22.8 kg/m2 Dr. Radha Fish MD Work Phone: [facility] 03-01-2025 11:07-0400 Body temperature 97 [degF] Dr. Radha Fish MD Work Phone: [facility] 03-01-2025 11:07-0400 Body weight 68.[address] Radha Fish MD Work Phone: [facility] 03-01-2025 11:07-0400 Diastolic blood pressure 84 mm[Hg] Dr. Radha Fish MD Work Phone: [facility] 03-01-2025 11:07-0400 Heart rate 69 /min Dr. Radha Fish MD Work Phone: [facility] 03-01-2025 11:07-0400 Respiratory rate 16 /min Dr. Radha Fish MD Work Phone: [facility] 03-01-2025 11:07-0400 SaO2% (BldA) [Mass fraction] 95 % Dr. Radha Fish MD Work Phone: [facility] 03-01-2025 11:07-0400 Systolic blood pressure 118 mm[Hg] Dr. Radha Fish MD Work Phone: [facility] 02-23-2025 11:23-0400 Body height 172.[address] Radha Fish MD Work Phone: [facility] 02-23-2025 11:23-0400 Body mass index (BMI) [Ratio] 25.4 kg/m2 Dr. Radha Fish MD Work Phone: [facility] 02-23-2025 11:23-0400 Body temperature 96.5 [degF] Dr. Radha Fish MD Work Phone: [facility] 02-23-2025 11:23-0400 Body weight 75.[address] Radha Fish MD Work Phone: [facility] 02-23-2025 11:23-0400 Diastolic blood pressure 74 mm[Hg] Dr. Radha Fish MD Work Phone: [facility] 02-23-2025 11:23-0400 Heart rate 83 /min Dr. Radha Fish MD Work Phone: [facility] 02-23-2025 11:23-0400 Respiratory rate 16 /min Dr. Radha Fish MD Work Phone: [facility] 02-23-2025 11:23-0400 SaO2% (BldA) [Mass fraction] 95 % Dr. Radha Fish MD Work Phone: [facility] 02-23-2025 11:23-0400 Systolic blood pressure 120 mm[Hg] Dr. Radha Fish MD Work Phone: [facility] 02-22-2025 13:01-0400 Body height 172.[address] Radha Fish MD Work Phone: [facility] 02-22-2025 13:01-0400 Body mass index (BMI) [Ratio] 25.2 kg/m2 Dr. Radha Fish MD Work Phone: [facility] 02-22-2025 13:01-0400 Body weight 75.[address] Radha Fish MD Work Phone: [facility] 02-22-2025 13:01-0400 Diastolic blood pressure 75 mm[Hg] Dr. Radha Fish MD Work Phone: [facility] 02-22-2025 13:01-0400 Heart rate 71 /min Dr. Radha Fish MD Work Phone: [facility] 02-22-2025 13:01-0400 Respiratory rate 16 /min Dr. Radha Fish MD Work Phone: [facility] 02-22-2025 13:01-0400 Systolic blood pressure 116 mm[Hg] Dr. Radha Fish MD Work Phone: [facility] 01-31-2025 00:10-0400 Body temperature 98 [degF] Dr. Radha Fish MD Work Phone: [facility] 01-31-2025 00:10-0400 Diastolic blood pressure 74 mm[Hg] Dr. Radha Fish MD Work Phone: [facility] 01-31-2025 00:10-0400 Heart rate 91 /min Dr. Radha Fish MD Work Phone: [facility] 01-31-2025 00:10-0400 Respiratory rate 20 /min Dr. Radha Fish MD Work Phone: [facility] 01-31-2025 00:10-0400 SaO2% (BldA) [Mass fraction] 95 % Dr. Radha Fish MD Work Phone: [facility] 01-31-2025 00:10-0400 Systolic blood pressure 109 mm[Hg] Dr. Radha Fish MD Work Phone: [facility] 01-30-2025 19:40-0400 Body mass index (BMI) [Ratio] 24.6 kg/m2 Dr. Radha Fish MD Work Phone: [facility] 01-30-2025 19:40-0400 Body weight 73.[address] Radha Fish MD Work Phone: [facility] 01-30-2025 19:20-0400 Body height 172.[address] Radha Fish MD Work Phone: [facility] 01-05-2025 09:29-0400 Body height 172.[address] Radha Fish MD Work Phone: [facility] 01-05-2025 09:29-0400 Body mass index (BMI) [Ratio] 22.6 kg/m2 Dr. Radha Fish MD Work Phone: [facility] 01-05-2025 09:29-0400 Body weight 67.[address] Radha Fish MD Work Phone: [facility] 01-05-2025 09:29-0400 Diastolic blood pressure 64 mm[Hg] Dr. Radha Fish MD Work Phone: [facility] 01-05-2025 09:29-0400 Heart rate 56 /min Dr. Radha Fish MD Work Phone: [facility] 01-05-2025 09:29-0400 Respiratory rate 18 /min Dr. Radha Fish MD Work Phone: [facility] 01-05-2025 09:29-0400 Systolic blood pressure 105 mm[Hg] Dr. Radha Fish MD Work Phone: [facility] 12-31-2024 20:50-0400 Body mass index (BMI) [Ratio] 24 kg/m2 Dr. Radha Fish MD Work Phone: [facility] 12-01-2024 00:27-0400 Body mass index (BMI) [Ratio] 24 kg/m2 Dr. Radha Fish MD Work Phone: [facility] 11-01-2024 00:13-0400 Body mass index (BMI) [Ratio] 24 kg/m2 Dr. Radha Fish MD Work Phone: [facility] 10-26-2024 11:05-0400 Body height 172.[address] Radha Fish MD Work Phone: [facility] 10-26-2024 08:39-0400 Body mass index (BMI) [Ratio] 22 kg/m2 Dr. Radha Fish MD Work Phone: [facility] 10-26-2024 08:39-0400 Body weight 65.[address] Radha Fish MD Work Phone: [facility] 10-26-2024 08:39-0400 Diastolic blood pressure 65 mm[Hg] Dr. Radha Fish MD Work Phone: [facility] 10-26-2024 08:39-0400 Heart rate 62 /min Dr. Radha Fish MD Work Phone: [facility] 10-26-2024 08:39-0400 Respiratory rate 18 /min Dr. Radha Fish MD Work Phone: [facility] 10-26-2024 08:39-0400 SaO2% (BldA) [Mass fraction] 92 % Dr. Radha Fish MD Work Phone: [facility] 10-26-2024 08:39-0400 Systolic blood pressure 108 mm[Hg] Dr. Radha Fish MD Work Phone: [facility] 10-01-2024 00:39-0500 Body mass index (BMI) [Ratio] 24 kg/m2 Dr. Radha Fish MD Work Phone: [facility] 09-03-2024 00:45-0500 Body mass index (BMI) [Ratio] 24 kg/m2 Dr. Radha Fish MD Work Phone: [facility] 09-01-2024 14:13-0500 Body mass index (BMI) [Ratio] 22.2 kg/m2 Dr. Radha Fish MD Work Phone: [facility] 09-01-2024 14:13-0500 Body temperature 96.2 [degF] Dr. Radha Fish MD Work Phone: [facility] 09-01-2024 14:13-0500 Body weight 66.[address] Radha Fish MD Work Phone: [facility] 09-01-2024 14:13-0500 Diastolic blood pressure 62 mm[Hg] Dr. Radha Fish MD Work Phone: [facility] 09-01-2024 14:13-0500 Heart rate 82 /min Dr. Radha Fish MD Work Phone: [facility] 09-01-2024 14:13-0500 Respiratory rate 16 /min Dr. Radha Fish MD Work Phone: [facility] 09-01-2024 14:13-0500 SaO2% (BldA) [Mass fraction] 94 % Dr. Radha Fish MD Work Phone: [facility] 09-01-2024 14:13-0500 Systolic blood pressure 102 mm[Hg] Dr. Radha Fish MD Work Phone: [facility] 08-03-2024 00:20-0500 Body mass index (BMI) [Ratio] 24 kg/m2 Dr. Radha Fish MD Work Phone: [facility] 07-03-2024 00:38-0500 Body mass index (BMI) [Ratio] 24 kg/m2 Dr. Radha Fish MD Work Phone: [facility] 03-01-2024 15:19-0400 Body height 172.7 cm Reno Dukes MD Work Phone: [facility] 03-01-2024 15:19-0400 Body mass index (BMI) [Ratio] 21.93 kg/m2 Reno Dukes MD Work Phone: [facility] 03-01-2024 15:19-0400 Body weight 65.41 kg Reno Dukes MD Work Phone: [facility] 03-01-2024 15:19-0400 Diastolic blood pressure 85 mm[Hg] Reno Dukes MD Work Phone: [facility] 03-01-2024 15:19-0400 Heart rate 67 /min Reno Dukes MD Work Phone: [facility] 03-01-2024 15:19-0400 SaO2% (BldA) [Mass fraction] 97 % Reno Dukes MD Work Phone: [facility] 03-01-2024 15:19-0400 Systolic blood pressure 118 mm[Hg] Reno Dukes MD Work Phone: [facility] 12-24-2023 12:21-0400 Body height 172.7 cm Danny Edmond MD Work Phone: [facility] 12-24-2023 12:21-0400 Body mass index (BMI) [Ratio] 22.81 kg/m2 Danny Edmond MD Work Phone: [facility] 12-24-2023 12:21-0400 Body weight 68.04 kg Danny Edmond MD Work Phone: [facility] 12-24-2023 12:21-0400 Diastolic blood pressure 76 mm[Hg] Danny Edmond MD Work Phone: [facility] 12-24-2023 12:21-0400 Heart rate 89 /min Danny Edmond MD Work Phone: [facility] 12-24-2023 12:21-0400 Systolic blood pressure 131 mm[Hg] Danny Edmond MD Work Phone: [facility] 11-17-2023 12:47-0400 Body height 172.[address] Radha Fish Work Phone: [facility] 11-17-2023 12:47-0400 Body weight 68.[address] Radha Fish Work Phone: [facility] 11-17-2023 12:47-0400 Heart rate 90 /min Dr. Radha Fish Work Phone: [facility] 11-17-2023 12:47-0400 SaO2% (BldA) [Mass fraction] 96 % Dr. Radha Fish Work Phone: [facility] 10-31-2023 22:08-0400 Body mass index (BMI) [Ratio] 24 kg/m2 Dr. Radha Fish Work Phone: [facility] 10-01-2023 22:27-0500 Body mass index (BMI) [Ratio] 24 kg/m2 Dr. Radha Fish Work Phone: [facility] 09-02-2023 21:54-0500 Body mass index (BMI) [Ratio] 24 kg/m2 Dr. Radha Fish Work Phone: [facility] 08-03-2023 00:26-0500 Body mass index (BMI) [Ratio] 24 kg/m2 Dr. Radha Fish Work Phone: [facility] 07-21-2023 10:23-0500 Body height 172.[address] Radha Fish Work Phone: [facility] 07-21-2023 10:15-0500 Body mass index (BMI) [Ratio] 23.1 kg/m2 Dr. Radha Fish Work Phone: [facility] 07-21-2023 10:15-0500 Body weight 68.[address] Radha Fish Work Phone: [facility] 07-21-2023 10:15-0500 Diastolic blood pressure 70 mm[Hg] Dr. Radha Fish Work Phone: [facility] 07-21-2023 10:15-0500 Heart rate 120 /min Dr. Radha Fish Work Phone: [facility] 07-21-2023 10:15-0500 Respiratory rate 18 /min Dr. Radha Fish Work Phone: [facility] 07-21-2023 10:15-0500 SaO2% (BldA) [Mass fraction] 95 % Dr. Radha Fish Work Phone: [facility] 07-21-2023 10:15-0500 Systolic blood pressure 120 mm[Hg] Dr. Radha Fish Work Phone: [facility] 07-15-2023 14:10-0500 Body mass index (BMI) [Ratio] 23.2 kg/m2 Dr. Radha Fish Work Phone: [facility] 07-15-2023 14:10-0500 Body temperature 97.1 [degF] Dr. Radha Fish Work Phone: [facility] 07-15-2023 14:10-0500 Body weight 69.[address] Radha Fish Work Phone: [facility] 07-15-2023 14:10-0500 Diastolic blood pressure 70 mm[Hg] Dr. Radha Fish Work Phone: [facility] 07-15-2023 14:10-0500 Heart rate 114 /min Dr. Radha Fish Work Phone: [facility] 07-15-2023 14:10-0500 Respiratory rate 16 /min Dr. Radha Fish Work Phone: [facility] 07-15-2023 14:10-0500 SaO2% (BldA) [Mass fraction] 95 % Dr. Radha Fish Work Phone: [facility] 07-15-2023 14:10-0500 Systolic blood pressure 118 mm[Hg] Dr. Radha Fish Work Phone: [facility] 07-03-2023 03:25-0500 Body mass index (BMI) [Ratio] 24 kg/m2 Dr. Radha Fish Work Phone: [facility] 06-02-2023 23:21-0400 Body mass index (BMI) [Ratio] 24 kg/m2 Dr. Radha Fish Work Phone: [facility] 05-03-2023 01:57-0400 Body mass index (BMI) [Ratio] 24 kg/m2 [facility] 04-03-2023 00:37-0400 Body mass index (BMI) [Ratio] 24 kg/m2 Dr. Radha Fish Work Phone: [facility] 03-03-2023 00:38-0400 Body mass index (BMI) [Ratio] 24 kg/m2 Dr. Radha Fish Work Phone: [facility] 02-12-2023 10:25-0400 Body height 172.[address] Radha Fish Work Phone: [facility] 01-31-2023 01:37-0400 Body mass index (BMI) [Ratio] 24 kg/m2 Dr. Radha Fish Work Phone: [facility] 01-28-2023 10:04-0400 Body mass index (BMI) [Ratio] 22.8 kg/m2 Dr. Radha Fish Work Phone: [facility] 01-28-2023 10:04-0400 Body weight 68.[address] Radha Fish Work Phone: [facility] 01-28-2023 10:04-0400 Diastolic blood pressure 76 mm[Hg] Dr. Radha Fish Work Phone: [facility] 01-28-2023 10:04-0400 Heart rate 80 /min Dr. Radha Fish Work Phone: [facility] 01-28-2023 10:04-0400 Respiratory rate 18 /min Dr. Radha Fish Work Phone: [facility] 01-28-2023 10:04-0400 SaO2% (BldA) [Mass fraction] 96 % Dr. Radha Fish Work Phone: [facility] 01-28-2023 10:04-0400 Systolic blood pressure 121 mm[Hg] Dr. Radha Fish Work Phone: [facility] 01-23-2023 10:26-0400 Body mass index (BMI) [Ratio] 22.8 kg/m2 Dr. aRdha Fish Work Phone: [facility] 01-23-2023 10:26-0400 Body temperature 97.8 [degF] Dr. Radha Fish Work Phone: [facility] 01-23-2023 10:26-0400 Body weight 68.[address] Radha Fish Work Phone: [facility] 01-23-2023 10:26-0400 Diastolic blood pressure 80 mm[Hg] Dr. Radha Fish Work Phone: [facility] 01-23-2023 10:26-0400 Heart rate 100 /min Dr. Radha Fish Work Phone: [facility] 01-23-2023 10:26-0400 Respiratory rate 16 /min Dr. Radha Fish Work Phone: [facility] 01-23-2023 10:26-0400 SaO2% (BldA) [Mass fraction] 94 % Dr. Radha Fish Work Phone: [facility] 01-23-2023 10:26-0400 Systolic blood pressure 124 mm[Hg] Dr. Radha Fish Work Phone: [facility] 01-01-2023 15:04-0400 Body height 172.[address] Radha Fish Work Phone: [facility] 01-01-2023 08:30-0400 Body mass index (BMI) [Ratio] 24 kg/m2 Dr. Radha Fish Work Phone: [facility] 10-31-2022 21:48-0400 Body mass index (BMI) [Ratio] 24 kg/m2 Dr. Radha Fish Work Phone: [facility] 10-15-2022 10:07-0400 Body height 172.[address] Radha Fish Work Phone: [facility] 10-15-2022 10:07-0400 Body mass index (BMI) [Ratio] 23.1 kg/m2 Dr. Radha Fish Work Phone: [facility] 10-15-2022 10:07-0400 Body weight 68.[address] Radha Fish Work Phone: [facility] 10-15-2022 10:07-0400 Diastolic blood pressure 78 mm[Hg] Dr. Radha Fish Work Phone: [facility] 10-15-2022 10:07-0400 Respiratory rate 18 /min Dr. Radha Fish Work Phone: [facility] 10-15-2022 10:07-0400 Systolic blood pressure 115 mm[Hg] Dr. Radha Fish Work Phone: [facility] 09-30-2022 19:57-0500 Body mass index (BMI) [Ratio] 24 kg/m2 Dr. Radha Fish Work Phone: [facility] 09-18-2022 14:55-0500 Body height 172.[address] Radha Fish Work Phone: [facility] 09-18-2022 14:55-0500 Body mass index (BMI) [Ratio] 22.8 kg/m2 Dr. Radha Fish Work Phone: [facility] 09-18-2022 14:55-0500 Body temperature 97.6 [degF] Dr. Radha Fish Work Phone: [facility] 09-18-2022 14:55-0500 Body weight 68.[address] Radha Fish Work Phone: [facility] 09-18-2022 14:55-0500 Diastolic blood pressure 98 mm[Hg] Dr. Radha Fish Work Phone: [facility] 09-18-2022 14:55-0500 Heart rate 108 /min Dr. Radha Fish Work Phone: [facility] 09-18-2022 14:55-0500 Respiratory rate 16 /min Dr. Radha Fish Work Phone: [facility] 09-18-2022 14:55-0500 SaO2% (BldA) [Mass fraction] 92 % Dr. Radha Fish Work Phone: [facility] 09-18-2022 14:55-0500 Systolic blood pressure 148 mm[Hg] Dr. Radha Fish Work Phone: [facility] 09-03-2022 08:06-0500 Body mass index (BMI) [Ratio] 24 kg/m2 Dr. Radha Fish Work Phone: [facility] 07-24-2022 15:44-0500 Body temperature 96.9 [degF] Dr. Radha Fish Work Phone: [facility] 07-24-2022 15:44-0500 Body weight 67.[address] Radha Fish Work Phone: [facility] 07-24-2022 15:44-0500 Diastolic blood pressure 82 mm[Hg] Dr. Radha Fish Work Phone: [facility] 07-24-2022 15:44-0500 Heart rate 90 /min Dr. Radha Fish Work Phone: [facility] 07-24-2022 15:44-0500 Respiratory rate 18 /min Dr. Radha Fish Work Phone: [facility] 07-24-2022 15:44-0500 SaO2% (BldA) [Mass fraction] 97 % Dr. Radha Fish Work Phone: [facility] 07-24-2022 15:44-0500 Systolic blood pressure 112 mm[Hg] Dr. Radha Fish Work Phone: [facility] 07-15-2022 11:12-0500 Body height 172.[address] Radha Fish Work Phone: [facility] 07-15-2022 11:12-0500 Body weight 68.[address] Radha Fish Work Phone: [facility] 07-14-2022 07:56-0500 Body mass index (BMI) [Ratio] 22.8 kg/m2 Dr. Radha Fish Work Phone: [facility] 07-03-2022 00:38-0500 Body mass index (BMI) [Ratio] 24 kg/m2 Dr. Radha Fish Work Phone: [facility] 06-13-2022 10:52-0500 Body height 172.[address] Radha Fish Work Phone: [facility] Work Phone: 06-13-2022 10:52-0500 Body mass index (BMI) [Ratio] 23.2 kg/m2 Dr. Radha Fish Work Phone: [facility] 06-13-2022 10:52-0500 Body temperature 96.8 [degF] Dr. Radha Fish Work Phone: [facility] 06-13-2022 10:52-0500 Body weight 69.[address] Radha Fish Work Phone: [facility] 06-13-2022 10:52-0500 Diastolic blood pressure 68 mm[Hg] Dr. Radha Fish Work Phone: [facility] 06-13-2022 10:52-0500 Heart rate 125 /min Dr. Radha Fish Work Phone: [facility] 06-13-2022 10:52-0500 Respiratory rate 16 /min Dr. Radha Fish Work Phone: [facility] 06-13-2022 10:52-0500 SaO2% (BldA) [Mass fraction] 95 % Dr. Radha Fish Work Phone: [facility] 06-13-2022 10:52-0500 Systolic blood pressure 108 mm[Hg] Dr. Radha Fish Work Phone: [facility] 06-03-2022 09:31-0400 Body mass index (BMI) [Ratio] 24 kg/m2 Dr. Radha Fish Work Phone: [facility] 05-02-2022 20:40-0400 Body mass index (BMI) [Ratio] 24 kg/m2 Dr. Radha Fish Work Phone: [facility] 04-10-2022 10:07-0400 Body height 172.[address] Radha Fish Work Phone: [facility] Work Phone: 04-10-2022 10:06-0400 Body mass index (BMI) [Ratio] 22.8 kg/m2 Dr. Radha Fish Work Phone: [facility] Work Phone: 04-10-2022 10:06-0400 Body weight 68.[address] Radha Fish Work Phone: [facility] Work Phone: 04-10-2022 10:06-0400 Diastolic blood pressure 70 mm[Hg] Dr. Radha Fish Work Phone: [facility] Work Phone: 04-10-2022 10:06-0400 Heart rate 87 /min Dr. Radha Fish Work Phone: [facility] Work Phone: 04-10-2022 10:06-0400 Respiratory rate 18 /min Dr. Radha Fish Work Phone: [facility] Work Phone: 04-10-2022 10:06-0400 SaO2% (BldA) [Mass fraction] 98 % Dr. Radha Fish Work Phone: [facility] Work Phone: 04-10-2022 10:06-0400 Systolic blood pressure 110 mm[Hg] Dr. Radha Fish Work Phone: [facility] Work Phone: 04-02-2022 22:48-0400 Body mass index (BMI) [Ratio] 24 kg/m2 Dr. Radha Fish Work Phone: [facility] Work Phone: 03-02-2022 02:11-0400 Body mass index (BMI) [Ratio] 24 kg/m2 Dr. Radha Fish Work Phone: [facility] Work Phone: 02-07-2022 10:56-0400 Body height 172.[address] Radha Fish Work Phone: [facility] Work Phone: 02-07-2022 10:56-0400 Body mass index (BMI) [Ratio] 22.8 kg/m2 Dr. Radha Fish Work Phone: [facility] Work Phone: 02-07-2022 10:56-0400 Body temperature 96.4 [degF] Dr. Radha Fish Work Phone: [facility] Work Phone: 02-07-2022 10:56-0400 Body weight 68.[address] Radha Fish Work Phone: [facility] Work Phone: 02-07-2022 10:56-0400 Diastolic blood pressure 60 mm[Hg] Dr. Radha Fish Work Phone: [facility] Work Phone: 02-07-2022 10:56-0400 Heart rate 50 /min Dr. Radha Fish Work Phone: [facility] Work Phone: 02-07-2022 10:56-0400 Respiratory rate 16 /min Dr. Radha Fish Work Phone: [facility] Work Phone: 02-07-2022 10:56-0400 SaO2% (BldA) [Mass fraction] 97 % Dr. Radha Fish Work Phone: [facility] Work Phone: 02-07-2022 10:56-0400 Systolic blood pressure 104 mm[Hg] Dr. Radha Fish Work Phone: [facility] Work Phone: 01-01-2022 00:08-0400 Body mass index (BMI) [Ratio] 24 kg/m2 Dr. Radha Fish Work Phone: [facility] Work Phone: 11-01-2021 00:08-0400 Body mass index (BMI) [Ratio] 24 kg/m2 Dr. Radha Fish Work Phone: [facility] Work Phone: 10-08-2021 09:59-0500 Body height 172.[address] Radha Fish Work Phone: [facility] Work Phone: 10-08-2021 09:59-0500 Body temperature 97.3 [degF] Dr. Radha Fish Work Phone: [facility] Work Phone: 10-08-2021 09:59-0500 Diastolic blood pressure 74 mm[Hg] Dr. Radha Fish Work Phone: [facility] Work Phone: 10-08-2021 09:59-0500 Heart rate 85 /min Dr. Radha Fish Work Phone: [facility] Work Phone: 10-08-2021 09:59-0500 Respiratory rate 18 /min Dr. Radha Fish Work Phone: [facility] Work Phone: 10-08-2021 09:59-0500 SaO2% (BldA) [Mass fraction] 98 % Dr. Radha Fish Work Phone: [facility] Work Phone: 10-08-2021 09:59-0500 Systolic blood pressure 120 mm[Hg] Dr. Radha Fish Work Phone: [facility] Work Phone: 09-20-2021 10:18-0500 Body temperature 97.3 [degF] Dr. Radha Fish Work Phone: [facility] Work Phone: 09-20-2021 10:18-0500 Diastolic blood pressure 67 mm[Hg] Dr. Radha Fish Work Phone: [facility] Work Phone: 09-20-2021 10:18-0500 Heart rate 91 /min Dr. Radha Fish Work Phone: [facility] Work Phone: 09-20-2021 10:18-0500 Respiratory rate 18 /min Dr. Radha Fish Work Phone: [facility] Work Phone: 09-20-2021 10:18-0500 SaO2% (BldA) [Mass fraction] 97 % Dr. Radha Fish Work Phone: [facility] Work Phone: 09-20-2021 10:18-0500 Systolic blood pressure 118 mm[Hg] Dr. Radha Fish Work Phone: [facility] Work Phone: 09-17-2021 09:37-0500 Body weight 67.[address] Radha Fish Work Phone: [facility] Work Phone: 09-02-2021 21:51-0500 Body mass index (BMI) [Ratio] 24 kg/m2 Dr. Radha Fish Work Phone: [facility] Work Phone: 08-28-2021 17:28-0500 Body temperature 97.4 [degF] Dr. Radha Fish Work Phone: [facility] Work Phone: 08-28-2021 17:28-0500 Diastolic blood pressure 54 mm[Hg] Dr. Radha Fish Work Phone: [facility] Work Phone: 08-28-2021 17:28-0500 Heart rate 67 /min Dr. Radha Fish Work Phone: [facility] Work Phone: 08-28-2021 17:28-0500 Respiratory rate 18 /min Dr. Radha Fish Work Phone: [facility] Work Phone: 08-28-2021 17:28-0500 SaO2% (BldA) [Mass fraction] 96 % Dr. Radha Fish Work Phone: [facility] Work Phone: 08-28-2021 17:28-0500 Systolic blood pressure 127 mm[Hg] Dr. Radha Fish Work Phone: [facility] Work Phone: 08-28-2021 12:47-0500 Body mass index (BMI) [Ratio] 23.6 kg/m2 Dr. Radha Fish Work Phone: [facility] Work Phone: 08-28-2021 12:47-0500 Body weight 70.[address] Radha Fish Work Phone: [facility] Work Phone: 08-04-2021 03:03-0500 Body mass index (BMI) [Ratio] 24 kg/m2 Dr. Radha Fish Work Phone: [facility] Work Phone: 07-11-2021 13:05-0500 Body weight 70.[address] Radha Fish Work Phone: [facility] Work Phone: 07-11-2021 13:05-0500 Diastolic blood pressure 68 mm[Hg] Dr. Radha Fish Work Phone: [facility] Work Phone: 07-11-2021 13:05-0500 Heart rate 104 /min Dr. Radha Fish Work Phone: [facility] Work Phone: 07-11-2021 13:05-0500 Respiratory rate 16 /min Dr. Radah Fish Work Phone: [facility] Work Phone: 07-11-2021 13:05-0500 Systolic blood pressure 108 mm[Hg] Dr. Radha Fish Work Phone: [facility] Work Phone: 12-21-2020 14:53-0400 Body mass index (BMI) [Ratio] 24 kg/m2 Dr. Radha Fish Work Phone: [facility] Work Phone: Encounters Encounter Date Encounter Type Care Provider Facility Start: 05-15-2025 ambulatory Radha Rochai ty:[facility] Start: 05-14-2025 ambulatory Fabiana Anderson Facility:[facility] Start: 05-14-2025 End: 05-14-2025 Evaluation and management of inpatient Fabiana Anderson Facility:[facility] Start: 05-09-2025 ambulatory Hughosman Fish Josefinai ty:[facility] Start: 05-09-2025 End: 05-09-2025 Carla TRUJILLOC -[facility] Work Phone: Start: 05-09-2025 End: 05-09-[address] Radha Fish MD Work Phone: -[facility] Start: 05-02-2025 Eun ferris PA -[facility] Work Phone: Start: 05-02-2025 ambulatory Radha Walker ty:[facility] Start: 04-14-2025 End: 04-14-[address] Radha Fish MD Work Phone: -Radiology [facility] Start: 04-14-2025 End: 04-14-2025 Eun Lloyd PA -Radiology [facility] Work Phone: Start: 04-14-2025 End: 04-14-2025 Eun Lloyd PA -[facility] Work Phone: Start: 04-14-2025 End: 04-14-[address] Radha Fish MD Work Phone: -[facility] Start: 04-14-2025 End: 04-14-2025 ambulatory Radha Fish Facility:[facility] Start: 04-09-2025 End: 04-09-[address] Radha Fish MD Work Phone: -[facility] Start: 04-09-2025 End: 04-09-2025 Dheeraj Rene [employer]-C -[facility] Work Phone: Start: 04-09-2025 End: 04-09-2025 ambulatory Radha Fish Facility:[facility] Start: 03-20-2025 End: 03-20-[address] Radha Fish MD Work Phone: -[facility]atory [facility] Start: 03-20-2025 End: 03-20-2025 Carla Coughlin NP-C -Laboratory Specime n Work Phone: Start: 03-20-2025 End: 03-20-2025 Carla Coughlin NP-C -[facility] Medicine Work Phone: Start: 03-20-2025 End: 03-20-[address] Radha Fish MD Work Phone: -[facility] Start: 03-20-2025 End: 03-20-2025 ambulatory Hughbeelisa Fish Facility:[facility] Start: 03-03-2025 ambulatory Radha Fish Facili ty:[facility] Start: 03-01-2025 End: 03-01-[address] Radha Fish MD Work Phone: -[facility] Start: 03-01-2025 End: 03-01-2025 Dr. Radha Fish MD -[facility] Start: 03-01-2025 End: 03-01-2025 Dr. Radha Fish MD -[facility] Work Phone: Start: 03-01-2025 End: 03-01-[address] Radha Fish MD Work Phone: -[facility] Start: 03-01-2025 End: 03-01-2025 ambulatory Radha Fish Facility:[facility] Start: 02-23-2025 End: 02-23-2025 Carla Coughlin [employer]-C -[facility] Work Phone: Start: 02-23-2025 End: 02-23-[address] Radha Fish MD Work Phone: -[facility] Start: 02-22-2025 End: 02-22-2025 Eun Lloyd PA -[facility] Work Phone: Start: 02-22-2025 End: 02-22-[address] Radha Fish MD Work Phone: -[facility] Start: 02-21-2025 ambulatory Radha Walker ty:[facility] Start: 02-13-2025 End: 03-02-2025 Dr. Radha Fish MD -Home Health Lab Start: 02-13-2025 End: 03-02-[address] Radha Fish MD Work Phone: -Home Health Lab Start: 02-10-2025 ambulatory Radha Walker ty:[facility] Start: 01-31-2025 End: 02-08-2025 Evaluation and management of inpatient LISA FISH Facility:[facility] Start: 01-30-2025 End: 01-31-2025 Dr. [facility] Work [facility]: Start: 01-30-2025 End: 01-31-2025 Emergency department patient visit Dr. Radha iFsh MD Work Phone: -Emergency Department Work Phone: Start: 01-30-2025 End: 01-30-[address] Radha Fish MD Work Phone: -Radiology [facility] Start: 01-30-2025 End: 01-30-2025 Patient encounter procedure Tammie Pillai CABLE [employer]-C -Radiology [facility] Work Phone: Start: 01-30-2025 End: 01-30-2025 Tammie Pillai CABLE [employer] TE[employer]-C -Radiology [facility] Work Phone: Start: 01-30-2025 End: 01-30-2025 ambulatory Radha Fish Facility:[facility] Start: 01-10-2025 End: 01-30-2025 Discharged Recurring Eun Lloyd PA -[facility] Start: 01-10-2025 End: 01-30-2025 Eun Lloyd PA -[facility] Start: 01-10-2025 End: 01-30-[address] Radha Fish MD Work Phone: -[facility] Start: 01-05-2025 End: 01-05-2025 Patient encounter procedure Eun FLORES -[facility] Work Phone: Start: 01-05-2025 End: 01-05-2025 Eun FLORES -[facility] Work Phone: Start: 01-05-2025 End: 01-05-[address] Radha Fish MD Work Phone: [facility] Work Phone: Start: 12-02-2024 End: 12-02-2024 Discharged Recurring Eun Lloyd PA -Laboratory Work Phone: Start: 12-02-2024 End: 12-02-2024 Eun Lloyd PA -Laboratory Work Phone: Start: 12-02-2024 End: 12-02-[address] Radha Fish MD Work Phone: [facility] Work Phone: Start: 11-02-2024 End: 11-30-2024 Discharged Recurring Eun Lloyd PA -[facility] Start: 11-02-2024 End: 11-30-2024 Eun Lloyd PA -[facility] Start: 11-02-2024 End: 11-30-2024 ambulatory [facility] Facility:[facility] Start: 10-26-2024 End: 10-26-2024 Patient encounter procedure Eun FLORES -[facility] Work Phone: Start: 10-26-2024 End: 10-26-2024 Eun FLORES -[facility] Work Phone: Start: 10-26-2024 End: 10-26-2024 ambulatory [facility] Start: 10-06-2024 End: 10-31-2024 Discharged Recurring Eun FLORES -Laboratory, [facility] Start: 10-06-2024 End: 10-31-[address] Radha Fish MD Work Phone: [facility] Work Phone: Start: 09-12-2024 End: 09-30-2024 Discharged Recurring Eun FLOERS -Laboratory, [facility] Start: 09-12-2024 End: 09-30-2024 ambulatory [facility] Facility:[facility] Start: 09-01-2024 End: 09-01-[address] Radha Fish MD -Laboratory, [facility] Start: 09-01-2024 End: 09-01-[address] Radha Fish MD -[facility] Work Phone: Start: 09-01-2024 End: 09-01-2024 ambulatory [facility] Start: 09-01-2024 End: 09-01-2024 ambulatory [facility] Facility:[facility] Start: 08-15-2024 End: 09-02-2024 Discharged Recurring Eun FLORES -Laboratory, [facility] Start: 08-15-2024 End: 09-02-2024 ambulatory [facility] Facility:[facility] Start: 08-01-2024 End: 08-02-2024 Discharged Recurring Eun AguileraLaboratory, [facility] Start: 08-01-2024 End: 08-02-2024 ambulatory [facility] Facility:[facility] Start: 06-29-2024 End: 07-02-2024 ambulatory [facility] Facility:[facility] Start: 05-26-2024 End: 05-26-2024 ambulatory [facility] Facility:[facility] Start: 03-01-2024 End: 03-01-2024 Patient encounter procedure Reno Dukes MD Work Phone: Cardiology Comment on above: Chronic diastolic he art failure (HCC) (Primary Dx); Atrial fibrillation, chronic (HCC); Tricuspid valve insufficiency, unspecified etiology Start: 12-24-2023 End: 12-24-2023 ambulatory [facility] Work Phone: Cardiology Comment on above: Holter Monitor Appli cation (24-HR) Start: 12-24-2023 End: 12-24-2023 Patient encounter procedure Danny Edmond MD Work Phone: Cardiology Comment on above: Atrial fibrillation, persistent (HCC) (Primary Dx); Other forms of angina pectoris (HCC); Chronic diastolic CHF (congestive heart failure) (HCC) Start: 12-02-2023 Telephone encounter Danny silveira MD Work Phone: Cardiology Comment on above: [facility] Atrial fibrillation, unspecified type (HCC) (Primary Dx) Start: 11-18-2023 Non-patient / Non-visit Dr. Elina Fish Work Phone: [facility] Start: 11-17-2023 End: 11-17-[address] Radha Fish Work Phone: [facility] Work Phone: Start: 11-17-2023 End: 11-17-[address] Radha Fish Work Phone: [facility]-Pulmonary Services/Neurology Work Phone: Start: 11-16-2023 End: 12-01-[address] Radha Fish Work Phone: [facility] Work Phone: Start: 11-16-2023 End: 12-01-[address] [facility] Start: 11-16-[address] [facility] Start: 10-19-2023 End: 10-31-[address] Radha Fish Work Phone: [facility] Work Phone: Start: 10-19-2023 End: 10-31-[address] [facility] Start: 10-05-2023 End: 10-05-[address] Radha Fish Work Phone: [facility] Work Phone: Start: 09-29-2023 Non-patient / Non-visit Dr. Elina Fihs Work Phone: [facility] Start: 09-29-2023 End: 09-29-[address] Radha Fish Work Phone: [facility] Work Phone: Start: 09-29-2023 End: 09-29-[address] [facility] Start: 09-21-2023 End: 10-01-[address] Radha Fish Work Phone: [facility] Work Phone: Start: 09-21-2023 End: 10-01-[address] [facility] Start: 08-31-2023 End: 08-31-[address] Radha Fish Work Phone: [facility] Work Phone: Start: 08-31-2023 End: 08-31-[address] [facility] Start: 07-21-2023 End: 07-21-[address] Radha Fish Work Phone: [facility] Work Phone: Start: 07-15-2023 End: 08-02-[address] Rad[facility] [place] Start: 07-15-2023 End: 07-15-[address] Radha Fish Work Phone: [facility] Work Phone: Start: 06-18-2023 End: 07-02-[address] [facility] Start: 05-29-2023 End: 05-29-2023 ambulatory [facility] Work Phone: Start: 05-29-2023 End: 05-29-2023 [facility] Start: 04-17-2023 End: 04-17-[address] Radha Fish Work Phone: [facility] Work Phone: Start: 04-17-2023 End: 04-17-[address] [facility] Start: 04-17-[address] Kristen [facility] Start: 03-18-2023 End: 04-02-[address] Radha Fish Work Phone: [facility] Work Phone: Start: 03-18-2023 End: 04-02-[address] [facility] Start: 02-12-2023 End: 03-02-[address] [facility] Start: 02-12-2023 End: 03-02-[address] Radha Fish Work Phone: [facility] Work Phone: Start: 02-12-2023 End: 02-12-[address] Radha Fish Work Phone: [facility]-Outpatient Bone Densitometry Work Phone: Start: 01-28-2023 End: 01-28-[address] Radha Fish Work Phone: [facility] Work Phone: Start: 01-23-2023 End: 01-30-[address] Radha Fish Work Phone: [facility] Work Phone: Start: 01-23-2023 End: 01-30-[address] Radha Fish Work Phone: [facility]-Laboratory, [facility] Start: 01-23-2023 End: 01-23-[address] Radha Fish Work Phone: [facility] Internal Medicine Work Phone: Start: 01-06-2023 End: 01-06-[address] Radha Fish Work Phone: [facility] Work Phone: Start: 01-06-2023 End: 01-06-[address] Radha Fish Work Phone: [facility]-Pulmonary Services/Neurology Start: 01-01-[address] [facility] Start: 01-01-2023 End: 01-01-[address] Radha Fish Work Phone: [facility] Start: 12-04-2022 End: 12-31-[address] Radha Fish Work Phone: [facility] Work Phone: Start: 12-04-2022 End: 12-31-[address] [facility] Start: 10-31-2022 End: 10-31-[address] Radha Fish Work Phone: [facility] Work Phone: Start: 10-31-2022 End: 10-31-[address] [facility] Start: 10-15-2022 End: 10-15-[address] Radha Fish Work Phone: [facility] Start: 10-15-2022 End: 10-15-[address] Radha Fish Work Phone: [facility] Start: 09-26-2022 End: 09-26-[address] Radha Fish Work Phone: [facility] Work Phone: Start: 09-26-2022 End: 09-26-[address] [facility] Start: 09-26-[address] Kristen [facility] Start: 09-18-2022 End: 09-18-[address] Radha Fish Work Phone: [facility] Work Phone: Start: 09-18-2022 End: 09-18-[address] Radha Fish Work Phone: [facility] Internal [facility] Start: 08-21-2022 End: 08-21-[address] Radha Fish Work Phone: [facility] Work Phone: Start: 08-21-2022 End: 08-21-[address] [facility] Start: 08-08-2022 End: 08-08-[address] Radha Fish Work Phone: [facility] Start: 07-24-2022 End: 07-24-[address] Radha Fish Work Phone: [facility] Internal [facility] Start: 07-15-2022 Non-patient / Non-visit Dr. Elina Fish Work Phone: [facility] Start: 07-15-2022 End: 07-15-2022 Admission to same day surgery center Dr. Radha Fish Work Phone: [facility]-Religious Healer/Special Procedures Start: 07-11-2022 Non-patient / Non-visit Dr. Elina Fish Work Phone: [facility] Start: 07-10-2022 End: 07-10-[address] Radha Fish Work Phone: [facility] Work Phone: Start: 07-10-2022 End: 07-10-[address] Radha Fish Work Phone: [facility] Heart Group Start: 06-13-2022 End: 07-02-[address] Radha Fish Work Phone: [facility]-Laboratory, [facility] Start: 06-13-[address] Kristen [facility] Start: 06-13-2022 End: 06-13-[address] Radha Fish Work Phone: [facility] Internal Medicine Start: 06-10-2022 Non-patient / Non-visit Dr. Elina Fish Work Phone: [facility] Start: 06-10-2022 End: 06-10-[address] Radha Fish Work Phone: [facility] Work Phone: Start: 06-10-2022 End: 06-10-[address] Radha Fish Work Phone: [facility]-Cardiovascular Services Start: 05-27-2022 End: 05-27-[address] Radha Fish Work Phone: [facility] Work Phone: Start: 05-27-2022 End: 05-27-[address] [facility] Start: 04-21-2022 End: 04-21-[address] Radha Fish Work Phone: [facility]-Pulmonary Services/Neurology Start: 04-14-2022 End: 04-14-[address] [facility] Start: 04-10-2022 End: 04-10-[address] Radha Fish Work Phone: [facility] Work Phone: Start: 04-10-2022 End: 04-10-[address] Radha Fish Work Phone: [facility] Heart [facility] Start: 04-01-2022 End: 04-01-[address] Radha Fish Work Phone: [facility] Work Phone: Start: 04-01-2022 End: 04-01-[address] [facility] Start: 02-07-2022 End: 03-02-[address] Rad[facility] Start: 02-07-[address] Kristen Fish [facility] Start: 02-07-2022 End: 02-07-[address] Radha Fish Work Phone: [facility] Internal Medicine Start: 01-16-2022 End: 03-02-[address] Rad[facility] Start: 12-17-2021 End: 12-31-[address] Rad[facility] Start: 12-03-2021 End: 12-03-[address] Radha Fish Work Phone: [facility] Start: 11-25-2021 End: 11-25-[address] Radha Fish Work Phone: [facility] Start: 11-18-2021 End: 11-18-[address] Radha Fish Work Phone: [facility] Start: 10-28-2021 End: 10-28-[address] Radha Fish Work Phone: [facility] Start: 10-08-2021 End: 10-31-[address] Radha Fish Work Phone: [facility], [place] Start: 10-08-2021 End: 10-08-[address] Radha Fish Work Phone: [facility] Internal Medicine Start: 09-26-2021 End: 09-26-[address] Radha Fish Work Phone: [facility] Start: 09-24-2021 End: 09-24-[address] Radha Fish Work Phone: [facility] Heart Group [facility] Start: 09-03-2021 End: 09-20-2021 Evaluation and management of inpatient Dr. Radha Fish Work Phone: [facility]-Transitional Care Unit Start: 08-28-2021 End: 08-28-2021 Emergency department patient visit Dr. Radha Fish Work Phone: [facility]-Emergency Department Start: 08-06-2021 End: 08-06-[address] Radha Fish Work Phone: [facility] Start: 08-05-2021 End: 09-02-[address] Radha Fish Work Phone: [facility]-Laboratory Start: 07-15-[address] Radha Fish Work Phone: [facility]-Pulmonary Services/Neurology Start: 07-11-2021 End: 07-11-[address] Radha Fish Work Phone: [facility] Start: 01-22-2018 Ambulatory [facility] Facility :[facility] Start: 10-22-2017 End: 10-22-2017 Ambulatory [facility] Facility:[facility] Start: 10-12-2017 End: 10-12-2017 Ambulatory [facility] Facility:[facility] Start: 10-09-2017 End: 10-09-2017 Ambulatory [facility] Facility:[facility] Start: 06-11-2017 End: 06-11-2017 [facility] Facility:[facility] Procedures Date Procedure Procedure Detail Performing Clinician Start: 04-14-2025 Blood count smear mc rscp w/mnl difrntl wbc count Dr. Radha Fish MD Work Phone: Start: 04-14-2025 Mean corpuscular hem oglobin concentration determination Dr. Radha Fish MD Work Phone: Start: 04-14-[address] Elina Fish MD Work Phone: Start: 04-14-2025 Nucleated red blood cell count procedure Dr. Radha Fish MD Work Phone: Start: 04-14-2025 Platelet mean volume determination Dr. Radha Fish MD Work Phone: Start: 04-14-2025 Total cholesterol:HD L ratio measurement Dr. Radha Fish MD Work Phone: Start: 04-14-[address] Radha Fish MD Work Phone: Start: 04-14-2025 Radiologic exam ches t [address] Radha Fish MD Work Phone: Start: 04-10-[address] Kristen Fish MD Work Phone: Start: 03-20-[address] Kristen Fish MD Work Phone: Start: 02-13-2025 Mean corpuscular hem oglobin concentration determination Dr. Radha Fish MD Work Phone: Start: 02-13-2025 Platelet mean volume determination Dr. Radha Fish MD Work Phone: Start: 01-31-2025 Antibody screen LISA FISH Comment on above: Order Comment: Speci men Type: BLOOD SPECIMENOrdering Facility: [facility] Address: [address] [place] [address] Performed By: #### T SCR ####[facility] BLOOD BANKCLIA [id number] [place] [address] [place] Start: 01-30-2025 Urine microscopy: red cells Dr. Radha Fish MD Work Phone: Start: 01-30-2025 Urnls dip stick/tabl et reagent auto microscopy Dr. Radha Fish MD Work Phone: Start: 01-30-2025 Computed tomography of abdomen and pelvis with intravenous contrast Dr. Radha Fish MD Work Phone: Start: 01-30-2025 Blood count smear mc rscp w/mnl difrntl wbc count Dr. Radha Fish MD Work Phone: Start: 01-30-[address] Radha Fish MD Work Phone: Start: 01-30-2025 Mean corpuscular hem oglobin concentration determination Dr. Radha Fish MD Work Phone: Start: 01-30-[address] Elina Fish MD Work Phone: Start: 01-30-2025 Nucleated red blood cell count procedure Dr. Radha Fish MD Work Phone: Start: 01-30-2025 Platelet mean volume determination Dr. Radha Fish MD Work Phone: Start: 01-30-2025 [address] lipa se measurement Dr. Radha Fish MD Work Phone: Start: 01-30-2025 Blood count smear mc rscp w/mnl difrntl wbc count Dr. Radha Fish MD Work Phone: Start: 01-30-2025 Calculation of inter national normalized ratio Dr. Radha Fish MD Work Phone: Start: 01-30-2025 Mean corpuscular hem oglobin concentration determination Dr. Radha Fish MD Work Phone: Start: 01-30-[address] Elina Fish MD Work Phone: Start: 01-30-2025 Nucleated red blood cell count procedure Dr. Radha Fish MD Work Phone: Start: 01-30-2025 Platelet mean volume determination Dr. Radha Fish MD Work Phone: Start: 06-30-2025 X-ray of chest, PA a nd lateral views Dr. Radha Fish MD Work Phone: Start: 01-10-2025 Calculation of inter national normalized ratio Dr. Radha Fish MD Work Phone: Start: 12-02-[address] Radha Fish MD Work Phone: Start: 12-02-2024 Calculation of inter national normalized ratio Dr. Radha Fish MD Work Phone: Start: 12-02-2024 Total cholesterol:HD L ratio measurement Dr. Radha Fish MD Work Phone: Start: 11-02-2024 Calculation of inter national normalized ratio Dr. Radha Fish MD Work Phone: Start: 11-02-[address] Radha Fish MD Work Phone: Start: 11-02-2024 Total cholesterol:HD L ratio measurement Dr. Radha Fish MD Work Phone: Start: 03-01-2024 Echo tthrc r-t 2d w/ wom-mode compl spec&colr d Danny Edmond MD Work Phone: Start: 09-29-2023 Cardiovascular stres s test using pharmacologic stress agent Dr. Radha Fish Work Phone: Start: 02-12-2023 Dual energy X-ray absorptiometry Dr. Radha Fish Work Phone: Start: 09-18-2022 Plain chest X-ray Dr. Sisi Fish Work Phone: Start: 07-10-2022 Plain chest X-ray Dr. Sisi Fish Work Phone: Start: 10-08-[address] Kristen Fish Work Phone: Start: 09-19-2021 SARS-CoV-2 Antigen (Rapid) Dr. Radha Fish Work Phone: Start: 08-28-2021 Radiologic examinati on of knee Dr. Radha Fish Work Phone: Start: 08-28-2021 X-ray of both feet Dr. Radha Fish Work Phone: Plan of Treatment Date Care Activity Detail Author Start: 05-09-2025 [facility] Start: 05-02-2025 -Laborator y [facility] Work Phone: Start: 01-31-2025 [facility] Start: 01-30-2025 [facility] Start: 09-03-2024 Diabetes Screening Diabetes Screenin [facility] Start: 04-03-2024 Influenza vaccination [facility] Start: 03-01-2024 End: 03-01-2024 Patient encounter procedure 03/01/2024 2:15 PM EDT Office Visit Cardiology [address] [place] [address] Reno Dukes MD [address] [place] [address] Dx: Atrial fibrillation, persistent (HCC) [I48.19] Cardiology Comment on above: Dx: Atrial fibrillat ion, persistent (HCC) [I48.19] Start: 03-01-2024 End: 03-01-2024 Patient encounter procedure 03/01/2024 12:30 PM EDT Appointment Cardiology [address] [id number] Dx: Atrial fibrillation, persistent (HCC) [I48.19] Cardiology Comment on above: Dx: Atrial fibrillat ion, persistent (HCC) [I48.19] Start: 12-24-2023 End: 12-24-2023 ambulatory 12/24/2023 12:00 PM EDT Results Only Cardiology [address] [place] [address] DX: AFIB Cardiology Comment on above: DX: AFIB Start: 12-24-2023 End: 12-24-2023 Patient encounter procedure Cardiology Comment on above: DX: AFIB Start: 09-29-2023 Covid-19 Vaccine () Covid-19 Vaccine () [facility] Start: 08-03-2023 Advance Directive Discussion Advance Directive Discussion [facility] Start: 08-03-2023 Behavioral Health Screening Behavioral Health Screening [facility] Start: 07-21-2023 Evaluation of diagno stic study results [facility] Start: 04-03-2023 Covid-19 Vaccine () Covid-19 Vaccine () [facility] Start: 03-24-2016 Urine microalbumin profile DTa P,Tdap,Td Vaccine (1 - Tdap) [facility] Start: 1996 RSV Vaccine (1 - 1-d ose 60+ series) RSV Vaccine (1 - 1-dose 60+ series) [facility] Start: 1986 Shingrix Vaccine (1 of 2) Murphy grix Vaccine (1 of 2) [facility] Start: 1954 Depression Screening Depression Scre ening [facility] Anion gap in Serum o r Plasma [facility] Basic metabolic 2008 panel with ionized calcium - Serum or Plasma [facility] BUN/Creatinine ratio [facility] Calcium [Mass/volume ] in Serum or Plasma [facility] Carbon dioxide, tota l [Moles/volume] in Central venous blood [facility] Cardioversion [facility] Work Phone: Cardioversion [facility] CBC W Auto Different ial panel - Blood [facility] CBC W Auto Different ial panel - Blood [facility] Creatinine [Mass/vol ume] in Serum or Plasma [facility] DXA Bone [Mass/Area] Bone density [facility] DXA Bone [Mass/Area] Bone density [facility] End: 12-01-2024 ECG COMPLETE ECG COMPLETE ECG Routine Atrial fibrillation, unspecified type (HCC) 1 Occurrences starting 12/02/2023 until 12/01/2024 [facility] Work Phone: Comment on above: 1 Occurrences starti ng 12/02/2023 until 12/01/2024 End: 12-23-2024 Echocardiography ECHO Cardiology Routine Atrial fibrillation, persistent (HCC) 1 Occurrences starting 12/24/2023 until 12/23/2024 [facility] Work Phone: Comment on above: 1 Occurrences starti ng 12/24/2023 until 12/23/2024 Glucose [Mass/volume ] in Serum or Plasma [facility] Hepatic function panel [facility] End: 12-23-2024 HOLTER MONITOR 24 HOUR HOLTER MONITOR 24 HOUR ECG Routine Atrial fibrillation, persistent (HCC) 1 Occurrences starting 12/24/2023 until 12/23/2024 [facility] Comment on above: 1 Occurrences starti ng 12/24/2023 until 12/23/2024 Lipid 1996 panel - S abdullahi or Plasma [facility] Measurement of renal function [facility] Patient referral [facility] Work Phone: Potassium measurement [facility] Radionuclide imaging of perfusion of myocardium under exercise stress [facility] Serum chloride measurement [facility] Sodium measurement [facility] Troponin T.cardiac [Mass/volume] in Serum or Plasma by High sensitivity method [facility] Urea nitrogen [Mass/volume] in Serum or Plasma [facility] Urinalysis complete panel - Urine [facility] Vitamin D, 25-hydrox y measurement [facility] XR Chest PA and Lateral [facility] Immunizations Immunization Date Immunization Notes Care Provider [facility] 05-29-2023 influenza virus vacc ine, unspecified formulation Reno Dukes MD Work Phone: [facility] 05-19-2021 Covid (Pfizer) Dr. Radha Fish Work Phone: [facility] 05-19-2021 influenza virus vacc ine, unspecified formulation Danny Edmond MD Work Phone: [facility] 09-20-2020 Covid (Pfizer) Dr. Radha Fish Work Phone: [facility] 08-30-2020 Covid (Pfizer) Dr. Radha Fish Work Phone: [facility] 05-02-2020 influenza, injectabl e, quadrivalent, preservative free Dr. Radha Fish Work Phone: [facility] 05-02-2020 influenza, seasonal, injectable Dr. Radha Fish Work Phone: [facility] 05-02-2020 Fluad Quad [id number](65yr up)(PF) 60 mcg (15 mcg x 4)/0.5mL IM syringe (flu vac Dr. Radha Fish Work Phone: [facility] Work Phone: 05-24-2019 influenza, injectabl e, quadrivalent, preservative free Dr. Radha Fish Work Phone: [facility] 05-24-2019 influenza, seasonal, injectable Dr. Radha Fish Work Phone: [facility] 05-24-2019 Fluad 65yr up(PF)45 mcg(15 mcgx3)/0.5 mL intramuscular syringe (flu vac Dr. Radha Fish Work Phone: [facility] Work Phone: 03-23-2016 tetanus and diphther ia toxoids, adsorbed, preservative free, for adult use (2 Lf of tetanus toxoid and 2 Lf of diphtheria toxoid) Dr. Radha Fish Work Phone: [facility] 05-18-[address] Sid Fish Work Phone: [facility] Work Phone: 05-18-2015 pneumococcal vaccine , unspecified formulation Dr. Radha Fish Work Phone: [facility] 05-09-2015 influenza, high dose seasonal, preservative-free Danny Edmond MD Work Phone: [facility] 05-09-2015 influenza, injectabl e, quadrivalent, preservative free Dr. Radha Fish Work Phone: [facility] 05-09-2015 influenza, seasonal, injectable Dr. Radha Fish Work Phone: [facility] 01-05-2015 pneumococcal conjuga te vaccine, 13 valent Danny Edmond MD Work Phone: [facility] 04-28-2014 influenza, high dose seasonal, preservative-free Danny Edmond MD Work Phone: [facility] 06-14-2012 influenza virus vacc ine, unspecified formulation Danny Edmond MD Work Phone: [facility] 03-30-2012 tetanus and diphther ia toxoids, adsorbed, preservative free, for adult use (2 Lf of tetanus toxoid and 2 Lf of diphtheria toxoid) Danny Edmond MD Work Phone: [facility] Work Phone: 06-25-2004 pneumococcal polysaccharide vaccine, 23 valent Danny Edmond MD Work Phone: [facility] Payers Date Payer Category Payer Self-pay [id number] 2019 Unknown MMO MMO MEDICARE SUPPLEMENT [id number] 2019-Present [phone] [address] [place] [address] Indemnity [id number] 2015 Unknown [id number] 2002 Medicare MEDICARE MEDICAR E A AND B [id number] 2002-Present [phone] [address] [address] [place] [address] Medicare [id number] 2001 Medicare [id number] Medicare [id number] Unknown [id number] 2.16.840.1.962733.3.579.2.462 Unknown [id number] 2.16.840.1.297991.3.579.2.462 Unknown [id number] 2.16.840.1.339079.3.579.2.462 Unknown [id number] 2.16.840.1.443567.3.579.2.462 Unknown [id number] 2.16.840.1.297711.3.579.2.462 Unknown [id number] 2.16.840.1.095219.3.579.2.462 Unknown [id number] 2.16.840.1.408607.3.579.2.462 Unknown [id number] 2.16.840.1.435202.3.579.2.462 Unknown [id number] 2.16.840.1.404389.3.579.2.462 Unknown [id number] 2.16.840.1.544507.3.579.2.462 Unknown [id number] 2.16.840.1.127892.3.579.2.462 Unknown [id number] 2.16.840.1.631218.3.579.2.462 Unknown [id number] 2.16.840.1.381270.3.579.2.462 Unknown [id number] 2.16.840.1.205437.3.579.2.462 Unknown [id number] 2.16.840.1.828542.3.579.2.462 Unknown [id number] 2.16.840.1.143524.3.579.2.462 Unknown [id number] 2.16.840.1.609827.3.579.2.462 Unknown [id number] 2.16.840.1.898471.3.579.2.462 Unknown [id number] 2.16.840.1.252120.3.579.2.462 Unknown [id number] 2.16.840.1.873241.3.579.2.462 Unknown [id number] 2.16.840.1.429229.3.579.2.462 Unknown [id number] 2..840.1.170522.3.579.2.462 Unknown [id number] 2..840.1.636922.3.579.2.462 Unknown [id number] 2.840.1.695290.3.579.2.462 Unknown [id number] 2.840.1.211267.3.579.2.462 Unknown [id number] 2.840.1.817077.3.579.2.462 Unknown [id number] 2.840.1.072521.3.579.2.462 Unknown [id number] 2.840.1.968361.3.579.2.462 Unknown [id number] 2.840.1.468652.3.579.2.462 Unknown [id number] 2.840.1.249936.3.579.2.462 Unknown [id number] 2.840.1.392771.3.579.2.462 Unknown [id number] 2.840.1.384095.3.579.2.462 Unknown [id number] 2..840.1.091181.3.579.2.462 Unknown [id number] 2.16.840.1.434838.3.579.2.462 Unknown [id number] 2.16.840.1.264145.3.579.2.462 Unknown [id number] 2.840.1.281857.3.579.2.462 Social History Date Type Detail Facility Start: 10-08-2021 End: 07-21-2023 Tobacco smoking status NHIS Unknown if ever smoked [facility] Start: 05-15-2015 None [facility] Start: 05-15-2015 Alone [facility] Start: 05-15-2015 Non-smoker [facility] Start: 1935 Sex Assigned At Female [facility] Start: 05-29-2011 End: 03-01-2025 Tobacco smoking status NHIS Never smoked tobacco [facility] Work Phone: Start: 05-29-2011 Tobacco use and exposure Smokeless tobacco non-user [facility] Start: 08-29-2021 End: 03-01-2024 Alcohol intake Current drinker of alcohol (finding) [facility] Start: 08-29-2021 End: 12-24-2023 History of Social function [facility] Start: 08-29-2021 End: 12-24-2023 Tobacco use panel [facility] Adult Depression Screening Assessment 0 [facility] Start: 1935 Sex Assigned At Not on file [facility] Start: 11-01-2024 Sex Female (finding) [facility] Medical Equipment Procedure Code Equipment Code Equipment [...] Functional status Up ad monica [facility] Work Phone: Mental Status Date Assessment Result Facility 09-20-2021 Cognitive function Voice/Name [facility] Work Phone: Clinical Notes 11-18-2023 to 04-17-2025 Note Date & Type Note Facility 04-17-2025 Radiology Diagnostic study note [facility] 02-22-2025 Evaluation note Diagnosis Onset Date Resolution Fatigue acute February 22 12:52pm Right ventricular dilation acute February 22, 2025 12:52pm CKD (chronic kidney disease), stage III chronic February 22 12:52pm 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 chronic February 22, 2025 12:52pm Longstanding persistent atrial fibrillation chronic February 22 12:52pm Pure hypercholesterolemia chronic February 22, 2025 12:52pm Fatigue acute February 23 10:52am Hospital discharge follow-up acute February 23, 2025 10:52am 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 chronic February 23, 2025 10:52am Longstanding persistent atrial fibrillation chronic February 23 10:52am Hematoma of rectus sheath noneactive February 23, 2025 10:52am Insomnia acute March 01 10:52am Hematoma of rectus sheath chronic March 01, 2025 10:52am Hypothyroidism (acquired) chronic March 01, 2025 10:52am Mood disorder chronic March 01, 2025 10:52am Pulmonary hypertension chronic Ju 2024 10:52am UTI (urinary tract infection) acute March 20 10:40am UTI (urinary tract infection) acute April 09, 2025 10:59am Cough acute April 10:21am Right ventricular dilation acute April 14, 2025 10:21am CKD (chronic kidney disease), stage III chronic April 142024 10:21am 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 chronic April 14, 2025 10:21am Longstanding persistent atrial fibrillation chronic April 142024 10:21am Pure hypercholesterolemia chronic April 14, 2025 10:21am Recurrent UTI (urinary tract infection) acute May 09 1:02pm UTI (urinary tract infection) acute May 09 1:02pm [facility] Work Phone: 1(809) 544-985407-09-2025 NoteHNO ID: [id number] Author: STEVE GONZALEZ, LISBET Service: Care Management Author Type: Registered Nurse Type: Care Mgt Progress Note Filed: 02/09/2025 07:39 Note Text: CARE MANAGEMENT DISCHARGE NOTE SERVICE DATE: February 09, 2025 SERVICE TIME: 737 Admission Date: 01/31/2025 LOS: 8 days Discharge Arrangement Discharge Arrangement: Home with Home Health Services Arranged Medical Services: Skilled Home Health Care Type: Home Health Agency, [facility], Physical Therapy, Occupational Therapy Provider Name: Dr. Fish Caregiver Assessment Caregiver is ready, willing and able to meet the patient's needs as recommended by the inter-professional team: Yes Name of Caregiver: [facility] Home Health Transportation Arrangements Transportation Arrangements: Car Handoff Communication: Additional Information: Discharge Information Row Name ED to Hosp-Admission (Discharged) from 01/31/2025 in [facility] Care Agency [facility] Home Care Start of Care 02/09/25 Patient discharged last evening to home with [facility] HC. Order and DC summary sent to agency. Patient arranged transport home with a friend. SIGNATURE: Steve Gonzalez RN PATIENT NAME: Ana Maria Avalos DATE: February 09, 2025 TIME: 7:38 [facility]07-09-2025 NoteHNO ID: [id number] Author: STEVE GONZALEZ RN Service: Care Management Author Type: Registered Nurse Type: Care Mgt Progress Note Filed: 02/08/2025 15:05 Note Text: CARE MANAGEMENT PROGRESS NOTE SERVICE DATE: 02/08/2025 SERVICE TIME: 1504 LOS: 8 days Needs Prior to Discharge: To Be Determined [facility] can accept and do SOC tomorrow. Patient informed and agreeable. Home care order sent. SIGNATURE: Steve Gonzalez RN PATIENT NAME: Ana Maria Avalos DATE: February 08, 2025 TIME: 3:04 [facility]07-09-2025 NoteHNO ID: [id number] Author: STEVE GONZALEZ RN Service: Care Management Author Type: Registered Nurse Type: Care Mgt Progress Note Filed: 02/08/2025 10:42 Note Text: CARE MANAGEMENT PROGRESS NOTE SERVICE DATE: 02/08/2025 SERVICE TIME: 1040 LOS: 8 days Needs Prior to Discharge: To Be Determined Chart reviewed. Informed patient that [facility] can draw INR labs if she discharges on coumadin. Patient requested referral to [facility] after discussing home care with friend. Referral sent. Awaiting ECHO. CM will continue to follow. SIGNATURE: Steve Gonzalez RN PATIENT NAME: Ana Maria Avalos DATE: February 08, 2025 TIME: 10:40 [facility]07-08-2025 NoteHNO ID: [id number] Author: HIMANSHU DECKER DO Service: Hospital Medicine Author Type: Physician Type: Progress Notes Filed: 02/07/2025 16:53 Note Text: DEPARTMENT OF HOSPITAL MEDICINE PROGRESS NOTE SERVICE DATE: 02/07/2025 SERVICE TIME: 4:45 PM Hospital Medicine/Primary Attending: Himanshu Decker DO NIGHT AND WEEKEND COVERAGE: After 7pm please page [phone] SUBJECTIVE: Patient seen examined at bedside. Reports [...] reviewed for today's visit: CBC: Recent Labs 02/07/25 0457 WBC 4.83 RBC 3.38* HB 10.8* HCT [...] subcu heparin Disposition: Home (more content not included)...[facility] 02-07-2025 NoteHNO ID: [id number] Author: STEVE GONZALEZ RN Service: Care Management Author Type: Registered Nurse Type: Care Mgt Progress Note Filed: 02/07/2025 15:51 Note Text: CARE MANAGEMENT PROGRESS NOTE SERVICE DATE: 02/07/2025 SERVICE TIME: 1550 LOS: 7 days Needs Prior to Discharge: To Be Determined, Home Care Order Chart reviewed. Informed patient that [facility] can accept. Patient is agreeable to use [employer]. Will need home care order placed prior to discharge. SIGNATURE: Steve Gonzalez RN PATIENT NAME: Ana Maria Avalos DATE: February 07, 2025 TIME: 3:50 [facility]07-08-2025 NoteHNO ID: [id number] Author: CARMELITA LOCKETT APRN.CNP Service: Hospital Medicine Author Type: Nurse [...] of increasing redness or signs of infection. Carmelita Lockett APRN-NEISHA ([facility], pager # [phone])[facility]07-07-2025 NoteHNO ID: [id number] Author: HIMANSHU DECKER DO Service: Hospital Medicine Author Type: Physician Type: Progress Notes Filed: 02/06/2025 17:38 Note Text: DEPARTMENT OF HOSPITAL MEDICINE PROGRESS NOTE SERVICE DATE: 02/06/2025 SERVICE TIME: 5:26 PM Hospital Medicine/Primary Attending: Himanshu Decker DO NIGHT AND WEEKEND COVERAGE: After 7pm please page [phone] SUBJECTIVE: Patient seen examined at bedside. No [...] mcg daily VTE Prophyla (more content not included)...[facility] 02-06-2025 NoteHNO ID: [id number] Author: STEVE GONZALEZ RN Service: Care Management [...] No preferred agency named. Referral sent to [facility] to see if they can accept and service will continue to follow. SIGNATURE: Steve Gonzalez RN PATIENT NAME: Ana Maria Avalos DATE: February 06, 2025 TIME: 12:46 [facility]07-06-2025 NoteHNO ID: [id number] Author: HIMANSHU DECKER DO Service: Hospital Medicine Author Type: Physician Type: Progress Notes Filed: 02/05/2025 14:16 Note Text: DEPARTMENT OF HOSPITAL MEDICINE PROGRESS NOTE SERVICE DATE: 02/05/2025 SERVICE TIME: 2:08 PM Hospital Medicine/Primary Attending: Himanshu Decker DO NIGHT AND WEEKEND COVERAGE: After 7pm please page [phone] SUBJECTIVE: Patient seen and examined at bedside. [...] NM +BS, bruising over right flank, smaller wiyot of demarcated bruising over left flank, noticed [...] subcu heparin Disposition: Home (more content not included)...[facility]07-05-2025 NoteHNO ID: [id number] Author: HIMANSHU DECKER DO Service: Hospital Medicine Author Type: Physician Type: Progress Notes Filed: 02/04/2025 15:18 Note Text: DEPARTMENT OF HOSPITAL MEDICINE PROGRESS NOTE SERVICE DATE: 02/04/2025 SERVICE TIME: 3:13 PM Hospital Medicine/Primary Attending: Himanshu Decker DO NIGHT AND WEEKEND COVERAGE: After 7pm please page [phone] SUBJECTIVE: Patient seen examined at bedside, no [...] NM +BS, bruising over right flank, smaller wiyot of demarcated bruising over left flank Neuro- [...] fibrillation (HCC) (POA: Ye (more content not included)...[facility]07-04-2025 NoteHNO ID: [id number] Author: HIMANSHU DECKER DO Service: Hospital Medicine Author Type: Physician Type: Progress Notes Filed: 02/03/2025 08:39 Note Text: DEPARTMENT OF HOSPITAL MEDICINE PROGRESS NOTE SERVICE DATE: 02/03/2025 SERVICE TIME: 8:36 AM Hospital Medicine/Primary Attending: Himanshu Decker DO NIGHT AND WEEKEND COVERAGE: After 7pm please page [phone] SUBJECTIVE: Patient seen examined at bedside. No [...] reviewed for today's visit: CBC: Recent Labs 02/03/25 0330 WBC 7.06 RBC 3.57* HB 11.2* HCT [...] (POA: Yes) This note was generated using Standing Cloud voice dictation. All reasonable efforts were made to correct dictation errors. SIGNATURE: Himanshu Decker DO PATIENT NAME: Ana Maria Avalos DATE: February 03, 2025 TIME: 8:36 (more content not included)...[facility]07-03-2025 NoteHNO ID: [id number] Author: PILAR MACIAS MD Service: General Surgery [...] Pilar Macias MD February 02, 2025 2:46 [facility]07-03-2025 NoteHNO ID: [id number] Author: HIMANSHU DECKER DO Service: Hospital Medicine Author Type: Physician Type: Progress Notes Filed: 02/02/2025 13:15 Note Text: DEPARTMENT OF HOSPITAL MEDICINE PROGRESS NOTE SERVICE DATE: 02/02/2025 SERVICE TIME: 1:11 PM Hospital Medicine/Primary Attending: iHmanshu Decker DO NIGHT AND WEEKEND COVERAGE: After 7pm please page [phone] SUBJECTIVE: Patient seen examined at bedside, no [...] (POA: Yes) This note was generated using Standing Cloud voice dictation. All reasonable efforts were made to correct dictation errors. SIGNATURE: Himanshu Decker DO PATIENT NAME: Ana Maria Avalos DATE: February 02, 2025 TIME: 1:11 PM PAGER/CONTACT #: [facility]07-02-2025 NoteHNO ID: [id number] Author: STEVE GONZALEZ RN Service: Care Management [...] Avalos DATE: February 01, 2025 TIME: 12:16 [facility]07-02-2025 NoteHNO ID: [id number] Author: HIMANSHU DECKER DO Service: Hospital Medicine Author Type: Physician Type: Progress Notes Filed: 02/01/2025 11:46 Note Text: DEPARTMENT OF HOSPITAL MEDICINE PROGRESS NOTE SERVICE DATE: 02/01/2025 SERVICE TIME: 11:37 AM Hospital Medicine/Primary Attending: Himanshu Decker DO NIGHT AND WEEKEND COVERAGE: After 7pm please page [phone] SUBJECTIVE: Patient seen and examined at bedside, [...] (POA: Yes) This note was generated using Standing Cloud voice dictation. All reasonable efforts were made to correct dictation errors. SIGNATURE: Himanshu Decker DO PATIENT NAME: Ana Maria Avalos DATE: February 01, 2025 TIME: 11:37 AM PAGER/CONTACT #: [facility]07-01-2025 NoteHNO ID: [id number] Author: RYAN MALDONADO RN Service: Care Management Author Type: Registered Nurse Type: Care Mgt Initial Assessment Filed: 01/31/2025 17:19 Note Text: CARE MANAGEMENT: ASSESSMENT AND DISCHARGE PLAN SERVICE DATE: January 31, 2025 SERVICE TIME: 5:11 PM PCP: Radha Fish MD Primary Contact: Extended Emergency Contact Information Primary Emergency Contact: Preston Pope Henley Mobile Relation: Daughter Secondary Emergency Contact: Nehal Boles Mobile Relation: Other Admission Status: Inpatient Insurance Provider: MEDICARE A AND B Discharge Planning requested by: Per Department Practice Potential Transition Plans To Be Determined Advance Directives Current Advance Directive: None Rehab/Pre Vocational Counselor Attempted to Assist with AD Completion: Yes [...] little to no assistance, Back to cooking [place] Explained: [place] Given: No Are you interested [...] groceries and will work on the yard. 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 Her son lives near by but is not super helpful. Has a walker but does not use it. +DME, +PCP. Anticipate patient will be discharging home pending clinical course. She states if she does need placement she would prefer somewhere in [place]. Friends will be able to transport home. SIGNATURE: Ryan Maldonado RN PATIENT NAME: Ana Maria Avalos DATE: January 31, 2025 TIME: 5:11 [facility]06-30-2025 Discharge summary [facility] Medical Records Department [address] [place] [address] Emergency Department Summary 01/30/25 MR#: [id number] Acct: [id number] Name: ANA MARIA AVALOS Rep #:[id number] : 1935 89 From: Car Solomon DO PCP: Dr. Radha Fish MD Status:R EG ER Location: ED [...] going to make it through the night. [facility] Medical History Elevated C-reactive protein (CRP) [...] 09/19/24 Unknown Rx Held on 01/30/25. Instructions: MD Ordered levothyroxine 112 mcg tablet See Rx Instructions .Leda villa 09/26/24 Unknown Rx .COMPLEX #90 tabs dapagliflozin [...] follow commands knew that she was at [facility] 2024 Skin: Warm, dry, tact no rashes [...] 132, potassium normal 4.9, creatinine was elevated 1.70she does have underlying chronic kidney disease. Patient's AST and ALT were 62 and 42 respectively total bilirubin was noted to be 1.67 with a direct bilirubin of 0.71. Patient troponin was 56 with adelta troponin of 51. Patient is EKG showed [...] liver morphology. Cardiomegaly bilateral pleural effusions with co lonic diverticulosis. I called and spoke with our general surgeon Dr. Machado here and she recommended transfer. Called and discussed case with on-call general surgeon Dr. Haji at [facility] And she states that the patient [...] (Auto) 66.1 Lymph % (Auto) 15.0 L [place] % (Auto) 15.7 H Eos % (Auto) [...] Clarity Cloudy Urine pH 5.0 Ur Specific Hanna 1.015 Urine Protein 100 H Urine Glucose [...] Bilateral pleural effusions. Colonic diverticulosis. Reading Location: [place] [address] Discharge Plan Triage Chief Complaint: Shortness of [...] DAILY Qty: 90 3RF Primary Care Provider: Radha Fish Referrals: Radha Fish MD [Primary Care Provider] - Print Language: Eritrean Disposition Disposition: DC/Tx to Another Type of HCF What to do if you have Problems For any increased pain, shortness of breath, bleeding, nausea or vomiting, chestpain, or any unexpected problems, contact your Primary Care Provider. Call [facility] ([phone]) or report tothe closest Emergency Room. Call 911 if necessary. 01/30/25 2341 Cosigner Signature (if applicable): CC: Dr. Radha Fish MD ~ Signed [facility]06-30-2025 Radiology Diagnostic study note [facility] Imaging Services [address] [place], [place] [id number] Chest PA and Lateral MR#: [id number] Acct: [id number] Name: ANA MARIA AVALOS Rep #: [id number] : 1935 F 89 From: Martín Justin MD PCP: Dr. Radha Fish MD Status: R EG CLI Study:Chest PA and Lateral Date of Exam: 01/30/25 Exam# [id number] Ordering Dr: Tammie Pillai CABLE STRETCHER AND TESTER CABLE STRETCHER AND TESTER-C PROCEDURE: CHEST PA AND LATERAL 01/30/2025 REASON FOR EXAM: SHORTNESS OF BREATH, CHF TECHNIQUE: CHEST PA AND LATERAL COMPARISON: 09/18/2022. FINDINGS: The heart is enlarged. Bibasilar linear opacities favoring atelectasis. The lungs are hyperaerated which can suggest COPD. Chronic right rib deformities. RAD/Chest PA and Lateral IMPRESSION: Cardiomegaly. Hyperaerated lungs with can suggest COPD. Probable bibasilar atelectasis. Reading Location: [id number] CC: LINNEA Pillai; Dr. Radha Fish MD ~ Greens Picker: Signed [facility]06-30-2025 Radiology Diagnostic study note [facility] Imaging Services [address] [place], [place] [id number] Abdomen/Pelvis W IV Cont ONLY MR#: [id number] Acct: [id number] Name: ANA MARIA AVALOS Rep #: [id number] : 1935 F 89 From: Martín Justin MD PCP: Dr. Radha Fish MD Status: R EG ER Study:Abdomen/Pelvis W IV Cont ONLY Date of E xam: 01/30/25 Exam# [id number] Ordering Dr: Naz Solomon DO PROCEDURE: ABDOMEN/PELVIS W IV CONT [...] effusions. Anasarca. Degenerative changes of the spine. Rpzfpanw-zc-gnknax atherosclerosis. Normal caliber abdominal aorta. Thickening of [...] Bilateral pleural effusions. Colonic diverticulosis. Reading Location: [id number] CC: Dr. Radha Fish MD; Dr. Car Solomon DO ~ Greens Picker: Signed [facility]06-30-2025 Discharge summary Author Car Solomon [facility] Note Date/Time January 30, 2025 11:4 1pm [facility] Medical Records Department [address] [place] [address] Emergency Department Summary 01/30/25 MR#: [id number] Acct: [id number] Name: ANA MARIA AVALOS Rep #:[id number] : 1935 89 From: Car Solomon DO PCP: Dr. Radha Fish MD Status:R EG ER Location: ED [...] going to make it through the night. [facility] Medical History Elevated C-reactive protein (CRP) [...] follow commands knew that she was at [facility] 2024 Skin: Warm, dry, tact no rashes [...] with on-call general surgeon Dr. Haji at [facility] And she states that the patient [...] (Auto) 66.1 Lymph % (Auto) 15.0 L [place] % (Auto) 15.7 H Eos % (Auto) [...] Clarity Cloudy Urine pH 5.0 Ur Specific Hanna 1.015 Urine Protein 100 H Urine Glucose [...] Bilateral pleural effusions. Colonic diverticulosis. Reading Location: [place] [address] Discharge Plan Triage Chief Complaint: Shortness of [...] DAILY Qty: 90 3RF Primary Care Provider: Radha Fish Referrals: Radha Fish MD [Primary Care Provider] - Print Language: Eritrean Disposition Disposition: DC/Tx to Another Type of HCF What to do if you have Problems For any increased pain, shortness of breath, bleeding, nausea or vomiting, chestpain, or any unexpected problems, contact your Primary Care Provider. Call [facility] ([phone]) or report to the closest Emergency Room. Call 911 if necessary. 01/30/25 2341 <Electronically signed by Car Solomon DO> Cosigner Signature (if applicable): CC: Dr. Radha Fish MD ~ Signed [facility] Work Phone: 1(355) 737-153406-05-2025 Evaluation note* Diagnosis Onset Date Resolution Status [...] rectus sheath noneactive February 23, 2025 10:52am [facility] Work Phone: 1([phone]) 140-301806-05-2025 Evaluation note* Diagnosis Onset Date Resolution Status Admit Date Fatigue acute January 05, 2025 9:25am CKD (chronic kidney disease) , stage III chronic January 05, 2025 9:25am 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 January 05, 2025 9:25am Longstanding persistent atri al fibrillation January 05, 2025 9:25am Pure hypercholesterolemia chronic [...] 2025 10:52am Pulmonary hypertension chronic 2024 10:52am [facility] Work Phone: 1([phone]) 353-563506-05-2025 Evaluation note* Diagnosis Onset Date Resolution Status Admit Date Fatigue acute January 05, 2025 9:25am CKD (chronic kidney disease) , stage III chronic January 05, 2025 9:25am 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 January 05, 2025 9:25am Longstanding persistent atri al fibrillation January 05, 2025 9:25am Pure hypercholesterolemia January 05, 2025 9:25am Fatigue acute February [...] 2025 10:52am Pulmonary hypertension chronic 2024 10:52am UTI (urinary tract infection) acute March 20, 2025 10:40am [facility] Work Phone: 1([phone]) 898-281806-05-2025 Evaluation note* Diagnosis Onset Date Resolution Status Admit Date Fatigue acute January 05, 2025 9:25am CKD (chronic kidney disease) , stage III chronic January 05, 2025 9:25am 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 January 05, 2025 9:25am Longstanding persistent atri [...] tract infection) acute April 09, 2025 10:59am [facility] Work Phone: 1([phone]) 543-655706-05-2025 Evaluation note* Diagnosis Onset Date Resolution Status [...] tract infection) acute April 09, 2025 10:59am Cough acute April 10:21am Fatigue acute April 10:21am Right ventricular dilation acute April 14, 2025 10:21am CKD (chronic kidney disease) , stage III chronic April 14, 2025 10:21am 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 chronic April 14, 2025 10:21am Longstanding persistent atri al fibrillation chronic April 14, 2025 10:21am Pure hypercholesterolemia chronic April 14, 2025 10:21am [facility] Work Phone: 1([phone]) 356-509806-05-2025 Evaluation note* Diagnosis Onset Date Resolution Status Admit Date Fatigue acute January 05, 2025 9:25am CKD (chronic kidney disease) , stage III chronic January 05, 2025 9:25am 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 January 05, 2025 9:25am Longstanding persistent atri [...] 2025 10:52am Pulmonary hypertension chronic 2024 10:52am UTI (urinary tract infection) acute March 20, 2025 10:40am UTI (urinary tract infection) acute April 09, 2025 10:59am Cough acute April 10:21am Right ventricular dilation acute April 14, 2025 10:21am CKD (chronic kidney disease) , stage III chronic April 14, 2025 10:21am 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 chronic April 14, 2025 10:21am Longstanding persistent atri al fibrillation chronic April 14, 2025 10:21am Pure hypercholesterolemia chronic April 14, 2025 10:21am [facility] Work Phone: 1(152) 199-183606-05-2025 [facility] [address] [place] [address] OFFICE VISIT Date of Service: 01/05/25 MR#: [id number] Acct: [id number] Name: ANA MARIA AVALOS Rep #: [id number] : 1935 Provider: SANDRA Santiago Age/Sex: 89/F Location: [facility] Status: Signed HPI HPI History of [...] r/s from 01/04 with MH: see clinicals. Leather Lacer Required: No Is patient in pain?: No [...] 3 weeks ago. unsure if passed out.) [facility] Medical History Elevated C-reactive protein (CRP) Pain [...] Information Echocardiogram done in March 2024 at [facility] demonstrated an ejection fraction of 57%. Left [...] Cosigner Signature: Date (if applicable) CC: Dr. Radha Fish MD ~ [facility]03-26-2025 Evaluation note* Diagnosis Onset Date Resolution Status Admit Date CKD (chronic kidney disease) , stage III chronic October 26, 2024 10:57am Heart failure with reduced e jection fraction and diastolic dysfunction chronic October 26, 2024 10:57am Longstanding persistent atri al fibrillation chronic October 26, 2024 10:57am Pure hypercholesterolemia chronic October 26, 2024 10:57am [facility] Work Phone: 1([phone]) 571-628003-26-2025 Evaluation note* Diagnosis Onset Date Resolution Status [...] Pure hypercholesterolemia chronic January 05, 2025 9:25am [facility] Work Phone: 1([phone]) 136-405303-26-2025 Evaluation note* Diagnosis Onset Date Resolution Status [...] Pure hypercholesterolemia chronic February 22, 2025 12:52pm [facility] Work Phone: [phone]) 754-545601-30-2025 Evaluation note* Diagnosis Onset Date Resolution Status Admit Date Essential hypertension chronic [facility] 2024 2:09pm Heart failure with reduced ejection [...] Pure hypercholesterolemia chronic October 26, 2024 10:57am [facility] Work Phone: 1([phone]) 345-705307-30-2024 History of Present illness Narrative* Roseline, Mazen A, MD - 03/01/2024 2:15 PM EDT Images from the original note were not included. [facility] SECTION OF HEART FAILURE and CARDIAC TRANSPLANT MEDICINE OUTPATIENT VISIT DATE March 01, 2024 OUTPATIENT VISIT TYPE Consultation PRIMARY CARE PHYSICIAN: Radha Fish ([facility]) [address] [place] [address] CHIEF COMPLAINT: Some fatigue NURSING INTAKE (Patient s concerns and/or recent hospitalizations/ER visits): Ana Maria Avalos is being referred by Dr. Edmond for optimization of GDMT, consider transition toEntresto. 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 This winter experienced shortness of breath, fatigue, and dizziness. Echo done at [facility] in october of this year, reports EF [...] had an echo in Sep 2023 in [place] reportedly showing EF of 30%, we do [...] to be. She was sent back to [facility] main to see EP, holter showed average HR 82 with no sig juan or tachy Sent to me today with concomitant echo to opine on medical therapy PAST MEDICAL HISTORY Diagnosis Date Ankle fracture 10/23/2014 trimalleolar fracture right ankle (4 suregery) Arthritis Atrial fibrillation (HCC) INR goal [...] BREAST PERC VACUUM/ROTN 12/27/2009 CARDIOVERSION 03/03/2011 In [facility] [place] FEMORAL SUPRACONDYLAR FRACTURE W/XTN Left 08/29/2021 PAST SURGICAL HISTORY OF right ankle ORIF for triamalleolar fracture S $ KNEE TOTAL ARTHR PRASHANTH Left 05/07/2015 [facility] [place]. LTK replacement arthroplasty SIGMOIDOSCOPY FLX [...] Take 400 mcg by mouth once daily. Ctzrn-4-VPB-EPA-Fish Oil (FISH OIL) 1,000 mg (120 mg-180 [...] with the prior echocardiographic exam performed on 11/12/2018. TR and [...] ALBERTO MD ([id number]) on 01/04/2024 11:56:49 PM IMPRESSION: NYHA [...] Entresto Long talk about atrial TR and senior living remodeling of the RV over time. At [...] exercise, other non-medical management as above. Reno Dukes MD [facility] Section Of Heart Failure and Cardiac Transplant Medicine Heart and V[facility] Desk [address] [place] [address] documented in this encounterHocking Valley [facility] Hospital05-23-[facility]24 History of Present illness Narrative* Ela Rivera Tech - 12/24/2023 2:24 PM EDT HOLTER MONITOR APPLICATION Patient Name: Ana Maria Avalos [facility] Number: [id number] Chest is cleansed with alcohol Skin prep [...] or 48 hours 6.) Call with problems [phone] OR [phone] Patient expresses good verbal understanding of instructions Amrik Lugo documented in this encounterHocking Valley Community Hospital05-23-2024 History of Present illness Narrative* Danny Edmond MD - 12/24/2023 12:45 PM EDT Images from the original note were not included. Heart and Vascular [facility] Department of Cardiovascular Medicine SECTION OF CARDIAC PACING and ELECTROPHYSIOLOGY OUTPATIENT VISIT DATE December 24, 2023 OUTPATIENT VISIT TYPE NEW PRIMARY CARE PHYSICIAN: Radha Fish (Kathryn) [address] [place] [address] REFERRING PHYSICIAN: PENNY LLOYD [address] [place] [address] [address] [facility] [id number] CHIEF COMPLAINT: Persistent atrial fibrillation HISTORY OF [...] concern related to worsening symptoms with her [facility] provider who advised an evaluation at [facility]. Patient states that she has been experiencing [...] BREAST PERC VACUUM/ROTN 12/27/2009 CARDIOVERSION 03/03/2011 [place] [facility] [facility] [place] FEMORAL SUPRACONDYLAR FRACTURE W/XTN Left 08/29/2021 PAST SURGICAL HISTORY OF right ankle ORIF for triamalleolar fracture S $ KNEE TOTAL ARTHR PRASHANTH Left 05/07/2015 [facility] [place]. LTK replacement arthroplasty SIGMOIDOSCOPY FLX [...] take 2 tablets (6mg). Per [facility] in [place]- pt filled prescriptionJune 26, 2021. losartan (COZAAR) [...] to rate control On Flecainide 2012 to 2016 Recurrent AF 4-2015. Admitted to [facility] at that time for dofetilide initiation and therapeutic drug monitoring. QT prolongation on Tikosyn. Unable to tolerate. Started on Amiodarone at that time. Recurrent, symptomatic AF - requiring DCC. Thus far maintaining NSR. significant pulmonary hypertension DLCO 64% DLCO 60% CHADS VASc score Age x2, HTN, female - 4 - on coumadin JOEL at [place] 11: smoke and a possible fibrinous clot in the left atrial appendage - DCC aborted, inr goal increased to 2.5-3.5 Repeat JOEL at [facility] : CONCLUSIONS: - Exam indication: atrial fibrillation [...] severe pHTN. She was started on Amiodarone -2015 after failing Tikosyn due to QT prolongation. [...] may have occurred. Danny Edmond MD Pager: [phone] Office: [phone] I personally examined the patient and repeated [...] medical regimen Referring Physician: Sharon Velazco MD [address] [place] [address] Srinath Alba MD [address] [facility] [address] Primo Webster MD [facility] documented in this encounterHocking Valley Community Hospital05-01-2024 Telephone encounter Note * Telephone Encounter - Piper Brito - 12/02/2023 1:23 PM EDT Images from the original note were not included. Outside EP-42-pgs & Scan Docs Referral- 12/24 (SANDRA Navarro) Office Visit- 12/24 EKG- 10/24 TTE Echo- 09/26 Stress Test- 09/26 Holter Report- 12/24 Cardioversion- 07/24 Labs- 11/24 Piper Brito [facility]05-01-2024 Miscellaneous Notes* Telephone Encounter - Piper Rainey - 12/02/2023 1:23 PM EDT Images from the original note were not included. Outside EP-42-pgs & Scan Docs Referral- 12/24 (Dr. Eun Lloyd, PA) Office Visit- 12/24 EKG- 10/24 TTE Echo- 09/26 Stress Test- 09/26 Holter Report- 12/24 Cardioversion- 07/24 Labs- 11/24 Piper Brito documented in this encounterHocking Valley Community Hospital04-17-2024 [facility] Diagnosis Onset Date Resolution Status Paroxysmal atrial flutter ac [place] Essential hypertension chron ic Non-rheumatic mitral regurgitation chronic Nonrheumatic aortic (valve) stenosis chronic Nonrheumatic tricuspid valve regurgitation chronic Paroxysmal atrial fibrillation chronic Pure hypercholesterolemia ch ronic Debility acute Hyperlipidemia acute Hypokalemia acute Hypothyroidism acute Chronic diastolic congestive heart failure chronic Essential hypertension chron ic Osteoporosis chronic Paroxysmal atrial fibrillation chronic Paroxysmal atrial flutter ac [place] Chronic diastolic congestive heart failure chronic Essential hypertension chron ic Nonrheumatic aortic (valve) stenosis chronic Paroxysmal atrial fibrillation chronic Foul smelling urine acute Hx of fracture of femur acut e GERD (gastroesophageal reflux disease) chronic Osteoporosis chronic Paroxysmal atrial fibrillation [facility] Work Phone: Evaluation note* Diagnosis Onset Date Resolution Status Debility acute Hyperlipidemia acute Hypokalemia acute Hypothyroidism acute Chronic diastolic congestive heart failure chronic Essential hypertension chron ic Osteoporosis chronic Paroxysmal atrial fibrillation chronic Paroxysmal atrial flutter ac [place] Chronic diastolic congestive heart failure chronic Essential hypertension chron ic Nonrheumatic aortic (valve) stenosis chronic Paroxysmal atrial fibrillation chronic Foul smelling urine acute Hx of fracture of femur acut e GERD (gastroesophageal reflux disease) chronic Osteoporosis chronic Paroxysmal atrial fibrillation [facility] Work Phone: Evaluation note* Diagnosis Onset Date Resolution Status Femoral distal fracture acut e Essential hypertension chron ic GERD (gastroesophageal reflux disease) chronic Osteoporosis chronic Paroxysmal atrial fibrillation [facility] Work Phone: Evaluation note* Diagnosis Onset Date Resolution Status Femoral distal fracture acut e Essential hypertension chron ic GERD (gastroesophageal reflux disease) chronic Osteoporosis chronic Paroxysmal atrial fibrillation chronic Renal insufficiency acute Chronic diastolic congestive heart failure chronic Essential hypertension chron ic Nonrheumatic aortic (valve) stenosis chronic Paroxysmal atrial fibrillation chronic Pulmonary hypertension chron ic [facility] Work Phone: Evaluation note* Diagnosis Onset Date Resolution Status Renal insufficiency acute Chronic diastolic congestive heart failure chronic Essential hypertension chron ic Nonrheumatic aortic (valve) stenosis chronic Paroxysmal atrial fibrillation chronic Pulmonary hypertension chron ic Pain of left calf acute Paroxysmal atrial fibrillation chronic Tachycardia noneactive [facility] Work Phone: Evaluation note* Diagnosis Onset Date Resolution Status Renal insufficiency acute Chronic diastolic congestive heart failure chronic Essential hypertension chron ic Nonrheumatic aortic (valve) stenosis chronic Paroxysmal atrial fibrillation chronic Pulmonary hypertension chron ic Pain of left calf acute Paroxysmal atrial fibrillation chronic Tachycardia noneactive Pain of left calf acute Essential hypertension chron ic Osteoporosis chronic Persistent atrial fibrillation [facility] Work Phone: Evaluation note* Diagnosis Onset Date Resolution Status Pain of left calf acute Paroxysmal atrial fibrillation chronic Tachycardia noneactive Pain of left calf acute Essential hypertension chron ic Osteoporosis chronic Persistent atrial fibrillation [facility] Work Phone: Evaluation note* Diagnosis Onset Date Resolution Status Pain of left calf acute Paroxysmal atrial fibrillation chronic Tachycardia noneactive Pain of left calf acute Essential hypertension chron ic Osteoporosis chronic Persistent atrial fibrillation chronic Acute bronchitis noneactive [facility] Work Phone: Evaluation note* Diagnosis Onset Date Resolution Status Pain of left calf acute Essential hypertension chron ic Osteoporosis chronic Persistent atrial fibrillation chronic Acute bronchitis noneactive Essential hypertension chron ic Nonrheumatic aortic (valve) stenosis chronic Paroxysmal atrial fibrillation chronic Pulmonary hypertension chron ic [facility] Work Phone: Evaluation note* Diagnosis Onset Date Resolution Status Acute bronchitis noneactive Essential hypertension chron ic Nonrheumatic aortic (valve) stenosis chronic Paroxysmal atrial fibrillation chronic Pulmonary hypertension chron ic [facility] Work Phone: Evaluation note* Diagnosis Onset Date Resolution Status Essential hypertension chron ic Nonrheumatic aortic (valve) stenosis chronic Paroxysmal atrial fibrillation chronic Pulmonary hypertension chron ic Essential hypertension chron ic Hypothyroidism (acquired) ch ronic Osteoporosis chronic Paroxysmal atrial fibrillation chronic Essential hypertension chron ic Hypothyroidism (acquired) ch ronic Nonrheumatic aortic (valve) stenosis chronic Paroxysmal atrial fibrillation chronic Pulmonary hypertension [facility] Work Phone: Evaluation note* Diagnosis Onset Date Resolution Status Essential hypertension chron ic Hypothyroidism (acquired) ch ronic Osteoporosis chronic Paroxysmal atrial fibrillation chronic Essential hypertension chron ic Hypothyroidism (acquired) ch ronic Nonrheumatic aortic (valve) stenosis chronic Paroxysmal atrial fibrillation chronic Pulmonary hypertension chron [facility] Work Phone: Evaluation noteNo assessment information available [facility] Work Phone: evaluation note* Diagnosis Onset Date Resolution Status Essential hypertension chron ic Hypothyroidism chronic Osteoporosis chronic Persistent atrial fibrillation chronic Angina at rest acute Longstanding persistent atrial fibrillation acute Essential hypertension chron ic Nonrheumatic aortic (valve) stenosis chronic Pulmonary hypertension [facility] Work Phone: Evaluation note* Diagnosis Atrial fibrillation, unspecified type (HCC)- Primary documented in this encounter [facility]* Diagnosis Atrial fibrillation, persistent (HCC) Atrial fibrillation documented in this encounter [facility] note* Diagnosis Atrial fibrillation, persistent (HCC)- Primary Atrial fibrillation Other forms of angina pectoris (HCC) Chronic diastolic CHF (congestive heart failure) (HCC) Chronic diastolic heart failure documented [facility]* Diagnosis Chronic diastolic heart failure (HCC)- Primary Chronic diastolic heart failure Atrial fibrillation, chronic (HCC) Atrial fibrillation Tricuspid valve insufficiency, unspecified etiology [facility] Work Phone: Hospital Discharge instructionsAmbulatory Orders* Urology Location: None [facility] Work Phone: Progress note Author Eun Lloyd [facility] Note Date/Time January 05, 2025 10:[address] [facility] [place] [facility] [address] [place] [address] OFFICE VISIT Date of Service: 01/05/25 MR#: [id number] Acct: [id number] Name: ANA MARIA AVALOS Rep #: [id number] : 1935 Provider: SANDRA Santiago Age/Sex: 89/F Location: [facility] Status: Signed HPI HPI History of [...] r/s from 01/04 with MH: see clinicals. Leather Lacer Required: No Is patient in pain?: No [...] 3 weeks ago. unsure if passed out.) [facility] Medical History Elevated C-reactive protein (CRP) Pain [...] Information Echocardiogram done in March 2024 at [facility] demonstrated an ejection fraction of 57%. Left [...] by Eun Max> Date _ Eun FLORES [facility] Signature: Date (if applicable) CC: Dr. Radha Fish MD ~ [facility] Work Phone: Reason for referral (narrative)* Outpatient Procedure (Routine) - Authorized Specialty Diagnoses / Procedures Referred By Contac t Referred To Contact [facility] [place] Diagnoses Atrial fibrillation, unspecified type (HCC) Procedures ECG COMPLETE ECG ROUTINE ECG W/LEAST 12 LDS W/I&R Danny [place] MD [address] [id number] [facility] [place] [address] Referral ID Status Reason Start Date Expiration Date Visits Requested Visits Authorized [id number] Authorized Auto-Generat ed Referral 12/02/2023 12/01/2024 1 1 [facility] for referral (narrative)No reason for referral information availableWChillicothe Hospital Work Phone: Summary Purpose Family History No Family History Records Found Relationship Condition Age at Onset Recorded Date/T philip mother Cardiac disease Unknown High blood cholesterol Unknown Osteoporosis Unknown Cerebrovascular accident (CVA) Unknown Hypertension Unknown father Hypertension Unknown Alcohol abuse Unknown sister Asthma Unknown Disorder of thyroid Unknown Advance Directives No Advanced Directives Records Found Advance Directive Response Recorded Date/ Time Advance Directives Yes October 15, 018 11:11am Living Will Yes September 04 11:30am Power of Hydraulic Repairer Yes September 04, 2021 11:30am Advance Directive Response Recorded Date/ Time Advance Directives Yes October 15, 018 10:11am Living Will Yes September 04 10:30am Power of Hydraulic Repairer Yes September 04, 2021 10:30am Advance Directive Response Recorded Date/ Time Advance Directives on File Yes Decem laura 2021 11:12am Name of Medical Power of Hydraulic Repairer Preston Avalos July 15, 2022 11:12am Advance Directives Yes July 11:12am Living Will Yes July 15 11:12am Power of Hydraulic Repairer Yes July 15, 2022 11:12am Advance Directive Response Recorded Date/ Time Advance Directives on File Yes Decem laura 2021 12:12pm Name of Medical Power of Hydraulic Repairer Preston Avalos July 15, 2022 12:12pm Advance Directives Yes July 12:12pm Living Will Yes July 15 12:12pm Power of Hydraulic Repairer Yes July 15, 2022 12:12pm Advance Directive Response Recorded Date/ Time Advance Directives Yes July 12:12pm Living Will Yes July 15 12:12pm Power of Hydraulic Repairer Yes July 15, 2022 12:12pm Advance Directive Response Recorded Date/ Time Advance Directives Yes January 01 3:04pm Living Will Yes January 01, 2023 3 :04pm Power of Hydraulic Repairer Yes January 01, 2023 3:04pm Advance Directive Response Recorded Date/ Time Advance Directives Yes January 28 10:48am Living Will Yes January 28, 2023 10:48am Power of Hydraulic Repairer Yes January 28 10:48am Advance Directive Response Recorded Date/ Time Advance Directives Yes January 28 9:48am Living Will Yes January 28, 2023 9:48am Power of Hydraulic Repairer Yes January 28 9:48am Advance Directive Response Recorded Date/ Time Living Will Yes January 28, 2023 10:48am Do you have a Healthcare Power of Hydraulic Repairer? Yes January 28, 2023 10:48am Living Will Yes July 03 1:38am Do you have a Healthcare Power of Hydraulic Repairer? Yes July 03, 2024 1:38am Living Will Yes August 03 1:20am Do you have a Healthcare Power of Hydraulic Repairer? Yes August 03, 2024 1:20am Living Will Yes September 03 1:45am Do you have a Healthcare Power of Hydraulic Repairer? Yes September 03, 2024 1:45am Living Will Yes October 01, 2024 1:39am Do you have a Healthcare Power of Hydraulic Repairer? Yes October 01, 2024 1:39am Advance Directives Yes January 28 10:48am Advance Directive Response Recorded Date/ Time Living Will Yes January 28, 2023 10:48am Do you have a Healthcare Power of Hydraulic Repairer? Yes January 28, 2023 10:48am Living Will Yes September 03 1:45am Do you have a Healthcare Power of Hydraulic Repairer? Yes September 03, 2024 1:45am Living Will Yes October 01, 2024 1:39am Do you have a Healthcare Power of Hydraulic Repairer? Yes October 01, 2024 1:39am Living Will Yes November 01, 2024 12:13am Do you have a Healthcare Power of Hydraulic Repairer? Yes November 01, 2024 12:13am Living Will Yes December 01, 2024 12 :27am Do you have a Healthcare Power of Hydraulic Repairer? Yes December 01, 2024 12:27am Advance Directives Yes January 28 10:48am Advance Directive Response Recorded Date/ Time Living Will Yes January 28, 2023 10:48am Do you have a Healthcare Pow er of Hydraulic Repairer? Yes January 28, 2023 10:48am Living Will Yes October 01, 2024 1:39am Do you have a Healthcare Pow er of Hydraulic Repairer? Yes October 01, 2024 1:39am Do you have a Healthcare Pow er of Hydraulic Repairer? Yes January 30, 2025 7:40pm Name of Medical Power of Hydraulic Repairer preston lawrence January 30, 2025 7:40pm Living Will Yes November 01, 2024 12:13am Do you have a Healthcare Pow er of Hydraulic Repairer? Yes November 01, 2024 12:13am Living Will Yes December 01, 2024 12 :27am Do you have a Healthcare Pow er of Hydraulic Repairer? Yes December 01, 2024 12:27am Living Will Yes December 31, 2024 8 :50pm Do you have a Healthcare Pow er of Hydraulic Repairer? Yes December 31, 2024 8:50pm Advance Directives Yes January 28 10:48am Advance Directive Response Recorded Date/ Time Living Will Yes January 28, 2023 10:48am Do you have a Healthcare Pow er of Hydraulic Repairer? Yes January 28, 2023 10:48am Do you have a Healthcare Pow er of Hydraulic Repairer? Yes January 30, 2025 7:40pm Name of Medical Power of Hydraulic Repairer preston lawrence January 30, 2025 7:40pm Living Will Yes November 01, 2024 12:13am Do you have a Healthcare Pow er of Hydraulic Repairer? Yes November 01, 2024 12:13am Living Will Yes December 01, 2024 12 :27am Do you have a Healthcare Pow er of Hydraulic Repairer? Yes December 01, 2024 12:27am Living Will Yes December 31, 2024 8 :50pm Do you have a Healthcare Pow er of Hydraulic Repairer? Yes December 31, 2024 8:50pm Advance Directives Yes February 10 8:29am Advance Directive Response Recorded Date/ Time Living Will Yes January 28, 2023 10:48am Do you have a Healthcare Pow er of Hydraulic Repairer? Yes January 28, 2023 10:48am Do you have a Healthcare Pow er of Hydraulic Repairer? Yes January 30, 2025 7:40pm Name of Medical Power of Hydraulic Repairer preston lawrence January 30, 2025 7:40pm Living Will Yes November 01, 2024 12:13am Do you have a Healthcare Pow er of Hydraulic Repairer? Yes November 01, 2024 12:13am Living Will Yes December 01, 2024 12 :27am Do you have a Healthcare Pow er of Hydraulic Repairer? Yes December 01, 2024 12:27am Living Will Yes December 31, 2024 8 :50pm Do you have a Healthcare Pow er of Hydraulic Repairer? Yes December 31, 2024 8:50pm Advance Directives Yes January 01 3:04pm Advance Directive Response Recorded Date/ Time Do you have a Healthcare Pow er of Hydraulic Repairer? Yes January 30, 2025 7:40pm Name of Medical Power of Hydraulic Repairer preston lawrence January 30, 2025 7:40pm Living Will Yes November 01, 2024 12:13am Do you have a Healthcare Pow er of Hydraulic Repairer? Yes November 01, 2024 12:13am Living Will Yes December 01, 2024 12 :27am Do you have a Healthcare Pow er of Hydraulic Repairer? Yes December 01, 2024 12:27am Living Will Yes December 31, 2024 8 :50pm Do you have a Healthcare Pow er of Hydraulic Repairer? Yes December 31, 2024 8:50pm Advance Directives Yes January 01 3:04pm Advance Directive Response Recorded Date/ Time Do you have a Healthcare Pow er of Hydraulic Repairer? Yes January 30, 2025 7:40pm Name of Medical Power of Hydraulic Repairer preston lawrence January 30, 2025 7:40pm Living Will Yes November 01, 2024 12:13am Do you have a Healthcare Pow er of Hydraulic Repairer? Yes November 01, 2024 12:13am Living Will Yes December 01, 2024 12 :27am Do you have a Healthcare Pow er of Hydraulic Repairer? Yes December 01, 2024 12:27am Living Will Yes December 31, 2024 8 :50pm Do you have a Healthcare Pow er of Hydraulic Repairer? Yes December 31, 2024 8:50pm Advance Directives Yes March 01 12:14pm Advance Directive Response Recorded Date/ Time Do you have a Healthcare Pow er of Hydraulic Repairer? Yes January 30, 2025 7:40pm Name of Medical Power of Hydraulic Repairer preston lawrence January 30, 2025 7:40pm Living Will Yes December 01, 2024 12 :27am Do you have a Healthcare Pow er of Hydraulic Repairer? Yes December 01, 2024 12:27am Living Will Yes December 31, 2024 8 :50pm Do you have a Healthcare Pow er of Hydraulic Repairer? Yes December 31, 2024 8:50pm Advance Directives Yes March 01 12:14pm Advance Directive Response Recorded Date/ Time Do you have a Healthcare Pow er of Hydraulic Repairer? Yes January 30, 2025 7:40pm Name of Medical Power of Hydraulic Repairer preston lawrence January 30, 2025 7:40pm Living Will Yes December 31, 2024 8 :50pm Do you have a Healthcare Pow er of Hydraulic Repairer? Yes December 31, 2024 8:50pm Advance Directives Yes March 01 12:14pm Chief Complaint and Reason for Visit Chief Complaint 7 m fu AFIB S/O EKG, back in a fib M. Lomeli fall LEFT FEMUR FRACTURE GO OVER MEDS. HOME DRAW LAB WORK Hospital FU S/O HOME DRAW LAB WORK Reason for [...] October 06, 2024 2:39 pm 6 M October 26, 2024 10: 57am S/O November [...] sob January 30, 2025 7:17 pm S/P [facility] 02/08February 22, 2025 12:5 2pm Reason for [...] sob January 30, 2025 7:17 pm S/P [facility] 02/08February 22, 2025 12:5 2pm [facility] February 23, 2025 10:5 2am Chief Complaint Admit Date S/O November 02, 2024 10:3 3am S/O December 02, 2024 12:36p m Pt r/s from 01/04 with MH: see clinicals. January 05, 2025 9:25am S/O January 10, 2025 10:3 1am E-ORDER, SOB January 30, 2025 12:3 1pm sob January 30, 2025 7:17 pm S/P [facility] 7/9 February 22, 2025 12:5 2pm Hospital FU February [...] sob January 30, 2025 7:17 pm S/P [facility] 02/08February 22, 2025 12:5 2pm Hospital FU February 23, 2025 10:5 2am 6 M FU March 01, 2025 10:5 2am Chief Complaint Admit Date S/O December 02, 2024 12:36p m Pt r/s from 01/04 with MH: see clinicals. January 05, 2025 9:25am S/O January 10, 2025 10:3 1am E-ORDER, SOB January 30, 2025 12:3 1pm sob January 30, 2025 7:17 pm S/P [facility] 02/08February 22, 2025 12:5 2pm Hospital FU [...] sob January 30, 2025 7:17 pm S/P [facility] 7/9 February 22, 2025 12:5 2pm Hospital FU February [...] (urinary tract infection) April 09, 2025 10:59am Chief Complaint Admit Date Pt r/s from 01/04 with MH: see clinicals. January 05, 2025 9:25am S/O January 10, 2025 10:3 1am E-ORDER, SOB January 30, 2025 12:3 1pm sob January 30, 2025 7:17 pm S/P [facility] /February 22, 2025 12:5 2pm Hospital FU February 23, 2025 10:5 2am 6 M FU March 01, 2025 10:5 2am ACUTE-POSSIBLE UTI March 20, 2025 10 :40am concern for uti April 09, 2025 10:59am 3 M FU April 14, 2025 10:21am Reason for Visit Admit Date Fatigue January [...] (urinary tract infection) April 09, 2025 10:59am Cough April 14, 2025 10:21am Fatigue April 14, 2025 10:21am Right ventricular dilation April 10:21am CKD (chronic kidney disease), stage III April 14, 2025 10:21am Heart failure with reduced e jection fraction and diastolic dysfunction April 14, 2025 10:21am Longstanding persistent atrial fibrillat ion April 14, 2025 10:21am Pure hypercholesterolemia April 10:21am Chief Complaint Admit Date Pt r/s from 01/04 with MH: see clinicals. January 05, 2025 9:25am S/O January 10, 2025 10:3 1am E-ORDER, SOB January 30, 2025 12:3 1pm sob January 30, 2025 7:17 pm S/P AG 02/08February 22, 2025 12:5 2pm Hospital FU February 23, 2025 10:5 2am 6 M FU March 01, 2025 10:5 2am ACUTE-POSSIBLE UTI March 20, 2025 10 :40am concern for uti April 09, 2025 10:59am 3 M FU April 14, 2025 10:21am E-ORDER/ SOB April 14, 2025 11:28am EORDER May 02, 2025 12:41pm Reason for Visit Admit Date Fatigue January [...] (urinary tract infection) April 09, 2025 10:59am Cough April 14, 2025 10:21am Right ventricular dilation April 10:21am CKD (chronic kidney disease), stage III April 14, 2025 10:21am Heart failure with reduced e jection fraction and diastolic dysfunction April 14, 2025 10:21am Longstanding persistent atrial fibrillat ion April 14, 2025 10:21am Pure hypercholesterolemia April 10:21am Chief Complaint Admit Date S/O January 10, 2025 10:3 1am E-ORDER, SOB January 30, 2025 12:3 1pm sob January 30, 2025 7:17 pm S/P [facility] 7/9 February 22, 2025 12:5 2pm Hospital FU February 23, 2025 10:5 2am 6 M FU March 01, 2025 10:5 2am ACUTE-POSSIBLE UTI March 20, 2025 10 :40am concern for uti April 09, 2025 10:59am 3 M FU April 14, 2025 10:21am E-ORDER/ SOB April 14, 2025 11:28am EORDER May 02, 2025 12:41pm ACUTE-RECURRENT UTI May 09, 2025 1: 02pm Reason for Visit Admit Date Fatigue February 22, 2025 12:5 2pm Right [...] (urinary tract infection) April 09, 2025 10:59am Cough April 14, 2025 10:21am Right ventricular dilation April 10:21am CKD (chronic kidney disease), stage III April 14, 2025 10:21am Heart failure with reduced e jection fraction and diastolic dysfunction April 14, 2025 10:21am Longstanding persistent atrial fibrillat ion April 14, 2025 10:21am Pure hypercholesterolemia April 10:21am Recurrent UTI (urinary tract infection) May 09, 2025 1:02pm UTI (urinary tract infection) May 1:02pm Reason for Referral Specialty Diagnoses / Procedures Referred By Contac t Referred To Contact [facility] [place] [facility] [place] Diagnoses Atrial fibrillation, persistent (HCC) Procedures CARDIOVASCULAR MEDICINE OP FOLLOW UP APPT ORDER Danny Edmond MD [address] [place] [address] [facility] [address] [address] Referral ID Status Reason Start Date Expiration Date Visits Requested Visits Authorized [id number] Ref Not Required PCP Requested Referral 12/24/2023 12/23/2024 1 1 Specialty Diagnoses / Procedures Referred By Contac t Referred To Contact Diagnoses Atrial fibrillation, persistent (HCC) Procedures REFERRAL TO CHF CLINIC OFFICE/OUTPATIENT [facility] 60 MINUTES Danny Edmond MD [address] [place] [address] Referral ID Status Reason Start Date Expiration Date Visits Requested Visits Authorized [id number] Authorized PCP Requested Referral 12/24/2023 12/23/2024 1 1 Specialty Diagnoses / Procedures Referred By Contac t Referred To Contact [facility] [place] [facility] [place] Diagnoses Atrial fibrillation, persistent (HCC) Procedures ECHO ECHO TTHRC R-T 2D W/WOM-MODE COMPL SPEC&COLR D Danny Edmond MD [address] [place] [address] [address] Referral ID Status Reason Start Date Expiration Date Visits Requested Visits Authorized [id number] Authorized Auto-Generat ed Referral 12/24/2023 12/23/2024 1 1 Specialty Diagnoses / Procedures Referred By Contac t Referred To Contact [facility] [place] [facility] [place] Procedures CARDIOVASCULAR MEDICINE OP FOLLOW UP APPT ORDER Reno Dukes MD [address] [place] [address] [facility] [place] [address] [facility] [place] [place] [address] Referral ID Status Reason Start Date Expiration Date Visits Requested Visits Authorized [id number] Ref Not Required PCP Requested Referral 09/01/2024 11/30/2024 1 1 Additional Source Comments INFORMATION SOURCE (unrecogn ized section and content) DATE CREATED AUTHOR 01/22/2018 [facility] DATE CREATED AUTHOR AUTHOR'S ORGANIZ ATION 02/13/2025 [facility] DATE CREATED AUTHOR AUTHOR'S ORGANIZ ATION 05/15/2025 [facility] DATE CREATED AUTHOR AUTHOR'S ORGANIZ ATION 05/17/2025 [facility] Goals (unrecognized section and content) Goals may [...] Status: Active Member Role Status Dates Dr. Radha Fish MD Family Provider Active Dr. Radha Fish MD Primary Care Provider Active Team Status: Inactive Member Role Status Dates Dr. Radha Fish MD Primary Care P erin, Attending Provider, Referring Provider Active Team Status: Active Member Role Status Dates Dr. Radha Fish MD Primary Care Provider Active Dr. Sheldon Huntley MD Attending Provider Active Tammie Pillai CABLE STRETCHER [employer] TESTER, CABLE STRETCHER AND TESTER-C Referring Provider Active Team Status: Inactive Member Role Status Dates Dr. Radha Fish MD Primary Care Provider, Refer ring Provider Active SANDRA Solorzano Attending Provider Active Team Status: Inactive Member Role Status Dates Dr. Radha Fish MD Primary Care Provider, Refer ring Provider Active Olaf Babin MD Attending Provider Active Team Status: Active Member Role Status Dates Dr. Radha Fish MD Primary Care Provider Active Dr. Kash Babin MD Attending Provid er, Referring Provider, Other Provider Active Team Status: Active Member Role Status Dates Dr. Radha Fish MD Primary Care Provider Active Dr. Kash Babin MD Referring Provider, Other Prov ider Active Dr. Casey Rod DO Attending Provider Active Team Status: Inactive Member Role Status Dates Dr. Radha Fish MD Primary Care Provider, Refer ring Provider Active Dr. Kash Babin MD Attending Provider Active Team Status: Inactive Member Role Status Dates Dr. Kash Babin MD Attending Provider, Referring Provider Active Dr. Radha Fish MD Primary Care Provider, Famil y Provider Active Dheeraj Rene CABLE STRETCHER AND TESTER, CABLE STRETCHER AND TESTER-C Other Provider Active Team Status: Inactive Member Role Status Dates Dr. Radha Fish MD Primary Care Provider Active Tammie Pillai CABLE STRETCHER [employer] TESTER, CABLE STRETCHER [employer] TESTER-C Attending Provider, Referring P rovigwendolyn Active Team Status: Inactive Member Role Status Dates Dr. Radha Fish MD Primary Care Provider Active Dr. Kash Babin MD Attending Provider, Referring Provider Active Eun Lloyd PA, PA Other Provider Active Team Status: Inactive Member Role Status Dates Dr. Radha Fish MD Primary Care Provider Active Dr. Kash Babin MD Attending Provider, Referring Provider Active Team Status: Inactive Member Role Status Dates Dr. Radha Fish MD Primary Care Provider, Refer ring Provider Active Tyler Nguyen CABLE STRETCHER AND TESTER, CABLE STRETCHER [employer] TESTER-C Attending Provider Active Team Status: Active Member Role Status Dates Dr. Kash Babin MD Attending Provider, Referring Provider Active Dr. Radha Fish MD Primary Care Provider, Famil y Provider Active Dhereaj Rene CABLE STRETCHER AND TESTER, CABLE STRETCHER AND TESTER-C Other Provider Active Team Status: Inactive Member Role Status Dates Dr. Radha Fish MD Primary Care Provider Active Tyler Nguyen CABLE STRETCHER AND TESTER, CABLE STRETCHER [employer] TESTER-C Attending Provider, Referring Prov ider Active Team Status: Inactive Member Role Status Dates Dr. Radha Fish MD Primary Care Provider, Refer ring Provider Active Eun Lloyd PA, PA Attending Provider Active Team Status: Inactive Member Role Status Dates Dr. Radha Fish MD Primary Care Provider Active Team Status: Inactive Member Role Status Dates Dr. Kash Babin MD Other Provider Active Dr. Radha Fish MD Primary Care Provider, Famil y Provider Active Dheeraj Rene CABLE STRETCHER AND TESTER, CABLE STRETCHER AND TESTER-C Other Provider Active Eun Lloyd PA, PA Attending Provider, Referr ing Provider Active Team Status: Inactive Member Role Status Dates Dr. Radha Fish MD Primary Care Provider, Refer ring Provider Active Dr. Michael Salvador MD Attending Provider Active Team Status: Active Member Role Status Dates Dr. Kash Babin MD Other Provider Active Dr. Radha Fish MD Primary Care Provider, Famil y Provider Active Dheeraj Rene CABLE STRETCHER AND TESTER, CABLE STRETCHER AND TESTER-C Other Provider Active Eun Lloyd PA, PA Attending Provider, Referr ing Provider Active Team Status: Inactive Member Role Status Dates Dr. Radha Fish MD Primary Care Provider Active Eun FLORES, PA Attending Provider, Referr ing Provider Active Team Status: Active Member Role Status Dates Dr. Radha Fish MD Primary Care P rovider, Attending Provider, Referring Provider Active Team Status: Active Member Role Status Dates Dr. Radha Fish MD Primary Care Provider Active Dr. Michael Salvador MD Attending Provider Active Team Status: Active Member Role Status Dates Dr. Radha Fish MD Primary Care Provider Active Eun FLORES, PA Attending Provider, Referr ing Provider Active Team Status: Active Member Role Status Dates Dr. Radha Fish MD Primary Care Provider Active Dr. Michael Salvador MD Attending Provider, Referring Pro vider Active Team Status: Active Member Role Status Dates Dr. Radha Fish MD Primary Care Provider Active Eun FLORES, PA Referring Provider, Other Provider Active Dr. Casey Rod DO Attending Provider Active Concrete Wall Grinder Operator Relationship Specialty Start Date End Date Radha Fish MD [address] [facility] [place], [place] [id number] PCP - General Internal Medicine 08/28/21 Srinath Alba [address] [facility] [place] [address] Cardiology 12/15/17 Michael Salvador MD [address] [facility] [address] [place], [place] [address] Physician Cardiology 11/12/18 Danny Edmond MD [address] [place], [place] [id number] Primary Staff Physician Cardiology 10/19/18 Concrete Wall Grinder Operator Relationship Specialty Start Date End Date Radha Fish MD [address] [place] [address] PCP - General Internal Medicine 08/28/21 Srinath Alba [address] [place] [address] (Fax) Cardiology 12/15/17 Michael Salvador MD [address] [place] [address] Physician Cardiology 11/12/18 Danny Edmond MD [address] [place] [address] Primary Staff Physician Cardiology 10/19/18 Concrete Wall Grinder Operator Relationship Specialty Start Date End Date Radha Fish MD [address] [place] [address] PCP - General Internal Medicine 08/28/21 Srinath Alba [address] [facility] [place] [address] Cardiology 12/15/17 Michael Salvador MD [address] [place] [address] Physician Cardiology 11/12/18 Danny Edmond MD [address] [place] [address] Primary Staff Physician Cardiology 10/19/18 Concrete Wall Grinder Operator Relationship Specialty Start Date End Date Radha Fish MD [address] [place] [address] PCP - General Internal Medicine 08/28/21 Srinath Alba [address] [place], [place] [address] Cardiology 12/15/17 Michael Salvador MD [address] [address] Physician Cardiology 11/12/18 Danny Edmond MD [address] [place] [address] Primary Staff Physician Cardiology 10/19/18 Concrete Wall Grinder Operator Relationship Specialty Start Date End Date Radha Fish MD [address] [place], [place] [id number] PCP - General Internal Medicine 08/28/21 Srinath Alba [address] [place], [place] [address] Cardiology 12/15/17 Michael Salvador MD [address] [address] Physician Cardiology 11/12/18 Danny Edmond MD [address] [place], [place] [id number] Primary Staff Physician Cardiology 10/19/18 Team Status: Inactive Member Role Status Dates Dr. Radha Fish MD Primary Care Provider Active Start: August 01, 2024 End: August 02, 2024 Dr. Radha Fish MD Family Provider Active Start: August 01, 2024 End: August 02, 2024 Eun Lloyd PA, PA Attending Provider Active Start: August 01, 2024 End: August 02, 2024 Eun Lloyd PA, PA Referring Provider Active Start: August 01, 2024 End: August 02, 2024 Team Status: Inactive Member Role Status Dates Dr. Radha Fish MD Primary Care Provider Active Start: August 15, 2024 End: September 02, 2024 Dr. Radha Fish MD Family Provider Active Start: August 15, 2024 End: September 02, 2024 Eun Lloyd PA, PA Attending Provider Active Start: August 15, 2024 End: September 02, 2024 Eun Lloyd PA, PA Referring Provider Active Start: August 15, 2024 End: September 02, 2024 Team Status: Inactive Member Role Status Dates Dr. Radha Fish MD Primary Care Provider Active Start: September 01, 2024 End: September 01, 2024 Dr. Radha Fish MD Attending Provider Active Start: September 01, 2024 End: September 01, 2024 Dr. Radha Fish MD Referring Provider Active Start: September 01, 2024 End: September 01, 2024 Team Status: Inactive Member Role Status Dates Dr. Radha Fish MD Primary Care Provider Active Start: September 12, 2024 End: September 30, 2024 Dr. Radha Fish MD Family Provider Active Start: September 12, 2024 End: September 30, 2024 Eun Lloyd PA, PA Attending Provider Active Start: September 12, 2024 End: September 30, 2024 Eun Lloyd PA, PA Referring Provider Active Start: September 12, 2024 End: September 30, 2024 Team Status: Inactive Member Role Status Dates Dr. Radha Fish MD Primary Care Provider Active Start: October 06, 2024 End: October 31, 2024 Dr. Radha Fish MD Family Provider Active Start: October 06, 2024 End: October 31, 2024 Eun Lloyd PA, PA Attending Provider Active Start: October 06, 2024 End: October 31, 2024 Eun Lloyd PA, PA Referring Provider Active Start: October 06, 2024 End: October 31, 2024 Team Status: Inactive Member Role Status Dates Dr. Radha Fish MD Primary Care Provider Active Start: October 26, 2024 End: October 26, 2024 Dr. Radha Fish MD Referring Provider Active Start: October 26, 2024 End: October 26, 2024 Eun Lloyd PA, PA Attending Provider Active Start: October 26, 2024 End: October 26, 2024 Team Status: Inactive Member Role Status Dates Dr. Radha Fish MD Primary Care Provider Active Start: November 02, 2024 End: November 30, 2024 Dr. Radha Fish MD Family Provider Active Start: November 02, 2024 End: November 30, 2024 Eun Lloyd PA, PA Attending Provider Active Start: November 02, 2024 End: November 30, 2024 Eun Lloyd PA, PA Referring Provider Active Start: November 02, 2024 End: November 30, 2024 Team Status: Inactive Member Role Status Dates Dr. Radha Fish MD Primary Care Provider Active Start: December 02, 2024 End: December 02, 2024 Dr. Radha Fish MD Family Provider Active Start: December 02, 2024 End: December 02, 2024 Eun Lloyd PA, PA Attending Provider Active Start: December 02, 2024 End: December 02, 2024 Eun Lloyd PA, PA Referring Provider Active Start: December 02, 2024 End: December 02, 2024 Team Status: Active Member Role Status Dates Dr. Radha Fish MD Primary Care Provider Active Team Status: Inactive Member Role Status Dates Dr. Radha Fish MD Primary Care Provider Active Start: January 05, 2025 End: January 05, 2025 Dr. Radha Fish MD Referring Provider Active Start: January 05, 2025 End: January 05, 2025 Eun Lloyd PA, PA Attending Provider Active Start: January 05, 2025 End: January 05, 2025 Team Status: Active Member Role/Relationship Status Dates Dr. Radha Fish MD Family Provider Active Dr. Radha Fish MD Primary Care Provider Active Team Status: Inactive Member Role/Relationship Status Dates Dr. Radha Fish MD Primary Care Provider Active Start: October 06, 2024 End: October 31, 2024 Dr. Radha Fish MD Family Provider Active Start: October 06, 2024 End: October 31, 2024 Eun Lloyd PA, PA Attending Provider Active Start: October 06, 2024 End: October 31, 2024 Eun Lloyd PA, PA Referring Provider Active Start: October 06, 2024 End: October 31, 2024 Team Status: Inactive Member Role/Relationship Status Dates Dr. Radha Fish MD Primary Care Provider Active Start: October 26, 2024 End: October 26, 2024 Dr. Radha Fish MD Referring Provider Active Start: October 26, 2024 End: October 26, 2024 Eun Lloyd PA, PA Attending Provider Active Start: October 26, 2024 End: October 26, 2024 Team Status: Inactive Member Role/Relationship Status Dates Dr. Radha Fish MD Primary Care Provider Active Start: November 02, 2024 End: November 30, 2024 Dr. Radha Fish MD Family Provider Active Start: November 02, 2024 End: November 30, 2024 Eun Lloyd PA, PA Attending Provider Active Start: November 02, 2024 End: November 30, 2024 Eun Lloyd PA, PA Referring Provider Active Start: November 02, 2024 End: November 30, 2024 Team Status: Inactive Member Role/Relationship Status Dates Dr. Radha Fish MD Primary Care Provider Active Start: December 02, 2024 End: December 02, 2024 Dr. Radha Fish MD Family Provider Active Start: December 02, 2024 End: December 02, 2024 Eun Lloyd PA, PA Attending Provider Active Start: December 02, 2024 End: December 02, 2024 Eun Lloyd PA, PA Referring Provider Active Start: December 02, 2024 End: December 02, 2024 Team Status: Inactive Member Role/Relationship Status Dates Dr. Radha Fish MD Primary Care Provider Active Start: January 05, 2025 End: January 05, 2025 Dr. Radha Fish MD Referring Provider Active Start: January 05, 2025 End: January 05, 2025 Eun FLORES, PA Attending Provider Active Start: January 05, 2025 End: January 05, 2025 Team Status: Inactive Member Role/Relationship Status Dates Dr. Radha Fish MD Primary Care Provider Active Start: January 10, 2025 End: January 30, 2025 Dr. Radha Fish MD Family Provider Active Start: January 10, 2025 End: January 30, 2025 Eun FLORES, PA Attending Provider Active Start: January 10, 2025 End: January 30, 2025 Eun FLORES, PA Referring Provider Active Start: January 10, 2025 End: January 30, 2025 Team Status: Active Member Role/Relationship Status Dates Dr. Radha Fish MD Primary Care Provider Active Start: January 30, 2025 Tammie Pillai CABLE STRETCHER AND TESTER, CABLE STRETCHER AND TESTER-C Attending Provider Active Start: January 30, 2025 Tammie Pillai CABLE STRETCHER AND TESTER, CABLE STRETCHER AND TESTER-C Referring Provider Active Start: January 30, 2025 Team Status: Inactive Member Role/Relationship Status Dates Dr. Radha Fish MD Primary Care Provider Active Start: January 30, 2025 End: January 31, 2025 Dr. Car Solomon DO Emergency Provider Active Start: January 30, 2025 End: January 31, 2025 Team Status: Inactive Member Role/Relationship Status Dates Dr. Radha Fish MD Primary Care Provider Active Start: January 30, 2025 End: January 30, 2025 Tammie Pillai CABLE STRETCHER AND TESTER, CABLE STRETCHER AND TESTER-C Attending Provider Active Start: January 30, 2025 End: January 30, 2025 Tammie Pillai CABLE STRETCHER AND TESTER, CABLE STRETCHER AND TESTER-C Referring Provider Active Start: January 30, 2025 End: January 30, 2025 Team Status: Active Member Role/Relationship Status Dates Dr. Radha Fish MD Primary Care Provider Active Team Status: Inactive Member Role/Relationship Status Dates Dr. Radha Fish MD Primary Care Provider Active Start: October 26, 2024 End: October 26, 2024 Dr. Radha Fish MD Referring Provider Active Start: October 26, 2024 End: October 26, 2024 Eun M Lloyd PA, PA Attending Provider Active Start: October 26, 2024 End: October 26, 2024 Team Status: Inactive Member Role/Relationship Status Dates Dr. Radha Fish MD Primary Care Provider Active Start: November 02, 2024 End: November 30, 2024 Dr. Radha Fish MD Family Provider Active Start: November 02, 2024 End: November 30, 2024 Eun Lloyd PA, PA Attending Provider Active Start: November 02, 2024 End: November 30, 2024 Eun Lloyd PA, PA Referring Provider Active Start: November 02, 2024 End: November 30, 2024 Team Status: Inactive Member Role/Relationship Status Dates Dr. Radha Fish MD Primary Care Provider Active Start: December 02, 2024 End: December 02, 2024 Dr. Radha Fish MD Family Provider Active Start: December 02, 2024 End: December 02, 2024 Eun Lloyd PA, PA Attending Provider Active Start: December 02, 2024 End: December 02, 2024 Eun Lloyd PA, PA Referring Provider Active Start: December 02, 2024 End: December 02, 2024 Team Status: Inactive Member Role/Relationship Status Dates Dr. Radha Fish MD Primary Care Provider Active Start: January 05, 2025 End: January 05, 2025 Dr. Radha Fish MD Referring Provider Active Start: January 05, 2025 End: January 05, 2025 Eun Lloyd PA, PA Attending Provider Active Start: January 05, 2025 End: January 05, 2025 Team Status: Inactive Member Role/Relationship Status Dates Dr. Radha Fish MD Primary Care Provider Active Start: January 10, 2025 End: January 30, 2025 Dr. Radha Fish MD Family Provider Active Start: January 10, 2025 End: January 30, 2025 Eun Lloyd PA, PA Attending Provider Active Start: January 10, 2025 End: January 30, 2025 Eun Lloyd PA, PA Referring Provider Active Start: January 10, 2025 End: January 30, 2025 Team Status: Inactive Member Role/Relationship Status Dates Dr. Radha Fish MD Primary Care Provider Active Start: January 30, 2025 End: January 30, 2025 Tammie Pillai CABLE STRETCHER AND TESTER, CABLE STRETCHER AND TESTER-C Attending Provider Active Start: January 30, 2025 End: January 30, 2025 Tammie Pillai CABLE STRETCHER AND TESTER, CABLE STRETCHER AND TESTER-C Referring Provider Active Start: January 30, 2025 End: January 30, 2025 Team Status: Inactive Member Role/Relationship Status Dates Dr. Radha Fish MD Primary Care Provider Active Start: January 30, 2025 End: January 31, 2025 Dr. Car Solomon DO Attending Provider Active Start: January 30, 2025 End: January 31, 2025 Dr. Car Solomon DO Emergency Provider Active Start: January 30, 2025 End: January 31, 2025 Team Status: Active Member Role/Relationship Status Dates Dr. Radha Fish MD Primary Care Provider Active Start: February 13, 2025 Dr. Radha Fish MD Attending Provider Active Start: February 13, 2025 Dr. Radha Fish MD Referring Provider Active Start: February 13, 2025 Team Status: Inactive Member Role/Relationship Status Dates Dr. Radha Fish MD Primary Care Provider Active Start: February 22, 2025 End: February 22, 2025 Dr. Radha Fish MD Referring Provider Active Start: February 22, 2025 End: February 22, 2025 Eun Lloyd PA, PA Attending Provider Active Start: February 22, 2025 End: February 22, 2025 Team Status: Inactive Member Role/Relationship Status Dates Dr. Radha Fish MD Primary Care Provider Active Start: February 23, 2025 End: February 23, 2025 Dr. Radha Fish MD Referring Provider Active Start: February 23, 2025 End: February 23, 2025 LINNEA Aggarwal Attending Provider Active Start: February 23, 2025 End: February 23, 2025 Team Status: Inactive Member Role/Relationship Status Dates Dr. Radha Fish MD Primary Care Provider Active Start: November 02, 2024 End: November 30, 2024 Dr. Radha Fish MD Family Provider Active Start: November 02, 2024 End: November 30, 2024 Eun Lloyd PA, PA Attending Provider Active Start: November 02, 2024 End: November 30, 2024 Eun Lloyd PA, PA Referring Provider Active Start: November 02, 2024 End: November 30, 2024 Team Status: Inactive Member Role/Relationship Status Dates Dr. Radha Fish MD Primary Care Provider Active Start: December 02, 2024 End: December 02, 2024 Dr. Radha Fish MD Family Provider Active Start: December 02, 2024 End: December 02, 2024 Eun Lloyd PA, PA Attending Provider Active Start: December 02, 2024 End: December 02, 2024 Eun Lloyd PA, PA Referring Provider Active Start: December 02, 2024 End: December 02, 2024 Team Status: Inactive Member Role/Relationship Status Dates Dr. Radha Fish MD Primary Care Provider Active Start: January 05, 2025 End: January 05, 2025 Dr. Radha Fish MD Referring Provider Active Start: January 05, 2025 End: January 05, 2025 Eun Lloyd PA, PA Attending Provider Active Start: January 05, 2025 End: January 05, 2025 Team Status: Inactive Member Role/Relationship Status Dates Dr. Radha Fish MD Primary Care Provider Active Start: January 10, 2025 End: January 30, 2025 Dr. Radha Fish MD Family Provider Active Start: January 10, 2025 End: January 30, 2025 Eun Lloyd PA, PA Attending Provider Active Start: January 10, 2025 End: January 30, 2025 Eun Lloyd PA, PA Referring Provider Active Start: January 10, 2025 End: January 30, 2025 Team Status: Inactive Member Role/Relationship Status Dates Dr. Radha Fish MD Primary Care Provider Active Start: January 30, 2025 End: January 30, 2025 Tammie Pillai [employer]ABLE [employer], CABLE [employer]RET[employer]ER [employer] TE[employer]-C Attending Provider Active Start: January 30, 2025 End: January 30, 2025 Tammie Pillai CABLE STRET[employer]ER [employer] TESTER, CABLE STRETCHER [employer] TE[employer]-C Referring Provider Active Start: January 30, 2025 End: January 30, 2025 Team Status: Inactive Member Role/Relationship Status Dates Dr. Radha Fish MD Primary Care Provider Active Start: January 30, 2025 End: January 31, 2025 Dr. Car Solomon DO Attending Provider Active Start: January 30, 2025 End: January 31, 2025 Dr. Car Solomon DO Emergency Provider Active Start: January 30, 2025 End: January 31, 2025 Team Status: Active Member Role/Relationship Status Dates Dr. Radha Fish MD Primary Care Provider Active Start: February 13, 2025 Dr. Radha Fish MD Attending Provider Active Start: February 13, 2025 Dr. Radha Fish MD Referring Provider Active Start: February 13, 2025 Team Status: Inactive Member Role/Relationship Status Dates Dr. Radha Fish MD Primary Care Provider Active Start: February 22, 2025 End: February 22, 2025 Dr. Radha Fish MD Referring Provider Active Start: February 22, 2025 End: February 22, 2025 Eun FLORES, PA Attending Provider Active Start: February 22, 2025 End: February 22, 2025 Team Status: Inactive Member Role/Relationship Status Dates Dr. Radha Fish MD Primary Care Provider Active Start: February 23, 2025 End: February 23, 2025 Dr. Radha Fish MD Referring Provider Active Start: February 23, 2025 End: February 23, 2025 LINNEA Aggarwal Attending Provider Active Start: February 23, 2025 End: February 23, 2025 Team Status: Inactive Member Role/Relationship Status Dates Dr. Radha Fish MD Primary Care Provider Active Start: March 01, 2025 End: March 01, 2025 Dr. Radha Fish MD Attending Provider Active Start: March 01, 2025 End: March 01, 2025 Dr. Radha Fish MD Referring Provider Active Start: March 01, 2025 End: March 01, 2025 Team Status: Active Member Role/Relationship Status Dates Dr. Radha Fish MD Primary Care Provider Active Start: March 01, 2025 Dr. Radha Fish MD Attending Provider Active Start: March 01, 2025 Team Status: Inactive Member Role/Relationship Status Dates Dr. Radha Fish MD Primary Care Provider Active Start: February 13, 2025 End: March 02, 2025 Dr. Radha Fish MD Attending Provider Active Start: February 13, 2025 End: March 02, 2025 Dr. Radha Fish MD Referring Provider Active Start: February 13, 2025 End: March 02, 2025 Team Status: Inactive Member Role/Relationship Status Dates Dr. Radha Fish MD Primary Care Provider Active Start: December 02, 2024 End: December 02, 2024 Dr. Radha Fish MD Family Provider Active Start: December 02, 2024 End: December 02, 2024 Eun Lloyd PA, PA Attending Provider Active Start: December 02, 2024 End: December 02, 2024 Eun Lloyd PA, PA Referring Provider Active Start: December 02, 2024 End: December 02, 2024 Team Status: Inactive Member Role/Relationship Status Dates Dr. Radha Fish MD Primary Care Provider Active Start: January 05, 2025 End: January 05, 2025 Dr. Radha Fish MD Referring Provider Active Start: January 05, 2025 End: January 05, 2025 Eun Lloyd PA, PA Attending Provider Active Start: January 05, 2025 End: January 05, 2025 Team Status: Inactive Member Role/Relationship Status Dates Dr. Radha Fish MD Primary Care Provider Active Start: January 10, 2025 End: January 30, 2025 Dr. Radha Fish MD Family Provider Active Start: January 10, 2025 End: January 30, 2025 Eun Lloyd PA, PA Attending Provider Active Start: January 10, 2025 End: January 30, 2025 Eun Lloyd PA, PA Referring Provider Active Start: January 10, 2025 End: January 30, 2025 Team Status: Inactive Member Role/Relationship Status Dates Dr. Radha Fish MD Primary Care Provider Active Start: January 30, 2025 End: January 30, 2025 Tammie Pillai CABLE STRETCHER [employer] TE[employer], CABLE STRETCHER [employer] TESTER-C Attending Provider Active Start: January 30, 2025 End: January 30, 2025 Tammie Pillai CABLE STRETCHER [employer] TESTER, CABLE STRETCHER [employer] TESTER-C Referring Provider Active Start: January 30, 2025 End: January 30, 2025 Team Status: Inactive Member Role/Relationship Status Dates Dr. Radha Fish MD Primary Care Provider Active Start: January 30, 2025 End: January 31, 2025 Dr. Car Solomon DO Attending Provider Active Start: January 30, 2025 End: January 31, 2025 Dr. Car Solomon DO Emergency Provider Active Start: January 30, 2025 End: January 31, 2025 Team Status: Inactive Member Role/Relationship Status Dates Dr. Radha Fish MD Primary Care Provider Active Start: February 13, 2025 End: March 02, 2025 Dr. Radha Fish MD Attending Provider Active Start: February 13, 2025 End: March 02, 2025 Dr. Radha Fish MD Referring Provider Active Start: February 13, 2025 End: March 02, 2025 Team Status: Inactive Member Role/Relationship Status Dates Dr. Radha Fish MD Primary Care Provider Active Start: February 22, 2025 End: February 22, 2025 Dr. Radha Fish MD Referring Provider Active Start: February 22, 2025 End: February 22, 2025 Eun Lloyd PA, PA Attending Provider Active Start: February 22, 2025 End: February 22, 2025 Team Status: Inactive Member Role/Relationship Status Dates Dr. Radha Fish MD Primary Care Provider Active Start: February 23, 2025 End: February 23, 2025 Dr. Radha Fish MD Referring Provider Active Start: February 23, 2025 End: February 23, 2025 LINNEA Aggarwal Attending Provider Active Start: February 23, 2025 End: February 23, 2025 Team Status: Inactive Member Role/Relationship Status Dates Dr. Radha Fish MD Primary Care Provider Active Start: March 01, 2025 End: March 01, 2025 Dr. Radha Fish MD Attending Provider Active Start: March 01, 2025 End: March 01, 2025 Dr. Radha Fish MD Referring Provider Active Start: March 01, 2025 End: March 01, 2025 Team Status: Inactive Member Role/Relationship Status Dates Dr. Radha Fish MD Primary Care Provider Active Start: March 01, 2025 End: March 01, 2025 Dr. Radha Fish MD Attending Provider Active Start: March 01, 2025 End: March 01, 2025 Team Status: Inactive Member Role/Relationship Status Dates Dr. Radha Fish MD Primary Care Provider Active Start: March 20, 2025 End: March 20, 2025 Dr. Radha Fish MD Referring Provider Active Start: March 20, 2025 End: March 20, 2025 Carla Coughlin , CABLE STRETCHER [employer] TESTER-C Attending Provider Active Start: March 20, 2025 End: March 20, 2025 Team Status: Inactive Member Role/Relationship Status Dates Dr. Radha Fish MD Primary Care Provider Active Start: March 20, 2025 End: March 20, 2025 Carla Coughlin , CABLE STRETCHER [employer] TESTER-C Attending Provider Active Start: March 20, 2025 End: March 20, 2025 Carla Coughlin , CABLE STRET[employer]ER [employer] TESTER-C Referring Provider Active Start: March 20, 2025 End: March 20, 2025 Team Status: Inactive Member Role/Relationship Status Dates Dr. Radha Fish MD Primary Care Provider Active Start: January 05, 2025 End: January 05, 2025 Dr. Radha Fish MD Referring Provider Active Start: January 05, 2025 End: January 05, 2025 Eun FLORES, PA Attending Provider Active Start: January 05, 2025 End: January 05, 2025 Team Status: Inactive Member Role/Relationship Status Dates Dr. Radha Fish MD Primary Care Provider Active Start: January 10, 2025 End: January 30, 2025 Dr. Radha Fish MD Family Provider Active Start: January 10, 2025 End: January 30, 2025 Eun Lloyd PA, PA Attending Provider Active Start: January 10, 2025 End: January 30, 2025 Eun FLORES, PA Referring Provider Active Start: January 10, 2025 End: January 30, 2025 Team Status: Inactive Member Role/Relationship Status Dates Dr. Radha Fish MD Primary Care Provider Active Start: January 30, 2025 End: January 30, 2025 Tammie Pillai CABLE STRETCHER [employer] TESTER, CABLE STRETCHER [employer] TESTER-C Attending Provider Active Start: January 30, 2025 End: January 30, 2025 Tammie Pillai CABLE STRETCHER AND TESTER, CABLE STRETCHER [employer] TESTER-C Referring Provider Active Start: January 30, 2025 End: January 30, 2025 Team Status: Inactive Member Role/Relationship Status Dates Dr. Radha Fish MD Primary Care Provider Active Start: January 30, 2025 End: January 31, 2025 Dr. Car Solomon DO Attending Provider Active Start: January 30, 2025 End: January 31, 2025 Dr. Car Solomon DO Emergency Provider Active Start: January 30, 2025 End: January 31, 2025 Team Status: Inactive Member Role/Relationship Status Dates Dr. Radha Fish MD Primary Care Provider Active Start: February 13, 2025 End: March 02, 2025 Dr. Radha Fish MD Attending Provider Active Start: February 13, 2025 End: March 02, 2025 Dr. Radha Fish MD Referring Provider Active Start: February 13, 2025 End: March 02, 2025 Team Status: Inactive Member Role/Relationship Status Dates Dr. Radha Fish MD Primary Care Provider Active Start: February 22, 2025 End: February 22, 2025 Dr. Radha Fish MD Referring Provider Active Start: February 22, 2025 End: February 22, 2025 Eun FLORES, PA Attending Provider Active Start: February 22, 2025 End: February 22, 2025 Team Status: Inactive Member Role/Relationship Status Dates Dr. Radha Fish MD Primary Care Provider Active Start: February 23, 2025 End: February 23, 2025 Dr. Radha Fish MD Referring Provider Active Start: February 23, 2025 End: February 23, 2025 Carla Coughlin NP-C Attending Provider Active Start: February 23, 2025 End: February 23, 2025 Team Status: Inactive Member Role/Relationship Status Dates Dr. Radha Fish MD Primary Care Provider Active Start: March 01, 2025 End: March 01, 2025 Dr. Radha Fish MD Attending Provider Active Start: March 01, 2025 End: March 01, 2025 Dr. Radha Fish MD Referring Provider Active Start: March 01, 2025 End: March 01, 2025 Team Status: Inactive Member Role/Relationship Status Dates Dr. Radha Fish MD Primary Care Provider Active Start: March 01, 2025 End: March 01, 2025 Dr. Radha Fish MD Attending Provider Active Start: March 01, 2025 End: March 01, 2025 Team Status: Inactive Member Role/Relationship Status Dates Dr. Radha Fish MD Primary Care Provider Active Start: March 20, 2025 End: March 20, 2025 Dr. Radha Fish MD Referring Provider Active Start: March 20, 2025 End: March 20, 2025 Carla Coughlin CABLE STRETCHER AND TESTER-C Attending Provider Active Start: March 20, 2025 End: March 20, 2025 Team Status: Inactive Member Role/Relationship Status Dates Dr. Radha Fish MD Primary Care Provider Active Start: March 20, 2025 End: March 20, 2025 Carla Rodriguezerer , CABLE STRETCHER AND TESTER-C Attending Provider Active Start: March 20, 2025 End: March 20, 2025 Carla Coughlin CABLE STRETCHER AND TESTER-C Referring Provider Active Start: March 20, 2025 End: March 20, 2025 Team Status: Inactive Member Role/Relationship Status Dates Dr. Radha Fish MD Primary Care Provider Active Start: April 09, 2025 End: April 09, 2025 Dr. Radha Fish MD Referring Provider Active Start: April 09, 2025 End: April 09, 2025 Dheeraj Rene NP, CABLE STRETCHER AND TESTER-C Attending Provider Active S tart: April 09, 2025 End: April 09, 2025 Team Status: Active Member Role/Relationship Status Dates Dr. Radha Fish MD Primary Care Provider Active Start: April 09, 2025 Dheeraj Rene CABLE STRETCHER AND TESTER, CABLE STRETCHER AND TESTER-C Attending Provider Active S tart: April 09, 2025 Team Status: Inactive Member Role/Relationship Status Dates Dr. Radha Fish MD Primary Care Provider Active Start: April 09, 2025 End: April 09, 2025 Dr. Radha Fish MD Referring Provider Active Start: April 09, 2025 End: April 09, 2025 Dheeraj Rene CABLE STRETCHER AND TESTER, CABLE STRETCHER AND TESTER-C Attending Provider Active S tart: April 09, 2025 End: April 09, 2025 Team Status: Inactive Member Role/Relationship Status Dates Dr. Radha Fish MD Primary Care Provider Active Start: April 14, 2025 End: April 14, 2025 Dr. Radha Fish MD Referring Provider Active Start: April 14, 2025 End: April 14, 2025 Eun Lloyd PA, PA Attending Provider Active Start: April 14, 2025 End: April 14, 2025 Team Status: Active Member Role/Relationship Status Dates Dr. Radha Fish MD Primary care physician Activ e Team Status: Inactive Member Role/Relationship Status Dates Dr. Radha Fish MD Primary care physician Activ e Start: January 05, 2025 End: January 05, 2025 Dr. Radha Fish MD Referring Provider Active Start: January 05, 2025 End: January 05, 2025 uEn Lloyd PA, PA Attending physician Active Start: January 05, 2025 End: January 05, 2025 Team Status: Inactive Member Role/Relationship Status Dates Dr. Radha Fish MD Primary care physician Activ e Start: January 10, 2025 End: January 30, 2025 Eun Lloyd PA, PA Attending physician Active Start: January 10, 2025 End: January 30, 2025 Eun Lloyd PA, PA Referring Provider Active Start: January 10, 2025 End: January 30, 2025 Team Status: Inactive Member Role/Relationship Status Dates Dr. Radha Fish MD Primary care physician Activ e Start: January 30, 2025 End: January 30, 2025 Tammie Pillai CABLE STRETCHER AND TESTER, CABLE STRETCHER AND TESTER-C Attending physician Active Start: January 30, 2025 End: January 30, 2025 Tammie Pillai NP, CABLE STRETCHER AND TESTER-C Referring Provider Active Start: January 30, 2025 End: January 30, 2025 Team Status: Inactive Member Role/Relationship Status Dates Dr. Radha Fish MD Primary care physician Activ e Start: January 30, 2025 End: January 31, 2025 Dr. Car Solomon DO Attending physician Active Start: January 30, 2025 End: January 31, 2025 Dr. Car Solomon DO Emergency Departme nt Physician Active Start: January 30, 2025 End: January 31, 2025 Team Status: Inactive Member Role/Relationship Status Dates Dr. Radha Fish MD Primary care physician Activ e Start: February 13, 2025 End: March 02, 2025 Dr. Radha Fish MD Attending physician Active Start: February 13, 2025 End: March 02, 2025 Dr. Radha Fish MD Referring Provider Active Start: February 13, 2025 End: March 02, 2025 Team Status: Inactive Member Role/Relationship Status Dates Dr. Radha Fish MD Primary care physician Activ e Start: February 22, 2025 End: February 22, 2025 Dr. Radha Fish MD Referring Provider Active Start: February 22, 2025 End: February 22, 2025 Eun Lloyd PA, PA Attending physician Active Start: February 22, 2025 End: February 22, 2025 Team Status: Inactive Member Role/Relationship Status Dates Dr. Radha Fish MD Primary care physician Activ e Start: February 23, 2025 End: February 23, 2025 Dr. Radha Fish MD Referring Provider Active Start: February 23, 2025 End: February 23, 2025 LINNEA Aggarwal Attending physician Active Start: February 23, 2025 End: February 23, 2025 Team Status: Inactive Member Role/Relationship Status Dates Dr. Radha Fish MD Primary care physician Activ e Start: March 01, 2025 End: March 01, 2025 Dr. Radha Fish MD Attending physician Active Start: March 01, 2025 End: March 01, 2025 Dr. Radha Fish MD Referring Provider Active Start: March 01, 2025 End: March 01, 2025 Team Status: Inactive Member Role/Relationship Status Dates Dr. Radha Fish MD Primary care physician Activ e Start: March 01, 2025 End: March 01, 2025 Dr. Radha Fish MD Attending physician Active Start: March 01, 2025 End: March 01, 2025 Team Status: Inactive Member Role/Relationship Status Dates Dr. Radha Fish MD Primary care physician Activ e Start: March 20, 2025 End: March 20, 2025 Dr. Radha Fish MD Referring Provider Active Start: March 20, 2025 End: March 20, 2025 Carla Coughlin CABLE STRETCHER AND TESTER-C Attending physician Active Start: March 20, 2025 End: March 20, 2025 Team Status: Inactive Member Role/Relationship Status Dates Dr. Radha Fish MD Primary care physician Activ e Start: March 20, 2025 End: March 20, 2025 Carla Coughlin , CABLE STRETCHER [employer] TESTER-C Attending physician Active Start: March 20, 2025 End: March 20, 2025 Carla Coughlin , CABLE STRETCHER AND TESTER-C Referring Provider Active Start: March 20, 2025 End: March 20, 2025 Team Status: Inactive Member Role/Relationship Status Dates Dr. Radha Fish MD Primary care physician Activ e Start: April 09, 2025 End: April 09, 2025 Dheeraj Rene CABLE STRETCHER AND TESTER, CABLE STRETCHER AND TESTER-C Attending physician Active Start: April 09, 2025 End: April 09, 2025 Team Status: Inactive Member Role/Relationship Status Dates Dr. Radha Fish MD Primary care physician Activ e Start: April 09, 2025 End: April 09, 2025 Dr. Radha Fish MD Referring Provider Active Start: April 09, 2025 End: April 09, 2025 Dheeraj Rene CABLE STRETCHER AND TESTER, CABLE STRETCHER AND TESTER-C Attending physician Active Start: April 09, 2025 End: April 09, 2025 Team Status: Inactive Member Role/Relationship Status Dates Dr. Radha Fish MD Primary care physician Activ e Start: April 14, 2025 End: April 14, 2025 Dr. Radha Fish MD Referring Provider Active Start: April 14, 2025 End: April 14, 2025 Eun Lloyd PA, PA Attending physician Active Start: April 14, 2025 End: April 14, 2025 Team Status: Inactive Member Role/Relationship Status Dates Dr. Radha Fish MD Primary care physician Activ e Start: April 14, 2025 End: April 14, 2025 Eun Lloyd PA, PA Attending physician Active Start: April 14, 2025 End: April 14, 2025 Eun Lloyd PA, PA Referring Provider Active Start: April 14, 2025 End: April 14, 2025 Team Status: Active Member Role/Relationship Status Dates Dr. Radha Fish MD Primary care physician Activ e Start: May 02, 2025 Eun FLORES, PA Attending physician Active Start: May 02, 2025 Eun Lloyd PA, PA Referring Provider Active Start: May 02, 2025 Team Status: Inactive Member Role/Relationship Status Dates Dr. Radha Fish MD Primary care physician Activ e Start: January 10, 2025 End: January 30, 2025 Eun Lloyd PA, PA Attending physician Active Start: January 10, 2025 End: January 30, 2025 Eun Lloyd PA, PA Referring Provider Active Start: January 10, 2025 End: January 30, 2025 Team Status: Inactive Member Role/Relationship Status Dates Dr. Radha Fish MD Primary care physician Activ e Start: January 30, 2025 End: January 30, 2025 Tammie Pillai CABLE STRETCHER AND TESTER, CABLE STRETCHER AND TESTER-C Attending physician Active Start: January 30, 2025 End: January 30, 2025 Tammie Pillai CABLE STRETCHER AND TESTER, CABLE STRETCHER AND TESTER-C Referring Provider Active Start: January 30, 2025 End: January 30, 2025 Team Status: Inactive Member Role/Relationship Status Dates Dr. Radha Fish MD Primary care physician Activ e Start: January 30, 2025 End: January 31, 2025 Dr. Car Solomon DO Attending physician Active Start: January 30, 2025 End: January 31, 2025 Dr. Car Solomon DO Emergency Departfl nt Physician Active Start: January 30, 2025 End: January 31, 2025 Team Status: Inactive Member Role/Relationship Status Dates Dr. Radha Fish MD Primary care physician Activ e Start: February 13, 2025 End: March 02, 2025 Dr. Radha Fish MD Attending physician Active Start: February 13, 2025 End: March 02, 2025 Dr. Radha Fish MD Referring Provider Active Start: February 13, 2025 End: March 02, 2025 Team Status: Inactive Member Role/Relationship Status Dates Dr. Radha Fish MD Primary care physician Activ e Start: February 22, 2025 End: February 22, 2025 Dr. Radha Fish MD Referring Provider Active Start: February 22, 2025 End: February 22, 2025 Eun Lloyd PA, PA Attending physician Active Start: February 22, 2025 End: February 22, 2025 Team Status: Inactive Member Role/Relationship Status Dates Dr. Radha Fish MD Primary care physician Activ e Start: February 23, 2025 End: February 23, 2025 Dr. Radha Fish MD Referring Provider Active Start: February 23, 2025 End: February 23, 2025 LINNEA Aggarwal Attending physician Active Start: February 23, 2025 End: February 23, 2025 Team Status: Inactive Member Role/Relationship Status Dates Dr. Radha Fish MD Primary care physician Activ e Start: March 01, 2025 End: March 01, 2025 Dr. Radha Fish MD Attending physician Active Start: March 01, 2025 End: March 01, 2025 Dr. Radha Fish MD Referring Provider Active Start: March 01, 2025 End: March 01, 2025 Team Status: Inactive Member Role/Relationship Status Dates Dr. Radha Fish MD Primary care physician Activ e Start: March 01, 2025 End: March 01, 2025 Dr. Radha Fish MD Attending physician Active Start: March 01, 2025 End: March 01, 2025 Team Status: Inactive Member Role/Relationship Status Dates Dr. Radha Fish MD Primary care physician Activ e Start: March 20, 2025 End: March 20, 2025 Dr. Radha Fish MD Referring Provider Active Start: March 20, 2025 End: March 20, 2025 Carla Coughlin CABLE STRETCHER AND TESTER-C Attending physician Active Start: March 20, 2025 End: March 20, 2025 Team Status: Inactive Member Role/Relationship Status Dates Dr. Radha Fish MD Primary care physician Activ e Start: March 20, 2025 End: March 20, 2025 Carla Coughlin CABLE STRETCHER AND TESTER-C Attending physician Active Start: March 20, 2025 End: March 20, 2025 Carla Coughlin CABLE STRETCHER AND TESTER-C Referring Provider Active Start: March 20, 2025 End: March 20, 2025 Team Status: Inactive Member Role/Relationship Status Dates Dr. Radha Fish MD Primary care physician Activ e Start: April 09, 2025 End: April 09, 2025 Dheeraj Rene CABLE STRETCHER AND TESTER, CABLE STRETCHER AND TESTER-C Attending physician Active Start: April 09, 2025 End: April 09, 2025 Team Status: Inactive Member Role/Relationship Status Dates Dr. Radha Fish MD Primary care physician Activ e Start: April 09, 2025 End: April 09, 2025 Dr. Radha Fish MD Referring Provider Active Start: April 09, 2025 End: April 09, 2025 Dheeraj Rene CABLE STRETCHER AND TESTER, CABLE STRETCHER AND TESTER-C Attending physician Active Start: April 09, 2025 End: April 09, 2025 Team Status: Inactive Member Role/Relationship Status Dates Dr. Radha Fish MD Primary care physician Activ e Start: April 14, 2025 End: April 14, 2025 Dr. Radha Fish MD Referring Provider Active Start: April 14, 2025 End: April 14, 2025 Eun Lloyd PA, PA Attending physician Active Start: April 14, 2025 End: April 14, 2025 Team Status: Inactive Member Role/Relationship Status Dates Dr. Radha Fish MD Primary care physician Activ e Start: April 14, 2025 End: April 14, 2025 Eun Lloyd PA, PA Attending physician Active Start: April 14, 2025 End: April 14, 2025 SANDRA Weaver Referring Provider Active Start: April 14, 2025 End: April 14, 2025 Team Status: Active Member Role/Relationship Status Dates Dr. Radha Fish MD Primary care physician Activ e Start: May 02, 2025 SANDRA Weaver Attending physician Active Start: May 02, 2025 SANDRA Weaver Referring Provider Active Start: May 02, 2025 Team Status: Inactive Member Role/Relationship Status Dates Dr. Radha Fish MD Primary care physician Activ e Start: May 09, 2025 End: May 09, 2025 Dr. Radha Fish MD Referring Provider Active Start: May 09, 2025 End: May 09, 2025 LINNEA Aggarwal Attending physician Active Start: May 09, 2025 End: May 09, 2025 Source Comments (unrecognize d section and content) In the event this informatio n is protected by the Federal Confidentiality of Alcohol and Drug Abuse Patient Records regulations: The Federal rules restrict any use of the information to criminally investigate or prosecute any alcohol or drug abuse patient.[facility] the event this information is protected by the Federal Confidentiality of Alcohol and Drug Abuse Patient Records regulations: The Federal rules restrict any use of the information to criminally investigate or prosecute any alcohol or drug abuse patient.[facility] the event this information is protected by the Federal Confidentiality of Alcohol and Drug Abuse Patient Records regulations: The Federal rules restrict any use of the information to criminally investigate or prosecute any alcohol or drug abuse patient.[facility] the event this information is protected by the Federal Confidentiality of Alcohol and Drug Abuse Patient Records regulations: The Federal rules restrict any use of the information to criminally investigate or prosecute any alcohol or drug abuse patient.[facility] the event this information is protected by the Federal Confidentiality of Alcohol and Drug Abuse Patient Records regulations: The Federal rules restrict any use of the information to criminally investigate or prosecute any alcohol or drug abuse patient.[facility] Reason for Visit (unrecogniz ed section and content) Reason Comments Received Outside Medical Records [facility] Medical & Referral Reason Comments Holter Monitor Application 24-HR Reason Comments Consult Specialty Diagnoses / Procedures Referred By Contac t Referred To Contact [facility] Diagnoses Atrial fibrillation, persistent (HCC) Procedures ECHO ECHO TTHRC R-T 2D W/WOM-MODE COMPL SPEC&COLR Danny Stevenson MD [address] [place] [address] [facility] [address] [place] [address] Referral ID Status Reason Start Date Expiration Date V isits Requested Visits Authorized [id number] Closed Auto-Generate d Referral 12/24/2023 12/23/2024 1 [...] BE BASED ON THE PRIMARY CLINICAL RECORDS. [facility] [employer] [facility]. provides no warranty or guarantee of the accuracy or completeness of information in this document.
[2025-05-17 19:01] VITALS: BMI 25.8
[2025-05-17 19:40] VITALS: PULSE 60; RESP 16
--- NOTE | 2025-05-17 20:02 | PCM.HP.STD ---
HPI - General General Date of Admission: 05/17/25 Date of Service: 05/18/25 Chief Complaint: Here for rehabilitation. [facility] Narrative SAEID WALLS, is a 89 Female who presents with followin05/14/2025 [facility] ED Fall. Fell, hit back of head, on Eliquis, no LOC. Left low back pain, right ankle pain, Feeling weak for 1 month. Sodium 124, UA negative for UTI. CT brain showed intracranial aneurysm 1.6cm x 1.4cm. CT cervical spine negative, CT lumbar spine old T12 compression fracture. X-ray right ankle negative, Chest X-ray negative, X-ray pelvis negative. [facility] Neurosurgery recommended outpatient follow up brain aneurysm, no transfer needed. 05/14/2025 Admit [facility]. PT/OT/CM for debility, falls. Fluid restriction, Lasix, Aldactone for hyponatremia. TSH 91, patient stopped taking Levothyroxine, Give Levothyroxine IV, then restart home dose Levothyroxine. Keflex 500mg bid x 5 days for E. Coli UTI, urine culture done outpatient, patient was prescribed Macrodantin, but unknown if she took it all. No urgent intervention for brain aneurysm. 05/15/2025 Patient requested TCU. 05/16/2025 PT/OT SNF. 05/17/2025 Admit to TCU with debility, here for rehabilitation, strengthening, prior to discharge home alone. [facility] Medical History Cough UTI (urinary tract infection) Mood disorder Insomnia Hematoma of rectus sheath Right ventricular dilation Elevated C-reactive protein (CRP) Pain in both upper extremities Hemorrhoid CKD (chronic kidney disease), stage III 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 Longstanding persistent atrial fibrillation Foul smelling urine Hx of fracture of femur Dermatitis Nonrheumatic aortic (valve) stenosis Cystitis Osteoporosis Urinary tract infection with hematuria Vision problems Osteopenia Chronic headaches Cataracts, bilateral Back problem Arthritis Seasonal allergies RBBB DDD (degenerative disc disease) Diverticulosis Pure hypercholesterolemia Anemia Pulmonary hypertension Non-rheumatic mitral regurgitation Nonrheumatic tricuspid valve regurgitation Paroxysmal atrial fibrillation Essential hypertension Hyperlipidemia GERD (gastroesophageal reflux disease) Depression Joint pain Headache Snoring Post-nasal drainage Dyspnea on exertion Anxiety Insomnia due to medical condition Hypothyroidism (acquired) Anticoagulation goal of INR 2 to 3 Hypertension Atrial fibrillation with normal ventricular rate 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 Home Medications ?Medication ?Instructions ?Recorded ?Last Taken ?Type atorvastatin 20 mg tablet 20 mg PO QHS CHOLESTEROL #90 tabs 06/16/24 Unknown Rx alendronate 70 mg tablet See Rx Instructions .Route 06/21/24 Unknown Rx .COMPLEX #14 tabs Handicap Placard #1 ea 08/15/24 Unknown Rx levothyroxine 112 mcg tablet See Rx Instructions .Route 09/26/24 Unknown Rx .COMPLEX #90 tabs acetaminophen 500 mg tablet 1,000 mg (2 x 500 mg) PO Q8 #1 TAB 05/17/25 Unknown Rx apixaban 5 mg tablet (Eliquis) 5 mg PO BID #0 tabs 05/17/25 Unknown Rx cephalexin 500 mg capsule 500 mg PO Q12 #0 caps 05/17/25 Unknown Rx empagliflozin 25 mg tablet 25 mg PO DAILY #0 tabs 05/17/25 Unknown Rx (Jardiance) furosemide 40 mg tablet 40 mg PO DAILY #0 tabs 05/17/25 Unknown Rx melatonin 10 mg disintegrating 10 mg PO QHS PRN PRN Insomnia #0 05/17/25 Unknown Rx tablet tabs metoprolol tartrate 75 mg tablet 75 mg PO BID #1 TAB 05/17/25 Unknown Rx spironolactone 50 mg tablet 25 mg (1/2 x 50 mg) PO DAILY #0 05/17/25 Unknown Rx tabs Allergy/AdvReac Type Severity Reaction Status Date / Time bee venom protein (honey bee) Allergy Unknown UNKNOWN Verified 05/14/25 07:13 propoxyphene (From Allergy Unknown UNKNOWN Verified 05/14/25 07:13 Darvocet-N) codeine AdvReac Other Verified 05/14/25 07:13 Family History Mother Heart disease High cholesterol Osteoporosis CVA (cerebral vascular accident) Hypertension Father Hypertension Alcohol abuse Sister Asthma Hypertension Thyroid disorder Surgical History History of cataract extraction History of cardioversion (~07/15/22) History of total left knee replacement Status post surgical manipulation of ankle joint Status post total left knee replacement Social History household members: none Smoking Status: Never smoker alcohol intake: never substance use type: does not use what type of physical activity do you participate in: none ROS Constitutional Constitutional: Reports weakness; Denies chills, fever(s) or weight gain ENT HEENT: Denies headache(s), nasal congestion or nasal discharge Cardiovascular Cardiovascular: Denies chest pain or palpitations Respiratory/Chest Respiratory/Chest: Denies cough, excessive phlegm production or shortness of breath with exertion Gastrointestinal Gastrointestinal: Denies abdominal pain, nausea or vomiting Genitourinary Genitourinary: Denies dysuria Musculoskeletal Musculoskeletal: Denies joint pain or joint swelling Integumentary Integumentary: Denies rash or wounds Neurologic Neurologic: Denies focal weakness, numbness or tingling Psychiatric Psychiatric: Denies anxiety, auditory hallucinations, depression, homicidal ideation or suicidal ideation Vital Signs Vital Signs Vital Signs: 05/17/25 18:20 Temperature 96.7 F L Temperature Source Temporal Pulse Rate 84 Respiratory Rate 18 Blood Pressure 90/44 L Blood Pressure Mean 59 Blood Pressure Source Monitor Blood Pressure Position Semi-Fowlers Blood Pressure Location Left Arm Pulse Ox 98 Oxygen Delivery Method Room Air Weight Weight: 77.111 kg Body Mass Index (BMI) 25.8 Physical Exam Const alert General Appearance: cooperative HEENT normocephalic Eyes PERRL and EOMs intact bilaterally Neck supple, no JVD and no carotid bruits Resp normal respiratory effort, normal air movement and clear to auscultation bilaterally Cardio regular rate and regular rhythm GI normal to inspection, nondistended, normoactive bowel sounds, non-tender and non-distended Extremity normal capillary refill General Extremity: Negative for edema Skin no rashes or lesions noted General Skin Exam: no breakdown Psych affect normal Appearance: appropriate Results Lab / Micro Data 05/18/25 05:15 05/18/25 05:15 Assessment & Plan Assessment/Plan (1) Debility: (2) Fall: (3) Hyponatremia: (4) Hypothyroidism: (5) UTI (urinary tract infection): QUALIFIERS: Hematuria presence: with hematuria Urinary tract infection type: acute cystitis Qualified Code(s): N30.01 - Acute cystitis with hematuria (6) Atrial fibrillation: (7) Essential (primary) hypertension: (8) Vitamin D deficiency: (9) Coronary artery disease: (10) Hyperlipidemia: (11) Chronic heart failure with preserved ejection fraction (HFpEF): (12) GERD (gastroesophageal reflux disease): (13) Hypokalemia: (14) CKD (chronic kidney disease), stage III: QUALIFIERS: Chronic kidney disease stage 3 subtype: stage 3b (GFR 30-44) Qualified Code(s): N18.32 - Chronic kidney disease, stage 3b PLAN: Plan 89 year old female with below past medical history hospitalized for fall 2/2 hypothyroidism, hyponatremia, urinary tract infection, admitted to TCU with debility, here for rehabiliation, strengthening, prior to discharge home alone. Debility - PT/OT. Cognition - ST. Pain - Tylenol 1000mg q8. Bowel - senna/colace 1 tablet bid, Magnesium citrate 150mL po x 1 prn. Adult immunization - Administer pneumonia vaccine, covid vaccine, flu vaccine as appropiate. DVT prophylaxis - Eliquis. Osteoporosis - Alendronate 70mg qw. Atrial fibrillation - Metoprolol 75mg bid, Eliquis 5mg bid. Hyperlipidemia - Atorvastatin 20mg qhs. E. Coli UTI - Keflex 500mg po q12 thru 05/20/2025. Chronic HFpEF - Metoprolol 75mg bid, Jardiance 25mg daily, Aldactone 25mg daily, Furosemide 40mg daily. Hypothyroidism - Levothyroxine 112mcg daily. Insomnia - Melatonin 10mg qhs prn.
[2025-05-17] MEDS: APIXABAN 5 MG TABLET PO (22:42)
[2025-05-17 22:45] VITALS: BP 98/64; PULSE 71
[2025-05-17] MEDS: 0.9% Saline Lock 10 ML Syringe IV (22:55)
[2025-05-17 23:11] VITALS: BP 98/64; PULSE 71
[2025-05-18] VITALS (7 sets, daily range): BP systolic 82–94; BP diastolic 45–54; PULSE 66–84; RESP 16–17; TEMP 36.6; O2SAT 94–95
--- NOTE | 2025-05-18 02:39 | NURSING ---
Spoke with patient regarding code status. Per patient, she would like to speak with Tiana ART, before verifying her code status. Patient verbally understands and agrees to be full code at this time. This nurse spoke with patient regarding influenza vaccine and if she would like to receive it while she is here on TCU. Per patient's request, she would like to hold off on the influenza vaccine at this time.
[2025-05-18 06:12] LABS: Hematocrit 37.6 % (37-47); Hemoglobin 12.9 g/dL (12.0-15.0); Immature Granulocytes Count 0.040 X10^3/uL (0.0-0.0); Mean Corp Hgb Conc 34.3 g/dL (32-36); Mean Corpuscular Volume 86.6 fL (81-99); Mean Platelet Vol. 9.6 fl (6.2-12.0); NRBC Flagged by Analyzer 0 % (0-5); POSITIVE MORPHOLOGY YES; Platelet Count 163 K/mm3 (150-450); RBC Distribution Width CV 21.2 % (11.6-14.6); RBC Distribution Width SD 62.1 fl (35.1-43.9); Red Blood Count 4.34 M/mm3 (4.2-5.4); White Blood Count 4.3 K/mm3 (4.4-11.0)
[2025-05-18 06:17] LABS: Differential Indicated SCAN CRITERIA MET
[2025-05-18 07:02] LABS: Anion Gap 11 (5-15); BUN 35 mg/dL (4-19); BUN/Creat Ratio 25.1 RATIO (10-20); Calcium,Total 9.1 mg/dL (7.6-11.0); Carbon Dioxide 25.7 mmol/L (21.0-32.0); Chloride 94 mmol/L (98-108); Estimated Creatinine Clearance 30.34 ml/min (50-250); Glucose 97 mg/dL (70-99); Potassium 4.7 mmol/L (3.3-5.1)
[2025-05-18 08:07] LABS: Anisocytosis 1+
[2025-05-18] MEDS: APIXABAN 5 MG TABLET PO ×2 (08:23→20:03)
--- NOTE | 2025-05-18 09:14 | NURSING ---
dr do notified of Low BP this AM, lopressor, aldactone and lasix held. pt updated.
--- NOTE | 2025-05-18 10:32 | PCM.PN.DRR ---
Documented by User: Ramiro Ryan 05/18/25 11:17 TCU RX Drug Regimen Review Subjective/Objective Subjective/Objective Subjective: TCU Admission. 89 year old female hospitalized for fall 2/2 hypothyroidism, hyponatremia, urinary tract infection. Admitted to TCU with debility, here for rehabiliation, strengthening, prior to discharge home alone. Objective: Allergies bee venom protein (honey bee) Allergy (Unknown, Verified 05/14/25 07:13) UNKNOWN propoxyphene (From Darvocet-N) Allergy (Unknown, Verified 05/14/25 07:13) UNKNOWN codeine Adverse Reaction (Verified 05/14/25 07:13) Other Current Medications Generic Name Dose Route Start Last Admin Trade Name Freq PRN Reason Stop Dose Admin Acetaminophen 1,000 mg 05/17/25 22:00 05/18/25 05:25 Acetaminophen 500 Mg Tablet PO Not Given Q8 LEDY Alendronate Sodium 70 mg 05/24/25 06:00 Alendronate Sodium 70 Mg Tablet PO QWEEK LEDY Apixaban 5 mg 05/17/25 22:00 05/18/25 08:23 Apixaban 5 Mg Tablet PO 5 mg BID LEDY Administration Atorvastatin Calcium 20 mg 05/17/25 22:00 05/17/25 22:42 Atorvastatin Calcium 20 Mg Tablet PO 20 mg QHS LEDY Administration Bisacodyl 10 mg 05/17/25 18:35 Bisacodyl 10 Mg Suppository RC DAILY PRN PRN Constipation Cephalexin 500 mg 05/17/25 22:00 05/18/25 08:23 Cephalexin 500 Mg Capsule PO 05/20/25 22:01 500 mg Q12 LEDY Administration Empagliflozin 25 mg 05/18/25 10:00 05/18/25 08:23 Empagliflozin 25 Mg Tablet PO 25 mg DAILY LEDY Administration Furosemide 40 mg 05/18/25 10:00 05/18/25 09:14 Furosemide 40 Mg Tablet PO Not Given DAILY LEDY Protocol Levothyroxine Sodium 112 mcg 05/18/25 06:00 05/18/25 05:25 Levothyroxine 112 Mcg Tablet PO 112 mcg DAILY@0600 LEDY Administration Magnesium Citrate 150 ml 05/17/25 18:35 Magnesium Citrate 300 Ml PO X1 PRN Constipation Melatonin 10 mg 05/17/25 18:44 Melatonin 10 Mg Tablet PO QHS PRN PRN INSOMNIA Metoprolol Tartrate 75 mg 05/17/25 22:00 05/18/25 08:20 Metoprolol Tartrate 25 Mg Tablet PO Not Given BID [facility] Senna/Docusate Sodium 1 tablet 05/17/25 22:00 05/18/25 08:24 Senna/Docusate Sodium 1 Tablet PO Not Given BID [facility] Sodium Chloride 10 - 40 ml 05/17/25 18:52 05/17/25 22:55 0.9% Saline Lock 10 Ml Syringe IV 10 ml UD PRN Administration SALINE FLUSH Spironolactone 25 mg 05/18/25 10:00 05/18/25 09:13 Spironolactone 25 Mg Tablet PO Not Given DAILY [facility] Protocol Tuberculin PPD 0.1 ml 05/25/25 10:00 Tuberculin,Purif.Prot.Deriv. 50 Tu/Ml Vial ID 05/25/25 10:01 X1 ONE Problem List Chronic heart failure with preserved ejection fraction (HFpEF) (Acute) Coronary artery disease (Acute) Vitamin D deficiency (Acute) Essential (primary) hypertension (Acute) Atrial fibrillation (Acute) Hypothyroidism (Acute) Hyponatremia (Acute) Fall (Acute) UTI (urinary tract infection) (Acute) CKD (chronic kidney disease), stage III (Chronic) Hypokalemia (Acute) Hyperlipidemia (Chronic) Debility (Acute) GERD (gastroesophageal reflux disease) (Chronic) Vital Signs Temp Pulse Resp BP Pulse Ox O2 Del Method 97.8 F 66 16 82/45 L 94 Room Air 05/18/25 08:17 05/18/25 08:20 05/18/25 08:17 05/18/25 08:18 05/18/25 08:18 05/18/25 08:18 Oxygen Delivery Method Room Air Weight: 77.111 kg Body Mass Index (BMI) 25.8 Sodium 131 mmol/L (133-145) L 05/18/25 05:15 Potassium 4.7 mmol/L (3.3-5.1) 05/18/25 05:15 Chloride 94 mmol/L (98-108) L 05/18/25 05:15 Carbon Dioxide 25.7 mmol/L (21.0-32.0) 05/18/25 05:15 Anion Gap 11 (5-15) 05/18/25 05:15 BUN 35 mg/dL (4-19) H 05/18/25 05:15 Creatinine 1.40 mg/dL (0.70-1.20) H 05/18/25 05:15 Est GFR (MDRD) Non-Af 36 (>60) L 05/18/25 05:15 BUN/Creatinine Ratio 25.1 RATIO (10-20) H 05/18/25 05:15 Glucose 97 mg/dL (70-99) 05/18/25 05:15 Assessment/Plan: 1. Pain - Tylenol 1000mg PO Q8H. Monitor pain scores for response, symptoms of pain/resident distress and ability to participate in therapy. AST/ALT: 52/26 (05/15). Check LFTs if resident develops symptoms of hepatoxicity. Consider monitoring LFTs if patient using > 3 gm/day of acetaminophen for prolonged period. Do not exceed 4000 mg in 24 hours. 2. Bowel - senna/colace 1 tablet PO BID, Magnesium citrate 150mL PO X1 PRN constipation. Last document bowel movement: 05/16/25. Monitor for usage of prn medications (Resident has not used any prn doses at this time.), abdominal pain, frequency of bowel movements, diarrhea. Recommend holding bowel regimen if resident develops diarrhea. 3. DVT prophylaxis - Eliquis 5 mg PO BID. Monitor for symptoms of VTE (new onset leg pain, swelling, erythema, SOB, chest pain, hypoxia), renal function (SCr = 1.4) and body weight (Wt = 77.1).?Current dose appropriate for age, weight and SCr. Monitor for symptoms of bleeding (including melena, hemoptysis, hematuria, epistaxis, new-onset headache), hemoglobin (last Hgb = 12.9 (05/18)). 4. Osteoporosis - Alendronate 70mg PO QWeek. Please monitor calcium/phosphate levels, muscle cramps, nausea and signs/symptoms of GI ulcers. Last Ca: 9.1 (05/18), Phos: 3.8 (05/15). 5. Atrial fibrillation - Metoprolol tartrate 75mg PO BID, Eliquis 5mg PO BID. Rate appears adequately controlled. HR last 24h= 60-84.?Anticoagulation for stroke prophylaxis regimen = apixaban 5 mg BID. Monitor heart rate, blood pressure, exercise capacity and for symptoms including palpitations, fatigue, dizziness, dyspnea, chest pain. Monitor for bradyarrhythmia, fatigue, sleep disturbance and for new/worsening heart failure symptoms. For diabetic patients, monitor glucose. 6. Hyperlipidemia - Atorvastatin 20mg PO QHS. Last FLP = 04/14/25 T, TC: 109, LDL: 51, HDL: 41. LDL at goal at last check for patient. Monitor for headache, nausea, diarrhea, new muscle pain/cramping or weakness.? Consider CPK if myopathy/rhabdomyolysis suspected. Monitor AST/ALT (last = / (05/15)) if symptoms suggestive of hepatoxicity. 7. E. Coli UTI - Keflex 500mg PO Q12H thru 05/20/2025. Please monitor for worsening UTI symptoms, diarrhea, and nausea. 8. Chronic HFpEF - Metoprolol tartrate 75mg PO BID, Jardiance 25mg PO daily, Aldactone 25mg PO daily, Furosemide 40mg PO daily. Last echo EF: 55% (02/08/25). BP range since admission = 82/45 - 103/58. Regimen appears optimized at this time. Monitor volume status (weight, lower extremity edema, JVD, lung examination) and for symptoms of exacerbation (SOB, dyspnea on exertion, orthopnea, edema, fatigue, wet cough or frothy/pink mucous). Monitor volume status, symptoms of orthostasis/hypotension, genitourinary fungal infection and urinary tract infection. For diabetic patients, monitor blood glucose and symptoms of hypo/hyperglycemia. Monitor serum potassium (last K = 4.7 (05/18)), magnesium (last Mg= 2.5 (05/15)), calcium (last Ca = 9.1) and sodium (last Na = 131).?Monitor volume status, symptoms of orthostasis, and renal function (SCr = 1.4). 9. Hypothyroidism - Levothyroxine 112mcg PO daily. Please monitor for anxiety, changes in appetite, heat intolerance, and edema. 10. Insomnia - Melatonin 10mg PO QHS PRN. Please monitor for day time drowsiness, abdominal pain, ability to fall asleep and stay asleep. Assessment/Plan for indications treated with psychotropic medications: - Resident is not prescribed scheduled or prn psychotropic medications at the time of this drug regimen review. Medical chart and medication regimen reviewed. The following medication irregularities or issues were identified: - No recommendations for resident at this time. Date Date of Note: 05/18/25 Documented by User: Dr. West Meyers MD 05/18/25 13:01 TCU RX Drug Regimen Review Provider Comments Provider responsibility Provider Comments to Recommendations by Pharmacy Agree
[2025-05-18] MEDS: Tuberculin,Purif.prot.deriv. 50 TU/ML Vial 0.1 ML ID (11:04)
--- NOTE | 2025-05-18 15:15 | CASEMGMT ---
Social Work SW met with the patient to complete initial assessment. SW introduced herself and role. SW verified contacts. Patient discussed code status and patient requested to change her status to DNR-CC-A no intubation. Patients goal is return home. Patient discussed how she lost her child when he was 3 and 1/2 years old. Patient was receptive to receiving resources regarding counseling agencies and support groups. Patient reported difficulty with driving and therefore not going to the grocery store. Her neighbors help with some meals and getting her groceries at times. Her food intake is minimal and she has an unbalanced diet. SW offered resources for home delivered meals and transportation, along with having a dietitian assist with educating pt to a balanced diet. Pt appreciative. SW will continue to follow for DC planning. - KAELYN provided above resources to pt. DAVID Noriega
[2025-05-18] MEDS: 0.9% Saline Lock 10 ML Syringe IV (20:02)
[2025-05-19 09:43] VITALS: BP 101/57; PULSE 104; RESP 17; TEMP 36.4; O2SAT 95
[2025-05-19 09:48] VITALS: PULSE 104
[2025-05-19] MEDS: APIXABAN 5 MG TABLET PO ×2 (09:48→20:34)
[2025-05-19] MEDS: 0.9% Saline Lock 10 ML Syringe IV ×2 (09:49→20:38)
[2025-05-19] MEDS: Senna/Docusate Sodium 1 Tablet PO (09:49)
--- NOTE | 2025-05-19 11:32 | NURSING ---
Armhole Baster Jumpbasting Note; Activity Asset: Adan Rodgers is independent in her choice of daily activities. She stated she prefers to have her door closed, no pet visits and likes it quit. She has her tablet, smartphone and was given word puzzles as well. Staff will remind her of weekly activities and respect her right to say no.
[2025-05-19 20:30] VITALS: BP 108/58; PULSE 76; RESP 16; O2SAT 97
[2025-05-19 20:35] VITALS: BP 108/58; PULSE 76
[2025-05-19 20:45] VITALS: PULSE 76; RESP 16; O2SAT 97
[2025-05-20] MEDS: MELATONIN 10 MG TABLET PO (00:35)
[2025-05-20 06:24] VITALS: PULSE 72; RESP 16
[2025-05-20 10:29] VITALS: PULSE 100
[2025-05-20] MEDS: APIXABAN 5 MG TABLET PO ×2 (10:29→21:20)
[2025-05-20] MEDS: 0.9% Saline Lock 10 ML Syringe IV ×2 (10:43→21:23)
[2025-05-20 13:12] VITALS: BP 92/59; PULSE 96; RESP 94; TEMP 35.9
[2025-05-20 21:20] VITALS: BP 95/51; PULSE 85; RESP 16; O2SAT 97
[2025-05-20 21:21] VITALS: BP 94/58; PULSE 77; RESP 16; O2SAT 97
[2025-05-21] MEDS: APIXABAN 5 MG TABLET PO ×2 (07:54→21:00)
[2025-05-21 07:55] VITALS: BP 96/55; PULSE 83
[2025-05-21 10:47] VITALS: BP 96/55; PULSE 83; RESP 16; TEMP 36.7; O2SAT 95
[2025-05-21] MEDS: 0.9% Saline Lock 10 ML Syringe IV ×2 (17:41→21:03)
[2025-05-21 20:55] VITALS: BP 106/60; PULSE 103; RESP 16; O2SAT 99
[2025-05-21 21:01] VITALS: BP 106/60; PULSE 103
[2025-05-21] MEDS: MELATONIN 10 MG TABLET PO (23:34)
[2025-05-22 04:56] VITALS: PULSE 92; RESP 17; O2SAT 98
[2025-05-22] MEDS: APIXABAN 5 MG TABLET PO ×2 (09:49→21:41)
[2025-05-22 09:50] VITALS: BP 98/58; PULSE 91
[2025-05-22 10:04] VITALS: BP 98/58; PULSE 91; RESP 18; TEMP 36.3; O2SAT 95
--- NOTE | 2025-05-22 10:48 | NURSING ---
Offered covid vaccine, VIS provided. Resident declines.
[2025-05-22] MEDS: 0.9% Saline Lock 10 ML Syringe IV ×2 (13:03→21:42)
[2025-05-22 21:39] VITALS: BP 94/56; PULSE 75
[2025-05-22 21:41] VITALS: PULSE 75
--- NOTE | 2025-05-23 04:12 | NURSING ---
Written communication left for Dr. Meyers regarding 2 doses of metoprolol held on 05/22/25 due to decreased BP.
[2025-05-23 05:10] VITALS: BP 112/76; PULSE 105; O2SAT 96
[2025-05-23 05:25] VITALS: PULSE 105; O2SAT 99
[2025-05-23 09:34] VITALS: BP 105/66; PULSE 100
[2025-05-23] MEDS: APIXABAN 5 MG TABLET PO ×2 (09:34→22:49)
[2025-05-23 09:36] VITALS: BP 105/66; PULSE 100; RESP 16; TEMP 36.1; O2SAT 96
[2025-05-23 22:49] VITALS: BP 115/75; PULSE 80
[2025-05-23 22:51] VITALS: BP 115/75; PULSE 80
[2025-05-24 06:27] VITALS: PULSE 88; RESP 16; O2SAT 96
--- NOTE | 2025-05-24 08:43 | NURSING ---
Consultants Intern Note; MDS for 05/24/2025 Complete
[2025-05-24] MEDS: APIXABAN 5 MG TABLET PO ×2 (09:33→20:47)
[2025-05-24 09:35] VITALS: BP 97/50; PULSE 72
[2025-05-24] MEDS: Senna/Docusate Sodium 1 Tablet PO (09:36)
--- NOTE | 2025-05-24 09:46 | CASEMGMT ---
Social Work IDT met with patient for care plan meeting. Pt's family could not be available for the meeting, but OPAL suggested having pt record the meeting and IDT agreeable. Pt to share recording with dtr and OPAL. Discussed patient's progress in PT/OT/ST/SN/RDN. Pt voiced wanting to improve further on steps and using least restrictive device. Educated to Medicare benefit. Provided pt/family with written communication of insurance process and copay coverage during stay. Pt lives at home alone and manages all IADLs. PRODUCTION STAFF WORKER has identified min-mild cognition and recommending supervision over those tasks at DC. Pt voiced to SW that she remains interested in counseling at DC and SW offered to make appt at agency of preference prior to DC. SW explained therapy will continue working on pt's goal over the next week, then will determine if pt is ready for a DC date to be set following. Pt agreed. SW will continue to follow for DC planning. Tiana Cool HOSE FINISHER SHOTGUN SHELL ASSEMBLY MACHINE ADJUSTER
[2025-05-24 14:44] VITALS: BP 91/60; PULSE 89; RESP 17; TEMP 36.1; O2SAT 97
[2025-05-24 20:47] VITALS: BP 108/77; PULSE 74
[2025-05-25 07:04] LABS: Hematocrit 39.4 % (37-47); Hemoglobin 12.7 g/dL (12.0-15.0); Immature Granulocytes Count 0.000 X10^3/uL (0.0-0.0); Mean Corp Hgb Conc 32.2 g/dL (32-36); Mean Corpuscular Volume 89.7 fL (81-99); Mean Platelet Vol. 9.2 fl (6.2-12.0); NRBC Flagged by Analyzer 0 % (0-5); POSITIVE MORPHOLOGY YES; Platelet Count 163 K/mm3 (150-450); RBC Distribution Width CV 22.5 % (11.6-14.6); RBC Distribution Width SD 68.4 fl (35.1-43.9); Red Blood Count 4.39 M/mm3 (4.2-5.4); White Blood Count 3.5 K/mm3 (4.4-11.0)
[2025-05-25 07:06] LABS: Differential Indicated SCAN CRITERIA MET
[2025-05-25 07:27] LABS: Anisocytosis 1+
[2025-05-25 07:51] LABS: Anion Gap 10 (5-15); BUN 35 mg/dL (4-19); BUN/Creat Ratio 23.2 RATIO (10-20); Calcium,Total 8.8 mg/dL (7.6-11.0); Carbon Dioxide 26.0 mmol/L (21.0-32.0); Chloride 102 mmol/L (98-108); Estimated Creatinine Clearance 28.50 ml/min (50-250); Glucose 83 mg/dL (70-99); Potassium 4.4 mmol/L (3.3-5.1)
[2025-05-25] MEDS: Tuberculin,Purif.prot.deriv. 50 TU/ML Vial 0.1 ML ID (09:01)
[2025-05-25 09:19] VITALS: BP 96/57; PULSE 91
[2025-05-25] MEDS: APIXABAN 5 MG TABLET PO ×2 (09:20→22:58)
[2025-05-25 09:33] VITALS: BP 96/57; PULSE 91; RESP 18; TEMP 36.1; O2SAT 96
[2025-05-25 14:30] VITALS: PULSE 91; RESP 18; O2SAT 96
[2025-05-25 22:55] VITALS: BP 100/57; PULSE 71; RESP 16; O2SAT 97
[2025-05-25 22:58] VITALS: BP 100/57; PULSE 71
[2025-05-26 05:33] LABS: Differential Indicated SCAN CRITERIA MET; Hematocrit 38.4 % (37-47); Hemoglobin 12.4 g/dL (12.0-15.0); Immature Granulocytes Count 0.010 X10^3/uL (0.0-0.0); Mean Corp Hgb Conc 32.3 g/dL (32-36); Mean Corpuscular Volume 88.9 fL (81-99); Mean Platelet Vol. 8.8 fl (6.2-12.0); NRBC Flagged by Analyzer 0 % (0-5); POSITIVE MORPHOLOGY YES; Platelet Count 146 K/mm3 (150-450); RBC Distribution Width CV 22.8 % (11.6-14.6); RBC Distribution Width SD 69.0 fl (35.1-43.9); Red Blood Count 4.32 M/mm3 (4.2-5.4); White Blood Count 3.5 K/mm3 (4.4-11.0)
[2025-05-26 05:52] LABS: Anisocytosis 2+; Differential Comment SCANNED
[2025-05-26 05:54] LABS: Anion Gap 9 (5-15); BUN 33 mg/dL (4-19); BUN/Creat Ratio 24.9 RATIO (10-20); Calcium,Total 8.5 mg/dL (7.6-11.0); Carbon Dioxide 25.1 mmol/L (21.0-32.0); Chloride 102 mmol/L (98-108); Estimated Creatinine Clearance 31.93 ml/min (50-250); Glucose 83 mg/dL (70-99); Potassium 4.3 mmol/L (3.3-5.1)
[2025-05-26 08:28] VITALS: BP 96/64; PULSE 92
[2025-05-26] MEDS: APIXABAN 5 MG TABLET PO ×2 (08:32→21:34)
[2025-05-26] MEDS: Glycerin/Hypromellose/PEG400 15 ml Bottle 2 DRP EACH EYE ×2 (08:32→13:18)
[2025-05-26 08:39] VITALS: BP 96/64; PULSE 92; RESP 18; TEMP 36.5; O2SAT 95
--- NOTE | 2025-05-26 13:11 | CASEMGMT ---
Social Work SW received call from pt's dtr with inquires about DC. Dtr was concerned about pt being discharged prior to pt being ready. SW explained the goal is for pt to safely DC, but if pt does not meet Medicare criteria, despite pt's belief on being ready, pt will still need to be DC'd. However, SW to assist with coordinating safe DC plans. Pt is progressing well, though, identified some cognitive impairment identified and concerns with pt's meds/finances. Dtr agreed and inquired about a local pharmacy that can prepackage pt's meds. SW confirmed, [facility], can provide that service. Dtr is aware pt was not managing medications effectively and led to pt's admission. SW explained ST evaluation and cognitive findings, thus, pt would likely benefit from additional support at DC. Dtr agreed. Dtr stated [place]05. SW inquired if dtr wanted pt DC'd during that time and dtr declined, not if pt is not ready. SW educated that IDT Huddle will be held next week and SW to follow up on DC recommendations. Dtr appreciative. Tiana Cool AROMATHERAPIST ASSAULT AMPHIBIOUS VEHICLE CREWMAN
[2025-05-26 13:20] VITALS: PULSE 92; RESP 18; O2SAT 95
[2025-05-26 21:30] VITALS: BP 108/69; PULSE 105; RESP 16; O2SAT 99
[2025-05-26 21:33] VITALS: BP 108/69; PULSE 105
[2025-05-27] MEDS: MELATONIN 10 MG TABLET PO ×2 (02:04→20:49)
[2025-05-27 06:00] VITALS: PULSE 76; RESP 17; O2SAT 96
[2025-05-27 06:40] LABS: Hematocrit 35.5 % (37-47); Hemoglobin 11.9 g/dL (12.0-15.0); Immature Granulocytes Count 0.010 X10^3/uL (0.0-0.0); Mean Corp Hgb Conc 33.5 g/dL (32-36); Mean Corpuscular Volume 88.1 fL (81-99); Mean Platelet Vol. 9.1 fl (6.2-12.0); NRBC Flagged by Analyzer 0 % (0-5); POSITIVE DIFFERENTIAL YES; POSITIVE MORPHOLOGY YES; Platelet Count 147 K/mm3 (150-450); RBC Distribution Width CV 23.0 % (11.6-14.6); RBC Distribution Width SD 68.7 fl (35.1-43.9); Red Blood Count 4.03 M/mm3 (4.2-5.4); White Blood Count 3.3 K/mm3 (4.4-11.0)
[2025-05-27 06:45] LABS: Differential Indicated SCAN CRITERIA MET
[2025-05-27 06:59] LABS: Anion Gap 10 (5-15); BUN 33 mg/dL (4-19); BUN/Creat Ratio 24.5 RATIO (10-20); Calcium,Total 8.4 mg/dL (7.6-11.0); Carbon Dioxide 23.3 mmol/L (21.0-32.0); Chloride 103 mmol/L (98-108); Estimated Creatinine Clearance 31.93 ml/min (50-250); Glucose 79 mg/dL (70-99); Potassium 4.3 mmol/L (3.3-5.1)
[2025-05-27 07:08] LABS: Burr Cells 1+; Polychromasia 1+; Reactive Lymphocyte RARE
[2025-05-27 07:09] LABS: Schistocytes RARE; Tear Drop Cell RARE
[2025-05-27 07:10] LABS: Anisocytosis 1+
[2025-05-27 09:08] VITALS: BP 88/52; PULSE 59; RESP 18; TEMP 36.4; O2SAT 92
[2025-05-27 09:12] VITALS: BP 88/52; PULSE 59
[2025-05-27] MEDS: APIXABAN 5 MG TABLET PO ×2 (09:13→20:44)
--- NOTE | 2025-05-27 17:16 | NURSING ---
New order for doppler to left leg due to swelling. Spoke with Dr. Meyers regarding low blood pressure and lasix and aldactone. Per Dr. Meyers if pt is non symptomatic it is okay to give medication. Let pt know and is agreeable. Pt states is dizzy sometimes when walking and standing.
[2025-05-27 20:41] VITALS: BP 104/57; PULSE 94
[2025-05-27 20:44] VITALS: PULSE 94
[2025-05-28 05:58] LABS: Hematocrit 37.0 % (37-47); Hemoglobin 12.0 g/dL (12.0-15.0); Immature Granulocytes Count 0.010 X10^3/uL (0.0-0.0); Mean Corp Hgb Conc 32.4 g/dL (32-36); Mean Corpuscular Volume 90.5 fL (81-99); Mean Platelet Vol. 8.9 fl (6.2-12.0); NRBC Flagged by Analyzer 0 % (0-5); POSITIVE DIFFERENTIAL YES; POSITIVE MORPHOLOGY YES; Platelet Count 145 K/mm3 (150-450); RBC Distribution Width CV 23.1 % (11.6-14.6); RBC Distribution Width SD 73.0 fl (35.1-43.9); Red Blood Count 4.09 M/mm3 (4.2-5.4); White Blood Count 3.1 K/mm3 (4.4-11.0)
[2025-05-28 05:59] LABS: Differential Indicated SCAN CRITERIA MET
[2025-05-28 06:23] LABS: Anion Gap 8 (5-15); BUN 32 mg/dL (4-19); BUN/Creat Ratio 25.0 RATIO (10-20); Calcium,Total 8.4 mg/dL (7.6-11.0); Carbon Dioxide 23.5 mmol/L (21.0-32.0); Chloride 103 mmol/L (98-108); Estimated Creatinine Clearance 33.71 ml/min (50-250); Glucose 82 mg/dL (70-99); Potassium 4.2 mmol/L (3.3-5.1)
[2025-05-28 06:44] LABS: Acanthocytes RARE; Anisocytosis 2+; Crenated RBC 1+; Differential Comment SCANNED; Polychromasia 1+
[2025-05-28 09:43] VITALS: BP 100/68; PULSE 74; RESP 18; TEMP 36.4; O2SAT 97
[2025-05-28] MEDS: APIXABAN 5 MG TABLET PO ×2 (09:44→21:30)
[2025-05-28 09:45] VITALS: PULSE 74
[2025-05-28 20:00] VITALS: PULSE 72; RESP 18; O2SAT 98
[2025-05-28 21:27] VITALS: BP 102/66; PULSE 85
[2025-05-28 21:30] VITALS: PULSE 85
[2025-05-28] MEDS: Glycerin/Hypromellose/PEG400 15 ml Bottle 2 DRP EACH EYE (21:30)
[2025-05-29] MEDS: MELATONIN 10 MG TABLET PO (00:49)
--- NOTE | 2025-05-29 03:33 | NURSING ---
Pt reporting having difficulty sleeping despite PRN Melatonin administration per order. Pt expressing feeling anxious and depressed. Offered moral support, gave pt ample time to express feelings. Pt tearful and discussed willingness to try counseling after discharge, but wants to avoid taking medications to treat depression symptoms. Educated pt that emotional health and well being is important in her care as well as physical health. Pt expressing concern related to difficulty sleeping. Pt requesting to try a different medication to help her sleep at night. Written communication left for Dr. Meyers related to pt's feelings and concern about difficulty sleeping. size worker updated on recent changes in pt condition as well.
[2025-05-29] MEDS: Glycerin/Hypromellose/PEG400 15 ml Bottle 2 DRP EACH EYE (04:39)
[2025-05-29 04:46] VITALS: BP 99/63; PULSE 77
[2025-05-29 04:52] VITALS: PULSE 65; O2SAT 98
[2025-05-29] MEDS: APIXABAN 5 MG TABLET PO ×2 (10:32→21:12)
[2025-05-29 10:33] VITALS: PULSE 82
[2025-05-29 10:36] VITALS: BP 109/59; PULSE 82; RESP 16; TEMP 35.8; O2SAT 97
--- NOTE | 2025-05-29 10:57 | MDS.RN ---
Information for the MDS was obtained from review of the clinical record, interview of resident, staff, and direct observation of resident?s care.
--- NOTE | 2025-05-29 15:06 | CASEMGMT ---
Social Work SW made multiple attempts to see pt today to follow up on mental health and counseling, but pt unavailable. SW will continue attempts. Tiana Cool HOT MIX OPERATOR ORE PUNCHER
[2025-05-29 21:15] VITALS: BP 102/55; PULSE 70
[2025-05-29 22:00] VITALS: BP 102/55; PULSE 70; RESP 16; O2SAT 97
[2025-05-30 08:24] VITALS: BP 102/72; PULSE 61; RESP 17; TEMP 36.1; O2SAT 97
[2025-05-30 08:28] VITALS: PULSE 61
[2025-05-30] MEDS: APIXABAN 5 MG TABLET PO ×2 (08:28→21:22)
--- NOTE | 2025-05-30 10:56 | NURSING ---
Went to st cath pt and she was in BR voiding, pt forgot about needing urine sample, explained to pt will try st cathing her after lunch. pt verbalized understanding.
[2025-05-30 13:45] LABS: Mucous, Urine 0 SEEN /hpf (<or=2+); Red Blood Cells-Urine 0 SEEN /hpf (0-5)
[2025-05-30 13:47] LABS: Color, Urine Yellow (Yellow); Glucose, Dipstick 250 mg/dl (Normal); Ketone-Dipstick Negative (Negative); Leukocyte Esterase-Dipstick 25 /ul (Negative); Nitrite-Dipstick Negative (Negative); Occult Blood-Urine Negative /ul (Negative); Protein-Dipstick Negative (Negative); Specific Gravity, Urine 1.010 (1.002-1.030); Urine Bilirubin Dipstick Negative (Negative)
[2025-05-30 13:54] LABS: Squamous Epithelial Cells - UA 0-5 SEEN /hpf (5-10)
--- NOTE | 2025-05-30 14:04 | CASEMGMT ---
Addendum entered by Tiana Cool 05/30/25 16:17: Dtr returned call. SW provided all the information and dtr agreeable to all suggestions for DC and plans for [facility]. SW inquired if dtr could be more involved with finances. Dtr agreed and already has access to pt's bank accounts. Dtr provided email and SW sent HVAC SALES ENGINEER and MOW resources for dtr to coordinate. Dtr appreciative. Original Note: Social Work SW spoke with pt at bedside. SW provided ongoing active listening. Pt explained last night was a solid's nights rest and was sound asleep when she was awakened this morning with her breakfast tray. Pt shared she was talking to a national sales director nurse (on Thursday evening) and admitted to herself that she does have anxiety, then pt was able to have this deep sleep. SW inquired to pt about sleeping medication. Pt unsure. SW observed pt's presentation. Notable change; slurred speech, eyes heavy, tiredness, difficulty finishing sentences and collecting thoughts, which is not pt's baseline from previous interactions with this worker. SW to notify nursing. Pt was sharing thoughts on counseling. Pt remains fixated on finding a counseling agency and if she wants to attend at [place]. Pt shared she had talked to several friends for their input and one friend noted pt may be re-traumatized from discussing loss of child. SW expressed understanding to concern, though, explained the counselor is trained on trauma-informed care. Thus, if discussing the loss of pt's child is going to re-traumatize, the counselor will pursue other topics. However, if pt need assistance with coping or grieving further with the loss, the counselor can assist with that as well. SW explained there are other areas to address in counseling, such as pt's anxiety, loss of . present and future losses, with the goals to assist pt with healthy coping skills. Pt appreciative of explanation and insight and did agree to counseling. SW offered make appt for pt at [facility] or pt can make appt. Pt asked about insurance coverage. SW explained that would be involved in the referral to determine. Pt requested SW assist with appt and requested Carmela Dodd at [facility]. SW agreed to contact. Pt appreciative. SW directed conversation to DC planning. Pt lives at home alone and reports concern with returning home at this time. KAELYN explored. Pt stated she does not feel strong enough yet, worries about her medical conditions and properly managing her medications, giving the example of nurse taking her BP and administering meds accordingly. SW agreed ensuring pt is taking meds appropriately at home is important. SW noted this worker spoke with pt's dtr on Thursday, and discussed interventions to assist with managing meds. Pt happy to hear SW spoke with dtr and her face lit up with maria isabel. SW educated to using [facility] to prepackage meds. Pt was agreeable. SW suggested hiring a HVAC SALES ENGINEER to check-in on pt daily at home, ensure meds are being taken correctly, vitals are stable, meals are being eaten, and pt is doing well. Pt was agreeable to this and that she could afford the services financially. SW offered resources and pt accepted. Pt stated there is a [employer] family gathering on 06/04 and pt was uncertain about being up for it. SW offered to ask the Dr for [facility] for the gathering, if pt feels stronger throughout the week, she can attend with her dtr, as that may be a good trial day to prepare for DC. Pt agrees to the suggestion. SW notified nursing of [facility] request for about 3p-8p. SW offered to contact dtr to update on conversation and DC planning. Pt appreciative. - KAELYN phoned [facility] and medical records receptionist needs pt to call to provide intake information and make appt. Squaring Shear Operator noted that Carmela Dodd is scheduling into winter and there are no other therapists with earlier availability. - KAELYN left VM with dtr requesting return call to provide update on above. - KAELYN spoke with pt to provide update and information for [facility]. Pt appreciative. Will continue to follow. Tiana Cool ULTRASOUND COORDINATOR ELECTRON BEAM WELDER
[2025-05-30 14:47] VITALS: BMI 27.1
[2025-05-30 21:24] VITALS: BP 95/66; PULSE 53
[2025-05-30 21:30] VITALS: PULSE 53; RESP 17; O2SAT 99
[2025-05-31 05:31] VITALS: PULSE 62
[2025-05-31 09:23] VITALS: PULSE 64
[2025-05-31] MEDS: APIXABAN 5 MG TABLET PO ×2 (09:24→21:29)
[2025-05-31 09:29] VITALS: BP 102/56; PULSE 64; RESP 16; TEMP 35.9; O2SAT 98
[2025-05-31 21:21] VITALS: BP 96/56; PULSE 74
[2025-05-31] MEDS: Glycerin/Hypromellose/PEG400 15 ml Bottle 2 DRP EACH EYE (21:30)
[2025-06-01] MEDS: Glycerin/Hypromellose/PEG400 15 ml Bottle 2 DRP EACH EYE (05:58)
[2025-06-01 09:20] VITALS: PULSE 76
[2025-06-01] MEDS: APIXABAN 5 MG TABLET PO ×2 (09:21→20:38)
[2025-06-01 09:24] VITALS: BP 103/49; PULSE 76; RESP 16; TEMP 36.9; O2SAT 98
[2025-06-01 13:51] VITALS: BP 99/68; PULSE 73
[2025-06-01 20:29] VITALS: BP 103/70; PULSE 68
[2025-06-01 20:35] VITALS: BP 103/70; PULSE 68
[2025-06-01 20:41] VITALS: PULSE 70; RESP 16; O2SAT 92
[2025-06-02 05:13] VITALS: PULSE 66; RESP 16; O2SAT 98
[2025-06-02 09:02] VITALS: BP 100/64; PULSE 96
[2025-06-02] MEDS: APIXABAN 5 MG TABLET PO ×2 (09:02→21:03)
[2025-06-02 09:09] VITALS: BP 100/64; PULSE 96; RESP 18; TEMP 36.3; O2SAT 97
[2025-06-02 21:05] VITALS: BP 112/56; PULSE 72; RESP 16; O2SAT 92
[2025-06-02 21:07] VITALS: BP 112/56; PULSE 72
--- NOTE | 2025-06-02 23:00 | NURSING ---
During HS med pass, this nurse was unwrapping pt's BLE dressings and saw new areas of inflammation on both legs. Pt stated she noticed them around noon today. Pt denied pain in legs and denied pain when areas of inflammation were touched/pressure was applied. Areas were not hot to touch. This nurse outlined the areas for observation. Old dressing in LLE saturated from leg seeping. Dr Meyers notified. BLE dopplers & STAT labs orders, old dressing sent to micro for testing, and SCDs applied per Dr. Meyers.
[2025-06-03 00:12] LABS: Hematocrit 39.1 % (37-47); Hemoglobin 12.6 g/dL (12.0-15.0); Immature Granulocytes Count 0.010 X10^3/uL (0.0-0.0); Mean Corp Hgb Conc 32.2 g/dL (32-36); Mean Corpuscular Volume 92.4 fL (81-99); Mean Platelet Vol. 9.9 fl (6.2-12.0); NRBC Flagged by Analyzer 0 % (0-5); POSITIVE DIFFERENTIAL YES; POSITIVE MORPHOLOGY YES; Platelet Count 171 K/mm3 (150-450); RBC Distribution Width CV 23.8 % (11.6-14.6); RBC Distribution Width SD 78.6 fl (35.1-43.9); Red Blood Count 4.23 M/mm3 (4.2-5.4); White Blood Count 3.0 K/mm3 (4.4-11.0)
[2025-06-03 00:21] LABS: Prothrombin Time (Protime)PT. 25.8 SECONDS (11.7-14.9)
[2025-06-03 00:22] LABS: Partial Thromboplast Time 48.7 Seconds (24.1-36.2)
[2025-06-03 00:23] LABS: Differential Indicated SCAN CRITERIA MET
[2025-06-03 00:45] LABS: Differential Comment SCANNED
[2025-06-03 01:04] LABS: AST(SGOT) 37 U/L (<=31); Alanine Aminotransfer ALT/SGPT 19 U/L (<=34); Albumin, Serum 3.6 g/dL (3.4-4.8); Alkaline Phosphatase 192 U/L (35-104); Anion Gap 13 (5-15); BUN 39 mg/dL (4-19); BUN/Creat Ratio 19.4 RATIO (10-20); Calcium,Total 8.6 mg/dL (7.6-11.0); Carbon Dioxide 20.4 mmol/L (21.0-32.0); Chloride 104 mmol/L (98-108); Estimated Creatinine Clearance 21.37 ml/min (50-250); Globulin 2.7 g/dL (2.2-4.2); Glucose 111 mg/dL (70-99); Potassium 4.3 mmol/L (3.3-5.1)
[2025-06-03 09:55] VITALS: BP 97/73; PULSE 85
[2025-06-03] MEDS: APIXABAN 5 MG TABLET PO ×2 (09:57→21:58)
[2025-06-03 10:16] VITALS: BP 97/73; PULSE 85; RESP 18; TEMP 36.3; O2SAT 98
[2025-06-03 14:00] VITALS: PULSE 95; RESP 18; O2SAT 98
[2025-06-03 22:01] VITALS: BP 101/66; PULSE 107
[2025-06-03 22:05] VITALS: BP 101/66; PULSE 107
[2025-06-04] MEDS: APIXABAN 5 MG TABLET PO ×2 (08:59→22:43)
[2025-06-04 09:00] VITALS: BP 106/70; PULSE 80
[2025-06-04 09:08] VITALS: BP 106/70; PULSE 80; RESP 18; TEMP 36.2; O2SAT 98
--- NOTE | 2025-06-04 10:32 | NURSING ---
dr do notified of pt c/o BLE twitching worse at night, awakens often at night. new order for mirapex 025 QHS. pt updated.
--- NOTE | 2025-06-04 10:57 | NURSING ---
NEW ORDER FOR MIRAPEX 0.25 MG AT HS FOR TWITCHING AT NIGHT TIME.
[2025-06-04 11:30] VITALS: PULSE 80; RESP 18; O2SAT 93
--- NOTE | 2025-06-04 15:24 | NURSING ---
PT LEFT BY WHEEL CHAIR WITH FAMILY MEMBER FOR [facility] FAMILY REUNION AT 1515.
--- NOTE | 2025-06-04 18:44 | NURSING ---
PT RETURNED FROM [place] AT 1845 BY WHEEL CHAIR WITH DAUGHTER.
[2025-06-04 22:46] VITALS: BP 99/55; PULSE 70
[2025-06-05 09:50] VITALS: BP 90/44; PULSE 76; RESP 18; TEMP 36.4; O2SAT 93
[2025-06-05] MEDS: APIXABAN 5 MG TABLET PO ×2 (09:58→21:10)
[2025-06-05 09:59] VITALS: BP 90/44; PULSE 76
--- NOTE | 2025-06-05 11:54 | NURSING ---
electrical service technician reports negative for DVT.
--- NOTE | 2025-06-05 12:58 | PCM.CONS.R ---
Assessment & Plan Assessment/Plan (1) CHRISTOPHER (acute kidney injury): (2) CKD (chronic kidney disease), stage III: QUALIFIERS: Chronic kidney disease stage 3 subtype: stage 3b (GFR 30-44) Qualified Code(s): N18.32 - Chronic kidney disease, stage 3b PLAN: Plan This is an 89-year-old female with past medical history significant for chronic A-fib/flutter, tachycardic induced cardiomyopathy with systolic congestive heart failure per echo January 2025 EF 55%, aortic valve stenosis, pulmonary hypertension, severe tricuspid valve regurgitation, hypertension, hyperlipidemia who was transferred to TCU for rehab after she presented to [place] emergency room for a fall and hyponatremia. Nephrology consulted in view of elevated creatinine. Baseline creatinine has been ranging around 1.2-1.4 mg/dL. Last lab work on June 02 serum creatinine 2.0, potassium 4.3, bicarb 20. Sodium 137. Quite possibly fluctuation in serum creatinine from hemodynamics with hypotension. Blood pressures are stable. Patient is on furosemide 40 mg and Aldactone 25 mg daily. Will continue with current diuretics. Also reviewed with patient importance of fluid restriction. Last sodium 137. Will obtain renal ultrasound. Will obtain urine protein creatinine ratio. Lab work ordered for morning. Patient may need frequent bladder scans given history of urinary retention. Further orders forthcoming as hospitalization evolves, thank you for allowing us participate in the care of Ms. Walls. Assessment and plan reviewed with Dr. Kathleen. HPI Consult Data Date of Consult: 06/05/25 HPI Narrative HPI Narrative: SAEID WALLS, is a 89 F with past medical history significant for hypertension, hypothyroidism, heart failure, chronic A-fib, severe tricuspid regurgitation who was admitted to [facility] on May 14 after she had a fall with hyponatremia (sodium 124), then transferred over to TCU for rehab on May 18. Nephrology consulted in view of elevated creatinine. Patient reports she has not been seen by outside sales in past. Reviewing past creatinine trends patient has had elevated creatinine since around 2022 where current baseline serum creatinine now ranging around 1.2 to 1.4 mg/dL. Last lab work on June 02 creatinine 2.03. Patient denies any recent nausea or vomiting. Blood pressures have been on lower side. Patient is complaining of lower extremity swelling but states is better than before. She denies any difficulty breathing. Patient does report at times she does have urinary retention and has had to have straight cath few times. [facility] Medical History Cough UTI (urinary tract infection) Mood disorder Insomnia Hematoma of rectus sheath Right ventricular dilation Elevated C-reactive protein (CRP) Pain in both upper extremities Hemorrhoid CKD (chronic kidney disease), stage III 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 Longstanding persistent atrial fibrillation Foul smelling urine Hx of fracture of femur Dermatitis Nonrheumatic aortic (valve) stenosis Cystitis Osteoporosis Urinary tract infection with hematuria Vision problems Osteopenia Chronic headaches Cataracts, bilateral Back problem Arthritis Seasonal allergies RBBB DDD (degenerative disc disease) Diverticulosis Pure hypercholesterolemia Anemia Pulmonary hypertension Non-rheumatic mitral regurgitation Nonrheumatic tricuspid valve regurgitation Paroxysmal atrial fibrillation Essential hypertension Hyperlipidemia GERD (gastroesophageal reflux disease) Depression Joint pain Headache Snoring Post-nasal drainage Dyspnea on exertion Anxiety Insomnia due to medical condition Hypothyroidism (acquired) Anticoagulation goal of INR 2 to 3 Hypertension Atrial fibrillation with normal ventricular rate 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 Home Medications ?Medication ?Instructions ?Recorded ?Last Taken ?Type atorvastatin 20 mg tablet 20 mg PO QHS CHOLESTEROL #90 tabs 06/16/24 Unknown Rx alendronate 70 mg tablet See Rx Instructions .Route 06/21/24 Unknown Rx .COMPLEX #14 tabs Handicap Placard #1 ea 08/15/24 Unknown Rx levothyroxine 112 mcg tablet See Rx Instructions .Route 09/26/24 Unknown Rx .COMPLEX #90 tabs acetaminophen 500 mg tablet 1,000 mg (2 x 500 mg) PO Q8 #1 TAB 05/17/25 Unknown Rx apixaban 5 mg tablet (Eliquis) 5 mg PO BID #0 tabs 05/17/25 Unknown Rx cephalexin 500 mg capsule 500 mg PO Q12 #0 caps 05/17/25 Unknown Rx empagliflozin 25 mg tablet 25 mg PO DAILY #0 tabs 05/17/25 Unknown Rx (Jardiance) furosemide 40 mg tablet 40 mg PO DAILY #0 tabs 05/17/25 Unknown Rx melatonin 10 mg disintegrating 10 mg PO QHS PRN PRN Insomnia #0 05/17/25 Unknown Rx tablet tabs metoprolol tartrate 75 mg tablet 75 mg PO BID #1 TAB 05/17/25 Unknown Rx spironolactone 50 mg tablet 25 mg (1/2 x 50 mg) PO DAILY #0 05/17/25 Unknown Rx tabs Allergy/AdvReac Type Severity Reaction Status Date / Time bee venom protein (honey bee) Allergy Unknown UNKNOWN Verified 05/14/25 07:13 propoxyphene (From Allergy Unknown UNKNOWN Verified 05/14/25 07:13 Darvocet-N) codeine AdvReac Other Verified 05/14/25 07:13 Family History Mother Heart disease High cholesterol Osteoporosis CVA (cerebral vascular accident) Hypertension Father Hypertension Alcohol abuse Sister Asthma Hypertension Thyroid disorder Surgical History History of cataract extraction History of cardioversion (~07/15/22) History of total left knee replacement Status post surgical manipulation of ankle joint Status post total left knee replacement Social History household members: none Smoking Status: Never smoker alcohol intake: never substance use type: does not use what type of physical activity do you participate in: none ROS ROS Narrative As in HPI otherwise negative Physical Exam Narrative Alert and oriented x 3, no apparent distress S1, S2, RRR Lungs sound clear anteriorly and posteriorly. No wheezes rhonchi or rales. On room air Abdomen soft, rounded, nontender Pitting edema bilateral lower legs extending up into thighs Lab / Micro Data 06/02/25 23:59 06/02/25 23:59 Micro: Microbiology 06/02/25 10:05 Wound - Leg, Left Gram Stain - Final 06/02/25 10:05 Wound - Leg, Left Wound Culture - Preliminary Mixed Gram Positive Organisms
--- NOTE | 2025-06-05 13:10 | US_ITS ---
PROCEDURE: KIDNEY AND BLADDER 06/05/2025 REASON FOR EXAM: CHRISTOPHER TECHNIQUE: Procedure Code: USKI Modality: US Procedure: KIDNEY AND BLADDER COMPARISON: 01/30/2025 FINDINGS: The right kidney measures 10.7 x 6 x 3.5 cm. Cortex measures 1.4 cm. Echogenic possible stone measuring 0.5 x 0.5 x 0.2 cm is noted. No hydronephrosis. The left kidney measures 10.5 x 5 x 4.5 cm. Cortex measures 1.1 cm. The hyperechoic area is seen in the inferior pole measuring 8 x 8 x 9 mm. No hydronephrosis. Urinary bladder prevoid volume is 380.6 cc. Wall measures 1 mm. Wall is normal. Jets are not visualized. US/Kidney and Bladder IMPRESSION: Right renal possible stone. Left renal hyperechoic area could represent angiomyolipoma. New as compared. [facility]
--- NOTE | 2025-06-05 13:37 | NURSING ---
Off unit to US.
--- NOTE | 2025-06-05 16:55 | CASEMGMT ---
Social Work SW met with pt and with pt's dgt to discuss discharge plan per dgts request. Pt is considering going to an assisted living at time of discharge. SW explained discharge process and need for SW to make referrals to AL of choice. Pt states she will need to talk to her doughnut machine operator helper and financial officer tomorrow before making decisions. Pt stating she would like to go to [facility], however there is a wait list. SW explained that pt may have to go to a second or third choice until something becomes available at her first choice and that pt can then chose to make another move. Pt and dgt to discuss options and SW will continue to follow for dc planning. PAULETTE Molina
[2025-06-05 20:55] VITALS: PULSE 82; O2SAT 97
[2025-06-05 21:08] VITALS: BP 108/54; PULSE 75
[2025-06-05 21:11] VITALS: PULSE 75
[2025-06-05] MEDS: Glycerin/Hypromellose/PEG400 15 ml Bottle 2 DRP EACH EYE (21:11)
[2025-06-06 02:38] VITALS: PULSE 58; O2SAT 92
[2025-06-06 05:56] LABS: Anion Gap 12 (5-15); BUN 40 mg/dL (4-19); BUN/Creat Ratio 24.5 RATIO (10-20); Calcium,Total 9.0 mg/dL (7.6-11.0); Carbon Dioxide 22.0 mmol/L (21.0-32.0); Chloride 106 mmol/L (98-108); Estimated Creatinine Clearance 26.62 ml/min (50-250); Glucose 84 mg/dL (70-99); Potassium 4.1 mmol/L (3.3-5.1)
[2025-06-06] MEDS: APIXABAN 5 MG TABLET PO ×2 (09:17→22:18)
[2025-06-06 09:21] VITALS: BP 87/49; PULSE 84
[2025-06-06 13:19] LABS: Creatinine, Urine (random) 102.00 mg/dL (28.00-217.00); Protein, Urine (Random) 19.9 mg/dL (0.0-12.0); Protein:Creat Ratio 195 mg/g CRE (0-200)
[2025-06-06 14:00] VITALS: BMI 27.4
[2025-06-06 16:00] VITALS: BP 102/75; PULSE 89; RESP 16; TEMP 36.2; O2SAT 99
[2025-06-06 22:15] VITALS: BP 104/54; PULSE 56
[2025-06-06 22:17] VITALS: PULSE 56
--- NOTE | 2025-06-06 23:06 | NURSING ---
Dressing change to LLE completed at 2030 per order.
--- NOTE | 2025-06-07 03:12 | NURSING ---
Written communication left for Dr. Meyers regarding 2 doses of metoprolol held 06/06/25 due to decreased HR/BP.
[2025-06-07] MEDS: APIXABAN 5 MG TABLET PO ×2 (09:03→20:53)
[2025-06-07 09:04] VITALS: PULSE 95
[2025-06-07 09:15] VITALS: BP 100/58; PULSE 95; TEMP 36.1; O2SAT 90
[2025-06-07 20:00] VITALS: PULSE 82; O2SAT 95
[2025-06-07 20:50] VITALS: BP 99/58; PULSE 104
[2025-06-07] MEDS: Glycerin/Hypromellose/PEG400 15 ml Bottle 2 DRP EACH EYE (20:54)
[2025-06-08 06:51] VITALS: PULSE 103; O2SAT 97
--- NOTE | 2025-06-08 08:55 | CASEMGMT ---
Addendum entered by Tiana Cool 06/08/25 16:43: Jesu reviewed referral and scheduled onsite for 06/09 at 1030 [place] reviewed referral as well and may have availability and requested pt contact [facility], [place], to discuss options. - KAELYN updated pt and provided pt with [facility]'s contact information. Original Note: Social Work SW received call from pt stating she and her daughter have been looking into ALs at [place]. Dtr will be returning to town before Thanksgiving on 06/24. SW offered to place referral to ALs to determine acceptance and availability and pt's stay on TCU is coming to an end soon. Pt agreed and requested referrals to [place] and [place]. SW will keep pt updated. - KAELYN sent secure email referrals to both facilities. Tiana Cool MSW NURSES ASSISTANT
[2025-06-08 10:20] VITALS: BP 107/54; PULSE 57
[2025-06-08] MEDS: APIXABAN 5 MG TABLET PO ×2 (10:21→22:55)
[2025-06-08] MEDS: 0.9% Saline Lock 10 ML Syringe IV ×2 (10:47→22:58)
[2025-06-08 15:51] VITALS: BP 107/54; PULSE 57; RESP 18; O2SAT 100
[2025-06-08 16:32] VITALS: BP 102/62; PULSE 61; RESP 18; TEMP 36.4; O2SAT 100
[2025-06-08 22:54] VITALS: BP 91/62; PULSE 102
[2025-06-08 23:03] VITALS: BP 91/62; PULSE 102
[2025-06-09 05:59] LABS: Hematocrit 38.1 % (37-47); Hemoglobin 11.8 g/dL (12.0-15.0); Immature Granulocytes Count 0.020 X10^3/uL (0.0-0.0); Mean Corp Hgb Conc 31.0 g/dL (32-36); Mean Corpuscular Volume 93.6 fL (81-99); Mean Platelet Vol. 9.4 fl (6.2-12.0); NRBC Flagged by Analyzer 0 % (0-5); POSITIVE MORPHOLOGY YES; Platelet Count 134 K/mm3 (150-450); RBC Distribution Width CV 23.3 % (11.6-14.6); RBC Distribution Width SD 78.3 fl (35.1-43.9); Red Blood Count 4.07 M/mm3 (4.2-5.4); White Blood Count 4.1 K/mm3 (4.4-11.0)
[2025-06-09 06:03] LABS: Differential Indicated SCAN CRITERIA MET
[2025-06-09 06:19] LABS: AST(SGOT) 39 U/L (<=31); Alanine Aminotransfer ALT/SGPT 18 U/L (<=34); Albumin, Serum 3.4 g/dL (3.4-4.8); Alkaline Phosphatase 165 U/L (35-104); Anion Gap 11 (5-15); BUN 42 mg/dL (4-19); BUN/Creat Ratio 24.4 RATIO (10-20); Calcium,Total 8.6 mg/dL (7.6-11.0); Carbon Dioxide 23.2 mmol/L (21.0-32.0); Chloride 105 mmol/L (98-108); Estimated Creatinine Clearance 25.22 ml/min (50-250); Globulin 2.4 g/dL (2.2-4.2); Glucose 91 mg/dL (70-99); Potassium 4.4 mmol/L (3.3-5.1)
[2025-06-09 06:33] LABS: Anisocytosis 2+; Differential Comment SCANNED
[2025-06-09 06:39] VITALS: BP 95/60; PULSE 90
[2025-06-09] MEDS: APIXABAN 5 MG TABLET PO ×2 (10:34→21:47)
[2025-06-09] MEDS: Albumin Human 25% (100 mL) 25 GM/100 ML BAG IV ×2 (11:35→13:40)
[2025-06-09] MEDS: 0.9% Saline Lock 10 ML Syringe IV ×4 (11:40→21:48)
--- NOTE | 2025-06-09 15:39 | CASEMGMT ---
Social Work SW completed BIMS () and PHQ-2 () for MDS assessment. SW discussed AL options with pt. [facility] does not have immediate openings, but encouraged to contact [facility] to be placed on a waitlist. Pt stated [place] would not be my first choice. SW offered for pt to DC to [place] until opening at [facility] or [place] and bring minimal belongings. SW explained unsure of DC timeframe, but will follow up with pt after IDT Huddle next week. Pt has had some decline medically and cognitively, per DESIGN MANAGER. SW will continue to follow. Tiana Cool CERTIFIED FIRST ASSISTANT COMPUTATOR
[2025-06-09 16:00] VITALS: BP 93/59; PULSE 100; RESP 16; TEMP 36.2; O2SAT 96
[2025-06-09 21:44] VITALS: BP 108/54; PULSE 99
[2025-06-10 04:37] VITALS: PULSE 118; RESP 16; O2SAT 97
[2025-06-10 05:04] VITALS: BP 105/54; PULSE 102
[2025-06-10] MEDS: 0.9% Saline Lock 10 ML Syringe IV ×2 (05:06→13:56)
[2025-06-10 06:00] VITALS: BMI 27.3
[2025-06-10 07:37] LABS: Anion Gap 13 (5-15); BUN 47 mg/dL (4-19); BUN/Creat Ratio 28.0 RATIO (10-20); Calcium,Total 9.0 mg/dL (7.6-11.0); Carbon Dioxide 21.8 mmol/L (21.0-32.0); Chloride 103 mmol/L (98-108); Estimated Creatinine Clearance 25.82 ml/min (50-250); Glucose 93 mg/dL (70-99); Potassium 4.1 mmol/L (3.3-5.1)
[2025-06-10] MEDS: APIXABAN 5 MG TABLET PO ×2 (09:31→23:13)
[2025-06-10 09:34] VITALS: BP 100/60; PULSE 109; RESP 16; TEMP 36; O2SAT 95
[2025-06-10 14:15] VITALS: BP 100/50; PULSE 114
[2025-06-11] MEDS: 0.9% Saline Lock 10 ML Syringe IV ×3 (00:45→14:29)
--- NOTE | 2025-06-11 02:00 | NURSING ---
Drsgs to bilateral legs and r hip changed this kiah due to weeping. Removed old dressings, cleansed legs with soap and water, rinsed, patted dry. Applied ABD pads over weeping areas and wrapped with kerlix and riky wraps. Pt tolerated well. R hip cleansed with soap and water, rinsed well, applied abd to r hip site.
[2025-06-11 04:36] LABS: Anion Gap 13 (5-15); BUN 49 mg/dL (4-19); BUN/Creat Ratio 30.1 RATIO (10-20); Calcium,Total 8.8 mg/dL (7.6-11.0); Carbon Dioxide 22.3 mmol/L (21.0-32.0); Chloride 104 mmol/L (98-108); Estimated Creatinine Clearance 26.79 ml/min (50-250); Glucose 100 mg/dL (70-99); Potassium 4.0 mmol/L (3.3-5.1)
[2025-06-11 10:14] VITALS: PULSE 111
[2025-06-11 10:24] VITALS: BP 98/59; PULSE 111; RESP 17; TEMP 36.6; O2SAT 96
[2025-06-11] MEDS: Potassium Chloride Oral Tablet 20 MEQ PO ×2 (10:59→16:51)
[2025-06-11 14:49] VITALS: BP 100/49; PULSE 90
[2025-06-11 16:05] VITALS: BMI 27.1
[2025-06-11] MEDS: APIXABAN 2.5 MG TABLET (WCH) PO (21:39)
[2025-06-11 21:42] VITALS: PULSE 61
[2025-06-12 06:09] LABS: Anion Gap 14 (5-15); BUN 47 mg/dL (4-19); BUN/Creat Ratio 27.9 RATIO (10-20); Calcium,Total 8.8 mg/dL (7.6-11.0); Carbon Dioxide 20.3 mmol/L (21.0-32.0); Chloride 105 mmol/L (98-108); Estimated Creatinine Clearance 25.87 ml/min (50-250); Glucose 81 mg/dL (70-99); Potassium 4.2 mmol/L (3.3-5.1)
[2025-06-12 08:13] VITALS: BP 91/57; PULSE 100; RESP 18; TEMP 36.1; O2SAT 95
[2025-06-12] MEDS: Potassium Chloride Oral Tablet 20 MEQ PO ×2 (08:13→17:37)
[2025-06-12] MEDS: APIXABAN 2.5 MG TABLET (WCH) PO ×2 (08:14→22:27)
[2025-06-12 08:17] VITALS: PULSE 100
[2025-06-12 09:39] VITALS: BMI 27.3
[2025-06-12 15:21] VITALS: BP 99/59; PULSE 90
--- NOTE | 2025-06-12 19:16 | PN.TCU_ITS ---
Subjective Subjective Patient seen, examined for regulatory visit. She has had swelling/seeping of bilateral lower extremities, even her hips are seeping. She has dressings/compression wraps to both legs, but the dressings have to be changed frequently because they soak thru. I saw Ana Maria during therapy, she feels she was not able to walk as far today in therapy than previously. She is currently on Furosemide 80mg iv twice daily, but Furosemide often held 2/2 low blood pressure. Ana Maria does admit to some lightheadedness in therapy, which is limiting her ability to do therapy. Objective Data Objective Data Vital Signs: Vital Signs Temp Pulse Resp BP Pulse Ox O2 Del Method 97 F L 90 18 99/59 L 95 Room Air 06/12/25 08:13 06/12/25 15:21 06/12/25 08:13 06/12/25 15:21 06/12/25 08:13 06/12/25 10:30 Oxygen Delivery Method Room Air Weight: 81.148 kg Body Mass Index (BMI) 27.3 Intake & Output: Intake and Output for Last 24 Hours 06/10/25 06/11/25 06/12/25 23:59 23:59 23:59 Intake Total 990 / 990 840 / 840 920 / 920 Balance 990 / 990 840 / 840 920 / 920 Lab / Micro Data 06/09/25 05:10 06/12/25 05:05 Labs: Laboratory Results - last 24 hr 06/12/25 05:05: Sodium 139, Potassium 4.2, Chloride 105, Carbon Dioxide 20.3 L, Anion Gap 14, BUN 47 H, Creatinine 1.68 H, Estim Creat Clear Calc 25.87 L, Est GFR (MDRD) Non-Af 29 L, BUN/Creatinine Ratio 27.9 H, Glucose 81, Calcium 8.8 Micro: Microbiology 06/08/25 08:50 Oral Lesion Herpes Simplex Virus Culture - Final 06/02/25 10:05 Wound - Leg, Left Gram Stain - Final 06/02/25 10:05 Wound - Leg, Left Wound Culture - Final Mixed Gram Positive Organisms 05/30/25 13:40 Urine, Catheterized Urine Culture - Final Presumptive E. coli 05/22/25 06:27 Nasal Secretion SARS-CoV-2 Antigen (Rapid) - Final Physical Exam Const alert General Appearance: cooperative HEENT normocephalic Eyes PERRL and EOMs intact bilaterally Neck supple, no JVD and no carotid bruits Resp normal respiratory effort, normal air movement and clear to auscultation bilaterally Cardio regular rate and regular rhythm GI normal to inspection, nondistended, normoactive bowel sounds, non-tender and non-distended Extremity normal capillary refill General Extremity: edema bilateral lower extremity (Seeping. ) Details: moderate Skin no rashes or lesions noted General Skin Exam: no breakdown Psych affect normal Appearance: appropriate Assessment & Plan Assessment/Plan (1) Debility: (2) Fall: (3) Hyponatremia: (4) Hypothyroidism: (5) UTI (urinary tract infection): QUALIFIERS: Urinary tract infection type: acute cystitis H ematuria presence: with hematuria Qualified Code(s): N30.01 - Acute cystitis with hematuria (6) Atrial fibrillation: (7) Essential (primary) hypertension: (8) Vitamin D deficiency: (9) Coronary artery disease: (10) Hyperlipidemia: (11) Chronic heart failure with preserved ejection fraction (HFpEF): (12) GERD (gastroesophageal reflux disease): (13) Hypokalemia: (14) CKD (chronic kidney disease), stage III: QUALIFIERS: Chronic kidney disease stage 3 subtype: stage 3b (GFR 30-44) Qualified Code(s): N18.32 - Chronic kidney disease, stage 3b PLAN: Plan 89 year old female with below past medical history hospitalized for fall 2/2 hypothyroidism, hyponatremia, urinary tract infection, admitted to TCU with debility, here for rehabiliation, strengthening, prior to discharge home alone. * Debility - PT/OT. * Cognition - ST. * Pain - Tylenol 1000mg q8. * Bowel - senna/colace 1 tablet bid prn, Magnesium citrate 150mL po x 1 prn, Dulcolax 10mg pr dailyi prn. * Adult immunization - Administer pneumonia vaccine, covid vaccine, flu vaccine as appropiate. * DVT prophylaxis - Eliquis. * Herpes simplex - Acyclovir 400mg tid thru 06/15/2025, Lidocaine 2% viscous 1mL q1 prn. * Osteoporosis - Alendronate 70mg qw. * Atrial fibrillation - Metoprolol 12.5mg bid, Eliquis 2.5mg bid. * Hyperlipidemia - Atorvastatin 20mg qhs. * Chronic HFpEF - Metoprolol 12.5mg bid, Furosemide 80mg iv bidlx, weight about same, Ana Maria seeing Eun Prema tomorrow, will follow all recommendations. Limiting factor has been her low blood pressures. * Hypothyroidism - Levothyroxine 112mcg daily. * Insomnia - Melatonin 10mg qhs prn. * Skin irritation - Calmoseptine topical bid. * GERD - Pantoprazole 40mg daily. * Dry eyes - Artificial tears 2gtt ou q1 prn. * Hypokalemia - KCL 20meq bidcm. * Restless leg syndrome - Mirapex 0.25mg qhs.
[2025-06-12 22:27] VITALS: PULSE 66
[2025-06-13 06:17] LABS: Anion Gap 18 (5-15); BUN 45 mg/dL (4-19); BUN/Creat Ratio 25.9 RATIO (10-20); Calcium,Total 8.6 mg/dL (7.6-11.0); Carbon Dioxide 15.1 mmol/L (21.0-32.0); Chloride 106 mmol/L (98-108); Estimated Creatinine Clearance 25.27 ml/min (50-250); Glucose 72 mg/dL (70-99); Potassium 4.5 mmol/L (3.3-5.1)
[2025-06-13 06:24] VITALS: BP 94/54; PULSE 94
[2025-06-13 08:05] VITALS: BMI 27.3
[2025-06-13] MEDS: Potassium Chloride Oral Tablet 20 MEQ PO ×2 (09:37→18:04)
[2025-06-13] MEDS: APIXABAN 2.5 MG TABLET (WCH) PO ×2 (09:38→21:04)
[2025-06-13] MEDS: Glycerin/Hypromellose/PEG400 15 ml Bottle 2 DRP EACH EYE (09:42)
[2025-06-13 09:46] VITALS: BP 90/53; PULSE 89
[2025-06-13 09:49] VITALS: BP 90/53; PULSE 89; RESP 18; TEMP 36; O2SAT 98
[2025-06-13] MEDS: 0.9% Saline Lock 10 ML Syringe IV (09:55)
[2025-06-13 14:03] VITALS: BP 90/60; PULSE 80
[2025-06-13 14:10] VITALS: PULSE 89; RESP 18; O2SAT 98
--- NOTE | 2025-06-13 15:20 | NURSING ---
PT LEFT BY WHEEL CHAIR WITH FAMILY TO [facility] APPOINTMENT AT 1510.
--- NOTE | 2025-06-13 16:30 | NURSING ---
PT RETURNED FROM APPOINTMENT AT [facility] AT 1615 BY WHEEL CHAIR WITH FAMILY. NO NEW ORDERS AT THIS TIME. FAMILY STATED THE DOCTOR WILL CALL TOMORROW AND DISCUSSES ABOUT IV LASIX. RN AWARE
[2025-06-13 21:05] VITALS: PULSE 92
[2025-06-14 05:52] VITALS: BP 91/55
[2025-06-14 06:00] VITALS: BMI 27.4
[2025-06-14 06:48] LABS: Anion Gap 14 (5-15); BUN 56 mg/dL (4-19); BUN/Creat Ratio 28.6 RATIO (10-20); Calcium,Total 9.1 mg/dL (7.6-11.0); Carbon Dioxide 19.9 mmol/L (21.0-32.0); Chloride 104 mmol/L (98-108); Estimated Creatinine Clearance 22.10 ml/min (50-250); Glucose 88 mg/dL (70-99); Potassium 5.0 mmol/L (3.3-5.1)
[2025-06-14 09:21] VITALS: PULSE 86
[2025-06-14] MEDS: APIXABAN 2.5 MG TABLET (WCH) PO ×2 (09:21→22:00)
[2025-06-14] MEDS: Potassium Chloride Oral Tablet 20 MEQ PO ×2 (09:22→18:06)
[2025-06-14 09:29] VITALS: BP 97/54; PULSE 86; RESP 16; TEMP 36.4; O2SAT 95
--- NOTE | 2025-06-14 10:36 | NURSING ---
Pt had appt with [facility] on 06/13/25 No new orders per previous shift.
--- NOTE | 2025-06-14 13:16 | NURSING ---
Received phone call from Eun FLORES with [facility] no new orders at this time continue with current medications. Pt to have F/U in 3 months.
[2025-06-14] MEDS: 0.9% Saline Lock 10 ML Syringe IV ×2 (14:38→22:01)
[2025-06-14 14:40] VITALS: BP 104/57; PULSE 89
--- NOTE | 2025-06-14 16:50 | CASEMGMT ---
Social Work Dr. Meyers expressed concern about pt entering heart failure and not tolerating lasix. Dr will pursue any treatment [facility] recommends and pt agrees to, but hospice may be most appropriate. - KAELYN spoke with pt at bedside. Followed up on appt with SANDRA Ochoa with [facility]. Pt voiced optimism with visit and interventions Eun suggested. Pt reported Dr. Meyers and Eun collaborating on treatment plan and Eun scheduled to see pt again in three months. SW provided active listening and will support pt's wishes. SW did broach discharge conversation explaining [facility] is ready to set a DC date for pt to transition to her next level of care. Pt expressed understanding and recognizes she cannot return home alone. Pt remains interested in AL. KAELYN explained DC would be when dtr is in town the weekend of 06/24, and this worker to plan for DC prior to. SW inquired about choices for AL. Pt's first choice is [place]. KAELYN explained [place] is unsure when there will be availability but offered to follow up if a date can be given. KAELYN encouraged pt to consider a second option, reiterating, it could just be temporary until [place] has a room available. Pt to consider but voiced she will remain optimistic about [place]. KAELYN offered to phone dtr to provide up and gain assistance. Pt agreeable and appreciative. KAELYN will continue to follow. - [employer] notified this worker that pt is requesting to speak with pt again. SW re-entered room, pt stated she has a bad cramp in her leg and knew she couldn't get up to walk on her own and called for this worker because I didn't know what else to do, and I thought, 'Tiana would know what to do'. KAELYN donned gloves and assisted in massaging pt's leg for some relief. KAELYN called for [employer] assistance to stand, stretch leg and walk. [employer] took over and pt appreciative. Time spent: 45 minutes Tiana RAMIREZW
[2025-06-14 18:59] LABS: Free T3 1.8 pg/mL (2.18-3.98)
[2025-06-14 21:52] VITALS: BP 119/53; PULSE 90
[2025-06-14 22:00] VITALS: PULSE 90
[2025-06-14] MEDS: Glycerin/Hypromellose/PEG400 15 ml Bottle 2 DRP EACH EYE (22:00)
[2025-06-15] VITALS (7 sets, daily range): BP systolic 90–104; BP diastolic 49–63; PULSE 76–96; RESP 18; TEMP 36.5; O2SAT 98–100
--- NOTE | 2025-06-15 06:06 | NURSING ---
Rapid response called. Pt sent to ER to r/o stroke per hospitalist. Dr. Meyers notified.
[2025-06-15 06:11] LABS: Anion Gap 13 (5-15); BUN 58 mg/dL (4-19); BUN/Creat Ratio 28.2 RATIO (10-20); Calcium,Total 9.2 mg/dL (7.6-11.0); Carbon Dioxide 19.2 mmol/L (21.0-32.0); Chloride 106 mmol/L (98-108); Estimated Creatinine Clearance 21.18 ml/min (50-250); Glucose 81 mg/dL (70-99); Potassium 5.2 mmol/L (3.3-5.1)
--- NOTE | 2025-06-15 06:39 | NURSING ---
Observed pt to be more confused than baseline at 0550. Pt a&ox2 to self and place, but fixated on being in [place] when assessing for orientation status. R hand behavioral modification assistant 2/4, left hand behavioral modification assistant 4/4. Vitals T 96.9 R 18 BP 90/50 L arm manual, HR 78 and O2 sat 94% on room air. Blood sugar 78. Last known well 0500 during SPANISH TEACHER rounds. Rapid response activated. Per hospitalist, send pt to ED to be evaluated. Notified Dr. Meyers via secure text message of change in pt status and pt being sent to ED for evaluation.
--- NOTE | 2025-06-15 08:52 | CASEMGMT ---
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 - SW presented to ED pt room and friend, Daria ([facility] RN) was present at bedside. Pt immediately recognized this worker and expressed gratitude for visit. SW offered support and received update from pt. Pt stated, I think everyone is trying to tell me I'm dying, but I want to stay optimistic. SW gently explained the Dr is concerned about pt's prognosis and confessed the initial goal of this worker's conversation yesterday was to discuss that further, but pt was optimistic about Eun's PA visit and intervention. Dr agreed to follow recommendations and determine if treatment is helping, but if not, to discuss alternative care options. Pt expressed understanding. At this time, ada entered room. SW told pt this worker will continue to check in with pt and call dtr. Pt appreciative. - KAELYN spoke with Daria outside of room. Daria stated she advised pt not to pursue aggressive treatment at this time. KAELYN explained the Dr is concerned about heart failure and SW was going to discuss hospice with pt. Daria agreed to call dtr and explain everything to her. SW agreed. Daria stated she already spoken to the dtr this morning, so should answer her phone, even if she is at work. SW appreciative of support for pt. - SW phoned dtr, dtr was not yet at work and had time to talk. SW confirmed dtr is aware of pt's change in condition. SW asked to provide clear, concise explanation to dtr as dtr has not seen pt daily, and dtr agreed. SW explained pt has been declining in the past weeks, and Dr expressed concern with pt's heart failing, and was going to recommend hospice if pt had not improved within a few days with Eun's interventions. 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 Dtr expressed understanding and recognize's pt's decline. Dtr voiced hospice would be the best route for pt at this time. KAELYN explained the Dr currently does feel pt is imminent, but SW would suggest dtr coming into town this weekend to provide support to pt and assist with decision making. Dtr agreed. SW reiterated to finish the work week and make plans that suite dtr's schedule, but waiting until Thanksgiving is not recommended, until the ED Drs have a different outcome. Dtr agreed as she was emotional. SW provided verbal support, acknowledged this is a difficult situation and offered for dtr to process, but to contact this worker with questions or support after dtr discusses plans with family. Dtr appreciative. - Pt is returning from the ED. SW to follow up with pt. DR morejon. Tiana Cool MICROBIOLOGICAL LAB TECHNICIAN COLLECTION SYSTEMS MODELER
--- NOTE | 2025-06-15 09:58 | NURSING ---
Returned to unit from ER. Report received from nurse Wilburn. She reported resident given option between hospice and [facility] for evaluation for aneurysm, her and family had discussed, want a couple days to decide.
[2025-06-15 11:16] LABS: Mucous, Urine 0 SEEN /hpf (<or=2+); Red Blood Cells-Urine 0 SEEN /hpf (0-5); Squamous Epithelial Cells - UA 0 SEEN /hpf (5-10)
[2025-06-15] MEDS: APIXABAN 2.5 MG TABLET (WCH) PO ×2 (11:17→22:30)
[2025-06-15 11:22] LABS: Color, Urine Yellow (Yellow); Glucose, Dipstick Normal (Normal); Ketone-Dipstick Negative (Negative); Leukocyte Esterase-Dipstick Negative /ul (Negative); Nitrite-Dipstick Negative (Negative); Occult Blood-Urine Negative /ul (Negative); Protein-Dipstick 15 mg/dl (Negative); Specific Gravity, Urine 1.015 (1.002-1.030); Urine Bilirubin Dipstick Negative (Negative)
--- NOTE | 2025-06-15 11:24 | NURSING ---
STUDENTS WITH TEACHER DID STRAIGHT CATH AND DRESSING CHANGES TO KOMAL LOWER LEGS. PT GAVE HER CONSENT TO DO SO.
--- NOTE | 2025-06-15 12:15 | CASEMGMT ---
Social Work KAELYN returned to pt's room on TCU. Pt appreciative of visit and asked what is going on?. SW asked if pt wanted honesty and direct communication and pt agreed. KAELYN gently explained that [facility] Dr is stating pt will either need to be transferred to [facility] to provide aggressive treatment for her aneurysm or admit to hospice care. Pt became emotional and asking questions on specifics of the treatment. SW redirected pt and pointedly asked if she wanted to pursue aggressive tx or focus on comfort and quality of life. Pt clearly voiced wanting hospice services and not to pursue tx. Pt stated, Oh I want hospice. 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 SW confirmed and stated this worker will assist in navigating the next steps. Updated pt that this worker spoke with Tracee and Tracee plans to visit this weekend and provide support with making decisions and transitions. SW explained no decisions or movement need to be made until Tracee is present and will focus on comfort measures in the meantime. Pt agreed and appreciative. KAELYN inquired if pt wanted to forego the fluid restriction or liberalize FR. SW offered to ask Dr now that hospice is elected. Pt hesitant with that change as she voiced it would not be ea good idea with her heart failure. KAELYN confirmed, but noted pt would have the opportunity to drink more fluids and liberalize her food/beverage choices. Pt will consider. KAELYN confirmed no commitment needed, wanted to provide that option. Pt appreciative. KAELYN will continue to follow pt and follow up with Tracee tomorrow. - KAELYN emailed Ravi at [facility] and their next available apt is first week of July. KAELYN explained that is too long for a DC as pt is electing hospice. Ravi offered to inquire about a possible 06/16 move in, and follow up with this worker. KAELYN appreciative as that would be a better timeframe. KAELYN update charge nurse and Dr. Tiana Cool [facility]
--- NOTE | 2025-06-15 15:02 | NURSING ---
[facility] NOTIFIED FOR CONSULT ON PT FOR CHRISTOPHER PER DR.KWOK GERMAIN. RN AWARE
--- NOTE | 2025-06-15 16:22 | NURSING ---
PT HAD SMALL RT SIDE NOSE BLEED. WILL CONTINUE TO MONITOR.
--- NOTE | 2025-06-15 18:30 | NURSING ---
PT HAS BEEN VERY DELUSIONAL AND EMOTIONAL TODAY AFTER COMING BACK FROM THE ER. IS AWARE.
--- NOTE | 2025-06-16 01:50 | NURSING ---
Patient wailing in bed. Patient denies pain, but appears to be painful saying, OW and repositioning herself often. Patient hallucinating sister in the room, no one other than this nurse and patient in the room. Patient very restless, talking to herself and to family members who are not present. Consulted Dr. Meyers via telephone. New order for Morphine 10mg SL Q1H PRN. Telephone order read back and verified.
[2025-06-16] MEDS: morphine (oral solution) 10MG/0.5ML Syringe 10 MG SL ×7 (02:06→19:56)
[2025-06-16] MEDS: 0.9% Saline Lock 10 ML Syringe IV (05:26)
[2025-06-16 05:49] VITALS: BP 109/71; PULSE 87
[2025-06-16 05:52] LABS: Hematocrit 37.1 % (37-47); Hemoglobin 11.7 g/dL (12.0-15.0); Immature Granulocytes Count 0.030 X10^3/uL (0.0-0.0); Mean Corp Hgb Conc 31.5 g/dL (32-36); Mean Corpuscular Volume 92.1 fL (81-99); Mean Platelet Vol. 10.6 fl (6.2-12.0); NRBC Flagged by Analyzer 0 % (0-5); POSITIVE MORPHOLOGY YES; Platelet Count 104 K/mm3 (150-450); RBC Distribution Width CV 23.5 % (11.6-14.6); RBC Distribution Width SD 78.0 fl (35.1-43.9); Red Blood Count 4.03 M/mm3 (4.2-5.4); White Blood Count 5.4 K/mm3 (4.4-11.0)
[2025-06-16 05:54] LABS: Differential Indicated SCAN CRITERIA MET
[2025-06-16 06:00] VITALS: BMI 29.0
[2025-06-16 06:23] LABS: Anion Gap 15 (5-15); BUN 67 mg/dL (4-19); BUN/Creat Ratio 25.6 RATIO (10-20); Calcium,Total 9.1 mg/dL (7.6-11.0); Carbon Dioxide 17.1 mmol/L (21.0-32.0); Chloride 104 mmol/L (98-108); Estimated Creatinine Clearance 16.66 ml/min (50-250); Glucose 74 mg/dL (70-99); Potassium 5.9 mmol/L (3.3-5.1)
[2025-06-16 07:12] LABS: Anisocytosis 2+; Polychromasia 1+
[2025-06-16 08:43] VITALS: BP 100/56; PULSE 67; RESP 16; O2SAT 98
--- NOTE | 2025-06-16 08:49 | CASEMGMT ---
Addendum entered by Tiana Cool 06/16/25 09:46: Hospice assessment scheduled for 829 tomorrow. IDT and dtr updated. Original Note: Social Work SW notified by Dr. Meyers that pt's condition changed overnight and is now actively dying of heart and kidney failure; recommending hospice [facility], and started comfort meds. requested SW contact dtr with update. - SW phoned dtr to provide update on above. Inquired about dtr's travel plans. Dtr stated she would arrive to the hospital about 3 pm tomorrow, but can look if there is an earlier flight. 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 Dtr confirmed and agreeable to plan. SW explained this worker will make a referral to hospice to schedule a nurse visit for [facility] assessment as close to 3 pm as possible, and if dtr changes her flight, to nofiy this worker or nurse's station and hospice can be updated. SW explained if pt is not stable enough to transfer to hospice, pt can remain comfortable and pass on the unit; educated TCU cannot have a hospice company assist with care. Dtr expressed understanding and appreciation. SW extended sincere condolences and apologized for this news via phone and prior to dtr's work day. Dtr appreciative. - SW received quick return call and dtr changed her flight to arrive by midnight tonight, thus hospice can be scheduled as soon as possible Thursday. SW appreciative. IDT updated. SW sent referral to [facility] via secure email with explanation and to schedule with this worker. Tiana Cool MEDICAL PATHOLOGIST SOCIAL WORKER MASTERS
--- NOTE | 2025-06-16 10:18 | CASEMGMT ---
Addendum entered by Tiana Cool 06/16/25 17:17: SW discussed with and pt will not be stable for hospice transfer tomorrow. KAELYN spoke with Daria, provided support, and Daria agreed to canceling hospice assessment. SW updated hospice and canceled referral. Original Note: Social Work SW presented to pt's room. Several family members present. Pt is resting comfortably. SW observed rapid decline from conversations with pt yesterday. Niece present and SW updated on [facility] assessment at 0830 tomorrow, but if pt is not stable to transfer, pt can remain the unit, which appears may be the case. Niece agreed and appreciative. SW spoke with nurse and agreed to see how the day goes and potentially canceling the hospice assessment in the morning. SW updated Vicky and Jesu to cancel referrals. SW will remain available. Comfort cart requested for family Tiana Cool PLANT ANATOMY TEACHER ANALYSIS ENGINEER
[2025-06-16] MEDS: LORazepam 2 MG/ML Bottle 1 MG PO ×5 (12:20→22:01)
--- NOTE | 2025-06-16 15:39 | CHAPLAIN ---
Type of Pastoral Visit ___ Initial Visit ___ Follow-up Visit ___ On-call Visit ___ General Patient Visit ___ Spiritual Assessment ___ Family Conference _x__ Bereavement ___ Rapid Response ___ Code Blue ___ Other (describe below) Pastoral Care Referral From ___ Patient ___ Family ___ Nurse ___ Physician ___ Global Expansion Sales Director ___ Air Pollution Auditor _x__ Other (describe below) Sacrament/Intervention ___ Active listening ___ Anointing ___ Orthodoxy ___ Bereavement ___ Communion ___ [place] exploration ___ ___ Life review ___ Prayer ___ Reconciliation ___ Sacrament of Sick _x__ Supportive presence ___ Wedding ___ Other (describe below) Pastoral Comments [place] cart in front of door of this patient; staff notified this assistant director of residence life of end-of-life situation for this patient occurring right now; family members are gathered in the room; entered room and introduced self and role to family members; pt is in unresponsive state and in breathing effort; family is surrounding bed; offer of support and seeking to know their needs; one mentions that patient is very private and would not want much attention; other family members state that they are fine and do not need anything at this time; offer of future support if desired
[2025-06-16 19:40] VITALS: TEMP 35.8
[2025-06-16 21:00] VITALS: RESP 12
[2025-06-17] MEDS: morphine (oral solution) 10MG/0.5ML Syringe 10 MG SL (00:46)
--- NOTE | 2025-06-17 01:54 | NURSING ---
Addendum entered by Tello Jackson 06/17/25 03:14: Senior Project Manager, [employer], home notified. [place] [facility] [place] [facility]. [facility] to notify home when body is able to be released. Patient care provided and [place] [facility] [facility] [place] 3:10am. Original Note: Pt's daughter approached this nurse stating My mom just at 0145. Pt assessed by house detective, RN and primary RN. No heart sounds or pulse noted. Notified Dr. Meyers via telephone of pt's passing.
--- NOTE | 2025-06-17 07:02 | DS.PCM_ITS ---
Providers Date of Admission: 05/17/25 Primary Care Physician: Dr. Agnieszka Fish MD Consultations 06/03/25 07:00 Consult: Nephrology Routine Consulting Provider: Brennen Kathleen Reason for Consult: Acute kidney injury. EMERGENT Consult: No MD Notified: Yes Date Notified: 06/03/25 Time Notified: 07:01 Method of Notification: Answering Service Reason For Visit: GENERALIZED WEAKNESS, HYPONATREMIA, FALLS Diagnosis Discharge Diagnosis (1) Debility: Status: Acute Code(s): R53.81 - Other malaise (2) Fall: Status: Inactive Code(s): W19.XXXA - Unspecified fall, initial encounter (3) Hyponatremia: Status: Inactive Code(s): E87.1 - Hypo-osmolality and hyponatremia (4) Hypothyroidism: Status: Inactive Code(s): E03.9 - Hypothyroidism, unspecified (5) UTI (urinary tract infection): Status: Acute Code(s): N39.0 - Urinary tract infection, site not specified Qualifiers: Urinary tract infection type: acute cystitis Hematuria presence: with hematuria Qualified Code(s): N30.01 - Acute cystitis with hematuria (6) Atrial fibrillation: Status: Acute Code(s): I48.91 - Unspecified atrial fibrillation (7) Essential (primary) hypertension: Status: Acute Code(s): I10 - Essential (primary) hypertension (8) Vitamin D deficiency: Status: Acute Code(s): E55.9 - Vitamin D deficiency, unspecified (9) Coronary artery disease: Status: Acute Code(s): I25.10 - Atherosclerotic heart disease of [place] coronary artery without angina pectoris (10) Hyperlipidemia: Status: Chronic Code(s): E78.5 - Hyperlipidemia, unspecified (11) Chronic heart failure with preserved ejection fraction (HFpEF): Status: Acute Code(s): I50.32 - Chronic diastolic (congestive) heart failure (12) GERD (gastroesophageal reflux disease): Status: Chronic Code(s): K21.9 - Gastro-esophageal reflux disease without esophagitis (13) Hypokalemia: Status: Acute Code(s): E87.6 - Hypokalemia (14) CKD (chronic kidney disease), stage III: Status: Chronic Code(s): N18.30 - Chronic kidney disease, stage 3 unspecified Qualifiers: Chronic kidney disease stage 3 subtype: stage 3b (GFR 30-44) Qualified Code(s): N18.32 - Chronic kidney disease, stage 3b Plan 89 year old female with below past medical history hospitalized for fall 2/2 hypothyroidism, hyponatremia, urinary tract infection, admitted to TCU with debility, here for rehabiliation, strengthening, prior to discharge home alone. * Debility - PT/OT. * Cognition - ST. * Pain - Tylenol 1000mg q8. * Bowel - senna/colace 1 tablet bid prn, Magnesium citrate 150mL po x 1 prn, Dulcolax 10mg pr dailyi prn. * Adult immunization - Administer pneumonia vaccine, covid vaccine, flu vaccine as appropiate. * DVT prophylaxis - Eliquis. * Herpes simplex - Acyclovir 400mg tid thru 06/15/2025, Lidocaine 2% viscous 1mL q1 prn. * Osteoporosis - Alendronate 70mg qw. * Atrial fibrillation - Metoprolol 12.5mg bid, Eliquis 2.5mg bid. * Hyperlipidemia - Atorvastatin 20mg qhs. * Chronic HFpEF - Metoprolol 12.5mg bid, Furosemide 80mg iv bidlx, weight about same, Ana Maria seeing Eun Lloyd tomorrow, will follow all recommendations. Limiting factor has been her low blood pressures. * Hypothyroidism - Levothyroxine 112mcg daily. * Insomnia - Melatonin 10mg qhs prn. * Skin irritation - Calmoseptine topical bid. * GERD - Pantoprazole 40mg daily. * Dry eyes - Artificial tears 2gtt ou q1 prn. * Hypokalemia - KCL 20meq bidcm. * Restless leg syndrome - Mirapex 0.25mg qhs. Medications at Discharge Home Medications atorvastatin 20 mg tablet 20 mg PO QHS CHOLESTEROL #90 tabs 06/16/24 alendronate 70 mg tablet See Rx Instructions .Route .COMPLEX #14 tabs 06/21/24 Handicap Placard #1 ea 08/15/24 acetaminophen 500 mg tablet 1,000 mg (2 x 500 mg) PO Q8 #1 TAB 05/17/25 melatonin 10 mg disintegrating tablet 10 mg PO QHS PRN PRN Insomnia #0 tabs 05/17/25 acyclovir 200 mg capsule 400 mg PO Q8H 06/15/25 apixaban 5 mg tablet (Eliquis) 2.5 mg PO BID 06/15/25 furosemide 10 mg/mL injection solution 40 mg IM BID 06/15/25 levothyroxine 137 mcg tablet (Euthyrox) 137 mcg PO DAILY 06/15/25 metoprolol tartrate 75 mg tablet 12.5 mg PO BID 06/15/25 pantoprazole 40 mg tablet,delayed release 40 mg PO DAILY 06/15/25 potassium chloride 20 mEq tablet,extended release(part/cryst) (Klor-Con M) 20 meq PO BID 06/15/25 pramipexole 0.25 mg tablet 0.25 mg PO QHS 06/15/25 Hospital Course Operations None Procedures None Summary of Care Provided Minutes Spent on Discharge: 15 Hospital Course: 89 year old female with below past medical history hospitalized for fall 2/2 hypothyroidism, hyponatremia, urinary tract infection, admitted to TCU with debility, here for rehabilitation, strengthening, prior to discharge home alone. Ana Maria's overall status steadily declining. 06/16/2025 Ana Maria actively dying, comfort medications ordered. 06/17/2025 Ana Maria 01:45AM, family at bedside. Physical Exam Const alert General Appearance: cooperative HEENT normocephalic Eyes PERRL and EOMs intact bilaterally Neck supple, no JVD and no carotid bruits Resp normal respiratory effort, normal air movement and clear to auscultation bilaterally Cardio regular rate and regular rhythm GI normal to inspection, nondistended, normoactive bowel sounds, non-tender and non-distended Extremity normal capillary refill General Extremity: Negative for edema Skin no rashes or lesions noted General Skin Exam: no breakdown Psych affect normal Appearance: appropriate Weight / BMI Weight Weight: 82.1 kg Body Mass Index (BMI) 29.0 ABG / Lab / Microbiology Data 06/16/25 05:22 06/16/25 05:22 Laboratory: Laboratory Results - last 24 hr 06/16/25 05:22: Polychromasia 1+, Anisocytosis 2+ Microbiology: Microbiology 06/08/25 08:50 Oral Lesion Herpes Simplex Virus Culture - Final 06/02/25 10:05 Wound - Leg, Left Gram Stain - Final 06/02/25 10:05 Wound - Leg, Left Wound Culture - Final Mixed Gram Positive Organisms 05/30/25 13:40 Urine, Catheterized Urine Culture - Final Presumptive E. coli 05/22/25 06:27 Nasal Secretion SARS-CoV-2 Antigen (Rapid) - Final D/C Instructions DC O2, CPAP, BIPAP Needs Home O2 Discharge instructions: No Additional Instructions: 06/17/2025 Ana Maria 01:45AM, family at bedside. Please Follow Up With: Dr. Lopez When: Cancel. Meaningful Use Info Meaningful Use Meaningful Use Diagnoses (Choose all that apply): None applicable Discharge Plan Admission Admit Date/Time: 05/17/25 18:13 Primary Reason for Your Visit: Debility. Attending Provider: [place] Meyers Chi Primary Care Provider: Agnieszka Fish Consulting Providers: Brennen Kathleen Disposition Disposition (needs filled in before D/C Order can be placed):
--- NOTE | 2025-06-20 07:53 | MDS.RN ---
Information for the MDS was obtained from review of the clinical record, interview of resident, staff, and direct observation of resident?s care.
== END 2025-06-17 01:45 | DRG 689 ==
PROVIDERS: Nurse Practitioner Adult Health; Admitting Provider Family Medicine Geriatric Medicine; PCP Internal Medicine; Visit Provider Family Medicine Geriatric Medicine
DX: N30.01 Acute cystitis with hematuria (principal); I50.43 Acute on chronic combined systolic (congestive) and diastolic (congestive) heart failure; I13.0 Hypertensive heart and chronic kidney disease with heart failure and stage 1 through stage 4 chronic kidney disease, or unspecified chronic kidney disease; I48.11 Longstanding persistent atrial fibrillation; N17.9 Acute kidney failure, unspecified; E87.1 Hypo-osmolality and hyponatremia; G25.81 Restless legs syndrome; N18.32 Chronic kidney disease, stage 3b; E03.9 Hypothyroidism, unspecified; I25.10 Atherosclerotic heart disease of native coronary artery without angina pectoris; E55.9 Vitamin D deficiency, unspecified; E78.00 Pure hypercholesterolemia, unspecified; K21.9 Gastro-esophageal reflux disease without esophagitis; E87.5 Hyperkalemia; B00.1 Herpesviral vesicular dermatitis; B96.20 Unspecified Escherichia coli [E. coli] as the cause of diseases classified elsewhere; Z79.01 Long term (current) use of anticoagulants; M81.0 Age-related osteoporosis without current pathological fracture; Z79.899 Other long term (current) drug therapy; Z79.890 Hormone replacement therapy; G47.00 Insomnia, unspecified; Z79.84 Long term (current) use of oral hypoglycemic drugs
CPT/HCPCS: 36415; 76770; 80048; 80053; 81001; 82570; 82962; 84156; 84439; 84443; 84481; 85025; 85610; 85730; 87070; 87077; 87086; 87088; 87186; 87205; 87255; 87811; 92507; 92523; 97110; 97112; 97116; 97129; 97130; 97162; 97166; 97530; 97535; P9047; A4216; J1938

== ENCOUNTER → 2025-05-29 | Outpatient (CLI) | payer MEDICARE, OTHER, SELFPAY ==
--- NOTE | 2025-05-29 09:47 | VDLE_ITS ---
Reason For Study Reason For Study: LLE Swelling RIGHT LEFT CFV is compressible, spontaneous, competent and GSV is normal. demonstrates pulsatile venous flow. CFV is compressible, spontaneous, competent, and Procedure demonstrates pulsatile venous flow. This is a venous duplex using B-mode, color flow and FV is compressible, spontaneous, competent and spectral Doppler. demonstrates pulsatile venous flow. Exam performed portable in patient room. POP V is compressible, spontaneous, competent and The exam was diagnostic. demonstrates pulsatile venous flow. A preliminary report was called and/or faxed to TCU T/P Trunk is compressible. RN Sharon. PTV is compressible. LT PerV is compressible. VL/Venous Duplex US, Unilateral Interpretation Summary Deep veins of the left lower extremity are patent and compressible segmentally. There is no evidence of left lower extremity deep vein thrombosis. Valvular competence appears intact within the p roximal deep venous system on the left . The left great saphenous vein appears patent and compressible segmentally. The right common femoral vein is patent and compressible . Pulsatile flow is noted in the deep venous system bilaterally, w hich may be indicative of elevated central venous pressure (i.e. congestive heart failure, pulmonary hypertension, etc.). Clinical correlation is advised. Ordering Physician: West Meyers Chi Referring Physician: Agnieszka Fish Performed By: Cheko Ramos, RVT
== END | disposition home or self-care (01) ==
LOC: CVS 09:47
PROVIDERS: PCP Internal Medicine; Referring Provider Family Medicine Geriatric Medicine; Visit Provider Family Medicine Geriatric Medicine
DX: R22.42 Localized swelling, mass and lump, left lower limb (principal)
CPT/HCPCS: 93971

== ENCOUNTER → 2025-06-05 | Outpatient (CLI) | payer MEDICARE, OTHER, SELFPAY ==
--- NOTE | 2025-06-05 09:17 | VDLE_ITS ---
Reason For Study VL/Venous Duplex US - Rad Extrem
== END | disposition home or self-care (01) ==
LOC: CVS 09:15
PROVIDERS: PCP Internal Medicine; Referring Provider Family Medicine Geriatric Medicine; Visit Provider Family Medicine Geriatric Medicine
DX: M79.89 Other specified soft tissue disorders (principal)
CPT/HCPCS: 93970

== ENCOUNTER 2025-06-08 10:01 | Outpatient (CLI) | payer MEDICARE, OTHER, SELFPAY ==
--- NOTE | 2025-06-08 10:06 | ART_ITS ---
Reason For Study Reason For Study: Cold Legs Procedure A bilateral lower extremity continuous wave Doppler with analog waveform analysis and ankle brachial indexes. Left Segmental Pressures Left brachial= 104mmHg. Left posterior tibial artery = 172mmHg. Left dorsalis pedis artery = 130mmHg. The left posterior tibial artery waveforms are biphasic. The left dorsalis pedis waveforms are biphasic. Right Segmental Pressures Right posterior tibial artery = 149mmHg. Right dorsalis pedis artery = 138mmHg. The right posterior tibial artery waveforms are biphasic. The right dorsalis pedis waveforms are biphasic. Indices The right ankle brachial index by the posterior tibial artery is 1.43. The right ankle brachial index by the dorsalis pedis is 1.33. The left ankle brachial index by the posterior tibial artery is 1.65. The left ankle brachial index by the dorsalis pedis is 1.25. VL/Ankle Brachial Index Interpretation Summary Biphasic Doppler waveforms are noted at ankle level bilaterally. Pulse-volume r ecordings appear satisfactory at ankle level bilaterally. Resting ankle-brachial indices are supra-normal bilaterally. There is evidence of arterial calcification at ankle level bilaterally. There i s no evidence of significant arterial occlusive disease in the lower extremities bilaterally. However, this is a some what limited study. Ordering Physician: West Meyers Chi Referring Physician: Agnieszka Fish Performed By: Cheko Ramos RVT and Student
== END 2025-06-08 23:59 | disposition home or self-care (01) ==
LOC: CVS 10:05
PROVIDERS: PCP Internal Medicine; Referring Provider Family Medicine Geriatric Medicine; Visit Provider Family Medicine Geriatric Medicine
DX: R20.8 Other disturbances of skin sensation (principal)
CPT/HCPCS: 93922

== ENCOUNTER 2025-06-15 06:08 | Emergency (ER) | payer MEDICARE, OTHER, SELFPAY ==
[2025-06-15 06:08] VITALS: BP 101/59; PULSE 102; RESP 16; TEMP 36.3; O2SAT 92; BMI 31.4
--- NOTE | 2025-06-15 06:14 | EKG12_ITS ---
Test Reason : STROKE TEAM Blood Pressure : */* mmHG Vent. Rate : 101 BPM Atrial Rate : * BPM P-R Int : * ms QRS Dur : 96 ms QT Int : 400 ms P-R-T Axes : * 203 209 degrees QTcB Int : 518 ms Atrial fibrillation with rapid ventricular response with premature ventricular or aberrantly conducted complexes Right superior axis deviation Incomplete right bundle branch block Right ventricular hypertrophy Nonspecific ST and T wave abnormality Prolonged QT Abnormal ECG Confirmed by NAVNEET KIM, DAKOTAH ([id number]), communications editor BERNIE WORLEY ([id number]) on 06/19/2025 8:28:34 AM Referred By: Confirmed By: DAKOTAH TOTH MD
--- NOTE | 2025-06-15 06:15 | RAD_ITS ---
PROCEDURE: CHEST 1 VIEW 06/15/2025 REASON FOR EXAM: NEURO DEFICIT, ACUTE, STROKE SUSPECTED TECHNIQUE: Frontal view of the chest. COMPARISON: 05/14/2025 FINDINGS: Hardware: EKG leads overlie the chest Heart: Stable cardiomegaly. Lungs: Lungs are hyperexpanded with chronic interstitial changes, no superimposed process or significant interval change. Bones: The bones are unremarkable. Peripheral calcifications in the thoracic aorta without aneurysm. RAD/Chest 1 View IMPRESSION: Hyperexpanded lungs with chronic interstitial changes, no superimposed acute pu lmonary process Stable cardiomegaly Reading Location: [id number]
--- NOTE | 2025-06-15 06:15 | CT_ITS ---
PROCEDURE: STROKE CTA HEAD AND NECK W/CON 06/15/2025 REASON FOR EXAM: NEURO DEFICIT, ACUTE, STROKE SUSPECTED TECHNIQUE: Procedure Code: [id number].HN Modality: CT Procedure: STROKE CTA HEAD AND NECK W/CON Multiplanar Sagittal and Coronal images were obtained. CONTRAST: 100 cc Isovue 370 One or more dose reduction techniques were used (e.g., Automated exposure control, adjustment of the mA and/or kV according to patient size, use of iterative reconstruction technique). 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 Anterior cerebral arteries: Patent there is a 0.4 x 0.48 cm aneurysm in a distal branch of the right anterior cerebral within a sulcus, image 437/522. There is vascular abnormality in the superior right frontal cortex measuring approximately 0.8 x 0.7 cm, image 45/522. 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 There is a 0.4 x 0.48 cm aneurysm in a distal branch of the right anterior cere bral within a sulcus, image 437/522. There is vascular abnormality in the superior right frontal cortex measuring ap proximately 0.8 x 0.7 cm, image 45/522. Neurosurgical consultation is recommended. Critical results were discussed with Dr. Zamora by Dr. Dawn at the time of dictation. Reading [facility]
--- OUTSIDE RECORDS SUMMARY | 2025-06-15 06:16 | XMS RPT_ITS | CCD ---
Author Organization [facility] Care Team Providers Care Emergency Medical Service Coordinator Name Role Phone DAVINA, SRINATH Unavailable Unavailable [...] SANDRA Crandall Attending Provider Unavail beatriz Pillai CRIB ATTENDANT, CRIB ATTENDANT-C Tammie Referring Provider Dr. Kash Babin Attending Provider [phone] Dr. Kash Babin Referring Provider 1(330) Dr. Kash Babin Other Provider [phone] Dr. Casye Rod Attending Provider [phone] Dr. Radha Fish Attending Provider [phone] Dr. Radha Fish Primary Care Provider [phone] Dr. Radha Fish Referring Provider [phone] Wendy CRIB ATTENDANT, CRIB ATTENDANT-C Tyler Attending Provider 1(330) Dr. Radha Fish Primary Care Provider [phone]) Dr. Radha Fish Referring Provider [phone] Dr. Kash Babin Attending Provider 1(330) Dr. Kash Babin Referring Provider 1(330) Dr. Kash Babin Other Provider [phone] Dr. Casey Rod Attending Provider [phone] Dr. Radha Fish Attending Provider [phone] Wendy CRIB ATTENDANT, CRIB ATTENDANT-C Tyler Attending Provider [phone]) SANDRA Sequeira Attending [...] Attending Provider SANDRA Sequeira Referring Provider SANDRA eSqueira Other Provider [phone] Dr. Casey Rod [...] [phone] Eun Sequeira Attending Provider Eun Sequeira Referring Provider Tammie Neff Attending Provider Tammie Neff Referring Provider Neha MUNGUIA, Dr. Yoon Attending Provider Dr. Car Solomon DO Emergency Provider Polina KIM, Dr. Aaron Attending Provider [phone] Ungerer CRIB ATTENDANT-C, Carla Attending Provider [phone] Polina KIM, Dr. Aaron Primary Care Provider Eun Sequeira Attending Provider [phone] Polina KIM, Dr. Aaron Referring Provider [phone] Polina KIM, Dr. Aaron Primary Care Provider Eun Sequeira Attending Provider [phone] Eun Sequeira Referring Provider [phone] Tarar CRIB ATTENDANT-C, Carla Referring Provider [phone] Polina KIM, Dr. Aaron Primary Care Provider Eun Sequeira Attending Provider Eun Sequeira Referring Provider Anju CRIB ATTENDANT-CDheeraj Attending Provider Anju CRIB ATTENDANT-CDheeraj Attending Provider Dr. Radha Fish MD Primary Care Physician Eun Sequeira Attending Physician Tammie Neff Attending Physician Dr. Car Solomon DO Attending Physician Dr. Car Solomon DO Emergency Department Physic manuel Polina KIM, Dr. Aaron Attending Physician Ungerer CRIB ATTENDANT-CCarla Attending Physician Anju CRIB ATTENDANT-CDheeraj Attending Physician [phone] Polina KIM, Dr. Aaron Primary Care Physician Eun Sequeira Attending Physician [phone] Polina KIM, Dr. Aaron Referring Provider [phone] Polina KIM, Dr. Aaron Primary Care Physician Eun Sequeira Attending Physician [phone] Eun Sequeira Referring Provider [phone] Balwinder KIM, Dr. Randle Emergency Department Physici an Unavailable Justin MUNGUIA, Dr. Jung Admitting Physician Justin MUNGUIA, Dr. Jung Nurse Practitioner Spenser MUNGUIA, Dr. Scott Attending Physician Spenser MUNGUIA, Dr. Scott Nurse Practitioner Luigi KIM, Dr. West Sanon Admitting Physician Luigi KIM, Dr. West [place] Attending Physician Luigi KIM, Dr. West Sanon Referring Provider West Meyers Chi Attending Unavailable LuigiWest Chi Referring Unavailable Oleghe, Efewongbe Primary Care Unavailable [...] Eun Sequeira Attending Unavail able Oleghe, Efewongbe Attending Unavailable Oleghe, Efewongbe Primary Care Unavailable Oleghe, Efewongbe Attending Unavailable Oleghe, Efewongbe Referring Unavailable Oleghe, Efewongbe Primary Care Unavailable Oleghe, Efewongbe Primary Care Unavailable Eun Sequeira Attending Unavail able Eun Sequeira Referring Unavail able Oleghe, Efewongbe Primary Care Unavailable Oleghe, Efewongbe Referring Unavailable Eun Sequeira Attending Unavail able JenniferererCarla Attending Unavailable Ungerer, Carla Referring Unavailable Oleghe, Efewongbe Primary Care Unavailable Luigi, West Chi Attending Unavailable Luigi, West Chi Referring Unavailable Oleghe, Efewongbe Primary Care Unavailable [...] Unavail able Oleghe, Efewongbe Primary Care Unavailable Luigi, West Chi Attending Unavailable Luigi, West Chi Referring Unavailable Oleghe, Efewongbe Primary Care Unavailable Oleghe, Efewongbe Primary Care Unavailable Eun Sequeira Referring Unavail able Eun Sequeira Attending Unavail able Oleghe, Efewongbe Primary Care Unavailable Tammie Pillai Referring Unavailable Tammie Pillai Attending Unavailable Jennifererer, Carla Attending Unavailable Ungerer, Carla Referring Unavailable Oleghe, Efewongbe Primary Care Unavailable Fabiana Anderson Consulting Unavailable Fabiana Anderson Admitting Unavailable Tyler Dueñas Attending Unavailable Oleghe, Efewongbe Primary Care Unavailable Brennen Kathleen Consulting Unavailable Luigi, West Chi Attending Unavailable Luigi, West Chi Admitting Unavailable Oleghe, Efewongbe Primary Care Unavailable Oleghe, Efewongbe Primary Care Unavailable Eun Sequeira Attending Unavail able Eun Sequeira Referring Unavail able Oleghe, Efewongbe Primary Care Unavailable Oleghe, Efewongbe Referring Unavailable Carla Coughlin Attending Unavailable Fabiana Anderson Consulting Unavailable Tyler Dueñas Attending Unavailable Fabiana Anderson Admitting Unavailable Oleghe, Efewongbe Primary Care Unavailable Tyler Dueñas Consulting Unavailable Fabiana Anderson Attending Unavailable Oleghe, Efewongbe Primary Care Unavailable Oleghe, Efewongbe Referring Unavailable Eun Sequeira Attending Unavail able Oleghe, Efewongbe Referring Unavailable Dheeraj Rene NP Attending Unavailable Oleghe, Efewongbe Primary Care Unavailable Oleghe, Efewongbe Referring Unavailable Oleghe, Efewongbe Primary Care Unavailable Eun Sequeira Attending Unavail able Oleghe, Efewongbe Primary Care Unavailable Oleghe, Efewongbe Referring Unavailable Eun Sequeira Attending Unavail able Oleghe, Efewongbe Attending Unavailable Oleghe, Efewongbe Referring Unavailable Oleghe, Efewongbe Primary Care Unavailable Oleghe, Efewongbe Primary Care Unavailable Oleghe, Efewongbe Referring Unavailable Oleghe, Efewongbe Attending Unavailable Oleghe, Efewongbe Referring Unavailable Oleghe, Efewongbe Primary Care Unavailable Carla Coughlin Attending Unavailable Oleghe, Efewongbe Referring Unavailable UngCarla penny Attending Unavailable Oleghe, Efewongbe Primary Care Unavailable Oleghe, Efewongbe Referring Unavailable Eun Sequeira Attending Unavail able Oleghe, Efewongbe Primary Care Unavailable Oleghe, Efewongbe Primary Care Unavailable Eun Sequeira Attending Unavail able Eun Sequeira Referring Unavail able Oleghe, Efewongbe Primary Care Unavailable Eun Sequeira Referring Unavail able Eun Sequeira Attending Unavail able Eun Sequeira Attending Unavail able uEn Sequeira Referring Unavail able Oleghe, Efewongbe Primary Care Unavailable Oleghe, Efewongbe Primary Care Unavailable Car Solomon Attending Unavailable Allergies Allergy Classification Reported Allergen(s) Allergy Type Date of Onset Reaction(s) Facility (3 sources) Bee; Translations: [BEES] Propensity to adverse reactions (disorder) 5 [facility] Repository (20 sources) codeine; Translations: [CODEINE] Drug Allergy 5 Hives [facility] Repository (7 sources) PROPOXYPHENE N-ACETAMINOPHEN; Translations: [PROPOXYPHENE N-ACETAMINOPHEN] Propensity to adverse reactions (disorder) 5 Intolerance [facility] Repository (1 source) OTHER; Translations: [OTHER] Propensity to adverse reactions (disorder) [facility] Repository (20 sources) Propoxyphene Drug Allergy 2 UNKNOWN [facility] (20 sources) bee venom protein (honey bee) Allergy to substance 2 UNKNOWN [facility] (2 sources) Environmental [Other] Propensity to adverse reactions 5 [facility] (1 source) VENOM-HONEY BEE; Translations: [VENOM-HONEY BEE] Propensity to adverse reactions to drug (disorder) 5 [facility] Other [place] Repository (1 source) Propoxyphene Drug Allergy 5 [facility] Repository (1 source) bee venom protein (honey bee) Drug allergy (disorder) 5 [facility] Repository Medications Current Medications Medication Drug Class(es) Dates Sig (Normalized) Sig (Original) acetaminophen 500 mg oral tablet (20 sources) Start: 05-17-2025 Start: 05-17-2025 Start: 09-11-2021 End: 05-17-2025 Start: 09-11-2021 take 1000 mg by mout [...] tablet (20 sources) Factor Xa Inhibitor Start: 05-17-2025 Start: 05-17-2025 Start: 02-09-2025 End: 05-17-2025 B COMPLEX TAB (5 sources) Start: 06-23-2005 take 1 tablet by saulo th once daily B COMPLEX TAB Take 1 tablet by mouth once daily. 0 06/23/2005 Active Start: 06-23-2005 B COMPLEX TAB Take one(1) tablet daily. 0 06/23/2005 Active cephalexin 500 mg oral capsu le (20 sources) Cephalosporin Antibacterial Start: 05-17-2025 Start: 05-17-2025 Start: 02-23-2025 End: 03-20-2025 Start: 10-11-2021 End: 02-07-2022 Start: 09-02-2019 End: 09-12-2019 Start: 09-02-2019 End: 09-12-2019 take 1 capsule by mouth every twelve hours Cephalexin 500 mg capsule Discontinued 500 mg PO Q12H 20 10 0 September 02, 2019 1:00am September 11, 2019 1:00am September 12, 2019 1:08am Start: 04-26-2019 End: 05-25-2019 cholecalciferol 0.05 mg oral capsule (1 source) [...] wear daily for venous insufficiency 20-30 mmHg empagliflozin 25 mg oral tab let (20 sources) Sodium-Glucose Cotransporter 2 Inhibitor Start: 05-17-2025 Start: 05-17-2025 Start: 11-10-2023 End: 11-15-2024 Folic Acid (1 source) take 400 ug by mouth once daily FOLIC ACID ORAL Take 400 mcg by mouth once daily. 0 Active furosemide 40 mg oral tablet (20 sources) Loop Diuretic Start: 05-17-2025 Start: 05-17-2025 Start: 04-14-2025 End: 05-17-2025 Start: 02-16-2025 End: 04-14-2025 Start: 10-16-2021 End: [...] Active 0 .ROUTE .MEDSUPPLY October 08, 2021 12:00am As directed, length of time 3 years Start: 10-08-[address] Active 0 .ROUTE .MEDSUPPLY October 08, 2021 1:00am As directed, length of time 3 years melatonin 10 mg sublingual t ablet (2 sources) Start: 05-17-2025 Start: 05-17-2025 metoprolol tartrate 75 mg or al tablet (20 sources) beta-Adrenergic Jhonny Start: 05-17-2025 Start: 05-17-2025 Start: 09-29-2023 End: 05-17-2025 Start: 12-17-2021 End: 09-29-2023 Start: 12-17-2021 End: [...] BP, HR take 1 tablet by saulo twice daily metoprolol tartrate, short acting, (LOPRESSOR) [...] MULTIVITAMIN TAB (5 sources) Start: 06-23-2005 MULTIVITAMIN TAB Take one(1) tablet daily. 0 06/23/2005 Active Wplvu-8-TRV-EPA-Fish Oil (FISH OIL) 1,000 mg (120 mg-180 mg) cap (1 source) take 1 capsule by mouth twice daily Bqxfl-7-YPW-EPA-Fi sh Oil (FISH OIL) 1,000 mg (120 mg-180 mg) cap Take 2 g by mouth two times a day. 0 Active spironolactone 50 mg oral tablet (20 sources) Aldosterone Antagonist Start: 05-17-2025 Start: 05-17-2025 Start: 11-10-2023 End: 05-17-2025 Vitamin B Comp And C No.3 (20 sources) Start: 04-24-2015 Vitamin B Comp And C [...] Start: 04-24-2015 take 1 capsule by mo uth once daily Vitamin B Comp And C [...] tablet two(2) times daily. 0 06/23/2005 Active chondroitin sulfates 400 mg / glucosamine hydrochloride 500 mg oral capsule (10 sources) Start: 10-14-2017 End: 09-11-2021 Start: 05-28-2006 [...] insufficiency 20-30 mmHg dapagliflozin 10 mg oral tab let (20 sources) Sodium-Glucose Cotransporter 2 Inhibitor Start: 11-15-2024 End: 05-17-2025 24 hr dilTIAZem hydrochlorid e 120 mg [...] doxycycline hyclate 100 mg o ral capsule (5 sources) Tetracycline-class Drug Start: 02-23-2025 End: 03-20-2025 estradiol 0.1 mg/ml vaginal cream (20 sources) Estrogen Start: 09-03-2021 End: 09-11-2021 Start: 01-11-2019 End: 04-06-2019 Start: 01-24-2015 End: 07-05-2018 Start: 10-10-2008 End: 12-24-2023 Estradiol (Estrace) 0.01 % ( 0.1 mg/gram) Cream Discontinued 1 g VAGINAL EVERY WEEK September 03, 2021 1:00am September 11, 2021 8:35pm ESTRACE ferrous sulfate 325 mg oral tablet (20 sources) Start: 10-14-2017 End: 07-05-2018 Dinmwgpm-Vxthyy-Ofx6- D3-C-Antelmo (Glucosamine-Chondr Complx Cplt) 1 EACH tablet (20 sources) Start: 01-24-2015 End: 05-09-2015 take 1 tablet by mouth three times daily Xcrnahhw-Udokzr-Ljs6-D3-C -Antelmo (Glucosamine-Chondr Complx Cplt) 1 EACH tablet Discontinued 1 EACH PO THREE TIMES A DAY January 24, 2015 11:55pm May 09, 2015 12:32pm Start: 01-24-2015 End: 05-09-2015 take 1 tablet by mouth three times daily Xdpjutwa-Fyunov-Oof4-D3-C-Antelmo (Glucosamine-Chondr Complx Cplt) 1 EACH tablet Discontinued 1 NMA PO THREE TIMES A DAY January 24, 2015 12:00am May 09, 2015 12:32pm Start: 01-24-2015 End: 05-09-2015 take 1 tablet by mouth three times daily Sugdpqsh-Uaopem-Jkn6-D3-C-Antelmo (Glucosamine-Chondr Complx Cplt) 1 EACH tablet Discontinued 1 EACH PO THREE TIMES A DAY January 23, 2015 11:00pm May 09, 2015 11:32am Start: 01-24-2015 End: 05-09-2015 take 1 tablet by mouth three times daily Rslnoxsw-Boypkc-Grm5-D3-C-Antelmo (Glucosamine-Chondr Complx Cplt) 1 EACH tablet Discontinued 1 EACH PO THREE TIMES A DAY January 24, 2015 12:00am May 09, 2015 12:32pm Kbybvdexqql-Fxyiczngd-Bnd C- Mn (20 sources) Start: 10-14-2017 End: 09-11-2021 Zvyfxmemmor-Lyfricblq-Qdr C- Mn Discontinued 2 EACH PO THREE TIMES A DAY October 14, 2017 2:39pm September 11, 2021 8:35pm Start: 10-14-2017 End: 09-11-2021 Qawpbyetmxi-Arzhmuayy-Fjn C- Mn Discontinued 2 EACH PO THREE TIMES A DAY October 13, 2017 11:00pm September 11, 2021 7:35pm Start: 10-14-2017 End: 09-11-2021 Snqflktmszh-Refqxqaix-Mbj C- Mn Discontinued 2 EACH PO THREE TIMES A DAY October 14, 2017 12:00am September 11, 2021 8:35pm Hanozaehtnp-Yixbqtfxe-Yth C-Mn 1 EACH capsule (6 sources) Start: 10-14-2017 End: 09-11-2021 take 1 capsule by mouth three times daily Vvbtuzqogko-Vkcnkchxz-Vwx C-Mn 1 EACH capsule Discontinued 2 NMA PO THREE TIMES A DAY October 14, 2017 12:00am September 11, 2021 8:35pm SUPPLEMENT Start: 10-14-2017 End: 09-11-2021 take 1 capsule by mouth three times daily Joipsvvwptb-Bzpxmggfz-Eqz C-Mn 1 EACH capsule Discontinued 2 NMA [...] End: 07-05-2018 metOLazone 5 mg oral tablet (15 sources) Thiazide-like Diuretic Start: 02-22-2025 End: 03-20-2025 mupirocin 0.02 mg/mg topical ointment (20 sources) RNA Synthetase Inhibitor Antibacterial Start: 07-05-2018 End: 01-28-2019 nitrofurantoin, macrocrystal s 25 mg / nitrofurantoin, monohydrate 75 mg oral capsule (20 sources) Nitrofuran Antibacterial Start: 05-09-2025 End: 05-17-2025 Start: 04-09-2025 End: 04-12-2025 Start: 03-20-2025 End: 03-25-2025 Start: 05-25-2019 End: 06-14-2019 Muetd-8i-Rqb-Epa-Fish Oil-D3 (20 sources) Start: 01-24-2015 End: 07-05-2018 take 1 capsule by mouth once daily Ljxlm-4v-Bjj-Epa-Fish Oil-D3 Discontinued 1 CAP PO DAILY January 24, 2015 11:55pm July 05, 2018 10:17am Start: 01-24-2015 End: 07-05-2018 take 1 capsule by mouth once daily Aeaia-4k-Dol-Epa-Fish Oil-D3 Discontinued 1 CAP PO DAILY January 23, 2015 11:00pm July 05, 2018 9:17am Start: 01-24-2015 End: 07-05-2018 take 1 capsule by mouth once daily Agtaa-0m-Iou-Epa-Fish Oil-D3 Discontinued 1 CAP PO DAILY January 24, 2015 12:00am July 05, 2018 10:17am Xejsp-3k-Sid-Epa-Fish Oil-D3 1 EACH capsule (6 sources) Start: 01-24-2015 End: 07-05-2018 take 1 capsule by mouth once daily Fnijk-8e-Gpa-Epa-Fish Oil-D3 1 EACH capsule Discontinued 1 NMA [...] distal end of left femur, initial encounter ([facility]) Take 1 tablet by mouth [...] 3 months then daily polyethylene glycol 3350 [id number] mg powder for oral solution (20 sources) [...] End: 09-11-2021 Warfarin Discontinued 4.5 MG PO WE August 28, 2021 1:00am September 11, 2021 [...] daily Warfarin Discontinued 4.5 MG PO DAILY 45 May 09, 2020 2:28pm [...] Date Episodic/Chronic Acute and unspecified renal failure (2 sources) Acute kidney failure, unspecified; Translations: [HANH (acute [...] kidney disease] 03-18-2024 Chronic Chronic kidney disease (2 sources) Chronic kidney disease; Translations: [Chronic kidney disease, [...] [Angina at rest] Onset: 12-24-2023 07-21-2023 Chronic Disorders of lipid metabolism (20 sources) Pure hypercholesterolemia; Translations: [Pure hypercholesterolemia, unspecified] Onset: 12-19-2005 Chronic Diverticulosis and diverticulitis (5 sources) Diverticulosis of colon; Translations: [Diverticulosis of large intestine without perforation or abscess without bleeding] 12-19-2005 Chronic E Codes: Fall (20 sources) Fall; Translations: [Unspecified fall, initial encounter] Onset: 06-13-2025 09-05-2021 Episodic Esophageal disorders (20 sources) Gastroesophageal reflux disease; Translations: [Gastro-esophageal reflux disease without esophagitis] Onset: 06-13-2025 Chronic Essential hypertension (20 sources) Essential hypertension; [...] Translations: [Unspecified mood [affective] disorder] 03-01-2025 Chronic Nutritional deficiencies (5 sources) Vitamin D deficiency; Translations: [Vitamin D deficiency, unspecified] Onset: 06-13-2025 05-17-2025 Chronic Osteoporosis (20 sources) Osteoporosis; Translations: [Age-related osteoporosis without current pathological fracture] Onset: 09-01-2024 Chronic Other aftercare (20 sources) Drug 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; Translations: [terminologist (current) use of anticoagulants] 09-05-2021 Episodic Other aftercare (20 sources) Long-term current use of anticoagulant; Translations: [halfway (current) use of anticoagulants] 11-24-2018 Episodic Other aftercare (20 sources) Anticoagulant effect; Translations: [Encounter for therapeutic drug level monitoring] 01-11-2019 Episodic Other aftercare (3 sources) halfway (current) use of anticoagulants; Translations: [Anticoagulated on Coumadin] Onset: 01-31-2025 Episodic Other aftercare (20 sources) Post-discharge follow-up; Translations: [Encounter for follow-up examination after completed treatment for conditions other than malignant neoplasm] 02-23-2025 Episodic Other and ill-defined cerebrovascular disease (6 sources) Intracranial aneurysm; Translations: [Cerebral aneurysm, nonruptured] Chronic Other and ill-defined cerebrovascular disease (1 source) Cerebral aneurysm, nonruptured; Translations: [Cerebral aneurysm, nonruptured] Onset: 05-22-2025 Chronic Other and ill-defined heart disease (20 [...] arm] 09-01-2024 Episodic Other connective tissue disease (5 sources) Pain of left calf; Translations: [Pain in left lower leg] 06-10-2022 Episodic Other connective tissue disease (5 sources) Pain of bilateral upper limbs; Translations: [Pain in right arm] 09-01-2024 Episodic Other connective tissue disease (1 source) Repeated falls; Translations: [Repeated falls] Onset: 05-24-2025 Episodic Other diseases of kidney and ureters [...] [Personal history of traumatic fracture] Episodic Other liver diseases (2 sources) Enzyme level - finding; Translations: [Transaminitis] 05-17-2025 Episodic Other lower respiratory disease (20 sources) Dyspnea on exertion; Translations: [Dyspnea, unspecified] 10-15-2017 Episodic Other lower respiratory disease (20 sources) Cough; Translations: [Cough] 01-11-2019 Episodic Other lower respiratory disease (1 source) Cough; Translations: [Cough] Onset: 04-14-2025 Episodic Other nutritional; endocrine; and metabolic disorders (4 sources) Gilbert's syndrome; 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 Chronic Other nutritional; endocrine; and metabolic disorders (1 source) Gilbert syndrome; 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] Onset: 05-22-2025 Chronic Other skin disorders (1 source) Localized swelling, mass and lump, left lower limb; Translations: [Localized swelling, mass and lump, left lower limb] Onset: 06-06-2025 Episodic Other upper respiratory infections (20 sources) Nasal discharge; Translations: [Postnasal drip] 01-11-2019 Episodic Pulmonary heart disease (20 sources) Pulmonary hypertension; Translations: [Pulmonary hypertension, unspecified] Chronic Residual codes; unclassified (20 sources) 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; Translations: [Insomnia due to medical condition] 01-11-2019 Chronic Residual codes; unclassified (20 sources) Insomnia; Translations: [Insomnia, unspecified] Onset: 06-23-2005 12-19-2005 Episodic Residual codes; unclassified (4 sources) Noncompliance with medication regimen; Translations: [Noncompliance with medication regimen] 05-25-2025 Episodic Spondylosis; intervertebral disc disorders; other back [...] with medication regimen for other reason] Onset: 05-22-2025 Unclassified (1 source) Cough, unspecified; Translations: [Cough, unspecified] Onset: 04-29-2025 Unclassified (1 source) Longstanding persistent atrial fibrillation; Translations: [Longstanding persistent atrial fibrillation] Onset: 04-14-2025 Urinary tract infections (20 sources) Urinary tract infectious disease; Translations: [Urinary tract infection, site not specified] Onset: 05-09-2025 04-01-2019 Episodic Past or Other Problems Problem Classification Problem Date Documented Da te Episodic/Chronic Abdominal pain (19 sources) Abdominal pain; Translations: [Unspecified abdominal pain] Onset: 02-08-2025 01-30-2025 Episodic Deficiency and other anemia (1 source) Anemia, unspecified; Translations: [Anemia, unspecified] Onset: 03-01-2025 Episodic Other connective tissue disease (2 sources) Nontraumatic hematoma of soft tissue; Translations: [Nontraumatic hematoma of soft tissue] Onset: 03-02-2025 Episodic Other lower respiratory disease (5 sources) [...] Onset: 07-03-2022 07-15-2022 Episodic Comment on above: [facility]: 07/15/22, 10/15; [facility]: 2010, 2015 Results Test Name Value Interpretation Reference Range Facility Basic Metabolic Profile (BMP )on 06-13-2025 BUN/CRE 25.9 RATIO High 05-22 [facility] Comment on above: Performed By: #### L 500.2500 ####[facility] [address] [place], [address] Calcium [Mass/Vol] 8.6 mg/dL Normal 7.6-11.0 [facility] Comment on above: Performed By: #### L 500.2500 ####[facility] [address] [place], [address] Chloride [Moles/Vol] 106 mmol/L Normal 98-108 [facility] Comment on above: Performed By: #### L 500.2500 ####[facility] [address] [place], [address] CO2 [Moles/Vol] 15.1 mmol/L Low 21.0-32.0 [facility] Comment on above: Performed By: #### L 500.2500 ####[facility] [address] [place], [address] Creatinine [Mass/Vol] 1.72 mg/dL High 0.70-1.20 [facility] Comment on above: Performed By: #### L 500.2500 ####[facility] [address] [place], [address] ECRCL 25.27 ml/min Low 50-250 [facility] Comment on above: Performed By: #### L 500.2500 ####[facility] [address] [place], [address] GAP 18 High 5-15 [facility] Comment on above: Performed By: #### L 500.2500 ####[facility] [address] [place], [address] GFR/1.73 sq M.predicted among non-blacks MDRD (S/P/Bld) [Vol rate/Area] 28 mL/min/{1.73_m2} Low >60 [facility] Comment on above: Result Comment: mL/m in/1.73m2 CKD-EPI Creatinine Equation (2020) Performed By: #### L 500.2500 ####[facility] [address] [place], [address] Glucose [Mass/Vol] 72 mg/dL Normal 70-99 [facility] Comment on above: Performed By: #### L 500.2500 ####[facility] [address] [place], [address] Potassium [Moles/Vol] 4.5 mmol/L Normal 3.3-5.1 [facility] [facility] Comment on above: Performed By: #### L 500.2500 ####[facility] [address] [place], [address] Sodium [Moles/Vol] 139 mmol/L Normal 133-145 [facility] Comment on above: Performed By: #### L 500.2500 ####[facility] [address] [place], [address] Urea nitrogen [Mass/Vol] 45 mg/dL High 4-19 [facility] Comment on above: Performed By: #### L 500.2500 ####[facility] [address] [place], [address] Basic Metabolic Profile (BMP )on 06-12-2025 BUN/CRE 27.9 RATIO High 10-20 [facility] Comment on above: Performed By: #### L 500.2500 ####[facility] [address] [place], [address] Calcium [Mass/Vol] 8.8 mg/dL Normal 7.6-11.0 [facility] Comment on above: Performed By: #### L 500.2500 ####[facility] [address] [place], [address] Chloride [Moles/Vol] 105 mmol/L Normal 98-108 [facility] Comment on above: Performed By: #### L 500.2500 ####[facility] [address] [place], [address] CO2 [Moles/Vol] 20.3 mmol/L Low 21.0-32.0 [facility] Comment on above: Performed By: #### L 500.2500 ####[facility] [address] [place], [address] Creatinine [Mass/Vol] 1.68 mg/dL High 0.70-1.20 [facility] Comment on above: Performed By: #### L 500.2500 ####[facility] [address] [place], [address] ECRCL 25.87 ml/min Low 50-250 [facility] Comment on above: Performed By: #### L 500.2500 ####[facility] [address] [place], [address] GAP 14 Normal 5-15 [facility] Comment on above: Performed By: #### L 500.2500 ####[facility] [address] [place], [address] GFR/1.73 sq M.predicted among non-blacks MDRD (S/P/Bld) [Vol rate/Area] 29 mL/min/{1.73_m2} Low >60 [facility] Comment on above: Result Comment: mL/m in/1.73m2 CKD-EPI Creatinine Equation (2020) Performed By: #### L 500.2500 ####[facility] [address] [place], [address] Glucose [Mass/Vol] 81 mg/dL Normal 70-99 [facility] Comment on above: Performed By: #### L 500.2500 ####[facility] [address] [place], [address] Potassium [Moles/Vol] 4.2 mmol/L Normal 3.3-5.1 [facility] Comment on above: Performed By: #### L 500.2500 ####[facility] [address] [place], [address] Sodium [Moles/Vol] 139 mmol/L Normal 133-145 [facility] Comment on above: Performed By: #### L 500.2500 ####[facility] [address] [place], [address] Urea nitrogen [Mass/Vol] 47 mg/dL High 4-19 [facility] Comment on above: Performed By: #### L 500.2500 ####[facility] [address] [place], [address] Culture, Herpes Simplex Viru son 06-12-2025 [facility] Normal [facility] Comment on above: Performed By: #### M 600.3000 ####[facility] [address] [place], [address] Basic Metabolic Profile (BMP )on 06-11-2025 BUN/CRE 30.1 RATIO High 10-20 [facility] Comment on above: Performed By: #### L 500.2500 ####[facility] [address] [place], [address] Calcium [Mass/Vol] 8.8 mg/dL Normal 7.6-11.0 [facility] Comment on above: Performed By: #### L 500.2500 ####[facility] [address] [place], [address] Chloride [Moles/Vol] 104 mmol/L Normal 98-108 [facility] Comment on above: Performed By: #### L 500.2500 ####[facility] [address] [place], [address] CO2 [Moles/Vol] 22.3 mmol/L Normal 21.0-32.0 [facility] Comment on above: Performed By: #### L 500.2500 ####[facility] [address] [place], [address] Creatinine [Mass/Vol] 1.63 mg/dL High 0.70-1.20 [facility] Comment on above: Performed By: #### L 500.2500 ####[facility] [address] [place], [address] ECRCL 26.79 ml/min Low 50-250 [facility] Comment on above: Performed By: #### L 500.2500 ####[facility] [address] [place], [address] GAP 13 Normal 5-15 [facility] Comment on above: Performed By: #### L 500.2500 ####[facility] [address] [place], [address] GFR/1.73 sq M.predicted among non-blacks MDRD (S/P/Bld) [Vol rate/Area] 30 mL/min/{1.73_m2} Low >60 [facility] Comment on above: Result Comment: mL/m in/1.73m2 CKD-EPI Creatinine Equation (2020) Performed By: #### L 500.2500 ####[facility] [address] [place], [address] Glucose [Mass/Vol] 100 mg/dL High 70-99 [facility] Comment on above: Performed By: #### L 500.2500 ####[facility] [address] [place], [address] Potassium [Moles/Vol] 4.0 mmol/L Normal 3.3-5.1 [facility] Comment on above: Performed By: #### L 500.2500 ####[facility] [address] [place], [address] Sodium [Moles/Vol] 139 mmol/L Normal 133-145 [facility] Comment on above: Performed By: #### L 500.2500 ####[facility] [address] [place], [address] Urea nitrogen [Mass/Vol] 49 mg/dL High 4-19 [facility] Comment on above: Performed By: #### L 500.2500 ####[facility] [address] [place], [address] Basic Metabolic Profile (BMP )on 06-10-2025 BUN/CRE 28.0 RATIO High 10-20 [facility] Comment on above: Performed By: #### L 500.2500 ####[facility] [address] [place], [address] Calcium [Mass/Vol] 9.0 mg/dL Normal 7.6-11.0 [facility] Comment on above: Performed By: #### L 500.2500 ####[facility] [address] [place], [address] Chloride [Moles/Vol] 103 mmol/L Normal 98-108 [facility] Comment on above: Performed By: #### L 500.2500 ####[facility] [address] [place], [address] CO2 [Moles/Vol] 21.8 mmol/L Normal 21.0-32.0 [facility] Comment on above: Performed By: #### L 500.2500 ####[facility] [address] [place], [address] Creatinine [Mass/Vol] 1.69 mg/dL High 0.70-1.20 [facility] Comment on above: Performed By: #### L 500.2500 ####[facility] [address] [place], [address] ECRCL 25.82 ml/min Low 50-250 [facility] Comment on above: Performed By: #### L 500.2500 ####[facility] [address] [place], [address] GAP 13 Normal 5-15 [facility] Comment on above: Performed By: #### L 500.2500 ####[facility] [address] [place], [address] GFR/1.73 sq M.predicted among non-blacks MDRD (S/P/Bld) [Vol rate/Area] 29 mL/min/{1.73_m2} Low >60 [facility] Comment on above: Result Comment: mL/m in/1.73m2 CKD-EPI Creatinine Equation (2020) Performed By: #### L 500.2500 ####[facility] [address] [place], [address] Glucose [Mass/Vol] 93 mg/dL Normal 70-99 [facility] Comment on above: Performed By: #### L 500.2500 ####[facility] [address] [place], [address] Potassium [Moles/Vol] 4.1 mmol/L Normal 3.3-5.1 [facility] Comment on above: Performed By: #### L 500.2500 ####[facility] [address] [place], [address] Sodium [Moles/Vol] 138 mmol/L Normal 133-145 [facility] Comment on above: Performed By: #### L 500.2500 ####[facility] [address] [place], [address] Urea nitrogen [Mass/Vol] 47 mg/dL High 4-19 [facility] Comment on above: Performed By: #### L 500.2500 ####[facility] [address] [place], [address] CBC W/Diff, Automatedon 11-0 Anisocytosis Ql (Bld) 2+ Normal [facility] Comment on above: Performed By: #### L 100.0100, L500.4050 ####[facility] [address] [place], [address] SMEAR COMMENT SCANNED Normal [facility] Comment on above: Performed By: #### L 100.0100, L500.4050 ####[facility] [address] [place], [address] Comprehensive Metabolic Prof ilon 06-09-2025 Albumin [Mass/Vol] 3.4 g/dL Normal 3.4-4.8 [facility] Comment on above: Performed By: #### L 100.0100, L500.4050 ####[facility] [address] [place], [address] Albumin/Globulin [Mass ratio] 1.4 {ratio} Normal 0.9-2.4 [facility] Comment on above: Performed By: #### L 100.0100, L500.4050 ####[facility] [address] [place], [address] ALK PHOS 165 U/L High 35-104 [facility] Comment on above: Performed By: #### L 100.0100, L500.4050 ####[facility] [address] [place], [address] ALT [Catalytic activity/Vol] 18 U/L Normal <=34 [facility] Comment on above: Performed By: #### L 100.0100, L500.4050 ####[facility] [address] [place], [address] AST [Catalytic activity/Vol] 39 U/L High <=31 [facility] Comment on above: Performed By: #### L 100.0100, L500.4050 ####[facility] [address] [place], [address] Bilirubin [Mass/Vol] 1.90 mg/dL High 0.00-1.30 [facility] Comment on above: Performed By: #### L 100.0100, L500.4050 ####[facility] [address] [place], [address] BUN/CRE 24.4 RATIO High 10-20 [facility] Comment on above: Performed By: #### L 100.0100, L500.4050 ####[facility] [address] [place], [address] Calcium [Mass/Vol] 8.6 mg/dL Normal 7.6-11.0 [facility] Comment on above: Performed By: #### L 100.0100, L500.4050 ####[facility] [address] [place], [address] Chloride [Moles/Vol] 105 mmol/L Normal 98-108 [facility] Comment on above: Performed By: #### L 100.0100, L500.4050 ####[facility] [address] [place], [address] CO2 [Moles/Vol] 23.2 mmol/L Normal 21.0-32.0 [facility] Comment on above: Performed By: #### L 100.0100, L500.4050 ####[facility] [address] [place], [address] Creatinine [Mass/Vol] 1.73 mg/dL High 0.70-1.20 [facility] Comment on above: Performed By: #### L 100.0100, L500.4050 ####[facility] [address] [place], [address] ECRCL 25.22 ml/min Low 50-250 [facility] Comment on above: Performed By: #### L 100.0100, L500.4050 ####[facility] [address] [place], [address] GAP 11 Normal 5-15 [facility] Comment on above: Performed By: #### L 100.0100, L500.4050 ####[facility] [address] [place], [address] GFR/1.73 sq M.predicted among non-blacks MDRD (S/P/Bld) [Vol rate/Area] 28 mL/min/{1.73_m2} Low >60 [facility] Comment on above: Result Comment: mL/m in/1.73m2 CKD-EPI Creatinine Equation (2020) Performed By: #### L 100.0100, L500.4050 ####[facility] [address] [place], [address] Globulin (S) [Mass/Vol] 2.4 g/dL Normal 2.2-4.2 [facility] Comment on above: Performed By: #### L 100.0100, L500.4050 ####[facility] [address] [place], [address] Glucose [Mass/Vol] 91 mg/dL Normal 70-99 [facility] Comment on above: Performed By: #### L 100.0100, L500.4050 ####[facility] [address] [place], [address] Potassium [Moles/Vol] 4.4 mmol/L Normal 3.3-5.1 [facility] Comment on above: Performed By: #### L 100.0100, L500.4050 ####[facility] [address] [place], [address] Sodium [Moles/Vol] 139 mmol/L Normal 133-145 [facility] Comment on above: Performed By: #### L 100.0100, L500.4050 ####[facility] [address] [place], [address] T PROT 5.8 g/dL Low 5.9-8.4 [facility] Comment on above: Performed By: #### L 100.0100, L500.4050 ####[facility] [address] [place], [address] Urea nitrogen [Mass/Vol] 42 mg/dL High 4-19 [facility] Comment on above: Performed By: #### L 100.0100, L500.4050 ####[facility] [address] [place], [address] Ankle Brachial Indexon 06-08 Ankle Brachial Index Normal [facility] Basic Metabolic Profile (BMP )on 06-06-2025 BUN/CRE 24.5 RATIO High 10-20 [facility] Comment on above: Performed By: #### L 500.2500 ####[facility] [address] [place], [address] Calcium [Mass/Vol] 9.0 mg/dL Normal 7.6-11.0 [facility] Comment on above: Performed By: #### L 500.2500 ####[facility] [address] [place], [address] Chloride [Moles/Vol] 106 mmol/L Normal 98-108 [facility] Comment on above: Performed By: #### L 500.2500 ####[facility] [address] [place], [address] CO2 [Moles/Vol] 22.0 mmol/L Normal 21.0-32.0 [facility] Comment on above: Performed By: #### L 500.2500 ####[facility] [address] [place], [address] Creatinine [Mass/Vol] 1.63 mg/dL High 0.70-1.20 [facility] Comment on above: Performed By: #### L 500.2500 ####[facility] [address] [place], [address] ECRCL 26.62 ml/min Low 50-250 [facility] Comment on above: Performed By: #### L 500.2500 ####[facility] [address] [place], [address] GAP 12 Normal 5-15 [facility] Comment on above: Performed By: #### L 500.2500 ####[facility] [address] [place], [address] GFR/1.73 sq M.predicted among non-blacks MDRD (S/P/Bld) [Vol rate/Area] 30 mL/min/{1.73_m2} Low >60 [facility] Comment on above: Result Comment: mL/m in/1.73m2 CKD-EPI Creatinine Equation (2020) Performed By: #### L 500.2500 ####[facility] [address] [place], [address] Glucose [Mass/Vol] 84 mg/dL Normal 70-99 [facility] Comment on above: Performed By: #### L 500.2500 ####[facility] [address] [place], [address] Potassium [Moles/Vol] 4.1 mmol/L Normal 3.3-5.1 [facility] Comment on above: Performed By: #### L 500.2500 ####[facility] [address] [place], [address] Sodium [Moles/Vol] 139 mmol/L Normal 133-145 [facility] Comment on above: Performed By: #### L 500.2500 ####[facility] [address] [place], [address] Urea nitrogen [Mass/Vol] 40 mg/dL High 4-19 [facility] Comment on above: Performed By: #### L 500.2500 ####[facility] [address] [place], [address] Protein+Creatinine Ratio,Uri neon 11-04-2025 PROT:CRE RATIO 195 mg/g CRE Normal 0-200 [facility] Comment on above: Performed By: #### L 501.0900 ####[facility] [address] [place], [address] Protein (U) [Mass/Vol] 19.9 mg/dL High 0.0-12.0 [facility] Comment on above: Performed By: #### L 501.0900 ####[facility] [address] [place], [address] UR CREAT 102.00 mg/dL Normal 28.00-217.0 0 [facility] Comment on above: Performed By: #### L 501.0900 ####[facility] [address], [address] Wound Cultureon 06-06-2025 WC Normal [facility] Comment on above: Performed By: #### M 100.2000, M100.3000 ####[facility] [address] [place], [address] Consultation - Nephrologyon 06-05-2025 Consultation - Nephrology Normal [facility] Kidney and Bladderon 025 Kidney and Bladder Normal [facility] Venous Duplex US - Rad Extre mon 06-05-2025 Venous Duplex US - Rad Extrem Normal [facility] Gram Stainon 06-04-2025 GS List Antibiotics Las t 48 Hours? Cipro saturated ABD + Kerlex from leg seeping Gram Stain No organisms seen No cells seen Normal [facility] Comment on above: Performed By: #### M 100.2000, M100.3000 ####[facility] [address] [place], [address] CBC W/Diff, Automatedon SMEAR COMMENT SCANNED Normal [facility] Comment on above: Result Comment: LYMP HOPENIA PRESENT Performed By: #### L 500.4050, L300.3900, L300.4310, L100.0100 ####[facility] [address] [place], [address] Comprehensive Metabolic Prof lyubovon 06-03-2025 Albumin [Mass/Vol] 3.6 g/dL Normal 3.4-4.8 [facility] Comment on above: Performed By: #### L 500.4050, L300.3900, L300.4310, L100.0100 ####[facility] [address] [place], [address] Albumin/Globulin [Mass ratio] 1.3 {ratio} Normal 0.9-2.4 [facility] Comment on above: Performed By: #### L 500.4050, L300.3900, L300.4310, L100.0100 ####[facility] [address] [place], [address] ALK PHOS 192 U/L High 35-104 [facility] Comment on above: Performed By: #### L 500.4050, L300.3900, L300.4310, L100.0100 ####[facility] [address] [place], [address] ALT [Catalytic activity/Vol] 19 U/L Normal <=34 [facility] Comment on above: Performed By: #### L 500.4050, L300.3900, L300.4310, L100.0100 ####[facility] [address] [place], [address] AST [Catalytic activity/Vol] 37 U/L High <=31 [facility] Comment on above: Performed By: #### L 500.4050, L300.3900, L300.4310, L100.0100 ####[facility] [address] [place], [address] Bilirubin [Mass/Vol] 1.89 mg/dL High 0.00-1.30 [facility] Comment on above: Performed By: #### L 500.4050, L300.3900, L300.4310, L100.0100 ####[facility] [address] [place], [address] BUN/CRE 19.4 RATIO Normal 10-20 [facility] [facility] Comment on above: Performed By: #### L 500.4050, L300.3900, L300.4310, L100.0100 ####[facility] [place] [address] [place], [address] Calcium [Mass/Vol] 8.6 mg/dL Normal 7.6-11.0 [facility] Comment on above: Performed By: #### L 500.4050, L300.3900, L300.4310, L100.0100 ####[facility] [place] [address] [place], [address] Chloride [Moles/Vol] 104 mmol/L Normal 98-108 [facility] Comment on above: Performed By: #### L 500.4050, L300.3900, L300.4310, L100.0100 ####[facility] [address] [place], [address] CO2 [Moles/Vol] 20.4 mmol/L Low 21.0-32.0 [facility] [place] Comment on above: Performed By: #### L 500.4050, L300.3900, L300.4310, L100.0100 ####[facility] [place] [address] [place], [address] Creatinine [Mass/Vol] 2.03 mg/dL High 0.70-1.20 [facility] Comment on above: Performed By: #### L 500.4050, L300.3900, L300.4310, L100.0100 ####[facility] [place] [address] [place], [address] ECRCL 21.37 ml/min Low 50-250 [facility] [place] Comment on above: Performed By: #### L 500.4050, L300.3900, L300.4310, L100.0100 ####[facility] [address] [place], [address] GAP 13 Normal 5-15 [facility] [place] Comment on above: Performed By: #### L 500.4050, L300.3900, L300.4310, L100.0100 ####[facility] [place] [address] [place], [address] GFR/1.73 sq M.predicted among non-blacks MDRD (S/P/Bld) [Vol rate/Area] 23 mL/min/{1.73_m2} Low >60 [facility] [place] Comment on above: Result Comment: mL/m in/1.73m2 CKD-EPI Creatinine Equation (2020) Performed By: #### L 500.4050, L300.3900, L300.4310, L100.0100 ####[facility] [address] [place], [address] Globulin (S) [Mass/Vol] 2.7 g/dL Normal 2.2-4.2 [facility] Comment on above: Performed By: #### L 500.4050, L300.3900, L300.4310, L100.0100 ####[facility] [address] [place], [address] Glucose [Mass/Vol] 111 mg/dL High 70-99 [facility] Comment on above: Performed By: #### L 500.4050, L300.3900, L300.4310, L100.0100 ####[facility] [address] [place], [address] Potassium [Moles/Vol] 4.3 mmol/L Normal 3.3-5.1 [facility] Comment on above: Performed By: #### L 500.4050, L300.3900, L300.4310, L100.0100 ####[facility] [address] [place], [address] Sodium [Moles/Vol] 137 mmol/L Normal 133-145 [facility] Comment on above: Performed By: #### L 500.4050, L300.3900, L300.4310, L100.0100 ####[facility] [address] [place], [address] T PROT 6.3 g/dL Normal 5.9-8.4 [facility] [place] Comment on above: Performed By: #### L 500.4050, L300.3900, L300.4310, L100.0100 ####[facility] [address] [place], [address] Urea nitrogen [Mass/Vol] 39 mg/dL High 4-19 [facility] [place] Comment on above: Performed By: #### L 500.4050, L300.3900, L300.4310, L100.0100 ####[facility] [place] [address] [place], [address] Partial Thromboplast Timeon 06-03-2025 aPTT Coag (Bld) [Time] 48.7 s High 24.1-36.2 [facility] Comment on above: Performed By: #### L 500.4050, L300.3900, L300.4310, L100.0100 ####[facility] [address] [place], [address] Prothrombin Time w/INRon INR Coag (PPP) [Relative time] 2.3 {INR} Normal [facility] [place] Comment on above: Performed By: #### L 500.4050, L300.3900, L300.4310, L100.0100 ####[facility] [place] [address] [place], [address] PT Coag (PPP) [Time] 25.8 s High 11.7-14.9 [facility] Comment on above: Performed By: #### L 500.4050, L300.3900, L300.4310, L100.0100 ####[facility] [address] [place], [address] Urine Cultureon 06-01-2025 URC Normal [facility] [place] Comment on above: Performed By: #### M 100.2200, L400.0001 ####[facility] [place] [address] [place], [address] Urinalysis, Completeon 05-30 BACTERIA 1+ /hpf Normal None Seen [facility] [place] Comment on above: Order Comment: BLADD ER TAP Performed By: #### M 100.2200, L400.0001 ####[facility] [address] [place], [address] EPI,SQUAMOUS 0-5 SEEN Normal 5-10 [facility] [place] Comment on above: Order Comment: BLADD ER TAP Performed By: #### M 100.2200, L400.0001 ####[facility] [address] [place], [address] Mucus Ql (Urine sed) 0 SEEN Normal [facility] Comment on above: Order Comment: BLADD ER TAP Performed By: #### M 100.2200, L400.0001 ####[facility] [address] [place], [address] RBC 0 SEEN Normal 0-5 [facility] [place] Comment on above: Order Comment: BLADD ER TAP Performed By: #### M 100.2200, L400.0001 ####[facility] [place] [address] [place], [address] WBC 0 SEEN Normal 0-5 [facility] [place] Comment on above: Order Comment: BLADD ER TAP Performed By: #### M 100.2200, L400.0001 ####[facility] [place] [address] [place], [address] Venous Duplex US, Unilateral on 05-29-2025 Venous Duplex US, Unilateral Normal [facility] Absolute lymphocyte countOrd ered By: West Meyers on 05-28-2025 Lymphocytes Auto (Unsp spec) [#/Vol] 0.59 10*3/uL Low 0.83-4.51 [facility] Anion gap in Serum or Plasma Ordered By: West Luigi on 05-28-2025 Anion gap [Moles/Vol] 8 mmol/L 5-15 [facility] Automated lymphocyte count a s percentage of total leukocytesOrdered By: West Ledbetterok on 05-28-2025 Lymphocytes/100 WBC Auto (Unsp spec) 18.8 % Low 19-41 [facility] BUN/creatinine ratioOrdered By: West Ledbetterok on 05-28-2025 Urea nitrogen/Creatinine [Mass ratio] 25.0 mg/mg High 05-22 [facility] Basic Metabolic Profile (BMP )on 05-28-2025 BUN/CRE 25.0 RATIO High 05-22 [facility] [place] Comment on above: Performed By: #### L 100.0100, L500.2500 ####[facility] [address] [place], [address] Calcium [Mass/Vol] 8.4 mg/dL Normal 7.6-11.0 [facility] Comment on above: Performed By: #### L 100.0100, L500.2500 ####[facility] [address] [place], [address] Chloride [Moles/Vol] 103 mmol/L Normal 98-108 [facility] Comment on above: Performed By: #### L 100.0100, L500.2500 ####[facility] [address] [place], [address] CO2 [Moles/Vol] 23.5 mmol/L Normal 21.0-32.0 [facility] [place] Comment on above: Performed By: #### L 100.0100, L500.2500 ####[facility] [address] [place], [address] Creatinine [Mass/Vol] 1.26 mg/dL High 0.70-1.20 [facility] Comment on above: Performed By: #### L 100.0100, L500.2500 ####[facility] [address] [place], [address] ECRCL 33.71 ml/min Low 50-250 [facility] [place] Comment on above: Performed By: #### L 100.0100, L500.2500 ####[facility] [place] [address] [place], [address] GAP 8 Normal 5-15 [facility] Comment on above: Performed By: #### L 100.0100, L500.2500 ####[facility] [address] [place], [address] GFR/1.73 sq M.predicted among non-blacks MDRD (S/P/Bld) [Vol rate/Area] 41 mL/min/{1.73_m2} Low >60 [facility] [place] Comment on above: Result Comment: mL/m in/1.73m2 CKD-EPI Creatinine Equation (2020) Performed By: #### L 100.0100, L500.2500 ####[facility] [place] [address] [place], [address] Glucose [Mass/Vol] 82 mg/dL Normal 70-99 [facility] Comment on above: Performed By: #### L 100.0100, L500.2500 ####[facility] [address] [place], [address] Potassium [Moles/Vol] 4.2 mmol/L Normal 3.3-5.1 [facility] Comment on above: Performed By: #### L 100.0100, L500.2500 ####[facility] [place] [address] [place], [address] Sodium [Moles/Vol] 135 mmol/L Normal 133-145 [facility] Comment on above: Performed By: #### L 100.0100, L500.2500 ####[facility] [address] [place], [address] Urea nitrogen [Mass/Vol] 32 mg/dL High 4-19 [facility] [place] Comment on above: Performed By: #### L 100.0100, L500.2500 ####[facility] [place] [address] [place], [address] Basophil percentageOrdered B y: West Meyers on 05-28-2025 Basophils/100 WBC (Bld) 1.9 % High 0-1 [facility] Blood manual differential co mment interpretation (narrative result)Ordered By: West Meyers on 05-28-2025 Manual differential comment Tomi (Bld) [Interp] SCANNED [facility] Blood polychromasia detectio n by light microscopyOrdered By: West Meyers on 05-28-2025 Polychromasia LM Ql (Bld) 1+ [facility] CBC W/Diff, Automatedon 05-04 ACANTHOCYTE RARE Normal [facility] [place] Comment on above: Performed By: #### L 100.0100, L500.2500 ####[facility] [address] [place], [address] Anisocytosis Ql (Bld) 2+ Normal [facility] Comment on above: Performed By: #### L 100.0100, L500.2500 ####[facility] [address] [place], [address] CRENATED RBC 1+ Normal [facility] [place] Comment on above: Performed By: #### L 100.0100, L500.2500 ####[facility] [place] [address] [place], [address] OVALOCYTE 1+ Normal [facility] [place] Comment on above: Performed By: #### L 100.0100, L500.2500 ####[facility] [address] [place], [address] PLT EST SLT DEC Normal ADEQ [facility] Comment on above: Performed By: #### L 100.0100, L500.2500 ####[facility] [address] [place], [address] POLYCHROMASIA 1+ Normal [facility] [place] Comment on above: Performed By: #### L 100.0100, L500.2500 ####[facility] [address] [place], [address] SMEAR COMMENT SCANNED Normal [facility] [place] Comment on above: Performed By: #### L 100.0100, L500.2500 ####[facility] [address] [place], [address] Carbon dioxide, total [Moles /volume] in Central venous bloodOrdered By: West Meyers on 05-28-2025 CO2 [Moles/Vol] 23.5 mmol/L 21.0-32.0 [facility] [place] Chloride assayOrdered By: Aly Meyers on 05-28-2025 Chloride [Moles/Vol] 103 mmol/L 98-108 [facility] Crenated erythrocyte detecti on by light microscopyOrdered By: West Meyers on 05-28-2025 Plevna cells LM Ql (Bld) 1+ [facility] Eosinophil percentageOrdered By: West Meyers on 05-28-2025 Eosinophils/100 WBC (Bld) 4.5 % 0-5 [facility] [place] Erythrocyte distribution wid th ratioOrdered By: West Meyers on 05-28-2025 Erythrocyte distribution width (RBC) [Ratio] 23.1 % High 11.6-14.6 [facility] [place] Erythrocyte distribution wid th standard deviationOrdered By: West Meyers on 05-28-2025 Erythrocyte distribution width (RBC) [Ratio] 73.0 fl High 35.1-43.9 [facility] [place] Glomerular filtration rate ( GFR) estimation/1.73 sq m using serum, plasma, or whole bOrdered By: West Meyers on 05-28-2025 GFR/1.73 sq M.predicted among non-blacks MDRD (S/P/Bld) [Vol rate/Area] 41 mL/min/{1.73_m2} Low >60 [facility] [place] Hematocrit Auto (Bld) [Volum e fraction]Ordered By: West Meyers on 05-28-2025 Hematocrit (Bld) [Volume fraction] 37.0 % 37-47 [facility] [place] Hemoglobin measurementOrdere d By: West Meyers on 05-28-2025 Hemoglobin (Bld) [Mass/Vol] 12.0 g/dL 12.0-15.0 [facility] [place] Immature granulocytes/100 WB C Auto (Bld)Ordered By: West Meyers on 05-28-2025 Immature granulocytes/100 WBC (Bld) 0.300 % 0.0-0.9 [facility] [place] MCV (mean corpuscular volume ) determinationOrdered By: West Meyers on 05-28-2025 MCV (RBC) [Entitic vol] 90.5 fL 81-99 [facility] Mean corpuscular hemoglobin (MCH) determinationOrdered By: West Meyers on 05-28-2025 MCH (RBC) [Entitic mass] 29.3 pg 27.0-32.0 [facility] [place] Monocyte percentageOrdered B y: West Meyers on 05-28-2025 Monocytes/100 WBC (Bld) 16.9 % High 0-10 [facility] Neutrophil percentageOrdered By: West Meyers on 05-28-2025 Neutrophils/100 WBC (Bld) 57.6 % 47-70 [facility] No Panel InformationOrdered By: West Meyers on 05-28-2025 2+ [facility] Ovalocyte detectionOrdered B y: West Meyers on 05-28-2025 Ovalocytes LM Ql (Bld) 1+ [facility] Platelet countOrdered By: Aly Meyers on 05-28-2025 Platelets (Bld) [#/Vol] 145 10*3/uL Low 150-450 [facility] Platelet estimateOrdered By: West Meyers on 05-28-2025 Platelets LM Ql (Bld) SLT DEC ADEQ [facility] Potassium measurement (mass/ volume)Ordered By: West Meyers on 05-28-2025 Potassium (Unsp spec) [Mass/Vol] 4.2 mmol/L 3.3-5.1 [facility] [place] RBC Auto (Bld) [#/Vol]Ordere d By: West Meyers on 05-28-2025 RBC (Bld) [#/Vol] 4.09 10*6/uL Low 4.2-5.4 [facility] Serum creatinine measurement (mass/volume)Ordered By: West Meyers on 05-28-2025 Creatinine [Mass/Vol] 1.26 mg/dL High 0.70-1.20 [facility] Serum glucose measurement (m ass/volume)Ordered By: West Meyers on 05-28-2025 Glucose [Mass/Vol] 82 mg/dL 70-99 [facility] Serum or plasma calcium caleb urement (mass/volume)Ordered By: West Meyers on 05-28-2025 Calcium [Mass/Vol] 8.4 mg/dL 7.6-11.0 [facility] Serum or plasma urea nitroge n measurement (mass/volume)Ordered By: West Meyers on 05-28-2025 Urea nitrogen [Mass/Vol] 32 mg/dL High 4-19 [facility] [place] Sodium levelOrdered By: West Meyers on 05-28-2025 Sodium [Moles/Vol] 135 mmol/L 133-145 [facility] White blood cell (WBC) count Ordered By: West Meyers on 05-28-2025 WBC (Bld) [#/Vol] 3.1 10*3/uL Low 4.4-11.0 [facility] Basic Metabolic Profile (BMP )on 05-27-2025 BUN/CRE 24.5 RATIO High 10-20 [facility] Comment on above: Performed By: #### L 100.0100, L500.2500 ####[facility] [address] [place], [place], [address] Calcium [Mass/Vol] 8.4 mg/dL Normal 7.6-11.0 [facility] Comment on above: Performed By: #### L 100.0100, L500.2500 ####[facility] [address] [place], [address] Chloride [Moles/Vol] 103 mmol/L Normal 98-108 [facility] Comment on above: Performed By: #### L 100.0100, L500.2500 ####[facility] [address] [place], [address] CO2 [Moles/Vol] 23.3 mmol/L Normal 21.0-32.0 [facility] [place] Comment on above: Performed By: #### L 100.0100, L500.2500 ####[facility] [address] [place], [address] Creatinine [Mass/Vol] 1.33 mg/dL High 0.70-1.20 [facility] Comment on above: Performed By: #### L 100.0100, L500.2500 ####[facility] [address] [place], [address] ECRCL 31.93 ml/min Low 50-250 [facility] Comment on above: Performed By: #### L 100.0100, L500.2500 ####[facility] [address] [place], [address] GAP 10 Normal 5-15 [facility] [place] Comment on above: Performed By: #### L 100.0100, L500.2500 ####[facility] [address] [place], [address] GFR/1.73 sq M.predicted among non-blacks MDRD (S/P/Bld) [Vol rate/Area] 38 mL/min/{1.73_m2} Low >60 [facility] Comment on above: Result Comment: mL/m in/1.73m2 CKD-EPI Creatinine Equation (2020) Performed By: #### L 100.0100, L500.2500 ####[facility] [address] [place], [address] Glucose [Mass/Vol] 79 mg/dL Normal 70-99 [facility] Comment on above: Performed By: #### L 100.0100, L500.2500 ####[facility] [address] [place], [address] Potassium [Moles/Vol] 4.3 mmol/L Normal 3.3-5.1 [facility] Comment on above: Performed By: #### L 100.0100, L500.2500 ####[facility] [address] [place], [address] Sodium [Moles/Vol] 136 mmol/L Normal 133-145 [facility] Comment on above: Performed By: #### L 100.0100, L500.2500 ####[facility] [address] [place], [address] Urea nitrogen [Mass/Vol] 33 mg/dL High 4-19 [facility] Comment on above: Performed By: #### L 100.0100, L500.2500 ####[facility] [address] [place], [address] Blood schistocyte detection by light microscopyOrdered By: West Meyers on 05-27-2025 Schistocytes LM Ql (Bld) RARE [facility] CBC W/Diff, Automatedon 05-04 CBC W Auto Differential panel (Bld) Normal [facility] Comment on above: Performed By: #### L 100.0100, L500.2500 ####[facility] [address] [place], [address] Crenated erythrocyte detecti on by light microscopyOrdered By: West Meyers on 05-27-2025 Mari cells LM Ql (Bld) 1+ [facility] Platelet morphologyOrdered B y: West Meyers on 05-27-2025 Platelet morphology finding Nom (Bld) LARGE [facility] Teardrop cell detectionOrder ed By: West Meyers on 05-27-2025 Dacrocytes LM Ql (Bld) RARE [facility] Basic Metabolic Profile (BMP )on 05-26-2025 BUN/CRE 24.9 RATIO High 10-20 [facility] Comment on above: Performed By: #### L 500.2500, L100.0100 ####[facility] [address] [place], [address] Calcium [Mass/Vol] 8.5 mg/dL Normal 7.6-11.0 [facility] Comment on above: Performed By: #### L 500.2500, L100.0100 ####[facility] [address] [place], [address] Chloride [Moles/Vol] 102 mmol/L Normal 98-108 [facility] Comment on above: Performed By: #### L 500.2500, L100.0100 ####[facility] [address] [place], [address] CO2 [Moles/Vol] 25.1 mmol/L Normal 21.0-32.0 [facility] Comment on above: Performed By: #### L 500.2500, L100.0100 ####[facility] [address] [place], [address] Creatinine [Mass/Vol] 1.33 mg/dL High 0.70-1.20 [facility] Comment on above: Performed By: #### L 500.2500, L100.0100 ####[facility] [address] [place], [address] ECRCL 31.93 ml/min Low 50-250 [facility] Comment on above: Performed By: #### L 500.2500, L100.0100 ####[facility] [address] [place], [address] GAP 9 Normal 5-15 [facility] Comment on above: Performed By: #### L 500.2500, L100.0100 ####[facility] [address] [place], [address] GFR/1.73 sq M.predicted among non-blacks MDRD (S/P/Bld) [Vol rate/Area] 38 mL/min/{1.73_m2} Low >60 [facility] Comment on above: Result Comment: mL/m in/1.73m2 CKD-EPI Creatinine Equation (2020) Performed By: #### L 500.2500, L100.0100 ####[facility] [address] [place], [address] Glucose [Mass/Vol] 83 mg/dL Normal 70-99 [facility] Comment on above: Performed By: #### L 500.2500, L100.0100 ####[facility] [address] [place], [address] Potassium [Moles/Vol] 4.3 mmol/L Normal 3.3-5.1 [facility] Comment on above: Performed By: #### L 500.2500, L100.0100 ####[facility] [address] [place], [address] Sodium [Moles/Vol] 136 mmol/L Normal 133-145 [facility] Comment on above: Performed By: #### L 500.2500, L100.0100 ####[facility] [address] [place], [address] Urea nitrogen [Mass/Vol] 33 mg/dL High 4-19 [facility] Comment on above: Performed By: #### L 500.2500, L100.0100 ####[facility] [address] [place], [address] CBC W/Diff, Automatedon 10-2 Anisocytosis Ql (Bld) 2+ Normal [facility] Comment on above: Performed By: #### L 500.2500, L100.0100 ####[facility] [address] [place], [address] SMEAR COMMENT SCANNED Normal [facility] Comment on above: Performed By: #### L 500.2500, L100.0100 ####[facility] [address] [place], [address] Basic Metabolic Profile (BMP )on 05-25-2025 BUN/CRE 23.2 RATIO High - [facility] Comment on above: Performed By: #### L 100.0100, L500.2500 ####[facility] [address] [place], [address] Calcium [Mass/Vol] 8.8 mg/dL Normal 7.6-11.0 [facility] Comment on above: Performed By: #### L 100.0100, L500.2500 ####[facility] [address] [place], [address] Chloride [Moles/Vol] 102 mmol/L Normal 98-108 [facility] Comment on above: Performed By: #### L 100.0100, L500.2500 ####[facility] [address] [place], [address] CO2 [Moles/Vol] 26.0 mmol/L Normal 21.0-32.0 [facility] Comment on above: Performed By: #### L 100.0100, L500.2500 ####[facility] [address] [place], [address] Creatinine [Mass/Vol] 1.49 mg/dL High 0.70-1.20 [facility] Comment on above: Performed By: #### L 100.0100, L500.2500 ####[facility] [address] [place], [address] ECRCL 28.50 ml/min Low 50-250 [facility] Comment on above: Performed By: #### L 100.0100, L500.2500 ####[facility] [address] [place], [address] GAP 10 Normal 5-15 [facility] Comment on above: Performed By: #### L 100.0100, L500.2500 ####[facility] [address] [place], [address] GFR/1.73 sq M.predicted among non-blacks MDRD (S/P/Bld) [Vol rate/Area] 34 mL/min/{1.73_m2} Low >60 [facility] Comment on above: Result Comment: mL/m in/1.73m2 CKD-EPI Creatinine Equation (2020) Performed By: #### L 100.0100, L500.2500 ####[facility] [address] [place], [address] Glucose [Mass/Vol] 83 mg/dL Normal 70-99 [facility] Comment on above: Performed By: #### L 100.0100, L500.2500 ####[facility] [address] [place], [address] Potassium [Moles/Vol] 4.4 mmol/L Normal 3.3-5.1 [facility] Comment on above: Performed By: #### L 100.0100, L500.2500 ####[facility] [address] [place], [address] Sodium [Moles/Vol] 138 mmol/L Normal 133-145 [facility] Comment on above: Performed By: #### L 100.0100, L500.2500 ####[facility] [address] [place], [address] Urea nitrogen [Mass/Vol] 35 mg/dL High 4-19 [facility] Comment on above: Performed By: #### L 100.0100, L500.2500 ####[facility] [address] [place], [address] CBC W/Diff, Automatedon 05-04 Anisocytosis Ql (Bld) 1+ Normal [facility] Comment on above: Performed By: #### L 100.0100, L500.2500 ####[facility] [address] [place], [place], [address] CNPNon 05-22-2025 CNPN Telephone ([facility]) ANA MARIA AVALOS ([id number]) 1935 F Date Time Provider Department 05/22/25 DORIS REAL [facility] During your visit today, we recorded the following information about you: Olivia Tucker 05/22/2025 12:42 PM Signed Called patient to change appointment on 05-24-25 from in person to video, I had to leave a vm (Dr Real) Allergies As of Date: 05/22/2025 Noted Allergy Reaction CODEINE 06/20/2005 4 - Hives DARVOCET A500 (PROPOXYPHENE N-CARLINE*06/20/2005 5 - Intolerance VENOM-HONEY BEE 01/31/2025 16 - Unknown Date Reviewed: 02/08/2025 Reviewed by: Rosanna Min, LISBTE - Fully Assessed Prescriptions as of 05/22/2025 - dapagliflozin propanediol (FARXIGA) 10 mg tablet [...] 400 mcg by mouth once daily. - Rgdoe-5-CKV-EPA-Fish Oil (FISH OIL) 1,000 mg (120 mg-180 [...] once daily. 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, [address] COVID-19 virus antigen assay Ordered By: [place] on 05-22-2025 SARS-CoV-2 (COVID-19) Ag IA.rapid Ql (Resp) [facility] Basic Metabolic Profile (BMP )on 05-18-2025 BUN/CRE 25.1 RATIO High 05-22 [facility] Comment on above: Performed By: #### L 100.0100, L500.2500 ####[facility] [address] [place], [address] Calcium [Mass/Vol] 9.1 mg/dL Normal 7.6-11.0 [facility] Comment on above: Performed By: #### L 100.0100, L500.2500 ####[facility] [address] [place], [address] Chloride [Moles/Vol] 94 mmol/L Low 98-108 [facility] Comment on above: Performed By: #### L 100.0100, L500.2500 ####[facility] [address] [place], [address] CO2 [Moles/Vol] 25.7 mmol/L Normal 21.0-32.0 [facility] Comment on above: Performed By: #### L 100.0100, L500.2500 ####[facility] [address] [place], [address] Creatinine [Mass/Vol] 1.40 mg/dL High 0.70-1.20 [facility] Comment on above: Performed By: #### L 100.0100, L500.2500 ####[facility] [address] [place], [address] ECRCL 30.34 ml/min Low 50-250 [facility] Comment on above: Performed By: #### L 100.0100, L500.2500 ####[facility] [address] [place], [address] GAP 11 Normal 5-15 [facility] Comment on above: Performed By: #### L 100.0100, L500.2500 ####[facility] [address] [place], [address] GFR/1.73 sq M.predicted among non-blacks MDRD (S/P/Bld) [Vol rate/Area] 36 mL/min/{1.73_m2} Low >60 [facility] Comment on above: Result Comment: mL/m in/1.73m2 CKD-EPI Creatinine Equation (2020) Performed By: #### L 100.0100, L500.2500 ####[facility] [address] [place], [address] Glucose [Mass/Vol] 97 mg/dL Normal 70-99 [facility] Comment on above: Performed By: #### L 100.0100, L500.2500 ####[facility] [address] [place], [address] Potassium [Moles/Vol] 4.7 mmol/L Normal 3.3-5.1 [facility] Comment on above: Result Comment: Hemo lysis present, Results??could be affected.?? Performed By: #### L 100.0100, L500.2500 ####[facility] [address] [place], [address] Sodium [Moles/Vol] 131 mmol/L Low 133-145 [facility] Comment on above: Performed By: #### L 100.0100, L500.2500 ####[facility] [address] [place], [address] Urea nitrogen [Mass/Vol] 35 mg/dL High 4-19 [facility] Comment on above: Performed By: #### L 100.0100, L500.2500 ####[facility] [address] [place], [address] CBC W/Diff, Automatedon 05-03 Anisocytosis Ql (Bld) 1+ Normal [facility] Comment on above: Performed By: #### L 100.0100, L500.2500 ####[facility] [address] [place], [address] T4 Free Directon 05-17-2025 T4 FREE DIRECT 0.70 ng/dL Low 0.76-1.46 [facility] Comment on above: Performed By: #### L 506.0400 ####[facility] [address] [place], [address] T4 freeOrdered By: Fabiana ma on 05-17-2025 Free T4 [Mass/Vol] 0.70 ng/dL Low 0.76-1.46 [facility] Electrocardiogram reportOrde red By: Michael Salvador on 05-16-2025 EKG study [facility] Other Phone: Absolute lymphocyte countOrd ered By: Fabiana Anderson on 05-15-2025 Lymphocytes Auto (Unsp spec) [#/Vol] 0.64 10*3/uL Low 0.83-4.51 [facility] Anion gap in Serum or Plasma Ordered By: Fabiana Anderson on 05-15-2025 Anion gap [Moles/Vol] 12 mmol/L 12-15 [facility] Automated lymphocyte count a s percentage of total leukocytesOrdered By: Fabiana Anderson on 05-15-2025 Lymphocytes/100 WBC Auto (Unsp spec) 15.3 % Low 19-41 [facility] BUN/creatinine ratioOrdered By: Fabiana Anderson on 05-15-2025 Urea nitrogen/Creatinine [Mass ratio] 25.1 mg/mg High 10- [facility] Basophil percentageOrdered B y: Fabiana Anderson on 05-15-2025 Basophils/100 WBC (Bld) 0.5 % 0-1 [facility] Bilirubin, totalOrdered By: Fabiana Anderson on 05-15-2025 Bilirubin [Mass/Vol] 2.12 mg/dL High 0.00-1.30 [facility] Blood manual differential co mment interpretation (narrative result)Ordered By: Fabiana Anderson on 05-15-2025 Manual differential comment Tomi (Bld) [Interp] SCANNED [facility] CBC W/Diff, Automatedon 05-03 Anisocytosis Ql (Bld) 2+ Normal [facility] Comment on above: Performed By: #### L 100.0100, L501.2300, L500.4050, L501.5200 ####[facility] [address] [place], [place], [id number] SMEAR COMMENT SCANNED Normal [facility] Comment on above: Performed By: #### L 100.0100, L501.2300, L500.4050, L501.5200 ####[facility] [address] [place], [place], [id number] CNPNissa 05-15-2025 [facility] Telephone ([facility]) ANA MARIA AVALOS ([id number]) 1935 F Date Time Provider Department 05/15/[address] [facility] During your visit today, we recorded the following information about you: Jatinder Chavez RN 05/15/2025 8:30 AM Signed Received message from Dr. Real for scheduling. Will route to CV Triage. Can we please schedule this patient for a clinic appointment to discuss an incidental anterior communicating aneurysm? Needs images from [facility] prior to the visit. Thanks! Yuridia Curiel 05/15/2025 10:04 PM Addendum OSH imaging/records received from [facility]: May 15, 2025 -[facility] Medical Records scanned Schuyler Newman 05/15/2025 10:58 AM Signed OSH imaging/records received from [facility]: May 15, 2025 -Records available in Care Everywhere [employer] Fax received with Medical Records from [facility]. Records Scanned into patient's chart AND available under Scanned Docs. Yuridia Curiel 05/23/2025 4:14 PM Signed Patient in a rehab facility--[facility] Deleon assisted with rescheduling patient to June [address] Real Phone Encounter. Allergies As of Date: 05/15/2025 Noted Allergy Reaction CODEINE 06/20/2005 4 - Hives DARVOCET A500 (PROPOXYPHENE N-CARLINE*06/20/2005 5 - Intolerance VENOM-HONEY BEE 01/31/2025 16 - Unknown Date Reviewed: 02/08/2025 Reviewed by: Rosanna Min RN - Fully Assessed Reason for Visit: Future Appointment [256] Cmt: New Patient [place] Addie Prescriptions as of 05/23/2025 - dapagliflozin propanediol (FARXIGA) 10 mg tablet [...] 400 mcg by mouth once daily. - Jqrwq-5-JRZ-EPA-Fish Oil (FISH OIL) 1,000 mg (120 mg-180 [...] Status:Closed by JATINDER CHAVEZ on 05/15/25 Normal [facility] Carbon dioxide, total [Moles /volume] in Central venous bloodOrdered By: Fabiana Anderson on 05-15-2025 CO2 [Moles/Vol] 24.7 mmol/L 21.0-32.0 [facility] Chloride assayOrdered By: Raymond Anderson on 05-15-2025 Chloride [Moles/Vol] 89 mmol/L Low 98-108 [facility] Comprehensive Metabolic Prof ilon 05-15-2025 Albumin [Mass/Vol] 3.3 g/dL Low 3.4-4.8 [facility] Comment on above: Performed By: #### L 100.0100, L501.2300, L500.4050, L501.5200 ####[facility] [address] [place], [address] Albumin/Globulin [Mass ratio] 1.4 {ratio} Normal 0.9-2.4 [facility] Comment on above: Performed By: #### L 100.0100, L501.2300, L500.4050, L501.5200 ####[facility] [address] [place], [address] ALK PHOS 128 U/L High 35-104 [facility] Comment on above: Performed By: #### L 100.0100, L501.2300, L500.4050, L501.5200 ####[facility] [address] [place], [address] ALT [Catalytic activity/Vol] 26 U/L Normal <=34 [facility] Comment on above: Performed By: #### L 100.0100, L501.2300, L500.4050, L501.5200 ####[facility] [address] [place], [address] AST [Catalytic activity/Vol] 52 U/L High <=31 [facility] Comment on above: Performed By: #### L 100.0100, L501.2300, L500.4050, L501.5200 ####[facility] [address] [place], [address] Bilirubin [Mass/Vol] 2.12 mg/dL High 0.00-1.30 [facility] Comment on above: Performed By: #### L 100.0100, L501.2300, L500.4050, L501.5200 ####[facility] [address] [place], [address] BUN/CRE 25.1 RATIO High 10-20 [facility] Comment on above: Performed By: #### L 100.0100, L501.2300, L500.4050, L501.5200 ####[facility] [address] [place], [address] Calcium [Mass/Vol] 8.6 mg/dL Normal 7.6-11.0 [facility] Comment on above: Performed By: #### L 100.0100, L501.2300, L500.4050, L501.5200 ####[facility] [address] [place], [address] Chloride [Moles/Vol] 89 mmol/L Low 98-108 [facility] Comment on above: Performed By: #### L 100.0100, L501.2300, L500.4050, L501.5200 ####[facility] [address] [place], [address] CO2 [Moles/Vol] 24.7 mmol/L Normal 21.0-32.0 [facility] Comment on above: Performed By: #### L 100.0100, L501.2300, L500.4050, L501.5200 ####[facility] [address] [place], [address] Creatinine [Mass/Vol] 1.41 mg/dL High 0.70-1.20 [facility] Comment on above: Performed By: #### L 100.0100, L501.2300, L500.4050, L501.5200 ####[facility] [address] [place], [address] ECRCL 27.82 ml/min Low 50-250 [facility] Comment on above: Performed By: #### L 100.0100, L501.2300, L500.4050, L501.5200 ####[facility] [address] [place], [address] GAP 12 Normal 5-15 [facility] Comment on above: Performed By: #### L 100.0100, L501.2300, L500.4050, L501.5200 ####[facility] [address] [place], [address] GFR/1.73 sq M.predicted among non-blacks MDRD (S/P/Bld) [Vol rate/Area] 36 mL/min/{1.73_m2} Low >60 [facility] Comment on above: Result Comment: mL/m in/1.73m2 CKD-EPI Creatinine Equation (2020) Performed By: #### L 100.0100, L501.2300, L500.4050, L501.5200 ####[facility] [address] [place], [address] Globulin (S) [Mass/Vol] 2.3 g/dL Normal 2.2-4.2 [facility] Comment on above: Performed By: #### L 100.0100, L501.2300, L500.4050, L501.5200 ####[facility] [address] [place], [address] Glucose [Mass/Vol] 82 mg/dL Normal 70-99 [facility] Comment on above: Performed By: #### L 100.0100, L501.2300, L500.4050, L501.5200 ####[facility] [address] [place], [address] Potassium [Moles/Vol] 3.5 mmol/L Normal 3.3-5.1 [facility] Comment on above: Performed By: #### L 100.0100, L501.2300, L500.4050, L501.5200 ####[facility] [address] [place], [address] Sodium [Moles/Vol] 126 mmol/L Low 133-145 [facility] Comment on above: Performed By: #### L 100.0100, L501.2300, L500.4050, L501.5200 ####[facility] [address] [place], [address] T PROT 5.6 g/dL Low 5.9-8.4 [facility] Comment on above: Performed By: #### L 100.0100, L501.2300, L500.4050, L501.5200 ####[facility] [address] [place], [address] Urea nitrogen [Mass/Vol] 35 mg/dL High 4-19 [facility] Comment on above: Performed By: #### L 100.0100, L501.2300, L500.4050, L501.5200 ####[facility] [address] [place], [address] Eosinophil percentageOrdered By: Fabiana Anderson on 05-15-2025 Eosinophils/100 WBC (Bld) 0.0 % 0-5 [facility] Erythrocyte distribution wid th ratioOrdered By: Fabiana Anderson on 05-15-2025 Erythrocyte distribution width (RBC) [Ratio] 20.3 % High 11.6-14.6 [facility] Erythrocyte distribution wid th standard deviationOrdered By: Fabiana Anderson on 05-15-2025 Erythrocyte distribution width (RBC) [Ratio] 59.0 fl High 35.1-43.9 [facility] Glomerular filtration rate ( GFR) estimation/1.73 sq m using serum, plasma, or whole bOrdered By: Fabiana Anderson on 05-15-2025 GFR/1.73 sq M.predicted among non-blacks MDRD (S/P/Bld) [Vol rate/Area] 36 mL/min/{1.73_m2} Low >60 [facility] Hematocrit Auto (Bld) [Volum e fraction]Ordered By: Fabiana Anderson on 05-15-2025 Hematocrit (Bld) [Volume fraction] 38.9 % 37-47 [facility] Hemoglobin measurementOrdere d By: Fabiana Anderson on 05-15-2025 Hemoglobin (Bld) [Mass/Vol] 13.2 g/dL 12.0-15.0 [facility] Immature granulocytes/100 WB C Auto (Bld)Ordered By: Fabiana Anderson on 05-15-2025 Immature granulocytes/100 WBC (Bld) 0.700 % 0.0-0.9 [facility] MCV (mean corpuscular volume ) determinationOrdered By: Fabiana Anderson on 05-15-2025 MCV (RBC) [Entitic vol] 85.7 fL 81-99 [facility] Magnesiumon 05-15-2025 Magnesium [Mass/Vol] 2.5 mg/dL High 1.5-2.2 [facility] Comment on above: Performed By: #### L 100.0100, L501.2300, L500.4050, L501.5200 ####[facility] [address] [place], [place], [id number] Magnesium measurement (mass/ volume)Ordered By: Fabiana Anderson on 05-15-2025 Magnesium (Unsp spec) [Mass/Vol] 2.5 mg/dL High 1.5-2.2 [facility] Mean corpuscular hemoglobin (MCH) determinationOrdered By: Fabiana Anderson on 05-15-2025 MCH (RBC) [Entitic mass] 29.1 pg 27.0-32.0 [facility] Monocyte percentageOrdered B y: Fabiana Anderson on 05-15-2025 Monocytes/100 WBC (Bld) 18.1 % High 0-10 [facility] Neutrophil percentageOrdered By: Fabiana Anderson on 05-15-2025 Neutrophils/100 WBC (Bld) 65.4 % 47-70 [facility] No Panel InformationOrdered By: Fabiana Anderson on 05-15-2025 2+ [facility] 52 U/L High <32 [facility] Phosphoruson 05-15-2025 Phosphate [Mass/Vol] 3.8 mg/dL Normal 2.7-4.5 [facility] Comment on above: Performed By: #### L 100.0100, L501.2300, L500.4050, L501.5200 ####[facility] [address] [place], [place], [id number] Platelet countOrdered By: Raymond Anderson on 05-15-2025 Platelets (Bld) [#/Vol] 146 10*3/uL Low 150-450 [facility] Potassium measurement (mass/ volume)Ordered By: Fabiana Anderson on 05-15-2025 Potassium (Unsp spec) [Mass/Vol] 3.5 mmol/L 3.3-5.1 [facility] RBC Auto (Bld) [#/Vol]Ordere d By: Fabiana Anderson on 05-15-2025 RBC (Bld) [#/Vol] 4.54 10*6/uL 4.2-5.4 [facility] Serum creatinine measurement (mass/volume)Ordered By: Fabiana Anderson on 05-15-2025 Creatinine [Mass/Vol] 1.41 mg/dL High 0.70-1.20 [facility] Serum globulin measurementOr dered By: Fabiana Anderson on 05-15-2025 Globulin (S) [Mass/Vol] 2.3 g/dL 2.2-4.2 [facility] Serum glucose measurement (m ass/volume)Ordered By: Fabiana Anderson on 05-15-2025 Glucose [Mass/Vol] 82 mg/dL 70-99 [facility] Serum or plasma alanine henderson otransferase (ALT) measurementOrdered By: Fabiana Anderson on 05-15-2025 ALT [Catalytic activity/Vol] 26 U/L <35 [facility] Serum or plasma albumin caleb urement (mass/volume)Ordered By: Fabiana Anderson on 05-15-2025 Albumin [Mass/Vol] 3.3 g/dL Low 3.4-4.8 [facility] Serum or plasma albumin/glob ulin mass ratioOrdered By: Fabiana Anderson on 05-15-2025 Albumin/Globulin [Mass ratio] 1.4 {ratio} 0.9-2.4 [facility] Serum or plasma alkaline lexus sphatase measurementOrdered By: Fabiana Anderson on 05-15-2025 ALP [Catalytic activity/Vol] 128 U/L High 35-104 [facility] Serum or plasma calcium caleb urement (mass/volume)Ordered By: Fabiana Anderson on 05-15-2025 Calcium [Mass/Vol] 8.6 mg/dL 7.6-11.0 [facility] Serum or plasma urea nitroge n measurement (mass/volume)Ordered By: Fabiana Anderson on 05-15-2025 Urea nitrogen [Mass/Vol] 35 mg/dL High 4-19 [facility] Sodium levelOrdered By: Amanda Anderson on 05-15-2025 Sodium [Moles/Vol] 126 mmol/L Low 133-145 [facility] Total proteinOrdered By: Denise Anderson on 05-15-2025 Protein [Mass/Vol] 5.6 g/dL Low 5.9-8.4 [facility] White blood cell (WBC) count Ordered By: Fabiana Anderson on 05-15-2025 WBC (Bld) [#/Vol] 4.2 10*3/uL Low 4.4-11.0 [facility] 12 Lead EKGon 05-14-2025 12 Lead EKG Normal [facility] Ankle min 3 Viewson 05-14-20 25 Ankle min 3 Views Normal [facility] Basic Metabolic Profile (BMP )on 05-14-2025 BUN Normal 4-19 [facility] Comment on above: Result Comment: Canc elled via OM: Order cancelled - Patient discharged Performed By: #### L 500.2500 ####[facility] [address] [place], [address] BUN/CRE Normal - [facility] Comment on above: Result Comment: Canc elled via OM: Order cancelled - Patient discharged Performed By: #### L 500.2500 ####[facility] [address] [place], [address] Calcium Normal 7.6-11.0 [facility] Comment on above: Result Comment: Canc elled via OM: Order cancelled - Patient discharged Performed By: #### L 500.2500 ####[facility] [address] [place], [address] CL Normal 98-108 [facility] Comment on above: Result Comment: Canc elled via OM: Order cancelled - Patient discharged Performed By: #### L 500.2500 ####[facility] [address] [place], [address] CO2 Normal 21.0-32.0 [facility] Comment on above: Result Comment: Canc elled via OM: Order cancelled - Patient discharged Performed By: #### L 500.2500 ####[facility] [address] [place], [address] CREAT,SERUM Normal 0.70-1.20 [facility] Comment on above: Result Comment: Canc elled via OM: Order cancelled - Patient discharged Performed By: #### L 500.2500 ####[facility] [address] [place], [address] eGFR Normal >60 [facility] Comment on above: Result Comment: Canc elled via OM: Order cancelled - Patient discharged Performed By: #### L 500.2500 ####[facility] [address] [place], [address] GAP Normal 5-15 [facility] Comment on above: Result Comment: Canc elled via OM: Order cancelled - Patient discharged Performed By: #### L 500.2500 ####[facility] [address] [place], [address] GLU Normal 70-99 [facility] Comment on above: Result Comment: Canc elled via OM: Order cancelled - Patient discharged Performed By: #### L 500.2500 ####[facility] [address] [place], [address] Potassium Normal 3.3-5.1 [facility] Comment on above: Result Comment: Canc elled via OM: Order cancelled - Patient discharged Performed By: #### L 500.2500 ####[facility] [address] [place], [address] Basic Metabolic Profile (BMP) Normal 133-145 [facility] Comment on above: Result Comment: Canc elled via OM: Order cancelled - Patient discharged Performed By: #### L 500.2500 ####[facility] [address] [place], [address] BUN/CRE 21.7 RATIO High 10-20 [facility] Comment on above: Performed By: #### L 500.2500, L100.0100 ####[facility] [address] [place], [address] Calcium [Mass/Vol] 9.0 mg/dL Normal 7.6-11.0 [facility] Comment on above: Performed By: #### L 500.2500, L100.0100 ####[facility] [address] [place], [address] Chloride [Moles/Vol] 86 mmol/L Low 98-108 [facility] Comment on above: Performed By: #### L 500.2500, L100.0100 ####[facility] [address] [place], [address] CO2 [Moles/Vol] 23.5 mmol/L Normal 21.0-32.0 [facility] Comment on above: Performed By: #### L 500.2500, L100.0100 ####[facility] [address] [place], [address] Creatinine [Mass/Vol] 1.55 mg/dL High 0.70-1.20 [facility] Comment on above: Performed By: #### L 500.2500, L100.0100 ####[facility] [address] [place], [address] ECRCL 27.48 ml/min Low 50-250 [facility] Comment on above: Performed By: #### L 500.2500, L100.0100 ####[facility] [address] [place], [address] GAP 14 Normal 5-15 [facility] Comment on above: Performed By: #### L 500.2500, L100.0100 ####[facility] [address] [place], [address] GFR/1.73 sq M.predicted among non-blacks MDRD (S/P/Bld) [Vol rate/Area] 32 mL/min/{1.73_m2} Low >60 [facility] Comment on above: Result Comment: mL/m in/1.73m2 CKD-EPI Creatinine Equation (2020) Performed By: #### L 500.2500, L100.0100 ####[facility] [address] [place], [address] Glucose [Mass/Vol] 102 mg/dL High 70-99 [facility] Comment on above: Performed By: #### L 500.2500, L100.0100 ####[facility] [address] [place], [address] Potassium [Moles/Vol] 3.6 mmol/L Normal 3.3-5.1 [facility] Comment on above: Performed By: #### L 500.2500, L100.0100 ####[facility] [address] [place], [address] Sodium [Moles/Vol] 124 mmol/L Low 133-145 [facility] Comment on above: Performed By: #### L 500.2500, L100.0100 ####[facility] [address] [place], [address] Urea nitrogen [Mass/Vol] 34 mg/dL High 4-19 [facility] Comment on above: Performed By: #### L 500.2500, L100.0100 ####[facility] [address] [place], [address] Bilirubin Test strip Ql (U)O rdered By: Razia Red on 05-14-2025 Bilirubin Ql (U) Negative Negative [facility] Bilirubin directOrdered By: Razia Red on 05-14-2025 Bilirubin.direct [Mass/Vol] 1.67 mg/dL High 0.00-0.30 [facility] Brain/Head without Contrasto n 05-14-2025 Brain/Head without Contrast Normal [facility] CBC W/Diff, Automatedon 05-03 Anisocytosis Ql (Bld) 1+ Normal [facility] Comment on above: Performed By: #### L 500.2500, L100.0100 ####[facility] [address] [place], [address] Chest PA and Lateralon 05-14 Chest PA and Lateral Normal [facility] Emergency Department Summary on 05-14-2025 Emergency Department Summary Normal [facility] H AND P Exam - Hospitaliston 05-14-2025 H&P Exam - Hospitalist Normal [facility] Ketones Test strip Ql (U)Ord ered By: Razia Red on 05-14-2025 Ketones Ql (U) Negative Negative [facility] L509.6001on 05-14-2025 CORTISOL 21.70 ug/dL High 6.02-18.40 [facility] Comment on above: Performed By: #### L 501.7300, L501.9520, L509.6001 ####[facility] [address] [place], [address] Lipaseon 05-14-2025 Lipase [Catalytic activity/Vol] 37 U/L Normal 13-75 [facility] Comment on above: Result Comment: Tito domínguez note:LIPASE revised reference range effective 22.New Lipase methodology. Expected to produce lower valuesthan the previous assay method.NEW Reference Range: 13 - 75 U/L Performed By: #### L 501.2450, L500.3400 ####[facility] [address] [place], [address] Liver Profileon 05-14-2025 Albumin [Mass/Vol] 3.5 g/dL Normal 3.4-4.8 [facility] Comment on above: Performed By: #### L 501.2450, L500.3400 ####[facility] [address] [place], [address] ALK PHOS 143 U/L High 35-104 [facility] Comment on above: Performed By: #### L 501.2450, L500.3400 ####[facility] [address] [place], [address] ALT [Catalytic activity/Vol] 29 U/L Normal <=34 [facility] Comment on above: Performed By: #### L 501.2450, L500.3400 ####[facility] [address] [place], [address] AST [Catalytic activity/Vol] 61 U/L High <=31 [facility] Comment on above: Performed By: #### L 501.2450, L500.3400 ####[facility] [address] [place], [address] Bilirubin [Mass/Vol] 2.87 mg/dL High 0.00-1.30 [facility] Comment on above: Performed By: #### L 501.2450, L500.3400 ####[facility] [address] [place], [address] Bilirubin.direct [Mass/Vol] 1.67 mg/dL High 0.00-0.30 [facility] Comment on above: Performed By: #### L 501.2450, L500.3400 ####[facility] [address] [place], [address] Globulin (S) [Mass/Vol] 2.8 g/dL Normal 2.2-4.2 [facility] Comment on above: Performed By: #### L 501.2450, L500.3400 ####[facility] [address] [place], [address] T PROT 6.4 g/dL Normal 5.9-8.4 [facility] Comment on above: Performed By: #### L 501.2450, L500.3400 ####[facility] [address] [place], [address] Mucus LM Ql (Urine sed)Order ed By: Razia Red on 05-14-2025 Mucus Ql (Urine sed) 0 SEEN /hpf [facility] Nitrite Test strip Ql (U)Ord ered By: Razia Red on 05-14-2025 Nitrite Ql (U) Negative Negative [facility] Osmolality urOrdered By: Denise Anderson on 05-14-2025 Osmolality (U) [Osmolality] 302 mOsm/KG >50 [facility] Osmolality, Serumon 05-14-20 25 OSMOLALITY,SER 279 mOsm/KG Low 280-301 [facility] Comment on above: Performed By: #### L 501.7300, L501.9520, L509.6001 ####[facility] [address] [place], [address] Osmolality, Urineon 05-14-20 25 OSMOLALITY,UR 302 mOsm/KG Normal [facility] Comment on above: Result Comment: Norm al Urine Reference Ranges Random: 50 - 1200 mOsm/kg H20 depending on fluid intake Random: >850 mOsm/kg after 12 hour fluid restriction 24 hour: 300 - 900 mOsm/kg H2O Performed By: #### L 501.7400, L501.5500 ####[facility] [address] [place], [place], [id number] Pelvis 1 or 2 Viewson 2024 Pelvis 1 or 2 Views Normal [facility] Protein Test strip Ql (U)Ord ered By: Razia Red on 05-14-2025 Protein Ql (U) 30 mg/dl High Negative [facility] Serum or plasma cortisol jamar surement (mass/volume)Ordered By: Fabiana Anderson on 05-14-2025 Cortisol [Mass/Vol] 21.70 ug/dL High 6.02-18.40 [facility] Serum or plasma uric acid me asurement (mass/volume)Ordered By: Fabiana Anderson on 05-14-2025 Urate [Mass/Vol] 6.2 mg/dL High 2.6-6.0 [facility] Spine Cervical without Contr ason 05-14-2025 Spine Cervical without Contras Normal [facility] Spine Lumbar without Contras ton 05-14-2025 Spine Lumbar without Contrast Normal [facility] Squamous epithelial cells de tection in urine sediment by light microscopyOrdered By: Razia Red on 05-14-2025 Epithelial cells.squamous LM Ql (Urine sed) 10-25 SEEN /hpf 5-10 [facility] T4 Free Directon 05-14-2025 T4 FREE DIRECT 0.30 ng/dL Low 0.76-1.46 [facility] Comment on above: Performed By: #### L 506.0400, L501.1400 ####[facility] [address] [place], [address] TSH DL <= 0.005 mIU/L QnOrde red By: Fabiana Anderson on 05-14-2025 TSH Qn 91.900 uIU/mL High 0.300-4.200 [facility] Thyroid Stim Hormone (TSH)on 05-14-2025 TSH 91.900 uIU/mL High 0.300-4.200 [facility] Comment on above: Performed By: #### L 501.7300, L501.9520, L509.6001 ####[facility] [address] [place], [address] Transitional cells detection in urine sediment by light microscopyOrdered By: Razia Red on 05-14-2025 Transitional cells LM Ql (Urine sed) 0-5 SEEN /hpf 0-5 [facility] Uric Acidon 05-14-2025 URIC 6.2 mg/dL High 2.6-6.0 [facility] Comment on above: Result Comment: The drugs N-Acetylcysteine and Metamizole may falselydepress this assay. Performed By: #### L 506.0400, L501.1400 ####[facility] [address] [place], [address] Urinalysis, Completeon 05-14 BACTERIA RARE Normal None Seen [facility] Comment on above: Order Comment: CLEAN CATCH Performed By: #### L 400.0001 ####[facility] [address] [place], [address] EPI,SQUAMOUS 10-25 SEEN Normal 5-10 [facility] Comment on above: Order Comment: CLEAN CATCH Performed By: #### L 400.0001 ####[facility] [address] [place], [address] EPI,TRANSITION 0-5 SEEN Normal 0-5 [facility] Comment on above: Order Comment: CLEAN CATCH Performed By: #### L 400.0001 ####[facility] [address] [place], [address] WBC 10-25 SEEN Normal 0-5 [facility] Comment on above: Order Comment: CLEAN CATCH Performed By: #### L 400.0001 ####[facility] [address] [place], [address] Mucus Ql (Urine sed) 0 SEEN Normal [facility] Comment on above: Order Comment: CLEAN CATCH Performed By: #### L 400.0001 ####[facility] [address] [place], [address] RBC 0 SEEN Normal 0-5 [facility] Comment on above: Order Comment: CLEAN CATCH Performed By: #### L 400.0001 ####[facility] [address] [place], [address] Urine Sodiumon 05-14-2025 Sodium (U) [Moles/Vol] 35 mmol/L Normal Not Establ. [facility] Comment on above: Performed By: #### L 501.7400, L501.5500 ####[facility] [address] [place], [address] Urine clarityOrdered By: Geena Red on 05-14-2025 Clarity (U) Sl. Cloudy Clear [facility] Urine color determinationOrd ered By: Razia Red on 05-14-2025 Color (U) Yellow Yellow [facility] Urine glucose detectionOrder ed By: Razia Red on 05-14-2025 Glucose Ql (U) 250 mg/dl High Normal [facility] Urine leukocyte esterase det ection by dipstickOrdered By: Razia Red on 05-14-2025 Leukocyte esterase Test strip Ql (U) 500 /ul High Negative [facility] Urine pHOrdered By: Razia sanchez on 05-14-2025 pH (U) 7.0 [pH] 5.0 - 8.0 [facility] Urine sediment bacteria coun t by microscopy (number/high power field)Ordered By: Razia Red on 05-14-2025 Bacteria LM.HPF (Urine sed) [#/Area] RARE /hpf None Seen [facility] Urine sodium measurement (mo les/volume)Ordered By: Fabiana Anderson on 05-14-2025 Sodium (U) [Moles/Vol] 35 mmol/L Not Establ. [facility] Urine specific gravity measu rementOrdered By: Razia Red on 05-14-2025 Specific gravity (U) [Rel density] 1.010 1.002-1.030 [facility] Urine urobilinogen measureme ntOrdered By: Razia Red on 05-14-2025 Urobilinogen Ql (U) 4 mg/dl High Normal [facility] White blood cell countOrdere d By: Razia Red on 05-14-2025 White blood cell count 10-25 SEEN /hpf 0-5 [facility] Urine Cultureon 05-11-2025 URC Normal [facility] Comment on above: Performed By: #### L 400.0001, M100.2200 ####[facility] [address] [place], [address] Bilirubin Test strip Ql (U)O rdered By: Carla Coughlin on 05-09-2025 Bilirubin Ql (U) Negative Negative [facility] Internal Medicine Office Vis iton 05-09-2025 Internal Medicine Office Visit Normal [facility] Ketones Test strip Ql (U)Ord ered By: Carla Coughlin on 05-09-2025 Ketones Ql (U) Negative Negative [facility] Mucus LM Ql (Urine sed)Order ed By: Carla Coughlin on 05-09-2025 Mucus Ql (Urine sed) 0 SEEN /hpf [facility] Nitrite Test strip Ql (U)Ord ered By: Carla Coughlin on 05-09-2025 Nitrite Ql (U) Negative Negative [facility] Protein Test strip Ql (U)Ord ered By: Carla Coughlin on 05-09-2025 Protein Ql (U) 30 mg/dl High Negative [facility] Squamous epithelial cells de tection in urine sediment by light microscopyOrdered By: Carla Coughlin on 05-09-2025 Epithelial cells.squamous LM Ql (Urine sed) 0-5 SEEN /hpf 5-10 [facility] Urinalysis, Completeon 10-07 -2025 BACTERIA 2+ /hpf Normal None Seen [facility] Comment on above: Order Comment: DAPHNEY CTOR TO SPECIFY Performed By: #### L 400.0001, M100.2200 ####[facility] [address] [place], [address] EPI,SQUAMOUS 0-5 SEEN Normal 5-10 [facility] Comment on above: Order Comment: DAPHNEY CTOR TO SPECIFY Performed By: #### L 400.0001, M100.2200 ####[facility] [address] [place], [address] WBC 5-10 SEEN Normal 0-5 [facility] Comment on above: Order Comment: DAPHNEY CTOR TO SPECIFY Performed By: #### L 400.0001, M100.2200 ####[facility] [address] [place], [address] Mucus Ql (Urine sed) 0 SEEN Normal [facility] Comment on above: Order Comment: DAPHNEY CTOR TO SPECIFY Performed By: #### L 400.0001, M100.2200 ####[facility] [address] [place], [address] RBC 0 SEEN Normal 0-5 [facility] Comment on above: Order Comment: DAPHNEY CTOR TO SPECIFY Performed By: #### L 400.0001, M100.2200 ####[facility] [address] [place], [address] Urine clarityOrdered By: Gypsy Coughlin on 05-09-2025 Clarity (U) Clear Clear [facility] Urine color determinationOrd ered By: Carla Coughlin on 05-09-2025 Color (U) Yellow Yellow [facility] Urine cultureOrdered By: Gypsy Coughlin on 05-09-2025 Bacteria identified Cx Nom (U) Presumptive E. coli Abnormal [facility] Urine glucose detectionOrder ed By: Carla Coughlin on 05-09-2025 Glucose Ql (U) 1000 mg/dl High Normal [facility] Urine leukocyte esterase det ection by dipstickOrdered By: Carla Coughlin on 05-09-2025 Leukocyte esterase Test strip Ql (U) 500 /ul High Negative [facility] Urine pHOrdered By: Carla Coughlin on 05-09-2025 pH (U) 7.0 [pH] 5.0 - 8.0 [facility] Urine sediment bacteria coun t by microscopy (number/high power field)Ordered By: Carla Coughlin on 05-09-2025 Bacteria LM.HPF (Urine sed) [#/Area] 2 /[HPF] None Seen [facility] Urine specific gravity measu rementOrdered By: Carla Coughlin on 05-09-2025 Specific gravity (U) [Rel density] 1.010 1.002-1.030 [facility] Urine urobilinogen measureme ntOrdered By: Carla Coughlin on 05-09-2025 Urobilinogen Ql (U) 1 mg/dl High Normal [facility] White blood cell countOrdere d By: Carla Coughlin on 05-09-2025 White blood cell count 5-10 SEEN /hpf 0-5 [facility] Anion gap in Serum or Plasma Ordered By: Eun Lloyd on 05-02-2025 Anion gap [Moles/Vol] 11 mmol/L 12-15 [facility] BUN/creatinine ratioOrdered By: Eun Lloyd on 05-02-2025 Urea nitrogen/Creatinine [Mass ratio] 17.5 mg/mg 05-22 [facility] Basic Metabolic Profile (BMP )on 05-02-2025 BUN/CRE 17.5 RATIO Normal 05-22 [facility] Comment on above: Performed By: #### L 500.2500 ####[facility] [address] [place], [place], [id number] Calcium [Mass/Vol] 8.6 mg/dL Normal 7.6-11.0 [facility] Comment on above: Performed By: #### L 500.2500 ####[facility] [address] [place], [address] Chloride [Moles/Vol] 91 mmol/L Low 98-108 [facility] Comment on above: Performed By: #### L 500.2500 ####[facility] [address] [place], [address] CO2 [Moles/Vol] 27.9 mmol/L Normal 21.0-32.0 [facility] Comment on above: Performed By: #### L 500.2500 ####[facility] [address] [place], [address] Creatinine [Mass/Vol] 1.64 mg/dL High 0.70-1.20 [facility] Comment on above: Performed By: #### L 500.2500 ####[facility] [address] [place], [address] GAP 11 Normal 5-15 [facility] Comment on above: Performed By: #### L 500.2500 ####[facility] [address] [place], [address] GFR/1.73 sq M.predicted among non-blacks MDRD (S/P/Bld) [Vol rate/Area] 30 mL/min/{1.73_m2} Low >60 [facility] Comment on above: Result Comment: mL/m in/1.73m2 CKD-EPI Creatinine Equation (2020) Performed By: #### L 500.2500 ####[facility] [address] [place], [address] Glucose [Mass/Vol] 120 mg/dL High 70-99 [facility] Comment on above: Performed By: #### L 500.2500 ####[facility] [address] [place], [address] Potassium [Moles/Vol] 3.6 mmol/L Normal 3.3-5.1 [facility] Comment on above: Performed By: #### L 500.2500 ####[facility] [address] [place], [place], [address] Sodium [Moles/Vol] 130 mmol/L Low 133-145 [facility] Comment on above: Performed By: #### L 500.2500 ####[facility] [address] [place], [place], [address] Urea nitrogen [Mass/Vol] 29 mg/dL High 4-19 [facility] Comment on above: Performed By: #### L 500.2500 ####[facility] [address] [place], [place], [id number] Carbon dioxide, total [Moles /volume] in Central venous bloodOrdered By: Eun Lloyd on 05-02-2025 CO2 [Moles/Vol] 27.9 mmol/L 21.0-32.0 [facility] Chloride assayOrdered By: Alee Lloyd on 05-02-2025 Chloride [Moles/Vol] 91 mmol/L Low 98-108 [facility] Glomerular filtration rate ( GFR) estimation/1.73 sq m using serum, plasma, or whole bOrdered By: Eun Lloyd on 05-02-2025 GFR/1.73 sq M.predicted among non-blacks MDRD (S/P/Bld) [Vol rate/Area] 30 mL/min/{1.73_m2} Low >60 [facility] Potassium measurement (mass/ volume)Ordered By: Eun Lloyd on 05-02-2025 Potassium (Unsp spec) [Mass/Vol] 3.6 mmol/L 3.3-5.1 [facility] Serum creatinine measurement (mass/volume)Ordered By: Eun Lloyd on 05-02-2025 Creatinine [Mass/Vol] 1.64 mg/dL High 0.70-1.20 [facility] Serum glucose measurement (m ass/volume)Ordered By: Eun Lloyd on 05-02-2025 Glucose [Mass/Vol] 120 mg/dL High 70-99 [facility] Serum or plasma calcium caleb urement (mass/volume)Ordered By: Eun Lloyd on 05-02-2025 Calcium [Mass/Vol] 8.6 mg/dL 7.6-11.0 [facility] Serum or plasma urea nitroge n measurement (mass/volume)Ordered By: Eun Lloyd on 05-02-2025 Urea nitrogen [Mass/Vol] 29 mg/dL High 4-19 [facility] Sodium levelOrdered By: Jim salas Prema on 05-02-2025 Sodium [Moles/Vol] 130 mmol/L Low 133-145 [facility] Absolute lymphocyte countOrd ered By: Eun Lloyd on 04-14-2025 Lymphocytes Auto (Unsp spec) [#/Vol] 0.74 10*3/uL Low 0.83-4.51 [facility] Anion gap in Serum or Plasma Ordered By: Eun Lloyd on 04-14-2025 Anion gap [Moles/Vol] 12 mmol/L 5-15 [facility] Automated lymphocyte count a s percentage of total leukocytesOrdered By: Eun Lloyd on 04-14-2025 Lymphocytes/100 WBC Auto (Unsp spec) 17.1 % Low 19-41 [facility] BUN/creatinine ratioOrdered By: Eun Lloyd on 04-14-2025 Urea nitrogen/Creatinine [Mass ratio] 22.5 mg/mg High 10-20 [facility] Basic Metabolic Profile (BMP )on 04-14-2025 BUN/CRE 22.5 RATIO High 10- [facility] Comment on above: Performed By: #### L 500.3400, L100.0100, L500.2500, L500.4100 ####[facility] [address] [place], [address] Calcium [Mass/Vol] 8.8 mg/dL Normal 7.6-11.0 [facility] Comment on above: Performed By: #### L 500.3400, L100.0100, L500.2500, L500.4100 ####[facility] [address] [place], [address] Chloride [Moles/Vol] 94 mmol/L Low 98-108 [facility] Comment on above: Performed By: #### L 500.3400, L100.0100, L500.2500, L500.4100 ####[facility] [address] [place], [address] CO2 [Moles/Vol] 25.3 mmol/L Normal 21.0-32.0 [facility] Comment on above: Performed By: #### L 500.3400, L100.0100, L500.2500, L500.4100 ####[facility] [address] [place], [address] Creatinine [Mass/Vol] 1.41 mg/dL High 0.70-1.20 [facility] Comment on above: Performed By: #### L 500.3400, L100.0100, L500.2500, L500.4100 ####[facility] [address] [place], [address] GAP 12 Normal 5-15 [facility] Comment on above: Performed By: #### L 500.3400, L100.0100, L500.2500, L500.4100 ####[facility] [address] [place], [address] GFR/1.73 sq M.predicted among non-blacks MDRD (S/P/Bld) [Vol rate/Area] 36 mL/min/{1.73_m2} Low >60 [facility] Comment on above: Result Comment: mL/m in/1.73m2 CKD-EPI Creatinine Equation (2020) Performed By: #### L 500.3400, L100.0100, L500.2500, L500.4100 ####[facility] [address] [place], [address] Glucose [Mass/Vol] 72 mg/dL Normal 70-99 [facility] Comment on above: Performed By: #### L 500.3400, L100.0100, L500.2500, L500.4100 ####[facility] [address] [place], [address] Potassium [Moles/Vol] 3.6 mmol/L Normal 3.3-5.1 [facility] Comment on above: Result Comment: Hemo lysis present, Results??could be affected.?? Performed By: #### L 500.3400, L100.0100, L500.2500, L500.4100 ####[facility] [address] [place], [address] Sodium [Moles/Vol] 131 mmol/L Low 133-145 [facility] Comment on above: Performed By: #### L 500.3400, L100.0100, L500.2500, L500.4100 ####[facility] [address] [place], [address] Urea nitrogen [Mass/Vol] 32 mg/dL High 4-19 [facility] Comment on above: Performed By: #### L 500.3400, L100.0100, L500.2500, L500.4100 ####[facility] [address] [place], [address] Basophil percentageOrdered B y: Eun Lloyd on 04-14-2025 Basophils/100 WBC (Bld) 1.2 % High 0-1 [facility] Bilirubin directOrdered By: Eun Lloyd on 04-14-2025 Bilirubin.direct [Mass/Vol] 1.08 mg/dL High 0.00-0.30 [facility] Bilirubin, totalOrdered By: Eun Lloyd on 04-14-2025 Bilirubin [Mass/Vol] 2.02 mg/dL High 0.00-1.30 [facility] CBC W/Diff, Automatedon 04-03 Absolute Lymph 0.74 X10 3/uL Low 0.83-4.51 [facility] Comment on above: Order Comment: SEND CBCD TO Performed By: #### L 500.3400, L100.0100, L500.2500, L500.4100 ####[facility] [address] [place], [address] Absolute Neut 2.6 X10 3/uL Normal 2.0-7.7 [facility] Comment on above: Order Comment: SEND CBCD TO Performed By: #### L 500.3400, L100.0100, L500.2500, L500.4100 ####[facility] [address] [place], [address] Basophils/100 WBC (Bld) 1.2 % High 0-1 [facility] Comment on above: Order Comment: SEND CBCD TO Performed By: #### L 500.3400, L100.0100, L500.2500, L500.4100 ####[facility] [address] [place], [address] Eosinophils/100 WBC (Bld) 0.2 % Normal 0-5 [facility] Comment on above: Order Comment: SEND CBCD TO Performed By: #### L 500.3400, L100.0100, L500.2500, L500.4100 ####[facility] [address] [place], [address] Erythrocyte distribution width (RBC) [Ratio] 18.9 % High 11.6-14.6 [facility] Comment on above: Order Comment: SEND CBCD TO Performed By: #### L 500.3400, L100.0100, L500.2500, L500.4100 ####[facility] [address] [place], [address] Hematocrit (Bld) [Volume fraction] 40.2 % Normal 37-47 [facility] Comment on above: Order Comment: SEND CBCD TO Performed By: #### L 500.3400, L100.0100, L500.2500, L500.4100 ####[facility] [address] [place], [address] Hemoglobin (Bld) [Mass/Vol] 13.2 g/dL Normal 12.0-15.0 [facility] Comment on above: Order Comment: SEND CBCD TO Performed By: #### L 500.3400, L100.0100, L500.2500, L500.4100 ####[facility] [address], [address] IG% 0.200 Normal 0.0-0.9 [facility] Comment on above: Order Comment: SEND CBCD TO Result Comment: IG% - Immature Granulocytes (promyelocytes, myelocytes andmetamyelocytes) > 1% indicates that a LEFT SHIFT is Present. Performed By: #### L 500.3400, L100.0100, L500.2500, L500.4100 ####[facility] [address], [address] Lymphocytes/100 WBC (Bld) 17.1 % Low 19-41 [facility] Comment on above: Order Comment: SEND CBCD TO Performed By: #### L 500.3400, L100.0100, L500.2500, L500.4100 ####[facility] [address], [address] MCH (RBC) [Entitic mass] 30.0 pg Normal 27.0-32.0 [facility] Comment on above: Order Comment: SEND CBCD TO Performed By: #### L 500.3400, L100.0100, L500.2500, L500.4100 ####[facility] [address] [place], [address] MCHC (RBC) [Mass/Vol] 32.8 g/dL Normal 32-36 [facility] Comment on above: Order Comment: SEND CBCD TO Performed By: #### L 500.3400, L100.0100, L500.2500, L500.4100 ####[facility] [address] [place], [address] MCV (RBC) [Entitic vol] 91.4 fL Normal 81-99 [facility] Comment on above: Order Comment: SEND CBCD TO Performed By: #### L 500.3400, L100.0100, L500.2500, L500.4100 ####[facility] [address] [place], [address] Monocytes/100 WBC (Bld) 21.4 % High 0-10 [facility] Comment on above: Order Comment: SEND CBCD TO Performed By: #### L 500.3400, L100.0100, L500.2500, L500.4100 ####[facility] [address] [place], [address] Neutrophils/100 WBC (Bld) 59.9 % Normal 47-70 [facility] Comment on above: Order Comment: SEND CBCD TO Performed By: #### L 500.3400, L100.0100, L500.2500, L500.4100 ####[facility] [address] [place], [address] Nucleated RBC (Bld) [#/Vol] 0 10*3/uL Normal 0-5 [facility] Comment on above: Order Comment: SEND CBCD TO Performed By: #### L 500.3400, L100.0100, L500.2500, L500.4100 ####[facility] [address] [place], [address] Platelet mean volume (Bld) [Entitic vol] 9.5 fL Normal 6.2-12.0 [facility] Comment on above: Order Comment: SEND CBCD TO Performed By: #### L 500.3400, L100.0100, L500.2500, L500.4100 ####[facility] [address] [place], [address] Platelets (Bld) [#/Vol] 188 10*3/uL Normal 150-450 [facility] Comment on above: Order Comment: SEND CBCD TO Performed By: #### L 500.3400, L100.0100, L500.2500, L500.4100 ####[facility] [address] [place], [address] RBC (Bld) [#/Vol] 4.40 10*6/uL Normal 4.2-5.4 [facility] Comment on above: Order Comment: SEND CBCD TO Performed By: #### L 500.3400, L100.0100, L500.2500, L500.4100 ####[facility] [address] [place], [address] RDW SD 62.4 fl High 35.1-43.9 [facility] Comment on above: Order Comment: SEND CBCD TO Performed By: #### L 500.3400, L100.0100, L500.2500, L500.4100 ####[facility] [address] [place], [address] WBC (Bld) [#/Vol] 4.3 10*3/uL Low 4.4-11.0 [facility] Comment on above: Order Comment: SEND CBCD TO Performed By: #### L 500.3400, L100.0100, L500.2500, L500.4100 ####[facility] [address] [place], [address] Absolute Neut Normal 2.0-7.7 [facility] Comment on above: Result Comment: DUPL ICATE Performed By: #### L 100.0100 ####[facility] [address] [place], [address] HCT Normal 37-47 [facility] Comment on above: Result Comment: DUPL ICATE Performed By: #### L 100.0100 ####[facility] [address] [place], [address] HGB Normal 12.0-15.0 [facility] Comment on above: Result Comment: DUPL ICATE Performed By: #### L 100.0100 ####[facility] [address] [place], [address] MCH Normal 27.0-32.0 [facility] Comment on above: Result Comment: DUPL ICATE Performed By: #### L 100.0100 ####[facility] [address] [place], [address] MCHC Normal 32-36 [facility] Comment on above: Result Comment: DUPL ICATE Performed By: #### L 100.0100 ####[facility] [address] [place], [address] MCV Normal 81-99 [facility] Comment on above: Result Comment: DUPL ICATE Performed By: #### L 100.0100 ####[facility] [address] [place], [address] NEUT% Normal 47-70 [facility] Comment on above: Result Comment: DUPL ICATE Performed By: #### L 100.0100 ####[facility] [address] [place], [address] PLT Normal 150-450 [facility] Comment on above: Result Comment: DUPL ICATE Performed By: #### L 100.0100 ####[facility] [address] [place], [address] RBC Normal 4.2-5.4 [facility] Comment on above: Result Comment: DUPL ICATE Performed By: #### L 100.0100 ####[facility] [address] [place], [address] RDW CV Normal 11.6-14.6 [facility] Comment on above: Result Comment: DUPL ICATE Performed By: #### L 100.0100 ####[facility] [address] [place], [address] RDW SD Normal 35.1-43.9 [facility] Comment on above: Result Comment: DUPL ICATE Performed By: #### L 100.0100 ####[facility] [address] [place], [address] WBC Normal 4.4-11.0 [facility] Comment on above: Result Comment: DUPL ICATE Performed By: #### L 100.0100 ####[facility] [address] [place], [address] Calculated very low density lipoprotein (VLDL) cholesterol measurementOrdered By: Eun Lloyd on 04-14-2025 Calculated very low density lipoprotein (VLDL) cholesterol measurement 17 mg/dL 5-40 [facility] Carbon dioxide, total [Moles /volume] in Central venous bloodOrdered By: Eun Lloyd on 04-14-2025 CO2 [Moles/Vol] 25.3 mmol/L 21.0-32.0 [facility] Cardiology Visit Reporton Cardiology Visit Report Normal [facility] Chest PA and Lateralon 04-14 Chest PA and Lateral Normal [facility] Chloride assayOrdered By: Alee Lloyd on 04-14-2025 Chloride [Moles/Vol] 94 mmol/L Low 98-108 [facility] Eosinophil percentageOrdered By: Eun Lloyd on 04-14-2025 Eosinophils/100 WBC (Bld) 0.2 % 0-5 [facility] Erythrocyte distribution wid th ratioOrdered By: Eun Lloyd on 04-14-2025 Erythrocyte distribution width (RBC) [Ratio] 18.9 % High 11.6-14.6 [facility] Erythrocyte distribution wid th standard deviationOrdered By: Eun Lloyd on 04-14-2025 Erythrocyte distribution width (RBC) [Ratio] 62.4 fl High 35.1-43.9 [facility] Glomerular filtration rate ( GFR) estimation/1.73 sq m using serum, plasma, or whole bOrdered By: Eun Lloyd on 04-14-2025 GFR/1.73 sq M.predicted among non-blacks MDRD (S/P/Bld) [Vol rate/Area] 36 mL/min/{1.73_m2} Low >60 [facility] Hematocrit Auto (Bld) [Volum e fraction]Ordered By: Eun Lloyd on 04-14-2025 Hematocrit (Bld) [Volume fraction] 40.2 % 37-47 [facility] Hemoglobin measurementOrdere d By: Eun Lloyd on 04-14-2025 Hemoglobin (Bld) [Mass/Vol] 13.2 g/dL 12.0-15.0 [facility] Immature granulocytes/100 WB C Auto (Bld)Ordered By: Eun Lloyd on 04-14-2025 Immature granulocytes/100 WBC (Bld) 0.200 % 0.0-0.9 [facility] LDL calc ser/plasOrdered By: Eun Lloyd on 04-14-2025 Cholesterol in LDL [Mass/Vol] 51 mg/dL [facility] Lipid Profileon 04-14-2025 CHOL:HDL 2.64 Normal [facility] Comment on above: Performed By: #### L 500.3400, L100.0100, L500.2500, L500.4100 ####[facility] [address] [place], [address] Cholesterol [Mass/Vol] 109 mg/dL Normal <=200 [facility] Comment on above: Result Comment: Chol esterol level, Desirable <200 mg/dLBorderline high cholesterol 200-239 mg/dLHigh cholesterol >=240 mg/dLRecommendations of the NCEP Adult Treatment Panel for thefollowing risk-cutoff thresholds for the [place] [facility]. Performed By: #### L 500.3400, L100.0100, L500.2500, L500.4100 ####[facility] [address] [place], [address] Cholesterol in HDL [Mass/Vol] 41 mg/dL Normal [facility] Comment on above: Result Comment: Sharita onal Cholesterol Education Program (NCEP) guidelines:<40 mg/dL: Low HDL-cholesterol (major risk factor for CHD)>= 60 mg/dL: High HDL-cholesterol (negative risk factor forCHD)HDL-cholesterol is affected by a number of factors, e.g.smoking, exercise, hormones, sex and age. Performed By: #### L 500.3400, L100.0100, L500.2500, L500.4100 ####[facility] [address] [place], [address] Cholesterol in LDL [Mass/Vol] 51 mg/dL Normal [facility] Comment on above: Result Comment: Bord ynodcy=991-684 mg/dL Higher Hmrv=461 mg/dL or greaterFriedwald Equation for LDL-C Performed By: #### L 500.3400, L100.0100, L500.2500, L500.4100 ####[facility] [address] [place], [address] Cholesterol in VLDL [Mass/Vol] 17 mg/dL Normal 5-40 [facility] Comment on above: Performed By: #### L 500.3400, L100.0100, L500.2500, L500.4100 ####[facility] [address] [place], [address] Triglyceride [Mass/Vol] 83 mg/dL Normal [facility] Comment on above: Result Comment: The drugs N-Acetylcysteine and Metamizole may falselydepress this assay.Normal range: <150 mg/dLBorderline High: 150-199 mg/dLHigh: 200-499 mg/dLVery High: >500 mg/dL Performed By: #### L 500.3400, L100.0100, L500.2500, L500.4100 ####[facility] [address] [place], [address] Liver Profileon 04-14-2025 Albumin [Mass/Vol] 3.6 g/dL Normal 3.4-4.8 [facility] Comment on above: Performed By: #### L 500.3400, L100.0100, L500.2500, L500.4100 ####[facility] [address] [place], [address] ALK PHOS 143 U/L High 35-104 [facility] Comment on above: Performed By: #### L 500.3400, L100.0100, L500.2500, L500.4100 ####[facility] [address] [place], [address] ALT [Catalytic activity/Vol] 27 U/L Normal <=34 [facility] Comment on above: Performed By: #### L 500.3400, L100.0100, L500.2500, L500.4100 ####[facility] [address] [place], [address] AST [Catalytic activity/Vol] 55 U/L High <=31 [facility] Comment on above: Result Comment: Hemo lysis present, Results??could be affected.?? Performed By: #### L 500.3400, L100.0100, L500.2500, L500.4100 ####[facility] [address] [place], [address] Bilirubin [Mass/Vol] 2.02 mg/dL High 0.00-1.30 [facility] Comment on above: Performed By: #### L 500.3400, L100.0100, L500.2500, L500.4100 ####[facility] [address] [place], [address] Bilirubin.direct [Mass/Vol] 1.08 mg/dL High 0.00-0.30 [facility] Comment on above: Result Comment: Hemo lysis present, Results??could be affected.?? Performed By: #### L 500.3400, L100.0100, L500.2500, L500.4100 ####[facility] [address] [place], [address] Globulin (S) [Mass/Vol] 2.6 g/dL Normal 2.2-4.2 [facility] Comment on above: Performed By: #### L 500.3400, L100.0100, L500.2500, L500.4100 ####[facility] [address] [place], [address] T PROT 6.2 g/dL Normal 5.9-8.4 [facility] Comment on above: Performed By: #### L 500.3400, L100.0100, L500.2500, L500.4100 ####[facility] [address] [place], [address] MCV (mean corpuscular volume ) determinationOrdered By: Eun Lloyd on 04-14-2025 MCV (RBC) [Entitic vol] 91.4 fL 81-99 [facility] Mean corpuscular hemoglobin (MCH) determinationOrdered By: Eun Lloyd on 04-14-2025 MCH (RBC) [Entitic mass] 30.0 pg 27.0-32.0 [facility] Monocyte percentageOrdered B y: Eun Lloyd on 04-14-2025 Monocytes/100 WBC (Bld) 21.4 % High 0-10 [facility] Neutrophil percentageOrdered By: Eun Lloyd on 04-14-2025 Neutrophils/100 WBC (Bld) 59.9 % 47-70 [facility] No Panel InformationOrdered By: Eun Lloyd on 04-14-2025 55 U/L High <32 [facility] Platelet countOrdered By: Alee Lloyd on 04-14-2025 Platelets (Bld) [#/Vol] 188 10*3/uL 150-450 [facility] Potassium measurement (mass/ volume)Ordered By: Eun Lloyd on 04-14-2025 Potassium (Unsp spec) [Mass/Vol] 3.6 mmol/L 3.3-5.1 [facility] RBC Auto (Bld) [#/Vol]Ordere d By: Eun Lloyd on 04-14-2025 RBC (Bld) [#/Vol] 4.40 10*6/uL 4.2-5.4 [facility] Serum creatinine measurement (mass/volume)Ordered By: Eun Lloyd on 04-14-2025 Creatinine [Mass/Vol] 1.41 mg/dL High 0.70-1.20 [facility] Serum globulin measurementOr dered By: Eun Lloyd on 04-14-2025 Globulin (S) [Mass/Vol] 2.6 g/dL 2.2-4.2 [facility] Serum glucose measurement (m ass/volume)Ordered By: Eun Lloyd on 04-14-2025 Glucose [Mass/Vol] 72 mg/dL 70-99 [facility] Serum or plasma alanine henderson otransferase (ALT) measurementOrdered By: Eun Lloyd on 04-14-2025 ALT [Catalytic activity/Vol] 27 U/L <35 [facility] Serum or plasma albumin caleb urement (mass/volume)Ordered By: Eun Lloyd on 04-14-2025 Albumin [Mass/Vol] 3.6 g/dL 3.4-4.8 [facility] Serum or plasma alkaline lexus sphatase measurementOrdered By: Eun Lloyd on 04-14-2025 ALP [Catalytic activity/Vol] 143 U/L High 35-104 [facility] Serum or plasma calcium caleb urement (mass/volume)Ordered By: Eun Lloyd on 04-14-2025 Calcium [Mass/Vol] 8.8 mg/dL 7.6-11.0 [facility] Serum or plasma cholesterol in HDL measurement (mass/volume)Ordered By: Eun Lloyd on 04-14-2025 Cholesterol in HDL [Mass/Vol] 41 mg/dL >40 [facility] Serum or plasma cholesterol measurement (mass/volume)Ordered By: Eun Lloyd on 04-14-2025 Cholesterol [Mass/Vol] 109 mg/dL <201 [facility] Serum or plasma urea nitroge n measurement (mass/volume)Ordered By: Eun Lloyd on 04-14-2025 Urea nitrogen [Mass/Vol] 32 mg/dL High 4-19 [facility] Sodium levelOrdered By: Jim salas Prema on 04-14-2025 Sodium [Moles/Vol] 131 mmol/L Low 133-145 [facility] Total proteinOrdered By: Osvaldo kate Prema on 04-14-2025 Protein [Mass/Vol] 6.2 g/dL 5.9-8.4 [facility] White blood cell (WBC) count Ordered By: Eun Lloyd on 04-14-2025 WBC (Bld) [#/Vol] 4.3 10*3/uL Low 4.4-11.0 [facility] Urine Cultureon 04-12-2025 URC Normal [facility] Comment on above: Performed By: #### M 100.2200 ####[facility] [address] [place], [place], [address] Urine cultureOrdered By: Carlito Rene on 04-10-2025 Bacteria identified Cx Nom (U) Escherichia coli Abnormal [facility] No Panel InformationOrdered By: Dheeraj Rene on 04-09-2025 DARK YELLOW [facility] 160 mg/dL High 70-110 [facility] Clear [facility] 500 g/dL [facility] Negative [facility] 1.010 [facility] 6.0 [facility] Trace [facility] Positive [facility] Urgent Care Visit Reporton 0 04-09-2025 Urgent Care Visit Report Normal [facility] Urine Cultureon 03-22-2025 URC Normal [facility] Comment on above: Performed By: #### M 100.2200 ####[facility] [address] [place], [place], [address] Internal Medicine Office Vis iton 03-20-2025 Internal Medicine Office Visit Normal [facility] No Panel InformationOrdered By: Carla Coughlin on 03-20-2025 DARK YELLOW [facility] Cloudy [facility] 250 g/dL [facility] Trace (5) [facility] 1.010 [facility] 7.5 [facility] Negative [facility] 1 mg/dL [facility] Hemolyzed [facility] Large [facility] Trace [facility] Positive [facility] Urine cultureOrdered By: Gypsy Coughlin on 03-20-2025 Bacteria identified Cx Nom (U) Presumptive E. coli Abnormal [facility] Anion gap in Serum or Plasma Ordered By: Eun Lloyd on 03-01-2025 Anion gap [Moles/Vol] 13 mmol/L 5-15 [facility] BUN/creatinine ratioOrdered By: Eun Lloyd on 03-01-2025 Urea nitrogen/Creatinine [Mass ratio] 24.4 mg/mg High 10-20 [facility] Basic Metabolic Profile (BMP )on 03-01-2025 BUN/CRE 24.4 RATIO High 10-20 [facility] Comment on above: Order Comment: Send result to Dr. Fish also Performed By: #### L 500.2500 ####[facility] [address] [place], [address] Calcium [Mass/Vol] 9.5 mg/dL Normal 7.6-11.0 [facility] Comment on above: Order Comment: Send result to Dr. Fish also Performed By: #### L 500.2500 ####[facility] [address] [place], [address] Chloride [Moles/Vol] 92 mmol/L Low 98-108 [facility] Comment on above: Order Comment: Send result to Dr. Fish also Performed By: #### L 500.2500 ####[facility] [address] [place], [address] CO2 [Moles/Vol] 26.2 mmol/L Normal 21.0-32.0 [facility] Comment on above: Order Comment: Send result to Dr. Fish also Performed By: #### L 500.2500 ####[facility] [address] [place], [address] Creatinine [Mass/Vol] 1.17 mg/dL Normal 0.70-1.20 [facility] Comment on above: Order Comment: Send result to Dr. Fish also Performed By: #### L 500.2500 ####[facility] [address] [place], [address] GAP 13 Normal 5-15 [facility] Comment on above: Order Comment: Send result to Dr. Fish also Performed By: #### L 500.2500 ####[facility] [address] [place], [address] GFR/1.73 sq M.predicted among non-blacks MDRD (S/P/Bld) [Vol rate/Area] 45 mL/min/{1.73_m2} Low >60 [facility] Comment on above: Order Comment: Send result to Dr. Fish also Result Comment: mL/m in/1.73m2 CKD-EPI Creatinine Equation (2020) Performed By: #### L 500.2500 ####[facility] [address], [address] Glucose [Mass/Vol] 88 mg/dL Normal 70-99 [facility] Comment on above: Order Comment: Send result to Dr. Fish also Performed By: #### L 500.2500 ####[facility] [address] [place], [address] Potassium [Moles/Vol] 3.5 mmol/L Normal 3.3-5.1 [facility] Comment on above: Order Comment: Send result to Dr. Fish also Performed By: #### L 500.2500 ####[facility] [address] [place], [address] Sodium [Moles/Vol] 131 mmol/L Low 133-145 [facility] Comment on above: Order Comment: Send result to Dr. Fish also Performed By: #### L 500.2500 ####[facility] [address] [place], [place], [address] Urea nitrogen [Mass/Vol] 29 mg/dL High 4-19 [facility] Comment on above: Order Comment: Send result to Dr. Fish also Performed By: #### L 500.2500 ####[facility] [address] [place], [address] Carbon dioxide, total [Moles /volume] in Central venous bloodOrdered By: Eun Lloyd on 03-01-2025 CO2 [Moles/Vol] 26.2 mmol/L 21.0-32.0 [facility] Chloride assayOrdered By: Alee Lloyd on 03-01-2025 Chloride [Moles/Vol] 92 mmol/L Low 98-108 [facility] Glomerular filtration rate ( GFR) estimation/1.73 sq m using serum, plasma, or whole bOrdered By: Eun Lloyd on 03-01-2025 GFR/1.73 sq M.predicted among non-blacks MDRD (S/P/Bld) [Vol rate/Area] 45 mL/min/{1.73_m2} Low >60 [facility] Internal Medicine Office Vis iton 03-01-2025 Internal Medicine Office Visit Normal [facility] Potassium measurement (mass/ volume)Ordered By: Eun Lloyd on 03-01-2025 Potassium (Unsp spec) [Mass/Vol] 3.5 mmol/L 3.3-5.1 [facility] Serum creatinine measurement (mass/volume)Ordered By: Eun Lloyd on 03-01-2025 Creatinine [Mass/Vol] 1.17 mg/dL 0.70-1.20 [facility] Serum glucose measurement (m ass/volume)Ordered By: Eun Lloyd on 03-01-2025 Glucose [Mass/Vol] 88 mg/dL 70-99 [facility] Serum or plasma calcium caleb urement (mass/volume)Ordered By: Eun Lloyd on 03-01-2025 Calcium [Mass/Vol] 9.5 mg/dL 7.6-11.0 [facility] Serum or plasma urea nitroge n measurement (mass/volume)Ordered By: Eun Lloyd on 03-01-2025 Urea nitrogen [Mass/Vol] 29 mg/dL High 4-19 [facility] Sodium levelOrdered By: Jim Lloyd on 03-01-2025 Sodium [Moles/Vol] 131 mmol/L Low 133-145 [facility] Internal Medicine Office Vis iton 02-23-2025 Internal Medicine Office Visit Normal [facility] Cardiology Visit Reporton Cardiology Visit Report Normal [facility] Anion gap in Serum or Plasma Ordered By: Radha Fish on 02-13-2025 Anion gap [Moles/Vol] 12 mmol/L 5-15 [facility] Automated blood erythrocyte countOrdered By: Radha Fish on 02-13-2025 RBC (Bld) [#/Vol] 3.43 10*6/uL Low 4.2-5.4 [facility] Comment on above: Performed By: #### L 100.0500, L500.2500 ####[facility] [address] [place], [place], [id number] Automated blood hematocrit ( percentage)Ordered By: Radha Fish on 02-13-2025 Hematocrit (Bld) [Volume fraction] 34.4 % Low 37-47 [facility] Comment on above: Performed By: #### L 100.0500, L500.2500 ####[facility] [address] [place], [place], [id number] BUN/creatinine ratioOrdered By: Radha Fish on 02-13-2025 Urea nitrogen/Creatinine [Mass ratio] 24.9 mg/mg High 10- [facility] Basic Metabolic Profile (BMP )on 02-13-2025 BUN/CRE 24.9 RATIO High 05-22 [facility] Comment on above: Performed By: #### L 100.0500, L500.2500 ####[facility] [address] [place], [address] GAP 12 Normal 5-15 [facility] Comment on above: Performed By: #### L 100.0500, L500.2500 ####[facility] [address] [place], [address] Potassium [Moles/Vol] 4.0 mmol/L Normal 3.3-5.1 [facility] Comment on above: Performed By: #### L 100.0500, L500.2500 ####[facility] [address] [place], [address] CBC-Complete Blood Cnt No Di ffon 02-13-2025 MCHC (RBC) [Mass/Vol] 32.6 g/dL Normal 32-36 [facility] Comment on above: Performed By: #### L 100.0500, L500.2500 ####[facility] [address] [place], [address] Platelet mean volume (Bld) [Entitic vol] 9.0 fL Normal 6.2-12.0 [facility] Comment on above: Performed By: #### L 100.0500, L500.2500 ####[facility] [address] [place], [address] RDW SD 63.1 fl High 35.1-43.9 [facility] Comment on above: Performed By: #### L 100.0500, L500.2500 ####[facility] [address] [place], [address] Carbon dioxide, total [Moles /volume] in Central venous bloodOrdered By: Radha Fish on 02-13-2025 CO2 [Moles/Vol] 17.4 mmol/L Low 21.0-32.0 [facility] Comment on above: Performed By: #### L 100.0500, L500.2500 ####[facility] [address] [place], [address] Chloride assayOrdered By: Elina shanelosman Fish on 02-13-2025 Chloride [Moles/Vol] 103 mmol/L Normal 98-108 [facility] Comment on above: Performed By: #### L 100.0500, L500.2500 ####[facility] [address] [place], [address] Erythrocyte distribution wid th ratioOrdered By: Radha Fish on 02-13-2025 Erythrocyte distribution width (RBC) [Ratio] 18.8 % High 11.6-14.6 [facility] Comment on above: Performed By: #### L 100.0500, L500.2500 ####[facility] [address] [place], [address] Erythrocyte distribution wid th standard deviationOrdered By: Radha Fish on 02-13-2025 Erythrocyte distribution width (RBC) [Ratio] 63.1 fl High 35.1-43.9 [facility] Glomerular filtration rate ( GFR) estimation/1.73 sq m using serum, plasma, or whole bOrdered By: Radha Fish on 02-13-2025 GFR/1.73 sq M.predicted among non-blacks MDRD (S/P/Bld) [Vol rate/Area] 51 mL/min/{1.73_m2} Low >60 [facility] Comment on above: Result Comment: mL/m in/1.73m2 CKD-EPI Creatinine Equation (2020) Performed By: #### L 100.0500, L500.2500 ####[facility] [address] [place], [address] Hemoglobin measurementOrdere d By: Radha Fish on 02-13-2025 Hemoglobin (Bld) [Mass/Vol] 11.2 g/dL Low 12.0-15.0 [facility] Comment on above: Performed By: #### L 100.0500, L500.2500 ####[facility] [address] [place], [address] MCV (mean corpuscular volume ) determinationOrdered By: Radha Fish on 02-13-2025 MCV (RBC) [Entitic vol] 100.3 fL High 81-99 [facility] Comment on above: Performed By: #### L 100.0500, L500.2500 ####[facility] [address] [place], [address] Mean corpuscular hemoglobin (MCH) determinationOrdered By: Radha Fish on 02-13-2025 MCH (RBC) [Entitic mass] 32.7 pg High 27.0-32.0 [facility] Comment on above: Performed By: #### L 100.0500, L500.2500 ####[facility] [address], [address] Platelet countOrdered By: Elina Fish on 02-13-2025 Platelets (Bld) [#/Vol] 251 10*3/uL Normal 150-450 [facility] Comment on above: Performed By: #### L 100.0500, L500.2500 ####[facility] [address] [place], [address] Potassium measurement (mass/ volume)Ordered By: Radha Fish on 02-13-2025 Potassium (Unsp spec) [Mass/Vol] 4.0 mmol/L 3.3-5.1 [facility] Serum creatinine measurement (mass/volume)Ordered By: Radha Fish on 02-13-2025 Creatinine [Mass/Vol] 1.05 mg/dL Normal 0.70-1.20 [facility] Comment on above: Performed By: #### L 100.0500, L500.2500 ####[facility] [address] [place], [address] Serum glucose measurement (m ass/volume)Ordered By: Radha Fish on 02-13-2025 Glucose [Mass/Vol] 122 mg/dL High 70-99 [facility] Comment on above: Performed By: #### L 100.0500, L500.2500 ####[facility] [address] [place], [address] Serum or plasma calcium caleb urement (mass/volume)Ordered By: Radha Fish on 02-13-2025 Calcium [Mass/Vol] 8.4 mg/dL Normal 7.6-11.0 [facility] Comment on above: Performed By: #### L 100.0500, L500.2500 ####[facility] [id number] [place], [address] Serum or plasma urea nitroge n measurement (mass/volume)Ordered By: Radha Fish on 02-13-2025 Urea nitrogen [Mass/Vol] 26 mg/dL High 4-19 [facility] Comment on above: Performed By: #### L 100.0500, L500.2500 ####[facility] [id number] [place], [address] Sodium levelOrdered By: Hugh Fish on 02-13-2025 Sodium [Moles/Vol] 132 mmol/L Low 133-145 [facility] Comment on above: Performed By: #### L 100.0500, L500.2500 ####[facility] [id number] [place], [address] White blood cell (WBC) count Ordered By: Radha Fish on 02-13-2025 WBC (Bld) [#/Vol] 4.7 10*3/uL Normal 4.4-11.0 [facility] Comment on above: Performed By: #### L 100.0500, L500.2500 ####[facility] [id number] [place], [address] Basic metabolic 2000 panelon 02-08-2025 Anion gap [Moles/Vol] 13 mmol/L Normal 8-15 [facility] Comment on above: Order Comment: Speci men Type: BLOOD SPECIMEN Ordering Facility: [facility] Address: [address] [place] [address] Performed By: #### 3 4528-0 #### [facility] CLIA [id number] [address] [place] Calcium [Mass/Vol] 8.0 mg/dL Low 8.5-10.2 [facility] Comment on above: Order Comment: Speci men Type: BLOOD SPECIMEN Ordering Facility: [facility] Address: [address] [place] [address] Performed By: #### 3 4528-0 #### [facility] CLIA [id number] [address] [place] Chloride [Moles/Vol] 98 mmol/L Normal 98-107 [facility] Comment on above: Order Comment: Speci men Type: BLOOD SPECIMEN Ordering Facility: [facility] Address: [address] [place] [address] Performed By: #### 3 4528-0 #### [facility] CLIA [id number] [address] [place] CO2 [Moles/Vol] 18 mmol/L Low 22-30 [facility] Comment on above: Order Comment: Speci men Type: BLOOD SPECIMEN Ordering Facility: [facility] Address: [address] [place] [address] Performed By: #### 3 4528-0 #### [facility] CLIA [id number] [address] [place] Creatinine [Mass/Vol] 0.91 mg/dL Normal 0.58-0.96 [facility] Comment on above: Order Comment: Speci men Type: BLOOD SPECIMEN Ordering Facility: [facility] Address: [address] [place] [address] Performed By: #### 3 4528-0 #### [facility] CLIA [id number] [address] [place] Creatinine and Glomerular filtration rate.predicted panel (S/P/Bld) 61 mL/min/1.73m??? Normal >=60 [facility] Comment on above: Order Comment: Claudia howell Type: BLOOD SPECIMEN Ordering Facility: [facility] Address: [address] [place] [address] Result Comment: Kiki mated Glomerular Filtration Rate [...] GFR. Performed By: #### 3 4528-0 #### [facility] CLIA [id number] [address] [place] [address] [place] Glucose [Mass/Vol] 81 mg/dL Normal 74-99 [facility] Comment on above: Order Comment: Claudia howell Type: BLOOD SPECIMEN Ordering Facility: [facility] Address: [address] [place] [address] Result Comment: The [place] [employer] (ADA) provides guidance for cutoff [...] Standards of Medical Care in Diabetes 2016, [place] [employer]. Diabetes Care. 2016.39(Suppl 1). Performed By: #### 3 4528-0 #### [facility] CLIA [id number] [address] [place] [address] [place] Potassium [Moles/Vol] 4.5 mmol/L Normal 3.7-5.1 [facility] Comment on above: Order Comment: Claudia howell Type: BLOOD SPECIMEN Ordering Facility: [facility] Address: [address] [place] [address] Performed By: #### 3 4528-0 #### [facility] CLIA [id number] [address] Sodium [Moles/Vol] 129 mmol/L Low 136-144 [facility] Comment on above: Order Comment: Speci men Type: BLOOD SPECIMEN Ordering Facility: [facility] Address: [address] [place] [address] Performed By: #### 3 4528-0 #### [facility] CLIA [id number] [address] STATES [facility] Urea nitrogen [Mass/Vol] 21 mg/dL Normal 7-21 [facility] Comment on above: Order Comment: Speci men Type: BLOOD SPECIMEN Ordering Facility: [facility] Address: [address] [place] [address] Performed By: #### 3 4528-0 #### [facility] CLIA [id number] [address] CBC W Auto Differential pane l (Bld)on 02-08-2025 Basophils (Bld) [#/Vol] 0.04 10*3/uL Normal <0.11 [facility] Comment on above: Order Comment: Speci men Type: BLOOD SPECIMEN Ordering Facility: [facility] Address: [address] [place] [address] Performed By: #### 2 4321-2 #### [facility] CLIA [id number] [address] Basophils/100 WBC (Bld) 0.9 % Normal [facility] Comment on above: Order Comment: Speci men Type: BLOOD SPECIMEN Ordering Facility: [facility] Address: [address] [place] [address] Performed By: #### 2 4321-2 #### [facility] CLIA [id number] [address] Differential cell count method Nom (Bld) Auto Normal [facility] Comment on above: Order Comment: Speci men Type: BLOOD SPECIMEN Ordering Facility: [facility] Address: [address] [place] [address] Performed By: #### 2 4321-2 #### [facility] CLIA [id number] [address] Eosinophils (Bld) [#/Vol] 10*3/uL Normal <0.46 [facility] Comment on above: Order Comment: Speci men Type: BLOOD SPECIMEN Ordering Facility: [facility] Address: [address] [place] [address] Performed By: #### 2 4321-2 #### [facility] CLIA [id number] [address] Eosinophils/100 WBC (Bld) 0.5 % Normal [facility] Comment on above: Order Comment: Speci men Type: BLOOD SPECIMEN Ordering Facility: [facility] Address: [address] [place] [address] Performed By: #### 2 1-2 #### [facility] CLIA [id number] [address] [place] Erythrocyte distribution width (RBC) [Ratio] 16.2 % High 11.5-15.0 [facility] Comment on above: Order Comment: Speci men Type: BLOOD SPECIMEN Ordering Facility: [facility] Address: [address] [place] [address] Performed By: #### 2 4321-2 #### [facility] CLIA [id number] [address] [place] Hematocrit (Bld) [Volume fraction] 36.0 % Normal 36.0-46.0 [facility] Comment on above: Order Comment: Speci men Type: BLOOD SPECIMEN Ordering Facility: [facility] Address: [address] [place] [address] Performed By: #### 2 1-2 #### [facility] CLIA [id number] [address] [place] Hemoglobin (Bld) [Mass/Vol] 11.2 g/dL Low 11.5-15.5 [facility] Comment on above: Order Comment: Speci men Type: BLOOD SPECIMEN Ordering Facility: [facility] Address: [address] [place] [address] Performed By: #### 2 4321-2 #### [facility] CLIA [id number] [address] Immature granulocytes (Bld) [#/Vol] 10*3/uL Normal <0.10 [facility] Comment on above: Order Comment: Speci men Type: BLOOD SPECIMEN Ordering Facility: [facility] Address: [address] [place] [address] Performed By: #### 2 1-2 #### [facility] CLIA [id number] [address] Immature granulocytes/100 WBC (Bld) 0.5 % Normal [facility] Comment on above: Order Comment: Speci men Type: BLOOD SPECIMEN Ordering Facility: [facility] Address: [address] [place] [address] Performed By: #### 2 1-2 #### [facility] CLIA [id number] [address] Lymphocytes (Bld) [#/Vol] 0.41 10*3/uL Low 1.00-4.00 [facility] Comment on above: Order Comment: Speci men Type: BLOOD SPECIMEN Ordering Facility: [facility] Address: [address] [place] [address] Performed By: #### 2 4321-2 #### [facility] CLIA [id number] [address] Lymphocytes/100 WBC (Bld) 9.3 % Normal [facility] Comment on above: Order Comment: Speci men Type: BLOOD SPECIMEN Ordering Facility: [facility] Address: [address] [place] [address] Performed By: #### 2 1-2 #### [facility] CLIA [id number] [address] [place] [address] [place] MCH (RBC) [Entitic mass] 31.5 pg Normal 26.0-34.0 [facility] Comment on above: Order Comment: Speci men Type: BLOOD SPECIMEN Ordering Facility: [facility] Address: [address] [place] [address] Performed By: #### 2 4321-2 #### [facility] CLIA [id number] [address] [place] MCHC (RBC) [Mass/Vol] 31.1 g/dL Normal 30.5-36.0 [facility] Comment on above: Order Comment: Speci men Type: BLOOD SPECIMEN Ordering Facility: [facility] Address: [address] [place] [address] Performed By: #### 2 1-2 #### [facility] CLIA [id number] [address] STATES OF [facility] MCV (RBC) [Entitic vol] 101.1 fL High 80.0-100.0 [facility] Comment on above: Order Comment: Speci men Type: BLOOD SPECIMEN Ordering Facility: [facility] Address: [address] [place] [address] Performed By: #### 2 1-2 #### [facility] CLIA [id number] [address] OF [facility] Monocytes (Bld) [#/Vol] 0.74 10*3/uL Normal <0.87 [facility] Comment on above: Order Comment: Speci men Type: BLOOD SPECIMEN Ordering Facility: [facility] Address: [address] [place] [address] Performed By: #### 2 1-2 #### [facility] CLIA [id number] [address] Monocytes/100 WBC (Bld) 16.7 % Normal [facility] Comment on above: Order Comment: Speci men Type: BLOOD SPECIMEN Ordering Facility: [facility] Address: [address] [place] [address] Performed By: #### 2 1-2 #### [facility] CLIA [id number] [address] [place] Neutrophils (Bld) [#/Vol] 3.20 10*3/uL Normal 1.45-7.50 [facility] Comment on above: Order Comment: Speci men Type: BLOOD SPECIMEN Ordering Facility: [facility] Address: [address] [place] [address] Performed By: #### 2 4321-2 #### [facility] CLIA [id number] [address] [place] Neutrophils/100 WBC (Bld) 72.1 % Normal [facility] Comment on above: Order Comment: Speci men Type: BLOOD SPECIMEN Ordering Facility: [facility] Address: [address] [place] [address] Performed By: #### 2 4321-2 #### [facility] CLIA [id number] [address] [place] Nucleated RBC (Bld) [#/Vol] 10*3/uL Normal <0.01 [facility] Comment on above: Order Comment: Speci men Type: BLOOD SPECIMEN Ordering Facility: [facility] Address: [address] [place] [address] Performed By: #### 2 4321-2 #### [facility] CLIA [id number] [address] [place] Nucleated RBC/100 WBC (Bld) [Ratio] 0.0 /100 WBC Normal [facility] Comment on above: Order Comment: Speci men Type: BLOOD SPECIMEN Ordering Facility: [facility] Address: [address] [place] [address] Performed By: #### 2 4321-2 #### [facility] CLIA [id number] [address] [place] Platelet mean volume (Bld) [Entitic vol] 9.1 fL Normal 9.0-12.7 [facility] Comment on above: Order Comment: Speci men Type: BLOOD SPECIMEN Ordering Facility: [facility] Address: [address] [place] [address] Performed By: #### 2 4321-2 #### [facility] CLIA [id number] [address] Platelets (Bld) [#/Vol] 155 10*3/uL Normal 150-400 [facility] Comment on above: Order Comment: Speci men Type: BLOOD SPECIMEN Ordering Facility: [facility] Address: [address] [place] [address] Performed By: #### 2 4321-2 #### [facility] CLIA [id number] [address] RBC (Bld) [#/Vol] 3.56 10*6/uL Low 3.90-5.20 [facility] Comment on above: Order Comment: Speci men Type: BLOOD SPECIMEN Ordering Facility: [facility] Address: [address] [place] [address] Performed By: #### 2 4321-2 #### [facility] CLIA [id number] [address] WBC (Bld) [#/Vol] 4.43 10*3/uL Normal 3.70-11.00 [facility] Comment on above: Order Comment: Speci men Type: BLOOD SPECIMEN Ordering Facility: [facility] Address: [address] [place] [address] Performed By: #### 2 4321-2 #### [facility] CLIA [id number] [address] CNDSon 02-08-2025 CNDS HNO ID: [id number] Author: LISA FISH MD Service: Hospital Medicine [...] Hospital Doctor: Lisa Fish,* Primary Care Provider: Radha Fish MD [...] pulmonary hypertension and who was transferred from [facility] where she had presented with [...] pleasant 89-year-old female presents as transfer from [facility] for rectus sheath hematoma. She [...] MD Consulting: Susana Haji MD Primary Service: [facility] Consulting: Adelia Sagastume MD FINAL DIAGNOSIS: Rectus [...] results. FOLLOW-UP APPOINTMENTS ALREADY SCHEDULED WITH A [facility] PROVIDER: No future appointments. Discharge Information Row Name ED to Hosp-Admission (Current) from 01/31/2025 in [facility] Phone# [phone] (more content not included)... Normal [facility] ECHOon 02-08-2025 Echocardiography Echocardiography Report: Transthoracic Echo [facility] Date of service: 02/08/2025 12:45[facility] Ordering physician: HIMANSHU DECKER Exam indication: Initial evaluation of Heart Failure Technologist: Evie Pantjoa Interpreting physician: Dakotah Cuenca MD PATIENT: Name: [...] * * Final * * * CC [employer] Medical Image : [id number] ISUID Normal [facility] CBC W Auto Differential pane l (Bld)on 02-07-2025 Basophils (Bld) [#/Vol] 0.03 10*3/uL Normal <0.11 [facility] Comment on above: Order Comment: Speci men Type: BLOOD SPECIMEN Ordering Facility: [facility] Address: [address] [place] [address] Performed By: #### 3 4528-0 #### [facility] CLIA [id number] [address] STATES OF [facility] Basophils/100 WBC (Bld) 0.6 % Normal [facility] Comment on above: Order Comment: Speci men Type: BLOOD SPECIMEN Ordering Facility: [facility] Address: [address] [place] [address] Performed By: #### 3 4528-0 #### [facility] CLIA [id number] [address] Differential cell count method Nom (Bld) Auto Normal [facility] Comment on above: Order Comment: Speci men Type: BLOOD SPECIMEN Ordering Facility: [facility] Address: [address] [place] [address] Performed By: #### 3 4528-0 #### [facility] CLIA [id number] [address] OF [facility] Eosinophils (Bld) [#/Vol] 0.05 10*3/uL Normal <0.46 [facility] Comment on above: Order Comment: Speci men Type: BLOOD SPECIMEN Ordering Facility: [facility] Address: [address] [place] [address] Performed By: #### 3 4528-0 #### [facility] CLIA [id number] [address] Eosinophils/100 WBC (Bld) 1.0 % Normal [facility] Comment on above: Order Comment: Speci men Type: BLOOD SPECIMEN Ordering Facility: [facility] Address: [address] [place] [address] Performed By: #### 3 4528-0 #### [facility] CLIA [id number] [address] Erythrocyte distribution width (RBC) [Ratio] 16.0 % High 11.5-15.0 [facility] Comment on above: Order Comment: Speci men Type: BLOOD SPECIMEN Ordering Facility: [facility] Address: [address] [place] [address] Performed By: #### 3 4528-0 #### [facility] CLIA [id number] [address] Hematocrit (Bld) [Volume fraction] 33.4 % Low 36.0-46.0 [facility] Comment on above: Order Comment: Speci men Type: BLOOD SPECIMEN Ordering Facility: [facility] Address: [address] [place] [address] Performed By: #### 3 4528-0 #### [facility] CLIA [id number] [address] [place] Hemoglobin (Bld) [Mass/Vol] 10.8 g/dL Low 11.5-15.5 [facility] Comment on above: Order Comment: Speci men Type: BLOOD SPECIMEN Ordering Facility: [facility] Address: [address] [place] [address] Performed By: #### 3 4528-0 #### [facility] CLIA [id number] [address] [place] [address] [place] Immature granulocytes (Bld) [#/Vol] 0.05 10*3/uL Normal <0.10 [facility] Comment on above: Order Comment: Speci men Type: BLOOD SPECIMEN Ordering Facility: [facility] Address: [address] [place] [address] Performed By: #### 3 4528-0 #### [facility] CLIA [id number] [address] [place] Immature granulocytes/100 WBC (Bld) 1.0 % Normal [facility] Comment on above: Order Comment: Speci men Type: BLOOD SPECIMEN Ordering Facility: [facility] Address: [address] [place] [address] Performed By: #### 3 4528-0 #### [facility] CLIA [id number] [address] [place] Lymphocytes (Bld) [#/Vol] 0.52 10*3/uL Low 1.00-4.00 [facility] Comment on above: Order Comment: Speci men Type: BLOOD SPECIMEN Ordering Facility: [facility] Address: [facility] [place] [address] Performed By: #### 3 4528-0 #### [facility] CLIA [id number] [address] [place] Lymphocytes/100 WBC (Bld) 10.8 % Normal [facility] Comment on above: Order Comment: Speci men Type: BLOOD SPECIMEN Ordering Facility: [facility] Address: [address] [place] [address] Performed By: #### 3 4528-0 #### [facility] CLIA [id number] [address] MCH (RBC) [Entitic mass] 32.0 pg Normal 26.0-34.0 [facility] Comment on above: Order Comment: Speci men Type: BLOOD SPECIMEN Ordering Facility: [facility] Address: [facility] [place] [address] Performed By: #### 3 4528-0 #### [facility] CLIA [id number] [address] MCHC (RBC) [Mass/Vol] 32.3 g/dL Normal 30.5-36.0 [facility] Comment on above: Order Comment: Speci men Type: BLOOD SPECIMEN Ordering Facility: [facility] Address: [address] [place] [address] Performed By: #### 3 4528-0 #### [facility] CLIA [id number] [address] MCV (RBC) [Entitic vol] 98.8 fL Normal 80.0-100.0 [facility] Comment on above: Order Comment: Speci men Type: BLOOD SPECIMEN Ordering Facility: [facility] Address: [address] [place] [address] Performed By: #### 3 4528-0 #### [facility] CLIA [id number] [address] Monocytes (Bld) [#/Vol] 0.76 10*3/uL Normal <0.87 [facility] Comment on above: Order Comment: Speci men Type: BLOOD SPECIMEN Ordering Facility: [facility] Address: [address] [place] [address] Performed By: #### 3 4528-0 #### [facility] CLIA [id number] [address] Monocytes/100 WBC (Bld) 15.7 % Normal [facility] Comment on above: Order Comment: Speci men Type: BLOOD SPECIMEN Ordering Facility: [facility] Address: [address] [place] [address] Performed By: #### 3 4528-0 #### [facility] CLIA [id number] [address] [place] [address] [place] Neutrophils (Bld) [#/Vol] 3.42 10*3/uL Normal 1.45-7.50 [facility] Comment on above: Order Comment: Speci men Type: BLOOD SPECIMEN Ordering Facility: [facility] Address: [address] [place] [address] Performed By: #### 3 4528-0 #### [facility] CLIA [id number] [address] [place] Neutrophils/100 WBC (Bld) 70.9 % Normal [facility] Comment on above: Order Comment: Speci men Type: BLOOD SPECIMEN Ordering Facility: [facility] Address: [address] [place] [address] Performed By: #### 3 4528-0 #### [facility] CLIA [id number] [address] [place] [address] [place] Nucleated RBC (Bld) [#/Vol] 10*3/uL Normal <0.01 [facility] Comment on above: Order Comment: Speci men Type: BLOOD SPECIMEN Ordering Facility: [facility] Address: [address] [place] [address] Performed By: #### 3 4528-0 #### [facility] CLIA [id number] [address] [place] [address] [place] Nucleated RBC/100 WBC (Bld) [Ratio] 0.0 /100 WBC Normal [facility] Comment on above: Order Comment: Speci men Type: BLOOD SPECIMEN Ordering Facility: [facility] Address: [address] [place] [address] Performed By: #### 3 4528-0 #### [facility] CLIA [id number] [address] Platelet mean volume (Bld) [Entitic vol] 9.7 fL Normal 9.0-12.7 [facility] Comment on above: Order Comment: Speci men Type: BLOOD SPECIMEN Ordering Facility: [facility] Address: [address] [place] [address] Performed By: #### 3 4528-0 #### [facility] CLIA [id number] [address] [place] Platelets (Bld) [#/Vol] 158 10*3/uL Normal 150-400 [facility] Comment on above: Order Comment: Speci men Type: BLOOD SPECIMEN Ordering Facility: [facility] Address: [address] [place] [address] Performed By: #### 3 4528-0 #### [facility] CLIA [id number] [address] RBC (Bld) [#/Vol] 3.38 10*6/uL Low 3.90-5.20 [facility] [facility] Comment on above: Order Comment: Speci men Type: BLOOD SPECIMEN Ordering Facility: [facility] Address: [address] [place] [address] Performed By: #### 3 4528-0 #### [facility] CLIA [id number] [address] WBC (Bld) [#/Vol] 4.83 10*3/uL Normal 3.70-11.00 [facility] Comment on above: Order Comment: Speci men Type: BLOOD SPECIMEN Ordering Facility: [facility] Address: [address] [place] [address] Performed By: #### 3 4528-0 #### [facility] CLIA [id number] [address] NUTRITIONon 02-07-2025 NUTRITION HNO ID: [id number] Author: DIONICIO ALVAREZ DTR Service: Nutrition Therapy Author Type: Adjunct Instructor Of Women'S Studies Type: Nutrition Filed: 02/07/2025 13:40 Note Text: NUTRITION THERAPY RIBBON TIER NOTE SERVICE DATE: 02/07/2025 SERVICE TIME: Start [...] DATE: February 07, 2025 TIME: 1:36 PM [facility] PT EDon 02-07-2025 PT ED HNO ID: [id number] Author: DIONICIO ALVAREZ DTR Service: Nutrition Therapy Author Type: Adjunct Instructor Of Women'S Studies Type: Patient Education Filed: 02/07/2025 13:40 Note [...] Dionicio Alvarez DTR PATIENT NAME: Ana Maria Liebermanber DATE: February 07, 2025 TIME: 1:40 PM PAGER: Normal [facility] PT panel Coag (PPP)on 2024 INR Coag (PPP) [Relative time] 1.1 {INR} Normal 0.9-1.3 [facility] Comment on above: Order Comment: Claudia howell Type: BLOOD SPECIMEN Ordering Facility: [facility] Address: [address] [place], [place] [id number] Result Comment: [place] min K Antagonist (VKA) Therapeutic Range: INR 2 to 3 (Target INR of 2.5) Note: For patients treated with VKA drugs, such as warfarin, the [place] [employer] 2012 Guideline recommends [...] Chest 2012, 141:7S-47S Madelaine RA, et al. [facility] 2017, 70: 252-289 Performed By: #### 3 4528-0 #### [facility] CLIA [id number] [address] STATES OF [facility] PT Coag (PPP) [Time] 12.3 s Normal 9.7-13.0 [facility] Comment on above: Order Comment: Claudia howell Type: BLOOD SPECIMEN Ordering Facility: [facility] Address: [address] [place] [id number] Performed By: #### 3 4528-0 #### [facility] CLIA [id number] [address] STATES OF [facility] CBC W Auto Differential pane l (Bld)on 02-06-2025 Basophils (Bld) [#/Vol] 0.03 10*3/uL Normal <0.11 [facility] Comment on above: Order Comment: Speci men Type: BLOOD SPECIMEN Ordering Facility: [facility] Address: [address] [place] [address] Performed By: #### 3 4528-0 #### [facility] CLIA [id number] [address] Basophils/100 WBC (Bld) 0.6 % Normal [facility] Comment on above: Order Comment: Speci men Type: BLOOD SPECIMEN Ordering Facility: [facility] Address: [address] [place] [address] Performed By: #### 3 4528-0 #### [facility] CLIA [id number] [address] Differential cell count method Nom (Bld) Auto Normal [facility] Comment on above: Order Comment: Speci men Type: BLOOD SPECIMEN Ordering Facility: [facility] Address: [address] [place] [address] Performed By: #### 3 4528-0 #### [facility] CLIA [id number] [address] STATES OF [facility] Eosinophils (Bld) [#/Vol] 0.06 10*3/uL Normal <0.46 [facility] Comment on above: Order Comment: Speci men Type: BLOOD SPECIMEN Ordering Facility: [facility] Address: [address] [place] [address] Performed By: #### 3 4528-0 #### [facility] CLIA [id number] [address] Eosinophils/100 WBC (Bld) 1.1 % Normal [facility] Comment on above: Order Comment: Speci men Type: BLOOD SPECIMEN Ordering Facility: [facility] Address: [address] [place] [address] Performed By: #### 3 4528-0 #### [facility] CLIA [id number] [address] [place] Erythrocyte distribution width (RBC) [Ratio] 15.8 % High 11.5-15.0 [facility] Comment on above: Order Comment: Speci men Type: BLOOD SPECIMEN Ordering Facility: [facility] Address: [address] [place] [address] Performed By: #### 3 4528-0 #### [facility] CLIA [id number] [address] [place] Hematocrit (Bld) [Volume fraction] 32.5 % Low 36.0-46.0 [facility] Comment on above: Order Comment: Speci men Type: BLOOD SPECIMEN Ordering Facility: [facility] Address: [address] [place] [address] Performed By: #### 3 4528-0 #### [facility] CLIA [id number] [address] [place] Hemoglobin (Bld) [Mass/Vol] 10.5 g/dL Low 11.5-15.5 [facility] Comment on above: Order Comment: Speci men Type: BLOOD SPECIMEN Ordering Facility: [facility] Address: [address] [place] [address] Performed By: #### 3 4528-0 #### [facility] CLIA [id number] [address] [place] Immature granulocytes (Bld) [#/Vol] 0.03 10*3/uL Normal <0.10 [facility] Comment on above: Order Comment: Speci men Type: BLOOD SPECIMEN Ordering Facility: [facility] Address: [address] [place] [address] Performed By: #### 3 4528-0 #### [facility] CLIA [id number] [address] [place] Immature granulocytes/100 WBC (Bld) 0.6 % Normal [facility] Comment on above: Order Comment: Speci men Type: BLOOD SPECIMEN Ordering Facility: [facility] Address: [address] [place] [address] Performed By: #### 3 4528-0 #### [facility] CLIA [id number] [address] [place] Lymphocytes (Bld) [#/Vol] 0.82 10*3/uL Low 1.00-4.00 [facility] Comment on above: Order Comment: Speci men Type: BLOOD SPECIMEN Ordering Facility: [facility] Address: [address] [place] [address] Performed By: #### 3 4528-0 #### [facility] CLIA [id number] [address] Lymphocytes/100 WBC (Bld) 15.4 % Normal [facility] Comment on above: Order Comment: Speci men Type: BLOOD SPECIMEN Ordering Facility: [facility] Address: [address] [place] [address] Performed By: #### 3 4528-0 #### [facility] CLIA [id number] [address] MCH (RBC) [Entitic mass] 31.6 pg Normal 26.0-34.0 [facility] Comment on above: Order Comment: Speci men Type: BLOOD SPECIMEN Ordering Facility: [facility] Address: [address] [place] [address] Performed By: #### 3 4528-0 #### [facility] CLIA [id number] [address] MCHC (RBC) [Mass/Vol] 32.3 g/dL Normal 30.5-36.0 [facility] Comment on above: Order Comment: Speci men Type: BLOOD SPECIMEN Ordering Facility: [facility] Address: [address] [place] [address] Performed By: #### 3 4528-0 #### [facility] CLIA [id number] [address] [place] MCV (RBC) [Entitic vol] 97.9 fL Normal 80.0-100.0 [facility] Comment on above: Order Comment: Speci men Type: BLOOD SPECIMEN Ordering Facility: [facility] Address: [address] [place] [address] Performed By: #### 3 4528-0 #### [facility] CLIA [id number] [address] [place] Monocytes (Bld) [#/Vol] 0.92 10*3/uL High <0.87 [facility] Comment on above: Order Comment: Speci men Type: BLOOD SPECIMEN Ordering Facility: [facility] Address: [address] [place] [address] Performed By: #### 3 4528-0 #### [facility] CLIA [id number] [address] [place] Monocytes/100 WBC (Bld) 17.3 % Normal [facility] Comment on above: Order Comment: Speci men Type: BLOOD SPECIMEN Ordering Facility: [facility] Address: [facility] [place] [address] Performed By: #### 3 4528-0 #### [facility] CLIA [id number] [address] [place] Neutrophils (Bld) [#/Vol] 3.45 10*3/uL Normal 1.45-7.50 [facility] Comment on above: Order Comment: Speci men Type: BLOOD SPECIMEN Ordering Facility: [facility] Address: [address] [place] [address] Performed By: #### 3 4528-0 #### [facility] CLIA [id number] [address] Neutrophils/100 WBC (Bld) 65.0 % Normal [facility] Comment on above: Order Comment: Speci men Type: BLOOD SPECIMEN Ordering Facility: [facility] Address: [address] [place] [address] Performed By: #### 3 4528-0 #### [facility] CLIA [id number] [address] [place] Nucleated RBC (Bld) [#/Vol] 10*3/uL Normal <0.01 [facility] Comment on above: Order Comment: Speci men Type: BLOOD SPECIMEN Ordering Facility: [facility] Address: [address] [place] [address] Performed By: #### 3 4528-0 #### [facility] CLIA [id number] [address] [place] Nucleated RBC/100 WBC (Bld) [Ratio] 0.0 /100 WBC Normal [facility] Comment on above: Order Comment: Speci men Type: BLOOD SPECIMEN Ordering Facility: [facility] Address: [address] [place] [address] Performed By: #### 3 4528-0 #### [facility] CLIA [id number] [address] [place] Platelet mean volume (Bld) [Entitic vol] 8.9 fL Low 9.0-12.7 [facility] Comment on above: Order Comment: Speci men Type: BLOOD SPECIMEN Ordering Facility: [facility] Address: [address] [place] [address] Performed By: #### 3 4528-0 #### [facility] CLIA [id number] [address] [place] Platelets (Bld) [#/Vol] 141 10*3/uL Low 150-400 [facility] Comment on above: Order Comment: Speci men Type: BLOOD SPECIMEN Ordering Facility: [facility] Address: [address] [place] [address] Performed By: #### 3 4528-0 #### [facility] CLIA [id number] [address] [place] RBC (Bld) [#/Vol] 3.32 10*6/uL Low 3.90-5.20 [facility] Comment on above: Order Comment: Speci men Type: BLOOD SPECIMEN Ordering Facility: [facility] Address: [address] [place] [address] Performed By: #### 3 4528-0 #### [facility] CLIA [id number] [address] [place] WBC (Bld) [#/Vol] 5.31 10*3/uL Normal 3.70-11.00 [facility] Comment on above: Order Comment: Speci men Type: BLOOD SPECIMEN Ordering Facility: [facility] Address: [address], [place] [id number] Performed By: #### 3 4528-0 #### [facility] CLIA [id number] [address] [place] [place] [id number] [facility] CONSULTon 02-06-2025 CONSULT HNO ID: [id number] Author: KYLIE VILLATORO MD Service: Clinical Cardiology [...] pressure 15 mmHg Ms. Avalos presented to [place] for abdominal discomfort. She was found to [...] claims she has not felt well since November". She stated started having abdominal distention and [...] BREAST PERC VACUUM/ROTN 12/27/2009 CARDIOVERSION 03/03/2011 In [place] OPEN TX FEMORAL SUPRACONDYLAR FRACTURE W/XTN Left 08/29/2021 PAST SURGICAL HISTORY OF right ankle ORIF for triamalleolar fracture S $ KNEE TOTAL ARTHR PRASHANTH Left 05/07/2015 [facility] [place]. LTK replacement arthroplasty SIGMOIDOSCOPY FLX [...] Yes No Sig: Take one(1) tablet daily. Ndaly-1-NOL-EPA-Fish Oil (FISH OIL) 1,000 mg (120 mg-180 [...] (more content not included)... Normal [facility] ECG COMPLETEon 02-06-2025 ECG COMPLETE Ventricular Rate : 8 9 BPM QRS Duration : 88 ms Q-T Interval : 386 ms QTC Calculation(Bazett) : 469 ms Calculated R [place] : 96 degrees Calculated T [place] : 188 degrees ATRIAL FIBRILLATION RIGHTWARD AXIS ST & T WAVE ABNORMALITY, CONSIDER INFEROLATERAL ISCHEMIA ABNORMAL ECG WHEN COMPARED WITH ECG OF 30-Aug-2021 12:25, SIGNIFICANT CHANGES HAVE OCCURRED Confirmed by MD CASSIDY VINAY ([id number]) on 02/06/2025 5:38:40 PM NAME : ANA MARIA AVALOS PID : [id number] : 1935 Gender : Female Race : ORD : [id number] Procedure Date : Feb 06 2025 10:07:19 Edit Date : Feb 06 2025 17:38:42 Diagnosis: ATRIAL FIBRILLATION RIGHTWARD AXIS ST & T WAVE ABNORMALITY, CONSIDER INFEROLATERAL ISCHEMIA ABNORMAL ECG WHEN COMPARED WITH ECG OF 30-Aug-2021 12:25, SIGNIFICANT CHANGES HAVE OCCURRED Confirmed by MD CASSIDY VINAY ([id number]) on 02/06/2025 5:38:40 PM Test Reason : Arrhythmia Location : 200 : [facility] [address] Overread By : MD CASSIDY VINAY Edited By : MD CASSIDY VINAY Referred By : , Acquired by : JACK ROWE Normal [facility] PT panel Coag (PPP)on 2024 INR Coag (PPP) [Relative time] 1.3 {INR} Normal 0.9-1.3 [facility] Comment on above: Order Comment: Claudia howell Type: BLOOD SPECIMEN Ordering Facility: [facility] Address: [address] [place] [address] [place] [phone] Result Comment: [place] min K Antagonist (VKA) Therapeutic Range: INR 2 to 3 (Target INR of 2.5) Note: For patients treated with VKA drugs, such as warfarin, the [place] [employer] 2012 Guideline recommends [...] Chest 2012, 141:7S-47S Madelaine RA, et al. [facility] 2017, 70: 252-289 Performed By: #### 3 4528-0 #### [facility] CLIA [id number] 1 [place] [address] [place] PT Coag (PPP) [Time] 13.5 s High 9.7-13.0 [facility] Comment on above: Order Comment: Claudia howell Type: BLOOD SPECIMEN Ordering Facility: [facility] Address: [address] [place], [place] [address] [address] Performed By: #### 3 4528-0 #### [facility] CLIA [id number] 1 [place] [address] [place] THERAPY NTon 02-06-2025 THERAPY NT HNO ID: [id number] Author: ELLYN AUGUST OTR/L Service: Occupational Therapy Author Type: Occupational Therapist Type: Therapy (PT/OT/Speech/Resp) Filed: 02/06/2025 10:46 Note Text: Occupational Therapy Evaluation Summary SERVICE DATE: 02/06/2025 SERVICE TIME: 0916 to 1005 ROOM: [id number] OT 6 Clicks Score: 23 DISCHARGE RECOMMENDATIONS [...] Bed/Chair Alarm CURRENT HOSPITAL COURSE Presented to [place] ED with abd pain--found to have abd [...] Unsteadiness on feet TREATMENT INTERVENTIONS Evaluation, Self Mcfp Management (34848) Timed Code Treatment (minutes): 24 Skilled Treatment Time (minutes): 49 $ Evaluation - Low (95149) Billed Units: 1 unit Self Mcfp Management (77073) Treatment Minutes: 24 $ Self Mcfp Management (00614) Billed Units: 2 units TRAINING AND EDUCATION PROVIDED Energy Conservation, Transfer - Sit to Stand, Transfer - Toilet/Commode, Toileting , Standing Balance to Improve [place] with ADLs/Self-Care, Sitting Balance to Improve [place] with ADLs/Self-Care, Role of Occupational Therapy, Safety/Judgment, [...] (more content not included)... Normal [facility] Basic metabolic 2000 panelon 02-05-2025 Anion gap [Moles/Vol] 10 mmol/L Normal 8-15 [facility] Comment on above: Order Comment: Speci men Type: BLOOD SPECIMENOrdering Facility: [facility] Address: [address] [place], [place] [address] [phone] Performed By: #### 2 4321-2 ####[facility] [id number] [place] [address] [place] Calcium [Mass/Vol] 8.7 mg/dL Normal 8.5-10.2 [facility] Comment on above: Order Comment: Speci men Type: BLOOD SPECIMENOrdering Facility: [facility] Address: [address] [place] [address] Performed By: #### 2 4321-2 ####[facility] [id number] [place] [address] [place] Chloride [Moles/Vol] 100 mmol/L Normal 98-107 [facility] Comment on above: Order Comment: Speci men Type: BLOOD SPECIMENOrdering Facility: [facility] Address: [address] [place] [address] Performed By: #### 2 4321-2 ####[facility] [id number] [address] [place] CO2 [Moles/Vol] 24 mmol/L Normal 22-30 [facility] Comment on above: Order Comment: Speci men Type: BLOOD SPECIMENOrdering Facility: [facility] Address: [address] [place] [address] Performed By: #### 2 4321-2 ####[facility] [id number] [address] [place] Creatinine [Mass/Vol] 1.03 mg/dL High 0.58-0.96 [facility] Comment on above: Order Comment: Speci men Type: BLOOD SPECIMENOrdering Facility: [facility] Address: [address] [place] [address] Performed By: #### 2 4321-2 ####[facility] [id number] [address] Creatinine and Glomerular filtration rate.predicted panel (S/P/Bld) 52 mL/min/1.73m??? Low >=60 [facility] Comment on above: Order Comment: Speci men Type: BLOOD SPECIMENOrdering Facility: [facility] Address: [address] [place] [address] Result Comment: Kiki mated Glomerular Filtration Rate [...] actual GFR. Performed By: #### 2 4321-2 ####[facility] [id number] [place] [address] [place] Glucose [Mass/Vol] 122 mg/dL High 74-99 [facility] Comment on above: Order Comment: Claudia howell Type: BLOOD SPECIMENOrdering Facility: [facility] Address: [address] [place] [address] Result Comment: The [place] [employer] Association (ADA) provides guidance for cutoff [...] Standards of Medical Care in Diabetes 2016, [place] [employer]. Diabetes Care. 2016.39(Suppl 1). Performed By: #### 2 4321-2 ####[facility] [id number] [place] [address] [place] Potassium [Moles/Vol] 4.9 mmol/L Normal 3.7-5.1 [facility] Comment on above: Order Comment: Claudia howell Type: BLOOD SPECIMENOrdering Facility: [facility] Address: [address] [place] [address] Performed By: #### 2 4321-2 ####[facility] [id number] [address] Sodium [Moles/Vol] 134 mmol/L Low 136-144 [facility] Comment on above: Order Comment: Speci men Type: BLOOD SPECIMENOrdering Facility: [facility] Address: [address] [place] [address] Performed By: #### 2 4321-2 ####[facility] [id number] [address] STATES [facility] Urea nitrogen [Mass/Vol] 25 mg/dL High 7-21 [facility] Comment on above: Order Comment: Speci men Type: BLOOD SPECIMENOrdering Facility: [facility] Address: [address] [place] [address] Performed By: #### 2 4321-2 ####[facility] [id number] [address] CBC panel Auto (Bld)on 02-05 Erythrocyte distribution width (RBC) [Ratio] 15.7 % High 11.5-15.0 [facility] Comment on above: Order Comment: Speci men Type: BLOOD SPECIMEN Ordering Facility: [facility] Address: [address] [place] [address] Performed By: #### 3 4528-0 #### [facility] CLIA [id number] [address] Hematocrit (Bld) [Volume fraction] 37.2 % Normal 36.0-46.0 [facility] Comment on above: Order Comment: Speci men Type: BLOOD SPECIMEN Ordering Facility: [facility] Address: [address] [place] [address] Performed By: #### 3 4528-0 #### [facility] CLIA [id number] [address] [place] Hemoglobin (Bld) [Mass/Vol] 11.6 g/dL Normal 11.5-15.5 [facility] Comment on above: Order Comment: Speci men Type: BLOOD SPECIMEN Ordering Facility: [facility] Address: [address] [place] [address] Performed By: #### 3 4528-0 #### [facility] CLIA [id number] [address] MCH (RBC) [Entitic mass] 31.7 pg Normal 26.0-34.0 [facility] Comment on above: Order Comment: Speci men Type: BLOOD SPECIMEN Ordering Facility: [facility] Address: [address] [place] [address] Performed By: #### 3 4528-0 #### [facility] CLIA [id number] [address] MCHC (RBC) [Mass/Vol] 31.2 g/dL Normal 30.5-36.0 [facility] Comment on above: Order Comment: Speci men Type: BLOOD SPECIMEN Ordering Facility: [facility] Address: [address] [place] [address] Performed By: #### 3 4528-0 #### [facility] CLIA [id number] [address] MCV (RBC) [Entitic vol] 101.6 fL High 80.0-100.0 [facility] Comment on above: Order Comment: Speci men Type: BLOOD SPECIMEN Ordering Facility: [facility] Address: [address] [place] [address] Performed By: #### 3 4528-0 #### [facility] CLIA [id number] [address] Nucleated RBC (Bld) [#/Vol] 10*3/uL Normal <0.01 [facility] Comment on above: Order Comment: Speci men Type: BLOOD SPECIMEN Ordering Facility: [facility] Address: [address] [place] [address] Performed By: #### 3 4528-0 #### [facility] CLIA [id number] [address] [facility] Platelet mean volume (Bld) [Entitic vol] 9.2 fL Normal 9.0-12.7 [facility] Comment on above: Order Comment: Speci men Type: BLOOD SPECIMEN Ordering Facility: [facility] Address: [address] [place] [address] Performed By: #### 3 4528-0 #### [facility] CLIA [id number] [address] Platelets (Bld) [#/Vol] 168 10*3/uL Normal 150-400 [facility] Comment on above: Order Comment: Speci men Type: BLOOD SPECIMEN Ordering Facility: [facility] Address: [address] [place] [address] Performed By: #### 3 4528-0 #### [facility] CLIA [id number] [address] [place] RBC (Bld) [#/Vol] 3.66 10*6/uL Low 3.90-5.20 [facility] Comment on above: Order Comment: Speci men Type: BLOOD SPECIMEN Ordering Facility: [facility] Address: [address] [place] [address] Performed By: #### 3 4528-0 #### [facility] CLIA [id number] [address] WBC (Bld) [#/Vol] 5.27 10*3/uL Normal 3.70-11.00 [facility] Comment on above: Order Comment: Speci men Type: BLOOD SPECIMEN Ordering Facility: [facility] Address: [address] [place] [address] Performed By: #### 3 4528-0 #### [facility] CLIA [id number] [address] PT panel Coag (PPP)on 2024 INR Coag (PPP) [Relative time] 1.3 {INR} Normal 0.9-1.3 [facility] Comment on above: Order Comment: Speci men Type: BLOOD SPECIMEN Ordering Facility: [facility] Address: [address] [place] [address] Result Comment: [place] min K Antagonist (VKA) Therapeutic Range: INR 2 to 3 (Target INR of 2.5) Note: For patients treated with VKA drugs, such as warfarin, the [place] [employer] 2012 Guideline recommends [...] Chest 2012, 141:7S-47S Madelaine RA, et al. [facility] 2017, 70: 252-289 Performed By: #### 3 4528-0 #### [facility] CLIA [id number] [address] OF [facility] PT Coag (PPP) [Time] 14.2 s High 9.7-13.0 [facility] Comment on above: Order Comment: Specchilo howell Type: BLOOD SPECIMEN Ordering Facility: [facility] Address: [address] [place] [address] Performed By: #### 3 4528-0 #### [facility] CLIA [id number] [address] STATES OF [facility] CBC W Auto Differential pane l (Bld)on 02-04-2025 Basophils (Bld) [#/Vol] 0.04 10*3/uL Normal <0.11 [facility] Comment on above: Order Comment: Claudia howell Type: BLOOD SPECIMEN Ordering Facility: [facility] Address: [address] [id number] Performed By: #### 3 4528-0 #### [facility] CLIA [id number] [address] [place] [address] Basophils/100 WBC (Bld) 0.6 % Normal [facility] Comment on above: Order Comment: Speci men Type: BLOOD SPECIMEN Ordering Facility: [facility] Address: [address] [place] [address] Performed By: #### 3 4528-0 #### [facility] CLIA [id number] [address] Differential cell count method Nom (Bld) Auto Normal [facility] Comment on above: Order Comment: Speci men Type: BLOOD SPECIMEN Ordering Facility: [facility] Address: [facility] [place] [address] Performed By: #### 3 4528-0 #### [facility] CLIA [id number] [address] [place] Eosinophils (Bld) [#/Vol] 0.12 10*3/uL Normal <0.46 [facility] Comment on above: Order Comment: Speci men Type: BLOOD SPECIMEN Ordering Facility: [facility] Address: [address] [place] [address] Performed By: #### 3 4528-0 #### [facility] CLIA [id number] [address] Eosinophils/100 WBC (Bld) 1.9 % Normal [facility] Comment on above: Order Comment: Speci men Type: BLOOD SPECIMEN Ordering Facility: [facility] Address: [address] [place] [address] Performed By: #### 3 4528-0 #### [facility] CLIA [id number] [address] Erythrocyte distribution width (RBC) [Ratio] 14.9 % Normal 11.5-15.0 [facility] Comment on above: Order Comment: Speci men Type: BLOOD SPECIMEN Ordering Facility: [facility] Address: [address] [place] [address] Performed By: #### 3 4528-0 #### [facility] CLIA [id number] [address] [place] Hematocrit (Bld) [Volume fraction] 36.4 % Normal 36.0-46.0 [facility] Comment on above: Order Comment: Speci men Type: BLOOD SPECIMEN Ordering Facility: [facility] Address: [address] [place] [address] Performed By: #### 3 4528-0 #### [facility] CLIA [id number] [address] [place] Hemoglobin (Bld) [Mass/Vol] 11.4 g/dL Low 11.5-15.5 [facility] Comment on above: Order Comment: Speci men Type: BLOOD SPECIMEN Ordering Facility: [facility] Address: [facility] [place] [address] Performed By: #### 3 4528-0 #### [facility] CLIA [id number] [address] [place] Immature granulocytes (Bld) [#/Vol] 0.03 10*3/uL Normal <0.10 [facility] Comment on above: Order Comment: Speci men Type: BLOOD SPECIMEN Ordering Facility: [facility] Address: [address] [place] [address] Performed By: #### 3 4528-0 #### [facility] CLIA [id number] [address] OF [place] Immature granulocytes/100 WBC (Bld) 0.5 % Normal [facility] Comment on above: Order Comment: Speci men Type: BLOOD SPECIMEN Ordering Facility: [facility] Address: [address] [place] [address] Performed By: #### 3 4528-0 #### [facility] CLIA [id number] [address] [place] Lymphocytes (Bld) [#/Vol] 1.21 10*3/uL Normal 1.00-4.00 [facility] Comment on above: Order Comment: Speci men Type: BLOOD SPECIMEN Ordering Facility: [facility] Address: [address] [place] [address] Performed By: #### 3 4528-0 #### [facility] CLIA [id number] [address] [place] Lymphocytes/100 WBC (Bld) 18.7 % Normal [facility] Comment on above: Order Comment: Speci men Type: BLOOD SPECIMEN Ordering Facility: [facility] Address: [address] [place] [address] Performed By: #### 3 4528-0 #### [facility] CLIA [id number] [address] MCH (RBC) [Entitic mass] 31.5 pg Normal 26.0-34.0 [facility] Comment on above: Order Comment: Speci men Type: BLOOD SPECIMEN Ordering Facility: [facility] Address: [address] [place] [address] Performed By: #### 3 4528-0 #### [facility] CLIA [id number] [address] MCHC (RBC) [Mass/Vol] 31.3 g/dL Normal 30.5-36.0 [facility] Comment on above: Order Comment: Speci men Type: BLOOD SPECIMEN Ordering Facility: [facility] Address: [address] [place] [address] Performed By: #### 3 4528-0 #### [facility] CLIA [id number] [address] MCV (RBC) [Entitic vol] 100.6 fL High 80.0-100.0 [facility] Comment on above: Order Comment: Speci men Type: BLOOD SPECIMEN Ordering Facility: [facility] Address: [address] [place] [address] Performed By: #### 3 4528-0 #### [facility] CLIA [id number] [address] Monocytes (Bld) [#/Vol] 1.17 10*3/uL High <0.87 [facility] Comment on above: Order Comment: Speci men Type: BLOOD SPECIMEN Ordering Facility: [facility] Address: [address] [place] [address] Performed By: #### 3 4528-0 #### [facility] CLIA [id number] [address] [place] Monocytes/100 WBC (Bld) 18.1 % Normal [facility] Comment on above: Order Comment: Speci men Type: BLOOD SPECIMEN Ordering Facility: [facility] Address: [address] [place] [address] Performed By: #### 3 4528-0 #### [facility] CLIA [id number] [address] [place] [address] [place] Neutrophils (Bld) [#/Vol] 3.91 10*3/uL Normal 1.45-7.50 [facility] Comment on above: Order Comment: Speci men Type: BLOOD SPECIMEN Ordering Facility: [facility] Address: [address] [place] [address] Performed By: #### 3 4528-0 #### [facility] CLIA [id number] [address] [place] Neutrophils/100 WBC (Bld) 60.2 % Normal [facility] Comment on above: Order Comment: Speci men Type: BLOOD SPECIMEN Ordering Facility: [facility] Address: [address] [place] [address] Performed By: #### 3 4528-0 #### [facility] CLIA [id number] [address] [place] Nucleated RBC (Bld) [#/Vol] 10*3/uL Normal <0.01 [facility] Comment on above: Order Comment: Speci men Type: BLOOD SPECIMEN Ordering Facility: [facility] Address: [address] [place] [address] Performed By: #### 3 4528-0 #### [facility] CLIA [id number] [address] [place] Nucleated RBC/100 WBC (Bld) [Ratio] 0.0 /100 WBC Normal [facility] Comment on above: Order Comment: Speci men Type: BLOOD SPECIMEN Ordering Facility: [facility] Address: [address] [place] [address] Performed By: #### 3 4528-0 #### [facility] CLIA [id number] [address] [place] Platelet mean volume (Bld) [Entitic vol] 9.5 fL Normal 9.0-12.7 [facility] Comment on above: Order Comment: Speci men Type: BLOOD SPECIMEN Ordering Facility: [facility] Address: [address] [place] [address] Performed By: #### 3 4528-0 #### [facility] CLIA [id number] [address] [place] Platelets (Bld) [#/Vol] 152 10*3/uL Normal 150-400 [facility] Comment on above: Order Comment: Speci men Type: BLOOD SPECIMEN Ordering Facility: [facility] Address: [address] [place] [address] Performed By: #### 3 4528-0 #### [facility] CLIA [id number] [address] [place] RBC (Bld) [#/Vol] 3.62 10*6/uL Low 3.90-5.20 [facility] Comment on above: Order Comment: Speci men Type: BLOOD SPECIMEN Ordering Facility: [facility] Address: [address] [place] [address] Performed By: #### 3 4528-0 #### [facility] CLIA [id number] [address] [place] WBC (Bld) [#/Vol] 6.48 10*3/uL Normal 3.70-11.00 [facility] Comment on above: Order Comment: Speci men Type: BLOOD SPECIMEN Ordering Facility: [facility] Address: [address] [place] [address] Performed By: #### 3 4528-0 #### [facility] CLIA [id number] [address] [place] Basic metabolic 2000 panelon 02-03-2025 Anion gap [Moles/Vol] 9 mmol/L Normal 8-15 [facility] Comment on above: Order Comment: Speci men Type: BLOOD SPECIMENOrdering Facility: [facility] Address: [address] [place] [address] Performed By: #### 2 4321-2 ####[facility] [id number] [place] [address] [place] Calcium [Mass/Vol] 8.5 mg/dL Normal 8.5-10.2 [facility] Comment on above: Order Comment: Speci men Type: BLOOD SPECIMENOrdering Facility: [facility] Address: [address] [place] [address] Performed By: #### 2 4321-2 ####[facility] [id number] [address] [place] Chloride [Moles/Vol] 101 mmol/L Normal 98-107 [facility] Comment on above: Order Comment: Speci men Type: BLOOD SPECIMENOrdering Facility: [facility] Address: [address] [place] [address] Performed By: #### 2 4321-2 ####[facility] [id number] [place] [address] [place] CO2 [Moles/Vol] 21 mmol/L Low 22-30 [facility] Comment on above: Order Comment: Speci men Type: BLOOD SPECIMENOrdering Facility: [facility] Address: [address] [place] [address] Performed By: #### 2 4321-2 ####[facility] [id number] [address] [place] Creatinine [Mass/Vol] 1.26 mg/dL High 0.58-0.96 [facility] Comment on above: Order Comment: Speci men Type: BLOOD SPECIMENOrdering Facility: [facility] Address: [address] [place] [address] Performed By: #### 2 4321-2 ####[facility] [id number] [address] [place] Creatinine and Glomerular filtration rate.predicted panel (S/P/Bld) 41 mL/min/1.73m??? Low >=60 [facility] Comment on above: Order Comment: Claudia howell Type: BLOOD SPECIMENOrdering Facility: [facility] Address: [address] [place] [address] Result Comment: Kiki mated Glomerular Filtration Rate [...] actual GFR. Performed By: #### 2 4321-2 ####[facility] [id number] [place] [address] [place] Glucose [Mass/Vol] 122 mg/dL High 74-99 [facility] Comment on above: Order Comment: Claudia howell Type: BLOOD SPECIMENOrdering Facility: [facility] Address: [address] [place] [address] Result Comment: The [place] [employer] (ADA) provides guidance for cutoff [...] Standards of Medical Care in Diabetes 2016, [place] [employer]. Diabetes Care. 2016.39(Suppl 1). Performed By: #### 2 4321-2 ####[facility] [id number] [place] [address] [place] Potassium [Moles/Vol] 4.8 mmol/L Normal 3.7-5.1 [facility] Comment on above: Order Comment: Claudia howell Type: BLOOD SPECIMENOrdering Facility: [facility] Address: [address] [place] [address] Performed By: #### 2 4321-2 ####[facility] [id number] [place] [address] [place] Sodium [Moles/Vol] 131 mmol/L Low 136-144 [facility] Comment on above: Order Comment: Speci men Type: BLOOD SPECIMENOrdering Facility: [facility] Address: [address] [place] [address] Performed By: #### 2 4321-2 ####[facility] [id number] [place] [address] [place] Urea nitrogen [Mass/Vol] 34 mg/dL High 7-21 [facility] Comment on above: Order Comment: Speci men Type: BLOOD SPECIMENOrdering Facility: [facility] Address: [address] [place] [address] Performed By: #### 2 4321-2 ####[facility] [id number] [address] STATES [facility] Anion gap [Moles/Vol] 9 mmol/L Normal 8-15 [facility] Comment on above: Order Comment: Speci men Type: BLOOD SPECIMEN Ordering Facility: [facility] Address: [address] [place] [address] Performed By: #### 2 4321-2 #### [facility] CLIA [id number] [address] [place] Calcium [Mass/Vol] 9.0 mg/dL Normal 8.5-10.2 [facility] Comment on above: Order Comment: Speci men Type: BLOOD SPECIMEN Ordering Facility: [facility] Address: [address] [place] [address] Performed By: #### 2 4321-2 #### [facility] CLIA [id number] [address] [place] Chloride [Moles/Vol] 101 mmol/L Normal 98-107 [facility] Comment on above: Order Comment: Speci men Type: BLOOD SPECIMEN Ordering Facility: [facility] Address: [address] [place] [address] Performed By: #### 2 4321-2 #### [facility] CLIA [id number] [address] [place] CO2 [Moles/Vol] 22 mmol/L Normal 22-30 [facility] Comment on above: Order Comment: Speci men Type: BLOOD SPECIMEN Ordering Facility: [facility] Address: [address] [place] [address] Performed By: #### 2 4321-2 #### [facility] CLIA [id number] [address] [place] Creatinine [Mass/Vol] 1.26 mg/dL High 0.58-0.96 [facility] Comment on above: Order Comment: Speci men Type: BLOOD SPECIMEN Ordering Facility: [facility] Address: [address] [place] [address] Performed By: #### 2 4321-2 #### [facility] CLIA [id number] [address] Creatinine and Glomerular filtration rate.predicted panel (S/P/Bld) 41 mL/min/1.73m??? Low >=60 [facility] Comment on above: Order Comment: Speci men Type: BLOOD SPECIMEN Ordering Facility: [facility] Address: [address] [place] [address] Result Comment: Kiki mated Glomerular Filtration Rate [...] GFR. Performed By: #### 2 4321-2 #### [facility] CLIA [id number] [address] OF [facility] Glucose [Mass/Vol] 104 mg/dL High 74-99 [facility] Comment on above: Order Comment: Speci men Type: BLOOD SPECIMEN Ordering Facility: [facility] Address: [address] [id number] Result Comment: The [place] Diabetes Association (ADA) provides guidance for cutoff [...] Standards of Medical Care in Diabetes 2016, [place] [employer]. Diabetes Care. 2016.39(Suppl 1). Performed By: #### 2 4321-2 #### [facility] CLIA [id number] [address] [place] [address] [place] Potassium [Moles/Vol] 5.3 mmol/L High 3.7-5.1 [facility] Comment on above: Order Comment: Speci men Type: BLOOD SPECIMEN Ordering Facility: [facility] Address: [address] [place] [address] Performed By: #### 2 1-2 #### [facility] CLIA [id number] [address] [place] [address] [place] Sodium [Moles/Vol] 132 mmol/L Low 136-144 [facility] Comment on above: Order Comment: Speci men Type: BLOOD SPECIMEN Ordering Facility: [facility] Address: [address] [place] [address] Performed By: #### 2 4321-2 #### [facility] CLIA [id number] 1 [place] [address] [place] Urea nitrogen [Mass/Vol] 36 mg/dL High 7-21 [facility] Comment on above: Order Comment: Speci men Type: BLOOD SPECIMEN Ordering Facility: [facility] Address: [address] [place] [address] Performed By: #### 2 4321-2 #### [facility] CLIA [id number] [address] [place] CBC W Auto Differential pane l (Bld)on 02-03-2025 Basophils (Bld) [#/Vol] 0.05 10*3/uL Normal <0.11 [facility] Comment on above: Order Comment: Speci men Type: BLOOD SPECIMEN Ordering Facility: [facility] Address: [address] [place] [address] Performed By: #### 2 4321-2 #### [facility] CLIA [id number] [address] Basophils/100 WBC (Bld) 0.7 % Normal [facility] Comment on above: Order Comment: Speci men Type: BLOOD SPECIMEN Ordering Facility: [facility] Address: [address] [place] [address] Performed By: #### 2 4321-2 #### [facility] CLIA [id number] [address] Differential cell count method Nom (Bld) Auto Normal [facility] Comment on above: Order Comment: Speci men Type: BLOOD SPECIMEN Ordering Facility: [facility] Address: [address] [place] [address] Performed By: #### 2 4321-2 #### [facility] CLIA [id number] [address] [place] Eosinophils (Bld) [#/Vol] 0.10 10*3/uL Normal <0.46 [facility] Comment on above: Order Comment: Speci men Type: BLOOD SPECIMEN Ordering Facility: [facility] Address: [address] [place] [address] Performed By: #### 2 4321-2 #### [facility] CLIA [id number] [address] Eosinophils/100 WBC (Bld) 1.4 % Normal [facility] Comment on above: Order Comment: Speci men Type: BLOOD SPECIMEN Ordering Facility: [facility] Address: [facility] [place] [address] Performed By: #### 2 4321-2 #### [facility] CLIA [id number] [address] [place] Erythrocyte distribution width (RBC) [Ratio] 14.6 % Normal 11.5-15.0 [facility] Comment on above: Order Comment: Speci men Type: BLOOD SPECIMEN Ordering Facility: [facility] Address: [address] [place] [address] Performed By: #### 2 4321-2 #### [facility] CLIA [id number] [address] [place] Hematocrit (Bld) [Volume fraction] 36.0 % Normal 36.0-46.0 [facility] Comment on above: Order Comment: Speci men Type: BLOOD SPECIMEN Ordering Facility: [facility] Address: [address] [place] [address] Performed By: #### 2 4321-2 #### [facility] CLIA [id number] [address] [place] Hemoglobin (Bld) [Mass/Vol] 11.2 g/dL Low 11.5-15.5 [facility] Comment on above: Order Comment: Speci men Type: BLOOD SPECIMEN Ordering Facility: [facility] Address: [address] [place] [address] Performed By: #### 2 4321-2 #### [facility] CLIA [id number] [address] [place] Immature granulocytes (Bld) [#/Vol] 10*3/uL Normal <0.10 [facility] Comment on above: Order Comment: Speci men Type: BLOOD SPECIMEN Ordering Facility: [facility] Address: [address] [place] [address] Performed By: #### 2 4321-2 #### [facility] CLIA [id number] [address] Immature granulocytes/100 WBC (Bld) 0.3 % Normal [facility] Comment on above: Order Comment: Speci men Type: BLOOD SPECIMEN Ordering Facility: [facility] Address: [address] [place] [address] Performed By: #### 2 4321-2 #### [facility] CLIA [id number] [address] [place] Lymphocytes (Bld) [#/Vol] 1.25 10*3/uL Normal 1.00-4.00 [facility] Comment on above: Order Comment: Speci men Type: BLOOD SPECIMEN Ordering Facility: [facility] Address: [address] [place] [address] Performed By: #### 2 4321-2 #### [facility] CLIA [id number] [address] Lymphocytes/100 WBC (Bld) 17.7 % Normal [facility] Comment on above: Order Comment: Speci men Type: BLOOD SPECIMEN Ordering Facility: [facility] Address: [address] [place] [address] Performed By: #### 2 4321-2 #### [facility] CLIA [id number] [address] MCH (RBC) [Entitic mass] 31.4 pg Normal 26.0-34.0 [facility] Comment on above: Order Comment: Speci men Type: BLOOD SPECIMEN Ordering Facility: [facility] Address: [address] [place] [address] Performed By: #### 2 4321-2 #### [facility] CLIA [id number] [address] [place] MCHC (RBC) [Mass/Vol] 31.1 g/dL Normal 30.5-36.0 [facility] Comment on above: Order Comment: Speci men Type: BLOOD SPECIMEN Ordering Facility: [facility] Address: [address] [place] [address] Performed By: #### 2 4321-2 #### [facility] CLIA [id number] [address] [place] MCV (RBC) [Entitic vol] 100.8 fL High 80.0-100.0 [facility] Comment on above: Order Comment: Speci men Type: BLOOD SPECIMEN Ordering Facility: [facility] Address: [address] [place] [address] Performed By: #### 2 4321-2 #### [facility] CLIA [id number] [address] [place] Monocytes (Bld) [#/Vol] 1.50 10*3/uL High <0.87 [facility] Comment on above: Order Comment: Speci men Type: BLOOD SPECIMEN Ordering Facility: [facility] Address: [address] [place] [address] Performed By: #### 2 4321-2 #### [facility] CLIA [id number] [address] Monocytes/100 WBC (Bld) 21.2 % Normal [facility] Comment on above: Order Comment: Speci men Type: BLOOD SPECIMEN Ordering Facility: [facility] Address: [address] [place] [address] Performed By: #### 2 1-2 #### [facility] CLIA [id number] [address] [place] Neutrophils (Bld) [#/Vol] 4.14 10*3/uL Normal 1.45-7.50 [facility] Comment on above: Order Comment: Speci men Type: BLOOD SPECIMEN Ordering Facility: [facility] Address: [address] [place] [address] Performed By: #### 2 4321-2 #### [facility] CLIA [id number] [address] [place] Neutrophils/100 WBC (Bld) 58.7 % Normal [facility] Comment on above: Order Comment: Speci men Type: BLOOD SPECIMEN Ordering Facility: [facility] Address: [facility] [place] [address] Performed By: #### 2 1-2 #### [facility] CLIA [id number] [address] [place] Nucleated RBC (Bld) [#/Vol] 0.02 10*3/uL High <0.01 [facility] Comment on above: Order Comment: Speci men Type: BLOOD SPECIMEN Ordering Facility: [facility] Address: [address] [place] [address] Performed By: #### 2 4321-2 #### [facility] CLIA [id number] [address] [place] Nucleated RBC/100 WBC (Bld) [Ratio] 0.3 /100 WBC Normal [facility] Comment on above: Order Comment: Speci men Type: BLOOD SPECIMEN Ordering Facility: [facility] Address: [address] [place] [address] Performed By: #### 2 4321-2 #### [facility] CLIA [id number] [address] [place] Platelet mean volume (Bld) [Entitic vol] 9.7 fL Normal 9.0-12.7 [facility] Comment on above: Order Comment: Speci men Type: BLOOD SPECIMEN Ordering Facility: [facility] Address: [address] [place] [address] Performed By: #### 2 1-2 #### [facility] CLIA [id number] [address] [place] Platelets (Bld) [#/Vol] 140 10*3/uL Low 150-400 [facility] Comment on above: Order Comment: Speci men Type: BLOOD SPECIMEN Ordering Facility: [facility] Address: [address] [place] [address] Performed By: #### 2 1-2 #### [facility] CLIA [id number] [address] [place] [address] [place] RBC (Bld) [#/Vol] 3.57 10*6/uL Low 3.90-5.20 [facility] Comment on above: Order Comment: Speci men Type: BLOOD SPECIMEN Ordering Facility: [facility] Address: [address] [place] [address] Performed By: #### 2 1-2 #### [facility] CLIA [id number] 1 [place] [address] [place] WBC (Bld) [#/Vol] 7.06 10*3/uL Normal 3.70-11.00 [facility] Comment on above: Order Comment: Speci men Type: BLOOD SPECIMEN Ordering Facility: [facility] Address: [address] [place] [address] Performed By: #### 2 4321-2 #### [facility] CLIA [id number] 1 [place] [address] [place] Basic metabolic 2000 panelon 02-02-2025 Anion gap [Moles/Vol] 9 mmol/L Normal 8-15 [facility] Comment on above: Order Comment: Speci men Type: BLOOD SPECIMEN Ordering Facility: [facility] Address: [address] [place] [address] Performed By: #### 2 4321-2 #### [facility] CLIA [id number] 1 [place] [address] [place] Calcium [Mass/Vol] 8.0 mg/dL Low 8.5-10.2 [facility] Comment on above: Order Comment: Speci men Type: BLOOD SPECIMEN Ordering Facility: [facility] Address: [address] [place] [address] Performed By: #### 2 4321-2 #### [facility] CLIA [id number] 1 [place] [address] [place] Chloride [Moles/Vol] 102 mmol/L Normal 98-107 [facility] Comment on above: Order Comment: Speci men Type: BLOOD SPECIMEN Ordering Facility: [facility] Address: [address] [place] [address] Performed By: #### 2 4321-2 #### [facility] CLIA [id number] [address] [place] CO2 [Moles/Vol] 20 mmol/L Low 22-30 [facility] Comment on above: Order Comment: Speci men Type: BLOOD SPECIMEN Ordering Facility: [facility] Address: [address] [place] [address] Performed By: #### 2 4321-2 #### [facility] CLIA [id number] 1 [place] [address] [place] Creatinine [Mass/Vol] 1.29 mg/dL High 0.58-0.96 [facility] Comment on above: Order Comment: Speci men Type: BLOOD SPECIMEN Ordering Facility: [facility] Address: [address] [place] [address] Performed By: #### 2 4321-2 #### [facility] CLIA [id number] [address] Creatinine and Glomerular filtration rate.predicted panel (S/P/Bld) 40 mL/min/1.73m??? Low >=60 [facility] Comment on above: Order Comment: Speci men Type: BLOOD SPECIMEN Ordering Facility: [facility] Address: [address] [place] [address] Result Comment: Kiki mated Glomerular Filtration Rate [...] GFR. Performed By: #### 2 4321-2 #### [facility] CLIA [id number] [address] [place] [address] [place] Glucose [Mass/Vol] 106 mg/dL High 74-99 [facility] Comment on above: Order Comment: Speci men Type: BLOOD SPECIMEN Ordering Facility: [facility] Address: [address] [place] [address] Result Comment: The [place] [employer] (ADA) provides guidance for cutoff [...] Standards of Medical Care in Diabetes 2016, [place] [employer]. Diabetes Care. 2016.39(Suppl 1). Performed By: #### 2 4321-2 #### [facility] CLIA [id number] [address] STATES OF [facility] Potassium [Moles/Vol] 5.1 mmol/L Normal 3.7-5.1 [facility] Comment on above: Order Comment: Speci men Type: BLOOD SPECIMEN Ordering Facility: [facility] Address: [address] [place] [address] Performed By: #### 2 1-2 #### [facility] CLIA [id number] [address] Sodium [Moles/Vol] 131 mmol/L Low 136-144 [facility] Comment on above: Order Comment: Speci men Type: BLOOD SPECIMEN Ordering Facility: [facility] Address: [address] [place] [address] Performed By: #### 2 1-2 #### [facility] CLIA [id number] [address] Urea nitrogen [Mass/Vol] 36 mg/dL High 7-21 [facility] Comment on above: Order Comment: Speci men Type: BLOOD SPECIMEN Ordering Facility: [facility] Address: [address] [place] [address] Performed By: #### 2 1-2 #### [facility] CLIA [id number] [address] [place] CBC W Auto Differential pane l (Bld)on 02-02-2025 Basophils (Bld) [#/Vol] 0.03 10*3/uL Normal <0.11 [facility] Comment on above: Order Comment: Speci men Type: BLOOD SPECIMEN Ordering Facility: [facility] Address: [address] [place] [address] Performed By: #### 3 4528-0 #### [facility] CLIA [id number] [address] Basophils/100 WBC (Bld) 0.5 % Normal [facility] Comment on above: Order Comment: Speci men Type: BLOOD SPECIMEN Ordering Facility: [facility] Address: [address] [place] [address] Performed By: #### 3 4528-0 #### [facility] CLIA [id number] [address] Differential cell count method Nom (Bld) Auto Normal [facility] Comment on above: Order Comment: Speci men Type: BLOOD SPECIMEN Ordering Facility: [facility] Address: [address] [place] [address] Performed By: #### 3 4528-0 #### [facility] CLIA [id number] [address] [place] Eosinophils (Bld) [#/Vol] 0.18 10*3/uL Normal <0.46 [facility] Comment on above: Order Comment: Speci men Type: BLOOD SPECIMEN Ordering Facility: [facility] Address: [address] [place] [address] Performed By: #### 3 4528-0 #### [facility] CLIA [id number] [address] Eosinophils/100 WBC (Bld) 3.0 % Normal [facility] Comment on above: Order Comment: Speci men Type: BLOOD SPECIMEN Ordering Facility: [facility] Address: [address] [place] [address] Performed By: #### 3 4528-0 #### [facility] CLIA [id number] [address] Erythrocyte distribution width (RBC) [Ratio] 14.6 % Normal 11.5-15.0 [facility] Comment on above: Order Comment: Speci men Type: BLOOD SPECIMEN Ordering Facility: [facility] Address: [address] [place] [address] Performed By: #### 3 4528-0 #### [facility] CLIA [id number] [address] [place] Hematocrit (Bld) [Volume fraction] 30.9 % Low 36.0-46.0 [facility] Comment on above: Order Comment: Speci men Type: BLOOD SPECIMEN Ordering Facility: [facility] Address: [address] [place] [address] Performed By: #### 3 4528-0 #### [facility] CLIA [id number] [address] [place] Hemoglobin (Bld) [Mass/Vol] 10.2 g/dL Low 11.5-15.5 [facility] Comment on above: Order Comment: Speci men Type: BLOOD SPECIMEN Ordering Facility: [facility] Address: [address] [place] [address] Performed By: #### 3 4528-0 #### [facility] CLIA [id number] [address] [place] Immature granulocytes (Bld) [#/Vol] 0.03 10*3/uL Normal <0.10 [facility] Comment on above: Order Comment: Speci men Type: BLOOD SPECIMEN Ordering Facility: [facility] Address: [address] [place] [address] Performed By: #### 3 4528-0 #### [facility] CLIA [id number] [address] [place] Immature granulocytes/100 WBC (Bld) 0.5 % Normal [facility] Comment on above: Order Comment: Speci men Type: BLOOD SPECIMEN Ordering Facility: [facility] Address: [address] [place] [address] Performed By: #### 3 4528-0 #### [facility] CLIA [id number] [address] [place] Lymphocytes (Bld) [#/Vol] 0.74 10*3/uL Low 1.00-4.00 [facility] Comment on above: Order Comment: Speci men Type: BLOOD SPECIMEN Ordering Facility: [facility] Address: [address] [place] [address] Performed By: #### 3 4528-0 #### [facility] CLIA [id number] [address] Lymphocytes/100 WBC (Bld) 12.1 % Normal [facility] Comment on above: Order Comment: Speci men Type: BLOOD SPECIMEN Ordering Facility: [facility] Address: [address] [place] [address] Performed By: #### 3 4528-0 #### [facility] CLIA [id number] [address] MCH (RBC) [Entitic mass] 32.3 pg Normal 26.0-34.0 [facility] Comment on above: Order Comment: Speci men Type: BLOOD SPECIMEN Ordering Facility: [facility] Address: [address] [place] [address] Performed By: #### 3 4528-0 #### [facility] CLIA [id number] [address] MCHC (RBC) [Mass/Vol] 33.0 g/dL Normal 30.5-36.0 [facility] Comment on above: Order Comment: Speci men Type: BLOOD SPECIMEN Ordering Facility: [facility] Address: [address] [place] [address] Performed By: #### 3 4528-0 #### [facility] CLIA [id number] [address] MCV (RBC) [Entitic vol] 97.8 fL Normal 80.0-100.0 [facility] Comment on above: Order Comment: Speci men Type: BLOOD SPECIMEN Ordering Facility: [facility] Address: [address] [place] [address] Performed By: #### 3 4528-0 #### [facility] CLIA [id number] [address] Monocytes (Bld) [#/Vol] 1.46 10*3/uL High <0.87 [facility] Comment on above: Order Comment: Speci men Type: BLOOD SPECIMEN Ordering Facility: [facility] Address: [facility] [place] [address] Performed By: #### 3 4528-0 #### [facility] CLIA [id number] [address] Monocytes/100 WBC (Bld) 23.9 % Normal [facility] Comment on above: Order Comment: Speci men Type: BLOOD SPECIMEN Ordering Facility: [facility] Address: [address] [place] [address] Performed By: #### 3 4528-0 #### [facility] CLIA [id number] [address] Neutrophils (Bld) [#/Vol] 3.66 10*3/uL Normal 1.45-7.50 [facility] Comment on above: Order Comment: Speci men Type: BLOOD SPECIMEN Ordering Facility: [facility] Address: [address] [place] [address] Performed By: #### 3 4528-0 #### [facility] CLIA [id number] [address] Neutrophils/100 WBC (Bld) 60.0 % Normal [facility] Comment on above: Order Comment: Speci men Type: BLOOD SPECIMEN Ordering Facility: [facility] Address: [address] [place] [address] Performed By: #### 3 4528-0 #### [facility] CLIA [id number] [address] [place] Nucleated RBC (Bld) [#/Vol] 10*3/uL Normal <0.01 [facility] Comment on above: Order Comment: Speci men Type: BLOOD SPECIMEN Ordering Facility: [facility] Address: [address] [place] [address] Performed By: #### 3 4528-0 #### [facility] CLIA [id number] [address] [place] Nucleated RBC/100 WBC (Bld) [Ratio] 0.0 /100 WBC Normal [facility] Comment on above: Order Comment: Speci men Type: BLOOD SPECIMEN Ordering Facility: [facility] Address: [address] [place] [address] Performed By: #### 3 4528-0 #### [facility] CLIA [id number] [address] [place] Platelet mean volume (Bld) [Entitic vol] 9.7 fL Normal 9.0-12.7 [facility] Comment on above: Order Comment: Speci men Type: BLOOD SPECIMEN Ordering Facility: [facility] Address: [address] [place] [address] Performed By: #### 3 4528-0 #### [facility] CLIA [id number] [address] [place] Platelets (Bld) [#/Vol] 114 10*3/uL Low 150-400 [facility] Comment on above: Order Comment: Speci men Type: BLOOD SPECIMEN Ordering Facility: [facility] Address: [address] [place] [address] Performed By: #### 3 4528-0 #### [facility] CLIA [id number] [address] [place] RBC (Bld) [#/Vol] 3.16 10*6/uL Low 3.90-5.20 [facility] Comment on above: Order Comment: Speci men Type: BLOOD SPECIMEN Ordering Facility: [facility] Address: [address] [place] [address] Performed By: #### 3 4528-0 #### [facility] CLIA [id number] [address] [place] WBC (Bld) [#/Vol] 6.10 10*3/uL Normal 3.70-11.00 [facility] Comment on above: Order Comment: Speci men Type: BLOOD SPECIMEN Ordering Facility: [facility] Address: [address] [place] [address] Performed By: #### 3 4528-0 #### [facility] CLIA [id number] [address] PT panel Coag (PPP)on 2024 INR Coag (PPP) [Relative time] 1.8 {INR} High 0.9-1.3 [facility] Comment on above: Order Comment: Speci dante Type: BLOOD SPECIMEN Ordering Facility: [facility] Address: [address] [place] [address] Result Comment: [place] min K Antagonist (VKA) Therapeutic Range: INR 2 to 3 (Target INR of 2.5) Note: For patients treated with VKA drugs, such as warfarin, the [place] [employer] 2012 Guideline recommends [...] Chest 2012, 141:7S-47S Madelaine RA et al. [facility] 2017, 70: 252-289 Performed By: #### 3 4528-0 #### [facility] CLIA [id number] [address] PT Coag (PPP) [Time] 18.4 s High 9.7-13.0 [facility] Comment on above: Order Comment: Speci men Type: BLOOD SPECIMEN Ordering Facility: [facility] Address: [address] [place] [id number] Performed By: #### 3 4528-0 #### [facility] CLIA [id number] [address] [place] THERAPY NTon 02-02-2025 THERAPY NT HNO ID: [id number] Author: CHRISTEN QUICK, PT Service: Physical Therapy Author Type: Physical Therapist Type: Therapy (PT/OT/Speech/Resp) Filed: 02/02/2025 16:50 Note Text: Physical Therapy Evaluation Summary SERVICE DATE: 02/02/2025 SERVICE TIME: 1556 to 1625 ROOM: [id number] PT 6 Clicks Score: 18 DISCHARGE RECOMMENDATIONS Home Anticipated Discharge Needs: Physical Assist at Home Physical Assist at Home for: Shopping, Transportation ASSESSMENT Response to Therapy Interventions: Good Participation in Activities, Pain pt with abdominal pain but able to mobilize with min A PRECAUTIONS Bed/Chair Alarm CURRENT HOSPITAL COURSE presented to [place] with abd pain--found to have abd wall hematoma Relevant Past Medical History: osteoporosis, afib, HTN, CHF HOME LIVING Patient Lives With: Self/Alone Assistance Available: None (may be moving to [place] and live with dtr and son in [...] on feet TREATMENT INTERVENTIONS Evaluation, Therapeutic Activity (12405) Timed Code Treatment (minutes): 8 Skilled Treatment Time (minutes): 23 $ Evaluation-Moderate (41607) Billed Units: 1 unit Therapeutic Activity (22442) Treatment Minutes: 8 $ Therapeutic Activity (60907) Billed Units: 1 unit Cues for safe [...] Education, Functional Mobility Training SIGNATURE: Christen Quick, PT PATIENT NAME: Ana Maria Avalos DATE: February 02, 2025 TIME: 4:49 PM Normal [facility] Basic metabolic 2000 panelon 02-01-2025 Anion gap [Moles/Vol] 10 mmol/L Normal 8-15 [facility] Comment on above: Order Comment: Speci men Type: BLOOD SPECIMEN Ordering Facility: [facility] Address: [address] [place] [address] Performed By: #### 2 4321-2 #### [facility] CLIA [id number] [address] [place] [address] [place] Calcium [Mass/Vol] 8.6 mg/dL Normal 8.5-10.2 [facility] Comment on above: Order Comment: Speci men Type: BLOOD SPECIMEN Ordering Facility: [facility] Address: [address] [place] [address] Performed By: #### 2 4321-2 #### [facility] CLIA [id number] [address] [place] [address] [place] Chloride [Moles/Vol] 101 mmol/L Normal 98-107 [facility] Comment on above: Order Comment: Speci men Type: BLOOD SPECIMEN Ordering Facility: [facility] Address: [address] [place] [address] Performed By: #### 2 4321-2 #### [facility] CLIA [id number] [address] STATES OF [facility] CO2 [Moles/Vol] 20 mmol/L Low 22-30 [facility] Comment on above: Order Comment: Speci men Type: BLOOD SPECIMEN Ordering Facility: [facility] Address: [address] [place] [address] Performed By: #### 2 4321-2 #### [facility] CLIA [id number] [address] OF [facility] Creatinine [Mass/Vol] 1.39 mg/dL High 0.58-0.96 [facility] Comment on above: Order Comment: Speci men Type: BLOOD SPECIMEN Ordering Facility: [facility] Address: [address] [place] [address] Performed By: #### 2 4321-2 #### [facility] CLIA [id number] [address] Creatinine and Glomerular filtration rate.predicted panel (S/P/Bld) 37 mL/min/1.73m??? Low >=60 [facility] Comment on above: Order Comment: Speci men Type: BLOOD SPECIMEN Ordering Facility: [facility] Address: [address] [place] [address] Result Comment: Kiki mated Glomerular Filtration Rate [...] GFR. Performed By: #### 2 4321-2 #### [facility] CLIA [id number] [address] OF [facility] Glucose [Mass/Vol] 120 mg/dL High 74-99 [facility] Comment on above: Order Comment: Speci men Type: BLOOD SPECIMEN Ordering Facility: [facility] Address: [address] [place] [address] Result Comment: The [place] [employer] (ADA) provides guidance for cutoff [...] Standards of Medical Care in Diabetes 2016, [place] [employer]. Diabetes Care. 2016.39(Suppl 1). Performed By: #### 2 4321-2 #### [facility] CLIA [id number] [address] [place] [address] [place] Potassium [Moles/Vol] 4.6 mmol/L Normal 3.7-5.1 [facility] Comment on above: Order Comment: Speci men Type: BLOOD SPECIMEN Ordering Facility: [facility] Address: [address] [place] [address] Performed By: #### 2 4321-2 #### [facility] CLIA [id number] [address] [place] [address] [place] Sodium [Moles/Vol] 131 mmol/L Low 136-144 [facility] Comment on above: Order Comment: Speci men Type: BLOOD SPECIMEN Ordering Facility: [facility] Address: [address] [place] [address] Performed By: #### 2 4321-2 #### [facility] CLIA [id number] [address] [place] [address] [place] Urea nitrogen [Mass/Vol] 38 mg/dL High 7-21 [facility] Comment on above: Order Comment: Speci men Type: BLOOD SPECIMEN Ordering Facility: [facility] Address: [address] [place] [address] Performed By: #### 2 4321-2 #### [facility] CLIA [id number] [address] CBC panel Auto (Bld)on 02-01 Erythrocyte distribution width (RBC) [Ratio] 14.6 % Normal 11.5-15.0 [facility] Comment on above: Order Comment: Speci men Type: BLOOD SPECIMEN Ordering Facility: [facility] Address: [address] [place] [address] Performed By: #### 3 4528-0 #### [facility] CLIA [id number] [address] Hematocrit (Bld) [Volume fraction] 35.1 % Low 36.0-46.0 [facility] Comment on above: Order Comment: Speci men Type: BLOOD SPECIMEN Ordering Facility: [facility] Address: [address] [place] [address] Performed By: #### 3 4528-0 #### [facility] CLIA [id number] [address] Hemoglobin (Bld) [Mass/Vol] 11.2 g/dL Low 11.5-15.5 [facility] Comment on above: Order Comment: Speci men Type: BLOOD SPECIMEN Ordering Facility: [facility] Address: [address] [place] [address] Performed By: #### 3 4528-0 #### [facility] CLIA [id number] [address] MCH (RBC) [Entitic mass] 31.8 pg Normal 26.0-34.0 [facility] Comment on above: Order Comment: Speci men Type: BLOOD SPECIMEN Ordering Facility: [facility] Address: [address] [place] [address] Performed By: #### 3 4528-0 #### [facility] CLIA [id number] [address] [place] MCHC (RBC) [Mass/Vol] 31.9 g/dL Normal 30.5-36.0 [facility] Comment on above: Order Comment: Speci men Type: BLOOD SPECIMEN Ordering Facility: [facility] Address: [address] [place] [address] Performed By: #### 3 4528-0 #### [facility] CLIA [id number] [address] MCV (RBC) [Entitic vol] 99.7 fL Normal 80.0-100.0 [facility] Comment on above: Order Comment: Speci men Type: BLOOD SPECIMEN Ordering Facility: [facility] Address: [address] [place] [address] Performed By: #### 3 4528-0 #### [facility] CLIA [id number] [address] Nucleated RBC (Bld) [#/Vol] 0.02 10*3/uL High <0.01 [facility] Comment on above: Order Comment: Speci men Type: BLOOD SPECIMEN Ordering Facility: [facility] Address: [address] [place] [address] Performed By: #### 3 4528-0 #### [facility] CLIA [id number] [address] Platelet mean volume (Bld) [Entitic vol] 9.1 fL Normal 9.0-12.7 [facility] Comment on above: Order Comment: Speci men Type: BLOOD SPECIMEN Ordering Facility: [facility] Address: [address] [place] [address] Performed By: #### 3 4528-0 #### [facility] CLIA [id number] [address] Platelets (Bld) [#/Vol] 145 10*3/uL Low 150-400 [facility] Comment on above: Order Comment: Speci men Type: BLOOD SPECIMEN Ordering Facility: [facility] Address: [address] [place] [address] Performed By: #### 3 4528-0 #### [facility] CLIA [id number] [address] [place] RBC (Bld) [#/Vol] 3.52 10*6/uL Low 3.90-5.20 [facility] Comment on above: Order Comment: Claudia howell Type: BLOOD SPECIMEN Ordering Facility: [facility] Address: [address] [place] [address] Performed By: #### 3 4528-0 #### [facility] CLIA [id number] [address] WBC (Bld) [#/Vol] 6.74 10*3/uL Normal 3.70-11.00 [facility] Comment on above: Order Comment: Claudia howell Type: BLOOD SPECIMEN Ordering Facility: [facility] Address: [address] [place] [address] Performed By: #### 3 4528-0 #### [facility] CLIA [id number] [address] PT panel Coag (PPP)on 2024 INR Coag (PPP) [Relative time] 1.5 {INR} High 0.9-1.3 [facility] Comment on above: Order Comment: Claudia howell Type: BLOOD SPECIMEN Ordering Facility: [facility] Address: [address] [place] [address] Result Comment: [place] min K Antagonist (VKA) Therapeutic Range: INR 2 to 3 (Target INR of 2.5) Note: For patients treated with VKA drugs, such as warfarin, the [place] [employer] 2012 Guideline recommends [...] JACC 2017, 70: 252-289 Performed By: #### 2 4321-2 #### [facility] CLIA [id number] [address] OF [facility] PT Coag (PPP) [Time] 15.7 s High 9.7-13.0 [facility] Comment on above: Order Comment: Speci men Type: BLOOD SPECIMEN Ordering Facility: [facility] Address: [facility] [place] [address] Performed By: #### 2 4321-2 #### [facility] CLIA [id number] [address] CBC W Auto Differential pane l (Bld)on 01-31-2025 Basophils (Bld) [#/Vol] 0.04 10*3/uL Normal <0.11 [facility] Comment on above: Order Comment: Speci men Type: BLOOD SPECIMEN Ordering Facility: [facility] Address: [address] [place] [address] Performed By: #### 2 4321-2 #### [facility] CLIA [id number] [address] Basophils/100 WBC (Bld) 0.7 % Normal [facility] Comment on above: Order Comment: Speci men Type: BLOOD SPECIMEN Ordering Facility: [facility] Address: [address] [place] [address] Performed By: #### 2 4321-2 #### [facility] CLIA [id number] [address] Differential cell count method Nom (Bld) Auto Normal [facility] Comment on above: Order Comment: Speci men Type: BLOOD SPECIMEN Ordering Facility: [facility] Address: [address] [place] [address] Performed By: #### 2 4321-2 #### [facility] CLIA [id number] [address] OF [facility] Eosinophils (Bld) [#/Vol] 0.03 10*3/uL Normal <0.46 [facility] Comment on above: Order Comment: Speci men Type: BLOOD SPECIMEN Ordering Facility: [facility] Address: [address] [place] [address] Performed By: #### 2 4321-2 #### [facility] CLIA [id number] [address] Eosinophils/100 WBC (Bld) 0.5 % Normal [facility] Comment on above: Order Comment: Speci men Type: BLOOD SPECIMEN Ordering Facility: [facility] Address: [address] [place] [address] Performed By: #### 2 1-2 #### [facility] CLIA [id number] [address] Erythrocyte distribution width (RBC) [Ratio] 14.3 % Normal 11.5-15.0 [facility] Comment on above: Order Comment: Speci men Type: BLOOD SPECIMEN Ordering Facility: [facility] Address: [address] [place] [address] Performed By: #### 2 1-2 #### [facility] [facility] CLIA [id number] [address] Hematocrit (Bld) [Volume fraction] 40.0 % Normal 36.0-46.0 [facility] Comment on above: Order Comment: Speci men Type: BLOOD SPECIMEN Ordering Facility: [facility] Address: [address] [place] [address] Performed By: #### 2 1-2 #### [facility] CLIA [id number] [address] [place] Hemoglobin (Bld) [Mass/Vol] 12.5 g/dL Normal 11.5-15.5 [facility] Comment on above: Order Comment: Speci men Type: BLOOD SPECIMEN Ordering Facility: [facility] Address: [address] [place] [address] Performed By: #### 2 4321-2 #### [facility] [facility] CLIA [id number] [address] [place] [address] [place] Immature granulocytes (Bld) [#/Vol] 10*3/uL Normal <0.10 [facility] Comment on above: Order Comment: Speci men Type: BLOOD SPECIMEN Ordering Facility: [facility] Address: [facility] [place] [address] Performed By: #### 2 4321-2 #### [facility] CLIA [id number] [address] Immature granulocytes/100 WBC (Bld) 0.3 % Normal [facility] Comment on above: Order Comment: Speci men Type: BLOOD SPECIMEN Ordering Facility: [facility] Address: [address] [place] [address] Performed By: #### 2 1-2 #### [facility] CLIA [id number] [address] [place] Lymphocytes (Bld) [#/Vol] 0.98 10*3/uL Low 1.00-4.00 [facility] Comment on above: Order Comment: Speci men Type: BLOOD SPECIMEN Ordering Facility: [facility] Address: [address] [place] [address] Performed By: #### 2 4321-2 #### [facility] CLIA [id number] [address] Lymphocytes/100 WBC (Bld) 16.6 % Normal [facility] Comment on above: Order Comment: Speci men Type: BLOOD SPECIMEN Ordering Facility: [facility] Address: [address] [place] [address] Performed By: #### 2 1-2 #### [facility] CLIA [id number] [address] [place] MCH (RBC) [Entitic mass] 31.3 pg Normal 26.0-34.0 [facility] Comment on above: Order Comment: Speci men Type: BLOOD SPECIMEN Ordering Facility: [facility] Address: [address] [place] [address] Performed By: #### 2 4321-2 #### [facility] CLIA [id number] [address] OF [facility] MCHC (RBC) [Mass/Vol] 31.3 g/dL Normal 30.5-36.0 [facility] Comment on above: Order Comment: Speci men Type: BLOOD SPECIMEN Ordering Facility: [facility] Address: [address] [place] [address] Performed By: #### 2 4321-2 #### [facility] CLIA [id number] [address] OF [facility] MCV (RBC) [Entitic vol] 100.0 fL Normal 80.0-100.0 [facility] Comment on above: Order Comment: Speci men Type: BLOOD SPECIMEN Ordering Facility: [facility] Address: [address] [place] [address] Performed By: #### 2 4321-2 #### [facility] CLIA [id number] [address] Monocytes (Bld) [#/Vol] 0.94 10*3/uL High <0.87 [facility] Comment on above: Order Comment: Speci men Type: BLOOD SPECIMEN Ordering Facility: [facility] Address: [address] [place] [address] Performed By: #### 2 4321-2 #### [facility] CLIA [id number] [address] Monocytes/100 WBC (Bld) 15.9 % Normal [facility] Comment on above: Order Comment: Speci men Type: BLOOD SPECIMEN Ordering Facility: [facility] Address: [address] [place] [address] Performed By: #### 2 4321-2 #### [facility] CLIA [id number] [address] [place] Neutrophils (Bld) [#/Vol] 3.91 10*3/uL Normal 1.45-7.50 [facility] Comment on above: Order Comment: Speci men Type: BLOOD SPECIMEN Ordering Facility: [facility] Address: [address] [place] [address] Performed By: #### 2 4321-2 #### [facility] CLIA [id number] [address] Neutrophils/100 WBC (Bld) 66.0 % Normal [facility] Comment on above: Order Comment: Speci men Type: BLOOD SPECIMEN Ordering Facility: [facility] Address: [address] [place] [address] Performed By: #### 2 4321-2 #### [facility] CLIA [id number] [address] [place] Nucleated RBC (Bld) [#/Vol] 10*3/uL Normal <0.01 [facility] Comment on above: Order Comment: Speci men Type: BLOOD SPECIMEN Ordering Facility: [facility] Address: [address] [place] [address] Performed By: #### 2 4321-2 #### [facility] CLIA [id number] [address] Nucleated RBC/100 WBC (Bld) [Ratio] 0.0 /100 WBC Normal [facility] Comment on above: Order Comment: Speci men Type: BLOOD SPECIMEN Ordering Facility: [facility] Address: [address] [place] [address] Performed By: #### 2 4321-2 #### [facility] CLIA [id number] [address] Platelet mean volume (Bld) [Entitic vol] 9.5 fL Normal 9.0-12.7 [facility] Comment on above: Order Comment: Speci men Type: BLOOD SPECIMEN Ordering Facility: [facility] Address: [address] [place] [address] Performed By: #### 2 4321-2 #### [facility] CLIA [id number] [address] [place] Platelets (Bld) [#/Vol] 179 10*3/uL Normal 150-400 [facility] Comment on above: Order Comment: Speci men Type: BLOOD SPECIMEN Ordering Facility: [facility] Address: [address] [place], [place] [id number] Performed By: #### 2 4321-2 #### [facility] CLIA [id number] [address] OF [facility] RBC (Bld) [#/Vol] 4.00 10*6/uL Normal 3.90-5.20 [facility] Comment on above: Order Comment: Speci men Type: BLOOD SPECIMEN Ordering Facility: [facility] Address: [address] [place] [address] Performed By: #### 2 4321-2 #### [facility] CLIA [id number] [address] WBC (Bld) [#/Vol] 5.92 10*3/uL Normal 3.70-11.00 [facility] Comment on above: Order Comment: Speci men Type: BLOOD SPECIMEN Ordering Facility: [facility] Address: [address] [place] [address] Performed By: #### 2 4321-2 #### [facility] CLIA [id number] [address] CONSULTon 01-31-2025 CONSULT HNO ID: [id number] Author: SUSANA HAJI MD Service: General Surgery Author Type: Physician Type: Consults Filed: 01/31/2025 23:38 Note Text: HISTORY AND PHYSICAL EXAM: EGS SERVICE SERVICE DATE: 01/31/2025 SERVICE TIME: 2:49 AM Subjective CHIEF COMPLAINT: Rectus Sheath Hematoma HPI: 89 year old female with many co morbidities PMH Afib on coumadin, HLD, HTN, HLD, hypothyroidism, T2DM, CAD, CHF, Pulm HTN. She presents to [facility] with a couple days of Right [...] BREAST PERC VACUUM/ROTN 12/27/2009 CARDIOVERSION 03/03/2011 In [facility] [place] FEMORAL SUPRACONDYLAR FRACTURE W/XTN Left 08/29/2021 PAST SURGICAL HISTORY OF right ankle ORIF for triamalleolar fracture S $ KNEE TOTAL ARTHR PRASHANTH Left 05/07/2015 [facility] [place]. LTK replacement arthroplasty SIGMOIDOSCOPY FLX [...] (Src) 97.4 (Oral) Resp 16 Ht 5' 8" (1.73m) Wt 175 lb 6.4 oz (79.6kg) [...] CAD, CHF, Pulm HTN. She presents to [facility] with a couple days of Right [...] admission - if not previously reversed at [place], would recommend reversal of coumadin - If [...] (more content not included)... Normal [facility] Comprehensive metabolic 2000 panelon 01-31-2025 Albumin [Mass/Vol] 3.5 g/dL Low 3.9-4.9 [facility] Comment on above: Order Comment: Speci men Type: BLOOD SPECIMEN Ordering Facility: [facility] Address: [address] [facility] [address], [place] [address] Performed By: #### 2 4323-8 #### [facility] CLIA [id number] [address] ALP [Catalytic activity/Vol] 102 U/L Normal 34-123 [facility] Comment on above: Order Comment: Speci men Type: BLOOD SPECIMEN Ordering Facility: [facility] Address: [address] [place] [address] Performed By: #### 2 4323-8 #### [facility] CLIA [id number] [address] STATES OF [facility] ALT With P-5'-P [Catalytic activity/Vol] 34 U/L Normal 7-38 [facility] Comment on above: Order Comment: Speci men Type: BLOOD SPECIMEN Ordering Facility: [facility] Address: [address] [place] [address] Performed By: #### 2 4323-8 #### [facility] CLIA [id number] [address] Anion gap [Moles/Vol] 13 mmol/L Normal 8-15 [facility] Comment on above: Order Comment: Speci men Type: BLOOD SPECIMEN Ordering Facility: [facility] Address: [address] [place] [address] Performed By: #### 2 4323-8 #### [facility] CLIA [id number] [address] AST With P-5'-P [Catalytic activity/Vol] 48 U/L High 13-35 [facility] Comment on above: Order Comment: Speci men Type: BLOOD SPECIMEN Ordering Facility: [facility] Address: [address] [place] [address] Performed By: #### 2 4323-8 #### [facility] CLIA [id number] [address] [place] Bilirubin [Mass/Vol] 1.6 mg/dL High 0.2-1.3 [facility] Comment on above: Order Comment: Speci men Type: BLOOD SPECIMEN Ordering Facility: [facility] Address: [address] [place] [address] Performed By: #### 2 4323-8 #### [facility] CLIA [id number] [address] [place] Calcium [Mass/Vol] 8.7 mg/dL Normal 8.5-10.2 [facility] Comment on above: Order Comment: Speci men Type: BLOOD SPECIMEN Ordering Facility: [facility] Address: [address] [place] [address] Performed By: #### 2 4323-8 #### [place] [facility] CLIA [id number] [address] [place] Chloride [Moles/Vol] 102 mmol/L Normal 98-107 [facility] Comment on above: Order Comment: Speci men Type: BLOOD SPECIMEN Ordering Facility: [facility] Address: [address] [place] [address] Performed By: #### 2 4323-8 #### [facility] CLIA [id number] [address] [place] CO2 [Moles/Vol] 19 mmol/L Low 22-30 [facility] Comment on above: Order Comment: Speci men Type: BLOOD SPECIMEN Ordering Facility: [facility] Address: [address] [place] [address] Performed By: #### 2 4323-8 #### [facility] CLIA [id number] [address] [place] Creatinine [Mass/Vol] 1.49 mg/dL High 0.58-0.96 [facility] Comment on above: Order Comment: Speci men Type: BLOOD SPECIMEN Ordering Facility: [facility] Address: [address] [place] [address] Performed By: #### 2 4323-8 #### [facility] CLIA [id number] [address] [place] Creatinine and Glomerular filtration rate.predicted panel (S/P/Bld) 34 mL/min/1.73m??? Low >=60 [facility] Comment on above: Order Comment: Claudia howell Type: BLOOD SPECIMEN Ordering Facility: [facility] Address: [address] [place] [address] Result Comment: Kiki mated Glomerular Filtration Rate [...] GFR. Performed By: #### 2 4323-8 #### [facility] CLIA [id number] [address] [place] [address] [place] Glucose [Mass/Vol] 102 mg/dL High 74-99 [facility] Comment on above: Order Comment: Claudia howell Type: BLOOD SPECIMEN Ordering Facility: [facility] Address: [address] [place] [address] Result Comment: The [place] [employer] (ADA) provides guidance for cutoff [...] Standards of Medical Care in Diabetes 2016, [place] [employer]. Diabetes Care. 2016.39(Suppl 1). Performed By: #### 2 4323-8 #### [facility] CLIA [id number] [address] [place] [address] [place] Potassium [Moles/Vol] 4.9 mmol/L Normal 3.7-5.1 [facility] Comment on above: Order Comment: Claudia howell Type: BLOOD SPECIMEN Ordering Facility: [facility] Address: [address] [place] [address] Performed By: #### 2 4323-8 #### [facility] CLIA [id number] [address] [place] Protein [Mass/Vol] 5.6 g/dL Low 6.3-8.0 [facility] Comment on above: Order Comment: Speci men Type: BLOOD SPECIMEN Ordering Facility: [facility] Address: [address] [place] [address] Performed By: #### 2 4323-8 #### [facility] CLIA [id number] [address] Sodium [Moles/Vol] 134 mmol/L Low 136-144 [facility] Comment on above: Order Comment: Speci men Type: BLOOD SPECIMEN Ordering Facility: [facility] Address: [address] [place] [address] Performed By: #### 2 4323-8 #### [facility] CLIA [id number] [address] STATES [facility] Urea nitrogen [Mass/Vol] 36 mg/dL High 7-21 [facility] Comment on above: Order Comment: Speci men Type: BLOOD SPECIMEN Ordering Facility: [facility] Address: [address] [place] [address] Performed By: #### 2 4323-8 #### [facility] CLIA [id number] [address] OF [facility] ED NOTEon 01-31-2025 ED NOTE HNO ID: [id number] Author: NIA LOPEZ RN Service: Emergency Medicine Author Type: Registered Nurse Type: ED Notes Filed: 01/31/2025 03:20 Note Text: While administering medication pt requested pain medication. This nurse to notify physician. Normal [facility] ED NOTE HNO ID: [id number] Author: AYDEN ROSALES RN Service: ? Author Type: Registered Nurse Type: ED Notes Filed: 01/31/2025 01:19 Note Text: Bed: 12-ED Expected date: Expected time: Means of arrival: Comments: Vladimir transfer Normal [facility] ED PROV NOTEon 01-31-2025 ED PROV NOTE HNO ID: [id number] Author: STEVE RED MD Service: Emergency Medicine [...] with: Functional Transfers: Arrives via EMS from [place] D/T ABD wall hematoma. Pt denies falls and/or accidents. A/Ox4. + Coumadin. 89-year-old female presenting to the emergency department with abdominal wall hematoma reported from [facility]. Patient denies any trauma to [...] BREAST PERC VACUUM/ROTN 12/27/2009 CARDIOVERSION 03/03/2011 In [place] OPEN [place] FEMORAL SUPRACONDYLAR FRACTURE W/XTN Left 08/29/2021 PAST SURGICAL HISTORY OF right ankle ORIF for triamalleolar fracture S $ KNEE TOTAL ARTHR PRASHANTH Left 05/07/2015 [facility] [place]. LTK replacement arthroplasty SIGMOIDOSCOPY FLX [...] (175 lb 6.4 oz) 1.727 m (5' 8") Physical Exam Vitals and nursing note reviewed. [...] 0.98 (*) 1.00 - 4.00 k/uL Abs [place] 0.94 (*) <0.87 k/uL All other components within normal limits COMPREHENSIVE METABOLIC PANEL PROTHROMBIN TIME TYPE + SCREEN Procedures ED Course / Clinical Impression ED Course as of 01/31/25 0319 Steve Hickey's Documentation e Jan 31, 2025 (more content not included)... Normal [facility] ED PROV NOTE HNO ID: [id number] Author: STEVE RED MD Service: Emergency Medicine [...] abdominal trauma, falls or injuries. Transferred from [place] for surgical consult. for the last day or so. Denies any exacerbating or relieving factors. No trauma or injury to the abdomen. She had a mechanical fall in her garden over 8 weeks ago. Given 10 mg Vit K IV @ 2150 at outside hospital. PAST MEDICAL HISTORY Diagnosis Date Ankle fracture 10/23/2014 trimalleolar fracture right ankle (/ suregery) Arthritis Atrial fibrillation (HCC) INR goal [...] STEVE RED 01/31/25 0259 Normal [facility] HISTORY PHYSICALon HISTORY PHYSICAL HNO ID: [id number] Author: PAT SEARS APRN.CNP Service: Hospital Medicine Author Type: Nurse Practitioner Type: H&P Filed: 01/31/2025 08:56 Note Text: DEPARTMENT OF HOSPITAL MEDICINE HISTORY AND PHYSICAL EXAM SERVICE DATE: 01/31/2025 SERVICE TIME: 8:46 AM NIGHT AND WEEKEND COVERAGE: After 7pm call #[phone] Chief complaint: Transfer from [place] for rectus sheath hematoma HPI: This is an 89-year-old female with prior history of atrial fibrillation on warfarin, HFpEF, hypertension, hyperlipidemia and hypothyroidism. She initially went to [place] for abdominal pain and then transferred here [...] BREAST PERC VACUUM/ROTN 12/27/2009 CARDIOVERSION 03/03/2011 In [place] OPEN [place] FEMORAL SUPRACONDYLAR FRACTURE W/XTN Left 08/29/2021 PAST SURGICAL HISTORY OF right ankle ORIF for triamalleolar fracture S $ KNEE TOTAL ARTHR PRASHANTH Left 05/07/2015 [facility] [place]. LTK replacement arthroplasty SIGMOIDOSCOPY FLX [...] (U/L) Date Value 01/31/2025 34 URINLAYSIS Specific [place], Ur Date Value Ref Range Status 01/06/2017 [...] (Src) 97.4 (Oral) Resp 17 Ht 5' 8" (1.73m) Wt 175 lb 6.4 oz (79.6kg) SpO2 100% BMI 26.68 kg/(m2). O2 Therapy: Room Air GENERAL: Alert, no distress, cooperative LUNGS: Lungs clear to auscultation, Unlabored CARDIAC: S1S2, irregular (more content not included)... Normal [facility] Hgb Bld-ncon 01-31-2025 Hemoglobin (Bld) [Mass/Vol] 12.1 g/dL Normal 11.5-15.5 [facility] Comment on above: Order Comment: Claudia howell Type: BLOOD SPECIMEN Ordering Facility: [facility] Address: [address] [place] [address] Performed By: #### 3 4528-0 #### [facility] CLIA [id number] [address] STATES OF [facility] Hemoglobin (Bld) [Mass/Vol] 11.9 g/dL Normal 11.5-15.5 [facility] Comment on above: Order Comment: Claudia howell Type: BLOOD SPECIMEN Ordering Facility: [facility] Address: [address] [place] [address] Performed By: #### 7 18-7 #### [facility] CLIA [id number] [address] [place] Hemoglobin (Bld) [Mass/Vol] 11.8 g/dL Normal 11.5-15.5 [facility] Comment on above: Order Comment: Claudia howell Type: BLOOD SPECIMENOrdering Facility: [facility] Address: [address] [place] [address] Performed By: #### 7 18-7 ####[facility] [id number] [place] [address] [place] PT panel Coag (PPP)on 2024 INR Coag (PPP) [Relative time] 5.3 {INR} High 0.9-1.3 [facility] Comment on above: Order Comment: Claudia howell Type: BLOOD SPECIMEN Ordering Facility: [facility] Address: [address] [place] [address] Result Comment: [place] min K Antagonist (VKA) Therapeutic Range: INR 2 to 3 (Target INR of 2.5) Note: For patients treated with VKA drugs, such as warfarin, the [employer] 2012 Guideline recommends [...] Chest 2012, 141:7S-47S Madelaine RA, et al. [facility] 2017, 70: 252-289 Performed By: #### 3 4528-0 #### [facility] CLIA [id number] [address] [place] [address] [place] PT Coag (PPP) [Time] 51.0 s High 9.7-13.0 [facility] Comment on above: Order Comment: Speci men Type: BLOOD SPECIMEN Ordering Facility: [facility] Address: [address] [place] [address] Performed By: #### 3 4528-0 #### [facility] CLIA [id number] [address] [place] TYPE + SCREENon 01-31-2025 ABO O Normal [facility] Comment on above: Order Comment: Speci men Type: BLOOD SPECIMENOrdering Facility: [facility] Address: [address] [place] [address] Performed By: #### T SCR ####[facility] BLO[facility] BANKCLIA [id number] [address] [place] Rh Nom (Bld) Positive Normal [facility] Comment on above: Order Comment: Speci men Type: BLOOD SPECIMENOrdering Facility: [facility] Address: [address] [place] [address] Performed By: #### T SCR ####[facility] BLOOD BANKCLIA [id number] [place] [address] [facility] TYPE AND SCREEN EXPIRATION 02/03/2025 23:59 Normal [facility] Comment on above: Order Comment: Speci men Type: BLOOD SPECIMENOrdering Facility: [facility] Address: [address] [place] [id number] Performed By: #### T SCR ####[facility] BLOOD BANKCLIA [id number] [place] [address] [facility] 12 Lead EKGon 01-30-2025 12 Lead EKG Normal [facility] Abdomen/Pelvis W IV Cont ONL Yon 01-30-2025 Abdomen/Pelvis W IV Cont ONLY Normal [facility] Absolute lymphocyte countOrd ered By: Car Solomon on 01-30-2025 Lymphocytes Auto (Unsp spec) [#/Vol] 0.86 10*3/uL 0.83-4.51 [facility] Absolute lymphocyte countOrd ered By: Tammie Pillai on 01-30-2025 Lymphocytes Auto (Unsp spec) [#/Vol] 1.00 10*3/uL 0.83-4.51 [facility] Absolute neutrophil countOrd ered By: Car Solomon on 01-30-2025 Neutrophils (Bld) [#/Vol] 3.8 10*3/uL 2.0-7.7 [facility] Absolute neutrophil countOrd ered By: Tammie Pillai on 01-30-2025 Neutrophils (Bld) [#/Vol] 3.0 10*3/uL 2.0-7.7 [facility] Anion gap in Serum or Plasma Ordered By: Car Solomon on 01-30-2025 Anion gap [Moles/Vol] 13 mmol/L 12-15 [facility] Anion gap in Serum or Plasma Ordered By: Tammie Pillai on 01-30-2025 Anion gap [Moles/Vol] 12 mmol/L 12-15 [facility] Automated lymphocyte count a s percentage of total leukocytesOrdered By: Car Solomon on 01-30-2025 Lymphocytes/100 WBC Auto (Unsp spec) 15.0 % Low [facility] Automated lymphocyte count a s percentage of total leukocytesOrdered By: Tammie Pillai on 01-30-2025 Lymphocytes/100 WBC Auto (Unsp spec) 20.0 % [facility] BUN/creatinine ratioOrdered By: Car Solomon on 01-30-2025 Urea nitrogen/Creatinine [Mass ratio] 21.9 mg/mg High 05-22 [facility] BUN/creatinine ratioOrdered By: Tammie Pillai on 01-30-2025 Urea nitrogen/Creatinine [Mass ratio] 24.2 mg/mg High 05-22 [facility] Basic Metabolic Profile (BMP )on 01-30-2025 BUN/CRE 21.9 RATIO High 05-22 [facility] Comment on above: Performed By: #### L 501.4021, L100.0100, L500.2500 ####[facility] [address] [place], [address] Calcium [Mass/Vol] 9.0 mg/dL Normal 7.6-11.0 [facility] Comment on above: Performed By: #### L 501.4021, L100.0100, L500.2500 ####[facility] [address] [place], [address] Chloride [Moles/Vol] 99 mmol/L Normal 98-108 [facility] Comment on above: Performed By: #### L 501.4021, L100.0100, L500.2500 ####[facility] [address] [place], [address] CO2 [Moles/Vol] 20.6 mmol/L Low 21.0-32.0 [facility] Comment on above: Performed By: #### L 501.4021, L100.0100, L500.2500 ####[facility] [address] [place], [address] Creatinine [Mass/Vol] 1.70 mg/dL High 0.70-1.20 [facility] Comment on above: Performed By: #### L 501.4021, L100.0100, L500.2500 ####[facility] [address] [place], [address] ECRCL 23.07 ml/min Low 50-250 [facility] Comment on above: Performed By: #### L 501.4021, L100.0100, L500.2500 ####[facility] [address] [place], [address] GAP 13 Normal 5-15 [facility] Comment on above: Performed By: #### L 501.4021, L100.0100, L500.2500 ####[facility] [address] [place], [address] GFR/1.73 sq M.predicted among non-blacks MDRD (S/P/Bld) [Vol rate/Area] 29 mL/min/{1.73_m2} Low >60 [facility] Comment on above: Result Comment: mL/m in/1.73m2 CKD-EPI Creatinine Equation (2020) Performed By: #### L 501.4021, L100.0100, L500.2500 ####[facility] [address] [place], [address] Glucose [Mass/Vol] 136 mg/dL High 70-99 [facility] Comment on above: Performed By: #### L 501.4021, L100.0100, L500.2500 ####[facility] [address] [place], [address] Potassium [Moles/Vol] 4.9 mmol/L Normal 3.3-5.1 [facility] Comment on above: Result Comment: Hemo lysis present, Results??could be affected.?? Performed By: #### L 501.4021, L100.0100, L500.2500 ####[facility] [address] [place], [address] Sodium [Moles/Vol] 132 mmol/L Low 133-145 [facility] Comment on above: Performed By: #### L 501.4021, L100.0100, L500.2500 ####[facility] [address] [place], [address] Urea nitrogen [Mass/Vol] 37 mg/dL High 4-19 [facility] Comment on above: Performed By: #### L 501.4021, L100.0100, L500.2500 ####[facility] [address] [place], [address] BUN/CRE 24.2 RATIO High 10-20 [facility] Comment on above: Performed By: #### L 503.7505, L501.9520, L300.3900, L100.0100, L500.2500 ####[facility] [address] [place], [address] Calcium [Mass/Vol] 9.0 mg/dL Normal 7.6-11.0 [facility] Comment on above: Performed By: #### L 503.7505, L501.9520, L300.3900, L100.0100, L500.2500 ####[facility] [address], [address] Chloride [Moles/Vol] 99 mmol/L Normal 98-108 [facility] Comment on above: Performed By: #### L 503.7505, L501.9520, L300.3900, L100.0100, L500.2500 ####[facility] [address] [place], [address] CO2 [Moles/Vol] 21.0 mmol/L Normal 21.0-32.0 [facility] Comment on above: Performed By: #### L 503.7505, L501.9520, L300.3900, L100.0100, L500.2500 ####[facility] [address] [place], [address] Creatinine [Mass/Vol] 1.41 mg/dL High 0.70-1.20 [facility] Comment on above: Performed By: #### L 503.7505, L501.9520, L300.3900, L100.0100, L500.2500 ####[facility] [address] [place], [address] GAP 12 Normal 5-15 [facility] Comment on above: Performed By: #### L 503.7505, L501.9520, L300.3900, L100.0100, L500.2500 ####[facility] [address] [place], [address] GFR/1.73 sq M.predicted among non-blacks MDRD (S/P/Bld) [Vol rate/Area] 36 mL/min/{1.73_m2} Low >60 [facility] Comment on above: Result Comment: mL/m in/1.73m2 CKD-EPI Creatinine Equation (2020) Performed By: #### L 503.7505, L501.9520, L300.3900, L100.0100, L500.2500 ####[facility] [address] [place], [address] Glucose [Mass/Vol] 93 mg/dL Normal 70-99 [facility] Comment on above: Performed By: #### L 503.7505, L501.9520, L300.3900, L100.0100, L500.2500 ####[facility] [address] [place], [address] Potassium [Moles/Vol] 4.6 mmol/L Normal 3.3-5.1 [facility] Comment on above: Performed By: #### L 503.7505, L501.9520, L300.3900, L100.0100, L500.2500 ####[facility] [address] [place], [address] Sodium [Moles/Vol] 132 mmol/L Low 133-145 [facility] Comment on above: Performed By: #### L 503.7505, L501.9520, L300.3900, L100.0100, L500.2500 ####[facility] [address] [place], [address] Urea nitrogen [Mass/Vol] 34 mg/dL High 4-19 [facility] Comment on above: Performed By: #### L 503.7505, L501.9520, L300.3900, L100.0100, L500.2500 ####[facility] [address] [place], [address] Basophil percentageOrdered B y: Car Solomon on 01-30-2025 Basophils/100 WBC (Bld) 0.5 % 0-1 [facility] Basophil percentageOrdered B y: Tammie Pillai on 01-30-2025 Basophils/100 WBC (Bld) 1.0 % 0-1 [facility] Bilirubin Test strip Ql (U)O rdered By: Car Solomon on 01-30-2025 Bilirubin Ql (U) Negative Negative [facility] Bilirubin directOrdered By: aCr Solomon on 01-30-2025 Bilirubin.direct [Mass/Vol] 0.71 mg/dL High 0.00-0.30 [facility] Comment on above: Hemolysis present, R esults could be affected. Bilirubin, totalOrdered By: Car Solomon on 01-30-2025 Bilirubin [Mass/Vol] 1.67 mg/dL High 0.00-1.30 [facility] CBC W/Diff, Automatedon 01-03 Absolute Lymph 0.86 X10 3/uL Normal 0.83-4.51 [facility] Comment on above: Performed By: #### L 501.4021, L100.0100, L500.2500 ####[facility] [address] [place], [address] Absolute Neut 3.8 X10 3/uL Normal 2.0-7.7 [facility] Comment on above: Performed By: #### L 501.4021, L100.0100, L500.2500 ####[facility] [address] [place], [address] Basophils/100 WBC (Bld) 0.5 % Normal 0-1 [facility] Comment on above: Performed By: #### L 501.4021, L100.0100, L500.2500 ####[facility] [address] [place], [address] Eosinophils/100 WBC (Bld) 2.4 % Normal 0-5 [facility] Comment on above: Performed By: #### L 501.4021, L100.0100, L500.2500 ####[facility] [address] [place], [address] Erythrocyte distribution width (RBC) [Ratio] 14.5 % Normal 11.6-14.6 [facility] Comment on above: Performed By: #### L 501.4021, L100.0100, L500.2500 ####[facility] [address] [place], [address] Hematocrit (Bld) [Volume fraction] 41.4 % Normal 37-47 [facility] Comment on above: Performed By: #### L 501.4021, L100.0100, L500.2500 ####[facility] [address] [place], [address] Hemoglobin (Bld) [Mass/Vol] 13.5 g/dL Normal 12.0-15.0 [facility] Comment on above: Performed By: #### L 501.4021, L100.0100, L500.2500 ####[facility] [address] [place], [address] IG% 0.300 Normal 0.0-0.9 [facility] Comment on above: Result Comment: IG% - Immature Granulocytes (promyelocytes, myelocytes andmetamyelocytes) > 1% indicates that a LEFT SHIFT is Present. Performed By: #### L 501.4021, L100.0100, L500.2500 ####[facility] [address] [place], [address] Lymphocytes/100 WBC (Bld) 15.0 % Low 19-41 [facility] Comment on above: Performed By: #### L 501.4021, L100.0100, L500.2500 ####[facility] [address] [place], [address] MCH (RBC) [Entitic mass] 31.8 pg Normal 27.0-32.0 [facility] Comment on above: Performed By: #### L 501.4021, L100.0100, L500.2500 ####[facility] [address] [place], [address] MCHC (RBC) [Mass/Vol] 32.6 g/dL Normal 32-36 [facility] Comment on above: Performed By: #### L 501.4021, L100.0100, L500.2500 ####[facility] [address] [place], [address] MCV (RBC) [Entitic vol] 97.6 fL Normal 81-99 [facility] Comment on above: Performed By: #### L 501.4021, L100.0100, L500.2500 ####[facility] [address] [place], [address] Monocytes/100 WBC (Bld) 15.7 % High 0-10 [facility] Comment on above: Performed By: #### L 501.4021, L100.0100, L500.2500 ####[facility] [address] [place], [address] Neutrophils/100 WBC (Bld) 66.1 % Normal 47-70 [facility] Comment on above: Performed By: #### L 501.4021, L100.0100, L500.2500 ####[facility] [address] [place], [address] Nucleated RBC (Bld) [#/Vol] 0 10*3/uL Normal 0-5 [facility] Comment on above: Performed By: #### L 501.4021, L100.0100, L500.2500 ####[facility] [address] [place], [address] Platelet mean volume (Bld) [Entitic vol] 9.0 fL Normal 6.2-12.0 [facility] Comment on above: Performed By: #### L 501.4021, L100.0100, L500.2500 ####[facility] [address] [place], [address] Platelets (Bld) [#/Vol] 173 10*3/uL Normal 150-450 [facility] Comment on above: Performed By: #### L 501.4021, L100.0100, L500.2500 ####[facility] [address] [place], [address] RBC (Bld) [#/Vol] 4.24 10*6/uL Normal 4.2-5.4 [facility] Comment on above: Performed By: #### L 501.4021, L100.0100, L500.2500 ####[facility] [address] [place], [address] RDW SD 51.8 fl High 35.1-43.9 [facility] Comment on above: Performed By: #### L 501.4021, L100.0100, L500.2500 ####[facility] [address] [place], [address] WBC (Bld) [#/Vol] 5.7 10*3/uL Normal 4.4-11.0 [facility] Comment on above: Performed By: #### L 501.4021, L100.0100, L500.2500 ####[facility] [address] [place], [address] Absolute Lymph 1.00 X10 3/uL Normal 0.83-4.51 [facility] Comment on above: Performed By: #### L 503.7505, L501.9520, L300.3900, L100.0100, L500.2500 ####[facility] [address] [place], [address] Absolute Neut 3.0 X10 3/uL Normal 2.0-7.7 [facility] Comment on above: Performed By: #### L 503.7505, L501.9520, L300.3900, L100.0100, L500.2500 ####[facility] [address] [place], [address] Basophils/100 WBC (Bld) 1.0 % Normal 0-1 [facility] Comment on above: Performed By: #### L 503.7505, L501.9520, L300.3900, L100.0100, L500.2500 ####[facility] [address] [place], [address] Eosinophils/100 WBC (Bld) 1.8 % Normal 0-5 [facility] Comment on above: Performed By: #### L 503.7505, L501.9520, L300.3900, L100.0100, L500.2500 ####[facility] [address] [place], [address] Erythrocyte distribution width (RBC) [Ratio] 14.4 % Normal 11.6-14.6 [facility] Comment on above: Performed By: #### L 503.7505, L501.9520, L300.3900, L100.0100, L500.2500 ####[facility] [address] [place], [address] Hematocrit (Bld) [Volume fraction] 42.3 % Normal 37-47 [facility] Comment on above: Performed By: #### L 503.7505, L501.9520, L300.3900, L100.0100, L500.2500 ####[facility] [address] [place], [address] Hemoglobin (Bld) [Mass/Vol] 13.6 g/dL Normal 12.0-15.0 [facility] Comment on above: Performed By: #### L 503.7505, L501.9520, L300.3900, L100.0100, L500.2500 ####[facility] [address] [place], [address] IG% 0.400 Normal 0.0-0.9 [facility] Comment on above: Result Comment: IG% - Immature Granulocytes (promyelocytes, myelocytes andmetamyelocytes) > 1% indicates that a LEFT SHIFT is Present. Performed By: #### L 503.7505, L501.9520, L300.3900, L100.0100, L500.2500 ####[facility] [address] [place], [address] Lymphocytes/100 WBC (Bld) 20.0 % Normal 19-41 [facility] Comment on above: Performed By: #### L 503.7505, L501.9520, L300.3900, L100.0100, L500.2500 ####[facility] [address] [place], [address] MCH (RBC) [Entitic mass] 31.6 pg Normal 27.0-32.0 [facility] Comment on above: Performed By: #### L 503.7505, L501.9520, L300.3900, L100.0100, L500.2500 ####[facility] [address] [place], [address] MCHC (RBC) [Mass/Vol] 32.2 g/dL Normal 32-36 [facility] Comment on above: Performed By: #### L 503.7505, L501.9520, L300.3900, L100.0100, L500.2500 ####[facility] [address] [place], [address] MCV (RBC) [Entitic vol] 98.1 fL Normal 81-99 [facility] Comment on above: Performed By: #### L 503.7505, L501.9520, L300.3900, L100.0100, L500.2500 ####[facility] [address] [place], [address] Monocytes/100 WBC (Bld) 17.2 % High 0-10 [facility] Comment on above: Performed By: #### L 503.7505, L501.9520, L300.3900, L100.0100, L500.2500 ####[facility] [address] [place], [address] Neutrophils/100 WBC (Bld) 59.6 % Normal 47-70 [facility] Comment on above: Performed By: #### L 503.7505, L501.9520, L300.3900, L100.0100, L500.2500 ####[facility] [address] [place], [address] Nucleated RBC (Bld) [#/Vol] 0 10*3/uL Normal 0-5 [facility] Comment on above: Performed By: #### L 503.7505, L501.9520, L300.3900, L100.0100, L500.2500 ####[facility] [address] [place], [address] Platelet mean volume (Bld) [Entitic vol] 9.3 fL Normal 6.2-12.0 [facility] Comment on above: Performed By: #### L 503.7505, L501.9520, L300.3900, L100.0100, L500.2500 ####[facility] [address] [place], [address] Platelets (Bld) [#/Vol] 185 10*3/uL Normal 150-450 [facility] Comment on above: Performed By: #### L 503.7505, L501.9520, L300.3900, L100.0100, L500.2500 ####[facility] [address] [place], [address] RBC (Bld) [#/Vol] 4.31 10*6/uL Normal 4.2-5.4 [facility] Comment on above: Performed By: #### L 503.7505, L501.9520, L300.3900, L100.0100, L500.2500 ####[facility] [address] [place], [address] RDW SD 52.0 fl High 35.1-43.9 [facility] Comment on above: Performed By: #### L 503.7505, L501.9520, L300.3900, L100.0100, L500.2500 ####[facility] [address] [place], [address] WBC (Bld) [#/Vol] 5.0 10*3/uL Normal 4.4-11.0 [facility] Comment on above: Performed By: #### L 503.7505, L501.9520, L300.3900, L100.0100, L500.2500 ####[facility] [address] [place], [address] Carbon dioxide, total [Moles /volume] in Central venous bloodOrdered By: Car Solomon on 01-30-2025 CO2 [Moles/Vol] 20.6 mmol/L Low 21.0-32.0 [facility] Carbon dioxide, total [Moles /volume] in Central venous bloodOrdered By: Tammie Pillai on 01-30-2025 CO2 [Moles/Vol] 21.0 mmol/L 21.0-32.0 [facility] Chest PA and Lateralon 01-30 Chest PA and Lateral Normal [facility] Chloride assayOrdered By: Gregory Solomon on 01-30-2025 Chloride [Moles/Vol] 99 mmol/L 98-108 [facility] Chloride assayOrdered By: Omar Pillai on 01-30-2025 Chloride [Moles/Vol] 99 mmol/L 98-108 [facility] Emergency Department Summary on 01-30-2025 Emergency Department Summary Normal [facility] Eosinophil percentageOrdered By: Car Solomon on 01-30-2025 Eosinophils/100 WBC (Bld) 2.4 % 0-5 [facility] Eosinophil percentageOrdered By: Tammie Pillai on 01-30-2025 Eosinophils/100 WBC (Bld) 1.8 % 0-5 [facility] Erythrocyte distribution wid th ratioOrdered By: Car Solomon on 01-30-2025 Erythrocyte distribution width (RBC) [Ratio] 14.5 % 11.6-14.6 [facility] Erythrocyte distribution wid th ratioOrdered By: Tammie Pillai on 01-30-2025 Erythrocyte distribution width (RBC) [Ratio] 14.4 % 11.6-14.6 [facility] Erythrocyte distribution wid th standard deviationOrdered By: Car Solomon on 01-30-2025 Erythrocyte distribution width (RBC) [Ratio] 51.8 fl High 35.1-43.9 [facility] Erythrocyte distribution wid th standard deviationOrdered By: Tammie Pillai on 01-30-2025 Erythrocyte distribution width (RBC) [Ratio] 52.0 fl High 35.1-43.9 [facility] Glomerular filtration rate ( GFR) estimation/1.73 sq m using serum, plasma, or whole bOrdered By: Car Solomon on 01-30-2025 GFR/1.73 sq M.predicted among non-blacks MDRD (S/P/Bld) [Vol rate/Area] 29 mL/min/{1.73_m2} Low >60 [facility] Comment on above: mL/min/1.73m2 CKD-EP I Creatinine Equation (2020) Glomerular filtration rate ( GFR) estimation/1.73 sq m using serum, plasma, or whole bOrdered By: Tammie Pillai on 01-30-2025 GFR/1.73 sq M.predicted among non-blacks MDRD (S/P/Bld) [Vol rate/Area] 36 mL/min/{1.73_m2} Low >60 [facility] Comment on above: mL/min/1.73m2 CKD-EP I Creatinine Equation (2020) Hematocrit Auto (Bld) [Volum e fraction]Ordered By: Car Solomon on 01-30-2025 Hematocrit (Bld) [Volume fraction] 41.4 % 37-47 [facility] Hematocrit Auto (Bld) [Volum e fraction]Ordered By: Tammie Pillai on 01-30-2025 Hematocrit (Bld) [Volume fraction] 42.3 % 37-47 [facility] Hemoglobin measurementOrdere d By: Car Solomon on 01-30-2025 Hemoglobin (Bld) [Mass/Vol] 13.5 g/dL 12.0-15.0 [facility] Hemoglobin measurementOrdere d By: Tammie Pillai on 01-30-2025 Hemoglobin (Bld) [Mass/Vol] 13.6 g/dL 12.0-15.0 [facility] Immature granulocytes/100 WB C Auto (Bld)Ordered By: Car Solmoon on 01-30-2025 Immature granulocytes/100 WBC (Bld) 0.300 % 0.0-0.9 [facility] Comment on above: IG% - Immature Granu locytes (promyelocytes, myelocytes and metamyelocytes) > 1% indicates that a LEFT SHIFT is Present. Immature granulocytes/100 WB C Auto (Bld)Ordered By: Tammie Pillai on 01-30-2025 Immature granulocytes/100 WBC (Bld) 0.400 % 0.0-0.9 [facility] Comment on above: IG% - Immature Granu locytes (promyelocytes, myelocytes and metamyelocytes) > 1% indicates that a LEFT SHIFT is Present. International normalized rat io (INR) calculationOrdered By: Tammie Pillai on 01-30-2025 INR Coag (Bld) [Relative time] 6.7 {INR} High [facility] Comment on above: CRITICAL VALUE BRAVO D TO ANAY FRAUSTO ([facility])01/30/25 3856 Schuyler Dave.RESULTS READ BACK BY SAME. Ketones Test strip Ql (U)Ord ered By: Car Solomon on 01-30-2025 Ketones Ql (U) Negative Negative [facility] L499.0042on 01-30-2025 Trop T High Sen 51 ng/L High <=14 [facility] Comment on above: Result Comment: CRIT ICAL CALLED BY MICHAELA LAZCANO AT 2124 Performed By: #### L 499.0042 ####[facility] [address] [place], [address] L499.0043on 01-30-2025 Trop T High Sen Normal <=14 [facility] Comment on above: Result Comment: SANTI[facility]O E[facility] DISCHARGED Performed By: #### L 499.0043 ####[facility] [address] [place], [address] L501.4021on 01-30-2025 Trop T High Sen 56 ng/L Invalid Interpretation Code <=14 [facility] Comment on above: Result Comment: Crit ical Result(s) Called at: 2037 by: MICHAELA KING Results read back by same. Performed By: #### L 501.4021, L100.0100, L500.2500 ####[facility] [address] [place], [address] L503.7505on 01-30-2025 Natriuretic peptide B (Bld) [Mass/Vol] 1533 pg/mL Normal <=1800 [facility] Comment on above: Result Comment: Hear t Failure Unlikely: < 300 pg/mLHeart Failure Likely< 50 Years: > 450 pg/mL50-75 Years: > 900 pg/mL>75 Years: > 1800 pg/mL Performed By: #### L 503.7505, L501.9520, L300.3900, L100.0100, L500.2500 ####[facility] [address] [place], [address] Laboratory - Chemistry and C hemistry - challengeOrdered By: Car Solomon on 01-30-2025 AST [Catalytic activity/Vol] 62 U/L High <32 [facility] Comment on above: Hemolysis present, R esults could be affected. Lipaseon 01-30-2025 Lipase [Catalytic activity/Vol] 41 U/L Normal 13-75 [facility] Comment on above: Result Comment: Plea se note:LIPASE revised reference range effective 22.New Lipase methodology. Expected to produce lower valuesthan the previous assay method.NEW Reference Range: 13 - 75 U/L Performed By: #### L 501.2450, L500.3400 ####[facility] [address] [place], [address] Lipase measurementOrdered By : Car Solomon on 01-30-2025 Lipase [Catalytic activity/Vol] 41 U/L 13-75 [facility] Comment on above: Please note:LIPASE r evised reference range effective 22. New Lipase methodology. Expected to produce lower values than the previous assay method. NEW Reference Range: 13 - 75 U/L Liver Profileon 01-30-2025 Albumin [Mass/Vol] 3.8 g/dL Normal 3.4-4.8 [facility] Comment on above: Performed By: #### L 501.2450, L500.3400 ####[facility] [address] [place], [address] ALK PHOS 115 U/L High 35-104 [facility] Comment on above: Performed By: #### L 501.2450, L500.3400 ####[facility] [address] [place], [address] ALT [Catalytic activity/Vol] 42 U/L High <=34 [facility] Comment on above: Performed By: #### L 501.2450, L500.3400 ####[facility] [address] [place], [address] AST [Catalytic activity/Vol] 62 U/L High <=31 [facility] Comment on above: Result Comment: Hemo lysis present, Results??could be affected.?? Performed By: #### L 501.2450, L500.3400 ####[facility] [address] [place], [address] Bilirubin [Mass/Vol] 1.67 mg/dL High 0.00-1.30 [facility] Comment on above: Performed By: #### L 501.2450, L500.3400 ####[facility] [address] [place], [address] Bilirubin.direct [Mass/Vol] 0.71 mg/dL High 0.00-0.30 [facility] Comment on above: Result Comment: Hemo lysis present, Results??could be affected.?? Performed By: #### L 501.2450, L500.3400 ####[facility] [address] [place], [address] Globulin (S) [Mass/Vol] 2.3 g/dL Normal 2.2-4.2 [facility] Comment on above: Performed By: #### L 501.2450, L500.3400 ####[facility] [address] [place], [address] T PROT 6.1 g/dL Normal 5.9-8.4 [facility] Comment on above: Performed By: #### L 501.2450, L500.3400 ####[facility] [address] [place], [address] MCV (mean corpuscular volume ) determinationOrdered By: Car Solomon on 01-30-2025 MCV (RBC) [Entitic vol] 97.6 fL 81-99 [facility] MCV (mean corpuscular volume ) determinationOrdered By: Tammie Pillai on 01-30-2025 MCV (RBC) [Entitic vol] 98.1 fL 81-99 [facility] Mean corpuscular hemoglobin (MCH) determinationOrdered By: Car Solomon on 01-30-2025 MCH (RBC) [Entitic mass] 31.8 pg 27.0-32.0 [facility] Mean corpuscular hemoglobin (MCH) determinationOrdered By: Tammie Pillai on 01-30-2025 MCH (RBC) [Entitic mass] 31.6 pg 27.0-32.0 [facility] Mean corpuscular hemoglobin concentration (MCHC) determinationOrdered By: Car Solomon on 01-30-2025 MCHC (RBC) [Mass/Vol] 32.6 g/dL -36 [facility] Mean corpuscular hemoglobin concentration (MCHC) determinationOrdered By: Tammie Pillai on 01-30-2025 MCHC (RBC) [Mass/Vol] 32.2 g/dL 32-36 [facility] Mean platelet volume determi nationOrdered By: Car Solomon on 01-30-2025 Platelet mean volume (Bld) [Entitic vol] 9.0 fL 6.2-12.0 [facility] Mean platelet volume determi nationOrdered By: Tammie Pillai on 01-30-2025 Platelet mean volume (Bld) [Entitic vol] 9.3 fL 6.2-12.0 [facility] Microscopic analysis of urin e for red blood cells (RBC)Ordered By: Car Solomon on 01-30-2025 Microscopic analysis of urine for red blood cells (RBC) 0-5 SEEN /hpf 0-5 [facility] Monocyte percentageOrdered B y: Car Solomon on 01-30-2025 Monocytes/100 WBC (Bld) 15.7 % High 0-10 [facility] Monocyte percentageOrdered B y: Tammie Pillai on 01-30-2025 Monocytes/100 WBC (Bld) 17.2 % High 0-10 [facility] Mucus LM Ql (Urine sed)Order ed By: Car Solomon on 01-30-2025 Mucus Ql (Urine sed) 0 SEEN /hpf [facility] Natriuretic peptide.B prohor alejandro N-Terminal [Mass/volume] in Serum or PlasmaOrdered By: Tammie Pillai on 01-30-2025 Natriuretic peptide.B prohormone N-Terminal [Mass/Vol] 1533 pg/mL <1800 [facility] Comment on above: Heart Failure Unlike ly: < 300 pg/mLHeart Failure Likely< 50 Years: > 450 pg/mL50-75 Years: > 900 pg/mL>75 Years: > 1800 pg/mL Neutrophil percentageOrdered By: Car Solomon on 01-30-2025 Neutrophils/100 WBC (Bld) 66.1 % [facility] Neutrophil percentageOrdered By: Tammie Pillai on 01-30-2025 Neutrophils/100 WBC (Bld) 59.6 % [facility] Nitrite Test strip Ql (U)Ord ered By: Car Solomon on 01-30-2025 Nitrite Ql (U) Negative Negative [facility] No Panel InformationOrdered By: Car Solomon on 01-30-2025 62 U/L High <32 [facility] Nucleated red blood cell per centageOrdered By: Car Solomon on 01-30-2025 Nucleated RBC/100 WBC (Bld) [Ratio] 0 % 0-5 [facility] Nucleated red blood cell per centageOrdered By: Tammie Pillai on 01-30-2025 Nucleated RBC/100 WBC (Bld) [Ratio] 0 % 0-5 [facility] Platelet countOrdered By: Gregory Solomon on 01-30-2025 Platelets (Bld) [#/Vol] 173 10*3/uL 150-450 [facility] Platelet countOrdered By: Omar Pillai on 01-30-2025 Platelets (Bld) [#/Vol] 185 10*3/uL 150-450 [facility] Potassium measurement (mass/ volume)Ordered By: Car Solomon on 01-30-2025 Potassium (Unsp spec) [Mass/Vol] 4.9 mmol/L 3.3-5.1 [facility] Comment on above: Hemolysis present, R esults could be affected. Potassium measurement (mass/ volume)Ordered By: Tammie Pillai on 01-30-2025 Potassium (Unsp spec) [Mass/Vol] 4.6 mmol/L 3.3-5.1 [facility] Protein Test strip Ql (U)Ord ered By: Car Solomon on 01-30-2025 Protein Ql (U) 100 mg/dl High Negative [facility] Prothrombin Time w/INRon INR Coag (PPP) [Relative time] 6.7 {INR} Invalid Interpretation Code [facility] Comment on above: Result Comment: CRIT ICAL VALUE CALLED TO ANAY FRAUSTO ([facility])01/30/25 0153 Schuyler Dave.RESULTS READ BACK BY SAME. Performed By: #### L 503.7505, L501.9520, L300.3900, L100.0100, L500.2500 ####[facility] [address], [address] PT Coag (PPP) [Time] 59.8 s High 11.7-14.9 [facility] Comment on above: Performed By: #### L 503.7505, L501.9520, L300.3900, L100.0100, L500.2500 ####[facility] [address] [place], [address] Prothrombin timeOrdered By: Tammie Pillai on 01-30-2025 PT Coag (PPP) [Time] 59.8 s High 11.7-14.9 [facility] RBC Auto (Bld) [#/Vol]Ordere d By: Car Solomon on 01-30-2025 RBC (Bld) [#/Vol] 4.24 10*6/uL 4.2-5.4 [facility] RBC Auto (Bld) [#/Vol]Ordere d By: Tammie Pillai on 01-30-2025 RBC (Bld) [#/Vol] 4.31 10*6/uL 4.2-5.4 [facility] Serum creatinine measurement (mass/volume)Ordered By: Car Solomon on 01-30-2025 Creatinine [Mass/Vol] 1.70 mg/dL High 0.70-1.20 [facility] Serum creatinine measurement (mass/volume)Ordered By: Tammie Pillai on 01-30-2025 Creatinine [Mass/Vol] 1.41 mg/dL High 0.70-1.20 [facility] Serum globulin measurementOr dered By: Car Solomon on 01-30-2025 Globulin (S) [Mass/Vol] 2.3 g/dL 2.2-4.2 [facility] Serum glucose measurement (m ass/volume)Ordered By: Car Solomon on 01-30-2025 Glucose [Mass/Vol] 136 mg/dL High 70-99 [facility] Serum glucose measurement (m ass/volume)Ordered By: Tammie Pillai on 01-30-2025 Glucose [Mass/Vol] 93 mg/dL 70-99 [facility] Serum or plasma alanine henderson otransferase (ALT) measurementOrdered By: Car Solomon on 01-30-2025 ALT [Catalytic activity/Vol] 42 U/L High <35 [facility] Serum or plasma albumin caleb urement (mass/volume)Ordered By: Car Solomon on 01-30-2025 Albumin [Mass/Vol] 3.8 g/dL 3.4-4.8 [facility] Serum or plasma alkaline lexus sphatase measurementOrdered By: Car Solomon on 01-30-2025 ALP [Catalytic activity/Vol] 115 U/L High 35-104 [facility] Serum or plasma calcium caleb urement (mass/volume)Ordered By: Car Solomon on 01-30-2025 Calcium [Mass/Vol] 9.0 mg/dL 7.6-11.0 [facility] Serum or plasma calcium caleb urement (mass/volume)Ordered By: Tammie Pillai on 01-30-2025 Calcium [Mass/Vol] 9.0 mg/dL 7.6-11.0 [facility] Serum or plasma urea nitroge n measurement (mass/volume)Ordered By: Car Solomon on 01-30-2025 Urea nitrogen [Mass/Vol] 37 mg/dL High 4-19 [facility] Serum or plasma urea nitroge n measurement (mass/volume)Ordered By: Tammie Pillai on 01-30-2025 Urea nitrogen [Mass/Vol] 34 mg/dL High 4-19 [facility] Sodium levelOrdered By: Alondra Solomon on 01-30-2025 Sodium [Moles/Vol] 132 mmol/L Low 133-145 [facility] Sodium levelOrdered By: Ely Pillai on 01-30-2025 Sodium [Moles/Vol] 132 mmol/L Low 133-145 [facility] Squamous epithelial cells de tection in urine sediment by light microscopyOrdered By: Car Solomon on 01-30-2025 Epithelial cells.squamous LM Ql (Urine sed) 5-10 SEEN /hpf 5-10 [facility] TSH DL <= 0.005 mIU/L QnOrde red By: Tammie Pillai on 01-30-2025 TSH Qn 2.200 uIU/mL 0.300-4.200 [facility] Thyroid Stim Hormone (TSH)on 01-30-2025 TSH 2.200 uIU/mL Normal 0.300-4.200 [facility] Comment on above: Performed By: #### L 503.7505, L501.9520, L300.3900, L100.0100, L500.2500 ####[facility] [address] [place], [place], [id number] Total proteinOrdered By: Shivani Solomon on 01-30-2025 Protein [Mass/Vol] 6.1 g/dL 5.9-8.4 [facility] Transitional cells detection in urine sediment by light microscopyOrdered By: Car Solomon on 01-30-2025 Transitional cells LM Ql (Urine sed) 5-10 SEEN /hpf 0-5 [facility] Troponin T.cardiac [Mass/vol ume] in Serum or Plasma by High sensitivity methodOrdered By: Car Solomon on 01-30-2025 Troponin T.cardiac High sensitivity method [Mass/Vol] 51 ng/L High <14 [facility] Comment on above: CRITICAL CALLED BY Marlen LAZCANO AT 2124 Troponin T.cardiac High sensitivity method [Mass/Vol] 56 ng/L Critically high <14 [facility] Comment on above: Critical Result(s) C alled at: 2037 by: MICHAELA NGUYEN TO STEVO KING Results read back by same. Urinalysis, Completeon 01-30 EPI,TRANSITION 5-10 SEEN Normal 0-5 [facility] Comment on above: Order Comment: DAPHNEY CTOR TO SPECIFY Performed By: #### L 400.0001 ####[facility] [address] [place], [address] EPI,SQUAMOUS 5-10 SEEN Normal 5-10 [facility] Comment on above: Order Comment: DAPHNEY CTOR TO SPECIFY Performed By: #### L 400.0001 ####[facility] [address] [place], [address] RBC 0-5 SEEN Normal 0-5 [facility] Comment on above: Order Comment: DAPHNEY CTOR TO SPECIFY Performed By: #### L 400.0001 ####[facility] [address] [place], [address] WBC 25-50 SEEN Normal 0-5 [facility] Comment on above: Order Comment: DAPHNEY CTOR TO SPECIFY Performed By: #### L 400.0001 ####[facility] [address] [place], [address] BACTERIA 0 SEEN Normal None Seen [facility] Comment on above: Order Comment: DAPHNEY CTOR TO SPECIFY Performed By: #### L 400.0001 ####[facility] [address] [place], [address] Mucus Ql (Urine sed) 0 SEEN Normal [facility] Comment on above: Order Comment: DAPHNEY CTOR TO SPECIFY Performed By: #### L 400.0001 ####[facility] [address] [place], [address] Urine clarityOrdered By: Shivani Solomon on 01-30-2025 Clarity (U) Cloudy Clear [facility] Urine color determinationOrd ered By: Car Solomon on 01-30-2025 Color (U) Yellow Yellow [facility] Urine glucose detectionOrder ed By: Car Solomon on 01-30-2025 Glucose Ql (U) 1000 mg/dl High Normal [facility] Urine leukocyte esterase det ection by dipstickOrdered By: Car Solomon on 01-30-2025 Leukocyte esterase Test strip Ql (U) 100 /ul High Negative [facility] Urine pHOrdered By: Car raymundo on 01-30-2025 pH (U) 5.0 [pH] 5.0 - 8.0 [facility] Urine sediment bacteria coun t by microscopy (number/high power field)Ordered By: Car Solomon on 01-30-2025 Bacteria LM.HPF (Urine sed) [#/Area] 0 /[HPF] None Seen [facility] Urine specific gravity measu rementOrdered By: Car Solomon on 01-30-2025 Specific gravity (U) [Rel density] 1.015 1.002-1.030 [facility] Urine urobilinogen measureme ntOrdered By: Car Solomon on 01-30-2025 Urobilinogen Ql (U) Normal mg/dl Normal [facility] White blood cell (WBC) count Ordered By: Car Solomon on 01-30-2025 WBC (Bld) [#/Vol] 5.7 10*3/uL 4.4-11.0 [facility] White blood cell (WBC) count Ordered By: Tammie Pillai on 01-30-2025 WBC (Bld) [#/Vol] 5.0 10*3/uL 4.4-11.0 [facility] White blood cell countOrdere d By: Car Solomon on 01-30-2025 White blood cell count 25-50 SEEN /hpf 0-5 [facility] [facility] International normalized rat io (INR) calculationOrdered By: Eun Lloyd on 01-10-2025 INR Coag (Bld) [Relative time] 3.5 {INR} [facility] Prothrombin Time w/INRon INR Coag (PPP) [Relative time] 3.5 {INR} Normal [facility] Comment on above: Performed By: #### L 503.2999 ####[facility] [address] [place], [address] PT Coag (PPP) [Time] 35.5 s High 11.7-14.9 [facility] Comment on above: Performed By: #### L 300.9520 ####[facility] [address] [place], [place], [phone] Prothrombin timeOrdered By: Eun Lloyd on 01-10-2025 PT Coag (PPP) [Time] 35.5 s High 11.7-14.9 [facility] Cardiology Visit Reporton Cardiology Visit Report Normal [facility] Bilirubin directOrdered By: Eun Lloyd on 12-02-2024 Bilirubin.direct [Mass/Vol] 0.42 mg/dL High 0.00-0.30 [facility] Bilirubin, totalOrdered By: Eun Lloyd on 12-02-2024 Bilirubin [Mass/Vol] 0.83 mg/dL 0.00-1.30 [facility] Calculated very low density lipoprotein (VLDL) cholesterol measurementOrdered By: Eun Lloyd on 12-02-2024 Calculated very low density lipoprotein (VLDL) cholesterol measurement 16 mg/dL 5-40 [facility] International normalized rat io (INR) calculationOrdered By: Penny Richards on 12-02-2024 INR Coag (Bld) [Relative time] 2.5 {INR} [facility] LDL calc ser/plasOrdered By: Eun Lloyd on 12-02-2024 Cholesterol in LDL [Mass/Vol] 53 mg/dL [facility] Comment on above: Uzrrzxoznv=307-565 m g/dL & Higher Kycm=469 mg/dL or greater Laboratory - Chemistry and C hemistry - challengeOrdered By: Eun Lloyd on 12-02-2024 AST [Catalytic activity/Vol] 31 U/L <32 [facility] Lipid Profileon 12-02-2024 CHOL:HDL 2.15 Normal [facility] Comment on above: Performed By: #### L 500.3400, L500.4100 ####[facility] [address] [place], [place], [phone] Cholesterol [Mass/Vol] 128 mg/dL Normal <=200 [facility] Comment on above: Result Comment: Chol esterol level, Desirable <200 mg/dLBorderline high cholesterol 200-239 mg/dLHigh cholesterol >=240 mg/dLRecommendations of the NCEP Adult Treatment Panel for thefollowing risk-cutoff thresholds for the [place] Americanpulation. Performed By: #### L 500.3400, L500.4100 ####[facility] [address] [place], [address] Cholesterol in HDL [Mass/Vol] 59 mg/dL Normal [facility] [place] Comment on above: Result Comment: Sharita onal Cholesterol Education Program (NCEP) guidelines:<40 mg/dL: Low HDL-cholesterol (major risk factor for CHD)>= 60 mg/dL: High HDL-cholesterol (negative risk factor forCHD)HDL-cholesterol is affected by a number of factors, e.g.smoking, exercise, hormones, sex and age. Performed By: #### L 500.3400, L500.4100 ####[facility] [address] [place], [address] Cholesterol in LDL [Mass/Vol] 53 mg/dL Normal [facility] Comment on above: Result Comment: Bord gnxlqy=059-008 mg/dL Higher Glsw=899 mg/dL or greater Performed By: #### L 500.3400, L500.4100 ####[facility] [address] [place], [address] Cholesterol in VLDL [Mass/Vol] 16 mg/dL Normal 5-40 [facility] Comment on above: Performed By: #### L 500.3400, L500.4100 ####[facility] [address] [place], [address] Triglyceride [Mass/Vol] 79 mg/dL Normal [facility] Comment on above: Result Comment: The drugs N-Acetylcysteine and Metamizole may falselydepress this assay.Normal range: <150 mg/dLBorderline High: 150-199 mg/dLHigh: 200-499 mg/dLVery High: >500 mg/dL Performed By: #### L 500.3400, L500.4100 ####[facility] [address] [place], [address] Liver Profileon 12-02-2024 Albumin [Mass/Vol] 4.1 g/dL Normal 3.4-4.8 [facility] Comment on above: Performed By: #### L 500.3400, L500.4100 ####[facility] [address] [place], [address] ALK PHOS 94 U/L Normal 35-104 [facility] Comment on above: Performed By: #### L 500.3400, L500.4100 ####[facility] [address] [place], [address] ALT [Catalytic activity/Vol] 22 U/L Normal <=34 [facility] Comment on above: Performed By: #### L 500.3400, L500.4100 ####[facility] [address] [place], [address] AST [Catalytic activity/Vol] 31 U/L Normal <=31 [facility] Comment on above: Performed By: #### L 500.3400, L500.4100 ####[facility] [address] [place], [address] Bilirubin [Mass/Vol] 0.83 mg/dL Normal 0.00-1.30 [facility] Comment on above: Performed By: #### L 500.3400, L500.4100 ####[facility] [address] [place], [address] Bilirubin.direct [Mass/Vol] 0.42 mg/dL High 0.00-0.30 [facility] Comment on above: Performed By: #### L 500.3400, L500.4100 ####[facility] [address] [place], [address] Globulin (S) [Mass/Vol] 2.6 g/dL Normal 2.2-4.2 [facility] Comment on above: Performed By: #### L 500.3400, L500.4100 ####[facility] [address] [place], [address] T PROT 6.7 g/dL Normal 5.9-8.4 [facility] Comment on above: Performed By: #### L 500.3400, L500.4100 ####[facility] [address] [place], [place], [phone] No Panel InformationOrdered By: Eun Lloyd on 12-02-2024 31 U/L <32 [facility] Prothrombin Time w/INRon INR Coag (PPP) [Relative time] 2.5 {INR} Normal [facility] Comment on above: Order Comment: Comme nts: STANDING ORDER Performed By: #### L 300.3900 ####[facility] [address] [place], [address] PT Coag (PPP) [Time] 27.9 s High 11.7-14.9 [facility] Comment on above: Order Comment: Comme nts: STANDING ORDER Performed By: #### L 300.3900 ####[facility] [address] [place], [address] Prothrombin timeOrdered By: Penny Richards on 12-02-2024 PT Coag (PPP) [Time] 27.9 s High 11.7-14.9 [facility] Screening total cholesterol/ high density lipoprotein (HDL) cholesterol ratioOrdered By: Eun Lloyd on 12-02-2024 Cholesterol.total/Edyta sterol in HDL [Mass ratio] 2.15 {ratio} [facility] Serum globulin measurementOr dered By: Eun Lloyd on 12-02-2024 Globulin (S) [Mass/Vol] 2.6 g/dL 2.2-4.2 [facility] Serum or plasma alanine henderson otransferase (ALT) measurementOrdered By: Eun Lloyd on 12-02-2024 ALT [Catalytic activity/Vol] 22 U/L <35 [facility] Serum or plasma albumin caleb urement (mass/volume)Ordered By: Eun Lloyd on 12-02-2024 Albumin [Mass/Vol] 4.1 g/dL 3.4-4.8 [facility] Serum or plasma alkaline lexus sphatase measurementOrdered By: Eun Lloyd on 12-02-2024 ALP [Catalytic activity/Vol] 94 U/L 35-104 [facility] Serum or plasma cholesterol in HDL measurement (mass/volume)Ordered By: Eun Lloyd on 12-02-2024 Cholesterol in HDL [Mass/Vol] 59 mg/dL >40 [facility] Comment on above: National Cholesterol Education Program (NCEP) guidelines:<40 mg/dL: Low HDL-cholesterol (major risk factor for CHD)>= 60 mg/dL: High HDL-cholesterol (negative risk factor for CHD)HDL-cholesterol is affected by a number of factors, e.g. smoking, exercise, hormones, sex and age. Serum or plasma cholesterol measurement (mass/volume)Ordered By: Eun Lloyd on 12-02-2024 Cholesterol [Mass/Vol] 128 mg/dL <201 [facility] Comment on above: Cholesterol level, D esirable <200 mg/dLBorderline high cholesterol 200-239 mg/dLHigh cholesterol >=240 mg/dLRecommendations of the NCEP Adult Treatment Panel for the following risk-cutoff thresholds for the [place] population. Total proteinOrdered By: Osvaldo Lloyd on 12-02-2024 Protein [Mass/Vol] 6.7 g/dL 5.9-8.4 [facility] Triglycerides measurementOrd ered By: Eun Lloyd on 12-02-2024 Triglyceride [Mass/Vol] 79 mg/dL <199 [facility] Comment on above: The drugs N-Acetylcy steine and Metamizole may falsely depress this assay. Normal range: <150 mg/dLBorderline High: 150-199 mg/dLHigh: 200-499 mg/dLVery High: >500 mg/dL Bilirubin directOrdered By: Eun Lloyd on 11-02-2024 Bilirubin.direct [Mass/Vol] 0.51 mg/dL High 0.00-0.30 [facility] Bilirubin, totalOrdered By: Eun Lloyd on 11-02-2024 Bilirubin [Mass/Vol] 1.04 mg/dL 0.00-1.30 [facility] Calculated very low density lipoprotein (VLDL) cholesterol measurementOrdered By: Eun Lloyd on 11-02-2024 Calculated very low density lipoprotein (VLDL) cholesterol measurement 12 mg/dL 5-40 [facility] International normalized rat io (INR) calculationOrdered By: Eun Lloyd on 11-02-2024 INR Coag (Bld) [Relative time] 2.6 {INR} [facility] LDL calc ser/plasOrdered By: Eun Lloyd on 11-02-2024 Cholesterol in LDL [Mass/Vol] 61 mg/dL [facility] Comment on above: Gehmvpaxpt=987-941 m g/dL & Higher Nqte=841 mg/dL or greater Laboratory - Chemistry and C hemistry - challengeOrdered By: Eun Lloyd on 11-02-2024 AST [Catalytic activity/Vol] 31 U/L <32 [facility] Lipid Profileon 11-02-2024 CHOL:HDL 2.08 Normal [facility] Comment on above: Performed By: #### L 300.3900, L500.4100, L500.3400 ####[facility] [address] [place], [place], [phone] Cholesterol [Mass/Vol] 140 mg/dL Normal <=200 [facility] Comment on above: Result Comment: Chol esterol level, Desirable <200 mg/dLBorderline high cholesterol 200-239 mg/dLHigh cholesterol >=240 mg/dLRecommendations of the NCEP Adult Treatment Panel for thefollowing risk-cutoff thresholds for the [place] Americanpulation. Performed By: #### L 300.3900, L500.4100, L500.3400 ####[facility] [address] [place], [address] Cholesterol in HDL [Mass/Vol] 67 mg/dL Normal [facility] Comment on above: Result Comment: Sharita onal Cholesterol Education Program (NCEP) guidelines:<40 mg/dL: Low HDL-cholesterol (major risk factor for CHD)>= 60 mg/dL: High HDL-cholesterol (negative risk factor forCHD)HDL-cholesterol is affected by a number of factors, e.g.smoking, exercise, hormones, sex and age. Performed By: #### L 300.3900, L500.4100, L500.3400 ####[facility] [address] [place], [address] Cholesterol in LDL [Mass/Vol] 61 mg/dL Normal [facility] Comment on above: Result Comment: Bord yhzylo=212-314 mg/dL Higher Orju=196 mg/dL or greater Performed By: #### L 300.3900, L500.4100, L500.3400 ####[facility] [address] [place], [address] Cholesterol in VLDL [Mass/Vol] 12 mg/dL Normal 5-40 [facility] Comment on above: Performed By: #### L 300.3900, L500.4100, L500.3400 ####[facility] [address] [place], [address] Triglyceride [Mass/Vol] 61 mg/dL Normal [facility] Comment on above: Result Comment: The drugs N-Acetylcysteine and Metamizole may falselydepress this assay.Normal range: <150 mg/dLBorderline High: 150-199 mg/dLHigh: 200-499 mg/dLVery High: >500 mg/dL Performed By: #### L 300.3900, L500.4100, L500.3400 ####[facility] [address] [place], [address] Liver Profileon 11-02-2024 Albumin [Mass/Vol] 4.2 g/dL Normal 3.4-4.8 [facility] Comment on above: Performed By: #### L 300.3900, L500.4100, L500.3400 ####[facility] [address] [place], [address] ALK PHOS 95 U/L Normal 35-104 [facility] Comment on above: Performed By: #### L 300.3900, L500.4100, L500.3400 ####[facility] [address] [place], [address] ALT [Catalytic activity/Vol] 23 U/L Normal <=34 [facility] Comment on above: Performed By: #### L 300.3900, L500.4100, L500.3400 ####[facility] [address] [place], [address] AST [Catalytic activity/Vol] 31 U/L Normal <=31 [facility] Comment on above: Performed By: #### L 300.3900, L500.4100, L500.3400 ####[facility] [address] [place], [address] Bilirubin [Mass/Vol] 1.04 mg/dL Normal 0.00-1.30 [facility] Comment on above: Performed By: #### L 300.3900, L500.4100, L500.3400 ####[facility] [address] [place], [address] Bilirubin.direct [Mass/Vol] 0.51 mg/dL High 0.00-0.30 [facility] Comment on above: Performed By: #### L 300.3900, L500.4100, L500.3400 ####[facility] [address] [place], [address] Globulin (S) [Mass/Vol] 2.8 g/dL Normal 2.2-4.2 [facility] Comment on above: Performed By: #### L 300.3900, L500.4100, L500.3400 ####[facility] [address] [place], [address] T PROT 6.9 g/dL Normal 5.9-8.4 [facility] Comment on above: Performed By: #### L 300.3900, L500.4100, L500.3400 ####[facility] [address] [place], [address] No Panel InformationOrdered By: Eun Lloyd on 11-02-2024 31 U/L <32 [facility] Prothrombin Time w/INRon INR Coag (PPP) [Relative time] 2.6 {INR} Normal [facility] Comment on above: Performed By: #### L 300.3900, L500.4100, L500.3400 ####[facility] [address] [place], [address] PT Coag (PPP) [Time] 28.6 s High 11.7-14.9 [facility] Comment on above: Performed By: #### L 300.3900, L500.4100, L500.3400 ####[facility] [address] [place], [address] Prothrombin timeOrdered By: Eun Lloyd on 11-02-2024 PT Coag (PPP) [Time] 28.6 s High 11.7-14.9 [facility] Screening total cholesterol/ high density lipoprotein (HDL) cholesterol ratioOrdered By: Eun Lloyd on 11-02-2024 Cholesterol.total/Edyta sterol in HDL [Mass ratio] 2.08 {ratio} [facility] Serum globulin measurementOr dered By: Eun Lloyd on 11-02-2024 Globulin (S) [Mass/Vol] 2.8 g/dL 2.2-4.2 [facility] Serum or plasma alanine henderson otransferase (ALT) measurementOrdered By: Eun Lloyd on 11-02-2024 ALT [Catalytic activity/Vol] 23 U/L <35 [facility] Serum or plasma albumin caleb urement (mass/volume)Ordered By: Eun Lloyd on 11-02-2024 Albumin [Mass/Vol] 4.2 g/dL 3.4-4.8 [facility] Serum or plasma alkaline lexus sphatase measurementOrdered By: Eun Lloyd on 11-02-2024 ALP [Catalytic activity/Vol] 95 U/L 35-104 [facility] Serum or plasma cholesterol in HDL measurement (mass/volume)Ordered By: Eun Lloyd on 11-02-2024 Cholesterol in HDL [Mass/Vol] 67 mg/dL >40 [facility] Comment on above: National Cholesterol Education Program (NCEP) guidelines:<40 mg/dL: Low HDL-cholesterol (major risk factor for CHD)>= 60 mg/dL: High HDL-cholesterol (negative risk factor for CHD)HDL-cholesterol is affected by a number of factors, e.g. smoking, exercise, hormones, sex and age. Serum or plasma cholesterol measurement (mass/volume)Ordered By: Eun Lloyd on 11-02-2024 Cholesterol [Mass/Vol] 140 mg/dL <201 [facility] Comment on above: Cholesterol level, D esirable <200 mg/dLBorderline high cholesterol 200-239 mg/dLHigh cholesterol >=240 mg/dLRecommendations of the NCEP Adult Treatment Panel for the following risk-cutoff thresholds for the [place] population. Total proteinOrdered By: Osvaldo Lloyd on 11-02-2024 Protein [Mass/Vol] 6.9 g/dL 5.9-8.4 [facility] Triglycerides measurementOrd ered By: Eun Lloyd on 11-02-2024 Triglyceride [Mass/Vol] 61 mg/dL <199 [facility] Comment on above: The drugs N-Acetylcy steine and Metamizole may falsely depress this assay. Normal range: <150 mg/dLBorderline High: 150-199 mg/dLHigh: 200-499 mg/dLVery High: >500 mg/dL Cardiology Visit Reporton Cardiology Visit Report Normal [facility] CRPon 10-06-2024 C-REACTIVE PROT 3.29 mg/L High 0.0-3.0 [facility] Comment on above: Performed By: #### L 501.6710 ####[facility] [address] [place], [place], [phone] CRP [Mass/Vol]Ordered By: Elina Fish on 10-06-2024 C-Reactive Protein Extended Range 3.29 mg/L High 0.0-3.0 [facility] International normalized rat io (INR) calculationOrdered By: Eun Lloyd on 10-06-2024 INR Coag (Bld) [Relative time] 2.6 {INR} [facility] Prothrombin Time w/INRon INR Coag (PPP) [Relative time] 2.6 {INR} Normal [facility] Comment on above: Performed By: #### L 300.3900 ####[facility] [address] [place], [place], [phone] PT Coag (PPP) [Time] 28.4 s High 11.7-14.9 [facility] Comment on above: Performed By: #### L 300.3900 ####[facility] [address] [place], [place], [phone] Prothrombin timeOrdered By: Eun Lloyd on 10-06-2024 PT Coag (PPP) [Time] 28.4 s High 11.7-14.9 [facility] Serum or plasma C reactive p rotein measurement (mass/volume)Ordered By: Radha Fish on 10-06-2024 CRP [Mass/Vol] 3.29 mg/L High 0.0-3.0 [facility] International normalized rat io (INR) calculationOrdered By: Eun Lloyd on 09-12-2024 INR Coag (Bld) [Relative time] 3.3 {INR} [facility] Prothrombin Time w/INRon INR Coag (PPP) [Relative time] 3.3 {INR} Normal [facility] Comment on above: Performed By: #### L 300.3900 ####[facility] [address] [place], [place], [address] PT Coag (PPP) [Time] 34.1 s High 11.7-14.9 [facility] Comment on above: Performed By: #### L 300.3909 ####[facility] [address] [place], [place], [phone] Prothrombin timeOrdered By: Eun Lloyd on 09-12-2024 PT Coag (PPP) [Time] 34.1 s High 11.7-14.9 [facility] 72-VA-Zljljdv DOrdered By: Sisi Fish on 09-01-2024 Vitamin D 25-Hydroxy 58.4 ng/mL [facility] Comment on above: Vitamin D 25(OH) Sta tus Range Deficiency <20 ng/mL (50nmol/L) Insufficiency 20 - 30 ng/mL (50 - 75 nmol/L) Sufficiency 30 - 100 ng/mL (75 - 250 nmol/L) Toxicity >100 ng/mL (>250 nmol/L) Absolute neutrophil countOrd ered By: Radha Fish on 09-01-2024 Neutrophils (Bld) [#/Vol] 4.6 10*3/uL 2.0-7.7 [facility] Albumin to globulin ratioOrd ered By: Radha Fish on 09-01-2024 Albumin/Globulin [Mass ratio] 0.9 {ratio} 0.9-2.4 [facility] Basophil percentageOrdered B y: Radha Fish on 09-01-2024 Basophils/100 WBC (Bld) 0.7 % 0-1 [facility] Bilirubin, totalOrdered By: Radha Fish on 09-01-2024 Bilirubin [Mass/Vol] 1.20 mg/dL High 0.20-1.00 [facility] Comment on above: For patients on eltr ombopag therapy, use of Dimension [place]man TBIL is not recommended. Blood urea nitrogen (BUN)/cr eatinine ratioOrdered By: Radha Fish on 09-01-2024 Urea nitrogen/Creatinine [Mass ratio] 18.1 mg/mg 10-20 [facility] C-reactive protein measureme nt by high sensitivity methodOrdered By: Radha Fish on 09-01-2024 C-Reactive Protein Extended Range 7.31 mg/L High 0.0-3.0 [facility] Comment on above: C-Reactive Protein ( CRP) provides useful information for thediagnosis, therapy and monitoring of inflammatory processesand associated diseases. For the evaluation of Relative Riskfor Cardiovascular Disease, a High Sensitivity CRP (HSCRP)should be ordered. CBC W/Diff, Automatedon 08-05 Absolute Lymph 1.02 X10 3/uL Normal 0.83-4.51 [facility] Comment on above: Performed By: #### L 501.9520, L506.1000, L501.6710, L101.9900, L100.0100, L500.4050 ####[facility] [address] [place], [address] Absolute Neut 4.6 X10 3/uL Normal 2.0-7.7 [facility] Comment on above: Performed By: #### L 501.9520, L506.1000, L501.6710, L101.9900, L100.0100, L500.4050 ####[facility] [address] [place], [address] Basophils/100 WBC (Bld) 0.7 % Normal 0-1 [facility] Comment on above: Performed By: #### L 501.9520, L506.1000, L501.6710, L101.9900, L100.0100, L500.4050 ####[facility] [address] [place], [address] Eosinophils/100 WBC (Bld) 3.4 % Normal 0-5 [facility] [facility] Comment on above: Performed By: #### L 501.9520, L506.1000, L501.6710, L101.9900, L100.0100, L500.4050 ####[facility] [address] [place], [address] Erythrocyte distribution width (RBC) [Ratio] 14.5 % Normal 11.6-14.6 [facility] [place] Comment on above: Performed By: #### L 501.9520, L506.1000, L501.6710, L101.9900, L100.0100, L500.4050 ####[facility] [address] [place], [address] Hematocrit (Bld) [Volume fraction] 41.8 % Normal 37-47 [facility] [place] Comment on above: Performed By: #### L 501.9520, L506.1000, L501.6710, L101.9900, L100.0100, L500.4050 ####[facility] [address] [place], [address] Hemoglobin (Bld) [Mass/Vol] 13.5 g/dL Normal 12.0-15.0 [facility] Comment on above: Performed By: #### L 501.9520, L506.1000, L501.6710, L101.9900, L100.0100, L500.4050 ####[facility] [address] [place], [address] IG% 0.300 Normal 0.0-0.9 [facility] Comment on above: Result Comment: IG% - Immature Granulocytes (promyelocytes, myelocytes andmetamyelocytes) > 1% indicates that a LEFT SHIFT is Present. Performed By: #### L 501.9520, L506.1000, L501.6710, L101.9900, L100.0100, L500.4050 ####[facility] [address] [place], [address] Lymphocytes/100 WBC (Bld) 15.1 % Low 19-41 [facility] [place] Comment on above: Performed By: #### L 501.9520, L506.1000, L501.6710, L101.9900, L100.0100, L500.4050 ####[facility] [address] [place], [address] MCH (RBC) [Entitic mass] 32.8 pg High 27.0-32.0 [facility] Comment on above: Performed By: #### L 501.9520, L506.1000, L501.6710, L101.9900, L100.0100, L500.4050 ####[facility] [address] [place], [address] MCHC (RBC) [Mass/Vol] 32.3 g/dL Normal 32-36 [facility] Comment on above: Performed By: #### L 501.9520, L506.1000, L501.6710, L101.9900, L100.0100, L500.4050 ####[facility] [address] [place], [address] MCV (RBC) [Entitic vol] 101.5 fL High 81-99 [facility] Comment on above: Performed By: #### L 501.9520, L506.1000, L501.6710, L101.9900, L100.0100, L500.4050 ####[facility] [address] [place], [address] Monocytes/100 WBC (Bld) 12.4 % High 0-10 [facility] Comment on above: Performed By: #### L 501.9520, L506.1000, L501.6710, L101.9900, L100.0100, L500.4050 ####[facility] [address] [place], [address] Neutrophils/100 WBC (Bld) 68.1 % Normal 47-70 [facility] Comment on above: Performed By: #### L 501.9520, L506.1000, L501.6710, L101.9900, L100.0100, L500.4050 ####[facility] [address] [place], [address] Nucleated RBC (Bld) [#/Vol] 0 10*3/uL Normal 0-5 [facility] Comment on above: Performed By: #### L 501.9520, L506.1000, L501.6710, L101.9900, L100.0100, L500.4050 ####[facility] [address] [place], [address] Platelet mean volume (Bld) [Entitic vol] 8.7 fL Normal 6.2-12.0 [facility] Comment on above: Performed By: #### L 501.9520, L506.1000, L501.6710, L101.9900, L100.0100, L500.4050 ####[facility] [address] [place], [address] Platelets (Bld) [#/Vol] 202 10*3/uL Normal 150-450 [facility] Comment on above: Performed By: #### L 501.9520, L506.1000, L501.6710, L101.9900, L100.0100, L500.4050 ####[facility] [address] [place], [address] RBC (Bld) [#/Vol] 4.12 10*6/uL Low 4.2-5.4 [facility] Comment on above: Performed By: #### L 501.9520, L506.1000, L501.6710, L101.9900, L100.0100, L500.4050 ####[facility] [address] [place], [address] RDW SD 53.7 fl High 35.1-43.9 [facility] Comment on above: Performed By: #### L 501.9520, L506.1000, L501.6710, L101.9900, L100.0100, L500.4050 ####[facility] [address] [place], [address] WBC (Bld) [#/Vol] 6.8 10*3/uL Normal 4.4-11.0 [facility] Comment on above: Performed By: #### L 501.9520, L506.1000, L501.6710, L101.9900, L100.0100, L500.4050 ####[facility] [address] [place], [address] CRPon 09-01-2024 C-REACTIVE PROT 7.31 mg/L High 0.0-3.0 [facility] Comment on above: Result Comment: C-Re active Protein (CRP) provides useful information for thediagnosis, therapy and monitoring of inflammatory processesand associated diseases. For the evaluation of Relative Riskfor Cardiovascular Disease, a High Sensitivity CRP (HSCRP)should be ordered. Performed By: #### L 501.9520, L506.1000, L501.6710, L101.9900, L100.0100, L500.4050 ####[facility] [address] [place], [address] Carbon dioxide measurementOr dered By: Radha Fish on 09-01-2024 CO2 [Moles/Vol] 26.0 mmol/L 21.0-32.0 [facility] Chloride measurementOrdered By: Radha Fish on 09-01-2024 Chloride [Moles/Vol] 99 mmol/L 98-107 [facility] Comprehensive Metabolic Prof ilon 09-01-2024 Albumin [Mass/Vol] 3.5 g/dL Normal 3.2-5.0 [facility] Comment on above: Performed By: #### L 501.9520, L506.1000, L501.6710, L101.9900, L100.0100, L500.4050 ####[facility] [address] [place], [address] Albumin/Globulin [Mass ratio] 0.9 {ratio} Normal 0.9-2.4 [facility] Comment on above: Performed By: #### L 501.9520, L506.1000, L501.6710, L101.9900, L100.0100, L500.4050 ####[facility] [address] [place], [address] ALK P 93 U/L Normal 45-117 [facility] Comment on above: Performed By: #### L 501.9520, L506.1000, L501.6710, L101.9900, L100.0100, L500.4050 ####[facility] [address] [place], [address] ALT [Catalytic activity/Vol] 30 U/L Normal 13-56 [facility] Comment on above: Performed By: #### L 501.9520, L506.1000, L501.6710, L101.9900, L100.0100, L500.4050 ####[facility] [address] [place], [address] AST [Catalytic activity/Vol] 26 U/L Normal 15-37 [facility] Comment on above: Performed By: #### L 501.9520, L506.1000, L501.6710, L101.9900, L100.0100, L500.4050 ####[facility] [address] [place], [address] Bilirubin [Mass/Vol] 1.20 mg/dL High 0.20-1.00 [facility] Comment on above: Result Comment: For patients on eltrombopag therapy, use of Dimension Shipman TBIL is not recommended. Performed By: #### L 501.9520, L506.1000, L501.6710, L101.9900, L100.0100, L500.4050 ####[facility] [address] [place], [address] BUN/CRE 18.1 RATIO Normal 10-20 [facility] Comment on above: Performed By: #### L 501.9520, L506.1000, L501.6710, L101.9900, L100.0100, L500.4050 ####[facility] [address] [place], [address] CA,Total 9.6 mg/dL Normal 8.5-10.1 [facility] Comment on above: Performed By: #### L 501.9520, L506.1000, L501.6710, L101.9900, L100.0100, L500.4050 ####[facility] [address] [place], [address] Chloride [Moles/Vol] 99 mmol/L Normal 98-107 [facility] Comment on above: Performed By: #### L 501.9520, L506.1000, L501.6710, L101.9900, L100.0100, L500.4050 ####[facility] [address] [place], [address] CO2 [Moles/Vol] 26.0 mmol/L Normal 21.0-32.0 [facility] Comment on above: Performed By: #### L 501.9520, L506.1000, L501.6710, L101.9900, L100.0100, L500.4050 ####[facility] [address] [place], [address] Creatinine [Mass/Vol] 1.27 mg/dL High 0.55-1.02 [facility] Comment on above: Result Comment: The validity of the calculated GFR GFRAA in patients over70 years has not been determined. Clinical correlation isessential. Performed By: #### L 501.9520, L506.1000, L501.6710, L101.9900, L100.0100, L500.4050 ####[facility] [address] [place], [address] EST GFR - AA 51 mL/min Low >60 [facility] Comment on above: Result Comment: Afri can Belarusian GFR Calc Performed By: #### L 501.9520, L506.1000, L501.6710, L101.9900, L100.0100, L500.4050 ####[facility] [address] [place], [address] GAP 7 Normal 5-15 [facility] Comment on above: Performed By: #### L 501.9520, L506.1000, L501.6710, L101.9900, L100.0100, L500.4050 ####[facility] [address] [place], [address] GFR/1.73 sq M.predicted among non-blacks MDRD (S/P/Bld) [Vol rate/Area] 42 mL/min/{1.73_m2} Low >60 [facility] Comment on above: Result Comment: Non- GFR Calc Performed By: #### L 501.9520, L506.1000, L501.6710, L101.9900, L100.0100, L500.4050 ####[facility] [address] [place], [address] Globulin (S) [Mass/Vol] 3.9 g/dL Normal 2.2-4.2 [facility] Comment on above: Performed By: #### L 501.9520, L506.1000, L501.6710, L101.9900, L100.0100, L500.4050 ####[facility] [address] [place], [address] Glucose [Mass/Vol] 90 mg/dL Normal 74-106 [facility] Comment on above: Performed By: #### L 501.9520, L506.1000, L501.6710, L101.9900, L100.0100, L500.4050 ####[facility] [address] [place], [address] Potassium [Moles/Vol] 5.0 mmol/L Normal 3.5-5.1 [facility] Comment on above: Performed By: #### L 501.9520, L506.1000, L501.6710, L101.9900, L100.0100, L500.4050 ####[facility] [address] [place], [address] Sodium [Moles/Vol] 132 mmol/L Low 136-145 [facility] Comment on above: Performed By: #### L 501.9520, L506.1000, L501.6710, L101.9900, L100.0100, L500.4050 ####[facility] [address] [place], [address] T PROT 7.4 g/dL Normal 6.4-8.2 [facility] Comment on above: Performed By: #### L 501.9520, L506.1000, L501.6710, L101.9900, L100.0100, L500.4050 ####[facility] [address] [place], [address] Urea nitrogen [Mass/Vol] 23 mg/dL High 7-18 [facility] Comment on above: Performed By: #### L 501.9520, L506.1000, L501.6710, L101.9900, L100.0100, L500.4050 ####[facility] [address] [place], [address] Eosinophil percentageOrdered By: Radha Fish on 09-01-2024 Eosinophils/100 WBC (Bld) 3.4 % 0-5 [facility] Erythrocyte Sed Rateon 09-01 SED RATE 12 mm/hr Normal 0-30 [facility] Comment on above: Performed By: #### L 501.9520, L506.1000, L501.6710, L101.9900, L100.0100, L500.4050 ####[facility] [address] [place], [address] Erythrocyte distribution wid th ratioOrdered By: Radha Fish on 09-01-2024 Erythrocyte distribution width (RBC) [Ratio] 14.5 % 11.6-14.6 [facility] Erythrocyte distribution wid th standard deviationOrdered By: Radha Fish on 09-01-2024 Erythrocyte distribution width (RBC) [Entitic vol] 53.7 fL High 35.1-43.9 [facility] Erythrocyte sedimentation ra teOrdered By: Radha Fish on 09-01-2024 ESR (Bld) [Velocity] 12 mm/h 0-30 [facility] Estimated glomerular filtrat ion rate (GFR) AmericanOrdered By: Radha Fish on 09-01-2024 Estimated GFR (MDRD) Amer 51 mL/min Low >60 [facility] Comment on above: GFR Calc Glomerular filtration rate ( GFR) estimationOrdered By: Radha Fish on 09-01-2024 Estimated GFR (MDRD) Non-Af Amer 42 mL/min Low >60 [facility] Comment on above: Non- GFR Calc Glucose measurementOrdered B y: Radha Fish on 09-01-2024 Glucose [Mass/Vol] 90 mg/dL 74-106 [facility] Hematocrit Auto (Bld) [Volum e fraction]Ordered By: Radha Fish on 09-01-2024 Hematocrit (Bld) [Volume fraction] 41.8 % 37-47 [facility] Hemoglobin measurementOrdere d By: Radha Fish on 09-01-2024 Hemoglobin (Bld) [Mass/Vol] 13.5 g/dL 12.0-15.0 [facility] Immature granulocytes/100 WB C Auto (Bld)Ordered By: Radha Fish on 09-01-2024 Immature granulocytes/100 WBC (Bld) 0.300 % 0.0-0.9 [facility] Comment on above: IG% - Immature Granu locytes (promyelocytes, myelocytes and metamyelocytes) > 1% indicates that a LEFT SHIFT is Present. Internal Medicine Office Vis iton 09-01-2024 Internal Medicine Office Visit Normal [facility] Laboratory - Chemistry and C hemistry - challengeOrdered By: Rahda Fish on 09-01-2024 AST [Catalytic activity/Vol] 26 U/L 15-37 [facility] Lymphocytes Auto (Unsp spec) [#/Vol]Ordered By: Radha Fish on 09-01-2024 Lymphocytes (Bld) [#/Vol] 1.02 10*3/uL 0.83-4.51 [facility] Lymphocytes/100 WBC Auto (Un sp spec)Ordered By: Radha Fish on 09-01-2024 Lymphocytes/100 WBC (Bld) 15.1 % Low 19-41 [facility] MCV (mean corpuscular volume ) determinationOrdered By: Radha Fish on 09-01-2024 MCV (RBC) [Entitic vol] 101.5 fL High 81-99 [facility] Mean corpuscular hemoglobin (MCH) determinationOrdered By: Radha Fish on 09-01-2024 MCH (RBC) [Entitic mass] 32.8 pg High 27.0-32.0 [facility] Mean corpuscular hemoglobin concentration (MCHC) determinationOrdered By: Hughlincolnlisa Fish on 09-01-2024 MCHC (RBC) [Mass/Vol] 32.3 g/dL 32-36 [facility] Mean platelet volume determi nationOrdered By: Radha Fish on 09-01-2024 Platelet mean volume (Bld) [Entitic vol] 8.7 fL 6.2-12.0 [facility] Monocyte percentageOrdered B y: Radha Fish on 09-01-2024 Monocytes/100 WBC (Bld) 12.4 % High 0-10 [facility] Neutrophil percentageOrdered By: Radha Fish on 09-01-2024 Neutrophils/100 WBC (Bld) 68.1 % 47-70 [facility] Nucleated red blood cell per centageOrdered By: Radha Fish on 09-01-2024 Nucleated RBC/100 WBC (Bld) [Ratio] 0 % 0-5 [facility] Platelet countOrdered By: Elina Fish on 09-01-2024 Platelets (Bld) [#/Vol] 202 10*3/uL 150-450 [facility] Potassium measurementOrdered By: Radha Fish on 09-01-2024 Potassium [Moles/Vol] 5.0 mmol/L 3.5-5.1 [facility] RBC Auto (Bld) [#/Vol]Ordere d By: Radha Fish on 09-01-2024 RBC (Bld) [#/Vol] 4.12 10*6/uL Low 4.2-5.4 [facility] Serum anion gap measurementO rdered By: Radha Fish on 09-01-2024 Anion gap [Moles/Vol] 7 mmol/L 5-15 [facility] Serum globulin measurementOr dered By: Radha Fish on 09-01-2024 Globulin (S) [Mass/Vol] 3.9 g/dL 2.2-4.2 [facility] Serum or plasma alanine henderson otransferase (ALT) measurementOrdered By: Radha Fish on 09-01-2024 ALT [Catalytic activity/Vol] 30 U/L 13-56 [facility] Serum or plasma albumin caleb urement (mass/volume)Ordered By: Radha Fish on 09-01-2024 Albumin [Mass/Vol] 3.5 g/dL 3.2-5.0 [facility] Serum or plasma alkaline lexus sphatase measurementOrdered By: Radha Fish on 09-01-2024 ALP [Catalytic activity/Vol] 93 U/L 45-117 [facility] Serum or plasma calcium caleb urement (mass/volume)Ordered By: Radha Fish on 09-01-2024 Calcium [Mass/Vol] 9.6 mg/dL 8.5-10.1 [facility] Serum or plasma creatinine m easurement (mass/volume)Ordered By: Radha Fish on 09-01-2024 Creatinine [Mass/Vol] 1.27 mg/dL High 0.55-1.02 [facility] Comment on above: The validity of the calculated GFR & GFRAA in patients over 70 years has not been determined. Clinical correlation is essential. Serum or plasma urea nitroge n measurement (mass/volume)Ordered By: Radha Fish on 09-01-2024 Urea nitrogen [Mass/Vol] 23 mg/dL High 7-18 [facility] Sodium levelOrdered By: Hugh osman Polina on 09-01-2024 Sodium [Moles/Vol] 132 mmol/L Low 136-145 [facility] TSH QnOrdered By: Hughisabelalisa Fish on 09-01-2024 Thyroid Stimulating Hormone (TSH) 1.010 uIU/mL 0.358-3.740 [facility] Thyroid Stim Hormone (TSH)on 09-01-2024 TSH 1.010 uIU/mL Normal 0.358-3.740 [facility] Comment on above: Performed By: #### L 501.9520, L506.1000, L501.6710, L101.9900, L100.0100, L500.4050 ####[facility] [address] [place], [address] Total proteinOrdered By: Sid perez Polina on 09-01-2024 Protein [Mass/Vol] 7.4 g/dL 6.4-8.2 [facility] Vitamin D,25 Hydroxyon 09-01 Vitamin D 25-OH 58.4 ng/mL Normal [facility] Comment on above: Result Comment: [place] min D 25(OH) Status Range Deficiency <20 ng/mL (50nmol/L) Insufficiency 20 - 30 ng/mL (50 - 75 nmol/L) Sufficiency 30 - 100 ng/mL (75 - 250 nmol/L) Toxicity >100 ng/mL (>250 nmol/L) Performed By: #### L 501.9520, L506.1000, L501.6710, L101.9900, L100.0100, L500.4050 ####[facility] [address] [place], [place], [phone] White blood cell (WBC) count Ordered By: Radha Fish on 09-01-2024 WBC (Bld) [#/Vol] 6.8 10*3/uL 4.4-11.0 [facility] International normalized rat io (INR) calculationOrdered By: Eun Lloyd on 08-15-2024 INR Coag (Bld) [Relative time] 2.7 {INR} [facility] Prothrombin Time w/INRon INR Coag (PPP) [Relative time] 2.7 {INR} Normal [facility] Comment on above: Performed By: #### L 300.3900 ####[facility] [address] [place], [place], [phone] PT Coag (PPP) [Time] 29.3 s High 11.7-14.9 [facility] Comment on above: Performed By: #### L 300.3900 ####[facility] [address] [place], [place], [phone] Prothrombin timeOrdered By: Eun Lloyd on 08-15-2024 PT Coag (PPP) [Time] 29.3 s High 11.7-14.9 [facility] normalized rat io (INR) calculationOrdered By: Eun Lloyd on 08-01-2024 INR Coag (Bld) [Relative time] 2.3 {INR} [facility] Prothrombin Time w/INRon INR Coag (PPP) [Relative time] 2.3 {INR} Normal [facility] Comment on above: Performed By: #### L 300.3900 ####[facility] [address] [place], [address] PT Coag (PPP) [Time] 25.8 s High 11.7-14.9 [facility] Comment on above: Performed By: #### L 300.3900 ####[facility] [address] [place], [place], [phone] Prothrombin timeOrdered By: Eun Lloyd on 08-01-2024 PT Coag (PPP) [Time] 25.8 s High 11.7-14.9 [facility] Prothrombin Time w/INRon INR Coag (PPP) [Relative time] 3.0 {INR} Normal [facility] Comment on above: Performed By: #### L 300.3900 ####[facility] [address] [place], [place], [phone] PT Coag (PPP) [Time] 31.2 s High 11.7-14.9 [facility] Comment on above: Performed By: #### L 300.3900 ####[facility] [address] [place], [place], [phone] Laboratory - CoagulationOrde red By: Eun Lloyd on 11-16-2023 INR Coag (Bld) [Relative time] 2.6 {INR} [facility] PT Coag (PPP) [Time] 27.8 s 11.7-14.9 [facility] Laboratory - CoagulationOrde red By: Eun Lloyd on 10-19-2023 INR Coag (Bld) [Relative time] 2.3 {INR} [facility] PT Coag (PPP) [Time] 25.1 s 11.7-14.9 [facility] Basophil percentageOrdered B y: Eun Lloyd on 09-21-2023 Chloride [Moles/Vol] 109 mmol/L 98-107 [facility] Glucose [Mass/Vol] 76 mg/dL 74-106 [facility] Potassium [Moles/Vol] 4.3 mmol/L 3.5-5.1 [facility] Sodium [Moles/Vol] 141 mmol/L 136-145 [facility] Laboratory - Chemistry and C hemistry - challengeOrdered By: Eun Lloyd on 09-21-2023 CO2 [Moles/Vol] 28.0 mmol/L 21.0-32.0 [facility] Urea nitrogen/Creatinine [Mass ratio] 14.7 mg/mg 10-20 [facility] Laboratory - CoagulationOrde red By: Eun Lloyd on 09-21-2023 INR Coag (Bld) [Relative time] 3.0 {INR} [facility] PT Coag (PPP) [Time] 31.6 s 11.7-14.9 [facility] No Panel InformationOrdered By: Eun Lloyd on 09-21-2023 Estimated GFR (MDRD) Amer 57 mL/min >60 [facility] [place] Comment on above: GFR Calc Estimated GFR (MDRD) Non-Af Amer 47 mL/min >60 [facility] [place] Comment on above: Non- GFR Calc Serum or plasma calcium caleb urement (mass/volume)Ordered By: Eun Lloyd on 09-21-2023 Calcium [Mass/Vol] 9.5 mg/dL 8.5-10.1 [facility] Serum or plasma creatinine m easurement (mass/volume)Ordered By: Eun Lloyd on 09-21-2023 Creatinine [Mass/Vol] 1.16 mg/dL 0.55-1.02 [facility] Comment on above: The validity of the calculated GFR & GFRAA in patients over 70 years has not been determined. Clinical correlation is essential. Serum or plasma urea nitroge n measurement (mass/volume)Ordered By: Eun Lloyd on 09-21-2023 Urea nitrogen [Mass/Vol] 17 mg/dL 7-18 [facility] Thin prep Papanicolaou smear with manual screeningOrdered By: Eun Lloyd on 09-21-2023 Thin prep Papanicolaou smear with manual screening 4 5-15 [facility] [place] Basophil percentageOrdered B y: Eun Lloyd on 08-31-2023 Chloride [Moles/Vol] 112 mmol/L 98-107 [facility] Glucose [Mass/Vol] 79 mg/dL 74-106 [facility] Potassium [Moles/Vol] 4.8 mmol/L 3.5-5.1 [facility] Sodium [Moles/Vol] 142 mmol/L 136-145 [facility] International normalized rat io (INR) calculationOrdered By: Eun Lloyd on 08-31-2023 INR Coag (PPP) [Relative time] 3.0 {INR} [facility] [place] Laboratory - Chemistry and C hemistry - challengeOrdered By: Eun Lloyd on 08-31-2023 CO2 [Moles/Vol] 25.0 mmol/L 21.0-32.0 [facility] [place] Urea nitrogen/Creatinine [Mass ratio] 18.0 mg/mg 10-20 [facility] Laboratory - CoagulationOrde red By: Eun Lloyd on 08-31-2023 PT Coag (PPP) [Time] 31.3 s 11.7-14.9 [facility] No Panel InformationOrdered By: Eun Lloyd on 08-31-2023 Estimated GFR (MDRD) Amer 60 mL/min >60 [facility] [place] Comment on above: GFR Calc Estimated GFR (MDRD) Non-Af Amer 49 mL/min >60 [facility] [place] Comment on above: Non- GFR Calc Serum or plasma calcium caleb urement (mass/volume)Ordered By: Eun Lloyd on 08-31-2023 Calcium [Mass/Vol] 9.0 mg/dL 8.5-10.1 [facility] Serum or plasma creatinine m easurement (mass/volume)Ordered By: Eun Lloyd on 08-31-2023 Creatinine [Mass/Vol] 1.11 mg/dL 0.55-1.02 [facility] Comment on above: The validity of the calculated GFR & GFRAA in patients over 70 years has not been determined. Clinical correlation is essential. Serum or plasma urea nitroge n measurement (mass/volume)Ordered By: Eun Lloyd on 08-31-2023 Urea nitrogen [Mass/Vol] 20 mg/dL 7-18 [facility] [place] Thin prep Papanicolaou smear with manual screeningOrdered By: Eun Lloyd on 08-31-2023 Thin prep Papanicolaou smear with manual screening 5 5-15 [facility] [place] No Panel InformationOrdered By: Radha Fish on 08-14-2023 Thyroid Stimulating Hormone (TSH) 2.42 uIU/mL 0.358-3.74 [facility] [place] Basophil percentageOrdered B y: Eun Lloyd on 07-15-2023 Bilirubin [Mass/Vol] 0.90 mg/dL 0.20-1.00 [facility] Comment on above: For patients on eltr ombopag therapy, use of Dimension [place] TBIL is not recommended. Cholesterol [Mass/Vol] 184 mg/dL <200 [facility] Comment on above: <200 mg/dL Desirable 200-240 mg/dL Borderline >240 mg/dL High Risk Protein [Mass/Vol] 7.6 g/dL 6.4-8.2 [facility] Triglyceride [Mass/Vol] 149 mg/dL <199 [facility] Comment on above: The drugs N-Acetylcy steine and Metamizole may falsely depress this assay.Serum Triglycerides Reference Interval Normal <150 mg/dL Borderline high 150 - 199 mg/dL High 200 - 499 mg/dL Very High > or = 500 mg/dL Basophil percentageOrdered B y: Radha Fish on 07-15-2023 Chloride [Moles/Vol] 105 mmol/L 98-107 [facility] Glucose [Mass/Vol] 91 mg/dL 74-106 [facility] Potassium [Moles/Vol] 4.5 mmol/L 3.5-5.1 [facility] Sodium [Moles/Vol] 140 mmol/L 136-145 [facility] Direct bilirubinOrdered By: Eun Lloyd on 07-15-2023 Bilirubin.direct [Mass/Vol] 0.24 mg/dL 0.00-0.30 [facility] [place] Laboratory - Chemistry and C hemistry - challengeOrdered By: Eun Lloyd on 07-15-2023 ALP [Catalytic activity/Vol] 76 U/L 45-117 [facility] ALT [Catalytic activity/Vol] 32 U/L 13-56 [facility] [place] Globulin (S) [Mass/Vol] 3.9 g/dL 2.2-4.2 [facility] Laboratory - Chemistry and C hemistry - challengeOrdered By: Radha Fish on 07-15-2023 CO2 [Moles/Vol] 31.0 mmol/L 21.0-32.0 [facility] Urea nitrogen/Creatinine [Mass ratio] 17.2 mg/mg 10-20 [facility] [place] Laboratory - CoagulationOrde red By: Eun Lloyd on 07-15-2023 PT Coag (PPP) [Time] 28.7 s 11.7-14.9 [facility] No Panel InformationOrdered By: Radha Fish on 07-15-2023 Estimated GFR (MDRD) Amer 54 mL/min >60 [facility] [place] Comment on above: GFR Calc Estimated GFR (MDRD) Non-Af Amer 44 mL/min >60 [facility] [place] Comment on above: Non- GFR Calc Thyroid Stimulating Hormone (TSH) 7.35 uIU/mL 0.358-3.74 [facility] [place] Serum or plasma albumin caleb urement (mass/volume)Ordered By: Eun Lloyd on 07-15-2023 Albumin [Mass/Vol] 3.7 g/dL 3.2-5.0 [facility] Serum or plasma calcium caleb urement (mass/volume)Ordered By: Radha Fish on 07-15-2023 Calcium [Mass/Vol] 9.2 mg/dL 8.5-10.1 [facility] Serum or plasma cholesterol in HDL measurement (mass/volume)Ordered By: Eun Lloyd on 07-15-2023 Cholesterol in HDL [Mass/Vol] 85 mg/dL >40 [facility] [place] Comment on above: The drugs N-Acetylcy steine and Metamizole may falsely depress this assay. Reference Range HDL <40 mg/dL Low HDL Cholesterol HDL >or= 60 mg/dL High HDL Cholesterol Serum or plasma cholesterol in VLDL measurement (mass/volume)Ordered By: Eun Llyod on 07-15-2023 Cholesterol in VLDL [Mass/Vol] 30 mg/dL 5-40 [facility] [place] Serum or plasma creatinine m easurement (mass/volume)Ordered By: Radha Fish on 07-15-2023 Creatinine [Mass/Vol] 1.22 mg/dL 0.55-1.02 [facility] Comment on above: The validity of the calculated GFR & GFRAA in patients over 70 years has not been determined. Clinical correlation is essential. Serum or plasma low density lipoprotein (LDL) cholesterol measurement (mass/volume)Ordered By: Eun Lloyd on 07-15-2023 Cholesterol in LDL [Mass/Vol] 69 mg/dL 0-130 [facility] [place] Serum or plasma urea nitroge n measurement (mass/volume)Ordered By: Radha Fish on 07-15-2023 Urea nitrogen [Mass/Vol] 21 mg/dL 7-18 [facility] [place] Thin prep Papanicolaou smear with manual screeningOrdered By: Eun Lloyd on 07-15-2023 Thin prep Papanicolaou smear with manual screening 29 U/L 15-37 [facility] [place] Thin prep Papanicolaou smear with manual screeningOrdered By: Radha Fish on 07-15-2023 Thin prep Papanicolaou smear with manual screening 4 5-15 [facility] [place] Whole blood international no rmalized ratio (INR)Ordered By: Eun Lloyd on 07-15-2023 INR Coag (Bld) [Relative time] 2.7 {INR} [facility] [place] Laboratory - CoagulationOrde red By: Eun Lloyd on 06-18-2023 PT Coag (PPP) [Time] 32.7 s 11.7-14.9 [facility] Whole blood international no rmalized ratio (INR)Ordered By: Eun Lloyd on 06-18-2023 INR Coag (Bld) [Relative time] 3.1 {INR} [facility] [place] INR in Blood by Coagulation assayOrdered By: Eun Lloyd on 05-29-2023 INR Coag (Bld) [Relative time] 3.2 {INR} [facility] [place] Laboratory - CoagulationOrde red By: Eun Lloyd on 05-29-2023 PT Coag (PPP) [Time] 32.8 s 11.7-14.9 [facility] INR in Blood by Coagulation assayOrdered By: Radha Fish on 04-17-2023 INR Coag (Bld) [Relative time] 2.6 {INR} [facility] [place] Laboratory - CoagulationOrde red By: Radha Fish on 04-17-2023 PT Coag (PPP) [Time] 27.8 s 11.7-14.9 [facility] No Panel InformationOrdered By: Radha Fish on 04-17-2023 Vitamin D 25-Hydroxy 54.8 ng/mL [facility] Comment on above: Vitamin D 25(OH) Sta tus Range Deficiency <20 ng/mL (50nmol/L) Insufficiency 20 - 30 ng/mL (50 - 75 nmol/L) Sufficiency 30 - 100 ng/mL (75 - 250 nmol/L) Toxicity >100 ng/mL (>250 nmol/L) INR in Blood by Coagulation assayOrdered By: Eun Lloyd on 03-18-2023 INR Coag (Bld) [Relative time] 3.1 {INR} [facility] [place] Laboratory - CoagulationOrde red By: Eun Lloyd on 03-18-2023 PT Coag (PPP) [Time] 32.7 s 11.7-14.9 [facility] INR in Blood by Coagulation assayOrdered By: Eun Lloyd on 02-12-2023 INR Coag (Bld) [Relative time] 2.9 {INR} [facility] [place] Laboratory - CoagulationOrde red By: Eun Lloyd on 02-12-2023 PT Coag (PPP) [Time] 30.6 s 11.7-14.9 [facility] Absolute lymphocyte countOrd ered By: Radha Fish on 01-23-2023 Lymphocytes Auto (Unsp spec) [#/Vol] 0.76 10*3/uL 0.83-4.51 [facility] [place] Basophil percentageOrdered B y: Radha Fish on 01-23-2023 Basophils/100 WBC (Bld) 1.4 % 0-1 [facility] Chloride [Moles/Vol] 106 mmol/L 98-107 [facility] Eosinophils/100 WBC (Bld) 12.8 % 0-5 [facility] [place] Glucose [Mass/Vol] 96 mg/dL 74-106 [facility] Neutrophils (Bld) [#/Vol] 3.9 10*3/uL 2.0-7.7 [facility] Neutrophils/100 WBC (Bld) 61.8 % 47-70 [facility] [place] Potassium [Moles/Vol] 4.4 mmol/L 3.5-5.1 [facility] Sodium [Moles/Vol] 140 mmol/L 136-145 [facility] WBC (Bld) [#/Vol] 6.2 10*3/uL 4.4-11.0 [facility] Basophil percentageOrdered B y: Eun Lloyd on 01-23-2023 Bilirubin [Mass/Vol] 1.00 mg/dL 0.20-1.00 [facility] Comment on above: For patients on eltr ombopag therapy, use of Dim[employer] [place] TBIL is not recommended. Cholesterol [Mass/Vol] 198 mg/dL <200 [facility] Comment on above: <200 mg/dL Desirable 200-240 mg/dL Borderline >240 mg/dL High Risk Protein [Mass/Vol] 7.5 g/dL 6.4-8.2 [facility] Triglyceride [Mass/Vol] 90 mg/dL <199 [facility] Comment on above: The drugs N-Acetylcy steine and Metamizole may falsely depress this assay.Serum Triglycerides Reference Interval Normal <150 mg/dL Borderline high 150 - 199 mg/dL High 200 - 499 mg/dL Very High > or = 500 mg/dL Blood erythrocytes count (nu mber/volume)Ordered By: Radha Fish on 01-23-2023 RBC (Bld) [#/Vol] 4.35 10*6/uL 4.2-5.4 [facility] Blood hemoglobin measurement (mass/volume)Ordered By: Radha Fish on 01-23-2023 Hemoglobin (Bld) [Mass/Vol] 14.7 g/dL 12.0-15.0 [facility] [place] Blood lymphocytes/100 leukoc ytesOrdered By: Radha Fish on 01-23-2023 Lymphocytes/100 WBC (Bld) 12.2 % 19-41 [facility] [place] Blood monocytes/100 leukocyt esOrdered By: Radha Fish on 01-23-2023 Monocytes/100 WBC (Bld) 11.5 % 0-10 [facility] Blood platelet mean volumeOr dered By: Radha Fish on 01-23-2023 Platelet mean volume (Bld) [Entitic vol] 8.7 fL 6.2-12.0 [facility] [place] Determination of erythrocyte mean corpuscular volume (MCV)Ordered By: Radha Fish on 01-23-2023 MCV (RBC) [Entitic vol] 104.4 fL 81-99 [facility] Direct bilirubinOrdered By: Eun Lloyd on 01-23-2023 Bilirubin.direct [Mass/Vol] 0.25 mg/dL 0.00-0.30 [facility] [place] Hematocrit Auto (Bld) [Volum e fraction]Ordered By: Radha Fish on 01-23-2023 Hematocrit (Bld) [Volume fraction] 45.4 % 37-47 [facility] [place] INR in Blood by Coagulation assayOrdered By: Eun Lloyd on 01-23-2023 INR Coag (Bld) [Relative time] 2.4 {INR} [facility] Laboratory - Chemistry and C hemistry - challengeOrdered By: Eun Lloyd on 01-23-2023 ALP [Catalytic activity/Vol] 80 U/L 45-117 [facility] ALT [Catalytic activity/Vol] 32 U/L 13-56 [facility] [place] Globulin (S) [Mass/Vol] 3.8 g/dL 2.2-4.2 [facility] Laboratory - Chemistry and C hemistry - challengeOrdered By: Radha Fish on 01-23-2023 CO2 [Moles/Vol] 28.0 mmol/L 21.0-32.0 [facility] Urea nitrogen/Creatinine [Mass ratio] 16.7 mg/mg 10-20 [facility] [place] Laboratory - CoagulationOrde red By: Eun Lloyd on 01-23-2023 PT Coag (PPP) [Time] 26.6 s 11.7-14.9 [facility] Laboratory - Hematology and Cell countsOrdered By: Radha Fish on 01-23-2023 Erythrocyte distribution width (RBC) [Entitic vol] 58.6 fL 35.1-43.9 [facility] [place] Erythrocyte distribution width (RBC) [Ratio] 14.9 % 11.6-14.6 [facility] [place] Immature granulocytes/100 WBC (Bld) 0.300 % 0.0-0.9 [facility] [place] Comment on above: IG% - Immature Granu locytes (promyelocytes, myelocytes and metamyelocytes) > 1% indicates that a LEFT SHIFT is Present. MCH (RBC) [Entitic mass] 33.8 pg 27.0-32.0 [facility] Nucleated RBC/100 WBC (Bld) [Ratio] 0 % 0-5 [facility] MCHC Auto (RBC) [Mass/Vol]Or dered By: Radha Fish on 01-23-2023 MCHC (RBC) [Mass/Vol] 32.4 g/dL 32-36 [facility] No Panel InformationOrdered By: Radha Fish on 01-23-2023 Estimated GFR (MDRD) Amer 58 mL/min >60 [facility] [place] Comment on above: GFR Calc Estimated GFR (MDRD) Non-Af Amer 48 mL/min >60 [facility] [place] Comment on above: Non- GFR Calc Thyroid Stimulating Hormone (TSH) 7.89 uIU/mL 0.358-3.74 [facility] [place] Platelets bldOrdered By: Sid Fish on 01-23-2023 Platelets (Bld) [#/Vol] 253 10*3/uL 150-450 [facility] [place] Serum or plasma albumin caleb urement (mass/volume)Ordered By: Eun Lloyd on 01-23-2023 Albumin [Mass/Vol] 3.7 g/dL 3.2-5.0 [facility] Serum or plasma calcium caleb urement (mass/volume)Ordered By: Radha Fish on 01-23-2023 Calcium [Mass/Vol] 9.2 mg/dL 8.5-10.1 [facility] Serum or plasma cholesterol in HDL measurement (mass/volume)Ordered By: Eun Lloyd on 01-23-2023 Cholesterol in HDL [Mass/Vol] 94 mg/dL >40 [facility] [place] Comment on above: The drugs N-Acetylcy steine and Metamizole may falsely depress this assay. Reference Range HDL <40 mg/dL Low HDL Cholesterol HDL >or= 60 mg/dL High HDL Cholesterol Serum or plasma cholesterol in VLDL measurement (mass/volume)Ordered By: Eun Lloyd on 01-23-2023 Cholesterol in VLDL [Mass/Vol] 18 mg/dL 5-40 [facility] [place] Serum or plasma creatinine m easurement (mass/volume)Ordered By: Radha Fish on 01-23-2023 Creatinine [Mass/Vol] 1.14 mg/dL 0.55-1.02 [facility] Comment on above: The validity of the calculated GFR & GFRAA in patients over 70 years has not been determined. Clinical correlation is essential. Serum or plasma low density lipoprotein (LDL) cholesterol measurement (mass/volume)Ordered By: Eun Lloyd on 01-23-2023 Cholesterol in LDL [Mass/Vol] 86 mg/dL 0-130 [facility] [place] Serum or plasma urea nitroge n measurement (mass/volume)Ordered By: Radha Fish on 01-23-2023 Urea nitrogen [Mass/Vol] 19 mg/dL 7-18 [facility] Thin prep Papanicolaou smear with manual screeningOrdered By: Eun Lloyd on 01-23-2023 Thin prep Papanicolaou smear with manual screening 33 U/L 15-37 [facility] [place] Thin prep Papanicolaou smear with manual screeningOrdered By: Radha Fish on 01-23-2023 Thin prep Papanicolaou smear with manual screening 6 5-15 [facility] INR in Blood by Coagulation assayOrdered By: Eun Lloyd on 01-01-2023 INR Coag (Bld) [Relative time] 3.3 {INR} [facility] [place] Laboratory - CoagulationOrde red By: Eun Lloyd on 01-01-2023 PT Coag (PPP) [Time] 33.9 s 11.7-14.9 [facility] INR in Blood by Coagulation assayOrdered By: Eun Lloyd on 12-04-2022 INR Coag (Bld) [Relative time] 2.4 {INR} [facility] [place] Laboratory - CoagulationOrde red By: Eun Lloyd on 12-04-2022 PT Coag (PPP) [Time] 26.7 s 11.7-14.9 [facility] INR in Blood by Coagulation assayOrdered By: Dr. Babin on 10-31-2022 INR Coag (Bld) [Relative time] 3.1 {INR} [facility] [place] Laboratory - CoagulationOrde red By: Dr. Babin on 10-31-2022 PT Coag (PPP) [Time] 31.4 s 11.7-14.9 [facility] INR in Blood by Coagulation assayOrdered By: Dr. Babin on 09-26-2022 INR Coag (Bld) [Relative time] 2.7 {INR} [facility] Laboratory - CoagulationOrde red By: Dr. Babin on 09-26-2022 PT Coag (PPP) [Time] 27.9 s 11.7-14.9 [facility] No Panel Informationon 09-18 Influenza Types A,B Rapid (Clinic) Negative [facility] POC SARS CoV-2 Antigen Negative [facility] Basophil percentageOrdered B y: Eun Lloyd on 08-21-2022 Bilirubin [Mass/Vol] 0.60 mg/dL 0.20-1.00 [facility] Comment on above: For patients on eltr ombopag therapy, use of Dim[employer] [place] TBIL is not recommended. Cholesterol [Mass/Vol] 180 mg/dL <200 [facility] Comment on above: <200 mg/dL Desirable 200-240 mg/dL Borderline >240 mg/dL High Risk Protein [Mass/Vol] 7.2 g/dL 6.4-8.2 [facility] Triglyceride [Mass/Vol] 168 mg/dL <199 [facility] Comment on above: The drugs N-Acetylcy steine and Metamizole may falsely depress this assay.Serum Triglycerides Reference Interval Normal <150 mg/dL Borderline high 150 - 199 mg/dL High 200 - 499 mg/dL Very High > or = 500 mg/dL Direct bilirubinOrdered By: Eun Lloyd on 08-21-2022 Bilirubin.direct [Mass/Vol] 0.15 mg/dL 0.00-0.30 [facility] [place] INR in Blood by Coagulation assayOrdered By: Eun Lloyd on 08-21-2022 INR Coag (Bld) [Relative time] 3.0 {INR} [facility] [place] Laboratory - Chemistry and C hemistry - challengeOrdered By: Eun Lloyd on 08-21-2022 ALP [Catalytic activity/Vol] 74 U/L 45-117 [facility] ALT [Catalytic activity/Vol] 35 U/L 13-56 [facility] Globulin (S) [Mass/Vol] 3.6 g/dL 2.2-4.2 [facility] Laboratory - CoagulationOrde red By: Eun Lloyd on 08-21-2022 PT Coag (PPP) [Time] 30.7 s 11.7-14.9 [facility] Serum or plasma albumin caleb urement (mass/volume)Ordered By: Eun Lloyd on 08-21-2022 Albumin [Mass/Vol] 3.6 g/dL 3.2-5.0 [facility] Serum or plasma cholesterol in HDL measurement (mass/volume)Ordered By: Eun Lloyd on 08-21-2022 Cholesterol in HDL [Mass/Vol] 80 mg/dL >40 [facility] Comment on above: The drugs N-Acetylcy steine and Metamizole may falsely depress this assay. Reference Range HDL <40 mg/dL Low HDL Cholesterol HDL >or= 60 mg/dL High HDL Cholesterol Serum or plasma cholesterol in VLDL measurement (mass/volume)Ordered By: Eun Lloyd on 08-21-2022 Cholesterol in VLDL [Mass/Vol] 34 mg/dL 5-40 [facility] Serum or plasma low density lipoprotein (LDL) cholesterol measurement (mass/volume)Ordered By: Eun Lloyd on 08-21-2022 Cholesterol in LDL [Mass/Vol] 66 mg/dL 0-130 [facility] [place] Thin prep Papanicolaou smear with manual screeningOrdered By: Eun Lloyd on 08-21-2022 Thin prep Papanicolaou smear with manual screening 30 U/L 15-37 [facility] Laboratory - CoagulationOrde red By: Dr. Babin on 07-15-2022 INR Coag (Bld) [Relative time] 3.3 {INR} [facility] Comment on above: Critical Value > 4.0 Whole blood prothrombin time Ordered By: Dr. Babin on 07-15-2022 PT Coag (Bld) [Time] 37.8 s 11.7-14.9 [facility] Basophil percentageOrdered B y: Eun Lloyd on 07-10-2022 Chloride [Moles/Vol] 106 mmol/L 98-107 [facility] Glucose [Mass/Vol] 94 mg/dL 74-106 [facility] Potassium [Moles/Vol] 4.6 mmol/L 3.5-5.1 [facility] Sodium [Moles/Vol] 139 mmol/L 136-145 [facility] WBC (Bld) [#/Vol] 6.4 10*3/uL 4.4-11.0 [facility] Blood erythrocytes count (nu mber/volume)Ordered By: Eun Lloyd on 07-10-2022 RBC (Bld) [#/Vol] 3.90 10*6/uL 4.2-5.4 [facility] Blood hemoglobin measurement (mass/volume)Ordered By: Eun Lloyd on 07-10-2022 Hemoglobin (Bld) [Mass/Vol] 13.5 g/dL 12.0-15.0 [facility] Blood platelet mean volumeOr dered By: Eun Lloyd on 07-10-2022 Platelet mean volume (Bld) [Entitic vol] 8.4 fL 6.2-12.0 [facility] Determination of erythrocyte mean corpuscular volume (MCV)Ordered By: Eun Lloyd on 07-10-2022 MCV (RBC) [Entitic vol] 106.2 fL 81-99 [facility] Hematocrit Auto (Bld) [Volum e fraction]Ordered By: Eun Lloyd on 07-10-2022 Hematocrit (Bld) [Volume fraction] 41.4 % 37-47 [facility] INR in Blood by Coagulation assayOrdered By: Eun Lloyd on 07-10-2022 INR Coag (Bld) [Relative time] 3.3 {INR} [facility] Laboratory - Chemistry and C hemistry - challengeOrdered By: Eun Lloyd on 07-10-2022 CO2 [Moles/Vol] 30.0 mmol/L 21.0-32.0 [facility] Magnesium [Mass/Vol] 2.6 mg/dL 1.6-2.6 [facility] Urea nitrogen/Creatinine [Mass ratio] 14.7 mg/mg 10-20 [facility] Laboratory - CoagulationOrde red By: Eun Lloyd on 07-10-2022 PT Coag (PPP) [Time] 33.1 s 11.7-14.9 [facility] Laboratory - Hematology and Cell countsOrdered By: Eun Lloyd on 07-10-2022 Erythrocyte distribution width (RBC) [Entitic vol] 56.5 fL 35.1-43.9 [facility] [place] Erythrocyte distribution width (RBC) [Ratio] 14.4 % 11.6-14.6 [facility] [place] MCH (RBC) [Entitic mass] 34.6 pg 27.0-32.0 [facility] [place] MCHC Auto (RBC) [Mass/Vol]Or dered By: Eun Lloyd on 07-10-2022 MCHC (RBC) [Mass/Vol] 32.6 g/dL 32-36 [facility] No Panel InformationOrdered By: Eun Lloyd on 07-10-2022 Estimated GFR (MDRD) Amer 66 mL/min >60 [facility] [place] Comment on above: GFR Calc Estimated GFR (MDRD) Non-Af Amer 55 mL/min >60 [facility] [place] Comment on above: Non- GFR Calc Thyroid Stimulating Hormone (TSH) 3.38 uIU/mL 0.358-3.74 [facility] [place] Platelets bldOrdered By: Osvaldo Lloyd on 07-10-2022 Platelets (Bld) [#/Vol] 237 10*3/uL 150-450 [facility] [place] Serum or plasma calcium caleb urement (mass/volume)Ordered By: Eun Lloyd on 07-10-2022 Calcium [Mass/Vol] 9.1 mg/dL 8.5-10.1 [facility] Serum or plasma creatinine m easurement (mass/volume)Ordered By: Eun Lloyd on 07-10-2022 Creatinine [Mass/Vol] 1.02 mg/dL 0.55-1.02 [facility] Comment on above: The validity of the calculated GFR & GFRAA in patients over 70 years has not been determined. Clinical correlation is essential. Serum or plasma urea nitroge n measurement (mass/volume)Ordered By: Eun Lloyd on 07-10-2022 Urea nitrogen [Mass/Vol] 15 mg/dL 7-18 [facility] [place] Thin prep Papanicolaou smear with manual screeningOrdered By: Eun Lloyd on 07-10-2022 Thin prep Papanicolaou smear with manual screening 3 5-15 [facility] [place] Absolute lymphocyte countOrd ered By: Britany Crandall on 06-13-2022 Lymphocytes Auto (Unsp spec) [#/Vol] 0.95 10*3/uL 0.83-4.51 [facility] [place] Basophil percentageOrdered B y: Britany Crandall on 06-13-2022 Basophils/100 WBC (Bld) 1.1 % 0-1 [facility] Chloride [Moles/Vol] 105 mmol/L 98-107 [facility] Eosinophils/100 WBC (Bld) 9.0 % 0-5 [facility] [place] Glucose [Mass/Vol] 66 mg/dL 74-106 [facility] Neutrophils (Bld) [#/Vol] 3.9 10*3/uL 2.0-7.7 [facility] [place] Neutrophils/100 WBC (Bld) 61.8 % 47-70 [facility] [place] Potassium [Moles/Vol] 4.8 mmol/L 3.5-5.1 [facility] Sodium [Moles/Vol] 140 mmol/L 136-145 [facility] WBC (Bld) [#/Vol] 6.4 10*3/uL 4.4-11.0 [facility] Blood erythrocytes count (nu mber/volume)Ordered By: Britany Crandall on 06-13-2022 RBC (Bld) [#/Vol] 3.68 10*6/uL 4.2-5.4 [facility] Blood hemoglobin measurement (mass/volume)Ordered By: Britany Crandall on 06-13-2022 Hemoglobin (Bld) [Mass/Vol] 12.3 g/dL 12.0-15.0 [facility] [place] Blood lymphocytes/100 leukoc ytesOrdered By: Britany Crandall on 06-13-2022 Lymphocytes/100 WBC (Bld) 15.0 % 19-41 [facility] [place] Blood monocytes/100 leukocyt esOrdered By: Britany Crandall on 06-13-2022 Monocytes/100 WBC (Bld) 12.6 % 0-10 [facility] Blood platelet mean volumeOr dered By: Britany Crandall on 06-13-2022 Platelet mean volume (Bld) [Entitic vol] 9.1 fL 6.2-12.0 [facility] [place] Determination of erythrocyte mean corpuscular volume (MCV)Ordered By: Britany Crandall on 06-13-2022 MCV (RBC) [Entitic vol] 106.3 fL 81-99 [facility] Hematocrit Auto (Bld) [Volum e fraction]Ordered By: Britany Crandall on 06-13-2022 Hematocrit (Bld) [Volume fraction] 39.1 % 37-47 [facility] [place] INR in Blood by Coagulation assayOrdered By: Dr. Babin on 06-13-2022 INR Coag (Bld) [Relative time] 2.8 {INR} [facility] [place] Laboratory - Chemistry and C hemistry - challengeOrdered By: Britany Crandall on 06-13-2022 CO2 [Moles/Vol] 27.0 mmol/L 21.0-32.0 [facility] [place] Magnesium [Mass/Vol] 2.4 mg/dL 1.6-2.6 [facility] Urea nitrogen/Creatinine [Mass ratio] 16.7 mg/mg 10-20 [facility] [place] Laboratory - CoagulationOrde red By: Dr. Babin on 06-13-2022 PT Coag (PPP) [Time] 29.5 s 11.7-14.9 [facility] Laboratory - Hematology and Cell countsOrdered By: Britany Crandall on 06-13-2022 Erythrocyte distribution width (RBC) [Entitic vol] 56.1 fL 35.1-43.9 [facility] [place] Erythrocyte distribution width (RBC) [Ratio] 14.3 % 11.6-14.6 [facility] [place] Immature granulocytes/100 WBC (Bld) 0.500 % 0.0-0.9 [facility] [place] Comment on above: IG% - Immature Granu locytes (promyelocytes, myelocytes and metamyelocytes) > 1% indicates that a LEFT SHIFT is Present. MCH (RBC) [Entitic mass] 33.4 pg 27.0-32.0 [facility] Nucleated RBC/100 [facility] (Bld) [[facility]] 0 % [facility] [Mass/Vol]Or dered By: Britany Crandall on 06-13-2022 MCHC (RBC) [Mass/Vol] 31.5 g/dL 32-36 [facility] No Panel InformationOrdered By: Britany Crandall on 06-13-2022 Estimated GFR (MDRD) Amer 66 mL/min >60 [facility] [place] Comment on above: GFR Calc Estimated GFR (MDRD) Non-Af Amer 55 mL/min >60 [facility] [place] Comment on above: Non- GFR Calc Platelets bldOrdered By: Kristine Crandall on 06-13-2022 Platelets (Bld) [#/Vol] 232 10*3/uL 150-450 [facility] [place] Serum or plasma calcium caleb urement (mass/volume)Ordered By: Britany Crandall on 06-13-2022 Calcium [Mass/Vol] 9.1 mg/dL 8.5-10.1 [facility] Serum or plasma creatinine m easurement (mass/volume)Ordered By: Britany Crandall on 06-13-2022 Creatinine [Mass/Vol] 1.02 mg/dL 0.55-1.02 [facility] Comment on above: The validity of the calculated GFR & GFRAA in patients over 70 years has not been determined. Clinical correlation is essential. Serum or plasma urea nitroge n measurement (mass/volume)Ordered By: Britany Crandall on 06-13-2022 Urea nitrogen [Mass/Vol] 17 mg/dL 7-18 [facility] [place] Thin prep Papanicolaou smear with manual screeningOrdered By: Britany Crandall on 06-13-2022 Thin prep Papanicolaou smear with manual screening 8 5-15 [facility] [place] INR in Blood by Coagulation assayOrdered By: Dr. Fish on 05-27-2022 INR Coag (Bld) [Relative time] 2.9 {INR} [facility] [place] Laboratory - CoagulationOrde red By: Dr. Fish on 05-27-2022 PT Coag (PPP) [Time] 29.7 s 11.7-14.9 [facility] No Panel InformationOrdered By: Dr. Fish on 05-27-2022 Thyroid Stimulating Hormone (TSH) 0.61 uIU/mL 0.358-3.74 [facility] [place] INR in Blood by Coagulation assayon 04-14-2022 INR Coag (Bld) [Relative time] 2.6 {INR} [facility] [place] Work Phone: Laboratory - Coagulationon 0 04-14-2022 PT Coag (PPP) [Time] 27.8 s 11.7-14.9 [facility] Work Phone: No Panel Informationon 04-10 Thyroid Stimulating Hormone (TSH) 10.60 uIU/mL 0.358-3.74 [facility] [place] Work Phone: [phone] INR in Blood by Coagulation assayon 04-01-2022 INR Coag (Bld) [Relative time] 2.5 {INR} [facility] [place] Work Phone: Laboratory - Coagulationon 0 04-01-2022 PT Coag (PPP) [Time] 27.0 s 11.7-14.9 [facility] Work Phone: [phone] Absolute lymphocyte counton 02-07-2022 Lymphocytes Auto (Unsp spec) [#/Vol] 1.20 10*3/uL 0.83-4.51 [facility] [place] Work Phone: Basophil percentageon 2021 Basophils/100 WBC (Bld) 1.1 % 0-1 [facility] Work Phone: Chloride [Moles/Vol] 103 mmol/L 98-107 [facility] Work Phone: Eosinophils/100 WBC (Bld) 5.3 % 0-5 [facility] [place] Work Phone: Glucose [Mass/Vol] 92 mg/dL 74-106 [facility] Work Phone: Neutrophils (Bld) [#/Vol] 3.0 10*3/uL 2.0-7.7 [facility] [place] Work Phone: [phone] Neutrophils/100 WBC (Bld) 56.7 % 47-70 [facility] [place] Work Phone: Potassium [Moles/Vol] 5.0 mmol/L 3.5-5.1 [facility] Work Phone: Sodium [Moles/Vol] 139 mmol/L 136-145 [facility] Work [facility]: WBC (Bld) [#/Vol] 5.3 10*3/uL 4.4-11.0 [facility] Work Phone: Blood erythrocytes count (nu mber/volume)on 02-07-2022 RBC (Bld) [#/Vol] 4.11 10*6/uL 4.2-5.4 [facility] Work Phone: [phone] Blood hemoglobin measurement (mass/volume)on 02-07-2022 Hemoglobin (Bld) [Mass/Vol] 13.7 g/dL 12.0-15.0 [facility] [place] Work Phone: Blood lymphocytes/100 leukoc yteson 02-07-2022 Lymphocytes/100 WBC (Bld) 22.8 % 19-41 [facility] [place] Work Phone: [phone] Blood monocytes/100 leukocyt eson 02-07-2022 Monocytes/100 WBC (Bld) 13.7 % 0-10 [facility] Work Phone: Blood platelet mean volumeon 02-07-2022 Platelet mean volume (Bld) [Entitic vol] 8.9 fL 6.2-12.0 [facility] [place] Work Phone: Determination of erythrocyte mean corpuscular volume (MCV)on 02-07-2022 MCV (RBC) [Entitic vol] 104.4 fL 81-99 [facility] Work Phone: Hematocrit Auto (Bld) [Volum e fraction]on 02-07-2022 Hematocrit (Bld) [Volume fraction] 42.9 % 37-47 [facility] [place] Work Phone: INR in Blood by Coagulation assayon 07-08-2022 INR Coag (Bld) [Relative time] 2.3 {INR} [facility] [place] Work Phone: Laboratory - Chemistry and C hemistry - challengeon 02-07-2022 CO2 [Moles/Vol] 30.0 mmol/L 21.0-32.0 [facility] Work Phone: Urea nitrogen/Creatinine [Mass ratio] 21.1 mg/mg 10-20 [facility] [place] Work Phone: Laboratory - Coagulationon 0 02-07-2022 PT Coag (PPP) [Time] 25.2 s 11.7-14.9 [facility] Work Phone: Laboratory - Hematology and Cell countson 02-07-2022 Erythrocyte distribution width (RBC) [Entitic vol] 59.8 fL 35.1-43.9 [facility] [place] Work Phone: Erythrocyte distribution width (RBC) [Ratio] 15.6 % 11.6-14.6 [facility] [place] Work Phone: Immature granulocytes/100 WBC (Bld) 0.400 % 0.0-0.9 [facility] [place] Work Phone: Comment on above: IG% - Immature Granu locytes (promyelocytes, myelocytes and metamyelocytes) > 1% indicates that a LEFT SHIFT is Present. MCH (RBC) [Entitic mass] 33.3 pg 27.0-32.0 [facility] [place] Work Phone: Nucleated RBC/100 WBC (Bld) [Ratio] 0 % 0-5 [facility] [place] Work Phone: MCHC Auto (RBC) [Mass/Vol]on 02-07-2022 MCHC (RBC) [Mass/Vol] 31.9 g/dL 32-36 [facility] Work Phone: No Panel Informationon 02-07 Estimated GFR (MDRD) Amer 42 mL/min >60 [facility] [place] Work Phone: Comment on above: GFR Calc Estimated GFR (MDRD) Non-Af Amer 35 mL/min >60 [facility] [place] Work Phone: Comment on above: Non- GFR Calc Platelets bldon 02-07-2022 Platelets (Bld) [#/Vol] 217 10*3/uL 150-450 [facility] [place] Work Phone: Serum or plasma calcium caleb urement (mass/volume)on 02-07-2022 Calcium [Mass/Vol] 9.1 mg/dL 8.5-10.1 [facility] Work Phone: Serum or plasma creatinine m easurement (mass/volume)on 02-07-2022 Creatinine [Mass/Vol] 1.52 mg/dL 0.55-1.02 [facility] Work Phone: Comment on above: The validity of the calculated GFR & GFRAA in patients over 70 years has not been determined. Clinical correlation is essential. Serum or plasma urea nitroge n measurement (mass/volume)on 02-07-2022 Urea nitrogen [Mass/Vol] 32 mg/dL 7-18 [facility] Work Phone: Thin prep Papanicolaou smear with manual screeningon 02-07-2022 Thin prep Papanicolaou smear with manual screening 6 5-15 [facility] Work Phone: INR in Blood by Coagulation assayon 01-16-2022 INR Coag (Bld) [Relative time] 3.5 {INR} [facility] Work Phone: Laboratory - Coagulationon 0 01-16-2022 PT Coag (PPP) [Time] 34.5 s 11.7-14.9 [facility] Work Phone: INR in Blood by Coagulation assayon 12-17-2021 INR Coag (Bld) [Relative time] 2.8 {INR} [facility] [place] Work Phone: Laboratory - Coagulationon 0 12-17-2021 PT Coag (PPP) [Time] 29.3 s 11.7-14.9 [facility] Work Phone: INR in Blood by Coagulation assayon 12-03-2021 INR Coag (Bld) [Relative time] 2.7 {INR} [facility] [place] Work Phone: Laboratory - Coagulationon 0 12-03-2021 PT Coag (PPP) [Time] 28.6 s 11.7-14.9 [facility] Work Phone: INR in Blood by Coagulation assayon 11-25-2021 INR Coag (Bld) [Relative time] 2.3 {INR} [facility] [place] Work Phone: Laboratory - Coagulationon 0 11-25-2021 PT Coag (PPP) [Time] 24.8 s 11.7-14.9 [facility] Work Phone: INR in Blood by Coagulation assayon 11-18-2021 INR Coag (Bld) [Relative time] 2.0 {INR} [facility] [place] Work Phone: Laboratory - Coagulationon 0 11-18-2021 PT Coag (PPP) [Time] 22.2 s 11.7-14.9 [facility] Work Phone: Basophil percentageon 2021 Bilirubin [Mass/Vol] 0.60 mg/dL 0.20-1.00 [facility] Work Phone: Comment on above: For patients on eltr ombopag therapy, use of Dimension [place] TBIL is not recommended. Cholesterol [Mass/Vol] 182 mg/dL <200 [facility] Work Phone: Comment on above: <200 mg/dL Desirable 200-240 mg/dL Borderline >240 mg/dL High Risk Protein [Mass/Vol] 7.5 g/dL 6.4-8.2 [facility] Work Phone: Triglyceride [Mass/Vol] 106 mg/dL [facility] Work Phone: Comment on above: The drugs N-Acetylcy steine and Metamizole may falsely depress this assay.Serum Triglycerides Reference Interval Normal <150 mg/dL Borderline high 150 - 199 mg/dL High 200 - 499 mg/dL Very High > or = 500 mg/dL Direct bilirubinon 2 Bilirubin.direct [Mass/Vol] 0.18 mg/dL 0.00-0.30 [facility] [place] Work Phone: INR in Blood by Coagulation assayon 10-28-2021 INR Coag (Bld) [Relative time] 3.3 {INR} [facility] Work Phone: Laboratory - Chemistry and C hemistry - challengeon 10-28-2021 ALP [Catalytic activity/Vol] 92 U/L 45-117 [facility] [place] Work Phone: ALT [Catalytic activity/Vol] 30 U/L 13-56 [facility] Work Phone: Globulin (S) [Mass/Vol] 3.9 g/dL 2.2-4.2 [facility] Work Phone: Laboratory - Coagulationon 0 10-28-2021 PT Coag (PPP) [Time] 32.5 s 11.7-14.9 [facility] Work Phone: Serum or plasma albumin caleb urement (mass/volume)on 10-28-2021 Albumin [Mass/Vol] 3.6 g/dL 3.2-5.0 [facility] Work Phone: Serum or plasma cholesterol in HDL measurement (mass/volume)on 10-28-2021 Cholesterol in HDL [Mass/Vol] 79 mg/dL [facility] Work Phone: Comment on above: The drugs N-Acetylcy steine and Metamizole may falsely depress this assay. Reference Range HDL <40 mg/dL Low HDL Cholesterol HDL >or= 60 mg/dL High HDL Cholesterol Serum or plasma cholesterol in VLDL measurement (mass/volume)on 10-28-2021 Cholesterol in VLDL [Mass/Vol] 21 mg/dL 5-40 [facility] [place] Work Phone: Serum or plasma low density lipoprotein (LDL) cholesterol measurement (mass/volume)on 10-28-2021 Cholesterol in LDL [Mass/Vol] 82 mg/dL 0-130 [facility] [place] Work Phone: Thin prep Papanicolaou smear with manual screeningon 10-28-2021 Thin prep Papanicolaou smear with manual screening 31 U/L 15-37 [facility] Work Phone: Basophil percentageon 2021 Basophil percentage >100 SEEN /hpf [facility] Work Phone: Bilirubin Test strip Ql (U)o n 10-08-2021 Bilirubin Ql (U) Negative Negative [facility] Work Phone: Culture, urineon 10-08-2021 Bacteria identified Cx Nom (U) Presumptive E. coli [facility] Work Phone: INR in Blood by Coagulation assayon 10-08-2021 INR Coag (Bld) [Relative time] 3.3 {INR} [facility] [place] Work Phone: Ketones Test strip Ql (U)on 10-08-2021 Ketones Ql (U) 5 mg/dl Negative [facility] [place] Work Phone: Laboratory - Coagulationon 0 10-08-2021 PT Coag (PPP) [Time] 32.8 s 11.7-14.9 [facility] Work Phone: Mucus LM Ql (Urine sed)on Mucus Ql (Urine sed) 0 SEEN /hpf [facility] Work Phone: Nitrite Test strip Ql (U)on 10-08-2021 Nitrite Ql (U) Negative Negative [facility] Work Phone: Protein Test strip Ql (U)on 10-08-2021 Protein Ql (U) 30 mg/dl Negative [facility] Work Phone: Squamous epithelial cells de tection in urine sediment by light microscopyon 10-08-2021 Epithelial cells.squamous LM Ql (Urine sed) 0 SEEN /hpf [facility] Work Phone: Urine blood detectionon RBC Ql (U) 25 /ul Negative [facility] Work Phone: RBC Ql (U) 0 SEEN /hpf [facility] Work Phone: Urine clarityon 10-08-2021 Clarity (U) Cloudy Clear [facility] Work Phone: Urine color determinationon 10-08-2021 Color (U) Yellow Yellow [facility] Work Phone: Urine glucose detectionon Glucose Ql (U) Normal mg/dl Normal [facility] Work Phone: Urine leukocyte esterase det ection by dipstickon 10-08-2021 Leukocyte esterase Test strip Ql (U) 500 /ul Negative [facility] Work Phone: Urine pHon 10-08-2021 pH (U) 7.0 [pH] [facility] Work Phone: Urine sediment bacteria coun t by microscopy (number/high power field)on 10-08-2021 Bacteria LM.HPF (Urine sed) [#/Area] 4 /[HPF] None Seen [facility] Work Phone: Urine specific gravity measu rementon 10-08-2021 Specific gravity (U) [Rel density] 1.010 [facility] Work Phone: Urobilinogen Auto test strip Ql (U)on 10-08-2021 Urobilinogen Ql (U) 1 mg/dl Normal [facility] Work Phone: INR in Blood by Coagulation assayon 09-26-2021 INR Coag (Bld) [Relative time] 3.7 {INR} [facility] [place] Work Phone: Laboratory - Coagulationon 0 09-26-2021 PT Coag (PPP) [Time] 35.6 s 11.7-14.9 [facility] Work Phone: Whole blood prothrombin time on 09-26-2021 PT Coag (Bld) [Time] 50.6 s 11.9-14.4 [facility] Work Phone: No Panel Informationon 09-19 SARS-CoV-2 Antigen (Rapid) [facility] Work Phone: Absolute lymphocyte counton 09-18-2021 Lymphocytes Auto (Unsp spec) [#/Vol] 0.52 10*3/uL 0.83-4.51 [facility] Work Phone: Basophil percentageon 2021 Basophils/100 WBC (Bld) 0.8 % 0-1 [facility] Work Phone: Chloride [Moles/Vol] 103 mmol/L 98-107 [facility] Work [facility]: Eosinophils/100 WBC (Bld) 7.7 % 0-5 [facility] Work Phone: Glucose [Mass/Vol] 85 mg/dL 74-106 [facility] Work Phone: Neutrophils (Bld) [#/Vol] 3.2 10*3/uL 2.0-7.7 [facility] Work Phone: Neutrophils/100 WBC (Bld) 65.2 % 47-70 [facility] [place] Work Phone: Potassium [Moles/Vol] 3.7 mmol/L 3.5-5.1 [facility] Work Phone: Sodium [Moles/Vol] 136 mmol/L 136-145 [facility] Work Phone: WBC (Bld) [#/Vol] 5.0 10*3/uL 4.4-11.0 [facility] Work Phone: [phone] Blood erythrocytes count (nu mber/volume)on 09-18-2021 RBC (Bld) [#/Vol] 2.93 10*6/uL 4.2-5.4 [facility] Work Phone: Blood hemoglobin measurement (mass/volume)on 09-18-2021 Hemoglobin (Bld) [Mass/Vol] 9.9 g/dL 12.0-15.0 [facility] Work Phone: Blood lymphocytes/100 leukoc yteson 09-18-2021 Lymphocytes/100 WBC (Bld) 10.5 % 19-41 [facility] Work Phone: Blood manual differential co mment interpretation (narrative result)on 09-18-2021 Manual differential comment Tomi (Bld) [Interp] SCANNED [facility] Work Phone: Comment on above: LYMPHOPENIA NOTED Blood monocytes/100 leukocyt eson 09-18-2021 Monocytes/100 WBC (Bld) 15.2 % 0-10 [facility] Work Phone: Blood platelet mean volumeon 09-18-2021 Platelet mean volume (Bld) [Entitic vol] 8.3 fL 6.2-12.0 [facility] Work Phone: Determination of erythrocyte mean corpuscular volume (MCV)on 09-18-2021 MCV (RBC) [Entitic vol] 102.0 fL 81-99 [facility] Work Phone: Hematocrit Auto (Bld) [Volum e fraction]on 09-18-2021 Hematocrit (Bld) [Volume fraction] 29.9 % 37-47 [facility] [place] Work Phone: Laboratory - Chemistry and C hemistry - challengeon 09-18-2021 CO2 [Moles/Vol] 27.0 mmol/L 21.0-32.0 [facility] Work Phone: Urea nitrogen/Creatinine [Mass ratio] 17.2 mg/mg 10-20 [facility] Work Phone: Laboratory - Hematology and Cell countson 09-18-2021 Anisocytosis Ql (Bld) 1+ [facility] Work Phone: Erythrocyte distribution width (RBC) [Entitic vol] 68.2 fL 35.1-43.9 [facility] [place] Work Phone: Erythrocyte distribution width (RBC) [Ratio] 17.9 % 11.6-14.6 [facility] Work Phone: Immature granulocytes/100 WBC (Bld) 0.600 % 0.0-0.9 [facility] Work Phone: Comment on above: IG% - Immature Granu locytes (promyelocytes, myelocytes and metamyelocytes) > 1% indicates that a LEFT SHIFT is Present. MCH (RBC) [Entitic mass] 33.8 pg 27.0-32.0 [facility] [place] Work Phone: Nucleated RBC/100 WBC (Bld) [Ratio] 0 % 0-5 [facility] [place] Work Phone: MCHC Auto (RBC) [Mass/Vol]on 09-18-2021 MCHC (RBC) [Mass/Vol] 33.1 g/dL 32-36 [facility] Work Phone: Macrocytes detectionon 09-18 Macrocytes Ql (Bld) 1+ [facility] Work Phone: No Panel Informationon 09-18 Estimated Creatinine Clearance Calc 44.61 ml/min [facility] [place] Work Phone: Estimated GFR (MDRD) Amer 74 mL/min >60 [facility] [place] Work Phone: Comment on above: GFR Calc Estimated GFR (MDRD) Non-Af Amer 61 mL/min >60 [facility] [place] Work Phone: Comment on above: Non- GFR Calc Platelets bldon 09-18-2021 Platelets (Bld) [#/Vol] 297 10*3/uL 150-450 [facility] [place] Work Phone: Serum or plasma calcium caleb urement (mass/volume)on 09-18-2021 Calcium [Mass/Vol] 7.8 mg/dL 8.5-10.1 [facility] Work Phone: Serum or plasma creatinine m easurement (mass/volume)on 09-18-2021 Creatinine [Mass/Vol] 0.93 mg/dL 0.55-1.02 [facility] Work Phone: Comment on above: The validity of the calculated GFR & GFRAA in patients over 70 years has not been determined. Clinical correlation is essential. Serum or plasma urea nitroge n measurement (mass/volume)on 09-18-2021 Urea nitrogen [Mass/Vol] 16 mg/dL 7-18 [facility] Work Phone: Thin prep Papanicolaou smear with manual screeningon 09-18-2021 Thin prep Papanicolaou smear with manual screening 6 5-15 [facility] [place] Work Phone: INR in Blood by Coagulation assayon 09-17-2021 INR Coag (Bld) [Relative time] 2.7 {INR} [facility] [place] Work Phone: Laboratory - Coagulationon 0 09-17-2021 PT Coag (PPP) [Time] 28.2 s 11.7-14.9 [facility] Work Phone: Basophil percentageon 2021 Chloride [Moles/Vol] 103 mmol/L 98-107 [facility] Work Phone: Glucose [Mass/Vol] 128 mg/dL 74-106 [facility] Work Phone: Comment on above: Fasting Glucose resu lt greater than or equal to 126 mg/dL suggests DIABETES MELLITUS per A.D.A. criteria. Potassium [Moles/Vol] 4.0 mmol/L 3.5-5.1 [facility] Work Phone: Sodium [Moles/Vol] 139 mmol/L 136-145 [facility] Work Phone: WBC (Bld) [#/Vol] 5.8 10*3/uL 4.4-11.0 [facility] Work Phone: Blood erythrocytes count (nu mber/volume)on 08-28-2021 RBC (Bld) [#/Vol] 4.19 10*6/uL 4.2-5.4 [facility] Work Phone: Blood hemoglobin measurement (mass/volume)on 08-28-2021 Hemoglobin (Bld) [Mass/Vol] 13.8 g/dL 12.0-15.0 [facility] [place] Work Phone: Blood platelet mean volumeon 08-28-2021 Platelet mean volume (Bld) [Entitic vol] 8.6 fL 6.2-12.0 [facility] [place] Work Phone: Determination of erythrocyte mean corpuscular volume (MCV)on 08-28-2021 MCV (RBC) [Entitic vol] 101.7 fL 81-99 [facility] Work Phone: Hematocrit Auto (Bld) [Volum e fraction]on 08-28-2021 Hematocrit (Bld) [Volume fraction] 42.6 % 37-47 [facility] [place] Work Phone: INR in Blood by Coagulation assayon 08-28-2021 INR Coag (Bld) [Relative time] 2.5 {INR} [facility] [place] Work Phone: Laboratory - Chemistry and C hemistry - challengeon 08-28-2021 CO2 [Moles/Vol] 27.0 mmol/L 21.0-32.0 [facility] [place] Work Phone: Urea nitrogen/Creatinine [Mass ratio] 16.3 mg/mg 10-20 [facility] [place] Work Phone: Laboratory - Coagulationon 0 08-28-2021 PT Coag (PPP) [Time] 26.2 s 11.7-14.9 [facility] Work Phone: Laboratory - Hematology and Cell countson 08-28-2021 Erythrocyte distribution width (RBC) [Entitic vol] 57.9 fL 35.1-43.9 [facility] [place] Work Phone: Erythrocyte distribution width (RBC) [Ratio] 15.3 % 11.6-14.6 [facility] [place] Work Phone: MCH (RBC) [Entitic mass] 32.9 pg 27.0-32.0 [facility] [place] Work Phone: MCHC Auto (RBC) [Mass/Vol]on 08-28-2021 MCHC (RBC) [Mass/Vol] 32.4 g/dL 32-36 [facility] Work Phone: No Panel Informationon 08-28 Estimated Creatinine Clearance Calc 33.73 ml/min [facility] [place] Work Phone: Estimated GFR (MDRD) Amer 53 mL/min >60 [facility] [place] Work Phone: Comment on above: GFR Calc Estimated GFR (MDRD) Non-Af Amer 44 mL/min >60 [facility] [place] Work Phone: Comment on above: Non- GFR Calc Platelets bldon 08-28-2021 Platelets (Bld) [#/Vol] 203 10*3/uL 150-450 [facility] [place] Work Phone: Serum or plasma calcium caelb urement (mass/volume)on 08-28-2021 Calcium [Mass/Vol] 8.9 mg/dL 8.5-10.1 [facility] Work Phone: Serum or plasma creatinine m easurement (mass/volume)on 08-28-2021 Creatinine [Mass/Vol] 1.23 mg/dL 0.55-1.02 [facility] Work Phone: Comment on above: The validity of the calculated GFR & GFRAA in patients over 70 years has not been determined. Clinical correlation is essential. Serum or plasma urea nitroge n measurement (mass/volume)on 08-28-2021 Urea nitrogen [Mass/Vol] 20 mg/dL 7-18 [facility] [place] Work Phone: Thin prep Papanicolaou smear with manual screeningon 08-28-2021 Thin prep Papanicolaou smear with manual screening 9 5-15 [facility] [place] Work Phone: INR in Blood by Coagulation assayon 08-05-2021 INR Coag (Bld) [Relative time] 3.0 {INR} [facility] [place] Work Phone: Laboratory - Coagulationon 0 08-05-2021 PT Coag (PPP) [Time] 30.5 s 11.7-14.9 [facility] Work Phone: Vital Signs Date Time Vital Sign Value Performing Clinician Tigre miller 05-30-2025 08:28-0400 Heart rate 61 /min Dr. Radha Fish MD Work Phone: [facility] [place] 05-30-2025 08:24-0400 Body temperature 96.9 [degF] Dr. Radha Fish MD Work Phone: [facility] [place] 05-30-2025 08:24-0400 Diastolic blood pressure 72 mm[Hg] Dr. Radha Fish MD Work Phone: [facility] [place] 05-30-2025 08:24-0400 Respiratory rate 17 /min Dr. Radha Fish MD Work Phone: [facility] [place] 05-30-2025 08:24-0400 SaO2% (BldA) [Mass fraction] 97 % Dr. Radha Fish MD Work Phone: [facility] [place] 05-30-2025 08:24-0400 Systolic blood pressure 102 mm[Hg] Dr. Radha Fish MD Work Phone: [facility] [place] 05-29-2025 22:00-0400 Diastolic blood pressure 55 mm[Hg] Dr. Radha Fish MD Work Phone: [facility] [place] 05-29-2025 22:00-0400 Heart rate 70 /min Dr. Radha Fish MD Work Phone: [facility] [place] 05-29-2025 22:00-0400 Respiratory rate 16 /min Dr. Radha Fish MD Work Phone: [facility] [place] 05-29-2025 22:00-0400 SaO2% (BldA) [Mass fraction] 97 % Dr. Radha Fish MD Work Phone: [facility] [place] 05-29-2025 22:00-0400 Systolic blood pressure 102 mm[Hg] Dr. Radha Fish MD Work Phone: [facility] [place] 05-29-2025 10:36-0400 Body temperature 96.5 [degF] Dr. Radha Fish MD Work Phone: [facility] [place] 05-24-2025 12:06-0400 Body height 172.[address] Radha Fish MD Work Phone: [facility] [place] 05-24-2025 12:06-0400 Body weight 77.[address] Radha Fish MD Work Phone: [facility] [place] 05-17-2025 19:01-0400 Body mass index (BMI) [Ratio] 25.8 kg/m2 Dr. Radha Fish MD Work Phone: [facility] [place] 05-17-2025 16:22-0400 Body temperature 97.5 [degF] Dr. Radha Fish MD Work Phone: [facility] [place] 05-17-2025 16:22-0400 Diastolic blood pressure 74 mm[Hg] Dr. Radha Fish MD Work Phone: [facility] [place] 05-17-2025 16:22-0400 Heart rate 68 /min Dr. Radha Fish MD Work Phone: [facility] [place] 05-17-2025 16:22-0400 Respiratory rate 16 /min Dr. Radha Fish MD Work Phone: [facility] [place] 05-17-2025 16:22-0400 SaO2% (BldA) [Mass fraction] 97 % Dr. Radha Fish MD Work Phone: [facility] [place] 05-17-2025 16:22-0400 Systolic blood pressure 101 mm[Hg] Dr. Radha Fish MD Work Phone: [facility] [place] 05-17-2025 06:00-0400 Body mass index (BMI) [Ratio] 25.2 kg/m2 Dr. Radha Fish MD Work Phone: [facility] [place] 05-17-2025 06:00-0400 Body weight 75.[address] Radha Fish MD Work Phone: [facility] [place] 05-09-2025 13:13-0400 Body height 172.[address] Radha Fish MD Work Phone: [facility] [place] 05-09-2025 13:13-0400 Body mass index (BMI) [Ratio] 24 kg/m2 Dr. Radha Fish MD Work Phone: [facility] [place] 05-09-2025 13:13-0400 Body temperature 96.7 [degF] Dr. Radha Fish MD Work Phone: [facility] [place] 05-09-2025 13:13-0400 Body weight 71.[address] Radha Fish MD Work Phone: [facility] [place] 05-09-2025 13:13-0400 Diastolic blood pressure 64 mm[Hg] Dr. Radha Fish MD Work Phone: [facility] [place] 05-09-2025 13:13-0400 Heart rate 76 /min Dr. Radha Fish MD Work Phone: [facility] [place] 05-09-2025 13:13-0400 Respiratory rate 16 /min Dr. Radha Fish MD Work Phone: [facility] [place] 05-09-2025 13:13-0400 SaO2% (BldA) [Mass fraction] 98 % Dr. Radha Fish MD Work Phone: [facility] [place] 05-09-2025 13:13-0400 Systolic blood pressure 92 mm[Hg] Dr. Radha Fish MD Work Phone: [facility] [place] 04-14-2025 07:36-0400 Body mass index (BMI) [Ratio] 24 kg/m2 Dr. Radha Fish MD Work Phone: [facility] [place] 04-14-2025 07:36-0400 Body weight 71.[address] Radha Fish MD Work Phone: [facility] [place] 04-14-2025 07:36-0400 Diastolic blood pressure 64 mm[Hg] Dr. Radha Fish MD Work Phone: [facility] [place] 04-14-2025 07:36-0400 Heart rate 80 /min Dr. Radha Fish MD Work Phone: [facility] [place] 04-14-2025 07:36-0400 Respiratory rate 18 /min Dr. Radha Fish MD Work Phone: [facility] [place] 04-14-2025 07:36-0400 SaO2% (BldA) [Mass fraction] 97 % Dr. Radha Fish MD Work Phone: [facility] [place] 04-14-2025 07:36-0400 Systolic blood pressure 97 mm[Hg] Dr. Radha Fish MD Work Phone: [facility] [place] 04-09-2025 11:16-0400 Body height 172.[address] Radha Fish MD Work Phone: [facility] [place] 04-09-2025 11:16-0400 Body mass index (BMI) [Ratio] 23.4 kg/m2 Dr. Radha Fish MD Work Phone: [facility] [place] 04-09-2025 11:16-0400 Body temperature 98.6 [degF] Dr. Radha Fish MD Work Phone: [facility] [place] 04-09-2025 11:16-0400 Body weight 69.[address] Radha Fish MD Work Phone: [facility] [place] 04-09-2025 11:16-0400 Diastolic blood pressure 66 mm[Hg] Dr. Radha Fish MD Work Phone: [facility] [place] 04-09-2025 11:16-0400 Heart rate 70 /min Dr. Radha Fish MD Work Phone: [facility] [place] 04-09-2025 11:16-0400 Respiratory rate 15 /min Dr. Radha Fish MD Work Phone: [facility] [place] 04-09-2025 11:16-0400 SaO2% (BldA) [Mass fraction] 98 % Dr. Radha Fish MD Work Phone: [facility] [place] 04-09-2025 11:16-0400 Systolic blood pressure 102 mm[Hg] Dr. Radha iFsh MD Work Phone: [facility] [place] 03-01-2025 12:14-0400 Body mass index (BMI) [Ratio] 22.5 kg/m2 Dr. Radha Fish MD Work Phone: [facility] [place] 03-01-2025 12:14-0400 Body temperature 96.4 [degF] Dr. Radha Fish MD Work Phone: [facility] [place] 03-01-2025 12:14-0400 Body weight 67.[address] Radha Fish MD Work Phone: [facility] [place] 03-01-2025 12:14-0400 Diastolic blood pressure 82 mm[Hg] Dr. Radha Fish MD Work Phone: [facility] [place] 03-01-2025 12:14-0400 Heart rate 87 /min Dr. Radha Fish MD Work Phone: [facility] [place] 03-01-2025 12:14-0400 Respiratory rate 16 /min Dr. Radha Fish MD Work Phone: [facility] [place] 03-01-2025 12:14-0400 SaO2% (BldA) [Mass fraction] 97 % Dr. Radha Fish MD Work Phone: [facility] [place] 03-01-2025 12:14-0400 Systolic blood pressure 124 mm[Hg] Dr. Radha Fish MD Work Phone: [facility] [place] 03-01-2025 11:07-0400 Body height 172.[address] Radha Fish MD Work Phone: [facility] [place] 03-01-2025 11:07-0400 Body mass index (BMI) [Ratio] 22.8 kg/m2 Dr. Radha Fish MD Work Phone: [facility] [place] 03-01-2025 11:07-0400 Body temperature 97 [degF] Dr. Radha Fish MD Work Phone: [facility] [place] 03-01-2025 11:07-0400 Body weight 68.[address] Radha Fish MD Work Phone: [facility] [place] 03-01-2025 11:07-0400 Diastolic blood pressure 84 mm[Hg] Dr. Radha Fish MD Work Phone: [facility] [place] 03-01-2025 11:07-0400 Heart rate 69 /min Dr. Radha Fish MD Work Phone: [facility] [place] 03-01-2025 11:07-0400 Respiratory rate 16 /min Dr. Radha Fish MD Work Phone: [facility] [place] 03-01-2025 11:07-0400 SaO2% (BldA) [Mass fraction] 95 % Dr. Radha Fish MD Work Phone: [facility] [place] 03-01-2025 11:07-0400 Systolic blood pressure 118 mm[Hg] Dr. Radha Fish MD Work Phone: [facility] [place] 02-23-2025 11:23-0400 Body height 172.[address] Radha Fish MD Work Phone: [facility] [place] 02-23-2025 11:23-0400 Body mass index (BMI) [Ratio] 25.4 kg/m2 Dr. Radha Fish MD Work Phone: [facility] [place] 02-23-2025 11:23-0400 Body temperature 96.5 [degF] Dr. Radha Fish MD Work Phone: [facility] [place] 02-23-2025 11:23-0400 Body weight 75.[address] Radha Fish MD Work Phone: [facility] [place] 02-23-2025 11:23-0400 Diastolic blood pressure 74 mm[Hg] Dr. Radha Fish MD Work Phone: [facility] [place] 02-23-2025 11:23-0400 Heart rate 83 /min Dr. Radha Fish MD Work Phone: [facility] [place] 02-23-2025 11:23-0400 Respiratory rate 16 /min Dr. Radha Fish MD Work Phone: [facility] [place] 02-23-2025 11:23-0400 SaO2% (BldA) [Mass fraction] 95 % Dr. Radha Fish MD Work Phone: [facility] [place] 02-23-2025 11:23-0400 Systolic blood pressure 120 mm[Hg] Dr. Radha Fish MD Work Phone: [facility] [place] 02-22-2025 13:01-0400 Body height 172.[address] Radha Fish MD Work Phone: [facility] [place] 02-22-2025 13:01-0400 Body mass index (BMI) [Ratio] 25.2 kg/m2 Dr. Radha Fish MD Work Phone: [facility] [place] 02-22-2025 13:01-0400 Body weight 75.[address] Radha Fish MD Work Phone: [facility] [place] 02-22-2025 13:01-0400 Diastolic blood pressure 75 mm[Hg] Dr. Radha Fish MD Work Phone: [facility] [place] 02-22-2025 13:01-0400 Heart rate 71 /min Dr. Radha Fish MD Work Phone: [facility] [place] 02-22-2025 13:01-0400 Respiratory rate 16 /min Dr. Radha Fish MD Work Phone: [facility] [place] 02-22-2025 13:01-0400 Systolic blood pressure 116 mm[Hg] Dr. Radha Fish MD Work Phone: [facility] [place] 01-31-2025 00:10-0400 Body temperature 98 [degF] Dr. Radha Fish MD Work Phone: [facility] [place] 01-31-2025 00:10-0400 Diastolic blood pressure 74 mm[Hg] Dr. Radha Fish MD Work Phone: [facility] [place] 01-31-2025 00:10-0400 Heart rate 91 /min Dr. Radha Fish MD Work Phone: [facility] [place] 01-31-2025 00:10-0400 Respiratory rate 20 /min Dr. Radha Fish MD Work Phone: [facility] [place] 01-31-2025 00:10-0400 SaO2% (BldA) [Mass fraction] 95 % Dr. Radha Fish MD Work Phone: [facility] [place] 01-31-2025 00:10-0400 Systolic blood pressure 109 mm[Hg] Dr. Radha Fish MD Work Phone: [facility] [place] 01-30-2025 19:40-0400 Body mass index (BMI) [Ratio] 24.6 kg/m2 Dr. Rdaha Fish MD Work Phone: [facility] [place] 01-30-2025 19:40-0400 Body weight 73.[address] Radha Fish MD Work Phone: [facility] [place] 01-30-2025 19:20-0400 Body height 172.[address] Radha Fish MD Work Phone: [facility] [place] 01-05-2025 09:29-0400 Body height 172.[address] Radha Fish MD Work Phone: [facility] [place] 01-05-2025 09:29-0400 Body mass index (BMI) [Ratio] 22.6 kg/m2 Dr. Radha Fish MD Work Phone: [facility] [place] 01-05-2025 09:29-0400 Body weight 67.[address] Radha Fish MD Work Phone: [facility] [place] 01-05-2025 09:29-0400 Diastolic blood pressure 64 mm[Hg] Dr. Radha Fish MD Work Phone: [facility] [place] 01-05-2025 09:29-0400 Heart rate 56 /min Dr. Radha Fish MD Work Phone: [facility] [place] 01-05-2025 09:29-0400 Respiratory rate 18 /min Dr. Radha Fish MD Work Phone: [facility] [place] 01-05-2025 09:29-0400 Systolic blood pressure 105 mm[Hg] Dr. Radha Fish MD Work Phone: [facility] [place] 12-31-2024 20:50-0400 Body mass index (BMI) [Ratio] 24 kg/m2 Dr. Radha Fish MD Work Phone: [facility] [place] 12-01-2024 00:27-0400 Body mass index (BMI) [Ratio] 24 kg/m2 Dr. Radha Fish MD Work Phone: [facility] [place] 11-01-2024 00:13-0400 Body mass index (BMI) [Ratio] 24 kg/m2 Dr. Radha Fish MD Work Phone: [facility] [place] 10-26-2024 11:05-0400 Body height 172.[address] Radha Fish MD Work Phone: [facility] [place] 10-26-2024 08:39-0400 Body mass index (BMI) [Ratio] 22 kg/m2 Dr. Radha Fish MD Work Phone: [facility] [place] 10-26-2024 08:39-0400 Body weight 65.[address] Radha Fish MD Work Phone: [facility] [place] 10-26-2024 08:39-0400 Diastolic blood pressure 65 mm[Hg] Dr. Radha Fish MD Work Phone: [facility] [place] 10-26-2024 08:39-0400 Heart rate 62 /min Dr. Radha Fish MD Work Phone: [facility] [place] 10-26-2024 08:39-0400 Respiratory rate 18 /min Dr. Radha Fish MD Work Phone: [facility] [place] 10-26-2024 08:39-0400 SaO2% (BldA) [Mass fraction] 92 % Dr. Radha Fish MD Work Phone: [facility] [place] 10-26-2024 08:39-0400 Systolic blood pressure 108 mm[Hg] Dr. Radha Fish MD Work Phone: [facility] [place] 10-01-2024 00:39-0500 Body mass index (BMI) [Ratio] 24 kg/m2 Dr. Radha Fish MD Work Phone: [facility] [place] 09-03-2024 00:45-0500 Body mass index (BMI) [Ratio] 24 kg/m2 Dr. Radha Fish MD Work Phone: [facility] [place] 09-01-2024 14:13-0500 Body mass index (BMI) [Ratio] 22.2 kg/m2 Dr. Radha Fish MD Work Phone: [facility] [place] 09-01-2024 14:13-0500 Body temperature 96.2 [degF] Dr. Radha Fish MD Work Phone: [facility] [place] 09-01-2024 14:13-0500 Body weight 66.[address] Radha Fish MD Work Phone: [facility] [place] 09-01-2024 14:13-0500 Diastolic blood pressure 62 mm[Hg] Dr. Radha Fish MD Work Phone: [facility] [place] 09-01-2024 14:13-0500 Heart rate 82 /min Dr. Radha Fish MD Work Phone: [facility] [place] 09-01-2024 14:13-0500 Respiratory rate 16 /min Dr. Radha Fish MD Work Phone: [facility] [place] 09-01-2024 14:13-0500 SaO2% (BldA) [Mass fraction] 94 % Dr. Radha Fish MD Work Phone: [facility] [place] 09-01-2024 14:13-0500 Systolic blood pressure 102 mm[Hg] Dr. Radha Fish MD Work Phone: [facility] [place] 08-03-2024 00:20-0500 Body mass index (BMI) [Ratio] 24 kg/m2 Dr. Radha Fish MD Work Phone: [facility] [place] 07-03-2024 00:38-0500 Body mass index (BMI) [Ratio] 24 kg/m2 Dr. Radha Fish MD Work Phone: [facility] [place] 03-01-2024 15:19-0400 Body height 172.7 cm Reno Dukes MD Work Phone: [facility] 03-01-2024 15:19-0400 Body mass index (BMI) [Ratio] 21.93 kg/m2 Reno Dukes MD Work Phone: [facility] 03-01-2024 15:19-0400 Body weight 65.41 kg Reno Dukes MD Work Phone: [facility] 03-01-2024 15:19-0400 Diastolic blood pressure 85 mm[Hg] Reno Dukes MD Work Phone: [facility] 03-01-2024 15:19-0400 Heart rate 67 /min Reno Dukes MD Work Phone: [facility] 03-01-2024 15:19-0400 SaO2% (BldA) [Mass fraction] 97 % Reno Dukes MD Work Phone: [facility] 03-01-2024 15:19-0400 Systolic blood pressure 118 mm[Hg] Reno Dukes MD Work Phone: [facility] 12-24-2023 12:21-0400 Body height 172.7 cm Danny Edmond MD Work Phone: [facility] 12-24-2023 12:21-0400 Body mass index (BMI) [Ratio] 22.81 kg/m2 Danny Edmond MD Work Phone: [facility] 12-24-2023 12:21-0400 Body weight 68.04 kg Danny Edmond MD Work Phone: [facility] 12-24-2023 12:21-0400 Diastolic blood pressure 76 mm[Hg] Danny Edmond MD Work Phone: [facility] 12-24-2023 12:21-0400 Heart rate 89 /min Danny Edmond MD Work Phone: [facility] 12-24-2023 12:21-0400 Systolic blood pressure 131 mm[Hg] Danny Edmond MD Work Phone: [facility] 11-17-2023 12:47-0400 Body height 172.[address] Radha Fish Work Phone: [facility] 11-17-2023 12:47-0400 Body weight 68.[address] Radha Fish Work Phone: [facility] 11-17-2023 12:47-0400 Heart rate 90 /min Dr. Radha Fish Work Phone: [facility] 11-17-2023 12:47-0400 SaO2% (BldA) [Mass fraction] 96 % Dr. Radha Fish Work Phone: [facility] 10-31-2023 22:08-0400 Body mass index (BMI) [Ratio] 24 kg/m2 Dr. Radha Fish Work Phone: [phone] [place] [address] 10-01-2023 22:27-0500 Body mass index (BMI) [Ratio] 24 kg/m2 Dr. Radha Fish Work Phone: [facility] 09-02-2023 21:54-0500 Body mass index (BMI) [Ratio] 24 kg/m2 Dr. Radha Fish Work Phone: [facility] 08-03-2023 00:26-0500 Body mass index (BMI) [Ratio] 24 kg/m2 Dr. Radha Fish Work Phone: [facility] 07-21-2023 10:23-0500 Body height 172.[address] Radha Fish Work Phone: [facility] 07-21-2023 10:15-0500 Body mass index (BMI) [Ratio] 23.1 kg/m2 Dr. Radha Fish Work Phone: [facility] 07-21-2023 10:15-0500 Body weight 68.[address] Radha Fish Work Phone: [facility] 07-21-2023 10:15-0500 Diastolic blood pressure 70 mm[Hg] Dr. Radha Fish Work Phone: [facility] 07-21-2023 10:15-0500 Heart rate 120 /min Dr. Radha Fish Work Phone: [facility] 07-21-2023 10:15-0500 Respiratory rate 18 /min Dr. Radha Fish Work Phone: [facility] 07-21-2023 10:15-0500 SaO2% (BldA) [Mass fraction] 95 % Dr. Radha Fish Work Phone: [facility] 07-21-2023 10:15-0500 Systolic blood pressure 120 mm[Hg] Dr. Radha Fish Work Phone: [facility] 07-15-2023 14:10-0500 Body mass index (BMI) [Ratio] 23.2 kg/m2 Dr. Radha Fish Work Phone: [facility] 07-15-2023 14:10-0500 Body temperature 97.1 [degF] Dr. Radha Fish Work Phone: [facility] 07-15-2023 14:10-0500 Body weight 69.[address] Radha Fish Work Phone: [facility] 07-15-2023 14:10-0500 Diastolic blood pressure 70 mm[Hg] Dr. Radha Fish Work Phone: [facility] [place] 07-15-2023 14:10-0500 Heart rate 114 /min Dr. Radha Fish Work Phone: [facility] 07-15-2023 14:10-0500 Respiratory rate 16 /min Dr. Radha Fish Work Phone: [facility] 07-15-2023 14:10-0500 SaO2% (BldA) [Mass fraction] 95 % Dr. Radha Fish Work Phone: [facility] [place] 07-15-2023 14:10-0500 Systolic blood pressure 118 mm[Hg] Dr. Radha Fish Work Phone: [facility] [place] 07-03-2023 03:25-0500 Body mass index (BMI) [Ratio] 24 kg/m2 Dr. Radha Fish Work Phone: [facility] [place] 06-02-2023 23:21-0400 Body mass index (BMI) [Ratio] 24 kg/m2 Dr. Radha Fish Work Phone: [facility] [place] 05-03-2023 01:57-0400 Body mass index (BMI) [Ratio] 24 kg/m2 [facility] 04-03-2023 00:37-0400 Body mass index (BMI) [Ratio] 24 kg/m2 Dr. Radha Fish Work Phone: [facility] 03-03-2023 00:38-0400 Body mass index (BMI) [Ratio] 24 kg/m2 Dr. Radha Fihs Work Phone: [facility] 02-12-2023 10:25-0400 Body height 172.[address] Radha Fish Work Phone: [facility] 01-31-2023 01:37-0400 Body mass index (BMI) [Ratio] 24 kg/m2 Dr. Radha Fish Work Phone: [facility] [place] 01-28-2023 10:04-0400 Body mass index (BMI) [Ratio] 22.8 kg/m2 Dr. Radha Fish Work Phone: [facility] 01-28-2023 10:04-0400 Body weight 68.[address] Radha Fish Work Phone: [facility] 01-28-2023 10:04-0400 Diastolic blood pressure 76 mm[Hg] Dr. Radha Fish Work Phone: [facility] 01-28-2023 10:04-0400 Heart rate 80 /min Dr. Radha Fish Work Phone: [facility] 01-28-2023 10:04-0400 Respiratory rate 18 /min Dr. Radha Fish Work Phone: [facility] 01-28-2023 10:04-0400 SaO2% (BldA) [Mass fraction] 96 % Dr. Radha Fish Work Phone: [facility] 01-28-2023 10:04-0400 Systolic blood pressure 121 mm[Hg] Dr. Radha Fish Work Phone: [facility] 01-23-2023 10:26-0400 Body mass index (BMI) [Ratio] 22.8 kg/m2 Dr. Radha Fish Work Phone: [facility] 01-23-2023 10:26-0400 Body temperature 97.8 [degF] Dr. Radha Fish Work Phone: [facility] 01-23-2023 10:26-0400 Body weight 68.[address] Radha Fish Work Phone: [facility] 01-23-2023 10:26-0400 Diastolic blood pressure 80 mm[Hg] Dr. Radha Fish Work Phone: [facility] 01-23-2023 10:26-0400 Heart rate 100 /min Dr. Radha Fish Work Phone: [facility] 01-23-2023 10:26-0400 Respiratory rate 16 /min Dr. Radha Fish Work Phone: [facility] 01-23-2023 10:26-0400 SaO2% (BldA) [Mass fraction] 94 % Dr. Radha Fish Work Phone: [facility] [place] 01-23-2023 10:26-0400 Systolic blood pressure 124 mm[Hg] Dr. Radha Fish Work Phone: [facility] 01-01-2023 15:04-0400 Body height 172.[address] Radha Fish Work Phone: [facility] [place] 01-01-2023 08:30-0400 Body mass index (BMI) [Ratio] 24 kg/m2 Dr. Radha Fish Work Phone: [facility] [place] 10-31-2022 21:48-0400 Body mass index (BMI) [Ratio] 24 kg/m2 Dr. Radha Fish Work Phone: [facility] [place] 10-15-2022 10:07-0400 Body height 172.[address] Radha Fish Work Phone: [facility] [place] 10-15-2022 10:07-0400 Body mass index (BMI) [Ratio] 23.1 kg/m2 Dr. Radha Fish Work Phone: [facility] [place] 10-15-2022 10:07-0400 Body weight 68.[address] Radha Fish Work Phone: [facility] [place] 10-15-2022 10:07-0400 Diastolic blood pressure 78 mm[Hg] Dr. Radha Fish Work Phone: [facility] [place] 10-15-2022 10:07-0400 Respiratory rate 18 /min Dr. Radha Fish Work Phone: [facility] [place] 10-15-2022 10:07-0400 Systolic blood pressure 115 mm[Hg] Dr. Radha Fish Work Phone: [facility] [place] 09-30-2022 19:57-0500 Body mass index (BMI) [Ratio] 24 kg/m2 Dr. Radha Fish Work Phone: [facility] [place] 09-18-2022 14:55-0500 Body height 172.[address] Radha Fish Work Phone: [facility] [place] 09-18-2022 14:55-0500 Body mass index (BMI) [Ratio] 22.8 kg/m2 Dr. Radha Fish Work Phone: [facility] [place] 09-18-2022 14:55-0500 Body temperature 97.6 [degF] Dr. Radha Fish Work Phone: [facility] [place] 09-18-2022 14:55-0500 Body weight 68.[address] Radha Fish Work Phone: [facility] [place] 09-18-2022 14:55-0500 Diastolic blood pressure 98 mm[Hg] Dr. Radha Fish Work Phone: [facility] [place] 09-18-2022 14:55-0500 Heart rate 108 /min Dr. Radha Fish Work Phone: [facility] [place] 09-18-2022 14:55-0500 Respiratory rate 16 /min Dr. Radha Fish Work Phone: [facility] [place] 09-18-2022 14:55-0500 SaO2% (BldA) [Mass fraction] 92 % Dr. Rdaha Fish Work Phone: [facility] [place] 09-18-2022 14:55-0500 Systolic blood pressure 148 mm[Hg] Dr. Radha Fish Work Phone: [facility] 09-03-2022 08:06-0500 Body mass index (BMI) [Ratio] 24 kg/m2 Dr. Radha Fish Work Phone: [facility] [place] 07-24-2022 15:44-0500 Body temperature 96.9 [degF] Dr. Radha Fish Work Phone: [facility] [place] 07-24-2022 15:44-0500 Body weight 67.[address] Radha Fish Work Phone: [facility] [place] 07-24-2022 15:44-0500 Diastolic blood pressure 82 mm[Hg] Dr. Radha Fish Work Phone: [facility] [place] 07-24-2022 15:44-0500 Heart rate 90 /min Dr. Radha Fish Work Phone: [facility] [place] 07-24-2022 15:44-0500 Respiratory rate 18 /min Dr. Radha Fish Work Phone: [facility] [place] 07-24-2022 15:44-0500 SaO2% (BldA) [Mass fraction] 97 % Dr. Radha Fish Work Phone: [facility] [place] 07-24-2022 15:44-0500 Systolic blood pressure 112 mm[Hg] Dr. Radha Fish Work Phone: [facility] [place] 07-15-2022 11:12-0500 Body height 172.[address] Radha Fish Work Phone: [facility] [place] 07-15-2022 11:12-0500 Body weight 68.[address] Radha Fish Work Phone: [facility] [place] 07-14-2022 07:56-0500 Body mass index (BMI) [Ratio] 22.8 kg/m2 Dr. Radha Fish Work Phone: [facility] [place] 07-03-2022 00:38-0500 Body mass index (BMI) [Ratio] 24 kg/m2 Dr. Radha Fish Work Phone: [facility] [place] 06-13-2022 10:52-0500 Body height 172.[address] Radha Fish Work Phone: [facility] [place] Work Phone: 06-13-2022 10:52-0500 Body mass index (BMI) [Ratio] 23.2 kg/m2 Dr. Radha Fish Work Phone: [facility] [place] 06-13-2022 10:52-0500 Body temperature 96.8 [degF] Dr. Radha Fish Work Phone: [facility] [place] 06-13-2022 10:52-0500 Body weight 69.[address] Radha Fish Work Phone: [facility] [place] 06-13-2022 10:52-0500 Diastolic blood pressure 68 mm[Hg] Dr. Radha Fish Work Phone: [facility] [place] 06-13-2022 10:52-0500 Heart rate 125 /min Dr. Radha Fish Work Phone: [facility] 06-13-2022 10:52-0500 Respiratory rate 16 /min Dr. Radha Fish Work Phone: [facility] [place] 06-13-2022 10:52-0500 SaO2% (BldA) [Mass fraction] 95 % Dr. Radha Fish Work Phone: [facility] [place] 06-13-2022 10:52-0500 Systolic blood pressure 108 mm[Hg] Dr. Radha Fish Work Phone: [facility] [place] 06-03-2022 09:31-0400 Body mass index (BMI) [Ratio] 24 kg/m2 Dr. Radha Fish Work Phone: [facility] [place] 05-02-2022 20:40-0400 Body mass index (BMI) [Ratio] 24 kg/m2 Dr. Radha Fish Work Phone: [facility] [place] 04-10-2022 10:07-0400 Body height 172.[address] Radha Fish Work Phone: [facility] Work Phone: 04-10-2022 10:06-0400 Body mass index (BMI) [Ratio] 22.8 kg/m2 Dr. Radha Fish Work Phone: [facility] [place] Work Phone: 04-10-2022 10:06-0400 Body weight 68.[address] Radha Fish Work Phone: [facility] [place] Work Phone: 04-10-2022 10:06-0400 Diastolic blood pressure 70 mm[Hg] Dr. Radha Fish Work Phone: [facility] [place] Work Phone: 04-10-2022 10:06-0400 Heart rate 87 /min Dr. Radha Fish Work Phone: [facility] Work Phone: 04-10-2022 10:06-0400 Respiratory rate 18 /min Dr. Radha Fish Work Phone: [facility] Work Phone: 04-10-2022 10:06-0400 SaO2% (BldA) [Mass fraction] 98 % Dr. Radha Fish Work Phone: [facility] Work Phone: 04-10-2022 10:06-0400 Systolic blood pressure 110 mm[Hg] Dr. Rdaha Fish Work Phone: [facility] Work Phone: 04-02-2022 22:48-0400 Body mass index (BMI) [Ratio] 24 kg/m2 Dr. Radha Fish Work Phone: [facility] Work Phone: 03-02-2022 02:11-0400 Body mass index (BMI) [Ratio] 24 kg/m2 Dr. Radha Fish Work Phone: [facility] Work Phone: 02-07-2022 10:56-0400 Body height 172.[address] Radha Fish Work Phone: [facility] Work Phone: 02-07-2022 10:56-0400 Body mass index (BMI) [Ratio] 22.8 kg/m2 Dr. Radha Fish Work Phone: [facility] Work Phone: 02-07-2022 10:56-0400 Body temperature 96.4 [degF] Dr. Radha Fish Work Phone: [facility] Work Phone: 02-07-2022 10:56-0400 Body weight 68.[address] Radha Fish Work Phone: [facility] Work Phone: 02-07-2022 10:56-0400 Diastolic blood pressure 60 mm[Hg] Dr. Radha Fish Work Phone: [facility] Work Phone: 02-07-2022 10:56-0400 Heart rate 50 /min Dr. Radha Fish Work Phone: [facility] Work Phone: 02-07-2022 10:56-0400 Respiratory rate 16 /min Dr. Radha Fish Work Phone: [facility] Work Phone: 02-07-2022 10:56-0400 SaO2% (BldA) [Mass fraction] 97 % Dr. Radha Fish Work Phone: [facility] Work Phone: 02-07-2022 10:56-0400 Systolic blood pressure 104 mm[Hg] Dr. Radha Fish Work Phone: [facility] Work Phone: 01-01-2022 00:08-0400 Body mass index (BMI) [Ratio] 24 kg/m2 Dr. Radha Fish Work Phone: [facility] Work Phone: 11-01-2021 00:08-0400 Body mass index (BMI) [Ratio] 24 kg/m2 Dr. Radha Fish Work Phone: [facility] [place] Work Phone: 10-08-2021 09:59-0500 Body height 172.[address] Radha Fish Work Phone: [facility] [place] Work Phone: 10-08-2021 09:59-0500 Body temperature 97.3 [degF] Dr. Radha Fish Work Phone: [facility] [place] Work Phone: 10-08-2021 09:59-0500 Diastolic blood pressure 74 mm[Hg] Dr. Radha Fish Work Phone: [facility] Work Phone: 10-08-2021 09:59-0500 Heart rate 85 /min Dr. Radha Fish Work Phone: [facility] Work Phone: 10-08-2021 09:59-0500 Respiratory rate 18 /min Dr. Radha Fish Work Phone: [facility] Work Phone: 10-08-2021 09:59-0500 SaO2% (BldA) [Mass fraction] 98 % Dr. Radha Fish Work Phone: [facility] Work Phone: 10-08-2021 09:59-0500 Systolic blood pressure 120 mm[Hg] Dr. Radha Fish Work Phone: [facility] Work Phone: 09-20-2021 10:18-0500 Body temperature 97.3 [degF] Dr. Radha Fish Work Phone: [facility] Work Phone: 09-20-2021 10:18-0500 Diastolic blood pressure 67 mm[Hg] Dr. Radha Fish Work Phone: [facility] Work Phone: 09-20-2021 10:18-0500 Heart rate 91 /min Dr. Radha Fish Work Phone: [facility] Work Phone: 09-20-2021 10:18-0500 Respiratory rate 18 /min Dr. Radha Fish Work Phone: [facility] Work Phone: 09-20-2021 10:18-0500 SaO2% (BldA) [Mass fraction] 97 % Dr. Radha Fish Work Phone: [facility] Work Phone: 09-20-2021 10:18-0500 Systolic blood pressure 118 mm[Hg] Dr. Radha Fish Work Phone: [facility] Work Phone: 09-17-2021 09:37-0500 Body weight 67.[address] Radha Fish Work Phone: [facility] Work Phone: 09-02-2021 21:51-0500 Body mass index (BMI) [Ratio] 24 kg/m2 Dr. Radha Fish Work Phone: [facility] Work Phone: 08-28-2021 17:28-0500 Body temperature 97.4 [degF] Dr. Radha Fish Work Phone: [facility] Work Phone: 08-28-2021 17:28-0500 Diastolic blood pressure 54 mm[Hg] Dr. Radha Fish Work Phone: [facility] Work Phone: 08-28-2021 17:28-0500 Heart rate 67 /min Dr. Radha Fish Work Phone: [facility] Work Phone: 08-28-2021 17:28-0500 Respiratory rate 18 /min Dr. Radha Fish Work Phone: [facility] Work Phone: 08-28-2021 17:28-0500 SaO2% (BldA) [Mass fraction] 96 % Dr. Radha Fish Work Phone: [facility] Work Phone: 08-28-2021 17:28-0500 Systolic blood pressure 127 mm[Hg] Dr. Radha Fish Work Phone: [facility] Work Phone: 08-28-2021 12:47-0500 Body mass index (BMI) [Ratio] 23.6 kg/m2 Dr. Radha Fish Work Phone: [facility] Work Phone: 08-28-2021 12:47-0500 Body weight 70.[address] Radha Fish Work Phone: [facility] Work Phone: 08-04-2021 03:03-0500 Body mass index (BMI) [Ratio] 24 kg/m2 Dr. Radha Fish Work Phone: [facility] Work Phone: 07-11-2021 13:05-0500 Body weight 70.[address] Radha Fish Work Phone: [facility] Work Phone: 07-11-2021 13:05-0500 Diastolic blood pressure 68 mm[Hg] Dr. Radha Fish Work Phone: [facility] Work Phone: 07-11-2021 13:05-0500 Heart rate 104 /min Dr. Radha Fish Work Phone: [facility] Work Phone: 07-11-2021 13:05-0500 Respiratory rate 16 /min Dr. Radha Fish Work Phone: [facility] Work Phone: 07-11-2021 13:05-0500 Systolic blood pressure 108 mm[Hg] Dr. Radha Fish Work Phone: [facility] Work Phone: 12-21-2020 14:53-0400 Body mass index (BMI) [Ratio] 24 kg/m2 Dr. Radha Fish Work Phone: [facility] Work Phone: Encounters Encounter Date Encounter Type Care Provider Facility Start: 06-13-2025 End: 06-13-2025 ambulatory Radha Fish Facility:[facility] Start: 06-08-2025 ambulatory [place] Chi Luigi Facility:[facility] Start: 06-05-2025 ambulatory [facility] Facility:[facility] Start: 05-29-2025 End: 05-29-2025 ambulatory West Chi Luigi Facility:[facility] Start: 05-17-2025 Dr. West Meyers MD -[facility] Start: 05-17-2025 Evaluation and management of inpatient Brennen Lawari Facility:[facility] Start: 05-17-2025 Dr. Tyler fernandez [facility] Work Phone: Start: 05-16-2025 Dr. Tyler fernandez [facility] Work Phone: Start: 05-15-2025 Dr. Tyler fernandez [facility] Work Phone: Start: 05-15-2025 ambulatory Radha Walker ty:[facility] Start: 05-14-2025 ambulatory Fabiana Anderson Facility:[facility] Start: 05-14-2025 End: 05-17-2025 Evaluation and management of inpatient Dr. Radha Fish MD Work Phone: -[facility] Start: 05-14-2025 End: 05-17-2025 Dr. Tyler Dueñas DO -[facility] Work Phone: Start: 05-09-2025 End: 05-09-2025 Carla Coughlin CRIB ATTENDANT-C -Laboratory Specime n Work Phone: Start: 05-09-2025 End: 05-09-2025 Carla Coughlin CRIB ATTENDANT-C -[facility] Work Phone: Start: 05-09-2025 End: 05-09-[address] Radha Fish MD Work Phone: -[facility] Start: 05-09-2025 End: 05-09-2025 ambulatory Carla Coughlin Facility:[facility] Start: 05-02-2025 End: 05-02-2025 Eun FLORES -[facility] [place] Work Phone: Start: 05-02-2025 End: 05-02-2025 ambulatory Eun FLORES Facility:[facility] Start: 04-14-2025 End: 04-14-[address] Radha Fish MD Work Phone: -Radiology [facility] Start: 04-14-2025 End: 04-14-2025 Eun FLORES -Radiology [facility] Work Phone: Start: 04-14-2025 End: 04-14-2025 Eun FLORES -[facility] Work Phone: Start: 04-14-2025 End: 04-14-[address] Radha Fish MD Work Phone: -[facility] Start: 04-14-2025 End: 04-14-2025 ambulatory Radha Fish Facility:[facility] Start: 04-09-2025 End: 04-09-[address] Radha Fish MD Work Phone: -[facility] Start: 04-09-2025 End: 04-09-2025 Dheeraj Rene CRIB ATTENDANT-C -[facility] Work Phone: Start: 04-09-2025 End: 04-09-2025 ambulatory Radha Fish Facility:[facility] [place] Start: 03-20-2025 End: 03-20-[address] Radha Fish MD Work Phone: -Laboratory Specimen Start: 03-20-2025 End: 03-20-2025 Carla Coughlin CRIB ATTENDANT-C -Laboratory Specime n Work Phone: Start: 03-20-2025 End: 03-20-2025 Carla Coughlin CRIB ATTENDANT-C -[facility] Work Phone: Start: 03-20-2025 End: 03-20-[address] Radha Fish MD Work Phone: -[facility] Start: 03-20-2025 End: 03-20-2025 ambulatory Carla Coughlin Facility:[facility] [place] Start: 03-03-2025 ambulatory Radha Fish Facili ty:[facility] [place] Start: 03-01-2025 End: 03-01-[address] Radha Fish MD Work Phone: -Laboratory [facility] Start: 03-01-2025 End: 03-01-2025 Dr. Radha Fish MD -Laboratory [facility] Start: 03-01-2025 End: 03-01-2025 Dr. Radha Fish MD -[facility] Work Phone: Start: 03-01-2025 End: 03-01-[address] Radha Fish MD Work Phone: -[facility] Start: 03-01-2025 End: 03-01-2025 ambulatory Radha Jeanant Facility:[facility] [place] Start: 02-23-2025 End: 02-23-2025 Carla TRUJILLOC -[facility] Work Phone: Start: 02-23-2025 End: 02-23-[address] Radha Fish MD Work Phone: -[facility] Start: 02-22-2025 End: 02-22-2025 Eun FLORES -[facility] Work Phone: Start: 02-22-2025 End: 02-22-[address] Radha Fish MD Work Phone: -[facility] Start: 02-21-2025 ambulatory Elinadivya Rochai ty:[facility] [place] Start: 02-13-2025 End: 03-02-2025 Dr. Radha Fish MD -Home Health Lab Start: 02-13-2025 End: 03-02-[address] Radha Fish MD Work Phone: -Home Health Lab Start: 02-10-2025 ambulatory Radha Rochachilo ty:[facility] [place] Start: 01-31-2025 End: 02-08-2025 Evaluation and management of inpatient LISA FISH Facility:[facility] Start: 01-30-2025 End: 01-31-2025 Dr. Car Solomon [facility] Work [facility]: Start: 01-30-2025 End: 01-31-2025 Emergency department patient visit Dr. Radha Fish MD Work Phone: -Emergency Department Work Phone: Start: 01-30-2025 End: 01-30-[address] Radha Fish MD Work Phone: -Radiology [facility] Start: 01-30-2025 End: 01-30-2025 Patient encounter procedure Tammie Pillai CRIB ATTENDANT-C -Radiology [facility] Work Phone: Start: 01-30-2025 End: 01-30-2025 Tammie Pillai CRIB ATTENDANT-C -Radiology [facility] Work Phone: Start: 01-30-2025 End: 01-30-2025 ambulatory Radha Fish Facility:[facility] [place] Start: 01-10-2025 End: 01-30-2025 Discharged Recurring Eun Lloyd PA -Laboratory [facility] Start: 01-10-2025 End: 01-30-2025 Eun Lloyd PA -Laboratory [facility] Start: 01-10-2025 End: 01-30-[address] Radha Fish MD Work Phone: -Laboratory [facility] Start: 01-05-2025 End: 01-05-2025 Patient encounter procedure Eun Lloyd PA -[facility] Work Phone: Start: 01-05-2025 End: 01-05-2025 Eun Lloyd PA -[facility] Work Phone: Start: 01-05-2025 End: 01-05-[address] Radha Fish MD Work Phone: [facility] Work Phone: Start: 12-02-2024 End: 12-02-2024 Discharged Recurring Eun Lloyd PA -Laboratory Work Phone: Start: 12-02-2024 End: 12-02-2024 Eun Lloyd PA -Laboratory Work Phone: Start: 12-02-2024 End: 12-02-[address] Radha Fish MD Work Phone: [facility] [place] Work Phone: Start: 11-02-2024 End: 11-30-2024 Discharged Recurring Eun Llyod PA -Laboratory [facility] Start: 11-02-2024 End: 11-30-2024 Eun FLORES -Laboratory [facility] Start: 11-02-2024 End: 11-30-2024 ambulatory [facility] Facility:[facility] [place] Start: 10-26-2024 End: 10-26-2024 Patient encounter procedure Eun FLORES -[facility] Work Phone: Start: 10-26-2024 End: 10-26-2024 Eun FLORES -[facility] Work Phone: Start: 10-26-2024 End: 10-26-2024 ambulatory [facility] Facility:[facility] Start: 10-06-2024 End: 10-31-2024 Discharged Recurring Eun FLORES -Laboratory, [facility] Start: 10-06-2024 End: 10-31-[address] Radha Fish MD Work Phone: [facility] [place] Work Phone: Start: 09-12-2024 End: 09-30-2024 Discharged Recurring Eun FLORES -Laboratory, [facility] Start: 09-12-2024 End: 09-30-2024 ambulatory [facility] Facility:[facility] [place] Start: 09-01-2024 End: 09-01-[address] Radha Fish MD -Laboratory, [facility] Start: 09-01-2024 End: 09-01-[address] Radha Fish MD -[facility] Work Phone: Start: 09-01-2024 End: 09-01-2024 ambulatory [facility] Facility:[facility] Start: 09-01-2024 End: 09-01-2024 ambulatory [facility] Facility:[facility] [place] Start: 08-15-2024 End: 09-02-2024 Discharged Recurring Eun FLORES -Laboratory, [facility] Start: 08-15-2024 End: 09-02-2024 ambulatory [facility] Facility:[facility] [place] Start: 08-01-2024 End: 08-02-2024 Discharged Recurring Eun FLORES -Laboratory, [facility] Start: 08-01-2024 End: 08-02-2024 ambulatory Radha Nguyễnsisi Facility:[facility] [place] Start: 06-29-2024 End: 07-02-2024 ambulatory Eun FLORES Facility:[facility] [place] Start: 03-01-2024 End: 03-01-2024 Patient encounter procedure [...] Cardiology Comment on above: Received Outside Med ical Records ([facility]) Atrial fibrillation, unspecified type (HCC) (Primary Dx) Start: 11-18-2023 Non-patient / Non-visit Dr. Elina Fish Work Phone: [facility] Start: 11-17-2023 End: 11-17-[address] Radha Fish Work Phone: [facility] [place] Work Phone: Start: 11-17-2023 End: 11-17-[address] Radha Fish Work Phone: [facility] [place]-Pulmonary Services/Neurology Work Phone: Start: 11-16-2023 End: 12-01-[address] Radha Fish Work Phone: [facility] [place] Work Phone: Start: 11-16-2023 End: 12-01-[address] Rad[facility] Fish [facility]: [facility] Start: 11-16-[address] Kristen Fish Work Phone: [facility]: Start: 10-19-2023 End: 10-31-[address] Radha Fish Work Phone: [facility] [place] Work Phone: Start: 10-19-2023 End: 10-31-[address] Radha Fish Work Phone: [facility]: Start: 10-05-2023 End: 10-05-[address] Radha Fish Work Phone: [facility] Work Phone: Start: 09-29-2023 Non-patient / Non-visit Dr. Elina Fish Work Phone: [facility] Start: 09-29-2023 End: 09-29-[address] Radha Fish Work Phone: [facility] [place] Work Phone: Start: 09-29-2023 End: 09-29-[address] Radha Fish Work Phone: [facility] Work Phone: Start: 09-21-2023 End: 10-01-[address] Radha Fish Work Phone: [facility] [place] Work Phone: Start: 09-21-2023 End: 10-01-[address] Radha Fish Work Phone: [facility] [place]-Laboratory Work Phone: Start: 08-31-2023 End: 08-31-[address] Radha Fish Work Phone: [facility] [place] Work Phone: Start: 08-31-2023 End: 08-31-[address] Radha Fish Work Phone: [facility]: Start: 07-21-2023 End: 07-21-[address] Radha Fish Work Phone: [facility] Work Phone: Start: 07-15-2023 End: 08-02-[address] Radha Fish Work Phone: [facility] [place] Start: 07-15-2023 End: 07-15-[address] Radha Fish Work Phone: [facility] Work Phone: Start: 06-18-2023 End: 07-02-[address] Radha Fish Work Phone: [facility]: Start: 05-29-2023 End: 05-29-2023 ambulatory [facility] [place] Work Phone: Start: 05-29-2023 End: 05-29-2023 Discharged Recurring [facility] Work Phone: Start: 04-17-2023 End: 04-17-[address] Radha Fish Work Phone: [facility] [place] Work Phone: Start: 04-17-2023 End: 04-17-[address] Radha Fish Work Phone: [facility] [place]-Laboratory Work Phone: Start: 04-17-[address] Kristen Fish Work Phone: [facility]: Start: 03-18-2023 End: 04-02-[address] Radha Fish Work Phone: [facility] [place] Work Phone: Start: 03-18-2023 End: 04-02-[address] Radha Fish Work Phone: [facility] Start: 02-12-2023 End: 03-02-[address] Radha Fish Work Phone: [facility] Start: 02-12-2023 End: 03-02-[address] Radha Fish Work Phone: [facility] [place] Work Phone: Start: 02-12-2023 End: 02-12-[address] Radha Fish Work Phone: [facility] [place]-Outpatient Bone Densitometry Work Phone: Start: 01-28-2023 End: 01-28-[address] Radha Fish Work Phone: [facility] Work Phone: Start: 01-23-2023 End: 01-30-[address] Radha Fish Work Phone: [facility] [place] Work Phone: Start: 01-23-2023 End: 01-30-[address] Radha Fish Work Phone: [facility] Start: 01-23-2023 End: 01-23-[address] Radha Fish Work Phone: [facility] Work Phone: Start: 01-06-2023 End: 01-06-[address] Radha Fish Work Phone: [facility] [place] Work Phone: Start: 01-06-2023 End: 01-06-[address] Radha Fish Work Phone: [facility] Start: 01-01-[address] Kristen Fish Work Phone: [facility] Start: 01-01-2023 End: 01-01-[address] Radha Fish Work Phone: [facility] Start: 12-04-2022 End: 12-31-[address] Radha Fish Work Phone: [facility] [place] Work Phone: Start: 12-04-2022 End: 12-31-[address] Radha Fish Work Phone: [facility] Start: 10-31-2022 End: 10-31-[address] Radha Fish Work Phone: [facility] [place] Work Phone: Start: 10-31-2022 End: 10-31-[address] Radha Fish Work Phone: [facility] Start: 10-15-2022 End: 10-15-[address] Radha Fish Work Phone: [facility] Start: 10-15-2022 End: 10-15-[address] Radha Fish Work Phone: [facility] Start: 09-26-2022 End: 09-26-[address] Radha Fish Work Phone: [facility] [place] Work Phone: Start: 09-26-2022 End: 09-26-[address] Radha Fish Work Phone: [facility] [place]-Laboratory Start: 09-26-[address] Kristen Fish Work Phone: [facility] Start: 09-18-2022 End: 09-18-[address] Radha Fish Work Phone: [facility] [place] Work Phone: Start: 09-18-2022 End: 09-18-[address] Radha Fish Work Phone: [facility] Internal Medicine Start: 08-21-2022 End: 08-21-[address] Radha Fish Work Phone: [facility] [place] Work Phone: Start: 08-21-2022 End: 08-21-[address] Radha Fish Work Phone: [facility] Start: 08-08-2022 End: 08-08-[address] Radha Fish Work Phone: [facility] Start: 07-24-2022 End: 07-24-[address] Radha Fish Work Phone: [facility] Start: 07-15-2022 Non-patient / Non-visit Dr. Elina Fish Work Phone: [facility] Start: 07-15-2022 End: 07-15-2022 Admission to same day surgery center Dr. Radha Fish Work Phone: [facility] [place]-Internet Developer/Special Procedures Start: 07-11-2022 Non-patient / Non-visit Dr. Elina Fish Work Phone: [facility] Start: 07-10-2022 End: 07-10-[address] Radha Fish Work Phone: [facility] [place] Work Phone: Start: 07-10-2022 End: 07-10-[address] Radha Fish Work Phone: [facility] Start: 06-13-2022 End: 07-02-[address] Radha Fish Work Phone: [facility] [place]-Laboratory, [place] Start: 06-13-[address] Kristen Fish Work Phone: [facility] Start: 06-13-2022 End: 06-13-[address] Radha Fish Work Phone: [facility] Start: 06-10-2022 Non-patient / Non-visit Dr. Elina Fish Work Phone: [facility] Start: 06-10-2022 End: 06-10-[address] Radha Fish Work Phone: [facility] [place] Work Phone: Start: 06-10-2022 End: 06-10-[address] Radha Fish Work Phone: [facility] Start: 05-27-2022 End: 05-27-[address] Radha Fish Work Phone: [facility] [place] Work Phone: Start: 05-27-2022 End: 05-27-[address] Radha Fish Work Phone: [facility] Start: 04-21-2022 End: 04-21-[address] Radha Fish Work Phone: [facility] [place]-Pulmonary Services/Neurology Start: 04-14-2022 End: 04-14-[address] Radha Fish Work Phone: [facility] Start: 04-10-2022 End: 04-10-[address] Radha Fish Work Phone: [facility] [place] Work Phone: Start: 04-10-2022 End: 04-10-[address] Radha Fish Work Phone: [facility] Start: 04-01-2022 End: 04-01-[address] Radha Fish Work Phone: [facility] [place] Work Phone: Start: 04-01-2022 End: 04-01-[address] Radha Fish Work Phone: [facility] Start: 02-07-2022 End: 03-02-[address] Radha Fish Work Phone: [facility] Start: 02-07-[address] Kristen Fish Work Phone: [facility] Start: 02-07-2022 End: 02-07-[address] Radha Fish Work Phone: [facility] Start: 01-16-2022 End: 03-02-[address] Radha Fish Work Phone: [facility] Start: 12-17-2021 End: 12-31-[address] Radha Fish Work Phone: [facility] [place] Start: 12-03-2021 End: 12-03-[address] Radha Fish Work Phone: [facility] Start: 11-25-2021 End: 11-25-[address] Radha Fish Work Phone: [facility] Start: 11-18-2021 End: 11-18-[address] Radha Fish Work Phone: [facility] Start: 10-28-2021 End: 10-28-[address] Radha Fish Work Phone: [facility] Start: 10-08-2021 End: 10-31-[address] Radha Fish Work Phone: [facility] [place] Start: 10-08-2021 End: 10-08-[address] Radha Fish Work Phone: [facility] Start: 09-26-2021 End: 09-26-[address] Radha Fish Work Phone: [facility] Start: 09-24-2021 End: 09-24-[address] Radha Fish Work Phone: [facility] Start: 09-03-2021 End: 09-20-2021 Evaluation and management of inpatient Dr. Radha Fish Work Phone: [facility] [place]-Transitional Care Unit Start: 08-28-2021 End: 08-28-2021 Emergency department patient visit Dr. Radha Fish Work Phone: [facility] [place]-Emergency Department Start: 08-06-2021 End: 08-06-[address] Radha Fish Work Phone: [facility] Start: 08-05-2021 End: 09-02-[address] Radha Fish Work Phone: [facility] [place]-Laboratory Start: 07-15-[address] Radha Fish Work Phone: [facility] [place]-Pulmonary Services/Neurology Start: 07-11-2021 End: 07-11-[address] Radha Fish Work Phone: [facility] Start: 01-22-2018 Ambulatory [facility] Facility :[facility] Start: 10-22-2017 End: 10-22-2017 Ambulatory [facility] Facility:[facility] Start: 10-12-2017 End: 10-12-2017 Ambulatory [facility] Facility:[facility] Start: 10-09-2017 End: 10-09-2017 Ambulatory [facility] Facility:[facility] Start: 06-11-2017 End: 06-11-2017 Ambulatory [facility] Facility:[facility] Procedures Date Procedure Procedure Detail Performing Clinician Start: 05-28-[address] Radha Fish MD Work Phone: Start: 05-28-2025 Mean corpuscular hem oglobin concentration determination Dr. Radha Fish MD Work Phone: Start: 05-28-[address] Elina Fish MD Work Phone: Start: 05-28-2025 Nucleated red blood cell count procedure Dr. Radha Fish MD Work Phone: Start: 05-28-2025 Platelet mean volume determination Dr. Radha Fish MD Work Phone: Start: 05-28-2025 Red blood cell morphology Dr. Radha Fish MD Work Phone: Start: 05-27-2025 Lymphocyte percent differential count Dr. Radha Fish MD Work Phone: Start: 05-27-[address] Radha Fish MD Work Phone: Start: 05-15-[address] Radha Fish MD Work Phone: Start: 05-15-2025 Mean corpuscular hem oglobin concentration determination Dr. Radha Fish MD Work Phone: Start: 05-15-[address] Elina Fish MD Work Phone: Start: 05-15-2025 Nucleated red blood cell count procedure Dr. Radha Fish MD Work Phone: Start: 05-15-2025 Platelet mean volume determination Dr. Radha Fish MD Work Phone: Start: 05-15-2025 Serum inorganic phos phate measurement Dr. Radha Fish MD Work Phone: Start: 05-14-2025 Osmolality measureme nt, serum Dr. Radha Fish MD Work Phone: Start: 05-14-2025 Urine microscopy: red cells Dr. Radha Fish MD Work Phone: Start: 05-14-2025 Urnls dip stick/tabl et reagent auto microscopy Dr. Radha Fish MD Work Phone: Start: 05-14-2025 Plain radiography of pelvis Dr. Radha Fish MD Work Phone: Start: 05-14-2025 Radex ankle complete minimum [address] Radha Fish MD Work Phone: Start: 05-14-2025 Radiologic exam ches t [address] Radha Fish MD Work Phone: Start: 05-14-2025 CT cervical spine wi thout contrast Dr. Radha Fish MD Work Phone: Start: 05-14-2025 CT of head without contrast Dr. Radha Fish MD Work Phone: Start: 05-14-2025 CT of lumbar spine Dr. Radha Fish MD Work Phone: Start: 05-14-2025 [address] se measurement Dr. Radha Fish MD Work Phone: Start: 05-09-2025 Urine microscopy: red cells Dr. Radha Fish MD Work Phone: Start: 05-09-2025 Urnls dip stick/tabl et reagent auto microscopy Dr. Radha Fish MD Work Phone: Start: 05-09-[address] Kristen Fish MD Work Phone: Start: 04-14-2025 Blood count smear mc rscp [...] Work Phone: Start: 01-31-2025 Antibody screen LISA JEANANT Comment on above: Order Comment: Speci men Type: BLOOD SPECIMENOrdering Facility: [facility] Address: [address] [place] [address] Performed By: #### T SCR ####[facility] [id number] [place] [address] [place] Start: 01-30-2025 Urine [...] Radha Fish MD Work Phone: Start: 01-30-2025 X-ray [...] Treatment Date Care Activity Detail Author Start: 05-30-2025 Urinalysis complete panel - Urine [facility] Start: 05-30-2025 [facility] Start: 05-29-2025 -Cardiovas cular Services Work Phone: Start: 05-22-2025 Viral antigen assay [facility] Start: 05-22-2025 Verification routine [facility] Start: 05-18-2025 [facility] Start: 05-18-2025 Speech therapy management [facility] Start: 05-18-2025 Developing a treatme nt plan [facility] Start: 05-18-2025 Development of care plan [facility] Start: 05-18-2025 [facility] Start: 05-17-2025 Speech therapy assessment [facility] Start: 05-17-2025 Following clinical p athway protocol [facility] Start: 05-17-2025 Wound care [facility] Start: 05-17-2025 Admission procedure [facility] Start: 05-17-2025 Introduction of urin deedee catheter [facility] Start: 05-17-2025 Measuring intake and output [facility] Start: 05-17-2025 Patient referral to dietitian [facility] Start: 05-17-2025 Referral for physica l therapy [facility] Start: 05-17-2025 Referral to occupati onal therapist [facility] Start: 05-17-2025 Vital signs measurements [facility] Start: 05-17-2025 [facility] Start: 05-17-2025 Patient discharge [facility] Start: 05-17-2025 Application of elast ic bandage [facility] Start: 05-14-2025 Following clinical p athway protocol [facility] Start: 05-14-2025 Ambulation without limitation [facility] Start: 05-14-2025 Assessment of risk o f venous thromboembolism [facility] Start: 05-14-2025 Catheterization of vein [facility] Start: 05-14-2025 Inhalation therapy procedure [facility] Start: 05-14-2025 Insertion of cathete r into peripheral vein [facility] Start: 05-14-2025 Measuring intake and output [facility] Start: 05-14-2025 Oxygen therapy [facility] Start: 05-14-2025 Providing care accor ding to standard [facility] Start: 05-14-2025 Referral for physica l therapy [facility] Start: 05-14-2025 Referral to occupati onal therapist [facility] Start: 05-14-2025 Referral to service [facility] Start: 05-14-2025 [facility] Start: 05-14-2025 Admission procedure [facility] Start: 05-14-2025 Consultation [facility] Start: 05-09-2025 [facility] Start: 05-02-2025 Yuly Alfonso Work Phone: Start: 01-31-2025 [facility] Start: 01-30-2025 [facility] Start: 09-03-2024 Diabetes Screening Diabetes Screenin [facility] Start: 04-03-2024 Influenza vaccination C [facility] Start: 03-01-2024 End: 03-01-2024 Patient encounter procedure 03/01/2024 2:15 PM EDT Office Visit Cardiology [address] [place] [address] Reno Dukes MD [address] [place], [place] [id number] Dx: Atrial fibrillation, persistent (HCC) [I48.19] Cardiology Comment on above: Dx: Atrial fibrillat ion, persistent (HCC) [I48.19] Start: 03-01-2024 End: 03-01-2024 Patient encounter procedure 03/01/2024 12:30 PM EDT Appointment Cardiology [address] [id number] Dx: Atrial fibrillation, persistent (HCC) [I48.19] Cardiology Comment on above: Dx: Atrial fibrillat ion, persistent (HCC) [I48.19] Start: 12-24-2023 End: 12-24-2023 ambulatory 12/24/2023 12:00 PM EDT Results Only Cardiology [address] [id number] DX: AFIB Cardiology Comment on above: DX: AFIB Start: 12-24-2023 End: 12-24-2023 Patient encounter procedure Cardiology Comment on above: DX: AFIB Start: 09-29-2023 Covid-19 Vaccine () Covid-19 Vaccine () [facility] Start: 08-03-2023 Advance Directive Discussion Advance Directive Discussion [facility] Start: 08-03-2023 Behavioral Health Screening Behavioral Health Screening [facility] Start: 07-21-2023 Evaluation of diagno stic study results [facility] Start: 04-03-2023 Covid-19 Vaccine () Covid-19 Vaccine () [facility] Start: 03-24-2016 Urine microalbumin profile DTa P,Tdap,Td Vaccine (1 - Tdap) [facility] Start: 1996 RSV Vaccine (1 - 1-d ose 60+ series) RSV Vaccine (1 - 1-dose 60+ series) [facility] Start: 1986 Shingrix Vaccine (1 of 2) Murphy grix Vaccine (1 of 2) [facility] Start: 1954 Depression Screening Depression Scre ening [facility] Anion gap in Serum o r Plasma [facility] Basic metabolic 2008 panel with ionized calcium - Serum or Plasma [facility] BUN/Creatinine ratio [facility] Calcium [Mass/volume ] in Serum or Plasma [facility] Carbon dioxide, tota l [Moles/volume] in Central venous blood [facility] Cardioversion [facility] Work Phone: Cardioversion [facility] CBC W Auto Different ial panel - Blood [facility] CBC W Auto Different ial panel - Blood [facility] Creatinine [Mass/vol ume] in Serum or Plasma [facility] DXA Bone [Mass/Area] Bone density [facility] DXA Bone [Mass/Area] Bone density [facility] End: 12-01-2024 ECG COMPLETE ECG COMPLETE ECG Routine Atrial fibrillation, unspecified type (HCC) 1 Occurrences starting 12/02/2023 until 12/01/2024 [facility] Work Phone: Comment on above: 1 Occurrences starti ng 12/02/2023 until 12/01/2024 End: 12-23-2024 Echocardiography ECHO Cardiology Routine Atrial fibrillation, persistent (HCC) 1 Occurrences starting 12/24/2023 until 12/23/2024 [facility] Work Phone: Comment on above: 1 Occurrences starti ng 12/24/2023 until 12/23/2024 Glucose [Mass/volume ] in Serum or Plasma [facility] Hepatic function panel [facility] End: 12-23-2024 HOLTER MONITOR 24 HOUR HOLTER MONITOR 24 HOUR ECG Routine Atrial fibrillation, persistent (HCC) 1 Occurrences starting 12/24/2023 until 12/23/2024 [facility] Comment on above: 1 Occurrences starti ng 12/24/2023 until 12/23/2024 Lipid 1996 panel - S abdullahi or Plasma [facility] Measurement of renal function [facility] Patient Education [facility] Work Phone: Patient referral [facility] Work Phone: Potassium measurement [facility] Radionuclide imaging of perfusion of myocardium under exercise stress [facility] Serum chloride measurement [facility] Sodium measurement [facility] Troponin T.cardiac [Mass/volume] in Serum or Plasma by High sensitivity method [facility] Urea nitrogen [Mass/volume] in Serum or Plasma [facility] Urinalysis complete panel - Urine [facility] Urine culture [facility] Heart [facility] Vitamin D, 25-hydrox y measurement [facility] XR Chest PA and Lateral [facility] Immunizations Immunization Date Immunization Notes Care Provider Fa noe 07-14-2024 RSV Adult Recombinan t (Arexvy) Dr. Radha Fish MD Work Phone: [facility] 07-14-[address] Radha Fish MD Work Phone: [facility] 05-10-2024 Covid (Spikevax) Dr. Concepción Fish MD Work Phone: [facility] 03-31-[address] Radha Fish MD Work Phone: [facility] 06-18-2023 RSV Adult Recombinan t (Arexvy) Dr. Radha Fish MD Work Phone: [facility] 05-29-2023 influenza virus vacc ine, unspecified formulation Reno Dukes MD Work Phone: [facility] 05-19-2021 Covid (Pfizer) Dr. Radha Fish Work Phone: [facility] 05-19-2021 influenza virus vacc ine, unspecified formulation Danny Edmond MD Work Phone: [facility] 09-20-2020 Covid (Pfizer) Dr. Radha Fish Work Phone: [facility] 08-30-2020 Covid (Pfizer) Dr. Radha Fish Work Phone: [facility] 05-02-2020 influenza, injectabl e, quadrivalent, preservative free Dr. Radha Fish Work Phone: [facility] 05-02-2020 influenza, seasonal, injectable Dr. Radha Fish Work Phone: [facility] 05-02-2020 Fluad Quad (65yr up)(PF) 60 mcg (15 mcg x 4)/0.5mL IM syringe (flu vac Dr. Radha Fish Work Phone: [facility] Work Phone: 05-24-2019 influenza, injectabl e, quadrivalent, preservative free Dr. Radha Fish Work Phone: [facility] 05-24-2019 influenza, seasonal, injectable Dr. Radha Fish Work Phone: [facility] 05-24-2019 Fluad 2018- 65yr up(PF)45 mcg(15 mcgx3)/0.5 mL intramuscular syringe (flu vac Dr. Radha Fish Work Phone: [facility] Work Phone: 03-23-2016 tetanus and diphther ia toxoids, adsorbed, preservative free, for adult use (2 Lf of tetanus toxoid and 2 Lf of diphtheria toxoid) Dr. Radha Fish Work Phone: [facility] 05-18-2015 pneumococcal polysaccharide vaccine, [address] Radha Fish MD Work Phone: [facility] 05-18-[address] Sid Fish Work Phone: [facility] Work Phone: 05-18-2015 pneumococcal vaccine , unspecified formulation Dr. Radha Fish Work Phone: [facility] 05-09-2015 influenza, high dose seasonal, preservative-free Danny Edmond MD Work Phone: [facility] 05-09-2015 influenza, injectabl e, quadrivalent, preservative free Dr. Radha Fish Work Phone: [facility] 05-09-2015 influenza, seasonal, injectable Dr. Radha Fish Work Phone: [facility] 01-05-2015 pneumococcal conjuga te vaccine, 13 valent Danny Edmond MD Work Phone: [facility] 04-28-2014 influenza, high dose seasonal, preservative-free Danny Edmond MD Work Phone: [facility] 06-14-2012 influenza virus vacc ine, unspecified formulation Danny Edmond MD Work Phone: [facility] 03-30-2012 tetanus and diphther ia toxoids, adsorbed, preservative free, for adult use (2 Lf of tetanus toxoid and 2 Lf of diphtheria toxoid) Danny Edmond MD Work Phone: [facility] Work Phone: 06-25-2004 pneumococcal polysaccharide vaccine, 23 valent Danny Edmond MD Work Phone: [facility] Payers Date Payer Category Payer Self-pay [id number] 2019 Unknown MMO MMO MEDICARE SUPPLEMENT [id number] 2019-Present [phone] [address] [place] [address] Indemnity [id number] 2015 Unknown [id number] 2002 Medicare MEDICARE MEDICAR E A AND B [id number] 2002-Present [phone] [address] [address] [place] [address] Medicare [id number] 2001 Medicare [id number] Medicare [id number] Unknown [id number] 2.16.840.1.934829.3.579.2.462 Unknown [id number] 2.16.840.1.953076.3.579.2.462 Unknown [id number] 2.16.840.1.350535.3.579.2.462 Unknown [id number] 2.16.840.1.041784.3.579.2.462 Unknown [id number] 2.16.840.1.212833.3.579.2.462 Unknown [id number] 2.16.840.1.074214.3.579.2.462 Unknown [id number] 2.16.840.1.380351.3.579.2.462 Unknown [id number] 2.16.840.1.241449.3.579.2.462 Unknown [id number] 2.16.840.1.838876.3.579.2.462 Unknown [id number] 2.16.840.1.385834.3.579.2.462 Unknown [id number] 2.16.840.1.872880.3.579.2.462 Unknown [id number] 2..840.1.017402.3.579.2.462 Unknown [id number] 2.840.1.152897.3.579.2.462 Unknown [id number] 2.16.840.1.736869.3.579.2.462 Unknown [id number] 2.16.840.1.828476.3.579.2.462 Unknown [id number] 2.16.840.1.632070.3.579.2.462 Unknown [id number] 2.16.840.1.333115.3.579.2.462 Unknown [id number] 2.840.1.886329.3.579.2.462 Unknown [id number] 2.16.840.1.011841.3.579.2.462 Unknown [id number] 2.16.840.1.960488.3.579.2.462 Unknown [id number] 2.16.840.1.300214.3.579.2.462 Unknown [id number] 2.16.840.1.413178.3.579.2.462 Unknown [id number] 2.16840.1.491945.3.579.2.462 Unknown [id number] 2.16.840.1.262535.3.579.2.462 Unknown [id number] 2.16.840.1.779758.3.579.2.462 Unknown [id number] 2.16.840.1.994103.3.579.2.462 Unknown [id number] 2.840.1.179016.3.579.2.462 Unknown [id number] 2.840.1.377581.3.579.2.462 Unknown [id number] 2.840.1.411218.3.579.2.462 Unknown [id number] 2.840.1.765042.3.579.2.462 Unknown [id number] 2.840.1.267332.3.579.2.462 Unknown [id number] 2.840.1.855298.3.579.2.462 Unknown [id number] 2.840.1.272669.3.579.2.462 Unknown [id number] 2.840.1.956500.3.579.2.462 Unknown [id number] 2.840.1.742085.3.579.2.462 Unknown [id number] 2.840.1.875969.3.579.2.462 Unknown [id number] 2.840.1.482300.3.579.2.462 Unknown [id number] 2.840.1.377467.3.579.2.462 Unknown [id number] 2.840.1.978748.3.579.2.462 Unknown [id number] 2.840.1.932074.3.579.2.462 Unknown [id number] 2.16840.1.428275.3.579.2.462 Unknown [id number] 2.840.1.257381.3.579.2.462 Social History Date Type Detail Facility Start: 10-08-2021 End: 07-21-2023 Tobacco smoking status NHIS Unknown if ever smoked [facility] Start: 05-15-2015 None [facility] Start: 05-15-2015 Alone [facility] Start: 05-15-2015 Non-smoker [facility] Start: 1935 Sex Assigned At Female W [facility] Start: 05-29-2011 End: 05-17-2025 Tobacco smoking status NHIS Never smoked tobacco [facility] Work Phone: Start: 05-29-2011 Tobacco use and exposure Smokeless tobacco non-user [facility] Start: 08-29-2021 End: 03-01-2024 Alcohol intake Current drinker of alcohol (finding) [facility] Start: 08-29-2021 End: 12-24-2023 History of Social function [facility] Start: 08-29-2021 End: 12-24-2023 Tobacco use panel [facility] Adult Depression Screening Assessment 0 [facility] Start: 1935 Sex Assigned At Not on file C [facility] Start: 11-01-2024 Sex Female (finding) [facility] Medical Equipment Procedure Code Equipment Code Equipment [...] goal Functional Status Date Assessment Result Facility 05-29-2025 Functional status With Assist of 1 [facility] Work Phone: 05-24-2025 Functional status Ambulates [facility] Work Phone: 05-17-2025 Functional status Ambulates [facility] Work Phone: 09-20-2021 Functional status Up ad monica [facility] Work Phone: Mental Status Date Assessment Result Facility 05-29-2025 Cognitive function Voice/Name [facility] Work Phone: 05-17-2025 Cognitive function Voice/Name [facility] Work Phone: 05-17-2025 Cognitive function Appropriate [facility] Work Phone: 09-20-2021 Cognitive function Voice/Name [facility] Work Phone: Clinical Notes 11-18-2023 to 05-17-2025 Note Date & Type Note Facility 05-17-2025 Note [facility] 05-17-2025 Note [facility] 05-17-2025 Hospital Discharg e instructions Additional Instructions 1. You are found to have an aneurysm in your brain as discussed on admission. Your aneurysm was discussed with a neurosurgeon over at [facility]. Please call as soon as possible after discharge and ask for an appointment with Dr. Lopez for your brain aneurysm that was found during hospitalization at [facility]. Date of Discharge: 05/17/25 [facility] Work Phone: 05-16-2025 Progress note Note Date/Time May 16, 2025 6:36pm [facility] Medical Records Department [address] [place] [address] Progress Note - Hospitalist 05/15/251916 MR#: [id number] Acct: [id number] Name: ANA MARIA AVALOS Rep #:[id number] 1935 89 From: Tyler Dueñas DO PCP: Dr. Radha Fish MD Status:A DM IN Location: MS3 [id number] Reason for Visit Chief Complaint: weakness and falls/ Subjective Subjective Patient was seen and examined today, she appears in no distress, she had family members in the room at the time of my examination. Patient stated that she would like to go to TCU if possible for short-term rehab services, she understands that her insurance may not approve this-patient has Medicare advantage plan. I ask her to think about an alternate place that she might wantto go in case there was no bed available in TCU. Objective Data Objective Data Vital Signs: Vital Signs Temp Pulse Resp BP Pulse Ox O2 Del Method 97.9 F 66 17 95/65 97 Room Air 05/15/25 14:30 05/15/25 14:30 05/15/25 14:30 05/15/25 14:30 05/15/25 14:30 05/15/25 14:30 Oxygen Delivery Method Room Air Weight: 74.6 kg Body Mass Index (BMI) 25.0 Intake & Output: Intake and Output for Last 24 Hours 05/13/25 05/14/25 05/15/25 23:59 23:59 23:59 Intake Total 1500 / 1500 Balance 1500 / 1500 Lab / Micro Data 05/15/25 06:17 05/15/25 06:17 Labs: Laboratory Results - last 24 hr 05/15/25 06:17: WBC 4.2 L, RBC 4.54, Hgb 13.2, Hct 38.9, MCV 85.7, MCH 29.1, MCHC 33.9, RDW Std Deviation 59.0 H, RDW Coeff of Payal 20.3 H, Plt Count 146 L, MPV 9.6, Immature Gran % (Auto) 0.700, Neut % (Auto) 65.4, Lymph % (Auto) 15.3 L, [place] % (Auto) 18.1 H, Eos % (Auto) 0.0, Baso % (Auto) 0.5, Absolute Neuts (auto) 2.7, Absolute Lymphs (auto) 0.64 L, Nucleated RBC % 0, Differential Comment SCANNED, Anisocytosis 2+, Sodium 126 L, Potassium 3.5, Chloride 89 L, Carbon Dioxide 24.7, Anion Gap 12, BUN 35 H, Creatinine 1.41 H, Estim Creat Clear Calc 27.82 L, Est GFR (MDRD) Non-Af 36 L, BUN/Creatinine Ratio 25.1 H, Glucose 82, Calcium 8.6, Phosphorus 3.8, Magnesium 2.5 H, Total Bilirubin 2.12 H, AST 52 H, ALT 26, Alkaline Phosphatase 128 H, Total Protein 5.6 L, Albumin 3.3L, Globulin 2.3, Albumin/Globulin Ratio 1.4 Physical Exam Const alert, oriented x3, no apparent distress and healthy appearing General Appearance: cooperative, well kempt and well developed Orientation / Consciousness: awake, oriented to person, oriented to place and oriented to time HEENT normocephalic and moist oral mucous membranes Eyes PERRL, EOMs intact bilaterally and conjunctivae normal Neck supple, no JVD, thyroid normal and no carotid bruits General: trachea midline Resp normal respiratory effort, no retractions, no use of accessory muscles and clearto auscultation bilaterally Auscultation: Negative for rales, rhonchi or wheezes Cardio S1 normal heart sound, S2 normal heart sound, no rub and no gallops Cardio Narrative: Heart rate and rhythm is irregular GI normal to inspection, nondistended, normoactive bowel sounds, soft to palpation,non-tender and non-distended Extremity Extremity Narrative: Patient has stasis dermatitis changes over both lower extremities, there is generalized edema noted over both lower legs General Extremity: edema bilateral lower extremity Skin Skin Narrative: Stasis dermatitis changes are noted over both lower legs Neuro oriented x3, CN's II-XII intact bilaterally, moves all extremities, no focal motor deficits and no sensory deficits noted Sensorium / Orientation: awake and alert Speech: speech normal Psych affect normal Assessment & Plan Assessment/Plan (1) Physical deconditioning: PLAN: Plan 1. Generalized weakness/physical deconditioning-PT and OT will continue to see the patient, she will need at least temporary placement in a senior care facility for inpatient rehab services #2 chronic atrial fibrillation-patient is on Eliquis and metoprolol #3 rate related cardiomyopathy-complicates care, management, recovery, and prognosis #4 hypothyroidism-patient is on levothyroxine #5 severe tricuspid regurg-complicates care, management, recovery, and prognosis #6 recent urinary tract infection-present on admission-patient will remain on Keflex for total of 5 days, urine culture as an outpatient showed E. coli, it isunknown whether the patient took all her medication-she had been prescribed Macrodantin #7 hyperlipidemia-patient is on a statin Total clinical time spent by myself addressing the patient's medical issues, reviewing all of her data, and collaborating with patient's care team: 35 minutes Charges/Coding Visit Charges Inpatient E&M: 69237 Subs Hosp L2 05/16/256 <Electronically signed by Tyler Dueñas DO> Cosigner Signature (if applicable): CC: ~ Signed [facility] Work Phone: 1(285) 695-392710-14-2025 Progress note Author Tyler Dueñas [facility] Note Date/Time May 17, 2025 5 :04pm [facility] Medical Records Department [address] [place] [address] Progress Note - Hospitalist 05/16/25 1443 MR#: [id number] Acct: [id number] Name: ANA MARIA AVALOS Rep #:[id number] : 1935 89 From: Tyler Dueñas DO PCP: Dr. Radha Fish MD Status:A DM IN Location: [place] [address]-1 Reason for Visit Chief Complaint: weakness and falls/ Subjective Subjective Patient was seen and examined today, we are awaiting skilled placement for inpatient rehab services. I noted in the patient's medical record that she had an abdominal CT performed in January of this year which indicated she might have cirrhosis. Patient has no history of alcohol intake and she denies any history of liver disease. According to the medical record, patient does have a history of a cardiomyopathy which could be secondary to chronic atrial fib. Patient hasno specific complaints today. Objective Data Objective Data Vital Signs: Vital Signs Temp Pulse Resp BP Pulse Ox O2 Del Method 97.5 F L 65 16 110/67 97 Room Air 05/16/25 10:00 05/16/25 11:30 05/16/25 10:00 05/16/25 11:30 05/16/25 10:00 05/16/25 10:42 Oxygen Delivery Method Room Air Weight: 74.5 kg Body Mass Index (BMI) 24.9 Intake & Output: Intake and Output for Last 24 Hours 05/14/25 05/15/25 05/16/25 23:59 23:59 23:59 Intake Total 1500 / 1500 Balance 1500 / 1500 Lab / Micro Data 05/15/25 06:17 05/15/25 06:17 Physical Exam Narrative alert, oriented x3, no apparent distress and healthy appearing General Appearance: cooperative, well kempt and well developed Orientation / Consciousness: awake, oriented to person, oriented to place and oriented to time HEENT normocephalic and moist oral mucous membranes Eyes PERRL, EOMs intact bilaterally and conjunctivae normal Neck supple, no JVD, thyroid normal and no carotid bruits General: trachea midline Resp normal respiratory effort, no retractions, no use of accessory muscles and clearto auscultation bilaterally Auscultation: Negative for rales, rhonchi or wheezes Cardio S1 normal heart sound, S2 normal heart sound, no rub and no gallops Cardio Narrative: Heart rate and rhythm is irregular GI normal to inspection, nondistended, normoactive bowel sounds, soft to palpation,non-tender and non-distended Extremity Extremity Narrative: Patient has stasis dermatitis changes over both lower extremities, there is generalized edema noted over both lower legs General Extremity: edema bilateral lower extremity Skin Skin Narrative: Stasis dermatitis changes are noted over both lower legs Neuro oriented x3, CN's II-XII intact bilaterally, moves all extremities, no focal motor deficits and no sensory deficits noted Sensorium / Orientation: awake and alert Speech: speech normal Psych affect normal Assessment & Plan Assessment/Plan (1) Physical deconditioning: PLAN: Plan 1. Generalized weakness/physical deconditioning-PT and OT will continue to see the patient, she will need at least temporary placement in a senior care facility for inpatient rehab services #2 chronic atrial fibrillation-patient is on Eliquis and metoprolol #3 rate related cardiomyopathy-complicates care, management, recovery, and prognosis #4 hypothyroidism-patient is on levothyroxine #5 severe tricuspid regurg-complicates care, management, recovery, and prognosis #6 recent urinary tract infection-present on admission-patient will remain on Keflex for total of 5 days, urine culture as an outpatient showed E. coli, it isunknown whether the patient took all her medication-she had been prescribed Macrodantin #7 hyperlipidemia-patient is on a statin Total clinical time spent by myself addressing the patient's medical issues, reviewing all of her data, and collaborating with patient's care team: 35 minutes Charges/Coding Visit Charges Inpatient E&M: 67265 Subs Hosp L2 05/17/25 2466 <Electronically signed by Tyler Dueñas DO> Cosigner Signature (if applicable): CC: ~ Signed [facility] Work Phone: 1(863) 693-737810-12-2025 Discharge summary Author Razia Red [facility] Note Date/Time May 14, 2025 4 :26pm [facility] Medical Records Department [address] [place] [address] Emergency Department Summary 05/14/25 MR#: [id number] Acct: [id number] Name: ANA MARIA AVALOS Rep #:[id number] : 1935 89 From: Razia Red MD PCP: Dr. Radha Fish MD Status:A DM IN Location: MS3 [id number] HPI HPI - Fall History of Present Illness Chief Complaint: Fall Narrative Narrative: Patient is a 89-year-old female presenting to the emergency department after a fall. Patient has a PMHX of hyponatremia, recurrent UTI, CKD stage III, HFrEF, Patient states that she was walking to the kitchen to have a snack, when her walker slipped out from under her causing her to fall and strike the back of herhead. She is on Eliquis for atrial fibrillation. She did not lose consciousness. She denies any neck pain. She endorses pain to her left lower back and her right ankle. States that for the past month or so she has been more weak than normal. This is being worked up outpatient and is reportedly likely due to her hyponatremia. She recently had a medication changes to attempt to resolve this. She denies any fevers, chest pain, shortness of breath, abdominal pain, nausea, vomiting, diarrhea, dysuria or hematuria. [facility] Medical History Cough UTI (urinary tract infection) Mood disorder Insomnia [...] Depression Joint pain Headache Snoring Post-nasal drainage Dyspnea on exertion Anxiety Insomnia due to medical condition Hypothyroidism (acquired) Anticoagulation goal of INR 2 to 3 Hypertension Atrial fibrillation with normal ventricular rate 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 Home Medications ?Medication ?Instructions ?Recorded ?Last Taken ?Type acetaminophen 500 mg tablet 1,000 mg (2 x 500 mg) PO Q 6H PRN 09/11/21 Unknown Rx PRN Pain Score 1-5 #0 tabs atorvastatin 20 mg tablet 20 mg PO QHS CHOLESTEROL #90 tabs 06/16/24 Unknown Rx alendronate 70 mg tablet See Rx Instructions .Route 1 08/21/23 Unknown Rx .COMPLEX #14 tabs Handicap Placard #1 ea 08/15/24 Unknown Rx levothyroxine 112 mcg tablet See Rx Instructions .Rout e 09/26/24 Unknown Rx .COMPLEX #90 tabs dapagliflozin propanediol 10 mg 10 mg PO QAM #30 tabs 11/15/24 Unknown Rx tablet (Farxiga) apixaban 5 mg tablet (Eliquis) 5 mg PO .COMPLEX #200 t abs 02/09/25 Unknown Rx metoprolol tartrate 100 mg tablet 100 mg PO Q12H #180 tabs 03/28/25 Unknown Rx furosemide 40 mg tablet 40 mg PO BID #180 tabs 04/20 Unknown Rx nitrofurantoin 100 mg PO Q12H 7 days #14 ca ps 05/09/25 Unknown Rx monohydrate/macrocrystals 100 mg capsule (Macrobid) spironolactone 25 mg tablet 50 mg (2 x 25 mg) PO DAILY #60 tabs 05/09/25 Unknown Rx Allergy/AdvReac Type Severity Reaction Status Date / Time bee venom protein (honey bee) Allergy Unknown UNKNOWN Verified 05/14/25 07:13 propoxyphene (From Allergy Unknown UNKNOWN Verified 05/14/25 07:13 Darvocet-N) codeine AdvReac Other Verified 05/14/25 07:13 Family History Mother Heart disease High cholesterol [...] in: none ROS ROS ED ROS Narrative see HPI EXAM Physical Exam Narrative Exam Narrative: Vital signs: Reviewed General: Alert and orientedx3. No acute distress. HEENT: Head is normocephalic. Cephalohematoma to the left parietal portion of the scalp. No overlying laceration or abrasion. Midface is stable and nontenderto palpation. Pupils 2 mm equal round and reactive. Nares are patent. No septal hematoma. Oropharynx and throat exams normal. No oropharyngeal trauma. Neck: Supple without lymphadenopathy nontender. No midline cervical spinal tenderness to palpation. No step-offs or deformities. Cardiovascular: Regular rate and rhythm, no murmurs. No rubs or gallops. Normal S1 and S2 Respiratory: Clear to auscultation bilaterally. No wheezes, rales, rhonchi Chest: Chest wall is atraumatic and nontender to palpation. No crepitus, erythema or ecchymosis noted. Abdominal: Soft and nontender. Normal bowel sounds. No guarding or rebound. Nonsurgical abdomen Extremities: No midline thoracic or lumbar spinal tenderness to palpation. No step-offs or deformities. Hips are stable and nontender to palpation. There issome mild left lower lumbar paraspinal tenderness to palpation. No erythema or ecchymosis to the back or flank. There is mild tenderness to palpation of the right lateral malleolus with some mild swelling noted at the ankle. Plantarflexion and dorsiflexion strength intact. Sensation intact. DP and PT pulses intact. Extremities are otherwise atraumatic and nontender to palpation with normal active range of motion no tenderness. Skin: Chronic venous stasis changes to bilateral lower extremities. Neurological: Cranial nerves II through XII are grossly intact. Normal strengthand sensation. Normal cerebellar function The rest of the physical exam is unremarkable Const Vital Signs: 05/14/25 07:09 05/14/25 07:14 05/14/25 09:28 Temperature 97.3 F L Temperature Source Temporal Pulse Rate 58 L 55 L Respiratory Rate 16 18 Respiratory Effort Normal Blood Pressure 104/86 H 108/69 Blood Pressure Mean 92 82 Pulse Ox 100 94 Oxygen Delivery Method Room Air Room Air 05/14/25 11:00 05/14/25 12:08 Temperature 98.6 F Temperature Source Pulse Rate 56 L 67 Respiratory Rate 16 Respiratory Effort Blood Pressure 119/81 H 94/60 Blood Pressure Mean 93 71 Pulse Ox 92 Oxygen Delivery Method MDM MDM MDM Narrative Medical decision making narrative: Patient is an 89-year-old female presenting to the emergency department after a mechanical fall. Patient was seen and examined. Vitals are stable. Patient resting in bed comfortably in no acute distress. Given her age, head trauma on Eliquis, CT the brain and cervical spine were obtained. X-rays were ordered based off her physical exam including pelvis and right ankle x-rays. Given the patient's age, fall and reported back pain although no midline tenderness on exam a CT of the lumbar spine was ordered to assess for any fracture. Given her generalized weakness for the last few weeks basic lab work, EKG and urinalysis were obtained. CBC with chronic leukopenia of 4.2 and a normal hemoglobin. BMP with acute on chronic hyponatremia of 124, which is slightly worse than her baseline recently of 130. BUN and creatinine are around her baseline. AST, alk phos and total bilirubin are slightly worse than her baseline however it looks like they have been uptrending over the past few months. Urinalysis with leukocyte esterase and rare bacteria however there is pretty significant contamination with epithelial cells noted. There are no nitrites. This looks to be contaminated not consistent with a urinary tract infection. CT of the brain with an intracranial aneurysm likely anterior communicating artery that is moderately large at 1.6 cm x 1.4 cm. There is no no intracranial acute pathology. CT cervical spine with no acute abnormalities. CT lumbar with an old T12 compression fracture otherwise no acute abnormalities. Right ankle x-ray, chest x-ray and pelvis x-ray reviewed by myself and no acute abnormalities are seen. Mild cardiomegaly noted on the chest x-ray. Radiology read in agreement. Patient ambulated and states she felt fairly weak while walking. I did update the patient on the CT findings of the aneurysm and she states she was unaware of this. States she does not think she has ever had a CT of the brain done. She denies any headaches or neurologicsymptoms over the past week. [facility] Real, who states with no symptoms she can follow-up outpatient in his office will call her this week. However with the patient's generalized weakness especially while walking and acute on chronic hyponatremia she states she will be nervous going home and I think it is appropriate for her to be admitted for further management. 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 Labs: Laboratory Results - last 24 hr 05/14/25 05/14/25 07:40 08:56 WBC 4.2 L RBC 4.86 Hgb 14.1 Hct 42.2 MCV 86.8 MCH 29.0 MCHC 33.4 RDW Std Deviation 61.0 H RDW Coeff of Payal 20.3 H Plt Count 151 MPV 9.6 Immature Gran % (Auto) 0.500 Neut % (Auto) 71.0 H Lymph % (Auto) 13.3 L [place] % (Auto) 14.5 H Eos % (Auto) 0.2 Baso % (Auto) 0.5 Absolute Neuts (auto) 3.0 Absolute Lymphs (auto) 0.56 L Nucleated RBC % 0 Anisocytosis 1+ Sodium 124 L Potassium 3.6 Chloride 86 L Carbon Dioxide 23.5 Anion Gap 14 BUN 34 H Creatinine 1.55 H Estim Creat Clear Calc 27.48 L Est GFR (MDRD) Non-Af 32 L BUN/Creatinine Ratio 21.7 H Glucose 102 H Uric Acid 6.2 H Calcium 9.0 Total Bilirubin 2.87 H Direct Bilirubin 1.67 H AST 61 H ALT 29 Alkaline Phosphatase 143 H Total Protein 6.4 Albumin 3.5 Globulin 2.8 Lipase 37 TSH 91.900 H Free T4 0.30 L Cortisol AM Sample 21.70 H Urine Color Yellow Urine Clarity Sl. Cloudy Urine pH 7.0 Ur Specific [place] 1.010 Urine Protein 30 H Urine Glucose (UA) 250 H Urine Ketones Negative Urine Occult Blood 10 H Urine Nitrite Negative Urine Bilirubin Negative Urine Urobilinogen 4 H Ur Leukocyte Esterase 500 H Urine RBC 0 SEEN Urine WBC 10-25 SEEN Ur Squamous Epith Cells 10-25 SEEN Ur Transition Epith Cell 0-5 SEEN Urine Bacteria RARE Urine Mucus 0 SEEN Urine Osmolality 302 Ur Random Sodium 35 Radiography Chest X-Ray - ED: 2 View, Read by ED Physician, Normal, No Acute Disease and Cardiomegaly X-Ray: Right Hip, Left Hip, Read by ED Physician and No Fracture Diagnostic Testing: Clinical Impression(s) from Imaging Studies Brain CT 05/14/25 07:50 IMPRESSION: Age-appropriate appearance of the brain. 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 Negative for acute intracranial pathology. Reading Location: [facility] Cervical Spine CT 05/14/25 07:50 IMPRESSION: Age-appropriate appearance of the brain. 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 Negative for acute intracranial pathology. Reading Location: [facility] Lumbar Spine CT 05/14/25 07:50 IMPRESSION: Old T12 compression fracture. Negative for acute abnormality of the lumbar spine. Reading Location: [facility] Ankle X-Ray 05/14/25 08:05 IMPRESSION: Previous orthopedic fixation of the ankle without residual or recurrent fracture Reading Location: [facility] Chest X-Ray 05/14/25 08:05 IMPRESSION: Cardiomegaly. Negative for acute cardiopulmonary disease. Reading Location: [facility] Pelvis X-Ray 05/14/25 08:05 IMPRESSION: Negative for acute abnormality of the pelvis. Reading Location: [facility] Discharge Plan Dx/Rx/DC Orders Clinical Impression: Fall, Brain aneurysm, Transaminitis, Hyponatremia Disposition Disposition: Acute Care [facility] Discharge Date/Time: 05/14/25 13:16 What to do if you have Problems For any increased pain, shortness of breath, bleeding, nausea or vomiting, chestpain, or any unexpected problems, contact your Primary Care Provider. Call [facility] ([phone]) or report to the closest Emergency Room. Call 911 if necessary. 05/14/25 1626 <Electronically signed by Razia Red MD> Cosigner Signature (if applicable): CC: Dr. Radha Fish MD ~ Signed [facility] Work Phone: [phone] 713-443510-12-2025 History and physical note Author Fabiana Anderson [facility] Note Date/Time May 14, 2025 4 :26pm [facility] Medical Records Department [address] [place] [address] H&P Exam - Hospitalist 05/14/25 1242 MR#: [id number] Acct: [id number] Name: ANA MARIA AVALOS Rep #:[id number] : 1935 89 From: Fabaina Anderson DO PCP: Dr. Radha Fish MD Status:A DM IN Location: VT3 [id number] HPI - General General Date of Admission: 05/14/25 Date of Service: 05/14/25 Chief Complaint: weakness and falls/ HPI Narrative ANA MARIA AVALOS, is a 89 F who presented to the emergency department at [facility] on 05/14/2025 with a chief complaint of falls. Patient reported that she was walking back to the kitchen to have a snack when her walker slipped out from under her causing her to fall and strike the back of herhead. She was on Eliquis for atrial fibrillation. She did not lose consciousness. She denies any significant pain to her head or neck but did endorse some left low back pain and right ankle pain. She reported over the last month she has felt weaker than typical as well. She has hyponatremia at baseline and her primary care physician has been working this up. She has not felt ill. She had been evaluated for urinary tract infection and was placed on Macrobid. Urine culture here shows significant growth with presumptive E. coli from a culture on 05/09/2025. OSVALDO was greater than 16. Patient does live at home alone. Vital signs on presentation showed a temperature of 97.3, heart rate 58, respiratory rate was 16, blood pressure is 104/86 and pulse ox was 100% on room air. CBC showed a white count of 4.2 with a normal hemoglobin. She did have a mild left shift with 71% neutrophilia. Chemistry panel showed worsening hyponatremia with a sodium of 124, chloride of 86, BUN was 34 with a serum creatinine of 1.55 (consistent with her baseline), LFTs show chronic hyperbilirubinemia which is stable. UA is somewhat suggestive of infection sowing leuk esterase, white cells, bacteria but was negative for nitrates. Extensive imaging was performed given fall. CT of the brain was unremarkable for acute findings but did show evidence of an ANUSHA aneurysm that was 1.[address] of the cervical spine was unremarkable for acute findings. CT of the ankle was unremarkable for acute findings. CT of the pelvis was unremarkable for acute findings. Chest x-ray was unremarkable for acute findings. CT of thelumbar spine was negative for acute findings. Initially, the ED physician was planning on sending her home however with her sodium being lower than typical and her falls admission was felt to be warranted. Dr. Red from the emergency department also did have a conversationwith Dr. Lopez, who is a neurosurgeon at [facility],and he recommended outpatient follow-up for the aneurysm indicating he would seeher after discharge next week. [facility] Medical History Cough UTI (urinary tract infection) Mood disorder Insomnia [...] Depression Joint pain Headache Snoring Post-nasal drainage Dyspnea on exertion Anxiety Insomnia due to medical condition Hypothyroidism (acquired) Anticoagulation goal of INR 2 to 3 Hypertension Atrial fibrillation with normal ventricular rate 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 Home Medications ?Medication ?Instructions ?Recorded ?Last Taken ?Type acetaminophen 500 mg tablet 1,000 mg (2 x 500 mg) PO Q 6H PRN 09/11/21 Unknown Rx PRN Pain Score 1-5 #0 tabs atorvastatin 20 mg tablet 20 mg PO QHS CHOLESTEROL #90 tabs 06/16/24 Unknown Rx alendronate 70 mg tablet See Rx Instructions .Route 1 08/21/23 Unknown Rx .COMPLEX #14 tabs Handicap Placard #1 ea 08/15/24 Unknown Rx levothyroxine 112 mcg tablet See Rx Instructions .Rout e 09/26/24 Unknown Rx .COMPLEX #90 tabs dapagliflozin propanediol 10 mg 10 mg PO QAM #30 tabs 11/15/24 Unknown Rx tablet (Farxiga) apixaban 5 mg tablet (Eliquis) 5 mg PO .COMPLEX #200 t abs 02/09/25 Unknown Rx metoprolol tartrate 100 mg tablet 100 mg PO Q12H #180 tabs 03/28/25 Unknown Rx furosemide 40 mg tablet 40 mg PO BID #180 tabs 04/20 Unknown Rx nitrofurantoin 100 mg PO Q12H 7 days #14 ca ps 05/09/25 Unknown Rx monohydrate/macrocrystals 100 mg capsule (Macrobid) spironolactone 25 mg tablet 50 mg (2 x 25 mg) PO DAILY #60 tabs 05/09/25 Unknown Rx Allergy/AdvReac Type Severity Reaction Status Date / Time bee venom protein (honey bee) Allergy Unknown UNKNOWN Verified 05/14/25 07:13 propoxyphene (From Allergy Unknown UNKNOWN Verified 05/14/25 07:13 Darvocet-N) codeine AdvReac Other Verified 05/14/25 07:13 Family History Mother Heart disease High cholesterol [...] activity do you participate in: none ROS Constitutional Constitutional: Reports fatigue and weakness; Denies anorexia, change in weight,chills, fever(s), malaise, night sweats or other Eyes Eyes: Denies blurry vision, change in eye color, change in vision, discharge from eye(s), double vision, erythema, eye pain, loss of vision or other ENT HEENT: Reports abnormal hearing and hearing loss; Denies dysphagia, ear pain, epistaxis, headache(s), nasal congestion, nasal discharge, post nasal drip, sinus pressure, sore throat or other Cardiovascular Cardiovascular: Denies chest pain, claudication, dyspnea on exertion, edema, lightheadedness, orthopnea, palpitations, paroxysmal nocturnal dyspnea, rapid heart rate, syncope or other Respiratory/Chest Respiratory/Chest: Denies cough, dyspnea, excessive phlegm production, hemoptysis, productive cough, shortness of breath at rest, shortness of breath with exertion, wheezing or other Gastrointestinal Gastrointestinal: Reports loose stools; Denies abdominal pain, coffee ground emesis, constipation, diarrhea, dyspepsia, hematemesis, hematochezia, melena, nausea, vomiting or other Genitourinary Genitourinary: Reports burning urination and urinary frequency; Denies difficulty urinating, dysuria, hematuria, nocturia, urinary hesitancy, urinary incontinence, urinary urgency or other Musculoskeletal Musculoskeletal: Reports back pain and other Details: Ankle pain ; Denies arthralgias, joint pain, joint stiffness, joint swelling, myalgias or neck pain Neurologic Neurologic: Denies abnormal gait, abnormal speech, confusion, disequilibrium, dizziness, focal weakness, headache(s), numbness, paresthesias, seizure-like activity, seizures, syncope, tingling, tremor(s) or other Psychiatric Psychiatric: Denies anxiety, depression, homicidal ideation, suicidal ideation or other Endocrine Endocrinology: Reports polydipsia; Denies change in body appearance, cold intolerance, excessive sweating, heat intolerance, polyuria or other Hematologic/Lymphatic Hematologic/Lymphatic: Reports easy bleeding and easy bruising; Denies anemia, lymphadenopathy or other Allergic/Immunologic Allergic/Immunologic: Denies rhinitis, hives, eczemia, asthma or other Vital Signs Vital Signs Vital Signs: 10/12/25 07:09 05/14/25 07:14 05/14/25 09:28 Temperature 97.3 F L Temperature Source Temporal Pulse Rate 58 L 55 L Respiratory Rate 16 18 Respiratory Effort Normal Blood Pressure 104/86 H 108/69 Blood Pressure Mean 92 82 Pulse Ox 100 94 Oxygen Delivery Method Room Air Room Air 05/14/25 11:00 05/14/25 12:08 Temperature 98.6 F Temperature Source Pulse Rate 56 L 67 Respiratory Rate 16 Respiratory Effort Blood Pressure 119/81 H 94/60 Blood Pressure Mean 93 71 Pulse Ox 92 Oxygen Delivery Method Weight Weight: 77.61 kg Body Mass Index (BMI) 26.0 Physical Exam Const alert, oriented x3, no apparent distress, average body habitus, healthy appearing and well nourished Constitutional Narrative: Very pleasant, elderly, white female, sitting up in bed, appears younger than stated age, does not appear toxic, very pleasant General Appearance: cooperative HEENT normocephalic, head/scalp atraumatic and moist oral mucous membranes; Negative for hearing grossly normal bilaterally HEENT Narrative: Dentition is fair, Mallampati is 2, no thrush, mild hearing loss Eyes PERRL, EOMs intact bilaterally and conjunctivae normal Eyes Narrative: No scleral icterus Neck supple Neck Narrative: Trachea midline, no thyroid enlargement, no lymphadenopathy Resp normal respiratory effort, no retractions, no use of accessory muscles and clearto auscultation bilaterally Auscultation: Negative for rales, rhonchi or wheezes Cardio regular rate, S1 normal heart sound, S2 normal heart sound, no murmurs, no rub, no gallops and no clicks; Negative for regular rhythm Cardio Narrative: Irregularly irregular rhythm with good rate control-mildly bradycardic GI normal to inspection, nondistended, normoactive bowel sounds, soft to palpation and non-tender Extremity Extremity Narrative: Trace bilateral lower extremity edema with no clubbing or cyanosis Skin no jaundice, no petechiae and no mottling Skin Narrative: Scattered ecchymotic changes on bilateral upper extremities/lower extremities invarious stages of healing, no significant open wounds Neuro CN's II-XII intact bilaterally, moves all extremities and no focal motor deficits Speech: speech normal Psych affect normal Psych Narrative: Extremely pleasant, makes good eye contact, patient interacts appropriately Results Lab / Micro Data 05/14/25 07:40 05/14/25 07:40 Labs: Laboratory Results - last 24 hr 05/14/25 07:40: WBC 4.2 L, RBC 4.86, Hgb 14.1, Hct 42.2, MCV 86.8, MCH 29.0, MCHC 33.4, RDW Std Deviation 61.0 H, RDW Coeff of Payal 20.3 H, Plt Count 151, MPV9.6, Immature Gran % (Auto) 0.500, Neut % (Auto) 71.0 H, Lymph % (Auto) 13.3 L, [place] % (Auto) 14.5 H, Eos % (Auto) 0.2, Baso % (Auto) 0.5, Absolute Neuts (auto)3.0, Absolute Lymphs (auto) 0.56 L, Nucleated RBC % 0, Anisocytosis 1+, Sodium 124 L, Potassium 3.6, Chloride 86 L, Carbon Dioxide 23.5, Anion Gap 14, BUN 34 H, Creatinine 1.55 H, Estim Creat Clear Calc 27.48 L, Est GFR (MDRD) Non-Af 32 L,BUN/Creatinine Ratio 21.7 H, Glucose 102 H, Calcium 9.0, Total Bilirubin 2.87 H,Direct Bilirubin 1.67 H, AST 61 H, ALT 29, Alkaline Phosphatase 143 H, Total Protein 6.4, Albumin 3.5, Globulin 2.8, Lipase 37 05/14/25 08:56: Urine Color Yellow, Urine Clarity Sl. Cloudy, Urine pH 7.0, Ur Specific [place] 1.010, Urine Protein 30 H, Urine Glucose (UA) 250 H, Urine Ketones Negative, Urine Occult Blood 10 H, Urine Nitrite Negative, Urine Bilirubin Negative, Urine Urobilinogen 4 H, Ur Leukocyte Esterase 500 H, Urine RBC 0 SEEN, Urine WBC 10-25 SEEN, Ur Squamous Epith Cells 10-25 SEEN, Ur Transition Epith Cell 0-5 SEEN, Urine Bacteria RARE, Urine Mucus 0 SEEN Imaging Radiology Impression Brain CT 05/14/25 07:50 IMPRESSION: Age-appropriate appearance of the brain. 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 Negative for acute intracranial pathology. Reading Location: [id number] Cervical Spine CT 05/14/25 07:50 IMPRESSION: Age-appropriate appearance of the brain. 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 Negative for acute intracranial pathology. Reading Location: [facility] Lumbar Spine CT 05/14/25 07:50 IMPRESSION: Old T12 compression fracture. Negative for acute abnormality of the lumbar spine. Reading Location: [id number] Ankle X-Ray 05/14/25 08:05 IMPRESSION: Previous orthopedic fixation of the ankle without residual or recurrent fracture Reading Location: [id number] Chest X-Ray 05/14/25 08:05 IMPRESSION: Cardiomegaly. Negative for acute cardiopulmonary disease. Reading Location: [id number] Pelvis X-Ray 05/14/25 08:05 IMPRESSION: Negative for acute abnormality of the pelvis. Reading Location: [facility] Assessment & Plan Assessment/Plan (1) Brain aneurysm: (2) Fall: (3) Hyponatremia: (4) Low-grade chronic hyperbilirubinemia: (5) Hypothyroidism: (6) Nonadherence to medication: PLAN: Plan Falls/Generalized Weakness - having falls at home...just a few - PT/OT consulted - TSH is 91 and I suspect this is the etiology for her falls and weakness - SW/CM consulted to assist with D/C planning patient may need home health versus temporary placement depending on functional status Hypoosmolar hyponatremia - Patient has had issues with hyponatremia lately - It looks like her levels have been between 130 and 133 for several months - Patient has not been compliant with her Synthroid and I suspect this is likelythe etiology - Uric acid is up so may have somewhat of a component of SIADH - TSH was 91 and I suspect this is the etiology - Urine sodium is 35 on diuretics -Urine osmolality was pending - will fluid restrict to 1500 cc daily - continue Lasix and Aldactone for now - Repeat sodium in a.m. - Patient is asymptomatic other than having generalized weakness Acute on chronic hypothyroidism secondary to medication nonadherence - Patient is to be on levothyroxine 112 mcg daily - Per discussion with patient she has not been compliant with her Synthroid - Will give one-time dose IV levothyroxine and start her home Synthroid dose tomorrow - Recheck free T4 in 48 hours - Will need outpatient follow-up for repeat TSH in 6 to 8 weeks - Suspect this is the etiology for most of her symptoms E. coli UTI - Culture sent from facility on 05/09/2025 - Presumptive E. coli at infectious levels - Will start Keflex 500 p.o. twice daily and treat for 5 days first dose early afternoon 05/14/2025 ANUSHA brain aneurysm - ANUSHA aneurysm 1.6 x 1.4 cm - ED physician called [facility] neurosurgeon on-call-->Dr. Lopez - Recommended follow-up within a week to 2 after discharge for evaluation no acute intervention needed Chronic hyperbilirubinemia - At baseline Chronic RV dilation/chronic HFrEF/HPL/essential hypertension - Patient previously with reduced EF however most recent echocardiogram showed improved EF to 57% - Continue home atorvastatin - Continue home Farxiga - continue home Lasix 40 twice daily - continue home metoprolol 100 mg twice daily - continue home Aldactone 50 mg daily - Continue ongoing outpatient follow-up with cardiology - Does have some mild bilateral lower extremity edema which she says is worse than typical however her TSH is off and I suspect it is related to this - Continue to monitor clinically Persistent atrial fibrillation - Continue home metoprolol - Continue on apixaban Osteoporosis - Restart alendronate at discharge DVT prophylaxis - Continue home apixaban CODE STATUS - DNR CCA with no intubation per emergency department physician Charges/Coding Visit Charges Inpatient E&M: 16535 Init Hosp L3 05/14/25 1626 <Electronically signed by Fabiana Anderson DO> Cosigner Signature (if applicable): CC: Dr. Radha Fish MD; Dr. Fabiana Anderson DO~ Signed [facility] Work Phone: 1(185) 505-832210-12-2025 Radiology Diagnostic study [facility]10-12-2025 Radiology Diagnostic study [facility]-12-2025 Radiology Diagnostic study [facility] 05-14-2025 Radiology Diagnostic study [facility]10-12-2025 Radiology Diagnostic study [facility]10-12-2025 Radiology Diagnostic study [facility]-15-2025 Radiology Diagnostic study [facility]07-23-2025 Evaluation note* Diagnosis Onset Date Resolution Status Admit Date Fatigue acute February 22 12:52pm Right ventricular [...] 1:02pm UTI (urinary tract infection) acute May 09, 2025 1:02pm [facility] Work Phone: [phone]) 591-795507-23-2025 Evaluation note* Diagnosis Onset Date Resolution Status Admit Date Fatigue acute February 22 12:52pm Right ventricular [...] 1:02pm UTI (urinary tract infection) acute May 09, 2025 1:02pm Brain aneurysm inactive May 142024 12:50pm Fall inactive May 14, 2025 12:50pm Hyponatremia inactive May 12:50pm Hypothyroidism inactive May 142024 12:50pm Low-grade chronic hyperbilirubinemia inactive May 14, 2025 12:50pm Nonadherence to medication inactive May 14, 2025 12:50pm Physical deconditioning inactive O ctober 2024 12:50pm Transaminitis deleted May 12:50pm Atrial fibrillation acute Octob er 2024 6:13pm Chronic heart failure with preserved ejection fraction (HFpEF) acute May 17 6:13pm Coronary artery disease acute O ctober 2024 6:13pm Debility acute May 17, 2025 6:13pm Essential (primary) hypertension acu te May 17, 2025 6:13pm Hypokalemia acute May 17, 2025 6:13pm UTI (urinary tract infection) acute May 17, 2025 6:13pm Vitamin D deficiency acute Octo laura 2024 6:13pm CKD (chronic kidney disease) , stage III chronic May 17 6:13pm GERD (gastroesophageal reflu x disease) chronic May 17 6:13pm Hyperlipidemia chronic May 172024 6:13pm Fall inactive May 17, 2025 6:13pm Hyponatremia inactive May 6:13pm Hypothyroidism inactive May 172024 6:13pm [facility] Work Phone: 1(235) 553-893407-09-2025 NoteHNO ID: [id number] Author: STEVE GONZALEZ RN Service: Care Management Author Type: Registered Nurse Type: Care Mgt Progress Note Filed: 02/09/2025 07:39 Note Text: CARE MANAGEMENT DISCHARGE NOTE SERVICE DATE: February 09, 2025 SERVICE TIME: 737 Admission Date: 01/31/2025 LOS: 8 days Discharge Arrangement Discharge Arrangement: Home with Home Health Services Arranged Medical Services: Skilled Home Health Care Type: Home Health Agency, Residential, Physical Therapy, Occupational Therapy Provider Name: Dr. Fish Caregiver Assessment Caregiver is ready, willing and able to meet the patient's needs as recommended by the inter-professional team: Yes Name of Caregiver: [facility] Home Health Transportation Arrangements Transportation Arrangements: Car Handoff Communication: Additional Information: Discharge Information Row Name ED to Hosp-Admission (Discharged) from 01/31/2025 in [facility] Agency [facility] Home Care Start of Care 02/09/25 Patient discharged last evening to home with [facility] HC. Order and DC summary sent to agency. Patient arranged transport home with a friend. SIGNATURE: Steve Gonzalez RN PATIENT NAME: Ana Maria Avalos DATE: February 09, 2025 TIME: 7:38 [facility]07-09-2025 NoteHNO ID: [id number] Author: STEVE GONZALEZ RN Service: Care Management Author Type: Registered Nurse Type: Care Mgt Progress Note Filed: 02/08/2025 15:05 Note Text: CARE MANAGEMENT PROGRESS NOTE SERVICE DATE: 02/08/2025 SERVICE TIME: 1504 LOS: 8 days Needs Prior to Discharge: To Be Determined [facility] can accept and do SOC tomorrow. Patient informed and agreeable. Home care order sent. SIGNATURE: Steve Gonzalez RN PATIENT NAME: Ana Maria Avalos DATE: February 08, 2025 TIME: 3:04 [facility]07-09-2025 NoteHNO ID: [id number] Author: STEVE GONZALEZ RN Service: Care Management Author Type: Registered Nurse Type: Care Mgt Progress Note Filed: 02/08/2025 10:42 Note Text: CARE MANAGEMENT PROGRESS NOTE SERVICE DATE: 02/08/2025 SERVICE TIME: 1040 LOS: 8 days Needs Prior to Discharge: To Be Determined Chart reviewed. Informed patient that [facility] can draw INR labs if she discharges on coumadin. Patient requested referral to [facility] after discussing home care with friend. Referral sent. Awaiting ECHO. CM will continue to follow. SIGNATURE: Steve Gonzalez RN PATIENT NAME: Ana Maria Avalos DATE: February 08, 2025 TIME: 10:40 [facility]07-08-2025 NoteHNO ID: [id number] Author: HIMANSHU DECKER DO Service: Hospital Medicine Author Type: Physician Type: Progress Notes Filed: 02/07/2025 16:53 Note Text: DEPARTMENT OF HOSPITAL MEDICINE PROGRESS NOTE SERVICE DATE: 02/07/2025 SERVICE TIME: 4:45 PM Hospital Medicine/Primary Attending: Himanshu Decker DO NIGHT AND WEEKEND COVERAGE: After 7pm please page [phone] SUBJECTIVE: Patient seen examined at bedside. Reports some pain at right IV site with erythema and reported pus draining from it earlier. Otherwise denies any complaints or concerns. Denies any change in abdominal discomfort. OBJECTIVE: PHYSICAL EXAM: BP 108/58 Pulse 103 Temp (Src) 98.5 (Oral) Resp 18 Ht 5' 8" (1.73m) Wt 179 lb 10.8 oz (81.5kg) [...] MCH 32.0 MPV 9.7 Coags: Recent Labs 02/07/25 0457 INR 1.1 BMP: No results for input(s): "NA", "K", "CHLOR", "CO2", "BUN", "CREAT", "GLUC" in the last 24 hours. CMP: No results for input(s): "NA", "K", "CHLOR", "CO2", "BUN", "CREAT", "GLUC", "TPROT", "CA", "MG", "ALBUMIN", "TBILI", "ALKPHOS", "ALT", "AST", "ANION" in the last 24 hours. Cardiac Enzymes: No results for input(s): "CK", "MB", "CKMB", "TROPT" in the last 24 hours. Liver Function, Amylase, Lipase: No results for input(s): "TPROT", "ALB", "ALT", "AST", "ALKPHOS", "TBILI", "AMYLASE", "LIPASE", "LACTATE" in the last 24 hours. MG/PHOS: No results for input(s): "MG", "P" in the last 24 hours. Renal Panel: No results for input(s): "ALBUMIN", "CREAT", "BUN", "GLUC", "CA", "P", "CHLOR", "K", "CO2", "NA" in the last 24 hours. Heme: No results for input(s): "RETICP", "ABSRETIC", "LD", "KEVAN", "FE", "TIBC","TRANSFERSAT" in the last 24 hours. Albumin/Creat Ratio [...] subcu heparin Disposition: Home (more content not included)...[facility] 02-07-2025 NoteHNO ID: [id number] Author: STEVE GONZALEZ RN Service: Care Management Author Type: Registered Nurse Type: Care Mgt Progress Note Filed: 02/07/2025 15:51 Note Text: CARE MANAGEMENT PROGRESS NOTE SERVICE DATE: 02/07/2025 SERVICE TIME: 1550 LOS: 7 days Needs Prior to Discharge: To Be Determined, Home Care Order Chart reviewed. Informed patient that [facility] can accept. Patient is agreeable to use [facility]. Will need home care order placed prior to discharge. SIGNATURE: Steve Gonzalez RN PATIENT NAME: Ana Maria Avalos DATE: February 07, 2025 TIME: 3:50 [facility]07-08-2025 NoteHNO ID: [id number] Author: MARVIN CASTILLO APRN.NEISHA Service: Hospital Medicine [...] redness or signs of infection. WILIAN Boswell ([facility], pager # [phone])[facility]07-07-2025 NoteHNO ID: [id number] Author: HIMANSHU DECKER DO Service: Hospital Medicine Author Type: Physician Type: Progress Notes Filed: 02/06/2025 17:38 Note Text: DEPARTMENT OF HOSPITAL MEDICINE PROGRESS NOTE SERVICE DATE: 02/06/2025 SERVICE TIME: 5:26 PM Hospital Medicine/Primary Attending: Himanshu Decker DO NIGHT AND WEEKEND COVERAGE: After 7pm please page [phone] SUBJECTIVE: Patient seen examined at bedside. No new complaints or concerns reported, no events reported overnight. Denies any pain OBJECTIVE: PHYSICAL EXAM: BP 110/76 Pulse 109 Temp (Src) 98.6 (Oral) Resp 18 Ht 5' 8" (1.73m) Wt 177 lb 14.6 oz (80.7kg) [...] INR 1.3 BMP: No results for input(s): "NA", "K", "CHLOR", "CO2", "BUN", "CREAT", "GLUC" in the last 24 hours. CMP: No results for input(s): "NA", "K", "CHLOR", "CO2", "BUN", "CREAT", "GLUC", "TPROT", "CA", "MG", "ALBUMIN", "TBILI", "ALKPHOS", "ALT", "AST", "ANION" in the last 24 hours. Cardiac Enzymes: No results for input(s): "CK", "MB", "CKMB", "TROPT" in the last 24 hours. Liver Function, Amylase, Lipase: No results for input(s): "TPROT", "ALB", "ALT", "AST", "ALKPHOS", "TBILI", "AMYLASE", "LIPASE", "LACTATE" in the last 24 hours. MG/PHOS: No results for input(s): "MG", "P" in the last 24 hours. Renal Panel: No results for input(s): "ALBUMIN", "CREAT", "BUN", "GLUC", "CA", "P", "CHLOR", "K", "CO2", "NA" in the last 24 hours. Heme: No results for input(s): "RETICP", "ABSRETIC", "LD", "KEVAN", "FE", "TIBC","TRANSFERSAT" in the last 24 hours. Albumin/Creat Ratio [...] mcg daily VTE Prophyla (more content not included)...[facility] 02-06-2025 NoteHNO ID: [id number] Author: STEVE GONZALEZ RN Service: Care Management [...] No preferred agency named. Referral sent to [facility] to see if they can accept and service PietroLance will continue to follow. SIGNATURE: Steve Gonzalez RN PATIENT NAME: Ana Maria Avalos DATE: February 06, 2025 TIME: 12:46 [facility]07-06-2025 NoteHNO ID: [id number] Author: HIMANSHU DECKER DO Service: Hospital Medicine Author Type: Physician Type: Progress Notes Filed: 02/05/2025 14:16 Note Text: DEPARTMENT OF HOSPITAL MEDICINE PROGRESS NOTE SERVICE DATE: 02/05/2025 SERVICE TIME: 2:08 PM Hospital Medicine/Primary Attending: Himanshu Decker DO NIGHT AND WEEKEND COVERAGE: After 7pm please page [phone] SUBJECTIVE: Patient seen and examined at bedside. No new complaints or concerns reported, no events reported overnight. OBJECTIVE: PHYSICAL EXAM: BP 101/63 Pulse 70 Temp (Src) 97.9 (Oral) Resp 15 Ht 5' 8" (1.73m) Wt 169 lb 8.5 oz (76.9kg) SpO2 96% BMI 25.78 kg/(m2). O2 Therapy: Room Air General - Alert, NAD, Calm ENT- no icterus, MMM CV -irregularly irregular S1 S2, No M/R/G RESP - CTA B/L No wheezes, ronchi, rales ABD - soft, NT, ND, NM +BS, bruising over right flank, smaller spirit lake of demarcated bruising over left flank, noticed [...] today's visit: CBC: No results for input(s): "WBC", "RBC", "HB", "HCT", "PLT", "MCV", "MCH", "MPV", "RDW" in the last 24 hours. Coags: Recent Labs 02/05/25 0936 INR 1.3 BMP: No results for input(s): "NA", "K", "CHLOR", "CO2", "BUN", "CREAT", "GLUC" in the last 24 hours. CMP: No results for input(s): "NA", "K", "CHLOR", "CO2", "BUN", "CREAT", "GLUC", "TPROT", "CA", "MG", "ALBUMIN", "TBILI", "ALKPHOS", "ALT", "AST", "ANION" in the last 24 hours. Cardiac Enzymes: No results for input(s): "CK", "MB", "CKMB", "TROPT" in the last 24 hours. Liver Function, Amylase, Lipase: No results for input(s): "TPROT", "ALB", "ALT", "AST", "ALKPHOS", "TBILI", "AMYLASE", "LIPASE", "LACTATE" in the last 24 hours. MG/PHOS: No results for input(s): "MG", "P" in the last 24 hours. Renal Panel: No results for input(s): "ALBUMIN", "CREAT", "BUN", "GLUC", "CA", "P", "CHLOR", "K", "CO2", "NA" in the last 24 hours. Heme: No results for input(s): "RETICP", "ABSRETIC", "LD", "KEVAN", "FE", "TIBC","TRANSFERSAT" in the last 24 hours. Albumin/Creat Ratio [...] subcu heparin Disposition: Home (more content not included)...[facility]07-05-2025 NoteHNO ID: [id number] Author: HIMANSHU DECKER DO Service: Hospital Medicine Author Type: Physician Type: Progress Notes Filed: 02/04/2025 15:18 Note Text: DEPARTMENT OF HOSPITAL MEDICINE PROGRESS NOTE SERVICE DATE: 02/04/2025 SERVICE TIME: 3:13 PM Hospital Medicine/Primary Attending: Himanshu Decker DO NIGHT AND WEEKEND COVERAGE: After 7pm please page [phone] SUBJECTIVE: Patient seen examined at bedside, no new acute complaints or concerns reported, no events reported overnight. Reports she has been getting up and moving. OBJECTIVE: PHYSICAL EXAM: BP 94/58 Pulse 80 Temp (Src) 97.6 (Oral) Resp 18 Ht 5' 8" (1.73m) Wt 175 lb 6.4 oz (79.6kg) SpO2 96% BMI 26.68 kg/(m2). O2 Therapy: Room Air General - Alert, NAD, Calm ENT- no icterus, MMM CV -irregularly irregular S1 S2, No M/R/G RESP - CTA B/L No wheezes, ronchi, rales ABD - soft, NT, ND, NM +BS, bruising over right flank, smaller [place] of demarcated bruising over left flank Neuro- [...] MPV 9.5 Coags: No results for input(s): "PT", "INR", "APTT" in the last 24 hours. BMP: No results for input(s): "NA", "K", "CHLOR", "CO2", "BUN", "CREAT", "GLUC" in the last 24 hours. CMP: No results for input(s): "NA", "K", "CHLOR", "CO2", "BUN", "CREAT", "GLUC", "TPROT", "CA", "MG", "ALBUMIN", "TBILI", "ALKPHOS", "ALT", "AST", "ANION" in the last 24 hours. Cardiac Enzymes: No results for input(s): "CK", "MB", "CKMB", "TROPT" in the last 24 hours. Liver Function, Amylase, Lipase: No results for input(s): "TPROT", "ALB", "ALT", "AST", "ALKPHOS", "TBILI", "AMYLASE", "LIPASE", "LACTATE" in the last 24 hours. MG/PHOS: No results for input(s): "MG", "P" in the last 24 hours. Renal Panel: No results for input(s): "ALBUMIN", "CREAT", "BUN", "GLUC", "CA", "P", "CHLOR", "K", "CO2", "NA" in the last 24 hours. Heme: No results for input(s): "RETICP", "ABSRETIC", "LD", "KEVAN", "FE", "TIBC","TRANSFERSAT" in the last 24 hours. Albumin/Creat Ratio [...] fibrillation (HCC) (POA: Ye (more content not included)...[facility]07-04-2025 NoteHNO ID: [id number] Author: HIMANSHU DECKER DO Service: Hospital Medicine Author Type: Physician Type: Progress Notes Filed: 02/03/2025 08:39 Note Text: DEPARTMENT OF HOSPITAL MEDICINE PROGRESS NOTE SERVICE DATE: 02/03/2025 SERVICE TIME: 8:36 AM Hospital Medicine/Primary Attending: Himanshu Decker DO NIGHT AND WEEKEND COVERAGE: After 7pm please page [phone] SUBJECTIVE: Patient seen examined at bedside. No new acute complaints or concerns reported, no events reported overnight. Reports pain is improved. Feels less swollen her abdomen. OBJECTIVE: PHYSICAL EXAM: BP 112/66 Pulse 72 Temp (Src) 97.7 (Oral) Resp 18 Ht 5' 8" (1.73m) Wt 175 lb 6.4 oz (79.6kg) [...] MPV 9.7 Coags: No results for input(s): "PT", "INR", "APTT" in the last 24 hours. BMP: Recent Labs 02/03/25 0330 NA 132* K 5.3* CHLOR 101 CO2 22 BUN 36* CREAT 1.26* GLUC 104* CMP: Recent Labs 02/03/25 0330 NA 132* K 5.3* CHLOR 101 CO2 22 BUN 36* CREAT 1.26* GLUC 104* CA 9.0 ANION 9 Cardiac Enzymes: No results for input(s): "CK", "MB", "CKMB", "TROPT" in the last 24 hours. Liver Function, Amylase, Lipase: No results for input(s): "TPROT", "ALB", "ALT", "AST", "ALKPHOS", "TBILI", "AMYLASE", "LIPASE", "LACTATE" in the last 24 hours. MG/PHOS: No results for input(s): "MG", "P" in the last 24 hours. Renal Panel: Recent Labs 02/03/25 0330 CREAT 1.26* BUN 36* GLUC 104* CA 9.0 CHLOR 101 K 5.3* CO2 22 NA 132* Heme: No results for input(s): "RETICP", "ABSRETIC", "LD", "KEVAN", "FE", "TIBC","TRANSFERSAT" in the last 24 hours. Albumin/Creat Ratio [...] (POA: Yes) This note was generated using simpleFLOORS voice dictation. All reasonable efforts were made to correct dictation errors. SIGNATURE: Himanshu Decker DO PATIENT NAME: Ana Maria Avalos DATE: February 03, 2025 TIME: 8:36 (more content not included)...[facility]07-03-2025 NoteHNO ID: [id number] Author: PILAR MACIAS MD Service: General Surgery [...] MD February 02, 2025 2:46 [facility]07-03-2025 NoteHNO ID: [id number] Author: HIMANSHU DECKER DO Service: Hospital Medicine Author Type: Physician Type: Progress Notes Filed: 02/02/2025 13:15 Note Text: DEPARTMENT OF HOSPITAL MEDICINE PROGRESS NOTE SERVICE DATE: 02/02/2025 SERVICE TIME: 1:11 PM Hospital Medicine/Primary Attending: Himanshu Decker DO NIGHT AND WEEKEND COVERAGE: After 7pm please page [phone] SUBJECTIVE: Patient seen examined at bedside, no new acute complaints or concerns reported, no events reported overnight. Denies any change in pain worsening. OBJECTIVE: PHYSICAL EXAM: BP 105/66 Pulse 83 Temp (Src) 98 (Oral) Resp 15 Ht 5' 8" (1.73m) Wt 175 lb 6.4 oz (79.6kg) [...] 9 Cardiac Enzymes: No results for input(s): "CK", "MB", "CKMB", "TROPT" in the last 24 hours. Liver Function, Amylase, Lipase: No results for input(s): "TPROT", "ALB", "ALT", "AST", "ALKPHOS", "TBILI", "AMYLASE", "LIPASE", "LACTATE" in the last 24 hours. MG/PHOS: No results for input(s): "MG", "P" in the last 24 hours. Renal Panel: Recent Labs 02/02/25309 CREAT 1.29* BUN 36* GLUC 106* CA 8.0* CHLOR 102 K 5.1 CO2 20* NA 131* Heme: No results for input(s): "RETICP", "ABSRETIC", "LD", "KEVAN", "FE", "TIBC","TRANSFERSAT" in the last 24 hours. Albumin/Creat Ratio [...] (POA: Yes) This note was generated using simpleFLOORS voice dictation. All reasonable efforts were made to correct dictation errors. SIGNATURE: Himanshu Decker DO PATIENT NAME: Ana Maria Avalos DATE: February 02, 2025 TIME: 1:11 PM PAGER/CONTACT #: [facility]07-02-2025 NoteHNO ID: [id number] Author: STEVE GONZALEZ RN Service: Care Management [...] February 01, 2025 TIME: 12:16 [facility]07-02-2025 NoteHNO ID: [id number] Author: HIMANSHU DECKER DO Service: Hospital Medicine Author Type: Physician Type: Progress Notes Filed: 02/01/2025 11:46 Note Text: DEPARTMENT OF HOSPITAL MEDICINE PROGRESS NOTE SERVICE DATE: 02/01/2025 SERVICE TIME: 11:37 AM Hospital Medicine/Primary Attending: Himanshu Decker DO NIGHT AND WEEKEND COVERAGE: After 7pm please page [phone] SUBJECTIVE: Patient seen and examined at bedside, no new acute complaints returns reported, no events reported overnight. Reports abdomen pain is improving feels less bloated. OBJECTIVE: PHYSICAL EXAM: BP 125/76 Pulse 139 Temp (Src) 97.9 (Oral) Resp 18 Ht 5' 8" (1.73m) Wt 175 lb 6.4 oz (79.6kg) [...] 10 Cardiac Enzymes: No results for input(s): "CK", "MB", "CKMB", "TROPT" in the last 24 hours. Liver Function, Amylase, Lipase: No results for input(s): "TPROT", "ALB", "ALT", "AST", "ALKPHOS", "TBILI", "AMYLASE", "LIPASE", "LACTATE" in the last 24 hours. MG/PHOS: No results for input(s): "MG", "P" in the last 24 hours. Renal Panel: Recent Labs 02/01/25 0204 CREAT 1.39* BUN 38* GLUC 120* CA 8.6 CHLOR 101 K 4.6 CO2 20* NA 131* Heme: No results for input(s): "RETICP", "ABSRETIC", "LD", "KEVAN", "FE", "TIBC","TRANSFERSAT" in the last 24 hours. Albumin/Creat Ratio [...] (POA: Yes) This note was generated using simpleFLOORS voice dictation. All reasonable efforts were made to correct dictation errors. SIGNATURE: Himanshu Decker DO PATIENT NAME: Ana Maria Avalos DATE: February 01, 2025 TIME: 11:37 AM PAGER/CONTACT #: [facility]07-01-2025 NoteHNO ID: [id number] Author: RYAN MALDONADO RN Service: Care Management [...] Determined Advance Directives Current Advance Directive: None It Infrastructure Engineer Attempted to Assist with AD Completion: Yes [...] little to no assistance, Back to cooking [place] Explained: [place] Given: No Are you interested [...] groceries and will work on the yard. 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 Her son lives near by but is "not super helpful". Has a walker but does not use it. +DME, +PCP. Anticipate patient will be discharging home pending clinical course. She states if she does need placement she would prefer somewhere in [place]. Friends will be able to transport home. SIGNATURE: Ryan Maldonado RN PATIENT NAME: Ana Maria Avalos DATE: January 31, 2025 TIME: 5:11 [facility]06-30-2025 Discharge summary [facility] Medical Records Department [address] [place] [address] Emergency Department Summary 01/30/25 MR#: [id number] Acct: [id number] Name: ANA MARIA AVALOS Rep #:[id number] [...] going to make it through the night. [facility] Medical History Elevated C-reactive protein (CRP) [...] follow commands knew that she was at [facility] 2024 Skin: Warm, dry, tact [...] with on-call general surgeon Dr. Haji at [facility] And she states that the patient [...] (Auto) 66.1 Lymph % (Auto) 15.0 L [place] % (Auto) 15.7 H Eos % (Auto) [...] Clarity Cloudy Urine pH 5.0 Ur Specific [facility] 1.015 Urine Protein 100 H Urine Glucose [...] Bilateral pleural effusions. Colonic diverticulosis. Reading Location: [place] [address] Discharge Plan Triage Chief Complaint: Shortness of [...] MD [Primary Care Provider] - Print Language: Vietnamese Disposition Disposition: DC/Tx to Another Type of HCF What to do if you have Problems For any increased pain, shortness of breath, bleeding, nausea or vomiting, chestpain, or any unexpected problems, contact your Primary Care Provider. Call [facility] ([phone]) or report tothe closest Emergency Room. Call 911 if necessary. 01/30/25 2341 Cosigner Signature (if applicable): CC: Dr. Radha Fish MD ~ Signed [facility]06-30-2025 Radiology Diagnostic study note [facility] Imaging Services [address] [place] [address] Chest PA and Lateral MR#: [id number] Acct: [id number] Name: ANA MARIA AVALOS Rep #: [id number] : 1935 F 89 From: Martní Justin MD PCP: Dr. Radha Fish MD Status: R EG CLI Study:Chest PA and Lateral Date of Exam: 01/30/25 Exam# [id number] Ordering Dr: Tammie Pillai CRIB ATTENDANT CRIB ATTENDANT-C PROCEDURE: CHEST PA AND LATERAL 01/30/2025 REASON FOR EXAM: SHORTNESS OF BREATH, CHF TECHNIQUE: CHEST PA AND LATERAL COMPARISON: 09/18/2022. FINDINGS: The heart is enlarged. Bibasilar linear opacities favoring atelectasis. The lungs are hyperaerated which can suggest COPD. Chronic right rib deformities. RAD/Chest PA and Lateral IMPRESSION: Cardiomegaly. Hyperaerated lungs with can suggest COPD. Probable bibasilar atelectasis. Reading Location: [place] [address] CC: CRIB ATTENDANT-C Tammie Pillai; Dr. Radha Fish MD ~ Lidder: Signed [facility]06-30-2025 Radiology Diagnostic study note [facility] Imaging Services [address] [place] [address] Abdomen/Pelvis W IV Cont ONLY MR#: [id number] Acct: [id number] Name: ANA MARIA AVALOS Rep #: [id number] : 1935 F 89 From: Martín Justin MD PCP: Dr. Radha Fish MD Status: R EG ER Study:Abdomen/Pelvis W IV Cont ONLY Date of E xam: 01/30/25 Exam# [id number] Ordering Dr: Naz Solomon DO PROCEDURE: ABDOMEN/PELVIS [...] effusions. Anasarca. Degenerative changes of the spine. Efaosgfa-di-cqepbi atherosclerosis. Normal caliber abdominal aorta. Thickening of [...] Bilateral pleural effusions. Colonic diverticulosis. Reading Location: [id number] CC: Dr. Radha Fish MD; Dr. Car Solomon DO ~ Lidder: Signed [facility]06-30-2025 Discharge summary Author Car Solomon [facility] Note Date/Time January 30, 2025 11:4 1pm [facility] Medical Records Department [address] [place] [address] Emergency Department Summary 01/30/25 MR#: [id number] Acct: [id number] Name: ANA MARIA AVALOS Rep #:[id number] [...] going to make it through the night. [facility] Medical History Elevated C-reactive protein (CRP) [...] follow commands knew that she was at [facility] 2024 Skin: Warm, dry, tact [...] with on-call general surgeon Dr. Haji at [facility] And she states that the patient [...] (Auto) 66.1 Lymph % (Auto) 15.0 L [place] % (Auto) 15.7 H Eos % (Auto) [...] Clarity Cloudy Urine pH 5.0 Ur Specific [facility] 1.015 Urine Protein 100 H Urine Glucose [...] Bilateral pleural effusions. Colonic diverticulosis. Reading Location: [place] [address] Discharge Plan Triage Chief Complaint: Shortness of [...] MD [Primary Care Provider] - Print Language: Vietnamese Disposition Disposition: DC/Tx to Another Type of HCF What to do if you have Problems For any increased pain, shortness of breath, bleeding, nausea or vomiting, chestpain, or any unexpected problems, contact your Primary Care Provider. Call [facility] ([phone]) or report to the closest Emergency Room. Call 911 if necessary. 01/30/25 2341 <Electronically signed by Car Solomon DO> Cosigner Signature (if applicable): CC: Dr. Radha Fish MD ~ Signed [facility] Work Phone: 1(589) 574-373206-05-2025 Evaluation note* Diagnosis Onset Date Resolution Status [...] rectus sheath noneactive February 23, 2025 10:52am [facility] Work Phone: 1(208) 880-546006-05-2025 Evaluation note* Diagnosis Onset Date Resolution Status [...] 2025 10:52am Pulmonary hypertension chronic 2024 10:52am [facility] Work Phone: 1([phone] 337-860706-05-2025 Evaluation note* Diagnosis Onset Date Resolution Status [...] tract infection) acute March 20, 2025 10:40am [facility] Work Phone: [phone] Evaluation note* Diagnosis Onset Date Resolution Status [...] tract infection) acute April 09, 2025 10:59am [facility] Work Phone: [phone] 456-329606-05-2025 Evaluation note* Diagnosis Onset Date Resolution Status [...] Pure hypercholesterolemia chronic April 14, 2025 10:21am [facility] Work Phone: 1([phone] 141-588806-05-2025 Evaluation note* Diagnosis Onset Date Resolution Status [...] Pure hypercholesterolemia chronic April 14, 2025 10:21am [facility] Work Phone: 1([phone]) 974-211706-05-2025 [facility] [address] [place], [place] [address] OFFICE VISIT Date of Service: 01/05/25 MR#: [id number] Acct: [id number] Name: ANA MARIA AVALOS Rep #: [id number] : 1935 Provider: SANDRA Santiago Age/Sex: 89/F Location: [facility] Status: Signed HPI HPI History of Present [...] r/s from 01/04 with MH: see clinicals. [employer]en Suiting Shrinker Required: No Is patient in pain?: No [...] 3 weeks ago. unsure if passed out.) [facility] Medical History Elevated C-reactive protein (CRP) [...] Information Echocardiogram done in March 2024 at [facility] demonstrated an ejection fraction of 57%. [...] out.) Cardiac Ejection fraction %: 57 01/05/25 Anup FLORES> Date _ Eun Simpson Signature: Date (if applicable) CC: Dr. Radha Fish MD ~ [facility]03-26-2025 Evaluation note* Diagnosis Onset Date Resolution Status Admit Date CKD (chronic kidney disease) , stage III chronic October 26, 2024 10:57am Heart failure with reduced e jection fraction and diastolic dysfunction chronic October 26, 2024 10:57am Longstanding persistent atri al fibrillation chronic October 26, 2024 10:57am Pure hypercholesterolemia chronic October 26, 2024 10:57am [facility] Work Phone: [phone] Evaluation note* Diagnosis Onset Date Resolution Status [...] Pure hypercholesterolemia chronic January 05, 2025 9:25am [facility] Work Phone: [phone] Evaluation note* Diagnosis Onset Date Resolution Status [...] Pure hypercholesterolemia chronic February 22, 2025 12:52pm [facility] Work Phone: [phone] 121-921701-30-2025 Evaluation note* Diagnosis Onset Date Resolution Status Admit Date Essential hypertension chronic [facility] 2024 2:09pm Heart failure with reduced ejection [...] Pure hypercholesterolemia chronic October 26, 2024 10:57am [facility] Work Phone: 1([phone]) 902-144007-30-2024 History of Present illness Narrative* Reno Dukes MD - 03/01/2024 2:15 PM EDT Images from the original note were not included. [facility] SECTION OF HEART FAILURE and CARDIAC TRANSPLANT MEDICINE OUTPATIENT VISIT DATE March 01, 2024 OUTPATIENT VISIT TYPE Consultation PRIMARY CARE PHYSICIAN: Radha Fish ([facility]) [address] [place] [address] CHIEF COMPLAINT: Some fatigue NURSING INTAKE (Patient s concerns and/or recent hospitalizations/ER visits): Ana Maria Avalos is being referred by Dr. Edmond for optimization of GDMT, consider transition toEntresto. 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 This winter experienced shortness of breath, fatigue, and dizziness. Echo done at [facility] in october of this year, reports [...] had an echo in Sep 2023 in [place] reportedly showing EF of 30%, we do [...] to be. She was sent back to [facility] main to see EP, holter showed [...] BREAST PERC VACUUM/ROTN 12/27/2009 CARDIOVERSION 03/03/2011 In [place] OPEN TX FEMORAL SUPRACONDYLAR FRACTURE W/XTN Left 08/29/2021 PAST SURGICAL HISTORY OF right ankle ORIF for triamalleolar fracture S $ KNEE TOTAL ARTHR PRASHANTH Left 05/07/2015 [facility] [place]. LTK replacement arthroplasty SIGMOIDOSCOPY FLX [...] Paternal Aunt ALLERGIES: ALLERGIES Allergen Reactions Codeine Yane Trejo A500 [Prop* Intolerance CURRENT MEDICATIONS: furosemide [...] Take 400 mcg by mouth once daily. Wfark-1-MBT-EPA-Fish Oil (FISH OIL) 1,000 mg (120 mg-180 [...] Adult) Pulse 67 Ht 172.7 cm (5' 8") Wt 65.4 kg (144 lb 3.2 oz) [...] HYPOKALEMIA ABNORMAL ECG Confirmed by REMY KIM [facility] ([id number]) on 01/04/2024 11:56:49 PM IMPRESSION: NYHA [...] Entresto Long talk about atrial TR and penitentiary remodeling of the RV over time. At [...] non-medical management as above. Reno Dukes MD [facility] Section Of Heart Failure and Cardiac Transplant Medicine [facility] [place] [facility] Desk [address] [place] [address] documented in this encounterBarnesville Hospital05-23-2024 History of Present illness Narrative* Ela Rivera Tech - 12/24/2023 2:24 PM EDT HOLTER MONITOR APPLICATION Patient Name: Ana Maria Avalos [facility] Number: [id number] Chest is cleansed with alcohol Skin prep [...] or 48 hours 6.) Call with problems [phone] Patient expresses good verbal understanding of instructions Amrik Lugo documented in this encounterBarnesville Hospital05-23-2024 History of Present illness Narrative* Danny Edmond MD - 12/24/2023 12:45 PM EDT Images from the original note were not included. [facility] [place] [facility] Department of Cardiovascular Medicine SECTION OF CARDIAC PACING and ELECTROPHYSIOLOGY OUTPATIENT VISIT DATE December 24, 2023 OUTPATIENT VISIT TYPE NEW PRIMARY CARE PHYSICIAN: Radha Fish (Kathryn) [address] [place] [address] REFERRING PHYSICIAN: PENNY LLOYD [address] [place] [address] [facility] [address] CHIEF COMPLAINT: Persistent atrial fibrillation HISTORY OF [...] concern related [facility] an evaluation at [facility]. Patient states that she has been experiencing shortness of breath, low energy level, lightheadedness, and a decreased activity tolerance. She denies abdominal distention, edema, palpitations, PND, orsyncope. She finds herself significantly limited with activity finding she frequently needs to takebreaks from exertion. PAST MEDICAL HISTORY Diagnosis Date Ankle fracture October trimalleolar fracture right ankle (4/ suregery) Arthritis Atrial fibrillation (HCC) INR goal [...] BREAST PERC VACUUM/ROTN 12/27/2009 CARDIOVERSION 03/03/2011 In [facility] [place] FEMORAL SUPRACONDYLAR FRACTURE W/XTN Left 08/29/2021 PAST SURGICAL HISTORY OF right ankle ORIF for triamalleolar fracture S $ KNEE TOTAL ARTHR PRASHANTH Left 05/07/2015 [facility] [place]. LTK replacement arthroplasty SIGMOIDOSCOPY FLX [...] as directed. Take 1.5 tabs (4.5 mg) Thursday. All other days take 2 tablets [...] 131/76 Pulse 89 Ht 172.7 cm (5' 8") Wt 68 kg (150 lb) BMI 22.81 [...] 131/76 Pulse 89 Ht 172.7 cm (5' 8") Wt 68 kg (150 lb) BMI 22.81 [...] On Flecainide 2012 to 2016 Recurrent AF -2015. Admitted to [facility] main at that time for dofetilide initiation and therapeutic drug monitoring. QT prolongation on Tikosyn. Unable to tolerate. Started on Amiodarone at that time. Recurrent, symptomatic AF -2017 - requiring DCC. Thus far maintaining NSR. significant pulmonary hypertension DLCO 64% DLCO 60% CHADS VASc score Age x2, HTN, female - 5 - on coumadin JOEL at [place] 02-14-11: smoke and a possible fibrinous clot in the left atrial appendage - DCC aborted, inr goal increased to 2.5-3.5 Repeat JOEL at [facility] main : CONCLUSIONS: - Exam indication: [...] the prior CC echocardiographic exam performed on 06/24/2016. Probably no [...] the prior CC echocardiographic exam performed on 04/01/2017, no significant [...] may have occurred. Danny Edmond MD Pager: [phone] Office: [phone] I personally examined the patient and repeated [...] medical regimen Referring Physician: Sharon Velazco MD [address] [place] [address] Srinath Alba MD [address] [facility] [address] Primo Webster MD [facility] documented in this encounterBarnesville Hospital05-01-2024 Telephone encounter Note * Telephone Encounter - Piper Brito - 12/02/2023 1:23 PM EDT Images from the original note were not included. Outside EP-42-pgs & Scan Docs Referral- 12/24 (Dr. Eun Lloyd, SANDRA) Office Visit- 12/24 EKG- 10/24 TTE Echo- 09/26 Stress Test- 09/26 Holter Report- 12/24 Cardioversion- 07/24 Labs- 11/24 Piper Brito [facility]05-01-2024 Miscellaneous Notes* Telephone Encounter - Piper Rainey - 12/02/2023 1:23 PM EDT Images from the original note were not included. Outside EP-42-pgs & Scan Docs Referral- 12/24 (SANDRA Navarro) Office Visit- 12/24 EKG- 10/24 TTE Echo- 09/26 Stress Test- 09/26 Holter Report- 12/24 Cardioversion- 07/24 Labs- 11/24 Piper Brito documented in this encounterBarnesville Hospital04-17-2024 Procedure [facility] Author Ramiro Ryan [facility] Note Date/Time May 17, 2025 5 :50pm [facility] Medical Records Department [address] [place] [address] Counseling Note - Pharmacy 05/17/25 1719 MR#: [id number] Acct: [id number] Name: ANA MARIA AVALOS Rep #:[id number] : 1935 89 From: Ramiro Alexander ly PCP: Dr. Radha Fish MD Status:A DM IN Y Location: [address] [facility] Service has performed discharge medication reconciliation for this patient. The patient's discharge medication list was reviewed for discrepancies and discrepancies were resolved. Medications at Discharge Home Medications atorvastatin 20 mg tablet 20 mg PO QHS CHOLESTEROL #90 tabs 06/16/24 alendronate 70 mg tablet See Rx Instructions .Route .COMPLEX #14 tabs 06/21/24 Handicap Placard #1 ea 08/15/24 levothyroxine 112 mcg tablet See Rx Instructions .Route .COMPLEX #90 tabs 09/26/24 acetaminophen 500 mg tablet 1,000 mg (2 x 500 mg) PO Q8 #1 TAB 05/17/25 apixaban 5 mg tablet (Eliquis) 5 mg PO BID #0 tabs 05/17/25 cephalexin 500 mg capsule 500 mg PO Q12 #0 caps 05/17/25 empagliflozin 25 mg tablet (Jardiance) 25 mg PO DAILY #0 tabs 05/17/25 furosemide 40 mg tablet 40 mg PO DAILY #0 tabs 05/17/25 melatonin 10 mg disintegrating tablet 10 mg PO QHS PRN PRN Insomnia #0 tabs 05/17/25 metoprolol tartrate 75 mg tablet 75 mg PO BID #1 TAB 05/17/25 spironolactone 50 mg tablet 25 mg (1/2 x 50 mg) PO DAILY #0 tabs 05/17/25 05/17/25 1719 <Electronically signed by Ramiro Mcconnell> Date _ Ramiro Simpson Signature (if applicable): Date CC: ~ Signed [facility] Work Phone: Discharge summary Author Razia Red [facility] Note Date/Time May 14, 2025 4 :26pm [facility] Medical Records Department [address] [place] [address] Emergency Department Summary 05/14/25 MR#: [id number] Acct: [id number] Name: ANA MARIA AVALOS Rep #:[id number] : 1935 89 From: Razia Red MD PCP: Dr. Radha Fish MD Status:A DM IN Location: [facility] [id number] HPI HPI - Fall History of Present Illness Chief Complaint: Fall Narrative Narrative: Patient is a 89-year-old female presenting to the emergency department after a fall. Patient has a PMHX of hyponatremia, recurrent UTI, CKD stage III, HFrEF, Patient states that she was walking to the kitchen to have a snack, when her walker slipped out from under her causing her to fall and strike the back of herhead. She is on Eliquis for atrial fibrillation. She did not lose consciousness. She denies any neck pain. She endorses pain to her left lower back and her right ankle. States that for the past month or so she has been more weak than normal. This is being worked up outpatient and is reportedly likely due to her hyponatremia. She recently had a medication changes to attempt to resolve this. She denies any fevers, chest pain, shortness of breath, abdominal pain, nausea, vomiting, diarrhea, dysuria or hematuria. [facility] Medical History Cough UTI (urinary tract infection) Mood disorder Insomnia [...] Depression Joint pain Headache Snoring Post-nasal drainage Dyspnea on exertion Anxiety Insomnia due to medical condition Hypothyroidism (acquired) Anticoagulation goal of INR 2 to 3 Hypertension Atrial fibrillation with normal ventricular rate 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 Home Medications ?Medication ?Instructions ?Recorded ?Last Taken ?Type acetaminophen 500 mg tablet 1,000 mg (2 x 500 mg) PO Q 6H PRN 09/11/21 Unknown Rx PRN Pain Score 1-5 #0 tabs atorvastatin 20 mg tablet 20 mg PO QHS CHOLESTEROL #90 tabs 06/16/24 Unknown Rx alendronate 70 mg tablet See Rx Instructions .Route 1 08/21/23 Unknown Rx .COMPLEX #14 tabs Handicap Placard #1 ea 08/15/24 Unknown Rx levothyroxine 112 mcg tablet See Rx Instructions .Rout e 09/26/24 Unknown Rx .COMPLEX #90 tabs dapagliflozin propanediol 10 mg 10 mg PO QAM #30 tabs 11/15/24 Unknown Rx tablet (Farxiga) apixaban 5 mg tablet (Eliquis) 5 mg PO .COMPLEX #200 t abs 02/09/25 Unknown Rx metoprolol tartrate 100 mg tablet 100 mg PO Q12H #180 tabs 03/28/25 Unknown Rx furosemide 40 mg tablet 40 mg PO BID #180 tabs 04/20 Unknown Rx nitrofurantoin 100 mg PO Q12H 7 days #14 ca ps 05/09/25 Unknown Rx monohydrate/macrocrystals 100 mg capsule (Macrobid) spironolactone 25 mg tablet 50 mg (2 x 25 mg) PO DAILY #60 tabs 05/09/25 Unknown Rx Allergy/AdvReac Type Severity Reaction Status Date / Time bee venom protein (honey bee) Allergy Unknown UNKNOWN Verified 05/14/25 07:13 propoxyphene (From Allergy Unknown UNKNOWN Verified 05/14/25 07:13 Darvocet-N) codeine AdvReac Other Verified 05/14/25 07:13 Family History Mother Heart disease High cholesterol [...] in: none ROS ROS ED ROS Narrative see HPI EXAM Physical Exam Narrative Exam Narrative: Vital signs: Reviewed General: Alert and orientedx3. No acute distress. HEENT: Head is normocephalic. Cephalohematoma to the left parietal portion of the scalp. No overlying laceration or abrasion. Midface is stable and nontenderto palpation. Pupils 2 mm equal round and reactive. Nares are patent. No septal hematoma. Oropharynx and throat exams normal. No oropharyngeal trauma. Neck: Supple without lymphadenopathy nontender. No midline cervical spinal tenderness to palpation. No step-offs or deformities. Cardiovascular: Regular rate and rhythm, no murmurs. No rubs or gallops. Normal S1 and S2 Respiratory: Clear to auscultation bilaterally. No wheezes, rales, rhonchi Chest: Chest wall is atraumatic and nontender to palpation. No crepitus, erythema or ecchymosis noted. Abdominal: Soft and nontender. Normal bowel sounds. No guarding or rebound. Nonsurgical abdomen Extremities: No midline thoracic or lumbar spinal tenderness to palpation. No step-offs or deformities. Hips are stable and nontender to palpation. There issome mild left lower lumbar paraspinal tenderness to palpation. No erythema or ecchymosis to the back or flank. There is mild tenderness to palpation of the right lateral malleolus with some mild swelling noted at the ankle. Plantarflexion and dorsiflexion strength intact. Sensation intact. DP and PT pulses intact. Extremities are otherwise atraumatic and nontender to palpation with normal active range of motion no tenderness. Skin: Chronic venous stasis changes to bilateral lower extremities. Neurological: Cranial nerves II through XII are grossly intact. Normal strengthand sensation. Normal cerebellar function The rest of the physical exam is unremarkable Const Vital Signs: 05/14/25 07:09 05/14/25 07:14 05/14/25 09:28 Temperature 97.3 F L Temperature Source Temporal Pulse Rate 58 L 55 L Respiratory Rate 16 18 Respiratory Effort Normal Blood Pressure 104/86 H 108/69 Blood Pressure Mean 92 82 Pulse Ox 100 94 Oxygen Delivery Method Room Air Room Air 05/14/25 11:00 05/14/25 12:08 Temperature 98.6 F Temperature Source Pulse Rate 56 L 67 Respiratory Rate 16 Respiratory Effort Blood Pressure 119/81 H 94/60 Blood Pressure Mean 93 71 Pulse Ox 92 Oxygen Delivery Method MDM MDM MDM Narrative Medical decision making narrative: Patient is an 89-year-old female presenting to the emergency department after a mechanical fall. Patient was seen and examined. Vitals are stable. Patient resting in bed comfortably in no acute distress. Given her age, head trauma on Eliquis, CT the brain and cervical spine were obtained. X-rays were ordered based off her physical exam including pelvis and right ankle x-rays. Given the patient's age, fall and reported back pain although no midline tenderness on exam a CT of the lumbar spine was ordered to assess for any fracture. Given her generalized weakness for the last few weeks basic lab work, EKG and urinalysis were obtained. CBC with chronic leukopenia of 4.2 and a normal hemoglobin. BMP with acute on chronic hyponatremia of 124, which is slightly worse than her baseline recently of 130. BUN and creatinine are around her baseline. AST, alk phos and total bilirubin are slightly worse than her baseline however it looks like they have been uptrending over the past few months. Urinalysis with leukocyte esterase and rare bacteria however there is pretty significant contamination with epithelial cells noted. There are no nitrites. This looks to be contaminated not consistent with a urinary tract infection. CT of the brain with an intracranial aneurysm likely anterior communicating artery that is moderately large at 1.6 cm x 1.4 cm. There is no no intracranial acute pathology. CT cervical spine with no acute abnormalities. CT lumbar with an old T12 compression fracture otherwise no acute abnormalities. Right ankle x-ray, chest x-ray and pelvis x-ray reviewed by myself and no acute abnormalities are seen. Mild cardiomegaly noted on the chest x-ray. Radiology read in agreement. Patient ambulated and states she felt fairly weak while walking. I did update the patient on the CT findings of the aneurysm and she states she was unaware of this. States she does not think she has ever had a CT of the brain done. She denies any headaches or neurologicsymptoms over the past week. [facility], who states with no symptoms she can follow-up outpatient in his office will call her this week. However with the patient's generalized weakness especially while walking and acute on chronic hyponatremia she states she will be nervous going home and I think it is appropriate for her to be admitted for further management. 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 Labs: Laboratory Results - last 24 hr 05/14/25 05/14/25 07:40 08:56 WBC 4.2 L RBC 4.86 Hgb 14.1 Hct 42.2 MCV 86.8 MCH 29.0 MCHC 33.4 RDW Std Deviation 61.0 H RDW Coeff of Payal 20.3 H Plt Count 151 MPV 9.6 Immature Gran % (Auto) 0.500 Neut % (Auto) 71.0 H Lymph % (Auto) 13.3 L [place] % (Auto) 14.5 H Eos % (Auto) 0.2 Baso % (Auto) 0.5 Absolute Neuts (auto) 3.0 Absolute Lymphs (auto) 0.56 L Nucleated RBC % 0 Anisocytosis 1+ Sodium 124 L Potassium 3.6 Chloride 86 L Carbon Dioxide 23.5 Anion Gap 14 BUN 34 H Creatinine 1.55 H Estim Creat Clear Calc 27.48 L Est GFR (MDRD) Non-Af 32 L BUN/Creatinine Ratio 21.7 H Glucose 102 H Uric Acid 6.2 H Calcium 9.0 Total Bilirubin 2.87 H Direct Bilirubin 1.67 H AST 61 H ALT 29 Alkaline Phosphatase 143 H Total Protein 6.4 Albumin 3.5 Globulin 2.8 Lipase 37 TSH 91.900 H Free T4 0.30 L Cortisol AM Sample 21.70 H Urine Color Yellow Urine Clarity Sl. Cloudy Urine pH 7.0 Ur Specific [place] 1.010 Urine Protein 30 H Urine Glucose (UA) 250 H Urine Ketones Negative Urine Occult Blood 10 H Urine Nitrite Negative Urine Bilirubin Negative Urine Urobilinogen 4 H Ur Leukocyte Esterase 500 H Urine RBC 0 SEEN Urine WBC 10-25 SEEN Ur Squamous Epith Cells 10-25 SEEN Ur Transition Epith Cell 0-5 SEEN Urine Bacteria RARE Urine Mucus 0 SEEN Urine Osmolality 302 Ur Random Sodium 35 Radiography Chest X-Ray - ED: 2 View, Read by ED Physician, Normal, No Acute Disease and Cardiomegaly X-Ray: Right Hip, Left Hip, Read by ED Physician and No Fracture Diagnostic Testing: Clinical Impression(s) from Imaging Studies Brain CT 05/14/25 07:50 IMPRESSION: Age-appropriate appearance of the brain. 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 Negative for acute intracranial pathology. Reading Location: [facility] Cervical Spine CT 05/14/25 07:50 IMPRESSION: Age-appropriate appearance of the brain. 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 Negative for acute intracranial pathology. Reading Location: [facility] Lumbar Spine CT 05/14/25 07:50 IMPRESSION: Old T12 compression fracture. Negative for acute abnormality of the lumbar spine. Reading Location: [facility] Ankle X-Ray 05/14/25 08:05 IMPRESSION: Previous orthopedic fixation of the ankle without residual or recurrent fracture Reading Location: [facility] Chest X-Ray 05/14/25 08:05 IMPRESSION: Cardiomegaly. Negative for acute cardiopulmonary disease. Reading Location: [facility] Pelvis X-Ray 05/14/25 08:05 IMPRESSION: Negative for acute abnormality of the pelvis. Reading Location: [facility] Discharge Plan Dx/Rx/DC Orders Clinical Impression: Fall, Brain aneurysm, Transaminitis, Hyponatremia Disposition Disposition: Acute Care Hospital [facility] Discharge Date/Time: 05/14/25 13:16 What to do if you have Problems For any increased pain, shortness of breath, bleeding, nausea or vomiting, chestpain, or any unexpected problems, contact your Primary Care Provider. Call [facility] ([phone]) or report to the closest Emergency Room. Call 911 if necessary. 05/14/25 1626 <Electronically signed by Razia Red MD> Cosigner Signature (if applicable): CC: Dr. Radha Fish MD ~ Signed [facility] Work Phone: Discharge summary Author [facility] Note Date/Time May 17, 2025 5 :02pm [facility] Medical Records Department [address] [place] [address] Transfer to [facility] MR#: [id number] Acct: [id number] Name: ANA MARIA AVALOS Rep #:[id number] 1935 89 From: Tyler Dueñas DO PCP: Dr. Radha Fish MD Status:A DM IN Certification of patient admission REQUIRED AT TIME OF ADMISSION. I CERTIFY THAT POST-HOSPITAL ECF SERVICES ARE REQUIRED TO BE GIVEN ON AN IN-PATIENT BASIS BECAUSE OF THE ABOVE NAMED PATIENT'S NEED FOR LONG-TERM CARE ON A CONTINUING BASIS FOR THE CONDITION(S) FOR WHICH HE/SHE WAS RECEIVING IN-PATIENT HOSPITAL SERVICES PRIOR TO HIS/HER TRANSFER TO THE F. 05/17/25 1702<Electronically signed by Tyler Dueñas DO> Diet Diet Order/Speech Therapy: INPATIENT Hospital Diet / Speech Therapy Order(s) 05/14/25 13:35 Diet: Regular - General Food consistency:: Regular Liquid Consistency:: Regular/Thin Type of Dietary Supplement:: Ensure Plus High Protein Fluid restriction:: 1500 mL Diet Comments: 120 sterling EPHP tid w/ meals; vanilla magic cup w/ dinner Routine Orders/Code Status Code Status: DNRCC-A (No intubation) DC O2, CPAP, BIPAP needs Home O2 Discharge instructions: No Wound(s) back of head: Wound Type: Hematoma back/bottom: Wound Type: Abrasion Therapies Weight Bearing: Full weight bearing Physical Therapy: Eval and Treat Occupational Therapy: Eval and Treat Problem/Diagnosis (1) Physical deconditioning: Status: Acute Code(s): R53.81 - Other malaise Plan 1. Generalized weakness/physical deconditioning-PT and OT will continue to see the patient, she will need at least temporary placement in a senior care facility for inpatient rehab services #2 chronic atrial fibrillation-patient is on Eliquis and metoprolol #3 rate related cardiomyopathy-complicates care, management, recovery, and prognosis #4 hypothyroidism-patient is on levothyroxine #5 severe tricuspid regurg-complicates care, management, recovery, and prognosis #6 recent urinary tract infection-present on admission-patient will remain on Keflex for total of 5 days, urine culture as an outpatient showed E. coli, it isunknown whether the patient took all her medication-she had been prescribed Macrodantin #7 hyperlipidemia-patient is on a statin Total clinical time spent by myself addressing the patient's medical issues, reviewing all of her data, and collaborating with patient's care team: 35 minutes Allergies/Procedures Done in Hospital Allergies bee venom protein (honey bee) Allergy (Unknown, Verified 05/14/25 07:13) UNKNOWN propoxyphene (From Darvocet-N) Allergy (Unknown, Verified 05/14/25 07:13) UNKNOWN codeine Adverse Reaction (Verified 05/14/25 07:13) Other Procedures: None Type of Care/Length of Stay Estimated LOS: Convalescent Care Less Than 30 days Type of Care Needed: Skilled Rehab Potential: Good Prognosis: Good Additional Orders/Day of Discharge H&P will serve as current which was dated: 05/14/25 Day of Discharge: 05/17/25 Dietary and Speech Recommendations Dietitian Recommendations/Changes: Continue Regular diet w/ FR per MD order Adjust ONS per pt request - EPHP tid w/ meals and magic cup w/ dinner instead ofEPHP 4x/day w/ medpass Continue to follow and monitor for changes in res nutritional status and make additional rec as indicated Discharge Plan Admission Admit Date/Time: 05/14/25 12:50 Primary Reason for Your Visit: Debility, cardiomyopathy secondary to atrial fibrillation Attending Provider: Tyler Dueñas Primary Care Provider: Radha Fish Consulting Providers: Fabiana Anderson Instructions Patient Instructions: Types of Brain Aneurysms, Diagnosing a Brain Aneurysm Additional Instructions / Restrictions: 1. You are found to have an aneurysm in your brain as discussed on admission. Your aneurysm was discussed with a neurosurgeon over at [facility]. Please call as soon as possible after discharge and ask for an appointment with Dr. Lopez for your brain aneurysm that was found during hospitalization at [facility]. Discharge Orders/Prescriptions Prescriptions: New furosemide 40 mg Tablet 40 mg PO DAILY Qty: 0 0RF acetaminophen 500 mg Tablet 1,000 mg PO Q8 Qty: 1 0RF cephalexin 500 mg Capsule 500 mg PO Q12 Qty: 0 0RF Rx Instructions: Continue for a total of 7 doses starting the evening of 05/17/2025 Eliquis 5 mg Tablet 5 mg PO BID Qty: 0 0RF Jardiance 25 mg Tablet 25 mg PO DAILY Qty: 0 0RF melatonin 10 mg Tablet,Disintegrating 10 mg PO QHS PRN PRN (Reason: Insomnia) Qty: 0 0RF spironolactone 50 mg Tablet 25 mg PO DAILY Qty: 0 0RF metoprolol tartrate 75 mg tablet 75 mg PO BID Qty: 1 0RF Continued atorvastatin 20 mg tablet 20 mg PO QHS Qty: 90 3RF alendronate 70 mg tablet See Rx Instructions .ROUTE .COMPLEX Qty: 14 0RF Dose Instruction: TAKE 1 TABLET BY MOUTH EVERY WEEK Patient Comments: has "been unfaithful to it" Rx Instructions: TAKE 1 TABLET BY MOUTH EVERY WEEK (DME) Handicap Placard See Rx Instructions .ROUTE .MEDSUPPLY Qty: 1 0RF Rx Instructions: As directed, length of time 3 years levothyroxine 112 mcg tablet See Rx Instructions .ROUTE .COMPLEX Qty: 90 3RF Dose Instruction: TAKE 1 TABLET BY MOUTH DAILY for FOR THYROID Rx Instructions: TAKE 1 TABLET BY MOUTH DAILY for FOR THYROID Discontinued nitrofurantoin monohyd/m-cryst [Macrobid] 100 mg capsule 100 mg PO Q12H 7 Days Qty: 14 0RF Rx Instructions: must administer with a meal/food acetaminophen 500 mg Tablet 1,000 mg PO Q6H PRN PRN (Reason: Pain Score 1-5) Qty: 0 0RF dapagliflozin propanediol [Farxiga] 10 mg tablet 10 mg PO QAM Qty: 30 11RF Eliquis 5 mg tablet 5 mg PO .COMPLEX Qty: 200 3RF Rx Instructions: 5 mg orally twice a day: Fax to [facility] : ; metoprolol tartrate 100 mg tablet 100 mg PO Q12H Qty: 180 3RF furosemide 40 mg tablet 40 mg PO BID Qty: 180 3RF spironolactone 25 mg tablet 50 mg PO DAILY Qty: 60 11RF Patient Comments: taking this pt is unsure of the dose and frequency Referrals / Follow Up: Dr. Doris Real [Other] - As soon as possible Problems: Brain aneurysm Radha Fish MD [Primary Care Provider, Internal Medicine] - As soon as possible Disposition Disposition (needs filled in before D/C Order can be placed): Residential Facility 05/17/251701 <Electronically signed by Tyler Dueñas DO> Cosigner Signature (if applicable): CC: Dr. Radha Fish MD; Dr. Fabiana Anderson DO ~ [facility] Work Phone: Discharge summary Author Tyler Dueñas [facility] Note Date/Time May 17, 2025 5 :50pm [facility] Medical Records Department [address] [place] [address] Discharge Summary 05/17/251701 MR#: [id number] Acct: [id number] Name: ANA MARIA AVALOS Rep #:[id number] 1935 89 From: Tyler Dueñas DO PCP: Dr. Radha Fish MD Status:D IS IN [id number] Prov[facility] Date of Admission: 05/14/25 Date of Discharge: 05/17/25 Primary Care Physician: Dr. Radha Fish MD Reason For Visit: GENERALIZED WEAKNESS/HYPONATREMIA/FALLS Diagnosis Discharge Diagnosis (1) Physical deconditioning: Status: Acute Code(s): R53.81 - Other malaise Plan 1. Generalized weakness/physical deconditioning-PT and OT will continue to see the patient, she will need at least temporary placement in a senior care facility for inpatient rehab services #2 chronic atrial fibrillation-patient is on Eliquis and metoprolol #3 rate related cardiomyopathy-complicates care, management, recovery, and prognosis #4 hypothyroidism-patient is on levothyroxine #5 severe tricuspid regurg-complicates care, management, recovery, and prognosis #6 recent urinary tract infection-present on admission-patient will remain on Keflex for total of 5 days, urine culture as an outpatient showed E. coli, it isunknown whether the patient took all her medication-she had been prescribed Macrodantin #7 hyperlipidemia-patient is on a statin Total clinical time spent by myself addressing the patient's medical issues, reviewing all of her data, and collaborating with patient's care team: 35 minutes Medications at Discharge Home Medications atorvastatin 20 mg tablet 20 mg PO QHS CHOLESTEROL #90 tabs 06/16/24 alendronate 70 mg tablet See Rx Instructions .Route .COMPLEX #14 tabs 06/21/24 Handicap Placard #1 ea 08/15/24 levothyroxine 112 mcg tablet See Rx Instructions .Route .COMPLEX #90 tabs 09/26/24 acetaminophen 500 mg tablet 1,000 mg (2 x 500 mg) PO Q8 #1 TAB 05/17/25 apixaban 5 mg tablet (Eliquis) 5 mg PO BID #0 tabs 05/17/25 cephalexin 500 mg capsule 500 mg PO Q12 #0 caps 05/17/25 empagliflozin 25 mg tablet (Jardiance) 25 mg PO DAILY #0 tabs 05/17/25 furosemide 40 mg tablet 40 mg PO DAILY #0 tabs 05/17/25 melatonin 10 mg disintegrating tablet 10 mg PO QHS PRN PRN Insomnia #0 tabs 05/17/25 metoprolol tartrate 75 mg tablet 75 mg PO BID #1 TAB 05/17/25 spironolactone 50 mg tablet 25 mg (1/2 x 50 mg) PO DAILY #0 tabs 05/17/25 Hospital Course Operations None Procedures None Summary of Care Provided Minutes Spent on Discharge: 32 Hospital Course: This 89-year-old white female was seen in the emergency room at [facility] with a chief complaint of mechanical falls at home and generalized weakness. She had been evaluated for urinary tract infection as an outpatient was placed on Macrobid. Review of medical record here showed a urineculture with presumptive E. coli that was dated 05/09/2025. Workup in the emergency room included a chest x- ray which was unremarkable, CT of the brain was unremarkable for acute findings but did show evidence of an ANUSHA aneurysm. BUN was elevated at 34 and creatinine was 1.55 which was consistent with her baseline. Emergency room physician was initially planning on sending the patient home however she appeared to be impaired as far as her walking was concerned and the hospitalist service was called for admission. Emergency room physician did have a conversation with a neurosurgeon at [facility] and he recommended outpatient follow-up for her aneurysm. Patient was admitted to [place] [address] and seen by PT and OT, it was felt that she would benefit from inpatient skilled services and TCU agreed to take the patient. On 05/17/2025, patient was seen and examined:alert, oriented x3, no apparent distress and healthy appearing General Appearance: cooperative, well kempt and well developed Orientation / Consciousness: awake, oriented to person, oriented to place and oriented to time HEENT normocephalic and moist oral mucous membranes Eyes PERRL, EOMs intact bilaterally and conjunctivae normal Neck supple, no JVD, thyroid normal and no carotid bruits General: trachea midline Resp normal respiratory effort, no retractions, no use of accessory muscles and clearto auscultation bilaterally Auscultation: Negative for rales, rhonchi or wheezes Cardio S1 normal heart sound, S2 normal heart sound, no rub and no gallops Cardio Narrative: Heart rate and rhythm is irregular GI normal to inspection, nondistended, normoactive bowel sounds, soft to palpation,non-tender and non-distended Extremity Extremity Narrative: Patient has stasis dermatitis changes over both lower extremities, there is generalized edema noted over both lower legs General Extremity: edema bilateral lower extremity Skin Skin Narrative: Stasis dermatitis changes are noted over both lower legs Neuro oriented x3, CN's II-XII intact bilaterally, moves all extremities, no focal motor deficits and no sensory deficits noted Sensorium / Orientation: awake and alert Speech: speech normal Psych affect normal Patient was transferred to TCU on 05/17/2025 in stable condition Weight / BMI Weight Weight: 75.5 kg Body Mass Index (BMI) 25.2 ABG / Lab / Microbiology Data 05/15/25 06:17 05/15/25 06:17 Laboratory: Laboratory Results - last 24 hr 05/17/25 06:22: Free T4 0.70 L D/C Instructions DC O2, CPAP, BIPAP Needs Home O2 Discharge instructions: No Meaningful Use Info Meaningful Use Meaningful Use Diagnoses (Choose all that apply): None applicable Discharge Plan Admission Admit Date/Time: 05/14/25 12:50 Primary Reason for Your Visit: Debility, cardiomyopathy secondary to atrial fibrillation Attending Provider: Tyler Dueñas Primary Care Provider: Radha Fish Consulting Providers: Fabiana Anderson Instructions Patient Instructions: Types of Brain Aneurysms, Diagnosing a Brain Aneurysm Additional Instructions / Restrictions: 1. You are found to have an aneurysm in your brain as discussed on admission. Your aneurysm was discussed with a neurosurgeon over at [facility]. Please call as soon as possible after discharge and ask for an appointment with Dr. Lopez for your brain aneurysm that was found during hospitalization at [facility]. Discharge Orders/Prescriptions Prescriptions: New furosemide 40 mg Tablet 40 mg PO DAILY Qty: 0 0RF acetaminophen 500 mg Tablet 1,000 mg PO Q8 Qty: 1 0RF cephalexin 500 mg Capsule 500 mg PO Q12 Qty: 0 0RF Rx Instructions: Continue for a total of 7 doses starting the evening of 05/17/2025 Eliquis 5 mg Tablet 5 mg PO BID Qty: 0 0RF Jardiance 25 mg Tablet 25 mg PO DAILY Qty: 0 0RF melatonin 10 mg Tablet,Disintegrating 10 mg PO QHS PRN PRN (Reason: Insomnia) Qty: 0 0RF spironolactone 50 mg Tablet 25 mg PO DAILY Qty: 0 0RF metoprolol tartrate 75 mg tablet 75 mg PO BID Qty: 1 0RF Continued atorvastatin 20 mg tablet 20 mg PO QHS Qty: 90 3RF alendronate 70 mg tablet See Rx Instructions .ROUTE .COMPLEX Qty: 14 0RF Dose Instruction: TAKE 1 TABLET BY MOUTH EVERY WEEK Patient Comments: has "been unfaithful to it" Rx Instructions: TAKE 1 TABLET BY MOUTH EVERY WEEK (DME) Handicap Shivard See Rx Instructions .ROUTE .MEDSUPPLY Qty: 1 0RF Rx Instructions: As directed, length of time 3 years levothyroxine 112 mcg tablet See Rx Instructions .ROUTE .COMPLEX Qty: 90 3RF Dose Instruction: TAKE 1 TABLET BY MOUTH DAILY for FOR THYROID Rx Instructions: TAKE 1 TABLET BY MOUTH DAILY for FOR THYROID Discontinued nitrofurantoin monohyd/m-cryst [Macrobid] 100 mg capsule 100 mg PO Q12H 7 Days Qty: 14 0RF Rx Instructions: must administer with a meal/food acetaminophen 500 mg Tablet 1,000 mg PO Q6H PRN PRN (Reason: Pain Score 1-5) Qty: 0 0RF dapagliflozin propanediol [Farxiga] 10 mg tablet 10 mg PO QAM Qty: 30 11RF Eliquis 5 mg tablet 5 mg PO .COMPLEX Qty: 200 3RF Rx Instructions: 5 mg orally twice a day: Fax to [facility] : ; metoprolol tartrate 100 mg tablet 100 mg PO Q12H Qty: 180 3RF furosemide 40 mg tablet 40 mg PO BID Qty: 180 3RF spironolactone 25 mg tablet 50 mg PO DAILY Qty: 60 11RF Patient Comments: taking this pt is unsure of the dose and frequency Referrals / Follow Up: Dr. Doris Real [Other] - As soon as possible Problems: Brain aneurysm Radha Fish MD [Primary Care Provider, Internal Medicine] - As soon as possible Disposition Disposition (needs filled in before D/C Order can be placed): Residential Facility Charges/Coding Visit Charges Inpatient E&M: 90331 Disch Hosp >30min 05/23/25 1403 <Electronically signed by Tyler Dueñas DO> Cosigner Signature (if applicable): CC: Dr. Radha Fish MD; Dr. Tyler Dueñas DO~ Signed [facility] Work Phone: Evaluation note* Diagnosis Onset Date Resolution Status Paroxysmal atrial flutter ac [place] Essential hypertension chron ic Non-rheumatic mitral regurgitation chronic Nonrheumatic aortic (valve) stenosis chronic Nonrheumatic tricuspid valve regurgitation chronic Paroxysmal atrial fibrillation chronic Pure hypercholesterolemia ch ronic Debility acute Hyperlipidemia acute Hypokalemia acute Hypothyroidism acute Chronic diastolic congestive heart failure chronic Essential hypertension chron ic Osteoporosis chronic Paroxysmal atrial fibrillation chronic Paroxysmal atrial flutter ac [place] Chronic diastolic congestive heart failure chronic Essential hypertension chron ic Nonrheumatic aortic (valve) stenosis chronic Paroxysmal atrial fibrillation chronic Foul smelling urine acute Hx of fracture of femur acut e GERD (gastroesophageal reflux disease) chronic Osteoporosis chronic Paroxysmal atrial fibrillation chronic [facility] Work Phone: Evaluation note* Diagnosis Onset Date Resolution Status Debility acute Hyperlipidemia acute Hypokalemia acute Hypothyroidism acute Chronic diastolic congestive heart failure chronic Essential hypertension chron ic Osteoporosis chronic Paroxysmal atrial fibrillation chronic Paroxysmal atrial flutter ac [place] Chronic diastolic congestive heart failure chronic Essential hypertension chron ic Nonrheumatic aortic (valve) stenosis chronic Paroxysmal atrial fibrillation chronic Foul smelling urine acute Hx of fracture of femur acut e GERD (gastroesophageal reflux disease) chronic Osteoporosis chronic Paroxysmal atrial fibrillation chronic [facility] Work Phone: Evaluation note* Diagnosis Onset Date Resolution Status Femoral distal fracture acut e Essential hypertension chron ic GERD (gastroesophageal reflux disease) chronic Osteoporosis chronic Paroxysmal atrial fibrillation chronic [facility] Work Phone: Evaluation note* Diagnosis Onset Date Resolution Status Femoral distal fracture acut e Essential hypertension chron ic GERD (gastroesophageal reflux disease) chronic Osteoporosis chronic Paroxysmal atrial fibrillation chronic Renal insufficiency acute Chronic diastolic congestive heart failure chronic Essential hypertension chron ic Nonrheumatic aortic (valve) stenosis chronic Paroxysmal atrial fibrillation chronic Pulmonary hypertension chron ic [facility] Work Phone: Evaluation note* Diagnosis Onset Date Resolution Status Renal insufficiency acute Chronic diastolic congestive heart failure chronic Essential hypertension chron ic Nonrheumatic aortic (valve) stenosis chronic Paroxysmal atrial fibrillation chronic Pulmonary hypertension chron ic Pain of left calf acute Paroxysmal atrial fibrillation chronic Tachycardia noneactive [facility] Work Phone: Evaluation note* Diagnosis Onset Date Resolution Status Renal insufficiency acute Chronic diastolic congestive heart failure chronic Essential hypertension chron ic Nonrheumatic aortic (valve) stenosis chronic Paroxysmal atrial fibrillation chronic Pulmonary hypertension chron ic Pain of left calf acute Paroxysmal atrial fibrillation chronic Tachycardia noneactive Pain of left calf acute Essential hypertension chron ic Osteoporosis chronic Persistent atrial fibrillation chronic [facility] Work Phone: Evaluation note* Diagnosis Onset Date Resolution Status Pain of left calf acute Paroxysmal atrial fibrillation chronic Tachycardia noneactive Pain of left calf acute Essential hypertension chron ic Osteoporosis chronic Persistent atrial fibrillation chronic [facility] Work Phone: Evaluation note* Diagnosis Onset Date Resolution Status Pain of left calf acute Paroxysmal atrial fibrillation chronic Tachycardia noneactive Pain of left calf acute Essential hypertension chron ic Osteoporosis chronic Persistent atrial fibrillation chronic Acute bronchitis noneactive [facility] Work Phone: Evaluation note* Diagnosis Onset Date Resolution Status Pain of left calf acute Essential hypertension chron ic Osteoporosis chronic Persistent atrial fibrillation chronic Acute bronchitis noneactive Essential hypertension chron ic Nonrheumatic aortic (valve) stenosis chronic Paroxysmal atrial fibrillation chronic Pulmonary hypertension [facility] Work Phone: Evaluation note* Diagnosis Onset Date Resolution Status Acute bronchitis noneactive Essential hypertension chron ic Nonrheumatic aortic (valve) stenosis chronic Paroxysmal atrial fibrillation chronic Pulmonary hypertension chron [facility] Work Phone: Evaluation note* Diagnosis Onset Date Resolution Status Essential hypertension chron ic Nonrheumatic aortic (valve) stenosis chronic Paroxysmal atrial fibrillation chronic Pulmonary hypertension chron ic Essential hypertension chron ic Hypothyroidism (acquired) ch ronic Osteoporosis chronic Paroxysmal atrial fibrillation chronic Essential hypertension chron ic Hypothyroidism (acquired) ch ronic Nonrheumatic aortic (valve) stenosis chronic Paroxysmal atrial fibrillation chronic Pulmonary hypertension chron [facility] Work Phone: Evaluation note* Diagnosis Onset Date Resolution Status Essential hypertension chron ic Hypothyroidism (acquired) ch ronic Osteoporosis chronic Paroxysmal atrial fibrillation chronic Essential hypertension chron ic Hypothyroidism (acquired) ch ronic Nonrheumatic aortic (valve) stenosis chronic Paroxysmal atrial fibrillation chronic Pulmonary hypertension chron [facility] Work Phone: Evaluation noteNo assessment information available [facility] Work Phone: Evaluation note* Diagnosis Onset Date Resolution Status Essential hypertension chron ic Hypothyroidism chronic Osteoporosis chronic Persistent atrial fibrillation chronic Angina at rest acute Longstanding persistent atrial fibrillation acute Essential hypertension chron ic Nonrheumatic aortic (valve) stenosis chronic Pulmonary hypertension chron ic [facility] Work Phone: Evaluation note* Diagnosis Atrial fibrillation, unspecified type (HCC)- [facility] Atrial fibrillation, persistent (HCC) Atrial [facility] Diagnosis Atrial fibrillation, persistent (HCC)- Primary Atrial fibrillation Other forms of angina pectoris (HCC) Chronic diastolic CHF (congestive heart failure) (HCC) Chronic diastolic heart failure [facility] Chronic diastolic heart failure (HCC)- Primary Chronic diastolic heart failure Atrial fibrillation, chronic (HCC) Atrial fibrillation Tricuspid valve insufficiency, unspecified etiology [facility] Author Fabiana Anderson [facility] Note Date/Time May 14, 2025 4 :26pm [facility] Medical Records Department [address] [place] [id number] H&P Exam - Hospitalist 05/14/25 1242 MR#: [id number] Acct: [id number] Name: ANA MARIA AVALOS Rep #:[id number] : 1935 89 From: Fabiana Anderson DO PCP: Dr. Radha Fish MD Status:A DM IN Location: VT3 BB561-8 HPI - General General Date of Admission: 05/14/25 Date of Service: 05/14/25 Chief Complaint: weakness and falls/ HPI Narrative ANA MARIA AVALOS, is a 89 F who presented to the emergency department at [facility] on 05/14/2025 with a chief complaint of falls. Patient reported that she was walking back to the kitchen to have a snack when her walker slipped out from under her causing her to fall and strike the back of herhead. She was on Eliquis for atrial fibrillation. She did not lose consciousness. She denies any significant pain to her head or neck but did endorse some left low back pain and right ankle pain. She reported over the last month she has felt weaker than typical as well. She has hyponatremia at baseline and her primary care physician has been working this up. She has not felt ill. She had been evaluated for urinary tract infection and was placed on Macrobid. Urine culture here shows significant growth with presumptive E. coli from a culture on 05/09/2025. OSVALDO was greater than 16. Patient does live at home alone. Vital signs on presentation showed a temperature of 97.3, heart rate 58, respiratory rate was 16, blood pressure is 104/86 and pulse ox was 100% on room air. CBC showed a white count of 4.2 with a normal hemoglobin. She did have a mild left shift with 71% neutrophilia. Chemistry panel showed worsening hyponatremia with a sodium of 124, chloride of 86, BUN was 34 with a serum creatinine of 1.55 (consistent with her baseline), LFTs show chronic hyperbilirubinemia which is stable. UA is somewhat suggestive of infection sowing leuk esterase, white cells, bacteria but was negative for nitrates. Extensive imaging was performed given fall. CT of the brain was unremarkable for acute findings but did show evidence of an ANUSHA aneurysm that was 1.[address] of the cervical spine was unremarkable for acute findings. CT of the ankle was unremarkable for acute findings. CT of the pelvis was unremarkable for acute findings. Chest x-ray was unremarkable for acute findings. CT of thelumbar spine was negative for acute findings. Initially, the ED physician was planning on sending her home however with her sodium being lower than typical and her falls admission was felt to be warranted. Dr. Red from the emergency department also did have a conversationwith Dr. Lopez, who is a neurosurgeon at [facility],and he recommended outpatient follow-up for the aneurysm indicating he would seeher after discharge next week. [facility] Medical History Cough UTI (urinary tract infection) Mood disorder Insomnia [...] Depression Joint pain Headache Snoring Post-nasal drainage Dyspnea on exertion Anxiety Insomnia due to medical condition Hypothyroidism (acquired) Anticoagulation goal of INR 2 to 3 Hypertension Atrial fibrillation with normal ventricular rate 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 Home Medications ?Medication ?Instructions ?Recorded ?Last Taken ?Type acetaminophen 500 mg tablet 1,000 mg (2 x 500 mg) PO Q 6H PRN 09/11/21 Unknown Rx PRN Pain Score 1-5 #0 tabs atorvastatin 20 mg tablet 20 mg PO QHS CHOLESTEROL #90 tabs 06/16/24 Unknown Rx alendronate 70 mg tablet See Rx Instructions .Route 1 08/21/23 Unknown Rx .COMPLEX #14 tabs Handicap Placard #1 ea 08/15/24 Unknown Rx levothyroxine 112 mcg tablet See Rx Instructions .Rout e 09/26/24 Unknown Rx .COMPLEX #90 tabs dapagliflozin propanediol 10 mg 10 mg PO QAM #30 tabs 11/15/24 Unknown Rx tablet (Farxiga) apixaban 5 mg tablet (Eliquis) 5 mg PO .COMPLEX #200 t abs 02/09/25 Unknown Rx metoprolol tartrate 100 mg tablet 100 mg PO Q12H #180 tabs 03/28/25 Unknown Rx furosemide 40 mg tablet 40 mg PO BID #180 tabs 04/20 Unknown Rx nitrofurantoin 100 mg PO Q12H 7 days #14 ca ps 05/09/25 Unknown Rx monohydrate/macrocrystals 100 mg capsule (Macrobid) spironolactone 25 mg tablet 50 mg (2 x 25 mg) PO DAILY #60 tabs 05/09/25 Unknown Rx Allergy/AdvReac Type Severity Reaction Status Date / Time bee venom protein (honey bee) Allergy Unknown UNKNOWN Verified 05/14/25 07:13 propoxyphene (From Allergy Unknown UNKNOWN Verified 05/14/25 07:13 Darvocet-N) codeine AdvReac Other Verified 05/14/25 07:13 Family History Mother Heart disease High cholesterol [...] activity do you participate in: none ROS Constitutional Constitutional: Reports fatigue and weakness; Denies anorexia, change in weight,chills, fever(s), malaise, night sweats or other Eyes Eyes: Denies blurry vision, change in eye color, change in vision, discharge from eye(s), double vision, erythema, eye pain, loss of vision or other ENT HEENT: Reports abnormal hearing and hearing loss; Denies dysphagia, ear pain, epistaxis, headache(s), nasal congestion, nasal discharge, post nasal drip, sinus pressure, sore throat or other Cardiovascular Cardiovascular: Denies chest pain, claudication, dyspnea on exertion, edema, lightheadedness, orthopnea, palpitations, paroxysmal nocturnal dyspnea, rapid heart rate, syncope or other Respiratory/Chest Respiratory/Chest: Denies cough, dyspnea, excessive phlegm production, hemoptysis, productive cough, shortness of breath at rest, shortness of breath with exertion, wheezing or other Gastrointestinal Gastrointestinal: Reports loose stools; Denies abdominal pain, coffee ground emesis, constipation, diarrhea, dyspepsia, hematemesis, hematochezia, melena, nausea, vomiting or other Genitourinary Genitourinary: Reports burning urination and urinary frequency; Denies difficulty urinating, dysuria, hematuria, nocturia, urinary hesitancy, urinary incontinence, urinary urgency or other Musculoskeletal Musculoskeletal: Reports back pain and other Details: Ankle pain ; Denies arthralgias, joint pain, joint stiffness, joint swelling, myalgias or neck pain Neurologic Neurologic: Denies abnormal gait, abnormal speech, confusion, disequilibrium, dizziness, focal weakness, headache(s), numbness, paresthesias, seizure-like activity, seizures, syncope, tingling, tremor(s) or other Psychiatric Psychiatric: Denies anxiety, depression, homicidal ideation, suicidal ideation or other Endocrine Endocrinology: Reports polydipsia; Denies change in body appearance, cold intolerance, excessive sweating, heat intolerance, polyuria or other Hematologic/Lymphatic Hematologic/Lymphatic: Reports easy bleeding and easy bruising; Denies anemia, lymphadenopathy or other Allergic/Immunologic Allergic/Immunologic: Denies rhinitis, hives, eczemia, asthma or other Vital Signs Vital Signs Vital Signs: 05/14/25 07:09 05/14/25 07:14 05/14/25 09:28 Temperature 97.3 F L Temperature Source Temporal Pulse Rate 58 L 55 L Respiratory Rate 16 18 Respiratory Effort Normal Blood Pressure 104/86 H 108/69 Blood Pressure Mean 92 82 Pulse Ox 100 94 Oxygen Delivery Method Room Air Room Air 05/14/25 11:00 05/14/25 12:08 Temperature 98.6 F Temperature Source Pulse Rate 56 L 67 Respiratory Rate 16 Respiratory Effort Blood Pressure 119/81 H 94/60 Blood Pressure Mean 93 71 Pulse Ox 92 Oxygen Delivery Method Weight Weight: 77.61 kg Body Mass Index (BMI) 26.0 Physical Exam Const alert, oriented x3, no apparent distress, average body habitus, healthy appearing and well nourished Constitutional Narrative: Very pleasant, elderly, white female, sitting up in bed, appears younger than stated age, does not appear toxic, very pleasant General Appearance: cooperative HEENT normocephalic, head/scalp atraumatic and moist oral mucous membranes; Negative for hearing grossly normal bilaterally HEENT Narrative: Dentition is fair, Mallampati is 2, no thrush, mild hearing loss Eyes PERRL, EOMs intact bilaterally and conjunctivae normal Eyes Narrative: No scleral icterus Neck supple Neck Narrative: Trachea midline, no thyroid enlargement, no lymphadenopathy Resp normal respiratory effort, no retractions, no use of accessory muscles and clearto auscultation bilaterally Auscultation: Negative for rales, rhonchi or wheezes Cardio regular rate, S1 normal heart sound, S2 normal heart sound, no murmurs, no rub, no gallops and no clicks; Negative for regular rhythm Cardio Narrative: Irregularly irregular rhythm with good rate control-mildly bradycardic GI normal to inspection, nondistended, normoactive bowel sounds, soft to palpation and non-tender Extremity Extremity Narrative: Trace bilateral lower extremity edema with no clubbing or cyanosis Skin no jaundice, no petechiae and no mottling Skin Narrative: Scattered ecchymotic changes on bilateral upper extremities/lower extremities invarious stages of healing, no significant open wounds Neuro CN's II-XII intact bilaterally, moves all extremities and no focal motor deficits Speech: speech normal Psych affect normal Psych Narrative: Extremely pleasant, makes good eye contact, patient interacts appropriately Results Lab / Micro Data 05/14/25 07:40 05/14/25 07:40 Labs: Laboratory Results - last 24 hr 05/14/25 07:40: WBC 4.2 L, RBC 4.86, Hgb 14.1, Hct 42.2, MCV 86.8, MCH 29.0, MCHC 33.4, RDW Std Deviation 61.0 H, RDW Coeff of Payal 20.3 H, Plt Count 151, MPV9.6, Immature Gran % (Auto) 0.500, Neut % (Auto) 71.0 H, Lymph % (Auto) 13.3 L, Pick[place] % (Auto) 14.5 H, Eos % (Auto) 0.2, Baso % (Auto) 0.5, Absolute Neuts (auto)3.0, Absolute Lymphs (auto) 0.56 L, Nucleated RBC % 0, Anisocytosis 1+, Sodium 124 L, Potassium 3.6, Chloride 86 L, Carbon Dioxide 23.5, Anion Gap 14, BUN 34 H, Creatinine 1.55 H, Estim Creat Clear Calc 27.48 L, Est GFR (MDRD) Non-Af 32 L,BUN/Creatinine Ratio 21.7 H, Glucose 102 H, Calcium 9.0, Total Bilirubin 2.87 H,Direct Bilirubin 1.67 H, AST 61 H, ALT 29, Alkaline Phosphatase 143 H, Total Protein 6.4, Albumin 3.5, Globulin 2.8, Lipase 37 05/14/25 08:56: Urine Color Yellow, Urine Clarity Sl. Cloudy, Urine pH 7.0, Ur Specific [place] 1.010, Urine Protein 30 H, Urine Glucose (UA) 250 H, Urine Ketones Negative, Urine Occult Blood 10 H, Urine Nitrite Negative, Urine Bilirubin Negative, Urine Urobilinogen 4 H, Ur Leukocyte Esterase 500 H, Urine RBC 0 SEEN, Urine WBC 10-25 SEEN, Ur Squamous Epith Cells 10-25 SEEN, Ur Transition Epith Cell 0-5 SEEN, Urine Bacteria RARE, Urine Mucus 0 SEEN Imaging Radiology Impression Brain CT 05/14/25 07:50 IMPRESSION: Age-appropriate appearance of the brain. 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 Negative for acute intracranial pathology. Reading Location: [facility] Cervical Spine CT 05/14/25 07:50 IMPRESSION: Age-appropriate appearance of the brain. 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 Negative for acute intracranial pathology. Reading Location: [facility] Lumbar Spine CT 05/14/25 07:50 IMPRESSION: Old T12 compression fracture. Negative for acute abnormality of the lumbar spine. Reading Location: [facility] Ankle X-Ray 05/14/25 08:05 IMPRESSION: Previous orthopedic fixation of the ankle without residual or recurrent fracture Reading Location: [facility] Chest X-Ray 05/14/25 08:05 IMPRESSION: Cardiomegaly. Negative for acute cardiopulmonary disease. Reading Location: [facility] Pelvis X-Ray 05/14/25 08:05 IMPRESSION: Negative for acute abnormality of the pelvis. Reading Location: [facility] Assessment & Plan Assessment/Plan (1) Brain aneurysm: (2) Fall: (3) Hyponatremia: (4) Low-grade chronic hyperbilirubinemia: (5) Hypothyroidism: (6) Nonadherence to medication: PLAN: Plan Falls/Generalized Weakness - having falls at home...just a few - PT/OT consulted - TSH is 91 and I suspect this is the etiology for her falls and weakness - SW/CM consulted to assist with D/C planning patient may need home health versus temporary placement depending on functional status Hypoosmolar hyponatremia - Patient has had issues with hyponatremia lately - It looks like her levels have been between 130 and 133 for several months - Patient has not been compliant with her Synthroid and I suspect this is likelythe etiology - Uric acid is up so may have somewhat of a component of SIADH - TSH was 91 and I suspect this is the etiology - Urine sodium is 35 on diuretics -Urine osmolality was pending - will fluid restrict to 1500 cc daily - continue Lasix and Aldactone for now - Repeat sodium in a.m. - Patient is asymptomatic other than having generalized weakness Acute on chronic hypothyroidism secondary to medication nonadherence - Patient is to be on levothyroxine 112 mcg daily - Per discussion with patient she has not been compliant with her Synthroid - Will give one-time dose IV levothyroxine and start her home Synthroid dose tomorrow - Recheck free T4 in 48 hours - Will need outpatient follow-up for repeat TSH in 6 to 8 weeks - Suspect this is the etiology for most of her symptoms E. coli UTI - Culture sent from facility on 05/09/2025 - Presumptive E. coli at infectious levels - Will start Keflex 500 p.o. twice daily and treat for 5 days first dose early afternoon 05/14/2025 ANUSHA brain aneurysm - ANUSHA aneurysm 1.6 x 1.4 cm - ED physician called [facility] neurosurgeon on-call-->Dr. Lopez - Recommended follow-up within a week to 2 after discharge for evaluation no acute intervention needed Chronic hyperbilirubinemia - At baseline Chronic RV dilation/chronic HFrEF/HPL/essential hypertension - Patient previously with reduced EF however most recent echocardiogram showed improved EF to 57% - Continue home atorvastatin - Continue home Farxiga - continue home Lasix 40 twice daily - continue home metoprolol 100 mg twice daily - continue home Aldactone 50 mg daily - Continue ongoing outpatient follow-up with cardiology - Does have some mild bilateral lower extremity edema which she says is worse than typical however her TSH is off and I suspect it is related to this - Continue to monitor clinically Persistent atrial fibrillation - Continue home metoprolol - Continue on apixaban Osteoporosis - Restart alendronate at discharge DVT prophylaxis - Continue home apixaban CODE STATUS - DNR CCA with no intubation per emergency department physician Charges/Coding Visit Charges Inpatient E&M: 29818 Init Hosp L3 05/14/25 1626 <Electronically signed by Fabiana Anderson DO> Cosigner Signature (if applicable): CC: Dr. Radha Fish MD; Dr. Fabiana Anderson DO~ Signed [facility] Work Phone: [facility] Work Phone: Hospital Discharge instructionsAmbulatory Orders* Urology Location: None Selected [facility] Work Phone: Hospital Discharge instructionsAdditional Instructions 1. You are found to have an aneurysm in your brain as discussed on admission. Your aneurysm was discussed with a neurosurgeon over at [facility]. Please call as soon as possible after discharge and ask for an appointment with Dr. Lopez for your brain aneurysm that was found during hospitalization at [facility]. Date of Discharge: 05/17/25[facility] Work Phone: Progress note Author Eun Lloyd [facility] Note Date/Time January 05, 2025 10:07 am [facility] [address] [place] [address] OFFICE VISIT Date of Service: 01/05/25 MR#: [id number] Acct: [id number] Name: ANA MARIA AVALOS Rep #: [id number] : 1935 Provider: SANDRA Santiago Age/Sex: 89/F Location: [facility] Status: Signed HPI HPI History of Present [...] r/s from 01/04 with MH: see clinicals. [employer] Required: No Is patient in pain?: No [...] 3 weeks ago. unsure if passed out.) [facility] Medical History Elevated C-reactive protein (CRP) [...] Information Echocardiogram done in March 2024 at [facility] demonstrated an ejection fraction of 57%. [...] 57 01/05/25 1007 <Electronically signed by Eun aMx> Date _ Eun FLORES Cosigner Signature: Date (if applicable) CC: Dr. Radha Fish MD ~ [facility] Work Phone: Progress note Author Tyler Dueñas [facility] Note Date/Time May 16, 2025 6 :36pm [facility] Medical Records Department [address] [place] [address] Progress Note - Hospitalist 05/15/251916 MR#: [id number] Acct: [id number] Name: ANA MARIA AVALOS Rep #:[id number] : 1935 89 From: Tyler Dueñas DO PCP: Dr. Radha Fish MD Status:A DM IN Location: VT3 CH262-2 Reason for Visit Chief Complaint: weakness and falls/ Subjective Subjective Patient was seen and examined today, she appears in no distress, she had family members in the room at the time of my examination. Patient stated that she would like to go to TCU if possible for short-term rehab services, she understands that her insurance may not approve this-patient has Medicare advantage plan. I ask her to think about an alternate place that she might wantto go in case there was no bed available in TCU. Objective Data Objective Data Vital Signs: Vital Signs Temp Pulse Resp BP Pulse Ox O2 Del Method 97.9 F 66 17 95/65 97 Room Air 05/15/25 14:30 05/15/25 14:30 05/15/25 14:30 05/15/25 14:30 05/15/25 14:30 05/15/25 14:30 Oxygen Delivery Method Room Air Weight: 74.6 kg Body Mass Index (BMI) 25.0 Intake & Output: Intake and Output for Last 24 Hours 05/13/25 05/14/25 05/15/25 23:59 23:59 23:59 Intake Total 1500 / 1500 Balance 1500 / 1500 Lab / Micro Data 05/15/25 06:17 05/15/25 06:17 Labs: Laboratory Results - last 24 hr 05/15/25 06:17: WBC 4.2 L, RBC 4.54, Hgb 13.2, Hct 38.9, MCV 85.7, MCH 29.1, MCHC 33.9, RDW Std Deviation 59.0 H, RDW Coeff of Payal 20.3 H, Plt Count 146 L, MPV 9.6, Immature Gran % (Auto) 0.700, Neut % (Auto) 65.4, Lymph % (Auto) 15.3 L, [place] % (Auto) 18.1 H, Eos % (Auto) 0.0, Baso % (Auto) 0.5, Absolute Neuts (auto) 2.7, Absolute Lymphs (auto) 0.64 L, Nucleated RBC % 0, Differential Comment SCANNED, Anisocytosis 2+, Sodium 126 L, Potassium 3.5, Chloride 89 L, Carbon Dioxide 24.7, Anion Gap 12, BUN 35 H, Creatinine 1.41 H, Estim Creat Clear Calc 27.82 L, Est GFR (MDRD) Non-Af 36 L, BUN/Creatinine Ratio 25.1 H, Glucose 82, Calcium 8.6, Phosphorus 3.8, Magnesium 2.5 H, Total Bilirubin 2.12 H, AST 52 H, ALT 26, Alkaline Phosphatase 128 H, Total Protein 5.6 L, Albumin 3.3L, Globulin 2.3, Albumin/Globulin Ratio 1.4 Physical Exam Const alert, oriented x3, no apparent distress and healthy appearing General Appearance: cooperative, well kempt and well developed Orientation / Consciousness: awake, oriented to person, oriented to place and oriented to time HEENT normocephalic and moist oral mucous membranes Eyes PERRL, EOMs intact bilaterally and conjunctivae normal Neck supple, no JVD, thyroid normal and no carotid bruits General: trachea midline Resp normal respiratory effort, no retractions, no use of accessory muscles and clearto auscultation bilaterally Auscultation: Negative for rales, rhonchi or wheezes Cardio S1 normal heart sound, S2 normal heart sound, no rub and no gallops Cardio Narrative: Heart rate and rhythm is irregular GI normal to inspection, nondistended, normoactive bowel sounds, soft to palpation,non-tender and non-distended Extremity Extremity Narrative: Patient has stasis dermatitis changes over both lower extremities, there is generalized edema noted over both lower legs General Extremity: edema bilateral lower extremity Skin Skin Narrative: Stasis dermatitis changes are noted over both lower legs Neuro oriented x3, CN's II-XII intact bilaterally, moves all extremities, no focal motor deficits and no sensory deficits noted Sensorium / Orientation: awake and alert Speech: speech normal Psych affect normal Assessment & Plan Assessment/Plan (1) Physical deconditioning: PLAN: Plan 1. Generalized weakness/physical deconditioning-PT and OT will continue to see the patient, she will need at least temporary placement in a senior care facility for inpatient rehab services #2 chronic atrial fibrillation-patient is on Eliquis and metoprolol #3 rate related cardiomyopathy-complicates care, management, recovery, and prognosis #4 hypothyroidism-patient is on levothyroxine #5 severe tricuspid regurg-complicates care, management, recovery, and prognosis #6 recent urinary tract infection-present on admission-patient will remain on Keflex for total of 5 days, urine culture as an outpatient showed E. coli, it isunknown whether the patient took all her medication-she had been prescribed Macrodantin #7 hyperlipidemia-patient is on a statin Total clinical time spent by myself addressing the patient's medical issues, reviewing all of her data, and collaborating with patient's care team: 35 minutes Charges/Coding Visit Charges Inpatient E&M: 35634 Subs Hosp L2 05/16/251835 <Electronically signed by Tyler Dueñas DO> Cosigner Signature (if applicable): CC: ~ Signed [facility] Work Phone: Progress note Author Tyler Dueñas [facility] Note Date/Time May 17, 2025 5 :04pm [facility] Medical Records Department [address] [place] [address] Progress Note - Hospitalist 05/16/25 1443 MR#: [id number] Acct: [id number] Name: ANA MARIA AVALOS Rep #:[id number] : 1935 89 From: Tyler Dueñas DO PCP: Dr. Radha Fish MD Status:A DM IN Location: [facility] BE574-4 Reason for Visit Chief Complaint: weakness and falls/ Subjective Subjective Patient was seen and examined today, we are awaiting skilled placement for inpatient rehab services. I noted in the patient's medical record that she had an abdominal CT performed in January of this year which indicated she might have cirrhosis. Patient has no history of alcohol intake and she denies any history of liver disease. According to the medical record, patient does have a history of a cardiomyopathy which could be secondary to chronic atrial fib. Patient hasno specific complaints today. Objective Data Objective Data Vital Signs: Vital Signs Temp Pulse Resp BP Pulse Ox O2 Del Method 97.5 F L 65 16 110/67 97 Room Air 05/16/25 10:00 05/16/25 11:30 05/16/25 10:00 05/16/25 11:30 05/16/25 10:00 05/16/25 10:42 Oxygen Delivery Method Room Air Weight: 74.5 kg Body Mass Index (BMI) 24.9 Intake & Output: Intake and Output for Last 24 Hours 05/14/25 05/15/25 05/16/25 23:59 23:59 23:59 Intake Total 1500 / 1500 Balance 1500 / 1500 Lab / Micro Data 05/15/25 06:17 05/15/25 06:17 Physical Exam Narrative alert, oriented x3, no apparent distress and healthy appearing General Appearance: cooperative, well kempt and well developed Orientation / Consciousness: awake, oriented to person, oriented to place and oriented to time HEENT normocephalic and moist oral mucous membranes Eyes PERRL, EOMs intact bilaterally and conjunctivae normal Neck supple, no JVD, thyroid normal and no carotid bruits General: trachea midline Resp normal respiratory effort, no retractions, no use of accessory muscles and clearto auscultation bilaterally Auscultation: Negative for rales, rhonchi or wheezes Cardio S1 normal heart sound, S2 normal heart sound, no rub and no gallops Cardio Narrative: Heart rate and rhythm is irregular GI normal to inspection, nondistended, normoactive bowel sounds, soft to palpation,non-tender and non-distended Extremity Extremity Narrative: Patient has stasis dermatitis changes over both lower extremities, there is generalized edema noted over both lower legs General Extremity: edema bilateral lower extremity Skin Skin Narrative: Stasis dermatitis changes are noted over both lower legs Neuro oriented x3, CN's II-XII intact bilaterally, moves all extremities, no focal motor deficits and no sensory deficits noted Sensorium / Orientation: awake and alert Speech: speech normal Psych affect normal Assessment & Plan Assessment/Plan (1) Physical deconditioning: PLAN: Plan 1. Generalized weakness/physical deconditioning-PT and OT will continue to see the patient, she will need at least temporary placement in a senior care facility for inpatient rehab services #2 chronic atrial fibrillation-patient is on Eliquis and metoprolol #3 rate related cardiomyopathy-complicates care, management, recovery, and prognosis #4 hypothyroidism-patient is on levothyroxine #5 severe tricuspid regurg-complicates care, management, recovery, and prognosis #6 recent urinary tract infection-present on admission-patient will remain on Keflex for total of 5 days, urine culture as an outpatient showed E. coli, it isunknown whether the patient took all her medication-she had been prescribed Macrodantin #7 hyperlipidemia-patient is on a statin Total clinical time spent by myself addressing the patient's medical issues, reviewing all of her data, and collaborating with patient's care team: 35 minutes Charges/Coding Visit Charges Inpatient E&M: 86136 Subs Hosp L2 05/17/25 1704 <Electronically signed by Tyler Dueñas DO> Cosigner Signature (if applicable): CC: ~ Signed [facility] [place] Work Phone: Reason for referral (narrative)* Outpatient Procedure (Routine) - Authorized Specialty Diagnoses / Procedures Referred By Contac t Referred To Contact [facility] [place] Diagnoses Atrial fibrillation, unspecified type (HCC) Procedures ECG COMPLETE ECG ROUTINE ECG W/LEAST 12 LDS W/I&R Danny Edmond MD [address] [place] [address] [place] [address] Referral ID Status Reason Start Date Expiration Date Visits Requested Visits Authorized [id number] Authorized Auto-Generat ed Referral 12/02/2023 12/01/2024 1 1 [facility] for referral (narrative)No reason for [facility] Phone: Summary Purpose Family History [...] Date/ Time Advance Directives Yes October 15 11:11am Living Will Yes September 04 11:30am Power of Manager Fund Yes September 04, 2021 11:30am Advance Directive Response Recorded Date/ Time Advance Directives Yes October 15 10:11am Living Will Yes September 04 10:30am Power of Manager Fund Yes September 04, 2021 10:30am Advance Directive Response Recorded Date/ Time Advance Directives on File Yes Decem 2021 11:12am Name of Medical Power of Manager Fund Prestonzoey Liebermanber July 15, 2022 11:12am Advance Directives Yes July 11:12am Living Will Yes July 15 11:12am Power of Manager Fund Yes July 15, 2022 11:12am Advance Directive Response Recorded Date/ Time Advance Directives on File Yes Decem 2021 12:12pm Name of Medical Power of Manager Fund Preston Avalos July 15, 2022 12:12pm Advance Directives Yes July 12:12pm Living Will Yes July 15 12:12pm Power of Manager Fund Yes July 15, 2022 12:12pm Advance Directive Response Recorded Date/ Time Advance Directives Yes July 12:12pm Living Will Yes July 15 12:12pm Power of Manager Fund Yes July 15, 2022 12:12pm Advance Directive Response Recorded Date/ Time Advance Directives Yes January 01 3:04pm Living Will Yes January 01, 2023 3 :04pm Power of Manager Fund Yes January 01, 2023 3:04pm Advance Directive Response Recorded Date/ Time Advance Directives Yes January 28 10:48am Living Will Yes January 28, 2023 10:48am Power of Manager Fund Yes January 28 10:48am Advance Directive Response Recorded Date/ Time Advance Directives Yes January 28 9:48am Living Will Yes January 28, 2023 9:48am Power of Manager Fund Yes January 28 9:48am Advance Directive Response Recorded Date/ Time Living Will Yes January 28, 2023 10:48am Do you have a Healthcare Power of Manager Fund? Yes January 28, 2023 10:48am Living Will Yes July 03 1:38am Do you have a Healthcare Power of Manager Fund? Yes July 03, 2024 1:38am Living Will Yes August 03 1:20am Do you have a Healthcare Power of Manager Fund? Yes August 03, 2024 1:20am Living Will Yes September 03 1:45am Do you have a Healthcare Power of Manager Fund? Yes September 03, 2024 1:45am Living Will Yes October 01, 2024 1:39am Do you have a Healthcare Power of Manager Fund? Yes October 01, 2024 1:39am Advance Directives Yes January 28 10:48am Advance Directive Response Recorded Date/ Time Living Will Yes January 28, 2023 10:48am Do you have a Healthcare Power of Manager Fund? Yes January 28, 2023 10:48am Living Will Yes September 03 1:45am Do you have a Healthcare Power of Manager Fund? Yes September 03, 2024 1:45am Living Will Yes October 01, 2024 1:39am Do you have a Healthcare Power of Manager Fund? Yes October 01, 2024 1:39am Living Will Yes November 01, 2024 12:13am Do you have a Healthcare Power of Manager Fund? Yes November 01, 2024 12:13am Living Will Yes December 01, 2024 12 :27am Do you have a Healthcare Power of Manager Fund? Yes December 01, 2024 12:27am Advance Directives Yes January 28 10:48am Advance Directive Response Recorded Date/ Time Living Will Yes January 28, 2023 10:48am Do you have a Healthcare Pow er of Manager Fund? Yes January 28, 2023 10:48am Living Will Yes October 01, 2024 1:39am Do you have a Healthcare Pow er of Manager Fund? Yes October 01, 2024 1:39am Do you have a Healthcare Pow er of Manager Fund? Yes January 30, 2025 7:40pm Name of Medical Power of Manager Fund preston lawrence January 30, 2025 7:40pm Living Will Yes November 01, 2024 12:13am Do you have a Healthcare Pow er of Manager Fund? Yes November 01, 2024 12:13am Living Will Yes December 01, 2024 12 :27am Do you have a Healthcare Pow er of Manager Fund? Yes December 01, 2024 12:27am Living Will Yes December 31, 2024 8 :50pm Do you have a Healthcare Pow er of Manager Fund? Yes December 31, 2024 8:50pm Advance Directives Yes January 28 10:48am Advance Directive Response Recorded Date/ Time Living Will Yes January 28, 2023 10:48am Do you have a Healthcare Pow er of Manager Fund? Yes January 28, 2023 10:48am Do you have a Healthcare Pow er of Manager Fund? Yes January 30, 2025 7:40pm Name of Medical Power of Manager Fund preston lawrence Cindy 30th, 2025 7:40pm Living Will Yes November 01, 2024 12:13am Do you have a Healthcare Pow er of Manager Fund? Yes November 01, 2024 12:13am Living Will Yes December 01, 2024 12 :27am Do you have a Healthcare Pow er of Manager Fund? Yes December 01, 2024 12:27am Living Will Yes December 31, 2024 8 :50pm Do you have a Healthcare Pow er of Manager Fund? Yes December 31, 2024 8:50pm Advance Directives Yes February 10 8:29am Advance Directive Response Recorded Date/ Time Living Will Yes January 28, 2023 10:48am Do you have a Healthcare Pow er of Manager Fund? Yes January 28, 2023 10:48am Do you have a Healthcare Pow er of Manager Fund? Yes January 30, 2025 7:40pm Name of Medical Power of Manager Fund preston lawrence January 30, 2025 7:40pm Living Will Yes November 01, 2024 12:13am Do you have a Healthcare Pow er of Manager Fund? Yes November 01, 2024 12:13am Living Will Yes December 01, 2024 12 :27am Do you have a Healthcare Pow er of Manager Fund? Yes December 01, 2024 12:27am Living Will Yes December 31, 2024 8 :50pm Do you have a Healthcare Pow er of Manager Fund? Yes December 31, 2024 8:50pm Advance Directives Yes January 01 3:04pm Advance Directive Response Recorded Date/ Time Do you have a Healthcare Pow er of Manager Fund? Yes January 30, 2025 7:40pm Name of Medical Power of Manager Fund preston lawrence January 30, 2025 7:40pm Living Will Yes November 01, 2024 12:13am Do you have a Healthcare Pow er of Manager Fund? Yes November 01, 2024 12:13am Living Will Yes December 01, 2024 12 :27am Do you have a Healthcare Pow er of Manager Fund? Yes December 01, 2024 12:27am Living Will Yes December 31, 2024 8 :50pm Do you have a Healthcare Pow er of Manager Fund? Yes December 31, 2024 8:50pm Advance Directives Yes Cindy 1st, 202 3 3:04pm Advance Directive Response Recorded Date/ Time Do you have a Healthcare Pow er of Manager Fund? Yes January 30, 2025 7:40pm Name of Medical Power of Manager Fund preston lawrence January 30, 2025 7:40pm Living Will Yes November 01, 2024 12:13am Do you have a Healthcare Pow er of Manager Fund? Yes November 01, 2024 12:13am Living Will Yes December 01, 2024 12 :27am Do you have a Healthcare Pow er of Manager Fund? Yes December 01, 2024 12:27am Living Will Yes December 31, 2024 8 :50pm Do you have a Healthcare Pow er of Manager Fund? Yes December 31, 2024 8:50pm Advance Directives Yes March 01 12:14pm Advance Directive Response Recorded Date/ Time Do you have a Healthcare Pow er of Manager Fund? Yes January 30, 2025 7:40pm Name of Medical Power of Manager Fund preston lawrence January 30, 2025 7:40pm Living Will Yes December 01, 2024 12 :27am Do you have a Healthcare Pow er of Manager Fund? Yes December 01, 2024 12:27am Living Will Yes December 31, 2024 8 :50pm Do you have a Healthcare Pow er of Manager Fund? Yes December 31, 2024 8:50pm Advance Directives Yes March 01 12:14pm Advance Directive Response Recorded Date/ Time Do you have a Healthcare Pow er of Manager Fund? Yes January 30, 2025 7:40pm Name of Medical Power of Manager Fund preston lawrence January 30, 2025 7:40pm Living Will Yes December 31, 2024 8 :50pm Do you have a Healthcare Pow er of Manager Fund? Yes December 31, 2024 8:50pm Advance Directives Yes March 01 12:14pm Advance Directive Response Recorded Date/ Time Do you have a Healthcare Pow er of Manager Fund? Yes January 30, 2025 7:40pm Name of Medical Power of Manager Fund preston lawrence January 30, 2025 7:40pm Do you have a Healthcare Pow er of Manager Fund? Yes May 18, 2025 3:02pm Name of Medical Power of Manager Fund Preston Niko paula rueda May 18, 2025 3:02pm Advance Directives Yes March 01 12:14pm Do you have a Healthcare Pow er of Manager Fund? Yes May 14, 2025 1:42pm Chief Complaint and Reason for Visit Chief [...] ISSUES S/O EKG to see if a-fib LRachael GUNTERRDERS afib afib afib afib 6 M FU Reason for Visit Renal insufficiency Chronic diastolic congestive heart failure Essential hypertension Nonrheumatic aortic (valve) stenosis Paroxysmal atrial fibrillation Pulmonary hypertension Pain of left calf Paroxysmal atrial fibrillation Tachycardia Pain of left calf Essential hypertension Osteoporosis Persistent atrial fibrillation Chief Complaint S/O PAIN IN LEFT LOWER LEG CALF ISSUES S/O EKG to see if a-fib LRachael EORDERS afib afib afib afib 6 M FU Thinks in sinus rhythm Tammie Vasel S/O Reason for Visit Pain of left calf Paroxysmal atrial fibrillation Tachycardia Pain of left calf Essential hypertension Osteoporosis Persistent atrial fibrillation Chief Complaint PAIN IN LEFT LOWER L EG CALF ISSUES S/O EKG to see if a-fib LRachael EORDERS afib afib afib afib 6 M FU Thinks in sinus rhythm Tammie Vasel S/O Cough EORDER/COUGH S/O Reason for Visit Pain of left calf Paroxysmal atrial fibrillation Tachycardia Pain of left calf Essential hypertension Osteoporosis Persistent atrial fibrillation Acute bronchitis Chief Complaint EKG to see if a-fib Micky.Eliane EORDERS afib afib afib afib 6 M [...] sob January 30, 2025 7:17 pm S/P [facility] 02/08February 22, 2025 12:5 2pm Reason for [...] sob January 30, 2025 7:17 pm S/P [facility] 02/08February 22, 2025 12:5 2pm Hospital FU February 23, 2025 10:5 2am Chief Complaint Admit Date S/O November 02, 2024 10:3 3am S/O December 02, 2024 12:36p m Pt r/s from 01/04 with MH: see clinicals. January 05, 2025 9:25am S/O January 10, 2025 10:3 1am E-ORDER, SOB January 30, 2025 12:3 1pm sob January 30, 2025 7:17 pm S/P [facility] 02/08February 22, 2025 12:5 2pm Hospital FU [...] sob January 30, 2025 7:17 pm S/P [facility] 02/08February 22, 2025 12:5 2pm Hospital FU February 23, 2025 10:5 2am 6 M FU March 01, 2025 10:5 2am Chief Complaint Admit Date S/O December 02, 2024 12:36p m Pt r/s from 01/04 with MH: see clinicals. January 05, 2025 9:25am S/O January 10, 2025 10:3 1am E-ORDER, SOB January 30, 2025 12:3 1pm sob January 30, 2025 7:17 pm S/P [facility] 02/08February 22, 2025 12:5 2pm Hospital FU [...] sob January 30, 2025 7:17 pm S/P [facility] 02/08February 22, 2025 12:5 2pm Hospital FU [...] sob January 30, 2025 7:17 pm S/P [facility] 7/9 February 22, 2025 12:5 2pm Hospital [...] sob January 30, 2025 7:17 pm S/P [facility] /February 22, 2025 12:5 2pm Hospital FU [...] 1:02pm UTI (urinary tract infection) May 1:02pm Chief Complaint Admit Date E-ORDER, SOB January 30, 2025 12:3 1pm sob January 30, 2025 7:17 pm S/P [facility] 02/08February 22, 2025 12:5 2pm Hospital FU February 23, 2025 10:5 2am 6 M FU March 01, 2025 10:5 2am ACUTE-POSSIBLE UTI March 20, 2025 10 :40am concern for uti April 09, 2025 10:59am 3 M FU April 14, 2025 10:21am E-ORDER/ SOB April 14, 2025 11:28am EORDER May 02, 2025 12:41pm ACUTE-RECURRENT UTI May 09, 2025 1: 02pm GENERALIZED WEAKNESS/HYPONATREMIA/FALLS May 14, 2025 12:50pm GENERALIZED WEAKNESS/HYPONATREMIA/FALLS May 15, 2025 7:17pm GENERALIZED WEAKNESS/HYPONATREMIA/FALLS May 16, 2025 2:43pm GENERALIZED WEAKNESS/HYPONATREMIA/FALLS May 17, 2025 4:50pm GENERALIZED WEAKNESS, HYPONATREMIA, FALL S May 17, 2025 6:13pm SWELLING May 29, 2025 9 :46am Reason for Visit Admit Date Fatigue February [...] 1:02pm UTI (urinary tract infection) May 1:02pm Brain aneurysm May 14, 2025 1 2:50pm Fall May 14, 2025 1 2:50pm Hyponatremia May 14, 2025 1 2:50pm Hypothyroidism May 14, 2025 1 2:50pm Low-grade chronic hyperbilirubinemia Oct floresita 2024 12:50pm Nonadherence to medication May 14, 2025 12:50pm Physical deconditioning May 14 12:50pm Transaminitis May 14, 2025 1 2:50pm Atrial fibrillation May 17, 2025 6 :13pm Chronic heart failure with p reserved ejection fraction (HFpEF) May 17, 2025 6:13pm Coronary artery disease May 17 6:13pm Debility May 17, 2025 6 :13pm Essential (primary) hypertension May 17, 2025 6:13pm Hypokalemia May 17, 2025 6 :13pm UTI (urinary tract infection) May 172024 6:13pm Vitamin D deficiency May 17, 2025 6:13pm CKD (chronic kidney disease), stage III May 17, 2025 6:13pm GERD (gastroesophageal reflux disease) O ctober 2024 6:13pm Hyperlipidemia May 17, 2025 6 :13pm Fall May 17, 2025 6 :13pm Hyponatremia May 17, 2025 6 :13pm Hypothyroidism May 17, 2025 6 :13pm Reason for Referral Specialty Diagnoses / Procedures Referred By Contac t Referred To Contact [facility] [place] Diagnoses Atrial fibrillation, persistent (HCC) Procedures CARDIOVASCULAR MEDICINE OP FOLLOW UP APPT ORDER Danny Edmond MD [address] [place] [address] [facility] [place] [facility] [address] [address] Referral ID Status Reason Start Date Expiration Date Visits Requested Visits Authorized [id number] Ref Not Required PCP Requested Referral 12/24/2023 12/23/2024 1 1 Specialty Diagnoses / Procedures Referred By Contac t Referred To Contact Diagnoses Atrial fibrillation, persistent (HCC) Procedures REFERRAL TO CHF CLINIC OFFICE/OUTPATIENT [facility] 60 MINUTES Danny Edmond MD [address] [place] [address] Referral ID Status Reason Start Date Expiration Date Visits Requested Visits Authorized [id number] Authorized PCP Requested Referral 12/24/2023 12/23/2024 1 1 Specialty Diagnoses / Procedures Referred By Contac t Referred To Contact [facility] [place] Diagnoses Atrial fibrillation, persistent (HCC) Procedures ECHO ECHO TTHRC R-T 2D W/WOM-MODE COMPL SPEC&COLR D Danny Edmond MD [address] [place] [address] [address] Referral ID Status Reason Start Date Expiration Date Visits Requested Visits Authorized [id number] Authorized Auto-Generat ed Referral 12/24/2023 12/23/2024 1 1 Specialty Diagnoses / Procedures Referred By Contac t Referred To Contact [facility] [place] Procedures CARDIOVASCULAR MEDICINE OP FOLLOW UP APPT ORDER Reno Dukes MD [address] [place] [address] [facility] [place] [address] [place] [address] Referral ID Status Reason Start Date Expiration Date Visits Requested Visits Authorized [id number] Ref Not Required PCP Requested Referral 09/01/2024 11/30/2024 1 1 Additional Source Comments INFORMATION SOURCE (unrecogn ized section and content) DATE CREATED AUTHOR 01/22/2018 [facility] DATE CREATED AUTHOR AUTHOR'S ORGANIZ ATION 02/13/2025 [facility] DATE CREATED AUTHOR AUTHOR'S ORGANIZ ATION 05/23/2025 [facility] DATE CREATED AUTHOR AUTHOR'S ORGANIZ ATION 05/25/2025 [facility] DATE CREATED AUTHOR AUTHOR'S ORGANIZ ATION 06/14/2025 [facility] Goals (unrecognized section and content) Goals [...] Huntley MD Attending Provider Active Tammie Pillai CRIB ATTENDANT, CRIB ATTENDANT-C Referring Provider Active Team Status: Inactive Member [...] Inactive Member Role Status Dates Dr. Kash Baibn MD Attending Provider, Referring Provider Active Dr. Radha Fish MD Primary Care Provider, Famil y Provider Active Dheeraj Rene CRIB ATTENDANT, CRIB ATTENDANT-C Other Provider Active Team Status: Inactive Member Role Status Dates Dr. Radha Fish MD Primary Care Provider Active Tammie Pillai CRIB ATTENDANT, CRIB ATTENDANT-C Attending Provider, Referring P erin Active Team [...] Provider, Refer ring Provider Active Tyler Nguyen CRIB ATTENDANT, CRIB ATTENDANT-C Attending Provider Active Team Status: Active Member Role Status Dates Dr. Kash Babin MD Attending Provider, Referring Provider Active Dr. Radha Fish MD Primary Care Provider, Famil y Provider Active Dheeraj Rene CRIB ATTENDANT, CRIB ATTENDANT-C Other Provider Active Team Status: Inactive Member Role Status Dates Dr. Radha Fish MD Primary Care Provider Active Tyler Nguyen CRIB ATTENDANT, CRIB ATTENDANT-C Attending Provider, Referring Prov ider Active Team [...] Provider, Famil y Provider Active Dheeraj Rene CRIB ATTENDANT, CRIB ATTENDANT-C Other Provider Active Eun Lloyd PA, PA [...] Care Provider, Famil y Provider Active Dheeraj Rnee CRIB ATTENDANT, CRIB ATTENDANT-C Other Provider Active Eun FLORES, PA Attending [...] Fish MD Primary Care Provider Active Eun FLORES PA Attending Provider, Referr ing Provider Active Team Status: Active Member Role Status Dates Dr. Radha Fish MD Primary Care Provider Active Dr. Michael Salvador MD Attending Provider, Referring Pro vider Active Team Status: Active Member Role Status Dates Dr. Radha Fish MD Primary Care Provider Active Eun FLORES PA Referring Provider, Other Provider Active Dr. Casey Rod DO Attending Provider Active Emergency Medical Service Coordinator Relationship Specialty Start Date End Date Radha Fish MD [address] [place], [place] [phone] PCP - General Internal Medicine 08/28/21 Srinath Alba [address] [place], [place] [phone] Cardiology 12/15/17 Michael Salvador MD [address] [facility] [address] [place], [place] [phone] Physician Cardiology 11/12/18 Danny Edmond MD [address] [place] [address] Primary Staff Physician Cardiology 10/19/18 Emergency Medical Service Coordinator Relationship Specialty Start Date End Date Radha Fish MD [address] [place] [address] PCP - General Internal Medicine 08/28/21 Srinath Alba [address] [facility] [place] [address] (Fax) Cardiology 12/15/17 Michael Salvador MD [address] [place] [address] Physician Cardiology 11/12/18 Danny Edmond MD [address] [place] [address] Primary Staff Physician Cardiology 10/19/18 Emergency Medical Service Coordinator Relationship Specialty Start Date End Date Radha Fish MD [address] [place] [address] PCP - General Internal Medicine 08/28/21 Srinath Alba [address] [facility] [place] [address] (Fax) Cardiology 12/15/17 Michael Salvador MD [address] [place] [address] Physician Cardiology 11/12/18 Danny Edmond MD [address] [place] [address] Primary Staff Physician Cardiology 10/19/18 Emergency Medical Service Coordinator Relationship Specialty Start Date End Date Radha Fish MD [address] [place] [address] PCP - General Internal Medicine 08/28/21 Srinath Alba [address] [place], [place] [id number] Cardiology 12/15/17 Michael Salvador MD [address] [phone] Physician Cardiology 11/12/18 Danny Edmond MD [address] [place] [address] Primary Staff Physician Cardiology 10/19/18 Emergency Medical Service Coordinator Relationship Specialty Start Date End Date Radha Fish MD [address] [place], [place] [address] [phone]- PCP - General Internal Medicine 08/28/21 Srinath Alba [address] [place], [place] [phone] Cardiology 12/15/17 Michael Salvador MD [address] [phone] Physician Cardiology 11/12/18 Danny Edmond MD [address] [place] [address] Primary Staff Physician Cardiology 10/19/18 Team Status: [...] 15, 2024 End: September 02, 2024 Dr. Rdaha Fish MD Family Provider Active Start: August [...] 12, 2024 End: September 30, 2024 Eun FLORES, PA Attending Provider Active Start: September 12, [...] End: January 30, 2025 Eun FLORES PA Referring Provider Active Start: January 10, 2025 End: January 30, 2025 Team Status: Active Member Role/Relationship Status Dates Dr. Radha Fish MD Primary Care Provider Active Start: January 30, 2025 Tammie Pillai CRIB ATTENDANT, CRIB ATTENDANT-C Attending Provider Active Start: January 30, 2025 Tammie Pillai CRIB ATTENDANT, CRIB ATTENDANT-C Referring Provider Active Start: January 30, 2025 Team Status: Inactive Member Role/Relationship Status Dates Dr. Radha Fish MD Primary Care Provider Active Start: January 30, 2025 End: January 31, 2025 Dr. Car Solomon , Emergency Provider Active Start: January 30, 2025 End: January 31, 2025 Team Status: Inactive Member Role/Relationship Status Dates Dr. Radha Fish MD Primary Care Provider Active Start: January 30, 2025 End: January 30, 2025 Tammie Pillai CRIB ATTENDANT, CRIB ATTENDANT-C Attending Provider Active Start: January 30, 2025 End: January 30, 2025 Tammie Pillai CRIB ATTENDANT, CRIB ATTENDANT-C Referring Provider Active Start: January 30, 2025 [...] 2025 End: January 30, 2025 Tammie Pillai CRIB ATTENDANT, CRIB ATTENDANT-C Attending Provider Active Start: January 30, 2025 End: January 30, 2025 Tammie Pillai CRIB ATTENDANT, CRIB ATTENDANT-C Referring Provider Active Start: January 30, 2025 [...] 2025 End: January 30, 2025 Tammie Pillai CRIB ATTENDANT, CRIB ATTENDANT-C Attending Provider Active Start: January 30, 2025 End: January 30, 2025 Tammie Pillai CRIB ATTENDANT, CRIB ATTENDANT-C Referring Provider Active Start: January 30, 2025 [...] Provider Active Start: February 13, 2025 Dr. Rahda Fish MD Attending Provider Active Start: February [...] 2025 End: January 30, 2025 Tammie Pillai CRIB ATTENDANT, CRIB ATTENDANT-C Attending Provider Active Start: January 30, 2025 End: January 30, 2025 Tammie Pillai CRIB ATTENDANT, CRIB ATTENDANT-C Referring Provider Active Start: January 30, 2025 [...] February 23, 2025 End: February 23, 2025 CASSANDRA AggarwalC Attending Provider Active Start: February 23, 2025 [...] 2025 End: March 20, 2025 Carla Coughlin CRIB ATTENDANT-C Attending Provider Active Start: March 20, 2025 End: March 20, 2025 Team Status: Inactive Member Role/Relationship Status Dates Dr. Radha Fish MD Primary Care Provider Active Start: March 20, 2025 End: March 20, 2025 Carla Coughlin , CRIB ATTENDANT-C Attending Provider Active Start: March 20, 2025 End: March 20, 2025 Carla Coughlin , CRIB ATTENDANT-C Referring Provider Active Start: March 20, 2025 [...] End: January 30, 2025 Tammie Pillai NP, CRIB ATTENDANT-C Attending Provider Active Start: January 30, 2025 End: January 30, 2025 Tammie Pillai CRIB ATTENDANT, CRIB ATTENDANT-C Referring Provider Active Start: January 30, 2025 [...] 23, 2025 End: February 23, 2025 Carla Ungerer , CRIB ATTENDANT-C Attending Provider Active Start: February 23, 2025 [...] 2025 End: March 20, 2025 Carla Coughlin CRIB ATTENDANT-C Attending Provider Active Start: March 20, 2025 End: March 20, 2025 Team Status: Inactive Member Role/Relationship Status Dates Dr. Radha Fish MD Primary Care Provider Active Start: March 20, 2025 End: March 20, 2025 Carla Coughlin , CRIB ATTENDANT-C Attending Provider Active Start: March 20, 2025 End: March 20, 2025 Carla Coughlin CRIB ATTENDANT-C Referring Provider Active Start: March 20, 2025 End: March 20, 2025 Team Status: Inactive Member Role/Relationship Status Dates Dr. Radha Fish MD Primary Care Provider Active Start: April 09, 2025 End: April 09, 2025 Dr. Radha Fish MD Referring Provider Active Start: April 09, 2025 End: April 09, 2025 Dheeraj Rene NP, CRIB ATTENDANT-C Attending Provider Active S tart: April 09, 2025 End: April 09, 2025 Team Status: Active Member Role/Relationship Status Dates Dr. Radha Fish MD Primary Care Provider Active Start: April 09, 2025 Dheeraj Rene CRIB ATTENDANT, CRIB ATTENDANT-C Attending Provider Active S tart: April 09, 2025 Team Status: Inactive Member Role/Relationship Status Dates Dr. Radha Fish MD Primary Care Provider Active Start: April 09, 2025 End: April 09, 2025 Dr. Radha Fish MD Referring Provider Active Start: April 09, 2025 End: April 09, 2025 Dheeraj Rene CRIB ATTENDANT, CRIB ATTENDANT-C Attending Provider Active S tart: April 09, [...] 05, 2025 Eun Lloyd PA, PA Attending physician Active Start: January 05, 2025 End: January 05, 2025 Team Status: Inactive Member Role/Relationship Status Dates Dr. Rahda Fish MD Primary care physician Activ e [...] 2025 End: January 30, 2025 Tammie Pillai CRIB ATTENDANT, CRIB ATTENDANT-C Attending physician Active Start: January 30, 2025 End: January 30, 2025 Tammie Pillai NP, CRIB ATTENDANT-C Referring Provider Active Start: January 30, 2025 End: January 30, 2025 Team Status: Inactive Member Role/Relationship Status Dates Dr. Radha Fish MD Primary care physician Activ e Start: January 30, 2025 End: January 31, 2025 Dr. Car Solomon DO Attending physician Active Start: January 30, 2025 End: January 31, 2025 Dr. aCr Solomon DO Emergency Departme nt Physician Active [...] February 22, 2025 Eun FLORES, PA Attending physician Active Start: February 22, [...] End: March 20, 2025 Carla Coughlin , CRIB ATTENDANT-C Attending physician Active Start: March 20, 2025 End: March 20, 2025 Team Status: Inactive Member Role/Relationship Status Dates Dr. Radha Fish MD Primary care physician Activ e Start: March 20, 2025 End: March 20, 2025 Carla Coughlin , CRIB ATTENDANT-C Attending physician Active Start: March 20, 2025 End: March 20, 2025 Carla Coughlin , CRIB ATTENDANT-C Referring Provider Active Start: March 20, 2025 End: March 20, 2025 Team Status: Inactive Member Role/Relationship Status Dates Dr. Radha Fish MD Primary care physician Activ e Start: April 09, 2025 End: April 09, 2025 Dheeraj Rene CRIB ATTENDANT, CRIB ATTENDANT-C Attending physician Active Start: April 09, 2025 End: April 09, 2025 Team Status: Inactive Member Role/Relationship Status Dates Dr. Radha Fish MD Primary care physician Activ e Start: April 09, 2025 End: April 09, 2025 Dr. Radha Fish MD Referring Provider Active Start: April 09, 2025 End: April 09, 2025 Dheeraj Rene CRIB ATTENDANT, CRIB ATTENDANT-C Attending physician Active Start: April 09, 2025 [...] 2025 End: January 30, 2025 Tammie Pillai CRIB ATTENDANT, CRIB ATTENDANT-C Attending physician Active Start: January 30, 2025 End: January 30, 2025 Tammie Pillai CRIB ATTENDANT, CRIB ATTENDANT-C Referring Provider Active Start: January 30, 2025 [...] 2025 End: March 20, 2025 Carla Coughlin CRIB ATTENDANT-C Attending physician Active Start: March 20, 2025 End: March 20, 2025 Team Status: Inactive Member Role/Relationship Status Dates Dr. Radha Fish MD Primary care physician Activ e Start: March 20, 2025 End: March 20, 2025 Carla Coughlin CRIB ATTENDANT-C Attending physician Active Start: March 20, 2025 End: March 20, 2025 Carla Coughlin CRIB ATTENDANT-C Referring Provider Active Start: March 20, 2025 End: March 20, 2025 Team Status: Inactive Member Role/Relationship Status Dates Dr. Radha Fish MD Primary care physician Activ e Start: April 09, 2025 End: April 09, 2025 Dheeraj Rene CRIB ATTENDANT, CRIB ATTENDANT-C Attending physician Active Start: April 09, 2025 End: April 09, 2025 Team Status: Inactive Member Role/Relationship Status Dates Dr. Radha Fish MD Primary care physician Activ e Start: April 09, 2025 End: April 09, 2025 Dr. Radha Fish MD Referring Provider Active Start: April 09, 2025 End: April 09, 2025 Dheeraj Rene CRIB ATTENDANT, CRIB ATTENDANT-C Attending physician Active Start: April 09, 2025 End: April 09, 2025 Team Status: Inactive Member Role/Relationship Status Dates Dr. Radha Fish MD Primary care physician Activ e Start: April 14, 2025 End: April 14, 2025 Dr. Radha Fish MD Referring Provider Active Start: April 14, 2025 End: April 14, 2025 Eun FLORES PA Attending physician Active Start: April 14, 2025 End: April 14, 2025 Team Status: Inactive Member Role/Relationship Status Dates Dr. Radha Fish MD Primary care physician Activ e Start: April 14, 2025 End: April 14, 2025 Eun FLORES, PA Attending physician Active Start: April 14, 2025 End: April 14, 2025 Eun Lloyd PA, PA Referring Provider Active Start: April 14, 2025 End: April 14, 2025 Team Status: Active Member Role/Relationship Status Dates Dr. Radha Fish MD Primary care physician Activ e Start: May 02, 2025 Eun Lloyd PA, PA Attending physician Active Start: May 02, 2025 Eun Lloyd PA, PA Referring Provider Active Start: May 02, 2025 Team Status: Inactive Member Role/Relationship Status Dates Dr. Radha Fish MD Primary care physician Activ e Start: May 09, 2025 End: May 09, 2025 Dr. Radha Fish MD Referring Provider Active Start: May 09, 2025 End: May 09, 2025 Carla Coughlin CRIB ATTENDANT-C Attending physician Active Start: May 09, 2025 End: May 09, 2025 Team Status: Inactive Member Role/Relationship Status Dates Dr. Radha Fish MD Primary care physician Activ e Start: January 30, 2025 End: January 30, 2025 Tammie Pillai CRIB ATTENDANT, CRIB ATTENDANT-C Attending physician Active Start: January 30, 2025 End: January 30, 2025 Tammie Pillai CRIB ATTENDANT, CRIB ATTENDANT-C Referring Provider Active Start: January 30, 2025 [...] End: March 20, 2025 LINNEA Aggarwal Attending physician Active Start: March 20, 2025 End: March 20, 2025 Team Status: Inactive Member Role/Relationship Status Dates Dr. Radha Fish MD Primary care physician Activ e Start: March 20, 2025 End: March 20, 2025 Carla Coughlin CRIB ATTENDANT-C Attending physician Active Start: March 20, 2025 End: March 20, 2025 Carla Coughlin CRIB ATTENDANT-C Referring Provider Active Start: March 20, 2025 End: March 20, 2025 Team Status: Inactive Member Role/Relationship Status Dates Dr. Radha Fish MD Primary care physician Activ e Start: April 09, 2025 End: April 09, 2025 Dheeraj Rene CRIB ATTENDANT, CRIB ATTENDANT-C Attending physician Active Start: April 09, 2025 End: April 09, 2025 Team Status: Inactive Member Role/Relationship Status Dates Dr. Radha Fish MD Primary care physician Activ e Start: April 09, 2025 End: April 09, 2025 Dr. Radha Fish MD Referring Provider Active Start: April 09, 2025 End: April 09, 2025 Dheeraj Rene CRIB ATTENDANT, CRIB ATTENDANT-C Attending physician Active Start: April 09, 2025 [...] physician Activ e Start: May 02, 2025 End: May 02, 2025 Eun Lloyd PA, PA Attending physician Active Start: May 02, 2025 End: May 02, 2025 Eun Lloyd PA, PA Referring Provider Active Start: May 02, 2025 End: May 02, 2025 Team Status: Inactive Member Role/Relationship Status Dates Dr. Radha Fish MD Primary care physician Activ e Start: May 09, 2025 End: May 09, 2025 Dr. Radha Fish MD Referring Provider Active Start: May 09, 2025 End: May 09, 2025 Carla Coughlin CRIB ATTENDANT-C Attending physician Active Start: May 09, 2025 End: May 09, 2025 Team Status: Inactive Member Role/Relationship Status Dates Dr. Radha Fish MD Primary care physician Activ e Start: May 09, 2025 End: May 09, 2025 Carla Coughlin CRIB ATTENDANT-C Attending physician Active Start: May 09, 2025 End: May 09, 2025 Carla Coughlin CRIB ATTENDANT-C Referring Provider Active Start: May 09, 2025 End: May 09, 2025 Team Status: Inactive Member Role/Relationship Status Dates Dr. Radha Fish MD Primary care physician Activ e Start: May 14, 2025 End: May 17, 2025 Dr. Razia Red MD Emergency Departmen t Physician Active Start: May 14, 2025 End: May 17, 2025 Dr. Fabiana Anderson , Admitting physician Active Start: May 14, 2025 End: May 17, 2025 Dr. Fabiana Anderson , Nurse Practitioner Active S tart: May 14, 2025 End: May 17, 2025 Dr. Tyler Dueñas DO Attending physician Active Start: May 14, 2025 End: May 17, 2025 Team Status: Active Member Role/Relationship Status Dates Dr. Radha Fish MD Primary care physician Activ e Start: May 15, 2025 Dr. Razia Red MD Emergency Departmen t Physician Active Start: May 15, 2025 Dr. Fabiana Anderson , Admitting physician Active Start: May 15, 2025 Dr. Fabiana Anderson , Nurse Practitioner Active S tart: May 15, 2025 Dr. Tyler Dueñas DO Attending physician Active Start: May 15, 2025 Dr. Tyler Dueñas , Nurse Practitioner Active Start: May 15, 2025 Team Status: Active Member Role/Relationship Status Dates Dr. Radha Fish MD Primary care physician Activ e Start: May 16, 2025 Dr. Razia Red MD Emergency Departmen t Physician Active Start: May 16, 2025 Dr. Fabiana Anderson DO Admitting physician Active Start: May 16, 2025 Dr. Fabiana Anderson DO Nurse Practitioner Active S tart: May 16, 2025 Dr. Tyler Dueñas DO Attending physician Active Start: May 16, 2025 Dr. Tyler Dueñas DO Nurse Practitioner Active Start: May 16, 2025 Team Status: Active Member Role/Relationship Status Dates Dr. Radha Fish MD Primary care physician Activ e Start: May 17, 2025 Dr. Razia Red MD Emergency Departmen t Physician Active Start: May 17, 2025 Dr. Fabiana Anderson DO Admitting physician Active Start: May 17, 2025 Dr. Fabiana Anderson DO Nurse Practitioner Active S tart: May 17, 2025 Dr. Tyler Dueñas DO Attending physician Active Start: May 17, 2025 Dr. Tyler Dueñas DO Nurse Practitioner Active Start: May 17, 2025 Team Status: Active Member Role/Relationship Status Dates Dr. Radha Fish MD Primary care physician Activ e Start: May 17, 2025 Dr. West Meyers MD Admitting physician Active Start: May 17, 2025 Dr. West Meyers MD Attending physician Active Start: May 17, 2025 Team Status: Active Member Role/Relationship Status Dates Dr. Radha Fish MD Primary care physician Activ e Start: May 29, 2025 Dr. West Meyers MD Attending physician Active Start: May 29, 2025 Dr. West Meyers MD Referring Provider Active Start: May 29, 2025 Source Comments (unrecognize d section and content) In the event this informatio n is protected by the Federal Confidentiality of Alcohol and Drug Abuse Patient Records regulations: The Federal rules restrict any use of the information to criminally investigate or prosecute any alcohol or drug abuse patient.[facility] the event this information is protected by the Federal Confidentiality of Alcohol and Drug Abuse Patient Records regulations: The Federal rules restrict any use of the information to criminally investigate or prosecute any alcohol or drug abuse patient.[facility] the event this information is protected by the Federal Confidentiality of Alcohol and Drug Abuse Patient Records regulations: The Federal rules restrict any use of the information to criminally investigate or prosecute any alcohol or drug abuse patient.[facility] the event this information is protected by the Federal Confidentiality of Alcohol and Drug Abuse Patient Records regulations: The Federal rules restrict any use of the information to criminally investigate or prosecute any alcohol or drug abuse patient.[facility] the event this information is protected by the Federal Confidentiality of Alcohol and Drug Abuse Patient Records regulations: The Federal rules restrict any use of the information to criminally investigate or prosecute any alcohol or drug abuse patient.[facility] Reason for Visit (unrecogniz ed section and content) Reason Comments Received Outside Medical Records Hair joe Medical & Referral Reason Comments Holter Monitor Application 24-HR Reason Comments Consult Specialty Diagnoses / Procedures Referred By Contac t Referred To Contact [facility] [place] Diagnoses Atrial fibrillation, persistent (HCC) Procedures ECHO ECHO TTHRC R-T 2D W/WOM-MODE COMPL SPEC&COLR D Danny Edmond MD [address] [place] [address] [address] Referral ID Status Reason Start Date Expiration Date V isits Requested Visits Authorized [id number] Closed Auto-Generate d Referral 12/24/2023 12/23/2024 1 [...] BE BASED ON THE PRIMARY CLINICAL RECORDS. [employer] provides no warranty or guarantee of the accuracy or completeness of information in this document.
--- NOTE | 2025-06-15 06:19 | CT_ITS ---
PROCEDURE: STROKE BRAIN/HEAD WITHOUT CONT 06/15/2025 REASON FOR EXAM: NEURO DEFICIT, ACUTE, STROKE SUSPECTED TECHNIQUE: Procedure Code: CTBR.ST Modality: CT Procedure: STROKE BRAIN/HEAD WITHOUT CONT Coronal and Sagittal reconstruction series were provided. One or more dose reduction techniques were used (e.g., Automated exposure control, adjustment of the mA and/or kV according to patient size, use of iterative reconstruction technique. RADIATION DOSE SUMMARY: CTDlvol: 44.9 mGy DLP: 812 mGycm COMPARISON: 05/14/2025. 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 Mild diffuse cortical atrophy, commensurate with the patient's age. Scattered hypodense foci in the periventricular and subcortical white matter suggestive of chronic ischemic white matter disease. Normal size of the ventricles and extra-axial spaces for the patient's age. Normal basal ganglia and thalami. Normal brainstem. Normal cerebellum. There is no demonstrated extra-axial, intraparenchymal, or intraventricular hemorrhage. There are no findings of an acute ischemic infarction. Normal calvarium. There is no demonstrated fracture. Normal soft tissue structures. Normal visualized paranasal sinuses. CT/STROKE Brain/Head without Cont IMPRESSION: No CT evidence for acute brain abnormality. Findings were discussed with Dr. Eric Whitmore at 6:34 am EST. Reading Location: [place] [id number]
--- NOTE | 2025-06-15 06:28 | EX.ED.DYSGE1 ---
HPI History of Present Illness Chief Complaint: Confusion Informant: SNF Narrative Narrative: Patient is 81-year-old female who stays in the transitional care unit secondary to generalized weakness and failure to thrive. She has a past medical history of persistent atrial fibrillation and is on Eliquis. She also has chronic kidney disease and heart failure. Nursing staff on TCU report that they were doing their morning rounds around 6 AM. At that time she was confused and seemed aphasic and they report that she had a arm drift and deviation of her tongue. Secondary to this a rapid response was called. The patient was brought down to the ER for evaluation. Upon arrival to the ER she is awake and alert to person place and time. There does seem to be still mild aphasia but symptoms have overall spontaneously improved. However because the nursing staff did document a sudden mental status change and report a NIH of 6 upon their evaluation in the TCU a stroke alert was activated. The patient is on Eliquis however and therefore is not a TNK candidate Last reported known well was 4 AM by nursing staff [facility] Medical History Physical deconditioning Nonadherence to medication Hypothyroidism Low-grade chronic hyperbilirubinemia Hyponatremia Brain aneurysm Fall Cough UTI (urinary tract infection) Mood disorder Insomnia Hematoma of rectus sheath Right ventricular dilation Elevated C-reactive protein (CRP) Pain in both upper extremities Hemorrhoid CKD (chronic kidney disease), stage III 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 Longstanding persistent atrial fibrillation Foul smelling urine Hx of fracture of femur Dermatitis Nonrheumatic aortic (valve) stenosis Cystitis Osteoporosis Urinary tract infection with hematuria Vision problems Osteopenia Chronic headaches Cataracts, bilateral Back problem Arthritis Seasonal allergies RBBB DDD (degenerative disc disease) Diverticulosis Pure hypercholesterolemia Anemia Pulmonary hypertension Non-rheumatic mitral regurgitation Nonrheumatic tricuspid valve regurgitation Paroxysmal atrial fibrillation Essential hypertension Hyperlipidemia GERD (gastroesophageal reflux disease) Depression Joint pain Headache Snoring Post-nasal drainage Dyspnea on exertion Anxiety Insomnia due to medical condition Hypothyroidism (acquired) Anticoagulation goal of INR 2 to 3 Hypertension Atrial fibrillation with normal ventricular rate 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 Home Medications Medication Instructions Recorded Last Taken Type atorvastatin 20 mg tablet 20 mg PO QHS CHOLESTEROL #90 tabs 06/16/24 Unknown Rx alendronate 70 mg tablet See Rx Instructions .Route 06/21/24 Unknown Rx .COMPLEX #14 tabs Handicap Placard #1 ea 08/15/24 Unknown Rx acetaminophen 500 mg tablet 1,000 mg (2 x 500 mg) PO Q8 #1 TAB 05/17/25 Unknown Rx melatonin 10 mg disintegrating 10 mg PO QHS PRN PRN Insomnia #0 05/17/25 Unknown Rx tablet tabs acyclovir 200 mg capsule 400 mg PO Q8H 06/15/25 Unknown History apixaban 5 mg tablet (Eliquis) 2.5 mg PO BID 06/15/25 Unknown History furosemide 10 mg/mL injection 40 mg IM BID 06/15/25 Unknown History solution levothyroxine 137 mcg tablet 137 mcg PO DAILY 06/15/25 Unknown History (Euthyrox) metoprolol tartrate 75 mg tablet 12.5 mg PO BID 06/15/25 Unknown History pantoprazole 40 mg tablet,delayed 40 mg PO DAILY 06/15/25 Unknown History release potassium chloride 20 mEq 20 meq PO BID 06/15/25 Unknown History tablet,extended release(part/cryst) (Klor-Con M) pramipexole 0.25 mg tablet 0.25 mg PO QHS 06/15/25 Unknown History Allergy/AdvReac Type Severity Reaction Status Date / Time bee venom protein (honey bee) Allergy Unknown UNKNOWN Verified 06/15/25 06:41 propoxyphene (From Allergy Unknown UNKNOWN Verified 06/15/25 06:41 Darvocet-N) codeine AdvReac Other Verified 06/15/25 06:41 Family History Mother Heart disease High cholesterol Osteoporosis CVA (cerebral vascular accident) Hypertension Father Hypertension Alcohol abuse Sister Asthma Hypertension Thyroid disorder Surgical History History of cataract extraction History of cardioversion (~07/15/22) History of total left knee replacement Status post surgical manipulation of ankle joint Status post total left knee replacement Social History household members: none Smoking Status: Never smoker alcohol intake: never substance use type: does not use what type of physical activity do you participate in: none ROS ROS ED Constitutional Constitutional ED: Denies chills or fever(s) Eyes Eyes: Denies change in vision ENT ENT ED: Denies sore throat Cardiovascular Cardiovascular: Denies chest pain Respiratory/Chest Respiratory/Chest: Denies cough or dyspnea Gastrointestinal Gastrointestinal: Denies abdominal pain, diarrhea, nausea or vomiting Genitourinary Genitourinary ED: Denies dysuria Musculoskeletal Musculoskeletal: Denies myalgias Neurologic Neurologic: Denies headache(s) or weakness Hematologic/Lymphatic Hematologic/Lymphatic: Reports easy bleeding and easy bruising EXAM Physical Exam Const Vital Signs: 06/15/25 06:08 06/15/25 06:14 06/15/25 06:44 Temperature 97.3 F L Temperature Source Oral Pulse Rate 102 H 100 Respiratory Rate 16 16 Blood Pressure 101/59 L 97/68 Blood Pressure Mean 73 77 Pulse Ox 92 94 Oxygen Delivery Method Room Air Room Air Room Air 06/15/25 07:14 06/15/25 08:00 Temperature Temperature Source Pulse Rate 87 102 H Respiratory Rate 16 18 Blood Pressure 88/59 L 108/75 Blood Pressure Mean 68 86 Pulse Ox 94 96 Oxygen Delivery Method Room Air Positive well nourished and well developed General Appearance ED: well developed HEENT Reports dry mucous membranes HEENT Narrative: Normocephalic atraumatic No tongue or lip swelling no oral lesions no airway edema or compromise Mucous membranes are dry and tacky No tongue or cheek biting to suggest seizure activity Mouth ED: Yes dry mucous membranes Mouth: dry mucous membranes Eyes PERRL and EOMs intact bilaterally General Eye ED: Negative for scleral icterus Neck supple Neck Narrative: No nuchal rigidity or meningeal signs Resp normal respiratory effort Resp Narrative: Breath sounds are diminished throughout with faint rhonchi noted in the bilateral bases but no signs of respiratory distress Cardio Rate: tachycardic and other Other Details: Irregularly irregular rhythm with slightly tachycardic rate consistent with history of chronic atrial fibrillation GI normal to inspection, nondistended, normoactive bowel sounds, non-tender, non-distended and no masses GI Narrative: No voluntary guarding or rigidity or pulsatile mass No peritoneal signs Auscultation: normoactive bowel sounds Palpation: soft Extremity Extremity Narrative: +1-2 pitting edema to the bilateral lower extremities that is equal and symmetric and consistent with history of CHF Neuro oriented x3 Neuro Narrative: GCS of 15 Patient is awake alert and oriented person place and time She received NIH stroke scale score of 1 due to mild aphasia secondary to difficulty naming objects while in the ER Otherwise no focal neurologic deficit such as unilateral extremity weakness facial droop or dysarthria Sensorium / Orientation: alert Psych Psych Narrative: Patient has a nervous/anxious affect Mood & Affect: anxious Skin Skin Narrative: Patient has areas of ecchymosis to her arms and legs consistent with history of blood thinner use but no secondary findings to suggest infection MDM MDM MDM Narrative Medical decision making narrative: Patient arrived to the ER in atrial fibrillation but this is chronic for her. Based on her reported confusion with extremity weakness and aphasia while in the TCU and reported stroke scale score of 6 by nursing staff a stroke alert was activated. However she has had spontaneous improvement of symptoms by the time she is reached to ER and she is not a TNK candidate as she is on anticoagulation. Noncontrast CT revealed no spontaneous brain bleed. However the CTA confirmed a very large essentially 16 mm aneurysm. The case was discussed with [facility] neurologist Dr. Daniel. He states that he agrees that she is not a TNK candidate but does state that if she wants intervention regarding his aneurysm that it is large enough where she would require transfer to [facility] for evaluation by neurosurgery. We also discussed that there are other reasons she could have potential changes in mental status such as pneumonia or hypoxia or urinary tract infection and therefore he recommended a further metabolic workup. The patient does not have a white count or left shift her x-ray does not show pneumonia her kidney function is elevated with a creatinine of 2.2 but this is at baseline. Her symptoms have remained stable since arrival in the ER The case was discussed with family members. At this time they are still deciding whether she wants evaluation for potential surgery. Therefore as the patient and family has not made a decision about whether she would potentially be, hospice and be transition back to TCU or sent to [facility] for neurosurgical evaluation should be signed out to the day physician Dr. Ferris. History & Record Review Discussion w/independent historian: Patient and Other (TCU nursing staff) Additional record(s) reviewed:: Prior inpatient record and Prior labs Lab Data Attestation: I reviewed the patient's lab results. Labs: Laboratory Results - last 24 hr 06/15/25 06/15/25 06:14 06:40 WBC 4.1 L RBC 3.88 L Hgb 11.3 L Hct 36.7 L MCV 94.6 MCH 29.1 MCHC 30.8 L RDW Std Deviation 79.3 H RDW Coeff of Payal 23.4 H Plt Count 87 L MPV 10.3 Immature Gran % (Auto) 0.200 Neut % (Auto) 57.2 Lymph % (Auto) 16.3 L [place] % (Auto) 24.6 H Eos % (Auto) 0.7 Baso % (Auto) 1.0 Absolute Neuts (auto) 2.3 Absolute Lymphs (auto) 0.66 L Nucleated RBC % 0.7 Platelet Estimate MOD DEC Anisocytosis 1+ Acanthocytes (Spur) 2+ PT 24.2 H INR 2.1 APTT 51.6 H Sodium 135 Potassium 5.8 H Chloride 104 Carbon Dioxide 17.2 L Anion Gap 13 BUN 60 H Creatinine 2.20 H Estim Creat Clear Calc 19.78 L Est GFR (MDRD) Non-Af 21 L BUN/Creatinine Ratio 27.1 H Glucose 74 Calcium 8.8 POC Glucose 83 Radiography Diagnostic Testing: Clinical Impression(s) from Imaging Studies Chest X-Ray 06/15/25 06:15 IMPRESSION: Hyperexpanded lungs with chronic interstitial changes, no superimposed acute pulmonary process Stable cardiomegaly Reading Location: [facility] Head/Neck CTA 06/15/25 06:15 IMPRESSION: There is an 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 There is a 0.4 x 0.48 cm aneurysm in a distal branch of the right anterior cerebral within a sulcus, image [id number]. There is vascular abnormality in the superior right frontal cortex measuring approximately 0.8 x 0.7 cm, image [id number]/522. Neurosurgical consultation is recommended. Critical results were discussed with Dr. Zamora by Dr. Dawn at the time of dictation. Reading [facility] Brain [facility] 06/15/25 06:19 IMPRESSION: No CT evidence for acute brain abnormality. Findings were discussed with Dr. Eric Whitmore at 6:34 am EST. Reading Location: [place] [address] Chest x-ray as interpreted by the emergency medicine physician reveals cardiomegaly with interstitial changes but no acute infiltrate or pneumothorax Discharge Plan Triage Chief Complaint: Confusion ED Provider: Eric Whitmore Dx/Rx/DC Orders Clinical Impression: TIA (transient ischemic attack), Chronic atrial fibrillation, Current use of detention anticoagulation, Chronic kidney disease, Brain aneurysm Prescriptions: No Action acetaminophen 500 mg Tablet 1,000 mg PO Q8 Qty: 1 0RF melatonin 10 mg Tablet,Disintegrating 10 mg PO QHS PRN PRN (Reason: Insomnia) Qty: 0 0RF Eliquis 5 mg Tablet 2.5 mg PO BID potassium chloride [Klor-Con M20] 20 mEq tablet,ER particles/crystals 20 meq PO BID furosemide 10 mg/mL solution 40 mg IM BID pramipexole 0.25 mg tablet 0.25 mg PO QHS pantoprazole 40 mg tablet,delayed release (DR/EC) 40 mg PO DAILY levothyroxine [Euthyrox] 137 mcg tablet 137 mcg PO DAILY acyclovir 200 mg capsule 400 mg PO Q8H metoprolol tartrate 75 mg tablet 12.5 mg PO BID atorvastatin 20 mg tablet 20 mg PO QHS Qty: 90 3RF alendronate 70 mg tablet See Rx Instructions .ROUTE .COMPLEX Qty: 14 0RF Dose Instruction: TAKE 1 TABLET BY MOUTH EVERY WEEK Patient Comments: has "been unfaithful to it" Rx Instructions: TAKE 1 TABLET BY MOUTH EVERY WEEK (DME) Handicap Placard See Rx Instructions .ROUTE .MEDSUPPLY Qty: 1 0RF Rx Instructions: As directed, length of time 3 years Primary Care Provider: Agnieszka Fish Referrals: Agnieszka Fish MD [Primary Care Provider, Internal Medicine] Print Language: Dominican D/C Safety Score for UGIB Assessment [place] Bleeding Score (GBS): Stratifies upper GI bleeding patients who are "low-risk" and candidates for outpatient management. Hemoglobin, BUN, Recent Vital Signs: Hgb 11.3 g/dL (12.0-15.0) L 06/15/25 06:40 BUN 60 mg/dL (4-19) H 06/15/25 06:40 Pulse Rate 102 Blood Pressure 108/75 Score Interpretation: Score of 0: A GBS of 0 is a “Low Risk” GI bleed, and is highly sensitive (99.6% in a 2007 retrospective study) for predicting which patients did not require any “medical intervention”: blood transfusion, endoscopy, or surgery. This was confirmed in a 2009 [facility] study where patients with a score of 0 were actually discharged and had no GI bleeding mortality at 6 month followup Score above 0: A GBS greater than zero suggests a “High Risk” GI bleed that is likely to require “medical intervention”: transfusion, endoscopy, or surgery. A higher GBS also correlated with a higher likelihood of needing intervention Scores >/= 6 are associated with >50% risk of needing intervention D/C Safety Score for LGIB Assessment Assessment Tool: Readmission and adverse event risk in patients with acute lower GI bleeding. Hemoglobin and Recent Vital Signs: Hgb 11.3 g/dL (12.0-15.0) L 06/15/25 06:40 Pulse Rate 102 06/15/25 08:00 Blood Pressure 108/75 06/15/25 08:00 Score Interpretation: Probability Percentage of safe discharge (absence of rebleeding, blood transfusion, therapeutic intervention, 28 day readmission, or ) Score of 8 or below: Consider discharge, with appropriate precautions. Score of 9 or above: Discharge NOT recommended. Consider admission with further workup and resuscitation as necessary.
[2025-06-15 06:44] VITALS: BP 97/68; PULSE 100; RESP 16; O2SAT 94
[2025-06-15 06:53] LABS: Hematocrit 36.7 % (37-47); Hemoglobin 11.3 g/dL (12.0-15.0); Immature Granulocytes Count 0.010 X10^3/uL (0.0-0.0); Mean Corp Hgb Conc 30.8 g/dL (32-36); Mean Corpuscular Volume 94.6 fL (81-99); Mean Platelet Vol. 10.3 fl (6.2-12.0); NRBC Flagged by Analyzer 0.7 % (0-5); POSITIVE COUNT YES; POSITIVE MORPHOLOGY YES; Platelet Count 87 K/mm3 (150-450); RBC Distribution Width CV 23.4 % (11.6-14.6); RBC Distribution Width SD 79.3 fl (35.1-43.9); Red Blood Count 3.88 M/mm3 (4.2-5.4); White Blood Count 4.1 K/mm3 (4.4-11.0)
[2025-06-15 07:05] LABS: Prothrombin Time (Protime)PT. 24.2 SECONDS (11.7-14.9)
[2025-06-15 07:06] LABS: Partial Thromboplast Time 51.6 Seconds (24.1-36.2)
[2025-06-15 07:14] VITALS: BP 88/59; PULSE 87; RESP 16; O2SAT 94
[2025-06-15 07:17] LABS: Differential Indicated SCAN CRITERIA MET
--- NOTE | 2025-06-15 07:24 | ED.RN ---
0709- THIS RN LEFT VM WITH DAUGHTER CELL # [id number]- THIS RN LEFT VM AT HOME # WAITING RETURN CALL
[2025-06-15 07:30] LABS: Anion Gap 13 (5-15); BUN 60 mg/dL (4-19); BUN/Creat Ratio 27.1 RATIO (10-20); Calcium,Total 8.8 mg/dL (7.6-11.0); Carbon Dioxide 17.2 mmol/L (21.0-32.0); Chloride 104 mmol/L (98-108); Estimated Creatinine Clearance 19.78 ml/min (50-250); Glucose 74 mg/dL (70-99); Potassium 5.8 mmol/L (3.3-5.1)
[2025-06-15 07:50] LABS: Acanthocytes 2+
[2025-06-15 07:53] LABS: Anisocytosis 1+
[2025-06-15 08:00] VITALS: BP 108/75; PULSE 102; RESP 18; O2SAT 96
--- NOTE | 2025-06-15 08:12 | ED.RN ---
[facility] CANCELLED PER DR LINDA
--- NOTE | 2025-06-15 08:37 | ED.RN ---
THIS RN TALKS WITH FAMILY AND PT AGAIN REGARDING DECISION. PT APPEARS SLIGHTLY MORE CONFUSED. PT STATES " I CAN'T MAKE THESE DECISIONS WITHOUT TALKING TO FAMILY". NIECE AT BEDSIDE STATES " WE HAVE TALKED TO FAMILY". DR CARSON
[2025-06-15 09:00] VITALS: BP 106/70; PULSE 100; RESP 18; O2SAT 96
[2025-06-15 09:34] VITALS: BP 102/60; PULSE 99; RESP 18; TEMP 36.6; O2SAT 96
== END 2025-06-15 09:53 | disposition home or self-care (01) ==
PROVIDERS: Emergency Provider Emergency Medicine; PCP Internal Medicine; Visit Provider Emergency Medicine
DX: I67.1 Cerebral aneurysm, nonruptured (principal); I13.0 Hypertensive heart and chronic kidney disease with heart failure and stage 1 through stage 4 chronic kidney disease, or unspecified chronic kidney disease; I50.32 Chronic diastolic (congestive) heart failure; I48.0 Paroxysmal atrial fibrillation; I48.11 Longstanding persistent atrial fibrillation; N18.30 Chronic kidney disease, stage 3 unspecified; R62.7 Adult failure to thrive; E78.00 Pure hypercholesterolemia, unspecified; G45.9 Transient cerebral ischemic attack, unspecified; R41.82 Altered mental status, unspecified; Z79.01 Long term (current) use of anticoagulants; Z79.899 Other long term (current) drug therapy; Z79.890 Hormone replacement therapy; E03.9 Hypothyroidism, unspecified; K21.9 Gastro-esophageal reflux disease without esophagitis; R47.01 Aphasia; Z51.5 Encounter for palliative care; R29.701 NIHSS score 1
CPT/HCPCS: 70450; 70496; 70498; 71045; 80048; 82962; 85025; 85610; 85730; 93005; 99284; Q9967; A4216